=== PATIENT | female | born 1980 | race Caucasian/White ===

== ENCOUNTER 2022-08-25 20:44 | Observation (INO) | payer OTHER, SELFPAY ==
[2022-08-25 20:55] VITALS: BP 115/88; PULSE 88; RESP 18; TEMP 36.6; O2SAT 98; BMI 44.6
--- NOTE | 2022-08-25 21:05 | ED.SKABFB1 ---
HPI - Skin/Abscess/Foreign Bdy General Chief complaint: Skin/Abscess/Foreign Body Stated complaint: POSS SEPSIS Time Seen by Provider: 08/25/22 21:03 Source: patient Mode of arrival: walk-in Limitations: no limitations History of Present Illness HPI narrative: I and D abscess left thigh/buttocks yesterday at [facility]. Given dose of Clindamycin in the ER yesterday. Prescribed Clindamycin but states pharmacy did not have clindamycin. Was seen by her PCP today in the office with fever and vital signs concerning for sepsis and was advised to come to the hospital for evaluation. Still has pain at her incision site. States she squeezed it earlier and got mostly blood. Used Ibuprofen before coming in for her fever. Denies nausea or vomiting. She is diabetic Related Data Home Medications Medication Instructions Recorded Confirmed alprazolam 1 mg tablet (Xanax) 1 mg PO BID 08/25/22 08/25/22 aspirin 81 mg tablet,delayed 81 mg PO DAILY 08/25/22 08/25/22 release atorvastatin 80 mg tablet 80 mg PO DAILY 08/25/22 08/25/22 buspirone 5 mg tablet 5 mg PO BID 08/25/22 08/25/22 clopidogrel 75 mg tablet (Plavix) 75 mg PO DAILY 08/25/22 08/25/22 empagliflozin 25 mg tablet 25 mg PO DAILY 08/25/22 08/25/22 (Jardiance) ezetimibe 10 mg tablet 10 mg PO DAILY 08/25/22 08/25/22 hydroxyzine pamoate 25 mg capsule 25 mg PO BID 08/25/22 08/25/22 insulin glargine 100 unit/mL (3 15 unit subcut QAM 08/25/22 08/25/22 mL) subcutaneous pen (Lantus Solostar U-100 Insulin) losartan 25 mg tablet 25 mg PO DAILY 08/25/22 08/25/22 metformin 1,000 mg tablet 1,000 mg PO BID 08/25/22 08/25/22 metoprolol succinate 25 mg 25 mg PO DAILY 08/25/22 08/25/22 tablet,extended release 24 hr munjuaro 10 mg IM .weekly 08/25/22 08/25/22 omeprazole 20 mg capsule,delayed 20 mg PO DAILY 08/25/22 08/25/22 release Allergies Allergy/AdvReac Type Severity Reaction Status Date / Time No Known Drug Allergies Allergy Verified 08/25/22 21:01 Review of Systems ROS Status of ROS 10 or more systems reviewed and unremarkable except as noted in history and below Constitutional Reports: fever and chills [facility] Medical History (Updated 08/25/22 @ 22:05 by Carlos Mack MD) Surgical History (Updated 08/25/22 @ 21:25 by Fletcher Jeff) Exam Constitutional Vital Signs - 24 hr 08/25/22 20:55 Temperature 97.9 F Pulse Rate [Monitor] 88 Respiratory Rate 18 Blood Pressure [Right Arm] 115/88 H Pulse Oximetry 98 Oxygen Delivery Method Room Air Common normals: no apparent distress, oriented x3, no limitations and alert HENMT Common normals: normocephalic and head/scalp atraumatic Eye Common normals: EOMs intact bilaterally and conjunctivae normal Respiratory Common normals: normal respiratory effort, no retractions, no use of accessory muscles and clear to auscultation bilaterally Cardio Common normals: regular rate, regular rhythm, S1 normal heart sound and S2 normal heart sound GI Common normals: Normal to inspection, nondistended, normoactive bowel sounds present and non-tender Extremity Other: incision left upper thigh/buttocks region. No surrounding erythema. site is tender Neuro Common normals: oriented x3, moves all extremities, no focal motor deficits and no sensory deficits noted Psych Appearance: grossly normal Course Vital Signs Vital signs: Vital Signs Temperature 97.9 F 08/25/22 20:55 Pulse Rate 88 08/25/22 20:55 Respiratory Rate 18 08/25/22 20:55 Blood Pressure 115/88 H 08/25/22 20:55 Pulse Oximetry 98 08/25/22 20:55 Oxygen Delivery Method Room Air 08/25/22 20:55 Temperature 97.9 F 08/25/22 20:55 Pulse Rate 88 08/25/22 20:55 Respiratory Rate 18 08/25/22 20:55 Blood Pressure 115/88 H 08/25/22 20:55 Pulse Oximetry 98 08/25/22 20:55 Oxygen Delivery Method Room Air 08/25/22 20:55 MDM - Skin/Abscess/Foreign Bdy MDM Narrative Medical decision making narrative: patient presents complaining of pain and fever. s/p I and D left thigh/buttocks abscess last pM. Still has pain and drainage. Fever at home and tachycardia when she was seen by her PCP. Not able to get clindamycin that was prescribed for her and has not had antibiotics since last PM. CBC, BMP results discussed with hospitalist. patient given morphine for pain and clindamycin 900mg IVPB. Patient admitted for observation to med/surg Lab Data Labs: Lab Results 08/25/22 Range/Units 21:10 WBC 8.9 (4.0-11.0) 10^3/uL RBC 5.36 (4.20-5.40) 10^6/uL Hgb 15.8 (12.0-16.0) g/dL Hct 46.8 (36.0-48.0) % MCV 87.3 (81.0-99.0) fL MCH 29.5 (26.7-34.0) pg MCHC 33.8 (29.9-35.2) g/dL RDW 13.4 (11.0-15.0) % Plt Count 254 (150-450) 10^3/uL MPV 10.1 (9.5-13.5) fL Neut % (Auto) 54.4 (43.0-75.0) % Lymph % (Auto) 36.2 (20.5-60.0) % [place] % (Auto) 5.3 (1.7-12.0) % Eos % (Auto) 3.0 (0.9-7.0) % Baso % (Auto) 0.8 (0.2-2.0) % Neut # (Auto) 4.9 (1.4-6.5) 10^3/uL Lymph # (Auto) 3.2 (1.2-3.8) 10^3/uL [place] # (Auto) 0.5 (0.3-0.8) 10^3/uL Eos # (Auto) 0.3 (0.0-0.7) 10^3/uL Baso # (Auto) 0.1 (0.0-0.1) 10^3/uL Abs Immat Gran (auto) 0.03 (0.00-0.03) 10^3/uL Imm/Tot Granulo (auto) 0.3 (0.0-0.5) % Sodium 140 (136-145) mmol/L Potassium 3.9 (3.5-5.1) mmol/L Chloride 104 (98-107) mmol/L Carbon Dioxide 24.5 (21.0-32.0) mmol/L Anion Gap 15.4 BUN 22.0 H (7.0-18.0) mg/dL Creatinine 0.82 (0.55-1.02) mg/dL Est GFR ( Amer) >60 (>=60) Est GFR (Non-Af Amer) >60 (>=60) BUN/Creatinine Ratio 26.8 Glucose 115 H (74-106) mg/dL Lactate 1.6 (0.4-2.0) mmol/L Calcium 9.6 (8.5-10.1) mg/dL Total Bilirubin 0.4 (0.2-1.0) mg/dL AST 25 (15-37) U/L ALT 23 (14-59) U/L Alkaline Phosphatase 147 H (46-116) U/L Total Protein 7.9 (6.4-8.2) g/dL Albumin 3.9 (3.4-5.0) g/dL Globulin 4.0 g/dL Albumin/Globulin Ratio 1.0 Discharge Plan Discharge Chief Complaint: Skin/Abscess/Foreign Body Clinical Impression: Abscess of buttock, left Patient Disposition: Admitted as Observation
[2022-08-25 21:18] LABS: Basophils Absolute Auto 0.1 10^3/uL (0.0-0.1); Basophils Percent Auto 0.8 % (0.2-2.0); Eosinophils Absolute Auto 0.3 10^3/uL (0.0-0.7); Hematocrit 46.8 % (36.0-48.0); Hemoglobin 15.8 g/dL (12.0-16.0); Immature Granulocytes Abs Auto 0.03 10^3/uL (0.00-0.03); Immature Granulocytes Pct Auto 0.3 % (0.0-0.5); Lymphocytes Absolute Auto 3.2 10^3/uL (1.2-3.8); Lymphocytes Percent Auto 36.2 % (20.5-60.0); Mean Corpuscular HGB Conc 33.8 g/dL (29.9-35.2); Mean Corpuscular Hemoglobin 29.5 pg (26.7-34.0); Mean Corpuscular Volume 87.3 fL (81.0-99.0); Mean Platelet Volume 10.1 fL (9.5-13.5); Monocytes Absolute Auto 0.5 10^3/uL (0.3-0.8); Monocytes Percent Auto 5.3 % (1.7-12.0); Neutrophils Absolute Auto 4.9 10^3/uL (1.4-6.5); Neutrophils Percent Auto 54.4 % (43.0-75.0); Platelet Count 254 10^3/uL (150-450); Red Blood Count 5.36 10^6/uL (4.20-5.40); Red Cell Distribution Width 13.4 % (11.0-15.0); White Blood Count 8.9 10^3/uL (4.0-11.0)
[2022-08-25] MEDS: CLINDAMYCIN PHOSPHATE/D5W 900 MG/50 ML PIGGYBACK 100 MG IV (21:23)
[2022-08-25 21:32] LABS: Alanine Aminotransferase 23 U/L (14-59); Albumin Level 3.9 g/dL (3.4-5.0); Alkaline Phosphatase 147 U/L (46-116); Anion Gap 15.4; Aspartate Amino Transferase 25 U/L (15-37); BUN Creatinine Ratio 26.8; Bilirubin Total 0.4 mg/dL (0.2-1.0); Calcium 9.6 mg/dL (8.5-10.1); Carbon Dioxide 24.5 mmol/L (21.0-32.0); Chloride 104 mmol/L (98-107); Estimated GFR (African America >60 (>=60); Estimated GFR (Non-African Ame >60 (>=60); Glucose 115 mg/dL (74-106); Potassium 3.9 mmol/L (3.5-5.1); Sodium 140 mmol/L (136-145); Total Protein 7.9 g/dL (6.4-8.2)
[2022-08-25 21:35] LABS: Lactate/Lactic Acid 1.6 mmol/L (0.4-2.0)
[2022-08-25] MEDS: ONDANSETRON PF 4 MG/2 ML VIAL IV (21:53)
[2022-08-25] MEDS: 0.9 % SODIUM CHLORIDE 1,000 ML 999 ML IV (21:53)
[2022-08-25] MEDS: MORPHINE SULFATE 4 MG/ML VIAL IV (21:53)
[2022-08-25 22:30] VITALS: BP 96/67; PULSE 80; RESP 14; TEMP 36.6; O2SAT 95
[2022-08-25 22:36] VITALS: BP 96/67; PULSE 80; RESP 14; TEMP 36.4; O2SAT 95; BMI 45.6
[2022-08-25 22:38] VITALS: PULSE 86; RESP 16; O2SAT 99
[2022-08-25 23:12] VITALS: BP 96/67; PULSE 80; RESP 14; TEMP 36.4; O2SAT 95
[2022-08-25 23:20] VITALS: O2SAT 94
[2022-08-26] MEDS: LACTATED RINGER'S SOLUTION 1,000 ML 125 ML IV ×2 (01:02→10:16)
[2022-08-26] MEDS: MORPHINE SULFATE 2 MG/ML SYRINGE IV ×4 (01:12→14:26)
[2022-08-26] MEDS: CLINDAMYCIN PHOSPHATE/D5W 300 MG/50 ML PIGGYBACK 100 MG IV ×3 (01:15→12:53)
[2022-08-26 04:40] VITALS: O2SAT 93
[2022-08-26] MEDS: ONDANSETRON PF 4 MG/2 ML VIAL IV ×2 (05:30→12:55)
[2022-08-26 06:00] VITALS: BP 102/76; PULSE 67; RESP 16; TEMP 36.6; O2SAT 96
[2022-08-26] MEDS: HYDROXYZINE PAMOATE 25 MG CAPSULE PO (09:02)
[2022-08-26] MEDS: ALPRAZOLAM 1 MG TABLET PO (09:02)
[2022-08-26] MEDS: OMEPRAZOLE 20 MG CAPSULE.DR PO (09:02)
[2022-08-26] MEDS: CANAGLIFLOZIN 100 MG TABLET 300 MG PO (09:02)
[2022-08-26] MEDS: EZETIMIBE 10 MG TABLET PO (09:02)
[2022-08-26] MEDS: BUSPIRONE HCL 10 MG TABLET 5 MG PO (09:03)
[2022-08-26] MEDS: METFORMIN HCL 500 MG TABLET 1000 MG PO (09:04)
[2022-08-26] MEDS: METOPROLOL SUCCINATE 25 MG TAB.ER.24H PO (09:04)
[2022-08-26] MEDS: LOSARTAN POTASSIUM 25 MG TABLET PO (09:04)
[2022-08-26] MEDS: ATORVASTATIN CALCIUM 40 MG TABLET 80 MG PO (09:04)
[2022-08-26] MEDS: CLOPIDOGREL BISULFATE 75 MG TABLET PO (09:04)
[2022-08-26] MEDS: ENOXAPARIN SODIUM 40 MG/0.4 ML SYRINGE SUBQ (09:04)
[2022-08-26] MEDS: INSULIN DETEMIR 300 UNIT/3 ML INSULN.PEN 10 UNIT SUBQ (09:05)
--- NOTE | 2022-08-26 12:42 | CM.NOTE ---
Rounds made with charly Heller for discharge today.
--- NOTE | 2022-08-26 14:56 | P.HP_ITS ---
H&P: HPI History of Present Illness Chief complaint: POSS SEPSIS,abscess of buttock-left Narrative: HPI and hospital course: 41 y o with hx of T2 DM, CAD and recurrent cutaneous abscess developed skin asbcess over her left inner thigh and had I&D for it at [facility] and was sent home from ED afterwards but then she continued to have pain, fever, diaphoresis and purulent discharge from abscess and was sent to ED from office when I saw her last evening for possible sepsis. She was evaluated in ED and was admitted for observation. Patient received IV fluids, IV clindamycin and narcotics for pain control. No overnight events. Stable hemodynamics. Medically stable for discharge. ' Admission Diagnosis Cellulitis/abscess of buttocks HTN T2 DM CAD HLD JARAD Discharge Diagnosis as above Discharge status stable Review of Systems ROS Status of ROS 10 or more systems reviewed and unremarkable except as noted in history and below [facility] Medical History Surgical History Family History Mother Family history of CHF (congestive heart failure) Father Family history of hypertension Family/Other Family history of hypertension Social History Do you think of yourself as: straight/heterosexual Gender Identity: female Meds Home Medications and Allergies Home Medications Medication Instructions Recorded Confirmed Type alprazolam 1 mg tablet (Xanax) 0.5 mg PO BID 08/25/22 08/26/22 History aspirin 81 mg tablet,delayed 81 mg PO DAILY 08/25/22 08/25/22 History release atorvastatin 80 mg tablet 80 mg PO DAILY 08/25/22 08/25/22 History buspirone 5 mg tablet 5 mg PO BID 08/25/22 08/25/22 History clopidogrel 75 mg tablet (Plavix) 75 mg PO DAILY 08/25/22 08/25/22 History empagliflozin 25 mg tablet 25 mg PO DAILY 08/25/22 08/25/22 History (Jardiance) ezetimibe 10 mg tablet 10 mg PO DAILY 08/25/22 08/25/22 History hydroxyzine pamoate 25 mg capsule 25 mg PO BID 08/25/22 08/25/22 History insulin glargine 100 unit/mL (3 15 unit subcut .QHS 08/25/22 08/26/22 History mL) subcutaneous pen (Lantus Solostar U-100 Insulin) losartan 25 mg tablet 25 mg PO DAILY 08/25/22 08/25/22 History metformin 1,000 mg tablet 1,000 mg PO BID 08/25/22 08/25/22 History metoprolol succinate 25 mg 25 mg PO DAILY 08/25/22 08/25/22 History tablet,extended release 24 hr munjuaro 10 mg IM .weekly 08/25/22 08/25/22 History omeprazole 20 mg capsule,delayed 20 mg PO DAILY 08/25/22 08/25/22 History release clindamycin HCl 300 mg capsule 300 mg PO Q6H 7 days #28 caps 08/26/22 Rx gabapentin 400 mg capsule 400 mg PO .q8 08/26/22 08/26/22 History Allergies Allergy/AdvReac Type Severity Reaction Status Date / Time No Known Drug Allergies Allergy Verified 08/25/22 21:01 Exam Constitutional Vital Signs - 24 hr 08/25/22 20:55 08/25/22 22:30 08/26/22 06:00 Temperature 97.9 F 97.8 F 97.8 F Pulse Rate 80 67 Pulse Rate [Monitor] 88 Respiratory Rate 18 14 16 Blood Pressure [Left Arm] 102/76 Blood Pressure [Right Arm] 115/88 H 96/67 Pulse Oximetry 98 95 96 Oxygen Delivery Method Room Air 08/25/22 23:12 08/25/22 22:36 08/25/22 22:36 Temperature 97.6 F 97.6 F Pulse Rate 80 80 Pulse Rate [Monitor] 80 Respiratory Rate 14 14 Blood Pressure [Left Arm] Blood Pressure [Right Arm] 96/67 96/67 Pulse Oximetry 95 95 95 Oxygen Delivery Method Room Air Room Air Room Air 08/25/22 22:38 08/25/22 23:20 08/26/22 04:40 Temperature Pulse Rate Pulse Rate [Monitor] 86 Respiratory Rate 16 Blood Pressure [Left Arm] Blood Pressure [Right Arm] Pulse Oximetry 99 94 L 93 L Oxygen Delivery Method Room Air Room Air Room Air Documenting provider has reviewed patient's vital signs: yes Common normals: no apparent distress General appearance: cooperative Nutritional appearance: obese [facility] Common normals: normocephalic and head/scalp atraumatic Eye Common normals: conjunctivae normal and no scleral icterus Respiratory Common normals: normal respiratory effort, no use of accessory muscles and clear to auscultation bilaterally Cardio Common normals: no JVD, regular rhythm, S1 normal heart sound, S2 normal heart sound and no murmurs GI Common normals: Normal to inspection, nondistended, normoactive bowel sounds present, non-tender and no hepatosplenomegaly Extremity Other: Small area of induration, small open wound - no sig drainage or blood. Painful to touch location left inner thigh close to buttocks Neuro Common normals: oriented x3, moves all extremities, no focal motor deficits and no sensory deficits noted Sensorium/orientation: awake and alert Psych Common normals: mental status grossly normal, thought process normal, cooperative, denies hallucinations, denies homicidal ideation and denies suicidal ideation Results Labs Labs: Short CBC 08/25/22 Range/Units 21:10 WBC 8.9 (4.0-11.0) 10^3/uL Hgb 15.8 (12.0-16.0) g/dL Hct 46.8 (36.0-48.0) % Plt Count 254 (150-450) 10^3/uL BMP 08/25/22 21:10 Sodium 140 Potassium 3.9 Chloride 104 Carbon Dioxide 24.5 BUN 22.0 H Creatinine 0.82 Glucose 115 H Calcium 9.6 Liver Function 08/25/22 Range/Units 21:10 Total Bilirubin 0.4 (0.2-1.0) mg/dL AST 25 (15-37) U/L ALT 23 (14-59) U/L Alkaline Phosphatase 147 H (46-116) U/L Albumin 3.9 (3.4-5.0) g/dL Assessment and Plan Assessment and Plan (1) CAD (coronary artery disease): Assessment and Plan: stable. No CP, SOB. c/W asa,plavix (2) Abscess of buttock, left: Assessment and Plan: stable hemodynamics. Improving. Poorly controlled pain - called in percocet for pain control. Patient to f/u with PCP in one week. C/w clindamycin (3) Diabetes: Assessment and Plan: c/w home meds Qualifiers: Diabetes mellitus type: type 2 Diabetes mellitus ocean transportation intermediary insulin use: with shelter use Diabetes mellitus complication status: without complication Qualified Code(s): E11.9 - Type 2 diabetes mellitus without complications; Z79.4 - custodial (current) use of insulin (4) HTN (hypertension): Assessment and Plan: stable. c/w home meds Qualifiers: Hypertension type: primary hypertension Qualified Code(s): I10 - Essential (primary) hypertension (5) HLD (hyperlipidemia): Assessment and Plan: c/w lipitor and zetia (6) JARAD (generalized anxiety disorder): Assessment and Plan: c/w home meds. Outpatient f/u
--- NOTE | 2022-08-27 15:31 | CM.DCFOLLOWU ---
Person spoke with: Lyssa How are you feeling? still very weak How is your pain? Better controlled today Did you understand your discharge instructions? yes Do you have any questions about your discharge instructions? No Were you given any prescriptions at discharge? Yes Were you able to get your prescriptions filled? Yes Do you understand how to take your medications as ordered? Yes Do you have any questions about your follow up appointment and do you plan to keep your follow up appointment? No Yanet is out of town but left message with office today awaiting to schedule. Is there anything else that you would like to discuss? No Questions/Comments/Concerns/Other: None
== END 2022-08-26 15:49 | disposition home or self-care (01) ==
LOC: ER 22:05 → MS 22:20
PROVIDERS: Admitting Provider Internal Medicine; Emergency Provider Internal Medicine; PCP Nurse Practitioner; Visit Provider Internal Medicine
DX: L03.317 Cellulitis of buttock (principal); L02.31 Cutaneous abscess of buttock; I10 Essential (primary) hypertension; E11.9 Type 2 diabetes mellitus without complications; I25.10 Atherosclerotic heart disease of native coronary artery without angina pectoris; E78.5 Hyperlipidemia, unspecified; F41.1 Generalized anxiety disorder; E66.9 Obesity, unspecified; Z68.42 Body mass index [BMI] 45.0-49.9, adult; Z79.82 Long term (current) use of aspirin; Z79.899 Other long term (current) drug therapy; Z79.4 Long term (current) use of insulin; Z79.84 Long term (current) use of oral hypoglycemic drugs
CPT/HCPCS: 36415; 80053; 83605; 85025; 87040; 94761; 96372; 96374; 96375; 96376; 99285; G0378

== ENCOUNTER 2022-10-02 17:29 | Emergency (ER) | payer OTHER, SELFPAY ==
[2022-10-02 17:31] VITALS: BP 112/82; PULSE 77; RESP 20; TEMP 36.6; O2SAT 97; BMI 46.3
--- NOTE | 2022-10-02 17:46 | CT_ITS ---
[address] [address] Patient Name: TISH VARGAS MRN: [id number] date: 1980 Sex: F Assigned Patient Location: ER Current Patient Location: [facility] Accession/Order Number: [id number] Exam Date: 10/02/2022 18:03 Report Date: 10/02/2022 18:41 At the request of: ANIKET BESS Procedure: CT abdomen pelvis wo con EXAM: CT abdomen pelvis wo con HISTORY: kidney stone COMPARISON: None. TECHNIQUE: Axial CT imaging was performed through the abdomen and pelvis without intravenous contrast. Multiplanar reformats were performed. Dose reduction techniques were achieved by using automated exposure control and/or adjustment of mA and/or kV according to patient size and/or use of iterative reconstruction technique. FINDINGS: Lung bases: Lung bases are clear. No pleural effusion. GI upper: Unremarkable. Liver: Normal size and contour. Gallbladder: No significant abnormality. No cholelithiasis. Biliary system: No intra or extrahepatic biliary ductal dilatation. Spleen: Normal size. Pancreas: Unremarkable. Adrenal glands: Normal adrenal glands. Kidneys/ureters: Normal contours. No hydronephrosis. There are multiple 0.2 cm nonobstructing left renal stones. There is a 1.2 cm right renal simple cyst. Vessels: No aneurysm. Lymph Nodes: No lymphadenopathy. Small bowel: No wall thickening or dilatation. Colon: No wall thickening or dilatation. Appendix: No findings of appendicitis. Peritoneal cavity: No free fluid or pneumoperitoneum. Lower : Unremarkable. Bones: No acute bony abnormality. Soft tissues: No acute finding. Additional findings: None. CT/CT abdomen pelvis wo con IMPRESSION: Multiple 0.2 cm nonobstructing left renal stones. Electronically authenticated by: JOLANTA ADAME Date: 10/02/2022 18:41
--- NOTE | 2022-10-02 17:48 | ED.ABDPAIN1 ---
HPI - Abdominal Pain General Chief Complaint: Abdominal Pain Stated Complaint: KIDNEY STONE Time Seen by Provider: 10/02/22 17:39 Source: patient Mode of arrival: walk-in Limitations: no limitations History of Present Illness HPI narrative: patient is a 41-year-old female who presents to the emergency department for right flank pain that began three hours ago. She states she has a history of kidney stones, last stone was passed approximately 2-3 years ago. She has had to have lithotripsy, stenting but has also been able to pass kidney stones on her own in the past. She sees Dr. Martinez for urology. She states her dropped her off to the Emergency Room today. She reports nausea but no fevers or vomiting. Her urine has had some blood in it. She has had a previous hysterrectomy. No medications taken prior to arrival. Related Data Home Medications Medication Instructions Recorded Confirmed alprazolam 1 mg tablet (Xanax) 0.5 mg PO BID 08/25/22 08/26/22 aspirin 81 mg tablet,delayed 81 mg PO DAILY 08/25/22 08/25/22 release atorvastatin 80 mg tablet 80 mg PO DAILY 08/25/22 08/25/22 buspirone 5 mg tablet 5 mg PO BID 08/25/22 08/25/22 clopidogrel 75 mg tablet (Plavix) 75 mg PO DAILY 08/25/22 08/25/22 empagliflozin 25 mg tablet 25 mg PO DAILY 08/25/22 08/25/22 (Jardiance) ezetimibe 10 mg tablet 10 mg PO DAILY 08/25/22 08/25/22 hydroxyzine pamoate 25 mg capsule 25 mg PO BID 08/25/22 08/25/22 insulin glargine 100 unit/mL (3 15 unit subcut .QHS 08/25/22 08/26/22 mL) subcutaneous pen (Lantus Solostar U-100 Insulin) losartan 25 mg tablet 25 mg PO DAILY 08/25/22 08/25/22 metformin 1,000 mg tablet 1,000 mg PO BID 08/25/22 08/25/22 metoprolol succinate 25 mg 25 mg PO DAILY 08/25/22 08/25/22 tablet,extended release 24 hr munjuaro 10 mg IM .weekly 08/25/22 08/25/22 omeprazole 20 mg capsule,delayed 20 mg PO DAILY 08/25/22 08/25/22 release gabapentin 400 mg capsule 400 mg PO .q8 08/26/22 08/26/22 Previous Rx's Medication Instructions Recorded clindamycin HCl 300 mg capsule 300 mg PO Q6H 7 days #28 caps 08/26/22 cephalexin 500 mg capsule 500 mg PO Q8H 7 days #21 caps 10/02/22 ondansetron 4 mg disintegrating 4 mg PO Q6H PRN nausea and 10/02/22 tablet vomiting #12 tabs oxycodone-acetaminophen 5 mg-325 1 tab PO Q6H PRN pain #6 tabs 10/02/22 mg tablet (Percocet) Allergies Allergy/AdvReac Type Severity Reaction Status Date / Time No Known Drug Allergies Allergy Verified 08/25/22 21:01 Review of Systems ROS Constitutional Denies: fever or chills Ears, nose, mouth, and throat Denies: throat pain Cardiovascular Denies: chest pain Respiratory Denies: shortness of breath or cough Gastrointestinal Reports: abdominal pain and nausea; Denies: vomiting Musculoskeletal Reports: back pain Integumentary/Breast Denies: rash Endocrine Denies: excessive urination Allergic/Immunologic Denies: hives [facility] Medical History Surgical History Family History Mother Family history of CHF (congestive heart failure) Father Family history of hypertension Family/Other Family history of hypertension Social History Smoking status: Former smoker Do you think of yourself as: straight/heterosexual Gender Identity: female Exam Narrative Exam Narrative: Gen.: Awake, alert, in no distress, uncomfortable Head: Normocephalic, atraumatic ENT: Moist mucous membranes Respiratory: No respiratory distress, lungs clear bilaterally Cardio: Regular rate and rhythm Gastrointestinal: Abdomen is soft, nondistended and nontender to palpation Back: diffuse tenderness of the right flank with no specific CVA tenderness Extremities: Moves extremities equally, no injuries noted Psych: anxious, tearful Neuro: No focal neuro deficit Skin: Warm, dry, intact Constitutional Vital Signs, click to edit/add: Last Vital Signs Temp 98 F 10/02/22 17:31 Pulse 77 10/02/22 17:31 Resp 20 10/02/22 17:31 BP 112/82 H 10/02/22 17:31 Pulse Ox 97 10/02/22 17:31 O2 Del Method Room Air 10/02/22 17:31 Course Vital Signs Vital signs: Vital Signs Temperature 98 F 10/02/22 17:31 Pulse Rate 77 10/02/22 17:31 Respiratory Rate 20 10/02/22 17:31 Blood Pressure 112/82 H 10/02/22 17:31 Pulse Oximetry 97 10/02/22 17:31 Oxygen Delivery Method Room Air 10/02/22 17:31 Temperature 98 F 10/02/22 17:31 Pulse Rate 77 10/02/22 17:31 Respiratory Rate 20 10/02/22 17:31 Blood Pressure 112/82 H 10/02/22 17:31 Pulse Oximetry 97 10/02/22 17:31 Oxygen Delivery Method Room Air 10/02/22 17:31 MDM - Abdominal Pain MDM Narrative Medical decision making narrative: patient was treated with IV fluids, Toradol, Dilaudid, Zofran. Lab studies show minimal leukocytosis but elevated lactic acid. she was given an additional liter of fluid, IV morphine for pain control. Urine specimen shows small bacteria and blood in her urine with ketones, protein. CT of the abdomen and pelvis with no evidence of ureteral stone or hydronephrosis. Patient has two small stones in the left kidney but no evidence of right-sided stones or recently passed stones. She was treated with IV Rocephin for early infection. Reevaluated by attending physician prior to discharge. Medical Records Attestation: I reviewed the patient's medical records. Lab Data Attestation: I reviewed the patient's lab results. Labs: Lab Results 10/02/22 10/02/22 10/02/22 Range/Units 17:50 17:55 20:06 WBC 12.2 H (4.0-11.0) 10^3/uL RBC 5.14 (4.20-5.40) 10^6/uL Hgb 15.1 (12.0-16.0) g/dL Hct 45.8 (36.0-48.0) % MCV 89.1 (81.0-99.0) fL MCH 29.4 (26.7-34.0) pg MCHC 33.0 (29.9-35.2) g/dL RDW 14.2 (11.0-15.0) % Plt Count 298 (150-450) 10^3/uL MPV 10.4 (9.5-13.5) fL Neut % (Auto) 58.5 (43.0-75.0) % Lymph % (Auto) 32.6 (20.5-60.0) % [place] % (Auto) 5.9 (1.7-12.0) % Eos % (Auto) 1.8 (0.9-7.0) % Baso % (Auto) 0.5 (0.2-2.0) % Neut # (Auto) 7.1 H (1.4-6.5) 10^3/uL Lymph # (Auto) 4.0 H (1.2-3.8) 10^3/uL [place] # (Auto) 0.7 (0.3-0.8) 10^3/uL Eos # (Auto) 0.2 (0.0-0.7) 10^3/uL Baso # (Auto) 0.1 (0.0-0.1) 10^3/uL Abs Immat Gran (auto) 0.08 H (0.00-0.03) 10^3/uL Imm/Tot Granulo (auto) 0.7 H (0.0-0.5) % Sodium 141 (136-145) mmol/L Potassium 4.1 (3.5-5.1) mmol/L Chloride 104 (98-107) mmol/L Carbon Dioxide 25.6 (21.0-32.0) mmol/L Anion Gap 15.5 BUN 21.0 H (7.0-18.0) mg/dL Creatinine 1.13 H (0.55-1.02) mg/dL Est GFR ( Amer) >60 (>=60) Est GFR (Non-Af Amer) 53 L (>=60) BUN/Creatinine Ratio 18.6 Glucose 125 H (74-106) mg/dL Lactate 3.1 H* 1.5 (0.4-2.0) mmol/L Calcium 10.0 (8.5-10.1) mg/dL Total Bilirubin 0.5 (0.2-1.0) mg/dL AST 26 (15-37) U/L ALT 28 (14-59) U/L Alkaline Phosphatase 133 H (46-116) U/L Total Protein 7.8 (6.4-8.2) g/dL Albumin 4.3 (3.4-5.0) g/dL Globulin 3.5 g/dL Albumin/Globulin Ratio 1.2 Urine Color Dk. brown (YELLOW) Urine Clarity Clear (CLEAR) Urine pH 5.5 (5.0-9.0) Ur Specific [place] >=1.030 A (1.005-1.025) Urine Protein 100 A (NEG/TRACE) mg/dL Urine Glucose (UA) >=1000 A (NEGATIVE) mg/dL Urine Ketones Trace A (NEGATIVE) mg/dL Urine Occult Blood Large A (NEGATIVE) Urine Nitrite Negative (NEGATIVE) Urine Bilirubin Small A (NEGATIVE) Urine Urobilinogen 1.0 (0.2-1.0) EU/dL Ur Leukocyte Esterase Negative (NEGATIVE) Urine RBC 50-75 A (0-2) #/HPF Urine WBC None seen (NONE SEEN) #/HPF Ur Squamous Epith Cells Rare (NONE/RARE) #/LPF Urine Crystals None seen (None Seen) #/HPF Urine Bacteria Small A (NONE SEEN) #/HPF Urine Casts None seen (NONE SEEN) #/LPF Urine Mucus Small A (NONE SEEN) Ur Culture Indicated? Yes Imaging Data CT scan - abdomen: Attestation: I have reviewed the pertinent imaging results. Radiologist's impression: Procedure: CT abdomen pelvis wo con EXAM: CT abdomen pelvis wo con HISTORY: kidney stone COMPARISON: None. TECHNIQUE: Axial CT imaging was performed through the abdomen and pelvis without intravenous contrast. Multiplanar reformats were performed. Dose reduction techniques were achieved by using automated exposure control and/or adjustment of mA and/or kV according to patient size and/or use of iterative reconstruction technique. FINDINGS: Lung bases: Lung bases are clear. No pleural effusion. GI upper: Unremarkable. Liver: Normal size and contour. Gallbladder: No significant abnormality. No cholelithiasis. Biliary system: No intra or extrahepatic biliary ductal dilatation. Spleen: Normal size. Pancreas: Unremarkable. Adrenal glands: Normal adrenal glands. Kidneys/ureters: Normal contours. No hydronephrosis. There are multiple 0.2 cm nonobstructing left renal stones. There is a 1.2 cm right renal simple cyst. Vessels: No aneurysm. Lymph Nodes: No lymphadenopathy. Small bowel: No wall thickening or dilatation. Colon: No wall thickening or dilatation. Appendix: No findings of appendicitis. Peritoneal cavity: No free fluid or pneumoperitoneum. Lower : Unremarkable. Bones: No acute bony abnormality. Soft tissues: No acute finding. Additional findings: None. IMPRESSION: Multiple 0.2 cm nonobstructing left renal stones. Electronically authenticated by: JOLANTA ADAME Date: 10/02/2022 18:41 Discharge Plan Discharge Chief Complaint: Abdominal Pain Clinical Impression: Acute flank pain, UTI (urinary tract infection) Patient Disposition: Home, Self-Care Time of Disposition Decision: 20:49 Condition: Good Prescriptions / Home Meds: New cephalexin 500 mg capsule 500 mg PO Q8H 7 Days Qty: 21 0RF oxycodone-acetaminophen [Percocet] 5-325 mg tablet 1 tab PO Q6H PRN (Reason: pain) Qty: 6 0RF Rx Instructions: DX. R10.9 ondansetron 4 mg tablet,disintegrating 4 mg PO Q6H PRN (Reason: nausea and vomiting) Qty: 12 0RF No Action metoprolol succinate 25 mg tablet extended release 24 hr 25 mg PO DAILY insulin glargine [Lantus Solostar U-100 Insulin] 100 unit/mL (3 mL) insulin pen 15 unit subcut .QHS munjuaro 10 mg IM .weekly ezetimibe 10 mg tablet 10 mg PO DAILY buspirone 5 mg tablet 5 mg PO BID clopidogrel [Plavix] 75 mg tablet 75 mg PO DAILY aspirin 81 mg tablet,delayed release (DR/EC) 81 mg PO DAILY atorvastatin 80 mg tablet 80 mg PO DAILY Jardiance 25 mg tablet 25 mg PO DAILY alprazolam [Xanax] 1 mg tablet 0.5 mg PO BID losartan 25 mg tablet 25 mg PO DAILY hydroxyzine pamoate 25 mg capsule 25 mg PO BID omeprazole 20 mg capsule,delayed release(DR/EC) 20 mg PO DAILY metformin 1,000 mg tablet 1,000 mg PO BID clindamycin HCl 300 mg capsule 300 mg PO Q6H 7 Days Qty: 28 0RF gabapentin 400 mg capsule 400 mg PO .q8 Instructions: Urinary Tract Infection in Women (ED), Flank Pain (ED) Stand Alone Forms: Portal Instructions Referrals: Yanet Junior [Primary Care Provider] - 1 week
[2022-10-02] MEDS: KETOROLAC TROMETHAMINE 30 MG/ML VIAL IVP (17:56)
[2022-10-02] MEDS: ONDANSETRON PF 4 MG/2 ML VIAL IV (17:56)
[2022-10-02] MEDS: HYDROMORPHONE HCL 1 MG/ML CARTRIDGE IVP (17:56)
[2022-10-02] MEDS: 0.9 % SODIUM CHLORIDE 1,000 ML 999 ML IV (17:56)
[2022-10-02 18:33] LABS: Basophils Absolute Auto 0.1 10^3/uL (0.0-0.1); Basophils Percent Auto 0.5 % (0.2-2.0); Eosinophils Absolute Auto 0.2 10^3/uL (0.0-0.7); Eosinophils Percent Auto 1.8 % (0.9-7.0); Hematocrit 45.8 % (36.0-48.0); Hemoglobin 15.1 g/dL (12.0-16.0); Immature Granulocytes Abs Auto 0.08 10^3/uL (0.00-0.03); Immature Granulocytes Pct Auto 0.7 % (0.0-0.5); Lymphocytes Percent Auto 32.6 % (20.5-60.0); Mean Corpuscular Hemoglobin 29.4 pg (26.7-34.0); Mean Corpuscular Volume 89.1 fL (81.0-99.0); Mean Platelet Volume 10.4 fL (9.5-13.5); Monocytes Absolute Auto 0.7 10^3/uL (0.3-0.8); Monocytes Percent Auto 5.9 % (1.7-12.0); Neutrophils Absolute Auto 7.1 10^3/uL (1.4-6.5); Neutrophils Percent Auto 58.5 % (43.0-75.0); Platelet Count 298 10^3/uL (150-450); Red Blood Count 5.14 10^6/uL (4.20-5.40); Red Cell Distribution Width 14.2 % (11.0-15.0); White Blood Count 12.2 10^3/uL (4.0-11.0)
[2022-10-02 18:34] LABS: Bilirubin Urine SMALL (NEGATIVE); Blood Urine LARGE (NEGATIVE); Clarity Urine CLEAR (CLEAR); Color Urine DK. BROWN (YELLOW); Glucose Urine UA >=1000 mg/dL (NEGATIVE); Ketones Urine TRACE mg/dL (NEGATIVE); Leukocyte Esterase Urine NEGATIVE (NEGATIVE); Nitrite Urine NEGATIVE (NEGATIVE); Protein Urine 100 mg/dL (NEG/TRACE); Specific Gravity Urine >=1.030 (1.005-1.025); pH Urine 5.5 (5.0-9.0)
[2022-10-02 18:39] LABS: Urine Microscopic Indicated YES
[2022-10-02 18:47] LABS: Bacteria Urine SMALL #/HPF (NONE SEEN); Mucus Urine SMALL (NONE SEEN); RBC Urine 50-75 #/HPF (0-2); WBC Urine NONE SEEN #/HPF (NONE SEEN)
[2022-10-02 18:48] LABS: Cast Seen? NONE SEEN #/LPF (NONE SEEN); Crystals Seen? None Seen #/HPF (None Seen); Squamous Epithelial Cell Urine RARE #/LPF (NONE/RARE); Urine Culture Indicated YES
[2022-10-02 18:55] LABS: Alanine Aminotransferase 28 U/L (14-59); Albumin Globulin Ratio 1.2; Albumin Level 4.3 g/dL (3.4-5.0); Alkaline Phosphatase 133 U/L (46-116); Anion Gap 15.5; Aspartate Amino Transferase 26 U/L (15-37); BUN Creatinine Ratio 18.6; Bilirubin Total 0.5 mg/dL (0.2-1.0); Carbon Dioxide 25.6 mmol/L (21.0-32.0); Chloride 104 mmol/L (98-107); Estimated GFR (African America >60 (>=60); Estimated GFR (Non-African Ame 53 (>=60); Globulin 3.5 g/dL; Glucose 125 mg/dL (74-106); Potassium 4.1 mmol/L (3.5-5.1); Sodium 141 mmol/L (136-145); Total Protein 7.8 g/dL (6.4-8.2)
[2022-10-02 19:05] LABS: Lactate/Lactic Acid 3.1 mmol/L (0.4-2.0)
[2022-10-02] MEDS: CEFTRIAXONE 1,000 MG in 0.9 % SODIUM CHLORIDE 50 ML 100 MG IV (19:27)
[2022-10-02] MEDS: 0.9 % SODIUM CHLORIDE 1,000 ML 1000 ML IV (19:27)
[2022-10-02] MEDS: MORPHINE SULFATE 4 MG/ML VIAL IV (19:56)
[2022-10-02 20:28] LABS: Lactate/Lactic Acid 1.5 mmol/L (0.4-2.0)
== END 2022-10-02 21:05 | disposition home or self-care (01) ==
PROVIDERS: Physician Assistant; Emergency Provider Emergency Medicine; PCP Nurse Practitioner
DX: N39.0 Urinary tract infection, site not specified (principal); R10.9 Unspecified abdominal pain; Z87.442 Personal history of urinary calculi; Z90.710 Acquired absence of both cervix and uterus; Z79.82 Long term (current) use of aspirin; Z79.4 Long term (current) use of insulin; Z79.84 Long term (current) use of oral hypoglycemic drugs; Z79.899 Other long term (current) drug therapy; Z87.891 Personal history of nicotine dependence
CPT/HCPCS: 36415; 74176; 80053; 81003; 81015; 83605; 85025; 87086; 96365; 96375; 99285; J1170

== ENCOUNTER 2023-07-30 15:34 | Emergency (ER) | payer OTHER, SELFPAY ==
[2023-07-30 15:44] VITALS: BP 136/102; PULSE 97; TEMP 37; O2SAT 100; BMI 41.6
[2023-07-30 16:16] VITALS: BP 102/82; PULSE 82; TEMP 36.7; BMI 23.9
--- NOTE | 2023-07-30 16:25 | ED.BACK1 ---
HPI HPI - Back Pain/Injury General Chief Complaint: Back Pain/Injury Stated Complaint: poss kidney stone, nausea, pain Time Seen by Provider: 07/30/23 16:21 Source: patient Mode of arrival: walk-in Limitations: no limitations History of Present Illness HPI Narrative: This patient is here complaining of severe left flank pain. Is been present for couple days. She seen some blood in her urine. She says she can actually feel the progress that her kidney stones are making. She has had several stenting procedures in the past and basket removal. She is not on any antibiotics. She took some Zofran before she got here. She takes Percocet at home. She does have a local urologist. She has no history of spinal injuries or problems. She also has no vascular disease in the aorta that she is aware of but she does have coronary artery disease. The pain is in the left flank rating to the left abdomen. Related Data Home Medications ?Medication ?Instructions ?Recorded ?Confirmed alprazolam 1 mg tablet (Xanax) 0.5 mg PO BID 08/25/22 08/26/22 aspirin 81 mg tablet,delayed 81 mg PO DAILY 08/25/22 08/25/22 release atorvastatin 80 mg tablet 80 mg PO DAILY 08/25/22 08/25/22 buspirone 5 mg tablet 5 mg PO BID 08/25/22 08/25/22 clopidogrel 75 mg tablet (Plavix) 75 mg PO DAILY 08/25/22 08/25/22 empagliflozin 25 mg tablet 25 mg PO DAILY 08/25/22 08/25/22 (Jardiance) ezetimibe 10 mg tablet 10 mg PO DAILY 08/25/22 08/25/22 hydroxyzine pamoate 25 mg capsule 25 mg PO BID 08/25/22 08/25/22 insulin glargine 100 unit/mL (3 15 unit subcut .QHS 08/25/22 08/26/22 mL) subcutaneous pen (Lantus Solostar U-100 Insulin) losartan 25 mg tablet 25 mg PO DAILY 08/25/22 08/25/22 metformin 1,000 mg tablet 1,000 mg PO BID 08/25/22 08/25/22 metoprolol succinate 25 mg 25 mg PO DAILY 08/25/22 08/25/22 tablet,extended release 24 hr munjuaro 10 mg IM .weekly 08/25/22 08/25/22 omeprazole 20 mg capsule,delayed 20 mg PO DAILY 08/25/22 08/25/22 release gabapentin 400 mg capsule 400 mg PO .q8 08/26/22 08/26/22 Previous Rx's ?Medication ?Instructions ?Recorded clindamycin HCl 300 mg capsule 300 mg PO Q6H 7 days #28 caps 08/26/22 cephalexin 500 mg capsule 500 mg PO Q8H 7 days #21 caps 10/02/22 ondansetron 4 mg disintegrating 4 mg PO Q6H PRN nausea and 10/02/22 tablet vomiting #12 tabs oxycodone-acetaminophen 5 mg-325 1 tab PO Q6H PRN pain #6 tabs 10/02/22 mg tablet (Percocet) Allergies Allergy/AdvReac Type Severity Reaction Status Date / Time No Known Drug Allergies Allergy Verified 07/30/23 15:43 Opioid HPI Opioid Management Most Recent Opioid Data: Last Pain Scale 10 10/02/22 17:56 Last ED Pain Assessment 07/30/23 16:22 [facility] Medical History Surgical History Family History Mother Family history of CHF (congestive heart failure) Father Family history of hypertension Family/Other Family history of hypertension Social History Smoking status: Former smoker Do you think of yourself as: straight/heterosexual Gender Identity: female Exam Narrative Exam Narrative: Patient awake alert appears uncomfortable. Holding her left flank area. Vital signs are stable and she is afebrile Examining heart and lungs show no acute findings. Peripheral perfusion is normal with no evidence of vascular ischemia to the extremities. No obvious findings are noted on the thoracic area. Constitutional Vital Signs, click to edit/add: Last Vital Signs Temp 98.0 F 07/30/23 16:16 Pulse 82 07/30/23 16:16 Resp 18 07/30/23 16:16 BP 102/82 07/30/23 16:16 Pulse Ox 100 07/30/23 15:44 O2 Del Method Room Air 07/30/23 16:16 Course Vital Signs Vital signs: Vital Signs Temperature 98.6 F 07/30/23 15:44 Pulse Rate 97 H 07/30/23 15:44 Respiratory Rate 24 H 07/30/23 15:44 Blood Pressure 136/102 H 07/30/23 15:44 Pulse Oximetry 100 07/30/23 15:44 Oxygen Delivery Method Room Air 07/30/23 15:44 Temperature 98.0 F 07/30/23 16:16 Pulse Rate 82 07/30/23 16:16 Respiratory Rate 18 07/30/23 16:16 Blood Pressure 102/82 07/30/23 16:16 Pulse Oximetry 100 07/30/23 15:44 Oxygen Delivery Method Room Air 07/30/23 16:16 MDM - Back Pain/Injury MDM Narrative Medical decision making narrative: With the patient's history of previous stones she was seen immediately given analgesics and sent to CT for further evaluation. There was quite a delay in getting CT interpretation back by the radiology department but essentially it was a normal study with small punctate stones but no indication of hydronephrosis. About assisted through the visit she requested more Dilaudid. There is no indication of pyelonephritis or kidney stone at this time these findings will be discussed with the patient. However the nursing staff indicates that she excused herself from the room and is out in the lobby drinking coffee. Discharge Plan Discharge Stand Alone Forms: Portal Instructions Chief Complaint: Back Pain/Injury Clinical Impression: Thoracic back pain Patient Disposition: Home, Self-Care Time of Disposition Decision: 18:54 Prescriptions / Home Meds: No Action metoprolol succinate 25 mg tablet extended release 24 hr 25 mg PO DAILY insulin glargine [Lantus Solostar U-100 Insulin] 100 unit/mL (3 mL) insulin pen 15 unit subcut .QHS munjuaro 10 mg IM .weekly ezetimibe 10 mg tablet 10 mg PO DAILY buspirone 5 mg tablet 5 mg PO BID clopidogrel [Plavix] 75 mg tablet 75 mg PO DAILY aspirin 81 mg tablet,delayed release (DR/EC) 81 mg PO DAILY atorvastatin 80 mg tablet 80 mg PO DAILY Jardiance 25 mg tablet 25 mg PO DAILY alprazolam [Xanax] 1 mg tablet 0.5 mg PO BID losartan 25 mg tablet 25 mg PO DAILY hydroxyzine pamoate 25 mg capsule 25 mg PO BID omeprazole 20 mg capsule,delayed release(DR/EC) 20 mg PO DAILY metformin 1,000 mg tablet 1,000 mg PO BID clindamycin HCl 300 mg capsule 300 mg PO Q6H 7 Days Qty: 28 0RF gabapentin 400 mg capsule 400 mg PO .q8 cephalexin 500 mg capsule 500 mg PO Q8H 7 Days Qty: 21 0RF oxycodone-acetaminophen [Percocet] 5-325 mg tablet 1 tab PO Q6H PRN (Reason: pain) Qty: 6 0RF Rx Instructions: DX. R10.9 ondansetron 4 mg tablet,disintegrating 4 mg PO Q6H PRN (Reason: nausea and vomiting) Qty: 12 0RF Print Language: Belarusian Additional Instructions: Nephro lithiasis Referrals: Yanet Junior NP [Primary Care Provider] - 1 week
--- NOTE | 2023-07-30 16:26 | CT_ITS ---
[address] [address] Patient Name: TISH VARGAS MRN: [id number] date: 1980 Sex: F Assigned Patient Location: ER Current Patient Location: ER Accession/Order Number: [id number] Exam Date: 07/30/2023 17:04 Report Date: 07/30/2023 18:17 At the request of: EMA SIERRA Procedure: CT abdomen pelvis wo con EXAM: CT abdomen pelvis wo con HISTORY: Kidney stone COMPARISON: 10/02/2022 TECHNIQUE: Axial CT imaging was performed through the abdomen and pelvis without intravenous contrast. Multiplanar reformats were performed. Dose reduction techniques were achieved by using automated exposure control and/or adjustment of mA and/or kV according to patient size and/or use of iterative reconstruction technique. FINDINGS: Lung bases: Lung bases are clear. No pleural effusion. GI upper: Unremarkable. Liver: Normal size and contour. Gallbladder: No significant abnormality. No cholelithiasis. Biliary system: No intra or extrahepatic biliary ductal dilatation. Spleen: Normal size. Pancreas: Unremarkable. Adrenal glands: Normal adrenal glands. Kidneys/ureters: Normal contours. No hydronephrosis. Punctate bilateral renal stones. Vessels: No aneurysm. Lymph Nodes: No lymphadenopathy. Small bowel: No wall thickening or dilatation. Colon: No wall thickening or dilatation. Appendix: Appendix is identified with normal appearance. Peritoneal cavity: No free fluid or pneumoperitoneum. Lower : Unremarkable. Bones: No acute bony abnormality. Soft tissues: No acute finding. Additional findings: None. CT/CT abdomen pelvis wo con IMPRESSION: Punctate bilateral renal stones. Electronically authenticated by: JOLANTA ADAME Date: 07/30/2023 18:17
[2023-07-30 16:34] LABS: Bilirubin Urine NEGATIVE (NEGATIVE); Blood Urine LARGE (NEGATIVE); Clarity Urine CLEAR (CLEAR); Color Urine YELLOW (YELLOW); Glucose Urine UA >=1000 mg/dL (NEGATIVE); Ketones Urine NEGATIVE (NEGATIVE); Leukocyte Esterase Urine NEGATIVE (NEGATIVE); Nitrite Urine NEGATIVE (NEGATIVE); Protein Urine NEGATIVE (NEG/TRACE); Specific Gravity Urine >=1.030 (1.005-1.025); Urobilinogen Urine 0.2 EU/dL (0.2-1.0)
[2023-07-30 16:40] LABS: Urine Microscopic Indicated YES
[2023-07-30 16:44] LABS: Bacteria Urine NONE SEEN #/HPF (NONE SEEN); Cast Seen? NONE SEEN #/LPF (NONE SEEN); Crystals Seen? None Seen #/HPF (None Seen); Mucus Urine NONE SEEN (NONE SEEN); Squamous Epithelial Cell Urine NONE SEEN #/LPF (NONE/RARE); WBC Urine NONE SEEN #/HPF (NONE SEEN)
--- NOTE | 2023-07-30 16:47 | ECG_ITS ---
[facility] Test Date: 2023-07-30 Pat Name: TISH VARGAS Department: Room: - Gender: Female [employer] Systems [employer]ator: : 1980 Requested By: SEEMA CHAIREZ Order Number: [id number] Reading MD: GORDON AGUAYO Measurements Intervals [place] Rate: 105 P: 67 NC: 188 QRS: 89 QRSD: 64 T: 53 QT: 306 QTc: 367 Interpretive Statements 1120 Sinus tachycardia 8102 Low QRS voltage in chest leads 9140 abnormal rhythm ECG Compared to ECG 09/06/2019 16:42:08 Low QRS voltage now present Sinus rhythm no longer present Electronically Signed On 07-30-2023 20:05:31 EDT by GORDON AGUAYO
[2023-07-30] MEDS: HYDROMORPHONE HCL 1 MG/ML CARTRIDGE IVP (16:54)
[2023-07-30] MEDS: KETOROLAC TROMETHAMINE 30 MG/ML VIAL IVP (16:55)
[2023-07-30] MEDS: 0.9 % SODIUM CHLORIDE 1,000 ML 100 ML IV (16:55)
[2023-07-30 17:05] LABS: Basophils Absolute Auto 0.1 10^3/uL (0.0-0.1); Basophils Percent Auto 0.8 % (0.2-2.0); Eosinophils Absolute Auto 0.2 10^3/uL (0.0-0.7); Eosinophils Percent Auto 3.2 % (0.9-7.0); Hematocrit 42.9 % (36.0-48.0); Hemoglobin 13.8 g/dL (12.0-16.0); Immature Granulocytes Abs Auto 0.01 10^3/uL (0.00-0.03); Immature Granulocytes Pct Auto 0.2 % (0.0-0.5); Lymphocytes Absolute Auto 2.1 10^3/uL (1.2-3.8); Lymphocytes Percent Auto 32.7 % (20.5-60.0); Mean Corpuscular HGB Conc 32.2 g/dL (29.9-35.2); Mean Corpuscular Volume 93.3 fL (81.0-99.0); Mean Platelet Volume 10.5 fL (9.5-13.5); Monocytes Absolute Auto 0.4 10^3/uL (0.3-0.8); Monocytes Percent Auto 6.1 % (1.7-12.0); Neutrophils Absolute Auto 3.6 10^3/uL (1.4-6.5); Platelet Count 196 10^3/uL (150-450); Red Cell Distribution Width 13.1 % (11.0-15.0); White Blood Count 6.3 10^3/uL (4.0-11.0)
[2023-07-30 17:21] LABS: Alanine Aminotransferase 15 U/L (14-59); Albumin Globulin Ratio 1.1; Albumin Level 3.6 g/dL (3.4-5.0); Alkaline Phosphatase 105 U/L (46-116); Anion Gap 15.1; Aspartate Amino Transferase 17 U/L (15-37); Bilirubin Total 0.4 mg/dL (0.2-1.0); Calcium 9.2 mg/dL (8.5-10.1); Carbon Dioxide 23.2 mmol/L (21.0-32.0); Chloride 106 mmol/L (98-107); Estimated GFR (African America >60 (>=60); Estimated GFR (Non-African Ame >60 (>=60); Globulin 3.2 g/dL; Glucose 88 mg/dL (74-106); Potassium 4.3 mmol/L (3.5-5.1); Sodium 140 mmol/L (136-145); Total Protein 6.8 g/dL (6.4-8.2)
[2023-07-30] MEDS: HYDROMORPHONE HCL 1 MG/ML CARTRIDGE IV (17:49)
[2023-07-30 18:45] VITALS: BP 106/52; PULSE 79; O2SAT 95
== END 2023-07-30 19:16 | disposition home or self-care (01) ==
PROVIDERS: Emergency Provider Emergency Medicine Emergency Medical Services; PCP Nurse Practitioner
DX: M54.6 Pain in thoracic spine (principal); I25.10 Atherosclerotic heart disease of native coronary artery without angina pectoris; Z79.82 Long term (current) use of aspirin; Z79.4 Long term (current) use of insulin; Z79.84 Long term (current) use of oral hypoglycemic drugs; Z79.02 Long term (current) use of antithrombotics/antiplatelets; Z87.891 Personal history of nicotine dependence
CPT/HCPCS: 36415; 74176; 80053; 81001; 85025; 93005; 96374; 96375; 96376; 99285; J1170

== ENCOUNTER 2023-10-03 17:25 | Observation (INO) | payer OTHER, SELFPAY ==
--- OUTSIDE RECORDS SUMMARY | 2023-10-03 17:32 | XMS_ITS | CCD ---
Author Organization [facility] Care Team Providers Care Land Surveyor Manager Name Role Phone YANET CHAIREZ Primary Care Physician [phone] Aleah Norton Unavailable Unavailable AICHHOLZ, FIELD MARKETING ASSOCIATE YANET Primary Care Unavailable GERMAINE DOW Admitting Unavailable GERMAINE DOW Attending Unavailable GERMAINE DOW Consulting Unavailable JULIO KOWALSKI Admitting Unavailable JULIO KOWALSKI Attending Unavailable AICHHOLZ, FIELD MARKETING ASSOCIATE YANET Primary Care Unavailable JONO, DR ERUM Raya Consulting Unavailable JULIO KOWALSKI Consulting Unavailable AICHHOLZ, FIELD MARKETING ASSOCIATE YANET Admitting Unavailable AICHHOLZ, FIELD MARKETING ASSOCIATE YANET Attending Unavailable AICHHOLZ, FIELD MARKETING ASSOCIATE YANET Primary Care Unavailable AICHHOLZ, FIELD MARKETING ASSOCIATE YANET Consulting Unavailable Tate Martinez MD Primary Care Provider Gunnar Rangel Attending Unavailable Kevin Nur Attending Unavailable Mikaela Judd Attending Unavailable Gunnar Rangel Attending Unavailable AICHHOLZ, YANET J Admitting Unavailable AICHHOLZ, YANET J Attending Unavailable AICHHOLZ, YANET J Admitting Unavailable AICHHOLZ, YANET J Attending Unavailable DoDO Janes barlow A Attending Unavailable AICHHOLZ, YANET J Primary Care Unavailable Clemente ORTIZ Attending Unavailable AICHHOLZ, YANET J Referring Unavailable DoDO Janes barlow A Attending Unavailable AICHHOLZ, YANET Attending Unavailable AICHHOLZ, YANET Attending Unavailable AICHHOLZ, YANET Attending Unavailable Juan Arnold Attending Unavailable Semaj QUINTEROS Attending Unavailable AICHHOLZ, YANET J Referring Unavailable AICHHOLZ, YANET J Admitting Unavailable AICHHOLZ, YANET J Attending Unavailable Juan Arnold Attending Unavailable YANET CHAIREZ Attending Unavailable YANET CHAIREZ Admitting Unavailable Kevin Nur Attending Unavailable Kevin Nur Attending Unavailable Allergies Allergy Classification Reported Allergen(s) Allergy Type Date of Onset Reaction(s) Facility (1 source) Acetaminophen / HYDROcodone; Translations: [acetaminophen-hyd rocodone] Drug Allergy Vomitus (substance) [facility] Medications Current Medications Medication Drug Class(es) Dates Sig (Normalized) Sig (Original) acetaminophen 325 mg / HYDROcodone bitartrate 5 mg oral tablet (2 sources) Opioid Agonist Start: 12-30-2020 Yoder 325 mg-5 mg oral tablet 1 tab(s), Oral, q6hr for pain, 2 tab(s), Refill(s) 0, [id number], 162, cm, 12/30/20 16:50:00 EDT, Height/Length Dosing, 118, kg, 12/30/20 16:50:00 EDT, Weight Dosing Start Date: 12/30/20 Status: Ordered acetaminophen 325 mg / oxyCODONE hydrochloride 5 mg oral tablet (20 sources) Opioid Agonist Start: 10-02-2023 Percocet 5 mg-325 mg oral tablet 1 tab(s), Oral, q6hr, 7 tab(s), Refill(s) 0, [id number], 160, cm, 10/02/23 12:44:00 EDT, Height/Length Dosing, 105.3, kg, 10/02/23 12:44:00 EDT, Weight Dosing Start Date: 10/02/23 Status: Ordered Start: 05-28-2023 End: 05-31-2023 Percocet 5 mg-325 mg oral ta blet 1 tab(s), Oral, q6hr as needed for pain for 3 day(s), 15 tab(s), Refill(s) 0, [id number], 160, cm, 05/28/23 13:08:00 EDT, Height/Length Dosing, 115, kg, 05/28/23 13:08:00 EDT, Weight Dosing Start Date: 05/28/23 Stop Date: 05/31/23 Status: Ordered Start: 10-25-2022 End: 10-28-2022 acetaminophen-oxycodone 325 mg-5 mg Tab 1 tab(s), Oral, q6hr for pain for 3 day(s), 12 tab(s), Refill(s) 0, [id number], 160, cm, 10/25/22 9:40:00 EDT, Height/Length Dosing, 115, kg, 10/25/22 9:40:00 EDT, Weight Dosing Start Date: 10/25/22 Stop Date: 10/28/22 Status: Ordered Start: 12-28-2020 Percocet 325 m g-5 mg Tab 1 tab(s), Oral, q6hr as needed for pain, 8 tab(s), Refill(s) 0 Start Date: 12/28/20 Status: Ordered Start: 12-28-2020 Percocet 325 m g-5 mg Tab 1 tab(s), Oral, q6hr as needed for pain, 8 tab(s), Refill(s) 0 Start Date: 12/28/20 Status: Ordered [id number] 200 actuat albuterol 0.09 mg/actuat metered dose inhaler (1 source) beta2-Adrenergic Agonist Start: 04-08-2023 End: 05-08-2023 take 2 puff(s) by inhalation every six hours for wheezing albuterol HFA 90 mcg/act inhaler Indications: Wheezing Inhale 2 puffs every 6 (six) hours if needed for wheezing 18 g 1 04/08/2023 05/08/2023 Active ALPRAZolam 1 mg oral tablet (20 sources) Benzodiazepine Start: 01-02-2021 take 1 tablet by mouth twice daily as needed for anxiety Xanax 1 mg Tab 1 mg = 1 tab(s), Oral, BID, PRN for anxiety, Refills(s) 0 Start Date: 01/02/21 Status: Ordered aspirin 81 mg chewable tablet (20 sources) Platelet Aggregation Inhibitor, Nonsteroidal Anti-inflammatory Drug Start: 12-19-2018 aspirin 81 mg Chew Tab 81 mg = 1 tab(s), Chewed, Daily, Refills(s) 0 Start Date: 12/19/18 Status: Ordered take 1 tablet by mouth in the mo rning aspirin 81 MG EC tablet Take 81 mg by mouth in the morning. 0 Active atorvastatin 80 mg oral tablet (20 sources) HMG-CoA Reductase Inhibitor Start: 09-15-2018 take 1 tablet by mouth once daily atorvastatin 80 mg Tab 80 mg = 1 tab(s), Oral, Daily, # 30 tab(s), Refills(s) 0, Pharmacy: [id number] Start Date: 09/15/18 Status: Ordered bacitracin zinc 0.5 unt/mg topical ointment (1 source) bacitracin 500 UNIT/GM ointment Apply topically 2 (two) times a day. 0 Active Blood Glucose Monitoring Suppl (Blood Glucose Monitor System) w/Device kit (1 source) Blood Glucose Monitoring Suppl (Blood Glucose Monitor System) w/Device kit Blood Pressure kit (1 source) Blood Pressure k it cephalexin 500 mg oral capsule (1 source) Cephalosporin Antibacterial Start: 07-30-2023 End: 08-04-2023 take 1 capsule by mouth three times daily Keflex 500 mg Cap 500 mg = 1 cap(s), Oral, TID, X 5 day(s), # 15 cap(s), Refills(s) 0, Pharmacy: [id number], 160, cm, 07/29/23 21:34:00 EDT, Height/Length Dosing, 119, kg, 07/29/23 21:34:00 EDT, Weight Dosing Start Date: 07/30/23 Stop Date: 08/04/23 Status: Ordered clindamycin 300 mg oral capsule (1 source) Lincosamide Antibacterial Start: 10-02-2023 End: 10-09-2023 take 1 capsule by mouth every six hours clindamycin 300 mg oral cap 300 mg = 1 cap(s), Oral, q6hr, X 7 day(s), # 28 cap(s), Refills(s) 0, Pharmacy: [id number], 160, cm, 10/02/23 12:44:00 EDT, Height/Length Dosing, 105.3, kg, 10/02/23 12:44:00 EDT, Weight Dosing Start Date: 10/02/23 Stop Date: 10/09/23 Status: Ordered clopidogrel 75 mg oral tablet (20 sources) [id number] Platelet Inhibitor Start: 10-09-2019 take 1 tablet by mouth once daily Plavix 75 mg Tab 75 mg = 1 tab(s), Oral, Daily, Refills(s) 0 Start Date: 10/09/19 Status: Ordered empagliflozin 25 mg oral tablet (20 sources) Sodium-Glucose Cotransporter 2 Inhibitor Start: 01-02-2021 take 1 tablet by mouth once daily in the morning Jardiance 25 mg oral tablet 25 mg = 1 tab(s), Oral, qAM, Refills(s) 0 Start Date: 01/02/21 Status: Ordered Erythromcyin Oph. Oint. 0.5% Ointment (1 source) Start: 06-07-2021 End: 06-14-2021 Erythromcyin Oph. Oint. 0.5% Ointment 0.5 in, OPTH, QID for 7 day(s), 3.5 gm, Refill(s) 0, [id number], 165, cm, 06/07/21 20:41:00 EDT, Height/Length Dosing, 121, kg, 06/07/21 20:41:00 EDT, Weight Dosing Start Date: 06/07/21 Stop Date: 06/14/21 Status: Ordered ezetimibe 10 mg oral tablet (1 source) Dietary Cholesterol Absorption Inhibitor Start: 03-17-2023 End: 06-15-2023 take 1 tablet by mouth in the evening ezetimibe (Zetia) 10 MG tablet Indications: Mixed hyperlipidemia (CMS/HCC) Take 1 tablet (10 mg) by mouth in the evening 90 tablet 1 03/17/2023 06/15/2023 Active gabapentin 600 mg oral tablet (20 sources) Anti-epileptic Agent Start: 03-30-2023 End: 04-29-2023 take 1 tablet by mouth in the morning, then take 1 tablet by mouth in the evening, then take 1 tablet by mouth at bedtime gabapentin (Neurontin) 600 MG tablet Indications: Type 2 diabetes mellitus with diabetic polyneuropathy, with long-term current use of insulin (CMS/HCC) Take 1 tablet (600 mg) by mouth in the morning and 1 tablet (600 mg) in the evening and 1 tablet (600 mg) before bedtime. 90 tablet 1 03/30/2023 04/29/2023 Active Start: 12-19-2018 take 1 capsule by mo [facility] three times daily gabapentin 300 mg Cap 300 mg = 1 cap(s), Oral, TID Start Date: 12/19/18 Status: Ordered ibuprofen 600 mg oral tablet (3 sources) Nonsteroidal Anti-inflammatory Drug Start: 05-28-2023 End: 06-04-2023 take 1 tablet by mouth every eight hours ibuprofen 600 mg Tab 600 mg = 1 tab(s), Oral, q8hr, X 7 day(s), # 21 tab(s), Refills(s) 0, Pharmacy: [id number], 160, cm, 05/28/23 13:08:00 EDT, Height/Length Dosing, 115, kg, 05/28/23 13:08:00 EDT, Weight Dosing Start Date: 05/28/23 Stop Date: 06/04/23 Status: Ordered Start: 12-30-2020 take 1 tablet by [facility] every six hours ibuprofen 600 mg Tab 600 mg = 1 tab(s), Oral, q6hr, # 40 tab(s), Refills(s) 0, Pharmacy: [id number], 162, cm, 12/30/20 16:50:00 EDT, Height/Length Dosing, 118, kg, 12/30/20 16:50:00 EDT, Weight Dosing Start Date: 12/30/20 Status: Ordered 3 ml insulin glargine 100 unt/ml pen injector (20 sources) Insulin Analog Start: 01-02-2021 Lantus Solosta r Pen 100 units/mL subcutaneous solution Refills(s) 0 Start Date: 01/02/21 Status: Ordered Start: 01-02-2021 Lantus Solosta r Pen 100 units/mL subcutaneous solution Refills(s) 0 Start Date: 01/02/21 Status: Ordered inject 10 [IU] by meehan bcutaneous injection at bedtime insulin glargine (Lantus) 100 UNIT/ML injection Inject 10 Units under the skin at bedtime. 8:00PM 0 Active isopropyl alcohol 0.7 ml/ml medicated pad (1 source) Alcohol Swabs pa ds 24 hr isosorbide mononitrate 30 mg extended release oral tablet (17 sources) Nitrate Vasodilator Start: 2 take 1 tablet by mouth once daily in the morning isosorbide mononitrate 30 mg ER Tab 30 mg = 1 tab(s), Oral, qAM, # 60 tab(s), Refills(s) 0, Pharmacy: [id number], 163, cm, 10/09/21 14:18:00 EDT, Height/Length Dosing, 118, kg, 10/09/21 14:18:00 EDT, Weight Dosing Start Date: 10/10/21 Status: Ordered lamoTRIgine 25 mg oral tablet (1 source) Mood Stabilizer, Anti-epileptic Agent take 10 mg by mouth in the morning lamoTRIgine (LaMICtal) 25 MG tablet Take 10 mg by mouth in the morning. 0 Active Lidocaine (2 sources) Antiarrhythmic, Amide Local Anesthetic Start: 1 RectiCare 5% topical cream See Instructions, 5 packet(s), Refill(s) 0, samples given to patient (Rx), Topical Start Date: 02/22/21 Status: Ordered losartan potassium 25 mg oral tablet (20 sources) Angiotensin 2 Receptor Lawson Start: 9 End: 4 take 1 tablet by mouth at bedtime losartan 25 mg Tab 25 mg = 1 tab(s), Oral, Bedtime, Refills(s) 0 Start Date: 08/20/18 Status: Ordered metFORMIN hydrochloride 500 mg oral tablet (20 sources) Biguanide Start: 1 MetFORMIN (Eqv-Glucophage XR) 500 mg oral tablet, extended release 1,000 mg = 2 tab(s), Oral, BID, Refills(s) 0 Start Date: 01/02/21 Status: Ordered take 1 tablet by mouth in the mo rning metFORMIN (Glucophage) 500 MG tablet Take 500 mg by mouth in the morning and 500 mg in the evening. Take with meals. 0 Active Mounjaro 10 MG/0.5ML solution pen-injector (1 source) Start: 03-30-2023 inject 10 mg by subcutaneous injection every week Mounjaro 10 MG/0.5ML solution pen-injector INJECT 10 MG UNDER THE SKIN 1 (ONE) TIME PER WEEK FOR 28 DAYS 0 03/30/2023 Active naproxen 500 mg oral tablet (18 sources) Nonsteroidal Anti-inflammatory Drug Start: 12-27-2021 End: 10-13-2023 take 1 tablet by mouth twice daily naproxen 500 mg Tab 500 mg = 1 tab(s), Oral, BID, X 10 day(s), # 20 tab(s), Refills(s) 0, Pharmacy: [id number], 160, cm, 10/02/23 21:46:00 EDT, Height/Length Dosing, 106.2, kg, 10/02/23 21:46:00 EDT, Weight Dosing Start Date: 10/03/23 Stop Date: 10/13/23 Status: Ordered Start: 12-28-2020 take 1 tablet by addi th twice daily as needed for pain naproxen 500 mg Tab 500 mg = 1 tab(s), Oral, BID, PRN for pain, # 20 tab(s), Refills(s) 0, [id number], cm, 12/28/20 0:14:00 EDT, Height/Length Dosing, 132.4, kg, 12/28/20 0:14:00 EDT, Weight Dosing Start Date: 12/28/20 Status: Ordered nitroglycerin 0.004 mg/mg rectal ointment (19 sources) Nitrate Vasodilator Start: 02-21-2021 apply 30 g rectal route every twelve hours nitroglycerin 0.4% rectal ointment See Instructions, 30 gm, Refill(s) 0, Rectal q12hr, [id number], 162, cm, 02/21/21 12:40:00 EST, Height/Length Dosing, 128.3, kg, 02/21/21 12:40:00 EST, Weight Dosing Start Date: 02/21/21 Status: Ordered Start: 02-21-2021 apply 30 g rectal ro denisse every twelve hours nitroglycerin 0.4% rectal ointment See Instructions, 30 gm, Refill(s) 0, Rectal q12hr, [id number], 162, cm, 02/21/21 12:40:00 EST, Height/Length Dosing, 128.3, kg, 02/21/21 12:40:00 EST, Weight Dosing Start Date: 02/21/21 Status: Ordered omeprazole 20 mg delayed release oral capsule (2 sources) Proton Pump Inhibitor Start: 04-27-2023 End: 07-26-2023 take 1 capsule by mouth in the morning omeprazole (PriLOSEC) [address] capsule Indications: Gastro-esophageal reflux disease without esophagitis Take 1 capsule (20 mg) by mouth in the morning. 90 capsule 1 04/27/2023 07/26/2023 Active omeprazole 20 mg Cap-DR (2 sources) Start: 01-02-2021 take 1 capsule by mouth once daily omeprazole 20 mg Cap-DR 20 mg = 1 cap(s), Oral, Daily Start Date: 01/02/21 Status: Ordered ondansetron 4 mg disintegrating oral tablet (20 sources) Serotonin-3 Receptor Antagonist Start: 10-03-2023 take 1 tablet by mouth every six hours ondansetron 4 mg Dis Tab 4 mg = 1 tab(s), Oral, q6hr, # 12 tab(s), Refills(s) 0, Pharmacy: [id number], 160, cm, 10/02/23 21:46:00 EDT, Height/Length Dosing, 106.2, kg, 10/02/23 21:46:00 EDT, Weight Dosing Start Date: 10/03/23 Status: Ordered Start: 11-25-2020 take 1 tablet by dadi th every eight hours as needed for nausea Zofran 4 mg Tab 4 mg = 1 tab(s), Oral, q8hr, PRN Nausea/Vomiting, # 12 tab(s), Refills(s) 0, Pharmacy: [id number], 162, cm, 12/27/21 2:03:00 EDT, Height/Length Dosing, 118, kg, 12/27/21 2:03:00 EDT, Weight Dosing Start Date: 12/27/21 Status: Ordered oxyCODONE hydrochloride 5 mg oral capsule (2 sources) Opioid Agonist Start: 12-28-2020 oxyCODONE 5 mg Cap 5 mg = 1 cap(s), Oral, q6hr, PRN Pain 8-10, # 3 cap(s), Refills(s) 0, Pharmacy: [id number], 162, cm, 12/28/20 0:14:00 EDT, Height/Length Dosing, 132.4, kg, 12/28/20 0:14:00 EDT, Weight Dosing Start Date: 12/28/20 Status: Ordered phenazopyridine hydrochloride 100 mg oral tablet (1 source) Start: 07-30-2023 End: 08-02-2023 take 1 tablet by mouth three times daily Pyridium 100 mg Tab 100 mg = 1 tab(s), Oral, TID, X 3 day(s), # 9 tab(s), Refills(s) 0, [id number] 160, cm, 07/29/23 21:34:00 EDT, Height/Length Dosing, 119, kg, 07/29/23 21:34:00 EDT, Weight Dosing Start Date: 07/30/23 Stop Date: 08/02/23 Status: Ordered promethazine hydrochloride 25 mg oral tablet (1 source) Phenothiazine Start: 09-25-2023 End: 09-28-2023 take 1 tablet by mouth every four hours promethazine 25 mg Tab 25 mg = 1 tab(s), Oral, q4hr, X 3 day(s), # 18 tab(s), Refills(s) 0, [id number] 160, cm, 09/25/23 6:39:00 EDT, Height/Length Dosing, 105.7, kg, 09/25/23 6:39:00 EDT, Weight Dosing Start Date: 09/25/23 Stop Date: 09/28/23 Status: Ordered 12 hr ranolazine 500 mg extended release oral tablet (17 sources) Anti-anginal Start: 10-10-2021 take 1 tablet by mouth twice daily Ranexa 500 mg Tab-ER 500 mg = 1 tab(s), Oral, BID, # 60 tab(s), Refills(s) 1, [id number] 163, cm, 10/09/21 14:18:00 EDT, Height/Length Dosing, 118, kg, 10/09/21 14:18:00 EDT, Weight Dosing Start Date: 10/10/21 Status: Ordered Ozempic (17 sources) Start: 10-09-2021 Ozempic Refill(s) 0 Start Date: 10/09/21 Status: Ordered tamsulosin hydrochloride 0.4 mg oral capsule (15 sources) alpha-Adrenergic Lawson Start: 10-25-2022 take 1 capsule by mouth once daily Flomax 0.4 mg Cap 0.4 mg = 1 cap(s), Oral, Daily, # 10 cap(s), Refills(s) 0, Pharmacy: [id number], 160, cm, 05/28/23 13:08:00 EDT, Height/Length Dosing, 115, kg, 05/28/23 13:08:00 EDT, Weight Dosing Start Date: 05/28/23 Status: Ordered traZODone hydrochloride 50 mg oral tablet (1 source) Serotonin Reuptake Inhibitor Start: 02-19-2023 traZODone (Desyrel) 50 MG tablet TAKE 1 OR 2 TABLETS AT BEDTIME NEEDED 0 02/19/2023 Active venlafaxine 100 mg oral tablet (20 sources) Serotonin and Norepinephrine Reuptake Inhibitor Start: 03-05-2023 venlafaxine (Effexor) 100 MG tablet TAKE 1 TABLET BY MOUTH EVERY DAY IN THE EVENING WITH FOOD ORALLY ONCE A DAY 30 DAY(S) 0 03/05/2023 Active Start: 03-02-2023 take 1 tablet by [facility] once daily at mealtime venlafaxine (Effexor) 50 MG tablet TAKE 1 TABLET BY MOUTH EVERY DAY IN THE EVENING WITH FOOD 0 03/02/2023 Active Start: 01-02-2021 Effexor XR 150 mg Cap-ER 150 mg = 1 cap(s), Oral, Daily, along with 75 mg cap, Refills(s) 0 Start Date: 01/02/21 Status: Ordered Start: 01-02-2021 take 1 capsule by [facility] once daily Effexor XR 75 mg Cap-ER 75 mg = 1 cap(s), Oral, Daily, Refills(s) 0 Start Date: 01/02/21 Status: Ordered Start: 01-02-2021 Effexor XR 150 mg Cap-ER 150 mg = 1 cap(s), Oral, Daily, along with 75 mg cap, Refills(s) 0 Start Date: 01/02/21 Status: Ordered Start: 01-02-2021 take 1 capsule by [facility] once daily Effexor XR 75 mg Cap-ER 75 mg = 1 cap(s), Oral, Daily, Refills(s) 0 Start Date: 01/02/21 Status: Ordered Zofran ODT 4 mg Tab-Dis (14 sources) Start: 07-30-2023 take 1 tablet by mouth every eight hours Zofran ODT 4 mg Tab-Dis 4 mg = 1 tab(s), Oral, q8hr, # 12 tab(s), Refills(s) 0, Pharmacy: [id number], 160, cm, 07/29/23 21:34:00 EDT, Height/Length Dosing, 119, kg, 07/29/23 21:34:00 EDT, Weight Dosing Start Date: 07/30/23 Status: Ordered Start: 10-25-2022 take 1 tablet by addi th every eight hours as needed for nausea Zofran ODT 4 mg Tab-Dis 4 mg = 1 tab(s), Oral, q8hr, PRN Nausea/Vomiting, # 12 tab(s), Refills(s) 0, [id number] 160, cm, 10/25/22 9:40:00 EDT, Height/Length Dosing, 115, kg, 10/25/22 9:40:00 EDT, Weight Dosing Start Date: 10/25/22 Status: Ordered Completed/Discontinued Medications Medication Drug Class(es) Dates Sig (Normalized) Sig (Original) albuterol HFA 90 mcg/inh MDI (19 sources) Start: 11-25-2020 take 1 dose by inhalation four times daily albuterol HFA 90 mcg/inh MDI 2 puff(s), Inhalation, QID for wheezing, 1 EA, Refill(s) 0, [id number], 163, cm, 11/25/20 12:15:00 EDT, Height/Length Dosing, 127, kg, 11/25/20 12:15:00 EDT, Weight Dosing Start Date: 11/25/20 Status: Ordered Insulin Lispro (3 sources) Insulin Analog Start: 10-10-2021 End: 10-10-2021 Insulin Lispro Sliding Scale 0-10 Units, Injection-Insulin, SubCutaneous, Start date 10/10/21 11:30:00 EDT Start Date: 10/10/21 Stop Date: 10/10/21 Status: Completed Start: 10-10-2021 End: 10-10-2021 Insulin Lispro Sliding Scale 0-10 Units, Injection-Insulin, SubCutaneous, Start date 10/10/21 7:30:00 EDT Start Date: 10/10/21 Stop Date: 10/10/21 Status: Completed Start: 10-09-2021 End: 10-09-2021 Insulin Lispro Sliding Scale 0-10 Units, Injection-Insulin, SubCutaneous, Start date 10/09/21 21:00:00 EDT Start Date: 10/09/21 Stop Date: 10/09/21 Status: Completed metoprolol tartrate 25 mg oral tablet (20 sources) beta-Adrenergic Lawson Start: 10-10-2021 End: 10-10-2021 Metoprolol tartrate 25 mg Tab 25 mg = 1 tab(s), Tab, Oral, Start date 10/10/21 9:00:00 EDT, 10/09/21 17:14:00 EDT Start Date: 10/10/21 Stop Date: 10/10/21 Status: Completed Start: 01-02-2021 End: 10-09-2021 take 1 tablet by mouth twice daily Metoprolol tartrate 25 mg Tab 25 mg = 1 tab(s), Oral, BID, Refills(s) 0 Start Date: 01/02/21 Status: Ordered Problems Active Problems Problem Classification Problem Date Documented Date Episodic/Chronic Abdominal pain (3 sources) Abdominal pain; Translations: [Unspecified abdominal pain] Onset: 12-27-2021 Episodic Acute myocardial infarction (19 sources) Myocardial infarction 09-13-2018 Chronic Anxiety disorders (20 sources) Anxiety; Translations: [Anxiety disorder] Onset: 10-09-2021 04-02-2020 Chronic Coronary atherosclerosis and other heart disease (20 sources) Coronary arteriosclerosis; Translations: [History of myocardial infarction] Onset: 10-09-2021 11-19-2020 Chronic Coronary atherosclerosis and other heart disease (20 sources) Stented coronary artery; Translations: [Presence of coronary angioplasty implant and graft] Onset: 04-20-2023 01-09-2019 Episodic Diabetes mellitus with complications (20 sources) Neuropathy due to diabetes mellitus; Translations: [Type 2 diabetes mellitus with hyperglycemia] Onset: 10-29-2020 04-02-2020 Chronic Diabetes mellitus without complication (20 sources) Diabetes mellitus; Translations: [Type 2 diabetes mellitus] Onset: 12-18-2020 Resolved: 09-12-2018 01-02-2021 Chronic Disorders of lipid metabolism (20 sources) Hyperlipidemia; Translations: [Hyperlipidemia, unspecified] Onset: 10-09-2021 01-02-2021 Chronic Esophageal disorders (20 sources) Gastroesophageal reflux disease; Translations: [Gastroesophageal reflux disease without esophagitis] Onset: 04-20-2023 01-02-2021 Chronic Essential hypertension (20 sources) Hypertensive disorder; Translations: [Essential hypertension] Onset: 10-09-2021 12-27-2018 Chronic Gastritis and duodenitis (1 source) Gastritis; Translations: [Gastritis, unspecified, without bleeding] Onset: 09-25-2023 Episodic Hemorrhoids (19 sources) Hemorrhoids 01-02-2021 Episodic Inflammation; infection of eye (except that caused by tuberculosis or sexually transmitteddisease) (1 source) Blepharitis; Translations: [Unspecified blepharitis left upper eyelid] Onset: 06-07-2021 Episodic Mood disorders (20 sources) Depressive disorder; Translations: [Recurrent major depressive episodes, moderate ] Onset: 04-20-2023 01-02-2021 Chronic Nonspecific chest pain (4 sources) Chest pain; Translations: [Chest pain, unspecified] Onset: 10-09-2021 Episodic Other connective tissue disease (4 sources) Pain in left foot; Translations: [PAIN IN LEFT FOOT] Onset: 08-21-2021 Episodic Other endocrine disorders (19 sources) Polycystic ovaries 03-22-2018 Chronic Other endocrine disorders (20 sources) Polycystic ovary syndrome; Translations: [Polycystic ovarian syndrome] Onset: 04-20-2023 01-02-2021 Chronic Other female genital disorders (19 sources) Abnormal uterine bleeding 01-02-2021 Chronic Other liver diseases (19 sources) Steatosis of liver 01-02-2021 Chronic Other lower respiratory disease (1 source) Wheezing; Translations: [Wheezing] Onset: 03-17-2023 03-17-2023 Episodic Other non-traumatic joint disorders (1 source) Pain in left ankle and joints of left foot; Translations: [PAIN IN LEFT ANKLE] Onset: 08-24-2021 Episodic Other nutritional; endocrine; and metabolic disorders (1 source) Morbid obesity; Translations: [Morbid (severe) obesity due to excess calories] Onset: 10-09-2021 Chronic Other screening for suspected conditions (not mental disorders or infectious disease) (1 source) Patient encounter status; Translations: [Encounter for screening mammogram for malignant neoplasm of breast] Onset: 04-20-2023 04-20-2023 Episodic Ovarian cyst (19 sources) Cyst of ovary 01-02-2021 Episodic Residual codes; unclassified (20 sources) Obstructive sleep apnea syndrome; Translations: [Obstructive sleep apnea (adult) (pediatric)] Onset: 10-09-2021 04-02-2020 Chronic Residual codes; unclassified (1 source) Dependence on enabling machine or device; Translations: [Dependence on other enabling machines and devices] Onset: 10-09-2021 Chronic Residual codes; unclassified (19 sources) Insomnia 01-02-2021 Episodic Residual codes; unclassified (1 source) Procedure carried out on subject; Translations: [Encounter for prophylactic measures, unspecified] Onset: 10-09-2021 Episodic Skin and subcutaneous tissue infections (1 source) Abscess of skin and/or subcutaneous tissue; Translations: [Cutaneous abscess, unspecified] Onset: 10-02-2023 Episodic Substance-related disorders (20 sources) Psychoactive substance abuse; Translations: [Smoker] Onset: 10-09-2021 Resolved: 11-25-2013 01-02-2021 Chronic Comment on above: Added secondary to d ocumentation in Social History. Urinary tract infections (1 source) Urinary tract infectious disease; Translations: [Urinary tract infection, site not specified] Onset: 07-30-2023 Episodic Viral infection (1 source) Herpesviral infection of urogenital system, unspecified; Translations: [HERPESVIRAL INF UROGENITAL SYS UNS] Onset: 12-18-2020 Chronic Past or Other Problems Problem Classification Problem Date Documented Da te Episodic/Chronic Allergic reactions (1 source) Dermatitis, unspecified; Translations: [DERMATITIS UNSPECIFIED] Onset: 12-18-2020 Episodic Benign neoplasm of uterus (19 sources) Uterine leiomyoma Resolved: 08-20-2018 12-19-2018 Episodic Calculus of urinary tract (20 sources) Kidney stone; Translations: [Calculus of kidney] Onset: 10-25-2022 Resolved: 01-31-2011 12-19-2018 Episodic Other aftercare (1 source) retirement (current) use of insulin; Translations: [DETENTION CURRENT USE OF INSULIN] Onset: 12-18-2020 Episodic Other aftercare (1 source) Other senior living (current) drug therapy; Translations: [OTH DETENTION CURRENT DRUG THERAPY] Onset: 12-18-2020 Episodic Other skin disorders (3 sources) Rash and other nonspecific skin eruption; Translations: [RASH OTH NONSPECIFIC SKIN ERUPTION] Onset: 12-16-2020 Episodic Residual codes; unclassified (19 sources) Harmful pattern of use of nicotine Resolved: 09-12-2018 12-19-2018 Episodic Screening and history of mental health and substance abuse codes (1 source) Personal history of nicotine dependence; Translations: [PERSONAL HISTORY OF NICOTINE DEPEND] Onset: 12-18-2020 Episodic Unclassified (1 source) Exposure to 2019 novel coronavirus; Translations: [Contact with and (suspected) exposure to COVID19] Results Test Name Value Interpretation Reference Range Facility [facility] 09-25-2023 Anion gap [Moles/Vol] 14 mmol/L Normal 6-16 [facility] Comment on above: Performed By: #### 2 [id number] #### [facility] [address] [place] [address] Calcium [Mass/Vol] 9.9 mg/dL Normal 8.9-11.1 [facility] Comment on above: Performed By: #### 2 [id number] #### [facility] [address] [place] [address] Chloride [Moles/Vol] 104 mmol/L Normal 101-111 [facility] Comment on above: Performed By: #### 2 [id number] #### [facility] [address] [place] [address] CO2 [Moles/Vol] 24 mmol/L Normal 21-31 [facility] Comment on above: Performed By: #### 2 [id number] #### [facility] [address] [place] [address] Creatinine [Mass/Vol] 0.7 mg/dL Normal 0.5-1.3 [facility] Comment on above: Performed By: #### 2 [id number] #### [facility] [address] [place] [address] Glucose [Mass/Vol] 116 mg/dL Normal 55-199 [facility] Comment on above: Performed By: #### 2 [id number] #### [facility] [address] [place] [address] Potassium [Moles/Vol] 4.2 mmol/L Normal 3.5-5.3 [facility] Comment on above: Performed By: #### 2 [id number] #### [facility] [address] [place] [address] Sodium [Moles/Vol] 138 mmol/L Normal 135-145 [facility] Comment on above: Performed By: #### 2 [id number] #### [facility] [address] [place] [address] Urea nitrogen [Mass/Vol] 16 mg/dL Normal 5-21 [facility] Comment on above: Performed By: #### 2 [id number] #### [facility] [address] [place] [address] Urea nitrogen/Creatinine [Mass ratio] 23 No Units High 10-20 [facility] Comment on above: Performed By: #### 2 [id number] #### [facility] [address] [place] [address] CBC w/ Auto Diffon 4 Basophils/100 WBC (Bld) 0.7 % Normal 0.0-2.0 [facility] Comment on above: Performed By: #### 2 [id number] #### [facility] [address] [place] [address] Basophils/Leukocytes Auto (Bld) [Pure # fraction] 0.1 E9/L Normal 0.0-0.2 [facility] Comment on above: Performed By: #### 2 [id number] #### [facility] [address] [place] [address] Eosinophils (Bld) [#/Vol] 0.1 E9/L Normal 0.0-0.5 [facility] Comment on above: Performed By: #### 2 [id number] #### [facility] [address] [place] [address] Eosinophils/100 WBC (Bld) 1.1 % Normal 0.0-8.0 [facility] Comment on above: Performed By: #### 2 [id number] #### [facility] [address] [place] [address] Erythrocyte distribution width (RBC) [Ratio] 14.3 % High 10.9-14.2 [facility] Comment on above: Performed By: #### 2 [id number] #### [facility] [address] [place] [address] Hematocrit (Bld) [Volume fraction] 44.5 % Normal 34.0-46.0 [facility] Comment on above: Performed By: #### 2 [id number] #### [facility] [address] [place] [address] Hemoglobin (Bld) [Mass/Vol] 15.0 g/dL Normal 12.0-16.0 [facility] Comment on above: Performed By: #### 2 [id number] #### [facility] [address] [place] [address] Lymphocytes (Bld) [#/Vol] 1.7 E9/L Normal 1.0-4.0 [facility] Comment on above: Performed By: #### 2 [id number] #### [facility] [address] [place] [address] Lymphocytes/100 WBC (Bld) 19.9 % Normal 14.0-50.0 [facility] Comment on above: Performed By: #### 2 [id number] #### [facility] [address] [place] [address] MCH (RBC) [Entitic mass] 31.2 pg Normal 27.0-34.0 [facility] Comment on above: Performed By: #### 2 [id number] #### [facility] [address] [place] [address] MCHC (RBC) [Mass/Vol] 33.7 g/dL Normal 31.4-36.0 [facility] Comment on above: Performed By: #### 2 [id number] #### [facility] [address] [place] [address] MCV (RBC) [Entitic vol] 92.5 fL Normal 80.0-100.0 [facility] Comment on above: Performed By: #### 2 [id number] #### [facility] [address] [place] [address] Monocytes (Bld) [#/Vol] 0.4 E9/L Normal 0.2-1.0 [facility] Comment on above: Performed By: #### 2 086208 #### [facility] [address] [place] [address] Neutrophils (Bld) [#/Vol] 6.3 E9/L Normal 2.0-7.5 [facility] Comment on above: Performed By: #### 2 [id number] #### [facility] [address] [place] [address] Neutrophils/100 WBC (Bld) 73.8 % Normal 36.0-75.0 [facility] Comment on above: Performed By: #### 2 [id number] #### [facility] [address] [place] [address] Platelet mean volume (Bld) [Entitic vol] 8.5 fL Normal 6.4-10.8 [facility] Comment on above: Performed By: #### 2 [id number] #### [facility] [address] [place] [address] Platelets (Bld) [#/Vol] 229.0 E9/L Normal 150.0-500.0 [facility] Comment on above: Performed By: #### 2 637016 #### [facility] [address] [place] [address] RBC (Bld) [#/Vol] 4.8 E12/L Normal 4.3-5.9 [facility] Comment on above: Performed By: #### 2 [id number] #### [facility] [address] [place] [address] WBC corrected for nucl RBC Auto (Bld) [#/Vol] 8.6 E9/L Normal 4.0-11.0 [facility] Comment on above: Performed By: #### 2 [id number] #### [facility] [address] [place] [address] CHEMISTRYOrdered By: SYSTEM SYSTEM on 09-25-2023 Albumin [Mass/Vol] 4.7 g/dL Normal 3.3 - 5.0 gm/dL Rem[facility] Chem Albumin/Globulin [Mass ratio] 1.6 {ratio} Normal 1.1 - 2.2 [facility] ALP [Catalytic activity/Vol] 105 [iU]/d High 21 - 98 Int._Unit/L [facility] Chem ALT No additional P-5'-P [Catalytic activity/Vol] 9 [iU]/d Normal 6 - 46 Int._Unit/L [facility] Anion gap [Moles/Vol] 14 mmol/L Normal 6 - 16 mEq/L R emisol Chem AST [Catalytic activity/Vol] 18 [iU]/d Normal 5 - 43 Int._Unit/L [facility] Bilirubin [Mass/Vol] 0.6 mg/dL Normal 0.0 - 1 .1 mg/dL [facility] Bilirubin.direct [Mass/Vol] 0.1 mg/dL Normal 0.0 - 0.4 mg/dL [facility] Bilirubin.indirect [Mass or moles/Vol] 0.5 mg/dL Normal 0.1 - 0.9 mg/dL [facility] Calcium [Mass/Vol] 9.9 mg/dL Normal 8.9 - 11. 1 mg/dL [facility] Chloride [Moles/Vol] 104 mmol/L Normal 101 - 1 11 mmol/L [facility] CO2 [Moles/Vol] 24 mmol/L Normal 21 - 31 mmol/L [facility] Creatinine [Mass/Vol] 0.7 mg/dL Normal 0.5 - 1.3 mg/dL [facility] eGFR 111 mL/min/1.73 m2 Normal >=59mL/mi n/1 .73 m2 [facility] Globulin (S) [Mass/Vol] 2.9 g/dL Normal 1.4 - 4.0 gm/dL [facility] Glucose [Mass/Vol] 116 mg/dL Normal 55 - 199 mg/dL [facility] Lipase [Catalytic activity/Vol] 76 U/L High 13 - 58 unit/L [facility] Potassium [Moles/Vol] 4.2 mmol/L Normal 3.5 - 5.3 mmol/L [facility] Protein [Mass/Vol] 7.6 g/dL Normal 6.0 - 7.8 gm/dL [facility] Sodium [Moles/Vol] 138 mmol/L Normal 135 - 145 mmol/L [facility] Urea nitrogen [Mass/Vol] 16 mg/dL Normal 5 - 21 mg/dL [facility] Urea nitrogen/Creatinine [Mass ratio] 23 mg/mg High 10 - 20 [facility] ED Clinical Summaryon 2023 ED Clinical Summary ED Clinical Summary [place] [id number] ED Clinical Summary Person Information Name: TISH VARGAS [facility] Age: 42 Years : 1980 Sex: Female Language: Martiniquais PCP: YANET CHAIREZ CNP Marital Status: Phone: [phone] Visit Id: Visit Reason: Weakness or fatigue; Chills; Nausea; vomiting chills calmy Speciality: Acuity: 3 Enc Type: Emergency Med Service: Emergency Arrival: 09/25/2023 06:33:17 Discharge: 09/25/2023 09:56:31 LOS: 000 03:23 Checkin: 09/25/2023 06:33:17 Checkout: 09/25/2023 09:56:31 Dispo Type: Home (Routine DC) EVENTS: Event Name Event Status Request Date/Time Start Date/Time Complete Date/Time Arrive Complete 09/25/2023 06:33:17 09/25/2023 06:33:17 09/25/2023 06:33:17 Document Home Meds Request 09/25/2023 06:33:17 Triage Complete 09/25/2023 06:33:17 09/25/2023 06:39:37 09/25/2023 06:39:37 EKG Cancel 09/25/2023 06:38:30 09/25/2023 06:41:50 Isolation Screening Request 09/25/2023 06:39:38 Bed Assign Complete 09/25/2023 06:39:49 09/25/2023 06:39:49 09/25/2023 06:39:49 Dr Exam Complete 09/25/2023 06:39:49 09/25/2023 07:02:10 09/25/2023 07:02:10 RN Exam Complete 09/25/2023 06:39:49 09/25/2023 07:02:10 09/25/2023 07:02:10 Registration Complete 09/25/2023 06:40:42 09/25/2023 06:40:42 09/25/2023 06:40:42 Reg Complete Request 09/25/2023 06:40:42 Reg Bed Request Complete 09/25/2023 06:40:42 09/25/2023 06:40:42 09/25/2023 06:40:42 Meds Admin Complete 09/25/2023 06:41:43 09/25/2023 06:55:47 Pending Labs Complete 09/25/2023 06:41:43 09/25/2023 06:59:54 09/25/2023 07:37:54 Lab Complete 09/25/2023 06:41:43 09/25/2023 07:37:54 Patient Care Complete 09/25/2023 06:41:43 09/25/2023 06:59:04 Urine Collect Complete 09/25/2023 06:41:43 09/25/2023 07:10:26 Pending Labs Complete 09/25/2023 06:59:54 09/25/2023 06:59:54 09/25/2023 07:37:54 Lab Complete 09/25/2023 06:59:54 09/25/2023 06:59:54 09/25/2023 07:37:54 Registration Complete 09/25/2023 07:02:10 09/25/2023 09:07:41 09/25/2023 09:07:41 Meds Admin Complete 09/25/2023 07:49:19 09/25/2023 08:03:32 Pending Labs Complete 09/25/2023 08:21:25 09/25/2023 08:21:25 09/25/2023 08:21:25 Pending Labs Complete 09/25/2023 08:34:14 09/25/2023 08:34:14 09/25/2023 08:34:14 Discharge Complete 09/25/2023 08:57:54 09/25/2023 09:56:36 09/25/2023 09:56:36 Transfer Complete 09/25/2023 09:56:36 09/25/2023 09:56:36 09/25/2023 09:56:36 ADDRESS: [address] [facility] [phone] PHYS DOC NOTES: MEDICAL INFORMATION: Prescriptions Given: New Medications [facility]/pharmacy #[id number], [address], [place] [id number], [phone] promethazine (promethazine 25 mg Tab) 1 Tablets By Mouth every 4 hours for 3 Days. Refills: 0. Medications to Continue with No Changes Other Medications acetaminophen-oxycodo ne (Percocet 325 mg-5 mg Tab) 1 Tablets By Mouth every 6 hours as needed as needed for pain. Refills: 0. albuterol (albuterol HFA 90 mcg/inh MDI) 2 Puffs Inhalation 4 times a day as needed for wheezing. Refills: 0. alprazolam (Xanax 1 mg Tab) 1 Tablets By Mouth 2 times a day as needed for anxiety. aspirin (aspirin 81 mg Chew Tab) 1 Tablets Chewed every day. atorvastatin (atorvastatin 80 mg Tab) 1 Tablets By Mouth every day. Refills: 0. clopidogrel (Plavix 75 mg Tab) 1 Tablets By Mouth every day. empagliflozin (Jardiance 25 mg oral tablet) 1 Tablets By Mouth once a day (in the morning). gabapentin (gabapentin 300 mg Cap) 1 Capsules By Mouth 3 times a day. insulin glargine (Lantus Solostar Pen 100 units/mL subcutaneous solution) isosorbide mononitrate (isosorbide mononitrate 30 mg ER Tab) 1 Tablets By Mouth once a day (in the morning). Refills: 0. losartan (losartan 25 mg Tab) 1 Tablets By Mouth at bedtime. metformin (MetFORMIN (Eqv-Glucophage XR) 500 mg oral tablet, extended release) 2 Tablets By Mouth 2 times a day. metoprolol (Metoprolol tartrate 25 mg Tab) 1 Tablets By Mouth 2 times a day. naproxen (Naprosyn 500 mg Tab) 1 Tablets By Mouth 2 times a day as needed for pain. Refills: 0. nitroglycerin (nitroglycerin 0.4% rectal ointment) Rectal q12hr. Refills: 0. ondansetron (Zofran 4 mg Tab) 1 Tablets By Mouth every 8 hours as needed Nausea/Vomiting. Refills: 0. ondansetron (Zofran 4 mg Tab) 1 Tablets By Mouth every 8 hours as needed Nausea/Vomiting. Refills: 0. ondansetron (Zofran ODT 4 mg Tab-Dis) 1 Tablets By Mouth every 8 hours as needed Nausea/Vomiting. Refills: 0. ondansetron (Zofran ODT 4 mg Tab-Dis) 1 Tablets By Mouth every 8 hours. Refills: 0. ranolazine (Ranexa 500 mg Tab-ER) 1 Tablets By Mouth 2 times a day. Refills: 1. semaglutide (Ozempic) tamsulosin (Flomax 0.4 mg Cap) 1 Capsules By Mouth every day. Refills: 0. tamsulosin (Flomax 0.4 mg Cap) 1 Capsules By Mouth every day. Refills: 0. venlafaxine (Effexor XR 150 mg Cap-ER) 1 Capsules By Mouth every day. along with 75 mg cap. venlafaxine (Effexor XR 75 mg Cap-ER) 1 Capsules By Mouth every day. P (more content not included)... Normal [facility] ED Note-Physicianon 09-25-19 ED Note-Physician ED Note-Physician Basic Information Time Seen: Gunnar Rangel DO 09/25/2023 07:02 Chief Complaint dry heaves for the last two days. chills and sweats. weak. History of Present Illness 42 female presents emergency department with nausea vomiting over the last 48 hours. Patient states that she has had vomiting for 48 hours and really is just more dry heaving in the last 24 hours. She describes some chills and some sweats she feels generally weak and describes diffuse abdominal discomfort. She has had numerous abdominal surgeries including cholecystectomy appendectomy and hysterectomy. She does have some urinary incontinence over the last couple of days which is new but denies any dysuria or hematuria. She tried some leftover Zofran at home with no relief of symptoms. No other aggravating or relieving factors no other associated symptoms no other prior treatments or complaints. Family: Reviewed and noncontributory Social: lives at home Review of systems negative unless otherwise specified in the HPI. Physical Exam Vitals & Measurements T: 36.6 ?C(Oral) HR: 83(Monitored) RR: 18 BP: 105/81 SpO2: 95% HT: 160 cm WT: 105.7 kg BMI: 41.29 General: The patient appears well and in no apparent distress. Patient is resting comfortably on cart. Skin: Warm, dry, no pallor noted. Head: Normocephalic, atraumatic Neck: No JVD Eye: PERRLA, EOMI ENT: Moist mucus membranes Cardiovascular: Regular rate normal peripheral perfusion Respiratory: No respiratory distress no accessory muscle use no obvious audible wheezing Chest Wall: no deformity Musculoskeletal: normal ROM, no deformity, no swelling GI: Soft no obvious distention. No rebound or rigidity. No guarding. No tenderness. Neurological: A&O moves all extremities equal strength and symmetry Psychiatric: Cooperative and appropriate Medical Decision Making Workup in the ER has been reviewed and noted. Workup is essentially benign patient is treated here with fluids and Zofran continues to have nausea therefore she was treated with Valium and Phenergan. At this point she was able to take p.o. challenge she is feeling much better she is discharged home to follow-up in the outpatient setting return to ER if symptoms change or worsen. Assessment/Plan Gastritis (K29.70: Gastritis, unspecified, without bleeding) Ordered: promethazine, 25 mg = 1 tab(s), Oral, q4hr, X 3 day(s), # 18 tab(s), Refills(s) 0, Pharmacy: [facility]/pharmacy #[id number], 160, cm, 09/25/23 6:39:00 EDT, Height/Length Dosing, 105.7, kg, 09/25/23 6:39:00 EDT, Weight Dosing Orders: diazepam, 5 mg = 1 mL, Injection, IV Push, Once, Stop date 09/25/23 7:49:00 EDT, STAT, Start date 09/25/23 7:49:00 EDT, 09/25/23 7:49:00 EDT promethazine 25 mg + Sodium Chloride 0.9% intravenous solution 50 mL, Injection, IV Piggyback, Once, Stop date 09/25/23 7:49:00 EDT, STAT, Start date 09/25/23 7:49:00 EDT, 153 mL/hr, Infuse over 20 minute(s) Medications Administered Given diazepam 5 mg/mL Inj, 5 mg, IV Push NS 1000 ml Bolus, 1000 mL, IV ondansetron 4 mg/2 mL Inj, 4 mg, IV Push Sodium Chloride 0.9% IV Kusum 50 mL [F] 50 mL + [id number] [F] 25 mg, IV Piggyback Disposition Plan Discharge Prescription List Prescriptions promethazine 25 mg Tab, 25 mg= 1 tab(s), Oral, q4hr Follow-up With When Contact Information YANET CHAIREZ In 3 days [address] [place] [address] [phone] Business (1) Additional Instructions: Problem List/Past Medical History Ongoing Abnormal uterine bleeding Anxiety Coronary artery disease Depression Diabetes Diabetic neuropathy Fatty liver GERD (gastroesophageal reflux disease) Hemorrhoids History of [place] (myocardial infarction) HTN (hypertension) Hyperlipidemia Hypertension Insomnia Left ovarian cyst Narcotic abuse TRUONG on CPAP PCOS (polycystic ovarian syndrome) Presence of stent in coronary artery Smoker Historical CAD - Coronary artery disease DM type 2, goal HbA1c < 7% Myocardial infarction Nicotine abuse PCOS - Polycystic ovarian syndrome renal calculi Smoker 15-SEP-2013 12:37:00<$> Uterine fibroid Procedure/Surgical History PCI (08/20/2018), Abdominal hysterectomy (2019), Appendectomy (2019), Bilateral salpingo-oophorectomy , x2, Cardiac catheterization, Cardiac Stent, Dilation and curettage, Hernia repair x5, Hysterectomy, Incision AND drainage, kidney stone removal, lithotripsy. Medications Inpatient No active inpatient medications Home albuterol HFA 90 mcg/inh MDI, 2 puff(s), Inhalation, QID, PRN, Not taking aspirin 81 mg Chew Tab, 81 mg= 1 tab(s), Chewed, Daily atorvastatin 80 mg Tab, 80 mg= 1 tab(s), Oral, Daily Effexor XR 150 mg Cap-ER, 150 mg= 1 cap(s), Oral, Daily Effexor XR 75 mg Cap-ER, 75 mg= 1 cap(s), Oral, Daily Flomax 0.4 mg Cap, 0.4 mg= 1 cap(s), Oral, Daily Flomax 0.4 mg Cap, 0.4 mg= 1 cap(s), Oral, Daily gabapentin 300 mg Cap, 300 mg= 1 cap(s), Oral, TID isosorbide mononit (more content not included)... Normal [facility] Comment on above: Result Comment: Elec tronically Signed By: Gunnar Rangel DO\.br\Date and Time Signed: 09/25/23 08:59 EDT ED Patient Education Noteon 09-25-2023 ED Patient Education Note ED Patient Education Note Normal [facility] ED Patient Summaryon 024 ED Patient Summary ED Patient Summary [place] [id number] Patient Discharge Instructions Person Information Name: ALICIATERRELLRussell Melendez Age: 42 Years Arrival Date: 09/25/2023 06:33:17 Discharge Diagnosis: Gastritis Primary Care Physician: YANET CHAIREZ CNP Provider Information Primary Provider: Gunnar Rangel DO Advanced Material Analyst:None The exam and treatment you received in the Emergency Department were for an urgent problem and are not intended as complete care. It is important that you follow up with a doctor, nurse practitioner, or physician?s credentialing assistant for ongoing care. If your symptoms become worse or you do not improve as expected and you are unable to reach your usual health care provider, you should return to the Emergency Department. We are available 24 hours a day. TISH VARGAS has been given the following list of patient education materials, prescriptions and follow-up instructions: Follow-up Instructions: With: Address: When: YANET CHAIREZ [address] [place], [place] [phone] Business (1) In 3 days In the event that this physician does not participate in your insurance network, please consult with your insurance company to find a nearby participating provider. Patient Education Materials: A MESSAGE TO ALL PATIENTS REGARDING OPIOIDS PRESCRIPTION OPIOIDS: WHAT YOU NEED TO KNOW Prescription opioids can be used to help relieve embmwvoh-vj-rrwndd pain and are often prescribed following a surgery or injury, or for certain health conditions. These medications can be an important part of the treatment but also come with serious risks. It is important to work with your healthcare provider to make sure you are getting the safest, most effective care. WHAT ARE THE RISKS AND SIDE EFFECTS OF OPIOID USE? Prescription opioids carry serious risks of addiction and overdose, especially with prolonged use. An opioid overdose, often marked by slowed breathing, can cause sudden . The use of prescription opioids can have a number of side effects as well, even when taken as directed: ? Tolerance?meaning you might need to take more of the medication for the same pain relief ? Physical dependence?meaning you have symptoms of withdrawal when a medication is stopped ? Increased sensitivity to pain ? Constipation ? Nausea, vomiting, and dry mouth ? Sleepiness and dizziness ? Confusion ? Depression ? Low levels of testosterone that can result in lower sex drive, energy, and strength ? Itching and sweating RISKS ARE GREATER WITH: ? History of drug misuse, substance use disorder, or overdose ? Mental health conditions (such as depression or anxiety) ? Sleep apnea ? Older age (65 years and older) ? Avoid alcohol while taking prescription opioids. Also, unless specifically advised by your health care provider, medications to avoid include: ? Benzodiazepines (such as Xanax or Valium) ? Muscle relaxants (such as Soma or Flexeril) ? Hypnotics (such as Ambien or Lunesta) ? Other prescription opioids KNOW YOUR OPTIONS Talk to your health care provider about ways to manage your pain that don?t involve prescription opioids. Some of these options may actually work better and have fewer risks and side effects. Options may include: ? Pain relievers such as acetaminophen, ibuprofen, and naproxen ? Some medication that are also used for depression or seizures ? Physical therapy and exercise ? Cognitive behavioral therapy, a psychological, goal-directed approach, in which patients learn how to modify physical, behavioral, and emotional triggers of pain and stress. IF YOU ARE PRESCRIBED OPIOIDS FOR PAIN: ? Never take opioids in greater amounts or more often than prescribed. ? Follow up with your primary health care provider. o Work together to create a plan on how to manage your pain. o Talk about ways to help manage your pain that don?t involve prescription opioids. o Talk about any and all concerns and side effects. ? Help prevent misuse and abuse o Never sell or share prescription opioids. o Never use another person?s prescription opioids. ? Store prescription opioids in a secure place and out of reach of others (this may include visitors, children, friends, and family). ? Safely dispose of unused prescription opioids: Find your community drug take-back program or your pharmacy mail-back program, or flush them down the toilet, following guidance from the Food and Drug Administration (www.fda.gov/Drugs/Re sourcesForYou). ? Visit www.cdc.gov/drugoverd ose to learn about the risks of opioids abuse and overdose. ? If you believe you may be struggling with addiction, tell your health child care teacher and ask for guidance or call [facility]?S National Helpline at 0-294-339-TJHB. y Source: [employer] Department of Health and (more content not included)... Normal [facility] HEMATOLOGYOrdered By: SYSTEM SYSTEM on 09-25-2023 Basophils/100 WBC (Bld) 0.7 % Normal 0.0 - 2.0 % Remisol Heme Basophils/Leukocytes Auto (Bld) [Pure # fraction] 0.1 E9/L Normal 0.0 - 0.2 E9/L Remisol Heme Eosinophils (Bld) [#/Vol] 0.1 E9/L Normal 0.0 - 0.5 E9/L Remisol Heme Eosinophils/100 WBC (Bld) 1.1 % Normal 0.0 - 8.0 % Remisol Heme Erythrocyte distribution width (RBC) [Ratio] 14.3 % High 10.9 - 14.2 % Remisol Heme Hematocrit (Bld) [Volume fraction] 44.5 % Normal 34.0 - 46.0 % [facility] Hemoglobin (Bld) [Mass/Vol] 15.0 g/dL Normal 12.0 - 16.0 gm/dL [facility] Lymphocytes (Bld) [#/Vol] 1.7 E9/L Normal 1.0 - 4.0 E9/L [facility] Lymphocytes/100 WBC (Bld) 19.9 % Normal 14.0 - 50.0 % [facility] MCH (RBC) [Entitic mass] 31.2 pg Normal 27.0 - 34.0 pg [facility]e MCHC (RBC) [Mass/Vol] 33.7 g/dL Normal 31.4 - 36.0 gm/dL [facility] MCV (RBC) [Entitic vol] 92.5 fL Normal 80.0 - 100.0 fL [facility] Monocytes (Bld) [#/Vol] 0.4 E9/L Normal 0.2 - 1.0 E9/L [facility] Monocytes/100 WBC (Bld) 4.5 % Normal 4.0 - 14.0 % [facility] Neutrophils (Bld) [#/Vol] 6.3 E9/L Normal 2.0 - 7.5 E9/L [facility] Neutrophils/100 WBC (Bld) 73.8 % Normal 36.0 - 75.0 % [facility] Platelet mean volume (Bld) [Entitic vol] 8.5 fL Normal 6.4 - 10.8 fL [facility] Platelets (Bld) [#/Vol] 229.0 E9/L Normal 150.0 - 500.0 E9/L [facility] RBC (Bld) [#/Vol] 4.8 E12/L Normal 4.3 - 5.9 E12/L [facility] WBC corrected for nucl RBC Auto (Bld) [#/Vol] 8.6 E9/L Normal 4.0 - 11.0 E9/L [facility] Hep Func Panelon 09-25-2023 Albumin [Mass/Vol] 4.7 g/dL Normal 3.3-5.0 [facility] Comment on above: Performed By: #### 2 [id number] #### [facility] [address] [place] [address] Albumin/Globulin (S) [Mass conc ratio] 1.6 Normal 1.1-2.2 [facility] Comment on above: Performed By: #### 2 [id number] #### [facility] [address] [place] [address] ALP [Catalytic activity/Vol] 105 Int._Unit/L High 21-98 [facility] Comment on above: Performed By: #### 2 [id number] #### [facility] [address] [place] [address] ALT No additional P-5'-P [Catalytic activity/Vol] 9 Int._Unit/L Normal 6-46 [facility] Comment on above: Performed By: #### 2 [id number] #### [facility] [address] [place] [address] AST [Catalytic activity/Vol] 18 Int._Unit/L Normal 5-43 [facility] Comment on above: Performed By: #### 2 [id number] #### [facility] [address] [place] [address] Bilirubin [Mass/Vol] 0.6 mg/dL Normal 0.0-1.1 [facility] Comment on above: Performed By: #### 2 [id number] #### [facility] [address] [place] [address] Bilirubin.direct [Mass/Vol] 0.1 mg/dL Normal 0.0-0.4 [facility] Comment on above: Performed By: #### 2 [id number] #### [facility] [address] [place] [address] Bilirubin.indirect [Mass or moles/Vol] 0.5 mg/dL Normal 0.1-0.9 [facility] Comment on above: Performed By: #### 2 [id number] #### [facility] [address] [place] [address] Globulin (S) [Mass/Vol] 2.9 g/dL Normal 1.4-4.0 [facility] Comment on above: Performed By: #### 2 [id number] #### [facility] [address] [place] [address] Protein [Mass/Vol] 7.6 g/dL Normal 6.0-7.8 [facility] Comment on above: Performed By: #### 2 [id number] #### [facility] [address] [place] [address] Lipase Levelon 09-25-2023 Lipase [Catalytic activity/Vol] 76 U/L High 13-58 [facility] Comment on above: Performed By: #### 2 [id number] #### [facility] [address] [place] [address] MICRO OTHER TESTSOrdered By: Noa Choi on 09-25-2023 Rapid COV Int NEG Ctl Pass (09/25/23 6:45 AM) Normal [facility] Man Sero Rapid COV Int POS Ctl Pass (09/25/23 6:45 AM) Normal [facility] Man Sero SARS-CoV+SARS-CoV-2 (COVID-19) Ag IA.rapid Ql (Resp) Not Detected 2 (09/25/23 6:45 AM) Normal Not Detected [facility] Man Sero Comment on above: Interpretive Data: Sriram amadeo [employer] Ver[employer] System for Rapid Detection of SARS-CoV-2 is a chromatographic digital immunoassay intended for the direct and qualitative detection of SARS-CoV-2 nucleocapsid antigens in nasal swabs from individuals who are suspected of COVID-19 by their healthcare provider within the first five days of the onset of symptoms. Negative results should be treated as presumptive, do not rule out SARS-CoV-2 infection and should not be used as the sole basis for treatment or patient management decisions, including infection control decisions. Negative results should be considered in the context of a patient s recent exposures, history and the presence of clinical signs and symptoms consistent with COVID-19, and confirmed with a molecular assay, if necessary, for patient management. For in vitro diagnostic use. In the [place], only for use under an Emergency Use Authorization. In the [place], this test has not been FDA cleared or approved; this test has been authorized by FDA under an EUA for use by authorized laboratories; use by laboratories certified under the CLIA, 42 U.S.C. 263a, that meet requirements to perform moderate, high, or waived complexity tests and at the Point of Care (POC), i.e., in patient care settings operating under a CLIA Certificate of Waiver, Certificate of Compliance, or Certificate of Accreditation. This test has been authorized only for the detection of proteins from SARS-CoV-2, not for any other viruses or pathogens; and, in the [place], this test is only authorized for the duration of the declaration that circumstances exist justifying the authorization of emergency use of in vitro diagnostics for detection and/or diagnosis of the virus that causes COVID-19 under Section 564(b)(1) of the Act, 21 U.S.C. 360bbb-3(b)(1), unless the authorization is terminated or revoked sooner. Rapid COVID Antigen ([facility])on 09-25-2023 Rapid COV Int NEG Ctl Pass Normal Fis [facility] Comment on above: Performed By: #### 2 [id number] #### [facility] [address] [place] [address] Rapid COV Int POS Ctl Pass Normal Fis [facility] Comment on above: Performed By: #### 2 [id number] #### [facility] [address] [place] [address] SARS-CoV+SARS-CoV-2 (COVID-19) Ag IA.rapid Ql (Resp) Not detected Normal Not Detected [facility] Comment on above: Result Comment: The [employer] System for Rapid Detection of SARS-CoV-2 is a chromatographic digital immunoassay intended for the direct and qualitative detection of SARS-CoV-2 nucleocapsid antigens in nasal swabs from individuals who are suspected of COVID-19 by their healthcare provider within the first five days of the onset of symptoms. Negative results should be treated as presumptive, do not rule out SARS-CoV-2 infection and should not be used as the sole basis for treatment or patient management decisions, including infection control decisions. Negative results should be considered in the context of a patient?s recent exposures, history and the presence of clinical signs and symptoms consistent with COVID-19, and confirmed with a molecular assay, if necessary, for patient management. For in vitro diagnostic use. In the [facility], only for use under an Emergency Use Authorization. In the [place], this test has not been FDA cleared or approved; this test has been authorized by FDA under an EUA for use by authorized laboratories; use by laboratories certified under the CLIA, 42 U.S.C. ?263a, that meet requirements to perform moderate, high, or waived complexity tests and at the Point of Care (POC), i.e., in patient care settings operating under a CLIA Certificate of Waiver, Certificate of Compliance, or Certificate of Accreditation. This test has been authorized only for the detection of proteins from SARS-CoV-2, not for any other viruses or pathogens; and, in the [place], this test is only authorized for the duration of the declaration that circumstances exist justifying the authorization of emergency use of in vitro diagnostics for detection and/or diagnosis of the virus that causes COVID-19 under Section 564(b)(1) of the Act, 21 U.S.C. ? 360bbb-3(b)(1), unless the authorization is terminated or revoked sooner. Performed By: #### 2 [id number] #### [facility] [address] [place] [address] SEROLOGYOrdered By: Noa marrero on 09-25-2023 HCG.beta subunit (U) [Moles/Vol] Negative Normal [facility] Man Sero U BetaHcg Qualon 09-25-2023 HCG.beta subunit (U) [Moles/Vol] Negative Normal [facility] Comment on above: Performed By: #### 2 [id number] #### [facility] [address] [id number] UA with Cult Rflxon 09-25-19 24 Bilirubin Ql (U) Negative Normal Negative [facility] Comment on above: Performed By: #### 4 [id number] #### [facility] [address] [place] [address] Clarity (U) Clear Normal Clear [facility] Comment on above: Performed By: #### 4 [id number] #### [facility] [address] [place] [address] Color (U) Light-Yellow Normal Yellow [facility] Comment on above: Result Comment: Micr oscopic readings are only performed on those samples that meet specific criteria set forth by [facility]. Performed By: #### 4 [id number] #### [facility] [address] [place] [address] Glucose Ql (U) 4+ mg/dL Abnormal Negative [facility] Comment on above: Performed By: #### 4 [id number] #### [facility] [address] [place] [address] Hemoglobin Auto test strip (U) [Mass/Vol] Negative Normal Negative [facility] Comment on above: Performed By: #### 4 [id number] #### [facility] [address] [place] [address] Ketones Auto test strip Ql (U) Trace Abnormal Negative [facility] Comment on above: Performed By: #### 4 [id number] #### [facility] [address] [place] [address] Leukocyte esterase Auto test strip Ql (U) Negative Normal Negative [facility] Comment on above: Performed By: #### 4 [id number] #### [facility] [address] [place] [address] Nitrite Auto test strip Ql (U) Negative Normal Negative [facility] Comment on above: Performed By: #### 4 [id number] #### [facility] [address] [place] [address] pH (U) 5.0 [pH] Invalid Interpretation Code 5.0-9.0 [facility] Comment on above: Performed By: #### 4 [id number] #### [facility] [address] [place] [address] Protein Ql (U) Negative Normal Negative [facility] Comment on above: Performed By: #### 4 [id number] #### [facility] [address] [place] [address] Specific gravity (U) [Rel density] 1.027 Invalid Interpretation Code 1.005-1.030 [facility] Comment on above: Performed By: #### 4 [id number] #### [facility] [address] [place] [address] Urobilinogen (U) [Mass/Vol] Negative Normal Negative [facility] Comment on above: Performed By: #### 4 [id number] #### [facility] [address] [place] [address] Type of Urine collection method Clean Catch Normal [facility] Comment on above: Performed By: #### 4 [id number] #### [facility] [address] [place] [address] URINALYSISOrdered By: SYSTEM SYSTEM on 09-25-2023 Bilirubin Ql (U) Negative Normal Negativemg/ d L [facility] UA Auto SS Clarity (U) Clear (09/25/23 6:45 AM) Normal Clear [facility] UA Auto SS Color (U) Light-Yellow 1 (09/25/23 6:45 AM) Normal Yellow [facility] UA Auto SS Comment on above: Interpretive Data: M icroscopic readings are only performed on those samples that meet specific criteria set forth by [facility]. Glucose Ql (U) 4+ mg/dL Invalid Interpretation Code Negativemg/d L [facility] UA Auto SS Hemoglobin Auto test strip (U) [Mass/Vol] Negative Normal Negativemg/d L [facility] UA Auto SS Ketones Auto test strip Ql (U) Trace mg/dL Invalid Interpretation Code Negativemg/d L [facility] UA Auto SS Leukocyte esterase Auto test strip Ql (U) Negative Normal NegativeLeu/ uL [facility] UA Auto SS Nitrite Auto test strip Ql (U) Negative Normal Negativemg/d L [facility] UA Auto SS pH (U) 5.0 *NA* (09/25/23 6:45 AM) Invalid Interpretation Code 5.0 - 9.0 [facility] UA Auto SS Protein Ql (U) Negative Normal Negativemg/d L [facility] UA Auto SS Specific gravity (U) [Rel density] 1.027 *NA* (09/25/23 6:45 AM) Invalid Interpretation Code 1.005 - 1.030 [facility] UA Auto SS Urobilinogen (U) [Mass/Vol] Negative Normal Negativemg/d L [facility] UA Auto SS URINALYSISOrdered By: Kevin barnes on 09-25-2023 UA Spec Desc Clean Catch (09/25/23 6:45 AM) Normal [facility] UA Auto SS eGFRon 09-25-2023 eGFR 111 mL/min/1.73 m2 Normal >=59 [facility] Comment on above: Order Comment: Order added by Discern Expert. Performed By: #### 1 [id number] #### [facility] [address] [place] [address] CHEMISTRYOrdered By: SYSTEM SYSTEM on 09-19-2023 Albumin [Mass/Vol] 4.4 g/dL Normal 3.3 - 5.0 gm/dL [facility] Albumin/Globulin [Mass ratio] 1.6 {ratio} Normal 1.1 - 2.2 [facility] ALP [Catalytic activity/Vol] 102 [iU]/d High 21 - 98 Int._Unit/L [facility] ALT No additional P-5'-P [Catalytic activity/Vol] 8 [iU]/d Normal 6 - 46 Int._Unit/L [facility] Anion gap [Moles/Vol] 16 mmol/L Normal 6 - 16 mEq/L R emisol Chem AST [Catalytic activity/Vol] 16 [iU]/d Normal 5 - 43 Int._Unit/L [facility] Bilirubin [Mass/Vol] 0.4 mg/dL Normal 0.0 - 1 .1 mg/dL [facility] Calcium [Mass/Vol] 9.6 mg/dL Normal 8.9 - 11. 1 mg/dL [facility] Chloride [Moles/Vol] 107 mmol/L Normal 101 - 1 11 mmol/L [facility] CO2 [Moles/Vol] 22 mmol/L Normal 21 - 31 mmol/L [facility] Creatinine [Mass/Vol] 0.9 mg/dL Normal 0.5 - 1.3 mg/dL [facility] eGFR 82 mL/min/1.73 m2 Normal >=59mL/min /1 .73 m2 [facility] Globulin (S) [Mass/Vol] 2.7 g/dL Normal 1.4 - 4.0 gm/dL [facility] Glucose [Mass/Vol] 79 mg/dL Normal 55 - 199 mg/dL [facility] Potassium [Moles/Vol] 4.4 mmol/L Normal 3.5 - 5.3 mmol/L [facility] Protein [Mass/Vol] 7.1 g/dL Normal 6.0 - 7.8 gm/dL [facility] Sodium [Moles/Vol] 141 mmol/L Normal 135 - 145 mmol/L [facility] Urea nitrogen [Mass/Vol] 24 mg/dL High 5 - 21 mg/dL [facility] Urea nitrogen/Creatinine [Mass ratio] 27 mg/mg High 10 - 20 [facility] CHEMISTRYOrdered By: Winnie Eddy on 09-19-2023 HbA1c (Bld) [Mass fraction] 5.6 % Normal <=5.9% [facility] ChemAutoSS Albumin DL <= 20 mg/L (U) [Mass/Vol] mg/dL Normal 0.0 - 1.9 mg/dL [facility] Albumin/Creatinine DL <= 20 mg/L (U) [Mass ratio] NOT CALCULATED Invalid Interpretation Code 0.0 - 30.0 [facility] Comment on above: Interpretive Data: 3 0-300 mg/g Cr indicates an increased risk for diabetic nephropathy. >300 mg/g Cr is consistent with clinical nephropathy. U Creatinine 95.6 mg/dL Invalid Interpretation Code [facility] CMPon 09-19-2023 Albumin [Mass/Vol] 4.4 g/dL Normal 3.3-5.0 [facility] Comment on above: Performed By: #### 2 [id number] #### [facility] [address] [place] [address] Albumin/Globulin (S) [Mass conc ratio] 1.6 Normal 1.1-2.2 [facility] Comment on above: Performed By: #### 2 [id number] #### [facility] [address] [place] [address] ALP [Catalytic activity/Vol] 102 Int._Unit/L High 21-98 [facility] Comment on above: Performed By: #### 2 [id number] #### [facility] [address] [place] [address] ALT No additional P-5'-P [Catalytic activity/Vol] 8 Int._Unit/L Normal 6-46 [facility] Comment on above: Performed By: #### 2 [id number] #### [facility] [address] [place] [address] Anion gap [Moles/Vol] 16 mmol/L Normal 6-16 [facility] Comment on above: Performed By: #### 2 [id number] #### [facility] [address] [place] [address] AST [Catalytic activity/Vol] 16 Int._Unit/L Normal 5-43 [facility] Comment on above: Performed By: #### 2 [id number] #### [facility] [address] [place] [address] Bilirubin [Mass/Vol] 0.4 mg/dL Normal 0.0-1.1 [facility] Comment on above: Performed By: #### 2 [id number] #### [facility] [address] [place] [address] Calcium [Mass/Vol] 9.6 mg/dL Normal 8.9-11.1 [facility] Comment on above: Performed By: #### 2 [id number] #### [facility] [address] [place] [address] Chloride [Moles/Vol] 107 mmol/L Normal 101-111 [facility] Comment on above: Performed By: #### 2 [id number] #### [facility] [address] [place] [address] CO2 [Moles/Vol] 22 mmol/L Normal 21-31 [facility] Comment on above: Performed By: #### 2 [id number] #### [facility] [address] [place] [address] Creatinine [Mass/Vol] 0.9 mg/dL Normal 0.5-1.3 [facility] Comment on above: Performed By: #### 2 [id number] #### [facility] [address] [place] [address] Globulin (S) [Mass/Vol] 2.7 g/dL Normal 1.4-4.0 [facility] Comment on above: Performed By: #### 2 [id number] #### [facility] [address] [place] [address] Glucose [Mass/Vol] 79 mg/dL Normal 55-199 [facility] Comment on above: Performed By: #### 2 [id number] #### [facility] [address] [place] [address] Potassium [Moles/Vol] 4.4 mmol/L Normal 3.5-5.3 [facility] Comment on above: Performed By: #### 2 [id number] #### [facility] [address] [place] [address] Protein [Mass/Vol] 7.1 g/dL Normal 6.0-7.8 [facility] Comment on above: Performed By: #### 2 [id number] #### [facility] [address] [place] [address] Sodium [Moles/Vol] 141 mmol/L Normal 135-145 [facility] Comment on above: Performed By: #### 2 [id number] #### [facility] [address] [place] [address] Urea nitrogen [Mass/Vol] 24 mg/dL High 5-21 [facility] Comment on above: Performed By: #### 2 [id number] #### [facility] [address] [place] [address] Urea nitrogen/Creatinine [Mass ratio] 27 No Units High 10-20 [facility] Comment on above: Performed By: #### 2 [id number] #### [facility] [address] [place] [address] [id number] 09-19-2023 HbA1c (Bld) [Mass fraction] 5.6 % Normal <=5.9 [facility] Comment on above: Performed By: #### 7 [id number] #### [facility] [address] [place] [address] U MA/Cr Ratioon 09-19-2023 Albumin DL <= 20 mg/L (U) [Mass/Vol] mg/dL Normal 0.0-1.9 [facility] Comment on above: Performed By: #### 1 [id number] #### [facility] [address] [place] [address] Albumin/Creatinine DL <= 20 mg/L (U) [Mass ratio] NOT CALCULATED Invalid Interpretation Code .0-30.0 [facility] Comment on above: Result Comment: 30-3 00 mg/g Cr indicates an increased risk for diabetic nephropathy. >300 mg/g Cr is consistent with clinical nephropathy. Performed By: #### 1 [id number] #### [facility] [address] [place] [address] U Creatinine 95.6 mg/dL Invalid Interpretation Code [facility] Comment on above: Performed By: #### 1 [id number] #### [facility] [address] [place] [address] URINALYSISOrdered By: SYSTEM SYSTEM on 09-19-2023 Bilirubin Ql (U) Negative Normal Negativemg/ d L [facility] UA Auto SS Clarity (U) Clear (09/19/23 10:39 AM) Normal Clear [facility] UA Auto SS Color (U) Light-Yellow 1 (09/19/23 10:39 AM) Normal Yellow [facility] UA Auto SS Comment on above: Interpretive Data: M icroscopic readings are only performed on those samples that meet specific criteria set forth by [facility]. Glucose Ql (U) 4+ mg/dL Invalid Interpretation Code Negativemg/d L [facility] UA Auto SS Hemoglobin Auto test strip (U) [Mass/Vol] Negative Normal Negativemg/d L [facility] UA Auto SS Ketones Auto test strip Ql (U) Negative Normal Negativemg/d L [facility] UA Auto SS Leukocyte esterase Auto test strip Ql (U) Negative Normal NegativeLeu/ uL [facility] UA Auto SS Nitrite Auto test strip Ql (U) Negative Normal Negativemg/d L [facility] UA Auto SS pH (U) 5.5 *NA* (09/19/23 10:39 AM) Invalid Interpretation Code 5.0 - 9.0 [facility] UA Auto SS Protein Ql (U) Negative Normal Negativemg/d L [facility] UA Auto SS Specific gravity (U) [Rel density] 1.026 *NA* (09/19/23 10:39 AM) Invalid Interpretation Code 1.005 - 1.030 [facility] UA Auto SS Urobilinogen (U) [Mass/Vol] Negative Normal Negativemg/d L [facility] UA Auto SS URINALYSISOrdered By: Yoana Carver on 09-19-2023 UA Spec Desc Clean Catch (09/19/23 10:39 AM) Normal [facility] UA Auto SS Urinalysis with Microon 07-0 Bilirubin Ql (U) Negative Normal Negative [facility] Comment on above: Performed By: #### 4 [id number] #### [facility] [address] [place] [address] Clarity (U) Clear Normal Clear [facility] Comment on above: Performed By: #### 4 [id number] #### [facility] [address] [place] [address] Color (U) Light-Yellow Normal Yellow [facility] Comment on above: Result Comment: Micr oscopic readings are only performed on those samples that meet specific criteria set forth by [facility]. Performed By: #### 4 [id number] #### [facility] [address] [place] [address] Glucose Ql (U) 4+ mg/dL Abnormal Negative [facility] Comment on above: Performed By: #### 4 [id number] #### [facility] [address] [place] [address] Hemoglobin Auto test strip (U) [Mass/Vol] Negative Normal Negative [facility] Comment on above: Performed By: #### 4 [id number] #### [facility] [address] [place] [address] Ketones Auto test strip Ql (U) Negative Normal Negative [facility] Comment on above: Performed By: #### 4 [id number] #### [facility] [address] [place] [address] Leukocyte esterase Auto test strip Ql (U) Negative Normal Negative [facility] Comment on above: Performed By: #### 4 [id number] #### [facility] [address] [place] [address] Nitrite Auto test strip Ql (U) Negative Normal Negative [facility] Comment on above: Performed By: #### 4 [id number] #### [facility] [address] [place] [address] pH (U) 5.5 [pH] Invalid Interpretation Code 5.0-9.0 [facility] Comment on above: Performed By: #### 4 [id number] #### [facility] [address] [place] [address] Protein Ql (U) Negative Normal Negative [facility] Comment on above: Performed By: #### 4 [id number] #### [facility] [address] [place] [address] Specific gravity (U) [Rel density] 1.026 Invalid Interpretation Code 1.005-1.030 [facility] Comment on above: Performed By: #### 4 [id number] #### [facility] [address] [place] [address] Urobilinogen (U) [Mass/Vol] Negative Normal Negative [facility] Comment on above: Performed By: #### 4 [id number] #### [facility] [address] [place] [address] Type of Urine collection method Clean Catch Normal [facility] Comment on above: Performed By: #### 4 [id number] #### [facility] [address] [place] [address] eGFRon 09-19-2023 eGFR 82 mL/min/1.73 m2 Normal >=59 [facility] Comment on above: Order Comment: Order added by Discern Expert. Performed By: #### 1 [id number] #### [facility] [address] [place] [address] XR Chest Single Viewon 08-10 XR Chest Single View Exam Date/Time: 08/10/2023 19:31 EDT Reason for Exam: Chest pain Report IMPRESSION: NO RADIOGRAPHIC EVIDENCE OF ACUTE INTRATHORACIC PROCESS. EXAM: XR Chest Single View History: Chest pain. Shortness breath. Technique: Portable AP view of the chest. Comparison: 10/25/2022 Findings: The cardiomediastinal silhouette is within normal limits. No pneumothorax, pleural effusion, or consolidation. No acute osseous abnormality. Ordering Provider: Juan Arnold FINAL REPORT Dictated: 08/11/2023 9:45 am Ranjan Baptiste DO Signed (Electronic Signature): 08/11/2023 9:45 am Signed by: Ranjan Baptiste DO Transcribed by: FLORENTINO Technologist: ROBE Technical Comments Radiation Dose: Ka,r in mGy = na DAP = na Normal [facility] BMPon 08-10-2023 Anion gap [Moles/Vol] 13 mmol/L Normal 6-16 [facility] Comment on above: Performed By: #### 2 [id number] #### [facility] [address] [place] [address] Calcium [Mass/Vol] 9.3 mg/dL Normal 8.9-11.1 [facility] Comment on above: Performed By: #### 2 [id number] #### [facility] [address] [place] [address] Chloride [Moles/Vol] 107 mmol/L Normal 101-111 [facility] Comment on above: Performed By: #### 2 [id number] #### [facility] [address] [place] [address] CO2 [Moles/Vol] 25 mmol/L Normal 21-31 [facility] Comment on above: Performed By: #### 2 [id number] #### [facility] [address] [place] [address] Creatinine [Mass/Vol] 0.9 mg/dL Normal 0.5-1.3 [facility] Comment on above: Performed By: #### 2 [id number] #### [facility] [address] [place] [address] Glucose [Mass/Vol] 107 mg/dL Normal 55-199 [facility] Comment on above: Performed By: #### 2 [id number] #### [facility] [address] [place] [address] Potassium [Moles/Vol] 5.3 mmol/L Normal 3.5-5.3 [facility] Comment on above: Performed By: #### 2 [id number] #### [facility] [address] [place] [address] Sodium [Moles/Vol] 140 mmol/L Normal 135-145 [facility] Comment on above: Performed By: #### 2 [id number] #### [facility] [address] [place] [address] Urea nitrogen [Mass/Vol] 15 mg/dL Normal 5-21 [facility] Comment on above: Performed By: #### 2 [id number] #### [facility] [address] [place] [address] Urea nitrogen/Creatinine [Mass ratio] 17 No Units Normal 10-20 [facility] Comment on above: Performed By: #### 2 [id number] #### [facility] [address] [place] [address] CBC w/ Auto Diffon 4 Basophils/100 WBC (Bld) 0.4 % Normal 0.0-2.0 [facility] Comment on above: Performed By: #### 2 [id number] #### [facility] [address] [place] [address] Basophils/Leukocytes Auto (Bld) [Pure # fraction] 0.0 E9/L Normal 0.0-0.2 [facility] Comment on above: Performed By: #### 2 [id number] #### [facility] [address] [place] [address] Eosinophils (Bld) [#/Vol] 0.3 E9/L Normal 0.0-0.5 [facility] Comment on above: Performed By: #### 2 [id number] #### [facility] [address] [place] [address] Eosinophils/100 WBC (Bld) 3.1 % Normal 0.0-8.0 [facility] Comment on above: Performed By: #### 2 [id number] #### [facility] [address] [place] [address] Erythrocyte distribution width (RBC) [Ratio] 14.5 % High 10.9-14.2 [facility] Comment on above: Performed By: #### 2 [id number] #### [facility] [address] [place] [address] Hematocrit (Bld) [Volume fraction] 41.3 % Normal 34.0-46.0 [facility] Comment on above: Performed By: #### 2 [id number] #### [facility] [address] [place] [address] Hemoglobin (Bld) [Mass/Vol] 14.0 g/dL Normal 12.0-16.0 [facility] Comment on above: Performed By: #### 2 [id number] #### [facility] [address] [place] [address] Lymphocytes (Bld) [#/Vol] 2.9 E9/L Normal 1.0-4.0 [facility] Comment on above: Performed By: #### 2 [id number] #### [facility] [address] [place] [address] Lymphocytes/100 WBC (Bld) 30.6 % Normal 14.0-50.0 [facility] Comment on above: Performed By: #### 2 [id number] #### [facility] [address] [place] [address] MCH (RBC) [Entitic mass] 31.1 pg Normal 27.0-34.0 [facility] Comment on above: Performed By: #### 2 [id number] #### [facility] [address] [place] [address] MCHC (RBC) [Mass/Vol] 33.8 g/dL Normal 31.4-36.0 [facility] Comment on above: Performed By: #### 2 [id number] #### [facility] [address] [place] [address] MCV (RBC) [Entitic vol] 92.2 fL Normal 80.0-100.0 [facility] Comment on above: Performed By: #### 2 [id number] #### [facility] [address] [place] [address] Monocytes (Bld) [#/Vol] 0.7 E9/L Normal 0.2-1.0 [facility] Comment on above: Performed By: #### 2 [id number] #### [facility] [address] [place] [address] Neutrophils (Bld) [#/Vol] 5.7 E9/L Normal 2.0-7.5 [facility] Comment on above: Performed By: #### 2 [id number] #### [facility] [address] [place] [address] Neutrophils/100 WBC (Bld) 58.9 % Normal 36.0-75.0 [facility] Comment on above: Performed By: #### 2 [id number] #### [facility] [address] [place] [address] Platelet 215.0 E9/L Normal 150.0-500.0 [facility] Comment on above: Performed By: #### 2 [id number] #### [facility] [address] [place] [address] Platelet mean volume (Bld) [Entitic vol] 8.5 fL Normal 6.4-10.8 [facility] Comment on above: Performed By: #### 2 [id number] #### [facility] [address] [place] [address] RBC (Bld) [#/Vol] 4.5 E12/L Normal 4.3-5.9 [facility] Comment on above: Performed By: #### 2 [id number] #### [facility] [address] [place] [address] WBC corrected for nucl RBC Auto (Bld) [#/Vol] 9.6 E9/L Normal 4.0-11.0 [facility] Comment on above: Performed By: #### 2 [id number] #### [facility] [address] [place] [address] CHEMISTRYOrdered By: SYSTEM SYSTEM on 08-10-2023 Troponin pg/mL Low 10.10 - 27.10 pg/mL [facility] Comment on above: Interpretive Data: T he 95% CI (Confidence Interval) PPV (Positive Predictive Value) for myocardial infarction in females is 38 pg/mL, in males 51 pg/mL. The results should be used in conjunction with clinical conditions of myocardial infarction. (Access High Sensitivity Troponin I Instructions For Use, Meryl Goshen, October 2017) Anion gap [Moles/Vol] 13 mmol/L Normal 6 - 16 mEq/L R emisol Chem Calcium [Mass/Vol] 9.3 mg/dL Normal 8.9 - 11. 1 mg/dL [facility] Chloride [Moles/Vol] 107 mmol/L Normal 101 - 1 11 mmol/L [facility] CO2 [Moles/Vol] 25 mmol/L Normal 21 - 31 mmol/L [facility] Creatinine [Mass/Vol] 0.9 mg/dL Normal 0.5 - 1.3 mg/dL [facility] eGFR 82 mL/min/1.73 m2 Normal >=59mL/min /1 .73 m2 [facility] Glucose [Mass/Vol] 107 mg/dL Normal 55 - 199 mg/dL [facility] Potassium [Moles/Vol] 5.3 mmol/L Normal 3.5 - 5.3 mmol/L [facility] Sodium [Moles/Vol] 140 mmol/L Normal 135 - 145 mmol/L [facility] Troponin pg/mL Low 10.10 - 27.10 pg/mL [facility] Comment on above: Interpretive Data: T he 95% CI (Confidence Interval) PPV (Positive Predictive Value) for myocardial infarction in females is 38 pg/mL, in males 51 pg/mL. The results should be used in conjunction with clinical conditions of myocardial infarction. (Access High Sensitivity Troponin I Instructions For Use, Meryl Goshen, October 2017) Urea nitrogen [Mass/Vol] 15 mg/dL Normal 5 - 21 mg/dL [facility] Urea nitrogen/Creatinine [Mass ratio] 17 mg/mg Normal 10 - 20 [facility] COAGULATIONOrdered By: Michelle Palumbo on 08-10-2023 aPTT Coag (PPP) [Time] 30.5 s Normal 25.1 - 36.5 second(s) [facility] Comment on above: Interpretive Data: P arameter 15 days - 4 weeks 1 - 5 months 6 - 11 months 1 - 5 years 6 - 10 years 11 - 17 years PTT Mean: 35.4 (27.6-45.6) Mean: 33.5 (24.8-40.7) Mean: 32.4 (25.1-40.7) Mean: 31.6 (24.0-39.2) Mean: 31.6 (26.9-38.7) Mean: 31.0 (24.6-38.4) Pediatric Reference ranges were obtained from a study by Chuy Carlisle et al. prepared from 1437 samples obtained at 7 different centers using the same coagulation reagent and instrumentation as [facility]. Currently there are no coagulation studies available worldwide for children to 14 days, and no normal ranges. Heparin therapeutic range (represented by Anti-Factor Xa activity of 0.2 - 0.4 U/mL) corresponds to PTT of 56.6 - 109.0 sec. INR Coag (PPP) [Relative time] 0.80 {INR} Invalid Interpretation Code [facility] Comment on above: Interpretive Data: I NR results are specifically intended to assess patients stabilized on long-term Anticoagulation therapy suggested INR s Less Intensive Anticoagulation 2.0 3.0 Conventional Range 3.0 4.5 PT Coag (PPP) [Time] 8.9 s Low 9.4 - 1 2.5 second(s) [facility] Comment on above: Interpretive Data: 1 5 days - 4 weeks 1 - 5 months 6 -11 months 1 5 years 6 10 years 11 -17 years Mean: 11.2 (9.5 12.6) Mean: 11.0 (9.7 12.8) Mean: 11.0 (9.8 13.0) Mean: 11.3 (9.9 13.4) Mean: 11.7 (10.0 14.6) Mean: 11.8 (10.0 - 14.1) Pediatric Reference ranges were obtained from a study by Chuy Carlisle et al. prepared from 1437 samples obtained at 7 different centers using the same coagulation reagent and instrumentation as [facility]. Currently there are no coagulation studies available worldwide for children to 14 days, and no normal ranges. Consent for Treatmenton 07-15 Consent for Treatment [id number] Normal [facility] Discharge Instructionson Discharge Instructions [id number] Normal [facility] ED Clinical Summaryon 2023 ED Clinical Summary [address] [address] ED Clinical Summary Person Information Name: TISH VARGAS [place] Age: 42 Years : 1980 Sex: Female Language: Martiniquais PCP: YANET CHAIREZ CNP Marital Status: Phone: [phone] Visit Id: Visit Reason: Shortness of breath; Chest pain; CHEST PRESSURE, LOSS OF SENSATION IN ARMS Speciality: Acuity: 2 Enc Type: Emergency Med Service: Emergency Arrival: 08/10/2023 19:03:55 Discharge: 08/10/2023 22:15:24 LOS: 000 03:12 Checkin: 08/10/2023 19:03:55 Checkout: 08/10/2023 22:15:24 Dispo Type: Home (Routine DC) EVENTS: Event Name Event Status Request Date/Time Start Date/Time Complete Date/Time Arrive Complete 08/10/2023 19:03:55 08/10/2023 19:03:55 08/10/2023 19:03:55 Document Home Meds Request 08/10/2023 19:03:55 Triage Complete 08/10/2023 19:03:55 08/10/2023 19:11:02 08/10/2023 19:11:02 Bed Assign Complete 08/10/2023 19:06:17 08/10/2023 19:06:17 08/10/2023 19:06:17 Dr Exam Complete 08/10/2023 19:06:17 08/10/2023 19:06:32 08/10/2023 19:06:32 RN Exam Complete 08/10/2023 19:06:17 08/10/2023 19:50:33 08/10/2023 19:50:33 Registration Complete 08/10/2023 19:06:32 08/10/2023 19:07:23 08/10/2023 19:07:23 EKG Complete 08/10/2023 19:07:14 08/10/2023 19:11:02 Pending Labs Request 08/10/2023 19:07:14 Lab Complete 08/10/2023 19:07:14 08/10/2023 20:15:42 Patient Care Request 08/10/2023 19:07:14 RT Request 08/10/2023 19:07:14 X-Ray Complete 08/10/2023 19:07:14 08/10/2023 19:16:39 08/10/2023 19:31:24 Reg Complete Request 08/10/2023 19:07:23 Reg Bed Request Complete 08/10/2023 19:07:23 08/10/2023 19:07:23 08/10/2023 19:07:23 Dr Exam Complete 08/10/2023 19:07:26 08/10/2023 19:07:26 08/10/2023 19:07:26 Registration Request 08/10/2023 19:07:26 Isolation Screening Request 08/10/2023 19:11:03 Pending Labs Complete 08/10/2023 19:22:20 08/10/2023 19:22:20 08/10/2023 20:15:42 Lab Complete 08/10/2023 19:22:20 08/10/2023 19:22:20 08/10/2023 20:15:42 Wet Read Request 08/10/2023 19:31:24 Meds Admin Complete 08/10/2023 19:36:20 08/10/2023 19:44:18 Meds Admin Complete 08/10/2023 19:41:19 08/10/2023 19:44:18 Meds Admin Complete 08/10/2023 20:55:14 08/10/2023 21:13:57 Meds Admin Complete 08/10/2023 21:39:45 08/10/2023 22:03:43 Discharge Complete 08/10/2023 21:40:35 08/10/2023 22:15:29 08/10/2023 22:15:29 Transfer Complete 08/10/2023 22:15:29 08/10/2023 22:15:29 08/10/2023 22:15:29 ADDRESS: [facility] [id number] [facility] DOC NOTES: MEDICAL INFORMATION: Prescriptions Given: Medications to Continue with No Changes Other Medications acetaminophen-oxycodo ne (Percocet 325 mg-5 mg Tab) 1 Tablets By Mouth every 6 hours as needed as needed for pain. Refills: 0. albuterol (albuterol HFA 90 mcg/inh MDI) 2 Puffs Inhalation 4 times a day as needed for wheezing. Refills: 0. alprazolam (Xanax 1 mg Tab) 1 Tablets By Mouth 2 times a day as needed for anxiety. aspirin (aspirin 81 mg Chew Tab) 1 Tablets Chewed every day. atorvastatin (atorvastatin 80 mg Tab) 1 Tablets By Mouth every day. Refills: 0. clopidogrel (Plavix 75 mg Tab) 1 Tablets By Mouth every day. empagliflozin (Jardiance 25 mg oral tablet) 1 Tablets By Mouth once a day (in the morning). gabapentin (gabapentin 300 mg Cap) 1 Capsules By Mouth 3 times a day. insulin glargine (Lantus Solostar Pen 100 units/mL subcutaneous solution) isosorbide mononitrate (isosorbide mononitrate 30 mg ER Tab) 1 Tablets By Mouth once a day (in the morning). Refills: 0. losartan (losartan 25 mg Tab) 1 Tablets By Mouth at bedtime. metformin (MetFORMIN (Eqv-Glucophage XR) 500 mg oral tablet, extended release) 2 Tablets By Mouth 2 times a day. metoprolol (Metoprolol tartrate 25 mg Tab) 1 Tablets By Mouth 2 times a day. naproxen (Naprosyn 500 mg Tab) 1 Tablets By Mouth 2 times a day as needed for pain. Refills: 0. nitroglycerin (nitroglycerin 0.4% rectal ointment) Rectal q12hr. Refills: 0. ondansetron (Zofran 4 mg Tab) 1 Tablets By Mouth every 8 hours as needed Nausea/Vomiting. Refills: 0. ondansetron (Zofran 4 mg Tab) 1 Tablets By Mouth every 8 hours as needed Nausea/Vomiting. Refills: 0. ondansetron (Zofran ODT 4 mg Tab-Dis) 1 Tablets By Mouth every 8 hours as needed Nausea/Vomiting. Refills: 0. ondansetron (Zofran ODT 4 mg Tab-Dis) 1 Tablets By Mouth every 8 hours. Refills: 0. ranolazine (Ranexa 500 mg Tab-ER) 1 Tablets By Mouth 2 times a day. Refills: 1. semaglutide (Ozempic) tamsulosin (Flomax 0.4 mg Cap) 1 Capsules By Mouth every day. Refills: 0. tamsulosin (Flomax 0.4 mg Cap) 1 Capsules By Mouth every day. Refills: 0. venlafaxine (Effexor XR 150 mg Cap-ER) 1 Capsules By Mouth every day. along with 75 mg cap. venlafaxine (Effexor XR 75 mg Cap-ER) 1 Capsules By Mouth every day. PATIENT EDUCATION INFORMATION: Instructions: Nonspecific Chest Pain, Adult, [id number] Follow up: With: Address: When: Koko Vasquez [address], (more content not included)... [facility] ED Note-Physicianon 08-10-19 ED Note-Physician Basic Information Time Seen: Donte GUZMAN, Joseph Chávez 08/10/2023 19:06 Chief Complaint started with chest pain at 11am with shortness of breath History of Present Illness 42-year-old female reports to the emergency department with chief complaint of chest pain. Reports that started at 11 AM this morning. Reports have been worsening over the day. Reports that she just keeps thinking about it, and is getting worse. Reports on left side of her chest. Reports that she does have a history of 2 stents. 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 Denies any nausea or vomiting. She states that she is just getting more anxious. Has been taking aspirin and Plavix. She states that she does not have any belly pain. Denies any nausea or vomiting. Review of Systems A 10 point review of systems is negative except as noted above. Medical and Surgical History: Reviewed and noted Social history: Lives at home Family History: Reviewed. Tobacco: User Physical Exam Vitals & Measurements T: 36.7 ?C(Oral) HR: 68(Monitored) RR: 17 BP: 108/79 SpO2: 97% HT: 160 cm WT: 109.5 kg BMI: 42.77 General: The patient appears well and in no apparent distress. Patient is resting comfortably in bed, tearful Skin: Warm, dry, no pallor noted. Head: Normocephalic, atraumatic Neck: No JVD Eye: PERRLA, EOMI ENT: Moist mucus membranes Cardiovascular: Regular rate normal peripheral perfusion. Radial pulses +2 bilaterally Respiratory: No respiratory distress no accessory muscle use no obvious audible wheezing. Lung sounds clear to auscultation Chest Wall: no deformity Musculoskeletal: normal ROM, no deformity, no swelling GI: No obvious distention soft nontender nondistended no guarding rebounding or rigidity Neurological: A&O moves all extremities equal strength and symmetry Psychiatric: Cooperative and appropriate, anxious Medical Decision Making MEDICAL DECISION MAKING Number and Complexity of Problems Differential Diagnosis: [] [facility] Data External documents reviewed: [] My EKG interpretation: reviewed My CT interpretation: [] My X-ray interpretation: reviewed My Ultrasound interpretation: [] Decision rules/scores evaluated: Heart Score for Major Cardiac Event History: Example factors for history - pattern of chest pain, onset, duration, relation with exercise, stress or cold, localization, concominant symptoms. reaction to sublingual nitrates, [] Highly suspicious +2 [] Moderately suspicious +1 [x] Slightly suspicious 0 EKG: [] Significant ST-Depression +2 [] Non specific repolarization disturbance +1 [x] Normal 0 Age: [] >= 65 +2 [] 45-65 + 1 [x] <45 0 Risk Factors: (HLD, HTN, DM, Cigarette Smoking, Pos Family Hx, Obesity) [x] >3 risk factors or hx of atheroslerotic disease + 2 [] 1-2 risk factors + 1 [] No risk factors known 0 Troponin: [] >= 3X normal + 2 [] 1-3X normal + 1 [x] <= Normal 0 [x] 0-3 Points 0.9 - 1.7% risk of major adverse cardiac event in 6 weeks [] 4-6 Points 12-16.6% risk of major adverse cardiac event in 6 weeks [] 7-10 Points 50-65% risk of major adverse cardiac event in 6 weeks [x] 0-3 Points with 2 sets of negative cardiac markers <1% risk of major adverse cardiac event in 30 days. Discussed with: [] Treatment and Disposition ED Course: 42-year-old female reports to the emergency department with a chief complaint of chest pain. Reports been going on since 11:00 this morning. She reports that she does have a cardiac history, but feels like she is making it worse with her thinking about it more. Exam of the patient is rather benign. She is afebrile, nontachycardic. The patient was PERC negative and PE/DVT was essentially ruled out at this low risk patient. She is on aspirin and Plavix. Due to her concerns we did do a full cardiac workup on the patient. Lab reviewed noted. EKG reviewed noted. No acute changes. Chest x-ray negative. We did have 2 negative troponins less than 2.5. Patient did have a heart score of 3. With this, do not believe is cardiac cause. Discussed with patient was understanding. Patient concern for possible GERD. Given GI cocktail with improvement of symptoms. Discussed follow-up with cardiology. Follow-up with your primary care provider in 3 to 5 days. If symptoms worsen, do not improve, or new symptoms arise please report back to emergency department for further evaluation. The patient was understanding and agreeable to plan moving forward. Shared decision making: [] Code status: [] Assessment/Plan Nonspecific chest pain (R07.9: Chest pain, unspecified) Orders: acetaminophen-oxycodo ne, 1 EA, Tab, Oral, Once, Stop date 08/10/23 21:39:00 EDT, STAT, Start date 08/10/23 21:39:00 EDT Al hydroxide/Mg hydroxide/simethicone , 30 mL, Susp-Oral, Oral, Once, Stop date 08/10/23 21:39:00 EDT, STAT, Sta (more content not included)... [facility] Comment on above: Result Comment: Elec tronically Signed By: Joseph Kent PA-C\.br\Date and Time Signed: 08/10/23 23:07 EDT\.br\Electronically Co-Signed By: Juan Arnold DO.br\Date and Time Co-Signed: 08/10/23 23:55 EDT ED Patient Education Noteon 08-10-2023 ED Patient Education Note Gastroenterology Nonspecific Chest Pain Chest pain can be caused by many different conditions. Some causes of chest pain can be life-threatening. These will require treatment right away. Serious causes of chest pain include: ? Heart attack. ? A tear in the body's main blood vessel. ? Redness and swelling (inflammation) around your heart. ? Blood clot in your lungs. Other causes of chest pain may not be so serious. These include: ? Heartburn. ? Anxiety or stress. ? Damage to bones or muscles in your chest. ? Lung infections. Chest pain can feel like: ? Pain or discomfort in your chest. ? Crushing, pressure, aching, or squeezing pain. ? Burning or tingling. ? Dull or sharp pain that is worse when you move, cough, or take a deep breath. ? Pain or discomfort that is also felt in your back, neck, jaw, shoulder, or arm, or pain that spreads to any of these areas. It is hard to know whether your pain is caused by something that is serious or something that is not so serious. So it is important to see your doctor right away if you have chest pain. Follow these instructions at home: Medicines ? Take ijrt-yqd-icecoay and prescription medicines only as told by your doctor. ? If you were prescribed an antibiotic medicine, take it as told by your doctor. Do not stop taking the antibiotic even if you start to feel better. Lifestyle ? Rest as told by your doctor. ? Do not use any products that contain nicotine or tobacco, such as cigarettes, e-cigarettes, and chewing tobacco. If you need help quitting, ask your doctor. ? Do not drink alcohol. ? Make lifestyle changes as told by your doctor. These may include: ? Getting regular exercise. Ask your doctor what activities are safe for you. ? Eating a heart-healthy diet. A diet and food and nutrition services supervisor (dietitian) can help you to learn healthy eating options. ? Staying at a healthy weight. ? Treating diabetes or high blood pressure, if needed. ? Lowering your stress. Activities such as yoga and relaxation techniques can help. General instructions ? Pay attention to any changes in your symptoms. Tell your doctor about them or any new symptoms. ? Avoid any activities that cause chest pain. ? Keep all follow-up visits as told by your doctor. This is important. You may need more testing if your chest pain does not go away. Contact a doctor if: ? Your chest pain does not go away. ? You feel depressed. ? You have a fever. Get help right away if: ? Your chest pain is worse. ? You have a cough that gets worse, or you cough up blood. ? You have very bad (severe) pain in your belly (abdomen). ? You pass out (faint). ? You have either of these for no clear reason: ? Sudden chest discomfort. ? Sudden discomfort in your arms, back, neck, or jaw. ? You have shortness of breath at any time. ? You suddenly start to sweat, or your skin gets clammy. ? You feel sick to your stomach (nauseous). ? You throw up (vomit). ? You suddenly feel lightheaded or dizzy. ? You feel very weak or tired. ? Your heart starts to beat fast, or it feels like it is skipping beats. These symptoms may be an emergency. Do not wait to see if the symptoms will go away. Get medical help right away. Call your local emergency services (911 in the [place] Do not drive yourself to the hospital. Summary ? Chest pain can be caused by many different conditions. The cause may be serious and need treatment right away. If you have chest pain, see your doctor right away. ? Follow your doctor's instructions for taking medicines and making lifestyle changes. ? Keep all follow-up visits as told by your doctor. This includes visits for any further testing if your chest pain does not go away. ? Be sure to know the signs that show that your condition has become worse. Get help right away if you have these symptoms. This information is not intended to replace advice given to you by your health care provider. Make sure you discuss any questions you have with your health care provider. Document Revised: 05/16/2021 Document Reviewed: 05/16/2021 [email or web address] Patient Education ? 2022 [employer] Normal [facility] ED Patient Summaryon 024 ED Patient Summary [place] [id number] Patient Discharge Instructions Person Information Name: TISH VARGAS Age: 42 Years Arrival Date: 08/10/2023 19:03:55 Discharge Diagnosis: Nonspecific chest pain Primary Care Physician: YANET CHAIREZ CNP Provider Information Primary Provider: Juan Arnold DO Advanced Material Analyst:None The exam and treatment you received in the Emergency Department were for an urgent problem and are not intended as complete care. It is important that you follow up with a doctor, nurse practitioner, or physician?s credentialing assistant for ongoing care. If your symptoms become worse or you do not improve as expected and you are unable to reach your usual health care provider, you should return to the Emergency Department. We are available 24 hours a day. TISH VARGAS has been given the following list of patient education materials, prescriptions and follow-up instructions: Follow-up Instructions: With: Address: When: Koko Vasquez [address] [place] [address] [employer] (1) In 3 days 08/13/2023 Comments: Call Dr for diagnosis based follow up With: Address: When: YANET CHAIREZ [address] [place], [place] [phone] [facility] (1) In 3 days 08/13/2023 Comments: Call Dr for diagnosis based follow up In the event that this physician does not participate in your insurance network, please consult with your insurance company to find a nearby participating provider. Patient Education Materials: Nonspecific Chest Pain, Adult, Sfkm-cy-Zdqi A MESSAGE TO ALL PATIENTS REGARDING OPIOIDS PRESCRIPTION OPIOIDS: WHAT YOU NEED TO KNOW Prescription opioids can be used to help relieve xiemuzza-rw-ajggrk pain and are often prescribed following a surgery or injury, or for certain health conditions. These medications can be an important part of the treatment but also come with serious risks. It is important to work with your healthcare provider to make sure you are getting the safest, most effective care. WHAT ARE THE RISKS AND SIDE EFFECTS OF OPIOID USE? Prescription opioids carry serious risks of addiction and overdose, especially with prolonged use. An opioid overdose, often marked by slowed breathing, can cause sudden . The use of prescription opioids can have a number of side effects as well, even when taken as directed: ? Tolerance?meaning you might need to take more of the medication for the same pain relief ? Physical dependence?meaning you have symptoms of withdrawal when a medication is stopped ? Increased sensitivity to pain ? Constipation ? Nausea, vomiting, and dry mouth ? Sleepiness and dizziness ? Confusion ? Depression ? Low levels of testosterone that can result in lower sex drive, energy, and strength ? Itching and sweating RISKS ARE GREATER WITH: ? History of drug misuse, substance use disorder, or overdose ? Mental health conditions (such as depression or anxiety) ? Sleep apnea ? Older age (65 years and older) ? Avoid alcohol while taking prescription opioids. Also, unless specifically advised by your health care provider, medications to avoid include: ? Benzodiazepines (such as Xanax or Valium) ? Muscle relaxants (such as Soma or Flexeril) ? Hypnotics (such as Ambien or Lunesta) ? Other prescription opioids KNOW YOUR OPTIONS Talk to your health care provider about ways to manage your pain that don?t involve prescription opioids. Some of these options may actually work better and have fewer risks and side effects. Options may include: ? Pain relievers such as acetaminophen, ibuprofen, and naproxen ? Some medication that are also used for depression or seizures ? Physical therapy and exercise ? Cognitive behavioral therapy, a psychological, goal-directed approach, in which patients learn how to modify physical, behavioral, and emotional triggers of pain and stress. IF YOU ARE PRESCRIBED OPIOIDS FOR PAIN: ? Never take opioids in greater amounts or more often than prescribed. ? Follow up with your primary health care provider. o Work together to create a plan on how to manage your pain. o Talk about ways to help manage your pain that don?t involve prescription opioids. o Talk about any and all concerns and side effects. ? Help prevent misuse and abuse o Never sell or share prescription opioids. o Never use another person?s prescription opioids. ? Store prescription opioids in a secure place and out of reach of others (this may include visitors, children, friends, and family). ? Safely dispose of unused prescription opioids: Find your community drug take-back program or your pharmacy mail-back program, or flush them down the toilet, following guidance from the Food and Drug Administration (www.fda.gov/Drugs/Re sourcesForYou). ? Visit www.cdc.g (more content not included)... Normal [facility] HEMATOLOGYOrdered By: SYSTEM SYSTEM on 08-10-2023 Basophils/100 WBC (Bld) 0.4 % Normal 0.0 - 2.0 % Remisol Heme Basophils/Leukocytes Auto (Bld) [Pure # fraction] 0.0 E9/L Normal 0.0 - 0.2 E9/L Remisol Heme Eosinophils (Bld) [#/Vol] 0.3 E9/L Normal 0.0 - 0.5 E9/L Remisol Heme Eosinophils/100 WBC (Bld) 3.1 % Normal 0.0 - 8.0 % Remisol Heme Erythrocyte distribution width (RBC) [Ratio] 14.5 % High 10.9 - 14.2 % Remisol Heme Hematocrit (Bld) [Volume fraction] 41.3 % Normal 34.0 - 46.0 % Remisol Heme Hemoglobin (Bld) [Mass/Vol] 14.0 g/dL Normal 12.0 - 16.0 gm/dL Remisol Heme Lymphocytes (Bld) [#/Vol] 2.9 E9/L Normal 1.0 - 4.0 E9/L Remisol Heme Lymphocytes/100 WBC (Bld) 30.6 % Normal 14.0 - 50.0 % Remisol Heme MCH (RBC) [Entitic mass] 31.1 pg Normal 27.0 - 34.0 pg Remisol Heme MCHC (RBC) [Mass/Vol] 33.8 g/dL Normal 31.4 - 36.0 gm/dL Remisol Heme MCV (RBC) [Entitic vol] 92.2 fL Normal 80.0 - 100.0 fL Remisol Heme Monocytes (Bld) [#/Vol] 0.7 E9/L Normal 0.2 - 1.0 E9/L Remisol Heme Monocytes/100 WBC (Bld) 7.0 % Normal 4.0 - 14.0 % Remisol Heme Neutrophils (Bld) [#/Vol] 5.7 E9/L Normal 2.0 - 7.5 E9/L Remisol Heme Neutrophils/100 WBC (Bld) 58.9 % Normal 36.0 - 75.0 % Remisol Heme Platelet 215.0 E9/L Normal 150.0 - 500.0 E9/L Remisol Heme Platelet mean volume (Bld) [Entitic vol] 8.5 fL Normal 6.4 - 10.8 fL Remisol Heme RBC (Bld) [#/Vol] 4.5 E12/L Normal 4.3 - 5.9 E12/L Remisol Heme WBC corrected for nucl RBC Auto (Bld) [#/Vol] 9.6 E9/L Normal 4.0 - 11.0 E9/L Remisol Heme Monitor Recordon 08-10-2023 Monitor Record [id number]# 1.00TIFF Normal [facility] PT & PTTon 08-10-2023 aPTT Coag (PPP) [Time] 30.5 second(s) Normal 25.1-36.5 [facility] Comment on above: Result Comment: Para meter 15 days - 4 weeks 1 - 5 months 6 - 11 months 1 - 5 years 6 - 10 years 11 - 17 years PTT Mean: 35.4 (27.6-45.6) Mean: 33.5 (24.8-40.7) Mean: 32.4 (25.1-40.7) Mean: 31.6 (24.0-39.2) Mean: 31.6 (26.9-38.7) Mean: 31.0 (24.6-38.4) Pediatric Reference ranges were obtained from a study by yahaira Turk al. prepared from 1437 samples obtained at 7 different centers using the same coagulation reagent and instrumentation as [facility]. Currently there are no coagulation studies available worldwide for children to 14 days, and no normal ranges. Heparin therapeutic range (represented by Anti-Factor Xa activity of 0.2 - 0.4 U/mL) corresponds to PTT of 56.6 - 109.0 sec. Performed By: #### 1 [id number] #### [facility] [address] [place] [address] INR Coag (PPP) [Relative time] 0.80 {INR} Invalid Interpretation Code [facility] Comment on above: Result Comment: INR results are specifically intended to assess patients stabilized on long-term Anticoagulation therapy suggested INR?s ?Less Intensive Anticoagulation? 2.0 ? 3.0 Conventional Range 3.0 ? 4.5 Performed By: #### 1 [id number] #### [facility] [address] [place] [address] PT Coag (PPP) [Time] 8.9 second(s) Low 9.4-12.[address] [facility] Comment on above: Result Comment: 15 d ays - 4 weeks 1 - 5 months 6 -11 months 1 ? 5 years 6 ? 10 years 11 -17 years Mean: 11.2 (9.5 ? 12.6) Mean: 11.0 (9.7 ? 12.8) Mean: 11.0 (9.8 ? 13.0) Mean: 11.3 (9.9 ? 13.4) Mean: 11.7 (10.0 ? 14.6) Mean: 11.8 (10.0 - 14.1) Pediatric Reference ranges were obtained from a study by yahaira Turk al. prepared from 1437 samples obtained at 7 different centers using the same coagulation reagent and instrumentation as [facility]. Currently there are no coagulation studies available worldwide for children to 14 days, and no normal ranges. Performed By: #### 1 [id number] #### [facility] [address] [place] [address] Troponin 0 Hr.on 08-10-2023 Troponin I.cardiac [Mass/Vol] ng/mL Low 10.10-27.10 [facility] Comment on above: Result Comment: The 95% CI (Confidence Interval) PPV (Positive Predictive Value) for myocardial infarction in females is 38 pg/mL, in males 51 pg/mL. The results should be used in conjunction with clinical conditions of myocardial infarction. (Access High Sensitivity Troponin I Instructions For Use, [employer], October 2017) Performed By: #### 1 [id number] #### [facility] [address] [place] [address] Troponin 1 Hr.on 08-10-2023 Troponin I.cardiac [Mass/Vol] ng/mL Low 10.10-27.10 [facility] Comment on above: Order Comment: 2019 Result Comment: The 95% CI (Confidence Interval) PPV (Positive Predictive Value) for myocardial infarction in females is 38 pg/mL, in males 51 pg/mL. The results should be used in conjunction with clinical conditions of myocardial infarction. (Access High Sensitivity Troponin I Instructions For Use, [employer], October 2017) Performed By: #### 1 [id number] #### [facility] [address] [place] [address] eGFRon 08-10-2023 eGFR 82 mL/min/1.73 m2 Normal >=59 [facility] Comment on above: Order Comment: Order added by Discern Expert. Performed By: #### 1 [id number] #### [facility] [address] [place] [address] C Urineon 08-01-2023 Bacteria identified Cx Nom (U) Microbiology PROCEDURE: Urine Culture [R1] SOURCE: U CleanCatch BODY SITE: COLLECTED DATE/TIME: 07/29/2023 23:33 EDT RECEIVED DATE/TIME: 07/30/2023 00:29 EDT START DATE/TIME: 07/30/2023 00:29 EDT FREE TEXT SOURCE: Ling GUZMAN, Phoebe Dubon PA-C, Phoebe Hall FINAL REPORTS Final Report [] Verified Date/Time: 08/01/2023 09:01 EDT <10,000 cfu/ml Mixed skin contaminants Performing Locations R1: This test was performed at: [facility], [address] [place] [address], [phone] , , Normal [facility] Comment on above: Performed By: #### 2 [id number] #### [facility] [address] [place] [address] B hCG Qualon 07-30-2023 Beta HCG ( test) Ql Negative [facility] Comment on above: Performed By: #### 2 [id number] #### [facility] [address] [place] [address] BMPon 07-30-2023 Anion gap [Moles/Vol] 12 mmol/L Normal 6-16 [facility] Comment on above: Performed By: #### 2 [id number] #### [facility] [address] [place] [address] Calcium [Mass/Vol] 9.6 mg/dL Normal 8.9-11.1 [facility] Comment on above: Performed By: #### 2 [id number] #### [facility] [address] [place] [address] Chloride [Moles/Vol] 107 mmol/L Normal 101-111 [facility] Comment on above: Performed By: #### 2 [id number] #### [facility] [address] [place] [address] CO2 [Moles/Vol] 24 mmol/L Normal 21-31 [facility] Comment on above: Performed By: #### 2 [id number] #### [facility] [address] [place] [address] Creatinine [Mass/Vol] 0.8 mg/dL Normal 0.5-1.3 [facility] Comment on above: Performed By: #### 2 [id number] #### [facility] [address] [place] [address] Glucose [Mass/Vol] 103 mg/dL Normal 55-199 [facility] Comment on above: Performed By: #### 2 [id number] #### [facility] [address] [place] [address] Potassium [Moles/Vol] 4.3 mmol/L Normal 3.5-5.3 [facility] Comment on above: Performed By: #### 2 [id number] #### [facility] [address] [place] [address] Sodium [Moles/Vol] 139 mmol/L Normal 135-145 [facility] Comment on above: Performed By: #### 2 [id number] #### [facility] [address] [place] [address] Urea nitrogen [Mass/Vol] 16 mg/dL Normal 5-21 [facility] Comment on above: Performed By: #### 2 [id number] #### [facility] [address] [place] [address] Urea nitrogen/Creatinine [Mass ratio] 20 No Units Normal 10-20 [facility] Comment on above: Performed By: #### 2 [id number] #### [facility] [address] [place] [address] CBC w/ Auto Diffon 4 Basophils/100 WBC (Bld) 0.7 % Normal 0.0-2.0 [facility] Comment on above: Performed By: #### 2 [id number] #### [facility] [address] [place] [address] Basophils/Leukocytes Auto (Bld) [Pure # fraction] 0.0 E9/L Normal 0.0-0.2 [facility] Comment on above: Performed By: #### 2 [id number] #### [facility] [address] [place] [address] Eosinophils (Bld) [#/Vol] 0.2 E9/L Normal 0.0-0.5 [facility] Comment on above: Performed By: #### 2 [id number] #### [facility] [address] [place] [address] Eosinophils/100 WBC (Bld) 2.7 % Normal 0.0-8.0 [facility] Comment on above: Performed By: #### 2 [id number] #### [facility] [address] [place] [address] Erythrocyte distribution width (RBC) [Ratio] 14.1 % Normal 10.9-14.2 [facility] Comment on above: Performed By: #### 2 [id number] #### [facility] [address] [place] [address] Hematocrit (Bld) [Volume fraction] 43.6 % Normal 34.0-46.0 [facility] Comment on above: Performed By: #### 2 [id number] #### [facility] [address] [place] [address] Hemoglobin (Bld) [Mass/Vol] 14.7 g/dL Normal 12.0-16.0 [facility] Comment on above: Performed By: #### 2 [id number] #### [facility] [address] [place] [address] Lymphocytes (Bld) [#/Vol] 2.7 E9/L Normal 1.0-4.0 [facility] Comment on above: Performed By: #### 2 [id number] #### [facility] [address] [place] [address] Lymphocytes/100 WBC (Bld) 40.4 % Normal 14.0-50.0 [facility] Comment on above: Performed By: #### 2 [id number] #### [facility] [address] [place] [address] MCH (RBC) [Entitic mass] 30.9 pg Normal 27.0-34.0 [facility] Comment on above: Performed By: #### 2 [id number] #### [facility] [address] [place] [address] MCHC (RBC) [Mass/Vol] 33.6 g/dL Normal 31.4-36.0 [facility] Comment on above: Performed By: #### 2 [id number] #### [facility] [address] [place] [address] MCV (RBC) [Entitic vol] 92.0 fL Normal 80.0-100.0 [facility] Comment on above: Performed By: #### 2 [id number] #### [facility] [address] [place] [address] Monocytes (Bld) [#/Vol] 0.4 E9/L Normal 0.2-1.0 [facility] Comment on above: Performed By: #### 2 [id number] #### [facility] [address] [place] [address] Neutrophils (Bld) [#/Vol] 3.3 E9/L Normal 2.0-7.5 [facility] Comment on above: Performed By: #### 2 [id number] #### [facility] [address] [place] [address] Neutrophils/100 WBC (Bld) 50.0 % Normal 36.0-75.0 [facility] Comment on above: Performed By: #### 2 [id number] #### [facility] [address] [place] [address] Platelet 208.0 E9/L Normal 150.0-500.0 [facility] Comment on above: Performed By: #### 2 [id number] #### [facility] [address] [place] [address] Platelet mean volume (Bld) [Entitic vol] 8.4 fL Normal 6.4-10.8 [facility] Comment on above: Performed By: #### 2 [id number] #### [facility] [address] [place] [address] RBC (Bld) [#/Vol] 4.7 E12/L Normal 4.3-5.9 [facility] Comment on above: Performed By: #### 2 [id number] #### [facility] [address] [place] [address] WBC corrected for nucl RBC Auto (Bld) [#/Vol] 6.6 E9/L Normal 4.0-11.0 [facility] Comment on above: Performed By: #### 2 [id number] #### [facility] [address] [place] [address] CT Abdomen/Pelvis w/o Contra ston 07-30-2023 CT Abdomen/Pelvis w/o Contrast Exam Date/Time: 07/30/2023 00:28 EDT Reason for Exam: Abdominal pain, acute, nonlocalized;Other (please specify) Report IMPRESSION: NO OBSTRUCTING URINARY TRACT CALCULI OR HYDRONEPHROSIS. TINY NONOBSTRUCTING BILATERAL RENAL CALCULI. EXAM: CT Abdomen/Pelvis w/o Contrast History: Kidney stone. Abdominal pain. Nausea. Technique: Multiple contiguous axial images were obtained of the abdomen and pelvis from the level of the lung bases through the ischial tuberosities without contrast. Multiplanar reformats were obtained. Unless otherwise stated, incidental findings identified in this report do not require routine follow-up imaging. Comparison: CT abdomen pelvis 05/28/2023 Findings: Lung bases are clear. Lack of intravenous contrast precludes optimal evaluation of the abdominal and pelvic viscera. The unenhanced liver, gallbladder, spleen, stomach, pancreas, and adrenal glands appear within normal limits. Stable 1.2 centers simple fluid density structure of the right kidney most likely represents a cyst. There are a few tiny nonobstructing bilateral renal calculi. No left-sided hydronephrosis. No obstructing urinary tract calculi or hydronephrosis. Urinary bladder is poorly distended limiting its evaluation. No overt abnormality of the urinary bladder. The uterus is absent. Abdominal aorta is nonaneurysmal. No retroperitoneal or abdominal/pelvic lymphadenopathy. No small bowel obstruction. No overt colonic mass or pericolonic inflammation. Appendix is within normal limits. No free fluid or free air. No acute osseous abnormality. All CT scans at this facility use dose modulation, iterative reconstruction, and/or weight based dosing when appropriate to reduce radiation dose to as low as reasonably Report achievable. Ordering Provider: Janes Bowles FINAL REPORT Dictated: 07/30/2023 9:47 am Ranjan Baptiste DO Signed (Electronic Signature): 07/30/2023 9:47 am Signed by: Ranjan Baptiste DO Transcribed by: FLORENTINO Technologist: RANJIT Technical Comments Rectal Contrast Given? No Oral contrast amount in ml's: 0 Normal [facility] Discharge Instructionson Discharge Instructions [id number] .[id number] Normal [facility] ED Clinical Summaryon 2023 ED Clinical Summary [place] [id number] ED Clinical Summary Person Information Name: TISH VARGAS [facility] Age: 42 Years : 1980 Sex: Female Language: Martiniquais PCP: YANET CHAIREZ CNP Marital Status: Phone: [phone] Visit Id: Visit Reason: Chest pain; Nausea; Abdominal pain; POSS KIDNEY STONES N/V Speciality: Acuity: 3 Enc Type: Emergency Med Service: Emergency Arrival: 07/29/2023 21:12:09 Discharge: 07/30/2023 02:22:51 LOS: 000 05:10 Checkin: 07/29/2023 21:12:09 Checkout: 07/30/2023 02:22:51 Dispo Type: Home (Routine DC) EVENTS: Event Name Event Status Request Date/Time Start Date/Time Complete Date/Time Arrive Complete 07/29/2023 21:12:09 07/29/2023 21:12:09 07/29/2023 21:12:09 Document Home Meds Request 07/29/2023 21:12:09 Triage Complete 07/29/2023 21:12:09 07/29/2023 21:34:23 07/29/2023 21:34:23 Pending Labs Complete 07/29/2023 21:20:10 07/29/2023 23:55:48 Registration Complete 07/29/2023 21:24:53 07/29/2023 21:24:53 07/29/2023 21:24:53 Reg Complete Request 07/29/2023 21:24:53 Reg Bed Request Complete 07/29/2023 21:24:53 07/29/2023 21:24:53 07/29/2023 21:24:53 Pending Labs Cancel 07/29/2023 21:31:54 07/29/2023 23:57:06 Lab Cancel 07/29/2023 21:31:54 07/29/2023 23:57:06 Urine Collect Cancel 07/29/2023 21:31:54 07/29/2023 23:57:06 EKG Complete 07/29/2023 21:32:00 07/29/2023 21:41:16 Isolation Screening Request 07/29/2023 21:34:24 Bed Assign Complete 07/29/2023 23:02:50 07/29/2023 23:02:50 07/29/2023 23:02:50 Dr Exam Complete 07/29/2023 23:02:50 07/29/2023 23:04:29 07/29/2023 23:04:29 RN Exam Complete 07/29/2023 23:02:50 07/29/2023 23:34:13 07/29/2023 23:34:13 Registration Request 07/29/2023 23:04:29 Meds Admin Complete 07/29/2023 23:22:32 07/29/2023 23:41:01 Pending Labs Complete 07/29/2023 23:22:32 07/30/2023 00:31:59 Lab Complete 07/29/2023 23:22:32 07/30/2023 00:03:42 CT Complete 07/29/2023 23:22:32 07/29/2023 23:24:15 07/30/2023 00:28:13 Pending Labs Complete 07/29/2023 23:41:01 07/29/2023 23:41:01 07/30/2023 00:03:42 Lab Complete 07/29/2023 23:41:01 07/29/2023 23:41:01 07/30/2023 00:03:42 Pending Labs Inlab 07/29/2023 23:55:08 07/29/2023 23:55:08 Lab Inlab 07/29/2023 23:55:08 07/29/2023 23:55:08 Meds Admin Complete 07/30/2023 00:07:14 07/30/2023 00:10:29 Meds Admin Complete 07/30/2023 00:19:00 07/30/2023 01:09:21 Meds Admin Complete 07/30/2023 00:46:38 07/30/2023 01:09:22 Meds Admin Complete 07/30/2023 01:46:52 07/30/2023 01:50:49 Discharge Complete 07/30/2023 02:04:56 07/30/2023 02:22:55 07/30/2023 02:22:55 Transfer Complete 07/30/2023 02:22:55 07/30/2023 02:22:55 07/30/2023 02:22:55 ADDRESS: [address] [place] [id number] PHYS DOC NOTES: MEDICAL INFORMATION: Prescriptions Given: New Medications [facility]/pharmacy #[id number], [address] [place], [place] [id number], [phone] cephalexin (Keflex 500 mg Cap) 1 Capsules By Mouth 3 times a day for 5 Days. Refills: 0. phenazopyridine (Pyridium 100 mg Tab) 1 Tablets By Mouth 3 times a day for 3 Days. Refills: 0. Medications to Continue Taking That Have Changed [facility]/pharmacy #[id number], [address] [place], [place] [id number], [phone] START: ondansetron (Zofran ODT 4 mg Tab-Dis) 1 Tablets By Mouth every 8 hours. Refills: 0. Other Medications START: ondansetron (Zofran 4 mg Tab) 1 Tablets By Mouth every 8 hours as needed Nausea/Vomiting. Refills: 0. START: ondansetron (Zofran 4 mg Tab) 1 Tablets By Mouth every 8 hours as needed Nausea/Vomiting. Refills: 0. START: ondansetron (Zofran ODT 4 mg Tab-Dis) 1 Tablets By Mouth every 8 hours as needed Nausea/Vomiting. Refills: 0. Medications to Continue with No Changes Other Medications acetaminophen-oxycodo ne (Percocet 325 mg-5 mg Tab) 1 Tablets By Mouth every 6 hours as needed as needed for pain. Refills: 0. albuterol (albuterol HFA 90 mcg/inh MDI) 2 Puffs Inhalation 4 times a day as needed for wheezing. Refills: 0. alprazolam (Xanax 1 mg Tab) 1 Tablets By Mouth 2 times a day as needed for anxiety. aspirin (aspirin 81 mg Chew Tab) 1 Tablets Chewed every day. atorvastatin (atorvastatin 80 mg Tab) 1 Tablets By Mouth every day. Refills: 0. clopidogrel (Plavix 75 mg Tab) 1 Tablets By Mouth every day. empagliflozin (Jardiance 25 mg oral tablet) 1 Tablets By Mouth once a day (in the morning). gabapentin (gabapentin 300 mg Cap) 1 Capsules By Mouth 3 times a day. insulin glargine (Lantus Solostar Pen 100 units/mL subcutaneous solution) isosorbide mononitrate (isosorbide mononitrate 30 mg ER Tab) 1 Tablets By Mouth once a day (in the morning). Refills: 0. losartan (losartan 25 mg Tab) 1 Tablets By Mouth at bedtime. metformin (MetFORMIN (Eqv-Glucophage XR) 500 mg oral tablet, extended release) 2 Tablets By Mouth 2 times a day. metoprolol (Metoprolol tartrate 25 mg Tab) 1 Tablets By Mouth 2 times a day. naproxen (Naprosyn 500 mg Tab) 1 Tablets By Mouth 2 times a day as needed for pain. Refills: 0. nitrog (more content not included)... Normal [facility] ED Note-Physicianon 07-30-19 ED Note-Physician Basic Information Time Seen: Janes Bowles DO 07/29/2023 23:04 Chief Complaint Pt arrives to ed with c/o possible kidney stone pain, nausea, and chest pain. History of Present Illness Patient is a 42-year-old female with past medical history of diabetes, hypertension, hyperlipidemia, renal colic presenting to the ED for evaluation of left flank pain. Patient states the pain started around 5:30 PM with associated nausea. Patient initially told triage nurse that she had chest pain however denied any chest pain for myself. Patient states this feels like her previous kidney stones. Denies any fevers, chills, chest pain, shortness of breath, dizziness or lightheadedness. Review of Systems A 10 point review of systems is negative except as noted above. Medical and Surgical History: Reviewed and noted Social history: Lives at home Tobacco: Denies Physical Exam Vitals & Measurements T: 36.6 ?C(Tympanic) HR: 80(Monitored) RR: 16 BP: 100/69 SpO2: 96% HT: 160.02 cm WT: 119 kg BMI: 46.47 General: Well developed, non toxic appearing, no acute distress HEENT: Head atraumatic, Mucosa moist, hearing grossly normal Neck: No JVD, tracheal deviation Cardiac: Regular rate, rhythm, no murmurs, or gallops, 2+ radial pulses Respiratory: Lungs clear to auscultation B/L, normal respiratory effort Abdomen: Soft non tender, no rebound or guarding, no peritoneal signs, left CVA tenderness on examination Extremities: No edema noted in the LE B/L, no tenderness to palpation Neurologic: Alert and oriented, speech clear Skin: No rashes or lesions Psych: Appropriate mood and behavior Medical Decision Making MEDICAL DECISION MAKING Number and Complexity of Problems Differential Diagnosis: [] [facility] Data External documents reviewed: [] My EKG interpretation: [] My CT interpretation: [] My X-ray interpretation: [] My Ultrasound interpretation: [] Decision rules/scores evaluated: [] Discussed with: [] Treatment and Disposition ED Course: Patient is a 42-year-old female presenting to the ED for evaluation of left flank pain, nausea. Patient is nontoxic and on arrival, no acute distress. Does have left CVA tenderness on initial examination. Laboratory evaluation is obtained, CT ab pelvis is ordered. Patient's laboratory evaluation unremarkable exception of urinary tract infection. Is given dose of Rocephin. Initially given Toradol, Zofran, IV fluids. Patient states that Toradol does not work for her kidney stones. Is given morphine. While awaiting CT imaging results patient frequently on the call light requesting more pain medication stating that only morphine or Percocet works for her. When patient does not realize she is being observed she is texting on her phone and appears comfortable. Patient is given 1 dose of Tylenol which she states will not work for her pain. Patient OAR[place] is reviewed just filled a prescription for Y[place] on the . CT imaging does not show any obstructing kidney stones. I discussed findings with patient patient requesting pain medication for home. Explained I am not comfortable as there is no indication as she has no obstructing kidney stone as she also has just filled the prescription for Yoder 2 days ago. Patient has multiple short-term prescriptions for multiple different prescribers. Is discharged home with Pyridium, Keflex, Zofran. She is to follow-up with her primary care doctor for further evaluation management. Shared decision making: [] Code status: [] Assessment/Plan Acute UTI (urinary tract infection) (N39.0: Urinary tract infection, site not specified) Flank pain (R10.9: Unspecified abdominal pain) Orders: acetaminophen + Generic Diluent 100 mL, 1,000 mg = 100 mL, Soln-IV, IV Piggyback, Once, Stop date 07/30/23 0:46:00 EDT, STAT, Start date 07/30/23 0:46:00 EDT, 400 mL/hr, Infuse over 15 minute(s) ceftriaxone + Sodium Chloride 0.9% intravenous solution 50 mL, 1,000 mg = 1 EA, IV Piggyback, Once, Stop date 07/30/23 0:18:00 EDT, STAT, Start date 07/30/23 0:18:00 EDT, 100 mL/hr, Infuse over 30 minute(s), 07/30/23 0:18:00 EDT cephalexin, 500 mg = 1 cap(s), Oral, TID, X 5 day(s), # 15 cap(s), Refills(s) 0, Pharmacy: [facility]/pharmacy #[id number], 160, cm, 07/29/23 21:34:00 EDT, Height/Length Dosing, 119, kg, 07/29/23 21:34:00 EDT, Weight Dosing ketorolac, 30 mg = 1 mL, Injection, IV Push, Once, Stop date 07/29/23 23:22:00 EDT, STAT, Start date 07/29/23 23:22:00 EDT, 07/29/23 23:22:00 EDT morphine, 4 mg = 1 mL, Injection, IV Push, Once, Stop date 07/30/23 0:07:00 EDT, STAT, Start date 07/30/23 0:07:00 EDT, 07/30/23 0:07:00 EDT ondansetron, 4 mg = 1 tab(s), Oral, q8hr, # 12 tab(s), Refills(s) 0, Pharmacy: [facility]/pharmacy #[id number], 160, cm, 07/29/23 21:34:00 EDT, Height/Length Dosing, 119, kg, 07/29/23 21:34:00 EDT, Weight Dosing ondansetron, 4 mg = 2 mL, Injection, IV Push, Once, Stop date 07/29/23 23:22:00 EDT, STAT, Start date 07/29/23 23:22:00 EDT, 07/29/23 23:22:00 EDT oxycodone, 5 (more content not included)... [facility] Comment on above: Result Comment: Elec tronically Signed By: Janes Bowles DO\.br\Date and Time Signed: 07/30/23 03:06 EDT ED Patient Education Noteon 07-30-2023 ED Patient Education Note Obstetrics and Gynecology Urinary Tract Infection, Adult A urinary tract infection (UTI) is an infection of any part of the urinary tract. The urinary tract includes: ? The kidneys. ? The ureters. ? The bladder. ? The urethra. These organs make, store, and get rid of pee (urine) in the body. What are the causes? This infection is caused by germs (bacteria) in your genital area. These germs grow and cause swelling (inflammation) of your urinary tract. What increases the risk? The following factors may make you more likely to develop this condition: ? Using a small, thin tube (catheter) to drain pee. ? Not being able to control when you pee or poop (incontinence). ? Being female. If you are female, these things can increase the risk: ? Using these methods to prevent : ? A medicine that kills sperm (spermicide). ? A device that blocks sperm (diaphragm). ? Having low levels of a female hormone (estrogen). ? Being . You are more likely to develop this condition if: ? You have genes that add to your risk. ? You are sexually active. ? You take antibiotic medicines. ? You have trouble peeing because of: ? A prostate that is bigger than normal, if you are male. ? A blockage in the part of your body that drains pee from the bladder. ? A kidney stone. ? A nerve condition that affects your bladder. ? Not getting enough to drink. ? Not peeing often enough. ? You have other conditions, such as: ? Diabetes. ? A weak disease-fighting system (immune system). ? Sickle cell disease. ? Gout. ? Injury of the spine. What are the signs or symptoms? Symptoms of this condition include: ? Needing to pee right away. ? Peeing small amounts often. ? Pain or burning when peeing. ? Blood in the pee. ? Pee that smells bad or not like normal. ? Trouble peeing. ? Pee that is cloudy. ? Fluid coming from the vagina, if you are female. ? Pain in the belly or lower back. Other symptoms include: ? Vomiting. ? Not feeling hungry. ? Feeling mixed up (confused). This may be the first symptom in older adults. ? Being tired and grouchy (irritable). ? A fever. ? Watery poop (diarrhea). How is this treated? ? Taking antibiotic medicine. ? Taking other medicines. ? Drinking enough water. In some cases, you may need to see a specialist. Follow these instructions at home: Medicines ? Take aemc-ysd-syjebwe and prescription medicines only as told by your doctor. ? If you were prescribed an antibiotic medicine, take it as told by your doctor. Do not stop taking it even if you start to feel better. General instructions ? Make sure you: ? Pee until your bladder is empty. ? Do not hold pee for a long time. ? Empty your bladder after sex. ? Wipe from front to back after peeing or pooping if you are a female. Use each tissue one time when you wipe. ? Drink enough fluid to keep your pee pale yellow. ? Keep all follow-up visits. Contact a doctor if: ? You do not get better after 1?2 days. ? Your symptoms go away and then come back. Get help right away if: ? You have very bad back pain. ? You have very bad pain in your lower belly. ? You have a fever. ? You have chills. ? You feeling like you will vomit or you vomit. Summary ? A urinary tract infection (UTI) is an infection of any part of the urinary tract. ? This condition is caused by germs in your genital area. ? There are many risk factors for a UTI. ? Treatment includes antibiotic medicines. ? Drink enough fluid to keep your pee pale yellow. This information is not intended to replace advice given to you by your health care provider. Make sure you discuss any questions you have with your health care provider. Document Revised: 10/12/2020 Document Reviewed: 10/12/2020 [employer] Patient Education ? 2022 [employer] Orthopedics Flank Pain, Adult Flank pain is pain in your side. The flank is the area on your side between your upper belly (abdomen) and your spine. The pain may occur over a short time (acute), or it may be long-term or come back often (chronic). It may be mild or very bad. Pain in this area can be caused by many different things. Follow these instructions at home: ? Drink enough fluid to keep your pee (urine) pale yellow. ? Rest as told by your doctor. ? Take qelr-gja-vevpcux and prescription medicines only as told by your doctor. ? Keep a journal to keep track of: ? What has caused your flank pain. ? What has made your flank pain feel better. ? Keep all follow-up visits. Contact a doctor if: ? Medicine does not help your pain. ? You have new symptoms. ? Your pain gets worse. ? Your symptoms last longer than 2?3 days. ? You have trouble peeing. ? You are peeing more often than normal. Get help right away if: ? You have trouble breathing. ? You are short of (more content not included)... Normal [facility] ED Patient Summaryon 024 ED Patient Summary [address] [address] Patient Discharge Instructions Person Information Name: TISH VARGAS Age: 42 Years Arrival Date: 07/29/2023 21:12:09 Discharge Diagnosis: Acute UTI (urinary tract infection); Flank pain Primary Care Physician: YANET CHAIREZ CNP Provider Information Primary Provider: Janes Bowles DO Advanced Material Analyst:None The exam and treatment you received in the Emergency Department were for an urgent problem and are not intended as complete care. It is important that you follow up with a doctor, nurse practitioner, or physician?s credentialing assistant for ongoing care. If your symptoms become worse or you do not improve as expected and you are unable to reach your usual health care provider, you should return to the Emergency Department. We are available 24 hours a day. TISH VARGAS has been given the following list of patient education materials, prescriptions and follow-up instructions: Follow-up Instructions: With: Address: When: YANET CHAIREZ [address], [place] [id number] [phone] Business (1) In 3 days 08/02/2023 Comments: Take the antibiotics as prescribed you have completed the course. Use the Pyridium, Zofran as prescribed as needed for nausea and burning. Please follow-up with your primary care doctor for further evaluation management. In the event that this physician does not participate in your insurance network, please consult with your insurance company to find a nearby participating provider. Patient Education Materials: Urinary Tract Infection, Adult, Nenp-cy-Vvzu; Flank Pain, Adult, Ihks-xr-Exlp A MESSAGE TO ALL PATIENTS REGARDING OPIOIDS PRESCRIPTION OPIOIDS: WHAT YOU NEED TO KNOW Prescription opioids can be used to help relieve pwixqzfk-bn-cjpkzu pain and are often prescribed following a surgery or injury, or for certain health conditions. These medications can be an important part of the treatment but also come with serious risks. It is important to work with your healthcare provider to make sure you are getting the safest, most effective care. WHAT ARE THE RISKS AND SIDE EFFECTS OF OPIOID USE? Prescription opioids carry serious risks of addiction and overdose, especially with prolonged use. An opioid overdose, often marked by slowed breathing, can cause sudden . The use of prescription opioids can have a number of side effects as well, even when taken as directed: ? Tolerance?meaning you might need to take more of the medication for the same pain relief ? Physical dependence?meaning you have symptoms of withdrawal when a medication is stopped ? Increased sensitivity to pain ? Constipation ? Nausea, vomiting, and dry mouth ? Sleepiness and dizziness ? Confusion ? Depression ? Low levels of testosterone that can result in lower sex drive, energy, and strength ? Itching and sweating RISKS ARE GREATER WITH: ? History of drug misuse, substance use disorder, or overdose ? Mental health conditions (such as depression or anxiety) ? Sleep apnea ? Older age (65 years and older) ? Avoid alcohol while taking prescription opioids. Also, unless specifically advised by your health care provider, medications to avoid include: ? Benzodiazepines (such as Xanax or Valium) ? Muscle relaxants (such as Soma or Flexeril) ? Hypnotics (such as Ambien or Lunesta) ? Other prescription opioids KNOW YOUR OPTIONS Talk to your health care provider about ways to manage your pain that don?t involve prescription opioids. Some of these options may actually work better and have fewer risks and side effects. Options may include: ? Pain relievers such as acetaminophen, ibuprofen, and naproxen ? Some medication that are also used for depression or seizures ? Physical therapy and exercise ? Cognitive behavioral therapy, a psychological, goal-directed approach, in which patients learn how to modify physical, behavioral, and emotional triggers of pain and stress. IF YOU ARE PRESCRIBED OPIOIDS FOR PAIN: ? Never take opioids in greater amounts or more often than prescribed. ? Follow up with your primary health care provider. o Work together to create a plan on how to manage your pain. o Talk about ways to help manage your pain that don?t involve prescription opioids. o Talk about any and all concerns and side effects. ? Help prevent misuse and abuse o Never sell or share prescription opioids. o Never use another person?s prescription opioids. ? Store prescription opioids in a secure place and out of reach of others (this may include visitors, children, friends, and family). ? Safely dispose of unused prescription opioids: Find your community drug take-back program or your pharmacy mail-back program, or flush them down the toilet, following guidance from the Food and Drug Administr (more content not included)... Normal [facility] Hep Func Panelon 07-30-2023 Albumin [Mass/Vol] 4.5 g/dL Normal 3.3-5.0 [facility] Comment on above: Performed By: #### 2 [id number] #### [facility] [address] [place] [address] Albumin/Globulin (S) [Mass conc ratio] 2.0 Normal 1.1-2.2 [facility] Comment on above: Performed By: #### 2 [id number] #### [facility] [address] [place] [address] ALP [Catalytic activity/Vol] 99 Int._Unit/L High 21-98 [facility] Comment on above: Performed By: #### 2 [id number] #### [facility] [address] [place] [address] ALT No additional P-5'-P [Catalytic activity/Vol] 10 Int._Unit/L Normal 6-46 [facility] Comment on above: Performed By: #### 2 [id number] #### [facility] [address] [place] [address] AST [Catalytic activity/Vol] 17 Int._Unit/L Normal 5-43 [facility] Comment on above: Performed By: #### 2 [id number] #### [facility] [address] [place] [address] Bilirubin [Mass/Vol] 0.5 mg/dL Normal 0.0-1.1 [facility] Comment on above: Performed By: #### 2 [id number] #### [facility] [address] [place] [address] Bilirubin.direct [Mass/Vol] 0.1 mg/dL Normal 0.0-0.4 [facility] Comment on above: Performed By: #### 2 [id number] #### [facility] [address] [place] [address] Bilirubin.indirect [Mass or moles/Vol] 0.4 mg/dL Normal 0.1-0.9 [facility] Comment on above: Performed By: #### 2 [id number] #### [facility] [address] [place] [address] Globulin (S) [Mass/Vol] 2.3 g/dL Normal 1.4-4.0 [facility] Comment on above: Performed By: #### 2 [id number] #### [facility] [address] [place] [address] Protein [Mass/Vol] 6.8 g/dL Normal 6.0-7.8 [facility] Comment on above: Performed By: #### 2 [id number] #### [facility] [address] [place] [address] Lipase Levelon 07-30-2023 Lipase [Catalytic activity/Vol] 22 U/L Normal 13-58 [facility] Comment on above: Performed By: #### 2 [id number] #### [facility] [address] [place] [address] RAD - Preliminary Cat Scan R eporton 07-30-2023 RAD - Preliminary Cat Scan Report [id number] Normal [facility] Troponin 0 Hr.on 07-30-2023 Troponin 2.60 pg/mL Low 10.10-27.10 [facility] Comment on above: Result Comment: The 95% CI (Confidence Interval) PPV (Positive Predictive Value) for myocardial infarction in females is 38 pg/mL, in males 51 pg/mL. The results should be used in conjunction with clinical conditions of myocardial infarction. (Access High Sensitivity Troponin I Instructions For Use, Meryl castaclip, October 2017) Performed By: #### 1 [id number] #### [facility] [address] [place] [address] UA with Cult Rflxon 07-30-19 24 Bilirubin Ql (U) Negative Normal Negative [facility] Comment on above: Performed By: #### 4 [id number] #### [facility] [address] [place] [address] Clarity (U) Turbid Abnormal Clear [facility] Comment on above: Performed By: #### 4 [id number] #### [facility] [address] [place] [address] Color (U) [place] Abnormal Yellow [facility] Comment on above: Result Comment: Micr oscopic readings are only performed on those samples that meet specific criteria set forth by [facility]. Performed By: #### 4 [id number] #### [facility] [address] [place] [address] Glucose Ql (U) 4+ mg/dL Abnormal Negative [facility] Comment on above: Performed By: #### 4 [id number] #### [facility] [address] [place] [address] Hemoglobin Auto test strip (U) [Mass/Vol] 3+ mg/dL Abnormal Negative [facility] Comment on above: Performed By: #### 4 [id number] #### [facility] [address] [place] [address] Ketones Auto test strip Ql (U) Negative Normal Negative [facility] Comment on above: Performed By: #### 4 [id number] #### [facility] [address] [place] [address] Leukocyte esterase Auto test strip Ql (U) 500 Simona/uL Abnormal Negative [facility] Comment on above: Performed By: #### 4 [id number] #### [facility] [address] [place] [address] Nitrite Auto test strip Ql (U) Negative Normal Negative [facility] Comment on above: Performed By: #### 4 [id number] #### [facility] [address] [place] [address] pH (U) 5.5 [pH] Invalid Interpretation Code 5.0-9.0 [facility] Comment on above: Performed By: #### 4 [id number] #### [facility] [address] [place] [address] Protein Ql (U) 1+ mg/dL Abnormal Negative [facility] Comment on above: Performed By: #### 4 [id number] #### [facility] [address] [place] [address] Specific gravity (U) [Rel density] 1.019 Invalid Interpretation Code 1.005-1.030 [facility] Comment on above: Performed By: #### 4 [id number] #### [facility] [address] [place] [address] Urobilinogen (U) [Mass/Vol] Negative Normal Negative [facility] Comment on above: Performed By: #### 4 [id number] #### [facility] [address] [place] [address] Bacteria Auto Ql (U) 2+ /HPF Abnormal Trace Fish [facility] Comment on above: Performed By: #### 4 [id number] #### [facility] [address] [place] [address] Epithelial cells.squamous Auto (Urine sed) [#/Area] 3-4 Abnormal 0-2 [facility] Comment on above: Performed By: #### 4 [id number] #### [facility] [address] [place] [address] Mucus Auto Ql (U) Trace Normal Negative [facility] Comment on above: Performed By: #### 4 [id number] #### [facility] [address] [place] [address] RBC Ql (U) 4-20 Abnormal 0-3 [facility] Comment on above: Performed By: #### 4 [id number] #### [facility] [address] [place] [address] WBC Auto (Urine sed) [#/Area] 0-5 Normal 0-5 [facility] Comment on above: Performed By: #### 4 [id number] #### [facility] [address] [place] [address] eGFRon 05-16-2024 eGFR 94 mL/min/1.73 m2 Normal >=59 [facility] Comment on above: Order Comment: Order added by Discern Expert. Performed By: #### 1 [id number] #### [facility] [address] [place] [address] CHEMISTRYOrdered By: SYSTEM SYSTEM on 07-29-2023 Albumin [Mass/Vol] 4.5 g/dL Normal 3.3 - 5.0 gm/dL [facility] Albumin/Globulin [Mass ratio] 2.0 {ratio} Normal 1.1 - 2.2 [facility] ALP [Catalytic activity/Vol] 99 [iU]/d High 21 - 98 Int._Unit/L [facility] ALT No additional P-5'-P [Catalytic activity/Vol] 10 [iU]/d Normal 6 - 46 Int._Unit/L [facility] Anion gap [Moles/Vol] 12 mmol/L Normal 6 - 16 mEq/L R [facility] AST [Catalytic activity/Vol] 17 [iU]/d Normal 5 - 43 Int._Unit/L [facility] Bilirubin [Mass/Vol] 0.5 mg/dL Normal 0.0 - 1 .1 mg/dL [facility] Bilirubin.direct [Mass/Vol] 0.1 mg/dL Normal 0.0 - 0.4 mg/dL [facility] Bilirubin.indirect [Mass or moles/Vol] 0.4 mg/dL Normal 0.1 - 0.9 mg/dL [facility] Calcium [Mass/Vol] 9.6 mg/dL Normal 8.9 - 11. 1 mg/dL [facility] Chloride [Moles/Vol] 107 mmol/L Normal 101 - 1 11 mmol/L [facility] CO2 [Moles/Vol] 24 mmol/L Normal 21 - 31 mmol/L [facility] Creatinine [Mass/Vol] 0.8 mg/dL Normal 0.5 - 1.3 mg/dL [facility] eGFR 94 mL/min/1.73 m2 Normal >=59mL/min /1 .73 m2 [facility] Globulin (S) [Mass/Vol] 2.3 g/dL Normal 1.4 - 4.0 gm/dL [facility] Glucose [Mass/Vol] 103 mg/dL Normal 55 - 199 mg/dL [facility] Lipase [Catalytic activity/Vol] 22 U/L Normal 13 - 58 unit/L [facility] Potassium [Moles/Vol] 4.3 mmol/L Normal 3.5 - 5.3 mmol/L [facility] Protein [Mass/Vol] 6.8 g/dL Normal 6.0 - 7.8 gm/dL [facility] Sodium [Moles/Vol] 139 mmol/L Normal 135 - 145 mmol/L [facility] Troponin 2.60 pg/mL Low 10.10 - 27.10 pg/mL [facility] Comment on above: Interpretive Data: T he 95% CI (Confidence Interval) PPV (Positive Predictive Value) for myocardial infarction in females is 38 pg/mL, in males 51 pg/mL. The results should be used in conjunction with clinical conditions of myocardial infarction. (Access High Sensitivity Troponin I Instructions For Use, Meryl [place], October 2017) Urea nitrogen [Mass/Vol] 16 mg/dL Normal 5 - 21 mg/dL [facility] Urea nitrogen/Creatinine [Mass ratio] 20 mg/mg Normal 10 - 20 [facility] Consent for Treatmenton 07-14 Consent for Treatment [id number] Normal [facility] HEMATOLOGYOrdered By: SYSTEM SYSTEM on 07-29-2023 Basophils/100 WBC (Bld) 0.7 % Normal 0.0 - 2.0 % [facility] Basophils/Leukocytes Auto (Bld) [Pure # fraction] 0.0 E9/L Normal 0.0 - 0.2 E9/L [facility] Eosinophils (Bld) [#/Vol] 0.2 E9/L Normal 0.0 - 0.5 E9/L [facility] Eosinophils/100 WBC (Bld) 2.7 % Normal 0.0 - 8.0 % [facility] Erythrocyte distribution width (RBC) [Ratio] 14.1 % Normal 10.9 - 14.2 % [facility] Hematocrit (Bld) [Volume fraction] 43.6 % Normal 34.0 - 46.0 % [facility] Hemoglobin (Bld) [Mass/Vol] 14.7 g/dL Normal 12.0 - 16.0 gm/dL [facility] Lymphocytes (Bld) [#/Vol] 2.7 E9/L Normal 1.0 - 4.0 E9/L [facility] Lymphocytes/100 WBC (Bld) 40.4 % Normal 14.0 - 50.0 % [facility] MCH (RBC) [Entitic mass] 30.9 pg Normal 27.0 - 34.0 pg [facility] MCHC (RBC) [Mass/Vol] 33.6 g/dL Normal 31.4 - 36.0 gm/dL [facility] MCV (RBC) [Entitic vol] 92.0 fL Normal 80.0 - 100.0 fL [facility] Monocytes (Bld) [#/Vol] 0.4 E9/L Normal 0.2 - 1.0 E9/L [facility] Monocytes/100 WBC (Bld) 6.2 % Normal 4.0 - 14.0 % [facility] Neutrophils (Bld) [#/Vol] 3.3 E9/L Normal 2.0 - 7.5 E9/L [facility] Neutrophils/100 WBC (Bld) 50.0 % Normal 36.0 - 75.0 % [facility] Platelet 208.0 E9/L Normal 150.0 - 500.0 E9/L [facility] Platelet mean volume (Bld) [Entitic vol] 8.4 fL Normal 6.4 - 10.8 fL [facility] RBC (Bld) [#/Vol] 4.7 E12/L Normal 4.3 - 5.9 E12/L [facility] WBC corrected for nucl RBC Auto (Bld) [#/Vol] 6.6 E9/L Normal 4.0 - 11.0 E9/L [facility] SEROLOGYOrdered By: Donya Woo on 07-29-2023 Beta HCG ( test) Ql Negative (07/29/23 11:35 PM) Normal [facility] Man Sero UA with Cult Rflxon 07-29-19 Type of Urine collection method Clean Catch Normal [facility] Comment on above: Performed By: #### 4 [id number] #### [facility] [address] [place] [id number] URINALYSISOrdered By: Bruce Woo on 07-29-2023 Bacteria Auto Ql (U) 2+ /HPF Invalid Interpretation Code Trace/HPF [facility] UA Auto SS Epithelial cells.squamous Auto (Urine sed) [#/Area] 3-4 graded/HPF Invalid Interpretation Code 0-2graded/HP F [facility] UA Auto SS Mucus Auto Ql (U) Trace Normal Negative [facility] UA Auto SS RBC Ql (U) 4-20 graded/HPF Invalid Interpretation Code 0-3graded/HP F [facility] UA Auto SS WBC Auto (Urine sed) [#/Area] 0-5 graded/HPF Normal 0-5graded/HP F [facility] UA Auto SS URINALYSISOrdered By: SYSTEM SYSTEM on 07-29-2023 Bilirubin Ql (U) Negative Normal Negativemg/ d L [facility] UA Auto SS Clarity (U) Turbid *ABN* (07/29/23 11:33 PM) Invalid Interpretation Code Clear [facility] UA Auto SS Color (U) [place] 1 *ABN* (07/29/23 11:33 PM) Invalid Interpretation Code Yellow [facility] UA Auto SS Comment on above: Interpretive Data: M icroscopic readings are only performed on those samples that meet specific criteria set forth by [facility]. Glucose Ql (U) 4+ mg/dL Invalid Interpretation Code Negativemg/d L [facility] UA Auto SS Hemoglobin Auto test strip (U) [Mass/Vol] 3+ mg/dL Invalid Interpretation Code Negativemg/d L [facility] UA Auto SS Ketones Auto test strip Ql (U) Negative Normal Negativemg/d L [facility] UA Auto SS Leukocyte esterase Auto test strip Ql (U) 500 Simona/uL Simona/uL Invalid Interpretation Code NegativeLeu/ uL [facility] UA Auto SS Nitrite Auto test strip Ql (U) Negative Normal Negativemg/d L [facility] UA Auto SS pH (U) 5.5 *NA* (07/29/23 11:33 PM) Invalid Interpretation Code 5.0 - 9.0 [facility] UA Auto SS Protein Ql (U) 1+ mg/dL Invalid Interpretation Code Negativemg/d L [facility] UA Auto SS Specific gravity (U) [Rel density] 1.019 *NA* (07/29/23 11:33 PM) Invalid Interpretation Code 1.005 - 1.030 [facility] UA Auto SS Urobilinogen (U) [Mass/Vol] Negative Normal Negativemg/d L [facility] UA Auto SS URINALYSISOrdered By: Phoebe Dubon on 07-29-2023 UA Spec Desc Clean Catch (07/29/23 11:33 PM) Normal [facility] UA Auto SS CT Abdomen/Pelvis w/o Contra ston 05-28-2023 CT Abdomen/Pelvis w/o Contrast Exam Date/Time: 05/28/2023 14:21 EDT Reason for Exam: Abdominal pain, acute, nonlocalized;Other (please specify) Report IMPRESSION: NO ACUTE INTRA-ABDOMINAL PROCESS OR SIGNIFICANT CHANGE FROM 10/28/2022 IDENTIFIED. CLINICAL HISTORY: Abdominal pain, acute, nonlocalized. COMPARISON: 10/28/2022. TECHNIQUE: Spiral unenhanced images were obtained of the abdomen and pelvis without contrast. All CT scans at this facility use dose modulation, iterative reconstruction, and/or weight based dosing when appropriate to reduce radiation dose to as low as reasonably achievable. Unless otherwise stated, incidental findings identified in this report do not require routine follow-up imaging. FINDINGS: Liver: No enlargement, fatty infiltration, or suspicious lesion identified without contrast. Biliary: The gallbladder is unremarkable. No abnormal biliary ductal dilatation. Pancreas: No mass, organized fluid collection, or abnormal pancreatic ductal dilatation. Spleen: Not enlarged. No mass identified without contrast. Adrenals: Unremarkable. Kidneys: A few punctate nonobstructing renal calculi, not significantly changed from 10/28/2022.. No hydronephrosis or suspicious mass. GI tract: No abnormal dilation or wall thickening. Normal appendix. Lymph nodes: No pathologically enlarged lymph nodes. Mesentery/peritoneum: No organized fluid collection, ascites, focal inflammatory changes, or mass. Retroperitoneum: No organized fluid collection, focal inflammatory changes or mass. Vasculature: No aneurysm. Minimal calcified atherosclerotic plaquing. Pelvis: The nearly decompressed urinary bladder is otherwise unremarkable. No mass, organized fluid collection, or ascites. Previous hysterectomy. Bones/soft tissue: No acute osseous findings identified. Mild degenerative changes of the thoracolumbar spine. Chronic mild changes of anterior abdominal wall. Lower thorax: Noncontributory. Report Ordering Provider: Regis Purcell FINAL REPORT Dictated: 05/28/2023 2:55 pm Malcom Albright MD Signed (Electronic Signature): 05/28/2023 2:55 pm Signed by: Malcom Albright MD Transcribed by: FLORENTINO Technologist: MARYAN Technical Comments Rectal Contrast Given? No Oral contrast amount in ml's: 0 [facility] Consent for Treatmenton 05-14 Consent for Treatment [id number] .[id number] [facility] Discharge Instructionson Discharge Instructions [id number] 1.00TIFF [facility] ED Clinical Summaryon 2023 ED Clinical Summary [place] [id number] ED Clinical Summary Person Information Name: TISH VARGAS [facility] Age: 42 Years : 1980 Sex: Female Language: Martiniquais PCP: YANET CHAIREZ CNP Marital Status: Phone: [phone] Visit Id: Visit Reason: Nausea; Hematuria; Flank pain; ABD PAIN Speciality: Acuity: 3 Enc Type: Emergency Med Service: Emergency Arrival: 05/28/2023 12:57:53 Discharge: 05/28/2023 15:54:30 LOS: 000 02:57 Checkin: 05/28/2023 12:57:53 Checkout: 05/28/2023 15:54:30 Dispo Type: Home (Routine DC) EVENTS: Event Name Event Status Request Date/Time Start Date/Time Complete Date/Time Arrive Complete 05/28/2023 12:57:53 05/28/2023 12:57:53 05/28/2023 12:57:53 Document Home Meds Request 05/28/2023 12:57:53 Triage Complete 05/28/2023 12:57:53 05/28/2023 13:08:00 05/28/2023 13:08:00 Dr Exam Complete 05/28/2023 12:58:52 05/28/2023 12:58:52 05/28/2023 12:58:52 Registration Complete 05/28/2023 12:58:52 05/28/2023 13:01:53 05/28/2023 13:50:52 Bed Assign Complete 05/28/2023 13:01:53 05/28/2023 13:01:53 05/28/2023 13:01:53 RN Exam Complete 05/28/2023 13:01:53 05/28/2023 13:41:43 05/28/2023 13:41:43 Isolation Screening Request 05/28/2023 13:08:01 Dr Exam Complete 05/28/2023 13:20:28 05/28/2023 13:20:28 05/28/2023 13:20:28 Dr Exam Complete 05/28/2023 13:20:55 05/28/2023 13:20:55 05/28/2023 13:20:55 Meds Admin Complete 05/28/2023 13:23:13 05/28/2023 13:52:43 Pending Labs Complete 05/28/2023 13:23:13 05/28/2023 14:15:41 Lab Complete 05/28/2023 13:23:13 05/28/2023 14:15:41 Urine Collect Complete 05/28/2023 13:23:13 05/28/2023 14:15:41 CT Complete 05/28/2023 13:23:13 05/28/2023 14:09:21 05/28/2023 14:21:32 Reg Complete Request 05/28/2023 13:50:52 Reg Bed Request Complete 05/28/2023 13:50:52 05/28/2023 13:50:52 05/28/2023 13:50:52 Meds Admin Complete 05/28/2023 14:39:53 05/28/2023 14:44:56 Discharge Complete 05/28/2023 15:22:29 05/28/2023 15:54:36 05/28/2023 15:54:36 Transfer Complete 05/28/2023 15:54:36 05/28/2023 15:54:36 05/28/2023 15:54:36 ADDRESS: [address] [place] [phone] PHYS DOC NOTES: MEDICAL INFORMATION: Prescriptions Given: New Medications [id number], [address] [place], [place] [id number], [phone] ibuprofen (ibuprofen 600 mg Tab) 1 Tablets By Mouth every 8 hours for 7 Days. Refills: 0. Medications to Continue Taking That Have Changed [id number], [address] [place], [place] [id number], [phone] START: acetaminophen-oxycodo ne (Percocet 5 mg-325 mg oral tablet) 1 Tablets By Mouth every 6 hours as needed as needed for pain for 3 Days. Refills: 0. START: tamsulosin (Flomax 0.4 mg Cap) 1 Capsules By Mouth every day. Refills: 0. Other Medications START: acetaminophen-oxycodo ne (Percocet 325 mg-5 mg Tab) 1 Tablets By Mouth every 6 hours as needed as needed for pain. Refills: 0. START: tamsulosin (Flomax 0.4 mg Cap) 1 Capsules By Mouth every day. Refills: 0. Medications to Continue with No Changes Other Medications albuterol (albuterol HFA 90 mcg/inh MDI) 2 Puffs Inhalation 4 times a day as needed for wheezing. Refills: 0. alprazolam (Xanax 1 mg Tab) 1 Tablets By Mouth 2 times a day as needed for anxiety. aspirin (aspirin 81 mg Chew Tab) 1 Tablets Chewed every day. atorvastatin (atorvastatin 80 mg Tab) 1 Tablets By Mouth every day. Refills: 0. clopidogrel (Plavix 75 mg Tab) 1 Tablets By Mouth every day. empagliflozin (Jardiance 25 mg oral tablet) 1 Tablets By Mouth once a day (in the morning). gabapentin (gabapentin 300 mg Cap) 1 Capsules By Mouth 3 times a day. insulin glargine (Lantus Solostar Pen 100 units/mL subcutaneous solution) isosorbide mononitrate (isosorbide mononitrate 30 mg ER Tab) 1 Tablets By Mouth once a day (in the morning). Refills: 0. losartan (losartan 25 mg Tab) 1 Tablets By Mouth at bedtime. metformin (MetFORMIN (Eqv-Glucophage XR) 500 mg oral tablet, extended release) 2 Tablets By Mouth 2 times a day. metoprolol (Metoprolol tartrate 25 mg Tab) 1 Tablets By Mouth 2 times a day. naproxen (Naprosyn 500 mg Tab) 1 Tablets By Mouth 2 times a day as needed for pain. Refills: 0. nitroglycerin (nitroglycerin 0.4% rectal ointment) Rectal q12hr. Refills: 0. ondansetron (Zofran 4 mg Tab) 1 Tablets By Mouth every 8 hours as needed Nausea/Vomiting. Refills: 0. ondansetron (Zofran 4 mg Tab) 1 Tablets By Mouth every 8 hours as needed Nausea/Vomiting. Refills: 0. ondansetron (Zofran ODT 4 mg Tab-Dis) 1 Tablets By Mouth every 8 hours as needed Nausea/Vomiting. Refills: 0. ranolazine (Ranexa 500 mg Tab-ER) 1 Tablets By Mouth 2 times a day. Refills: 1. semaglutide (Ozempic) venlafaxine (Effexor XR 150 mg Cap-ER) 1 Capsules By Mouth every day. along with 75 mg cap. venlafaxine (Effexor XR 75 mg Cap-ER) 1 Capsules By Mouth every day. PATIENT EDUCATION INFORMATION: Instructions: Renal Colic Follow up: With: Address: When: YNAET CHAIREZ (more content not included)... [facility] ED Note-Physicianon 05-28-19 ED Note-Physician Basic Information No qualifying data available. Chief Complaint Lt flank pain radiating into groin, nausea. hx kidney stones. History of Present Illness 42 year old female presents to the emergency department today with chief complaint of left flank pain, abdominal pain, and nausea. Patient states left flank pain started yesterday and has progressively gotten worse since then. She states the pain has started to radiate into her left abdomen. She reports nausea and diaphoresis associated with pain. She states that she has trouble starting her stream, hematuria, and dysuria. She has a history of kidney stones, lithotripsies, and used to follow with Dr. Miranda. She is unsure of the last time she had a stone. She denies any chance of and states she has had a total hysterectomy. Patient denies any vomiting, chills, fevers, diarrhea, or constipation. Patient denies any further concerns for today's visit. Review of Systems A 10 point review of systems is negative except as noted above. Medical and Surgical History: Reviewed and noted Social history: Lives at home Tobacco: Denies Physical Exam Vitals & Measurements T: 36.7 ?C(Oral) HR: 77(Peripheral) RR: 16 BP: 122/75 SpO2: 97% HT: 160.02 cm WT: 115 kg BMI: 44.91 Nurses notes and vital signs reviewed and patient is not hypoxic. General: The patient appears uncomfortable. Patient is standing, hunched over the bed. Skin: Warm, dry, no pallor noted. Head: Atraumatic. Neck: No JVD. Eye: Normal conjunctiva. Ears, Nose, Mouth, and Throat: Moist mucous membranes Cardiovascular: S1, S2. Regular rate and rhythm. Strong distal pulses. Chest wall: Respiratory: Respirations are nonlabored. Lungs clear to auscultation throughout. Back: Normal range of motion, no CVA tenderness. Musculoskeletal: Normal ROM with no gross deformity. Gastrointestinal: Soft, non-distended abdomen. LLQ painful with palpation. No rebound tenderness, guarding, or rigidity. Urological: Neurological: Awake and alert. No focal deficits. Follows commands. GCS 15. Psychiatric: Cooperative. Medical Decision Making Patient seen and evaluated with the GRINDING MACHINE OPERATOR student. I had a tfax-zp-aazi interaction with the patient. I personally performed the physical exam and medical decision making. I have verified the documentation by the student is accurately representing the information obtained. Patient presents for evaluation of flank pain. She developed left-sided flank pain yesterday that got progressively worse. Complains of pain to the left leg that radiates to the left groin. She describes some spasm type pain. She had associated dysuria. She reports a history of kidney stones, the last several years ago. There is no concern today. No concern for with previous hysterectomy. Urinalysis does show hematuria, no infection. CT of the abdomen is negative per radiologist for acute findings. Renal colic is discussed with patient. The possibility of nonvisualized or passed stone discussed. She will follow-up with her urologist. She does feel improved after IV pain medications and fluids. She will be discharged home Percocet and Flomax. Patient was encouraged to return to the ED if symptoms worsen or change. Assessment/Plan Renal colic (N23: Unspecified renal colic) Ordered: acetaminophen-oxycodo ne, 1 tab(s), Oral, q6hr as needed for pain for 3 day(s), 15 tab(s), Refill(s) 0, [id number], 160, cm, 05/28/23 13:08:00 EDT, Height/Length Dosing, 115, kg, 05/28/23 13:08:00 EDT, Weight Dosing Orders: HYDROmorphone, 1 mg = 1 mL, Injection, IV Push, Once, Stop date 05/28/23 14:39:00 EDT, STAT, Start date 05/28/23 14:39:00 EDT, 05/28/23 14:39:00 EDT ketorolac, 30 mg = 1 mL, Injection, IV Push, Once, Stop date 05/28/23 13:22:00 EDT, STAT, Start date 05/28/23 13:22:00 EDT, 05/28/23 13:22:00 EDT morphine, 4 mg = 1 mL, Injection, IV Push, Once, Stop date 05/28/23 13:22:00 EDT, STAT, Start date 05/28/23 13:22:00 EDT, 05/28/23 13:22:00 EDT ondansetron, 4 mg = 2 mL, Injection, IV Push, Once, Stop date 05/28/23 13:22:00 EDT, STAT, Start date 05/28/23 13:22:00 EDT, 05/28/23 13:22:00 EDT Sodium Chloride 0.9% intravenous solution, 1,000 mL, Soln-IV, IV, Once, Stop date 05/28/23 13:22:00 EDT, STAT, Start date 05/28/23 13:22:00 EDT, Infuse over 61, minute(s) tamsulosin, 0.4 mg = 1 cap(s), Oral, Daily, # 10 cap(s), Refills(s) 0, Pharmacy: [id number], 160, cm, 05/28/23 13:08:00 EDT, Height/Length Dosing, 115, kg, 05/28/23 13:08:00 EDT, Weight Dosing CT Abdomen/Pelvis w/o Contrast UA With Cult Reflex Medications Administered Given Dilaudid 1 mg/mL injectable solution, 1 mg, IV Push ketorolac 30 mg/mL Inj 1 mL, 30 mg, IV Push morphine 4 mg/mL Inj, 4 mg, IV Push NS 1000 ml Bolus, 1000 mL, IV ondansetron 4 mg/2 mL Inj, 4 mg, IV Push Disposition Plan Patient Discharge Condition Disposition: Discharged home Condition: Improved and stable Counseled: Patient and/or family were counseled to workup, results, tr (more content not included)... [facility] Comment on above: Result Comment: Elec tronically Signed By: Regis Purcell PA-C\.br\Date and Time Signed: 05/28/23 15:38 EDT\.br\Electronically Co-Signed By: Mikaela Judd M.D.\.br\Date and Time Co-Signed: 05/28/23 17:09 EDT ED Patient Education Noteon 05-28-2023 ED Patient Education Note Urology Renal Colic Renal colic is pain that is caused by passing a kidney stone. The pain can be sharp and severe. It may be felt in the back, abdomen, side (flank), or groin. It can cause nausea. Renal colic can come and go. Follow these instructions at home: Watch your condition for any changes. The following actions may help to lessen any discomfort that you are feeling: Medicines ? Take dwxc-jno-soiwqgf and prescription medicines only as told by your health care provider. ? Do not drive or use heavy machinery while taking prescription pain medicine. Eating and drinking ? Drink enough fluid to keep your urine pale yellow. You may be instructed to drink at least 8?10 glasses of water each day. Follow instructions from your health care provider. ? If directed, change your diet. This may include: ? Limiting how much sodium you eat. You may need to eat less than 2 grams (2,000 mg) per day. ? Eating more fruits and vegetables. ? Limiting how much animal protein, such as red meat, poultry, fish, and eggs, you eat. ? Avoiding foods such as spinach, rhubarb, sweet potatoes, and nuts. These make kidney stones more likely to form. ? Follow instructions from your health care provider about eating or drinking restrictions. General instructions ? Keep all follow-up visits as told by your health care provider. This is important. ? Collect urine samples as told by your health care provider. You may need to collect a urine sample: ? 24 hours after you pass the stone. ? 8?12 weeks after passing the kidney stone, and every 6?12 months after that. ? Strain your urine every time you urinate, for as long as directed. Use the strainer that your health care provider recommends. ? Do not throw out the kidney stone after passing it. Keep the stone so it can be tested by your health care provider. Testing the makeup of your kidney stone may help understand how to prevent you from getting kidney stones in the future. Contact a health care provider if: ? You have a fever or chills. ? Your urine smells bad or looks cloudy. ? You have pain or burning when you pass urine. Get help right away if: ? Your flank pain or groin pain suddenly worsens. ? You become confused or disoriented or you lose consciousness. Summary ? Renal colic is pain that is caused by passing a kidney stone. ? Take yjis-aox-vkryjcn and prescription medicines only as told by your health care provider. ? Drink enough fluid to keep your urine pale yellow. You may be instructed to drink at least 8?10 glasses of water each day. Follow instructions from your health care provider. ? Strain your urine every time you urinate, for as long as directed. Use the strainer that your health care provider recommends. ? Do not throw out the kidney stone after passing it. Keep the stone so it can be tested by your health care provider. This information is not intended to replace advice given to you by your health care provider. Make sure you discuss any questions you have with your health care provider. Document Revised: 11/04/2021 Document Reviewed: 11/04/2021 Elsevier Patient Education ? 2022 [employer] [facility] ED Patient Summaryon 024 ED Patient Summary [address] [address] Patient Discharge Instructions Person Information Name: TISH VARGAS Age: 42 Years Arrival Date: 05/28/2023 12:57:53 Discharge Diagnosis: Renal colic Primary Care Physician: YANET CHAIREZ CNP Provider Information Primary Provider: Mikaela Judd M.D. Advanced Material Analyst:Regis Purcell PA-C The exam and treatment you received in the Emergency Department were for an urgent problem and are not intended as complete care. It is important that you follow up with a doctor, nurse practitioner, or physician?s credentialing assistant for ongoing care. If your symptoms become worse or you do not improve as expected and you are unable to reach your usual health care provider, you should return to the Emergency Department. We are available 24 hours a day. TISH VARGAS has been given the following list of patient education materials, prescriptions and follow-up instructions: Follow-up Instructions: With: Address: When: YANET CHAIREZ [address], [place] [phone] Business (1) In 3 days 05/31/2023 In the event that this physician does not participate in your insurance network, please consult with your insurance company to find a nearby participating provider. Patient Education Materials: Renal Colic A MESSAGE TO ALL PATIENTS REGARDING OPIOIDS PRESCRIPTION OPIOIDS: WHAT YOU NEED TO KNOW Prescription opioids can be used to help relieve ccankqtq-bi-uqkgwg pain and are often prescribed following a surgery or injury, or for certain health conditions. These medications can be an important part of the treatment but also come with serious risks. It is important to work with your healthcare provider to make sure you are getting the safest, most effective care. WHAT ARE THE RISKS AND SIDE EFFECTS OF OPIOID USE? Prescription opioids carry serious risks of addiction and overdose, especially with prolonged use. An opioid overdose, often marked by slowed breathing, can cause sudden . The use of prescription opioids can have a number of side effects as well, even when taken as directed: ? Tolerance?meaning you might need to take more of the medication for the same pain relief ? Physical dependence?meaning you have symptoms of withdrawal when a medication is stopped ? Increased sensitivity to pain ? Constipation ? Nausea, vomiting, and dry mouth ? Sleepiness and dizziness ? Confusion ? Depression ? Low levels of testosterone that can result in lower sex drive, energy, and strength ? Itching and sweating RISKS ARE GREATER WITH: ? History of drug misuse, substance use disorder, or overdose ? Mental health conditions (such as depression or anxiety) ? Sleep apnea ? Older age (65 years and older) ? Avoid alcohol while taking prescription opioids. Also, unless specifically advised by your health care provider, medications to avoid include: ? Benzodiazepines (such as Xanax or Valium) ? Muscle relaxants (such as Soma or Flexeril) ? Hypnotics (such as Ambien or Lunesta) ? Other prescription opioids KNOW YOUR OPTIONS Talk to your health care provider about ways to manage your pain that don?t involve prescription opioids. Some of these options may actually work better and have fewer risks and side effects. Options may include: ? Pain relievers such as acetaminophen, ibuprofen, and naproxen ? Some medication that are also used for depression or seizures ? Physical therapy and exercise ? Cognitive behavioral therapy, a psychological, goal-directed approach, in which patients learn how to modify physical, behavioral, and emotional triggers of pain and stress. IF YOU ARE PRESCRIBED OPIOIDS FOR PAIN: ? Never take opioids in greater amounts or more often than prescribed. ? Follow up with your primary health care provider. o Work together to create a plan on how to manage your pain. o Talk about ways to help manage your pain that don?t involve prescription opioids. o Talk about any and all concerns and side effects. ? Help prevent misuse and abuse o Never sell or share prescription opioids. o Never use another person?s prescription opioids. ? Store prescription opioids in a secure place and out of reach of others (this may include visitors, children, friends, and family). ? Safely dispose of unused prescription opioids: Find your community drug take-back program or your pharmacy mail-back program, or flush them down the toilet, following guidance from the Food and Drug Administration (www.fda.gov/Drugs/Re sourcesForYou). ? Visit www.cdc.gov/drugoverd ose to learn about the risks of opioids abuse and overdose. ? If you believe you may be struggling with addiction, tell your health child care teacher and ask for guidance or call [employer]?S National Helpline at 5-519-940-JXMN. v Source: (more content not included)... [facility] UA With Cult Reflexon 2023 Bacteria LM Ql (Urine sed) TRACE Normal Trace [facility] Comment on above: Performed By: #### 1 [id number] #### [facility] [address] [place] [address] Bilirubin Ql (U) 1+ Abnormal Negative [facility] Comment on above: Performed By: #### 1 [id number] #### [facility] [address] [place] [address] Clarity (U) CLOUDY Abnormal Clear [facility] Comment on above: Performed By: #### 1 [id number] #### [facility] [address] [place] [address] Color (U) YELLOW Normal Yellow [facility] Comment on above: Performed By: #### 1 [id number] #### [facility] [address] [place] [address] Crystals LM Ql (Urine sed) Present Normal [facility] Comment on above: Performed By: #### 1 [id number] #### [facility] [address] [place] [address] Epithelial cells.squamous LM.HPF (Urine sed) [#/Area] 0-2 Normal 0-2 [facility] Comment on above: Performed By: #### 1 [id number] #### [facility] [address] [place] [address] Glucose Test strip (U) [Mass/Vol] 3+ Abnormal Negative [facility] Comment on above: Performed By: #### 1 [id number] #### [facility] [address] [place] [address] Hemoglobin Ql (U) 3+ Abnormal Negative [facility] Comment on above: Performed By: #### 1 [id number] #### [facility] [address] [place] [address] Ketones (U) [Mass/Vol] TRACE Invalid Interpretation Code Negative [facility] Comment on above: Performed By: #### 1 [id number] #### [facility] [address] [place] [address] [place].plasma/[place] .RBC (Bld) [Mass ratio] >75 Abnormal 0-3 [facility] Comment on above: Performed By: #### 1 [id number] #### [facility] [address] [place] [address] Nitrite Ql (U) Negative Normal Negative [facility] Comment on above: Performed By: #### 1 [id number] #### [facility] [address] [place] [address] pH (U) 6.0 [pH] Invalid Interpretation Code 5.0-9.0 [facility] Comment on above: Performed By: #### 1 [id number] #### [facility] [address] [place] [address] Protein (U) [Mass/Vol] TRACE Abnormal Negative [facility] Comment on above: Performed By: #### 1 [id number] #### [facility] [address] [place] [address] Specific gravity (U) [Rel density] >=1.030 Invalid Interpretation Code 1.005-1.030 [facility] Comment on above: Performed By: #### 1 [id number] #### [facility] [address] [place] [address] Type of Urine collection method Clean Catch Normal [facility] Comment on above: Performed By: #### 1 [id number] #### [facility] [address] [place], [place] [id number] Urobilinogen Qn (U) 0.2 {Lidya'U}/dL Normal 0.0-1.0 [facility] Comment on above: Performed By: #### 1 [id number] #### [facility] [address] [place] [address] WBC Auto Ql (U) Negative Normal Negative [facility] Comment on above: Performed By: #### 1 [id number] #### [facility] [address] [place] [address] WBC LM.HPF (Urine sed) [#/Area] 0-5 Normal 0-5 [facility] Comment on above: Performed By: #### 1 [id number] #### [facility] [address] [place] [id number] URINALYSISOrdered By: Maira carmona on 05-28-2023 Bacteria LM Ql (Urine sed) Trace /HPF Normal Trace/HPF [facility] UA Auto SS Bilirubin Ql (U) 1+ *ABN* (05/28/23 1:53 PM) Invalid Interpretation Code Negative [facility] UA Auto SS Clarity (U) Cloudy *ABN* (05/28/23 1:53 PM) Invalid Interpretation Code Clear [facility] UA Auto SS Color (U) Yellow (05/28/23 1:53 PM) Normal Yellow [facility] UA Auto SS Crystals LM Ql (Urine sed) Present (05/28/23 1:53 PM) Normal [facility] UA Auto SS Epithelial cells.squamous LM.HPF (Urine sed) [#/Area] 0-2 /HPF Normal 0-2/HPF [facility] UA Aut o SS Glucose Test strip (U) [Mass/Vol] 3+ *ABN* (05/28/23 1:53 PM) Invalid Interpretation Code Negative [facility] UA Auto SS Hemoglobin Ql (U) 3+ *ABN* (05/28/23 1:53 PM) Invalid Interpretation Code Negative [facility] UA Auto SS Ketones (U) [Mass/Vol] Trace *NA* (05/28/23 1:53 PM) Invalid Interpretation Code Negative [facility] UA Auto SS [place].plasma/[place] .RBC (Bld) [Mass ratio] >75 /HPF Invalid Interpretation Code 0-3/HPF [facility] UA Auto SS Nitrite Ql (U) Negative (05/28/23 1:53 PM) Normal Negative [facility] UA Auto SS pH (U) 6.0 *NA* (05/28/23 1:53 PM) Invalid Interpretation Code 5.0 - 9.0 [facility] UA Auto SS Protein (U) [Mass/Vol] Trace *ABN* (05/28/23 1:53 PM) Invalid Interpretation Code Negative [facility] UA Auto SS Specific gravity (U) [Rel density] >=1.030 *NA* (05/28/23 1:53 PM) Invalid Interpretation Code 1.005 - 1.030 [facility] UA Auto SS UA Spec Desc Clean Catch (05/28/23 1:53 PM) Normal [facility] UA Auto SS Urobilinogen Qn (U) 0.8867050 {Lidya'U}/dL Normal 0.0 - 1.0 EU/dL [facility] UA Auto SS WBC Auto Ql (U) Negative (05/28/23 1:53 PM) Normal Negative [facility] UA Auto SS WBC LM.HPF (Urine sed) [#/Area] 0-5 /HPF Normal 0-5/HPF [facility] UA Auto SS CMPon 05-11-2023 Albumin [Mass/Vol] 4.3 g/dL Normal 3.3-5.0 [facility] Comment on above: Performed By: #### 2 [id number], [id number], [id number] ####[facility] [address] [place] [address] Albumin/Globulin [Mass ratio] 1.7 {ratio} Normal 1.1-2.2 [facility] Comment on above: Performed By: #### 2 971631, [id number], [id number] ####[facility] [address] [facility] [place] [facility] [place] [address] Alk Phos 106 Int._Unit/L High 21-98 [facility] Comment on above: Performed By: #### 2 740891, [id number], [id number] ####[facility] [address] [facility] [place] [address] ALT 7 Int._Unit/L Normal 6-46 [facility] Comment on above: Performed By: #### 2 628138, [id number], [id number] ####[facility] [address] [place] [address] Anion gap [Moles/Vol] 12 mmol/L Normal 6-16 [facility] Comment on above: Performed By: #### 2 433797, [id number], [id number] ####[facility] [address] [facility] [place] [address] AST 13 Int._Unit/L Normal 5-43 [facility] Comment on above: Performed By: #### 2 960192, [id number], [id number] ####[facility] [address] [place] [address] Bili Total 0.4 mg/dL Normal 0.0-1.1 [facility] Comment on above: Performed By: #### 2 033215, [id number], [id number] ####[facility] [address] [place] [address] BUN/Creat Ratio 29 No Units High 10-20 [facility] Comment on above: Performed By: #### 2 639065, [id number], [id number] ####[facility] [address] [place] [address] Calcium [Mass/Vol] 9.6 mg/dL Normal 8.9-11.1 [facility] Comment on above: Performed By: #### 2 717014, [id number], [id number] ####[facility] [address] [place] [address] Chloride [Moles/Vol] 106 mmol/L Normal 101-111 [facility] Comment on above: Performed By: #### 2 225587, [id number], [id number] ####[facility] [address] [place] [address] CO2 [Moles/Vol] 27 mmol/L Normal 21-31 [facility] Comment on above: Performed By: #### 2 063652, [id number], [id number] ####[facility] [address] [facility] [place] [address] Creatinine [Mass/Vol] 0.7 mg/dL Normal 0.5-1.3 [facility] Comment on above: Performed By: #### 2 353079, 53643336, [id number] ####[facility] [address] [place] [address] Globulin (S) [Mass/Vol] 2.6 g/dL Normal 1.4-4.0 [facility] Comment on above: Performed By: #### 2 392318, [id number], [id number] ####[facility] [address] [place] [address] Glucose [Mass/Vol] 96 mg/dL Normal 55-199 [facility] Comment on above: Performed By: #### 2 773843, 85421209, [id number] ####[facility] [address] [place] [address] Potassium [Moles/Vol] 4.2 mmol/L Normal 3.5-5.3 [facility] Comment on above: Performed By: #### 2 717355, 09075353, [id number] ####[facility] [address] [place] [address] Protein [Mass/Vol] 6.9 g/dL Normal 6.0-7.8 [facility] Comment on above: Performed By: #### 2 315133, 80399112, [id number] ####[facility] [address] [place] [address] Sodium [Moles/Vol] 141 mmol/L Normal 135-145 [facility] Comment on above: Performed By: #### 2 743730, 14483552, 085785582 ####[facility] [address] [place] [address] Urea nitrogen [Mass/Vol] 20 mg/dL Normal 5-21 [facility] Comment on above: Performed By: #### 2 738940, 29853026, [id number] ####[facility] [address] [place] [address] Consent for Treatmenton 04-17 Consent for Treatment [id number] .00TIFF Normal [facility] EwzV1vub 05-11-2023 HbA1c (Bld) [Mass fraction] 5.8 % Normal <=5.9 [facility] Comment on above: Performed By: #### 2 938018, 18535159, [id number] ####[facility] [address] [place] [address] MA/Cr Ratioon 05-11-2023 Microalb/Cr Ratio .8 mg/gm Cr Normal .0-30.0 [facility] Comment on above: Result Comment: 30-3 00 mg/g Cr indicates an increased risk for diabetic nephropathy. >300 mg/g Cr is consistent with clinical nephropathy. Performed By: #### 1 [id number] #### [facility] [address] [place] [address] U Creatinine 96.3 mg/dL Invalid Interpretation Code [facility] Comment on above: Performed By: #### 1 [id number] #### [facility] [address] [place] [address] U Microalb <2.0 Normal 0.0-19.0 [facility] Comment on above: Performed By: #### 1 [id number] #### [facility] [address] [place] [address] Physician Orderon 05-11-2023 Physician Order [id number]# 1.00TIFF Normal [facility] UA With Cult Reflexon 2023 Bacteria LM Ql (Urine sed) TRACE Normal Trace [facility] Comment on above: Performed By: #### 1 [id number] #### [facility] [address] [place] [address] Bilirubin Ql (U) Negative Normal Negative [facility] Comment on above: Performed By: #### 1 [id number] #### [facility] [address] [place] [address] Clarity (U) CLEAR Normal Clear [facility] Comment on above: Performed By: #### 1 [id number] #### [facility] [address] [place] [address] Color (U) YELLOW Normal Yellow [facility] Comment on above: Performed By: #### 1 3664145 #### [facility] [address] [place] [address] Epithelial cells.squamous LM.HPF (Urine sed) [#/Area] 0-2 Normal 0-2 [facility] Comment on above: Performed By: #### 1 6081552 #### [facility] [address] [place] [address] Glucose Test strip (U) [Mass/Vol] 3+ Abnormal Negative [facility] Comment on above: Performed By: #### 1 [id number] #### [facility] [address] [place] [address] Hemoglobin Ql (U) Negative Normal Negative [facility] Comment on above: Performed By: #### 1 8653794 #### [facility] [address] [place] [address] Ketones (U) [Mass/Vol] Negative Normal Negative [facility] Comment on above: Performed By: #### 1 5544069 #### [facility] [address] [place] [address] [place].plasma/[place] .RBC (Bld) [Mass ratio] 0-3 Normal 0-3 [facility] Comment on above: Performed By: #### 1 5781563 #### [facility] [address] [place] [address] Nitrite Ql (U) Negative Normal Negative [facility] Comment on above: Performed By: #### 1 [id number] #### [facility] [address] [place] [address] pH (U) 5.5 [pH] Invalid Interpretation Code 5.0-9.0 [facility] Comment on above: Performed By: #### 1 [id number] #### [facility] [address] [place] [address] Protein (U) [Mass/Vol] Negative Normal Negative [facility] Comment on above: Performed By: #### 1 7487021 #### [facility] [address] [place] [address] Specific gravity (U) [Rel density] 1.020 Invalid Interpretation Code 1.005-1.030 [facility] Comment on above: Performed By: #### 1 [id number] #### [facility] [address] [place] [address] Type of Urine collection method Clean Catch Normal [facility] Comment on above: Performed By: #### 1 [id number] #### [facility] [address] [place] [address] Urobilinogen Qn (U) 0.2 {Lidya'U}/dL Normal 0.0-1.0 [facility] Comment on above: Performed By: #### 1 7836089 #### [facility] [address] [place] [address] WBC Auto Ql (U) Negative Normal Negative [facility] Comment on above: Performed By: #### 1 [id number] #### [facility] [address] [place] [address] WBC LM.HPF (Urine sed) [#/Area] 0-5 Normal 0-5 [facility] Comment on above: Performed By: #### 1 1754215 #### [facility] [address] [place] [address] eGFRon 05-11-2023 eGFR 111 mL/min/1.73 m2 Normal >=59 [facility] Comment on above: Order Comment: Order added by Discern Expert. Performed By: #### 2 830858, [id number], [id number] ####[facility] [address] [place] [address] ED Note-Physicianon 11-01-19 ED Note-Physician Basic Information Time Seen: Beronica GUZMAN, Promise Sheppard. 10/28/2022 16:40 Chief Complaint Patient presents from doctors officer with flank pain and at the [facility] BP was in the 80's. Patient vebralized 5 days of left sided flank pain and fatige and bloor in urine. Patient has known kidney stone from ER visit on 10/25 History of Present Illness Patient presents emergency department with chief complaint of left flank pain. She also thinks her blood pressure may have been running low. She has also been very fatigued. She states she was seen here approximately 3 days ago and was diagnosed with a lot of stones in the left kidney. She thinks 1 may be trying to pass. She thinks her urine has had blood in it. She denies any fevers chills or sweats. She denies any difficulty urinating. She denies any pain with urination. She denies any nausea or vomiting. She denies any difficulty breathing. She denies any chest pain. Review of Systems Constitutional: + malaise Eyes: Denies visual changes, eye pain, double vision, scotomas, floaters ENT: Denies runny nose, epistaxis, sinus pain, ear pain, ringing in ears, tooth ache, sore throat, pain with swallowing Cardiovascular: Denies chest pain, shortness of breath, orthopnea, edema, palpitations, loss of consciousness, claudication Respiratory: Denies cough, sputum production, wheezing, hemoptysis, shortness of breath, dyspnea on exertion Gastrointestinal: Denies abdominal pain, unintentional weight loss, difficulty swallowing, indigestion, bloating, cramping, loss of appetite, nausea, vomiting, diarrhea, constipation, hematochezia, melena. + Left flank pain Genitourinary: Denies any incontinence of urine, dysuria, hematuria, nocturia, polyuria, hesitancy, frequency, urgency, burning Musculoskeletal: Denies joint pain, morning stiffness, joint swelling, decreased range of motion, crepitus Integumentary: Denies any pruritus, rashes, lesions, wounds, petechiae Neurologic: Denies any changes in sight, smell, hearing, taste, seizures, headache, paresthesia, numbness, weakness, balance disturbance Psychiatric denies any depression, change in sleep patterns, anxiety, difficulty concentrating, paranoia, anhedonia, lack of energy, merrick Hematologic/lymphatic : Denies any purpura, petechiae, excessive bleeding, bruising Physical Exam Vitals & Measurements T: 36.7 ?C(Oral) HR: 78(Monitored) RR: 18 BP: 112/69 SpO2: 98% HT: 160.02 cm WT: 115 kg BMI: 44.91 Vital signs and nursing notes reviewed. General: Awake, alert, NAD. HEENT: Head is normocephalic, atraumatic. PERRL. EOMI. Sclerae are anicteric. External ears are normal. TMs are intact bilaterally. Canals are clear bilaterally. Nares are patent bilaterally. Oral mucosa is pink and moist. No lesions noted. Tongue protrudes in midline. Uvula rises with phonation. Neck is supple, no no palpable adenopathy. No JVD. Trachea is midline. Thorax: Symmetrical rise and fall Lungs: Clear to auscultation throughout all jay, no wheezes, no crackles Heart: Regular rate and rhythm. No murmur, gallop, or rub Abdomen: No tenderness on palpation. Bowel sounds are present active and normal. No organomegaly. No palpable masses. No CVA tenderness. Extremities: Motor sensory pulses intact x4 extremities. No lower extremity edema. Skin: No lesions, rashes, ulcerations. No bruising or petechiae. Color appropriate, warm and dry Neuro: No oriented x3, no focal neuro deficits Psych: Mood and affect are normal Medical Decision Making MEDICAL DECISION MAKING Number and Complexity of Problems Differential Diagnosis: Ureterolithiasis, nephrolithiasis, hydronephrosis, electrolyte imbalance, dehydration, acute lower urinary tract infection MDM Data External documents reviewed: OARRS My EKG interpretation: Noted in chart if applicable My CT interpretation: Noted in chart if applicable My X-ray interpretation: Noted in chart if applicable My Ultrasound interpretation: Not applicable Decision rules/scores evaluated: Noted in chart if applicable Discussed with: Not applicable Treatment and Disposition ED Course: Patient was interviewed and examined. Appropriate ER work-up was initiated. Patient was given ondansetron ODT and Percocet 1 tablet. Laboratory data was unremarkable including CBC, CMP. UA had 3+ glucose, 3+ blood, 21-30 RBCs, trace ketone, negative nitrite. CT scan of the abdomen pelvis was no evidence with ureteral lithiasis. There are very small stone still within the left kidney. I discussed the results of the work-up with the patient. I discussed the discharge diagnosis, plan of care, need for close follow-up with urology. The patient states she has an upcoming visit with Dr. Miranda. Patient will be discharged home in stable condition. She is to return to the emergency department for any further problems or concerns. Shared decision making: I discussed discharge diagnosis and plan of care with the patient she is in agreement with plan of care. Code status: (more content not included)... Normal [facility] Comment on above: Result Comment: Elec tronically Signed By: Promise Loco PA-C\.br\Date and Time Signed: 10/29/22 01:47 EDT\.br\Electronically Co-Signed By: Gunnar Rangel DO\.graham\Date and Time Co-Signed: 10/31/22 07:21 EDT Auto Diffon 10-28-2022 Basophils/100 WBC (Bld) 0.5 % Normal 0.0-2.0 [facility] Comment on above: Order Comment: Order Added by Discern Expert. Performed By: #### 1 [id number] #### [facility] [address] [place] [address] Basophils/Leukocytes Auto (Bld) [Pure # fraction] 0.1 E9/L Normal 0.0-0.2 [facility] Comment on above: Order Comment: Order Added by Discern Expert. Performed By: #### 1 [id number] #### [facility] [address] [place] [address] Eosinophils/100 WBC (Bld) 0.9 % Normal 0.0-8.0 [facility] Comment on above: Order Comment: Order Added by Discern Expert. Performed By: #### 1 [id number] #### [facility] [address] [place] [address] Eosinophils/Leukocytes Auto (Bld) [Pure # fraction] 0.1 E9/L Normal 0.0-0.5 [facility] Comment on above: Order Comment: Order Added by Discern Expert. Performed By: #### 1 [id number] #### [facility] [address] [place] [address] Lymphocytes/100 WBC (Bld) 25.9 % Normal 14.0-50.0 [facility] Comment on above: Order Comment: Order Added by Discern Expert. Performed By: #### 1 [id number] #### [facility] [address] [place] [address] Lymphocytes/Leukocytes Auto (Bld) [Pure # fraction] 2.7 E9/L Normal 1.0-4.0 [facility] Comment on above: Order Comment: Order Added by Discern Expert. Performed By: #### 1 [id number] #### [facility] [address] [place] [address] Monocytes/100 WBC (Bld) 5.3 % Normal 4.0-14.0 [facility] Comment on above: Order Comment: Order Added by Discern Expert. Performed By: #### 1 [id number] #### [facility] [address] [place] [address] Monocytes/Leukocytes Auto (Bld) [Pure # fraction] 0.6 E9/L Normal 0.2-1.0 [facility] Comment on above: Order Comment: Order Added by Discern Expert. Performed By: #### 1 [id number] #### [facility] [address] [place] [address] Neutrophils/100 WBC (Bld) 67.4 % Normal 36.0-75.0 [facility] Comment on above: Order Comment: Order Added by Discern Expert. Performed By: #### 1 [id number] #### [facility] [address] [place] [address] Neutrophils/Leukocytes Auto (Bld) [Pure # fraction] 7.0 E9/L Normal 2.0-7.5 [facility] Comment on above: Order Comment: Order Added by Discern Expert. Performed By: #### 1 [id number] #### [facility] [address] [place] [address] CBC w/ Auto Diffon 3 Erythrocyte distribution width (RBC) [Ratio] 14.6 % High 10.9-14.2 [facility] Comment on above: Performed By: #### 1 [id number] #### [facility] [address] [place] [address] Hematocrit (Bld) [Volume fraction] 48.3 % High 34.0-46.0 [facility] Comment on above: Performed By: #### 1 [id number] #### [facility] [address] [place] [address] Hemoglobin (Bld) [Mass/Vol] 16.0 g/dL Normal 12.0-16.0 [facility] Comment on above: Performed By: #### 1 [id number] #### [facility] [address] [place] [address] MCH (RBC) [Entitic mass] 29.4 pg Normal 27.0-34.0 [facility] Comment on above: Performed By: #### 1 [id number] #### [facility] [address] [place] [address] MCHC (RBC) [Mass/Vol] 33.1 g/dL Normal 31.4-36.0 [facility] Comment on above: Performed By: #### 1 [id number] #### [facility] [address] [place] [address] MCV (RBC) [Entitic vol] 88.9 fL Normal 80.0-100.0 [facility] Comment on above: Performed By: #### 1 [id number] #### [facility] [address] [place] [address] Platelet mean volume (Bld) [Entitic vol] 8.6 fL Normal 6.4-10.8 [facility] Comment on above: Performed By: #### 1 [id number] #### [facility] [address] [place] [address] Platelets (Bld) [#/Vol] 237.0 E9/L Normal 150.0-500.0 [facility] Comment on above: Performed By: #### 1 [id number] #### [facility] [address] [place] [address] RBC (Bld) [#/Vol] 5.4 E12/L Normal 4.3-5.9 [facility] Comment on above: Performed By: #### 1 [id number] #### [facility] [address] [place] [address] WBC corrected for nucl RBC Auto (Bld) [#/Vol] 10.4 E9/L Normal 4.0-11.0 [facility] Comment on above: Performed By: #### 1 [id number] #### [facility] [address] [place] [address] CHEMISTRYOrdered By: SYSTEM SYSTEM on 10-28-2022 Albumin [Mass/Vol] 4.6 g/dL Normal 3.3 - 5.0 gm/dL [facility] Remisol Albumin/Globulin [Mass ratio] 1.4 {ratio} Normal 1.1 - 2.2 [facility] Remisol ALP [Catalytic activity/Vol] 110 [iU]/d High 21 - 98 Int._Unit/L [facility] Remisol ALT No additional P-5'-P [Catalytic activity/Vol] 16 [iU]/d Normal 6 - 46 Int._Unit/L [facility] Remisol Anion gap [Moles/Vol] 13 mmol/L Normal 6 - 16 mEq/L [facility] Remisol AST [Catalytic activity/Vol] 24 [iU]/d Normal 5 - 43 Int._Unit/L [facility] Remisol Bilirubin [Mass/Vol] 0.7 mg/dL Normal 0.0 - 1 .1 mg/dL [facility] Remisol Calcium [Mass/Vol] 10.2 mg/dL Normal 8.9 - 11. 1 mg/dL [facility] Remisol Chloride [Moles/Vol] 106 mmol/L Normal 101 - 1 11 mmol/L [facility] CO2 [Moles/Vol] 25 mmol/L Normal 21 - 31 mmol/L [facility] Remisol Creatinine [Mass/Vol] 1.0 mg/dL Normal 0.5 - 1.3 mg/dL FT Remisol GFR/1.73 sq M.predicted among non-blacks MDRD (S/P/Bld) [Vol rate/Area] 73 mL/min/1.73 m2 Normal >=59mL/min/1 .73 m2 [facility] Chem S Globulin (S) [Mass/Vol] 3.4 g/dL Normal 1.4 - 4.0 gm/dL [facility] Remisol Glucose [Mass/Vol] 98 mg/dL Normal 55 - 199 mg/dL [facility] Remisol Potassium [Moles/Vol] 5.0 mmol/L Normal 3.5 - 5.3 mmol/L [facility] Remisol Protein [Mass/Vol] 8.0 g/dL High 6.0 - 7.8 gm/dL [facility] Remisol Sodium [Moles/Vol] 139 mmol/L Normal 135 - 145 mmol/L [facility] Remisol Urea nitrogen [Mass/Vol] 22 mg/dL High 5 - 21 mg/dL [facility] Remisol Urea nitrogen/Creatinine [Mass ratio] 22 mg/mg High 10 - 20 [facility] Remisol CMPon 10-28-2022 Albumin [Mass/Vol] 4.6 g/dL Normal 3.3-5.0 [facility] Comment on above: Performed By: #### 1 [id number] #### [facility] [address] [place] [address] Albumin/Globulin (S) [Mass conc ratio] 1.4 Normal 1.1-2.2 [facility] Comment on above: Performed By: #### 1 [id number] #### [facility] [address] [place] [address] ALP [Catalytic activity/Vol] 110 Int._Unit/L High 21-98 [facility] Comment on above: Performed By: #### 1 [id number] #### [facility] [address] [place] [address] ALT No additional P-5'-P [Catalytic activity/Vol] 16 Int._Unit/L Normal 6-46 [facility] Comment on above: Performed By: #### 1 [id number] #### [facility] [address] [place] [address] AST [Catalytic activity/Vol] 24 Int._Unit/L Normal 5-43 [facility] Comment on above: Performed By: #### 1 [id number] #### [facility] [address] [place] [address] Bilirubin [Mass/Vol] 0.7 mg/dL Normal 0.0-1.1 [facility] Comment on above: Performed By: #### 1 [id number] #### [facility] [address] [place] [address] Creatinine [Mass/Vol] 1.0 mg/dL Normal 0.5-1.3 [facility] Comment on above: Performed By: #### 1 [id number] #### [facility] [address] [place] [address] Globulin (S) [Mass/Vol] 3.4 g/dL Normal 1.4-4.0 [facility] Comment on above: Performed By: #### 1 [id number] #### [facility] [address] [place] [address] Protein [Mass/Vol] 8.0 g/dL High 6.0-7.8 [facility] Comment on above: Performed By: #### 1 [id number] #### [facility] [address] [place] [address] Urea nitrogen [Mass/Vol] 22 mg/dL High 5-21 [facility] Comment on above: Performed By: #### 1 [id number] #### [facility] [address] [place] [address] Urea nitrogen/Creatinine [Mass ratio] 22 No Units High 10-20 [facility] Comment on above: Performed By: #### 1 [id number] #### [facility] [address] [place] [address] Anion gap [Moles/Vol] 13 mmol/L Normal 6-16 [facility] Comment on above: Performed By: #### 1 [id number] #### [facility] [address] [place] [address] Calcium [Mass/Vol] 10.2 mg/dL Normal 8.9-11.1 [facility] Comment on above: Performed By: #### 1 [id number] #### [facility] [address] [place] [address] Chloride [Moles/Vol] 106 mmol/L Normal 101-111 [facility] Comment on above: Performed By: #### 1 [id number] #### [facility] [address] [place] [address] CO2 [Moles/Vol] 25 mmol/L Normal 21-31 [facility] Comment on above: Performed By: #### 1 [id number] #### [facility] [address] [facility] [place] [address] Glucose [Mass/Vol] 98 mg/dL Normal 55-199 [facility] Comment on above: Result Comment: If t his glucose result represents a fasting glucose, interpretation should refer to the following reference range: 55-99 mg/dL Performed By: #### 1 [id number] #### [facility] [address] [place] [address] Potassium [Moles/Vol] 5.0 mmol/L Normal 3.5-5.3 [facility] Comment on above: Performed By: #### 1 [id number] #### [facility] [address] [place] [address] Sodium [Moles/Vol] 139 mmol/L Normal 135-145 [facility] Comment on above: Performed By: #### 1 [id number] #### [facility] [address] [place] [address] CT Abdomen/Pelvis w/o Contra ston 10-28-2022 CT Abdomen/Pelvis w/o Contrast Exam Date/Time: 10/28/2022 17:56 EDT Reason for Exam: flank pain;Other (please specify) Report IMPRESSION: NO ACUTE ABDOMINOPELVIC PROCESS OR SIGNIFICANT INTERVAL CHANGE. EXAM: CT Abdomen/Pelvis w/o Contrast History: Flank pain Technique: Multiple contiguous axial images were obtained of the abdomen and pelvis from the level of the lung bases through the ischial tuberosities without contrast. Multiplanar reformats were obtained. Comparison: CT abdomen pelvis 10/25/2022 Findings: Lung bases are clear. Lack of intravenous contrast precludes optimal evaluation of the abdominal and pelvic viscera. The liver is enlarged at approximately 21 cm in craniocaudal length. Hypoattenuation of the liver. The gallbladder, stomach, pancreas, spleen, and adrenal glands are within normal limits Tiny nonobstructing left renal calculi again identified. No left-sided hydronephrosis. No right-sided urinary tract calculi or hydronephrosis. Urinary bladder is poorly distended but otherwise unremarkable. The uterus is absent. Abdominal aorta is nonaneurysmal. No retroperitoneal or abdominal/pelvic lymphadenopathy. No small bowel obstruction. A few colonic diverticuli are identified. No overt colonic mass or pericolonic inflammation. Appendix is within normal limits. No free fluid or free air. No acute osseous abnormality. All CT scans at this facility use dose modulation, iterative reconstruction, and/or weight based dosing when appropriate to reduce radiation dose to as low as reasonably achievable. Report Ordering Provider: Promise Loco FINAL REPORT Dictated: 10/28/2022 6:26 pm Ranjan Baptiste DO Signed (Electronic Signature): 10/28/2022 6:26 pm Signed by: Ranjan Baptiste DO Transcribed by: FLORENTINO Technologist: MARYAN Technical Comments Rectal Contrast Given? No Oral contrast amount in ml's: 0 [facility] Consent for Treatmenton 10-14 Consent for Treatment [id number] .[id number]:127 [facility] Discharge Instructionson Discharge Instructions [id number] .[id number]:127 [facility] ED Clinical Summaryon 2022 ED Clinical Summary [address] [address] ED Clinical Summary Person Information Name: TISH VARGAS [facility] Age: 42 Years : 1980 Sex: Female Language: Martiniquais PCP: YANET CHAIREZ CNP Marital Status: Visit Id: Visit Reason: Hematuria; Weakness or fatigue; Medical screening exam; HYPOTENSION Speciality: Acuity: 3 Enc Type: Emergency Med Service: Emergency Arrival: 10/28/2022 15:04:47 Discharge: 10/28/2022 18:55:08 LOS: 000 03:51 Checkin: 10/28/2022 15:04:47 Checkout: 10/28/2022 18:55:08 Dispo Type: Home (Routine DC) EVENTS: Event Name Event Status Request Date/Time Start Date/Time Complete Date/Time Arrive Complete 10/28/2022 15:04:47 10/28/2022 15:04:47 10/28/2022 15:04:47 Document Home Meds Request 10/28/2022 15:04:47 Triage Complete 10/28/2022 15:04:47 10/28/2022 15:18:45 10/28/2022 15:18:45 Registration Complete 10/28/2022 15:06:36 10/28/2022 15:06:36 10/28/2022 15:06:36 Reg Complete Request 10/28/2022 15:06:36 Reg Bed Request Complete 10/28/2022 15:06:36 10/28/2022 15:06:36 10/28/2022 15:06:36 EKG Complete 10/28/2022 15:17:43 10/28/2022 15:23:12 Isolation Screening Request 10/28/2022 15:18:46 Pending Labs Complete 10/28/2022 15:36:07 10/28/2022 17:11:11 Lab Complete 10/28/2022 15:36:07 10/28/2022 17:11:11 Urine Collect Complete 10/28/2022 15:36:07 10/28/2022 17:11:11 Pending Labs Complete 10/28/2022 15:46:40 10/28/2022 15:46:40 10/28/2022 16:04:39 Lab Complete 10/28/2022 15:46:40 10/28/2022 15:46:40 10/28/2022 16:04:39 Pending Labs Complete 10/28/2022 16:07:06 10/28/2022 16:07:06 10/28/2022 16:07:14 Lab Complete 10/28/2022 16:07:06 10/28/2022 16:07:06 10/28/2022 16:07:14 Bed Assign Complete 10/28/2022 16:37:02 10/28/2022 16:37:02 10/28/2022 16:37:02 Dr Exam Complete 10/28/2022 16:37:02 10/28/2022 16:40:38 10/28/2022 16:40:38 RN Exam Complete 10/28/2022 16:37:02 10/28/2022 17:55:03 10/28/2022 17:55:03 Registration Request 10/28/2022 16:40:38 Dr Exam Complete 10/28/2022 16:42:44 10/28/2022 16:42:44 10/28/2022 16:42:44 CT Complete 10/28/2022 17:45:10 10/28/2022 17:47:12 10/28/2022 17:56:46 Meds Admin Complete 10/28/2022 17:46:11 10/28/2022 17:55:44 Discharge Complete 10/28/2022 18:38:06 10/28/2022 18:55:13 10/28/2022 18:55:13 Pending Labs Complete 10/28/2022 18:49:06 10/28/2022 18:49:06 10/28/2022 18:49:07 Transfer Complete 10/28/2022 18:55:13 10/28/2022 18:55:13 10/28/2022 18:55:13 ADDRESS: [address] [place] [id number] PHYS DOC NOTES: MEDICAL INFORMATION: Prescriptions Given: Medications to Continue with No Changes Other Medications acetaminophen-oxycodo ne (Percocet 325 mg-5 mg Tab) 1 Tablets By Mouth every 6 hours as needed as needed for pain. Refills: 0. albuterol (albuterol HFA 90 mcg/inh MDI) 2 Puffs Inhalation 4 times a day as needed for wheezing. Refills: 0. alprazolam (Xanax 1 mg Tab) 1 Tablets By Mouth 2 times a day as needed for anxiety. aspirin (aspirin 81 mg Chew Tab) 1 Tablets Chewed every day. atorvastatin (atorvastatin 80 mg Tab) 1 Tablets By Mouth every day. Refills: 0. clopidogrel (Plavix 75 mg Tab) 1 Tablets By Mouth every day. empagliflozin (Jardiance 25 mg oral tablet) 1 Tablets By Mouth once a day (in the morning). gabapentin (gabapentin 300 mg Cap) 1 Capsules By Mouth 3 times a day. insulin glargine (Lantus Solostar Pen 100 units/mL subcutaneous solution) isosorbide mononitrate (isosorbide mononitrate 30 mg ER Tab) 1 Tablets By Mouth once a day (in the morning). Refills: 0. losartan (losartan 25 mg Tab) 1 Tablets By Mouth at bedtime. metformin (MetFORMIN (Eqv-Glucophage XR) 500 mg oral tablet, extended release) 2 Tablets By Mouth 2 times a day. metoprolol (Metoprolol tartrate 25 mg Tab) 1 Tablets By Mouth 2 times a day. naproxen (Naprosyn 500 mg Tab) 1 Tablets By Mouth 2 times a day as needed for pain. Refills: 0. nitroglycerin (nitroglycerin 0.4% rectal ointment) Rectal q12hr. Refills: 0. ondansetron (Zofran 4 mg Tab) 1 Tablets By Mouth every 8 hours as needed Nausea/Vomiting. Refills: 0. ondansetron (Zofran 4 mg Tab) 1 Tablets By Mouth every 8 hours as needed Nausea/Vomiting. Refills: 0. ondansetron (Zofran ODT 4 mg Tab-Dis) 1 Tablets By Mouth every 8 hours as needed Nausea/Vomiting. Refills: 0. ranolazine (Ranexa 500 mg Tab-ER) 1 Tablets By Mouth 2 times a day. Refills: 1. semaglutide (Ozempic) tamsulosin (Flomax 0.4 mg Cap) 1 Capsules By Mouth every day. Refills: 0. venlafaxine (Effexor XR 150 mg Cap-ER) 1 Capsules By Mouth every day. along with 75 mg cap. venlafaxine (Effexor XR 75 mg Cap-ER) 1 Capsules By Mouth every day. PATIENT EDUCATION INFORMATION: Instructions: Lithotripsy; Laser Therapy for Kidney Stones, Care After; Kidney Stones, Myjx-hv-Oqzx; Flank Pain, Adult, Dkpl-sk-Fhkh Follow up: With: Address: When: [place] [facility], [address] [place] [address] Business (1) In 3 d (more content not included)... [facility] ED Patient Education Noteon 10-28-2022 ED Patient Education Note Nephrology Lithotripsy Lithotripsy is a treatment that can help break up kidney stones that are too large to pass on their own. This is a nonsurgical procedure that crushes a kidney stone with shock waves. These shock waves pass through your body and focus on the kidney stone. They cause the kidney stone to break up into smaller pieces while it is still in the urinary tract. The smaller pieces of stone can pass more easily out of your body in the urine. Tell a health care provider about: ? Any allergies you have. ? All medicines you are taking, including vitamins, herbs, eye drops, creams, and ohye-efq-xhzfndu medicines. ? Any problems you or family members have had with anesthetic medicines. ? Any blood disorders you have. ? Any surgeries you have had. ? Any medical conditions you have. ? Whether you are or may be . What are the risks? Generally, this is a safe procedure. However, problems may occur, including: ? Infection. ? Bleeding from the kidney. ? Bruising of the kidney or skin. ? Scarring of the kidney, which can lead to: ? Increased blood pressure. ? Poor kidney function. ? Return (recurrence) of kidney stones. ? Damage to other structures or organs, such as the liver, colon, spleen, or pancreas. ? Blockage (obstruction) of the tube that carries urine from the kidney to the bladder (ureter). ? Failure of the kidney stone to break into pieces (fragments). What happens before the procedure? Staying hydrated Follow instructions from your health care provider about hydration, which may include: ? Up to 2 hours before the procedure ? you may continue to drink clear liquids, such as water, clear fruit juice, black coffee, and plain tea. Eating and drinking restrictions Follow instructions from your health care provider about eating and drinking, which may include: ? 8 hours before the procedure ? stop eating heavy meals or foods, such as meat, fried foods, or fatty foods. ? 6 hours before the procedure ? stop eating light meals or foods, such as toast or cereal. ? 6 hours before the procedure ? stop drinking milk or drinks that contain milk. ? 2 hours before the procedure ? stop drinking clear liquids. Medicines Ask your health care provider about: ? Changing or stopping your regular medicines. This is especially important if you are taking diabetes medicines or blood thinners. ? Taking medicines such as aspirin and ibuprofen. These medicines can thin your blood. Do not take these medicines unless your health care provider tells you to take them. ? Taking vifl-ohb-ofjclou medicines, vitamins, herbs, and supplements. Tests You may have tests, such as: ? Blood tests. ? Urine tests. ? Imaging tests, such as a CT scan. General instructions ? Plan to have someone take you home from the hospital or clinic. ? If you will be going home right after the procedure, plan to have someone with you for 24 hours. ? Ask your health care provider what steps will be taken to help prevent infection. These may include washing skin with a germ-killing soap. What happens during the procedure? ? An IV will be inserted into one of your veins. ? You will be given one or more of the following: ? A medicine to help you relax (sedative). ? A medicine to make you fall asleep (general anesthetic). ? A water-filled cushion may be placed behind your kidney or on your abdomen. In some cases, you may be placed in a tub of lukewarm water. ? Your body will be positioned in a way that makes it easy to target the kidney stone. ? An X-ray or ultrasound exam will be done to locate your stone. ? Shock waves will be aimed at the stone. If you are awake, you may feel a tapping sensation as the shock waves pass through your body. ? A flexible tube with holes in it (stent) may be placed in the ureter. This will help keep urine flowing from the kidney if the fragments of the stone have been blocking the ureter. The procedure may vary among health care providers and hospitals. What happens after the procedure? ? You may have an X-ray to see whether the procedure was able to break up the kidney stone and how much of the stone has passed. If large stone fragments remain after treatment, you may need to have a second procedure at a later time. ? Your blood pressure, heart rate, breathing rate, and blood oxygen level will be monitored until you leave the hospital or clinic. ? You may be given antibiotics or pain medicine as needed. ? If a stent was placed in your ureter during surgery, it may stay in place for a few weeks. ? You may need to strain your urine to collect pieces of the kidney stone for testing. ? You will need to drink plenty of water. ? If you were given a sedative during the procedure, it can affect you for several hours. Do not drive or operate machinery until your health care provider says that it is safe. Summary (more content not included)... [facility] ED Patient Summaryon 023 ED Patient Summary [address] [address] Patient Discharge Instructions Person Information Name: TISH VARGAS Age: 42 Years Arrival Date: 10/28/2022 15:04:47 Discharge Diagnosis: 1:Lt flank pain Primary Care Physician: YANET CHAIREZ CNP Provider Information Primary Provider: Gunnar Rangel DO Advanced Material Analyst:None The exam and treatment you received in the Emergency Department were for an urgent problem and are not intended as complete care. It is important that you follow up with a doctor, nurse practitioner, or physician?s credentialing assistant for ongoing care. If your symptoms become worse or you do not improve as expected and you are unable to reach your usual health care provider, you should return to the Emergency Department. We are available 24 hours a day. TISH VARGAS has been given the following list of patient education materials, prescriptions and follow-up instructions: Follow-up Instructions: With: Address: When: [place] [facility], [address] [place] [address] Business (1) In 3 days 10/31/2022 With: Address: When: YANET CHAIREZ [address] [place], [place] [phone] Business (1) In 3 days In the event that this physician does not participate in your insurance network, please consult with your insurance company to find a nearby participating provider. Patient Education Materials: Lithotripsy; Laser Therapy for Kidney Stones, Care After; Kidney Stones, Qebq-pk-Rfsm; Flank Pain, Adult, Gdwe-lf-Raxh A MESSAGE TO ALL PATIENTS REGARDING OPIOIDS PRESCRIPTION OPIOIDS: WHAT YOU NEED TO KNOW Prescription opioids can be used to help relieve htugszgn-ij-lmmhnh pain and are often prescribed following a surgery or injury, or for certain health conditions. These medications can be an important part of the treatment but also come with serious risks. It is important to work with your healthcare provider to make sure you are getting the safest, most effective care. WHAT ARE THE RISKS AND SIDE EFFECTS OF OPIOID USE? Prescription opioids carry serious risks of addiction and overdose, especially with prolonged use. An opioid overdose, often marked by slowed breathing, can cause sudden . The use of prescription opioids can have a number of side effects as well, even when taken as directed: ? Tolerance?meaning you might need to take more of the medication for the same pain relief ? Physical dependence?meaning you have symptoms of withdrawal when a medication is stopped ? Increased sensitivity to pain ? Constipation ? Nausea, vomiting, and dry mouth ? Sleepiness and dizziness ? Confusion ? Depression ? Low levels of testosterone that can result in lower sex drive, energy, and strength ? Itching and sweating RISKS ARE GREATER WITH: ? History of drug misuse, substance use disorder, or overdose ? Mental health conditions (such as depression or anxiety) ? Sleep apnea ? Older age (65 years and older) ? Avoid alcohol while taking prescription opioids. Also, unless specifically advised by your health care provider, medications to avoid include: ? Benzodiazepines (such as Xanax or Valium) ? Muscle relaxants (such as Soma or Flexeril) ? Hypnotics (such as Ambien or Lunesta) ? Other prescription opioids KNOW YOUR OPTIONS Talk to your health care provider about ways to manage your pain that don?t involve prescription opioids. Some of these options may actually work better and have fewer risks and side effects. Options may include: ? Pain relievers such as acetaminophen, ibuprofen, and naproxen ? Some medication that are also used for depression or seizures ? Physical therapy and exercise ? Cognitive behavioral therapy, a psychological, goal-directed approach, in which patients learn how to modify physical, behavioral, and emotional triggers of pain and stress. IF YOU ARE PRESCRIBED OPIOIDS FOR PAIN: ? Never take opioids in greater amounts or more often than prescribed. ? Follow up with your primary health care provider. o Work together to create a plan on how to manage your pain. o Talk about ways to help manage your pain that don?t involve prescription opioids. o Talk about any and all concerns and side effects. ? Help prevent misuse and abuse o Never sell or share prescription opioids. o Never use another person?s prescription opioids. ? Store prescription opioids in a secure place and out of reach of others (this may include visitors, children, friends, and family). ? Safely dispose of unused prescription opioids: Find your community drug take-back program or your pharmacy mail-back program, or flush them down the toilet, following guidance from the Food and Drug Administration (www.fda.gov/Drugs/Re sourcesForYou). ? Visit www.cdc.gov/drugoverd ose to learn ab (more content not included)... [facility] HEMATOLOGYOrdered By: SYSTEM SYSTEM on 10-28-2022 Basophils/100 WBC (Bld) 0.5 % Normal 0.0 - 2.0 % [facility] HemeAutoSS Basophils/Leukocytes Auto (Bld) [Pure # fraction] 0.1 E9/L Normal 0.0 - 0.2 E9/L [facility] HemeAutoSS Eosinophils/100 WBC (Bld) 0.9 % Normal 0.0 - 8.0 % [facility] HemeAutoSS Eosinophils/Leukocytes Auto (Bld) [Pure # fraction] 0.1 E9/L Normal 0.0 - 0.5 E9/L [facility] HemeAutoSS Lymphocytes/100 WBC (Bld) 25.9 % Normal 14.0 - 50.0 % [facility] HemeAutoSS Lymphocytes/Leukocytes Auto (Bld) [Pure # fraction] 2.7 E9/L Normal 1.0 - 4.0 E9/L [facility] HemeAutoSS Monocytes/100 WBC (Bld) 5.3 % Normal 4.0 - 14.0 % [facility] HemeAutoSS Monocytes/Leukocytes Auto (Bld) [Pure # fraction] 0.6 E9/L Normal 0.2 - 1.0 E9/L [facility] HemeAutoSS Neutrophils/100 WBC (Bld) 67.4 % Normal 36.0 - 75.0 % [facility] HemeAutoSS Neutrophils/Leukocytes Auto (Bld) [Pure # fraction] 7.0 E9/L Normal 2.0 - 7.5 E9/L [facility] HemeAutoSS HEMATOLOGYOrdered By: Jarod Palumbo on 10-28-2022 Erythrocyte distribution width (RBC) [Ratio] 14.6 % High 10.9 - 14.2 % [facility] HemeAutoSS Hematocrit (Bld) [Volume fraction] 48.3 % High 34.0 - 46.0 % [facility] HemeAutoSS Hemoglobin (Bld) [Mass/Vol] 16.0 g/dL Normal 12.0 - 16.0 gm/dL [facility] HemeAutoSS MCH (RBC) [Entitic mass] 29.4 pg Normal 27.0 - 34.0 pg [facility] HemeAutoSS MCHC (RBC) [Mass/Vol] 33.1 g/dL Normal 31.4 - 36.0 gm/dL [facility] HemeAutoSS MCV (RBC) [Entitic vol] 88.9 fL Normal 80.0 - 100.0 fL [facility] HemeAutoSS Platelet mean volume (Bld) [Entitic vol] 8.6 fL Normal 6.4 - 10.8 fL [facility] HemeAutoSS Platelets (Bld) [#/Vol] 237.0 E9/L Normal 150.0 - 500.0 E9/L [facility] HemeAutoSS RBC (Bld) [#/Vol] 5.4 E12/L Normal 4.3 - 5.9 E12/L [facility] HemeAutoSS WBC corrected for nucl RBC Auto (Bld) [#/Vol] 10.4 E9/L Normal 4.0 - 11.0 E9/L [facility] HemeAutoSS UA With Cult Reflexon 2022 Bacteria LM Ql (Urine sed) 1+ /HPF Abnormal Trace [facility] Comment on above: Performed By: #### 1 [id number] #### [facility] [address] [place] [address] Bilirubin Ql (U) Negative Normal Negative [facility] Comment on above: Performed By: #### 1 [id number] #### [facility] [address] [place] [address] Clarity (U) CLOUDY Abnormal Clear [facility] Comment on above: Performed By: #### 1 [id number] #### [facility] [address] [place] [address] Color (U) YELLOW Normal Yellow [facility] Comment on above: Performed By: #### 1 [id number] #### [facility] [address] [place] [address] Epithelial cells.squamous LM.HPF (Urine sed) [#/Area] /[HPF] Normal 0-2 [facility] Comment on above: Performed By: #### 1 [id number] #### [facility] [address] [place] [address] Glucose Test strip (U) [Mass/Vol] 3+ Abnormal Negative [facility] Comment on above: Performed By: #### 1 [id number] #### [facility] [address] [place] [address] Hemoglobin Ql (U) 3+ Abnormal Negative [facility] Comment on above: Performed By: #### 1 [id number] #### [facility] [address] [place] [address] Ketones (U) [Mass/Vol] TRACE Abnormal Negative [facility] Comment on above: Performed By: #### 1 [id number] #### [facility] [address] [place] [address] [place].plasma/[place] .RBC (Bld) [Mass ratio] 21-30 Abnormal 0-3 [facility] Comment on above: Performed By: #### 1 [id number] #### [facility] [address] [place] [address] Mucus Ql (Urine sed) 1+ Normal Fish [facility] Comment on above: Performed By: #### 1 [id number] #### [facility] [address] [place] [address] Nitrite Ql (U) Negative Normal Negative [facility] Comment on above: Performed By: #### 1 [id number] #### [facility] [address] [place] [address] pH (U) 5.5 [pH] Invalid Interpretation Code 5.0-9.0 [facility] Comment on above: Performed By: #### 1 [id number] #### [facility] [address] [place] [address] Protein (U) [Mass/Vol] Negative Normal Negative Fi [facility] Comment on above: Performed By: #### 1 [id number] #### [facility] [address] [place] [address] Specific gravity (U) [Rel density] >=1.030 Invalid Interpretation Code 1.005-1.030 [facility] Comment on above: Performed By: #### 1 [id number] #### [facility] [address] [place] [address] Type of Urine collection method Clean Catch Normal [facility] Comment on above: Performed By: #### 1 [id number] #### [facility] [address] [place] [address] Urobilinogen Qn (U) 1.0 {Lidya'U}/dL Normal 0.0-1.0 [facility] Comment on above: Performed By: #### 1 [id number] #### [facility] [address] [place] [address] WBC Auto Ql (U) Negative Normal Negative [facility] Comment on above: Performed By: #### 1 [id number] #### [facility] [address] [place] [address] WBC LM.HPF (Urine sed) [#/Area] 0-5 Normal 0-5 [facility] Comment on above: Performed By: #### 1 [id number] #### [facility] [address] [place] [address] URINALYSISOrdered By: Elliott Still on 10-28-2022 Bacteria LM Ql (Urine sed) 1+ /HPF Invalid Interpretation Code Trace/HPF [facility] UA Auto SS Bilirubin Ql (U) Negative (10/28/22 4:54 PM) Normal Negative [facility] UA Auto SS Clarity (U) Cloudy *ABN* (10/28/22 4:54 PM) Invalid Interpretation Code Clear [facility] UA Auto SS Color (U) Yellow (10/28/22 4:54 PM) Normal Yellow [facility] UA Auto SS Epithelial cells.squamous LM.HPF (Urine sed) [#/Area] /[HPF] Normal 0-2/HPF [facility] UA Aut o SS Glucose Test strip (U) [Mass/Vol] 3+ *ABN* (10/28/22 4:54 PM) Invalid Interpretation Code Negative [facility] UA Auto SS Hemoglobin Ql (U) 3+ *ABN* (10/28/22 4:54 PM) Invalid Interpretation Code Negative [facility] UA Auto SS Ketones (U) [Mass/Vol] Trace *ABN* (10/28/22 4:54 PM) Invalid Interpretation Code Negative [facility] UA Auto SS [place].plasma/[place] .RBC (Bld) [Mass ratio] 21-30 /HPF Invalid Interpretation Code 0-3/HPF [facility] UA Auto SS Mucus Ql (Urine sed) 1+ (10/28/22 4:54 PM) Normal [facility] UA Auto SS Nitrite Ql (U) Negative (10/28/22 4:54 PM) Normal Negative [facility] UA Auto SS pH (U) 5.5 *NA* (10/28/22 4:54 PM) Invalid Interpretation Code 5.0 - 9.0 [facility] UA Auto SS Protein (U) [Mass/Vol] Negative (10/28/22 4:54 PM) Normal Negative [facility] UA Auto SS Specific gravity (U) [Rel density] >=1.030 *NA* (10/28/22 4:54 PM) Invalid Interpretation Code 1.005 - 1.030 [facility] UA Auto SS UA Spec Desc Clean Catch (10/28/22 4:54 PM) Normal [facility] UA Auto SS Urobilinogen Qn (U) 1.3757448 {Lidya'U}/dL Normal 0.0 - 1.0 EU/dL [facility] UA Auto SS WBC Auto Ql (U) Negative (10/28/22 4:54 PM) Normal Negative [facility] UA Auto SS WBC LM.HPF (Urine sed) [#/Area] 0-5 /HPF Normal 0-5/HPF [facility] UA Auto SS eGFRon 10-28-2022 GFR/1.73 sq M.predicted among non-blacks MDRD (S/P/Bld) [Vol rate/Area] 73 mL/min/1.73 m2 Normal >=59 [facility] Comment on above: Order Comment: Order added by Discern Expert. Result Comment: Labour Market Economist jose kidney disease could be indicated at eGFR's of less than 60 mL/min/1.73m2. Kidney failure is indicated at less than 15 mL/min/1.73m2. Performed By: #### 1 [id number] #### [facility] [address] [place] [address] ED Note-Physicianon 10-28-19 ED Note-Physician Basic Information Time Seen: Donte GUZMAN, Joseph Chávez 10/25/2022 09:33 Chief Complaint Vomitting, pressure tightness in arm History of Present Illness 42-year-old female reports the emergency department with a chief complaint of left-sided chest tightness, and vomiting. Reports has been going on for 2 days. Reports the vomiting started today. Reports that she did her left shoulder. She is concerned that she may be having a heart attack. 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 She states that she is on Plavix for this. She states that she does follow-up with Dr. Hall. She denies any shortness of breath with this. Also reports that she is having some left-sided flank pain, that radiates down into her groin area. Reports he does have a history of kidney stones. States that she does follow-up with Dr. Miranda. She states that she does not have any urinary symptoms, but has increased urinary frequency. Denies any fevers chills with this. Review of Systems A 10 point review of systems is negative except as noted above. Medical and Surgical History: Reviewed and noted Social history: Lives at home Family History: Reviewed. Tobacco: denies, former Physical Exam Vitals & Measurements T: 36.5 ?C(Oral) HR: 87(Peripheral) RR: 18 BP: 104/76 SpO2: 94% HT: 160.02 cm WT: 115 kg BMI: 44.91 General: The patient appears well and in no apparent distress. Patient is resting comfortably on bed. Afebrile Skin: Warm, dry, no pallor noted. Head: Normocephalic, atraumatic Neck: No JVD Eye: PERRLA, EOMI ENT: Moist mucus membranes Cardiovascular: Regular rate normal peripheral perfusion. Radial pulses +2 bilaterally Respiratory: No respiratory distress no accessory muscle use no obvious audible wheezing. Lung sounds clear auscultation Chest Wall: no deformity. No chest wall tenderness palpation. Musculoskeletal: normal ROM, no deformity, no swelling GI: No obvious distention soft. There is mild tenderness of the lower left groin, extends in the left flank. Positive for left-sided CVA tenderness. No rebound tenderness or guarding noted. Neurological: A&O moves all extremities equal strength and symmetry Psychiatric: Cooperative and appropriate Medical Decision Making MEDICAL DECISION MAKING Number and Complexity of Problems Differential Diagnosis: [] [facility] Data External documents reviewed: [] My EKG interpretation: reviewed My CT interpretation: reviewed My X-ray interpretation: reviewed My Ultrasound interpretation: [] Decision rules/scores evaluated: Heart Score for Major Cardiac Event History: Example factors for history - pattern of chest pain, onset, duration, relation with exercise, stress or cold, localization, concominant symptoms. reaction to sublingual nitrates, [] Highly suspicious +2 [] Moderately suspicious +1 [x] Slightly suspicious 0 EKG: [] Significant ST-Depression +2 [] Non specific repolarization disturbance +1 [x] Normal 0 Age: [] >= 65 +2 [] 45-65 + 1 [x] <45 0 Risk Factors: (HLD, HTN, DM, Cigarette Smoking, Pos Family Hx, Obesity) [x] >3 risk factors or hx of atheroslerotic disease + 2 [] 1-2 risk factors + 1 [] No risk factors known 0 Troponin: [] >= 3X normal + 2 [] 1-3X normal + 1 [x] <= Normal 0 [x] 0-3 Points 0.9 - 1.7% risk of major adverse cardiac event in 6 weeks [] 4-6 Points 12-16.6% risk of major adverse cardiac event in 6 weeks [] 7-10 Points 50-65% risk of major adverse cardiac event in 6 weeks Discussed with: [] Treatment and Disposition ED Course: 42-year-old female reports emergency department with a chief complaint of some left-sided chest pain, as well as left-sided flank pain. Reports has been most been going on for 2 days. She states that she does have a cardiac history, also history of kidney stones. She states that she has not had any fevers chills or vomiting. On physical exam the patient she is comfortable lying comfortably in the bed. Lung sounds clear to auscultation. No chest wall tenderness on palpation. Due to her cardiac history, we did initiate cardiac work-up. Patient also had some mild left-sided abdominal pain that went to her left flank. Positive for left-sided CVA tenderness. No rebound tenderness or guarding noted. Due to her symptoms, we also did do a kidney stone work-up on the patient. Work-up reviewed and noted. No acute changes seen. Troponin level is low. Urine did have blood in it, as well as a CT of the abdomen showed some nonobstructing left renal calculi. He does, likely kidney stones is causing pain on her left side. Cardiac work-up was benign. Patient did have a heart score of 2. Due to her extensive cardiac history though, I did offer do a 3-hour troponin on the patient, the patient stated that she was ready to go. Discussed follow-up with artist agent. Discussed follow-up with urologist. Patient will be discharged home on pain medicine, nausea med (more content not included)... Normal [facility] Comment on above: Result Comment: Elec tronically Signed By: Joseph Kent PA-C\.br\Date and Time Signed: 10/25/22 11:27 EDT\.br\Electronically Co-Signed By: Gunnar Rangel DO\.br\Date and Time Co-Signed: 10/27/22 07:42 EDT [id number] 10-26-2022 HbA1c (Bld) [Mass fraction] 6.0 % High <=5.9 [facility] Comment on above: Performed By: #### 2 318638, [id number], 86131920, 5804723 #### [facility] [address] [place] [address] 34075 Auto Diffon 10-25-2022 Basophils/100 WBC (Bld) 0.7 % Normal 0.0-2.0 [facility] Comment on above: Order Comment: Order Added by Discern Expert. Performed By: #### 2 005354, 79113077, 80105500, 3026171, 9672311, 53841805, 5930951, 9863260, 63499174 #### [facility] [address] [place] [address] 67681 Basophils/Leukocytes Auto (Bld) [Pure # fraction] 0.1 E9/L Normal 0.0-0.2 [facility] Comment on above: Order Comment: Order Added by Discern Expert. Performed By: #### 2 150868, 14548735, 82572008, 2697789, 6473770, 49565252, 0213270, 7202433, 02210784 #### [facility] [address] [place] [address] Eosinophils/100 WBC (Bld) 2.9 % Normal 0.0-8.0 [facility] Comment on above: Order Comment: Order Added by Discern Expert. Performed By: #### 2 841845, 04596892, 16628754, 4621111, 6243887, 65009799, 0749882, 9863379, 77411408 #### [facility] [address] [place] [address] Eosinophils/Leukocytes Auto (Bld) [Pure # fraction] 0.2 E9/L Normal 0.0-0.5 [facility] Comment on above: Order Comment: Order Added by Discern Expert. Performed By: #### 2 956680, 64243962, 61971886, 5797090, 9687707, 00274642, 2441791, 0060521, 38404895 #### [facility] [address] [place] [address] 29296 Lymphocytes/100 WBC (Bld) 26.6 % Normal 14.0-50.0 [facility] Comment on above: Order Comment: Order Added by Discern Expert. Performed By: #### 2 442747, 37743624, 86098063, 0155493, 2301539, 77580743, 8298896, 6113724, 71753193 #### [facility] [address] [place] [address] 23248 Lymphocytes/Leukocytes Auto (Bld) [Pure # fraction] 2.3 E9/L Normal 1.0-4.0 [facility] Comment on above: Order Comment: Order Added by Discern Expert. Performed By: #### 2 820184, 77075823, 79650500, 4020955, 8887287, 05507620, 9573168, 1251071, 20033231 #### [facility] [address] [place] [address] 18463 Monocytes/100 WBC (Bld) 4.9 % Normal 4.0-14.0 [facility] Comment on above: Order Comment: Order Added by Discern Expert. Performed By: #### 2 082480, 09701694, 31628232, 6157776, 2379190, 46211162, 5136011, 7912926, 97398713 #### [facility] [address] [place] [address]168 Monocytes/Leukocytes Auto (Bld) [Pure # fraction] 0.4 E9/L Normal 0.2-1.0 [facility] Comment on above: Order Comment: Order Added by Discern Expert. Performed By: #### 2 091886, 17709266, 70069455, 4923037, 0834647, 26740891, 4041042, 5138288, 22820787 #### [facility] [address] [place] [address] Neutrophils/100 WBC (Bld) 64.9 % Normal 36.0-75.0 [facility] Comment on above: Order Comment: Order Added by Discern Expert. Performed By: #### 2 559682, 90168482, 47343658, 4373656, 8785739, 60057239, 8897659, 5452603, 84854455 #### [facility] [address] [place] [address] Neutrophils/Leukocytes Auto (Bld) [Pure # fraction] 5.5 E9/L Normal 2.0-7.5 [facility] Comment on above: Order Comment: Order Added by Discern Expert. Performed By: #### 2 748439, 36101978, 05294713, 1503845, 8559266, 77397290, 7189868, 5580083, 93194021 #### [facility] [address] [place] [address] B hCG Qualon 10-25-2022 Beta hCG Ql Negative Normal [facility] Comment on above: Performed By: #### 2 237516, 10270183, 96303997, 9764328, 6403447, 76255840, 2789640, 6451753, 77029320 ####[facility] [address] [place] [address] BMPon 10-25-2022 Creatinine [Mass/Vol] 1.0 mg/dL Normal 0.5-1.3 [facility] Comment on above: Performed By: #### 2 293326, 23407409, 38374965, 2981893, 2268371, 85235165, 3052366, 6469702, 94369284 ####[facility] [address] [place] [address] Urea nitrogen [Mass/Vol] 19 mg/dL Normal 5-21 [facility] Comment on above: Performed By: #### 2 469974, 62446204, 18488492, 6247675, 0383190, 07058098, 1433864, 7527065, 34956843 ####[facility] [address] [place] [address] Urea nitrogen/Creatinine [Mass ratio] 19 No Units Normal 10-20 [facility] Comment on above: Performed By: #### 2 476867, 94916112, 88224896, 4621906, 5404472, 08802274, 9497185, 8698693, 18802424 ####[facility] [address] [place] [address] Anion gap [Moles/Vol] 13 mmol/L Normal 6-16 [facility] Comment on above: Performed By: #### 2 835388, 39991711, 24304484, 9137198, 1334678, 89992525, 0912613, 6938730, 17850086 ####[facility] [address] [place] [address] Calcium [Mass/Vol] 9.7 mg/dL Normal 8.9-11.1 [facility] Comment on above: Performed By: #### 2 493220, 69725380, 95442365, 4724738, 3969225, 38756068, 1505766, 7286094, 25868444 ####[facility] [address] [place] [address] Chloride [Moles/Vol] 107 mmol/L Normal 101-111 [facility] Comment on above: Performed By: #### 2 153943, 86485908, 30970097, 4178400, 5881569, 65501068, 9743237, 7068000, 90654660 ####[facility] [address] [place] [address] CO2 [Moles/Vol] 24 mmol/L Normal 21-31 [facility] Comment on above: Performed By: #### 2 258082, 26307701, 90125233, 7849254, 6271229, 48835247, 4049496, 4588150, 39976354 ####[facility] [address] [place] [address] Glucose [Mass/Vol] 98 mg/dL Normal 55-199 [facility] Comment on above: Result Comment: If t his glucose result represents a fasting glucose, interpretation should refer to the following reference range: 55-99 mg/dL Performed By: #### 2 122156, 62959916, 01480870, 6126170, 4059890, 93505099, 2521521, 7892183, 83364821 ####[facility] [address] [place] [address] Potassium [Moles/Vol] 4.1 mmol/L Normal 3.5-5.3 [facility] Comment on above: Performed By: #### 2 850696, 22683241, 98432375, 7471182, 4526000, 75192470, 2254297, 7960197, 73026012 ####[facility] [address] [place] [address] Sodium [Moles/Vol] 140 mmol/L Normal 135-145 [facility] Comment on above: Performed By: #### 2 211004, 43202047, 53519980, 7441675, 3619494, 13016820, 0970309, 4872419, 46271874 ####[facility] [address] [place] [address] CBC w/ Auto Diffon 3 Erythrocyte distribution width (RBC) [Ratio] 14.7 % High 10.9-14.2 [facility] Comment on above: Performed By: #### 2 956033, 67743031, 07348269, 2377443, 1787071, 11540887, 0912770, 6890187, 60302480 #### [facility] [address] [place] [address] Hematocrit (Bld) [Volume fraction] 44.2 % Normal 34.0-46.0 [facility] Comment on above: Performed By: #### 2 259534, 87713897, 09577293, 6384631, 1664170, 44226672, 4751834, 3316478, 60839767 #### [facility] [address] [place] [address] Hemoglobin (Bld) [Mass/Vol] 14.8 g/dL Normal 12.0-16.0 [facility] Comment on above: Performed By: #### 2 514136, 60925436, 57949787, 6672038, 4750592, 29959741, 0945022, 7685928, 12832143 #### [facility] [address] [place] [address] MCH (RBC) [Entitic mass] 29.7 pg Normal 27.0-34.0 [facility] Comment on above: Performed By: #### 2 591850, 96459553, 61228363, 7211608, 2738920, 53584040, 1293137, 2974218, 15591282 #### [facility] [address] [place] [address] MCHC (RBC) [Mass/Vol] 33.4 g/dL Normal 31.4-36.0 [facility] Comment on above: Performed By: #### 2 077174, 00236884, 30529780, 7865092, 1041783, 22129660, 1747600, 0998060, 37361949 #### [facility] [address] [place] [address] MCV (RBC) [Entitic vol] 88.9 fL Normal 80.0-100.0 [facility] Comment on above: Performed By: #### 2 880043, 02397647, 50796473, 5957140, 2024583, 57018141, 8263751, 9757928, 69289180 #### [facility] [address] [place] [address] Platelet mean volume (Bld) [Entitic vol] 8.7 fL Normal 6.4-10.8 [facility] Comment on above: Performed By: #### 2 517921, 22718104, 31603277, 2270057, 6325107, 45306316, 0498179, 3034964, 31403859 #### [facility] [address] [place] [address] Platelets (Bld) [#/Vol] 207.0 E9/L Normal 150.0-500.0 [facility] Comment on above: Performed By: #### 2 909223, 96775139, 67403655, 4994735, 6215232, 01282366, 5984730, 2214278, 07127730 #### [facility] [address] [place] [address] RBC (Bld) [#/Vol] 5.0 E12/L Normal 4.3-5.9 [facility] Comment on above: Performed By: #### 2 664888, 46869259, 09465431, 3181546, 6376246, 70108056, 8631668, 9243200, 94036192 #### [facility] [address] [place] [address] WBC corrected for nucl RBC Auto (Bld) [#/Vol] 8.5 E9/L Normal 4.0-11.0 [facility] Comment on above: Performed By: #### 2 937429, 25205327, 57601966, 2782979, 6913845, 08726661, 9302511, 3763597, 66918717 #### [facility] [address] [place] [address] CHEMISTRYOrdered By: SYSTEM SYSTEM on 10-25-2022 Albumin [Mass/Vol] 4.3 g/dL Normal 3.3 - 5.0 gm/dL [facility] Albumin/Globulin [Mass ratio] 1.3 {ratio} Normal 1.1 - 2.2 [facility] ALP [Catalytic activity/Vol] 111 [iU]/d High 21 - 98 Int._Unit/L [facility] ALT No additional P-5'-P [Catalytic activity/Vol] 16 [iU]/d Normal 6 - 46 Int._Unit/L [facility] Anion gap [Moles/Vol] 11 mmol/L Normal 6 - 16 mEq/L [facility] AST [Catalytic activity/Vol] 23 [iU]/d Normal 5 - 43 Int._Unit/L [facility] Bilirubin [Mass/Vol] 0.4 mg/dL Normal 0.0 - 1 .1 mg/dL [facility] Calcium [Mass/Vol] 9.4 mg/dL Normal 8.9 - 11. 1 mg/dL [facility] Chloride [Moles/Vol] 106 mmol/L Normal 101 - 1 11 mmol/L [facility] Cholesterol [Mass/Vol] 122 mg/dL Normal 120 - 200 mg/dL [facility] Cholesterol in HDL [Mass/Vol] 35 mg/dL Invalid Interpretation Code [facility] Cholesterol in LDL [Mass/Vol] 58 mg/dL Normal <=129mg/dL [facility] Cholesterol in VLDL [Mass/Vol] 29 mg/dL Normal 7 - 40 mg/dL [facility] CO2 [Moles/Vol] 27 mmol/L Normal 21 - 31 mmol/L [facility] Creatinine [Mass/Vol] 1.0 mg/dL Normal 0.5 - 1.3 mg/dL [facility] GFR/1.73 sq M.predicted among non-blacks MDRD (S/P/Bld) [Vol rate/Area] 73 mL/min/1.73 m2 Normal >=59mL/min/1 .73 m2 [facility] Chem S Globulin (S) [Mass/Vol] 3.2 g/dL Normal 1.4 - 4.0 gm/dL [facility] Glucose [Mass/Vol] 99 mg/dL Normal 55 - 199 mg/dL [facility] Potassium [Moles/Vol] 4.8 mmol/L Normal 3.5 - 5.3 mmol/L [facility] Protein [Mass/Vol] 7.5 g/dL Normal 6.0 - 7.8 gm/dL [facility] Sodium [Moles/Vol] 139 mmol/L Normal 135 - 145 mmol/L [facility] Triglyceride [Mass/Vol] 144 mg/dL Normal <=149mg/dL [facility] Urea nitrogen [Mass/Vol] 19 mg/dL Normal 5 - 21 mg/dL [facility] Urea nitrogen/Creatinine [Mass ratio] 19 mg/mg Normal 10 - 20 [facility] Albumin [Mass/Vol] 4.1 g/dL Normal 3.3 - 5.0 gm/dL [facility] Albumin/Globulin [Mass ratio] 1.3 {ratio} Normal 1.1 - 2.2 [facility] ALP [Catalytic activity/Vol] 112 [iU]/d High 21 - 98 Int._Unit/L [facility] ALT No additional P-5'-P [Catalytic activity/Vol] 16 [iU]/d Normal 6 - 46 Int._Unit/L [facility] Anion gap [Moles/Vol] 13 mmol/L Normal 6 - 16 mEq/L [facility] AST [Catalytic activity/Vol] 27 [iU]/d Normal 5 - 43 Int._Unit/L [facility] Bilirubin [Mass/Vol] 0.5 mg/dL Normal 0.0 - 1 .1 mg/dL [facility] Bilirubin.direct [Mass/Vol] 0.1 mg/dL Normal 0.1 - 0.4 mg/dL [facility] Bilirubin.indirect [Mass or moles/Vol] 0.4 mg/dL Normal 0.1 - 0.9 mg/dL [facility] Calcium [Mass/Vol] 9.7 mg/dL Normal 8.9 - 11. 1 mg/dL [facility] Chloride [Moles/Vol] 107 mmol/L Normal 101 - 1 11 mmol/L [facility] CO2 [Moles/Vol] 24 mmol/L Normal 21 - 31 mmol/L [facility] Creatinine [Mass/Vol] 1.0 mg/dL Normal 0.5 - 1.3 mg/dL [facility] GFR/1.73 sq M.predicted among non-blacks MDRD (S/P/Bld) [Vol rate/Area] 73 mL/min/1.73 m2 Normal >=59mL/min/1 .73 m2 [facility] Chem S Globulin (S) [Mass/Vol] 3.2 g/dL Normal 1.4 - 4.0 gm/dL [facility] Glucose [Mass/Vol] 98 mg/dL Normal 55 - 199 mg/dL [facility] Lipase [Catalytic activity/Vol] 58 U/L Normal 13 - 58 unit/L [facility] Potassium [Moles/Vol] 4.1 mmol/L Normal 3.5 - 5.3 mmol/L [facility] Protein [Mass/Vol] 7.3 g/dL Normal 6.0 - 7.8 gm/dL [facility] Sodium [Moles/Vol] 140 mmol/L Normal 135 - 145 mmol/L [facility] Troponin I.cardiac [Mass/Vol] pg/mL Low 10.10 - 27.10 pg/mL [facility] Remisol Urea nitrogen [Mass/Vol] 19 mg/dL Normal 5 - 21 mg/dL [facility] Remisol Urea nitrogen/Creatinine [Mass ratio] 19 mg/mg Normal 10 - 20 [facility] Remisol CMPon 10-25-2022 Albumin [Mass/Vol] 4.3 g/dL Normal 3.3-5.0 [facility] Comment on above: Performed By: #### 2 024609, 455209306, 37991807, 3136499 #### [facility] [address] [place] [address] Albumin/Globulin (S) [Mass conc ratio] 1.3 Normal 1.1-2.2 [facility] Comment on above: Performed By: #### 2 963019, 309968435, 24050389, 3400744 #### [facility] [address] [place] [address] ALP [Catalytic activity/Vol] 111 Int._Unit/L High 21-98 [facility] Comment on above: Performed By: #### 2 020239, 204910652, 19216532, 4014505 #### [facility] [address] [place] [address] ALT No additional P-5'-P [Catalytic activity/Vol] 16 Int._Unit/L Normal 6-46 [facility] Comment on above: Performed By: #### 2 072414, 630709752, 40810275, 1973283 #### [facility] [address] [place] [address] Anion gap [Moles/Vol] 11 mmol/L Normal 6-16 [facility] Comment on above: Performed By: #### 2 287682, 311907585, 14933669, 2804146 #### [facility] [address] [place] [address] AST [Catalytic activity/Vol] 23 Int._Unit/L Normal 5-43 [facility] Comment on above: Performed By: #### 2 376077, 167228738, 47171737, 2992247 #### [facility] [address] [place] [address] Bilirubin [Mass/Vol] 0.4 mg/dL Normal 0.0-1.1 [facility] Comment on above: Performed By: #### 2 223324, 694651600, 50540263, 4587985 #### [facility] [address] [place] [address] Calcium [Mass/Vol] 9.4 mg/dL Normal 8.9-11.1 [facility] Comment on above: Performed By: #### 2 204213, 896313042, 27776603, 5933804 #### [facility] [address] [place] [address] Chloride [Moles/Vol] 106 mmol/L Normal 101-111 [facility] Comment on above: Performed By: #### 2 916533, 127846373, 98247544, 6298906 #### [facility] [address] [place] [address] CO2 [Moles/Vol] 27 mmol/L Normal 21-31 [facility] Comment on above: Performed By: #### 2 719354, 236686953, 69608343, 1857977 #### [facility] [address] [place] [address] Creatinine [Mass/Vol] 1.0 mg/dL Normal 0.5-1.3 [facility] Comment on above: Performed By: #### 2 325591, 925495959, 90103164, 8135826 #### [facility] [address] [place] [address] Globulin (S) [Mass/Vol] 3.2 g/dL Normal 1.4-4.0 [facility] Comment on above: Performed By: #### 2 345093, 323698606, 97211818, 1341136 #### [facility] [address] [place] [address] Glucose [Mass/Vol] 99 mg/dL Normal 55-199 [facility] Comment on above: Result Comment: If t his glucose result represents a fasting glucose, interpretation should refer to the following reference range: 55-99 mg/dL Performed By: #### 2 186143, 208467783, 25330857, 6601192 #### [facility] [address] [place] [address] Potassium [Moles/Vol] 4.8 mmol/L Normal 3.5-5.3 [facility] Comment on above: Performed By: #### 2 713413, 755973961, 56340137, 6083347 #### [facility] [address] [place] [address] Protein [Mass/Vol] 7.5 g/dL Normal 6.0-7.8 [facility] Comment on above: Performed By: #### 2 932007, 261481557, 25332258, 1814081 #### [facility] [address] [place] [address] Sodium [Moles/Vol] 139 mmol/L Normal 135-145 [facility] Comment on above: Performed By: #### 2 864462, 660147081, 94167517, 3823030 #### [facility] [address] [place] [address] Urea nitrogen [Mass/Vol] 19 mg/dL Normal 5-21 [facility] Comment on above: Performed By: #### 2 021261, 046939618, 43393688, 0635966 #### [facility] [address] [place] [address] Urea nitrogen/Creatinine [Mass ratio] 19 No Units Normal 10-20 [facility] Comment on above: Performed By: #### 2 386221, 822156269, 23297986, 2254191 #### [facility] [address] [place] [address] COAGULATIONOrdered By: Flor Walsh on 10-25-2022 aPTT Coag (PPP) [Time] 29.8 s Normal 25.1 - 36.5 second(s) [facility] Auto Coag INR Coag (PPP) [Relative time] 0.9 {INR} Invalid Interpretation Code [facility] Auto Coag PT Coag (PPP) [Time] 9.5 s Normal 9.4 - 1 2.5 second(s) [facility] Auto Coag CT Abdomen/Pelvis w/o Contra ston 10-25-2022 CT Abdomen/Pelvis w/o Contrast Exam Date/Time: 10/25/2022 10:48 EDT Reason for Exam: Abdominal pain, acute, nonlocalized;Other (please specify) Report IMPRESSION: ACUTE ABDOMINOPELVIC PROCESS. HEPATOMEGALY AND HEPATIC STEATOSIS. NONOBSTRUCTING LEFT RENAL CALCULI. COLONIC DIVERTICULOSIS WITHOUT DIVERTICULITIS. EXAM: CT Abdomen/Pelvis w/o Contrast History: Abdominal pain. Vomiting. Technique: Multiple contiguous axial images were obtained of the abdomen and pelvis from the level of the lung bases through the ischial tuberosities without contrast. Multiplanar reformats were obtained. Comparison: CT abdomen pelvis 12/27/2021 Findings: Lung bases are clear. Lack of intravenous contrast precludes optimal evaluation of the abdominal and pelvic viscera. Diffuse hypoattenuation of the liver. The liver is enlarged measuring approximately 21 cm in craniocaudal length. The gallbladder, stomach, pancreas, spleen, and adrenal glands appear within normal limits. 1.5 cm right renal cyst arising from the inferior pole. There are a few tiny nonobstructing left renal calculi. No left-sided hydronephrosis. No right-sided urinary tract calculi or hydronephrosis. Urinary bladder is poorly distended but is unremarkable. The uterus is absent. Abdominal aorta is nonaneurysmal. No retroperitoneal or abdominal/pelvic lymphadenopathy. No small bowel obstruction. A few colonic diverticuli are identified. No overt colonic mass or pericolonic inflammation. Appendix is within normal limits. No free fluid or free air. Surgical changes of the ventral abdominal wall. No acute osseous abnormality. Report All CT scans at this facility use dose modulation, iterative reconstruction, and/or weight based dosing when appropriate to reduce radiation dose to as low as reasonably achievable. Ordering Provider: Joseph Kent FINAL REPORT Dictated: 10/25/2022 11:13 am Ranjan Baptiste DO Signed (Electronic Signature): 10/25/2022 11:13 am Signed by: Ranjan Baptiste DO Transcribed by: FLORENTINO Technologist: ROD Technical Comments Rectal Contrast Given? No Oral contrast amount in ml's: 0 [facility] Consent for Treatmenton 10-14 Consent for Treatment [id number] .00CD:127 Normal [facility] Consent for Treatment [id number] .00CD:127 [facility] Discharge Instructionson Discharge Instructions [id number]# 1.00CD:127 [facility] ED Clinical Summaryon 2022 ED Clinical Summary [place] [address] ED Clinical Summary Person Information Name: TISH VARGAS [facility] Age: 42 Years : 1980 Sex: Female Language: Martiniquais PCP: YANET CHAIREZ CNP Marital Status: Visit Id: Visit Reason: Chest pain; N/V CHEST PAIN TIGHTENING, LEFT KIDNEY/BLADDER PAIN Speciality: Acuity: 3 Enc Type: Emergency Med Service: Emergency Arrival: 10/25/2022 09:29:31 Discharge: 10/25/2022 11:40:00 LOS: 000 02:11 Checkin: 10/25/2022 09:29:31 Checkout: 10/25/2022 11:40:00 Dispo Type: Home (Routine DC) EVENTS: Event Name Event Status Request Date/Time Start Date/Time Complete Date/Time Arrive Complete 10/25/2022 09:29:31 10/25/2022 09:29:31 10/25/2022 09:29:31 Document Home Meds Request 10/25/2022 09:29:31 Triage Complete 10/25/2022 09:29:31 10/25/2022 09:34:39 10/25/2022 09:34:39 Bed Assign Complete 10/25/2022 09:31:41 10/25/2022 09:31:41 10/25/2022 09:31:41 Dr Exam Complete 10/25/2022 09:31:41 10/25/2022 09:33:18 10/25/2022 09:33:18 RN Exam Complete 10/25/2022 09:31:41 10/25/2022 10:34:12 10/25/2022 10:34:12 Registration Complete 10/25/2022 09:33:18 10/25/2022 10:35:03 10/25/2022 10:35:03 Dr Exam Complete 10/25/2022 09:33:47 10/25/2022 09:33:47 10/25/2022 09:33:47 EKG Complete 10/25/2022 09:34:06 10/25/2022 09:37:12 Isolation Screening Request 10/25/2022 09:34:39 Meds Admin Complete 10/25/2022 09:51:38 10/25/2022 10:31:18 Pending Labs Complete 10/25/2022 09:51:38 10/25/2022 11:54:38 Lab Complete 10/25/2022 09:51:38 10/25/2022 10:35:47 Urine Collect Complete 10/25/2022 09:51:38 10/25/2022 10:35:47 CT Complete 10/25/2022 09:51:38 10/25/2022 10:30:35 10/25/2022 10:48:03 X-Ray Complete 10/25/2022 09:51:38 10/25/2022 10:46:47 10/25/2022 10:47:28 Pending Labs Complete 10/25/2022 10:11:14 10/25/2022 10:11:14 10/25/2022 10:34:53 Lab Complete 10/25/2022 10:11:14 10/25/2022 10:11:14 10/25/2022 10:34:53 Pending Labs Complete 10/25/2022 10:19:01 10/25/2022 10:19:01 10/25/2022 10:19:09 Lab Complete 10/25/2022 10:19:01 10/25/2022 10:19:01 10/25/2022 10:19:09 Reg Complete Request 10/25/2022 10:35:03 Reg Bed Request Complete 10/25/2022 10:35:03 10/25/2022 10:35:03 10/25/2022 10:35:03 Wet Read Complete 10/25/2022 10:47:28 10/25/2022 11:08:44 10/25/2022 11:08:44 Discharge Complete 10/25/2022 11:23:52 10/25/2022 12:11:07 10/25/2022 12:11:07 Transfer Complete 10/25/2022 12:11:07 10/25/2022 12:11:07 10/25/2022 12:11:07 ADDRESS: [address] [facility] [id number] PHYS DOC NOTES: MEDICAL INFORMATION: Prescriptions Given: New Medications [facility]/pharmacy #[id number], [address] [place], [place] [id number], [phone] tamsulosin (Flomax 0.4 mg Cap) 1 Capsules By Mouth every day. Refills: 0. Medications to Continue Taking That Have Changed [facility]/pharmacy #[id number], [address] [place], [place] [phone], [phone] START: acetaminophen-oxycodo ne (acetaminophen-oxycod one 325 mg-5 mg Tab) 1 Tablets By Mouth every 6 hours as needed for pain for 3 Days. Refills: 0. START: ondansetron (Zofran ODT 4 mg Tab-Dis) 1 Tablets By Mouth every 8 hours as needed Nausea/Vomiting. Refills: 0. Other Medications START: acetaminophen-oxycodo ne (Percocet 325 mg-5 mg Tab) 1 Tablets By Mouth every 6 hours as needed as needed for pain. Refills: 0. START: ondansetron (Zofran 4 mg Tab) 1 Tablets By Mouth every 8 hours as needed Nausea/Vomiting. Refills: 0. START: ondansetron (Zofran 4 mg Tab) 1 Tablets By Mouth every 8 hours as needed Nausea/Vomiting. Refills: 0. Medications to Continue with No Changes Other Medications albuterol (albuterol HFA 90 mcg/inh MDI) 2 Puffs Inhalation 4 times a day as needed for wheezing. Refills: 0. alprazolam (Xanax 1 mg Tab) 1 Tablets By Mouth 2 times a day as needed for anxiety. aspirin (aspirin 81 mg Chew Tab) 1 Tablets Chewed every day. atorvastatin (atorvastatin 80 mg Tab) 1 Tablets By Mouth every day. Refills: 0. clopidogrel (Plavix 75 mg Tab) 1 Tablets By Mouth every day. empagliflozin (Jardiance 25 mg oral tablet) 1 Tablets By Mouth once a day (in the morning). gabapentin (gabapentin 300 mg Cap) 1 Capsules By Mouth 3 times a day. insulin glargine (Lantus Solostar Pen 100 units/mL subcutaneous solution) isosorbide mononitrate (isosorbide mononitrate 30 mg ER Tab) 1 Tablets By Mouth once a day (in the morning). Refills: 0. losartan (losartan 25 mg Tab) 1 Tablets By Mouth at bedtime. metformin (MetFORMIN (Eqv-Glucophage XR) 500 mg oral tablet, extended release) 2 Tablets By Mouth 2 times a day. metoprolol (Metoprolol tartrate 25 mg Tab) 1 Tablets By Mouth 2 times a day. naproxen (Naprosyn 500 mg Tab) 1 Tablets By Mouth 2 times a day as needed for pain. Refills: 0. nitroglycerin (nitroglycerin 0.4% rectal ointment) Rectal q12hr. Refills: 0. ranolazine (Ranexa 500 mg Tab-ER) 1 Tablets By Mouth 2 times a day. Refills: 1. semaglutide (Ozempic) venlafaxine (Effexor XR 150 mg Cap-ER) 1 (more content not included)... Normal [facility] ED Patient Education Noteon 10-25-2022 ED Patient Education Note Gastroenterology Nonspecific Chest Pain Chest pain can be caused by many different conditions. Some causes of chest pain can be life-threatening. These will require treatment right away. Serious causes of chest pain include: ? Heart attack. ? A tear in the body's main blood vessel. ? Redness and swelling (inflammation) around your heart. ? Blood clot in your lungs. Other causes of chest pain may not be so serious. These include: ? Heartburn. ? Anxiety or stress. ? Damage to bones or muscles in your chest. ? Lung infections. Chest pain can feel like: ? Pain or discomfort in your chest. ? Crushing, pressure, aching, or squeezing pain. ? Burning or tingling. ? Dull or sharp pain that is worse when you move, cough, or take a deep breath. ? Pain or discomfort that is also felt in your back, neck, jaw, shoulder, or arm, or pain that spreads to any of these areas. It is hard to know whether your pain is caused by something that is serious or something that is not so serious. So it is important to see your doctor right away if you have chest pain. Follow these instructions at home: Medicines ? Take cwqa-hdx-onvljdv and prescription medicines only as told by your doctor. ? If you were prescribed an antibiotic medicine, take it as told by your doctor. Do not stop taking the antibiotic even if you start to feel better. Lifestyle ? Rest as told by your doctor. ? Do not use any products that contain nicotine or tobacco, such as cigarettes, e-cigarettes, and chewing tobacco. If you need help quitting, ask your doctor. ? Do not drink alcohol. ? Make lifestyle changes as told by your doctor. These may include: ? Getting regular exercise. Ask your doctor what activities are safe for you. ? Eating a heart-healthy diet. A diet and food and nutrition services supervisor (dietitian) can help you to learn healthy eating options. ? Staying at a healthy weight. ? Treating diabetes or high blood pressure, if needed. ? Lowering your stress. Activities such as yoga and relaxation techniques can help. General instructions ? Pay attention to any changes in your symptoms. Tell your doctor about them or any new symptoms. ? Avoid any activities that cause chest pain. ? Keep all follow-up visits as told by your doctor. This is important. You may need more testing if your chest pain does not go away. Contact a doctor if: ? Your chest pain does not go away. ? You feel depressed. ? You have a fever. Get help right away if: ? Your chest pain is worse. ? You have a cough that gets worse, or you cough up blood. ? You have very bad (severe) pain in your belly (abdomen). ? You pass out (faint). ? You have either of these for no clear reason: ? Sudden chest discomfort. ? Sudden discomfort in your arms, back, neck, or jaw. ? You have shortness of breath at any time. ? You suddenly start to sweat, or your skin gets clammy. ? You feel sick to your stomach (nauseous). ? You throw up (vomit). ? You suddenly feel lightheaded or dizzy. ? You feel very weak or tired. ? Your heart starts to beat fast, or it feels like it is skipping beats. These symptoms may be an emergency. Do not wait to see if the symptoms will go away. Get medical help right away. Call your local emergency services (911 in the [place] Do not drive yourself to the hospital. Summary ? Chest pain can be caused by many different conditions. The cause may be serious and need treatment right away. If you have chest pain, see your doctor right away. ? Follow your doctor's instructions for taking medicines and making lifestyle changes. ? Keep all follow-up visits as told by your doctor. This includes visits for any further testing if your chest pain does not go away. ? Be sure to know the signs that show that your condition has become worse. Get help right away if you have these symptoms. This information is not intended to replace advice given to you by your health care provider. Make sure you discuss any questions you have with your health care provider. Document Revised: 05/16/2021 Document Reviewed: 05/16/2021 [employer] Patient Education ? 2022 [employer]. Urology Kidney Stones Kidney stones are solid, rock-like deposits that form inside of the kidneys. The kidneys are a pair of organs that make urine. A kidney stone may form in a kidney and move into other parts of the urinary tract, including the tubes that connect the kidneys to the bladder (ureters), the bladder, and the tube that carries urine out of the body (urethra). As the stone moves through these areas, it can cause intense pain and block the flow of urine. Kidney stones are created when high levels of certain minerals are found in the urine. The stones are usually passed out of the body through urination, but in some cases, medical treatment may be needed to remove them. What are the causes? Kidney stones may be caused by: ? A conditi (more content not included)... Normal [facility] ED Patient Summaryon 023 ED Patient Summary [place] [id number] Patient Discharge Instructions Person Information Name: TISH VARGAS Age: 42 Years Arrival Date: 10/25/2022 09:29:31 Discharge Diagnosis: Kidney stone on left side; Nonspecific chest pain Primary Care Physician: YANET CHAIREZ CNP Provider Information Primary Provider: Gunnar Rangel DO Advanced Material Analyst:None The exam and treatment you received in the Emergency Department were for an urgent problem and are not intended as complete care. It is important that you follow up with a doctor, nurse practitioner, or physician?s credentialing assistant for ongoing care. If your symptoms become worse or you do not improve as expected and you are unable to reach your usual health care provider, you should return to the Emergency Department. We are available 24 hours a day. TISH VARGAS has been given the following list of patient education materials, prescriptions and follow-up instructions: Follow-up Instructions: With: Address: When: Koko Vasquez [address] [place] [id number] Business (1) In 3 days 10/28/2022 With: Address: When: [place] MIRANDA [facility], [address], [place] [address] Business (1) In 3 days 10/28/2022 With: Address: When: YANET CHAIREZ [address] [place], [place] [phone] Business (1) In 3 days 10/28/2022 Comments: Follow-up with your primary care provider in 3 to 5 days. If symptoms worsen, do not improve, or new symptoms arise please report back to emergency department for further evaluation. In the event that this physician does not participate in your insurance network, please consult with your insurance company to find a nearby participating provider. Patient Education Materials: Kidney Stones; Nonspecific Chest Pain, Adult, Hdmt-zy-Kduy A MESSAGE TO ALL PATIENTS REGARDING OPIOIDS PRESCRIPTION OPIOIDS: WHAT YOU NEED TO KNOW Prescription opioids can be used to help relieve pcikocxr-uh-pixtnw pain and are often prescribed following a surgery or injury, or for certain health conditions. These medications can be an important part of the treatment but also come with serious risks. It is important to work with your healthcare provider to make sure you are getting the safest, most effective care. WHAT ARE THE RISKS AND SIDE EFFECTS OF OPIOID USE? Prescription opioids carry serious risks of addiction and overdose, especially with prolonged use. An opioid overdose, often marked by slowed breathing, can cause sudden . The use of prescription opioids can have a number of side effects as well, even when taken as directed: ? Tolerance?meaning you might need to take more of the medication for the same pain relief ? Physical dependence?meaning you have symptoms of withdrawal when a medication is stopped ? Increased sensitivity to pain ? Constipation ? Nausea, vomiting, and dry mouth ? Sleepiness and dizziness ? Confusion ? Depression ? Low levels of testosterone that can result in lower sex drive, energy, and strength ? Itching and sweating RISKS ARE GREATER WITH: ? History of drug misuse, substance use disorder, or overdose ? Mental health conditions (such as depression or anxiety) ? Sleep apnea ? Older age (65 years and older) ? Avoid alcohol while taking prescription opioids. Also, unless specifically advised by your health care provider, medications to avoid include: ? Benzodiazepines (such as Xanax or Valium) ? Muscle relaxants (such as Soma or Flexeril) ? Hypnotics (such as Ambien or Lunesta) ? Other prescription opioids KNOW YOUR OPTIONS Talk to your health care provider about ways to manage your pain that don?t involve prescription opioids. Some of these options may actually work better and have fewer risks and side effects. Options may include: ? Pain relievers such as acetaminophen, ibuprofen, and naproxen ? Some medication that are also used for depression or seizures ? Physical therapy and exercise ? Cognitive behavioral therapy, a psychological, goal-directed approach, in which patients learn how to modify physical, behavioral, and emotional triggers of pain and stress. IF YOU ARE PRESCRIBED OPIOIDS FOR PAIN: ? Never take opioids in greater amounts or more often than prescribed. ? Follow up with your primary health care provider. o Work together to create a plan on how to manage your pain. o Talk about ways to help manage your pain that don?t involve prescription opioids. o Talk about any and all concerns and side effects. ? Help prevent misuse and abuse o Never sell or share prescription opioids. o Never use another person?s prescription opioids. ? Store prescription opioids in a secure place and out of reach of others (this may include visitors, children, friends, and (more content not included)... Normal [facility] HEMATOLOGYOrdered By: SYSTEM SYSTEM on 10-25-2022 Basophils/100 WBC (Bld) 0.7 % Normal 0.0 - 2.0 % [facility] Basophils/Leukocytes Auto (Bld) [Pure # fraction] 0.1 E9/L Normal 0.0 - 0.2 E9/L [facility] Eosinophils/100 WBC (Bld) 2.9 % Normal 0.0 - 8.0 % [facility] Eosinophils/Leukocytes Auto (Bld) [Pure # fraction] 0.2 E9/L Normal 0.0 - 0.5 E9/L [facility] Lymphocytes/100 WBC (Bld) 26.6 % Normal 14.0 - 50.0 % [facility] Lymphocytes/Leukocytes Auto (Bld) [Pure # fraction] 2.3 E9/L Normal 1.0 - 4.0 E9/L [facility] Monocytes/100 WBC (Bld) 4.9 % Normal 4.0 - 14.0 % [facility] Monocytes/Leukocytes Auto (Bld) [Pure # fraction] 0.4 E9/L Normal 0.2 - 1.0 E9/L [facility] Neutrophils/100 WBC (Bld) 64.9 % Normal 36.0 - 75.0 % [facility] Neutrophils/Leukocytes Auto (Bld) [Pure # fraction] 5.5 E9/L Normal 2.0 - 7.5 E9/L [facility] HEMATOLOGYOrdered By: Sangeeta Arroyo on 10-25-2022 Erythrocyte distribution width (RBC) [Ratio] 14.7 % High 10.9 - 14.2 % [facility] Hematocrit (Bld) [Volume fraction] 44.2 % Normal 34.0 - 46.0 % [facility] Hemoglobin (Bld) [Mass/Vol] 14.8 g/dL Normal 12.0 - 16.0 gm/dL [facility] MCH (RBC) [Entitic mass] 29.7 pg Normal 27.0 - 34.0 pg [facility] MCHC (RBC) [Mass/Vol] 33.4 g/dL Normal 31.4 - 36.0 gm/dL [facility] MCV (RBC) [Entitic vol] 88.9 fL Normal 80.0 - 100.0 fL [facility] Platelet mean volume (Bld) [Entitic vol] 8.7 fL Normal 6.4 - 10.8 fL [facility] Platelets (Bld) [#/Vol] 207.0 E9/L Normal 150.0 - 500.0 E9/L [facility] RBC (Bld) [#/Vol] 5.0 E12/L Normal 4.3 - 5.9 E12/L [facility] WBC corrected for nucl RBC Auto (Bld) [#/Vol] 8.5 E9/L Normal 4.0 - 11.0 E9/L [facility] Hep Func Panelon 10-25-2022 Albumin [Mass/Vol] 4.1 g/dL Normal 3.3-5.0 [facility] Comment on above: Performed By: #### 2 326230, 01839328, 82508639, 7152272, 5189174, 88347374, 2394558, 8910768, 04297576 ####[facility] [address] [place] [address] Albumin/Globulin (S) [Mass conc ratio] 1.3 Normal 1.1-2.2 [facility] Comment on above: Performed By: #### 2 067687, 69711440, 30142352, 1817877, 2305270, 03922379, 3685234, 2048410, 25624199 ####[place] [address] [place] [address] ALP [Catalytic activity/Vol] 112 Int._Unit/L High 21-98 [facility] Comment on above: Performed By: #### 2 305631, 50730763, 81015018, 6512677, 3167209, 19667352, 3070713, 7399508, 34796882 ####[facility] [address] [place] [address] ALT No additional P-5'-P [Catalytic activity/Vol] 16 Int._Unit/L Normal 6-46 [facility] Comment on above: Performed By: #### 2 010403, 29350487, 18846460, 8217122, 9444581, 64377702, 5258349, 8239437, 69467593 ####[address] [address] AST [Catalytic activity/Vol] 27 Int._Unit/L Normal 5-43 [facility] Comment on above: Performed By: #### 2 516269, 42046863, 13300695, 1703676, 3232403, 70514943, 9664419, 2606008, 75897846 ####[place] [address] [address] [place] [address] Bilirubin [Mass/Vol] 0.5 mg/dL Normal 0.0-1.1 [facility] Comment on above: Performed By: #### 2 654063, 21672275, 41105651, 9796188, 7742459, 93522908, 4125668, 0228850, 76829712 ####[facility] [address] [place] [address] Bilirubin.direct [Mass/Vol] 0.1 mg/dL Normal 0.1-0.4 [facility] Comment on above: Performed By: #### 2 637402, 65080360, 35146166, 5910478, 6066553, 23798366, 7547473, 3386616, 94519760 ####[facility] [address] [place] [address] Bilirubin.indirect [Mass or moles/Vol] 0.4 mg/dL Normal 0.1-0.9 [facility] Comment on above: Performed By: #### 2 722618, 17295453, 52669015, 2598968, 3398553, 34509351, 9379222, 3410506, 67612810 ####[facility] [address] [place] [address] Globulin (S) [Mass/Vol] 3.2 g/dL Normal 1.4-4.0 [facility] Comment on above: Performed By: #### 2 893141, 70616898, 52046595, 3873479, 3279642, 48155499, 6301033, 2627381, 32393778 ####[place] [address] [place] [address] Protein [Mass/Vol] 7.3 g/dL Normal 6.0-7.8 [facility] Comment on above: Performed By: #### 2 729530, 10361372, 06192248, 6489748, 1505509, 99865901, 7679760, 6699639, 41571531 ####[address] [place] [address] Lipase Levelon 10-25-2022 Lipase [Catalytic activity/Vol] 58 U/L Normal 13-58 [facility] Comment on above: Performed By: #### 2 172129, 15620191, 41565187, 2226105, 1358392, 90937578, 1236232, 1204830, 05136277 ####[facility] [address] [place] [address] Lipid Panelon 10-25-2022 Cholesterol [Mass/Vol] 122 mg/dL Normal 120-200 [facility] Comment on above: Performed By: #### 2 231133, 621471020, 79885943, 2269623 #### [facility] [address] [place] [address] Cholesterol in HDL [Mass/Vol] 35 mg/dL Invalid Interpretation Code [facility] Comment on above: Result Comment: HDL > or equal to 60 mg/dL: Low cardiovascular risk HDL < 40 mg/dL : High cardiovascular risk Performed By: #### 2 969861, 192243141, 55320644, 3317760 #### [facility] [address] [place] [address] Cholesterol in LDL [Mass/Vol] 58 mg/dL Normal <=129 [facility] Comment on above: Performed By: #### 2 237217, 102913553, 24613273, 9743554 #### [facility] [address] [place] [address] Cholesterol in VLDL [Mass/Vol] 29 mg/dL Normal 7-40 [facility] Comment on above: Performed By: #### 2 403346, 129444758, 29905229, 1397753 #### [facility] [address] [place] [address] Triglyceride [Mass/Vol] 144 mg/dL Normal <=149 [facility] Comment on above: Performed By: #### 2 266761, 476220166, 24704378, 6857113 #### [facility] [address] [place] [address] PT & PTTon 10-25-2022 aPTT Coag (PPP) [Time] 29.8 second(s) Normal 25.1-36.5 [facility] Comment on above: Result Comment: Para meter 15 days - 4 weeks 1 - 5 months 6 - 11 months 1 - 5 years 6 - 10 years 11 - 17 years PTT Mean: 35.4 (27.6-45.6) Mean: 33.5 (24.8-40.7) Mean: 32.4 (25.1-40.7) Mean: 31.6 (24.0-39.2) Mean: 31.6 (26.9-38.7) Mean: 31.0 (24.6-38.4) Pediatric Reference ranges were obtained from a study by carlo Turk. prepared from 1437 samples obtained at 7 different centers using the same coagulation reagent and instrumentation as [facility]. Currently there are no coagulation studies available worldwide for children to 14 days, and no normal ranges. Heparin therapeutic range (represented by Anti-Factor Xa activity of 0.2 - 0.4 U/mL) corresponds to PTT of 56.6 - 109.0 sec. Performed By: #### 2 053482, 07923126, 98250295, 4932978, 9103704, 53974301, 8751458, 9130300, 52009276 ####[facility] [address] [place] [address] INR Coag (PPP) [Relative time] 0.9 {INR} Invalid Interpretation Code [facility] Comment on above: Result Comment: INR results are specifically intended to assess patients stabilized on long-term Anticoagulation therapy suggested INR?s ?Less Intensive Anticoagulation? 2.0 ? 3.0 Conventional Range 3.0 ? 4.5 Performed By: #### 2 513396, 52331629, 11218014, 1939789, 4817021, 66085337, 3174394, 2314412, 71143342 ####[facility] [address] [place] [address] PT Coag (PPP) [Time] 9.5 second(s) Normal 9.4-12.[address] [facility] Comment on above: Result Comment: 15 d ays - 4 weeks 1 - 5 months 6 -11 months 1 ? 5 years 6 ? 10 years 11 -17 years Mean: 11.2 (9.5 ? 12.6) Mean: 11.0 (9.7 ? 12.8) Mean: 11.0 (9.8 ? 13.0) Mean: 11.3 (9.9 ? 13.4) Mean: 11.7 (10.0 ? 14.6) Mean: 11.8 (10.0 - 14.1) Pediatric Reference ranges were obtained from a study by annita Turk prepared from 1437 samples obtained at 7 different centers using the same coagulation reagent and instrumentation as [facility]. Currently there are no coagulation studies available worldwide for children to 14 days, and no normal ranges. Performed By: #### 2 392170, 03443258, 54901125, 6717239, 5982106, 61527146, 6186088, 9739419, 33611955 ####[facility] [address] [place] [address] Physician Orderon 10-25-2022 Physician Order [id number]:127 Normal [facility] Physician Order [id number] .[id number]:127 Normal [facility] SEROLOGYOrdered By: Marga Walsh on 10-25-2022 Beta hCG Ql Negative (10/25/22 10:02 AM) Normal [facility] Man Sero Troponin 0 Hr.on 10-25-2022 Troponin I.cardiac [Mass/Vol] ng/mL Low 10.10-27.10 [facility] Comment on above: Result Comment: The 95% CI (Confidence Interval) PPV (Positive Predictive Value) for myocardial infarction in females is 38 pg/mL, in males 51 pg/mL. The results should be used in conjunction with clinical conditions of myocardial infarction. (Access High Sensitivity Troponin I Instructions For Use, Meryl Antionette, October 2017) Performed By: #### 2 736387, 07497278, 63458659, 6486381, 0706973, 51468024, 3125550, 1671862, 69926817 ####[facility] [address] [place] [address] UA With Cult Reflexon 2022 Bacteria LM Ql (Urine sed) 1+ /HPF Abnormal Trace [facility] Comment on above: Performed By: #### 1 [id number] #### [facility] [facility] [address] [place] [address] Bilirubin Ql (U) Negative Normal Negative [facility] Comment on above: Performed By: #### 1 [id number] #### [facility] [address] [place] [address] Clarity (U) CLEAR Normal Clear [facility] Comment on above: Performed By: #### 1 [id number] #### [facility] [address] [place] [address] Color (U) YELLOW Normal Yellow [facility] Comment on above: Performed By: #### 1 [id number] #### [facility] [address] [place] [address] Epithelial cells.squamous LM.HPF (Urine sed) [#/Area] 5-8 Normal 0-2 [facility] Comment on above: Performed By: #### 1 [id number] #### [facility] [address] [place] [address] Glucose Test strip (U) [Mass/Vol] 3+ Abnormal Negative [facility] Comment on above: Performed By: #### 1 [id number] #### [facility] [address] [place] [address] Hemoglobin Ql (U) 3+ Abnormal Negative [facility] Comment on above: Performed By: #### 1 [id number] #### [facility] [address] [place] [address] Ketones (U) [Mass/Vol] Negative Normal Negative [facility] Comment on above: Performed By: #### 1 [id number] #### [facility] [address] [place] [address] [place].plasma/[place] .RBC (Bld) [Mass ratio] 4-20 Normal 0-3 [facility] Comment on above: Performed By: #### 1 [id number] #### [facility] [address] [place] [address] Mucus Ql (Urine sed) 1+ Normal Fish [facility] Comment on above: Performed By: #### 1 [id number] #### [facility] [address] [place] [address] Nitrite Ql (U) Negative Normal Negative [facility] Comment on above: Performed By: #### 1 [id number] #### [facility] [address] [place] [address] pH (U) 5.5 [pH] Invalid Interpretation Code 5.0-9.0 [facility] Comment on above: Performed By: #### 1 [id number] #### [facility] [address] [place] [address] Protein (U) [Mass/Vol] TRACE Abnormal Negative Fi [facility] Comment on above: Performed By: #### 1 [id number] #### [facility] [address] [place] [address] Specific gravity (U) [Rel density] >=1.030 Invalid Interpretation Code 1.005-1.030 [facility] Comment on above: Performed By: #### 1 [id number] #### [facility] [address] [place] [address] Type of Urine collection method Clean Catch Normal [facility] Comment on above: Performed By: #### 1 [id number] #### [facility] [address] [place] [address] Urobilinogen Qn (U) 0.2 {Lidya'U}/dL Normal 0.0-1.0 [facility] Comment on above: Performed By: #### 1 [id number] #### [facility] [address] [place] [address] WBC Auto Ql (U) Negative Normal Negative [facility] Comment on above: Performed By: #### 1 [id number] #### [facility] [address] [place] [address] WBC LM.HPF (Urine sed) [#/Area] 0-5 Normal 0-5 [facility] Comment on above: Performed By: #### 1 [id number] #### [facility] [address] [place] [address] URINALYSISOrdered By: Norma Walsh on 10-25-2022 Bacteria LM Ql (Urine sed) 1+ /HPF Invalid Interpretation Code Trace/HPF [facility] UA Auto SS Bilirubin Ql (U) Negative (10/25/22 10:16 AM) Normal Negative [facility] UA Auto SS Clarity (U) Clear (10/25/22 10:16 AM) Normal Clear [facility] UA Auto SS Color (U) Yellow (10/25/22 10:16 AM) Normal Yellow [facility] UA Auto SS Epithelial cells.squamous LM.HPF (Urine sed) [#/Area] 5-8 /HPF Normal 0-2/HPF [facility] UA Aut o SS Glucose Test strip (U) [Mass/Vol] 3+ *ABN* (10/25/22 10:16 AM) Invalid Interpretation Code Negative [facility] UA Auto SS Hemoglobin Ql (U) 3+ *ABN* (10/25/22 10:16 AM) Invalid Interpretation Code Negative [facility] UA Auto SS Ketones (U) [Mass/Vol] Negative (10/25/22 10:16 AM) Normal Negative [facility] UA Auto SS [place].plasma/[place] .RBC (Bld) [Mass ratio] 4-20 /HPF Normal 0-3/HPF [facility] UA Auto SS Mucus Ql (Urine sed) 1+ (10/25/22 10:16 AM) Normal [facility] UA Auto SS Nitrite Ql (U) Negative (10/25/22 10:16 AM) Normal Negative [facility] UA Auto SS pH (U) 5.5 *NA* (10/25/22 10:16 AM) Invalid Interpretation Code 5.0 - 9.0 [facility] UA Auto SS Protein (U) [Mass/Vol] Trace *ABN* (10/25/22 10:16 AM) Invalid Interpretation Code Negative [facility] UA Auto SS Specific gravity (U) [Rel density] >=1.030 *NA* (10/25/22 10:16 AM) Invalid Interpretation Code 1.005 - 1.030 [facility] UA Auto SS UA Spec Desc Clean Catch (10/25/22 10:16 AM) Normal [facility] UA Auto SS Urobilinogen Qn (U) 0.9192086 {Lidya'U}/dL Normal 0.0 - 1.0 EU/dL [facility] UA Auto SS WBC Auto Ql (U) Negative (10/25/22 10:16 AM) Normal Negative [facility] UA Auto SS WBC LM.HPF (Urine sed) [#/Area] 0-5 /HPF Normal 0-5/HPF [facility] UA Auto SS XR Chest Single Viewon 10-25 XR Chest Single View Exam Date/Time: 10/25/2022 10:47 EDT Reason for Exam: Chest pain Report IMPRESSION: NO RADIOGRAPHIC EVIDENCE OF ACUTE INTRATHORACIC PROCESS. EXAM: XR Chest Single View History: Chest pain. Left arm pain. Technique: Portable AP view of the chest. Comparison: Portable chest radiograph 03/04/2022 Findings: The cardiomediastinal silhouette is within normal limits. No pneumothorax, pleural effusion, or consolidation. Bones of the thorax appear intact. Ordering Provider: Joseph Kent FINAL REPORT Dictated: 10/25/2022 11:33 am Ranjan Baptiste DO Signed (Electronic Signature): 10/25/2022 11:33 am Signed by: Ranjan Baptiste DO Transcribed by: FLORENTINO Technologist: DONNA, Technical Comments Radiation Dose: Kar in mGy = na DAP = na Normal [facility] eGFRon 10-25-2022 GFR/1.73 sq M.predicted among non-blacks MDRD (S/P/Bld) [Vol rate/Area] 73 mL/min/1.73 m2 Normal >=59 [facility] Comment on above: Order Comment: Order added by Discern Expert. Result Comment: Labour Market Economist jose kidney disease could be indicated at eGFR's of less than 60 mL/min/1.73m2. Kidney failure is indicated at less than 15 mL/min/1.73m2. Performed By: #### 2 [id number], [id number], [id number], [id number] #### [facility] [address] [place] [address] GFR/1.73 sq M.predicted among non-blacks MDRD (S/P/Bld) [Vol rate/Area] 73 mL/min/1.73 m2 Normal >=59 [facility] Comment on above: Order Comment: Order added by Discern Expert. Result Comment: Labour Market Economist jose kidney disease could be indicated at eGFR's of less than 60 mL/min/1.73m2. Kidney failure is indicated at less than 15 mL/min/1.73m2. Performed By: #### 2 [id number], [id number], [id number], [id number], [id number], [id number], [id number], [id number] ####[facility] [address] [place] [address] Consent for Treatmenton 09-14 Consent for Treatment [id number] .[id number]:127 Normal [facility] Physician Referralon 023 Physician Referral [id number] .[id number]:127 Normal [facility] Discharge Instructionson Discharge Instructions [id number] 0CD:127 Normal [facility] Consent for Treatmenton 08-14 Consent for Treatment [id number] .[id number]:127 Normal [facility] ED Clinical Summaryon 2022 ED Clinical Summary [place] [id number] ED Clinical Summary Person Information Name: TISH VARGAS [facility] Age: 41 Years : 1980 Sex: Female Language: Martiniquais PCP: YANET CHAIREZ CNP Marital Status: Phone: [phone] Visit Id: Visit Reason: Vaginal pain; Abscess - simple; ABSCESS Speciality: Acuity: 4 Enc Type: Emergency Med Service: Emergency Arrival: 08/24/2022 19:18:12 Discharge: 08/24/2022 21:32:12 LOS: 000 02:14 Checkin: 08/24/2022 19:18:12 Checkout: 08/24/2022 21:32:12 Dispo Type: Home (Routine DC) EVENTS: Event Name Event Status Request Date/Time Start Date/Time Complete Date/Time Arrive Complete 08/24/2022 19:18:12 08/24/2022 19:18:12 08/24/2022 19:18:12 Document Home Meds Request 08/24/2022 19:18:12 Triage Complete 08/24/2022 19:18:12 08/24/2022 19:24:32 08/24/2022 19:24:32 Isolation Screening Request 08/24/2022 19:24:33 Registration Complete 08/24/2022 19:31:33 08/24/2022 19:31:33 08/24/2022 19:31:33 Reg Complete Request 08/24/2022 19:31:33 Reg Bed Request Complete 08/24/2022 19:31:33 08/24/2022 19:31:33 08/24/2022 19:31:33 Bed Assign Complete 08/24/2022 19:41:02 08/24/2022 19:41:02 08/24/2022 19:41:02 Dr Exam Complete 08/24/2022 19:41:02 08/24/2022 19:42:55 08/24/2022 19:42:55 RN Exam Complete 08/24/2022 19:41:02 08/24/2022 20:14:31 08/24/2022 20:14:31 Registration Start 08/24/2022 19:42:55 08/24/2022 20:33:03 Meds Admin Complete 08/24/2022 19:55:43 08/24/2022 20:17:18 Dr Exam Complete 08/24/2022 19:58:19 08/24/2022 19:58:19 08/24/2022 19:58:19 Meds Admin Complete 08/24/2022 20:59:07 08/24/2022 21:22:44 Discharge Complete 08/24/2022 21:00:42 08/24/2022 21:32:25 08/24/2022 21:32:25 Transfer Complete 08/24/2022 21:32:25 08/24/2022 21:32:25 08/24/2022 21:32:25 [address] [address] [facility] [id number] PHYS DOC NOTES: MEDICAL INFORMATION: Prescriptions Given: New Medications [id number], [address] [place] [id number], [phone] clindamycin (clindamycin 150 mg Cap) 3 Capsules By Mouth every 8 hours for 7 Days. Refills: 0. Medications to Continue with No Changes Other Medications acetaminophen-oxycodo ne (Percocet 325 mg-5 mg Tab) 1 Tablets By Mouth every 6 hours as needed as needed for pain. Refills: 0. albuterol (albuterol HFA 90 mcg/inh MDI) 2 Puffs Inhalation 4 times a day as needed for wheezing. Refills: 0. alprazolam (Xanax 1 mg Tab) 1 Tablets By Mouth 2 times a day as needed for anxiety. aspirin (aspirin 81 mg Chew Tab) 1 Tablets Chewed every day. atorvastatin (atorvastatin 80 mg Tab) 1 Tablets By Mouth every day. Refills: 0. clopidogrel (Plavix 75 mg Tab) 1 Tablets By Mouth every day. empagliflozin (Jardiance 25 mg oral tablet) 1 Tablets By Mouth once a day (in the morning). gabapentin (gabapentin 300 mg Cap) 1 Capsules By Mouth 3 times a day. insulin glargine (Lantus Solostar Pen 100 units/mL subcutaneous solution) isosorbide mononitrate (isosorbide mononitrate 30 mg ER Tab) 1 Tablets By Mouth once a day (in the morning). Refills: 0. losartan (losartan 25 mg Tab) 1 Tablets By Mouth at bedtime. metformin (MetFORMIN (Eqv-Glucophage XR) 500 mg oral tablet, extended release) 2 Tablets By Mouth 2 times a day. metoprolol (Metoprolol tartrate 25 mg Tab) 1 Tablets By Mouth 2 times a day. naproxen (Naprosyn 500 mg Tab) 1 Tablets By Mouth 2 times a day as needed for pain. Refills: 0. nitroglycerin (nitroglycerin 0.4% rectal ointment) Rectal q12hr. Refills: 0. ondansetron (Zofran 4 mg Tab) 1 Tablets By Mouth every 8 hours as needed Nausea/Vomiting. Refills: 0. ondansetron (Zofran 4 mg Tab) 1 Tablets By Mouth every 8 hours as needed Nausea/Vomiting. Refills: 0. ranolazine (Ranexa 500 mg Tab-ER) 1 Tablets By Mouth 2 times a day. Refills: 1. semaglutide (Ozempic) venlafaxine (Effexor XR 150 mg Cap-ER) 1 Capsules By Mouth every day. along with 75 mg cap. venlafaxine (Effexor XR 75 mg Cap-ER) 1 Capsules By Mouth every day. PATIENT EDUCATION INFORMATION: Instructions: Skin Abscess Follow up: With: Address: When: YANET HOPKINSHARSHA [address] [place], [place] [phone] Business (1) In 3 days DIAGNOSIS: Abscess Normal [facility] ED Note-Physicianon 08-25-19 ED Note-Physician Basic Information Time Seen: Kevin Nur DOMichael 08/24/2022 19:42 Chief Complaint abscess to groin area today. denies drainage to area. denies body aches or fever. History of Present Illness HPI: Patient is a 41-year-old female past medical history of anxiety, depression, diabetes, KS, hypertension, PCOS who presents the ED for suspected abscess. Patient states that she first noticed yesterday there was a very small bump at the size of a pea on her left groin. Today it is gotten larger and is much more painful. She states that this is similar to previous abscesses she has had in the past and that she gets these once or twice a year that required drainage. She has had no drainage to the area. She denies any fevers or chills. She has not taken anything bjxj-auw-ypxqlbn yet for this today. ROS: Pertinent review of systems conducted and is negative except as noted above. Physical exam: General: nontoxic appearing and in no distress Neuro: awake and alert Neck: supple, trachea midline Card: Heart regular rate and rhythm no murmur Resp: Lungs clear to auscultation no wheeze or rhonchi Skin: Area in the left groin of slight erythema and warmth with an area of induration and central fluctuance approximately 1 cm in diameter. Physical Exam Vitals & Measurements T: 36.6 ?C(Oral) HR: 115(Peripheral) RR: 20 BP: 110/74 SpO2: 97% HT: 162 cm WT: 119.9 kg BMI: 45.69 Procedure Incision and drainage Correct patient:Confirmed Correct procedure: Confirmed Correct side: Confirmed Correct site: Confirmed Consent by: Patient Consent type: Verbal Pre-op diagnosis:Abscess Post-op diagnosis: Abscess Indication: Abscess Pre-procedure exam: Circulation, motor, and sensory intact Local numbin cc 1% lidocaine infiltrated subcutaneously Description (rpt) Location: left groin_ Preparation: betadine Incision: length 0.5 cm, #11 scalpel Technique: loculations decompressed Drainage:moderatepuru lent Irrigation: copeous saline Wound: left open Post procedure exam: Circulation, motor, and sensory intact Patient tolerated: well Complications: None Follow-up: PCP within 2 days Antibiotic: Bactrim Home care instructions: Performed by (rpt): YEIMY Chaudhary Medical Decision Making MEDICAL DECISION MAKING Number and Complexity of Problems Differential Diagnosis: [] [facility] Data External documents reviewed: N/A My EKG interpretation: Noted in chart if applicable My CT interpretation: N/A My X-ray interpretation: Noted in chart if applicable My Ultrasound interpretation: N/A Decision rules/scores evaluated: N/A Discussed with: N/A Treatment and Disposition ED Course: Patient has a small abscess of her left groin. Abscess is incised and drained as above. Patient was placed on a course of clindamycin and will closely follow-up with her primary care physician. Shared decision making: As above Code status: N/A Assessment/Plan Abscess (L02.91: Cutaneous abscess, unspecified) Orders: clindamycin, 450 mg = 3 cap(s), Cap, Oral, Once, Stop date 08/24/22 20:58:00 EDT, STAT, Start date 08/24/22 20:58:00 EDT, 08/24/22 20:58:00 EDT clindamycin, 450 mg = 3 cap(s), Oral, q8hr, X 7 day(s), # 63 cap(s), Refills(s) 0, Pharmacy: [id number], 162, cm, 08/24/22 19:24:00 EDT, Height/Length Dosing, 119.9, kg, 08/24/22 19:24:00 EDT, Weight Dosing ketorolac, 30 mg = 1 mL, Injection, IntraMuscular, Once, Stop date 08/24/22 19:54:00 EDT, STAT, Start date 08/24/22 19:54:00 EDT, 08/24/22 19:54:00 EDT morphine, 4 mg = 2 mL, Injection, IntraMuscular, Once, Stop date 08/24/22 19:54:00 EDT, STAT, Start date 08/24/22 19:54:00 EDT, 08/24/22 19:54:00 EDT Medications Administered Given ketorolac 30 mg/mL Inj 1 mL, 30 mg, IntraMuscular morphine 2 mg/mL Inj, 4 mg, IntraMuscular Disposition Plan Discharge Prescription List Prescriptions clindamycin 150 mg Cap, 450 mg= 3 cap(s), Oral, q8hr Follow-up With When Contact Information YANET CHAIREZ In 3 days [address] [place] [phone] Business (1) Additional Instructions: Patient Education Skin Abscess Problem List/Past Medical History Ongoing Abnormal uterine bleeding Anxiety Coronary artery disease Depression Diabetes Diabetic neuropathy Fatty liver GERD (gastroesophageal reflux disease) Hemorrhoids History of KS (myocardial infarction) HTN (hypertension) Hyperlipidemia Hypertension Insomnia Left ovarian cyst Narcotic abuse TRUONG on CPAP PCOS (polycystic ovarian syndrome) Presence of stent in coronary artery Smoker Historical CAD - Coronary artery disease DM type 2, goal HbA1c < 7% Myocardial infarction Nicotine abuse PCOS - Polycystic ovarian syndrome renal calculi Smoker 15-SEP-2013 12:37:00<$> Uterine fibroid Procedure/Surgical History PCI (08/20/2018), Abdominal hysterectomy (2019), Appendectomy (2018), Bilateral salpingo-oophorectomy , x2, Card (more content not included)... Normal [facility] Comment on above: Result Comment: Elec tronically Signed By: Kevin Nur DO\.br\Date and Time Signed: 08/24/22 21:01 EDT ED Patient Education Noteon 08-24-2022 ED Patient Education Note Infectious Disease Skin Abscess A skin abscess is an infected area on or under your skin that contains a collection of pus and other material. An abscess may also be called a furuncle, carbuncle, or boil. An abscess can occur in or on almost any part of your body. Some abscesses break open (rupture) on their own. Most continue to get worse unless they are treated. The infection can spread deeper into the body and eventually into your blood, which can make you feel ill. Treatment usually involves draining the abscess. What are the causes? An abscess occurs when germs, like bacteria, pass through your skin and cause an infection. This may be caused by: ? A scrape or cut on your skin. ? A puncture wound through your skin, including a needle injection or insect bite. ? Blocked oil or sweat glands. ? Blocked and infected hair follicles. ? A cyst that forms beneath your skin (sebaceous cyst) and becomes infected. What increases the risk? This condition is more likely to develop in people who: ? Have a weak body defense system (immune system). ? Have diabetes. ? Have dry and irritated skin. ? Get frequent injections or use illegal IV drugs. ? Have a foreign body in a wound, such as a splinter. ? Have problems with their lymph system or veins. What are the signs or symptoms? Symptoms of this condition include: ? A painful, firm bump under the skin. ? A bump with pus at the top. This may break through the skin and drain. Other symptoms include: ? Redness surrounding the abscess site. ? Warmth. ? Swelling of the lymph nodes (glands) near the abscess. ? Tenderness. ? A sore on the skin. How is this diagnosed? This condition may be diagnosed based on: ? A physical exam. ? Your medical history. ? A sample of pus. This may be used to find out what is causing the infection. ? Blood tests. ? Imaging tests, such as an ultrasound, CT scan, or MRI. How is this treated? A small abscess that drains on its own may not need treatment. Treatment for larger abscesses may include: ? Moist heat or heat pack applied to the area several times a day. ? A procedure to drain the abscess (incision and drainage). ? Antibiotic medicines. For a severe abscess, you may first get antibiotics through an IV and then change to antibiotics by mouth. Follow these instructions at home: Medicines ? Take szey-lyp-caddjvf and prescription medicines only as told by your health care provider. ? If you were prescribed an antibiotic medicine, take it as told by your health care provider. Do not stop taking the antibiotic even if you start to feel better. Abscess care ? If you have an abscess that has not drained, apply heat to the affected area. Use the heat source that your health care provider recommends, such as a moist heat pack or a heating pad. ? Place a towel between your skin and the heat source. ? Leave the heat on for 20?30 minutes. ? Remove the heat if your skin turns bright red. This is especially important if you are unable to feel pain, heat, or cold. You may have a greater risk of getting burned. ? Follow instructions from your health care provider about how to take care of your abscess. Make sure you: ? Cover the abscess with a bandage (dressing). ? Change your dressing or gauze as told by your health care provider. ? Wash your hands with soap and water before you change the dressing or gauze. If soap and water are not available, use hand compliance investigator. ? Check your abscess every day for signs of a worsening infection. Check for: ? More redness, swelling, or pain. ? More fluid or blood. ? Warmth. ? More pus or a bad smell. General instructions ? To avoid spreading the infection: ? Do not share personal care items, towels, or hot tubs with others. ? Avoid making skin contact with other people. ? Keep all follow-up visits as told by your health care provider. This is important. Contact a health care provider if you have: ? More redness, swelling, or pain around your abscess. ? More fluid or blood coming from your abscess. ? Warm skin around your abscess. ? More pus or a bad smell coming from your abscess. ? Muscle aches. ? Chills or a general ill feeling. Get help right away if you: ? Have severe pain. ? See red streaks on your skin spreading away from the abscess. ? See redness that spreads quickly. ? Have a fever or chills. Summary ? A skin abscess is an infected area on or under your skin that contains a collection of pus and other material. ? A small abscess that drains on its own may not need treatment. ? Treatment for larger abscesses may include having a procedure to drain the abscess and taking an antibiotic. This information is not intended to replace advice given to you by your health care provider. Make sure you discuss any questions you have with your health care pro (more content not included)... Normal [facility] ED Patient Summaryon 023 ED Patient Summary [place] [id number] Patient Discharge Instructions Person Information Name: TISH VARGAS Age: 41 Years Arrival Date: 08/24/2022 19:18:12 Discharge Diagnosis: Abscess Primary Care Physician: YANET CHAIREZ CNP Provider Information Primary Provider: Kevin Nur DO Advanced Material Analyst:Manuel Chaudhary PA-C The exam and treatment you received in the Emergency Department were for an urgent problem and are not intended as complete care. It is important that you follow up with a doctor, nurse practitioner, or physician?s credentialing assistant for ongoing care. If your symptoms become worse or you do not improve as expected and you are unable to reach your usual health care provider, you should return to the Emergency Department. We are available 24 hours a day. TISH VARGAS has been given the following list of patient education materials, prescriptions and follow-up instructions: Follow-up Instructions: With: Address: When: YANET CHAIREZ [address], [place] [phone] Business (1) In 3 days In the event that this physician does not participate in your insurance network, please consult with your insurance company to find a nearby participating provider. Patient Education Materials: Skin Abscess A MESSAGE TO ALL PATIENTS REGARDING OPIOIDS PRESCRIPTION OPIOIDS: WHAT YOU NEED TO KNOW Prescription opioids can be used to help relieve wkfppcya-sy-knwopm pain and are often prescribed following a surgery or injury, or for certain health conditions. These medications can be an important part of the treatment but also come with serious risks. It is important to work with your healthcare provider to make sure you are getting the safest, most effective care. WHAT ARE THE RISKS AND SIDE EFFECTS OF OPIOID USE? Prescription opioids carry serious risks of addiction and overdose, especially with prolonged use. An opioid overdose, often marked by slowed breathing, can cause sudden . The use of prescription opioids can have a number of side effects as well, even when taken as directed: ? Tolerance?meaning you might need to take more of the medication for the same pain relief ? Physical dependence?meaning you have symptoms of withdrawal when a medication is stopped ? Increased sensitivity to pain ? Constipation ? Nausea, vomiting, and dry mouth ? Sleepiness and dizziness ? Confusion ? Depression ? Low levels of testosterone that can result in lower sex drive, energy, and strength ? Itching and sweating RISKS ARE GREATER WITH: ? History of drug misuse, substance use disorder, or overdose ? Mental health conditions (such as depression or anxiety) ? Sleep apnea ? Older age (65 years and older) ? Avoid alcohol while taking prescription opioids. Also, unless specifically advised by your health care provider, medications to avoid include: ? Benzodiazepines (such as Xanax or Valium) ? Muscle relaxants (such as Soma or Flexeril) ? Hypnotics (such as Ambien or Lunesta) ? Other prescription opioids KNOW YOUR OPTIONS Talk to your health care provider about ways to manage your pain that don?t involve prescription opioids. Some of these options may actually work better and have fewer risks and side effects. Options may include: ? Pain relievers such as acetaminophen, ibuprofen, and naproxen ? Some medication that are also used for depression or seizures ? Physical therapy and exercise ? Cognitive behavioral therapy, a psychological, goal-directed approach, in which patients learn how to modify physical, behavioral, and emotional triggers of pain and stress. IF YOU ARE PRESCRIBED OPIOIDS FOR PAIN: ? Never take opioids in greater amounts or more often than prescribed. ? Follow up with your primary health care provider. o Work together to create a plan on how to manage your pain. o Talk about ways to help manage your pain that don?t involve prescription opioids. o Talk about any and all concerns and side effects. ? Help prevent misuse and abuse o Never sell or share prescription opioids. o Never use another person?s prescription opioids. ? Store prescription opioids in a secure place and out of reach of others (this may include visitors, children, friends, and family). ? Safely dispose of unused prescription opioids: Find your community drug take-back program or your pharmacy mail-back program, or flush them down the toilet, following guidance from the Food and Drug Administration (www.fda.gov/Drugs/Re sourcesForYou). ? Visit www.cdc.gov/drugoverd ose to learn about the risks of opioids abuse and overdose. ? If you believe you may be struggling with addiction, tell your health child care teacher and ask for guidance or call [employer] National Helpline at 4-071-621-QIGE. v Source: [place] Department of (more content not included)... Normal [facility] CHEMISTRYOrdered By: SYSTEM SYSTEM on 06-30-2022 Albumin [Mass/Vol] 4.3 g/dL Normal 3.3 - 5.0 gm/dL [facility] Remisol Albumin/Globulin [Mass ratio] 1.2 {ratio} Normal 1.1 - 2.2 [facility] Remisol ALP [Catalytic activity/Vol] 139 [iU]/d High 21 - 98 Int._Unit/L [facility] Remisol ALT No additional P-5'-P [Catalytic activity/Vol] 18 [iU]/d Normal 6 - 46 Int._Unit/L [facility] Remisol Anion gap [Moles/Vol] 14 mmol/L Normal 6 - 16 mEq/L F [facility] Remisol AST [Catalytic activity/Vol] 26 [iU]/d Normal 5 - 43 Int._Unit/L [facility] Remisol Bilirubin [Mass/Vol] 0.8 mg/dL Normal 0.0 - 1 .1 mg/dL [facility] Remisol Calcium [Mass/Vol] 10.2 mg/dL Normal 8.9 - 11. 1 mg/dL [facility] Remisol Chloride [Moles/Vol] 102 mmol/L Normal 101 - 1 11 mmol/L [facility] Remisol Cholesterol [Mass/Vol] 207 mg/dL High 120 - 200 mg/dL [facility] Rem[facility] Cholesterol in HDL [Mass/Vol] 48 mg/dL Invalid Interpretation Code [facility] Remisol Cholesterol in LDL [Mass/Vol] 136 mg/dL High <=129mg/dL [facility] Remisol Cholesterol in VLDL [Mass/Vol] 40 mg/dL Normal 7 - 40 mg/dL [facility] Rem[facility] CO2 [Moles/Vol] 27 mmol/L Normal 21 - 31 mmol/L [facility] Remisol Creatinine [Mass/Vol] 0.9 mg/dL Normal 0.5 - 1.3 mg/dL [facility] Remisol GFR/1.73 sq M.predicted among blacks MDRD (S/P/Bld) [Vol rate/Area] mL/min/1.73 m2 Normal >=59mL/min/1 .73 m2 [facility] Chem S GFR/1.73 sq M.predicted among non-blacks MDRD (S/P/Bld) [Vol rate/Area] mL/min/1.73 m2 Normal >=59mL/min/1 .73 m2 [facility] Chem S Globulin (S) [Mass/Vol] 3.6 g/dL Normal 1.4 - 4.0 gm/dL [facility] Remisol Glucose [Mass/Vol] 132 mg/dL Normal 55 - 199 mg/dL [facility] Remisol Potassium [Moles/Vol] 4.6 mmol/L Normal 3.5 - 5.3 mmol/L [facility] Remisol Protein [Mass/Vol] 7.9 g/dL High 6.0 - 7.8 gm/dL [facility] Remisol Sodium [Moles/Vol] 138 mmol/L Normal 135 - 145 mmol/L [facility] Rem[facility] Triglyceride [Mass/Vol] 198 mg/dL High <=149mg/dL [facility] Rem[facility] Urea nitrogen [Mass/Vol] 16 mg/dL Normal 5 - 21 mg/dL [facility] Remisol Urea nitrogen/Creatinine [Mass ratio] 18 mg/mg Normal 10 - 20 [facility] Remisol CHEMISTRYOrdered By: Maira Baig se on 06-30-2022 HbA1c (Bld) [Mass fraction] 7.2 % High <=5.9% [facility] CHEMISTRYOrdered By: Ozzy hong on 06-30-2022 Albumin DL <= 20 mg/L (U) [Mass/Vol] 8.0 microgram/mL Normal 0.0 - 19.0 mcg/mL [facility] Remisol HEMATOLOGYOrdered By: SYSTEM SYSTEM on 06-30-2022 Basophils/100 WBC (Bld) 0.7 % Normal 0.0 - 2.0 % [facility] Basophils/Leukocytes Auto (Bld) [Pure # fraction] 0.1 E9/L Normal 0.0 - 0.2 E9/L [facility] Eosinophils/100 WBC (Bld) 2.6 % Normal 0.0 - 8.0 % [facility] Eosinophils/Leukocytes Auto (Bld) [Pure # fraction] 0.2 E9/L Normal 0.0 - 0.5 E9/L [facility] Lymphocytes/100 WBC (Bld) 30.6 % Normal 14.0 - 50.0 % [facility] Lymphocytes/Leukocytes Auto (Bld) [Pure # fraction] 2.7 E9/L Normal 1.0 - 4.0 E9/L [facility] Monocytes/100 WBC (Bld) 5.3 % Normal 4.0 - 14.0 % [facility] Monocytes/Leukocytes Auto (Bld) [Pure # fraction] 0.5 E9/L Normal 0.2 - 1.0 E9/L [facility] Neutrophils/100 WBC (Bld) 60.8 % Normal 36.0 - 75.0 % [facility] Neutrophils/Leukocytes Auto (Bld) [Pure # fraction] 5.5 E9/L Normal 2.0 - 7.5 E9/L [facility] HEMATOLOGYOrdered By: Norma Walsh on 06-30-2022 Erythrocyte distribution width (RBC) [Ratio] 13.5 % Normal 10.9 - 14.2 % [facility] Hematocrit (Bld) [Volume fraction] 47.8 % High 34.0 - 46.0 % [facility] Hemoglobin (Bld) [Mass/Vol] 15.5 g/dL Normal 12.0 - 16.0 gm/dL [facility] MCH (RBC) [Entitic mass] 29.3 pg Normal 27.0 - 34.0 pg [facility] MCHC (RBC) [Mass/Vol] 32.4 g/dL Normal 31.4 - 36.0 gm/dL [facility] MCV (RBC) [Entitic vol] 90.4 fL Normal 80.0 - 100.0 fL [facility] Platelet mean volume (Bld) [Entitic vol] 8.2 fL Normal 6.4 - 10.8 fL [facility] Platelets (Bld) [#/Vol] 218.0 E9/L Normal 150.0 - 500.0 E9/L [facility] RBC (Bld) [#/Vol] 5.3 E12/L Normal 4.3 - 5.9 E12/L [facility] WBC corrected for nucl RBC Auto (Bld) [#/Vol] 9.0 E9/L Normal 4.0 - 11.0 E9/L [facility] URINALYSISOrdered By: Maira carmona on 06-30-2022 Bacteria LM Ql (Urine sed) Trace /HPF Normal Trace/HPF [facility] UA Auto SS Bilirubin Ql (U) Negative (06/30/22 12:43 PM) Normal Negative [facility] UA Auto SS Clarity (U) Clear (06/30/22 12:43 PM) Normal Clear [facility] UA Auto SS Color (U) Yellow (06/30/22 12:43 PM) Normal Yellow [facility] UA Auto SS Crystals LM Ql (Urine sed) Present (06/30/22 12:43 PM) Normal [facility] UA Auto SS Epithelial cells.squamous LM.HPF (Urine sed) [#/Area] 0-2 /HPF Normal 0-2/HPF [facility] Aut o SS Glucose Test strip (U) [Mass/Vol] 3+ *ABN* (06/30/22 12:43 PM) Invalid Interpretation Code Negative [facility] UA Auto SS Hemoglobin Ql (U) Negative (06/30/22 12:43 PM) Normal Negative [facility] UA Auto SS Ketones (U) [Mass/Vol] Negative (06/30/22 12:43 PM) Normal Negative [facility] UA Auto SS [place].plasma/[place] .RBC (Bld) [Mass ratio] 0-3 /HPF Normal 0-3/HPF [facility] UA Auto SS Nitrite Ql (U) Negative (06/30/22 12:43 PM) Normal Negative [facility] UA Auto SS pH (U) 5.5 *NA* (06/30/22 12:43 PM) Invalid Interpretation Code 5.0 - 9.0 [facility] Auto SS Protein (U) [Mass/Vol] Negative (06/30/22 12:43 PM) Normal Negative [facility] UA Auto SS Specific gravity (U) [Rel density] 1.020 *NA* (06/30/22 12:43 PM) Invalid Interpretation Code 1.005 - 1.030 [facility]A Auto SS UA Spec Desc Clean Catch (06/30/22 12:43 PM) Normal [facility] UA Auto SS Urobilinogen Qn (U) [id number] {Lidya'U}/dL Normal 0.0 - 1.0 EU/dL [facility] UA Auto SS WBC Auto Ql (U) Negative (06/30/22 12:43 PM) Normal Negative [facility] UA Auto SS WBC LM.HPF (Urine sed) [#/Area] 0-5 /HPF Normal 0-5/HPF [facility] UA Auto SS Yeast LM Ql (Urine sed) 1+ (06/30/22 12:43 PM) Normal [facility] UA Auto SS CHEMISTRYOrdered By: Winnie Ordaz on 03-14-2022 HbA1c (Bld) [Mass fraction] 7.6 % High <=5.9% [facility] Chem[facility]SS CHEMISTRYOrdered By: SYSTEM SYSTEM on 03-04-2022 Anion gap [Moles/Vol] 15 mmol/L Normal 6 - 16 mEq/L [facility] Remisol Calcium [Mass/Vol] 9.6 mg/dL Normal 8.9 - 11. 1 mg/dL [facility] Remisol Chloride [Moles/Vol] 99 mmol/L Low 101 - 1 11 mmol/L [facility] CO2 [Moles/Vol] 26 mmol/L Normal 21 - 31 mmol/L [facility] Creatinine [Mass/Vol] 1.1 mg/dL Normal 0.5 - 1.3 mg/dL [facility] Remisol GFR/1.73 sq M.predicted among blacks MDRD (S/P/Bld) [Vol rate/Area] mL/min/1.73 m2 Normal >=59mL/min/1 .73 m2 [facility] Chem S GFR/1.73 sq M.predicted among non-blacks MDRD (S/P/Bld) [Vol rate/Area] 55 mL/min/1.73 m2 Low >=59mL/min/1 .73 m2 [facility] Chem S Glucose [Mass/Vol] 242 mg/dL High 55 - 199 mg/dL [facility] Remisol Potassium [Moles/Vol] 3.8 mmol/L Normal 3.5 - 5.3 mmol/L [facility] Remisol Sodium [Moles/Vol] 136 mmol/L Normal 135 - 145 mmol/L [facility] Remisol Troponin I.cardiac [Mass/Vol] 4.30 pg/mL Low 10.10 - 27.10 pg/mL [facility] Remisol Urea nitrogen [Mass/Vol] 13 mg/dL Normal 5 - 21 mg/dL [facility] Remisol Urea nitrogen/Creatinine [Mass ratio] 12 mg/mg Normal 10 - 20 [facility] Remisol CHEMISTRYOrdered By: Lab ROP User on 03-04-2022 Glucose [Mass/Vol] 238 mg/dL High 55 - 99 mg/dL [facility] POC Subsection Comment on above: Result Comment: Genie gurrola RN/ POC Device SN [id number] Invalid Interpretation Code [facility] POC Subsection POC User ID [id number] Invalid Interpretation Code [facility] POC Subsection POC Username TIAN MONTANEZ Invalid Interpretation Code [facility] POC Subsection COAGULATIONOrdered By: Ozzy Castillo on 03-04-2022 aPTT Coag (PPP) [Time] 28.9 s Normal 25.1 - 36.5 second(s) [facility] Auto Coag INR Coag (PPP) [Relative time] 0.9 {INR} Invalid Interpretation Code [facility] Auto Coag PT Coag (PPP) [Time] 9.7 s Normal 9.4 - 1 2.5 second(s) [facility] Auto Coag HEMATOLOGYOrdered By: SYSTEM SYSTEM on 03-04-2022 Basophils/100 WBC (Bld) 1.0 % Normal 0.0 - 2.0 % [facility] Basophils/Leukocytes Auto (Bld) [Pure # fraction] 0.1 E9/L Normal 0.0 - 0.2 E9/L [facility] Eosinophils/100 WBC (Bld) 1.6 % Normal 0.0 - 8.0 % [facility] Eosinophils/Leukocytes Auto (Bld) [Pure # fraction] 0.1 E9/L Normal 0.0 - 0.5 E9/L [facility] Lymphocytes/100 WBC (Bld) 28.1 % Normal 14.0 - 50.0 % [facility] Lymphocytes/Leukocytes Auto (Bld) [Pure # fraction] 2.0 E9/L Normal 1.0 - 4.0 E9/L [facility] Monocytes/100 WBC (Bld) 6.4 % Normal 4.0 - 14.0 % [facility] Monocytes/Leukocytes Auto (Bld) [Pure # fraction] 0.5 E9/L Normal 0.2 - 1.0 E9/L [facility] Neutrophils/100 WBC (Bld) 62.9 % Normal 36.0 - 75.0 % [facility] Neutrophils/Leukocytes Auto (Bld) [Pure # fraction] 4.6 E9/L Normal 2.0 - 7.5 E9/L [facility] HEMATOLOGYOrdered By: Norma Walsh on 03-04-2022 Erythrocyte distribution width (RBC) [Ratio] 13.9 % Normal 10.9 - 14.2 % [facility] Hematocrit (Bld) [Volume fraction] 44.9 % Normal 34.0 - 46.0 % [facility] Hemoglobin (Bld) [Mass/Vol] 15.2 g/dL Normal 12.0 - 16.0 gm/dL [facility] MCH (RBC) [Entitic mass] 31.3 pg Normal 27.0 - 34.0 pg [facility] MCHC (RBC) [Mass/Vol] 33.7 g/dL Normal 31.4 - 36.0 gm/dL [facility] MCV (RBC) [Entitic vol] 92.7 fL Normal 80.0 - 100.0 fL [facility] Platelet mean volume (Bld) [Entitic vol] 8.7 fL Normal 6.4 - 10.8 fL [facility] Platelets (Bld) [#/Vol] 202.0 E9/L Normal 150.0 - 500.0 E9/L [facility] RBC (Bld) [#/Vol] 4.8 E12/L Normal 4.3 - 5.9 E12/L [facility] WBC corrected for nucl RBC Auto (Bld) [#/Vol] 7.3 E9/L Normal 4.0 - 11.0 E9/L [facility] CHEMISTRYOrdered By: SYSTEM SYSTEM on 12-27-2021 Albumin [Mass/Vol] 3.9 g/dL Normal 3.3 - 5.0 gm/dL [facility] Remisol Albumin/Globulin [Mass ratio] 1.3 {ratio} Normal 1.1 - 2.2 [facility] Remisol ALP [Catalytic activity/Vol] 108 [iU]/d High 21 - 98 Int._Unit/L [facility] Remisol ALT No additional P-5'-P [Catalytic activity/Vol] 11 [iU]/d Normal 6 - 46 Int._Unit/L [facility] Remisol Anion gap [Moles/Vol] 11 mmol/L Normal 6 - 16 mEq/L [facility] Rem[facility] AST [Catalytic activity/Vol] 18 [iU]/d Normal 5 - 43 Int._Unit/L [facility] Remisol Bilirubin [Mass/Vol] 0.6 mg/dL Normal 0.0 - 1 .1 mg/dL [facility] Rem[facility] Bilirubin.direct [Mass/Vol] mg/dL Normal 0.1 - 0.4 mg/dL [facility] Remisol Bilirubin.indirect [Mass or moles/Vol] Unable to Calculate mg/dL Invalid Interpretation Code 0.1 - 0.9 mg/dL [facility] Remisol Calcium [Mass/Vol] 9.6 mg/dL Normal 8.9 - 11. 1 mg/dL [facility]isol Chloride [Moles/Vol] 104 mmol/L Normal 101 - 1 11 mmol/L [facility] CO2 [Moles/Vol] 26 mmol/L Normal 21 - 31 mmol/L [facility] Rem[facility] Creatinine [Mass/Vol] 0.9 mg/dL Normal 0.5 - 1.3 mg/dL [facility] Remisol GFR/1.73 sq M.predicted among blacks MDRD (S/P/Bld) [Vol rate/Area] mL/min/1.73 m2 Normal >=59mL/min/1 .73 m2 [facility] Chem S GFR/1.73 sq M.predicted among non-blacks MDRD (S/P/Bld) [Vol rate/Area] mL/min/1.73 m2 Normal >=59mL/min/1 .73 m2 [facility] Chem S Globulin (S) [Mass/Vol] 2.9 g/dL Normal 1.4 - 4.0 gm/dL [facility] Remisol Glucose [Mass/Vol] 148 mg/dL Normal 55 - 199 mg/dL [facility] Remisol Potassium [Moles/Vol] 3.7 mmol/L Normal 3.5 - 5.3 mmol/L [facility] Protein [Mass/Vol] 6.8 g/dL Normal 6.0 - 7.8 gm/dL [facility] Sodium [Moles/Vol] 137 mmol/L Normal 135 - 145 mmol/L [facility] Rem[facility] Urea nitrogen [Mass/Vol] 22 mg/dL High 5 - 21 mg/dL [facility] Rem[facility] Urea nitrogen/Creatinine [Mass ratio] 24 mg/mg High 10 - 20 [facility] Remisol HEMATOLOGYOrdered By: SYSTEM SYSTEM on 12-27-2021 Basophils/100 WBC (Bld) 1.1 % Normal 0.0 - 2.0 % [facility] Basophils/Leukocytes Auto (Bld) [Pure # fraction] 0.1 E9/L Normal 0.0 - 0.2 E9/L [facility] Eosinophils/100 WBC (Bld) 1.9 % Normal 0.0 - 8.0 % [facility] Eosinophils/Leukocytes Auto (Bld) [Pure # fraction] 0.1 E9/L Normal 0.0 - 0.5 E9/L [facility] Lymphocytes/100 WBC (Bld) 25.6 % Normal 14.0 - 50.0 % [facility] Lymphocytes/Leukocytes Auto (Bld) [Pure # fraction] 1.8 E9/L Normal 1.0 - 4.0 E9/L [facility] Monocytes/100 WBC (Bld) 6.3 % Normal 4.0 - 14.0 % [facility] Monocytes/Leukocytes Auto (Bld) [Pure # fraction] 0.5 E9/L Normal 0.2 - 1.0 E9/L [facility] Neutrophils/100 WBC (Bld) 65.1 % Normal 36.0 - 75.0 % [facility] Neutrophils/Leukocytes Auto (Bld) [Pure # fraction] 4.7 E9/L Normal 2.0 - 7.5 E9/L [facility] HEMATOLOGYOrdered By: Asael Mccann on 12-27-2021 Erythrocyte distribution width (RBC) [Ratio] 14.1 % Normal 10.9 - 14.2 % [facility] Hematocrit (Bld) [Volume fraction] 43.8 % Normal 34.0 - 46.0 % [facility] Hemoglobin (Bld) [Mass/Vol] 14.6 g/dL Normal 12.0 - 16.0 gm/dL [facility] MCH (RBC) [Entitic mass] 30.9 pg Normal 27.0 - 34.0 pg [facility] MCHC (RBC) [Mass/Vol] 33.3 g/dL Normal 31.4 - 36.0 gm/dL [facility] MCV (RBC) [Entitic vol] 93.0 fL Normal 80.0 - 100.0 fL [facility] Platelet mean volume (Bld) [Entitic vol] 8.8 fL Normal 6.4 - 10.8 fL [facility] Platelets (Bld) [#/Vol] 203.0 E9/L Normal 150.0 - 500.0 E9/L [facility] RBC (Bld) [#/Vol] 4.7 E12/L Normal 4.3 - 5.9 E12/L [facility] WBC corrected for nucl RBC Auto (Bld) [#/Vol] 7.2 E9/L Normal 4.0 - 11.0 E9/L [facility] URINALYSISOrdered By: Asael Mccann on 12-27-2021 Bilirubin Ql (U) Negative (12/27/21 2:35 AM) Normal Negative [facility] UA Auto SS Clarity (U) Clear (12/27/21 2:35 AM) Normal Clear [facility] UA Auto SS Color (U) Yellow (12/27/21 2:35 AM) Normal Yellow [facility] UA Auto SS Epithelial cells.squamous LM.HPF (Urine sed) [#/Area] 0-2 /HPF Normal 0-2/HPF [facility] UA Aut o SS Glucose Test strip (U) [Mass/Vol] 3+ *ABN* (12/27/21 2:35 AM) Invalid Interpretation Code Negative [facility] UA Auto SS Hemoglobin Ql (U) Negative (12/27/21 2:35 AM) Normal Negative [facility] UA Auto SS Ketones (U) [Mass/Vol] Negative (12/27/21 2:35 AM) Normal Negative [facility] UA Auto SS [place].plasma/[place] .RBC (Bld) [Mass ratio] 0-3 /HPF Normal 0-3/HPF [facility] UA Auto SS Nitrite Ql (U) Negative (12/27/21 2:35 AM) Normal Negative [facility] UA Auto SS pH (U) 5.5 *NA* (12/27/21 2:35 AM) Invalid Interpretation Code 5.0 - 9.0 [facility] UA Auto SS Protein (U) [Mass/Vol] Negative (12/27/21 2:35 AM) Normal Negative [facility] UA Auto SS Specific gravity (U) [Rel density] >=1.030 *NA* (12/27/21 2:35 AM) Invalid Interpretation Code 1.005 - 1.030 [facility] UA Auto SS UA Spec Desc Clean Catch (12/27/21 2:35 AM) Normal [facility] UA Auto SS Urobilinogen Qn (U) [id number] {Lidya'U}/dL Normal 0.0 - 1.0 EU/dL [facility] UA Auto SS WBC Auto Ql (U) Negative (12/27/21 2:35 AM) Normal Negative [facility] UA Auto SS WBC LM.HPF (Urine sed) [#/Area] 0-5 /HPF Normal 0-5/HPF [facility] UA Auto SS CHEMISTRYOrdered By: Lab ROP User on 10-10-2021 Glucose [Mass/Vol] 114 mg/dL High 55 - 99 mg/dL [facility] POC Subsection Comment on above: Result Comment: Genie izabela RN/ POC Device SN [id number] Invalid Interpretation Code [facility] POC Subsection POC User ID [id number] Invalid Interpretation Code [facility] POC Subsection POC Username DALJIT GLORIA Invalid Interpretation Code [facility] POC Subsection Glucose [Mass/Vol] 131 mg/dL High 55 - 99 mg/dL [facility] POC Subsection Comment on above: Result Comment: Genie gurrola RN/ POC Device SN [id number] Invalid Interpretation Code [facility] POC Subsection POC User ID [id number] Invalid Interpretation Code [facility] POC Subsection POC Username DALJIT GLORIA Invalid Interpretation Code [facility] POC Subsection CHEMISTRYOrdered By: SYSTEM SYSTEM on 10-10-2021 Cholesterol [Mass/Vol] 138 mg/dL Normal 120 - 200 mg/dL [facility] Remisol Cholesterol in HDL [Mass/Vol] 28 mg/dL Invalid Interpretation Code [facility] Remisol Cholesterol in LDL [Mass/Vol] 71 mg/dL Normal <=129mg/dL [facility] Remisol Cholesterol in VLDL [Mass/Vol] 47 mg/dL High 7 - 40 mg/dL [facility] Remisol Triglyceride [Mass/Vol] 234 mg/dL High <=149mg/dL [facility] Remisol Troponin I.cardiac [Mass/Vol] 3.10 pg/mL Low 10.10 - 27.10 pg/mL [facility] Remisol CHEMISTRYOrdered By: Leigha lewis on 10-10-2021 HbA1c (Bld) [Mass fraction] 7.4 % High <=5.9% [facility] Chem[facility]SS CHEMISTRYOrdered By: SYSTEM SYSTEM on 10-09-2021 Troponin I.cardiac [Mass/Vol] 3.60 pg/mL Low 10.10 - 27.10 pg/mL [facility] Remisol Troponin I.cardiac [Mass/Vol] 3.40 pg/mL Low 10.10 - 27.10 pg/mL [facility] Remisol Albumin [Mass/Vol] 4.1 g/dL Normal 3.3 - 5.0 gm/dL [facility] Remisol Albumin/Globulin [Mass ratio] 1.3 {ratio} Normal 1.1 - 2.2 [facility] Remisol ALP [Catalytic activity/Vol] 115 [iU]/d High 21 - 98 Int._Unit/L [facility] Remisol ALT No additional P-5'-P [Catalytic activity/Vol] 17 [iU]/d Normal 6 - 46 Int._Unit/L [facility] Remisol Anion gap [Moles/Vol] 11 mmol/L Normal 6 - 16 mEq/L [facility] Remisol AST [Catalytic activity/Vol] 22 [iU]/d Normal 5 - 43 Int._Unit/L [facility] Remisol Bilirubin [Mass/Vol] 0.6 mg/dL Normal 0.0 - 1 .1 mg/dL [facility] Remisol Calcium [Mass/Vol] 9.6 mg/dL Normal 8.9 - 11. 1 mg/dL [facility] Remisol Chloride [Moles/Vol] 102 mmol/L Normal 101 - 1 11 mmol/L [facility] Rem[facility] CO2 [Moles/Vol] 27 mmol/L Normal 21 - 31 mmol/L [facility] Remisol Creatinine [Mass/Vol] 0.8 mg/dL Normal 0.5 - 1.3 mg/dL [facility] Remisol GFR/1.73 sq M.predicted among blacks MDRD (S/P/Bld) [Vol rate/Area] mL/min/1.73 m2 Normal >=59mL/min/1 .73 m2 [facility] Chem S GFR/1.73 sq M.predicted among non-blacks MDRD (S/P/Bld) [Vol rate/Area] mL/min/1.73 m2 Normal >=59mL/min/1 .73 m2 [facility] Chem S Globulin (S) [Mass/Vol] 3.1 g/dL Normal 1.4 - 4.0 gm/dL [facility] Remisol Glucose [Mass/Vol] 121 mg/dL Normal 55 - 199 mg/dL [facility] Remisol Magnesium [Mass/Vol] 1.7 mg/dL Normal 1.3 - 2 .4 mg/dL [facility] Remisol Potassium [Moles/Vol] 3.8 mmol/L Normal 3.5 - 5.3 mmol/L [facility] Remisol Protein [Mass/Vol] 7.2 g/dL Normal 6.0 - 7.8 gm/dL [facility] Remisol Sodium [Moles/Vol] 136 mmol/L Normal 135 - 145 mmol/L [facility] Remisol Urea nitrogen [Mass/Vol] 21 mg/dL Normal 5 - 21 mg/dL [facility] Remisol Urea nitrogen/Creatinine [Mass ratio] 26 mg/mg High 10 - 20 [facility] Remisol CHEMISTRYOrdered By: Lab ROP User on 10-09-2021 Glucose [Mass/Vol] 200 mg/dL High 55 - 99 mg/dL [facility] POC Subsection Comment on above: Result Comment: Genie gurrola RN/ POC Device SN [id number] Invalid Interpretation Code [facility] POC Subsection POC User ID [id number] Invalid Interpretation Code [facility] POC Subsection POC Username LÓPEZ AYERS Invalid Interpretation Code [facility] POC Subsection CHEMISTRYOrdered By: Pushpa thomas on 10-09-2021 Natriuretic peptide B (Bld) [Mass/Vol] pg/mL Low 5 - 80 pg/mL [facility] HemeMan[facility] COAGULATIONOrdered By: Maira Paulino on 10-09-2021 aPTT Coag (PPP) [Time] 28.4 s Normal 25.1 - 36.5 second(s) [facility] Auto Coag INR Coag (PPP) [Relative time] 0.9 {INR} Invalid Interpretation Code [facility] Auto Coag PT Coag (PPP) [Time] 10.9 s Normal 10.2 - 12.9 second(s) [facility] Auto Coag HEMATOLOGYOrdered By: SYSTEM SYSTEM on 10-09-2021 Basophils/100 WBC (Bld) 0.7 % Normal 0.0 - 2.0 % [facility] Basophils/Leukocytes Auto (Bld) [Pure # fraction] 0.1 E9/L Normal 0.0 - 0.2 E9/L [facility] Eosinophils/100 WBC (Bld) 2.0 % Normal 0.0 - 8.0 % [facility] Eosinophils/Leukocytes Auto (Bld) [Pure # fraction] 0.2 E9/L Normal 0.0 - 0.5 E9/L [facility] Lymphocytes/100 WBC (Bld) 27.4 % Normal 14.0 - 50.0 % [facility] Lymphocytes/Leukocytes Auto (Bld) [Pure # fraction] 2.2 E9/L Normal 1.0 - 4.0 E9/L [facility] Monocytes/100 WBC (Bld) 5.0 % Normal 4.0 - 14.0 % [facility] Monocytes/Leukocytes Auto (Bld) [Pure # fraction] 0.4 E9/L Normal 0.2 - 1.0 E9/L [facility] Neutrophils/100 WBC (Bld) 64.9 % Normal 36.0 - 75.0 % [facility] Neutrophils/Leukocytes Auto (Bld) [Pure # fraction] 5.3 E9/L Normal 2.0 - 7.5 E9/L [facility] HEMATOLOGYOrdered By: Pushpa Renee on 10-09-2021 Erythrocyte distribution width (RBC) [Ratio] 14.2 % Normal 10.9 - 14.2 % [facility] Hematocrit (Bld) [Volume fraction] 43.1 % Normal 34.0 - 46.0 % [facility] Hemoglobin (Bld) [Mass/Vol] 15.3 g/dL Normal 12.0 - 16.0 gm/dL [facility] MCH (RBC) [Entitic mass] 32.8 pg Normal 27.0 - 34.0 pg [facility] MCHC (RBC) [Mass/Vol] 35.5 g/dL Normal 31.4 - 36.0 gm/dL [facility] MCV (RBC) [Entitic vol] 92.4 fL Normal 80.0 - 100.0 fL [facility] Platelet mean volume (Bld) [Entitic vol] 8.7 fL Normal 6.4 - 10.8 fL [facility] Platelets (Bld) [#/Vol] 213.0 E9/L Normal 150.0 - 500.0 E9/L [facility] RBC (Bld) [#/Vol] 4.7 E12/L Normal 4.3 - 5.9 E12/L [facility] WBC corrected for nucl RBC Auto (Bld) [#/Vol] 8.2 E9/L Normal 4.0 - 11.0 E9/L [facility] MICRO OTHER TESTSOrdered By: Maira Case on 10-09-2021 Rapid COV Int NEG Ctl Pass (10/09/21 3:20 PM) Normal [facility] Man Sero Rapid COV Int POS Ctl Pass (10/09/21 3:20 PM) Normal [facility] SARS-CoV+SARS-CoV-2 (COVID-19) Ag IA.rapid Ql (Resp) Not Detected (10/09/21 3:20 PM) Normal Not Detected [facility] CHEMISTRYOrdered By: Natalya woodward on 07-12-2021 Albumin DL <= 20 mg/L (U) [Mass/Vol] 5.8 microgram/mL Normal 0.0 - 19.0 mcg/mL [facility] CHEMISTRYOrdered By: SYSTEM SYSTEM on 07-12-2021 Albumin [Mass/Vol] 4.0 g/dL Normal 3.3 - 5.0 gm/dL [facility] Albumin/Globulin [Mass ratio] 1.2 {ratio} Normal 1.1 - 2.2 [facility] ALP [Catalytic activity/Vol] 123 [iU]/d High 21 - 98 Int._Unit/L [facility] ALT No additional P-5'-P [Catalytic activity/Vol] 14 [iU]/d Normal 6 - 46 Int._Unit/L [facility] Anion gap [Moles/Vol] 14 mmol/L Normal 6 - 16 mEq/L [facility] AST [Catalytic activity/Vol] 26 [iU]/d Normal 5 - 43 Int._Unit/L [facility] Bilirubin [Mass/Vol] 0.3 mg/dL Normal 0.0 - 1 .1 mg/dL [facility] Calcium [Mass/Vol] 9.3 mg/dL Normal 8.9 - 11. 1 mg/dL [facility] Chloride [Moles/Vol] 107 mmol/L Normal 101 - 1 11 mmol/L [facility] Cholesterol [Mass/Vol] 121 mg/dL Normal 120 - 200 mg/dL [facility] Cholesterol in HDL [Mass/Vol] 35 mg/dL Invalid Interpretation Code [facility] Cholesterol in LDL [Mass/Vol] 60 mg/dL Normal <=129mg/dL [facility] Cholesterol in VLDL [Mass/Vol] 32 mg/dL Normal 7 - 40 mg/dL [facility] Remisol CO2 [Moles/Vol] 23 mmol/L Normal 21 - 31 mmol/L [facility] Rem[facility] Creatinine [Mass/Vol] 0.9 mg/dL Normal 0.5 - 1.3 mg/dL [facility] GFR/1.73 sq M.predicted among blacks MDRD (S/P/Bld) [Vol rate/Area] mL/min/1.73 m2 Normal >=59mL/min/1 .73 m2 [facility] Chem S GFR/1.73 sq M.predicted among non-blacks MDRD (S/P/Bld) [Vol rate/Area] mL/min/1.73 m2 Normal >=59mL/min/1 .73 m2 [facility] Chem S Globulin (S) [Mass/Vol] 3.2 g/dL Normal 1.4 - 4.0 gm/dL [facility] Glucose [Mass/Vol] 121 mg/dL Normal 55 - 199 mg/dL [facility] Potassium [Moles/Vol] 4.2 mmol/L Normal 3.5 - 5.3 mmol/L [facility] Protein [Mass/Vol] 7.2 g/dL Normal 6.0 - 7.8 gm/dL [facility] Sodium [Moles/Vol] 140 mmol/L Normal 135 - 145 mmol/L [facility] Triglyceride [Mass/Vol] 158 mg/dL High <=149mg/dL [facility] Urea nitrogen [Mass/Vol] 15 mg/dL Normal 5 - 21 mg/dL [facility] Urea nitrogen/Creatinine [Mass ratio] 17 mg/mg Normal 10 - 20 [facility] CHEMISTRYOrdered By: Erum herndon on 07-12-2021 HbA1c (Bld) [Mass fraction] 6.9 % High <=5.9% [facility] ChemAutoSS HEMATOLOGYOrdered By: SYSTEM SYSTEM on 07-12-2021 Basophils/100 WBC (Bld) 0.6 % Normal 0.0 - 2.0 % [facility] HemeAutoSS Basophils/Leukocytes Auto (Bld) [Pure # fraction] 0.0 E9/L Normal 0.0 - 0.2 E9/L [facility] HemeAutoSS Eosinophils/100 WBC (Bld) 2.9 % Normal 0.0 - 8.0 % [facility] HemeAutoSS Eosinophils/Leukocytes Auto (Bld) [Pure # fraction] 0.2 E9/L Normal 0.0 - 0.5 E9/L [facility] HemeAutoSS Lymphocytes/100 WBC (Bld) 25.2 % Normal 14.0 - 50.0 % [facility] HemeAutoSS Lymphocytes/Leukocytes Auto (Bld) [Pure # fraction] 1.9 E9/L Normal 1.0 - 4.0 E9/L [facility] HemeAutoSS Monocytes/100 WBC (Bld) 5.7 % Normal 4.0 - 14.0 % [facility] HemeAutoSS Monocytes/Leukocytes Auto (Bld) [Pure # fraction] 0.4 E9/L Normal 0.2 - 1.0 E9/L [facility] HemeAutoSS Neutrophils/100 WBC (Bld) 65.6 % Normal 36.0 - 75.0 % [facility] HemeAutoSS Neutrophils/Leukocytes Auto (Bld) [Pure # fraction] 5.0 E9/L Normal 2.0 - 7.5 E9/L [facility] HemeAutoSS HEMATOLOGYOrdered By: Pushpa Renee on 07-12-2021 Erythrocyte distribution width (RBC) [Ratio] 14.4 % High 10.9 - 14.2 % [facility] HemeAutoSS Hematocrit (Bld) [Volume fraction] 44.1 % Normal 34.0 - 46.0 % [facility] HemeAutoSS Hemoglobin (Bld) [Mass/Vol] 14.7 g/dL Normal 12.0 - 16.0 gm/dL [facility] HemeAutoSS MCH (RBC) [Entitic mass] 31.5 pg Normal 27.0 - 34.0 pg [facility] HemeAutoSS MCHC (RBC) [Mass/Vol] 33.4 g/dL Normal 31.4 - 36.0 gm/dL [facility] HemeAutoSS MCV (RBC) [Entitic vol] 94.2 fL Normal 80.0 - 100.0 fL [facility] HemeAutoSS Platelet mean volume (Bld) [Entitic vol] 9.0 fL Normal 6.4 - 10.8 fL [facility] HemeAutoSS Platelets (Bld) [#/Vol] 214.0 E9/L Normal 150.0 - 500.0 E9/L [facility] HemeAutoSS RBC (Bld) [#/Vol] 4.7 E12/L Normal 4.3 - 5.9 E12/L [facility] HemeAutoSS WBC corrected for nucl RBC Auto (Bld) [#/Vol] 7.6 E9/L Normal 4.0 - 11.0 E9/L [facility] HemeAutoSS URINALYSISOrdered By: Erum Montes De Oca on 07-12-2021 Bacteria LM Ql (Urine sed) Trace /HPF Normal Trace/HPF [facility] UA Auto SS Bilirubin Ql (U) Negative (07/12/21 9:10 AM) Normal Negative [facility] UA Auto SS Clarity (U) Clear (07/12/21 9:10 AM) Normal Clear [facility] UA Auto SS Color (U) Yellow (07/12/21 9:10 AM) Normal Yellow [facility] UA Auto SS Epithelial cells.squamous LM.HPF (Urine sed) [#/Area] 3-4 /HPF Normal 0-2/HPF [facility] UA Aut o SS Glucose Test strip (U) [Mass/Vol] 3+ *ABN* (07/12/21 9:10 AM) Invalid Interpretation Code Negative [facility] UA Auto SS Hemoglobin Ql (U) Negative (07/12/21 9:10 AM) Normal Negative [facility] UA Auto SS Ketones (U) [Mass/Vol] Negative (07/12/21 9:10 AM) Normal Negative [facility] UA Auto SS [place].plasma/[place] .RBC (Bld) [Mass ratio] 0-3 /HPF Normal 0-3/HPF [facility] UA Auto SS Mucus Ql (Urine sed) Trace (07/12/21 9:10 AM) Normal [facility] UA Auto SS Nitrite Ql (U) Negative (07/12/21 9:10 AM) Normal Negative [facility] UA Auto SS pH (U) 6.0 *NA* (07/12/21 9:10 AM) Invalid Interpretation Code 5.0 - 9.0 [facility]A Auto SS Protein (U) [Mass/Vol] Negative (07/12/21 9:10 AM) Normal Negative [facility] UA Auto SS Specific gravity (U) [Rel density] 1.020 *NA* (07/12/21 9:10 AM) Invalid Interpretation Code 1.005 - 1.030 [facility] UA Auto SS UA Spec Desc Clean Catch (07/12/21 9:10 AM) Normal [facility] UA Auto SS Urobilinogen Qn (U) [id number] {Lidya'U}/dL Normal 0.0 - 1.0 EU/dL [facility] UA Auto SS WBC Auto Ql (U) Negative (07/12/21 9:10 AM) Normal Negative [facility] UA Auto SS WBC LM.HPF (Urine sed) [#/Area] 0-5 /HPF Normal 0-5/HPF [facility] UA Auto SS Yeast LM Ql (Urine sed) Trace (07/12/21 9:10 AM) Normal [facility] UA Auto SS HERPES SIMPLEX VIRUS (HSV) C ULTUREon 12-20-2020 HSV Culture/Type Comment Normal [facility] Comment on above: Result Comment: Nega tive No Herpes simplex virus isolated. Performed By: #### H SVCUL #### [facility] [address] [place] [address] Dr. Kinga Stringer GLYCOHEMOGLOBIN A1Con 2020 ADA RECOMMENDATION ADA THERAPEUTIC TARGET 6.0 - 7.0 ACTION SUGGESTED > 7.0 Normal [facility] Comment on above: Performed By: #### A 1C #### [facility] [address] [place] [address] Kt Jackie Glucose [Mass/Vol] 148 mg/dL Normal [facility] Comment on above: Performed By: #### A 1C #### [facility] [address] [place] [address] Kt Jackie HbA1c (Bld) [Mass fraction] 6.8 % Critically high <=6.0 [facility] Comment on above: Performed By: #### A 1C #### [facility] [address] [place] [address] Kt Jackie PROF CHEM 8 (BAS METB)on Anion gap [Moles/Vol] 13.2 mmol/L Normal [facility] Comment on above: Performed By: #### B MP #### [facility] [address] [place] [address] Kt Jackie Calcium [Mass/Vol] 9.4 mg/dL Normal 8.4-10.2 [facility] Comment on above: Performed By: #### B MP #### [facility] [address] [place] [address] Kt Jackie Chloride [Moles/Vol] 101 mmol/L Normal 98-107 [facility] Comment on above: Performed By: #### B MP #### [facility] [address] [place], [place] [id number] Kt Jackie CO2 [Moles/Vol] 30.3 mmol/L Critically high 22.0-30.0 [facility] Comment on above: Performed By: #### B MP #### [facility] [address] [place], [place] [id number] Kt Jackie Creatinine [Mass/Vol] 0.92 mg/dL Normal 0.52-1.04 [facility] Comment on above: Performed By: #### B MP #### [facility] [address] [id number] Kt Jackie EGFR-AF SAUDI ARABIAN >60 Normal >=60 [facility] Comment on above: Performed By: #### B MP #### [facility] [address] [address] Kt Jackie EGFR-NON AF SAUDI ARABIAN >60 Normal >=60 [facility] Comment on above: Performed By: #### B MP #### [facility] [address] [place] [address] Kt Jackie Glucose [Mass/Vol] 160 mg/dL Critically high 74-106 T [facility] Comment on above: Performed By: #### B MP #### [facility] [address] [place], [place] [id number] Kt Jackie Potassium [Moles/Vol] 4.5 mmol/L Normal 3.4-5.0 [facility] Comment on above: Performed By: #### B MP #### [facility] [address] [place], [place] [id number] Kt Jackie Sodium [Moles/Vol] 140 mmol/L Normal 137-145 [facility] Comment on above: Performed By: #### B MP #### [facility] [address] [place], [place] [id number] Kt Jackie Urea nitrogen [Mass/Vol] 14.0 mg/dL Normal 7.0-17.0 [facility] Comment on above: Performed By: #### B MP #### [facility] [address] [place], [place] [id number] Kt Jackie Urea nitrogen/Creatinine [Mass ratio] 15.2 mg/mg Normal [facility] Comment on above: Performed By: #### B MP #### [facility] [address] [place] [address] Kt Mejia Vital Signs Date Time Vital Sign Value Performing Clinician Jose husain 10-02-2023 12:41-0400 Body temperature 98.06 [degF] Juan Arnold [facility] 10-02-2023 12:41-0400 Diastolic blood pressure 79 mm[Hg] Juan Clayton [facility] 10-02-2023 12:41-0400 Heart rate 97 /min Juan Clayotn [facility] 10-02-2023 12:41-0400 Respiratory rate 18 /min Juan Arnold [facility] 10-02-2023 12:41-0400 SaO2% (BldA) [Mass fraction] 96 % Juan Arnold [facility] 10-02-2023 12:41-0400 Systolic blood pressure 109 mm[Hg] Juan Arnold [facility] 09-25-2023 08:52-0400 Diastolic blood pressure 79 mm[Hg] Kevin Liudmila [facility] 09-25-2023 08:52-0400 Heart rate 84 /min Kevin Liud[address] [facility] 09-25-2023 08:52-0400 Mean blood pressure 91 mm[Hg] Kevin Liudmila [facility] 09-25-2023 08:52-0400 Respiratory rate 18 /min Kevin Liud[facility] [facility] 09-25-2023 08:52-0400 SaO2% (BldA) [Mass fraction] 95 % Kevin Liudmila [facility] 09-25-2023 08:52-0400 Systolic blood pressure 115 mm[Hg] Kevin Liudmila [facility] 09-25-2023 08:04-0400 Diastolic blood pressure 77 mm[Hg] Kevin Liudmila [facility] 09-25-2023 08:04-0400 Heart rate 89 /min Kevin Liud[facility] [facility] 09-25-2023 08:04-0400 Mean blood pressure 87 mm[Hg] Kevin Liudmila [facility] 09-25-2023 08:04-0400 Respiratory rate 18 /min Kevin Liud[facility] [facility] 09-25-2023 08:04-0400 SaO2% (BldA) [Mass fraction] 95 % Kevin Liudmila [facility] 09-25-2023 08:04-0400 Systolic blood pressure 106 mm[Hg] Kevin Liudmila [facility] 09-25-2023 07:10-0400 Diastolic blood pressure 88 mm[Hg] Kevin Liudmila [facility] 09-25-2023 07:10-0400 Heart rate 85 /min Kevin [facility] 09-25-2023 07:10-0400 Mean blood pressure 97 mm[Hg] Kevin Liudmila [facility] 09-25-2023 07:10-0400 Respiratory rate 18 /min Kevin Liud[facility] 09-25-2023 07:10-0400 SaO2% (BldA) [Mass fraction] 97 % Kevin Liudmila [facility] 09-25-2023 07:10-0400 Systolic blood pressure 116 mm[Hg] Kevin Liudmila [facility] 09-25-2023 07:02-0400 Respiratory rate 18 /min Kevin [facility]udmial [facility] 09-25-2023 06:36-0400 Body temperature 97.88 [degF] Kevin Liudmila [facility] 09-25-2023 06:36-0400 Heart rate 109 /min Kevin Liud[facility] 09-25-2023 06:36-0400 Respiratory rate 16 /min Kevin Nur [facility] 08-10-2023 21:45-0400 Diastolic blood pressure 70 mm[Hg] Juan Clayton [facility] 08-10-2023 21:45-0400 Heart rate 67 /min Juan Arnold [facility] 08-10-2023 21:45-0400 Mean blood pressure 86 mm[Hg] Juan Arnold [facility] 08-10-2023 21:45-0400 Respiratory rate 17 /min Juan Arnold [facility] 08-10-2023 21:45-0400 SaO2% (BldA) [Mass fraction] 94 % Juan Arnold [facility] 08-10-2023 21:45-0400 Systolic blood pressure 118 mm[Hg] Juan Arnold [facility] 08-10-2023 21:12-0400 Body temperature 97.88 [degF] Juan Arnold [facility] 08-10-2023 21:12-0400 Diastolic blood pressure 59 mm[Hg] Juan Arnold [facility] 08-10-2023 21:12-0400 Heart rate 74 /min Juan Clayton [facility] 08-10-2023 21:12-0400 Mean blood pressure 71 mm[Hg] Juan Clayton [facility] 08-10-2023 21:12-0400 Respiratory rate 15 /min Juan Clayton [facility] 08-10-2023 21:12-0400 SaO2% (BldA) [Mass fraction] 93 % Juna Clayton [facility] 08-10-2023 21:12-0400 Systolic blood pressure 95 mm[Hg] Juan Clayton [facility] 08-10-2023 20:30-0400 Diastolic blood pressure 56 mm[Hg] Juan Clayton [facility] 08-10-2023 20:30-0400 Heart rate 70 /min Juan Clayton [facility] 08-10-2023 20:30-0400 Mean blood pressure 69 mm[Hg] Juan Clayton [facility] 08-10-2023 20:30-0400 Respiratory rate 11 /min Juan Clayton [facility] 08-10-2023 20:30-0400 SaO2% (BldA) [Mass fraction] 94 % Juan Clayton [facility] 08-10-2023 20:30-0400 Systolic blood pressure 95 mm[Hg] Juan Clayton [facility] 08-10-2023 19:07-0400 Body temperature 98.06 [degF] Juan Clayton [facility] 08-10-2023 19:07-0400 Heart rate 86 /min Juan Clayton [facility] 08-10-2023 19:07-0400 Respiratory rate 20 /min Juan Arnold [facility] 07-30-2023 02:18-0400 Diastolic blood pressure 102 mm[Hg] Kaylinn Dokken [facility] 07-30-2023 02:18-0400 Heart rate 88 /min Kaylinn Dokken [facility] 07-30-2023 02:18-0400 Mean blood pressure 109 mm[Hg] Kaylinn Dokken [facility] 07-30-2023 02:18-0400 SaO2% (BldA) [Mass fraction] 93 % Kaylinn Dokken [facility] 07-30-2023 02:18-0400 Systolic blood pressure 123 mm[Hg] Kaylinn Dokken [facility] 07-30-2023 01:00-0400 Body temperature 97.7 [degF] Kaylinn Dokken [facility] 07-30-2023 01:00-0400 Heart rate 83 /min Kaylinn D[facility] 07-30-2023 01:00-0400 Mean blood pressure 83 mm[Hg] Kaylinn Dokken [facility] 07-30-2023 01:00-0400 SaO2% (BldA) [Mass fraction] 94 % Kaylinn Dokken [facility] 07-30-2023 01:00-0400 Systolic blood pressure 110 mm[Hg] Kaylinn Dokken [facility] 07-30-2023 00:13-0400 Diastolic blood pressure 69 mm[Hg] Kaylinn Dokken [facility] 07-30-2023 00:13-0400 Heart rate 80 /min Kaylinn D[facility] 07-30-2023 00:13-0400 Mean blood pressure 79 mm[Hg] Kaylinn Dokken [facility] 07-30-2023 00:13-0400 Respiratory rate 16 /min Kaylinn Dok[facility] 07-30-2023 00:13-0400 SaO2% (BldA) [Mass fraction] 96 % Shoshanaylinn Dokken [facility] 07-30-2023 00:13-0400 Systolic blood pressure 100 mm[Hg] Shoshanaylinn Dokken [facility] 07-29-2023 21:29-0400 Body temperature 97.88 [degF] Shoshanaylinn Dokken [facility] 07-29-2023 21:29-0400 Respiratory rate 18 /min Shoshanaylinn Dokken [facility] 05-28-2023 15:00-0400 Diastolic blood pressure 68 mm[Hg] [facility] 05-28-2023 15:00-0400 Heart rate 83 /min [facility] 05-28-2023 15:00-0400 Mean blood pressure 75 mm[Hg] [facility] 05-28-2023 15:00-0400 Systolic blood pressure 90 mm[Hg] [facility] 05-28-2023 14:40-0400 Diastolic blood pressure 64 mm[Hg] [facility] 05-28-2023 14:40-0400 Heart rate 79 /min [facility] 05-28-2023 14:40-0400 Mean blood pressure 76 mm[Hg] [facility] 05-28-2023 14:40-0400 Respiratory rate 16 /min [facility] 05-28-2023 14:40-0400 SaO2% (BldA) [Mass fraction] 94 % [facility] 05-28-2023 14:40-0400 Systolic blood pressure 100 mm[Hg] [facility] 05-28-2023 13:02-0400 Body temperature 98.06 [degF] [facility] 05-28-2023 13:02-0400 Diastolic blood pressure 75 mm[Hg] [facility] 05-28-2023 13:02-0400 Heart rate 77 /min [facility] 05-28-2023 13:02-0400 SaO2% (BldA) [Mass fraction] 97 % [facility] 05-28-2023 13:02-0400 Systolic blood pressure 122 mm[Hg] [facility] 10-28-2022 18:54-0400 Diastolic blood pressure 69 mm[Hg] Gunnar Rangel [facility] 10-28-2022 18:54-0400 Heart rate 78 /min Gunnar Benjamine [facility] 10-28-2022 18:54-0400 Mean blood pressure 83 mm[Hg] Gunnar Benjamine [facility] 10-28-2022 18:54-0400 SaO2% (BldA) [Mass fraction] 98 % Gunnar Rangel [facility] 10-28-2022 18:54-0400 Systolic blood pressure 112 mm[Hg] Gunnar Benjamine [facility] 10-28-2022 16:57-0400 Diastolic blood pressure 83 mm[Hg] Gunnar Benjamine [facility] 10-28-2022 16:57-0400 Heart rate 84 /min Gunnar Benjamine [facility] 10-28-2022 16:57-0400 Mean blood pressure 93 mm[Hg] Gunnar Benjamine [facility] 10-28-2022 16:57-0400 SaO2% (BldA) [Mass fraction] 97 % Gunnar Benjamine [facility] 10-28-2022 16:57-0400 Systolic blood pressure 114 mm[Hg] Gunnar Benjamine [facility] 10-28-2022 15:15-0400 Body temperature 98.06 [degF] Gunnar Benjamine [facility] 10-28-2022 15:15-0400 Diastolic blood pressure 68 mm[Hg] Gunnar Benjamine [facility] 10-28-2022 15:15-0400 Heart rate 87 /min Gunnar Benjamine [facility] 10-28-2022 15:15-0400 Respiratory rate 18 /min Gunnar Benjamine [facility] 10-28-2022 15:15-0400 SaO2% (BldA) [Mass fraction] 95 % Gunnar Benjamine [facility] 10-28-2022 15:15-0400 Systolic blood pressure 104 mm[Hg] Gunnar Benjamine [facility] 10-25-2022 11:00-0400 Heart rate 75 /min Gunnar Benj[facility] 10-25-2022 11:00-0400 Mean blood pressure 82 mm[Hg] Gunnar Rangel [facility] 10-25-2022 11:00-0400 Respiratory rate 17 /min Gunnar Rangel [facility] 10-25-2022 11:00-0400 SaO2% (BldA) [Mass fraction] 92 % Gunnar Benjamine [facility] 10-25-2022 11:00-0400 Systolic blood pressure 93 mm[Hg] Gunnar Benjamine [facility] 10-25-2022 09:32-0400 Body temperature 97.7 [degF] Gunnar Benjamine [facility] 10-25-2022 09:32-0400 Diastolic blood pressure 76 mm[Hg] Gunnar Rangel [facility] 10-25-2022 09:32-0400 Heart rate 87 /min Gunnar Rangel [facility] 10-25-2022 09:32-0400 Respiratory rate 18 /min Gunnar [facility]angel [facility] 10-25-2022 09:32-0400 SaO2% (BldA) [Mass fraction] 94 % Gunnar Rangel [facility] 10-25-2022 09:32-0400 Systolic blood pressure 104 mm[Hg] Gunnar Benjamine [facility] 03-04-2022 20:00-0500 Diastolic blood pressure 82 mm[Hg] Kevin Liudmila [facility] 03-04-2022 20:00-0500 Heart rate 88 /min Kevin Liud[facility] 03-04-2022 20:00-0500 Mean blood pressure 87 mm[Hg] Kevin Liudmila [facility] 03-04-2022 20:00-0500 Respiratory rate 29 /min Kevin Liud[facility] 03-04-2022 20:00-0500 SaO2% (BldA) [Mass fraction] 93 % Kevin Liudmila [facility] 03-04-2022 20:00-0500 Systolic blood pressure 98 mm[Hg] Kevin Liudmila [facility] 03-04-2022 18:25-0500 Body temperature 98.06 [degF] Kevin [facility]udmila [facility] 03-04-2022 18:25-0500 Diastolic blood pressure 86 mm[Hg] Kevin [facility]udmila [facility] 03-04-2022 18:25-0500 Heart rate 102 /min Kevin [facility]ud[facility] 03-04-2022 18:25-0500 Respiratory rate 21 /min Kevin [facility]ud[facility] 03-04-2022 18:25-0500 SaO2% (BldA) [Mass fraction] 95 % Kevin Liudmila [facility] 03-04-2022 18:25-0500 Systolic blood pressure 137 mm[Hg] Kevin Liudmila [facility] 12-27-2021 02:56-0400 Diastolic blood pressure 68 mm[Hg] Kaylinn Dokken [facility] 12-27-2021 02:56-0400 Heart rate 87 /min Kaylinn Dokken [facility] 12-27-2021 02:56-0400 Mean blood pressure 80 mm[Hg] Kaylinn Dokken [facility] 12-27-2021 02:56-0400 SaO2% (BldA) [Mass fraction] 97 % Kaylinn Dokken [facility] 12-27-2021 02:56-0400 Systolic blood pressure 105 mm[Hg] Kaylinn Dokken [facility] 12-27-2021 01:58-0400 Body temperature 97.52 [degF] Shoshanaylinn Dokken [facility] 12-27-2021 01:58-0400 Diastolic blood pressure 110 mm[Hg] Kaylinn Dokken [facility] 12-27-2021 01:58-0400 Heart rate 94 /min Shoshanaylinn Dokken [facility] 12-27-2021 01:58-0400 Respiratory rate 16 /min Manishinn Dokken [facility] 12-27-2021 01:58-0400 SaO2% (BldA) [Mass fraction] 99 % Shoshanaylinn Dokken [facility] 12-27-2021 01:58-0400 Systolic blood pressure 157 mm[Hg] Shoshanaylinn Dokken [facility] 10-10-2021 12:00-0400 Hourly Rounding pierre [facility] 10-10-2021 12:00-0400 Promise to Return pierre [facility] 10-10-2021 11:59-0400 gluc 114 mg/dL Gregmad [facility] 10-10-2021 11:55-0400 Body temperature 97.88 [degF] Ahmad [facility] 10-10-2021 11:55-0400 Diastolic blood pressure 91 mm[Hg] [facility] 10-10-[facility]21 11:55-0400 Heart rate 78 /min juliányazmin [facility] 10-10-2021 11:55-0400 Mean blood pressure 105 mm[Hg] [facility] 10-10-2021 11:55-0400 SaO2% (BldA) [Mass fraction] 92 % [facility] 10-10-2021 11:55-0400 Systolic blood pressure 133 mm[Hg] [facility] 10-10-2021 11:00-0400 Hourly Rounding [facility] 10-10-2021 11:00-0400 Promise to Return [facility] 10-10-2021 10:18-0400 Blood [facility] 10-10-2021 10:18-0400 Body temperature 97.52 [degF] [facility] 10-10-2021 10:18-0400 BP/Pulse [facility] 10-10-2021 10:18-0400 Diastolic blood pressure 81 mm[Hg] [facility] 10-10-2021 10:18-0400 Heart rate 82 /min [facility] 10-10-2021 10:18-0400 Mean blood pressure 93 mm[Hg] [facility]-10[facility] 10:18-0400 Respiratory rate 18 /min [facility] 10-10-2021 10:18-0400 SaO2% (BldA) [Mass fraction] 94 % [facility] 10-10-2021 10:18-0400 Systolic blood pressure 117 mm[Hg] [facility] 10-10-2021 10:00-0400 Hourly Rounding [facility] 10-10-2021 10:00-0400 [facility] 10-10-2021 09:00-0400 SaO2% (BldA) [Mass fraction] 95 % [facility] 10-10-2021 08:50-0400 Diastolic blood pressure 77 mm[Hg] [facility] 10-10-2021 08:50-0400 Heart rate 80 /min pierre [facility] 10-10-2021 08:50-0400 Systolic blood pressure 120 mm[Hg] [facility] 10-10-2021 08:32-0400 gluc 131 mg/dL [facility] 10-10-2021 07:43-0400 Body temperature 97.52 [degF] [facility] 10-10-2021 07:43-0400 Heart rate 79 /min [facility] 10-10-2021 00:19-0400 Blood Pressure [facility] 10-10-2021 00:19-0400 BP/Pulse [facility] 10-09-2021 23:00-0400 Heart rate 87 /min [facility] 10-09-2021 23:00-0400 Mean blood pressure 78 mm[Hg] [facility] 10-09-2021 21:37-0400 gluc 200 mg/dL [facility] 10-09-2021 21:33-0400 Heart rate 85 /min [facility] 10-09-2021 19:23-0400 Mean blood pressure 89 mm[Hg] [facility] 10-09-2021 18:14-0400 Heart rate 103 /min [facility] 10-09-2021 17:34-0400 Mean blood pressure 88 mm[Hg] [facility] 10-09-2021 17:34-0400 Respiratory rate 24 /min [facility] 10-09-2021 17:27-0400 Mean blood pressure 93 mm[Hg] [facility] 10-09-2021 17:27-0400 Respiratory rate 14 /min [facility] 10-09-2021 16:11-0400 Respiratory rate 16 /min [facility] 10-09-2021 14:15-0400 Heart rate 110 /min [facility] 10-09-2021 14:15-0400 Respiratory rate 18 /min [facility] 06-07-2021 20:36-0400 Body temperature 97.88 [degF] [facility] 06-07-2021 20:36-0400 Diastolic blood pressure 71 mm[Hg] [facility] [facility]21 20:36-0400 Heart rate 107 /min [facility] 06-07-2021 20:36-0400 Respiratory rate 16 /min [facility] 06-07-2021 20:36-0400 SaO2% (BldA) [Mass fraction] 93 % [facility] 06-07-2021 20:36-0400 Systolic blood pressure 132 mm[Hg] [facility] Encounters Encounter Date Encounter Type Care Provider Facility Start: 12-02-2023 ambulatory Semaj QUINTEROS Facility :[facility] Start: 10-02-2023 End: 10-02-2023 Emergency department patient visit Juan Arnold [facility] Start: 09-25-2023 End: 09-25-2023 Emergency department patient visit Kevin Nur [facility] Start: 09-19-2023 End: 09-19-2023 ambulatory YANET Silver CHAIREZ Facility:[facility] Start: 09-19-2023 End: 09-19-2023 Patient encounter procedure YANET CHAIREZ [facility] Start: 08-10-2023 Emergency department patient visit Juan Arnold Facility:[facility] Start: 08-10-2023 End: 08-10-2023 Emergency department patient visit Juan Arnold [facility] Start: 08-06-2023 ambulatory Juan Arnold Facility:[facility] Start: 08-05-2023 End: 08-05-2023 ambulatory YANET CHAIREZ Not Available Start: 07-29-2023 End: 07-30-2023 Emergency department patient visit DO Heideriley Doug Rubyvalerio Facility:[facility] Start: 07-29-2023 End: 07-30-2023 Emergency department patient visit Heideriley Doug Dickinsonmiguel avalerio [facility] Start: 05-28-2023 End: 05-28-2023 Emergency department patient visit Mikaela Pierceloraine Facility:[facility] Start: 05-28-2023 End: 05-28-2023 Emergency department patient visit Salvadorjudy Moran Binta 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 Start: 10-25-2022 End: 10-26-2022 ambulatory YANET CHAIREZ Facility:[facility] Start: 10-25-2022 End: 10-25-2022 Patient encounter procedure YANET CHAIREZ [facility] Start: 10-25-2022 End: 10-25-2022 Emergency department patient visit Gunnar Rangel Facility:[facility] Start: 10-25-2022 End: 10-25-2022 Emergency department patient visit Gunnar Rangel [facility] Start: 10-02-2022 Emergency department patient visit Gunnar Rangel Facility:[facility] Start: 09-09-2022 ambulatory YANET CHAIREZ Facilit y:[facility] Start: 08-24-2022 End: 08-24-2022 Emergency department patient visit Kevin Nur Facility:[facility] Start: 06-30-2022 End: 06-30-2022 Patient encounter procedure YANET CHAIREZ [facility] Start: 03-14-2022 End: 03-14-2022 Patient encounter procedure YANET CHAIREZ [facility] Start: 03-04-2022 End: 03-04-2022 Emergency department patient visit Kevin Nur [facility] Start: 01-01-2022 End: 01-01-2022 Patient encounter procedure Marie Cooper [facility] Start: 12-27-2021 End: 12-27-2021 Emergency department patient visit Janes Bowles [facility] Start: 11-11-2021 End: 02-10-[address] [facility] Start: 10-10-2021 End: 10-23-2021 Pre-admission assessment Dorothy ALMANZAR [facility] Start: 10-09-2021 End: 10-10-2021 Observation Gregjuliányazmin Dorisbrielle [facility] Start: 08-21-2021 End: 08-22-2021 ambulatory JULIO KOWALSKI Facility:[facility] Start: 07-12-2021 End: 07-12-2021 Patient encounter procedure YANET CHAIREZ [facility] Start: 06-07-2021 End: 06-07-2021 Emergency department patient visit Mikaela Judd [facility] Start: 12-16-2020 End: 12-16-2020 ambulatory FAIZAN CHAIREZ Facility:[facility] Start: 10-29-2020 End: 10-30-2020 ambulatory FAIZAN CHAIREZ Facility:[facility] Procedures Date Procedure Procedure Detail Performing Clinician Start: 08-20-2018 PCI 1 Mikaela tam Comment on above: Drug eluting stent t o the Medial LAD Start: 03-16-2018 Abdominal hysterectomy Mikaela Judd Start: 03-16-2018 Appendectomy Mikaela tam Bilateral salpingect ilya with oophorectomy Mikaela Judd x2 2 Mikaela Justin i Comment on above: [id number] Cardiac catheterization Salvador Judd Cardiac Stent Mikaela Judd Dilation and curettage Anila Judd Hernia repair x5 3 Mikaela sheppraddadante Comment on above: [id number] Hysterectomy Karlad Mojessi Incision AND drainage Mikaela Judd Comment on above: multiple abscess kidney stone removal Mikaela Judd Lithotripsy Mikaela Judd Plan of Treatment Date Care Activity Detail Author Start: 09-26-2024 Glaucoma screening Diabetes: R etinopathy Screening [facility] Start: 07-01-2023 Urine screening for protein Diabetes: Urine Protein Screening [facility] Start: 11-14-2022 Influenza vaccination Influenza Vacc ine (#1) [facility] Start: 2021 Screening for malign ant neoplasm of breast Mammogram [facility] Start: 1981 Hemoglobin A1c measurement Diabetes: Hemoglobin A1C [facility] Immunizations Immunization Date Immunization Notes Care Provider Fa cility NEGATED: Highlighted row has not occurred!02-21-2021 influenza virus vaccine, unspecified formulation Mikaela Judd [facility] Payers Date Payer Category Payer Medicaid [employer] [place] [id number] 2022-Present [address] [place] [address] [id number] 2017 Unknown [id number] 1981 Unknown [id number] 2.840.1.066965.3.579.2.593 1981 Unknown [id number] 2.840.1.556240.3.579.2.593 1981 Unknown [id number] 2.840.1.064504.3.579.2.593 1981 Unknown [id number] 2.840.1.501406.3.579.2.727 1981 Unknown [id number] 2.840.1.846015.3.579.2. 1981 Unknown [id number] 2.16840.1.112994.3.579.2 1981 Unknown [id number] 2.16.840.1.887411.3.579.2. 1981 Unknown [id number] 2.840.1.031867.3.579.2 1981 Unknown [id number] 2.16840.1.167970.3.579.2 1981 Unknown [id number] 2.840.1.367878.3.579.2 1981 Unknown [id number] 2.840.1.089522.3.579.2 1981 Unknown [id number] 2.0.1.883947.3.579.2 1981 Unknown [id number] 2.840.1.928271.3.579.2 1981 Unknown [id number] 2.840.1.154013.3.579.2.1258 1981 Unknown [id number] 2.840.1.566509.3.579.2.1258 1981 Unknown [id number] 2.840.1.106415.3.579.2 1981 Unknown [id number] 2.840.1.840065.3.579.2. 1981 Unknown [id number] 2.840.1.504457.3.579.2 1981 Unknown [id number] 2.840.1.143228.3.579.2 1981 Unknown [id number] 2.840.1.682296.3.579.2 1981 Unknown [id number] 2.16840.1.650363.3.579.2.727 1981 Unknown [id number] 2.16.840.1.783066.3.579.2.727 1981 Unknown [id number] 2.16.840.1.602497.3.579.2.727 1959 Unknown [id number] Social History Date Type Detail Facility Start: 02-21-2021 End: 09-25-2023 Tobacco smoking status Ex-smoker (finding) [facility] Tobacco smoking status Never [facility] Start: 03-15-2023 Sex Assigned At Female F [facility] Start: 03-15-2023 Tobacco smoking stat [facility] Smokes tobacco daily [facility] History of tobacco use Cigarette Smoker N [facility] Start: 03-15-2023 Cigarettes smoked current (pack per day) - Reported 0.5 [facility] Start: 03-17-2023 Alcohol intake Ex-drinker (finding) [facility] Start: 03-15-2023 Alcohol Comment caffeine more than 4 cups per day [facility] Start: 1980 Sex Assigned At Not on file N [facility] Medical Equipment Procedure Code Equipment Code Equipment Origin al Text Equipment Identifier Dates 1 anna, Rectal, B ID, 30 gram, Refill(s) 0, [id number], 162, cm, 02/21/21 12:40:00 EST, Height/Length Dosing, 128.3, kg, 02/21/21 12:40:00 EST, Weight Dosing Start: 02-21-2021 1 anna, Rectal, B ID, 30 gram, Refill(s) 0, [id number], 162, cm, 02/21/21 12:40:00 EST, Height/Length Dosing, 128.3, kg, 02/21/21 12:40:00 EST, Weight Dosing Start: 02-21-2021 B-D ULTRA-FINE 3 3 LANCETS [facility] [id number] Inject under the skin if needed. Use as instructed [id number] Functional Status Date Assessment Result Facility 10-02-2023 Functional Status N/A [facility] 09-25-2023 Functional Status N/A [facility] 08-10-2023 Functional Status N/A [facility] 07-29-2023 Functional Status N/A [facility] 05-28-2023 Functional Status N/A [facility] 10-28-2022 Functional Status N/A [facility] 10-25-2022 Functional Status N/A [facility] 03-04-2022 Functional Status N/A [facility] 12-27-2021 Functional Status N/A [facility] 10-09-2021 Functional Status N/A [facility] 10-09-2021 Functional Status [facility] Clinical Notes 06-07-2021 to 10-02-2023 Note Date & Type Note Facility 10-02-2023 Hospital Discharg e instructions Patient Education 10/02/2023 13:34:25 Bartholin's Cyst, Elca-lx-Yojr Bartholin's Cyst A Bartholin's cyst is a fluid-filled sac that forms on a Bartholin's gland. Bartholin's glands are small glands in the folds of skin near the opening of the vagina (labia). This type of cyst causes a bulge or lump near the opening of the vagina. If you have a cyst that is small and not infected, you may be able to take care of it at home. If your cyst gets infected, it may cause pain and your doctor may need to drain it. What are the causes? This condition may be caused by a blocked Bartholin's gland. Germs (bacteria) inside of the cyst can cause an infection. What are the signs or symptoms? A bulge or lump near the opening of the vagina. Discomfort or pain. Redness, swelling, or fluid draining from the area. How is this treated? You may not need treatment if your cyst is not causing symptoms. The cyst can go away on its own with home care. Home care includes hot baths or heat therapy. Large cysts or cysts that are infected may be treated with: Antibiotic medicine. A procedure to drain the fluid. Cysts that keep coming back will need to be drained many times. Your doctor may talk to you about surgery to remove the cyst. Follow these instructions at home: Medicines Take rmvb-xlg-vuvikbr and prescription medicines only as told by your doctor. If you were prescribed an antibiotic medicine, take it as told by your doctor. Do not stop taking it even if you start to feel better. Managing pain and swelling Try sitz baths to help with pain and swelling. A sitz bath is a warm water bath in which the water only comes up to your hips and should cover your buttocks. You may take sitz baths a few times a day. If told, put heat on the affected area as often as needed. Use the heat source that your doctor recommends, such as a moist heat pack or a heating pad. ?Place a towel between your skin and the heat source. ?Leave the heat on for 20 30 minutes. ?Take off the heat if your skin turns bright red. This is very important. If you cannot feel pain, heat, or cold, you have a greater risk of getting burned. General instructions If your cyst was drained: ?Follow instructions from your doctor about how to take care of your wound. ?Use feminine pads to absorb any fluid. Do not push on or squeeze your cyst. Do not have sex until the cyst has gone away or your wound from drainage has healed. Take these steps to help prevent a cyst from returning, and to prevent other cysts from forming: ?Take a bath or shower once a day. Clean the area around your vagina with mild soap and water when you bathe. ?Practice safe sex to prevent STIs. Talk with your doctor about how to prevent STIs and which forms of control to use. Keep all follow-up visits. Contact a doctor if: You have a fever. You get more redness, swelling, or pain around your cyst. You have fluid, blood, pus, or a bad smell coming from your cyst. You have a cyst that gets larger or a cyst that comes back. Summary A Bartholin's cyst is a fluid-filled sac that forms on a Bartholin's gland. These small glands are found in the folds of skin near the opening of the vagina (labia). This type of cyst causes a bulge or lump near the opening of the vagina. Try sitz baths a few times a day to help with pain and swelling. Do not push on or squeeze your cyst. This information is not intended to replace advice given to you by your health care provider. Make sure you discuss any questions you have with your health care provider. Document Revised: 07/30/2020 Document Reviewed: 07/30/2020 [employer] Patient Education 2022 [employer]. Follow Up Care 10/02/2023 12:30:34 With:Hieu Parish Address: [address], [address] [place] [address]- Business (1) When:10/05/2023 13:33:45 Comments:Call to schedule a follow up appointment with an VESSEL SPECIALIST for further management of care. Take the antibiotic in entirerty. With:YANET CHAIREZ Address: [address] [place] [address] [phone] Business (1) When:Within 3 Day(s) [facility] 09-25-2023 Evaluation + Plan note Extrac sandro from: Title:ED Note Author:Gunnar Rangel DO Date:09/13 05/09 Gastritis (K29.70: Gastritis , unspecified, without bleeding) Ordered: promethazine, 25 mg = 1 tab(s), Oral, q4hr, X 3 day(s), # 18 tab(s), Refills(s) 0, Pharmacy: [id number], 160, cm, 09/25/23 6:39:00 EDT, Height/Length Dosing, 105.7, kg, 09/25/23 6:39:00 EDT, Weight Dosing Orders: diazepam, 5 mg = 1 mL, Injection, IV Push, Once, Stop date 09/25/23 7:49:00 EDT, STAT, Start date 09/25/23 7:49:00 EDT, 09/25/23 7:49:00 EDT promethazine 25 mg + Sodium Chloride 0.9% intravenous solution 50 mL, Injection, IV Piggyback, Once, Stop date 09/25/23 7:49:00 EDT, STAT, Start date 09/25/23 7:49:00 EDT, 153 mL/hr, Infuse over 20 minute(s) Future Appointments Appointment Date:12/02/2023 10:00:00 AM Scheduled Provider:Semaj QUINTEROS MD Location:[facility] Appointment Type:URO New Patient Future Scheduled Tests Radiology* XR Abdomen 1 View 08/06/23 [facility]07-12-2024 Hospital Discharge instructions Follow Up Care 09/25/2023 06:34:35 With:YANET CHAIREZ Address: [address] [place] [address] [phone] Business (1) When:Within 3 Day(s) [facility]05-28-2024 Hospital Discharge instructions Patient Education 08/10/2023 22:15:29 Nonspecific Chest Pain, Adult, Azqn-us-Agtg Nonspecific Chest Pain Chest pain can be caused by many different conditions. Some causes of chest pain can be life-threatening. These will require treatment right away. Serious causes of chest pain include: Heart attack. A tear in the body's main blood vessel. Redness and swelling (inflammation) around your heart. Blood clot in your lungs. Other causes of chest pain may not be so serious. These include: Heartburn. Anxiety or stress. Damage to bones or muscles in your chest. Lung infections. Chest pain can feel like: Pain or discomfort in your chest. Crushing, pressure, aching, or squeezing pain. Burning or tingling. Dull or sharp pain that is worse when you move, cough, or take a deep breath. Pain or discomfort that is also felt in your back, neck, jaw, shoulder, or arm, or pain that spreads to any of these areas. It is hard to know whether your pain is caused by something that is serious or something that is not so serious. So it is important to see your doctor right away if you have chest pain. Follow these instructions at home: Medicines Take gesa-ezi-bnvhlit and prescription medicines only as told by your doctor. If you were prescribed an antibiotic medicine, take it as told by your doctor. Do not stop taking the antibiotic even if you start to feel better. Lifestyle Rest as told by your doctor. Do not use any products that contain nicotine or tobacco, such as cigarettes, e- cigarettes, and chewing tobacco. If you need help quitting, ask your doctor. Do not drink alcohol. Make lifestyle changes as told by your doctor. These may include: ?Getting regular exercise. Ask your doctor what activities are safe for you. ?Eating a heart-healthy diet. A diet and food and nutrition services supervisor (dietitian) can help you to learn healthy eating options. ?Staying at a healthy weight. ?Treating diabetes or high blood pressure, if needed. ?Lowering your stress. Activities such as yoga and relaxation techniques can help. General instructions Pay attention to any changes in your symptoms. Tell your doctor about them or any new symptoms. Avoid any activities that cause chest pain. Keep all follow-up visits as told by your doctor. This is important. You may need more testing if your chest pain does not go away. Contact a doctor if: Your chest pain does not go away. You feel depressed. You have a fever. Get help right away if: Your chest pain is worse. You have a cough that gets worse, or you cough up blood. You have very bad (severe) pain in your belly (abdomen). You pass out (faint). You have either of these for no clear reason: ?Sudden chest discomfort. ?Sudden discomfort in your arms, back, neck, or jaw. You have shortness of breath at any time. You suddenly start to sweat, or your skin gets clammy. You feel sick to your stomach (nauseous). You throw up (vomit). You suddenly feel lightheaded or dizzy. You feel very weak or tired. Your heart starts to beat fast, or it feels like it is skipping beats. These symptoms may be an emergency. Do not wait to see if the symptoms will go away. Get medical help right away. Call your local emergency services (911 in the [place] Do not drive yourself to the hospital. Summary Chest pain can be caused by many different conditions. The cause may be serious and need treatment right away. If you have chest pain, see your doctor right away. Follow your doctor's instructions for taking medicines and making lifestyle changes. Keep all follow-up visits as told by your doctor. This includes visits for any further testing if your chest pain does not go away. Be sure to know the signs that show that your condition has become worse. Get help right away if you have these symptoms. This information is not intended to replace advice given to you by your health care provider. Make sure you discuss any questions you have with your health care provider. Document Revised: 05/16/2021 Document Reviewed: 05/16/2021 [employer] Patient Education 2022 [employer]. Follow Up Care 08/10/2023 19:05:46 With:Koko Vasquez Address: [address] [place] [address]- Business (1) When:08/13/2023 21:40:29 Comments:Call for diagnosis based follow up With:YANET CHAIREZ Address: [address] [address] [phone] Business (1) When:08/13/2023 21:40:21 Comments:Call Dr for diagnosis based follow up [facility]05-27-2024 Evaluation + Plan noteExtracted from: Title:ED Note Author:Donte GUZMAN, Joseph Castillo te:08/10/23 Nonspecific chest pain (R07. 9: Chest pain, unspecified) Orders: acetaminophen-oxycodone, 1 EA, Tab, Oral, Once, Stop date 08/10/23 21:39:00 EDT, STAT, Start date 08/10/23 21:39:00 EDT Al hydroxide/Mg hydroxide/simethicone, 30 mL, Susp-Oral, Oral, Once, Stop date 08/10/23 21:39:00 EDT, STAT, Start date 08/10/23 21:39:00 EDT atropine/hyoscyamine/PB/scopolamine, 10 mL, Elixir, Oral, Once, Stop date 08/10/23 21:39:00 EDT, STAT, Start date 08/10/23 21:39:00 EDT diazepam, 2.5 mg = 0.5 mL, Injection, IV Push, Once, Stop date 08/10/23 20:54:00 EDT, STAT, Start date 08/10/23 20:54:00 EDT, 08/10/23 20:54:00 EDT lidocaine topical, 200 mg, 10 mL, Soln-Oral, Oral, Once, Stop date 08/10/23 21:39:00 EDT, STAT, Start date 08/10/23 21:39:00 EDT morphine, 4 mg = 1 mL, Injection, IV Push, Once, Stop date 08/10/23 19:35:00 EDT, STAT, Start date 08/10/23 19:35:00 EDT, 08/10/23 19:35:00 EDT morphine, 2 mg = 1 mL, Injection, IV Push, Once, Stop date 08/10/23 21:39:00 EDT, STAT, Start date 08/10/23 21:39:00 EDT, 08/10/23 21:39:00 EDT ondansetron, 4 mg = 2 mL, Injection, IV Push, Once, Stop date 08/10/23 19:36:00 EDT, STAT, Start date 08/10/23 19:36:00 EDT, 08/10/23 19:36:00 EDT Sodium Chloride 0.9% intravenous solution, 1,000 mL, Soln-IV, IV, Once, Stop date 08/10/23 19:41:00 EDT, STAT, Start date 08/10/23 19:41:00 EDT, Infuse over 61, minute(s) Future Appointments Appointment Date:12/02/2023 10:00:00 AM Scheduled Provider:Semaj QUINTEROS MD Location:[facility] Appointment Type:URO New Patient Future Scheduled Tests Radiology* XR Abdomen 1 View 08/06/23 [facility]05-16-2024 Evaluation + Plan noteExtracted from: Title:ED Note Author:Janes Bowles DO Date :07/30/23 Acute UTI (urinary tract inf ection) (N39.0: Urinary tract infection, site not specified) Flank pain (R10.9: Unspecified abdominal pain) Orders: acetaminophen + Generic Diluent 100 mL, 1,000 mg = 100 mL, Soln-IV, IV Piggyback, Once, Stop date 07/30/23 0:46:00 EDT, STAT, Start date 07/30/23 0:46:00 EDT, 400 mL/hr, Infuse over 15 minute(s) ceftriaxone + Sodium Chloride 0.9% intravenous solution 50 mL, 1,000 mg = 1 EA, IV Piggyback, Once, Stop date 07/30/23 0:18:00 EDT, STAT, Start date 07/30/23 0:18:00 EDT, 100 mL/hr, Infuse over 30 minute(s), 07/30/23 0:18:00 EDT cephalexin, 500 mg = 1 cap(s), Oral, TID, X 5 day(s), # 15 cap(s), Refills(s) 0, Pharmacy: [id number], 160, cm, 07/29/23 21:34:00 EDT, Height/Length Dosing, 119, kg, 07/29/23 21:34:00 EDT, Weight Dosing ketorolac, 30 mg = 1 mL, Injection, IV Push, Once, Stop date 07/29/23 23:22:00 EDT, STAT, Start date 07/29/23 23:22:00 EDT, 07/29/23 23:22:00 EDT morphine, 4 mg = 1 mL, Injection, IV Push, Once, Stop date 07/30/23 0:07:00 EDT, STAT, Start date 07/30/23 0:07:00 EDT, 07/30/23 0:07:00 EDT ondansetron, 4 mg = 1 tab(s), Oral, q8hr, # 12 tab(s), Refills(s) 0, [id number] 160, cm, 07/29/23 21:34:00 EDT, Height/Length Dosing, 119, kg, 07/29/23 21:34:00 EDT, Weight Dosing ondansetron, 4 mg = 2 mL, Injection, IV Push, Once, Stop date 07/29/23 23:22:00 EDT, STAT, Start date 07/29/23 23:22:00 EDT, 07/29/23 23:22:00 EDT oxycodone, 5 mg = 1 tab(s), Tab, Oral, Once, Stop date 07/30/23 1:46:00 EDT, STAT, Start date 07/30/23 1:46:00 EDT, 07/30/23 1:46:00 EDT phenazopyridine, 100 mg = 1 tab(s), Oral, TID, X 3 day(s), # 9 tab(s), Refills(s) 0, Pharmacy: [id number], 160, cm, 07/29/23 21:34:00 EDT, Height/Length Dosing, 119, kg, 07/29/23 21:34:00 EDT, Weight Dosing Sodium Chloride 0.9% intravenous solution, 1,000 mL, Soln-IV, IV, Once, Stop date 07/29/23 23:22:00 EDT, STAT, Start date 07/29/23 23:22:00 EDT, Infuse over 61, minute(s) Basic Metabolic Panel Beta hCG Qual CBC w/ Auto Diff CT Abdomen/Pelvis w/o Contrast ECG 12 Lead Adult eGFR Hepatic Function Panel Lipase Level Troponin 0 Hr. Diagnostic Tests Pending * Urine Culture 07/29/23 [facility]05-16-2024 Hospital Discharge instructions Patient Education 07/30/2023 02:22:55 Urinary Tract Infection, Adult, Hzat-oz-Zzyr Urinary Tract Infection, Adult A urinary tract infection (UTI) is an infection of any part of the urinary tract. The urinary tractincludes: The kidneys. The ureters. The bladder. The urethra. These organs make, store, and get rid of pee (urine) in the body. What are the causes? This infection is caused by germs (bacteria) in your genital area. These germs grow and cause swelling (inflammation) of your urinary tract. What increases the risk? The following factors may make you more likely to develop this condition: Using a small, thin tube (catheter) to drain pee. Not being able to control when you pee or poop (incontinence). Being female. If you are female, these things can increase the risk: ?Using these methods to prevent : ?A medicine that kills sperm (spermicide). ?A device that blocks sperm (diaphragm). ?Having low levels of a female hormone (estrogen). ?Being . You are more likely to develop this condition if: You have genes that add to your risk. You are sexually active. You take antibiotic medicines. You have trouble peeing because of: ?A prostate that is bigger than normal, if you are male. ?A blockage in the part of your body that drains pee from the bladder. ?A kidney stone. ?A nerve condition that affects your bladder. ?Not getting enough to drink. ?Not peeing often enough. You have other conditions, such as: ?Diabetes. ?A weak disease-fighting system (immune system). ?Sickle cell disease. ?Gout. ?Injury of the spine. What are the signs or symptoms? Symptoms of this condition include: Needing to pee right away. Peeing small amounts often. Pain or burning when peeing. Blood in the pee. Pee that smells bad or not like normal. Trouble peeing. Pee that is cloudy. Fluid coming from the vagina, if you are female. Pain in the belly or lower back. Other symptoms include: Vomiting. Not feeling hungry. Feeling mixed up (confused). This may be the first symptom in older adults. Being tired and grouchy (irritable). A fever. Watery poop (diarrhea). How is this treated? Taking antibiotic medicine. Taking other medicines. Drinking enough water. In some cases, you may need to see a specialist. Follow these instructions at home: Medicines Take rbua-ktt-aluobah and prescription medicines only as told by your doctor. If you were prescribed an antibiotic medicine, take it as told by your doctor. Do not stop taking it even if you start to feel better. General instructions Make sure you: ?Pee until your bladder is empty. ?Do not hold pee for a long time. ?Empty your bladder after sex. ?Wipe from front to back after peeing or pooping if you are a female. Use each tissue one time whenyou wipe. Drink enough fluid to keep your pee pale yellow. Keep all follow-up visits. Contact a doctor if: You do not get better after 1 2 days. Your symptoms go away and then come back. Get help right away if: You have very bad back pain. You have very bad pain in your lower belly. You have a fever. You have chills. You feeling like you will vomit or you vomit. Summary A urinary tract infection (UTI) is an infection of any part of the urinary tract. This condition is caused by germs in your genital area. There are many risk factors for a UTI. Treatment includes antibiotic medicines. Drink enough fluid to keep your pee pale yellow. This information is not intended to replace advice given to you by your health care provider. Make sure you discuss any questions you have with your health care provider. Document Revised: 10/12/2020 Document Reviewed: 10/12/2020 [employer] Patient Education 2022 [employer]. 07/30/2023 02:22:55 Flank Pain, Adult, Swyd-ts-Jsfw Flank Pain, Adult Flank pain is pain in your side. The flank is the area on your side between your upper belly (abdomen) and your spine. The pain may occur over a short time (acute), or it may be long-term or come back often (chronic). It may be mild or very bad. Pain in this area can be caused by many different things. Follow these instructions at home: Drink enough fluid to keep your pee (urine) pale yellow. Rest as told by your doctor. Take uqbu-qny-sqicpyv and prescription medicines only as told by your doctor. Keep a journal to keep track of: ?What has caused your flank pain. ?What has made your flank pain feel better. Keep all follow-up visits. Contact a doctor if: Medicine does not help your pain. You have new symptoms. Your pain gets worse. Your symptoms last longer than 2 3 days. You have trouble peeing. You are peeing more often than normal. Get help right away if: You have trouble breathing. You are short of breath. Your belly hurts, or it is swollen or red. You feel like you may vomit (nauseous). You vomit. You feel faint, or you faint. You have blood in your pee. You have flank pain and a fever. These symptoms may be an emergency. Get help right away. Call your local emergency services (911 int [place] Do not wait to see if the symptoms will go away. Do not drive yourself to the hospital. Summary Flank pain is pain in your side. The flank is the area of your side between your upper belly (abdomen) and your spine. Flank pain may occur over a short time (acute), or it may be long-term or come back often (chronic). It may be mild or very bad. Pain in this area can be caused by many different things. Contact your doctor if your symptoms get worse or last longer than 2 3 days. This information is not intended to replace advice given to you by your health care provider. Make sure you discuss any questions you have with your health care provider. Document Revised: 05/13/2021 Document Reviewed: 05/13/2021 [employer] Patient Education 2022 [employer]. Follow Up Care 07/29/2023 21:13:40 With:YANET CHAIREZ Address: [address] [place] [address] [phone] Business (1) When:08/02/2023 Comments:Take the antibiotics as prescribed you have completed the course. Use the Pyridium, Zofran as prescribed as needed for nausea and burning. Please follow-up with your primary care doctor for further evaluation management. [facility]03-14-2024 Hospital Discharge instructions Patient Education 05/28/2023 15:54:36 Renal Colic Renal Colic Renal colic is pain that is caused by passing a kidney stone. The pain can be sharp and severe. It may be felt in the back, abdomen, side (flank), or groin. It can cause nausea. Renal colic can come and go. Follow these instructions at home: Watch your condition for any changes. The following actions may help to lessen any discomfort that you are feeling: Medicines Take pily-fhx-zqqhxtg and prescription medicines only as told by your health care provider. Do not drive or use heavy machinery while taking prescription pain medicine. Eating and drinking Drink enough fluid to keep your urine pale yellow. You may be instructed to drink at least 8 10 glasses of water each day. Follow instructions from your health care provider. If directed, change your diet. This may include: ?Limiting how much sodium you eat. You may need to eat less than 2 grams (2,000 mg) per day. ?Eating more fruits and vegetables. ?Limiting how much animal protein, such as red meat, poultry, fish, and eggs, you eat. ?Avoiding foods such as spinach, rhubarb, sweet potatoes, and nuts. These make kidney stones more likely to form. Follow instructions from your health care provider about eating or drinking restrictions. General instructions Keep all follow-up visits as told by your health care provider. This is important. Collect urine samples as told by your health care provider. You may need to collect a urine sample: ?24 hours after you pass the stone. ?8 12 weeks after passing the kidney stone, and every 6 12 months after that. Strain your urine every time you urinate, for as long as directed. Use the strainer that your health care provider recommends. Do not throw out the kidney stone after passing it. Keep the stone so it can be tested by your health care provider. Testing the makeup of your kidney stone may help understand how to prevent you from getting kidney stones in the future. Contact a health care provider if: You have a fever or chills. Your urine smells bad or looks cloudy. You have pain or burning when you pass urine. Get help right away if: Your flank pain or groin pain suddenly worsens. You become confused or disoriented or you lose consciousness. Summary Renal colic is pain that is caused by passing a kidney stone. Take wvax-ztf-gxgugps and prescription medicines only as told by your health care provider. Drink enough fluid to keep your urine pale yellow. You may be instructed to drink at least 8 10 glasses of water each day. Follow instructions from your health care provider. Strain your urine every time you urinate, for as long as directed. Use the strainer that your health care provider recommends. Do not throw out the kidney stone after passing it. Keep the stone so it can be tested by your health care provider. This information is not intended to replace advice given to you by your health care provider. Make sure you discuss any questions you have with your health care provider. Document Revised: 11/04/2021 Document Reviewed: 11/04/2021 [employer] Patient Education 2022 [employer]. Follow Up Care 05/28/2023 12:58:24 With:YANET CHAIREZ Address: [address] [place] [id number] [phone] Business (1) When:05/31/2023 15:22:50 [facility]03-14-2024 Evaluation + Plan noteExtracted from: Title:ED Note Author:Mireille THORNE Student, Erik in [employer] Date:05/28/23 Renal colic (N23: Unspecifie d renal colic) Ordered: acetaminophen-oxycodone, 1 tab(s), Oral, q6hr as needed for pain for 3 day(s), 15 tab(s), Refill(s) 0, [id number], 160, cm, 05/28/23 13:08:00 EDT, Height/Length Dosing, 115, kg, 05/28/23 13:08:00 EDT, Weight Dosing Orders: HYDROmorphone, 1 mg = 1 mL, Injection, IV Push, Once, Stop date 05/28/23 14:39:00 EDT, STAT, Start date 05/28/23 14:39:00 EDT, 05/28/23 14:39:00 EDT ketorolac, 30 mg = 1 mL, Injection, IV Push, Once, Stop date 05/28/23 13:22:00 EDT, STAT, Start date 05/28/23 13:22:00 EDT, 05/28/23 13:22:00 EDT morphine, 4 mg = 1 mL, Injection, IV Push, Once, Stop date 05/28/23 13:22:00 EDT, STAT, Start date 05/28/23 13:22:00 EDT, 05/28/23 13:22:00 EDT ondansetron, 4 mg = 2 mL, Injection, IV Push, Once, Stop date 05/28/23 13:22:00 EDT, STAT, Start date 05/28/23 13:22:00 EDT, 05/28/23 13:22:00 EDT Sodium Chloride 0.9% intravenous solution, 1,000 mL, Soln-IV, IV, Once, Stop date 05/28/23 13:22:00 EDT, STAT, Start date 05/28/23 13:22:00 EDT, Infuse over 61, minute(s) tamsulosin, 0.4 mg = 1 cap(s), Oral, Daily, # 10 cap(s), Refills(s) 0, Pharmacy: [id number], 160, cm, 05/28/23 13:08:00 EDT, Height/Length Dosing, 115, kg, 05/28/23 13:08:00 EDT, Weight Dosing CT Abdomen/Pelvis w/o Contrast UA With Cult Reflex [facility]08-15-2023 Hospital Discharge instructions Patient Education 10/28/2022 18:55:13 Lithotripsy Lithotripsy Lithotripsy is a treatment that can help break up kidney stones that are too large to pass on theirown. This is a nonsurgical procedure that crushes a kidney stone with shock waves. These shock waves pass through your body and focus on the kidney stone. They cause the kidney stone to break up intosmaller pieces while it is still in the urinary tract. The smaller pieces of stone can pass more easily out of your body in the urine. Tell a health care provider about: Any allergies you have. All medicines you are taking, including vitamins, herbs, eye drops, creams, and elvv-kdq-jrqyvca medicines. Any problems you or family members have had with anesthetic medicines. Any blood disorders you have. Any surgeries you have had. Any medical conditions you have. Whether you are or may be . What are the risks? Generally, this is a safe procedure. However, problems may occur, including: Infection. Bleeding from the kidney. Bruising of the kidney or skin. Scarring of the kidney, which can lead to: ?Increased blood pressure. ?Poor kidney function. ?Return (recurrence) of kidney stones. Damage to other structures or organs, such as the liver, colon, spleen, or pancreas. Blockage (obstruction) of the tube that carries urine from the kidney to the bladder (ureter). Failure of the kidney stone to break into pieces (fragments). What happens before the procedure? Staying hydrated Follow instructions from your health care provider about hydration, which may include: Up to 2 hours before the procedure you may continue to drink clear liquids, such as water, clear fruit juice, black coffee, and plain tea. Eating and drinking restrictions Follow instructions from your health care provider about eating and drinking, which may include: 8 hours before the procedure stop eating heavy meals or foods, such as meat, fried foods, or fatty foods. 6 hours before the procedure stop eating light meals or foods, such as toast or cereal. 6 hours before the procedure stop drinking milk or drinks that contain milk. 2 hours before the procedure stop drinking clear liquids. Medicines Ask your health care provider about: Changing or stopping your regular medicines. This is especially important if you are taking diabetes medicines or blood thinners. Taking medicines such as aspirin and ibuprofen. These medicines can thin your blood. Do not take these medicines unless your health care provider tells you to take them. Taking lpfr-tql-oxyfuzj medicines, vitamins, herbs, and supplements. Tests You may have tests, such as: Blood tests. Urine tests. Imaging tests, such as a CT scan. General instructions Plan to have someone take you home from the hospital or clinic. If you will be going home right after the procedure, plan to have someone with you for 24 hours. Ask your health care provider what steps will be taken to help prevent infection. These may includewashing skin with a germ-killing soap. What happens during the procedure? An IV will be inserted into one of your veins. You will be given one or more of the following: ?A medicine to help you relax (sedative). ?A medicine to make you fall asleep (general anesthetic). A water-filled cushion may be placed behind your kidney or on your abdomen. In some cases, you may be placed in a tub of lukewarm water. Your body will be positioned in a way that makes it easy to target the kidney stone. An X-ray or ultrasound exam will be done to locate your stone. Shock waves will be aimed at the stone. If you are awake, you may feel a tapping sensation as the shock waves pass through your body. A flexible tube with holes in it (stent) may be placed in the ureter. This will help keep urine flowing from the kidney if the fragments of the stone have been blocking the ureter. The procedure may vary among health care providers and hospitals. What happens after the procedure? You may have an X-ray to see whether the procedure was able to break up the kidney stone and how much of the stone has passed. If large stone fragments remain after treatment, you may need to have a second procedure at a later time. Your blood pressure, heart rate, breathing rate, and blood oxygen level will be monitored until youleave the hospital or clinic. You may be given antibiotics or pain medicine as needed. If a stent was placed in your ureter during surgery, it may stay in place for a few weeks. You may need to strain your urine to collect pieces of the kidney stone for testing. You will need to drink plenty of water. If you were given a sedative during the procedure, it can affect you for several hours. Do not drive or operate machinery until your health care provider says that it is safe. Summary Lithotripsy is a treatment that can help break up kidney stones that are too large to pass on theirown. Lithotripsy is a nonsurgical procedure that crushes a kidney stone with shock waves. Generally, this is a safe procedure. However, problems may occur, including damage to the kidney orother organs, infection, or obstruction of the tube that carries urine from the kidney to the bladder (ureter). You may have a stent placed in your ureter to help drain your urine. This stent may stay in place for a few weeks. After the procedure, you will need to drink plenty of water. You may be asked to strain your urine to collect pieces of the kidney stone for testing. This information is not intended to replace advice given to you by your health care provider. Make sure you discuss any questions you have with your health care provider. Document Revised: 01/27/2022 Document Reviewed: 11/04/2021 [employer] Patient Education 2022 [employer]. 10/28/2022 18:55:13 Laser Therapy for Kidney Stones, Care After Laser Therapy for Kidney Stones, Care After This sheet gives you information about how to care for yourself after your procedure. Your health care provider may also give you more specific instructions. If you have problems or questions, contact your health care provider. What can I expect after the procedure? After the procedure, it is common to have: Pain. A burning sensation while urinating. Small amounts of blood in your urine. A need to urinate frequently. Pieces of kidney stone in your urine. Mild discomfort when urinating that may be felt in the back. You may experience this if you have a flexible tube (stent) in your ureter. Follow these instructions at home: Medicines Take ypjj-bwg-myomftz and prescription medicines only as told by your health care provider. If you were prescribed an antibiotic medicine, take it as told by your health care provider. Do notstop taking the antibiotic even if you start to feel better. Ask your health care provider if the medicine prescribed to you: ?Requires you to avoid driving or using heavy machinery. ?Can cause constipation. You may need to take actions to prevent or treat constipation, such as: ?Take gtqg-jpj-jzdslpv or prescription medicines. ?Eat foods that are high in fiber, such as beans, whole grains, and fresh fruits and vegetables. ?Limit foods that are high in fat and processed sugars, such as fried or sweet foods. Activity Return to your normal activities as told by your health care provider. Ask your health care provider what activities are safe for you. Do not drive for 24 hours if you were given a sedative during your procedure. General instructions If your health care provider approves, you may take a warm bath to ease discomfort and burning. Drink enough fluid to keep your urine pale yellow. Your health care provider may recommend drinkingtwo 8 oz (237 mL) glasses of water per hour for a few hours after your procedure. You may be asked to strain your urine to collect any stone fragments that you pass. These fragmentsmay be tested. Keep all follow-up visits as told by your health care provider. This is important. If you have a stent, you will need to return to your health care provider to have the stent removed. Contact a health care provider if you: Have pain or a burning feeling that lasts more than 2 days. Feel nauseous. Vomit more and more often. Have difficulty urinating. Have pain that gets worse or does not get better with medicine. Get help right away if: You are unable to urinate, even if your bladder feels full. You have: ?Bright red blood or blood clots in your urine. ?More blood in your urine. ?Severe pain or discomfort. ?A fever or shaking chills. ?Abdominal pain. ?Difficulty breathing. ?Swelling in your legs. Summary After the procedure, it is common to have a burning sensation while urinating and small amounts of blood in your urine. Take vsqp-cuv-jrkzjfe and prescription medicines only as told by your health care provider. Drink enough fluid to keep your urine pale yellow. Keep all follow-up visits as told by your health care provider. This is important. This information is not intended to replace advice given to you by your health care provider. Make sure you discuss any questions you have with your health care provider. Document Revised: 11/04/2021 Document Reviewed: 11/04/2021 [employer] Patient Education 2022 [employer]. 10/28/2022 18:55:13 Kidney Stones, Clww-ct-Irlp Kidney Stones Kidney stones are rock-like masses that form inside of the kidneys. Kidneys are organs that make pee (urine). A kidney stone may move into other parts of the urinary tract, including: The tubes that connect the kidneys to the bladder (ureters). The bladder. The tube that carries urine out of the body (urethra). Kidney stones can cause very bad pain and can block the flow of pee. The stone usually leaves your body (passes) through your pee. You may need to have a doctor take out the stone. What are the causes? Kidney stones may be caused by: A condition in which certain glands make too much parathyroid hormone (primary hyperparathyroidism). A buildup of a type of crystals in the bladder made of a chemical called uric acid. The body makes uric acid when you eat certain foods. Narrowing (stricture) of one or both of the ureters. A kidney blockage that you were born with. Past surgery on the kidney or the ureters, such as gastric bypass surgery. What increases the risk? You are more likely to develop this condition if: You have had a kidney stone in the past. You have a family history of kidney stones. You do not drink enough water. You eat a diet that is high in protein, salt (sodium), or sugar. You are overweight or very overweight (obese). What are the signs or symptoms? Symptoms of a kidney stone may include: Pain in the side of the belly, right below the ribs (flank pain). Pain usually spreads (radiates) to the groin. Needing to pee often or right away (urgently). Pain when going pee (urinating). Blood in your pee (hematuria). Feeling like you may vomit (nauseous). Vomiting. Fever and chills. How is this treated? Treatment depends on the size, location, and makeup of the kidney stones. The stones will often pass out of the body through peeing. You may need to: Drink more fluid to help pass the stone. In some cases, you may be given fluids through an IV tube put into one of your veins at the hospital. Take medicine for pain. Make changes in your diet to help keep kidney stones from coming back. Sometimes, medical procedures are needed to remove a kidney stone. This may involve: A procedure to break up kidney stones using a beam of light (laser) or shock waves. Surgery to remove the kidney stones. Follow these instructions at home: Medicines Take ifdj-tqg-vwsifew and prescription medicines only as told by your doctor. Ask your doctor if the medicine prescribed to you requires you to avoid driving or using heavy machinery. Eating and drinking Drink enough fluid to keep your pee pale yellow. You may be told to drink at least 8 10 glasses of water each day. This will help you pass the stone. If told by your doctor, change your diet. This may include: ?Limiting how much salt you eat. ?Eating more fruits and vegetables. ?Limiting how much meat, poultry, fish, and eggs you eat. Follow instructions from your doctor about eating or drinking restrictions. General instructions Collect pee samples as told by your doctor. You may need to collect a pee sample: ?24 hours after a stone comes out. ?8 12 weeks after a stone comes out, and every 6 12 months after that. Strain your pee every time you pee (urinate), for as long as told. Use the strainer that your doctor recommends. Do not throw out the stone. Keep it so that it can be tested by your doctor. Keep all follow-up visits as told by your doctor. This is important. You may need follow-up tests. How is this prevented? To prevent another kidney stone: Drink enough fluid to keep your pee pale yellow. This is the best way to prevent kidney stones. Eat healthy foods. Avoid certain foods as told by your doctor. You may be told to eat less protein. Stay at a healthy weight. Where to find more information National Kid[employer] (NKF): www.kidney.org [facility] [facility] ([facility]): www.urologyhealth.org Contact a doctor if: You have pain that gets worse or does not get better with medicine. Get help right away if: You have a fever or chills. You get very bad pain. You get new pain in your belly (abdomen). You pass out (faint). You cannot pee. Summary Kidney stones are rock-like masses that form inside of the kidneys. Kidney stones can cause very bad pain and can block the flow of pee. The stones will often pass out of the body through peeing. Drink enough fluid to keep your pee pale yellow. This information is not intended to replace advice given to you by your health care provider. Make sure you discuss any questions you have with your health care provider. Document Revised: 11/04/2021 Document Reviewed: 11/04/2021 [employer] Patient Education 2022 [employer]. 10/28/2022 18:55:13 Flank Pain, Adult, Jrun-xx-Bxwa Flank Pain, Adult Flank pain is pain in your side. The flank is the area on your side between your upper belly (abdomen) and your spine. The pain may occur over a short time (acute), or it may be long-term or come back often (chronic). It may be mild or very bad. Pain in this area can be caused by many different things. Follow these instructions at home: Drink enough fluid to keep your pee (urine) pale yellow. Rest as told by your doctor. Take pbfh-tdq-kxmjvky and prescription medicines only as told by your doctor. Keep a journal to keep track of: ?What has caused your flank pain. ?What has made your flank pain feel better. Keep all follow-up visits. Contact a doctor if: Medicine does not help your pain. You have new symptoms. Your pain gets worse. Your symptoms last longer than 2 3 days. You have trouble peeing. You are peeing more often than normal. Get help right away if: You have trouble breathing. You are short of breath. Your belly hurts, or it is swollen or red. You feel like you may vomit (nauseous). You vomit. You feel faint, or you faint. You have blood in your pee. You have flank pain and a fever. These symptoms may be an emergency. Get help right away. Call your local emergency services (911 int [place] Do not wait to see if the symptoms will go away. Do not drive yourself to the hospital. Summary Flank pain is pain in your side. The flank is the area of your side between your upper belly (abdomen) and your spine. Flank pain may occur over a short time (acute), or it may be long-term or come back often (chronic). It may be mild or very bad. Pain in this area can be caused by many different things. Contact your doctor if your symptoms get worse or last longer than 2 3 days. This information is not intended to replace advice given to you by your health care provider. Make sure you discuss any questions you have with your health care provider. Document Revised: 05/13/2021 Document Reviewed: 05/13/2021 [employer] Patient Education 2022 [employer]. Follow Up Care 10/28/2022 15:05:36 With:Dallas MIRANDA Address: [facility] [address] [place] [address]- Business (1) When:10/31/2022 18:38:02 With:YANET CHAIREZ Address: [address] [place] [phone] Business (1) When:Within 3 Day(s) [facility]08-12-2023 Hospital Discharge instructions Patient Education 10/25/2022 12:11:07 Kidney Stones Kidney Stones Kidney stones are solid, rock-like deposits that form inside of the kidneys. The kidneys are a pairof organs that make urine. A kidney stone may form in a kidney and move into other parts of the urinary tract, including the tubes that connect the kidneys to the bladder (ureters), the bladder, and the tube that carries urine out of the body (urethra). As the stone moves through these areas, it can cause intense pain and block the flow of urine. Kidney stones are created when high levels of certain minerals are found in the urine. The stones are usually passed out of the body through urination, but in some cases, medical treatment may be needed to remove them. What are the causes? Kidney stones may be caused by: A condition in which certain glands produce too much parathyroid hormone (primary hyperparathyroidism), which causes too much calcium buildup in the blood. A buildup of uric acid crystals in the bladder (hyperuricosuria). Uric acid is a chemical that the body produces when you eat certain foods. It usually exits the body in the urine. Narrowing (stricture) of one or both of the ureters. A kidney blockage that is present at (congenital obstruction). Past surgery on the kidney or the ureters, such as gastric bypass surgery. What increases the risk? The following factors may make you more likely to develop this condition: Having had a kidney stone in the past. Having a family history of kidney stones. Not drinking enough water. Eating a diet that is high in protein, salt (sodium), or sugar. Being overweight or obese. What are the signs or symptoms? Symptoms of a kidney stone may include: Pain in the side of the abdomen, right below the ribs (flank pain). Pain usually spreads (radiates)to the groin. Needing to urinate frequently or urgently. Painful urination. Blood in the urine (hematuria). Nausea. Vomiting. Fever and chills. How is this diagnosed? This condition may be diagnosed based on: Your symptoms and medical history. A physical exam. Blood tests. Urine tests. These may be done before and after the stone passes out of your body through urination. Imaging tests, such as a CT scan, abdominal X-ray, or ultrasound. A procedure to examine the inside of the bladder (cystoscopy). How is this treated? Treatment for kidney stones depends on the size, location, and makeup of the stones. Kidney stones will often pass out of the body through urination. You may need to: Increase your fluid intake to help pass the stone. In some cases, you may be given fluids through an IV and may need to be monitored at the hospital. Take medicine for pain. Make changes in your diet to help prevent kidney stones from coming back. Sometimes, medical procedures are needed to remove a kidney stone. This may involve: A procedure to break up kidney stones using: ?A focused beam of light (laser therapy). ?Shock waves (extracorporeal shock wave lithotripsy). Surgery to remove kidney stones. This may be needed if you have severe pain or have stones that block your urinary tract. Follow these instructions at home: Medicines Take jzbn-ist-vbosunu and prescription medicines only as told by your health care provider. Ask your health care provider if the medicine prescribed to you requires you to avoid driving or using heavy machinery. Eating and drinking Drink enough fluid to keep your urine pale yellow. You may be instructed to drink at least 8 10 glasses of water each day. This will help you pass the kidney stone. If directed, change your diet. This may include: ?Limiting how much sodium you eat. ?Eating more fruits and vegetables. ?Limiting how much animal protein such as red meat, poultry, fish, and eggs you eat. Follow instructions from your health care provider about eating or drinking restrictions. General instructions Collect urine samples as told by your health care provider. You may need to collect a urine sample: ?24 hours after you pass the stone. ?8 12 weeks after passing the kidney stone, and every 6 12 months after that. Strain your urine every time you urinate, for as long as directed. Use the strainer that your health care provider recommends. Do not throw out the kidney stone after passing it. Keep the stone so it can be tested by your health care provider. Testing the makeup of your kidney stone may help prevent you from getting kidney stones in the future. Keep all follow-up visits as told by your health care provider. This is important. You may need follow-up X-rays or ultrasounds to make sure that your stone has passed. How is this prevented? To prevent another kidney stone: Drink enough fluid to keep your urine pale yellow. This is the best way to prevent kidney stones. Eat a healthy diet and follow recommendations from your health care provider about foods to avoid. You may be instructed to eat a low-protein diet. Recommendations vary depending on the type of kidney stone that you have. Maintain a healthy weight. Where to find more information National Kidney Foundation (NKF): www.kidney.org [facility] (UCF): www.urologyhealth.org Contact a health care provider if: You have pain that gets worse or does not get better with medicine. Get help right away if: You have a fever or chills. You develop severe pain. You develop new abdominal pain. You faint. You are unable to urinate. Summary Kidney stones are solid, rock-like deposits that form inside of the kidneys. Kidney stones can cause nausea, vomiting, blood in the urine, abdominal pain, and the urge to urinate frequently. Treatment for kidney stones depends on the size, location, and makeup of the stones. Kidney stones will often pass out of the body through urination. Kidney stones can be prevented by drinking enough fluids, eating a healthy diet, and maintaining a healthy weight. This information is not intended to replace advice given to you by your health care provider. Make sure you discuss any questions you have with your health care provider. Document Revised: 11/20/2021 Document Reviewed: 11/04/2021 [employer] Patient Education 2022 [employer]. 10/25/2022 12:11:07 Nonspecific Chest Pain, Adult, Yhbi-ie-Dozc Nonspecific Chest Pain Chest pain can be caused by many different conditions. Some causes of chest pain can be life-threatening. These will require treatment right away. Serious causes of chest pain include: Heart attack. A tear in the body's main blood vessel. Redness and swelling (inflammation) around your heart. Blood clot in your lungs. Other causes of chest pain may not be so serious. These include: Heartburn. Anxiety or stress. Damage to bones or muscles in your chest. Lung infections. Chest pain can feel like: Pain or discomfort in your chest. Crushing, pressure, aching, or squeezing pain. Burning or tingling. Dull or sharp pain that is worse when you move, cough, or take a deep breath. Pain or discomfort that is also felt in your back, neck, jaw, shoulder, or arm, or pain that spreads to any of these areas. It is hard to know whether your pain is caused by something that is serious or something that is not so serious. So it is important to see your doctor right away if you have chest pain. Follow these instructions at home: Medicines Take kqbe-kfd-xitsbif and prescription medicines only as told by your doctor. If you were prescribed an antibiotic medicine, take it as told by your doctor. Do not stop taking the antibiotic even if you start to feel better. Lifestyle Rest as told by your doctor. Do not use any products that contain nicotine or tobacco, such as cigarettes, e- cigarettes, and chewing tobacco. If you need help quitting, ask your doctor. Do not drink alcohol. Make lifestyle changes as told by your doctor. These may include: ?Getting regular exercise. Ask your doctor what activities are safe for you. ?Eating a heart-healthy diet. A diet and food and nutrition services supervisor (dietitian) can help you to learn healthy eating options. ?Staying at a healthy weight. ?Treating diabetes or high blood pressure, if needed. ?Lowering your stress. Activities such as yoga and relaxation techniques can help. General instructions Pay attention to any changes in your symptoms. Tell your doctor about them or any new symptoms. Avoid any activities that cause chest pain. Keep all follow-up visits as told by your doctor. This is important. You may need more testing if your chest pain does not go away. Contact a doctor if: Your chest pain does not go away. You feel depressed. You have a fever. Get help right away if: Your chest pain is worse. You have a cough that gets worse, or you cough up blood. You have very bad (severe) pain in your belly (abdomen). You pass out (faint). You have either of these for no clear reason: ?Sudden chest discomfort. ?Sudden discomfort in your arms, back, neck, or jaw. You have shortness of breath at any time. You suddenly start to sweat, or your skin gets clammy. You feel sick to your stomach (nauseous). You throw up (vomit). You suddenly feel lightheaded or dizzy. You feel very weak or tired. Your heart starts to beat fast, or it feels like it is skipping beats. These symptoms may be an emergency. Do not wait to see if the symptoms will go away. Get medical help right away. Call your local emergency services (911 in the [place] Do not drive yourself to the hospital. Summary Chest pain can be caused by many different conditions. The cause may be serious and need treatment right away. If you have chest pain, see your doctor right away. Follow your doctor's instructions for taking medicines and making lifestyle changes. Keep all follow-up visits as told by your doctor. This includes visits for any further testing if your chest pain does not go away. Be sure to know the signs that show that your condition has become worse. Get help right away if you have these symptoms. This information is not intended to replace advice given to you by your health care provider. Make sure you discuss any questions you have with your health care provider. Document Revised: 05/16/2021 Document Reviewed: 05/16/2021 [employer] Patient Education 2022 [employer]. Follow Up Care 10/25/2022 09:30:56 With:Koko Vasquez Address: [address] [place] [address]- Business (1) When:10/28/2022 11:22:14 With:Dallas MIRANDA Address: [facility] [address] [place] [address]- Business (1) When:10/28/2022 11:22:13 With:YANET CHAIREZ Address: [address] [place] [phone] Business (1) When:10/28/2022 11:22:02 Comments:Follow-up with your primary care provider in 3 to 5 days. If symptoms worsen, do not improve, or new symptoms arise please report back to emergency department for further evaluation. [facility]08-12-2023 Evaluation + Plan note Diagnostic Tests Pending * HgbA1c 10/25/22 [facility]12-20-2022 Hospital Discharge instructions Patient Education 03/04/2022 20:32:49 Nonspecific Chest Pain, Adult Nonspecific Chest Pain, Adult Chest pain can be caused by many different conditions. It can be caused by a condition that is life-threatening and requires treatment right away. It can also be caused by something that is not life-threatening. If you have chest pain, it can be hard to know the difference, so it is important to get help right away to make sure that you do not have a serious condition. Some life-threatening causes of chest pain include: Heart attack. A tear in the body's main blood vessel (aortic dissection). Inflammation around your heart (pericarditis). A problem in the lungs, such as a blood clot (pulmonary embolism) or a collapsed lung (pneumothorax). Some non life-threatening causes of chest pain include: Heartburn. Anxiety or stress. Damage to the bones, muscles, and cartilage that make up your chest wall. Pneumonia or bronchitis. Shingles infection (varicella-zoster virus). Chest pain can feel like: Pain or discomfort on the surface of your chest or deep in your chest. Crushing, pressure, aching, or squeezing pain. Burning or tingling. Dull or sharp pain that is worse when you move, cough, or take a deep breath. Pain or discomfort that is also felt in your back, neck, jaw, shoulder, or arm, or pain that spreads to any of these areas. Your chest pain may come and go. It may also be constant. Your health care provider will do lab tests and other studies to find the cause of your pain. Treatment will depend on the cause of your chest pain. Follow these instructions at home: Medicines Take ebda-gch-iddfebg and prescription medicines only as told by your health care provider. If you were prescribed an antibiotic, take it as told by your health care provider. Do not stop taking the antibiotic even if you start to feel better. Lifestyle Rest as directed by your health care provider. Do not use any products that contain nicotine or tobacco, such as cigarettes and e-cigarettes. If you need help quitting, ask your health care provider. Do not drink alcohol. Make healthy lifestyle choices as recommended. These may include: ?Getting regular exercise. Ask your health care provider to suggest some activities that are safe for you. ?Eating a heart-healthy diet. This includes plenty of fresh fruits and vegetables, whole grains, low-fat (lean) protein, and low-fat dairy products. A dietitian can help you find healthy eating options. ?Maintaining a healthy weight. ?Managing any other health conditions you have, such as high blood pressure (hypertension) or diabetes. ?Reducing stress, such as with yoga or relaxation techniques. General instructions Pay attention to any changes in your symptoms. Tell your health care provider about them or any newsymptoms. Avoid any activities that cause chest pain. Keep all follow-up visits as told by your health care provider. This is important. This includes visits for any further testing if your chest pain does not go away. Contact a health care provider if: Your chest pain does not go away. You feel depressed. You have a fever. Get help right away if: Your chest pain gets worse. You have a cough that gets worse, or you cough up blood. You have severe pain in your abdomen. You faint. You have sudden, unexplained chest discomfort. You have sudden, unexplained discomfort in your arms, back, neck, or jaw. You have shortness of breath at any time. You suddenly start to sweat, or your skin gets clammy. You feel nausea or you vomit. You suddenly feel lightheaded or dizzy. You have severe weakness, or unexplained weakness or fatigue. Your heart begins to beat quickly, or it feels like it is skipping beats. These symptoms may represent a serious problem that is an emergency. Do not wait to see if the symptoms will go away. Get medical help right away. Call your local emergency services (911 in the [place] Do not drive yourself to the hospital. Summary Chest pain can be caused by a condition that is serious and requires urgent treatment. It may also be caused by something that is not life-threatening. If you have chest pain, it is very important to see your health care provider. Your health care provider may do lab tests and other studies to find the cause of your pain. Follow your health care provider's instructions on taking medicines, making lifestyle changes, and getting emergency treatment if symptoms become worse. Keep all follow-up visits as told by your health care provider. This includes visits for any further testing if your chest pain does not go away. This information is not intended to replace advice given to you by your health care provider. Make sure you discuss any questions you have with your health care provider. Document Released: 12/10/2005 Document Revised: 09/02/2018 Document Reviewed: 09/02/2018 [employer] Patient Education 2020 [employer]. Follow Up Care 03/04/2022 18:23:11 With:YANET CHAIREZ Address: [address] [place] [phone] Business (1) When:03/06/2022 20:05:36 [facility]12-20-2022 Evaluation + Plan noteExtracted from: Title:ED Note Author:Kevin Nur DO Date :03/04/22 Chest pain (R07.9: Chest courtney n, unspecified) Orders: alprazolam, 1 mg = 1 tab(s), Tab, Oral, Once, Stop date 03/04/22 19:57:00 EST, STAT, Start date 03/04/22 19:57:00 EST, 03/04/22 19:57:00 EST ketorolac, 15 mg = 1 mL, Injection, IV Push, Once, Stop date 03/04/22 19:33:00 EST, STAT, Start date 03/04/22 19:33:00 EST, 03/04/22 19:33:00 EST ondansetron, 4 mg = 2 mL, Injection, IV Push, Once, Stop date 03/04/22 19:33:00 EST, STAT, Start date 03/04/22 19:33:00 EST, 03/04/22 19:33:[address] [facility]10-14-2022 Evaluation + Plan noteExtracted from: Title:ED Note Author:Janes Bowles DO Date :12/27/21 Flank pain (R10.9: Unspecifi ed abdominal pain) Orders: ketorolac, 30 mg = 1 mL, Injection, IV Push, Once, Stop date 12/27/21 2:18:00 EDT, STAT, Start date 12/27/21 2:18:00 EDT, 12/27/21 2:18:00 EDT morphine, 4 mg = 2 mL, Injection, IV Push, Once, Stop date 12/27/21 2:59:00 EDT, STAT, Start date 12/27/21 2:59:00 EDT, 12/27/21 2:59:00 EDT naproxen, 500 mg = 1 tab(s), Oral, BID, PRN for pain, # 20 tab(s), Refills(s) 0, Pharmacy: [facility]/pharmacy #[id number], 162, cm, 12/27/21 2:03:00 EDT, Height/Length Dosing, 118, kg, 12/27/21 2:03:00 EDT, Weight Dosing ondansetron, 4 mg = 1 tab(s), Oral, q8hr, PRN Nausea/Vomiting, # 12 tab(s), Refills(s) 0, Pharmacy: [facility]/pharmacy #[id number], 162, cm, 12/27/21 2:03:00 EDT, Height/Length Dosing, 118, kg, 12/27/21 2:03:00 EDT, Weight Dosing ondansetron, 4 mg = 2 mL, Injection, IV Push, Once, Stop date 12/27/21 2:18:00 EDT, STAT, Start date 12/27/21 2:18:00 EDT, 12/27/21 2:18:00 EDT Sodium Chloride 0.9% intravenous solution, Soln-IV, Misc, Once, Stop date 12/27/21 2:20:37 EDT, Physician Stop, 12/27/21 2:20:37 EDT Sodium Chloride 0.9% intravenous solution, 1,000 mL, Soln-IV, IV, Once, Stop date 12/27/21 2:18:00 EDT, STAT, Start date 12/27/21 2:18:00 EDT, Infuse over 61, minute(s) Automated Diff Basic Metabolic Panel CBC w/ Auto Diff CT Abdomen/Pelvis w/o Contrast eGFR Extra Blue Tube Extra SST Tube Hepatic Function Panel UA With Cult Reflex Future Appointments Appointment Date:01/01/2022 10:00:00 AM Scheduled Provider: Location:.[facility] Appointment Type:CT Sinus/Orbits/Maxillofacial (FT) Future Scheduled Tests Radiology* CT Maxillofacial w/o Contrast 01/01/22 [facility]10-14-2022 Hospital Discharge instructions Patient Education 12/27/2021 03:52:01 Abdominal Pain, Adult, Hbvr-yt-Iqkk Abdominal Pain, Adult Many things can cause belly (abdominal) pain. Most times, belly pain is not dangerous. Many cases of belly pain can be watched and treated at home. Sometimes, though, belly pain is serious. Your doctor will try to find the cause of your belly pain. Follow these instructions at home: Medicines Take slyy-xov-nlalhlt and prescription medicines only as told by your doctor. Do not take medicines that help you poop (laxatives) unless told by your doctor. General instructions Watch your belly pain for any changes. Drink enough fluid to keep your pee (urine) pale yellow. Keep all follow-up visits as told by your doctor. This is important. Contact a doctor if: Your belly pain changes or gets worse. You are not hungry, or you lose weight without trying. You are having trouble pooping (constipated) or have watery poop (diarrhea) for more than 2 3 days. You have pain when you pee or poop. Your belly pain wakes you up at night. Your pain gets worse with meals, after eating, or with certain foods. You are vomiting and cannot keep anything down. You have a fever. You have blood in your pee. Get help right away if: Your pain does not go away as soon as your doctor says it should. You cannot stop vomiting. Your pain is only in areas of your belly, such as the right side or the left lower part of the belly. You have bloody or black poop, or poop that looks like tar. You have very bad pain, cramping, or bloating in your belly. You have signs of not having enough fluid or water in your body (dehydration), such as: ?Dark pee, very little pee, or no pee. ?Cracked lips. ?Dry mouth. ?Sunken eyes. ?Sleepiness. ?Weakness. You have trouble breathing or chest pain. Summary Many cases of belly pain can be watched and treated at home. Watch your belly pain for any changes. Take kypa-lmt-ruhacdy and prescription medicines only as told by your doctor. Contact a doctor if your belly pain changes or gets worse. Get help right away if you have very bad pain, cramping, or bloating in your belly. This information is not intended to replace advice given to you by your health care provider. Make sure you discuss any questions you have with your health care provider. Document Released: 08/18/2008 Document Revised: 07/11/2019 Document Reviewed: 07/11/2019 [employer] Patient Education 2020 [employer] Follow Up Care 12/27/2021 01:56:39 With:YANET CHAIREZ Address: [address] [place] [address] [phone] Business (1) When:12/30/2021 Comments:You can use the naproxen every 12 hours and the Zofran every 6 hours as needed for nausea and vomiting. Please follow-up with your primary care doctor in the next 2 to 3 days. Please return the ED for any new or worsening symptoms. [facility]07-28-2022 Evaluation + Plan noteExtracted from: Title:Discharge Note Author:TERRI HERRERA, Mila Landrum ate:10/10/21 Discharged to - Home independently Transported by, Anticipated - Family Discharge Diet(s): Calorie Controlled- 1800 Calorie Diet, Low Sodium- 2000 mg (10/10/21 08:43:00) Prescriptions albuterol HFA 90 mcg/inh MDI, 2 puff(s), Inhalation, QID, PRN, Not taking atorvastatin 80 mg Tab, 80 mg= 1 tab(s), Oral, Daily isosorbide mononitrate 30 mg ER Tab, 30 mg= 1 tab(s), Oral, qAM nitroglycerin 0.4% rectal ointment, See Instructions Percocet 325 mg-5 mg Tab, 1 tab(s), Oral, q6hr, PRN Ranexa 500 mg Tab-ER, 500 mg= 1 tab(s), Oral, BID, 1 refills Zofran 4 mg Tab, 4 mg= 1 tab(s), Oral, q8hr, PRN Home aspirin 81 mg Chew Tab, 81 mg= 1 tab(s), Chewed, Daily Effexor XR 150 mg Cap-ER, 150 mg= 1 cap(s), Oral, Daily Effexor XR 75 mg Cap-ER, 75 mg= 1 cap(s), Oral, Daily gabapentin 300 mg Cap, 300 mg= 1 cap(s), Oral, TID Jardiance 25 mg oral tablet, 25 mg= 1 tab(s), Oral, qAM Lantus Solostar Pen 100 units/mL subcutaneous solution losartan 25 mg Tab, 25 mg= 1 tab(s), Oral, Bedtime MetFORMIN (Eqv-Glucophage XR) 500 mg oral tablet, extended release, 1000 mg= 2 tab(s), Oral, BID Metoprolol tartrate 25 mg Tab, 25 mg= 1 tab(s), Oral, BID Ozempic Plavix 75 mg Tab, 75 mg= 1 tab(s), Oral, Daily Xanax 1 mg Tab, 1 mg= 1 tab(s), Oral, BID, PRN, Still taking, not as prescribed: 1 mg TID With When Contact Information Koko Vasquez 10/22/2021 11:00 AM EDT [address] [place] [address]- Business (1) Additional Instructions: Appointment with Dorothy Almanzar, FAIZAN CAHIREZ 10/21/2021 08:00 PM EDT [address] [place] [address] Business (1) Additional Instructions: Chest Wall Pain, [id number] Extracted from: Title:Consult Note Author:Pedro HERRERA, Lesley Scott Date:10/10/21 40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 Does have CAD and prior stent however in the setting without any elevation in troponin and no EKG changes and clear-cut issues with anxiety the patient is tearful crying stating that her mother in her 40s of CAD it seems there is significant overlay. Recommend medical therapy with addition of isosorbide and Ranexa and the patient may follow-up as an outpatient in our office. Thank for the consult 1. Chest pain in adult (R07.9: Chest pain, unspecified) 2. Anxiety (F41.9: Anxiety disorder, unspecified) 3. Coronary artery disease (I25.10: Atherosclerotic heart disease of [place] coronary artery without angina pectoris) 4. Diabetes (E11.9: Type 2 diabetes mellitus without complications) 5. HTN (hypertension) (I10: Essential (primary) hypertension) 6. History of KS (myocardial infarction) (I25.2: Old myocardial infarction) 7. Hyperlipidemia (E78.5: Hyperlipidemia, unspecified) 8. Smoker (F17.200: Nicotine dependence, unspecified, uncomplicated) 9. TRUONG on CPAP (G47.33: Obstructive sleep apnea (adult) (pediatric)) 10. Morbid obesity (E66.01: Morbid (severe) obesity due to excess calories) 11. DVT prophylaxis (Z29.9: Encounter for prophylactic measures, unspecified) Dependence on other enabling machines and devices (Z99.89: Dependence on other enabling machines and devices) Extracted from: Title:APSO Note Author:TERRI HERRERA, Jinnyanefo Date: 40-year-old morbidly obese C aucasian female cigarette smoker with history of coronary artery disease, KS, status post stent x2, obstructive sleep apnea, hypertension, anxiety, diabetes mellitus presented with complaints of left chest pain x1 day radiating to the neck, nausea, vomiting and admitted with chest pain to rule out acute coronary syndrome. 1. Chest pain in adult (R07.9: Chest pain, unspecified) Chest pain likely secondary to chest wall syndrome. Acute coronary syndrome ruled out with negative serial cardiac enzymes. Continue on as needed pain medications and topical Lidoderm patch. Cardiology consulted. Ordered: ketorolac, 30 mg = 1 mL, Injection, IV Push, Once, Stop date 10/09/21 18:00:00 EDT, Routine, Start date 10/09/21 18:00:00 EDT, 10/09/21 17:01:00 EDT ketorolac, 15 mg = 1 mL, Injection, IV Push, q6hr PRN Pain for 5 day(s), Stop date 10/14/21 17:00:00 EDT, Routine, Start date 10/09/21 17:01:00 EDT, 10/09/21 17:01:00 EDT lidocaine topical, 1 patch(es), Patch, TransDermal, Daily, Routine, Start date 10/10/21 9:00:00 EDT, Left ant chest wall lidocaine topical, 1 patch(es), Patch, TransDermal, Once, Stop date 10/09/21 18:00:00 EDT, Routine, Start date 10/09/21 18:00:00 EDT, Ant Left chest wall Observation Care Discharge Day 2. Anxiety (F41.9: Anxiety disorder, unspecified) Likely contributing to above. Continue on Xanax. Ordered: Observation Care Discharge Day 3. Coronary artery disease (I25.10: Atherosclerotic heart disease of [place] coronary artery without angina pectoris) Status post stents x2. Continue on aspirin, Plavix, metoprolol and Lipitor. Ordered: Observation Care Discharge Day 4. Diabetes (E11.9: Type 2 diabetes mellitus without complications) Continue on insulin and metformin. Ordered: 5. HTN (hypertension) (I10: Essential (primary) hypertension) On metoprolol and losartan. 6. History of KS (myocardial infarction) (I25.2: Old myocardial infarction) Historical. 7. Hyperlipidemia (E78.5: Hyperlipidemia, unspecified) On Lipitor. 8. Smoker (F17.200: Nicotine dependence, unspecified, uncomplicated) Recommend cessation. On nicotine patch. Ordered: nicotine, 14 mg, 1 patch(es), Patch-ER, TransDermal, Daily, STAT, Start date 10/09/21 17:01:00 EDT 9. TRUONG on CPAP (G47.33: Obstructive sleep apnea (adult) (pediatric)) Supportive care. 10. Morbid obesity (E66.01: Morbid (severe) obesity due to excess calories) Recommend therapeutic lifestyle modification changes. 11. DVT prophylaxis (Z29.9: Encounter for prophylactic measures, unspecified) Lovenox. Disposition: Home soon pending cardiology evaluation. Extracted from: Title:Admission H & P Author:TERRI HERRERA, Mila Date:10/09/21 40-year-old morbidly obese C aucasian female cigarette smoker with history of coronary artery disease, KS, status post stent x2, obstructive sleep apnea, hypertension, anxiety, diabetes mellitus presented with complaints of left chest pain x1 day radiating to the neck, nausea, vomiting and is being admitted with chest pain to rule out acute coronary syndrome. 1. Chest pain in adult (R07.9: Chest pain, unspecified) Chest pain chest wall syndrome. Rule out acute coronary syndrome. Admit to regular medical floor. Reviewed labs so far cardiac enzymes negative. We will complete serial cardiac enzymes. EKG sinus tachycardia with no acute ischemic changes. Started patient on ketorolac and topical Lidoderm. If cardiac enzymes are negative will discharge patient. Patient recently had cardiac catheterization within normal limits. Ordered: ketorolac, 30 mg = 1 mL, Injection, IV Push, Once, Stop date 10/09/21 18:00:00 EDT, Routine, Start date 10/09/21 18:00:00 EDT, 10/09/21 17:01:00 EDT ketorolac, 15 mg = 1 mL, Injection, IV Push, q6hr PRN Pain for 5 day(s), Stop date 10/14/21 17:00:00 EDT, Routine, Start date 10/09/21 17:01:00 EDT, 10/09/21 17:01:00 EDT lidocaine topical, 1 patch(es), Patch, TransDermal, Daily, Routine, Start date 10/10/21 9:00:00 EDT, Left ant chest wall lidocaine topical, 1 patch(es), Patch, TransDermal, Once, Stop date 10/09/21 18:00:00 EDT, Routine, Start date 10/09/21 18:00:00 EDT, Ant Left chest wall Initial Observation Care/Day Moderate 50 min 90597 2. Anxiety (F41.9: Anxiety disorder, unspecified) May be contributing to above. Continue on Xanax as needed. Ordered: Initial Observation Care/Day Moderate 50 min 88483 3. Coronary artery disease (I25.10: Atherosclerotic heart disease of [place] coronary artery without angina pectoris) Status post KS status post stents x2. Continue on aspirin, Plavix, Lipitor and metoprolol. Ordered: Initial Observation Care/Day Moderate 50 min [id number] 4. Diabetes (E11.9: Type 2 diabetes mellitus without complications) Continue on Lantus and metformin. Started patient on sliding scale insulin. Ordered: Initial Observation Care/Day Moderate 50 min [id number] 5. HTN (hypertension) (I10: Essential (primary) hypertension) Continue on metoprolol, losartan. 6. History of KS (myocardial infarction) (I25.2: Old myocardial infarction) Historical. 7. Hyperlipidemia (E78.5: Hyperlipidemia, unspecified) Continue on Lipitor. 8. Smoker (F17.200: Nicotine dependence, unspecified, uncomplicated) Recommend cessation. Nicotine patch. Ordered: nicotine, 14 mg, 1 patch(es), Patch-ER, TransDermal, Daily, STAT, Start date 10/09/21 17:01:00 EDT 9. TRUONG on CPAP (G47.33: Obstructive sleep apnea (adult) (pediatric)) Supportive care. 10. Morbid obesity (E66.01: Morbid (severe) obesity due to excess calories) Recommend therapeutic lifestyle modification changes. 11. DVT prophylaxis (Z29.9: Encounter for prophylactic measures, unspecified) Lovenox. Disposition: The patient will be admitted under observation status and anticipate she will require less than 2 midnight hospital stay for the treatment of above chest pain. Dependence on other enabling machines and devices (Z99.89: Dependence on other enabling machines and devices) Orders: acetaminophen, 650 mg = 2 tab(s), Tab, Oral, q6hr PRN Pain, Routine, Start date 10/09/21 17:10:00 EDT, 10/09/21 17:10:00 EDT alprazolam, 1 mg = 1 tab(s), Tab, Oral, BID PRN Anxiety, Routine, Start date 10/09/21 17:15:00 EDT, 10/09/21 17:15:00 EDT aspirin, 81 mg = 1 tab(s), Tab-EC, Oral, Daily, Routine, Start date 10/10/21 9:00:00 EDT, 10/09/21 17:10:00 EDT atorvastatin, 80 mg = 2 tab(s), Tab, Oral, Daily, Routine, Start date 10/10/21 9:00:00 EDT, 10/09/21 17:14:00 EDT clopidogrel, 75 mg = 1 tab(s), Tab, Oral, Daily, Routine, Start date 10/10/21 9:00:00 EDT, 10/09/21 17:13:00 EDT diphenhydrAMINE, 25 mg = 1 cap(s), Cap, Oral, q6hr PRN Itching, Routine, Start date 10/09/21 17:10:00 EDT, 10/09/21 17:10:00 EDT enoxaparin, 40 mg = 0.4 mL, Injection, SubCutaneous, Daily, Routine, Start date 10/10/21 9:00:00 EDT, 10/09/21 17:10:00 EDT gabapentin, 300 mg = 1 cap(s), Cap, Oral, TID, Routine, Start date 10/09/21 22:00:00 EDT, 10/09/21 17:13:00 EDT glucose, 50 mL, Soln-IV, IV Push, Once PRN Blood glucose, STAT, Start date 10/09/21 17:08:00 EDT hydrALAZINE, 10 mg = 0.5 mL, Injection, IV Push, q6hr PRN Other (see comment), Routine, Start date 10/09/21 17:10:00 EDT, 10/09/21 17:10:00 EDT insulin lispro, 0-10 Units, Injection-Insulin, SubCutaneous, QIDACHS, Routine, Start date 10/09/21 21:00:00 EDT losartan, 25 mg = 0.5 tab(s), Tab, Oral, Bedtime, Routine, Start date 10/09/21 21:00:00 EDT, 10/09/21 17:13:00 EDT metformin, 1,000 mg = 2 tab(s), Tab, Oral, BID, Routine, Start date 10/09/21 21:00:00 EDT, 10/09/21 17:14:00 EDT metoclopramide, 10 mg = 2 mL, Injection, IV Push, Once, Stop date 10/09/21 18:00:00 EDT, Routine, Start date 10/09/21 18:00:00 EDT, 10/09/21 17:02:00 EDT metoprolol, 25 mg = 1 tab(s), Tab, Oral, BID, Routine, Start date 10/09/21 21:00:00 EDT, 10/09/21 17:14:00 EDT Misc Prescription, Jardiance 25 mg oral tablet, Oral, qAM, Routine, Start date 10/10/21 7:30:00 EDT morphine, 2 mg = 1 mL, Injection, IV Push, q4hr PRN Pain for 5 day(s), Stop date 10/14/21 17:09:00 EDT, Routine, Start date 10/09/21 17:10:00 EDT, 10/09/21 17:10:00 EDT ondansetron, 4 mg = 2 mL, Injection, IV Push, q6hr PRN Nausea, Routine, Start date 10/09/21 17:10:00 EDT, 10/09/21 17:10:00 EDT pantoprazole, 40 mg = 10 mL, Injection, IV Push, Daily, Routine, Start date 10/10/21 9:00:00 EDT, 10/09/21 17:15:00 EDT pantoprazole, 40 mg = 10 mL, Injection, IV Push, Once, Stop date 10/09/21 18:00:00 EDT, Routine, Start date 10/09/21 18:00:00 EDT, 10/09/21 17:15:00 EDT remove patch, 1 patch(es), Patch, Topical, Bedtime, 10/10/21 0:00:00 EDT remove patch, 1 patch(es), Patch, Topical, Daily, 10/10/21 9:00:00 EDT venlafaxine, 75 mg = 1 cap(s), Cap-ER, Oral, Daily, Routine, Start date 10/10/21 9:00:00 EDT, 10/09/21 17:15:00 EDT venlafaxine, 150 mg = 1 cap(s), Cap-ER, Oral, Daily, Routine, Start date 10/10/21 9:00:00 EDT, 10/09/21 17:15:00 EDT zolpidem, 5 mg = 1 tab(s), Tab, Oral, Bedtime PRN Sleep, Routine, Start date 10/09/21 17:10:00 EDT, 10/09/21 17:10:00 EDT Cardiac Monitoring Chest Pain, AMI Quality Measures Communication Order Diabetic/Calorie Control Diet HgbA1c Hypoglycemia Protocol Responsive Patient Hypoglycemia Protocol Unresponsive Patient Lipid Panel Oxygen Protocol Place in Status Pulse Oximetry Resuscitation Status - Full Routine Capillary Glucose POC Up ad Renea Vital Signs Weight Extracted from: Title:ED Note Author:Phoebe Dubon PA-C Date :10/09/21 1. Chest pain in adult (R07. 9: Chest pain, unspecified) 2. Anxiety (F41.9: Anxiety disorder, unspecified) 3. Coronary artery disease (I25.10: Atherosclerotic heart disease of [place] coronary artery without angina pectoris) 4. Diabetes (E11.9: Type 2 diabetes mellitus without complications) 5. HTN (hypertension) (I10: Essential (primary) hypertension) 6. History of KS (myocardial infarction) (I25.2: Old myocardial infarction) 7. Hyperlipidemia (E78.5: Hyperlipidemia, unspecified) 8. Smoker (F17.200: Nicotine dependence, unspecified, uncomplicated) Orders: lorazepam, 1 mg = 1 tab(s), Tab, Oral, Once, Stop date 10/09/21 15:59:00 EDT, STAT, Start date 10/09/21 15:59:00 EDT, 10/09/21 15:59:00 EDT lorazepam, 1 mg = 1 tab(s), Tab, Oral, Once, Stop date 10/09/21 14:49:00 EDT, STAT, Start date 10/09/21 14:49:00 EDT, 10/09/21 14:49:00 EDT lorazepam, 1 mg = 1 tab(s), Tab, Oral, Once, Stop date 10/09/21 14:35:00 EDT, STAT, Start date 10/09/21 14:35:00 EDT, 10/09/21 14:35:00 EDT ondansetron, 4 mg = 2 mL, Injection, IV Push, Once, Stop date 10/09/21 14:35:00 EDT, STAT, Start date 10/09/21 14:35:00 EDT, 10/09/21 14:35:00 EDT Automated Diff B-Type Natriuretic Peptide CBC w/ Auto Diff Comprehensive Metabolic Panel ED Cardiac Monitoring ED Physician consult Hospitalist for continued care eGFR Extra SST Tube Magnesium Level PT & PTT Rapid COVID Antigen ([facility]) Saline Lock Insert Troponin 0 Hr. Troponin 3 Hr. Troponin 6 Hr. Troponin 9 Hr. XR Chest Single View Future Appointments Appointment Date:10/22/2021 11:00:00 AM Scheduled Provider:Dorothy ALMANZAR CNP Location:.[facility] Appointment Type:Cardiology Inpatient Follow Up (FT) [facility]07-28-2022 Hospital Discharge instructions Patient Education 10/10/2021 10:33:41 Chest Wall Pain, [id number] Chest Wall Pain Chest wall pain is pain in or around the bones and muscles of your chest. Chest wall pain may be caused by: An injury. Coughing a lot. Using your chest and arm muscles too much. Sometimes, the cause may not be known. This pain may take a few weeks or longer to get better. Follow these instructions at home: Managing pain, stiffness, and swelling If told, put ice on the painful area: Put ice in a plastic bag. Place a towel between your skin and the bag. Leave the ice on for 20 minutes, 2 3 times a day. Activity Rest as told by your doctor. Avoid doing things that cause pain. This includes lifting heavy items. Ask your doctor what activities are safe for you. General instructions Take zqqh-dwr-[id number] and prescription medicines only as told by your doctor. Do not use any products that contain nicotine or tobacco, such as cigarettes, e- cigarettes, and chewing tobacco. If you need help quitting, ask your doctor. Keep all follow-up visits as told by your doctor. This is important. Contact a doctor if: You have a fever. Your chest pain gets worse. You have new symptoms. Get help right away if: You feel sick to your stomach (nauseous) or you throw up (vomit). You feel sweaty or light-headed. You have a cough with mucus from your lungs (sputum) or you cough up blood. You are short of breath. These symptoms may be an emergency. Do not wait to see if the symptoms will go away. Get medical help right away. Call your local emergency services (911 in the [place] Do not drive yourself to the hospital. Summary Chest wall pain is pain in or around the bones and muscles of your chest. It may be treated with ice, rest, and medicines. Your condition may also get better if you avoid doing things that cause pain. Contact a doctor if you have a fever, chest pain that gets worse, or new symptoms. Get help right away if you feel light-headed or you get short of breath. These symptoms may be an emergency. This information is not intended to replace advice given to you by your health care provider. Make sure you discuss any questions you have with your health care provider. Document Released: 08/18/2008 Document Revised: 09/02/2018 Document Reviewed: 09/02/2018 [employer] Patient Education 2020 [employer]. Follow Up Care 10/09/2021 14:07:15 With:YANET CHAIREZ Address: [address] [place] [address] Business (1) When:10/21/2021 20:00:00 With:Koko Vasquez Address: [address] [place] [address]- Business (1) When:10/22/2021 11:00:00 Comments:Appointment with Dorothy Almanzar CNP [facility]06-08-2022 NotePROCEDURE: XR ANKLE LT MIN 3 V, XR FOOT LT MIN 3 VIEWS COMPARISON: None. HISTORY: Pain of left ankle joint FINDINGS: BONES:No acute fracture or dislocation to the foot or ankle. Mild mild joint space narrowing marginal osteophyte formation first metatarsal-phalangeal joint. Mild enthesopathic spurring of the calcaneus at the Achilles insertion SOFT TISSUES:Mild bimalleolar soft tissue swelling and dorsal forefoot swelling EFFUSION:None visible. OTHER: Negative. IMPRESSION: Mild tissue swelling No acute fracture of the foot or ankle Electronically authenticated by: ERUM DE LA CRUZ Date: 2021-08-21 17:19[facility]06-08-2022 NotePROCEDURE: XR ANKLE LT MIN 3 V, XR FOOT LT MIN 3 VIEWS COMPARISON: None. HISTORY: Pain of left ankle joint FINDINGS: BONES:No acute fracture or dislocation to the foot or ankle. Mild mild joint space narrowing marginal osteophyte formation first metatarsal-phalangeal joint. Mild enthesopathic spurring of the calcaneus at the Achilles insertion SOFT TISSUES:Mild bimalleolar soft tissue swelling and dorsal forefoot swelling EFFUSION:None visible. OTHER: Negative. IMPRESSION: Mild tissue swelling No acute fracture of the foot or ankle Electronically authenticated by: ERUM DE LA CRUZ Date: 2021-08-21 17:19[facility]03-25-2022 Hospital Discharge instructions Patient Education 06/07/2021 20:49:54 Blepharitis, [id number]-Hqfm Blepharitis Blepharitis is swelling of the eyelids. Symptoms may include: Reddish, scaly skin around the scalp and eyebrows. Burning or itching of the eyelids. Fluid coming from the eye at night. This causes the eyelashes to stick together in the morning. Eyelashes that fall out. Being sensitive to light. Follow these instructions at home: Pay attention to any changes in how you look or feel. Tell your health care provider about any changes. Follow these instructions to help with your condition: Keeping clean Wash your hands often. Wash your eyelids with warm water, or wash them with warm water that is mixed with little bit of baby shampoo. Do this 2 or more times per day. Wash your face and eyebrows at least once a day. Use a clean towel each time you dry your eyelids. Do not use the towel to clean or dry other areas of your body. Do not share your towel with anyone. General instructions Avoid wearing makeup until you get better. Do not share makeup with anyone. Avoid rubbing your eyes. Put a warm compress on your eyes 2 times per day for 10 minutes at a time, or as told by your doctor. If you were given antibiotics in the form of creams or eye drops, use the medicine as told by your doctor. Do not stop using the medicine even if you feel better. Keep all follow-up visits as told by your doctor. This is important. Contact a doctor if: Your eyelids feel hot. You have blisters on your eyelids. You have a rash on your eyelids. The swelling does not go away in 2 4 days. The swelling gets worse. Get help right away if: You have pain that gets worse. You have pain that spreads to other parts of your face. You have redness that gets worse. You have redness that spreads to other parts of your face. Your vision changes. You have pain when you look at lights or things that move. You have a fever. Summary Blepharitis is swelling of the eyelids. Pay attention to any changes in how your eyes look or feel. Tell your doctor about any changes. Follow home care instructions as told by your doctor. Wash your hands often. Avoid wearing makeup. Do not rub your eyes. Use warm compresses, creams, or eye drops as told by your doctor. Let your doctor know if you have changes in vision, blisters or rash on eyelids, pain that spreads to your face, or warmth on your eyelids. This information is not intended to replace advice given to you by your health care provider. Make sure you discuss any questions you have with your health care provider. Document Released: 12/09/2008 Document Revised: 08/30/2018 Document Reviewed: 08/30/2018 [employer] Patient Education 2020 [employer]. Follow Up Care 06/07/2021 20:31:14 With:YANET CHAIREZ CNP Address:Unknown When:06/10/2021 [facility]03-25-2022 Evaluation + Plan noteExtracted from: Title:ED Note Author:Phoebe Dubon PA-C Date :06/07/21 1. Unspecified blepharitis l eft upper eyelid (H01.004: Unspecified blepharitis left upper eyelid) Ordered: erythromycin ophthalmic, 0.5 in, OPTH, QID for 7 day(s), 3.5 gm, Refill(s) 0, [id number], 165, cm, 06/07/21 20:41:00 EDT, Height/Length Dosing, 121, kg, 06/07/21 20:41:00 EDT, [facility] Future Appointments Appointment Date:12/02/2023 10:00:00 AM Scheduled Provider:Semaj QUINTEROS MD Location:[facility] Appointment Type:URO New Patient Future Scheduled Tests Radiology* XR Abdomen 1 View [facility]06/[facility] Diagnosis Gastroesophageal reflux disease, unspecified whether esophagitis present- Primary Gastro-esophageal reflux disease without esophagitis Esophageal reflux [facility] N[facility] No data available for this [facility] No data available for this section [facility] No data available for this section [facility] Summary Purpose Family History No Family History Records Found No data available for this section No data available for this section No Family History Records FoundNo Family History Records FoundNo Family History Records FoundNo Family History Records FoundNo Family History Records FoundNo Family History Records FoundNo Family History Records FoundNo Family History Records FoundNo Family History Records FoundNo Family History Records FoundNo Family History Records FoundNo Family History Records FoundNo Family History Records FoundNo Family History Records FoundNo Family History Records FoundNo Family History Records FoundNo Family History Records Found No data available for this section No Family History Records FoundNo Family History Records FoundNo Family History Records Found No data available for this section No Family History Records FoundNo Family History Records Found No data available for this section No Family History Records FoundNo Family History Records FoundNo Family History Records FoundNo Family History Records FoundNo Family History Records FoundNo Family History Records FoundNo Family History Records FoundNo Family History Records FoundNo Family History Records Found No data available for this section Advance Directives No Advanced Directives Records FoundNo Advanced Directives Records FoundNo Advanced Directives Records FoundNo Advanced Directives Records FoundNo Advanced Directives Records FoundNo Advanced Directives Records FoundNo Advanced Directives Records FoundNo Advanced Directives Records FoundNo Advanced Directives Records FoundNo Advanced Directives Records FoundNo Advanced Directives Records FoundNo Advanced Directives Records FoundNo Advanced Directives Records FoundNo Advanced Directives Records FoundNo Advanced Directives Records FoundNo Advanced Directives Records FoundNo Advanced Directives Records FoundNo Advanced Directives Records FoundNo Advanced Directives Records FoundNo Advanced Directives Records FoundNo Advanced Directives Records FoundNo Advanced Directives Records FoundNo Advanced Directives Records FoundNo Advanced Directives Records FoundNo Advanced Directives Records FoundNo Advanced Directives Records FoundNo Advanced Directives Records FoundNo Advanced Directives Records FoundNo Advanced Directives Records FoundNo Advanced Directives Records FoundNo Advanced Directiv es Records FoundNo Advanced Directives Records Found Additional Source Comments INFORMATION SOURCE (unrecogn ized section and content) DATE CREATED AUTHOR 08/24/2021 [facility] DATE CREATED AUTHOR AUTHOR'S ORGANIZ ATION 08/01/2023 [facility] [facility] DATE CREATED AUTHOR AUTHOR'S ORGANIZ ATION [facility]08[facility]2023 [facility] DATE CREATED AUTHOR AUTHOR'S ORGANIZ ATION 08/10/2023 [facility] DATE CREATED AUTHOR AUTHOR'S ORGANIZ ATION 09/20/2023 [facility] DATE CREATED AUTHOR AUTHOR'S ORGANIZ ATION 10[facility]2023 [facility] Care Team (unrecognized sect ion and content) Personnel Name: YANET CHAIREZ CNP Address: Address: [address] [place] [id number] [place] Name: Aleah Carbone Land Surveyor Manager Relationship Specialty Start Date End Date Tate Martinez MD [address] [place] [address] PCP - General Family Medicine 04/03/23 Reason for Visit (unrecogniz ed section and content) Reason Comments Med Refill FOR RECORDS PERTAINING TO PATIENTS WHO ARE OR HAVE BEEN ENROLLED IN A CHEMICAL DEPENDENCY/SUBSTANCEABUSE PROGRAM, SOME INFORMATION MAY BE OMITTED. This clinical summary was aggregated from multiple sources. Caution should be exercised in using it in the provision of clinical care. This summary normalizes information from multiple sources, and as a consequence, information in this document may materially change the coding, format and clinical context of patient data. In addition, data may be omitted in some cases. CLINICAL DECISIONS SHOULD BE BASED ON THE PRIMARY CLINICAL RECORDS. [facility] provides no warranty or guarantee of the accuracy or completeness of information in this document.
[2023-10-03 17:49] VITALS: BP 117/92; PULSE 105; TEMP 36.8; O2SAT 99; BMI 40.7
[2023-10-03 18:49] LABS: Basophils Percent Auto 0.4 % (0.2-2.0); Eosinophils Absolute Auto 0.2 10^3/uL (0.0-0.7); Eosinophils Percent Auto 1.5 % (0.9-7.0); Hematocrit 41.5 % (36.0-48.0); Hemoglobin 13.4 g/dL (12.0-16.0); Immature Granulocytes Abs Auto 0.04 10^3/uL (0.00-0.03); Immature Granulocytes Pct Auto 0.4 % (0.0-0.5); Lymphocytes Absolute Auto 2.1 10^3/uL (1.2-3.8); Lymphocytes Percent Auto 20.7 % (20.5-60.0); Mean Corpuscular HGB Conc 32.3 g/dL (29.9-35.2); Mean Corpuscular Hemoglobin 30.7 pg (26.7-34.0); Mean Platelet Volume 10.7 fL (9.5-13.5); Monocytes Absolute Auto 0.7 10^3/uL (0.3-0.8); Monocytes Percent Auto 6.7 % (1.7-12.0); Neutrophils Absolute Auto 7.2 10^3/uL (1.4-6.5); Neutrophils Percent Auto 70.3 % (43.0-75.0); Platelet Count 215 10^3/uL (150-450); Red Blood Count 4.37 10^6/uL (4.20-5.40); Red Cell Distribution Width 13.3 % (11.0-15.0); White Blood Count 10.2 10^3/uL (4.0-11.0)
[2023-10-03] MEDS: 0.9 % SODIUM CHLORIDE 1,000 ML 1000 ML IV (18:56)
[2023-10-03 19:07] LABS: Lactate/Lactic Acid 1.3 mmol/L (0.4-2.0)
--- NOTE | 2023-10-03 19:10 | CT_ITS ---
[facility] [address] [place], [place] [address] Patient Name: TISH VARGAS MRN: [id number] date: 1980 Sex: F Assigned Patient Location: ER Current Patient Location: ER Accession/Order Number: [id number] Exam Date: 10/03/2023 20:00 Report Date: 10/03/2023 22:08 At the request of: BRADY DOSS Procedure: CT pelvis w con EXAM: CT pelvis w con HISTORY: evaluate left labial abscess COMPARISON: CT abdomen pelvis 07/30/2023, 10/02/2022, 02/01/2011. TECHNIQUE: CT pelvis with contrast. 100 mL Omnipaque 300. Axial scans with multiplanar reformatted images. Individualized dose reduction used for this exam. FINDINGS: There is left perineal stranding and inflammation several small punctate gas collections.. Small fluid collection slightly more than 1 cm with questionable rim enhancement, possible small abscess. . Right perineum unremarkable. Slightly heterogeneous Bartholin's glands without fluid collection or cyst. Previous hysterectomy. No intrapelvic fluid collection or abscess. Normal pelvic bowel loops. Small amount of fluid in the bladder. Slight subcutaneous stranding from previous surgery in the anterior pelvic wall without hernia. No suspicious bony abnormality. CT/CT pelvis w con IMPRESSION: Left perineal information with subcentimeter fluid collection, possible small abscess. No intrapelvic fluid or inflammation or abscess. Electronically authenticated by: DONOVAN CIFUENTES Date: 10/03/2023 22:08
[2023-10-03 19:25] LABS: HCG Quantitative 3 mIU/mL
[2023-10-03] MEDS: MORPHINE SULFATE 4 MG/ML VIAL IV ×2 (19:29→20:49)
[2023-10-03] MEDS: PROMETHAZINE HCL 12.5 MG in 0.9 % SODIUM CHLORIDE 50 ML 202 MG IV (19:30)
--- NOTE | 2023-10-03 19:38 | ED_ITS ---
HPI - Skin/Abscess/Foreign Bdy General Chief complaint: Skin/Abscess/Foreign Body Stated complaint: GROIN ABCESS Time Seen by Provider: 10/03/23 18:31 Source: patient Mode of arrival: walk-in Limitations: no limitations History of Present Illness HPI narrative: 42-year-old female presents for pain in her left labia. It started a few days ago and 2 days ago she went to another hospital where they put her on clind amycin. She went back to that same hospital yesterday and she states they lanced it. She states its become more painful and more swollen and she has had no more drainage. She has not had a fever, she is diabetic. The pain is severe and continuous and she used the Percocet up that they had given her. Related Data Home Medications ?Medication ?Instructions ?Recorded ?Confirmed alprazolam 1 mg tablet (Xanax) 0.5 mg PO BID 08/25/22 08/26/22 aspirin 81 mg tablet,delayed 81 mg PO DAILY 08/25/22 08/25/22 release atorvastatin 80 mg tablet 80 mg PO DAILY 08/25/22 08/25/22 buspirone 5 mg tablet 5 mg PO BID 08/25/22 08/25/22 clopidogrel 75 mg tablet (Plavix) 75 mg PO DAILY 08/25/22 08/25/22 empagliflozin 25 mg tablet 25 mg PO DAILY 08/25/22 08/25/22 (Jardiance) ezetimibe 10 mg tablet 10 mg PO DAILY 08/25/22 08/25/22 hydroxyzine pamoate 25 mg capsule 25 mg PO BID 08/25/22 08/25/22 insulin glargine 100 unit/mL (3 15 unit subcut .QHS 08/25/22 08/26/22 mL) subcutaneous pen (Lantus Solostar U-100 Insulin) losartan 25 mg tablet 25 mg PO DAILY 08/25/22 08/25/22 metformin 1,000 mg tablet 1,000 mg PO BID 08/25/22 08/25/22 metoprolol succinate 25 mg 25 mg PO DAILY 08/25/22 08/25/22 tablet,extended release 24 hr munjuaro 10 mg IM .weekly 08/25/22 08/25/22 omeprazole 20 mg capsule,delayed 20 mg PO DAILY 08/25/22 08/25/22 release gabapentin 400 mg capsule 400 mg PO .q8 08/26/22 08/26/22 Previous Rx's ?Medication ?Instructions ?Recorded clindamycin HCl 300 mg capsule 300 mg PO Q6H 7 days #28 caps 08/26/22 cephalexin 500 mg capsule 500 mg PO Q8H 7 days #21 caps 10/02/22 ondansetron 4 mg disintegrating 4 mg PO Q6H PRN nausea and 10/02/22 tablet vomiting #12 tabs oxycodone-acetaminophen 5 mg-325 1 tab PO Q6H PRN pain #6 tabs 10/02/22 mg tablet (Percocet) Allergies Allergy/AdvReac Type Severity Reaction Status Date / Time No Known Drug Allergies Allergy Verified 07/30/23 15:43 Review of Systems ROS Narrative A ten point review of systems is negative except as noted above. [facility] Medical History Surgical History Family History Mother Family history of CHF (congestive heart failure) Father Family history of hypertension Family/Other Family history of hypertension Social History Smoking status: Former smoker Do you think of yourself as: straight/heterosexual Gender Identity: female Exam Narrative Exam Narrative: Nurses note and vital signs reviewed and patient is not hypoxic. General: The patient appears uncomfortable Skin: Warm, dry, no pallor noted. There is no rash noted. Head: Normocephalic, atraumatic Eye: Normal conjunctiva, no drainage Ears, Nose, Mouth, and Throat: oral mucosa is moist. Nares patent. Cardiovascular: Regular Rate and Rhythm Respiratory: Patient is in no distress, no accessory muscle use, lungs are clear to auscultation, no wheezing, rales or rhonchi Back: non-tender GI: Normal bowel sounds, no tenderness to palpation, no masses appreciated. No rebound, guarding, or rigidity noted. Musculoskeletal: The patient has no evidence of calf tenderness, no pitting edema, symmetrical pulses noted bilaterally Neurological: A&O x4, normal speech Psychiatric: Cooperative Constitutional Vital Signs, click to edit/add: Last Vital Signs Temp 98.2 F 10/03/23 17:49 Pulse 99 H 10/03/23 20:53 Resp 18 10/03/23 20:53 BP 105/70 10/03/23 20:53 Pulse Ox 100 10/03/23 20:53 O2 Del Method Room Air 10/03/23 17:49 Course Vital Signs Vital signs: Vital Signs Temperature 98.2 F 10/03/23 17:49 Pulse Rate 105 H 10/03/23 17:49 Respiratory Rate 18 10/03/23 17:49 Blood Pressure 117/92 H 10/03/23 17:49 Pulse Oximetry 99 10/03/23 17:49 Oxygen Delivery Method Room Air 10/03/23 17:49 Temperature 98.2 F 10/03/23 17:49 Pulse Rate 99 H 10/03/23 20:53 Respiratory Rate 18 10/03/23 20:53 Blood Pressure 105/70 10/03/23 20:53 Pulse Oximetry 100 10/03/23 20:53 Oxygen Delivery Method Room Air 10/03/23 17:49 MDM - Skin/Abscess/Foreign Bdy MDM Narrative Medical decision making narrative: WBC is normal. She has subcentimeter fluid collection present, not drainable. She was given IV pain medication and I spoke to Dr. Mascorro. She will be admitted for IV antibiotic which will be ordered by Dr. Mascorro. Treatment diagnosis and disposition were discussed with the patient. Differential Diagnosis Differential diagnosis: Likely abscess of skin or subcutaneous tissue and cellul itis Lab Data Attestation: I reviewed the patient's lab results. Labs: Lab Results 10/03/23 10/03/23 Range/Units 18:40 20:50 WBC 10.2 (4.0-11.0) 10^3/uL RBC 4.37 (4.20-5.40) 10^6/uL Hgb 13.4 (12.0-16.0) g/dL Hct 41.5 (36.0-48.0) % MCV 95.0 (81.0-99.0) fL MCH 30.7 (26.7-34.0) pg MCHC 32.3 (29.9-35.2) g/dL RDW 13.3 (11.0-15.0) % Plt Count 215 (150-450) 10^3/uL MPV 10.7 (9.5-13.5) fL Neut % (Auto) 70.3 (43.0-75.0) % Lymph % (Auto) 20.7 (20.5-60.0) % Hendry % (Auto) 6.7 (1.7-12.0) % Eos % (Auto) 1.5 (0.9-7.0) % Baso % (Auto) 0.4 (0.2-2.0) % Neut # (Auto) 7.2 H (1.4-6.5) 10^3/uL Lymph # (Auto) 2.1 (1.2-3.8) 10^3/uL Hendry # (Auto) 0.7 (0.3-0.8) 10^3/uL Eos # (Auto) 0.2 (0.0-0.7) 10^3/uL Baso # (Auto) 0.0 (0.0-0.1) 10^3/uL Abs Immat Gran (auto) 0.04 H (0.00-0.03) 10^3/uL Imm/Tot Granulo (auto) 0.4 (0.0-0.5) % Sodium 136 (136-145) mmol/L Potassium 3.9 (3.5-5.1) mmol/L Chloride 102 (98-107) mmol/L Carbon Dioxide 28.1 (21.0-32.0) mmol/L Anion Gap 9.8 BUN 27.0 H (7.0-18.0) mg/dL Creatinine 1.23 H (0.55-1.02) mg/dL Est GFR ( Amer) 58 L (>=60) Est GFR (Non-Af Amer) 48 L (>=60) BUN/Creatinine Ratio 22.0 Glucose 86 (74-106) mg/dL Lactate 1.3 (0.4-2.0) mmol/L Calcium 8.8 (8.5-10.1) mg/dL Total Bilirubin 0.5 (0.2-1.0) mg/dL AST 10 L (15-37) U/L ALT 13 L (14-59) U/L Alkaline Phosphatase 107 (46-116) U/L Total Protein 7.0 (6.4-8.2) g/dL Albumin 3.7 (3.4-5.0) g/dL Globulin 3.3 g/dL Albumin/Globulin Ratio 1.1 HCG, Quant 3 mIU/mL Imaging Data CT pelvis: Radiologist's impression: ITS Impressions Pelvis CT 10/03/23 19:10 IMPRESSION: Left perineal information with subcentimeter fluid collection, possible small abscess. No intrapelvic fluid or inflammation or abscess. Electronically authenticated by: DONOVAN CIFUENTES Date: 10/03/2023 22:08 Discharge Plan Discharge Chief Complaint: Skin/Abscess/Foreign Body Clinical Impression: Cellulitis Patient Disposition: Admitted as Observation Time of Disposition Decision: 22:28 Condition: Good Prescriptions / Home Meds: No Action metoprolol succinate 25 mg tablet extended release 24 hr 25 mg PO DAILY insulin glargine [Lantus Solostar U-100 Insulin] 100 unit/mL (3 mL) insulin pen 15 unit subcut .QHS munjuaro 10 mg IM .weekly ezetimibe 10 mg tablet 10 mg PO DAILY buspirone 5 mg tablet 5 mg PO BID clopidogrel [Plavix] 75 mg tablet 75 mg PO DAILY aspirin 81 mg tablet,delayed release (DR/EC) 81 mg PO DAILY atorvastatin 80 mg tablet 80 mg PO DAILY Jardiance 25 mg tablet 25 mg PO DAILY alprazolam [Xanax] 1 mg tablet 0.5 mg PO BID losartan 25 mg tablet 25 mg PO DAILY hydroxyzine pamoate 25 mg capsule 25 mg PO BID omeprazole 20 mg capsule,delayed release(DR/EC) 20 mg PO DAILY metformin 1,000 mg tablet 1,000 mg PO BID clindamycin HCl 300 mg capsule 300 mg PO Q6H 7 Days Qty: 28 0RF gabapentin 400 mg capsule 400 mg PO .q8 cephalexin 500 mg capsule 500 mg PO Q8H 7 Days Qty: 21 0RF oxycodone-acetaminophen [Percocet] 5-325 mg tablet 1 tab PO Q6H PRN (Reason: pain) Qty: 6 0RF Rx Instructions: DX. R10.9 ondansetron 4 mg tablet,disintegrating 4 mg PO Q6H PRN (Reason: nausea and vomiting) Qty: 12 0RF Print Language: Gabonese Referrals: Yanet Junior [employer] INST[employer]ER [Primary Care Provider] - 1 week
[2023-10-03 20:53] VITALS: BP 105/70; PULSE 99; O2SAT 100
[2023-10-03 21:23] LABS: Alanine Aminotransferase 13 U/L (14-59); Albumin Globulin Ratio 1.1; Albumin Level 3.7 g/dL (3.4-5.0); Alkaline Phosphatase 107 U/L (46-116); Anion Gap 9.8; Aspartate Amino Transferase 10 U/L (15-37); Bilirubin Total 0.5 mg/dL (0.2-1.0); Calcium 8.8 mg/dL (8.5-10.1); Carbon Dioxide 28.1 mmol/L (21.0-32.0); Chloride 102 mmol/L (98-107); Estimated GFR (African America 58 (>=60); Estimated GFR (Non-African Ame 48 (>=60); Globulin 3.3 g/dL; Glucose 86 mg/dL (74-106); Potassium 3.9 mmol/L (3.5-5.1); Sodium 136 mmol/L (136-145)
[2023-10-03] MEDS: HYDROMORPHONE HCL 1 MG/ML CARTRIDGE IV (22:15)
[2023-10-03 22:59] VITALS: BP 98/73; PULSE 66; O2SAT 97
[2023-10-04] VITALS (10 sets, daily range): BP systolic 91–116; BP diastolic 61–82; PULSE 83–115; TEMP 36.4–37.3; O2SAT 84–94; BMI 41.0
--- OUTSIDE RECORDS SUMMARY | 2023-10-04 00:01 | XMS_ITS ---
Patient Summarization (C-CDA 2.1 CCD) Created on: October 04, 2023 TISH VARGAS : 1980 Sex: Female Author Organization Sample organization Care Team Providers Care Pocket Closer Name Role Phone YANET CHAIREZ Primary Care Physician [phone] Aleah Norton Unavailable Unavailable AICHHOLZ, CRANE MECHANIC YANET Primary Care Unavailable GERMAINE DOW Admitting Unavailable GERMAINE DOW Attending Unavailable GERMAINE DOW Consulting Unavailable JULIO KOWALSKI Admitting Unavailable JULIO KOWALSKI Attending Unavailable AICHHOLZ, CRANE MECHANIC YANET Primary Care Unavailable JONO, DR ERUM Raya Consulting Unavailable JULIO KOWALSKI Consulting Unavailable AICHHOLZ, CRANE MECHANIC YANET Admitting Unavailable AICHHOLZ, FAIZAN YANET Attending Unavailable AICHHOLZ, CRANE MECHANIC YANET Primary Care Unavailable AICHHOLZ, CRANE MECHANIC YANET Consulting Unavailable Tate Martinez MD Primary Care Provider [phone] Gunnar Rangel Attending Unavailable Kevin Nur Attending Unavailable Mikaela Judd Attending Unavailable Gunnar Rangel Attending Unavailable AICHHOLZ, YANET Silver Admitting Unavailable AICHHOLZ, YANET J Attending Unavailable AICHHOLZ, YANET J Admitting Unavailable AICHHOLZ, YANET J Attending Unavailable DO Janes Bowles Attending Unavailable AICHHOLZ, YANET J Primary Care Unavailable Clemente ORTIZ Attending Unavailable AICHHOLZ, YANET J Referring Unavailable DO Janes Bowles A Attending Unavailable AICHHOLZ YANET Attending Unavailable AICHHOLZ, YANET Attending Unavailable [...] Translations: [acetaminophen-hyd rocodone] Drug Allergy Vomitus (substance) [facility] Encounters Encounter Date Encounter Type Care Provider Facility Start: 12-02-2023 ambulatory Semaj Richter NELI Facility :[facility] Start: 10-02-2023 End: 10-02-2023 Emergency department patient visit Juan Arnold [facility] Start: 09-25-2023 End: 09-25-2023 Emergency department patient visit Kevin Nur [facility] Start: 09-19-2023 End: 09-19-2023 ambulatory YANET CHAIREZ [facility] Start: 09-19-2023 End: 09-19-2023 Patient encounter procedure YANET CHAIREZ [facility] Start: 08-10-2023 Emergency department patient visit Juan Arnold Facility[place] Start: 08-10-2023 End: 08-10-2023 Emergency department patient visit Juan Arnold [facility] Start: 08-06-2023 ambulatory Juan Arnold Facility:[facility] Start: 08-05-2023 End: 08-05-2023 ambulatory YANET CHAIREZ Not Available Start: 07-29-2023 End: 07-30-2023 Emergency department patient visit DO Janes Bowles Facility:[facility] Start: 07-29-2023 End: 07-30-2023 Emergency department patient visit Janes Bowles [facility] Start: 05-28-2023 End: 05-28-2023 Emergency department patient visit Mikaela Judd Facility:[facility] Start: 05-28-2023 End: 05-28-2023 Emergency department patient visit Mikaela Judd [facility] Start: 05-25-2023 End: 05-25-2023 ambulatory YANET VERNON Not Available Start: 05-11-2023 End: 05-12-2023 ambulatory YANET J GEORGIANAZ Facility:[facility] Start: 04-25-2023 Refill Yanet Vernon [employer] Work Phone: [facility] Comment on above: Gastroesophageal ref lux disease, unspecified whether esophagitis present (Primary Dx); Gastro-esophageal reflux disease without esophagitis; Esophageal reflux Start: 02-09-2023 End: 02-09-2023 ambulatory YANET GEORGIANAZ Not Available Start: 10-28-2022 End: 10-28-2022 Emergency department patient visit Gunnar Rangel Facility[facility] Start: 10-28-2022 End: 10-28-2022 Emergency department patient visit Gunnar Rangel [facility] Start: 10-25-2022 End: 10-26-2022 ambulatory YANET Silver STONERZ Facility:[facility] Start: 10-25-2022 End: 10-25-2022 Patient encounter procedure YANET Silver STONERZ [facility] Start: 10-25-2022 End: 10-25-2022 Emergency department patient visit Gunnar Rangel Facility:[facility] Start: 10-25-2022 End: 10-25-2022 Emergency department patient visit Gunnar Rangel [facility] Start: 10-02-2022 Emergency department patient visit Gunnar Rangel Facility:[facility] Start: 09-09-2022 ambulatory YANET CHAIREZ Facilit y:[facility] Start: 08-24-2022 End: 08-24-2022 Emergency department patient visit Kevin Nur Facility:[facility] Start: 06-30-2022 End: 06-30-2022 Patient encounter procedure YANET Silver CHAIREZ [facility] Start: 03-14-2022 End: 03-14-2022 Patient encounter procedure YANET Silver CHAIREZ [facility] Start: 03-04-2022 End: 03-04-2022 Emergency department patient visit Kevin Nur [facility] Start: 01-01-2022 End: 01-01-2022 Patient encounter procedure Marie H Allison [facility] Start: 12-27-2021 End: 12-27-2021 Emergency department patient visit Janes Doug Wilbur [facility] Start: 11-11-2021 End: 02-10-2022 Recurring YANET CHAIREZ [facility] Start: 10-10-2021 End: 10-23-2021 Pre-admission assessment Dorothy ALMANZAR [facility] Start: 10-09-2021 End: 10-10-2021 Observation Svitlana Willett [facility] Start: 08-21-2021 End: 08-22-2021 [facility] Start: 07-12-2021 End: 07-12-2021 Patient encounter procedure YANET CHAIREZ [facility] Start: 06-07-2021 End: 06-07-2021 Emergency department patient visit Mikaela Judd [facility] Start: 12-16-2020 End: 12-16-2020 ambulatory [facility] YANET CHAIREZ Facility: Start: 10-29-2020 End: 10-30-2020 ambulatory [facility] Medical Equipment Procedure Code Equipment Code Equipment [...] Start: 02-21-2021 B-D ULTRA-FINE 3 3 LANCETS [facility] [id number] Inject under the skin if needed. Use as instructed [id number] Immunizations Immunization Date Immunization Notes Care Provider Fa cility NEGATED: Highlighted row has not occurred!02-21-2021 influenza virus vaccine, unspecified formulation [facility] Medications Current Medications Medication Drug Class(es) Dates Sig (Normalized) Sig (Original) acetaminophen 325 mg / HYDROcodone bitartrate 5 mg oral tablet (2 sources) Opioid Agonist Start: 12-30-2020 [place] 325 mg-5 mg oral tablet 1 tab(s), [...] tab(s), Oral, q6hr, 7 tab(s), Refill(s) 0, [id number], 160, cm, 10/02/23 12:44:00 EDT, Height/Length [...] for 3 day(s), 12 tab(s), Refill(s) 0, [id number], 160, cm, 10/25/22 9:40:00 EDT, Height/Length [...] Refill(s) 0 Start Date: 12/28/20 Status: Ordered [id number] 200 actuat albuterol 0.09 mg/actuat metered dose [...] Daily, # 30 tab(s), Refills(s) 0, Pharmacy: [facility] [id number] Start Date: 09/15/18 Status: Ordered bacitracin zinc [...] day(s), # 15 cap(s), Refills(s) 0, [id number] 160, cm, 07/29/23 21:34:00 EDT, Height/Length [...] day(s), # 28 cap(s), Refills(s) 0, [id number], 160, cm, 10/02/23 12:44:00 EDT, Height/Length [...] for 7 day(s), 3.5 gm, Refill(s) 0, [id number], 165, cm, 06/07/21 20:41:00 EDT, [...] Start: 12-19-2018 take 1 capsule by mo [facility] three times daily gabapentin 300 mg Cap 300 mg = 1 cap(s), Oral, TID Start Date: 12/19/18 Status: Ordered ibuprofen 600 mg oral tablet (3 sources) Nonsteroidal Anti-inflammatory Drug Start: 05-28-2023 End: 06-04-2023 take 1 tablet by mouth every eight hours ibuprofen 600 mg Tab 600 mg = 1 tab(s), Oral, q8hr, X 7 day(s), # 21 tab(s), Refills(s) 0, Pharmacy: [id number], 160, cm, 05/28/23 13:08:00 EDT, Height/Length Dosing, 115, kg, 05/28/23 13:08:00 EDT, Weight Dosing Start Date: 05/28/23 Stop Date: 06/04/23 Status: Ordered Start: 12-30-2020 take 1 tablet by addi every six hours ibuprofen 600 mg Tab 600 mg = 1 tab(s), Oral, q6hr, # 40 tab(s), Refills(s) 0, Pharmacy: [id number], 162, cm, 12/30/20 16:50:00 EDT, [...] qAM, # 60 tab(s), Refills(s) 0, Pharmacy: [id number], 163, cm, 10/09/21 14:18:00 EDT, [...] Angiotensin 2 Receptor Lawson Start: 9 End: 03-11-202 4 take 1 tablet by mouth at [...] day(s), # 20 tab(s), Refills(s) 0, Pharmacy: [id number], 160, cm, 10/02/23 21:46:00 EDT, Height/Length Dosing, 106.2, kg, 10/02/23 21:46:00 EDT, Weight Dosing Start Date: 10/03/23 Stop Date: 10/13/23 Status: Ordered Start: 12-28-2020 take 1 tablet by addi th twice daily as needed for pain naproxen 500 mg Tab 500 mg = 1 tab(s), Oral, BID, PRN for pain, # 20 tab(s), Refills(s) 0, Pharmacy: [id number], 162, cm, 12/28/20 0:14:00 EDT, Height/Length Dosing, 132.4, kg, 12/28/20 0:14:00 EDT, Weight Dosing Start Date: 12/28/20 Status: Ordered nitroglycerin 0.004 mg/mg rectal ointment (19 sources) Nitrate Vasodilator Start: 02-21-2021 apply 30 g rectal route every twelve hours nitroglycerin 0.4% rectal ointment See Instructions, 30 gm, Refill(s) 0, Rectal q12hr, [id number], 162, cm, 02/21/21 12:40:00 EST, Height/Length Dosing, 128.3, kg, 02/21/21 12:40:00 EST, Weight Dosing Start Date: 02/21/21 Status: Ordered Start: 02-21-2021 apply 30 g rectal ro denisse every twelve hours nitroglycerin 0.4% rectal ointment See Instructions, 30 gm, Refill(s) 0, Rectal q12hr, [id number], 162, cm, 02/21/21 12:40:00 EST, [...] q6hr, # 12 tab(s), Refills(s) 0, Pharmacy: [id number], 160, cm, 10/02/23 21:46:00 EDT, Height/Length Dosing, 106.2, kg, 10/02/23 21:46:00 EDT, Weight Dosing Start Date: 10/03/23 Status: Ordered Start: 11-25-2020 take 1 tablet by addi th every eight hours as needed for nausea Zofran 4 mg Tab 4 mg = 1 tab(s), Oral, q8hr, PRN Nausea/Vomiting, # 12 tab(s), Refills(s) 0, [id number], 162, cm, 12/27/21 2:03:00 EDT, Height/Length Dosing, 118, kg, 12/27/21 2:03:00 EDT, Weight Dosing Start Date: 12/27/21 Status: Ordered oxyCODONE hydrochloride 5 mg oral capsule (2 sources) Opioid Agonist Start: 12-28-2020 oxyCODONE 5 mg Cap 5 mg = 1 cap(s), Oral, q6hr, PRN Pain 8-10, # 3 cap(s), Refills(s) 0, [id number], 162, cm, 12/28/20 0:14:00 EDT, Height/Length Dosing, 132.4, kg, 12/28/20 0:14:00 EDT, Weight Dosing Start Date: 12/28/20 Status: Ordered phenazopyridine hydrochloride 100 mg oral tablet (1 source) Start: 07-30-2023 End: 08-02-2023 take 1 tablet by mouth three times daily Pyridium 100 mg Tab 100 mg = 1 tab(s), Oral, TID, X 3 day(s), # 9 tab(s), Refills(s) 0, [id number], 160, cm, 07/29/23 21:34:00 EDT, Height/Length [...] day(s), # 18 tab(s), Refills(s) 0, [id number], 160, cm, 09/25/23 6:39:00 EDT, Height/Length Dosing, 105.7, kg, 09/25/23 6:39:00 EDT, Weight Dosing Start Date: 09/25/23 Stop Date: 09/28/23 Status: Ordered 12 hr ranolazine 500 mg extended release oral tablet (17 sources) Anti-anginal Start: 10-10-2021 take 1 tablet by mouth twice daily Ranexa 500 mg Tab-ER 500 mg = 1 tab(s), Oral, BID, # 60 tab(s), Refills(s) 1, Pharmacy: [id number], 163, cm, 10/09/21 14:18:00 EDT, [...] Daily, # 10 cap(s), Refills(s) 0, Pharmacy: [id number], 160, cm, 05/28/23 13:08:00 EDT, [...] Active Start: 03-02-2023 take 1 tablet by addi once daily at mealtime venlafaxine (Effexor) 50 MG tablet TAKE 1 TABLET BY MOUTH EVERY DAY IN THE EVENING WITH FOOD 0 03/02/2023 Active Start: 01-02-2021 Effexor XR 150 mg Cap-ER 150 mg = 1 cap(s), Oral, Daily, along with 75 mg cap, Refills(s) 0 Start Date: 01/02/21 Status: Ordered Start: 01-02-2021 take 1 capsule by mo uth once daily Effexor XR 75 mg Cap-ER 75 mg = 1 cap(s), Oral, Daily, Refills(s) 0 Start Date: 01/02/21 Status: Ordered Start: 01-02-2021 Effexor XR 150 mg Cap-ER 150 mg = 1 cap(s), Oral, Daily, along with 75 mg cap, Refills(s) 0 Start Date: 01/02/21 Status: Ordered Start: 01-02-2021 take 1 capsule by mo [facility] once daily Effexor XR 75 mg Cap-ER 75 mg = 1 cap(s), Oral, Daily, Refills(s) 0 Start Date: 01/02/21 Status: Ordered Zofran ODT 4 mg Tab-Dis (14 sources) Start: 07-30-2023 take 1 tablet by mouth every eight hours Zofran ODT 4 mg Tab-Dis 4 mg = 1 tab(s), Oral, q8hr, # 12 tab(s), Refills(s) 0, Pharmacy: [id number], 160, cm, 07/29/23 21:34:00 EDT, Height/Length Dosing, 119, kg, 07/29/23 21:34:00 EDT, Weight Dosing Start Date: 07/30/23 Status: Ordered Start: 10-25-2022 take 1 tablet by addi every eight hours as needed for nausea Zofran ODT 4 mg Tab-Dis 4 mg = 1 tab(s), Oral, q8hr, PRN Nausea/Vomiting, # 12 tab(s), Refills(s) 0, Pharmacy: [id number], 160, cm, 10/25/22 9:40:00 EDT, Height/Length Dosing, 115, kg, 10/25/22 9:40:00 EDT, Weight Dosing Start Date: 10/25/22 Status: Ordered Completed/Discontinued Medications Medication Drug Class(es) Dates Sig (Normalized) Sig (Original) albuterol HFA 90 mcg/inh MDI (19 sources) Start: 11-25-2020 take 1 dose by inhalation four times daily albuterol HFA 90 mcg/inh MDI 2 puff(s), Inhalation, QID for wheezing, 1 EA, Refill(s) 0, [id number], 163, cm, 11/25/20 12:15:00 EDT, [...] Refills(s) 0 Start Date: 01/02/21 Status: Ordered Payers Date Payer Category Payer Medicaid [employer] [place] [id number] 2022-Present [address] [place] [address] [id number] 2017 Unknown [id number] 1980 Unknown [id number] 2.16.840.1.443438.3.579.2.593 1980 Unknown [id number] 2.16.840.1.962761.3.579.2.593 1981 Unknown [id number] 2.16.840.1.289359.3.579.2.593 1981 Unknown [id number] 2.16840.1.198710.3.579.2.72 1981 Unknown [id number] 2.16.840.1.453105.3.579.2.727 1981 Unknown [id number] 2.16.840.1.021985.3.579.2.727 1981 Unknown [id number] 2.16.840.1.174583.3.579.2.727 1981 Unknown [id number] 2.16840.1.945179.3.579.2.727 1981 Unknown [id number] 2.16.840.1.534834.3.579.2.727 1981 Unknown [id number] 2.16.840.1.616010.3.579.2.727 1981 Unknown [id number] 2.16.840.1.681937.3.579.2.727 1981 Unknown [id number] 2.16.840.1.241823.3.579.2.727 1981 Unknown [id number] 2.16.840.1.298996.3.579.2.727 1981 Unknown [id number] 2.16.840.1.010700.3.579.2.9 1981 Unknown [id number] 2.16.840.1.791016.3.579.2.9 1981 Unknown [id number] 2.16.840.1.396551.3.579.2.9 1981 Unknown [id number] 2.16.840.1.879358.3.579.2. 1981 Unknown [id number] 2.16.840.1.343318.3.579.2. 1981 Unknown [id number] 2.16.840.1.488783.3.579.2. 1981 Unknown [id number] 2.16.840.1.473336.3.579.2. 1981 Unknown [id number] 2.16.840.1.566050.3.579.2.7 1980 Unknown [id number] 2.16.840.1.684021.3.579.2. 1981 Unknown [id number] 2.16.840.1.655439.3.579.2.727 1959 Unknown [id number] Plan of Treatment Date Care Activity Detail Author Start: 09-26-2024 Glaucoma screening Diabetes: R etinopathy Screening [facility] Start: 07-01-2023 Urine screening for protein Diabetes: Urine Protein Screening [facility] Start: 11-14-2022 Influenza vaccination Influenza Vacc ine (#1) [facility] Start: 2021 Screening for malign ant neoplasm of breast Mammogram [facility] Start: 1980 Hemoglobin A1c measurement Diabetes: Hemoglobin A1C [facility] Problems Active Problems Problem Classification Problem Date [...] 01-31-2011 12-19-2018 Episodic Other aftercare (1 source) 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; Translations: [ASSISTANCE REPRESENTATIVE CURRENT USE OF INSULIN] Onset: 12-18-2020 Episodic Other aftercare (1 source) Other shelter (current) drug therapy; Translations: [OTH CUSTODIAL CURRENT DRUG THERAPY] Onset: 12-18-2020 Episodic Other [...] [Contact with and (suspected) exposure to COVID19] Procedures Date Procedure Procedure Detail Performing Clinician Start: 08-20-2018 PCI 1 Mikaela tam Comment on above: Drug eluting stent t o the Medial LAD Start: 03-16-2018 Abdominal hysterectomy Mikaela Judd Start: 03-16-2018 Appendectomy Mikaela tam Bilateral salpingect ilya with oophorectomy Mikaela Judd x2 2 Mikaela Justin i Comment on above: [id number] Cardiac catheterization Salvador Judd Cardiac Stent Mikaela Judd Dilation and curettage Anila Judd Hernia repair x5 3 Mikaela baron Comment on above: [id number] Hysterectomy Svitlana Willett Incision AND drainage Mikaela Judd Comment on above: multiple abscess kidney stone removal Mikaela Judd Lithotripsy Mikaela Judd Results Test Name Value Interpretation Reference Range Facility BMPOrdered By: SYSTEM SYSTEM on 09-25-2023 Anion gap [Moles/Vol] 14 mmol/L Normal 6-16 Rem isol Chem Comment on above: Performed By: #### 2 [id number] #### [facility] [address] [place] [address] Calcium [Mass/Vol] 9.9 mg/dL Normal 8.9-11.1 Remiso l Chem Comment on above: Performed By: #### 2 [id number] #### [facility] [address] [place] [address] Chloride [Moles/Vol] 104 mmol/L Normal 101-111 Sidney kusum Chem Comment on above: Performed By: #### 2 [id number] #### [facility] [address] [place] [address] CO2 [Moles/Vol] 24 mmol/L Normal 21-31 Remisol C hem Comment on above: Performed By: #### 2 [id number] #### [facility] [address] [place] [address] Creatinine [Mass/Vol] 0.7 mg/dL Normal 0.5-1.3 Rem isol Chem Comment on above: Performed By: #### 2 [id number] #### [facility] [address] [place] [address] Glucose [Mass/Vol] 116 mg/dL Normal 55-199 Remiso l Chem Comment on above: Performed By: #### 2 [id number] #### [facility] [address] [place] [address] Potassium [Moles/Vol] 4.2 mmol/L Normal 3.5-5.3 Rem isol Chem Comment on above: Performed By: #### 2 [id number] #### [facility] [address] [place] [address] Sodium [Moles/Vol] 138 mmol/L Normal 135-145 Remiso l Chem Comment on above: Performed By: #### 2 [id number] #### [facility] [address] [place] [address] Urea nitrogen [Mass/Vol] 16 mg/dL Normal 5-21 Remisol Chem Comment on above: Performed By: #### 2 [id number] #### [facility] [address] [place] [address] BMPon 09-25-2023 Urea nitrogen/Creatinine [Mass ratio] 23 No Units High 10-20 [facility] Comment on above: Performed By: #### 2 [id number] #### [facility] [address] [place] [address] CBC w/ Auto DiffOrdered By: SYSTEM SYSTEM on 09-25-2023 Basophils/100 WBC (Bld) 0.7 % Normal 0.0-2.0 Remisol Heme Comment on above: Performed By: #### 2 [id number] #### [facility] [address] [place] [address] Basophils/Leukocytes Auto (Bld) [Pure # fraction] 0.1 E9/L Normal 0.0-0.2 Remisol Heme Comment on above: Performed By: #### 2 [id number] #### [facility] [address] [place] [address] Eosinophils (Bld) [#/Vol] 0.1 E9/L Normal 0.0-0.5 Remisol Heme Comment on above: Performed By: #### 2 537231 #### [facility] [address] [place] [address] Eosinophils/100 WBC (Bld) 1.1 % Normal 0.0-8.0 Remisol Heme Comment on above: Performed By: #### 2 [id number] #### [facility] [address] [place] [address] Erythrocyte distribution width (RBC) [Ratio] 14.3 % High 10.9-14.2 Remisol Heme Comment on above: Performed By: #### 2 [id number] #### [facility] [address] [place] [address] Hematocrit (Bld) [Volume fraction] 44.5 % Normal 34.0-46.0 Remisol Heme Comment on above: Performed By: #### 2 [id number] #### [facility] [address] [place] [address] Hemoglobin (Bld) [Mass/Vol] 15.0 g/dL Normal 12.0-16.0 Remisol Heme Comment on above: Performed By: #### 2 [id number] #### [facility] [address] [place] [address] Lymphocytes (Bld) [#/Vol] 1.7 E9/L Normal 1.0-4.0 Remisol Heme Comment on above: Performed By: #### 2 [id number] #### [facility] [address] [place] [address] Lymphocytes/100 WBC (Bld) 19.9 % Normal 14.0-50.0 Remisol Heme Comment on above: Performed By: #### 2 [id number] #### [facility] [address] [place] [address] 34673 MCH (RBC) [Entitic mass] 31.2 pg Normal 27.0-34.0 Remisol Heme Comment on above: Performed By: #### 2 [id number] #### [facility] [address] [place] [address] 26152 MCHC (RBC) [Mass/Vol] 33.7 g/dL Normal 31.4-36.0 Rem isol Heme Comment on above: Performed By: #### 2 140237 #### [facility] [address] [place] [address] 24605 MCV (RBC) [Entitic vol] 92.5 fL Normal 80.0-100.0 Remisol Heme Comment on above: Performed By: #### 2 [id number] #### [facility] [address] [place] [address] 75192 Monocytes (Bld) [#/Vol] 0.4 E9/L Normal 0.2-1.0 Remisol Heme Comment on above: Performed By: #### 2 [id number] #### [facility] [address] [place] [address] 26444 Neutrophils (Bld) [#/Vol] 6.3 E9/L Normal 2.0-7.5 Remisol Heme Comment on above: Performed By: #### 2 [id number] #### [facility] [address] [place] [address] 34996 Neutrophils/100 WBC (Bld) 73.8 % Normal 36.0-75.0 Remisol Heme Comment on above: Performed By: #### 2 [id number] #### [facility] [address] [place] [address] 26860 Platelet mean volume (Bld) [Entitic vol] 8.5 fL Normal 6.4-10.8 Remisol Heme Comment on above: Performed By: #### 2 [id number] #### [facility] [address] [place] [address] 670[address] Platelets (Bld) [#/Vol] 229.0 E9/L Normal 150.0-500.0 Remisol Heme Comment on above: Performed By: #### 2 [id number] #### [facility] [address] [place] [address] 65812 RBC (Bld) [#/Vol] 4.8 E12/L Normal 4.3-5.9 Remisol Heme Comment on above: Performed By: #### 2 [id number] #### [facility] [address] [place] [address] 706[address] WBC corrected for nucl RBC Auto (Bld) [#/Vol] 8.6 E9/L Normal 4.0-11.0 Remisol H narciso Comment on above: Performed By: #### 2 [id number] #### [facility] [address] [place] [address] CHEMISTRYOrdered By: SYSTEM SYSTEM on 09-25-2023 Albumin/Globulin [Mass ratio] 1.6 {ratio} Normal 1.1 - 2.2 Remisol Chem ALP [Catalytic activity/Vol] 105 [iU]/d High 21 - 98 Int._Unit/L Remisol Chem ALT No additional P-5'-P [Catalytic activity/Vol] 9 [iU]/d Normal 6 - 46 Int._Unit/L Remisol Chem AST [Catalytic activity/Vol] 18 [iU]/d Normal 5 - 43 Int._Unit/L Remisol Chem Urea nitrogen/Creatinine [Mass ratio] 23 mg/mg High 10 - 20 Remisol Chem ED Clinical Summaryon 2023 ED Clinical Summary ED Clinical Summary [place] [id number] ED Clinical Summary Person Information Name: TISH VARGAS [place] Age: 42 Years : 1980 Sex: Female Language: Chinese PCP: YANET CHAIREZ CNP Marital Status: Phone: [phone] Visit Id: Visit Reason: Weakness or fatigue; [...] 09/25/2023 09:56:36 09/25/2023 09:56:36 09/25/2023 09:56:36 ADDRESS: [place] [id number] PHYS DOC NOTES: MEDICAL INFORMATION: Prescriptions Given: New Medications [id number], [address] [place] [id number], [phone] promethazine (promethazine 25 mg Tab) 1 Tablets [...] day. P (more content not included)... Normal [facility] ED Note-Physicianon 09-25-19 ED Note-Physician ED Note-Physician Basic Information Time Seen: Juan Carlos PIERCEGunnar 09/25/2023 07:02 Chief Complaint dry heaves for [...] day(s), # 18 tab(s), Refills(s) 0, Pharmacy: [id number], 160, cm, 09/25/23 6:39:00 EDT, [...] Kusum 50 mL [F] 50 mL + [id number] [F] 25 mg, IV Piggyback Disposition Plan Discharge Prescription List Prescriptions promethazine 25 mg Tab, 25 mg= 1 tab(s), Oral, q4hr Follow-up With When Contact Information YANET CHAIREZ In [address] [place] [address] [phone] Business (1) Additional Instructions: Problem List/Past Medical History Ongoing Abnormal uterine bleeding Anxiety Coronary artery disease Depression Diabetes Diabetic neuropathy Fatty liver GERD (gastroesophageal reflux disease) Hemorrhoids History of AR (myocardial infarction) HTN (hypertension) Hyperlipidemia Hypertension Insomnia [...] isosorbide mononit (more content not included)... Normal [facility] Comment on above: Result Comment: Elec tronically Signed By: Gunnar Rangel DO\.br\Date and Time Signed: 09/25/23 08:59 EDT ED Patient Education Noteon 09-25-2023 ED Patient Education Note ED Patient Education Note Normal [facility] ED Patient Summaryon 024 ED Patient Summary ED Patient Summary [place] [id number] Patient Discharge Instructions Person Information Name: TISH VARGAS Age: 42 Years Arrival Date: 09/25/2023 06:33:17 Discharge Diagnosis: Gastritis Primary Care Physician: YANET CHAIREZ CNP Provider Information Primary Provider: Gunnar Rangel DO [facility] Medical Assistant:None The exam and treatment you received in the Emergency Department were for an urgent problem and are not intended as complete care. It is important that you follow up with a doctor, nurse practitioner, or physician?s railway yard assistant for ongoing care. If your symptoms [...] With: Address: When: YANET CHAIREZ [address] [place], [place] [phone] Business (1) In 3 days In the event that this physician does not participate in your insurance network, please consult with your insurance company to find a nearby participating provider. Patient Education Materials: A MESSAGE TO ALL PATIENTS REGARDING OPIOIDS PRESCRIPTION OPIOIDS: WHAT YOU NEED TO KNOW Prescription opioids can be used to help relieve xzhohltr-sp-wjrodp pain and are often prescribed following a [...] be struggling with addiction, tell your health residential care officer and ask for guidance or call [facility]?S National Helpline at 9-202-601-GZXB. v Source: [place] Department of Health and (more content not included)... Normal [facility] HEMATOLOGYOrdered By: SYSTEM SYSTEM on 09-25-2023 Monocytes/100 WBC (Bld) 4.5 % Normal 4.0 - 14.0 % Remisol Heme Hep Func PanelOrdered By: [employer] STEM SYSTEM on 09-25-2023 Albumin [Mass/Vol] 4.7 g/dL Normal 3.3-5.0 [facility] Comment on above: Performed By: #### 2 [id number] #### [facility] [address] [place] [address] Bilirubin [Mass/Vol] 0.6 mg/dL Normal 0.0-1.1 [facility] Comment on above: Performed By: #### 2 [id number] #### [facility] [address] [place] [address] Bilirubin.direct [Mass/Vol] 0.1 mg/dL Normal 0.0-0.4 [facility] Comment on above: Performed By: #### 2 [id number] #### [facility] [address] [place] [address] Bilirubin.indirect [Mass or moles/Vol] 0.5 mg/dL Normal 0.1-0.9 [facility] Comment on above: Performed By: #### 2 [id number] #### [facility] [address] [place] [address] Globulin (S) [Mass/Vol] 2.9 g/dL Normal 1.4-4.0 [facility] Comment on above: Performed By: #### 2 [id number] #### [facility] [address] [place] [address] Protein [Mass/Vol] 7.6 g/dL Normal 6.0-7.8 [facility] Comment on above: Performed By: #### 2 [id number] #### [facility] [address] [place] [address] Hep Func Panelon 09-25-2023 Albumin/Globulin (S) [Mass conc ratio] 1.6 Normal 1.1-2.2 [facility] Comment on above: Performed By: #### 2 [id number] #### [facility] [address] [place] [address] ALP [Catalytic activity/Vol] 105 Int._Unit/L High 21-98 [facility] Comment on above: Performed By: #### 2 [id number] #### [facility] [address] [place] [address] ALT No additional P-5'-P [Catalytic activity/Vol] 9 Int._Unit/L Normal 6-46 [facility] Comment on above: Performed By: #### 2 [id number] #### [facility] [address] [place] [address] AST [Catalytic activity/Vol] 18 Int._Unit/L Normal 5-43 [facility] Comment on above: Performed By: #### 2 [id number] #### [facility] [address] [place] [address] Lipase LevelOrdered By: SYST EM SYSTEM on 09-25-2023 Lipase [Catalytic activity/Vol] 76 U/L High 13-58 [facility] Comment on above: Performed By: #### 2 [id number] #### [facility] [address] [place] [address] MICRO OTHER TESTSOrdered By: Noa Choi on 09-25-2023 Rapid COV Int NEG Ctl Pass (09/25/23 6:45 AM) Normal [facility] Rapid COV Int POS Ctl Pass (09/25/23 6:45 AM) Normal [facility]ero SARS-CoV+SARS-CoV-2 (COVID-19) Ag IA.rapid Ql (Resp) Not Detected 2 (09/25/23 6:45 AM) Normal Not Detected [facility] Comment on above: Interpretive Data: T amadeo BD Veritor System for Rapid Detection of SARS-CoV-2 [...] Rapid COV Int NEG Ctl Pass Normal [facility] Comment on above: Performed By: #### 2 [id number] #### [facility] [address] [place] [address] Rapid COV Int POS Ctl Pass Normal [facility] Comment on above: Performed By: #### 2 [id number] #### [facility] [address] [place] [address] SARS-CoV+SARS-CoV-2 (COVID-19) Ag IA.rapid Ql (Resp) Not detected Normal Not Detected [facility] Comment on above: Result Comment: The [employer]? System for Rapid Detection of SARS-CoV-2 is [...] other viruses or pathogens; and, in the [facility], this test is only authorized for the duration of the declaration that circumstances exist justifying the authorization of emergency use of in vitro diagnostics for detection and/or diagnosis of the virus that causes COVID-19 under Section 564(b)(1) of the Act, 21 U.S.C. ? 360bbb-3(b)(1), unless the authorization is terminated or revoked sooner. Performed By: #### 2 [id number] #### [facility] [address] [place] [address] U BetaHcg QualOrdered By: Ra daphney Choi on 09-25-2023 HCG.beta subunit (U) [Moles/Vol] Negative Normal [facility] Comment on above: Performed By: #### 2 [id number] #### [facility] [address] [place] [address] UA with Cult RflxOrdered By: SYSTEM SYSTEM on 09-25-2023 Bilirubin Ql (U) Negative Normal Negative [facility] Auto SS Comment on above: Performed By: #### 4 [id number] #### [facility] [address] [place] [address] Hemoglobin Auto test strip (U) [Mass/Vol] Negative Normal Negative [facility] Aut o SS Comment on above: Performed By: #### 4 [id number] #### [facility] [address] [place] [address] Leukocyte esterase Auto test strip Ql (U) Negative Normal Negative [facility] A uto SS Comment on above: Performed By: #### 4 [id number] #### [facility] [address] [place] [address] Nitrite Auto test strip Ql (U) Negative Normal Negative FT [facility] Auto SS Comment on above: Performed By: #### 4 [id number] #### [facility] [address] [place] [address] Protein Ql (U) Negative Normal Negative FT [facility] Au to SS Comment on above: Performed By: #### 4 [id number] #### [facility] [address] [place] [address] Urobilinogen (U) [Mass/Vol] Negative Normal Negative [facility] UA Auto SS Comment on above: Performed By: #### 4 [id number] #### [facility] [address] [place] [address] UA with Cult Rflxon 09-25-19 24 Clarity (U) Clear Normal Clear [facility] Comment on above: Performed By: #### 4 [id number] #### [facility] [address] [place] [address] Color (U) Light-Yellow Normal Yellow [facility] Comment on above: Result Comment: Micr oscopic readings are only performed on those samples that meet specific criteria set forth by [facility]. Performed By: #### 4 [id number] #### [facility] [address] [place] [address] Glucose Ql (U) 4+ mg/dL Abnormal Negative [facility] Comment on above: Performed By: #### 4 [id number] #### [facility] [address] [place] [address] Ketones Auto test strip Ql (U) Trace Abnormal Negative [facility] Comment on above: Performed By: #### 4 [id number] #### [facility] [address] [place] [address] pH (U) 5.0 [pH] Invalid Interpretation Code 5.0-9.0 [facility] Comment on above: Performed By: #### 4 [id number] #### [facility] [address] [place] [address] Specific gravity (U) [Rel density] 1.027 Invalid Interpretation Code 1.005-1.030 [facility] Comment on above: Performed By: #### 4 [id number] #### [facility] [address] [place] [address] Type of Urine collection method Clean Catch Normal [facility] Comment on above: Performed By: #### 4 [id number] #### [facility] [address] [place] [address] URINALYSISOrdered By: SYSTEM SYSTEM on 09-25-2023 Clarity (U) Clear (09/25/23 6:45 AM) Normal Clear [facility] UA Auto SS Color (U) Light-Yellow 1 (09/25/23 6:45 AM) Normal Yellow [facility] UA Auto SS Comment on above: Interpretive Data: M icroscopic readings are only performed on those samples that meet specific criteria set forth by [facility]. Glucose Ql (U) 4+ mg/dL Invalid Interpretation Code Negativemg/d L [facility] UA Auto SS Ketones Auto test strip Ql (U) Trace mg/dL Invalid Interpretation Code Negativemg/d L [facility] UA Auto SS pH (U) 5.0 *NA* (09/25/23 6:45 AM) Invalid Interpretation Code 5.0 - 9.0 [facility] UA Auto SS Specific gravity (U) [Rel density] 1.027 *NA* (09/25/23 6:45 AM) Invalid Interpretation Code 1.005 - 1.030 [facility] UA Auto SS URINALYSISOrdered By: Kevin barnes on 09-25-2023 UA Spec Desc Clean Catch (09/25/23 6:45 AM) Normal [facility] UA Auto SS eGFROrdered By: Casper on 09-25-2023 eGFR 111 mL/min/1.73 m2 Normal >=59 [facility] Comment on above: Order Comment: Order added by Discern Expert. Performed By: #### 1 [id number] #### [facility] [address] [place] [address] CHEMISTRYOrdered By: [employer] on 09-19-2023 Albumin [Mass/Vol] 4.4 g/dL Normal [...] Chem CHEMISTRYOrdered By: Winnie Eddy on 09-19-2023 Albumin DL <= 20 mg/L (U) [Mass/Vol] mg/dL Normal 0.0 - 1.9 mg/dL [facility] Albumin/Creatinine DL <= 20 mg/L (U) [Mass ratio] NOT CALCULATED Invalid Interpretation Code 0.0 - 30.0 [facility] Comment on above: Interpretive Data: 3 0-300 mg/g Cr indicates an increased risk for diabetic nephropathy. >300 mg/g Cr is consistent with clinical nephropathy. HbA1c (Bld) [Mass fraction] 5.6 % Normal <=5.9% [facility] ChemAutoSS U Creatinine 95.6 mg/dL Invalid Interpretation Code [facility] CMPon 09-19-2023 Albumin [Mass/Vol] 4.4 g/dL Normal 3.3-5.0 [facility] Comment on above: Performed By: #### 2 [id number] #### [facility] [address] [place] [address] Albumin/Globulin (S) [Mass conc ratio] 1.6 Normal 1.1-2.2 [facility] Comment on above: Performed By: #### 2 [id number] #### [facility] [address] [place] [address] ALP [Catalytic activity/Vol] 102 Int._Unit/L High 21-98 [facility] Comment on above: Performed By: #### 2 [id number] #### [facility] [address] [place] [address] ALT No additional P-5'-P [Catalytic activity/Vol] 8 Int._Unit/L Normal 6-46 [facility] Comment on above: Performed By: #### 2 [id number] #### [facility] [address] [place] [address] Anion gap [Moles/Vol] 16 mmol/L Normal 6-16 [facility] Comment on above: Performed By: #### 2 [id number] #### [facility] [address] [place] [address] AST [Catalytic activity/Vol] 16 Int._Unit/L Normal 5-43 [facility] Comment on above: Performed By: #### 2 [id number] #### [facility] [address] [place] [address] Bilirubin [Mass/Vol] 0.4 mg/dL Normal 0.0-1.1 [facility] Comment on above: Performed By: #### 2 [id number] #### [facility] [address] [place] [address] Calcium [Mass/Vol] 9.6 mg/dL Normal 8.9-11.1 [facility] Comment on above: Performed By: #### 2 [id number] #### [facility] [address] [place] [address] Chloride [Moles/Vol] 107 mmol/L Normal 101-111 [facility] Comment on above: Performed By: #### 2 [id number] #### [facility] [address] [place] [address] CO2 [Moles/Vol] 22 mmol/L Normal 21-31 [facility] Comment on above: Performed By: #### 2 [id number] #### [facility] [address] [place] [address] Creatinine [Mass/Vol] 0.9 mg/dL Normal 0.5-1.3 [facility] Comment on above: Performed By: #### 2 [id number] #### [facility] [address] [place] [address] Globulin (S) [Mass/Vol] 2.7 g/dL Normal 1.4-4.0 [facility] Comment on above: Performed By: #### 2 [id number] #### [facility] [address] [place] [address] Glucose [Mass/Vol] 79 mg/dL Normal 55-199 [facility] Comment on above: Performed By: #### 2 [id number] #### [facility] [address] [place] [address] Potassium [Moles/Vol] 4.4 mmol/L Normal 3.5-5.3 [facility] Comment on above: Performed By: #### 2 [id number] #### [facility] [address] [place] [address] Protein [Mass/Vol] 7.1 g/dL Normal 6.0-7.8 [facility] Comment on above: Performed By: #### 2 [id number] #### [facility] [address] [place] [address] Sodium [Moles/Vol] 141 mmol/L Normal 135-145 [facility] Comment on above: Performed By: #### 2 [id number] #### [facility] [address] [place] [address] Urea nitrogen [Mass/Vol] 24 mg/dL High 5-21 [facility] Comment on above: Performed By: #### 2 [id number] #### [facility] [address] [place] [address] Urea nitrogen/Creatinine [Mass ratio] 27 No Units High 10-20 [facility] Comment on above: Performed By: #### 2 [id number] #### [facility] [address] [place] [address] [id number] 09-19-2023 HbA1c (Bld) [Mass fraction] 5.6 % Normal <=5.9 [facility] Comment on above: Performed By: #### 7 [id number] #### [facility] [address] [place] [address] U MA/Cr Ratioon 09-19-2023 Albumin DL <= 20 mg/L (U) [Mass/Vol] mg/dL Normal 0.0-1.9 [facility] Comment on above: Performed By: #### 1 [id number] #### [facility] [address] [place] [address] Albumin/Creatinine DL <= 20 mg/L (U) [Mass ratio] NOT CALCULATED Invalid Interpretation Code .0-30.0 [facility] Comment on above: Result Comment: 30-3 00 mg/g Cr indicates an increased risk for diabetic nephropathy. >300 mg/g Cr is consistent with clinical nephropathy. Performed By: #### 1 [id number] #### [facility] [address] [place] [address] U Creatinine 95.6 mg/dL Invalid Interpretation Code [facility] Comment on above: Performed By: #### 1 [id number] #### [facility] [address] [place] [address] URINALYSISOrdered By: SYSTEM SYSTEM on 09-19-2023 Bilirubin Ql (U) Negative Normal Negativemg/ d L [facility] UA Auto SS Clarity (U) Clear (09/19/23 10:39 AM) Normal Clear [facility] UA Auto SS Color (U) Light-Yellow 1 (09/19/23 10:39 AM) Normal Yellow [facility] UA Auto SS Comment on above: Interpretive Data: M icroscopic readings are only performed on those samples that meet specific criteria set forth by [facility]. Glucose Ql (U) 4+ mg/dL Invalid Interpretation Code Negativemg/d L [facility] UA Auto SS Hemoglobin Auto test strip (U) [Mass/Vol] Negative Normal Negativemg/d L [facility] UA Auto SS Ketones Auto test strip Ql (U) Negative Normal Negativemg/d L [facility] UA Auto SS Leukocyte esterase Auto test strip Ql (U) Negative Normal NegativeLeu/ uL [facility] UA Auto SS Nitrite Auto test strip Ql (U) Negative Normal Negativemg/d L [facility] UA Auto SS pH (U) 5.5 *NA* (09/19/23 10:39 AM) Invalid Interpretation Code 5.0 - 9.0 [facility] UA Auto SS Protein Ql (U) Negative Normal Negativemg/d L [facility] UA Auto SS Specific gravity (U) [Rel density] 1.026 *NA* (09/19/23 10:39 AM) Invalid Interpretation Code 1.005 - 1.030 [facility] UA Auto SS Urobilinogen (U) [Mass/Vol] Negative Normal Negativemg/d L [facility] UA Auto SS URINALYSISOrdered By: Yoana Carver on 09-19-2023 UA Spec Desc Clean Catch (09/19/23 10:39 AM) Normal [facility] UA Auto SS Urinalysis with Microon Bilirubin Ql (U) Negative Normal Negative [facility] Comment on above: Performed By: #### 4 [id number] #### [facility] [address] [place] [address] Clarity (U) Clear Normal Clear [facility] Comment on above: Performed By: #### 4 [id number] #### [facility] [address] [place] [address] Color (U) Light-Yellow Normal Yellow [facility] Comment on above: Result Comment: Micr oscopic readings are only performed on those samples that meet specific criteria set forth by [facility]. Performed By: #### 4 [id number] #### [facility] [address] [place] [address] Glucose Ql (U) 4+ mg/dL Abnormal Negative [facility] Comment on above: Performed By: #### 4 [id number] #### [facility] [address] [place] [address] Hemoglobin Auto test strip (U) [Mass/Vol] Negative Normal Negative [facility] Comment on above: Performed By: #### 4 [id number] #### [facility] [address] [place] [address] Ketones Auto test strip Ql (U) Negative Normal Negative [facility] Comment on above: Performed By: #### 4 [id number] #### [facility] [address] [place] [address] Leukocyte esterase Auto test strip Ql (U) Negative Normal Negative [facility] Comment on above: Performed By: #### 4 [id number] #### [facility] [address] [place] [address] Nitrite Auto test strip Ql (U) Negative Normal Negative [facility] Comment on above: Performed By: #### 4 [id number] #### [facility] [address] [place] [address] pH (U) 5.5 [pH] Invalid Interpretation Code 5.0-9.0 [facility] Comment on above: Performed By: #### 4 [id number] #### [facility] [address] [place] [address] Protein Ql (U) Negative Normal Negative [facility] Comment on above: Performed By: #### 4 [id number] #### [facility] [address] [place] [address] Specific gravity (U) [Rel density] 1.026 Invalid Interpretation Code 1.005-1.030 [facility] Comment on above: Performed By: #### 4 [id number] #### [facility] [address] [place] [address] Type of Urine collection method Clean Catch Normal [facility] Comment on above: Performed By: #### 4 [id number] #### [facility] [address] [place] [address] Urobilinogen (U) [Mass/Vol] Negative Normal Negative [facility] Comment on above: Performed By: #### 4 [id number] #### [facility] [address] [place] [address] eGFRon 09-19-2023 eGFR 82 mL/min/1.73 m2 Normal >=59 [facility] Comment on above: Order Comment: Order added by Discern Expert. Performed By: #### 1 [id number] #### [facility] [address] [place] [address] XR Chest Single Viewon 08-10 XR Chest [...] mGy = na DAP = na Normal [facility] BMPon 08-10-2023 Anion gap [Moles/Vol] 13 mmol/L Normal 6-16 [facility] Comment on above: Performed By: #### 2 [id number] #### [facility] [address] [place] [address] Calcium [Mass/Vol] 9.3 mg/dL Normal 8.9-11.1 [facility] Comment on above: Performed By: #### 2 [id number] #### [facility] [address] [place] [address] Chloride [Moles/Vol] 107 mmol/L Normal 101-111 [facility] Comment on above: Performed By: #### 2 [id number] #### [facility] [address] [place] [address] CO2 [Moles/Vol] 25 mmol/L Normal 21-31 [facility] Comment on above: Performed By: #### 2 [id number] #### [facility] [address] [place] [address] Creatinine [Mass/Vol] 0.9 mg/dL Normal 0.5-1.3 [facility] Comment on above: Performed By: #### 2 [id number] #### [facility] [address] [place] [address] Glucose [Mass/Vol] 107 mg/dL Normal 55-199 [facility] Comment on above: Performed By: #### 2 [id number] #### [facility] [address] [place] [address] Potassium [Moles/Vol] 5.3 mmol/L Normal 3.5-5.3 [facility] Comment on above: Performed By: #### 2 [id number] #### [facility] [address] [place] [address] Sodium [Moles/Vol] 140 mmol/L Normal 135-145 [facility] Comment on above: Performed By: #### 2 [id number] #### [facility] [address] [place] [address] Urea nitrogen [Mass/Vol] 15 mg/dL Normal 5-21 [facility] Comment on above: Performed By: #### 2 [id number] #### [facility] [address] [place] [address] Urea nitrogen/Creatinine [Mass ratio] 17 No Units Normal 10-20 [facility] Comment on above: Performed By: #### 2 [id number] #### [facility] [address] [place] [address] CBC w/ Auto Diffon 4 Basophils/100 WBC (Bld) 0.4 % Normal 0.0-2.0 [facility] Comment on above: Performed By: #### 2 [id number] #### [facility] [address] [place] [address] Basophils/Leukocytes Auto (Bld) [Pure # fraction] 0.0 E9/L Normal 0.0-0.2 [facility] Comment on above: Performed By: #### 2 [id number] #### [facility] [address] [place] [address] Eosinophils (Bld) [#/Vol] 0.3 E9/L Normal 0.0-0.5 [facility] Comment on above: Performed By: #### 2 [id number] #### [facility] [address] [place] [address] Eosinophils/100 WBC (Bld) 3.1 % Normal 0.0-8.0 [facility] Comment on above: Performed By: #### 2 [id number] #### [facility] [address] [place] [address] Erythrocyte distribution width (RBC) [Ratio] 14.5 % High 10.9-14.2 [facility] Comment on above: Performed By: #### 2 [id number] #### [facility] [address] [place] [address] Hematocrit (Bld) [Volume fraction] 41.3 % Normal 34.0-46.0 [facility] Comment on above: Performed By: #### 2 [id number] #### [facility] [address] [place] [address] Hemoglobin (Bld) [Mass/Vol] 14.0 g/dL Normal 12.0-16.0 [facility] Comment on above: Performed By: #### 2 [id number] #### [facility] [address] [place] [address] Lymphocytes (Bld) [#/Vol] 2.9 E9/L Normal 1.0-4.0 [facility] Comment on above: Performed By: #### 2 [id number] #### [facility] [address] [place] [address] Lymphocytes/100 WBC (Bld) 30.6 % Normal 14.0-50.0 [facility] Comment on above: Performed By: #### 2 [id number] #### [facility] [address] [place] [address] MCH (RBC) [Entitic mass] 31.1 pg Normal 27.0-34.0 [facility] Comment on above: Performed By: #### 2 [id number] #### [facility] [address] [place] [address] MCHC (RBC) [Mass/Vol] 33.8 g/dL Normal 31.4-36.0 [facility] Comment on above: Performed By: #### 2 [id number] #### [facility] [address] [place] [address] MCV (RBC) [Entitic vol] 92.2 fL Normal 80.0-100.0 [facility] Comment on above: Performed By: #### 2 [id number] #### [facility] [address] [place] [address] Monocytes (Bld) [#/Vol] 0.7 E9/L Normal 0.2-1.0 [facility] Comment on above: Performed By: #### 2 [id number] #### [facility] [address] [place] [address] Neutrophils (Bld) [#/Vol] 5.7 E9/L Normal 2.0-7.5 [facility] Comment on above: Performed By: #### 2 [id number] #### [facility] [address] [place] [address] Neutrophils/100 WBC (Bld) 58.9 % Normal 36.0-75.0 [facility] Comment on above: Performed By: #### 2 [id number] #### [facility] [address] [place] [address] Platelet 215.0 E9/L Normal 150.0-500.0 [facility] Comment on above: Performed By: #### 2 485236 #### [facility] [address] [place] [address] Platelet mean volume (Bld) [Entitic vol] 8.5 fL Normal 6.4-10.8 [facility] Comment on above: Performed By: #### 2 [id number] #### [facility] [address] [place] [address] RBC (Bld) [#/Vol] 4.5 E12/L Normal 4.3-5.9 [facility] Comment on above: Performed By: #### 2 [id number] #### [facility] [address] [place] [address] WBC corrected for nucl RBC Auto (Bld) [#/Vol] 9.6 E9/L Normal 4.0-11.0 [facility] Comment on above: Performed By: #### 2 [id number] #### [facility] [address] [place] [address] CHEMISTRYOrdered By: SYSTEM SYSTEM on 08-10-2023 Anion gap [Moles/Vol] 13 mmol/L Normal 6 [...] 145 mmol/L Remisol Chem Urea nitrogen [Mass/Vol] 15 mg/dL Normal 5 - 21 mg/dL Remisol Chem Urea nitrogen/Creatinine [Mass ratio] 17 mg/mg Normal 10 - 20 Remisol Chem COAGULATIONOrdered By: Michelle Palumbo on 08-10-2023 aPTT Coag (PPP) [Time] 30.5 s Normal 25.1 - 36.5 second(s) [facility] Comment on above: Interpretive Data: Rober pang 15 days - 4 weeks 1 - [...] the same coagulation reagent and instrumentation as [facility]. Currently there are no coagulation studies available worldwide for children to 14 days, and no normal ranges. Heparin therapeutic range (represented by Anti-Factor Xa activity of 0.2 - 0.4 U/mL) corresponds to PTT of 56.6 - 109.0 sec. INR Coag (PPP) [Relative time] 0.80 {INR} Invalid Interpretation Code [facility] Comment on above: Interpretive Data: I NR results are specifically intended to assess patients stabilized on long-term Anticoagulation therapy suggested INR s Less Intensive Anticoagulation 2.0 3.0 Conventional Range 3.0 4.5 PT Coag (PPP) [Time] 8.9 s Low 9.4 - 1 2.5 second(s) [facility] Comment on above: Interpretive Data: [...] the same coagulation reagent and instrumentation as [facility]. Currently there are no coagulation studies available worldwide for children to 14 days, and no normal ranges. Consent for Treatmenton 07-15 Consent for Treatment [id number] .00TIFF Normal [facility] Discharge Instructionson Discharge Instructions [id number] .[id number] Normal [facility] ED Clinical Summaryon 2023 ED Clinical Summary [address] [address] ED Clinical Summary Person Information Name: TISH VARGAS [place] Age: 42 Years : 1980 Sex: Female Language: Chinese PCP: YANET CHAIREZ CNP Marital Status: Phone: [phone] Visit Id: Visit Reason: Shortness of breath; [...] 08/10/2023 22:15:29 08/10/2023 22:15:29 08/10/2023 22:15:29 [facility] [phone] PHYS DOC NOTES: MEDICAL INFORMATION: Prescriptions Given: [...] EDUCATION INFORMATION: Instructions: Nonspecific Chest Pain, Adult, Tzzn-js-Ekdz Follow up: With: Address: When: Kook Vasquez [address], (more content not included)... Normal [facility] ED Note-Physicianon 08-10-19 ED Note-Physician Basic Information Time Seen: Joseph Kent PA-C 08/10/2023 19:06 Chief Complaint started with chest [...] stents. Reports that she is unsure which cattyman she follows up with. Denies any nausea [...] and Complexity of Problems Differential Diagnosis: [] [facility] Data External documents reviewed: [] My EKG [...] STAT, Sta (more content not included)... Normal [facility] Comment on above: Result Comment: Elec tronically Signed By: Donte GUZMAN, Joseph Chávez\.br\Date and Time Signed: 08/10/23 23:07 EDT\.br\Electronically Co-Signed By: Juan Arnold DO\.br\Date and Time Co-Signed: 08/10/23 23:55 EDT ED [...] these instructions at home: Medicines ? Take gbml-hax-gzlbqag and prescription medicines only as told by [...] Eating a heart-healthy diet. A diet and student finance specialist (dietitian) can help you to learn healthy [...] provider. Document Revised: 05/16/2021 Document Reviewed: 05/16/2021 [employer] Patient Education ? 2022 [employer] [facility] ED Patient Summaryon 024 ED Patient Summary [address] [address] Patient Discharge Instructions Person Information Name: TISH VARGAS Age: 42 Years Arrival Date: 08/10/2023 19:03:55 Discharge Diagnosis: Nonspecific chest pain Primary Care Physician: YANET CHAIREZ CNP Provider Information Primary Provider: Juan Arnold DO [facility] Medical Assistant:None The exam and treatment you received in the Emergency Department were for an urgent problem and are not intended as complete care. It is important that you follow up with a doctor, nurse practitioner, or physician?s railway yard assistant for ongoing care. If your symptoms [...] Follow-up Instructions: With: Address: When: Koko Vasquez [address] [place], [place] [id number] Business (1) In 3 days 08/13/2023 Comments: Call Dr for diagnosis based follow up With: Address: When: YANET CHAIREZ [address] [place], [place] [phone] [facility] (1) In 3 days 08/13/2023 Comments: Call Dr for diagnosis based follow up In the event that this physician does not participate in your insurance network, please consult with your insurance company to find a nearby participating provider. Patient Education Materials: Nonspecific Chest Pain, Adult, Zczv-ym-Jolc A MESSAGE TO ALL PATIENTS REGARDING OPIOIDS PRESCRIPTION OPIOIDS: WHAT YOU NEED TO KNOW Prescription opioids can be used to help relieve kixvgfbw-ez-exfgnx pain and are often prescribed following a [...] Visit [email or web address] (more content not included)... Normal [facility] HEMATOLOGYOrdered By: SYSTEM SYSTEM on 08-10-2023 [...] Remisol Heme Monitor Recordon 08-10-2023 Monitor Record [id number]# 1.00TIFF Normal [facility] No Panel InformationOrdered By: SYSTEM SYSTEM on 08-10-2023 Troponin pg/mL Low 10.10 - 27.10 pg/mL [facility] Comment on above: Interpretive Data: T he 95% CI (Confidence Interval) PPV (Positive Predictive Value) for myocardial infarction in females is 38 pg/mL, in males 51 pg/mL. The results should be used in conjunction with clinical conditions of myocardial infarction. (Access High Sensitivity Troponin I Instructions For Use, Meryl [place], October 2017) PT & PTTon 08-10-2023 aPTT Coag (PPP) [Time] 30.5 second(s) Normal 25.1-36.5 [facility] Comment on above: Result Comment: Para [...] the same coagulation reagent and instrumentation as [facility]. Currently there are no coagulation studies available worldwide for children to 14 days, and no normal ranges. Heparin therapeutic range (represented by Anti-Factor Xa activity of 0.2 - 0.4 U/mL) corresponds to PTT of 56.6 - 109.0 sec. Performed By: #### 1 [id number] #### [facility] [address] [place] [address] INR Coag (PPP) [Relative time] 0.80 {INR} Invalid Interpretation Code [facility] Comment on above: Result Comment: INR results are specifically intended to assess patients stabilized on long-term Anticoagulation therapy suggested INR?s ?Less Intensive Anticoagulation? 2.0 ? 3.0 Conventional Range 3.0 ? 4.5 Performed By: #### 1 [id number] #### [facility] [address] [place] [address] PT Coag (PPP) [Time] 8.9 second(s) Low 9.4-12.5 [facility] Comment on above: Result Comment: 15 d [...] the same coagulation reagent and instrumentation as [facility]. Currently there are no coagulation studies available worldwide for children to 14 days, and no normal ranges. Performed By: #### 1 [id number] #### [facility] [address] [place] [address] Troponin 0 Hr.on 08-10-2023 Troponin I.cardiac [Mass/Vol] ng/mL Low 10.10-27.10 [facility] Comment on above: Result Comment: The 95% CI (Confidence Interval) PPV (Positive Predictive Value) for myocardial infarction in females is 38 pg/mL, in males 51 pg/mL. The results should be used in conjunction with clinical conditions of myocardial infarction. (Access High Sensitivity Troponin I Instructions For Use, Meryl [place], October 2017) Performed By: #### 1 [id number] #### [facility] [address] [place] [address] Troponin 1 Hr.on 08-10-2023 Troponin I.cardiac [Mass/Vol] ng/mL Low 10.10-27.10 [facility] Comment on above: Order Comment: 2019 Result Comment: The 95% CI (Confidence Interval) PPV (Positive Predictive Value) for myocardial infarction in females is 38 pg/mL, in males 51 pg/mL. The results should be used in conjunction with clinical conditions of myocardial infarction. (Access High Sensitivity Troponin I Instructions For Use, [employer], October 2017) Performed By: #### 1 [id number] #### [facility] [address] [place] [address] eGFRon 08-10-2023 eGFR 82 mL/min/1.73 m2 Normal >=59 [facility] Comment on above: Order Comment: Order added by Discern Expert. Performed By: #### 1 [id number] #### [facility] [address] [place] [address] C Urineon 08-01-2023 Bacteria identified Cx Nom (U) Microbiology PROCEDURE: Urine Culture [R1] SOURCE: U CleanCatch BODY SITE: COLLECTED DATE/TIME: 07/29/2023 23:33 EDT RECEIVED DATE/TIME: 07/30/2023 00:29 EDT START DATE/TIME: 07/30/2023 00:29 EDT FREE TEXT SOURCE: Phoebe Dubon PA-C. Ling GUZMAN, Phoebe Rizo. FINAL REPORTS Final Report [] Verified Date/Time: 08/01/2023 09:01 EDT <10,000 cfu/ml Mixed skin contaminants Performing Locations R1: This test was performed at: [employer] [facility], [address] [place] [address], [address] , , Normal [facility] Comment on above: Performed By: #### 2 [id number] #### [facility] [address] [place] [address] B hCG Qualon 07-30-2023 Beta HCG ( test) Ql Negative Normal [facility] Comment on above: Performed By: #### 2 [id number] #### [facility] [address] [place] [address] BMPon 07-30-2023 Anion gap [Moles/Vol] 12 mmol/L Normal 6-16 [facility] Comment on above: Performed By: #### 2 [id number] #### [facility] [address] [place] [address] Calcium [Mass/Vol] 9.6 mg/dL Normal 8.9-11.1 [facility] Comment on above: Performed By: #### 2 [id number] #### [facility] [address] [place] [address] Chloride [Moles/Vol] 107 mmol/L Normal 101-111 [facility] Comment on above: Performed By: #### 2 [id number] #### [facility] [address] [place] [address] CO2 [Moles/Vol] 24 mmol/L Normal 21-31 [facility] Comment on above: Performed By: #### 2 [id number] #### [facility] [address] [place] [address] Creatinine [Mass/Vol] 0.8 mg/dL Normal 0.5-1.3 [facility] Comment on above: Performed By: #### 2 [id number] #### [facility] [address] [place] [address] Glucose [Mass/Vol] 103 mg/dL Normal 55-199 [facility] Comment on above: Performed By: #### 2 [id number] #### [facility] [address] [place] [address] Potassium [Moles/Vol] 4.3 mmol/L Normal 3.5-5.3 [facility] Comment on above: Performed By: #### 2 [id number] #### [facility] [address] [place] [address] Sodium [Moles/Vol] 139 mmol/L Normal 135-145 [facility] Comment on above: Performed By: #### 2 [id number] #### [facility] [address] [place] [address] Urea nitrogen [Mass/Vol] 16 mg/dL Normal 5-21 [facility] Comment on above: Performed By: #### 2 [id number] #### [facility] [address] [place] [address] Urea nitrogen/Creatinine [Mass ratio] 20 No Units Normal 10-20 [facility] Comment on above: Performed By: #### 2 [id number] #### [facility] [address] [place] [address] CBC w/ Auto Diffon 4 Basophils/100 WBC (Bld) 0.7 % Normal 0.0-2.0 [facility] Comment on above: Performed By: #### 2 [id number] #### [facility] [address] [place] [address] Basophils/Leukocytes Auto (Bld) [Pure # fraction] 0.0 E9/L Normal 0.0-0.2 [facility] Comment on above: Performed By: #### 2 [id number] #### [facility] [address] [place] [address] Eosinophils (Bld) [#/Vol] 0.2 E9/L Normal 0.0-0.5 [facility] Comment on above: Performed By: #### 2 [id number] #### [facility] [address] [place] [address] Eosinophils/100 WBC (Bld) 2.7 % Normal 0.0-8.0 [facility] Comment on above: Performed By: #### 2 [id number] #### [facility] [address] [place] [address] Erythrocyte distribution width (RBC) [Ratio] 14.1 % Normal 10.9-14.2 [facility] Comment on above: Performed By: #### 2 [id number] #### [facility] [address] [place] [address] Hematocrit (Bld) [Volume fraction] 43.6 % Normal 34.0-46.0 [facility] Comment on above: Performed By: #### 2 [id number] #### [facility] [address] [place] [address] Hemoglobin (Bld) [Mass/Vol] 14.7 g/dL Normal 12.0-16.0 [facility] Comment on above: Performed By: #### 2 [id number] #### [facility] [address] [place] [address] Lymphocytes (Bld) [#/Vol] 2.7 E9/L Normal 1.0-4.0 [facility] Comment on above: Performed By: #### 2 [id number] #### [facility] [address] [place] [address] Lymphocytes/100 WBC (Bld) 40.4 % Normal 14.0-50.0 [facility] Comment on above: Performed By: #### 2 [id number] #### [facility] [address] [place] [address] MCH (RBC) [Entitic mass] 30.9 pg Normal 27.0-34.0 [facility] Comment on above: Performed By: #### 2 [id number] #### [facility] [address] [place] [address] MCHC (RBC) [Mass/Vol] 33.6 g/dL Normal 31.4-36.0 [facility] Comment on above: Performed By: #### 2 [id number] #### [facility] [address] [place] [address] MCV (RBC) [Entitic vol] 92.0 fL Normal 80.0-100.0 [facility] Comment on above: Performed By: #### 2 [id number] #### [facility] [address] [place] [address] Monocytes (Bld) [#/Vol] 0.4 E9/L Normal 0.2-1.0 [facility] Comment on above: Performed By: #### 2 [id number] #### [facility] [address] [place] [address] Neutrophils (Bld) [#/Vol] 3.3 E9/L Normal 2.0-7.5 [facility] Comment on above: Performed By: #### 2 [id number] #### [facility] [address] [place] [address] Neutrophils/100 WBC (Bld) 50.0 % Normal 36.0-75.0 [facility] Comment on above: Performed By: #### 2 [id number] #### [facility] [address] [place] [address] Platelet 208.0 E9/L Normal 150.0-500.0 [facility] Comment on above: Performed By: #### 2 288486 #### [facility] [address] [place] [address] Platelet mean volume (Bld) [Entitic vol] 8.4 fL Normal 6.4-10.8 [facility] Comment on above: Performed By: #### 2 [id number] #### [facility] [address] [place] [address] RBC (Bld) [#/Vol] 4.7 E12/L Normal 4.3-5.9 [facility] Comment on above: Performed By: #### 2 [id number] #### [facility] [address] [place] [address] WBC corrected for nucl RBC Auto (Bld) [#/Vol] 6.6 E9/L Normal 4.0-11.0 [facility] Comment on above: Performed By: #### 2 [id number] #### [facility] [address] [place] [address] CT Abdomen/Pelvis w/o Contra ston 07-30-2023 CT [...] Oral contrast amount in ml's: 0 Normal [facility] Discharge Instructionson Discharge Instructions [id number] Normal [facility] ED Clinical Summaryon 2023 ED Clinical Summary [address] [address] ED Clinical Summary Person Information Name: ALICIA TISH [facility] Age: 42 Years : 1980 Sex: Female Language: Chinese PCP: YANET CHAIREZ CNP Marital Status: Phone: [phone] Visit Id: Visit Reason: Chest pain; Nausea; [...] 07/30/2023 02:22:55 07/30/2023 02:22:55 07/30/2023 02:22:55 ADDRESS: [address] [facility] [id number] PHYS DOC NOTES: MEDICAL INFORMATION: Prescriptions Given: New Medications [facility]/pharmacy #[id number], [address], [place] [id number], [phone] cephalexin (Keflex 500 mg Cap) 1 Capsules By Mouth 3 times a day for 5 Days. Refills: 0. phenazopyridine (Pyridium 100 mg Tab) 1 Tablets By Mouth 3 times a day for 3 Days. Refills: 0. Medications to Continue Taking That Have Changed [facility]/pharmacy #[id number], [address] [place], [place] [id number], [phone] START: ondansetron (Zofran ODT 4 mg Tab-Dis) [...] 0. nitrog (more content not included)... Normal [facility] ED Note-Physicianon 07-30-19 ED Note-Physician Basic [...] and Complexity of Problems Differential Diagnosis: [] [facility] Data External documents reviewed: [] My EKG [...] is reviewed just filled a prescription for [place] on the . CT imaging does not show any obstructing kidney stones. I discussed findings with patient patient requesting pain medication for home. Explained I am not comfortable as there is no indication as she has no obstructing kidney stone as she also has just filled the prescription for [place] 2 days ago. Patient has multiple short-term [...] day(s), # 15 cap(s), Refills(s) 0, Pharmacy: [facility]/pharmacy #[id number], 160, cm, 07/29/23 21:34:00 EDT, [...] q8hr, # 12 tab(s), Refills(s) 0, Pharmacy: [facility]/pharmacy #[id number], 160, cm, 07/29/23 21:34:00 EDT, Height/Length Dosing, 119, kg, 07/29/23 21:34:00 EDT, Weight Dosing ondansetron, 4 mg = 2 mL, Injection, IV Push, Once, Stop date 07/29/23 23:22:00 EDT, STAT, Start date 07/29/23 23:22:00 EDT, 07/29/23 23:22:00 EDT oxycodone, 5 (more content not included)... Normal [facility] Comment on above: Result Comment: Ada jimenez Signed By: Janes Bowles DO.graham\Date and Time Signed: 07/30/23 03:06 EDT ED [...] these instructions at home: Medicines ? Take ocki-jdi-uqolbeb and prescription medicines only as told by [...] provider. Document Revised: 10/12/2020 Document Reviewed: 10/12/2020 [employer] Patient Education ? 2022 [employer] Orthopedics Flank Pain, Adult Flank pain [...] as told by your doctor. ? Take txvw-cno-iqllftf and prescription medicines only as told by [...] short of (more content not included)... Normal [facility] ED Patient Summaryon 024 ED Patient Summary [place] [id number] Patient Discharge Instructions Person Information Name: TISH VARGAS Age: 42 Years Arrival Date: 07/29/2023 21:12:09 Discharge Diagnosis: Acute UTI (urinary tract infection); Flank pain Primary Care Physician: YANET CHAIREZ CNP Provider Information Primary Provider: Janes Bowles DO [facility] Medical Assistant:None The exam and treatment you received in the Emergency Department were for an urgent problem and are not intended as complete care. It is important that you follow up with a doctor, nurse practitioner, or physician?s railway yard assistant for ongoing care. If your symptoms become worse or you do not improve as expected and you are unable to reach your usual health care provider, you should return to the Emergency Department. We are available 24 hours a day. ALICIATISH has been given the following list of patient education materials, prescriptions and follow-up instructions: Follow-up Instructions: With: Address: When: YANET [address] [facility] [place], [place] [phone] Business (1) In 3 days 08/02/2023 Comments: [...] Patient Education Materials: Urinary Tract Infection, Adult, Hdbq-fe-Tvmr; Flank Pain, Adult, Emlv-dp-Ovvp A MESSAGE TO ALL PATIENTS REGARDING OPIOIDS PRESCRIPTION OPIOIDS: WHAT YOU NEED TO KNOW Prescription opioids can be used to help relieve inyfqqtw-xo-igthiw pain and are often prescribed following a [...] Drug Administr (more content not included)... Normal [facility] Hep Func Panelon 07-30-2023 Albumin [Mass/Vol] 4.5 g/dL Normal 3.3-5.0 [facility] Comment on above: Performed By: #### 2 [id number] #### [facility] [address] [place] [address] Albumin/Globulin (S) [Mass conc ratio] 2.0 Normal 1.1-2.2 [facility] Comment on above: Performed By: #### 2 [id number] #### [facility] [address] [place] [address] ALP [Catalytic activity/Vol] 99 Int._Unit/L High 21-98 [facility] Comment on above: Performed By: #### 2 [id number] #### [facility] [address] [place] [address] ALT No additional P-5'-P [Catalytic activity/Vol] 10 Int._Unit/L Normal 6-46 [facility] Comment on above: Performed By: #### 2 [id number] #### [facility] [address] [place] [address] AST [Catalytic activity/Vol] 17 Int._Unit/L Normal 5-43 [facility] Comment on above: Performed By: #### 2 [id number] #### [facility] [address] [place] [address] Bilirubin [Mass/Vol] 0.5 mg/dL Normal 0.0-1.1 [facility] Comment on above: Performed By: #### 2 [id number] #### [facility] [address] [place] [address] Bilirubin.direct [Mass/Vol] 0.1 mg/dL Normal 0.0-0.4 [facility] Comment on above: Performed By: #### 2 [id number] #### [facility] [address] [place] [address] Bilirubin.indirect [Mass or moles/Vol] 0.4 mg/dL Normal 0.1-0.9 [facility] Comment on above: Performed By: #### 2 [id number] #### [facility] [address] [place] [address] Globulin (S) [Mass/Vol] 2.3 g/dL Normal 1.4-4.0 [facility] Comment on above: Performed By: #### 2 290285 #### [facility] [address] [place] [address] Protein [Mass/Vol] 6.8 g/dL Normal 6.0-7.8 [facility] Comment on above: Performed By: #### 2 195363 #### [facility] [address] [place] [address] Lipase Levelon 07-30-2023 Lipase [Catalytic activity/Vol] 22 U/L Normal 13-58 [facility] Comment on above: Performed By: #### 2 [id number] #### [facility] [address] [place] [address] RAD - Preliminary Cat Scan R eporton 07-30-2023 RAD - Preliminary Cat Scan Report [id number] .[id number] Normal [facility] Troponin 0 Hr.on 07-30-2023 Troponin 2.60 pg/mL Low 10.10-27.10 [facility] Comment on above: Result Comment: The 95% CI (Confidence Interval) PPV (Positive Predictive Value) for myocardial infarction in females is 38 pg/mL, in males 51 pg/mL. The results should be used in conjunction with clinical conditions of myocardial infarction. (Access High Sensitivity Troponin I Instructions For Use, [employer], October 2017) Performed By: #### 1 [id number] #### [facility] [address] [place] [address] UA with Cult Rflxon 07-30-19 24 Bacteria Auto Ql (U) 2+ /HPF Abnormal Trace Fish er [facility] Comment on above: Performed By: #### 4 [id number] #### [facility] [address] [place] [address] Bilirubin Ql (U) Negative Normal Negative [facility] Comment on above: Performed By: #### 4 [id number] #### [facility] [address] [place] [address] Clarity (U) Turbid Abnormal Clear [facility] Comment on above: Performed By: #### 4 [id number] #### [facility] [address] [place] [address] Color (U) Light-Chicot Abnormal Yellow [facility] Comment on above: Result Comment: Micr oscopic readings are only performed on those samples that meet specific criteria set forth by [facility]. Performed By: #### 4 [id number] #### [facility] [address] [place] [address] Epithelial cells.squamous Auto (Urine sed) [#/Area] 3-4 Abnormal 0-2 [facility] Comment on above: Performed By: #### 4 [id number] #### [facility] [address] [place] [address] Glucose Ql (U) 4+ mg/dL Abnormal Negative [facility] Comment on above: Performed By: #### 4 [id number] #### [facility] [address] [place] [address] Hemoglobin Auto test strip (U) [Mass/Vol] 3+ mg/dL Abnormal Negative [facility] Comment on above: Performed By: #### 4 [id number] #### [facility] [address] [place] [address] Ketones Auto test strip Ql (U) Negative Normal Negative [facility] Comment on above: Performed By: #### 4 [id number] #### [facility] [address] [place] [address] Leukocyte esterase Auto test strip Ql (U) 500 Simona/uL Abnormal Negative [facility] Comment on above: Performed By: #### 4 [id number] #### [facility] [address] [place] [address] Mucus Auto Ql (U) Trace Normal Negative [facility] Comment on above: Performed By: #### 4 [id number] #### [facility] [address] [place] [address] Nitrite Auto test strip Ql (U) Negative Normal Negative [facility] Comment on above: Performed By: #### 4 [id number] #### [facility] [address] [place] [address] pH (U) 5.5 [pH] Invalid Interpretation Code 5.0-9.0 [facility] Comment on above: Performed By: #### 4 [id number] #### [facility] [address] [place] [address] Protein Ql (U) 1+ mg/dL Abnormal Negative [facility] Comment on above: Performed By: #### 4 [id number] #### [facility] [address] [place] [address] RBC Ql (U) 4-20 Abnormal 0-3 [facility] Comment on above: Performed By: #### 4 [id number] #### [facility] [address] [place] [address] Specific gravity (U) [Rel density] 1.019 Invalid Interpretation Code 1.005-1.030 [facility] Comment on above: Performed By: #### 4 [id number] #### [facility] [address] [place] [address] Urobilinogen (U) [Mass/Vol] Negative Normal Negative [facility] Comment on above: Performed By: #### 4 [id number] #### [facility] [address] [place] [address] WBC Auto (Urine sed) [#/Area] 0-5 Normal 0-5 [facility] Comment on above: Performed By: #### 4 [id number] #### [facility] [address] [place] [address] eGFRon 07-30-2023 eGFR 94 mL/min/1.73 m2 Normal >=59 [facility] Comment on above: Order Comment: Order added by Discern Expert. Performed By: #### 1 [id number] #### [facility] [address] [place] [address] CHEMISTRYOrdered By: SYSTEM SYSTEM on 07-29-2023 Albumin [...] Sensitivity Troponin I Instructions For Use, Meryl [place], October 2017) Urea nitrogen [Mass/Vol] 16 mg/dL Normal 5 - 21 mg/dL Remisol Chem Urea nitrogen/Creatinine [Mass ratio] 20 mg/mg Normal 10 - 20 Remisol Chem Consent for Treatmenton 07-14 Consent for Treatment [id number] .00TIFF Normal [facility] HEMATOLOGYOrdered By: SYSTEM SYSTEM on 07-29-2023 [...] test) Ql Negative (07/29/23 11:35 PM) Normal [facility] UA with Cult Rflxon 07-29-19 Type of Urine collection method Clean Catch Normal [facility] Comment on above: Performed By: #### 4 [id number] #### [facility] [address] [place] [address] URINALYSISOrdered By: Bruce Woo on 07-29-2023 Bacteria [...] Clear [facility] UA Auto SS Color (U) Light-Chicot 1 *ABN* (07/29/23 11:33 PM) Invalid Interpretation Code Yellow [facility] UA Auto SS Comment on above: Interpretive Data: M icroscopic readings are only performed on those samples that meet specific criteria set forth by [facility]. Glucose Ql (U) 4+ mg/dL Invalid Interpretation Code Negativemg/d L [facility] UA Auto SS Hemoglobin Auto test strip (U) [Mass/Vol] 3+ mg/dL Invalid Interpretation Code Negativemg/d L [facility] UA Auto SS Ketones Auto test strip Ql (U) Negative Normal Negativemg/d L [facility] Auto SS Leukocyte esterase Auto test strip Ql (U) 500 Simona/uL Simona/uL Invalid Interpretation Code NegativeLeu/ uL [facility] UA Auto SS Nitrite Auto test strip Ql (U) Negative Normal Negativemg/d L [facility] UA Auto SS pH (U) 5.5 *NA* (07/29/23 11:33 PM) Invalid Interpretation Code 5.0 - 9.0 [facility] UA Auto SS Protein Ql (U) 1+ mg/dL Invalid Interpretation Code Negativemg/d L [facility] UA Auto SS Specific gravity (U) [Rel density] 1.019 *NA* (07/29/23 11:33 PM) Invalid Interpretation Code 1.005 - 1.030 [facility] UA Auto SS Urobilinogen (U) [Mass/Vol] Negative Normal Negativemg/d L [facility] UA Auto SS URINALYSISOrdered By: Phoebe Dubon on 07-29-2023 UA Spec Desc Clean Catch (07/29/23 11:33 PM) Normal [facility] UA Auto SS CT Abdomen/Pelvis w/o Contra [...] Oral contrast amount in ml's: 0 Normal [facility] Consent for Treatmenton 05-14 Consent for Treatment [id number] .00TIFF Normal [facility] Discharge Instructionson Discharge Instructions [id number]# 1.00TIFF Normal [facility] ED Clinical Summaryon 2023 ED Clinical Summary [place] [id number] ED Clinical Summary Person Information Name: TISH VARGAS [place] Age: 42 Years : 1980 Sex: Female Language: Chinese PCP: YANET CHAIREZ CNP Marital Status: Phone: [phone] Visit Id: Visit Reason: Nausea; Hematuria; Flank [...] 05/28/2023 15:54:36 05/28/2023 15:54:36 05/28/2023 15:54:36 ADDRESS: [address] [facility] [id number] PHYS DOC NOTES: MEDICAL INFORMATION: Prescriptions Given: New Medications [facility]/pharmacy #[id number], [address], [place] [id number], [phone] ibuprofen (ibuprofen 600 mg Tab) 1 Tablets By Mouth every 8 hours for 7 Days. Refills: 0. Medications to Continue Taking That Have Changed [facility]/pharmacy #[id number], [address], [place] [id number], [phone] START: acetaminophen-oxycodo ne (Percocet 5 mg-325 mg [...] Renal Colic Follow up: With: Address: When: YANET CHAIREZ (more content not included)... Normal [facility] ED Note-Physicianon 05-28-19 ED Note-Physician Basic [...] Making Patient seen and evaluated with the SUPERVISING LIBRARIAN student. I had a omjn-oc-ldlh interaction with the patient. I personally performed [...] for 3 day(s), 15 tab(s), Refill(s) 0, [facility]/pharmacy #[id number], 160, cm, 05/28/23 13:08:00 EDT, [...] Daily, # 10 cap(s), Refills(s) 0, Pharmacy: [facility]/pharmacy #[id number], 160, cm, 05/28/23 13:08:00 EDT, [...] results, tr (more content not included)... Normal [facility] Comment on above: Result Comment: Elec [...] that you are feeling: Medicines ? Take pesp-dwn-xavzxbt and prescription medicines only as told by [...] by passing a kidney stone. ? Take yfkf-qrv-btaadvn and prescription medicines only as told by [...] Reviewed: 11/04/2021 Elsevier Patient Education ? 2022 [employer] Normal [facility] ED Patient Summaryon 024 ED Patient Summary [address] [address] Patient Discharge Instructions Person Information Name: TISH VARGAS Age: 42 Years Arrival Date: 05/28/2023 12:57:53 Discharge Diagnosis: Renal colic Primary Care Physician: YANET CHAIREZ CNP Provider Information Primary Provider: Mikaela Judd M.D. [facility] Medical Assistant:Regis Purcell PA-C The exam and treatment you received in the Emergency Department were for an urgent problem and are not intended as complete care. It is important that you follow up with a doctor, nurse practitioner, or physician?s railway yard assistant for ongoing care. If your symptoms [...] With: Address: When: YANET CHAIREZ [address], [place] [phone] Business (1) In 3 days 05/31/2023 In the event that this physician does not participate in your insurance network, please consult with your insurance company to find a nearby participating provider. Patient Education Materials: Renal Colic A MESSAGE TO ALL PATIENTS REGARDING OPIOIDS PRESCRIPTION OPIOIDS: WHAT YOU NEED TO KNOW Prescription opioids can be used to help relieve gunswjho-nm-zjnhyt pain and are often prescribed following a [...] be struggling with addiction, tell your health residential care officer and ask for guidance or call [facility]?S National Helpline at 9-759-958-DZAS. n Source: (more content not included)... Normal [facility] UA With Cult Reflexon 2023 Bacteria LM Ql (Urine sed) TRACE Normal Trace [facility] Comment on above: Performed By: #### 1 [id number] #### [facility] [address] [place] [address] Bilirubin Ql (U) 1+ Abnormal Negative [facility] Comment on above: Performed By: #### 1 [id number] #### [facility] [address] [place] [address] Clarity (U) CLOUDY Abnormal Clear [facility] Comment on above: Performed By: #### 1 [id number] #### [facility] [address] [place] [address] Color (U) YELLOW Normal Yellow [facility] Comment on above: Performed By: #### 1 [id number] #### [facility] [address] [place] [address] Crystals LM Ql (Urine sed) Present Normal [facility] Comment on above: Performed By: #### 1 [id number] #### [facility] [address] [place] [address] Epithelial cells.squamous LM.HPF (Urine sed) [#/Area] 0-2 Normal 0-2 [facility] Comment on above: Performed By: #### 1 [id number] #### [facility] [address] [place] [address] Glucose Test strip (U) [Mass/Vol] 3+ Abnormal Negative [facility] Comment on above: Performed By: #### 1 [id number] #### [facility] [address] [place] [address] Hemoglobin Ql (U) 3+ Abnormal Negative [facility] Comment on above: Performed By: #### 1 [id number] #### [facility] [address] [place] [address] Ketones (U) [Mass/Vol] TRACE Invalid Interpretation Code Negative [facility] Comment on above: Performed By: #### 1 [id number] #### [facility] [address] [place] [address] [place].plasma/[place] .RBC (Bld) [Mass ratio] >75 Abnormal 0-3 [facility] Comment on above: Performed By: #### 1 [id number] #### [facility] [address] [place] [address] Nitrite Ql (U) Negative Normal Negative [facility] Comment on above: Performed By: #### 1 [id number] #### [facility] [address] [place] [address] pH (U) 6.0 [pH] Invalid Interpretation Code 5.0-9.0 [facility] Comment on above: Performed By: #### 1 [id number] #### [facility] [address] [place] [address] Protein (U) [Mass/Vol] TRACE Abnormal Negative [facility] Comment on above: Performed By: #### 1 [id number] #### [facility] [address] [place] [address] Specific gravity (U) [Rel density] >=1.030 Invalid Interpretation Code 1.005-1.030 [facility] Comment on above: Performed By: #### 1 [id number] #### [facility] [address] [place] [address] Type of Urine collection method Clean Catch Normal [facility] Comment on above: Performed By: #### 1 [id number] #### [facility] [address] [place] [address] Urobilinogen Qn (U) 0.2 {Lidya'U}/dL Normal 0.0-1.0 [facility] Comment on above: Performed By: #### 1 [id number] #### [facility] [address] [place] [address] WBC Auto Ql (U) Negative Normal Negative [facility] Comment on above: Performed By: #### 1 [id number] #### [facility] [address] [place] [address] WBC LM.HPF (Urine sed) [#/Area] 0-5 Normal 0-5 [facility] Comment on above: Performed By: #### 1 [id number] #### [facility] [address] [place] [address] URINALYSISOrdered By: Maira carmona on 05-28-2023 Bacteria [...] Interpretation Code Negative [facility] UA Auto SS [place].plasma/[place] .RBC (Bld) [Mass ratio] >75 /HPF Invalid Interpretation Code 0-3/HPF [facility] UA Auto SS Nitrite Ql (U) Negative (05/28/23 1:53 PM) Normal Negative [facility] UA Auto SS pH (U) 6.0 *NA* (05/28/23 1:53 PM) Invalid Interpretation Code 5.0 - 9.0 [facility] Auto SS Protein (U) [Mass/Vol] Trace *ABN* (05/28/23 1:53 PM) Invalid Interpretation Code Negative [facility] UA Auto SS Specific gravity (U) [Rel density] >=1.030 *NA* (05/28/23 1:53 PM) Invalid Interpretation Code 1.005 - 1.030 [facility] UA Auto SS UA Spec Desc Clean Catch (05/28/23 1:53 PM) Normal [facility] UA Auto SS Urobilinogen Qn (U) 0.2018980 {Lidya'U}/dL Normal 0.0 - 1.0 EU/dL [facility] UA Auto SS WBC Auto Ql (U) Negative (05/28/23 1:53 PM) Normal Negative [facility] UA Auto SS WBC LM.HPF (Urine sed) [#/Area] 0-5 /HPF Normal 0-5/HPF [facility] UA Auto SS CMPon 05-11-2023 Albumin [Mass/Vol] 4.3 g/dL Normal 3.3-5.0 [facility] Comment on above: Performed By: #### 2 [id number], [id number], [id number] ####[facility] [address] [place] [address] Albumin/Globulin [Mass ratio] 1.7 {ratio} Normal 1.1-2.2 [facility] Comment on above: Performed By: #### 2 846570, [id number], [id number] ####[facility] [address] [place] [address] Alk Phos 106 Int._Unit/L High 21-98 [facility] Comment on above: Performed By: #### 2 093941, [id number], [id number] ####[facility] [address] [place] [address] ALT 7 Int._Unit/L Normal 6-46 [facility] Comment on above: Performed By: #### 2 409775, [id number], [id number] ####[facility] [address] [place] [address] Anion gap [Moles/Vol] 12 mmol/L Normal 6-16 [facility] Comment on above: Performed By: #### 2 162186, [id number], [id number] ####[facility] [address] [place] [address] AST 13 Int._Unit/L Normal 5-43 [facility] Comment on above: Performed By: #### 2 975653, [id number], [id number] ####[facility] [address] [place] [address] Bili Total 0.4 mg/dL Normal 0.0-1.1 [facility] Comment on above: Performed By: #### 2 815083, [id number], [id number] ####[facility] [address] [facility] [place] [facility] [place] [address] BUN/Creat Ratio 29 No Units High 10-20 [facility] Comment on above: Performed By: #### 2 800166, [id number], [id number] ####[facility] [address] [facility] [place] [facility] [place] [address] Calcium [Mass/Vol] 9.6 mg/dL Normal 8.9-11.1 [facility] Comment on above: Performed By: #### 2 414269, [id number], [id number] ####[facility] [address] [place] [address] Chloride [Moles/Vol] 106 mmol/L Normal 101-111 [facility] Comment on above: Performed By: #### 2 609565, 85008206, [id number] ####[facility] [address] [place] [address] CO2 [Moles/Vol] 27 mmol/L Normal 21-31 [facility] Comment on above: Performed By: #### 2 528545, 89715155, [id number] ####[facility] [address] [place] [address] Creatinine [Mass/Vol] 0.7 mg/dL Normal 0.5-1.3 [facility] Comment on above: Performed By: #### 2 459416, 77450606, [id number] ####[facility] [address] [place] [address] Globulin (S) [Mass/Vol] 2.6 g/dL Normal 1.4-4.0 [facility] Comment on above: Performed By: #### 2 046503, [id number], [id number] ####[facility] [address] [place] [address] Glucose [Mass/Vol] 96 mg/dL Normal 55-199 [facility] Comment on above: Performed By: #### 2 958419, 78898241, [id number] ####[facility] [address] [place] [address] Potassium [Moles/Vol] 4.2 mmol/L Normal 3.5-5.3 [facility] Comment on above: Performed By: #### 2 395689, 84361471, [id number] ####[facility] [address] [place] [address] Protein [Mass/Vol] 6.9 g/dL Normal 6.0-7.8 [facility] Comment on above: Performed By: #### 2 634680, 50205050, 330648970 ####[facility] [address] [place] [address] Sodium [Moles/Vol] 141 mmol/L Normal 135-145 [facility] Comment on above: Performed By: #### 2 541899, 71591086, 097082670 ####[facility] [address] [place] [address] Urea nitrogen [Mass/Vol] 20 mg/dL Normal 5-21 [facility] Comment on above: Performed By: #### 2 143515, 04060099, [id number] ####[facility] [address] [place] [address] Consent for Treatmenton 02 Consent for Treatment [id number] .00TIFF Normal [facility] OxsX0sjp 05-11-2023 HbA1c (Bld) [Mass fraction] 5.8 % Normal <=5.9 [facility] Comment on above: Performed By: #### 2 412182, 08813084, [id number] ####[facility] [address] [place] [address] MA/Cr Ratioon 05-11-2023 Microalb/Cr Ratio .8 mg/gm Cr Normal .0-30.0 [facility] Comment on above: Result Comment: 30-3 00 mg/g Cr indicates an increased risk for diabetic nephropathy. >300 mg/g Cr is consistent with clinical nephropathy. Performed By: #### 1 [id number] #### [facility] [address] [place] [address] U Creatinine 96.3 mg/dL Invalid Interpretation Code [facility] Comment on above: Performed By: #### 1 [id number] #### [facility] [address] [place] [address] U Microalb <2.0 Normal 0.0-19.0 [facility] Comment on above: Performed By: #### 1 3286047 #### [facility] [address] [place] [address] Physician Orderon 05-11-2023 Physician Order [id number]# 1.00TIFF Normal [facility] UA With Cult Reflexon 2023 Bacteria LM Ql (Urine sed) TRACE Normal Trace [facility] Comment on above: Performed By: #### 1 [id number] #### [facility] [address] [place] [address] Bilirubin Ql (U) Negative Normal Negative [facility] Comment on above: Performed By: #### 1 4770056 #### [facility] [address] [place] [address] Clarity (U) CLEAR Normal Clear [facility] Comment on above: Performed By: #### 1 [id number] #### [facility] [address] [place] [address] Color (U) YELLOW Normal Yellow [facility] Comment on above: Performed By: #### 1 [id number] #### [facility] [address] [place] [address] Epithelial cells.squamous LM.HPF (Urine sed) [#/Area] 0-2 Normal 0-2 [facility] Comment on above: Performed By: #### 1 2044192 #### [facility] [address] [place] [address] Glucose Test strip (U) [Mass/Vol] 3+ Abnormal Negative [facility] Comment on above: Performed By: #### 1 [id number] #### [facility] [address] [place] [address] Hemoglobin Ql (U) Negative Normal Negative [facility] Comment on above: Performed By: #### 1 [id number] #### [facility] [address] [place] [address] Ketones (U) [Mass/Vol] Negative Normal Negative Fi [facility] Comment on above: Performed By: #### 1 [id number] #### [facility] [address] [place] [address] [place].plasma/[place] .RBC (Bld) [Mass ratio] 0-3 Normal 0-3 [facility] Comment on above: Performed By: #### 1 [id number] #### [facility] [address] [place] [address] Nitrite Ql (U) Negative Normal Negative [facility] Comment on above: Performed By: #### 1 6236239 #### [facility] [address] [place] [address] pH (U) 5.5 [pH] Invalid Interpretation Code 5.0-9.0 [facility] Comment on above: Performed By: #### 1 1381458 #### [facility] [address] [place] [address] Protein (U) [Mass/Vol] Negative Normal Negative [facility] Comment on above: Performed By: #### 1 6774432 #### [facility] [address] [place] [address] Specific gravity (U) [Rel density] 1.020 Invalid Interpretation Code 1.005-1.030 [facility] Comment on above: Performed By: #### 1 [id number] #### [facility] [address] [place] [address] Type of Urine collection method Clean Catch Normal [facility] Comment on above: Performed By: #### 1 [id number] #### [facility] [address] [place] [address] Urobilinogen Qn (U) 0.2 {Lidya'U}/dL Normal 0.0-1.0 [facility] Comment on above: Performed By: #### 1 8231969 #### [facility] [address] [place] [address] WBC Auto Ql (U) Negative Normal Negative [facility] Comment on above: Performed By: #### 1 2429177 #### [facility] [address] [place] [address] WBC LM.HPF (Urine sed) [#/Area] 0-5 Normal 0-5 [facility] Comment on above: Performed By: #### 1 [id number] #### [facility] [address] [place] [address] eGFRon 05-11-2023 eGFR 111 mL/min/1.73 m2 Normal >=59 [facility] Comment on above: Order Comment: Order added by Discern Expert. Performed By: #### 2 595902, [id number], [id number] ####[facility] [address] [place] [address] ED Note-Physicianon 11-01-19 ED Note-Physician Basic Information Time Seen: Promise Loco PA-C 10/28/2022 16:40 Chief Complaint Patient presents from doctors officer with flank pain and at the [facility] BP was in the 80's. Patient [...] Code status: (more content not included)... Normal [facility] Comment on above: Result Comment: Elec tronically Signed By: Promise Loco PA-C\.br\Date and Time Signed: 10/29/22 01:47 EDT\.br\Electronically Co-Signed By: Gunnar Rangel DO\.br\Date and Time Co-Signed: 10/31/22 07:21 EDT Auto Diffon 10-28-2022 Basophils/100 WBC (Bld) 0.5 % Normal 0.0-2.0 [facility] Comment on above: Order Comment: Order Added by Discern Expert. Performed By: #### 1 [id number] #### [facility] [address] [place] [address] Basophils/Leukocytes Auto (Bld) [Pure # fraction] 0.1 E9/L Normal 0.0-0.2 [facility] Comment on above: Order Comment: Order Added by Discern Expert. Performed By: #### 1 [id number] #### [facility] [address] [place] [address] Eosinophils/100 WBC (Bld) 0.9 % Normal 0.0-8.0 [facility] Comment on above: Order Comment: Order Added by Discern Expert. Performed By: #### 1 [id number] #### [facility] [address] [place] [address] Eosinophils/Leukocytes Auto (Bld) [Pure # fraction] 0.1 E9/L Normal 0.0-0.5 [facility] Comment on above: Order Comment: Order Added by Discern Expert. Performed By: #### 1 5930209 #### [facility] [address] [place] [address] Lymphocytes/100 WBC (Bld) 25.9 % Normal 14.0-50.0 [facility] Comment on above: Order Comment: Order Added by Discern Expert. Performed By: #### 1 [id number] #### [facility] [address] [place] [address] Lymphocytes/Leukocytes Auto (Bld) [Pure # fraction] 2.7 E9/L Normal 1.0-4.0 [facility] Comment on above: Order Comment: Order Added by Discern Expert. Performed By: #### 1 [id number] #### [facility] [address] [place] [address] Monocytes/100 WBC (Bld) 5.3 % Normal 4.0-14.0 [facility] Comment on above: Order Comment: Order Added by Discern Expert. Performed By: #### 1 [id number] #### [facility] [address] [place] [address] Monocytes/Leukocytes Auto (Bld) [Pure # fraction] 0.6 E9/L Normal 0.2-1.0 [facility] Comment on above: Order Comment: Order Added by Discern Expert. Performed By: #### 1 [id number] #### [facility] [address] [place] [address] Neutrophils/100 WBC (Bld) 67.4 % Normal 36.0-75.0 [facility] Comment on above: Order Comment: Order Added by Discern Expert. Performed By: #### 1 [id number] #### [facility] [address] [place] [address] Neutrophils/Leukocytes Auto (Bld) [Pure # fraction] 7.0 E9/L Normal 2.0-7.5 [facility] Comment on above: Order Comment: Order Added by Discern Expert. Performed By: #### 1 [id number] #### [facility] [address] [place] [address] CBC w/ Auto Diffon 3 Erythrocyte distribution width (RBC) [Ratio] 14.6 % High 10.9-14.2 [facility] Comment on above: Performed By: #### 1 [id number] #### [facility] [address] [place] [address] Hematocrit (Bld) [Volume fraction] 48.3 % High 34.0-46.0 [facility] Comment on above: Performed By: #### 1 [id number] #### [facility] [address] [place] [address] Hemoglobin (Bld) [Mass/Vol] 16.0 g/dL Normal 12.0-16.0 [facility] Comment on above: Performed By: #### 1 [id number] #### [facility] [address] [place] [address] MCH (RBC) [Entitic mass] 29.4 pg Normal 27.0-34.0 [facility] Comment on above: Performed By: #### 1 [id number] #### [facility] [address] [place] [address] MCHC (RBC) [Mass/Vol] 33.1 g/dL Normal 31.4-36.0 [facility] Comment on above: Performed By: #### 1 [id number] #### [facility] [address] [place] [address] MCV (RBC) [Entitic vol] 88.9 fL Normal 80.0-100.0 [facility] Comment on above: Performed By: #### 1 [id number] #### [facility] [address] [place] [address] Platelet mean volume (Bld) [Entitic vol] 8.6 fL Normal 6.4-10.8 [facility] Comment on above: Performed By: #### 1 2478870 #### [facility] [address] [place] [address] Platelets (Bld) [#/Vol] 237.0 E9/L Normal 150.0-500.0 [facility] Comment on above: Performed By: #### 1 [id number] #### [facility] [address] [place] [address] RBC (Bld) [#/Vol] 5.4 E12/L Normal 4.3-5.9 [facility] Comment on above: Performed By: #### 1 [id number] #### [facility] [address] [place] [address] WBC corrected for nucl RBC Auto (Bld) [#/Vol] 10.4 E9/L Normal 4.0-11.0 [facility] Comment on above: Performed By: #### 1 [id number] #### [facility] [address] [place] [address] CHEMISTRYOrdered By: SYSTEM SYSTEM on 10-28-2022 Albumin [Mass/Vol] 4.6 g/dL Normal 3.3 - 5.0 gm/dL FT Remisol Albumin/Globulin [Mass ratio] 1.4 {ratio} Normal [...] m2 FT Chem S Globulin (S) [Mass/Vol] 3.4 g/dL Normal 1.4 - 4.0 gm/dL [facility] Glucose [Mass/Vol] 98 mg/dL Normal 55 - 199 mg/dL [facility] Potassium [Moles/Vol] 5.0 mmol/L Normal 3.5 - 5.3 mmol/L [facility] Protein [Mass/Vol] 8.0 g/dL High 6.0 - 7.8 gm/dL [facility]isol Sodium [Moles/Vol] 139 mmol/L Normal 135 - 145 mmol/L [facility] Urea nitrogen [Mass/Vol] 22 mg/dL High 5 - 21 mg/dL [facility]isol Urea nitrogen/Creatinine [Mass ratio] 22 mg/mg High 10 - 20 [facility]isol CMPon 10-28-2022 Albumin [Mass/Vol] 4.6 g/dL Normal 3.3-5.0 [facility] Comment on above: Performed By: #### 1 [id number] #### [facility] [address] [place] [address] Albumin/Globulin (S) [Mass conc ratio] 1.4 Normal 1.1-2.2 [facility] Comment on above: Performed By: #### 1 [id number] #### [facility] [address] [place] [address] ALP [Catalytic activity/Vol] 110 Int._Unit/L High 21- [facility] Comment on above: Performed By: #### 1 [id number] #### [facility] [address] [place] [address] ALT No additional P-5'-P [Catalytic activity/Vol] 16 Int._Unit/L Normal 6-46 [facility] Comment on above: Performed By: #### 1 2403473 #### [facility] [address] [place] [address] Anion gap [Moles/Vol] 13 mmol/L Normal 6-16 [facility] Comment on above: Performed By: #### 1 [id number] #### [facility] [address] [place] [address] AST [Catalytic activity/Vol] 24 Int._Unit/L Normal 5-43 [facility] Comment on above: Performed By: #### 1 [id number] #### [facility] [address] [place] [address] Bilirubin [Mass/Vol] 0.7 mg/dL Normal 0.0-1.1 [facility] Comment on above: Performed By: #### 1 7603278 #### [facility] [address] [place] [address] Calcium [Mass/Vol] 10.2 mg/dL Normal 8.9-11.1 [facility] Comment on above: Performed By: #### 1 [id number] #### [facility] [address] [place] [address] Chloride [Moles/Vol] 106 mmol/L Normal 101-111 [facility] Comment on above: Performed By: #### 1 9329731 #### [facility] [address] [place] [address] CO2 [Moles/Vol] 25 mmol/L Normal 21-31 [facility] Comment on above: Performed By: #### 1 6039418 #### [facility] [address] [place] [address] Creatinine [Mass/Vol] 1.0 mg/dL Normal 0.5-1.3 [facility] Comment on above: Performed By: #### 1 [id number] #### [facility] [address] [place] [address] Globulin (S) [Mass/Vol] 3.4 g/dL Normal 1.4-4.0 [facility] Comment on above: Performed By: #### 1 [id number] #### [facility] [address] [place] [address] Glucose [Mass/Vol] 98 mg/dL Normal 55-199 [facility] Comment on above: Result Comment: If t his glucose result represents a fasting glucose, interpretation should refer to the following reference range: 55-99 mg/dL Performed By: #### 1 [id number] #### [facility] [address] [place] [address] Potassium [Moles/Vol] 5.0 mmol/L Normal 3.5-5.3 [facility] Comment on above: Performed By: #### 1 1570317 #### [facility] [address] [place] [address] Protein [Mass/Vol] 8.0 g/dL High 6.0-7.8 [facility] Comment on above: Performed By: #### 1 5072907 #### [facility] [address] [place] [address] Sodium [Moles/Vol] 139 mmol/L Normal 135-145 [facility] Comment on above: Performed By: #### 1 6587216 #### [facility] [address] [place] [address] Urea nitrogen [Mass/Vol] 22 mg/dL High 5-21 [facility] Comment on above: Performed By: #### 1 [id number] #### [facility] [address] [place] [address] Urea nitrogen/Creatinine [Mass ratio] 22 No Units High 10-20 [facility] Comment on above: Performed By: #### 1 6865337 #### [facility] [address] [place] [address] CT Abdomen/Pelvis w/o Contra ston 10-28-2022 CT [...] Oral contrast amount in ml's: 0 Normal [facility] Consent for Treatmenton 10-14 Consent for Treatment [id number]:127 Normal [facility] Discharge Instructionson Discharge Instructions [id number]:127 Normal [facility] ED Clinical Summaryon 2022 ED Clinical Summary [place] [id number] ED Clinical Summary Person Information Name: TISH VARGAS [facility] Age: 42 Years : 1980 Sex: Female Language: Chinese PCP: YANET CHAIREZ CNP Marital Status: Visit [...] 10/28/2022 18:55:13 10/28/2022 18:55:13 10/28/2022 18:55:13 ADDRESS: [address] [place] [id number] PHYS DOC NOTES: MEDICAL INFORMATION: Prescriptions Given: [...] for Kidney Stones, Care After; Kidney Stones, Btyh-vq-Wtgb; Flank Pain, Adult, Nrkh-at-Arki Follow up: With: Address: When: [place] MIRANDA [facility], [address], [place] [address] Business (1) In 3 d (more content not included)... Normal [facility] ED Patient Education Noteon 10-28-2022 ED Patient [...] including vitamins, herbs, eye drops, creams, and zgbu-ske-cnsgvqn medicines. ? Any problems you or family [...] tells you to take them. ? Taking xijv-ajx-tusktsp medicines, vitamins, herbs, and supplements. Tests You [...] safe. Summary (more content not included)... Normal [facility] ED Patient Summaryon 023 ED Patient Summary [address] [address] Patient Discharge Instructions Person Information Name: TISH VARGAS Age: 42 Years Arrival Date: 10/28/2022 15:04:47 Discharge Diagnosis: 1:Lt flank pain Primary Care Physician: YANET CHAIREZ CNP Provider Information Primary Provider: Gunnar Rangel DO [facility] Medical Assistant:None The exam and treatment you received in the Emergency Department were for an urgent problem and are not intended as complete care. It is important that you follow up with a doctor, nurse practitioner, or physician?s railway yard assistant for ongoing care. If your symptoms [...] Follow-up Instructions: With: Address: When: [place] MIR[facility], [address], [place] [address] Business (1) In 3 days 10/31/2022 With: Address: When: YANET CHAIREZ [address], [place] [phone] Business (1) In 3 days In the event that this physician does not participate in your insurance network, please consult with your insurance company to find a nearby participating provider. Patient Education Materials: Lithotripsy; Laser Therapy for Kidney Stones, Care After; Kidney Stones, Qrjf-re-Qncj; Flank Pain, Adult, Pmst-ef-Uviq A MESSAGE TO ALL PATIENTS REGARDING OPIOIDS PRESCRIPTION OPIOIDS: WHAT YOU NEED TO KNOW Prescription opioids can be used to help relieve jyrgxizu-ys-injass pain and are often prescribed following a [...] learn ab (more content not included)... Normal [facility] HEMATOLOGYOrdered By: SYSTEM SYSTEM on 10-28-2022 Basophils/100 WBC (Bld) 0.5 % Normal 0.0 - 2.0 % [facility] [...] 48.3 % High 34.0 - 46.0 % FT HemeAutoSS Hemoglobin (Bld) [Mass/Vol] 16.0 g/dL Normal [...] 5.4 E12/L Normal 4.3 - 5.9 E12/L [facility] HemeAutoSS WBC corrected for nucl RBC Auto (Bld) [#/Vol] 10.4 E9/L Normal 4.0 - 11.0 E9/L FT HemeAutoSS UA With Cult Reflexon 2022 Bacteria LM Ql (Urine sed) 1+ /HPF Abnormal Trace [facility] Comment on above: Performed By: #### 1 [id number] #### [facility] [address] [place] [address] Bilirubin Ql (U) Negative Normal Negative [facility] Comment on above: Performed By: #### 1 [id number] #### [facility] [address] [place] [address] Clarity (U) CLOUDY Abnormal Clear [facility] Comment on above: Performed By: #### 1 [id number] #### [facility] [address] [place] [address] Color (U) YELLOW Normal Yellow [facility] Comment on above: Performed By: #### 1 [id number] #### [facility] [address] [place] [address] Epithelial cells.squamous LM.HPF (Urine sed) [#/Area] /[HPF] Normal 0-2 [facility] Comment on above: Performed By: #### 1 1336977 #### [facility] [address] [place] [address] Glucose Test strip (U) [Mass/Vol] 3+ Abnormal Negative [facility] Comment on above: Performed By: #### 1 [id number] #### [facility] [address] [place] [address] Hemoglobin Ql (U) 3+ Abnormal Negative [facility] Comment on above: Performed By: #### 1 [id number] #### [facility] [address] [place] [address] Ketones (U) [Mass/Vol] TRACE Abnormal Negative [facility] Comment on above: Performed By: #### 1 9455310 #### [facility] [address] [place] [address] [place].plasma/[place] .RBC (Bld) [Mass ratio] 21-30 Abnormal 0-3 [facility] Comment on above: Performed By: #### 1 [id number] #### [facility] [address] [place] [address] Mucus Ql (Urine sed) 1+ Normal [facility] Comment on above: Performed By: #### 1 [id number] #### [facility] [address] [place] [address] Nitrite Ql (U) Negative Normal Negative [facility] Comment on above: Performed By: #### 1 6061072 #### [facility] [address] [place] [address] pH (U) 5.5 [pH] Invalid Interpretation Code 5.0-9.0 [facility] Comment on above: Performed By: #### 1 [id number] #### [facility] [address] [place] [address] Protein (U) [Mass/Vol] Negative Normal Negative [facility] Comment on above: Performed By: #### 1 7364013 #### [facility] [address] [place] [address] Specific gravity (U) [Rel density] >=1.030 Invalid Interpretation Code 1.005-1.030 [facility] Comment on above: Performed By: #### 1 3129766 #### [facility] [address] [place] [address] Type of Urine collection method Clean Catch Normal [facility] Comment on above: Performed By: #### 1 [id number] #### [facility] [address] [place] [address] Urobilinogen Qn (U) 1.0 {Lidya'U}/dL Normal 0.0-1.0 [facility] Comment on above: Performed By: #### 1 [id number] #### [facility] [address] [place] [address] WBC Auto Ql (U) Negative Normal Negative [facility] Comment on above: Performed By: #### 1 1137434 #### [facility] [address] [place] [address] WBC LM.HPF (Urine sed) [#/Area] 0-5 Normal 0-5 [facility] Comment on above: Performed By: #### 1 [id number] #### [facility] [address] [place] [address] URINALYSISOrdered By: Elliott Still on 10-28-2022 Bacteria [...] Interpretation Code Negative [facility] UA Auto SS [place].plasma/[place] .RBC (Bld) [Mass ratio] 21-30 /HPF Invalid [...] [Mass/Vol] Negative (10/28/22 4:54 PM) Normal Negative [facility] UA Auto SS Specific gravity (U) [Rel density] >=1.030 *NA* (10/28/22 4:54 PM) Invalid Interpretation Code 1.005 - 1.030 FT UA Auto SS UA Spec Desc Clean Catch (10/28/22 4:54 PM) Normal [facility] UA Auto SS Urobilinogen Qn (U) 1.2466130 {Lidya'U}/dL Normal 0.0 - 1.0 EU/dL FT UA Auto SS WBC Auto Ql (U) Negative (10/28/22 4:54 PM) Normal Negative [facility] UA Auto SS WBC LM.HPF (Urine sed) [#/Area] 0-5 /HPF Normal 0-5/HPF FT UA Auto SS eGFRon 10-28-2022 GFR/1.73 sq M.predicted among non-blacks MDRD (S/P/Bld) [Vol rate/Area] 73 mL/min/1.73 m2 Normal >=59 [facility] Comment on above: Order Comment: Order added by Discern Expert. Result Comment: Optometrist President/Practice Owner jose kidney disease could be indicated at eGFR's of less than 60 mL/min/1.73m2. Kidney failure is indicated at less than 15 mL/min/1.73m2. Performed By: #### 1 [id number] #### [facility] [address] [place] [address] ED Note-Physicianon 10-28-19 ED Note-Physician Basic Information Time Seen: Joseph Kent PA-C 10/25/2022 09:33 Chief Complaint Vomitting, pressure tightness [...] and Complexity of Problems Differential Diagnosis: [] [facility] Data External documents reviewed: [] My EKG [...] was ready to go. Discussed follow-up with cattyman. Discussed follow-up with urologist. Patient will be discharged home on pain medicine, nausea med (more content not included)... Normal [facility] Comment on above: Result Comment: Elec tronically Signed By: Joseph Kent PA-C\.br\Date and Time Signed: 10/25/22 11:27 EDT\.br\Electronically Co-Signed By: Gunnar Rangel DO\.br\Date and Time Co-Signed: 10/27/22 07:42 EDT [id number] 10-26-2022 HbA1c (Bld) [Mass fraction] 6.0 % High <=5.9 [facility] Comment on above: Performed By: #### 2 155699, [id number], 72729261, 7809478 #### [facility] [address] [place] [address] Auto Diffon 10-25-2022 Basophils/100 WBC (Bld) 0.7 % Normal 0.0-2.0 [facility] Comment on above: Order Comment: Order Added by Discern Expert. Performed By: #### 2 935912, 18469953, 65324835, 7707581, 6232680, 16602574, 4303435, 4426788, 89857597 #### [facility] [address] [place] [address] Basophils/Leukocytes Auto (Bld) [Pure # fraction] 0.1 E9/L Normal 0.0-0.2 [facility] Comment on above: Order Comment: Order Added by Discern Expert. Performed By: #### 2 064277, 40404223, 25739878, 8370318, 7061213, 10970390, 6389778, 5608672, 54632929 #### [facility] [address] [place] [address] Eosinophils/100 WBC (Bld) 2.9 % Normal 0.0-8.0 [facility] Comment on above: Order Comment: Order Added by Discern Expert. Performed By: #### 2 799272, 43722704, 81208659, 9256130, 4007602, 37895687, 4874229, 5048939, 38466240 #### [facility] [address] [place] [address] Eosinophils/Leukocytes Auto (Bld) [Pure # fraction] 0.2 E9/L Normal 0.0-0.5 [facility] Comment on above: Order Comment: Order Added by Discern Expert. Performed By: #### 2 964592, 81407435, 96283274, 0532098, 7698198, 44306894, 4841847, 2335083, 69711066 #### [facility] [address] [place] [address] Lymphocytes/100 WBC (Bld) 26.6 % Normal 14.0-50.0 [facility] Comment on above: Order Comment: Order Added by Discern Expert. Performed By: #### 2 369662, 96820072, 14653689, 0726480, 8484345, 16320040, 6728094, 7755952, 54624914 #### [facility] [address] [place] [address] Lymphocytes/Leukocytes Auto (Bld) [Pure # fraction] 2.3 E9/L Normal 1.0-4.0 [facility] Comment on above: Order Comment: Order Added by Discern Expert. Performed By: #### 2 387832, 97583532, 46100335, 8409462, 3467081, 66721061, 0344609, 9838759, 96853649 #### [facility] [address] [place] [address] Monocytes/100 WBC (Bld) 4.9 % Normal 4.0-14.0 [facility] Comment on above: Order Comment: Order Added by Discern Expert. Performed By: #### 2 282562, 06335131, 10674137, 4907443, 9820731, 64731523, 8656119, 8039902, 77991767 #### [facility] [address] [place] [address] Monocytes/Leukocytes Auto (Bld) [Pure # fraction] 0.4 E9/L Normal 0.2-1.0 [facility] Comment on above: Order Comment: Order Added by Discern Expert. Performed By: #### 2 496701, 90295792, 13034819, 1302635, 4868586, 31141611, 8403748, 1485117, 40468069 #### [facility] [address] [place] [address] Neutrophils/100 WBC (Bld) 64.9 % Normal 36.0-75.0 [facility] Comment on above: Order Comment: Order Added by Discern Expert. Performed By: #### 2 615642, 20664343, 96549635, 9320158, 9403638, 17105555, 7041138, 5291697, 39939593 #### [facility] [address] [place] [address] Neutrophils/Leukocytes Auto (Bld) [Pure # fraction] 5.5 E9/L Normal 2.0-7.5 [facility] Comment on above: Order Comment: Order Added by Discern Expert. Performed By: #### 2 733621, 02151609, 64579309, 4751236, 2963508, 85373144, 1063800, 1981672, 24782581 #### [facility] [address] [place] [address] B hCG Qualon 10-25-2022 Beta hCG Ql Negative Normal [facility] Comment on above: Performed By: #### 2 432480, 32046626, 36008738, 0880757, 9020777, 82366853, 2814542, 6182185, 12171486 ####[facility] [address] [place] [address] BMPon 10-25-2022 Anion gap [Moles/Vol] 13 mmol/L Normal 6-16 [facility] Comment on above: Performed By: #### 2 648996, 24955019, 24872904, 2607262, 8881820, 23848137, 8799755, 5617684, 74166750 ####[facility] [address] [place] [address] Calcium [Mass/Vol] 9.7 mg/dL Normal 8.9-11.1 [facility] Comment on above: Performed By: #### 2 315287, 88783065, 23254543, 8721130, 8978304, 78936862, 3523967, 6512945, 17976961 ####[facility] [address] [place] [address] Chloride [Moles/Vol] 107 mmol/L Normal 101-111 [facility] Comment on above: Performed By: #### 2 799529, 32697759, 91105612, 5185730, 6649167, 66214250, 9708660, 8432209, 07084188 ####[facility] [address] [place] [address] CO2 [Moles/Vol] 24 mmol/L Normal 21-31 [facility] Comment on above: Performed By: #### 2 918513, 85634004, 07684209, 0394853, 5745544, 79709707, 0378396, 1037136, 29493477 ####[facility] [address] [place] [address] Glucose [Mass/Vol] 98 mg/dL Normal 55-199 [facility] Comment on above: Result Comment: If t his glucose result represents a fasting glucose, interpretation should refer to the following reference range: 55-99 mg/dL Performed By: #### 2 307058, 60265864, 49115468, 9730549, 5200509, 09502977, 0528749, 1325449, 25549111 ####[facility] [address] [place] [address] Potassium [Moles/Vol] 4.1 mmol/L Normal 3.5-5.3 [facility] Comment on above: Performed By: #### 2 329054, 80003612, 35710556, 3989715, 0000979, 34214639, 5258712, 6744468, 53111196 ####[facility] [address] [place] [address] Sodium [Moles/Vol] 140 mmol/L Normal 135-145 [facility] Comment on above: Performed By: #### 2 214949, 17444981, 09622428, 0127788, 8145401, 43861414, 5417245, 5370304, 96680519 ####[facility] [address] [place] [address] Urea nitrogen/Creatinine [Mass ratio] 19 No Units Normal 10-20 [facility] Comment on above: Performed By: #### 2 894496, 78727237, 79937180, 4869541, 8859439, 19403589, 7266699, 3215685, 37224724 ####[facility] [address] [place] [address] BMPOrdered By: SYSTEM SYSTEM on 10-25-2022 Creatinine [Mass/Vol] 1.0 mg/dL Normal 0.5-1.3 [facility] Comment on above: Performed By: #### 2 283172, 05471126, 18448746, 8969952, 9952476, 65921166, 1006860, 4695447, 77979060 ####[facility] [address] [place] [address] Urea nitrogen [Mass/Vol] 19 mg/dL Normal 5-21 [facility] Comment on above: Performed By: #### 2 168153, 83219188, 89373522, 2929423, 9452532, 02450440, 3865594, 1788899, 36115865 ####[facility] [address] [place] [address] CBC w/ Auto Diffon 3 Erythrocyte distribution width (RBC) [Ratio] 14.7 % High 10.9-14.2 [facility] Comment on above: Performed By: #### 2 838175, 84080837, 61117724, 8847757, 4759389, 66904485, 5014242, 2150606, 54252831 #### [facility] [address] [place] [address] Hematocrit (Bld) [Volume fraction] 44.2 % Normal 34.0-46.0 [facility] Comment on above: Performed By: #### 2 912795, 97209813, 06818923, 5277897, 7949591, 90460323, 5261893, 8045705, 75480846 #### [facility] [address] [place] [address] Hemoglobin (Bld) [Mass/Vol] 14.8 g/dL Normal 12.0-16.0 [facility] Comment on above: Performed By: #### 2 455438, 64663498, 76438769, 4219550, 3223901, 50142666, 2494359, 0767111, 39747856 #### [facility] [address] [place] [address] MCH (RBC) [Entitic mass] 29.7 pg Normal 27.0-34.0 [facility] Comment on above: Performed By: #### 2 104415, 52084354, 87062803, 8410163, 9859454, 66740498, 2155313, 9212637, 23008570 #### [facility] [address] [place] [address] MCHC (RBC) [Mass/Vol] 33.4 g/dL Normal 31.4-36.0 [place] [facility] Comment on above: Performed By: #### 2 583429, 30335761, 76053088, 8815366, 0183528, 21160509, 3136767, 3109012, 10148705 #### [facility] [address] [place] [address] MCV (RBC) [Entitic vol] 88.9 fL Normal 80.0-100.0 [facility] Comment on above: Performed By: #### 2 018422, 13598435, 79289773, 3672146, 2204650, 55728509, 6273916, 2064391, 00097311 #### [facility] [address] [place] [address] Platelet mean volume (Bld) [Entitic vol] 8.7 fL Normal 6.4-10.8 [facility] Comment on above: Performed By: #### 2 096392, 12097845, 82871230, 7293612, 7428354, 84501434, 8558301, 0178440, 33019310 #### [facility] [address] [place] [address] Platelets (Bld) [#/Vol] 207.0 E9/L Normal 150.0-500.0 [facility] Comment on above: Performed By: #### 2 028034, 56854675, 13449728, 4199126, 0601082, 29638136, 9700014, 5902984, 16570444 #### [facility] [address] [place] [address] RBC (Bld) [#/Vol] 5.0 E12/L Normal 4.3-5.9 [facility] Comment on above: Performed By: #### 2 448704, 89693916, 37704872, 7475131, 8880754, 46181553, 2414091, 7877872, 57810287 #### [facility] [address] [place] [address] WBC corrected for nucl RBC Auto (Bld) [#/Vol] 8.5 E9/L Normal 4.0-11.0 [facility] Comment on above: Performed By: #### 2 035680, 84628905, 54191511, 6494159, 1897094, 29308988, 1962615, 2380208, 18541674 #### [facility] [address] [place] [address] CHEMISTRYOrdered By: SYSTEM SYSTEM on 10-25-2022 Albumin [Mass/Vol] 4.1 g/dL Normal 3.3 - 5.0 gm/dL [facility] Remisol Albumin [Mass/Vol] 4.3 g/dL Normal 3.3 - 5.0 gm/dL [facility] Remisol Albumin/Globulin [Mass ratio] 1.3 {ratio} Normal 1.1 - 2.2 [facility] Remisol Albumin/Globulin [Mass ratio] 1.3 {ratio} Normal 1.1 - 2.2 [facility] Remisol ALP [Catalytic activity/Vol] 112 [iU]/d High 21 - 98 Int._Unit/L [facility] Remisol ALP [Catalytic activity/Vol] 111 [iU]/d High 21 - 98 Int._Unit/L [facility] Remisol ALT No additional P-5'-P [Catalytic activity/Vol] 16 [iU]/d Normal 6 - 46 Int._Unit/L [facility] Remisol ALT No additional P-5'-P [Catalytic activity/Vol] 16 [iU]/d Normal 6 - 46 Int._Unit/L [facility] Anion gap [Moles/Vol] 13 mmol/L Normal 6 - 16 mEq/L [facility]isol Anion gap [Moles/Vol] 11 mmol/L Normal 6 - 16 mEq/L [facility] Remisol AST [Catalytic activity/Vol] 27 [iU]/d Normal 5 - 43 Int._Unit/L [facility] Remisol AST [Catalytic activity/Vol] 23 [iU]/d Normal 5 - 43 Int._Unit/L [facility]isol Bilirubin [Mass/Vol] 0.5 mg/dL Normal 0.0 - 1 .1 mg/dL [facility] Bilirubin [Mass/Vol] 0.4 mg/dL Normal 0.0 - 1 .1 mg/dL [facility] Bilirubin.direct [Mass/Vol] 0.1 mg/dL Normal 0.1 - 0.4 mg/dL [facility]isol Bilirubin.indirect [Mass or moles/Vol] 0.4 mg/dL Normal 0.1 - 0.9 mg/dL [facility] Calcium [Mass/Vol] 9.7 mg/dL Normal 8.9 - 11. 1 mg/dL [facility] Calcium [Mass/Vol] 9.4 mg/dL Normal 8.9 - 11. 1 mg/dL [facility] Chloride [Moles/Vol] 107 mmol/L Normal 101 - 1 11 mmol/L [facility] Chloride [Moles/Vol] 106 mmol/L Normal 101 - 1 11 mmol/L [facility] Cholesterol [Mass/Vol] 122 mg/dL Normal 120 - 200 mg/dL [facility] Cholesterol in HDL [Mass/Vol] 35 mg/dL Invalid Interpretation Code [facility] Cholesterol in LDL [Mass/Vol] 58 mg/dL Normal <=129mg/dL [facility] Cholesterol in VLDL [Mass/Vol] 29 mg/dL Normal 7 - 40 mg/dL [facility] CO2 [Moles/Vol] 24 mmol/L Normal 21 - 31 mmol/L [facility] CO2 [Moles/Vol] 27 mmol/L [...] Normal 55 - 199 mg/dL [facility] Glucose [Mass/Vol] 99 mg/dL Normal 55 - 199 mg/dL [facility] Lipase [Catalytic activity/Vol] 58 U/L Normal 13 - 58 unit/L [facility] Remisol Potassium [Moles/Vol] 4.1 mmol/L Normal 3.5 - 5.3 mmol/L [facility] Remisol Potassium [Moles/Vol] 4.8 mmol/L Normal 3.5 - 5.3 mmol/L [facility] Remisol Protein [Mass/Vol] 7.3 g/dL Normal 6.0 - 7.8 gm/dL [facility] Remisol Protein [Mass/Vol] 7.5 g/dL Normal 6.0 - 7.8 gm/dL [facility] Sodium [Moles/Vol] 140 mmol/L Normal 135 - 145 mmol/L [facility] Remisol Sodium [Moles/Vol] 139 mmol/L Normal 135 - 145 mmol/L [facility] Triglyceride [Mass/Vol] 144 mg/dL Normal <=149mg/dL [facility] Remisol Troponin I.cardiac [Mass/Vol] pg/mL Low 10.10 - 27.10 pg/mL [facility] Urea nitrogen [Mass/Vol] 19 mg/dL Normal 5 - 21 mg/dL [facility] Urea nitrogen/Creatinine [Mass ratio] 19 mg/mg Normal 10 - 20 [facility] Urea nitrogen/Creatinine [Mass ratio] 19 mg/mg Normal 10 - 20 [facility] CMPon 10-25-2022 Albumin [Mass/Vol] 4.3 g/dL Normal 3.3-5.0 [facility] Comment on above: Performed By: #### 2 693118, 275231631, 44644316, 7482762 #### [facility] [address] [place] [address] Albumin/Globulin (S) [Mass conc ratio] 1.3 Normal 1.1-2.2 [facility] Comment on above: Performed By: #### 2 750928, 195582838, 22820609, 6659927 #### [facility] [address] [place] [address] ALP [Catalytic activity/Vol] 111 Int._Unit/L High 21- [facility] Comment on above: Performed By: #### 2 005566, 560980356, 12181793, 4754112 #### [facility] [address] [place] [address] ALT No additional P-5'-P [Catalytic activity/Vol] 16 Int._Unit/L Normal 6-46 [facility] Comment on above: Performed By: #### 2 188829, 802382395, 87076566, 4153678 #### [facility] [address] [place] [address] Anion gap [Moles/Vol] 11 mmol/L Normal 6-16 [facility] Comment on above: Performed By: #### 2 938759, 632664793, 08474227, 8209590 #### [facility] [address] [place] [address] AST [Catalytic activity/Vol] 23 Int._Unit/L Normal 5-43 [facility] Comment on above: Performed By: #### 2 716387, 033076342, 24861293, 1504310 #### [facility] [address] [place] [address] Bilirubin [Mass/Vol] 0.4 mg/dL Normal 0.0-1.1 [facility] Comment on above: Performed By: #### 2 394062, 836847929, 90613430, 4303169 #### [facility] [address] [place] [address] Calcium [Mass/Vol] 9.4 mg/dL Normal 8.9-11.1 [facility] Comment on above: Performed By: #### 2 420791, 112213418, 40763630, 9358181 #### [facility] [address] [place] [address] Chloride [Moles/Vol] 106 mmol/L Normal 101-111 [facility] Comment on above: Performed By: #### 2 758053, 282293359, 43207976, 5674014 #### [facility] [address] [place] [address] CO2 [Moles/Vol] 27 mmol/L Normal 21-31 [facility] Comment on above: Performed By: #### 2 639744, 431319238, 73635243, 3924784 #### [facility] [address] [place] [address] Creatinine [Mass/Vol] 1.0 mg/dL Normal 0.5-1.3 [facility] Comment on above: Performed By: #### 2 747474, 679332398, 20822144, 9938315 #### [facility] [address] [place] [address] Globulin (S) [Mass/Vol] 3.2 g/dL Normal 1.4-4.0 [facility] Comment on above: Performed By: #### 2 197715, 276234114, 79607608, 7111342 #### [facility] [address] [place] [address] Glucose [Mass/Vol] 99 mg/dL Normal 55-199 [facility] Comment on above: Result Comment: If t his glucose result represents a fasting glucose, interpretation should refer to the following reference range: 55-99 mg/dL Performed By: #### 2 636921, 963754188, 30050028, 5904899 #### [facility] [address] [place] [address] Potassium [Moles/Vol] 4.8 mmol/L Normal 3.5-5.3 [facility] Comment on above: Performed By: #### 2 238870, 490889731, 87920686, 0567446 #### [facility] [address] [place] [address] Protein [Mass/Vol] 7.5 g/dL Normal 6.0-7.8 [facility] Comment on above: Performed By: #### 2 740972, 218478145, 31950333, 8809239 #### [facility] [address] [place] [address] Sodium [Moles/Vol] 139 mmol/L Normal 135-145 [facility] Comment on above: Performed By: #### 2 470334, 374452247, 24171353, 9244890 #### [facility] [address] [place] [address] Urea nitrogen [Mass/Vol] 19 mg/dL Normal 5-21 [facility] Comment on above: Performed By: #### 2 916509, 152851005, 31883514, 9055135 #### [facility] [address] [place] [address] Urea nitrogen/Creatinine [Mass ratio] 19 No Units Normal 10-20 [facility] Comment on above: Performed By: #### 2 435957, 648814327, 25360550, 5290947 #### [facility] [address] [place] [address] COAGULATIONOrdered By: Flor Walsh on 10-25-2022 aPTT Coag (PPP) [Time] 29.8 s Normal 25.1 - 36.5 second(s) [facility] Auto Coag INR Coag (PPP) [Relative time] 0.9 {INR} Invalid Interpretation Code [facility] Auto Coag PT Coag (PPP) [Time] 9.5 s Normal 9.4 - 1 2.5 second(s) [facility] Auto Coag CT Abdomen/Pelvis w/o Contra ston [...] No Oral contrast amount in ml's: 0 [facility] Consent for Treatmenton 10-14 Consent for Treatment [id number]#1 .00CD:127 Normal [facility] Consent for Treatment [id number]#1 .00CD:127 Normal [facility] Discharge Instructionson Discharge Instructions [id number]# 1.00CD:127 Normal [facility] ED Clinical Summaryon 2022 ED Clinical Summary [address] [address] ED Clinical Summary Person Information Name: TISH VARGAS [place] Age: 42 Years : 1980 Sex: Female Language: Chinese PCP: YANET CHAIREZ CNP Marital Status: Visit [...] 10/25/2022 12:11:07 10/25/2022 12:11:07 ADDRESS: [address] [place] [id number] PHYS DOC NOTES: MEDICAL INFORMATION: Prescriptions Given: New Medications [id number], [address] [place] [id number], [phone] tamsulosin (Flomax 0.4 mg Cap) 1 Capsules By Mouth every day. Refills: 0. Medications to Continue Taking That Have Changed [id number], [address] [place], [place] [id number], [phone] START: acetaminophen-oxycodo ne (acetaminophen-oxycod one 325 mg-5 [...] Cap-ER) 1 (more content not included)... Normal [facility] ED Patient Education Noteon 10-25-2022 ED Patient [...] these instructions at home: Medicines ? Take jpzt-nms-cglncks and prescription medicines only as told by [...] Eating a heart-healthy diet. A diet and student finance specialist (dietitian) can help you to learn healthy [...] provider. Document Revised: 05/16/2021 Document Reviewed: 05/16/2021 Elsevier Patient Education ? 2022 [employer]. Urology Kidney Stones Kidney stones are solid, [...] A conditi (more content not included)... Normal [facility] ED Patient Summaryon 023 ED Patient Summary [address] [address] Patient Discharge Instructions Person Information Name: TISH VARGAS Age: 42 Years Arrival Date: 10/25/2022 09:29:31 Discharge Diagnosis: Kidney stone on left side; Nonspecific chest pain Primary Care Physician: YANET CHAIREZ CNP Provider Information Primary Provider: Gunnar Rangel DO [facility] Medical Assistant:None The exam and treatment you received in the Emergency Department were for an urgent problem and are not intended as complete care. It is important that you follow up with a doctor, nurse practitioner, or physician?s railway yard assistant for ongoing care. If your symptoms [...] Follow-up Instructions: With: Address: When: Koko Vasquez [address] [place], [place] [address] [place] [address] Business (1) In 3 days 10/28/2022 With: Address: When: [place] MIRANDA [facility], [address], [place] [address] Business (1) In 3 days 10/28/2022 With: Address: When: YANET CHAIREZ [address] [place] [phone] Business (1) In 3 days 10/28/2022 Comments: [...] Materials: Kidney Stones; Nonspecific Chest Pain, Adult, Cmvb-rp-Klqg A MESSAGE TO ALL PATIENTS REGARDING OPIOIDS PRESCRIPTION OPIOIDS: WHAT YOU NEED TO KNOW Prescription opioids can be used to help relieve tqfybtda-dm-lmaupj pain and are often prescribed following a [...] friends, and (more content not included)... Normal [facility] HEMATOLOGYOrdered By: SYSTEM SYSTEM on 10-25-2022 Basophils/100 WBC (Bld) 0.7 % Normal 0.0 - 2.0 % [facility] HemeAutoSS Basophils/Leukocytes Auto (Bld) [Pure # fraction] [...] - 7.5 E9/L [facility]eAutoSS HEMATOLOGYOrdered By: Sangeeta Arroyo on 10-25-2022 Erythrocyte distribution width (RBC) [Ratio] 14.7 % High 10.9 - 14.2 % [facility]eAutoSS Hematocrit (Bld) [Volume fraction] 44.2 % Normal 34.0 - 46.0 % [facility] HemeAutoSS Hemoglobin (Bld) [Mass/Vol] 14.8 g/dL Normal 12.0 - 16.0 gm/dL [facility]eAutoSS MCH (RBC) [Entitic mass] 29.7 pg Normal 27.0 - 34.0 pg [facility] HemeAutoSS MCHC (RBC) [Mass/Vol] 33.4 g/dL Normal 31.4 - 36.0 gm/dL [facility] HemeAutoSS MCV (RBC) [Entitic vol] 88.9 fL Normal 80.0 - 100.0 fL [facility]eAutoSS Platelet mean volume (Bld) [Entitic vol] 8.7 fL Normal 6.4 - 10.8 fL [facility] HemeAutoSS Platelets (Bld) [#/Vol] 207.0 E9/L Normal 150.0 - 500.0 E9/L [facility] HemeAutoSS RBC (Bld) [#/Vol] 5.0 E12/L Normal 4.3 - 5.9 E12/L [facility]eAutoSS WBC corrected for nucl RBC Auto (Bld) [#/Vol] 8.5 E9/L Normal 4.0 - 11.0 E9/L [facility]eAutoSS Hep Func Panelon 10-25-2022 Albumin [Mass/Vol] 4.1 g/dL Normal 3.3-5.0 [facility] Comment on above: Performed By: #### 2 110246, 37351368, 16622583, 7099555, 6016807, 30444489, 7943584, 9996449, 76514635 ####[address] [place] [address] Albumin/Globulin (S) [Mass conc ratio] 1.3 Normal 1.1-2.2 [facility] Comment on above: Performed By: #### 2 215616, 52243864, 79340668, 8334151, 6596729, 60567097, 5304504, 0665859, 61502048 ####[address] [place] [address] ALP [Catalytic activity/Vol] 112 Int._Unit/L High 21-98 [facility] Comment on above: Performed By: #### 2 243379, 54297519, 84526027, 3825135, 2363295, 61838379, 5132695, 7829213, 77855939 ####[address] [address] ALT No additional P-5'-P [Catalytic activity/Vol] 16 Int._Unit/L Normal 6-46 [facility] Comment on above: Performed By: #### 2 443721, 11529995, 67169592, 1524875, 0424293, 60816508, 1136213, 5771010, 86961820 ####[address] [place] [address] AST [Catalytic activity/Vol] 27 Int._Unit/L Normal 5-43 [facility] Comment on above: Performed By: #### 2 754269, 05411123, 99296050, 5670061, 2583260, 46533737, 2017060, 3472544, 28359460 ####[address] [place] [address] Bilirubin [Mass/Vol] 0.5 mg/dL Normal 0.0-1.1 [facility] Comment on above: Performed By: #### 2 113404, 50326760, 38881992, 2284829, 6606625, 35005405, 1040425, 8145988, 17037107 ####[facility] [address] [place] [address] Bilirubin.direct [Mass/Vol] 0.1 mg/dL Normal 0.1-0.4 [facility] Comment on above: Performed By: #### 2 891735, 11899641, 30467096, 1978971, 6573425, 97224688, 0120923, 6669455, 04192337 ####[facility] [address] [place] [address] Bilirubin.indirect [Mass or moles/Vol] 0.4 mg/dL Normal 0.1-0.9 [facility] Comment on above: Performed By: #### 2 400482, 61677100, 59513620, 5447816, 0696187, 84293373, 1103618, 5075288, 59450284 ####[facility] [address] [place] [address] Protein [Mass/Vol] 7.3 g/dL Normal 6.0-7.8 [facility] Comment on above: Performed By: #### 2 281358, 56196061, 87082856, 8951814, 3925764, 83370086, 4903356, 9193201, 44293731 ####[facility] [address] [place] [address] Hep Func PanelOrdered By: Frazr SYSTEM on 10-25-2022 Globulin (S) [Mass/Vol] 3.2 g/dL Normal 1.4-4.0 [facility] Comment on above: Performed By: #### 2 885485, 57274550, 48212025, 1862742, 7656099, 87932497, 7183572, 3118901, 70650565 ####[address] [place] [address] Lipase Levelon 10-25-2022 Lipase [Catalytic activity/Vol] 58 U/L Normal 13-58 [facility] Comment on above: Performed By: #### 2 414693, 60238871, 51210347, 8300391, 8700299, 38150209, 2339803, 1302627, 72323537 ####[facility] [address] [place] [address] Lipid Panelon 10-25-2022 Cholesterol [Mass/Vol] 122 mg/dL Normal 120-200 [facility] Comment on above: Performed By: #### 2 449490, 411983233, 88032280, 0485933 #### [facility] [address] [place] [address] Cholesterol in HDL [Mass/Vol] 35 mg/dL Invalid Interpretation Code [facility] Comment on above: Result Comment: HDL > or equal to 60 mg/dL: Low cardiovascular risk HDL < 40 mg/dL : High cardiovascular risk Performed By: #### 2 933345, 428111891, 43228239, 7728766 #### [facility] [address] [place] [address] Cholesterol in LDL [Mass/Vol] 58 mg/dL Normal <=129 [facility] Comment on above: Performed By: #### 2 810885, 334461421, 79890577, 6363509 #### [facility] [address] [place] [address] Cholesterol in VLDL [Mass/Vol] 29 mg/dL Normal 7-40 [facility] Comment on above: Performed By: #### 2 354821, 420715014, 80233108, 8746234 #### [facility] [address] [place] [address] Triglyceride [Mass/Vol] 144 mg/dL Normal <=149 [facility] Comment on above: Performed By: #### 2 171567, 245510903, 08684749, 0448694 #### [facility] [address] [place] [address] PT & PTTon 10-25-2022 aPTT Coag (PPP) [Time] 29.8 second(s) Normal 25.1-36.5 [facility] Comment on above: Result Comment: Para [...] the same coagulation reagent and instrumentation as [facility]. Currently there are no coagulation studies available worldwide for children to 14 days, and no normal ranges. Heparin therapeutic range (represented by Anti-Factor Xa activity of 0.2 - 0.4 U/mL) corresponds to PTT of 56.6 - 109.0 sec. Performed By: #### 2 406915, 53823539, 31338662, 5519899, 3164782, 61935668, 0989081, 0478474, 08779743 ####[facility] [address] [facility] [place] [facility] [place] [address] INR Coag (PPP) [Relative time] 0.9 {INR} Invalid Interpretation Code [facility] Comment on above: Result Comment: INR results are specifically intended to assess patients stabilized on long-term Anticoagulation therapy suggested INR?s ?Less Intensive Anticoagulation? 2.0 ? 3.0 Conventional Range 3.0 ? 4.5 Performed By: #### 2 725760, 85932417, 73753345, 1021441, 0386187, 24096645, 6704794, 0916855, 78142957 ####[facility] [address] [place] [address] PT Coag (PPP) [Time] 9.5 second(s) Normal 9.4-12.5 [facility] Comment on above: Result Comment: 15 d [...] the same coagulation reagent and instrumentation as [facility]. Currently there are no coagulation studies available worldwide for children to 14 days, and no normal ranges. Performed By: #### 2 997640, 01144802, 44145239, 1215182, 4319963, 58988407, 9713460, 2101023, 91341634 ####[facility] [address] [place] [address] Physician Orderon 10-25-2022 Physician Order [id number]#1 .00CD:127 Normal [facility] Physician Order [id number]#1 .00CD:127 Normal [facility] SEROLOGYOrdered By: Marga Walsh on 10-25-2022 Beta hCG Ql Negative (10/25/22 10:02 AM) Normal [facility] Man Sero Troponin 0 Hr.on 10-25-2022 Troponin I.cardiac [Mass/Vol] ng/mL Low 10.10-27.10 [facility] Comment on above: Result Comment: The 95% CI (Confidence Interval) PPV (Positive Predictive Value) for myocardial infarction in females is 38 pg/mL, in males 51 pg/mL. The results should be used in conjunction with clinical conditions of myocardial infarction. (Access High Sensitivity Troponin I Instructions For Use, Meryl Antionette, October 2017) Performed By: #### 2 654196, 98126488, 14738099, 7562958, 9942058, 19292806, 3253404, 3847767, 15409918 ####[facility] [address] [place] [address] UA With Cult Reflexon 2022 Bacteria LM Ql (Urine sed) 1+ /HPF Abnormal Trace [facility] Comment on above: Performed By: #### 1 3455613 #### [facility] [address] [place] [address] Bilirubin Ql (U) Negative Normal Negative [facility] Comment on above: Performed By: #### 1 2531477 #### [facility] [address] [place] [address] Clarity (U) CLEAR Normal Clear [facility] Comment on above: Performed By: #### 1 1976917 #### [facility] [address] [place] [address] Color (U) YELLOW Normal Yellow [facility] Comment on above: Performed By: #### 1 3730191 #### [facility] [address] [place] [address] Epithelial cells.squamous LM.HPF (Urine sed) [#/Area] 5-8 Normal 0-2 [facility] Comment on above: Performed By: #### 1 6931759 #### [facility] [address] [place] [address] Glucose Test strip (U) [Mass/Vol] 3+ Abnormal Negative [facility] Comment on above: Performed By: #### 1 1738800 #### [facility] [address] [place] [address] Hemoglobin Ql (U) 3+ Abnormal Negative [facility] Comment on above: Performed By: #### 1 8834170 #### [facility] [address] [place] [address] Ketones (U) [Mass/Vol] Negative Normal Negative [facility] Comment on above: Performed By: #### 1 4350450 #### [facility] [address] [place] [address] [place].plasma/[place] .RBC (Bld) [Mass ratio] 4-20 Normal 0-3 [facility] Comment on above: Performed By: #### 1 3469615 #### [facility] [address] [place] [address] Mucus Ql (Urine sed) 1+ Normal Fish [facility] Comment on above: Performed By: #### 1 3452124 #### [facility] [address] [place] [address] Nitrite Ql (U) Negative Normal Negative [facility] Comment on above: Performed By: #### 1 8651037 #### [facility] [address] [place] [address] pH (U) 5.5 [pH] Invalid Interpretation Code 5.0-9.0 [facility] Comment on above: Performed By: #### 1 5284453 #### [facility] [address] [place] [address] Protein (U) [Mass/Vol] TRACE Abnormal Negative [facility] Comment on above: Performed By: #### 1 9869372 #### [facility] [address] [place] [address] Specific gravity (U) [Rel density] >=1.030 Invalid Interpretation Code 1.005-1.030 [facility] Comment on above: Performed By: #### 1 4265986 #### [facility] [address] [place] [address] Type of Urine collection method Clean Catch Normal [facility] Comment on above: Performed By: #### 1 8053308 #### [facility] [address] [place] [address] Urobilinogen Qn (U) 0.2 {Lidya'U}/dL Normal 0.0-1.0 [facility] Comment on above: Performed By: #### 1 3457433 #### [facility] [address] [place] [address] WBC Auto Ql (U) Negative Normal Negative [facility] Comment on above: Performed By: #### 1 7614525 #### [facility] [address] [place] [address] WBC LM.HPF (Urine sed) [#/Area] 0-5 Normal 0-5 [facility] Comment on above: Performed By: #### 1 9217968 #### [facility] [address] [place] [address] URINALYSISOrdered By: Norma Walsh on 10-25-2022 Bacteria [...] AM) Normal Negative [facility] UA Auto SS [place].plasma/[place] .RBC (Bld) [Mass ratio] 4-20 /HPF Normal [...] [facility] UA Auto SS Urobilinogen Qn (U) 0.1881229 {Lidya'U}/dL Normal 0.0 - 1.0 EU/dL [facility] UA Auto SS WBC Auto Ql (U) Negative (10/25/22 10:16 AM) Normal Negative [facility] UA Auto SS WBC LM.HPF (Urine sed) [#/Area] 0-5 /HPF Normal 0-5/HPF [facility] UA Auto SS XR Chest Single Viewon [...] FLORENTINO Technologist: DONNA, Technical Comments Radiation Dose: Ka,r in mGy = na DAP = na Normal [facility] eGFROrdered By: SYSTEM SYSTE M on 10-25-2022 GFR/1.73 sq M.predicted among non-blacks MDRD (S/P/Bld) [Vol rate/Area] 73 mL/min/1.73 m2 Normal >=59 [facility] Chem S Comment on above: Order Comment: Order added by Discern Expert. Result Comment: Optometrist President/Practice Owner jose kidney disease could be indicated at eGFR's of less than 60 mL/min/1.73m2. Kidney failure is indicated at less than 15 mL/min/1.73m2. Performed By: #### 2 446382, 46244659, 57214305, 6132049, 2487361, 23183016, 5768414, 9284101, 61219618 ####[facility] [address] [place] [address] eGFRon 10-25-2022 GFR/1.73 sq M.predicted among non-blacks MDRD (S/P/Bld) [Vol rate/Area] 73 mL/min/1.73 m2 Normal >=59 [facility] Comment on above: Order Comment: Order added by Discern Expert. Result Comment: Optometrist President/Practice Owner jose kidney disease could be indicated at eGFR's of less than 60 mL/min/1.73m2. Kidney failure is indicated at less than 15 mL/min/1.73m2. Performed By: #### 2 368905, 423229963, 29052983, 5182807 #### [facility] [address] [place] [address] Consent for Treatmenton 09-14 Consent for Treatment [id number]#1 .00CD:127 Normal [facility] Physician Referralon 023 Physician Referral [id number]#1 .00CD:127 Normal [facility] Discharge Instructionson Discharge Instructions [id number]#1.0 0CD:127 Normal [facility] Consent for Treatmenton 08-14 Consent for Treatment [id number] .00CD:127 Normal [facility] ED Clinical Summaryon 2022 ED Clinical Summary [address] [address] ED Clinical Summary Person Information Name: TISH VARGAS [place] Age: 41 Years : 1980 Sex: Female Language: Chinese PCP: YANET CHAIREZ CNP Marital Status: Phone: [phone] Visit Id: Visit Reason: Vaginal pain; Abscess [...] 08/24/2022 21:32:25 08/24/2022 21:32:25 ADDRESS: [address] [place] [id number] PHYS DOC NOTES: MEDICAL INFORMATION: Prescriptions Given: New Medications [id number], [address] [place] [id number], [phone] clindamycin (clindamycin 150 mg Cap) 3 Capsules [...] Abscess Follow up: With: Address: When: YANET VERNON [address] [place], [place] [phone] Business (1) In 3 days DIAGNOSIS: Abscess Normal [facility] ED Note-Physicianon 08-25-19 ED Note-Physician Basic Information Time Seen: Kevin Nur DO 08/24/2022 19:42 Chief Complaint abscess to groin area today. denies drainage to area. denies body aches or fever. History of Present Illness HPI: Patient is a 41-year-old female past medical history of anxiety, depression, diabetes, AR, hypertension, PCOS who presents the ED for [...] or chills. She has not taken anything joqu-xxu-akvtedt yet for this today. ROS: Pertinent review [...] and Complexity of Problems Differential Diagnosis: [] [facility] Data External documents reviewed: N/A My EKG [...] day(s), # 63 cap(s), Refills(s) 0, Pharmacy[facility], 162, cm, 08/24/22 19:24:00 EDT, Height/Length [...] YANET CHAIREZ In 3 days [address] [place] [address] [phone] Business (1) Additional Instructions: Patient Education Skin Abscess Problem List/Past Medical History Ongoing Abnormal uterine bleeding Anxiety Coronary artery disease Depression Diabetes Diabetic neuropathy Fatty liver GERD (gastroesophageal reflux disease) Hemorrhoids History of AR (myocardial infarction) HTN (hypertension) Hyperlipidemia Hypertension Insomnia Left ovarian cyst Narcotic abuse TRUONG on CPAP PCOS (polycystic ovarian syndrome) Presence of stent in coronary artery Smoker Historical CAD - Coronary artery disease DM type 2, goal HbA1c < 7% Myocardial infarction Nicotine abuse PCOS - Polycystic ovarian syndrome renal calculi Smoker 15-SEP-2013 12:37:00<$> Uterine fibroid Procedure/Surgical History PCI (08/20/2018), Abdominal hysterectomy (2018), Appendectomy (2018), Bilateral salpingo-oophorectomy , x2, Card (more content not included)... Normal [facility] Comment on above: Result Comment: Elec [...] these instructions at home: Medicines ? Take qbdd-xss-mxukogb and prescription medicines only as told by [...] and water are not available, use hand coroner's juror. ? Check your abscess every day for [...] care pro (more content not included)... Normal [facility] ED Patient Summaryon 023 ED Patient Summary [address] [address] Patient Discharge Instructions Person Information Name: TISH VARGAS Age: 41 Years Arrival Date: 08/24/2022 19:18:12 Discharge Diagnosis: Abscess Primary Care Physician: YANET CHAIREZ CNP Provider Information Primary Provider: Kevin Nur DO [facility] Medical Assistant:Manuel Chaudhary PA-C The exam and treatment you received in the Emergency Department were for an urgent problem and are not intended as complete care. It is important that you follow up with a doctor, nurse practitioner, or physician?s railway yard assistant for ongoing care. If your symptoms [...] With: Address: When: YANET CHAIREZ [address] [place], [place] [phone] Business (1) In 3 days In the event that this physician does not participate in your insurance network, please consult with your insurance company to find a nearby participating provider. Patient Education Materials: Skin Abscess A MESSAGE TO ALL PATIENTS REGARDING OPIOIDS PRESCRIPTION OPIOIDS: WHAT YOU NEED TO KNOW Prescription opioids can be used to help relieve qnzdwuyx-fo-qfazfj pain and are often prescribed following a [...] be struggling with addiction, tell your health residential care officer and ask for guidance or call [facility]S National Helpline at [phone]. m Source: [place] Department of (more content not included)... Normal [facility] CHEMISTRYOrdered By: SYSTEM SYSTEM on 06-30-2022 [...] rate/Area] mL/min/1.73 m2 Normal >=59mL/min/1 .73 m2 [facility] Chem S GFR/1.73 sq M.predicted among non-blacks MDRD (S/P/Bld) [Vol rate/Area] mL/min/1.73 m2 Normal >=59mL/min/1 .73 m2 [facility] Chem S Globulin (S) [Mass/Vol] 3.6 g/dL Normal 1.4 - 4.0 gm/dL [facility] Glucose [Mass/Vol] 132 mg/dL Normal 55 - 199 mg/dL [facility] Potassium [Moles/Vol] 4.6 mmol/L Normal 3.5 - 5.3 mmol/L [facility] Protein [Mass/Vol] 7.9 g/dL High 6.0 - 7.8 gm/dL [facility] Sodium [Moles/Vol] 138 mmol/L Normal 135 - 145 mmol/L [facility] Triglyceride [Mass/Vol] 198 mg/dL High <=149mg/dL [facility] Urea nitrogen [Mass/Vol] 16 mg/dL Normal 5 - 21 mg/dL [facility] Urea nitrogen/Creatinine [Mass ratio] 18 mg/mg Normal 10 - 20 [facility] Remisol CHEMISTRYOrdered By: Ozzy hong on 06-30-2022 Albumin DL <= 20 mg/L (U) [Mass/Vol] 8.0 microgram/mL Normal 0.0 - 19.0 mcg/mL [facility] Remisol CHEMISTRYOrdered By: Maira Baig se on 06-30-2022 HbA1c (Bld) [Mass fraction] 7.2 % High <=5.9% [facility] ChemAutoSS HEMATOLOGYOrdered By: SYSTEM SYSTEM on 06-30-2022 Basophils/100 WBC (Bld) 0.7 % Normal 0.0 - 2.0 % [facility] HemeAutoSS Basophils/Leukocytes Auto (Bld) [Pure # fraction] 0.1 E9/L Normal 0.0 - 0.2 E9/L [facility] HemeAutoSS Eosinophils/100 WBC (Bld) 2.6 % Normal 0.0 - 8.0 % [facility] HemeAutoSS Eosinophils/Leukocytes Auto (Bld) [Pure # fraction] [...] 9.0 E9/L Normal 4.0 - 11.0 E9/L [facility] HemeAutoSS URINALYSISOrdered By: Maira carmona on 06-30-2022 [...] PM) Normal Negative [facility] UA Auto SS [place].plasma/[place] .RBC (Bld) [Mass ratio] 0-3 /HPF Normal [...] Desc Clean Catch (06/30/22 12:43 PM) Normal [facility] UA Auto SS Urobilinogen Qn (U) [id number] {Lidya'U}/dL Normal 0.0 - 1.0 EU/dL [facility] UA Auto SS WBC Auto Ql (U) Negative (06/30/22 12:43 PM) Normal Negative [facility] UA Auto SS WBC LM.HPF (Urine sed) [#/Area] 0-5 /HPF Normal 0-5/HPF [facility] UA Auto SS Yeast LM Ql (Urine sed) 1+ (06/30/22 12:43 PM) Normal [facility] UA Auto SS CHEMISTRYOrdered By: Winnie Ordaz on 03-14-2022 HbA1c (Bld) [Mass fraction] 7.6 % High <=5.9% [facility] ChemAutoSS CHEMISTRYOrdered By: SYSTEM SYSTEM on 03-04-2022 Anion gap [Moles/Vol] 15 mmol/L Normal 6 - 16 mEq/L [facility] Remisol Calcium [Mass/Vol] 9.6 mg/dL Normal 8.9 - 11. 1 mg/dL [facility] Remisol Chloride [Moles/Vol] 99 mmol/L Low 101 - 1 11 mmol/L [facility] Remisol CO2 [Moles/Vol] 26 mmol/L Normal 21 - 31 mmol/L [facility] Creatinine [Mass/Vol] 1.1 mg/dL Normal 0.5 - 1.3 mg/dL [facility] Remisol GFR/1.73 sq M.predicted among blacks MDRD (S/P/Bld) [Vol rate/Area] mL/min/1.73 m2 Normal >=59mL/min/1 .73 m2 [facility] Chem S GFR/1.73 sq M.predicted among non-blacks MDRD (S/P/Bld) [Vol rate/Area] 55 mL/min/1.73 m2 Low >=59mL/min/1 .73 m2 [facility] Chem S Glucose [Mass/Vol] 242 mg/dL High 55 - 199 mg/dL [facility] Potassium [Moles/Vol] 3.8 mmol/L Normal 3.5 - 5.3 mmol/L [facility] Sodium [Moles/Vol] 136 mmol/L Normal 135 - 145 mmol/L [facility] Remisol Troponin I.cardiac [Mass/Vol] 4.30 pg/mL Low 10.10 - 27.10 pg/mL [facility] Remisol Urea nitrogen [Mass/Vol] 13 mg/dL Normal 5 - 21 mg/dL [facility] Urea nitrogen/Creatinine [Mass ratio] 12 mg/mg Normal 10 - 20 [facility] Remisol CHEMISTRYOrdered By: Lab ROP User on 03-04-2022 Glucose [Mass/Vol] 238 mg/dL High 55 - 99 mg/dL [facility] POC Subsection Comment on above: Result Comment: Genie gurrola RN/ POC Device SN [id number] Invalid Interpretation Code [facility] POC Subsection POC User ID [id number] Invalid Interpretation Code FT POC Subsection POC Username TIAN MONTANEZ Invalid Interpretation Code [facility] POC Subsection COAGULATIONOrdered By: Ozzy Castillo on [...] rate/Area] mL/min/1.73 m2 Normal >=59mL/min/1 .73 m2 [facility] Chem S GFR/1.73 sq M.predicted among non-blacks MDRD (S/P/Bld) [Vol rate/Area] mL/min/1.73 m2 Normal >=59mL/min/1 .73 m2 [facility] Chem S Globulin (S) [Mass/Vol] 2.9 g/dL [...] 7.2 E9/L Normal 4.0 - 11.0 E9/L [facility] HemeAutoSS URINALYSISOrdered By: Asael Mccann on 12-27-2021 [...] AM) Normal Negative [facility] UA Auto SS [place].plasma/[place] .RBC (Bld) [Mass ratio] 0-3 /HPF Normal [...] AM) Invalid Interpretation Code 1.005 - 1.030 [facility] UA Auto SS UA Spec Desc Clean Catch (12/27/21 2:35 AM) Normal [facility] UA Auto SS Urobilinogen Qn (U) [id number] {Lidya'U}/dL Normal 0.0 - 1.0 EU/dL [facility] UA Auto SS WBC Auto Ql (U) Negative (12/27/21 2:35 AM) Normal Negative [facility] UA Auto SS WBC LM.HPF (Urine sed) [#/Area] 0-5 /HPF Normal 0-5/HPF [facility] UA Auto SS CHEMISTRYOrdered By: SYSTEM SYSTEM on 10-10-2021 Cholesterol [Mass/Vol] 138 mg/dL Normal 120 - 200 mg/dL [facility] Cholesterol in HDL [Mass/Vol] 28 mg/dL Invalid Interpretation Code [facility] Cholesterol in LDL [Mass/Vol] 71 mg/dL Normal <=129mg/dL [facility] Cholesterol in VLDL [Mass/Vol] 47 mg/dL High 7 - 40 mg/dL [facility] Triglyceride [Mass/Vol] 234 mg/dL High <=149mg/dL [facility] Troponin I.cardiac [Mass/Vol] 3.10 pg/mL Low 10.10 - 27.10 pg/mL [facility] CHEMISTRYOrdered By: Lab ROP User on 10-10-2021 Glucose [Mass/Vol] 131 mg/dL High 55 - 99 mg/dL [facility] POC Subsection Comment on above: Result Comment: Genie gurrola RN/ Glucose [Mass/Vol] 114 mg/dL High 55 - 99 mg/dL [facility] POC Subsection Comment on above: Result Comment: Genie DUTTA POC Device SN [id number] Invalid Interpretation Code [facility] POC Subsection POC Device SN [id number] Invalid Interpretation Code [facility] POC Subsection POC User ID [id number] Invalid Interpretation Code [facility] POC Subsection POC User ID [id number] Invalid Interpretation Code FT POC Subsection POC Username DALJIT GLORIA Invalid Interpretation Code [facility] POC Subsection POC Username DALJIT GLORIA Invalid Interpretation Code [facility] POC Subsection CHEMISTRYOrdered By: Leigha lewis on 10-10-2021 HbA1c (Bld) [Mass fraction] 7.4 % High <=5.9% [facility] ChemAutoSS CHEMISTRYOrdered By: SYSTEM SYSTEM on 10-09-2021 Albumin [Mass/Vol] 4.1 g/dL Normal 3.3 - [...] mg/dL Normal 8.9 - 11. 1 mg/dL [facility] Chloride [Moles/Vol] 102 mmol/L Normal 101 - 1 11 mmol/L [facility] Rem[facility] CO2 [Moles/Vol] 27 mmol/L Normal 21 - 31 mmol/L [facility] Creatinine [Mass/Vol] 0.8 mg/dL Normal 0.5 - 1.3 mg/dL [facility] Remisol GFR/1.73 sq M.predicted among blacks MDRD (S/P/Bld) [Vol rate/Area] mL/min/1.73 m2 Normal >=59mL/min/1 .73 m2 [facility] Chem S GFR/1.73 sq M.predicted among non-blacks MDRD (S/P/Bld) [Vol rate/Area] mL/min/1.73 m2 Normal >=59mL/min/1 .73 m2 [facility] Chem S Globulin (S) [Mass/Vol] 3.1 g/dL Normal 1.4 - 4.0 gm/dL [facility] Remisol Glucose [Mass/Vol] 121 mg/dL Normal 55 - 199 mg/dL [facility] Remisol Magnesium [Mass/Vol] 1.7 mg/dL Normal 1.3 - 2 .4 mg/dL [facility] Potassium [Moles/Vol] 3.8 mmol/L Normal 3.5 - 5.3 mmol/L [facility] Protein [Mass/Vol] 7.2 g/dL Normal 6.0 - 7.8 gm/dL [facility] Sodium [Moles/Vol] 136 mmol/L Normal 135 - 145 mmol/L [facility] Troponin I.cardiac [Mass/Vol] 3.40 pg/mL Low 10.10 - 27.10 pg/mL [facility] Troponin I.cardiac [Mass/Vol] 3.60 pg/mL Low 10.10 - 27.10 pg/mL [facility] Urea nitrogen [Mass/Vol] 21 mg/dL Normal 5 - 21 mg/dL [facility] Urea nitrogen/Creatinine [Mass ratio] 26 mg/mg High 10 - 20 [facility] CHEMISTRYOrdered By: Lab ROP User on 10-09-2021 Glucose [Mass/Vol] 200 mg/dL High 55 - 99 mg/dL [facility] POC Subsection Comment on above: Result Comment: Genie gurrola RN/ POC Device SN [id number] Invalid Interpretation Code [facility] POC Subsection POC User ID [id number] Invalid Interpretation Code [facility] POC Subsection POC Username LÓPEZ AYERS Invalid Interpretation Code [facility] POC Subsection CHEMISTRYOrdered By: Pushpa thomas on 10-09-2021 Natriuretic peptide B (Bld) [Mass/Vol] pg/mL Low 5 - 80 pg/mL [facility] HemeManSS COAGULATIONOrdered By: Maira Paulino on 10-09-2021 aPTT Coag (PPP) [Time] 28.4 s Normal 25.1 - 36.5 second(s) [facility] Auto Coag INR Coag (PPP) [Relative time] 0.9 {INR} Invalid Interpretation Code [facility] Auto Coag PT Coag (PPP) [Time] 10.9 s Normal 10.2 - 12.9 second(s) [facility] Auto Coag HEMATOLOGYOrdered By: SYSTEM SYSTEM on 10-09-2021 Basophils/100 WBC (Bld) 0.7 % Normal 0.0 - 2.0 % [facility] HemeAutoSS Basophils/Leukocytes Auto (Bld) [Pure # fraction] 0.1 E9/L Normal 0.0 - 0.2 E9/L [facility] HemeAutoSS Eosinophils/100 WBC (Bld) 2.0 % Normal [...] 8.2 E9/L Normal 4.0 - 11.0 E9/L [facility] HemeAutoSS MICRO OTHER TESTSOrdered By: Maira Case on 10-09-2021 Rapid COV Int NEG Ctl Pass (10/09/21 3:20 PM) Normal [facility] Man Sero Rapid COV Int POS Ctl Pass (10/09/21 3:20 PM) Normal [facility] Man Sero SARS-CoV+SARS-CoV-2 (COVID-19) Ag IA.rapid Ql (Resp) Not Detected (10/09/21 3:20 PM) Normal Not Detected [facility] Man Sero CHEMISTRYOrdered By: SYSTEM SYSTEM on 07-12-2021 Albumin [...] 32 mg/dL Normal 7 - 40 mg/dL [facility] CO2 [Moles/Vol] 23 mmol/L Normal 21 - 31 mmol/L [facility] Creatinine [Mass/Vol] 0.9 mg/dL Normal 0.5 - 1.3 mg/dL [facility] GFR/1.73 sq M.predicted among blacks MDRD (S/P/Bld) [Vol rate/Area] mL/min/1.73 m2 Normal >=59mL/min/1 .73 m2 [facility] Chem S GFR/1.73 sq M.predicted among non-blacks MDRD (S/P/Bld) [Vol rate/Area] mL/min/1.73 m2 Normal >=59mL/min/1 .73 m2 [facility] Chem S Globulin (S) [Mass/Vol] 3.2 g/dL [...] 10 - 20 [facility] Remisol CHEMISTRYOrdered By: Natalya woodward on 07-12-2021 Albumin DL <= 20 mg/L (U) [Mass/Vol] 5.8 microgram/mL Normal 0.0 - 19.0 mcg/mL [facility] Remisol CHEMISTRYOrdered By: Erum herndon on 07-12-2021 HbA1c (Bld) [Mass fraction] 6.9 % High <=5.9% [facility] ChemAutoSS HEMATOLOGYOrdered By: SYSTEM SYSTEM on 07-12-2021 [...] 5.0 E9/L Normal 2.0 - 7.5 E9/L [facility] HemeAutoSS HEMATOLOGYOrdered By: Pushpa Renee on 07-12-2021 Erythrocyte distribution width (RBC) [Ratio] 14.4 % High 10.9 - 14.2 % [facility] HemeAutoSS Hematocrit (Bld) [Volume fraction] 44.1 % Normal 34.0 - 46.0 % [facility] HemeAutoSS Hemoglobin (Bld) [Mass/Vol] 14.7 g/dL Normal 12.0 - 16.0 gm/dL [facility] HemeAutoSS MCH (RBC) [Entitic mass] 31.5 pg Normal 27.0 - 34.0 pg [facility] HemeAutoSS MCHC (RBC) [Mass/Vol] 33.4 g/dL Normal 31.4 - 36.0 gm/dL [facility] HemeAutoSS MCV (RBC) [Entitic vol] 94.2 fL [...] 7.6 E9/L Normal 4.0 - 11.0 E9/L [facility] HemeAutoSS URINALYSISOrdered By: Erum Montes De Oca [...] (Urine sed) [#/Area] 3-4 /HPF Normal 0-2/HPF [facility] UA Aut o SS Glucose Test strip (U) [Mass/Vol] 3+ *ABN* (07/12/21 9:10 AM) Invalid Interpretation Code Negative [facility] UA Auto SS Hemoglobin Ql (U) Negative (07/12/21 9:10 AM) Normal Negative [facility] UA Auto SS Ketones (U) [Mass/Vol] Negative (07/12/21 9:10 AM) Normal Negative [facility] UA Auto SS [place].plasma/[place] .RBC (Bld) [Mass ratio] 0-3 /HPF Normal [...] AM) Invalid Interpretation Code 1.005 - 1.030 [facility] UA Auto SS UA Spec Desc Clean Catch (07/12/21 9:10 AM) Normal [facility] UA Auto SS Urobilinogen Qn (U) [id number] {Lidya'U}/dL Normal 0.0 - 1.0 EU/dL [facility] UA Auto SS WBC Auto Ql (U) Negative (07/12/21 9:10 AM) Normal Negative [facility] UA Auto SS WBC LM.HPF (Urine sed) [#/Area] 0-5 /HPF Normal 0-5/HPF [facility] UA Auto SS Yeast LM Ql (Urine sed) Trace (07/12/21 9:10 AM) Normal [facility] UA Auto SS HERPES SIMPLEX VIRUS (HSV) C ULTUREon 12-20-2020 HSV Culture/Type Comment Normal [facility] Comment on above: Result Comment: Nega tive No Herpes simplex virus isolated. Performed By: #### H SVCUL #### [facility] [address] [place] [address] Dr. Kinga Stringer GLYCOHEMOGLOBIN A1Con 2020 ADA RECOMMENDATION ADA THERAPEUTIC TARGET 6.0 - 7.0 ACTION SUGGESTED > 7.0 Normal [facility] Comment on above: Performed By: #### A 1C #### [facility] [address] [place], [place] [id number] Kt Mejia Glucose [Mass/Vol] 148 mg/dL Normal [facility] Comment on above: Performed By: #### A 1C #### [facility] [address] [place], [place] [id number] Kt Mejia HbA1c (Bld) [Mass fraction] 6.8 % Critically high <=6.0 [facility] Comment on above: Performed By: #### A 1C #### [facility] [address] [place], [place] [phone] Kt Mejia PROF CHEM 8 (BAS METB)on Anion gap [Moles/Vol] 13.2 mmol/L Normal [facility] Comment on above: Performed By: #### B MP #### [facility] [address] [place], [place] [id number] Kt Jackie Calcium [Mass/Vol] 9.4 mg/dL Normal 8.4-10.2 [facility] [place] [facility] Comment on above: Performed By: #### B MP #### [facility] [address] [place] [address] Kt Jackie Chloride [Moles/Vol] 101 mmol/L Normal 98-107 [facility] Comment on above: Performed By: #### B MP #### [facility] [address] [place] [address] Kt Jackie CO2 [Moles/Vol] 30.3 mmol/L Critically high 22.0-30.0 [facility] Comment on above: Performed By: #### B MP #### [facility] [address] [place] [address] Kt Jackie Creatinine [Mass/Vol] 0.92 mg/dL Normal 0.52-1.04 [facility] Comment on above: Performed By: #### B MP #### [facility] [address] [place] [address] Kt Jackie EGFR-AF IVORIAN >60 Normal >=60 [facility] Comment on above: Performed By: #### B MP #### [facility] [address] [place] [address] Kt Jackie EGFR-NON AF IVORIAN >60 Normal >=60 [facility] Comment on above: Performed By: #### B MP #### [facility] [address] [place] [address] Kt Jackie Glucose [Mass/Vol] 160 mg/dL Critically high 74-106 [facility] Comment on above: Performed By: #### B MP #### [facility] [address] [place] [address] Kt Jackie Potassium [Moles/Vol] 4.5 mmol/L Normal 3.4-5.0 [facility] Comment on above: Performed By: #### B MP #### [facility] [address] [place] [address] Kt Jackie Sodium [Moles/Vol] 140 mmol/L Normal 137-145 [facility] [place] [facility] Comment on above: Performed By: #### B MP #### [facility] [address] [place], [place] [address] Kt Mejia Urea nitrogen [Mass/Vol] 14.0 mg/dL Normal 7.0-17.0 [facility] Comment on above: Performed By: #### B MP #### [facility] [address] [place], [place] [address] Kt Mejia Urea nitrogen/Creatinine [Mass ratio] 15.2 mg/mg Normal [facility] Comment on above: Performed By: #### B MP #### [facility] [address] [place], [place] [address] Kt Mejia Social History Date Type Detail Facility Start: 03-17-2023 Alcohol intake Ex-drinker (finding) [facility] Start: 03-15-2023 Sex Assigned At Female F [facility] Start: 03-15-2023 Tobacco smoking stat us [facility] Smokes tobacco daily [facility] Start: 03-15-2023 Cigarettes smoked current (pack per day) - Reported 0.5 [facility] Start: 03-15-2023 Alcohol Comment caffeine more than 4 cups per day [facility] Start: 02-21-2021 End: 09-25-2023 Tobacco smoking status Ex-smoker (finding) [facility] Start: 1980 Sex Assigned At Not on file N [facility] Tobacco smoking status Never [facility] History of tobacco use Cigarette Smoker N [facility] Vital Signs Date Time Vital Sign Value Performing Clinician Jose husain 10-02-2023 12:41-0400 Body temperature 98.06 [degF] Juan Arnold [facility] 10-02-2023 12:41-0400 Diastolic blood pressure 79 mm[Hg] Juan Arnold [facility] 10-02-2023 12:41-0400 Heart rate 97 /min Juan Arnold [facility] 10-02-2023 12:41-0400 Respiratory rate 18 /min Juan Arnold [facility] 10-02-2023 12:41-0400 SaO2% (BldA) [Mass fraction] 96 % Juan Arnold [facility] 10-02-2023 12:41-0400 Systolic blood pressure 109 mm[Hg] Juan Arnold [facility] 09-25-2023 08:52-0400 Diastolic blood pressure 79 mm[Hg] Kevin Liudmila [facility] 09-25-2023 08:52-0400 Heart rate 84 /min Kevin Liudmila [facility] 09-25-2023 08:52-0400 Mean blood pressure 91 mm[Hg] Kevin Liudmila [facility] 09-25-2023 08:52-0400 Respiratory rate 18 /min Kevin Liudmila [facility] 09-25-2023 08:52-0400 SaO2% (BldA) [Mass fraction] 95 % Kevin Liudmila [facility] 09-25-2023 08:52-0400 Systolic blood pressure 115 mm[Hg] Kevin Liudmila [facility] 09-25-2023 08:04-0400 Diastolic blood pressure 77 mm[Hg] Kevin Liudmila [facility] 09-25-2023 08:04-0400 Heart rate 89 /min Kevin Liudmila [facility] 09-25-2023 08:04-0400 Mean blood pressure 87 mm[Hg] Kevin Liudmila [facility] 09-25-2023 08:04-0400 Systolic blood pressure 106 mm[Hg] Kevin Liudmila [facility] 09-25-2023 07:10-0400 Diastolic blood pressure 88 mm[Hg] Kevin Liudmila [facility] 09-25-2023 07:10-0400 Heart rate 85 /min Kevin Liudmila [facility] 09-25-2023 07:10-0400 Mean blood pressure 97 mm[Hg] Kevin Liudmila [facility] 09-25-2023 07:10-0400 Respiratory rate 18 /min Kevin Liudmila [facility] 09-25-2023 07:10-0400 SaO2% (BldA) [Mass fraction] 97 % Kevin Liudmila [facility] 09-25-2023 07:10-0400 Systolic blood pressure 116 mm[Hg] Kevin Liudmila [facility] 09-25-2023 06:36-0400 Body temperature 97.88 [degF] Kevin Liudmila [facility] 09-25-2023 06:36-0400 Heart rate 109 /min Kevin Liudmila [facility] 09-25-2023 06:36-0400 Respiratory rate 16 /min Kevin Liudmila [facility] 08-10-2023 21:45-0400 Diastolic blood pressure 70 mm[Hg] Juan Arnold [facility] 08-10-2023 21:45-0400 Heart rate 67 /min Juan Arnold [facility] 08-10-2023 21:45-0400 Mean blood pressure 86 mm[Hg] Juan Arnold [facility] 08-10-2023 21:45-0400 Respiratory rate 17 /min Juan Arnold [facility] 08-10-2023 21:45-0400 SaO2% (BldA) [Mass fraction] 94 % Juan Clayton [facility] 08-10-2023 21:45-0400 Systolic blood pressure 118 mm[Hg] Juan Clayton [facility] 08-10-2023 21:12-0400 Body temperature 97.88 [degF] Juan Clayton [facility] 08-10-2023 21:12-0400 Diastolic blood pressure 59 mm[Hg] Juan Clayton [facility] 08-10-2023 21:12-0400 Heart rate 74 /min Juan Clayton [facility] 08-10-2023 21:12-0400 Mean blood pressure 71 mm[Hg] Juan Clayton [facility] 08-10-2023 21:12-0400 Respiratory rate 15 /min Juan Clayton [facility] 08-10-2023 21:12-0400 SaO2% (BldA) [Mass fraction] 93 % Juan Clayton [facility] 08-10-2023 21:12-0400 Systolic blood pressure 95 mm[Hg] Juan Clayton [facility] 08-10-2023 20:30-0400 Diastolic blood pressure 56 mm[Hg] Juan Clayton [facility] 08-10-2023 20:30-0400 Heart rate 70 /min Juan Clayton [facility] 08-10-2023 20:30-0400 Mean blood pressure 69 mm[Hg] Juan Clayton [facility] 08-10-2023 20:30-0400 Respiratory rate 11 /min Juan Arnold [facility] 08-10-2023 20:30-0400 SaO2% (BldA) [Mass fraction] 94 % Juan Clayton [facility] 08-10-2023 19:07-0400 Body temperature 98.06 [degF] Juan Arnold [facility] 08-10-2023 19:07-0400 Heart rate 86 /min Juan Clayton [facility] 08-10-2023 19:07-0400 Respiratory rate 20 /min Juan Arnold [facility] 07-30-2023 02:18-0400 Diastolic blood pressure 102 mm[Hg] Kaylinn Dokken [facility] 07-30-2023 02:18-0400 Heart rate 88 /min Kaylinn Dokken [facility] 07-30-2023 02:18-0400 Mean blood pressure 109 mm[Hg] Kaylinn Dokken [facility] 07-30-2023 02:18-0400 SaO2% (BldA) [Mass fraction] 93 % Kaylinn Dokken [facility] 07-30-2023 02:18-0400 Systolic blood pressure 123 mm[Hg] Kaylinn Dokken [facility] 07-30-2023 01:00-0400 Body temperature 97.7 [degF] Kaylinn Dokken [facility] 07-30-2023 01:00-0400 Heart rate 83 /min Kaylinn Dokken [facility] 07-30-2023 01:00-0400 Mean blood pressure 83 mm[Hg] Kaylinn Dokken [facility] 07-30-2023 01:00-0400 SaO2% (BldA) [Mass fraction] 94 % Kaylinn Dokken [facility] 07-30-2023 01:00-0400 Systolic blood pressure 110 mm[Hg] Kaylinn Dokken [facility] 07-30-2023 00:13-0400 Diastolic blood pressure 69 mm[Hg] Kaylinn Dokken [facility] 07-30-2023 00:13-0400 Heart rate 80 /min Kaylinn Dokken [facility] 07-30-2023 00:13-0400 Mean blood pressure 79 mm[Hg] Kaylinn Dokken [facility] 07-30-2023 00:13-0400 Respiratory rate 16 /min Kaylinn Dokken [facility] 07-30-2023 00:13-0400 SaO2% (BldA) [Mass fraction] 96 % Kaylinn Dokken [facility] 07-30-2023 00:13-0400 Systolic blood pressure 100 mm[Hg] Kaylinn Dokken [facility] 07-29-2023 21:29-0400 Body temperature 97.88 [degF] Kaylinn Dokken [facility] 07-29-2023 21:29-0400 Respiratory rate 18 /min Kaylinn Dokken [facility] 05-28-2023 15:00-0400 Diastolic blood pressure 68 mm[Hg] [facility] 05-28-2023 15:00-0400 Heart rate 83 /min [facility] 05-28-2023 15:00-0400 Mean blood pressure 75 mm[Hg] [facility] 05-28-2023 15:00-0400 Systolic blood pressure 90 mm[Hg] [facility] 05-28-2023 14:40-0400 Diastolic blood pressure 64 mm[Hg] [facility] 05-28-2023 14:40-0400 Heart rate 79 /min [facility] 05-28-2023 14:40-0400 Mean blood pressure 76 mm[Hg] [facility] 05-28-2023 14:40-0400 Respiratory rate 16 /min [facility] 05-28-2023 14:40-0400 SaO2% (BldA) [Mass fraction] 94 % [facility] 05-28-2023 14:40-0400 Systolic blood pressure 100 mm[Hg] [facility] 05-28-2023 13:02-0400 Body temperature 98.06 [degF] [facility] 05-28-2023 13:02-0400 Diastolic blood pressure 75 mm[Hg] [facility] 05-28-2023 13:02-0400 Heart rate 77 /min [facility] 05-28-2023 13:02-0400 SaO2% (BldA) [Mass fraction] 97 % [facility] 05-28-2023 13:02-0400 Systolic blood pressure 122 mm[Hg] [facility] 10-28-2022 18:54-0400 Diastolic blood pressure 69 mm[Hg] Gunnar Rangel [facility] 10-28-2022 18:54-0400 Heart rate 78 /min Gunnar Juan Carlos [facility] 10-28-2022 18:54-0400 Mean blood pressure 83 mm[Hg] Gunnar Benjamine [facility] 10-28-2022 18:54-0400 SaO2% (BldA) [Mass fraction] 98 % Gunnar Benjamine [facility] 10-28-2022 18:54-0400 Systolic blood pressure 112 mm[Hg] Gunnar Benjamine [facility] 10-28-2022 16:57-0400 Diastolic blood pressure 83 mm[Hg] Gunnar Benjamine [facility] 10-28-2022 16:57-0400 Heart rate 84 /min Gunnar Benjamine [facility] 10-28-2022 16:57-0400 Mean blood pressure 93 mm[Hg] Gunnar Benjamine [facility] 10-28-2022 16:57-0400 SaO2% (BldA) [Mass fraction] 97 % Gunnar Benjamine [facility] 10-28-2022 16:57-0400 Systolic blood pressure 114 mm[Hg] Gunnar Benjamine [facility] 10-28-2022 15:15-0400 Body temperature 98.06 [degF] Gunnar Benjamine [facility] 10-28-2022 15:15-0400 Diastolic blood pressure 68 mm[Hg] Gunnar Benjamine [facility] 10-28-2022 15:15-0400 Heart rate 87 /min Gunnar Benjamine [facility] 10-28-2022 15:15-0400 Respiratory rate 18 /min Gunnar Benjamine [facility] 10-28-2022 15:15-0400 SaO2% (BldA) [Mass fraction] 95 % Gunnar Benjamine [facility] 10-28-2022 15:15-0400 Systolic blood pressure 104 mm[Hg] Gunnar Benjamine [facility] 10-25-2022 11:00-0400 Heart rate 75 /min Gunnar Benjamine [facility] 10-25-2022 11:00-0400 Mean blood pressure 82 mm[Hg] Gunnar Benjamine [facility] 10-25-2022 11:00-0400 Respiratory rate 17 /min Gunnar Benjamine [facility] 10-25-2022 11:00-0400 SaO2% (BldA) [Mass fraction] 92 % Gunnar Benjamine [facility] 10-25-2022 11:00-0400 Systolic blood pressure 93 mm[Hg] Gunnar Benjamine [facility] 10-25-2022 09:32-0400 Body temperature 97.7 [degF] Gunnar Benjamine [facility] 10-25-2022 09:32-0400 Diastolic blood pressure 76 mm[Hg] Gunnar Benjamine [facility] 10-25-2022 09:32-0400 Heart rate 87 /min Gunnar Juan Carlos [facility] 10-25-2022 09:32-0400 Respiratory rate 18 /min Gunnar Benjamine [facility] 10-25-2022 09:32-0400 SaO2% (BldA) [Mass fraction] 94 % Gunnar Juan Carlos [facility] 10-25-2022 09:32-0400 Systolic blood pressure 104 mm[Hg] Gunnar Rangel [facility] 03-04-2022 20:00-0500 Diastolic blood pressure 82 mm[Hg] Kevin Liudmila [facility] 03-04-2022 20:00-0500 Heart rate 88 /min Kevin Liudmila [facility] 03-04-2022 20:00-0500 Mean blood pressure 87 mm[Hg] Kevin Liudmila [facility] 03-04-2022 20:00-0500 Respiratory rate 29 /min Kevin Liudmila [facility] 03-04-2022 20:00-0500 SaO2% (BldA) [Mass fraction] 93 % Kevin Liudmila [facility] 03-04-2022 20:00-0500 Systolic blood pressure 98 mm[Hg] Kevin Liudmila [facility] 03-04-2022 18:25-0500 Body temperature 98.06 [degF] Kevin Liudmila [facility] 03-04-2022 18:25-0500 Diastolic blood pressure 86 mm[Hg] Kevin Liudmila [facility] 03-04-2022 18:25-0500 Heart rate 102 /min Kevin Liudmila [facility] 03-04-2022 18:25-0500 Respiratory rate 21 /min Kevin Liudmila [facility] 03-04-2022 18:25-0500 SaO2% (BldA) [Mass fraction] 95 % Kevin Liudmila [facility] 03-04-2022 18:25-0500 Systolic blood pressure 137 mm[Hg] Kevin Liudmila [facility] 12-27-2021 02:56-0400 Diastolic blood pressure 68 mm[Hg] Shoshanaylinn Dokken [facility] 12-27-2021 02:56-0400 Heart rate 87 /min Kaylinn Dokken [facility] 12-27-2021 02:56-0400 Mean blood pressure 80 mm[Hg] Kaylinn Dokken [facility] 12-27-2021 02:56-0400 SaO2% (BldA) [Mass fraction] 97 % Shoshanaylinn Dokken [facility] 12-27-2021 02:56-0400 Systolic blood pressure 105 mm[Hg] Shoshanaylinn Dokken [facility] 12-27-2021 01:58-0400 Body temperature 97.52 [degF] Shoshanaylinn Dokken [facility] 12-27-2021 01:58-0400 Diastolic blood pressure 110 mm[Hg] Shoshanaylinn Dokken [facility] 12-27-2021 01:58-0400 Heart rate 94 /min Shoshanaylinn Dokken [facility] 12-27-2021 01:58-0400 Respiratory rate 16 /min Shoshanaylinn Dokken [facility] 12-27-2021 01:58-0400 SaO2% (BldA) [Mass fraction] 99 % Shoshanaylinn Dokken [facility] 12-27-2021 01:58-0400 Systolic blood pressure 157 mm[Hg] Kaylinn Dokken [facility] 10-10-2021 12:00-0400 [facility] 10-10-2021 12:00-0400 [facility] 10-10-2021 11:59-0400 gluc 114 mg/dL [facility] 10-10-2021 11:55-0400 Body temperature 97.88 [degF] [facility] 10-10-2021 11:55-0400 Diastolic blood pressure 91 mm[Hg] [facility] 10-10-2021 11:55-0400 Heart rate 78 /min [facility] 10-10-2021 11:55-0400 Mean blood pressure 105 mm[Hg] [facility] 10-10-2021 11:55-0400 SaO2% (BldA) [Mass fraction] 92 % [facility] 10-10-2021 11:55-0400 Systolic blood pressure 133 mm[Hg] [facility] 10-10-2021 11:00-0400 [facility] 10-10-2021 11:00-0400 [facility] 10-10-2021 10:18-0400 Blood Pressure Location [facility] 10-10-2021 10:18-0400 Body temperature 97.52 [degF] [facility] 10-10-2021 10:18-0400 BP/Pulse Patient Position [facility] 10-10-2021 10:18-0400 Diastolic blood pressure 81 mm[Hg] [facility] 10-10-2021 10:18-0400 Heart rate 82 /min [facility] 10-10-2021 10:18-0400 Mean blood pressure 93 mm[Hg] [facility]-10-[facility] 10:18-0400 Respiratory rate 18 /min [facility] 10-10-2021 10:18-0400 SaO2% (BldA) [Mass fraction] 94 % [facility] 10-10-2021 10:18-0400 Systolic blood pressure 117 mm[Hg] [facility] 10-10-2021 10:00-0400 [facility] 10-10-2021 10:00-0400 Promise to Return [facility] 10-10-2021 09:00-0400 SaO2% (BldA) [Mass fraction] 95 % [facility] 10-10-2021 08:50-0400 Diastolic blood pressure 77 mm[Hg] [facility] 10-10-2021 08:50-0400 Heart rate 80 /min [facility] 10-10-2021 08:50-0400 Systolic blood pressure 120 mm[Hg] [facility] 10-10-2021 08:32-0400 gluc 131 mg/dL [facility] 10-10-2021 07:43-0400 Body temperature 97.52 [degF] [facility] 10-10-2021 07:43-0400 Heart rate 79 /min [facility] 10-10-2021 00:19-0400 Blood Pressure Location [facility] 10-10-2021 00:19-0400 BP/Pulse Patient Position [facility] 10-09-2021 23:00-0400 Heart rate 87 /min [facility] 10-09-2021 23:00-0400 Mean blood pressure 78 mm[Hg] [facility] 10-09-2021 21:37-0400 gluc 200 mg/dL [facility] 10-09-2021 21:33-0400 Heart rate 85 /min [facility] 10-09-2021 19:23-0400 Mean blood pressure 89 mm[Hg] [facility] 10-09-2021 18:14-0400 Heart rate 103 /min [facility] 10-09-2021 17:34-0400 Mean blood pressure 88 mm[Hg] [facility] 10-09-2021 17:34-0400 Respiratory rate 24 /min [facility] 10-09-2021 17:27-0400 Mean blood pressure 93 mm[Hg] [facility] 10-09-2021 17:27-0400 Respiratory rate 14 /min [facility] 10-09-2021 16:11-0400 Respiratory rate 16 /min [facility] 10-09-2021 14:15-0400 Heart rate 110 /min [facility] 10-09-2021 14:15-0400 Respiratory rate 18 /min [facility] 06-07-2021 20:36-0400 Body temperature 97.88 [degF] [facility] 06-07-2021 20:36-0400 Diastolic blood pressure 71 mm[Hg] [facility] 06-07-2021 20:36-0400 Heart rate 107 /min [facility] 06-07-2021 20:36-0400 Respiratory rate 16 /min [facility] 06-07-2021 20:36-0400 SaO2% (BldA) [Mass fraction] 93 % [facility] 06-07-2021 20:36-0400 Systolic blood pressure 132 mm[Hg] Mikaela Judd [facility] Functional Status Date Assessment Result Facility 10-02-2023 Functional Status N/A [facility] 09-25-2023 Functional Status N/A [facility] 08-10-2023 Functional Status N/A [facility] 07-29-2023 Functional Status N/A [facility] 05-28-2023 Functional Status N/A [facility] 10-28-2022 Functional Status N/A [facility] 10-25-2022 Functional Status N/A [facility] 03-04-2022 Functional Status N/A [facility] 12-27-2021 Functional Status N/A [facility] 10-09-2021 Functional Status N/A [facility] 10-09-2021 Functional Status [facility] Clinical Notes 06-07-2021 to 10-02-2023 Note Date & Type Note Facility 10-02-2023 Hospital Discharg e instructions Patient Education 10/02/2023 13:34:25 Bartholin's Cyst, Cabd-ys-Giap Bartholin's Cyst A Bartholin's cyst is a [...] Follow these instructions at home: Medicines Take zkpd-ppc-wrmgqtf and prescription medicines only as told by [...] provider. Document Revised: 07/30/2020 Document Reviewed: 07/30/2020 [employer] Patient Education 2022 [employer]. Follow Up Care 10/02/2023 12:30:34 With:Hieu Parish Address: [address], [facility] [address] [place] [address]- Business (1) When:10/05/2023 13:33:45 Comments:Call to schedule a follow up appointment with an OUTGOING INSPECTOR for further management of care. Take the antibiotic in entirerty. With:YANET CHAIREZ Address: [address] [place] [address] [phone] Business (1) When:Within 3 Day(s) [facility] 09-25-2023 Evaluation + Plan note Extrac sandro from: Title:ED Note Author:Gunnar Rangel DO Date:09/13 05/09 Gastritis (K29.70: Gastritis , unspecified, without bleeding) Ordered: promethazine, 25 mg = 1 tab(s), Oral, q4hr, X 3 day(s), # 18 tab(s), Refills(s) 0, Pharmacy: [facility]/pharmacy #[id number], 160, cm, 09/25/23 6:39:00 EDT, [...] Date:12/02/2023 10:00:00 AM Scheduled Provider:Semaj QUINTEROS MD Location: Appointment Type:URO New Patient Future Scheduled Tests Radiology* XR Abdomen 1 View 08/06/23 [facility]07-12-2024 Hospital Discharge instructions Follow Up Care 09/25/2023 06:34:35 With:YANET CHAIREZ [facility] [address] [facility] [place] [address] [phone] Business (1) When:Within 3 Day(s) [facility]05-28-2024 Hospital Discharge instructions Patient Education 08/10/2023 22:15:29 Nonspecific Chest Pain, Adult, Izci-nf-Juzt Nonspecific Chest Pain Chest pain can be [...] Follow these instructions at home: Medicines Take fmul-cni-acjvzlm and prescription medicines only as told by [...] ?Eating a heart-healthy diet. A diet and student finance specialist (dietitian) can help you to learn healthy [...] provider. Document Revised: 05/16/2021 Document Reviewed: 05/16/2021 [employer] Patient Education 2022 [employer]. Follow Up Care 08/10/2023 19:05:46 With:Koko Vasquez Address: [address] [place] [address]- Business (1) When:08/13/2023 21:40:29 Comments:Call for diagnosis based follow up With:YANET CHAIREZ Address: [address] [place] [address] [phone] Business (1) When:08/13/2023 21:40:21 Comments:Call for diagnosis based follow up [facility]05-27-2024 Evaluation + Plan noteExtracted from: Title:ED Note [...] Date:12/02/2023 10:00:00 AM Scheduled Provider:Semaj QUINTEROS MD Location: Appointment Type:URO New Patient Future Scheduled Tests Radiology* XR Abdomen 1 View 08/06/23 [facility]05-16-2024 Evaluation + Plan noteExtracted from: Title:ED Note [...] day(s), # 15 cap(s), Refills(s) 0, [id number], cm, 07/29/23 21:34:00 EDT, Height/Length [...] q8hr, # 12 tab(s), Refills(s) 0, [id number], 160, cm, 07/29/23 21:34:00 EDT, Height/Length [...] day(s), # 9 tab(s), Refills(s) 0, Pharmacy: [facility]/pharmacy #[id number], 160, cm, 07/29/23 21:34:00 EDT, [...] Diagnostic Tests Pending * Urine Culture 07/29/23 [facility]05-16-2024 Hospital Discharge instructions Patient Education 07/30/2023 02:22:55 Urinary Tract Infection, Adult, Ulva-jb-Qvvp Urinary Tract Infection, Adult A urinary tract [...] Follow these instructions at home: Medicines Take wtym-wkm-yehmhla and prescription medicines only as told by [...] provider. Document Revised: 10/12/2020 Document Reviewed: 10/12/2020 [employer] Patient Education 2022 [employer]. 07/30/2023 02:22:55 Flank Pain, Adult, Kpek-qh-Lrev Flank Pain, Adult Flank pain is pain [...] Rest as told by your doctor. Take wkdr-qer-jhnlqlz and prescription medicines only as told by [...] provider. Document Revised: 05/13/2021 Document Reviewed: 05/13/2021 [employer] Patient Education 2022 [employer]. Follow Up Care 07/29/2023 21:13:40 With:YANET CHAIREZ Address: [address] [place] [address] [phone] Business (1) When:08/02/2023 Comments:Take the antibiotics as prescribed you have completed the course. Use the Pyridium, Zofran as prescribed as needed for nausea and burning. Please follow-up with your primary care doctor for further evaluation management. [facility]03-14-2024 Hospital Discharge instructions Patient Education 05/28/2023 15:54:36 [...] discomfort that you are feeling: Medicines Take fala-llm-yemzxoc and prescription medicines only as told by [...] caused by passing a kidney stone. Take yoyf-mpc-ypblrwi and prescription medicines only as told by [...] provider. Document Revised: 11/04/2021 Document Reviewed: 11/04/2021 [employer] Patient Education 2022 [employer]. Follow Up Care 05/28/2023 12:58:24 With:YANET CHAIREZ Address: [address] [place] [address] [phone] Business (1) When:05/31/2023 15:22:50 [facility]03-14-2024 Evaluation + Plan noteExtracted from: Title:ED Note Author:Erik Albert NP Date:05/28/23 Renal colic (N23: Unspecifie d renal colic) Ordered: acetaminophen-oxycodone, 1 tab(s), Oral, q6hr as needed for pain for 3 day(s), 15 tab(s), Refill(s) 0, [facility]/pharmacy #[id number], 160, cm, 05/28/23 13:08:00 EDT, Height/Length Dosing, [...] Daily, # 10 cap(s), Refills(s) 0, Pharmacy: [facility]/pharmacy #[id number], 160, cm, 05/28/23 13:08:00 EDT, Height/Length Dosing, 115, kg, 05/28/23 13:08:00 EDT, Weight Dosing CT Abdomen/Pelvis w/o Contrast UA With Cult Reflex [facility]08-15-2023 Hospital Discharge instructions Patient Education 10/28/2022 18:55:13 [...] including vitamins, herbs, eye drops, creams, and xhxs-nuk-ikxhnde medicines. Any problems you or family members [...] provider tells you to take them. Taking lqql-sqq-ouumhkt medicines, vitamins, herbs, and supplements. Tests You [...] provider. Document Revised: 01/27/2022 Document Reviewed: 11/04/2021 [employer] Patient Education 2022 [employer]. 10/28/2022 18:55:13 Laser Therapy for Kidney Stones, [...] Follow these instructions at home: Medicines Take gltx-yyl-usoyurz and prescription medicines only as told by [...] prevent or treat constipation, such as: ?Take wsxs-axm-affisih or prescription medicines. ?Eat foods that are [...] amounts of blood in your urine. Take gqdk-qar-enjooib and prescription medicines only as told by [...] provider. Document Revised: 11/04/2021 Document Reviewed: 11/04/2021 [employer] Patient Education 2022 [employer]. 10/28/2022 18:55:13 Kidney Stones, Ucrj-od-Agwy Kidney Stones Kidney stones are rock-like masses [...] Follow these instructions at home: Medicines Take zkfv-boa-cvnyesg and prescription medicines only as told by [...] provider. Document Revised: 11/04/2021 Document Reviewed: 11/04/2021 [employer] Patient Education 2022 [employer] 10/28/2022 18:55:13 Flank Pain, Adult, Gyxv-sb-Tohv Flank Pain, Adult Flank pain is pain [...] Rest as told by your doctor. Take atrg-cpv-ijigxji and prescription medicines only as told by [...] provider. Document Revised: 05/13/2021 Document Reviewed: 05/13/2021 [employer] Patient Education 2022 [employer]. Follow Up Care 10/28/2022 15:05:36 With:Dallas MIRANDA Address: [facility] [address] [place] [address]- Business (1) When:10/31/2022 18:38:02 With:YANET CHAIREZ Address: [address] [place] [address] [phone] Business (1) When:Within 3 Day(s) [facility]08-12-2023 Hospital Discharge instructions Patient Education 10/25/2022 12:11:07 [...] Follow these instructions at home: Medicines Take oise-ycn-zfassid and prescription medicines only as told by [...] provider. Document Revised: 11/20/2021 Document Reviewed: 11/04/2021 [employer] Patient Education 2022 [employer]. 10/25/2022 12:11:07 Nonspecific Chest Pain, Adult, Qrsi-lb-Ixsx Nonspecific Chest Pain Chest pain can be [...] Follow these instructions at home: Medicines Take stcx-uce-hyifihs and prescription medicines only as told by [...] ?Eating a heart-healthy diet. A diet and student finance specialist (dietitian) can help you to learn healthy [...] provider. Document Revised: 05/16/2021 Document Reviewed: 05/16/2021 [employer] Patient Education 2022 [employer]. Follow Up Care 10/25/2022 09:30:56 With:Koko Vasquez Address: [address] [place] [phone]- Business (1) When:10/28/2022 11:22:14 With:Dallas MIRANDA Address: [facility] [address] [place] [address]- Business (1) When:10/28/2022 11:22:13 With:YANET CHAIREZ Address: [address] [place] [phone] Business (1) When:10/28/2022 11:22:02 Comments:Follow-up with your primary care provider in 3 to 5 days. If symptoms worsen, do not improve, or new symptoms arise please report back to emergency department for further evaluation. [facility]08-12-2023 Evaluation + Plan note Diagnostic Tests Pending * HgbA1c 10/25/22 [facility]12-20-2022 Hospital Discharge instructions Patient Education 03/04/2022 20:32:49 [...] Follow these instructions at home: Medicines Take ymcr-zpi-byurgkz and prescription medicines only as told by [...] 12/10/2005 Document Revised: 09/02/2018 Document Reviewed: 09/02/2018 [employer] Patient Education 2020 [employer] Follow Up Care 03/04/2022 18:23:11 With:YANET CHAIREZ Address: [address] [place] [address] [phone] Business (1) When:03/06/2022 20:05:36 [facility]12-20-2022 Evaluation + Plan noteExtracted from: Title:ED Note [...] date 03/04/22 19:33:00 EST, 03/04/22 19:33:00 EST [facility]10-14-2022 Evaluation + Plan noteExtracted from: Title:ED Note [...] pain, # 20 tab(s), Refills(s) 0, [id number] 162, cm, 12/27/21 2:03:00 EDT, Height/Length Dosing, 118, kg, 12/27/21 2:03:00 EDT, Weight Dosing ondansetron, 4 mg = 1 tab(s), Oral, q8hr, PRN Nausea/Vomiting, # 12 tab(s), Refills(s) 0, [id number], 162, cm, 12/27/21 2:03:00 EDT, Height/Length [...] Appointments Appointment Date:01/01/2022 10:00:00 AM Scheduled Provider: Location:FT.CAT SCAN Appointment Type:CT Sinus/Orbits/Maxillofacial (FT) Future Scheduled Tests Radiology* CT Maxillofacial w/o Contrast 01/01/22 [facility]10-14-2022 Hospital Discharge instructions Patient Education 12/27/2021 03:52:01 Abdominal Pain, Adult, Qguk-yk-Ludu Abdominal Pain, Adult Many things can cause belly (abdominal) pain. Most times, belly pain is not dangerous. Many cases of belly pain can be watched and treated at home. Sometimes, though, belly pain is serious. Your doctor will try to find the cause of your belly pain. Follow these instructions at home: Medicines Take agjb-fdx-yhejxwe and prescription medicines only as told by [...] your belly pain for any changes. Take nqbn-ghe-eztiflc and prescription medicines only as told by [...] 08/18/2008 Document Revised: 07/11/2019 Document Reviewed: 07/11/2019 [employer] Patient Education 2019 [employer]. Follow Up Care 12/27/2021 01:56:39 With:YANET CHAIREZ Address: [address] [place] [address] [phone] Business (1) When:12/30/2021 Comments:You can use the naproxen every 12 hours and the Zofran every 6 hours as needed for nausea and vomiting. Please follow-up with your primary care doctor in the next 2 to 3 days. Please return the ED for any new or worsening symptoms. [facility]07-28-2022 Evaluation + Plan noteExtracted from: Title:Discharge Note [...] Koko Vasquez 10/22/2021 11:00 AM EDT [address] [place] [address]- Business (1) Additional Instructions: Appointment with FAIZAN Gutierrez 10/21/2021 08:00 PM EDT [address] [place] [id number] Business (1) Additional Instructions: Chest Wall Pain, Wpai-mq-Oonv Extracted from: Title:Consult Note Author:Pedro HERRERA, Lesley Landrum. 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 Diabetes (E11.9: Type 2 diabetes mellitus without complications) 5. HTN (hypertension) (I10: Essential (primary) hypertension) 6. History of AR (myocardial infarction) (I25.2: Old myocardial infarction) 7. [...] devices) Extracted from: Title:APSO Note Author:TERRI HERRERA, Mbanefo Date: 40-year-old morbidly obese C aucasian female cigarette smoker with history of coronary artery disease, AR, status post stent x2, obstructive sleep apnea, [...] artery disease (I25.10: Atherosclerotic heart disease of [place] coronary artery without angina pectoris) Status post stents x2. Continue on aspirin, Plavix, metoprolol and Lipitor. Ordered: Observation Care Discharge Day 4. Diabetes (E11.9: Type 2 diabetes mellitus without complications) Continue on insulin and metformin. Ordered: 5. HTN (hypertension) (I10: Essential (primary) hypertension) On metoprolol and losartan. 6. History of AR (myocardial infarction) (I25.2: Old myocardial infarction) Historical. [...] smoker with history of coronary artery disease, AR, status post stent x2, obstructive sleep apnea, [...] wall Initial Observation Care/Day Moderate 50 min 31721 2. Anxiety (F41.9: Anxiety disorder, unspecified) May be contributing to above. Continue on Xanax as needed. Ordered: Initial Observation Care/Day Moderate 50 min [id number] 3. Coronary artery disease (I25.10: Atherosclerotic heart disease of [place] coronary artery without angina pectoris) Status post AR status post stents x2. Continue on aspirin, Plavix, Lipitor and metoprolol. Ordered: Initial Observation Care/Day Moderate 50 min [id number] 4. Diabetes (E11.9: Type 2 diabetes mellitus without complications) Continue on Lantus and metformin. Started patient on sliding scale insulin. Ordered: Initial Observation Care/Day Moderate 50 min 21019 5. HTN (hypertension) (I10: Essential (primary) hypertension) Continue on metoprolol, losartan. 6. History of AR (myocardial infarction) (I25.2: Old myocardial infarction) Historical. [...] date 10/09/21 21:00:00 EDT, 10/09/21 17:14:00 EDT [facility] Prescription, Jardiance 25 mg oral tablet, Oral, [...] artery disease (I25.10: Atherosclerotic heart disease of [place] coronary artery without angina pectoris) 4. Diabetes (E11.9: Type 2 diabetes mellitus without complications) 5. HTN (hypertension) (I10: Essential (primary) hypertension) 6. History of AR (myocardial infarction) (I25.2: Old myocardial infarction) 7. [...] Level PT & PTT Rapid COVID Antigen ([facility] Saline Lock Insert Troponin 0 Hr. Troponin 3 Hr. Troponin 6 Hr. Troponin 9 Hr. XR Chest Single View Future Appointments Appointment Date:10/22/2021 11:00:00 AM Scheduled Provider:Dorothy ALMANZAR CNP Location:.Cardiology Clinic Appointment Type:Cardiology Inpatient Follow Up (FT) [facility]-28-2022 Hospital Discharge instructions Patient Education 10/10/2021 10:33:41 Chest Wall Pain, [id number] Chest Wall Pain Chest wall pain is [...] are safe for you. General instructions Take hekd-boi-ukmpygj and prescription medicines only as told by [...] 08/18/2008 Document Revised: 09/02/2018 Document Reviewed: 09/02/2018 [employer] Patient Education 2020 [employer]. Follow Up Care 10/09/2021 14:07:15 With:YANET CHAIREZ Address: [address] [place] [address] Business (1) When:10/21/2021 20:00:00 With:Koko Vasquez Address: [address] [place] [address]- Business (1) When:10/22/2021 11:00:00 Comments:Appointment with Dorothy Almanzar CNP [facility]06-08-2022 NotePROCEDURE: XR ANKLE LT MIN 3 V, [...] by: ERUM DE LA CRUZ Date: 2021-08-21 17:19[facility]06-08-2022 NotePROCEDURE: XR ANKLE LT MIN 3 [...] by: ERUM DE LA CRUZ Date: 2021-08-21 17:19[facility]03-25-2022 Hospital Discharge instructions Patient Education 06/07/2021 20:49:54 Blepharitis, Kluv-[id number] Blepharitis Blepharitis is swelling of the eyelids. [...] 12/09/2008 Document Revised: 08/30/2018 Document Reviewed: 08/30/2018 [employer] Patient Education 2020 [employer]. Follow Up Care 06/07/2021 20:31:14 With:YANET CHAIREZ CNP Address:Unknown When:06/10/2021 [facility]03-25-2022 Evaluation + Plan noteExtracted from: Title:ED Note Author:Phoebe Dubon PA-C Date :06/07/21 1. Unspecified blepharitis l eft upper eyelid (H01.004: Unspecified blepharitis left upper eyelid) Ordered: erythromycin ophthalmic, 0.5 in, OPTH, QID for 7 day(s), 3.5 gm, Refill(s) 0, [id number], 165, cm, 06/07/21 20:41:00 EDT, Height/Length Dosing, 121, kg, 06/07/21 20:41:00 EDT, Weight Dosing [facility] Future Appointments Appointment Date:12/02/2023 10:00:00 AM Scheduled Provider:Semaj QUINTEROS MD Location: Appointment Type:URO New Patient Future Scheduled Tests Radiology* XR Abdomen 1 View [facility]06/23 [facility] Diagnosis Gastroesophageal reflux disease, unspecified whether esophagitis present- Primary Gastro-esophageal reflux disease without esophagitis Esophageal reflux documented in this encounter [facility] course Narrative No data available for this section [facility] No data available for this section [facility] No data available for this section [facility] Summary Purpose Family History No Family History [...] and content) DATE CREATED AUTHOR 08/24/2021 [facility] DATE CREATED AUTHOR AUTHOR'S ORGANIZ ATION 08/01/2023 [facility] DATE CREATED AUTHOR AUTHOR'S ORGANIZ ATION 08/08/2023 [facility] EPIC DATE CREATED AUTHOR AUTHOR'S ORGANIZ ATION 08/10/2023 [facility] DATE CREATED AUTHOR AUTHOR'S ORGANIZ ATION 09/20/2023 [facility] DATE CREATED AUTHOR AUTHOR'S ORGANIZ ATION 10/01/2023 [facility] Care Team (unrecognized sect ion and content) Personnel Name: YANET CHAIREZ CNP Address: Address: [address] [place] [address] [place] Name: Aleah Carbone Pocket Closer Relationship Specialty Start Date End Date Tate Martinez MD [address] [place] [address] PCP - General Family Medicine 04/03/23 Reason [...] BE BASED ON THE PRIMARY CLINICAL RECORDS. [facility]. provides no warranty or guarantee of the accuracy or completeness of information in this document.
[2023-10-04] MEDS: LACTATED RINGER'S SOLUTION 1,000 ML 75 ML IV (01:14)
[2023-10-04] MEDS: PROMETHAZINE HCL 25 MG in 0.9 % SODIUM CHLORIDE 50 ML 204 MG IV (01:21)
[2023-10-04] MEDS: HYDROMORPHONE HCL 1 MG/ML CARTRIDGE IV ×4 (01:22→15:05)
[2023-10-04] MEDS: ALPRAZOLAM 0.5 MG TABLET PO ×3 (01:23→17:13)
[2023-10-04] MEDS: METOPROLOL SUCCINATE 25 MG TAB.ER.24H PO (01:23)
[2023-10-04] MEDS: EZETIMIBE 10 MG TABLET PO ×2 (01:23→22:06)
[2023-10-04] MEDS: VANCOMYCIN HCL 1,500 MG in 0.9 % SODIUM CHLORIDE 500 ML 125 MG IV (01:45)
[2023-10-04 07:31] LABS: Glucometer 111 mg/dL (74-106)
[2023-10-04] MEDS: ASPIRIN 81 MG TABLET.DR PO (09:50)
[2023-10-04] MEDS: CLOPIDOGREL BISULFATE 75 MG TABLET PO (09:50)
[2023-10-04] MEDS: GABAPENTIN 400 MG CAPSULE 800 MG PO ×3 (10:00→22:06)
[2023-10-04] MEDS: VANCOMYCIN HCL 1,000 MG in 0.9 % SODIUM CHLORIDE 250 ML 250 MG IV ×2 (10:29→22:20)
[2023-10-04 11:31] LABS: Glucometer 139 mg/dL (74-106)
[2023-10-04] MEDS: [UNRECOGNIZED DRUG - REMARK] 1 EACH PO (11:36)
--- NOTE | 2023-10-04 15:07 | PM.GYNPN2 ---
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 DUBON WHO PRESENTED TO ED YESTERDAY FOR COMPLAINT OF PAIN IN LEFT LABIA. SHE HAD BEEN TO OTHER ED DAY PRIOR WHO PERFORMED I AND D BUT NO DRAINAGE OBTAINED. PATIENT HAD BEEN ON CLINDAMYCIN. HER WBC NOT ELEVATED, SHE IS NOT FEBRILE, SHE IS IN MONOGAMOUS RELATIONSHIP. THIS IS NOT A BARTHOLIN CYST. BECAUSE OF HER PAIN AND THE FACT THAT SHE IS AN INSULIN DEPENDENT DIABETIC AND OBESE, SHE WAS ADMITTED, (OBSERVATION) FOR PAIN MANAGEMENT AND INTRAVENOUS VANCOMYCIN Post-Op Subjective: pain not well controlled Exam Narrative Exam Narrative: REPORTS PAIN 10 OUT OF 10 OF LEFT LABIA Constitutional Vital Signs, click to edit/add: Last Vital Signs Temp 97.9 F 10/04/23 13:08 Pulse 100 H 10/04/23 13:08 Resp 20 10/04/23 13:08 BP 109/67 10/04/23 13:08 Pulse Ox 92 L 10/04/23 13:08 O2 Del Method Room Air 10/04/23 13:08 O2 Flow Rate 2 10/04/23 12:05 Documenting provider has reviewed patient's vital signs: yes Common normals: oriented x3 and alert General appearance: cooperative and in distress Nutritional appearance: obese Orientation/consciousness: Yes awake, Yes oriented to person, Yes oriented to place and Yes oriented to time HENMT Common normals: normocephalic and head/scalp atraumatic Eye Common normals: PERRL, EOMs intact bilaterally and conjunctivae normal General eye: normal appearance of both eyes Pupil: accommodation reflex normal Neck & C-Spine Common normals: full ROM and supple Respiratory Common normals: normal respiratory effort Cardio Common normals: regular rate and regular rhythm GI Common normals: Normal to inspection, nondistended, normoactive bowel sounds present and soft to palpation Common normals: no CVA tenderness External Female Exam: external swelling (LEFT LABIA: NO BARTHOLIN CYST. PRESENCE OF MULTIPLE SEBACEOUS CYSTS. ) and external lesion (SUUBCUTANEOUS MOBILE MASS, SEE CT FOR DESCRIPTION AND SIZE) Extremity Common normals: normal to inspection, full ROM and no calf tenderness Neuro Common normals: CN's II-XII intact bilaterally, moves all extremities, no focal motor deficits and no sensory deficits noted Psych Common normals: mental status grossly normal, thought process normal, cooperative, affect normal and speech normal Appearance: grossly normal Attitude: engaged Activity/motor behavior: appropriate eye contact Speech: normal speech Results Labs Labs: Short CBC 10/03/23 Range/Units 18:40 WBC 10.2 (4.0-11.0) 10^3/uL Hgb 13.4 (12.0-16.0) g/dL Hct 41.5 (36.0-48.0) % Plt Count 215 (150-450) 10^3/uL BMP 10/03/23 20:50 Sodium 136 Potassium 3.9 Chloride 102 Carbon Dioxide 28.1 BUN 27.0 H Creatinine 1.23 H Glucose 86 Calcium 8.8 Liver Function 10/03/23 Range/Units 20:50 Total Bilirubin 0.5 (0.2-1.0) mg/dL AST 10 L (15-37) U/L ALT 13 L (14-59) U/L Alkaline Phosphatase 107 (46-116) U/L Albumin 3.7 (3.4-5.0) g/dL SALES OPERATIONS ASSISTANT - A/P Assessment and Plan (1) Cellulitis: Onset Date: ~09/2023 Assessment and Plan: LEFT LABIAL INFLAMMATION AND EDEMA. CT IDENTIFIED SMALL ABSCESS. YESTERDAY [facility] ED ATTEMPTED I AND D HOWEVER NO PURULENT SUBSTANCE OBTAINED. CAME TO [facility] FOR SECOND OPINION DUE TO PAIN. HAD BEEN ON CLINDAMYCIN BUT PER PATIENT IT WAS NOT HELPING. SHE WAS TEARFUL Qualifiers: Site of cellulitis of trunk: perineum Plan ADMIT OBSERVATION. START IV VANCO 20 MG PER KG PER PHARMACY DOSING. OBSERVE FOR IMPROVEMENT OF SYMPTOMS. SUPPORTIVE CARE WITH PAIN MANAGEMENT. THIS PATIENT HAS A LONG LIST OF MEDICAL DIAGNOSES FOR WHICH SHE CAN TAKE HOME MEDICATIONS FOR. THIS MATTER DISCUSSED WITH NURSE. Fall Risk Details [place] fall scale risk level: Moderate Fall Risk Current medications: Current Medications Alprazolam (Alprazolam 0.5 Mg Tablet) 0.5 mg PO Q8H [facility] Last Admin: 10/04/23 09:42 Dose: 0.5 mg Aspirin (Aspirin 81 Mg Tablet.) 81 mg PO QD [facility] Last Admin: 10/04/23 09:50 Dose: 81 mg Atorvastatin Calcium (Atorvastatin Calcium 40 Mg Tablet) 80 mg PO QHS [facility] Clopidogrel Bisulfate (Clopidogrel Bisulfate 75 Mg Tablet) 75 mg PO QD [facility] Last Admin: 10/04/23 09:50 Dose: 75 mg Ezetimibe (Ezetimibe 10 Mg Tablet) 10 mg PO QHS [facility] Gabapentin (Gabapentin 400 Mg Capsule) 800 mg PO TID [facility] Last Admin: 10/04/23 15:05 Dose: 800 mg Hydromorphone HCl (Hydromorphone Hcl 1 Mg/Ml Cartridge) 1 mg IV Q4H PRN PRN Reason: Pain Scale 7-10 Last Admin: 10/04/23 15:05 Dose: 1 mg Hydroxyzine Pamoate (Hydroxyzine Pamoate 25 Mg Capsule) 25 mg PO BID PRN PRN Reason: Anxiety Promethazine HCl 25 mg/ Sodium (Chloride) 51 mls @ 204 mls/hr IV Q12H PRN PRN Reason: Nausea And Vomiting Last Infusion: 10/04/23 01:36 Dose: Infused Vancomycin HCl 1,000 mg/ (Sodium Chloride) 250 mls @ 250 mls/hr IV Q12H [facility] Last Infusion: 10/04/23 11:58 Dose: Infused Insulin Aspart (Insulin Aspart 300 Unit/3 Ml Pen) 3 - 15 unit SUBQ [facility]; Protocol Last Admin: 10/04/23 11:38 Dose: Not Given Losartan Potassium (Losartan Potassium 25 Mg Tablet) 25 mg PO QD [facility] Last Admin: 10/04/23 10:02 Dose: Not Given Metformin HCl (Metformin Hcl 500 Mg Tablet) 1,000 mg PO BIDWM [facility] Metoprolol Succinate (Metoprolol Succinate 25 Mg Tab.Er.24h) 25 mg PO BID [facility] Last Admin: 10/04/23 10:02 Dose: Not Given Non-Formulary Medication (Mounjaro) 12.5 mg SUBQ QWEEK [facility] Non-Form Jardiance (25 Mg) 1 each PO QD [facility] Last Admin: 10/04/23 11:36 Dose: 1 each Time Spent With Patient Time: Total time spent is greater than 50% in coordination of care (as documented) at patient's floor/unit and/or counseling patient: Time with patient: greater than 35 minutes
[2023-10-04] MEDS: OMEPRAZOLE 20 MG CAPSULE.DR PO (17:29)
[2023-10-04] MEDS: HYDROMORPHONE HCL 1 MG/ML CARTRIDGE IVP ×2 (17:59→20:23)
[2023-10-04 19:51] LABS: Glucometer 114 mg/dL (74-106)
[2023-10-04] MEDS: ATORVASTATIN CALCIUM 40 MG TABLET 80 MG PO (22:06)
[2023-10-04] MEDS: HYDROXYZINE PAMOATE 25 MG CAPSULE PO (22:20)
[2023-10-05] VITALS (20 sets, daily range): BP systolic 86–126; BP diastolic 54–84; PULSE 74–99; TEMP 36.3–36.8; O2SAT 80–100
[2023-10-05] MEDS: HYDROMORPHONE HCL 1 MG/ML CARTRIDGE IV (00:28)
[2023-10-05] MEDS: DIPHENHYDRAMINE HCL 25 MG CAPSULE 50 MG PO (00:29)
[2023-10-05] MEDS: HYDROMORPHONE HCL 1 MG/ML CARTRIDGE IVP ×5 (05:12→21:28)
[2023-10-05] MEDS: GABAPENTIN 400 MG CAPSULE 800 MG PO ×3 (05:13→21:26)
[2023-10-05] MEDS: METFORMIN HCL 500 MG TABLET 1000 MG PO ×2 (08:51→17:53)
[2023-10-05] MEDS: LOSARTAN POTASSIUM 25 MG TABLET PO (08:51)
[2023-10-05] MEDS: METOPROLOL SUCCINATE 25 MG TAB.ER.24H PO ×2 (08:52→21:26)
[2023-10-05] MEDS: HYDROXYZINE PAMOATE 25 MG CAPSULE PO (08:52)
[2023-10-05] MEDS: ASPIRIN 81 MG TABLET.DR PO (08:52)
[2023-10-05] MEDS: [UNRECOGNIZED DRUG - REMARK] 1 EACH PO (08:56)
[2023-10-05] MEDS: ALPRAZOLAM 0.5 MG TABLET PO (10:14)
[2023-10-05 10:58] LABS: Vancomycin Trough 9.9 ug/mL (5.0-20.0)
--- NOTE | 2023-10-05 11:26 | PM.DST ---
Transfer Discharge Sum: Prov Provider Date of admission: 10/03/23 23:05 Primary care physician: Yanet Junior NP Admitting clinician: Casi Mascorro Attending physician on discharge: Casi Mascorro Anticipated date of transfer: 10/05/23 DS: Diagnosis Discharge Diagnosis (1) Mass: Assessment and plan: EDEMA HAS RECEDED SINCE ADMISSION S/P VANCOMYCIN. NOW A SOLID MASS, (NOT BARTHOLIN GLAND CYST) IS PALPATED APPROXIMATELY 3 X 3 CM FILLING AREA C/W THE LOCATION OF BARTHOLIN GLAND (2) Cellulitis: Onset Date: ~09/2023 Assessment and plan: RESOLVED S/P THREE DAYS VANCO IV Qualifiers: Site of cellulitis of trunk: perineum Plan [facility]SF[facility] CARE TO [facility] THIS MASS NEEDS TO BE EXCISED. DECISION TO TRANSFER BASED ON FACT THAT THIS COULD BE A CANCER. ALSO, HER SEVERE EXTENSIVE MEDICAL HISTORY MANDATES THAT SHE BE TREATED IN A [facility]ERTI[facility] HOSPITAL ABLE TO DEAL WITH ANY CARDO-VASCULAR COMPLICATIONS OR OTHER MEDICAL COMLICATIONS THAT COULD OCCUR THOUGH NOT EXPECTED TO Transfer Discharge Sum: Med Medications Active and Home Medications: Home Medications alprazolam 1 mg tablet (Xanax) 0.5 mg PO TID 08/25/22 [History Confirmed 10/03/23] aspirin 81 mg tablet,delayed release 81 mg PO DAILY 08/25/22 [History Confirmed 10/03/23] atorvastatin 80 mg tablet 80 mg PO QPM 08/25/22 [History Confirmed 10/04/23] clopidogrel 75 mg tablet (Plavix) 75 mg PO DAILY 08/25/22 [History Confirmed 10/03/23] empagliflozin 25 mg tablet (Jardiance) 25 mg PO DAILY 08/25/22 [History Confirmed 10/03/23] ezetimibe 10 mg tablet 10 mg PO DAILY 08/25/22 [History Confirmed 10/03/23] hydroxyzine pamoate 25 mg capsule 25 mg PO BID PRN anxiety 08/25/22 [History Confirmed 10/03/23] losartan 25 mg tablet 25 mg PO DAILY 08/25/22 [History Confirmed 10/03/23] metformin 1,000 mg tablet 1,000 mg PO BID 08/25/22 [History Confirmed 10/03/23] metoprolol succinate 25 mg tablet,extended release 24 hr 25 mg PO BID 08/25/22 [History Confirmed 10/03/23] mounjaro 12.5 mg IM .weekly 08/25/22 [History Confirmed 10/04/23] omeprazole 20 mg capsule,delayed release 20 mg PO DAILY PRN stomach upset 08/25/22 [History Confirmed 10/03/23] clindamycin HCl 300 mg capsule 300 mg PO Q6H 7 days #28 caps 08/26/22 [Rx Confirmed 10/03/23] gabapentin 400 mg capsule 800 mg PO TID 08/26/22 [History Confirmed 10/03/23] oxycodone-acetaminophen 5 mg-325 mg tablet (Percocet) 1 tab PO Q6H PRN pain #6 tabs 10/02/22 [Rx Confirmed 10/03/23] promethazine 25 mg tablet 25 mg PO TID PRN nausea and vomiting 10/03/23 [History Confirmed 10/03/23] Active Medications Alprazolam (Alprazolam 0.5 Mg Tablet) 0.5 mg PO Q8H [facility] Last Admin: 10/05/23 10:14 Dose: 0.5 mg Aspirin (Aspirin 81 Mg Tablet.Dr) 81 mg PO QD [facility] Last Admin: 10/05/23 08:52 Dose: 81 mg Atorvastatin Calcium (Atorvastatin Calcium 40 Mg Tablet) 80 mg PO QHS [facility] Last Admin: 10/04/23 22:06 Dose: 80 mg Clopidogrel Bisulfate (Clopidogrel Bisulfate 75 Mg Tablet) 75 mg PO QD [facility] Last Admin: 10/05/23 08:56 Dose: Not Given Ezetimibe (Ezetimibe 10 Mg Tablet) 10 mg PO QHS [facility] Last Admin: 10/04/23 22:06 Dose: 10 mg Gabapentin (Gabapentin 400 Mg Capsule) 800 mg PO TID [facility] Last Admin: 10/05/23 05:13 Dose: 800 mg Hydromorphone HCl (Hydromorphone Hcl 1 Mg/Ml Cartridge) 1 mg IVP Q3H PRN PRN Reason: Pain Scale 7-10 Last Admin: 10/05/23 08:52 Dose: 1 mg Hydroxyzine Pamoate (Hydroxyzine Pamoate 25 Mg Capsule) 25 mg PO BID PRN PRN Reason: Anxiety Last Admin: 10/05/23 08:52 Dose: 25 mg Promethazine HCl 25 mg/ Sodium (Chloride) 51 mls @ 204 mls/hr IV Q12H PRN PRN Reason: Nausea And Vomiting Last Infusion: 10/04/23 01:36 Dose: Infused Vancomycin HCl 1,000 mg/ (Sodium Chloride) 250 mls @ 250 mls/hr IV Q12H [facility] Last Infusion: 10/05/23 00:30 Dose: Infused Insulin Aspart (Insulin Aspart 300 Unit/3 Ml Pen) 3 - 15 unit SUBQ ACHS [facility]; Protocol Last Admin: 10/05/23 08:02 Dose: Not Given Losartan Potassium (Losartan Potassium 25 Mg Tablet) 25 mg PO QD [facility] Last Admin: 10/05/23 08:51 Dose: 25 mg Metformin HCl (Metformin Hcl 500 Mg Tablet) 1,000 mg PO BIDWM [facility] Last Admin: 10/05/23 08:51 Dose: 1,000 mg Metoprolol Succinate (Metoprolol Succinate 25 Mg Tab.Er.24h) 25 mg PO BID [facility] Last Admin: 10/05/23 08:52 Dose: 25 mg Non-Formulary Medication (Mounjaro) 12.5 mg SUBQ QWEEK [facility] Non-Form Jardiance (25 Mg) 1 each PO QD [facility] Last Admin: 10/05/23 08:56 Dose: 1 each Omeprazole (Omeprazole 20 Mg Capsule.Dr) 20 mg PO QD PRN PRN Reason: stomach Last Admin: 10/04/23 17:29 Dose: 20 mg Transfer Discharge Sum: Hosp Hospital Course Hospital course: UNCOMPLICATED MEDICALLY. HOWEVER, PAIN MANAGEMENT HAS REQUIRED DILAUDID 1 MG IV EVERY THREE HOURS Status at Discharge Cognitive capacity at transfer: COGNITIVELY INTACT. ORIENTED TIMES THREE Functional capacity at transfer: independent ambulation Overall status at transfer: patient is not back to baseline Time Spent with Patient Time attestation: Total time spent providing and/or coordinating transfer services: Total time spent: greater than 30 minutes Exam Narrative: Exam Narrative: PATIENT ASKING THAT WHATEVER IS CAUSING HER PAIN IN HER LEFT LABIA BE REMOVED SHE IS IN SEVERE PAIN Constitutional: Vital Signs, click to edit/add: Last Vital Signs Temp 98.2 F 10/05/23 08:08 Pulse 81 10/05/23 08:08 Resp 12 10/05/23 08:08 BP 111/73 10/05/23 08:08 Pulse Ox 93 L 10/05/23 09:34 O2 Del Method Room Air 10/05/23 09:34 O2 Flow Rate 3 10/05/23 05:08 Documenting provider has reviewed patient's vital signs: yes Common normals: oriented x3 and alert General appearance: cooperative and in distress Nutritional appearance: obese Orientation/consciousness: Yes awake, Yes oriented to person, Yes oriented to place and Yes oriented to time Other: PATIENT HAS LOST ONE HUNDRED POUNDS HENMT: Common normals: normocephalic, head/scalp atraumatic, hearing grossly normal bilaterally and external ears normal Head and scalp: normal to inspection Face and sinus: normal facial exam Mouth: oral and palatal mucosa normal Eye: Common normals: PERRL, EOMs intact bilaterally, conjunctivae normal and no scleral icterus General eye: normal appearance of both eyes Neck & C-Spine: Common normals: full ROM and supple Respiratory: Common normals: normal respiratory effort, no retractions and clear to auscultation bilaterally Effort & inspection: able to speak in complete sentences Cardio: Common normals: regular rate and regular rhythm GI: Common normals: Normal to inspection, nondistended, normoactive bowel sounds present, soft to palpation and non-tender : Common normals: no CVA tenderness and appearance of the cervix normal (S/P HYSTERECTOMY) External Female Exam: external swelling (PICTURE IN CHART. THREE DAYS AGO EDEMA AND CELLULITIS OF LEFT LABIA. ) and other (3 X 3 SOLID MASS IN AREA C/W LEFT BARTHOLIN GLAND) Bimanual exam- vagina & uterus: normal bimanual exam (S/P HSTERECTOMY) Back & Pelvis: Common normals: no thoracic nor lumbar tenderness Extremity: Common normals: normal to inspection, full ROM, no joint enlargement and no calf tenderness Neuro: Common normals: oriented x3, CN's II-XII intact bilaterally, moves all extremities, no focal motor deficits and no sensory deficits noted Sensorium/orientation: awake, alert, oriented to person, oriented to place and oriented to time Motor exam: strength 5/5 throughout Psych: Common normals: mental status grossly normal Appearance: grossly normal and well kempt Attitude: other (TEARFUL DUE TO PAIN AND FEAR THOUGH RECEIVING PAIN/ANXIETY MEDS) Activity/motor behavior: appropriate eye contact Speech: normal speech Mood and affect: tearful and fearful Discharge Plan Discharge Disposition: [facility] Condition: Good Assessment: NOT SEPTIC. NOT FEBRILE. LEFT LABIAL EDEMA AND CELLULITIS MUCH RESOLVED ON DAY 3 VANCOMYCIN IV. NOW SOLID MASS PALPATED 3X3 CM LEFT LABIA IN AREA C/W BARTHOLIN GLAND. DUE TO HISTORY OF CAD, INSULIN DEPENDENT TYPE TWO DM.....AND THE FACT THAT THIS MASS COULD BE CANCER...THE DECISION WAS MADE TO TRANSFER TO [facility] Discharge Location: [facility]
[2023-10-05 11:47] LABS: Glucometer 91 mg/dL (74-106)
[2023-10-05] MEDS: VANCOMYCIN HCL 1,000 MG in 0.9 % SODIUM CHLORIDE 250 ML 250 MG IV (11:47)
[2023-10-05 16:25] LABS: Glucometer 126 mg/dL (74-106)
[2023-10-05 20:50] LABS: Glucometer 100 mg/dL (74-106)
[2023-10-05] MEDS: EZETIMIBE 10 MG TABLET PO (21:26)
[2023-10-05] MEDS: ATORVASTATIN CALCIUM 40 MG TABLET 80 MG PO (21:26)
[2023-10-05] MEDS: VANCOMYCIN HCL 1,000 MG in 0.9 % SODIUM CHLORIDE 250 ML 150 MG IV (22:57)
--- NOTE | 2023-10-05 23:03 | PC.NURSE ---
Notified nurse that patient's inhaler is on bedside.
[2023-10-06] MEDS: HYDROMORPHONE HCL 1 MG/ML CARTRIDGE IVP ×4 (00:45→11:31)
[2023-10-06 02:00] VITALS: O2SAT 93
[2023-10-06 04:00] VITALS: BP 108/75; PULSE 75; TEMP 36.4; O2SAT 93; O2SAT 94
[2023-10-06 04:42] VITALS: O2SAT 94
[2023-10-06] MEDS: GABAPENTIN 400 MG CAPSULE 800 MG PO ×2 (05:37→13:06)
[2023-10-06 07:34] LABS: Glucometer 76 mg/dL (74-106)
[2023-10-06] MEDS: HYDROXYZINE PAMOATE 25 MG CAPSULE PO (07:34)
[2023-10-06] MEDS: METFORMIN HCL 500 MG TABLET 1000 MG PO (07:34)
[2023-10-06] MEDS: ALPRAZOLAM 1 MG TABLET PO (07:36)
[2023-10-06 08:00] VITALS: BP 131/72; PULSE 80; TEMP 36.4; O2SAT 93
[2023-10-06 08:03] LABS: Glucometer 89 mg/dL (74-106)
[2023-10-06] MEDS: METOPROLOL SUCCINATE 25 MG TAB.ER.24H PO (08:40)
[2023-10-06] MEDS: CLOPIDOGREL BISULFATE 75 MG TABLET PO (08:40)
[2023-10-06] MEDS: LOSARTAN POTASSIUM 25 MG TABLET PO (08:40)
[2023-10-06] MEDS: ASPIRIN 81 MG TABLET.DR PO (08:40)
[2023-10-06 09:35] VITALS: O2SAT 93
[2023-10-06] MEDS: VANCOMYCIN HCL 1,000 MG in 0.9 % SODIUM CHLORIDE 250 ML 250 MG IV (11:31)
[2023-10-06 11:43] LABS: Glucometer 103 mg/dL (74-106)
--- NOTE | 2023-10-06 12:49 | P.GYNPN_ITS ---
LNA - PN: Subj Non-OR Interval history: THIS IS A PATIENT OF DR. DUBON WHO PRESENTED TO ED YESTERDAY FOR COMPLAINT OF PAIN IN LEFT LABIA. SHE HAD BEEN TO OTHER ED DAY PRIOR WHO PERFORMED I AND D BUT NO DRAINAGE OBTAINED. PATIENT HAD BEEN ON CLINDAMYCIN. HER WBC NOT ELEVATED, SHE IS NOT FEBRILE, SHE IS IN MONOGAMOUS RELATIONSHIP. THIS IS NOT A BARTHOLIN CYST. BECAUSE OF HER PAIN AND THE FACT THAT SHE IS AN INSULIN DEPENDENT DIABETIC AND OBESE, SHE WAS ADMITTED, (OBSERVATION) FOR PAIN MANAGEMENT AND INTRAVENOUS VANCOMYCIN Post-Op Interval history: THIS IS A PATIENT OF DR. DUBON WHO PRESENTED TO ED YESTERDAY FOR COMPLAINT OF PAIN IN LEFT LABIA. SHE HAD BEEN TO OTHER ED DAY PRIOR WHO PERFORMED I AND D BUT NO DRAINAGE OBTAINED. PATIENT HAD BEEN ON CLINDAMYCIN. HER WBC NOT ELEVATED, SHE IS NOT FEBRILE, SHE IS IN MONOGAMOUS RELATIONSHIP. THIS IS NOT A BARTHOLIN CYST. BECAUSE OF HER PAIN AND THE FACT THAT SHE IS AN INSULIN DEPENDENT DIABETIC AND OBESE, SHE WAS ADMITTED, (OBSERVATION) FOR PAIN MANAGEMENT AND INTRAVENOUS VANCOMYCIN Exam Constitutional Vital Signs, click to edit/add: Last Vital Signs Temp 97.5 F L 10/06/23 08:00 Pulse 80 10/06/23 08:00 Resp 18 10/06/23 08:00 BP 131/72 10/06/23 08:00 Pulse Ox 93 L 10/06/23 09:35 O2 Del Method Room Air 10/06/23 09:35 O2 Flow Rate 2 10/06/23 04:42 LNA - A/P Assessment and Plan (1) Mass: (2) Cellulitis: Onset Date: ~09/2023 Qualifiers: Site of cellulitis of trunk: perineum (3) Sad: Assessment and Plan: there hs been a delay in transfer to [facility] to [facility] because of no bed availability until discharges expedited. the call just came from [place] that a bed has opened for her. the patient was pleased to hear this. I also reiterated theat the reason the problem could not be handled here is because of her serious medical history which necessitates her being cared for in a [facility] hospital that cand handle any unforseen complication due to her cardiac status and diabetic status. She stated iunderstanding and agreement. the nursses are now getting ready for her to drive her to [facility] to be admitted to the room assigned to here. She will follow up with Dr. Villa after discharge. In the interim, I will be informing Dr. Villa of all that has transpired during this admission. Fall Risk Details Mead fall scale risk level: Low Fall Risk Current medications: Current Medications Alprazolam (Alprazolam 1 Mg Tablet) 1 mg PO Q8H [facility] Last Admin: 10/06/23 08:40 Dose: Not Given Aspirin (Aspirin 81 Mg Tablet.) 81 mg PO QD [facility] Last Admin: 10/06/23 08:40 Dose: 81 mg Atorvastatin Calcium (Atorvastatin Calcium 40 Mg Tablet) 80 mg PO QHS [facility] Last Admin: 10/05/23 21:26 Dose: 80 mg Clopidogrel Bisulfate (Clopidogrel Bisulfate 75 Mg Tablet) 75 mg PO QD [facility] Last Admin: 10/06/23 08:40 Dose: 75 mg Ezetimibe (Ezetimibe 10 Mg Tablet) 10 mg PO QHS [facility] Last Admin: 10/05/23 21:26 Dose: 10 mg Gabapentin (Gabapentin 400 Mg Capsule) 800 mg PO TID [facility] Last Admin: 10/06/23 05:37 Dose: 800 mg Hydromorphone HCl (Hydromorphone Hcl 1 Mg/Ml Cartridge) 1 mg IVP Q3H PRN PRN Reason: Pain Scale 7-10 Last Admin: 10/06/23 11:31 Dose: 1 mg Hydroxyzine Pamoate (Hydroxyzine Pamoate 25 Mg Capsule) 25 mg PO BID PRN PRN Reason: Anxiety Last Admin: 10/06/23 07:34 Dose: 25 mg Promethazine HCl 25 mg/ Sodium (Chloride) 51 mls @ 204 mls/hr IV Q12H PRN PRN Reason: Nausea And Vomiting Last Infusion: 10/04/23 01:36 Dose: Infused Vancomycin HCl 1,000 mg/ (Sodium Chloride) 250 mls @ 250 mls/hr IV Q12H [facility] Last Admin: 10/06/23 11:31 Dose: 250 mls/hr Insulin Aspart (Insulin Aspart 300 Unit/3 Ml Pen) 3 - 15 unit SUBQ [facility]; Protocol Last Admin: 10/06/23 11:32 Dose: Not Given Losartan Potassium (Losartan Potassium 25 Mg Tablet) 25 mg PO QD [facility] Last Admin: 10/06/23 08:40 Dose: 25 mg Metformin HCl (Metformin Hcl 500 Mg Tablet) 1,000 mg PO BIDWM [facility] Last Admin: 10/06/23 07:34 Dose: 1,000 mg Metoprolol Succinate (Metoprolol Succinate 25 Mg Tab.Er.24h) 25 mg PO BID [facility] Last Admin: 10/06/23 08:40 Dose: 25 mg Non-Formulary Medication (Mounjaro) 12.5 mg SUBQ QWEEK [facility] Non-Form Jardiance (25 Mg) 1 each PO QD [facility] Last Admin: 10/06/23 08:40 Dose: Not Given Omeprazole (Omeprazole 20 Mg Capsule.Dr) 20 mg PO QD PRN PRN Reason: stomach Last Admin: 10/04/23 17:29 Dose: 20 mg Time Spent With Patient Time: Total time spent is greater than 50% in coordination of care (as documented) at patient's floor/unit and/or counseling patient: Time with patient: 25 - 35 minutes
--- NOTE | 2023-10-06 12:49 | P.GYNPN_ITS ---
DISH CARRIER - PN: Subj Non-OR Interval history: THIS IS A PATIENT OF DR. DUBON WHO PRESENTED TO ED YESTERDAY FOR COMPLAINT OF PAIN IN LEFT LABIA. SHE HAD BEEN TO OTHER ED DAY PRIOR WHO PERFORMED I AND D BUT NO DRAINAGE OBTAINED. PATIENT HAD BEEN ON CLINDAMYCIN. HER WBC NOT ELEVATED, SHE IS NOT FEBRILE, SHE IS IN MONOGAMOUS RELATIONSHIP. THIS IS NOT A BARTHOLIN CYST. BECAUSE OF HER PAIN AND THE FACT THAT SHE IS AN INSULIN DEPENDENT DIABETIC AND OBESE, SHE WAS ADMITTED, (OBSERVATION) FOR PAIN MANAGEMENT AND INTRAVENOUS VANCOMYCIN Post-Op Interval history: THIS IS A PATIENT OF DR. DUBON WHO PRESENTED TO ED YESTERDAY FOR COMPLAINT OF PAIN IN LEFT LABIA. SHE HAD BEEN TO OTHER ED DAY PRIOR WHO PERFORMED I AND D BUT NO DRAINAGE OBTAINED. PATIENT HAD BEEN ON CLINDAMYCIN. HER WBC NOT ELEVATED, SHE IS NOT FEBRILE, SHE IS IN MONOGAMOUS RELATIONSHIP. THIS IS NOT A BARTHOLIN CYST. BECAUSE OF HER PAIN AND THE FACT THAT SHE IS AN INSULIN DEPENDENT DIABETIC AND OBESE, SHE WAS ADMITTED, (OBSERVATION) FOR PAIN MANAGEMENT AND INTRAVENOUS VANCOMYCIN Exam Constitutional Vital Signs, click to edit/add: Last Vital Signs Temp 97.5 F L 10/06/23 08:00 Pulse 80 10/06/23 08:00 Resp 18 10/06/23 08:00 BP 131/72 10/06/23 08:00 Pulse Ox 93 L 10/06/23 09:35 O2 Del Method Room Air 10/06/23 09:35 O2 Flow Rate 2 10/06/23 04:42 DISH CARRIER - A/P Assessment and Plan (1) Mass: (2) Cellulitis: Onset Date: ~09/2023 Qualifiers: Site of cellulitis of trunk: perineum Fall Risk Details Mead fall scale risk level: Low Fall Risk Current medications: Current Medications Alprazolam (Alprazolam 1 Mg Tablet) 1 mg PO Q8H [facility] Last Admin: 10/06/23 08:40 Dose: Not Given Aspirin (Aspirin 81 Mg Tablet.) 81 mg PO QD [facility] Last Admin: 10/06/23 08:40 Dose: 81 mg Atorvastatin Calcium (Atorvastatin Calcium 40 Mg Tablet) 80 mg PO QHS [facility] Last Admin: 10/05/23 21:26 Dose: 80 mg Clopidogrel Bisulfate (Clopidogrel Bisulfate 75 Mg Tablet) 75 mg PO QD [facility] Last Admin: 10/06/23 08:40 Dose: 75 mg Ezetimibe (Ezetimibe 10 Mg Tablet) 10 mg PO QHS [facility] Last Admin: 10/05/23 21:26 Dose: 10 mg Gabapentin (Gabapentin 400 Mg Capsule) 800 mg PO TID [facility] Last Admin: 10/06/23 05:37 Dose: 800 mg Hydromorphone HCl (Hydromorphone Hcl 1 Mg/Ml Cartridge) 1 mg IVP Q3H PRN PRN Reason: Pain Scale 7-10 Last Admin: 10/06/23 11:31 Dose: 1 mg Hydroxyzine Pamoate (Hydroxyzine Pamoate 25 Mg Capsule) 25 mg PO BID PRN PRN Reason: Anxiety Last Admin: 10/06/23 07:34 Dose: 25 mg Promethazine HCl 25 mg/ Sodium (Chloride) 51 mls @ 204 mls/hr IV Q12H PRN PRN Reason: Nausea And Vomiting Last Infusion: 10/04/23 01:36 Dose: Infused Vancomycin HCl 1,000 mg/ (Sodium Chloride) 250 mls @ 250 mls/hr IV Q12H [facility] Last Admin: 10/06/23 11:31 Dose: 250 mls/hr Insulin Aspart (Insulin Aspart 300 Unit/3 Ml Pen) 3 - 15 unit SUBQ ACHS [facility]; Protocol Last Admin: 10/06/23 11:32 Dose: Not Given Losartan Potassium (Losartan Potassium 25 Mg Tablet) 25 mg PO QD [facility] Last Admin: 10/06/23 08:40 Dose: 25 mg Metformin HCl (Metformin Hcl 500 Mg Tablet) 1,000 mg PO BIDWM [facility] Last Admin: 10/06/23 07:34 Dose: 1,000 mg Metoprolol Succinate (Metoprolol Succinate 25 Mg Tab.Er.24h) 25 mg PO BID [facility] Last Admin: 10/06/23 08:40 Dose: 25 mg Non-Formulary Medication (Mounjaro) 12.5 mg SUBQ QWEEK [facility] Non-Form Jardiance (25 Mg) 1 each PO QD [facility] Last Admin: 10/06/23 08:40 Dose: Not Given Omeprazole (Omeprazole 20 Mg Capsule.Dr) 20 mg PO QD PRN PRN Reason: stomach Last Admin: 10/04/23 17:29 Dose: 20 mg Time Spent With Patient Time: Total time spent is greater than 50% in coordination of care (as documented) at patient's floor/unit and/or counseling patient: Time with patient: less than 15 minutes
[2023-10-06] MEDS: HYDROMORPHONE HCL 2 MG TABLET PO (13:32)
[2023-10-06 14:42] VITALS: BP 117/76; PULSE 102; TEMP 36.3; O2SAT 95
--- NOTE | 2023-10-06 16:07 | NUTR.NU ---
Pt admitted to [facility] 10/03/23 w/dx mass/cellulitis to left perineum and UTI. Pt c/o pain which is inhibiting appetite; PO intakes of 2000 CCD diet are 50% even when family brings in food she requests. Lyssa has generalized edema and abnormal labs indicate impaired renal function; encourage fluids. She is awaiting transfer to [facility]. Will follow PRN.
== END 2023-10-06 16:10 | disposition short-term general hospital (02) ==
LOC: ER 22:29 → MS 10-04 13:12
PROVIDERS: Emergency Medicine; Admitting Provider Obstetrics & Gynecology; Emergency Provider Emergency Medicine; PCP Nurse Practitioner; Visit Provider Obstetrics & Gynecology
DX: N90.89 Other specified noninflammatory disorders of vulva and perineum (principal); L03.315 Cellulitis of perineum; E11.9 Type 2 diabetes mellitus without complications; E66.9 Obesity, unspecified; Z68.41 Body mass index [BMI] 40.0-44.9, adult; Z79.4 Long term (current) use of insulin; Z87.891 Personal history of nicotine dependence
CPT/HCPCS: 36415; 72193; 80053; 80202; 82948; 83605; 84702; 85025; 87040; 94761; 96365; 96366; 96367; 96375; 96376; 99285; G0378; J1170; J2250; J2270; J3370; Q0177; Q9967

== ENCOUNTER 2023-10-07 01:32 | Emergency (ER) | payer OTHER, SELFPAY ==
[2023-10-07 01:36] VITALS: BP 130/69; PULSE 90; TEMP 36.6; O2SAT 100; BMI 41.6
--- OUTSIDE RECORDS SUMMARY | 2023-10-07 01:42 | XMS_ITS | CCD ---
Author Organization [facility] Care Team Providers Care Sales Correspondence Clerk Name Role Phone YANET JUNIOR Primary Care Physician [phone] Aleah Norton Unavailable Unavailable AICHHOLZ, LEASE ANALYST YANET Primary Care Unavailable GERMAINE DOW Admitting Unavailable GERMAINE DOW Attending Unavailable GERMAINE DOW Consulting Unavailable JULIO KOWALSKI Admitting Unavailable JULIO KOWALSKI Attending Unavailable AICHHOLZ, LEASE ANALYST YANET Primary Care Unavailable JONO, DR ERUM Raya Consulting Unavailable JULIO KOWALSKI Consulting Unavailable AICHHOLZ, LEASE ANALYST YANET Admitting Unavailable AICHHOLZ, LEASE ANALYST YANET Attending Unavailable AICHHOLZ, LEASE ANALYST YANET Primary Care Unavailable AICHHOLZ, LEASE ANALYST YANET Consulting Unavailable Tate Martinez MD Primary Care Provider [phone] Gunnar Rangel Attending Unavailable Kevin Nur Attending [...] Attending Unavailable Juan Arnold Attending Unavailable YANET JUNIOR Attending Unavailable YANET JUNIOR Admitting Unavailable Kevin Nur Attending Unavailable Kevin Nur Attending Unavailable Juan Arnold Attending Unavailable Kevin Nur Attending Unavailable Allergies Allergy Classification Reported Allergen(s) Allergy Type Date of Onset Reaction(s) Facility (3 sources) Acetaminophen / HYDROcodone; Translations: [acetaminophen-hyd rocodone] Drug Allergy Vomitus (substance) [facility] Medications Current Medications Medication Drug Class(es) Dates Sig (Normalized) Sig (Original) acetaminophen 325 mg / HYDROcodone bitartrate 5 mg oral tablet (2 sources) Opioid Agonist Start: 12-30-2020 [place] 325 mg-5 mg oral tablet 1 tab(s), [...] for 3 day(s), 12 tab(s), Refill(s) 0, [facility]/pharmacy #[id number], 160, cm, 10/25/22 9:40:00 EDT, [...] Refill(s) 0 Start Date: 12/28/20 Status: Ordered [id number] 200 actuat albuterol 0.09 mg/actuat metered dose [...] Daily, # 30 tab(s), Refills(s) 0, Pharmacy: [facility] [id number] Start Date: 09/15/18 Status: Ordered bacitracin zinc [...] day(s), # 15 cap(s), Refills(s) 0, Pharmacy: [facility]/pharmacy #[id number], 160, cm, 07/29/23 21:34:00 EDT, Height/Length Dosing, 119, kg, 07/29/23 21:34:00 EDT, Weight Dosing Start Date: 07/30/23 Stop Date: 08/04/23 Status: Ordered clindamycin 300 mg oral capsule (2 sources) Lincosamide Antibacterial Start: 10-02-2023 End: 10-09-2023 take 1 capsule by mouth every six hours clindamycin 300 mg oral cap 300 mg = 1 cap(s), Oral, q6hr, X 7 day(s), # 28 cap(s), Refills(s) 0, Pharmacy: [facility]/pharmacy #[id number], 160, cm, 10/02/23 12:44:00 EDT, [...] for 7 day(s), 3.5 gm, Refill(s) 0, [facility]/pharmacy #[id number], 165, cm, 06/07/21 20:41:00 EDT, [...] Start: 12-19-2018 take 1 capsule by mo [facility] three times daily gabapentin 300 mg Cap 300 mg = 1 cap(s), Oral, TID Start Date: 12/19/18 Status: Ordered ibuprofen 600 mg oral tablet (3 sources) Nonsteroidal Anti-inflammatory Drug Start: 05-28-2023 End: 06-04-2023 take 1 tablet by mouth every eight hours ibuprofen 600 mg Tab 600 mg = 1 tab(s), Oral, q8hr, X 7 day(s), # 21 tab(s), Refills(s) 0, Pharmacy: [facility]/pharmacy #[id number], 160, cm, 05/28/23 13:08:00 EDT, Height/Length Dosing, 115, kg, 05/28/23 13:08:00 EDT, Weight Dosing Start Date: 05/28/23 Stop Date: 06/04/23 Status: Ordered Start: 12-30-2020 [facility] ibuprofen 600 mg Tab 600 mg = 1 tab(s), Oral, q6hr, # 40 tab(s), Refills(s) 0, Pharmacy: [facility]/pharmacy #[id number], 162, cm, 12/30/20 16:50:00 EDT, [...] mononitrate 30 mg extended release oral tablet (18 sources) Nitrate Vasodilator Start: 2 take 1 tablet by mouth once daily in the morning isosorbide mononitrate 30 mg ER Tab 30 mg = 1 tab(s), Oral, qAM, # 60 tab(s), Refills(s) 0, Pharmacy: [facility]/pharmacy #[id number], 163, cm, 10/09/21 14:18:00 EDT, [...] 03/30/2023 Active naproxen 500 mg oral tablet (20 sources) Nonsteroidal Anti-inflammatory Drug Start: 12-27-2021 End: 10-13-2023 take 1 tablet by mouth twice daily naproxen 500 mg Tab 500 mg = 1 tab(s), Oral, BID, X 10 day(s), # 20 tab(s), Refills(s) 0, Pharmacy: [facility]/pharmacy #[id number], 160, cm, 10/02/23 21:46:00 EDT, Height/Length Dosing, 106.2, kg, 10/02/23 21:46:00 EDT, Weight Dosing Start Date: 10/03/23 Stop Date: 10/13/23 Status: Ordered Start: 12-28-2020 take 1 tablet by addi th twice daily as needed for pain naproxen 500 mg Tab 500 mg = 1 tab(s), Oral, BID, PRN for pain, # 20 tab(s), Refills(s) 0, [id number] 162, cm, 12/28/20 0:14:00 EDT, Height/Length Dosing, 132.4, kg, 12/28/20 0:14:00 EDT, Weight Dosing Start Date: 12/28/20 Status: Ordered nitroglycerin 0.004 mg/mg rectal ointment (20 sources) Nitrate Vasodilator Start: 02-21-2021 apply 30 g rectal route every twelve hours nitroglycerin 0.4% rectal ointment See Instructions, 30 gm, Refill(s) 0, Rectal q12hr, [facility]/pharmacy #[id number], 162, cm, 02/21/21 12:40:00 EST, Height/Length Dosing, 128.3, kg, 02/21/21 12:40:00 EST, Weight Dosing Start Date: 02/21/21 Status: Ordered Start: 02-21-2021 apply 30 g rectal ro moapa every twelve hours nitroglycerin 0.4% rectal ointment See Instructions, 30 gm, Refill(s) 0, Rectal q12hr, [facility]/pharmacy #[id number], 162, cm, 02/21/21 12:40:00 EST, [...] q6hr, # 12 tab(s), Refills(s) 0, Pharmacy: [facility]/pharmacy #[id number], 160, cm, 10/02/23 21:46:00 EDT, Height/Length Dosing, 106.2, kg, 10/02/23 21:46:00 EDT, Weight Dosing Start Date: 10/03/23 Status: Ordered Start: 11-25-2020 take 1 tablet by addi th every eight hours as needed for nausea Zofran 4 mg Tab 4 mg = 1 tab(s), Oral, q8hr, PRN Nausea/Vomiting, # 12 tab(s), Refills(s) 0, Pharmacy: [facility]/pharmacy #[id number], 162, cm, 12/27/21 2:03:00 EDT, Height/Length Dosing, 118, kg, 12/27/21 2:03:00 EDT, Weight Dosing Start Date: 12/27/21 Status: Ordered oxyCODONE hydrochloride 5 mg oral capsule (2 sources) Opioid Agonist Start: 12-28-2020 oxyCODONE 5 mg Cap 5 mg = 1 cap(s), Oral, q6hr, PRN Pain 8-10, # 3 cap(s), Refills(s) 0, Pharmacy: [facility]/pharmacy #[id number], 162, cm, 12/28/20 0:14:00 EDT, Height/Length Dosing, 132.4, kg, 12/28/20 0:14:00 EDT, Weight Dosing Start Date: 12/28/20 Status: Ordered phenazopyridine hydrochloride 100 mg oral tablet (1 source) Start: 07-30-2023 End: 08-02-2023 take 1 tablet by mouth three times daily Pyridium 100 mg Tab 100 mg = 1 tab(s), Oral, TID, X 3 day(s), # 9 tab(s), Refills(s) 0, [id number], 160, cm, 07/29/23 21:34:00 EDT, [...] day(s), # 18 tab(s), Refills(s) 0, [id number], 160, cm, 09/25/23 6:39:00 EDT, Height/Length Dosing, 105.7, kg, 09/25/23 6:39:00 EDT, Weight Dosing Start Date: 09/25/23 Stop Date: 09/28/23 Status: Ordered 12 hr ranolazine 500 mg extended release oral tablet (18 sources) Anti-anginal Start: 10-10-2021 take 1 tablet by mouth twice daily Ranexa 500 mg Tab-ER 500 mg = 1 tab(s), Oral, BID, # 60 tab(s), Refills(s) 1, [id number], 163, cm, 10/09/21 14:18:00 EDT, Height/Length Dosing, 118, kg, 10/09/21 14:18:00 EDT, Weight Dosing Start Date: 10/10/21 Status: Ordered Ozempic (18 sources) Start: 10-09-2021 Ozempic Refill(s) 0 Start Date: 10/09/21 Status: Ordered tamsulosin hydrochloride 0.4 mg oral capsule (17 sources) alpha-Adrenergic Lawson Start: 10-25-2022 take 1 capsule by mouth once daily Flomax 0.4 mg Cap 0.4 mg = 1 cap(s), Oral, Daily, # 10 cap(s), Refills(s) 0, Pharmacy: [facility]/pharmacy #[id number], 160, cm, 05/28/23 13:08:00 EDT, [...] Active Start: 03-02-2023 take 1 tablet by [facility] once daily at mealtime venlafaxine (Effexor) 50 MG tablet TAKE 1 TABLET BY MOUTH EVERY DAY IN THE EVENING WITH FOOD 0 03/02/2023 Active Start: 01-02-2021 Effexor XR 150 mg Cap-ER 150 mg = 1 cap(s), Oral, Daily, along with 75 mg cap, Refills(s) 0 Start Date: 01/02/21 Status: Ordered Start: 01-02-2021 take 1 capsule by [facility] once daily Effexor XR 75 mg Cap-ER 75 mg = 1 cap(s), Oral, Daily, Refills(s) 0 Start Date: 01/02/21 Status: Ordered Start: 01-02-2021 Effexor XR 150 mg Cap-ER 150 mg = 1 cap(s), Oral, Daily, along with 75 mg cap, Refills(s) 0 Start Date: 01/02/21 Status: Ordered Start: 01-02-2021 take 1 capsule by mo [facility] once daily Effexor XR 75 mg Cap-ER 75 mg = 1 cap(s), Oral, Daily, Refills(s) 0 Start Date: 01/02/21 Status: Ordered Zofran ODT 4 mg Tab-Dis (16 sources) Start: 07-30-2023 take 1 tablet by mouth every eight hours Zofran ODT 4 mg Tab-Dis 4 mg = 1 tab(s), Oral, q8hr, # 12 tab(s), Refills(s) 0, [id number], 160, cm, 07/29/23 21:34:00 EDT, Height/Length Dosing, 119, kg, 07/29/23 21:34:00 EDT, Weight Dosing Start Date: 07/30/23 Status: Ordered Start: 10-25-2022 take 1 tablet by addi th every eight hours as needed for nausea Zofran ODT 4 mg Tab-Dis 4 mg = 1 tab(s), Oral, q8hr, PRN Nausea/Vomiting, # 12 tab(s), Refills(s) 0, [id number], 160, cm, 10/25/22 9:40:00 EDT, Height/Length Dosing, 115, kg, 10/25/22 9:40:00 EDT, Weight Dosing Start Date: 10/25/22 Status: Ordered Completed/Discontinued Medications Medication Drug Class(es) Dates Sig (Normalized) Sig (Original) albuterol HFA 90 mcg/inh MDI (20 sources) Start: 11-25-2020 take 1 dose by inhalation four times daily albuterol HFA 90 mcg/inh MDI 2 puff(s), Inhalation, QID for wheezing, 1 EA, Refill(s) 0, [facility]/pharmacy #[id number], 163, cm, 11/25/20 12:15:00 EDT, [...] pain] Onset: 12-27-2021 Episodic Acute myocardial infarction (20 sources) Myocardial infarction 09-13-2018 Chronic Anxiety disorders [...] unspecified, without bleeding] Onset: 09-25-2023 Episodic Hemorrhoids (20 sources) Hemorrhoids 01-02-2021 Episodic Inflammation; infection of eye (except that caused by tuberculosis or sexually transmitteddisease) (1 source) Blepharitis; Translations: [Unspecified blepharitis left upper eyelid] Onset: 06-07-2021 Episodic Inflammatory diseases of female pelvic organs (1 source) Abscess of Bartholin's gland; Translations: [Abscess of Bartholin's gland] Onset: 10-03-2023 Episodic Mood disorders (20 sources) Depressive disorder; Translations: [Recurrent major depressive episodes, moderate ] Onset: 04-20-2023 01-02-2021 Chronic Nonspecific chest pain (4 sources) Chest pain; Translations: [Chest pain, unspecified] Onset: 10-09-2021 Episodic Other connective tissue disease (4 sources) Pain in left foot; Translations: [PAIN IN LEFT FOOT] Onset: 08-21-2021 Episodic Other endocrine disorders (20 sources) Polycystic ovaries 03-22-2018 Chronic Other endocrine disorders (20 sources) Polycystic ovary syndrome; Translations: [Polycystic ovarian syndrome] Onset: 04-20-2023 01-02-2021 Chronic Other female genital disorders (20 sources) Abnormal uterine bleeding 01-02-2021 Chronic Other liver diseases (20 sources) Steatosis of liver 01-02-2021 Chronic Other [...] breast] Onset: 04-20-2023 04-20-2023 Episodic Ovarian cyst (20 sources) Cyst of ovary 01-02-2021 Episodic Residual codes; unclassified (20 sources) Obstructive sleep apnea syndrome; Translations: [Obstructive sleep apnea (adult) (pediatric)] Onset: 10-09-2021 04-02-2020 Chronic Residual codes; unclassified (1 source) Dependence on enabling machine or device; Translations: [Dependence on other enabling machines and devices] Onset: 10-09-2021 Chronic Residual codes; unclassified (20 sources) Insomnia 01-02-2021 Episodic Residual codes; unclassified [...] Onset: 12-18-2020 Episodic Benign neoplasm of uterus (20 sources) Uterine leiomyoma Resolved: 08-20-2018 12-19-2018 Episodic Calculus of urinary tract (20 sources) Kidney stone; Translations: [Calculus of kidney] Onset: 10-25-2022 Resolved: 01-31-2011 12-19-2018 Episodic Other aftercare (1 source) [facility] (current) use of insulin; Translations: [[facility]I CURRENT USE OF INSULIN] Onset: 12-18-2020 Episodic Other aftercare (1 source) Other terminal superintendent (current) drug therapy; Translations: [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 THERAPY] Onset: 12-18-2020 Episodic Other skin disorders (3 sources) Rash and other nonspecific skin eruption; Translations: [RASH OTH NONSPECIFIC SKIN ERUPTION] Onset: 12-16-2020 Episodic Residual codes; unclassified (20 sources) Harmful pattern of use of nicotine Resolved: 09-12-2018 12-19-2018 Episodic Screening and history of mental health and substance abuse codes (1 source) Personal history of nicotine dependence; Translations: [PERSONAL HISTORY OF NICOTINE DEPEND] Onset: 12-18-2020 Episodic Unclassified (1 source) Exposure to 2019 novel coronavirus; Translations: [Contact with and (suspected) exposure to COVID19] Results Test Name Value Interpretation Reference Range Facility ED Clinical Summaryon 2023 ED Clinical Summary ED Clinical Summary [place] [id number] ED Clinical Summary Person Information Name: TISH VARGAS [facility] Age: 42 Years : 1980 Sex: Female Language: Prydeinig PCP: YANET JUNIOR CNP Marital Status: Phone: [phone] Visit Id: Visit Reason: Skin problem; ABCESS IN PRIVATE AREA Speciality: Acuity: 3 Enc Type: Emergency Med Service: Emergency Arrival: 10/02/2023 21:35:04 Discharge: 10/03/2023 00:40:19 LOS: 000 03:05 Checkin: 10/02/2023 21:35:04 Checkout: 10/03/2023 00:40:19 Dispo Type: Home (Routine DC) EVENTS: Event Name Event Status Request Date/Time Start Date/Time Complete Date/Time Arrive Complete 10/02/2023 21:35:04 10/02/2023 21:35:04 10/02/2023 21:35:04 Document Home Meds Request 10/02/2023 21:35:04 Triage Complete 10/02/2023 21:35:04 10/02/2023 21:46:22 10/02/2023 21:46:22 Bed Assign Complete 10/02/2023 21:37:51 10/02/2023 21:37:51 10/02/2023 21:37:51 Dr Exam Complete 10/02/2023 21:37:51 10/02/2023 21:59:08 10/02/2023 21:59:08 RN Exam Complete 10/02/2023 21:37:51 10/02/2023 21:50:25 10/02/2023 21:50:25 Registration Complete 10/02/2023 21:40:17 10/02/2023 21:40:17 10/02/2023 21:40:17 Reg Complete Request 10/02/2023 21:40:17 Reg Bed Request Complete 10/02/2023 21:40:17 10/02/2023 21:40:17 10/02/2023 21:40:17 Isolation Screening Request 10/02/2023 21:46:22 Registration Request 10/02/2023 21:59:08 Dr Exam Complete 10/02/2023 21:59:23 10/02/2023 21:59:23 10/02/2023 21:59:23 Meds Admin Complete 10/02/2023 22:16:44 10/02/2023 22:22:19 Meds Admin Complete 10/03/2023 00:30:30 10/03/2023 00:39:10 Discharge Complete 10/03/2023 00:31:46 10/03/2023 00:40:25 10/03/2023 00:40:25 Transfer Complete 10/03/2023 00:40:25 10/03/2023 00:40:25 10/03/2023 00:40:25 AD[address]: [address] [facility] [phone] PHYS DOC NOTES: MEDICAL INFORMATION: Prescriptions Given: Medications to Continue Taking That Have Changed [facility]/pharmacy #[id number], [address] [place] [phone], [phone] START: naproxen (naproxen 500 mg Tab) 1 Tablets By Mouth 2 times a day for 10 Days. Refills: 0. START: ondansetron (ondansetron 4 mg Dis Tab) 1 Tablets By Mouth every 6 hours. Refills: 0. Other Medications START: naproxen (Naprosyn 500 mg Tab) 1 Tablets By Mouth 2 times a day as needed for pain. Refills: 0. START: ondansetron (Zofran 4 mg Tab) 1 Tablets By Mouth every 8 hours as needed Nausea/Vomiting. Refills: 0. START: ondansetron (Zofran 4 mg Tab) 1 Tablets By Mouth every 8 hours as needed Nausea/Vomiting. Refills: 0. START: ondansetron (Zofran ODT 4 mg Tab-Dis) 1 Tablets By Mouth every 8 hours. Refills: 0. START: ondansetron (Zofran ODT 4 mg Tab-Dis) 1 Tablets By Mouth every 8 hours as needed Nausea/Vomiting. Refills: 0. Medications to Continue with No Changes Other Medications acetaminophen-oxycodo ne (Percocet 325 mg-5 mg Tab) 1 Tablets By Mouth every 6 hours as needed as needed for pain. Refills: 0. acetaminophen-oxycodo ne (Percocet 5 mg-325 mg oral tablet) 1 Tablets By Mouth every 6 hours. Refills: 0. albuterol (albuterol HFA 90 mcg/inh MDI) 2 Puffs Inhalation 4 times a day as needed for wheezing. Refills: 0. alprazolam (Xanax 1 mg Tab) 1 Tablets By Mouth 2 times a day as needed for anxiety. aspirin (aspirin 81 mg Chew Tab) 1 Tablets Chewed every day. atorvastatin (atorvastatin 80 mg Tab) 1 Tablets By Mouth every day. Refills: 0. clindamycin (clindamycin 300 mg oral cap) 1 Capsules By Mouth every 6 hours for 7 Days. Refills: 0. clopidogrel (Plavix 75 mg Tab) [...] Tablets By Mouth 2 times a day. nitroglycerin (nitroglycerin 0.4% rectal ointment) Rectal q12hr. [...] Mouth every day. PATIENT EDUCATION INFORMATION: Instructions: Bartholin's Cyst Follow up: With: Address: When: [facility] [address] [place] [address], [place] [address], [place] [address] [facility] (1) In 3 days 10/06/19 (more content not included)... Normal [facility] ED Note-Physicianon 10-03-19 ED Note-Physician ED Note-Physician Basic Information Time Seen: Fito Gramajo PA-C 10/02/2023 21:59 Chief Complaint pt to ER c/o abbcess on vagina. Pt states that she was seen here this morning for the same thing. Pt states that it has gotten bigger and more painful. History of Present Illness Patient is a 42-year-old female with PMH of recurrent Bartholin abscesses that presents today for reevaluation of vaginal abscess. She states that she came to the ED today and was diagnosed with a Bartholin abscess and was discharged home with clindamycin and pain meds due to the abscess not being drainable. She states that she took 1 dose of the clindamycin as well as 1 dose of the pain meds at home but her pain is continuing to increase in severity and she feels as though the abscess has grown just in a few hours. She denies any fevers, body aches, chills. She states that the pain is so severe that it is making her slightly nauseous. Review of Systems No other aggravating or relieving factors no other associated symptoms no other prior treatments or complaints. Family: Reviewed and noncontributory Social: lives at home Review of systems negative unless otherwise specified in the HPI. Physical Exam Vitals & Measurements T: 36.7 ?C(Oral) HR: 110(Peripheral) RR: 20 BP: 99/76 SpO2: 99% HT: 160 cm WT: 106.2 kg BMI: 41.48 Vital Signs reviewed and noted. General: Alert, no acute distress, patient resting comfortably Skin: warm, intact, no pallor noted Head: Normocephalic, atraumatic Eye: Normal conjunctiva Cardiac: Normal peripheral perfusion Respiratory: No acute distress Musculoskeletal: No deformity, full ROM. Neurological: alert and oriented, normal sensory and motor observed. Psychiatric: Cooperative : There is a fluctuant abscess measuring about 3 cm on the left labia with surrounding erythema and edema as well as diffuse moderate to severe tenderness. Procedure I&D of Bartholin abscess: Left labia Bartholin abscess was identified. It was prepped and draped in sterile fashion. Using 1% lidocaine a small area was anesthetized at the most fluctuant point of the abscess. Using an 11 blade a small puncture was made to the fluctuant area. Unfortunately no fluid was able to be expressed from the abscess upon I&D. Patient tolerated the procedure well with no immediate complication. Medical Decision Making Patient is a 42-year-old female with PMH of recurrent Bartholin abscesses that presents today for evaluation of her Bartholin gland abscess. She was seen in the ED this morning and was discharged home with clindamycin and Percocet. She is having worsening pain despite these medications and feels as though the abscess is getting bigger. On exam she does have a fluctuant abscess measuring about 3 cm in the left labia with surrounding erythema and edema as well as diffuse moderate to severe tenderness. Provided the patient with her original dose of Percocet as well as Zofran here in the ED. An attempt was made to try and drain the Bartholin abscess, however, no fluid was able to be expressed from the abscess upon I&D. I discussed with the patient that she will have to continue the clindamycin as well as the pain medication. 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 Assessment/Plan Bartholin's gland abscess (N75.1: Abscess of Bartholin's gland) Orders: acetaminophen-oxycodo ne, 1 tab(s), Tab, Oral, Once, Stop date 10/02/23 22:16:00 EDT, STAT, Start date 10/02/23 22:16:00 EDT acetaminophen-oxycodo ne, 1 tab(s), Tab, Oral, Once, Stop date 10/03/23 0:28:00 EDT, STAT, Start date 10/03/23 0:28:00 EDT clindamycin, 300 mg = 2 cap(s), Cap, Oral, Once, Stop date 10/03/23 0:30:00 EDT, STAT, Start date 10/03/23 0:30:00 EDT, 10/03/23 0:30:00 EDT naproxen, 500 mg = 2 tab(s), Tab, Oral, Once, Stop date 10/03/23 0:28:00 EDT, STAT, Start date 10/03/23 0:28:00 EDT, 10/03/23 0:28:00 EDT naproxen, 500 mg = 1 tab(s), Oral, BID, X 10 day(s), # 20 tab(s), Refills(s) 0, Pharmacy: [facility]/pharmacy #[id number], 160, cm, 10/02/23 21:46:00 EDT, Height/Length Dosing, 106.2, kg, 10/02/23 21:46:00 EDT, Weight Dosing ondansetron, 4 mg = 1 tab(s), Tab-Dis, Oral, Once, Stop date 10/02/23 22:16:00 EDT, STAT, Start date 10/02/23 22:16:00 EDT, 10/02/23 22:16:00 EDT ondansetron, 4 mg = 1 tab(s), Oral, q6hr, # 12 tab(s), Refills(s) 0, Pharmacy: [facility]/pharmacy #[id number], 160, cm, 10/02/23 21:46:00 EDT, Height/Length Dosing, 106.2, kg, 10/02/23 21:46:00 EDT, Weight Dosing Medications Administered Given ondansetron 4 mg Dis Tab, 4 mg, Oral Percocet 5 mg-325 mg oral tablet, 1 tab(s), Oral Disposition Plan Patient Discharge Condition Stable Discharge Disposition Home Discharge Prescription List Prescriptions clindamycin 300 mg oral cap, 300 mg= 1 cap(s), Oral, q6hr naproxen 500 mg Tab, 500 mg= 1 tab(s), Oral, BID ondansetron 4 mg Dis Tab, 4 mg= 1 tab(s), Oral, q6hr Percocet 5 mg-325 mg oral tablet, 1 ta (more content not included)... Normal [facility] Comment on above: Result Comment: Elec tronically Signed By: Fito Gramajo PA-C\.br\Date and Time Signed: 10/03/23 00:37 EDT\.br\Electronically Co-Signed By: Kevin Nur DO\.br\Date and Time Co-Signed: 10/03/23 18:50 EDT ED Note-Physician ED Note-Physician Basic Information Time Seen: González GUZMAN, Noa Don 10/02/2023 13:06 Chief Complaint abcess to left labia area since yesterday History of Present Illness Patient is a 42 year old female with a history of HTN and abscesses who presents to the ED with a left labial abscess that began yesterday. Patient notes she has a history of abscess that have previously needed drained. She denies any known fevers. She notes pain with touching the abscess and while sitting. Patient denies changes in urination, vaginal discharge, or any other complaints at this time. Review of Systems A 10 point review of systems is negative except as noted above. Medical and Surgical History: Reviewed and noted Social history: Lives at home Family History: Reviewed. Tobacco: Former Physical Exam Vitals & Measurements T: 36.7 ?C(Oral) HR: 97(Peripheral) RR: 18 BP: 109/79 SpO2: 96% HT: 160 cm WT: 105.3 kg BMI: 41.13 General: The patient appears well and in no apparent distress. Patient is resting comfortably on cart. Skin: Warm, dry, no pallor noted. Mild erythema and tenderness to the left labia with a 2 cm area of induration Head: Normocephalic, atraumatic Eye: PERRLA, EOMI ENT: Moist mucus membranes [...] Psychiatric: Cooperative and appropriate Medical Decision Making Patient is a 42 year old female with a history of HTN and abscesses who presents to the ED with a left labial abscess that began yesterday. Patient is afebrile. Physical exam shows mild erythema and tenderness to the left labia with a 2 cm area of induration. Patient is being prescribed clindamycin and Percocet. She was educated on doing warm water soaks. I discussed with the patient that while the abscess is not able to be drained at this time, it may need drained in the coming days. Patient will follow-up with her primary care provider for further management of care. She advised to return to the ED with any worsening symptoms. Patient is agreeable with the plan and all questions were answered. Assessment/Plan Abscess (L02.91: Cutaneous abscess, unspecified) Orders: acetaminophen-oxycodo ne, 1 tab(s), Oral, q6hr, 7 tab(s), Refill(s) 0, [facility]/pharmacy #[id number], 160, cm, 10/02/23 12:44:00 EDT, Height/Length Dosing, 105.3, kg, 10/02/23 12:44:00 EDT, Weight Dosing clindamycin, 300 mg = 1 cap(s), Oral, q6hr, X 7 day(s), # 28 cap(s), Refills(s) 0, Pharmacy: [facility]/pharmacy #[id number], 160, cm, 10/02/23 12:44:00 EDT, Height/Length Dosing, 105.3, kg, 10/02/23 12:44:00 EDT, Weight Dosing Disposition Plan Patient Discharge Condition stable Discharge Disposition home Discharge Prescription List Prescriptions clindamycin 300 mg oral cap, 300 mg= 1 cap(s), Oral, q6hr Percocet 5 mg-325 mg oral tablet, 1 tab(s), Oral, q6hr Follow-up With When Contact Information Hieu Parish In 3 days 10/05/2023 EDT [address], [address] [place] [address]- Business (1) Additional Instructions: Call to schedule a follow up appointment with an STATE APPELLATE CLERK for further management of care. Take the antibiotic in entirerty. YANET JUNIOR In 3 days [address] [place] [address] [phone] Business (1) Additional Instructions: Patient Education Bartholin's Cyst, Qxlg-sh-Eytc Attestation Patient seen and evaluated by the physician anesthesia assistant. Attending physician was present in the emergency department and supervised care. This visit was performed by both the physician and an APC. I performed all aspects of the MDM as documented. This report was transcribed using voice recognition software. Every effort was made to ensure accuracy, however, inadvertently computerized internal carver mistakes may be present. Appropriate healthcare PPE was used in evaluating this patient. The patient was placed in a mask. The healthcare provider was wearing mask, gloves, and utilizing proper hand hygiene. All equipment was properly cleansed. I performed a substantive part of the MDM during the patient?s E/M visit. I personally made or approved the documented management plan and acknowledge its risk of complications. (Independent Interpretation) My (EKG/X-Ray/US/CT as applicable) interpretation as above. (Discussion) Management/test interpretation discussed with APC. Problem List/Past Medical History Ongoing Abnormal uterine bleeding Anxiety Coronary artery disease Depression Diabetes Diabetic neuropathy Fatty liver GERD (gastroesophageal reflux disease) Hemorrhoids History of [place] (myocardial infarction) HTN (hypertension) Hyperlipidemia Hypertension Insomnia (more content not included)... Normal [facility] Comment on above: Result Comment: Elec tronically Signed By: González GUZMAN, Noa Don\.br\Date and Time Signed: 10/02/23 18:12 EDT\.br\Electronically Co-Signed By: Juan Arnold DO.br\Date and Time Co-Signed: 10/03/23 06:57 EDT ED Patient Summaryon 024 ED Patient Summary ED Patient Summary [address] [address] Patient Discharge Instructions Person Information Name: TISH VARGAS Age: 42 Years Arrival Date: 10/02/2023 21:35:04 Discharge Diagnosis: Bartholin's gland abscess Primary Care Physician: YANET JUNIOR CNP Provider Information Primary Provider: Kevin Nur DO [employer] Maker:Fito Gramajo PA-C The exam and treatment you received in the Emergency Department were for an urgent problem and are not intended as complete care. It is important that you follow up with a doctor, nurse practitioner, or physician?s anesthesia assistant for ongoing care. If your symptoms become worse or you do not improve as expected and you are unable to reach your usual health care provider, you should return to the Emergency Department. We are available 24 hours a day. TISH VARGAS has been given the following list of patient education materials, prescriptions and follow-up instructions: Follow-up Instructions: With: Address: When: Hieu Parish [address] [place], [place] [id number] Business (1) In 3 days 10/06/2023 With: Address: When: YANET JUNIOR [address] [place], [place] [phone] Business (1) In 3 days 10/06/2023 In the event that this physician does not participate in your insurance network, please consult with your insurance company to find a nearby participating provider. Patient Education Materials: Bartholin's Cyst A MESSAGE TO ALL PATIENTS REGARDING OPIOIDS PRESCRIPTION OPIOIDS: WHAT YOU NEED TO KNOW Prescription opioids can be used to help relieve neiuxkvx-lp-avcslm pain and are often prescribed following a [...] risks of opioids abuse and overdose. ? (more content not included)... Normal [facility] ED Clinical Summaryon 2023 ED Clinical Summary ED Clinical Summary [address] [address] ED Clinical Summary Person Information Name: TISH VARGAS [place] Age: 42 Years : 1980 Sex: Female Language: Prydeinig PCP: YANET JUNIOR CNP Marital Status: Phone: [phone] Visit Id: Visit Reason: Skin problem - simple; ABCESS Speciality: Acuity: 4 Enc Type: Emergency Med Service: Emergency Arrival: 10/02/2023 12:29:16 Discharge: 10/02/2023 13:41:44 LOS: 000 01:12 Checkin: 10/02/2023 12:29:16 Checkout: 10/02/2023 13:41:44 Dispo Type: Home (Routine DC) EVENTS: Event Name Event Status Request Date/Time Start Date/Time Complete Date/Time Arrive Complete 10/02/2023 12:29:16 10/02/2023 12:29:16 10/02/2023 12:29:16 Document Home Meds Request 10/02/2023 12:29:16 Triage Complete 10/02/2023 12:29:16 10/02/2023 12:44:31 10/02/2023 12:44:31 Dr Exam Complete 10/02/2023 12:32:29 10/02/2023 12:32:29 10/02/2023 12:32:29 Registration Complete 10/02/2023 12:32:29 10/02/2023 12:33:07 10/02/2023 12:33:07 Reg Complete Request 10/02/2023 12:33:07 Reg Bed Request Complete 10/02/2023 12:33:07 10/02/2023 12:33:07 10/02/2023 12:33:07 Isolation Screening Request 10/02/2023 12:44:31 Bed Assign Complete 10/02/2023 13:00:42 10/02/2023 13:00:42 10/02/2023 13:00:42 RN Exam Complete 10/02/2023 13:00:42 10/02/2023 13:23:16 10/02/2023 13:23:16 Dr Exam Complete 10/02/2023 13:06:18 10/02/2023 13:06:18 10/02/2023 13:06:18 Registration Request 10/02/2023 13:06:18 Dr Exam Complete 10/02/2023 13:17:04 10/02/2023 13:17:04 10/02/2023 13:17:04 Discharge Complete 10/02/2023 13:34:19 10/02/2023 13:41:54 10/02/2023 13:41:54 Transfer Complete 10/02/2023 13:41:54 10/02/2023 13:41:54 10/02/2023 13:41:54 [facility] [id number] PHYS DOC NOTES: MEDICAL INFORMATION: Prescriptions Given: New Medications [facility]/pharmacy #[id number], [address] [place], [place] [phone], [phone] clindamycin (clindamycin 300 mg oral cap) 1 Capsules By Mouth every 6 hours for 7 Days. Refills: 0. Medications to Continue Taking That Have Changed [facility]/pharmacy #[id number], [address] [place], [place] [id number], [phone] START: acetaminophen-oxycodo ne (Percocet 5 mg-325 mg oral tablet) 1 Tablets By Mouth every 6 hours. Refills: 0. Other Medications START: acetaminophen-oxycodo ne (Percocet 325 mg-5 mg Tab) 1 Tablets By Mouth every 6 hours as needed as needed for pain. Refills: 0. Medications to Continue with No [...] Mouth every day. PATIENT EDUCATION INFORMATION: Instructions: Bartholin's Cyst, Csdb-tu-Ldcy Follow up: With: Address: When: Hieu BERRIOS, [facility] [address], [place] [address] [facility] (1) In 3 days 10/05/2023 Comments: Call to schedule a follow up appointment with an STATE APPELLATE CLERK for further management of care. Take the antibiotic in entirerty. With: Address: (more content not included)... Normal [facility] ED Patient Summaryon 024 ED Patient Summary ED Patient Summary [address] [address] Patient Discharge Instructions Person Information Name: TISH VARGAS Age: 42 Years Arrival Date: 10/02/2023 12:29:16 Discharge Diagnosis: Abscess Primary Care Physician: YANET JUNIOR CNP Provider Information Primary Provider: Juan Arnold DO [employer] Maker:Noa Claudio PA-C The exam and treatment you received in the Emergency Department were for an urgent problem and are not intended as complete care. It is important that you follow up with a doctor, nurse practitioner, or physician?s anesthesia assistant for ongoing care. If your symptoms become worse or you do not improve as expected and you are unable to reach your usual health care provider, you should return to the Emergency Department. We are available 24 hours a day. ALICIATISH has been given the following list of patient education materials, prescriptions and follow-up instructions: Follow-up Instructions: With: Address: When: Hieu BERRIOS, [facility] [address], [place] [address] [facility] (1) In 3 days 10/05/2023 Comments: Call to schedule a follow up appointment with an STATE APPELLATE CLERK for further management of care. Take the antibiotic in entirerty. With: Address: When: YANET JUNIOR [address] [place], [place] [phone] Business (1) In 3 days In the event that this physician does not participate in your insurance network, please consult with your insurance company to find a nearby participating provider. Patient Education Materials: Bartholin's Cyst, Ucsa-nl-Iaay A MESSAGE TO ALL PATIENTS REGARDING OPIOIDS PRESCRIPTION OPIOIDS: WHAT YOU NEED TO KNOW Prescription opioids can be used to help relieve kagoliul-vv-qmgtxd pain and are often prescribed following a [...] guidance from the Food and Drug Administration (www.fda.gov (more content not included)... Normal [facility] BMPon 09-25-2023 Anion gap [Moles/Vol] 14 mmol/L Normal 6-16 [facility] Comment on above: Performed By: #### 2 [id number] #### [facility] [address] [place] [address] Calcium [Mass/Vol] 9.9 mg/dL Normal 8.9-11.1 [facility] Comment on above: Performed By: #### 2 [id number] #### [facility] [address] [place] [address] Chloride [Moles/Vol] 104 mmol/L Normal 101-111 [facility] Comment on above: Performed By: #### 2 [id number] #### [facility] [address] [place] [address] CO2 [Moles/Vol] 24 mmol/L Normal 21-31 [facility] Comment on above: Performed By: #### 2 [id number] #### [facility] [address] [place] [address] Creatinine [Mass/Vol] 0.7 mg/dL Normal 0.5-1.3 [facility] Comment on above: Performed By: #### 2 [id number] #### [facility] [address] [place] [address] Glucose [Mass/Vol] 116 mg/dL Normal 55-199 [facility] Comment on above: Performed By: #### 2 [id number] #### [facility] [address] [place] [address] Potassium [Moles/Vol] 4.2 mmol/L Normal 3.5-5.3 [facility] Comment on above: Performed By: #### 2 [id number] #### [facility] [address] [place] [address] Sodium [Moles/Vol] 138 mmol/L Normal 135-145 [facility] Comment on above: Performed By: #### 2 [id number] #### [facility] [address] [place] [address] Urea nitrogen [Mass/Vol] 16 mg/dL Normal 5-21 [facility] Comment on above: Performed By: #### 2 [id number] #### [facility] [address] [place] [address] Urea nitrogen/Creatinine [Mass ratio] 23 No Units High 10-20 [facility] Comment on above: Performed By: #### 2 [id number] #### [facility] [address] [place] [address] CBC w/ Auto Diffon 4 Basophils/100 WBC (Bld) 0.7 % Normal 0.0-2.0 [facility] Comment on above: Performed By: #### 2 501754 #### [facility] [address] [place] [address] Basophils/Leukocytes Auto (Bld) [Pure # fraction] 0.1 E9/L Normal 0.0-0.2 [facility] Comment on above: Performed By: #### 2 093266 #### [facility] [address] [place] [address] Eosinophils (Bld) [#/Vol] 0.1 E9/L Normal 0.0-0.5 [facility] Comment on above: Performed By: #### 2 [id number] #### [facility] [address] [place] [address] Eosinophils/100 WBC (Bld) 1.1 % Normal 0.0-8.0 [facility] Comment on above: Performed By: #### 2 508653 #### [facility] [address] [place] [address] Erythrocyte distribution width (RBC) [Ratio] 14.3 % High 10.9-14.2 [facility] Comment on above: Performed By: #### 2 [id number] #### [facility] [address] [place] [address] Hematocrit (Bld) [Volume fraction] 44.5 % Normal 34.0-46.0 [facility] Comment on above: Performed By: #### 2 454147 #### [facility] [address] [place] [address] Hemoglobin (Bld) [Mass/Vol] 15.0 g/dL Normal 12.0-16.0 [facility] Comment on above: Performed By: #### 2 774846 #### [facility] [address] [place] [address] Lymphocytes (Bld) [#/Vol] 1.7 E9/L Normal 1.0-4.0 [facility] Comment on above: Performed By: #### 2 449114 #### [facility] [address] [place] [address] Lymphocytes/100 WBC (Bld) 19.9 % Normal 14.0-50.0 [facility] Comment on above: Performed By: #### 2 713164 #### [facility] [address] [place] [address] MCH (RBC) [Entitic mass] 31.2 pg Normal 27.0-34.0 [facility] Comment on above: Performed By: #### 2 [id number] #### [facility] [address] [place] [address] MCHC (RBC) [Mass/Vol] 33.7 g/dL Normal 31.4-36.0 [facility] Comment on above: Performed By: #### 2 005489 #### [facility] [address] [place] [address] MCV (RBC) [Entitic vol] 92.5 fL Normal 80.0-100.0 [facility] Comment on above: Performed By: #### 2 689329 #### [facility] [address] [place] [address] Monocytes (Bld) [#/Vol] 0.4 E9/L Normal 0.2-1.0 [facility] Comment on above: Performed By: #### 2 714061 #### [facility] [address] [place] [address] Neutrophils (Bld) [#/Vol] 6.3 E9/L Normal 2.0-7.5 [facility] Comment on above: Performed By: #### 2 797540 #### [facility] [address] [place] [address] Neutrophils/100 WBC (Bld) 73.8 % Normal 36.0-75.0 [facility] Comment on above: Performed By: #### 2 595338 #### [facility] [address] [place] [address] Platelet mean volume (Bld) [Entitic vol] 8.5 fL Normal 6.4-10.8 [facility] Comment on above: Performed By: #### 2 738211 #### [facility] [address] [place] [address] Platelets (Bld) [#/Vol] 229.0 E9/L Normal 150.0-500.0 [facility] Comment on above: Performed By: #### 2 138107 #### [facility] [address] [place] [address] RBC (Bld) [#/Vol] 4.8 E12/L Normal 4.3-5.9 [facility] Comment on above: Performed By: #### 2 333379 #### [facility] [address] [place] [address] WBC corrected for nucl RBC Auto (Bld) [#/Vol] 8.6 E9/L Normal 4.0-11.0 [facility] Comment on above: Performed By: #### 2 085651 #### [facility] [address] [place] [address] CHEMISTRYOrdered By: SYSTEM SYSTEM on 09-25-2023 Albumin [...] 2023 ED Clinical Summary ED Clinical Summary [place] [id number] ED Clinical Summary Person Information Name: TISH VARGAS [place] Age: 42 Years : 1980 Sex: Female Language: Prydeinig PCP: YANET JUNIOR CNP Marital Status: Phone: [phone] Visit Id: Visit Reason: Weakness or fatigue; [...] 09/25/2023 09:56:36 09/25/2023 09:56:36 AD[address]ESS: [address] [facility] [id number] PHYS DOC NOTES: MEDICAL INFORMATION: Prescriptions Given: New Medications [id number], [address] [place] [id number], [phone] promethazine (promethazine 25 mg Tab) 1 Tablets [...] day. P (more content not included)... Normal [facility] ED Note-Physicianon 09-25-19 ED Note-Physician ED [...] day(s), # 18 tab(s), Refills(s) 0, Pharmacy: [facility]/pharmacy #[id number], 160, cm, 09/25/23 6:39:00 EDT, [...] Kusum 50 mL [F] 50 mL + [id number] [F] 25 mg, IV Piggyback Disposition Plan Discharge Prescription List Prescriptions promethazine 25 mg Tab, 25 mg= 1 tab(s), Oral, q4hr Follow-up With When Contact Information YANET JUNIOR In 3 days [address] [place] [phone] Business (1) Additional Instructions: Problem List/Past Medical History Ongoing Abnormal uterine bleeding Anxiety Coronary artery disease Depression Diabetes Diabetic neuropathy Fatty liver GERD (gastroesophageal reflux disease) Hemorrhoids History of [place] (myocardial infarction) HTN (hypertension) Hyperlipidemia Hypertension Insomnia [...] (2018), Appendectomy (2018), Bilateral salpingo-oophorectomy , x2, Cardiac catheterization, Cardiac [...] isosorbide mononit (more content not included)... Normal [facility] Comment on above: Result Comment: Elec tronically Signed By: Gunnar Rangel DO\.br\Date and Time Signed: 09/25/23 08:59 EDT ED Patient Education Noteon 09-25-2023 ED Patient Education Note ED Patient Education Note Normal [facility] ED Patient Summaryon 024 ED Patient Summary ED Patient Summary [place] [id number] Patient Discharge Instructions Person Information Name: TISH VARGAS Age: 42 Years Arrival Date: 09/25/2023 06:33:17 Discharge Diagnosis: Gastritis Primary Care Physician: YANET JUNIOR CNP Provider Information Primary Provider: Gunnar Rangel DO Advanced Artificial Plastic Eye Maker:None The exam and treatment you received in the Emergency Department were for an urgent problem and are not intended as complete care. It is important that you follow up with a doctor, nurse practitioner, or physician?s anesthesia assistant for ongoing care. If your symptoms become worse or you do not improve as expected and you are unable to reach your usual health care provider, you should return to the Emergency Department. We are available 24 hours a day. ALICIA TISH Melendez has been given the following list of patient education materials, prescriptions and follow-up instructions: Follow-up Instructions: With: Address: When: YANET JUNIOR [address] [place], [place] [phone] Business (1) In 3 days In the event that this physician does not participate in your insurance network, please consult with your insurance company to find a nearby participating provider. Patient Education Materials: A MESSAGE TO ALL PATIENTS REGARDING OPIOIDS PRESCRIPTION OPIOIDS: WHAT YOU NEED TO KNOW Prescription opioids can be used to help relieve yojegeom-rv-aawdfk pain and are often prescribed following a [...] be struggling with addiction, tell your health day care attendant and ask for guidance or call [facility]?S National Helpline at 8-087-654-FNBZ. n Source: Department of Health and (more content not included)... Normal [facility] HEMATOLOGYOrdered By: SYSTEM SYSTEM on 09-25-2023 [...] 09-25-2023 Albumin [Mass/Vol] 4.7 g/dL Normal 3.3-5.0 [facility] Comment on above: Performed By: #### 2 [id number] #### [facility] [address] [place] [address] Albumin/Globulin (S) [Mass conc ratio] 1.6 Normal 1.1-2.2 [facility] Comment on above: Performed By: #### 2 [id number] #### [facility] [address] [place] [address] ALP [Catalytic activity/Vol] 105 Int._Unit/L High 21-98 [facility] Comment on above: Performed By: #### 2 [id number] #### [facility] [address] [place] [address] ALT No additional P-5'-P [Catalytic activity/Vol] 9 Int._Unit/L Normal 6-46 [facility] Comment on above: Performed By: #### 2 [id number] #### [facility] [address] [place] [address] AST [Catalytic activity/Vol] 18 Int._Unit/L Normal 5-43 [facility] Comment on above: Performed By: #### 2 [id number] #### [facility] [address] [place] [address] Bilirubin [Mass/Vol] 0.6 mg/dL Normal 0.0-1.1 [facility] Comment on above: Performed By: #### 2 630408 #### [facility] [address] [place] [address] Bilirubin.direct [Mass/Vol] 0.1 mg/dL Normal 0.0-0.4 [facility] Comment on above: Performed By: #### 2 [id number] #### [facility] [address] [place] [address] Bilirubin.indirect [Mass or moles/Vol] 0.5 mg/dL Normal 0.1-0.9 [facility] Comment on above: Performed By: #### 2 [id number] #### [facility] [address] [place] [address] Globulin (S) [Mass/Vol] 2.9 g/dL Normal 1.4-4.0 [facility] Comment on above: Performed By: #### 2 783260 #### [facility] [address] [place] [address] Protein [Mass/Vol] 7.6 g/dL Normal 6.0-7.8 [facility] Comment on above: Performed By: #### 2 [id number] #### [facility] [address] [place] [address] Lipase Levelon 09-25-2023 Lipase [Catalytic activity/Vol] 76 U/L High 13-58 [facility] Comment on above: Performed By: #### 2 508215 #### [facility] [address] [place] [address] MICRO OTHER TESTSOrdered By: Noa Choi on 09-25-2023 Rapid COV Int NEG Ctl [place] (09/25/23 6:45 AM) Normal [facility] Man Sero Rapid COV Int POS Ctl Pass (09/25/23 6:45 AM) Normal [facility] Man Sero SARS-CoV+SARS-CoV-2 (COVID-19) Ag IA.rapid Ql (Resp) Not Detected 2 (09/25/23 6:45 AM) Normal Not Detected [facility] Man Sero Comment on above: Interpretive Data: Sriram childs [employer] Veritor System for Rapid Detection of SARS-CoV-2 [...] COV Int NEG Ctl Pass Normal Fis her [facility] Comment on above: Performed By: #### 2 [id number] #### [facility] [address] [place] [address] Rapid COV Int POS Ctl Pass Normal Fis her [facility] Comment on above: Performed By: #### 2 [id number] #### [facility] [address] [place] [address] SARS-CoV+SARS-CoV-2 (COVID-19) Ag IA.rapid Ql (Resp) Not detected Normal Not Detected [facility] Comment on above: Result Comment: The [employer] System for Rapid Detection of SARS-CoV-2 is [...] For in vitro diagnostic use. In the [facility], only for use under an Emergency [...] or revoked sooner. Performed By: #### 2 [id number] #### [facility] [address] [place] [address] SEROLOGYOrdered By: Noa marrero on 09-25-2023 HCG.beta subunit (U) [Moles/Vol] Negative Normal [facility] Man Sero U BetaHcg Qualon 09-25-2023 HCG.beta subunit (U) [Moles/Vol] Negative Normal [facility] Comment on above: Performed By: #### 2 [id number] #### [facility] [address] [place] [address] UA with Cult Rflxon 09-25-19 24 Bilirubin Ql (U) Negative Normal Negative [facility] Comment on above: Performed By: #### 4 [id number] #### [facility] [address] [place] [address] Clarity (U) Clear Normal Clear [facility] Comment on above: Performed By: #### 4 [id number] #### [facility] [address] [place] [address] Color (U) Light-Yellow Normal Yellow [facility] Comment on above: Result Comment: Micr oscopic readings are only performed on those samples that meet specific criteria set forth by [facility]. Performed By: #### 4 [id number] #### [facility] [address] [place] [address] Glucose Ql (U) 4+ mg/dL Abnormal Negative [facility] Comment on above: Performed By: #### 4 [id number] #### [facility] [address] [place] [address] Hemoglobin Auto test strip (U) [Mass/Vol] Negative Normal Negative [facility] Comment on above: Performed By: #### 4 [id number] #### [facility] [address] [place] [address] Ketones Auto test strip Ql (U) Trace Abnormal Negative [facility] Comment on above: Performed By: #### 4 [id number] #### [facility] [address] [place] [address] Leukocyte esterase Auto test strip Ql (U) Negative Normal Negative [facility] Comment on above: Performed By: #### 4 [id number] #### [facility] [address] [place] [address] Nitrite Auto test strip Ql (U) Negative Normal Negative [facility] Comment on above: Performed By: #### 4 [id number] #### [facility] [address] [place] [address] pH (U) 5.0 [pH] Invalid Interpretation Code 5.0-9.0 [facility] Comment on above: Performed By: #### 4 [id number] #### [facility] [address] [place] [address] Protein Ql (U) Negative Normal Negative [facility] Comment on above: Performed By: #### 4 [id number] #### [facility] [address] [place] [address] Specific gravity (U) [Rel density] 1.027 Invalid Interpretation Code 1.005-1.030 [facility] Comment on above: Performed By: #### 4 [id number] #### [facility] [address] [place] [address] Urobilinogen (U) [Mass/Vol] Negative Normal Negative [facility] Comment on above: Performed By: #### 4 [id number] #### [facility] [address] [place] [address] Type of Urine collection method Clean Catch Normal [facility] Comment on above: Performed By: #### 4 [id number] #### [facility] [address] [place] [address] URINALYSISOrdered By: SYSTEM SYSTEM on 09-25-2023 Bilirubin Ql (U) Negative Normal Negativemg/ d L [facility] UA Auto SS Clarity (U) Clear (09/25/23 6:45 AM) Normal Clear [facility] UA Auto SS Color (U) Light-Yellow 1 (09/25/23 6:45 AM) Normal Yellow [facility] UA Auto SS Comment on above: Interpretive Data: M icroscopic readings are only performed on those samples that meet specific criteria set forth by [facility]. Glucose Ql (U) 4+ mg/dL [...] Desc Clean Catch (09/25/23 6:45 AM) Normal [facility] Auto SS eGFRon 09-25-2023 eGFR 111 mL/min/1.73 m2 Normal >=59 [facility] Comment on above: Order Comment: Order added by Discern Expert. Performed By: #### 1 [id number] ####[facility] [address] [place] [address] CHEMISTRYOrdered By: SYSTEM SYSTEM on 09-19-2023 Albumin [...] (Bld) [Mass fraction] 5.6 % Normal <=5.9% [facility] ChemAutoSS Albumin DL <= 20 mg/L (U) [...] 09-19-2023 Albumin [Mass/Vol] 4.4 g/dL Normal 3.3-5.0 [facility] Comment on above: Performed By: #### 2 [id number] #### [facility] [address] [place] [address] Albumin/Globulin (S) [Mass conc ratio] 1.6 Normal 1.1-2.2 [facility] Comment on above: Performed By: #### 2 [id number] #### [facility] [address] [place] [address] ALP [Catalytic activity/Vol] 102 Int._Unit/L High 21-98 [facility] Comment on above: Performed By: #### 2 [id number] #### [facility] [address] [place] [address] ALT No additional P-5'-P [Catalytic activity/Vol] 8 Int._Unit/L Normal 6-46 [facility] Comment on above: Performed By: #### 2 [id number] #### [facility] [address] [place] [address] Anion gap [Moles/Vol] 16 mmol/L Normal 6-16 [facility] Comment on above: Performed By: #### 2 [id number] #### [facility] [address] [place] [address] AST [Catalytic activity/Vol] 16 Int._Unit/L Normal 5-43 [facility] Comment on above: Performed By: #### 2 [id number] #### [facility] [address] [place] [address] Bilirubin [Mass/Vol] 0.4 mg/dL Normal 0.0-1.1 [facility] Comment on above: Performed By: #### 2 [id number] #### [facility] [address] [place] [address] Calcium [Mass/Vol] 9.6 mg/dL Normal 8.9-11.1 [facility] Comment on above: Performed By: #### 2 [id number] #### [facility] [address] [place] [address] Chloride [Moles/Vol] 107 mmol/L Normal 101-111 [facility] Comment on above: Performed By: #### 2 [id number] #### [facility] [address] [place] [address] CO2 [Moles/Vol] 22 mmol/L Normal 21-31 [facility] Comment on above: Performed By: #### 2 [id number] #### [facility] [address] [place] [address] Creatinine [Mass/Vol] 0.9 mg/dL Normal 0.5-1.3 [facility] Comment on above: Performed By: #### 2 [id number] #### [facility] [address] [place] [address] Globulin (S) [Mass/Vol] 2.7 g/dL Normal 1.4-4.0 [facility] Comment on above: Performed By: #### 2 [id number] #### [facility] [address] [place] [address] Glucose [Mass/Vol] 79 mg/dL Normal 55-199 [facility] Comment on above: Performed By: #### 2 [id number] #### [facility] [address] [place] [address] Potassium [Moles/Vol] 4.4 mmol/L Normal 3.5-5.3 [facility] Comment on above: Performed By: #### 2 [id number] #### [facility] [address] [place] [address] Protein [Mass/Vol] 7.1 g/dL Normal 6.0-7.8 [facility] Comment on above: Performed By: #### 2 [id number] #### [facility] [address] [place] [address] Sodium [Moles/Vol] 141 mmol/L Normal 135-145 [facility] Comment on above: Performed By: #### 2 [id number] #### [facility] [address] [place] [address] Urea nitrogen [Mass/Vol] 24 mg/dL High 5-21 [facility] Comment on above: Performed By: #### 2 [id number] #### [facility] [address] [place] [address] Urea nitrogen/Creatinine [Mass ratio] 27 No Units High 10-20 [facility] Comment on above: Performed By: #### 2 [id number] #### [facility] [address] [place] [address] [id number] 09-19-2023 HbA1c (Bld) [Mass fraction] 5.6 % Normal <=5.9 [facility] Comment on above: Performed By: #### 7 [id number] #### [facility] [address] [place] [address] U MA/Cr Ratioon 09-19-2023 Albumin DL <= 20 mg/L (U) [Mass/Vol] mg/dL Normal 0.0-1.9 [facility] Comment on above: Performed By: #### 1 [id number] #### [facility] [address] [place] [address] Albumin/Creatinine DL <= 20 mg/L (U) [Mass ratio] NOT CALCULATED Invalid Interpretation Code .0-30.0 [facility] Comment on above: Result Comment: 30-3 00 mg/g Cr indicates an increased risk for diabetic nephropathy. >300 mg/g Cr is consistent with clinical nephropathy. Performed By: #### 1 [id number] #### [facility] [address] [place] [address] U Creatinine 95.6 mg/dL Invalid Interpretation Code [facility] Comment on above: Performed By: #### 1 [id number] #### [facility] [address] [place] [address] URINALYSISOrdered By: SYSTEM SYSTEM on 09-19-2023 Bilirubin Ql (U) Negative Normal Negativemg/ d L [facility] UA Auto SS Clarity (U) Clear (09/19/23 10:39 AM) Normal Clear [facility] UA Auto SS Color (U) Light-Yellow 1 (09/19/23 10:39 AM) Normal Yellow [facility] UA Auto SS Comment on above: Interpretive Data: M icroscopic readings are only performed on those samples that meet specific criteria set forth by [facility]. Glucose Ql (U) 4+ mg/dL [...] [facility] UA Auto SS Urinalysis with Microon Bilirubin Ql (U) Negative Normal Negative [facility] Comment on above: Performed By: #### 4 [id number] #### [facility] [address] [place] [address] Clarity (U) Clear Normal Clear [facility] Comment on above: Performed By: #### 4 [id number] #### [facility] [address] [place] [address] Color (U) Light-Yellow Normal Yellow [facility] Comment on above: Result Comment: Micr oscopic readings are only performed on those samples that meet specific criteria set forth by [facility]. Performed By: #### 4 [id number] #### [facility] [address] [place] [address] Glucose Ql (U) 4+ mg/dL Abnormal Negative [facility] Comment on above: Performed By: #### 4 [id number] #### [facility] [address] [place] [address] Hemoglobin Auto test strip (U) [Mass/Vol] Negative Normal Negative [facility] Comment on above: Performed By: #### 4 [id number] #### [facility] [address] [place] [address] Ketones Auto test strip Ql (U) Negative Normal Negative [facility] Comment on above: Performed By: #### 4 [id number] #### [facility] [address] [place] [address] Leukocyte esterase Auto test strip Ql (U) Negative Normal Negative [facility] Comment on above: Performed By: #### 4 [id number] #### [facility] [address] [place] [address] Nitrite Auto test strip Ql (U) Negative Normal Negative [facility] Comment on above: Performed By: #### 4 [id number] #### [facility] [address] [place] [address] pH (U) 5.5 [pH] Invalid Interpretation Code 5.0-9.0 [facility] Comment on above: Performed By: #### 4 [id number] #### [facility] [address] [place] [address] Protein Ql (U) Negative Normal Negative [facility] Comment on above: Performed By: #### 4 [id number] #### [facility] [address] [place] [address] Specific gravity (U) [Rel density] 1.026 Invalid Interpretation Code 1.005-1.030 [facility] Comment on above: Performed By: #### 4 [id number] #### [facility] [address] [place] [address] Urobilinogen (U) [Mass/Vol] Negative Normal Negative [facility] Comment on above: Performed By: #### 4 [id number] #### [facility] [address] [place] [address] Type of Urine collection method Clean Catch Normal [facility] Comment on above: Performed By: #### 4 [id number] #### [facility] [address] [place] [address] eGFRon 09-19-2023 eGFR 82 mL/min/1.73 m2 Normal >=59 [facility] Comment on above: Order Comment: Order added by Discern Expert. Performed By: #### 1 [id number] #### [facility] [address] [place] [address] XR Chest Single Viewon 08-10 XR Chest [...] mGy = na DAP = na Normal [facility] BMPon 08-10-2023 Anion gap [Moles/Vol] 13 mmol/L Normal 6-16 [facility] Comment on above: Performed By: #### 2 [id number] #### [facility] [address] [place] [address] Calcium [Mass/Vol] 9.3 mg/dL Normal 8.9-11.1 [facility] Comment on above: Performed By: #### 2 [id number] #### [facility] [address] [place] [address] Chloride [Moles/Vol] 107 mmol/L Normal 101-111 [facility] Comment on above: Performed By: #### 2 [id number] #### [facility] [address] [place] [address] CO2 [Moles/Vol] 25 mmol/L Normal 21-31 [facility] Comment on above: Performed By: #### 2 [id number] #### [facility] [address] [place] [address] Creatinine [Mass/Vol] 0.9 mg/dL Normal 0.5-1.3 [facility] Comment on above: Performed By: #### 2 [id number] #### [facility] [address] [place] [address] Glucose [Mass/Vol] 107 mg/dL Normal 55-199 [facility] Comment on above: Performed By: #### 2 [id number] #### [facility] [address] [place] [address] Potassium [Moles/Vol] 5.3 mmol/L Normal 3.5-5.3 [facility] Comment on above: Performed By: #### 2 [id number] #### [facility] [address] [place] [address] Sodium [Moles/Vol] 140 mmol/L Normal 135-145 [facility] Comment on above: Performed By: #### 2 [id number] #### [facility] [address] [place] [address] Urea nitrogen [Mass/Vol] 15 mg/dL Normal 5-21 [facility] Comment on above: Performed By: #### 2 [id number] #### [facility] [address] [place] [address] Urea nitrogen/Creatinine [Mass ratio] 17 No Units Normal 10-20 [facility] Comment on above: Performed By: #### 2 [id number] #### [facility] [address] [place] [address] CBC w/ Auto Diffon 4 Basophils/100 WBC (Bld) 0.4 % Normal 0.0-2.0 [facility] Comment on above: Performed By: #### 2 [id number] #### [facility] [address] [place] [address] Basophils/Leukocytes Auto (Bld) [Pure # fraction] 0.0 E9/L Normal 0.0-0.2 [facility] Comment on above: Performed By: #### 2 [id number] #### [facility] [address] [place] [address] Eosinophils (Bld) [#/Vol] 0.3 E9/L Normal 0.0-0.5 [facility] Comment on above: Performed By: #### 2 [id number] #### [facility] [address] [place] [address] Eosinophils/100 WBC (Bld) 3.1 % Normal 0.0-8.0 [facility] Comment on above: Performed By: #### 2 [id number] #### [facility] [address] [place] [address] Erythrocyte distribution width (RBC) [Ratio] 14.5 % High 10.9-14.2 [facility] Comment on above: Performed By: #### 2 [id number] #### [facility] [address] [place] [address] Hematocrit (Bld) [Volume fraction] 41.3 % Normal 34.0-46.0 [facility] Comment on above: Performed By: #### 2 [id number] #### [facility] [address] [place] [address] Hemoglobin (Bld) [Mass/Vol] 14.0 g/dL Normal 12.0-16.0 [facility] Comment on above: Performed By: #### 2 [id number] #### [facility] [address] [place] [address] Lymphocytes (Bld) [#/Vol] 2.9 E9/L Normal 1.0-4.0 [facility] Comment on above: Performed By: #### 2 [id number] #### [facility] [address] [place] [address] Lymphocytes/100 WBC (Bld) 30.6 % Normal 14.0-50.0 [facility] Comment on above: Performed By: #### 2 [id number] #### [facility] [address] [place] [address] MCH (RBC) [Entitic mass] 31.1 pg Normal 27.0-34.0 [facility] Comment on above: Performed By: #### 2 [id number] #### [facility] [address] [place] [address] MCHC (RBC) [Mass/Vol] 33.8 g/dL Normal 31.4-36.0 [facility] Comment on above: Performed By: #### 2 [id number] #### [facility] [address] [place] [address] MCV (RBC) [Entitic vol] 92.2 fL Normal 80.0-100.0 [facility] Comment on above: Performed By: #### 2 [id number] #### [facility] [address] [place] [address] Monocytes (Bld) [#/Vol] 0.7 E9/L Normal 0.2-1.0 [facility] Comment on above: Performed By: #### 2 [id number] #### [facility] [address] [place] [address] Neutrophils (Bld) [#/Vol] 5.7 E9/L Normal 2.0-7.5 [facility] Comment on above: Performed By: #### 2 [id number] #### [facility] [address] [place] [address] Neutrophils/100 WBC (Bld) 58.9 % Normal 36.0-75.0 [facility] Comment on above: Performed By: #### 2 [id number] #### [facility] [address] [place] [address] Platelet 215.0 E9/L Normal 150.0-500.0 [facility] Comment on above: Performed By: #### 2 [id number] #### [facility] [address] [place] [address] Platelet mean volume (Bld) [Entitic vol] 8.5 fL Normal 6.4-10.8 [facility] Comment on above: Performed By: #### 2 [id number] #### [facility] [address] [place] [address] RBC (Bld) [#/Vol] 4.5 E12/L Normal 4.3-5.9 [facility] Comment on above: Performed By: #### 2 601153 #### [facility] [address] [place] [address] WBC corrected for nucl RBC Auto (Bld) [#/Vol] 9.6 E9/L Normal 4.0-11.0 [facility] Comment on above: Performed By: #### 2 [id number] #### [facility] [address] [place] [address] CHEMISTRYOrdered By: SYSTEM SYSTEM on 08-10-2023 Troponin [...] Sensitivity Troponin I Instructions For Use, Meryl Saxon, October 2017) Anion gap [Moles/Vol] 13 mmol/L [...] Sensitivity Troponin I Instructions For Use, Meryl Saxon, October 2017) Urea nitrogen [Mass/Vol] 15 mg/dL Normal 5 - 21 mg/dL [facility] Urea nitrogen/Creatinine [Mass ratio] 17 mg/mg Normal 10 - 20 [facility] COAGULATIONOrdered By: Michelle Palumbo on 08-10-2023 aPTT Coag (PPP) [Time] 30.5 s Normal 25.1 - 36.5 second(s) [facility] Auto Coag Comment on above: Interpretive Data: P arametseth 15 days - 4 weeks 1 - [...] the same coagulation reagent and instrumentation as [facility]. Currently there are no coagulation studies available worldwide for children to 14 days, and no normal ranges. Heparin therapeutic range (represented by Anti-Factor Xa activity of 0.2 - 0.4 U/mL) corresponds to PTT of 56.6 - 109.0 sec. INR Coag (PPP) [Relative time] 0.80 {INR} Invalid Interpretation Code [facility] Auto Coag Comment on above: Interpretive Data: I NR results are specifically intended to assess patients stabilized on long-term Anticoagulation therapy suggested INR s Less Intensive Anticoagulation 2.0 3.0 Conventional Range 3.0 4.5 PT Coag (PPP) [Time] 8.9 s Low 9.4 - 1 2.5 second(s) [facility] Auto Coag Comment on above: Interpretive Data: [...] the same coagulation reagent and instrumentation as [facility]. Currently there are no coagulation studies available worldwide for children to 14 days, and no normal ranges. Consent for Treatmenton 07-15 Consent for Treatment [id number] Normal [facility] Discharge Instructionson Discharge Instructions [id number] Normal [facility] ED Clinical Summaryon 2023 ED Clinical Summary [address] [address] ED Clinical Summary Person Information Name: TISH VARGAS [place] Age: 42 Years : 1980 Sex: Female Language: Prydeinig PCP: YANET JUNIOR CNP Marital Status: Phone: [phone] Visit Id: Visit Reason: Shortness of breath; [...] 08/10/2023 22:15:29 08/10/2023 22:15:29 AD[address]: [facility] [id number] [facility] DOC NOTES: MEDICAL INFORMATION: Prescriptions Given: Medications [...] EDUCATION INFORMATION: Instructions: Nonspecific Chest Pain, Adult, [id number] Follow up: With: Address: When: Koko Swansonjessica Grajeda, (more content not included)... Normal [facility] ED Note-Physicianon 08-10-19 ED Note-Physician Basic [...] stents. Reports that she is unsure which insurance verification specialist she follows up with. Denies any nausea [...] and Complexity of Problems Differential Diagnosis: [] [facility] Data External documents reviewed: [] My [...] STAT, Sta (more content not included)... Normal [facility] Comment on above: Result Comment: Elec [...] these instructions at home: Medicines ? Take sxna-rde-oovipnt and prescription medicines only as told by [...] Eating a heart-healthy diet. A diet and animal nutritionist (dietitian) can help you to learn healthy [...] Reviewed: 05/16/2021 Elsevier Patient Education ? 2022 [employer] Normal [facility] ED Patient Summaryon 024 ED Patient Summary [address] [address] Patient Discharge Instructions Person Information Name: TISH VARGAS Age: 42 Years Arrival Date: 08/10/2023 19:03:55 Discharge Diagnosis: Nonspecific chest pain Primary Care Physician: YANET JUNIOR CNP Provider Information Primary Provider: Juan Arnold DO Advanced [employer] Maker:None The exam and treatment you received in the Emergency Department were for an urgent problem and are not intended as complete care. It is important that you follow up with a doctor, nurse practitioner, or physician?s anesthesia assistant for ongoing care. If your symptoms [...] Follow-up Instructions: With: Address: When: Koko Vasquez [address] [place] [phone] [facility] (1) In 3 days 08/13/2023 Comments: Call Dr for diagnosis based follow up With: Address: When: YANET JUNIOR [address], [place] [phone] [facility] (1) In 3 days 08/13/2023 Comments: Call Dr for diagnosis based follow up In the event that this physician does not participate in your insurance network, please consult with your insurance company to find a nearby participating provider. Patient Education Materials: Nonspecific Chest Pain, Adult, Zkoe-jx-Mocw A MESSAGE TO ALL PATIENTS REGARDING OPIOIDS PRESCRIPTION OPIOIDS: WHAT YOU NEED TO KNOW Prescription opioids can be used to help relieve zabzwjgn-qd-gttvbb pain and are often prescribed following a [...] Visit [email or web address] (more content not included)... Normal [facility] HEMATOLOGYOrdered By: SYSTEM SYSTEM on 08-10-2023 [...] Remisol Heme Monitor Recordon 08-10-2023 Monitor Record [id number]# 1.00TIFF Normal [facility] PT & PTTon 08-10-2023 aPTT Coag (PPP) [Time] 30.5 second(s) Normal 25.1-36.5 [facility] Comment on above: Result Comment: Para [...] the same coagulation reagent and instrumentation as [facility]. Currently there are no coagulation studies available worldwide for children to 14 days, and no normal ranges. Heparin therapeutic range (represented by Anti-Factor Xa activity of 0.2 - 0.4 U/mL) corresponds to PTT of 56.6 - 109.0 sec. Performed By: #### 1 [id number] #### [facility] [address] [place] [address] INR Coag (PPP) [Relative time] 0.80 {INR} Invalid Interpretation Code [facility] Comment on above: Result Comment: INR results are specifically intended to assess patients stabilized on long-term Anticoagulation therapy suggested INR?s ?Less Intensive Anticoagulation? 2.0 ? 3.0 Conventional Range 3.0 ? 4.5 Performed By: #### 1 [id number] #### [facility] [address] [place] [address] PT Coag (PPP) [Time] 8.9 second(s) Low 9.4-12.5 [facility] Comment on above: Result Comment: 15 [...] the same coagulation reagent and instrumentation as [facility]. Currently there are no coagulation studies available worldwide for children to 14 days, and no normal ranges. Performed By: #### 1 [id number] #### [facility] [address] [place] [address] Troponin 0 Hr.on 08-10-2023 Troponin I.cardiac [Mass/Vol] ng/mL Low 10.10-27.10 [facility] Comment on above: Result Comment: The 95% CI (Confidence Interval) PPV (Positive Predictive Value) for myocardial infarction in females is 38 pg/mL, in males 51 pg/mL. The results should be used in conjunction with clinical conditions of myocardial infarction. (Access High Sensitivity Troponin I Instructions For Use, [employer], October 2017) Performed By: #### 1 [id number] #### [facility] [address] [place] [address] Troponin 1 Hr.on 08-10-2023 Troponin I.cardiac [Mass/Vol] ng/mL Low 10.10-27.10 [facility] Comment on above: Order Comment: 2019 Result Comment: The 95% CI (Confidence Interval) PPV (Positive Predictive Value) for myocardial infarction in females is 38 pg/mL, in males 51 pg/mL. The results should be used in conjunction with clinical conditions of myocardial infarction. (Access High Sensitivity Troponin I Instructions For Use, [employer], October 2017) Performed By: #### 1 [id number] #### [facility] [address] [place] [address] eGFRon 08-10-2023 eGFR 82 mL/min/1.73 m2 Normal >=59 [facility] Comment on above: Order Comment: Order added by Discern Expert. Performed By: #### 1 [id number] #### [facility] [address] [place] [address] C Urineon 08-01-2023 Bacteria identified Cx Nom [...] Locations R1: This test was performed at: [facility], [address] [place] [address], [address]- , , Normal [facility] Comment on above: Performed By: #### 2 [id number] #### [facility] [address] [place] [address] B hCG Qualon 07-30-2023 Beta HCG ( test) Ql Negative Normal [facility] Comment on above: Performed By: #### 2 [id number] #### [facility] [address] [place] [address] BMPon 07-30-2023 Anion gap [Moles/Vol] 12 mmol/L Normal 6-16 [facility] Comment on above: Performed By: #### 2 [id number] #### [facility] [address] [place] [address] Calcium [Mass/Vol] 9.6 mg/dL Normal 8.9-11.1 [facility] Comment on above: Performed By: #### 2 [id number] #### [facility] [address] [place] [address] Chloride [Moles/Vol] 107 mmol/L Normal 101-111 [facility] Comment on above: Performed By: #### 2 [id number] #### [facility] [address] [place] [address] CO2 [Moles/Vol] 24 mmol/L Normal 21-31 [facility] Comment on above: Performed By: #### 2 [id number] #### [facility] [address] [place] [address] Creatinine [Mass/Vol] 0.8 mg/dL Normal 0.5-1.3 [facility] Comment on above: Performed By: #### 2 [id number] #### [facility] [address] [place] [address] Glucose [Mass/Vol] 103 mg/dL Normal 55-199 [facility] Comment on above: Performed By: #### 2 [id number] #### [facility] [address] [place] [address] Potassium [Moles/Vol] 4.3 mmol/L Normal 3.5-5.3 [facility] Comment on above: Performed By: #### 2 [id number] #### [facility] [address] [place] [address] Sodium [Moles/Vol] 139 mmol/L Normal 135-145 [facility] Comment on above: Performed By: #### 2 [id number] #### [facility] [address] [place] [address] Urea nitrogen [Mass/Vol] 16 mg/dL Normal 5-21 [facility] Comment on above: Performed By: #### 2 [id number] #### [facility] [address] [place] [address] Urea nitrogen/Creatinine [Mass ratio] 20 No Units Normal 10-20 [facility] Comment on above: Performed By: #### 2 [id number] #### [facility] [address] [place] [address] CBC w/ Auto Diffon 4 Basophils/100 WBC (Bld) 0.7 % Normal 0.0-2.0 [facility] Comment on above: Performed By: #### 2 [id number] #### [facility] [address] [place] [address] Basophils/Leukocytes Auto (Bld) [Pure # fraction] 0.0 E9/L Normal 0.0-0.2 [facility] Comment on above: Performed By: #### 2 [id number] #### [facility] [address] [place] [address] Eosinophils (Bld) [#/Vol] 0.2 E9/L Normal 0.0-0.5 [facility] Comment on above: Performed By: #### 2 [id number] #### [facility] [address] [place] [address] Eosinophils/100 WBC (Bld) 2.7 % Normal 0.0-8.0 [facility] Comment on above: Performed By: #### 2 [id number] #### [facility] [address] [place] [address] Erythrocyte distribution width (RBC) [Ratio] 14.1 % Normal 10.9-14.2 [facility] Comment on above: Performed By: #### 2 [id number] #### [facility] [address] [place] [address] Hematocrit (Bld) [Volume fraction] 43.6 % Normal 34.0-46.0 [facility] Comment on above: Performed By: #### 2 [id number] #### [facility] [address] [place] [address] Hemoglobin (Bld) [Mass/Vol] 14.7 g/dL Normal 12.0-16.0 [facility] Comment on above: Performed By: #### 2 170003 #### [facility] [address] [place] [address] Lymphocytes (Bld) [#/Vol] 2.7 E9/L Normal 1.0-4.0 [facility] Comment on above: Performed By: #### 2 [id number] #### [facility] [address] [place] [address] Lymphocytes/100 WBC (Bld) 40.4 % Normal 14.0-50.0 [facility] Comment on above: Performed By: #### 2 925190 #### [facility] [address] [place] [address] MCH (RBC) [Entitic mass] 30.9 pg Normal 27.0-34.0 [facility] Comment on above: Performed By: #### 2 [id number] #### [facility] [address] [place] [address] MCHC (RBC) [Mass/Vol] 33.6 g/dL Normal 31.4-36.0 [facility] Comment on above: Performed By: #### 2 [id number] #### [facility] [address] [place] [address] MCV (RBC) [Entitic vol] 92.0 fL Normal 80.0-100.0 [facility] Comment on above: Performed By: #### 2 [id number] #### [facility] [address] [place] [address] Monocytes (Bld) [#/Vol] 0.4 E9/L Normal 0.2-1.0 [facility] Comment on above: Performed By: #### 2 [id number] #### [facility] [address] [place] [address] Neutrophils (Bld) [#/Vol] 3.3 E9/L Normal 2.0-7.5 [facility] Comment on above: Performed By: #### 2 [id number] #### [facility] [address] [place] [address] Neutrophils/100 WBC (Bld) 50.0 % Normal 36.0-75.0 [facility] Comment on above: Performed By: #### 2 [id number] #### [facility] [address] [place] [address] Platelet 208.0 E9/L Normal 150.0-500.0 [facility] Comment on above: Performed By: #### 2 [id number] #### [facility] [address] [place] [address] Platelet mean volume (Bld) [Entitic vol] 8.4 fL Normal 6.4-10.8 [facility] Comment on above: Performed By: #### 2 [id number] #### [facility] [address] [place] [address] RBC (Bld) [#/Vol] 4.7 E12/L Normal 4.3-5.9 [facility] Comment on above: Performed By: #### 2 [id number] #### [facility] [address] [place] [address] WBC corrected for nucl RBC Auto (Bld) [#/Vol] 6.6 E9/L Normal 4.0-11.0 [facility] Comment on above: Performed By: #### 2 [id number] #### [facility] [address] [place] [address] CT Abdomen/Pelvis w/o Contra ston 07-30-2023 CT [...] Oral contrast amount in ml's: 0 Normal [facility] Discharge Instructionson Discharge Instructions [id number] .00TIFF Normal [facility] ED Clinical Summaryon 2023 ED Clinical Summary [place] [id number] ED Clinical Summary Person Information Name: TISH VARGAS [facility] Age: 42 Years : 1980 Sex: Female Language: Prydeinig PCP: YANET JUNIOR CNP Marital Status: Phone: [phone] Visit Id: Visit Reason: Chest pain; Nausea; [...] 07/30/2023 02:22:55 07/30/2023 02:22:55 07/30/2023 02:22:55 ADDRESS: [address] [place] [id number] PHYS DOC NOTES: MEDICAL INFORMATION: Prescriptions Given: New Medications [facility]/pharmacy #[id number], [address], [place] [id number], [phone] cephalexin (Keflex 500 mg Cap) 1 Capsules By Mouth 3 times a day for 5 Days. Refills: 0. phenazopyridine (Pyridium 100 mg Tab) 1 Tablets By Mouth 3 times a day for 3 Days. Refills: 0. Medications to Continue Taking That Have Changed [facility] #[id number], [address] [place], [place] [id number], [phone] START: ondansetron (Zofran ODT 4 mg Tab-Dis) [...] 0. nitrog (more content not included)... Normal [facility] ED Note-Physicianon 07-30-19 ED Note-Physician Basic [...] and Complexity of Problems Differential Diagnosis: [] [facility] Data External documents reviewed: [] My [...] is reviewed just filled a prescription for [place] on the . CT imaging does not show any obstructing kidney stones. I discussed findings with patient patient requesting pain medication for home. Explained I am not comfortable as there is no indication as she has no obstructing kidney stone as she also has just filled the prescription for [place] 2 days ago. Patient has multiple short-term [...] day(s), # 15 cap(s), Refills(s) 0, Pharmacy: [facility]/pharmacy #[id number], 160, cm, 07/29/23 21:34:00 EDT, [...] q8hr, # 12 tab(s), Refills(s) 0, [id number] 160, cm, 07/29/23 21:34:00 EDT, Height/Length Dosing, 119, kg, 07/29/23 21:34:00 EDT, Weight Dosing ondansetron, 4 mg = 2 mL, Injection, IV Push, Once, Stop date 07/29/23 23:22:00 EDT, STAT, Start date 07/29/23 23:22:00 EDT, 07/29/23 23:22:00 EDT oxycodone, 5 (more content not included)... Normal [facility] Comment on above: Result Comment: Elec tronically Signed By: Janes Bowles DO.br\Date and Time Signed: 07/30/23 03:06 EDT ED [...] these instructions at home: Medicines ? Take rocu-xfn-tyxhblv and prescription medicines only as told by [...] provider. Document Revised: 10/12/2020 Document Reviewed: 10/12/2020 [employer] Patient Education ? 2022 [employer] Orthopedics Flank Pain, Adult Flank pain [...] as told by your doctor. ? Take hryj-iuz-tevzkdn and prescription medicines only as told by [...] short of (more content not included)... Normal [facility] ED Patient Summaryon 024 ED Patient Summary [address] [address] Patient Discharge Instructions Person Information Name: TISH VARGAS Age: 42 Years Arrival Date: 07/29/2023 21:12:09 Discharge Diagnosis: Acute UTI (urinary tract infection); Flank pain Primary Care Physician: YANET JUNIOR CNP Provider Information Primary Provider: Janes Bowles DO Advanced Artificial Plastic Eye Maker:None The exam and treatment you received in the Emergency Department were for an urgent problem and are not intended as complete care. It is important that you follow up with a doctor, nurse practitioner, or physician?s anesthesia assistant for ongoing care. If your symptoms become worse or you do not improve as expected and you are unable to reach your usual health care provider, you should return to the Emergency Department. We are available 24 hours a day. TISH VARGAS has been given the following list of patient education materials, prescriptions and follow-up instructions: Follow-up Instructions: With: Address: When: YANET JUNIOR [address] [place], [place] [phone] Business (1) In 3 days 08/02/2023 Comments: [...] Patient Education Materials: Urinary Tract Infection, Adult, Ancc-pw-Gtfb; Flank Pain, Adult, Avxb-es-Clwr A MESSAGE TO ALL PATIENTS REGARDING OPIOIDS PRESCRIPTION OPIOIDS: WHAT YOU NEED TO KNOW Prescription opioids can be used to help relieve egnbqkwo-hz-psteca pain and are often prescribed following a [...] Drug Administr (more content not included)... Normal [facility] Hep Func Panelon 07-30-2023 Albumin [Mass/Vol] 4.5 g/dL Normal 3.3-5.0 [facility] Comment on above: Performed By: #### 2 [id number] #### [facility] [address] [place] [address] Albumin/Globulin (S) [Mass conc ratio] 2.0 Normal 1.1-2.2 [facility] Comment on above: Performed By: #### 2 [id number] #### [facility] [address] [place] [address] ALP [Catalytic activity/Vol] 99 Int._Unit/L High 21-98 [facility] Comment on above: Performed By: #### 2 [id number] #### [facility] [address] [place] [address] ALT No additional P-5'-P [Catalytic activity/Vol] 10 Int._Unit/L Normal 6-46 [facility] Comment on above: Performed By: #### 2 [id number] #### [facility] [address] [place] [address] AST [Catalytic activity/Vol] 17 Int._Unit/L Normal 5-43 [facility] Comment on above: Performed By: #### 2 [id number] #### [facility] [address] [place] [address] Bilirubin [Mass/Vol] 0.5 mg/dL Normal 0.0-1.1 [facility] Comment on above: Performed By: #### 2 [id number] #### [facility] [address] [place] [address] Bilirubin.direct [Mass/Vol] 0.1 mg/dL Normal 0.0-0.4 [facility] Comment on above: Performed By: #### 2 [id number] #### [facility] [address] [place] [address] Bilirubin.indirect [Mass or moles/Vol] 0.4 mg/dL Normal 0.1-0.9 [facility] Comment on above: Performed By: #### 2 [id number] #### [facility] [address] [place] [address] Globulin (S) [Mass/Vol] 2.3 g/dL Normal 1.4-4.0 [facility] Comment on above: Performed By: #### 2 [id number] #### [facility] [address] [place] [address] Protein [Mass/Vol] 6.8 g/dL Normal 6.0-7.8 [facility] Comment on above: Performed By: #### 2 [id number] #### [facility] [address] [place] [address] Lipase Levelon 07-30-2023 Lipase [Catalytic activity/Vol] 22 U/L Normal 13-58 [facility] Comment on above: Performed By: #### 2 [id number] #### [facility] [address] [place] [address] RAD - Preliminary Cat Scan R eporton 07-30-2023 RAD - Preliminary Cat Scan Report [id number] .00TIFF Normal [facility] Troponin 0 Hr.on 07-30-2023 Troponin 2.60 pg/mL Low 10.10-27.10 [facility] Comment on above: Result Comment: The 95% CI (Confidence Interval) PPV (Positive Predictive Value) for myocardial infarction in females is 38 pg/mL, in males 51 pg/mL. The results should be used in conjunction with clinical conditions of myocardial infarction. (Access High Sensitivity Troponin I Instructions For Use, Meryl Antionette, October 2017) Performed By: #### 1 [id number] #### [facility] [address] [place] [address] UA with Cult Rflxon 07-30-19 24 Bilirubin Ql (U) Negative Normal Negative [facility] Comment on above: Performed By: #### 4 [id number] #### [facility] [address] [place] [address] Clarity (U) Turbid Abnormal Clear [facility] Comment on above: Performed By: #### 4 [id number] #### [facility] [address] [place] [address] Color (U) [place] Abnormal Yellow [facility] Comment on above: Result Comment: Micr oscopic readings are only performed on those samples that meet specific criteria set forth by [facility]. Performed By: #### 4 [id number] #### [facility] [address] [place] [address] Glucose Ql (U) 4+ mg/dL Abnormal Negative [facility] Comment on above: Performed By: #### 4 [id number] #### [facility] [address] [place] [address] Hemoglobin Auto test strip (U) [Mass/Vol] 3+ mg/dL Abnormal Negative [facility] Comment on above: Performed By: #### 4 [id number] #### [facility] [address] [place] [address] Ketones Auto test strip Ql (U) Negative Normal Negative [facility] Comment on above: Performed By: #### 4 [id number] #### [facility] [address] [place] [address] Leukocyte esterase Auto test strip Ql (U) 500 [place]/uL Abnormal Negative [facility] Comment on above: Performed By: #### 4 [id number] #### [facility] [address] [place] [address] Nitrite Auto test strip Ql (U) Negative Normal Negative [facility] Comment on above: Performed By: #### 4 [id number] #### [facility] [address] [place] [address] pH (U) 5.5 [pH] Invalid Interpretation Code 5.0-9.0 [facility] Comment on above: Performed By: #### 4 [id number] #### [facility] [address] [place] [address] Protein Ql (U) 1+ mg/dL Abnormal Negative [facility] Comment on above: Performed By: #### 4 [id number] #### [facility] [address] [place] [address] Specific gravity (U) [Rel density] 1.019 Invalid Interpretation Code 1.005-1.030 [facility] Comment on above: Performed By: #### 4 [id number] #### [facility] [address] [place] [address] Urobilinogen (U) [Mass/Vol] Negative Normal Negative [facility] Comment on above: Performed By: #### 4 [id number] #### [facility] [address] [place] [address] Bacteria Auto Ql (U) 2+ /HPF Abnormal Trace Fish [facility] Comment on above: Performed By: #### 4 [id number] #### [facility] [address] [place] [address] Epithelial cells.squamous Auto (Urine sed) [#/Area] 3-4 Abnormal 0-2 [facility] Comment on above: Performed By: #### 4 [id number] #### [facility] [address] [place] [address] Mucus Auto Ql (U) Trace Normal Negative [facility] Comment on above: Performed By: #### 4 [id number] #### [facility] [address] [place] [address] RBC Ql (U) 4-20 Abnormal 0-3 [facility] Comment on above: Performed By: #### 4 [id number] #### [facility] [address] [place] [address] WBC Auto (Urine sed) [#/Area] 0-5 Normal 0-5 [facility] Comment on above: Performed By: #### 4 [id number] #### [facility] [address] [place] [address] eGFRon 07-30-2023 eGFR 94 mL/min/1.73 m2 Normal >=59 [facility] Comment on above: Order Comment: Order added by Discern Expert. Performed By: #### 1 [id number] #### [facility] [address] [place] [address] CHEMISTRYOrdered By: SYSTEM SYSTEM on 07-29-2023 Albumin [...] Sensitivity Troponin I Instructions For Use, Meryl Saxon, October 2017) Urea nitrogen [Mass/Vol] 16 mg/dL Normal 5 - 21 mg/dL Remisol Chem Urea nitrogen/Creatinine [Mass ratio] 20 mg/mg Normal 10 - 20 Remisol Chem Consent for Treatmenton 07-14 Consent for Treatment [id number] .00TIFF Normal [facility] HEMATOLOGYOrdered By: SYSTEM SYSTEM on 07-29-2023 [...] - 11.0 E9/L Remisol Heme SEROLOGYOrdered By: Doyna Woo on 07-29-2023 Beta HCG ( test) Ql Negative (07/29/23 11:35 PM) Normal [facility] Man Sero UA with Cult Rflxon 07-29-19 Type of Urine collection method Clean Catch Normal [facility] Comment on above: Performed By: #### 4 [id number] #### [facility] [address] [place] [address] URINALYSISOrdered By: Bruce Woo on 07-29-2023 Bacteria [...] Clear [facility] UA Auto SS Color (U) [place] 1 *ABN* (07/29/23 11:33 PM) Invalid Interpretation Code Yellow [facility] UA Auto SS Comment on above: Interpretive Data: M icroscopic readings are only performed on those samples that meet specific criteria set forth by [facility]. Glucose Ql (U) 4+ mg/dL [...] Urobilinogen (U) [Mass/Vol] Negative Normal Negativemg/d L [facility] UA Auto SS URINALYSISOrdered By: Phoebe Dubon on 07-29-2023 UA Spec Desc Clean Catch (07/29/23 11:33 PM) Normal [facility] UA Auto SS CT Abdomen/Pelvis w/o Contra [...] Oral contrast amount in ml's: 0 Normal [facility] Consent for Treatmenton 05-14 Consent for Treatment [id number] .00TIFF Normal [facility] Discharge Instructionson Discharge Instructions [id number] 1.00TIFF Normal [facility] ED Clinical Summaryon 2023 ED Clinical Summary [place] [id number] ED Clinical Summary Person Information Name: TISH VARGAS [facility] Age: 42 Years : 1980 Sex: Female Language: Prydeinig PCP: YANET JUNIOR CNP Marital Status: Phone: [phone] Visit Id: Visit Reason: Nausea; Hematuria; Flank [...] 05/28/2023 15:54:36 05/28/2023 15:54:36 05/28/2023 15:54:36 ADDRESS: [address] [place] [id number] PHYS DOC NOTES: MEDICAL INFORMATION: Prescriptions Given: New Medications [facility]/pharmacy #[id number], [address] [place], [place] [phone], [phone] ibuprofen (ibuprofen 600 mg Tab) 1 Tablets By Mouth every 8 hours for 7 Days. Refills: 0. Medications to Continue Taking That Have Changed [facility]/pharmacy #[id number], [address] [place], [place] [phone], [phone] START: acetaminophen-oxycodo ne (Percocet 5 mg-325 mg [...] Colic Follow up: With: Address: When: YANET JUNIOR (more content not included)... Normal [facility] ED Note-Physicianon 05-28-19 ED Note-Physician Basic [...] Making Patient seen and evaluated with the BAGEL MAKER student. I had a qbsf-ii-fbrv interaction with the patient. I personally performed [...] Daily, # 10 cap(s), Refills(s) 0, Pharmacy: [facility]/pharmacy #[id number], 160, cm, 05/28/23 13:08:00 EDT, [...] results, tr (more content not included)... Normal [facility] Comment on above: Result Comment: Elec [...] that you are feeling: Medicines ? Take lnih-yur-rbvphfb and prescription medicines only as told by [...] by passing a kidney stone. ? Take tycb-ufp-exdsjjw and prescription medicines only as told by [...] Reviewed: 11/04/2021 Elsevier Patient Education ? 2022 Elsevier Inc. Normal [facility] ED Patient Summaryon 024 ED Patient Summary [address] [address] Patient Discharge Instructions Person Information Name: TISH VARGAS Age: 42 Years Arrival Date: 05/28/2023 12:57:53 Discharge Diagnosis: Renal colic Primary Care Physician: YANET JUNIOR CNP Provider Information Primary Provider: Mikaela Judd M.D. Advanced Artificial Plastic Eye Maker:Regis Purcell PA-C The exam and treatment you received in the Emergency Department were for an urgent problem and are not intended as complete care. It is important that you follow up with a doctor, nurse practitioner, or physician?s anesthesia assistant for ongoing care. If your symptoms become worse or you do not improve as expected and you are unable to reach your usual health care provider, you should return to the Emergency Department. We are available 24 hours a day. TISH VARGAS has been given the following list of patient education materials, prescriptions and follow-up instructions: Follow-up Instructions: With: Address: When: YANET JUNIOR [address], [place] [phone] Business (1) In 3 days 05/31/2023 In the event that this physician does not participate in your insurance network, please consult with your insurance company to find a nearby participating provider. Patient Education Materials: Renal Colic A MESSAGE TO ALL PATIENTS REGARDING OPIOIDS PRESCRIPTION OPIOIDS: WHAT YOU NEED TO KNOW Prescription opioids can be used to help relieve kuyaaqdr-di-ptrflh pain and are often prescribed following a [...] be struggling with addiction, tell your health day care attendant and ask for guidance or call [employer]?S National Helpline at 2-774-089-HELP. v Source: (more content not included)... Normal [facility] UA With Cult Reflexon 2023 Bacteria LM Ql (Urine sed) TRACE Normal Trace [facility] Comment on above: Performed By: #### 1 [id number] #### [facility] [address] [place] [address] Bilirubin Ql (U) 1+ Abnormal Negative [facility] Comment on above: Performed By: #### 1 [id number] #### [facility] [address] [place] [address] Clarity (U) CLOUDY Abnormal Clear [facility] Comment on above: Performed By: #### 1 [id number] #### [facility] [address] [place] [address] Color (U) YELLOW Normal Yellow [facility] Comment on above: Performed By: #### 1 [id number] #### [facility] [address] [place] [address] Crystals LM Ql (Urine sed) Present Normal [facility] Comment on above: Performed By: #### 1 [id number] #### [facility] [address] [place] [address] Epithelial cells.squamous LM.HPF (Urine sed) [#/Area] 0-2 Normal 0-2 [facility] Comment on above: Performed By: #### 1 [id number] #### [facility] [address] [place] [address] Glucose Test strip (U) [Mass/Vol] 3+ Abnormal Negative [facility] Comment on above: Performed By: #### 1 [id number] #### [facility] [address] [place] [address] Hemoglobin Ql (U) 3+ Abnormal Negative [facility] Comment on above: Performed By: #### 1 [id number] #### [facility] [address] [place] [address] Ketones (U) [Mass/Vol] TRACE Invalid Interpretation Code Negative [facility] Comment on above: Performed By: #### 1 [id number] #### [facility] [address] [place] [address] Muddy.plasma/Muddy .RBC (Bld) [Mass ratio] >75 Abnormal 0-3 [facility] Comment on above: Performed By: #### 1 [id number] #### [facility] [address] [place] [address] Nitrite Ql (U) Negative Normal Negative [facility] Comment on above: Performed By: #### 1 [id number] #### [facility] [address] [place] [address] pH (U) 6.0 [pH] Invalid Interpretation Code 5.0-9.0 [facility] Comment on above: Performed By: #### 1 [id number] #### [facility] [address] [place] [address] Protein (U) [Mass/Vol] TRACE Abnormal Negative [facility] Comment on above: Performed By: #### 1 [id number] #### [facility] [address] [place] [address] Specific gravity (U) [Rel density] >=1.030 Invalid Interpretation Code 1.005-1.030 [facility] Comment on above: Performed By: #### 1 [id number] #### [facility] [address] [place] [address] Type of Urine collection method Clean Catch Normal [facility] Comment on above: Performed By: #### 1 [id number] #### [facility] [address] [place] [address] Urobilinogen Qn (U) 0.2 {Lidya'U}/dL Normal 0.0-1.0 [facility] Comment on above: Performed By: #### 1 [id number] #### [facility] [address] [place] [address] WBC Auto Ql (U) Negative Normal Negative [facility] Comment on above: Performed By: #### 1 [id number] #### [facility] [address] [place] [address] WBC LM.HPF (Urine sed) [#/Area] 0-5 Normal 0-5 [facility] Comment on above: Performed By: #### 1 [id number] #### [facility] [address] [place] [address] URINALYSISOrdered By: Maira carmona on 05-28-2023 Bacteria [...] Interpretation Code Negative [facility] UA Auto SS Muddy.plasma/Muddy .RBC (Bld) [Mass ratio] >75 /HPF Invalid [...] [facility] UA Auto SS Urobilinogen Qn (U) 0.9601749 {Lidya'U}/dL Normal 0.0 - 1.0 EU/dL [facility] UA Auto SS WBC Auto Ql (U) Negative (05/28/23 1:53 PM) Normal Negative [facility] UA Auto SS WBC LM.HPF (Urine sed) [#/Area] 0-5 /HPF Normal 0-5/HPF [facility] UA Auto SS CMPon 05-11-2023 Albumin [Mass/Vol] 4.3 g/dL Normal 3.3-5.0 [facility] Comment on above: Performed By: #### 2 009312, [id number], [id number] ####[facility] [address] [place] [address] Albumin/Globulin [Mass ratio] 1.7 {ratio} Normal 1.1-2.2 [facility] Comment on above: Performed By: #### 2 239018, [id number], [id number] ####[facility] [address] [place] [address] Alk Phos 106 Int._Unit/L High 21-98 [facility] Comment on above: Performed By: #### 2 493491, [id number], [id number] ####[facility] [address] [place] [address] ALT 7 Int._Unit/L Normal 6-46 [facility] Comment on above: Performed By: #### 2 161745, 34098704, [id number] ####[facility] [address] [place] [address] Anion gap [Moles/Vol] 12 mmol/L Normal 6-16 [facility] Comment on above: Performed By: #### 2 056783, 07746238, [id number] ####[facility] [address] [place] [address] AST 13 Int._Unit/L Normal 5-43 [facility] Comment on above: Performed By: #### 2 613770, 71426359, [id number] ####[facility] [address] [place] [address] Bili Total 0.4 mg/dL Normal 0.0-1.1 [facility] Comment on above: Performed By: #### 2 415466, 56162269, [id number] ####[facility] [address] [place] [address] BUN/Creat Ratio 29 No Units High 10-20 [facility] Comment on above: Performed By: #### 2 406383, 75626877, [id number] ####[facility] [address] [facility] [place] [address] Calcium [Mass/Vol] 9.6 mg/dL Normal 8.9-11.1 [facility] Comment on above: Performed By: #### 2 135684, [id number], [id number] ####[facility] [address] [place] [address] Chloride [Moles/Vol] 106 mmol/L Normal 101-111 [facility] Comment on above: Performed By: #### 2 226669, 26616212, [id number] ####[facility] [address] [place] [place] [address] CO2 [Moles/Vol] 27 mmol/L Normal 21-31 [facility] Comment on above: Performed By: #### 2 884518, 55774108, [id number] ####[facility] [address] [place] [place] [address] Creatinine [Mass/Vol] 0.7 mg/dL Normal 0.5-1.3 [facility] Comment on above: Performed By: #### 2 742650, 28395689, [id number] ####[facility] [address] [place] [place] [address] Globulin (S) [Mass/Vol] 2.6 g/dL Normal 1.4-4.0 [facility] Comment on above: Performed By: #### 2 806812, 63256503, 250065530 ####[facility] [address] [place] [place] [address] Glucose [Mass/Vol] 96 mg/dL Normal 55-199 [facility] Comment on above: Performed By: #### 2 135592, 37678088, 601541415 ####[facility] [address] [place] [address] Potassium [Moles/Vol] 4.2 mmol/L Normal 3.5-5.3 [facility] Comment on above: Performed By: #### 2 437815, 23953290, 426015949 ####[facility] [address] [place] [address] Protein [Mass/Vol] 6.9 g/dL Normal 6.0-7.8 [facility] Comment on above: Performed By: #### 2 451772, 34781982, 700271506 ####[facility] [address] [place] [address] Sodium [Moles/Vol] 141 mmol/L Normal 135-145 [facility] Comment on above: Performed By: #### 2 117108, 82513635, 835475368 ####[facility] [address] [place] [address] Urea nitrogen [Mass/Vol] 20 mg/dL Normal 5-21 [facility] Comment on above: Performed By: #### 2 455251, 90202147, [id number] ####[facility] [address] [place] [address] Consent for Treatmenton 04-17 Consent for Treatment [id number] [facility] [id number] .00TIFF Normal [facility] YgaE9hgk 05-11-2023 HbA1c (Bld) [Mass fraction] 5.8 % Normal <=5.9 [facility] Comment on above: Performed By: #### 2 356767, 76086648, 518123951 ####[facility] [address] [place] [address] MA/Cr Ratioon 05-11-2023 Microalb/Cr Ratio .8 mg/gm Cr Normal .0-30.0 [facility] Comment on above: Result Comment: 30-3 00 mg/g Cr indicates an increased risk for diabetic nephropathy. >300 mg/g Cr is consistent with clinical nephropathy. Performed By: #### 1 [id number] #### [facility] [address] [place] [address] U Creatinine 96.3 mg/dL Invalid Interpretation Code [facility] Comment on above: Performed By: #### 1 [id number] #### [facility] [address] [place] [address] U Microalb <2.0 Normal 0.0-19.0 [facility] Comment on above: Performed By: #### 1 4587805 #### [facility] [address] [place] [address] Physician Orderon 05-11-2023 Physician Order [id number]# 1.00TIFF Normal [facility] UA With Cult Reflexon 2023 Bacteria LM Ql (Urine sed) TRACE Normal Trace [facility] Comment on above: Performed By: #### 1 [id number] #### [facility] [address] [place] [address] Bilirubin Ql (U) Negative Normal Negative [facility] Comment on above: Performed By: #### 1 [id number] #### [facility] [address] [place] [address] Clarity (U) CLEAR Normal Clear [facility] Comment on above: Performed By: #### 1 0851851 #### [facility] [address] [place] [address] Color (U) YELLOW Normal Yellow [facility] Comment on above: Performed By: #### 1 3889597 #### [facility] [address] [place] [address] Epithelial cells.squamous LM.HPF (Urine sed) [#/Area] 0-2 Normal 0-2 [facility] Comment on above: Performed By: #### 1 [id number] #### [facility] [address] [place] [address] Glucose Test strip (U) [Mass/Vol] 3+ Abnormal Negative [facility] Comment on above: Performed By: #### 1 4601089 #### [facility] [address] [place] [address] Hemoglobin Ql (U) Negative Normal Negative [facility] Comment on above: Performed By: #### 1 1270386 #### [facility] [address] [place] [address] Ketones (U) [Mass/Vol] Negative Normal Negative [facility] Comment on above: Performed By: #### 1 8593485 #### [facility] [address] [place] [address] Muddy.plasma/Muddy .RBC (Bld) [Mass ratio] 0-3 Normal 0-3 [facility] Comment on above: Performed By: #### 1 5707220 #### [facility] [address] [place] [address] Nitrite Ql (U) Negative Normal Negative [facility] Comment on above: Performed By: #### 1 9455613 #### [facility] [address] [place] [address] pH (U) 5.5 [pH] Invalid Interpretation Code 5.0-9.0 [facility] Comment on above: Performed By: #### 1 2121462 #### [facility] [address] [place] [address] Protein (U) [Mass/Vol] Negative Normal Negative [facility] Comment on above: Performed By: #### 1 [id number] #### [facility] [address] [place] [address] Specific gravity (U) [Rel density] 1.020 Invalid Interpretation Code 1.005-1.030 [facility] Comment on above: Performed By: #### 1 7501314 #### [facility] [address] [place] [address] Type of Urine collection method Clean Catch Normal [facility] Comment on above: Performed By: #### 1 [id number] #### [facility] [address] [place] [address] Urobilinogen Qn (U) 0.2 {Lidya'U}/dL Normal 0.0-1.0 [facility] Comment on above: Performed By: #### 1 0983386 #### [facility] [address] [place] [address] WBC Auto Ql (U) Negative Normal Negative [facility] Comment on above: Performed By: #### 1 9322330 #### [facility] [address] [place] [address] WBC LM.HPF (Urine sed) [#/Area] 0-5 Normal 0-5 [facility] Comment on above: Performed By: #### 1 9324225 #### [facility] [address] [place] [address] eGFRon 05-11-2023 eGFR 111 mL/min/1.73 m2 Normal >=59 [facility] Comment on above: Order Comment: Order added by Discern Expert. Performed By: #### 2 289872, [id number], [id number] ####[facility] [address] [place] [address] ED Note-Physicianon 11-01-19 ED Note-Physician Basic Information Time Seen: Promise Loco PA-C 10/28/2022 16:40 Chief Complaint Patient presents from doctors officer with flank pain and at the [facility] BP was in the 80's. Patient vebralized [...] Code status: (more content not included)... Normal [facility] Comment on above: Result Comment: Elec tronically Signed By: Promise Loco PA-C\.graham\Date and Time Signed: 10/29/22 01:47 EDT\.br\Electronically Co-Signed By: Naheed Rangel DO.graham\Date and Time Co-Signed: 10/31/22 07:21 EDT Auto Diffon 10-28-2022 Basophils/100 WBC (Bld) 0.5 % Normal 0.0-2.0 [facility] Comment on above: Order Comment: Order Added by Discern Expert. Performed By: #### 1 [id number] #### [facility] [address] [place] [address] Basophils/Leukocytes Auto (Bld) [Pure # fraction] 0.1 E9/L Normal 0.0-0.2 [facility] Comment on above: Order Comment: Order Added by Discern Expert. Performed By: #### 1 [id number] #### [facility] [address] [place] [address] Eosinophils/100 WBC (Bld) 0.9 % Normal 0.0-8.0 [facility] Comment on above: Order Comment: Order Added by Foz[employer] Expert. Performed By: #### 1 [id number] #### [facility] [address] [place] [address] Eosinophils/Leukocytes Auto (Bld) [Pure # fraction] 0.1 E9/L Normal 0.0-0.5 [facility] Comment on above: Order Comment: Order Added by Fozia Expert. Performed By: #### 1 [id number] #### [facility] [address] [place] [address] Lymphocytes/100 WBC (Bld) 25.9 % Normal 14.0-50.0 [facility] Comment on above: Order Comment: Order Added by Discern Expert. Performed By: #### 1 [id number] #### [facility] [address] [place] [address] Lymphocytes/Leukocytes Auto (Bld) [Pure # fraction] 2.7 E9/L Normal 1.0-4.0 [facility] Comment on above: Order Comment: Order Added by Discern Expert. Performed By: #### 1 [id number] #### [facility] [address] [place] [address] Monocytes/100 WBC (Bld) 5.3 % Normal 4.0-14.0 [facility] Comment on above: Order Comment: Order Added by Discern Expert. Performed By: #### 1 [id number] #### [facility] [address] [place] [address] Monocytes/Leukocytes Auto (Bld) [Pure # fraction] 0.6 E9/L Normal 0.2-1.0 [facility] Comment on above: Order Comment: Order Added by Discern Expert. Performed By: #### 1 [id number] #### [facility] [address] [place] [address] Neutrophils/100 WBC (Bld) 67.4 % Normal 36.0-75.0 [facility] Comment on above: Order Comment: Order Added by Discern Expert. Performed By: #### 1 [id number] #### [facility] [address] [place] [address] Neutrophils/Leukocytes Auto (Bld) [Pure # fraction] 7.0 E9/L Normal 2.0-7.5 [facility] Comment on above: Order Comment: Order Added by Discern Expert. Performed By: #### 1 [id number] #### [facility] [address] [place] [address] CBC w/ Auto Diffon 3 Erythrocyte distribution width (RBC) [Ratio] 14.6 % High 10.9-14.2 [facility] Comment on above: Performed By: #### 1 [id number] #### [facility] [address] [place] [address] Hematocrit (Bld) [Volume fraction] 48.3 % High 34.0-46.0 [facility] Comment on above: Performed By: #### 1 [id number] #### [facility] [address] [place] [address] Hemoglobin (Bld) [Mass/Vol] 16.0 g/dL Normal 12.0-16.0 [facility] Comment on above: Performed By: #### 1 [id number] #### [facility] [address] [place] [address] MCH (RBC) [Entitic mass] 29.4 pg Normal 27.0-34.0 [facility] Comment on above: Performed By: #### 1 [id number] #### [facility] [address] [place] [address] MCHC (RBC) [Mass/Vol] 33.1 g/dL Normal 31.4-36.0 [facility] Comment on above: Performed By: #### 1 [id number] #### [facility] [address] [place] [address] MCV (RBC) [Entitic vol] 88.9 fL Normal 80.0-100.0 [facility] Comment on above: Performed By: #### 1 [id number] #### [facility] [address] [place] [address] Platelet mean volume (Bld) [Entitic vol] 8.6 fL Normal 6.4-10.8 [facility] Comment on above: Performed By: #### 1 [id number] #### [facility] [address] [place] [address] Platelets (Bld) [#/Vol] 237.0 E9/L Normal 150.0-500.0 [facility] Comment on above: Performed By: #### 1 [id number] #### [facility] [address] [place] [address] RBC (Bld) [#/Vol] 5.4 E12/L Normal 4.3-5.9 [facility] Comment on above: Performed By: #### 1 [id number] #### [facility] [address] [place] [address] WBC corrected for nucl RBC Auto (Bld) [#/Vol] 10.4 E9/L Normal 4.0-11.0 [facility] Comment on above: Performed By: #### 1 [id number] #### [facility] [address] [place] [address] CHEMISTRYOrdered By: SYSTEM SYSTEM on 10-28-2022 Albumin [Mass/Vol] 4.6 g/dL Normal 3.3 - 5.0 gm/dL [facility] Remisol Albumin/Globulin [Mass ratio] 1.4 {ratio} Normal [...] 73 mL/min/1.73 m2 Normal >=59mL/min/1 .73 m2 [facility] Chem S Globulin (S) [Mass/Vol] 3.4 g/dL Normal 1.4 - 4.0 gm/dL FT Remisol Glucose [Mass/Vol] 98 mg/dL Normal 55 - 199 mg/dL FT [facility] Potassium [Moles/Vol] 5.0 mmol/L Normal 3.5 [...] 10-28-2022 Albumin [Mass/Vol] 4.6 g/dL Normal 3.3-5.0 [facility] Comment on above: Performed By: #### 1 [id number] #### [facility] [address] [place] [address] Albumin/Globulin (S) [Mass conc ratio] 1.4 Normal 1.1-2.2 [facility] Comment on above: Performed By: #### 1 [id number] #### [facility] [address] [place] [address] ALP [Catalytic activity/Vol] 110 Int._Unit/L High 21-98 [facility] Comment on above: Performed By: #### 1 [id number] #### [facility] [address] [place] [address] ALT No additional P-5'-P [Catalytic activity/Vol] 16 Int._Unit/L Normal 6-46 [facility] Comment on above: Performed By: #### 1 [id number] #### [facility] [address] [place] [address] AST [Catalytic activity/Vol] 24 Int._Unit/L Normal 5-43 [facility] Comment on above: Performed By: #### 1 [id number] #### [facility] [address] [place] [address] Bilirubin [Mass/Vol] 0.7 mg/dL Normal 0.0-1.1 [facility] Comment on above: Performed By: #### 1 [id number] #### [facility] [address] [place] [address] Creatinine [Mass/Vol] 1.0 mg/dL Normal 0.5-1.3 [facility] Comment on above: Performed By: #### 1 [id number] #### [facility] [address] [place] [address] Globulin (S) [Mass/Vol] 3.4 g/dL Normal 1.4-4.0 [facility] Comment on above: Performed By: #### 1 [id number] #### [facility] [address] [place] [address] Protein [Mass/Vol] 8.0 g/dL High 6.0-7.8 [facility] Comment on above: Performed By: #### 1 [id number] #### [facility] [address] [place] [address] Urea nitrogen [Mass/Vol] 22 mg/dL High 5-21 [facility] Comment on above: Performed By: #### 1 [id number] #### [facility] [address] [place] [address] Urea nitrogen/Creatinine [Mass ratio] 22 No Units High 10-20 [facility] Comment on above: Performed By: #### 1 [id number] #### [facility] [address] [place] [address] Anion gap [Moles/Vol] 13 mmol/L Normal 6-16 [facility] Comment on above: Performed By: #### 1 [id number] #### [facility] [address] [place] [address] Calcium [Mass/Vol] 10.2 mg/dL Normal 8.9-11.1 [facility] Comment on above: Performed By: #### 1 0030420 #### [facility] [address] [place] [address] Chloride [Moles/Vol] 106 mmol/L Normal 101-111 [facility] Comment on above: Performed By: #### 1 [id number] #### [facility] [address] [place] [address] CO2 [Moles/Vol] 25 mmol/L Normal 21-31 [facility] Comment on above: Performed By: #### 1 [id number] #### [facility] [address] [place] [address] Glucose [Mass/Vol] 98 mg/dL Normal 55-199 [facility] Comment on above: Result Comment: If t his glucose result represents a fasting glucose, interpretation should refer to the following reference range: 55-99 mg/dL Performed By: #### 1 [id number] #### [facility] [address] [place] [address] Potassium [Moles/Vol] 5.0 mmol/L Normal 3.5-5.3 [facility] Comment on above: Performed By: #### 1 [id number] #### Doc [facility] [address] [place] [address] Sodium [Moles/Vol] 139 mmol/L Normal 135-145 [facility] Comment on above: Performed By: #### 1 [id number] #### Doc [facility] [address] [place] [address] CT Abdomen/Pelvis w/o Contra ston 10-28-2022 CT [...] Oral contrast amount in ml's: 0 Normal [facility] Consent for Treatmenton 10-14 Consent for Treatment [id number]:127 Normal [facility] Discharge Instructionson Discharge Instructions [id number]:127 Normal [facility] ED Clinical Summaryon 2022 ED Clinical Summary [place] [id number] ED Clinical Summary Person Information Name: TISH VARGAS [facility] Age: 42 Years : 1980 Sex: Female Language: Prydeinig PCP: YANET JUNIOR CNP Marital Status: Visit Id: Visit Reason: [...] 18:55:13 10/28/2022 18:55:13 AD[address]ESS: [address] [facility] [place] [id number] [facility] DOC NOTES: MEDICAL INFORMATION: Prescriptions Given: Medications [...] for Kidney Stones, Care After; Kidney Stones, Drij-mw-Wnxy; Flank Pain, Adult, Fqbd-oq-Ivca Follow up: With: Address: When: [place] [facility], [address] [place] [address] Business (1) In 3 d (more content not included)... Normal [facility] ED Patient Education Noteon 10-28-2022 ED [...] including vitamins, herbs, eye drops, creams, and icvw-huz-hhbjmex medicines. ? Any problems you or family [...] tells you to take them. ? Taking ihbl-hgi-qvsislx medicines, vitamins, herbs, and supplements. Tests You [...] safe. Summary (more content not included)... Normal [facility] ED Patient Summaryon 023 ED Patient Summary [address] [address] Patient Discharge Instructions Person Information Name: TISH VARGAS Age: 42 Years Arrival Date: 10/28/2022 15:04:47 Discharge Diagnosis: 1:Lt flank pain Primary Care Physician: YANET JUNIOR CNP Provider Information Primary Provider: Gunnar Rangel DO Advanced Artificial Plastic Eye Maker:None The exam and treatment you received in the Emergency Department were for an urgent problem and are not intended as complete care. It is important that you follow up with a doctor, nurse practitioner, or physician?s anesthesia assistant for ongoing care. If your symptoms [...] Follow-up Instructions: With: Address: When: [place] [facility], [address] [place] [address] Business (1) In 3 days 10/31/2022 With: Address: When: YANET JUNIOR [address], [place] [phone] Business (1) In 3 days In the event that this physician does not participate in your insurance network, please consult with your insurance company to find a nearby participating provider. Patient Education Materials: Lithotripsy; Laser Therapy for Kidney Stones, Care After; Kidney Stones, Qlbv-vs-Vecq; Flank Pain, Adult, Lbgi-vq-Zraf A MESSAGE TO ALL PATIENTS REGARDING OPIOIDS PRESCRIPTION OPIOIDS: WHAT YOU NEED TO KNOW Prescription opioids can be used to help relieve vjcclery-jn-iwebxa pain and are often prescribed following a [...] learn ab (more content not included)... Normal [facility] HEMATOLOGYOrdered By: SYSTEM SYSTEM on 10-28-2022 Basophils/100 WBC (Bld) 0.5 % Normal 0.0 - 2.0 % [facility] HemeAutoSS Basophils/Leukocytes Auto (Bld) [Pure # fraction] [...] 237.0 E9/L Normal 150.0 - 500.0 E9/L [facility] HemeAutoSS RBC (Bld) [#/Vol] 5.4 E12/L Normal 4.3 - 5.9 E12/L [facility] HemeAutoSS WBC corrected for nucl RBC Auto (Bld) [#/Vol] 10.4 E9/L Normal 4.0 - 11.0 E9/L [facility] HemeAutoSS UA With Cult Reflexon 2022 Bacteria LM Ql (Urine sed) 1+ /HPF Abnormal Trace [facility] Comment on above: Performed By: #### 1 [id number] #### [facility] [address] [place] [address] Bilirubin Ql (U) Negative Normal Negative [facility] Comment on above: Performed By: #### 1 [id number] #### [facility] [address] [place] [address] Clarity (U) CLOUDY Abnormal Clear [facility] Comment on above: Performed By: #### 1 [id number] #### [facility] [address] [place] [address] Color (U) YELLOW Normal Yellow [facility] Comment on above: Performed By: #### 1 2109988 #### [facility] [address] [place] [address] Epithelial cells.squamous LM.HPF (Urine sed) [#/Area] /[HPF] Normal 0-2 [facility] Comment on above: Performed By: #### 1 [id number] #### [facility] [address] [place] [address] Glucose Test strip (U) [Mass/Vol] 3+ Abnormal Negative [facility] Comment on above: Performed By: #### 1 [id number] #### [facility] [address] [place] [address] Hemoglobin Ql (U) 3+ Abnormal Negative [facility] Comment on above: Performed By: #### 1 [id number] #### [facility] [address] [place] [address] Ketones (U) [Mass/Vol] TRACE Abnormal Negative [facility] Comment on above: Performed By: #### 1 [id number] #### [facility] [address] [place] [address] Muddy.plasma/Muddy .RBC (Bld) [Mass ratio] 21-30 Abnormal 0-3 [facility] Comment on above: Performed By: #### 1 [id number] #### [facility] [address] [place] [address] Mucus Ql (Urine sed) 1+ Normal [facility] Comment on above: Performed By: #### 1 [id number] #### [facility] [address] [place] [address] Nitrite Ql (U) Negative Normal Negative [facility] Comment on above: Performed By: #### 1 [id number] #### [facility] [address] [place] [address] pH (U) 5.5 [pH] Invalid Interpretation Code 5.0-9.0 [facility] Comment on above: Performed By: #### 1 [id number] #### [facility] [address] [place] [address] Protein (U) [Mass/Vol] Negative Normal Negative [facility] Comment on above: Performed By: #### 1 [id number] #### [facility] [address] [place] [address] Specific gravity (U) [Rel density] >=1.030 Invalid Interpretation Code 1.005-1.030 [facility] Comment on above: Performed By: #### 1 [id number] #### [facility] [address] [place] [address] Type of Urine collection method Clean Catch Normal [facility] Comment on above: Performed By: #### 1 [id number] #### [facility] [address] [place] [address] Urobilinogen Qn (U) 1.0 {Lidya'U}/dL Normal 0.0-1.0 [facility] Comment on above: Performed By: #### 1 [id number] #### [facility] [address] [place] [address] WBC Auto Ql (U) Negative Normal Negative [facility] Comment on above: Performed By: #### 1 [id number] #### [facility] [address] [place] [address] WBC LM.HPF (Urine sed) [#/Area] 0-5 Normal 0-5 [facility] Comment on above: Performed By: #### 1 [id number] #### [facility] [address] [place] [address] URINALYSISOrdered By: Elliott Still on 10-28-2022 Bacteria [...] Interpretation Code Negative [facility] UA Auto SS Muddy.plasma/Muddy .RBC (Bld) [Mass ratio] 21-30 /HPF Invalid Interpretation Code 0-3/HPF [facility] UA Auto SS Mucus Ql (Urine sed) 1+ (10/28/22 4:54 PM) Normal [facility] UA Auto SS Nitrite Ql (U) Negative (10/28/22 4:54 PM) Normal Negative [facility] UA Auto SS pH (U) 5.5 *NA* (10/28/22 4:54 PM) Invalid Interpretation Code 5.0 - 9.0 [facility] UA Auto SS Protein (U) [Mass/Vol] Negative (10/28/22 4:54 PM) Normal Negative [facility] UA Auto SS Specific gravity (U) [Rel density] >=1.030 *NA* (10/28/22 4:54 PM) Invalid Interpretation Code 1.005 - 1.030 [facility] UA Auto SS UA Spec Desc Clean Catch (10/28/22 4:54 PM) Normal [facility] UA Auto SS Urobilinogen Qn (U) 1.9460514 {Lidya'U}/dL Normal 0.0 - 1.0 EU/dL [facility] UA Auto SS WBC Auto Ql (U) Negative (10/28/22 4:54 PM) Normal Negative [facility] UA Auto SS WBC LM.HPF (Urine sed) [#/Area] 0-5 /HPF Normal 0-5/HPF [facility] UA Auto SS eGFRon 10-28-2022 GFR/1.73 sq M.predicted among non-blacks MDRD (S/P/Bld) [Vol rate/Area] 73 mL/min/1.73 m2 Normal >=59 [facility] Comment on above: Order Comment: Order added by Discern Expert. Result Comment: [employer] Coach jose kidney disease could be indicated at eGFR's of less than 60 mL/min/1.73m2. Kidney failure is indicated at less than 15 mL/min/1.73m2. Performed By: #### 1 [id number] #### [facility] [address] [place] [address] ED Note-Physicianon 10-28-19 ED Note-Physician Basic Information [...] and Complexity of Problems Differential Diagnosis: [] [facility] Data External documents reviewed: [] My [...] was ready to go. Discussed follow-up with insurance verification specialist. Discussed follow-up with urologist. Patient will be discharged home on pain medicine, nausea med (more content not included)... Normal [facility] Comment on above: Result Comment: Elec tronically Signed By: Joseph Kent PA-C\.br\Date and Time Signed: 10/25/22 11:27 EDT\.br\Electronically Co-Signed By: Gunnar Rangel DO\.br\Date and Time Co-Signed: 10/27/22 07:42 EDT [id number] 10-26-2022 HbA1c (Bld) [Mass fraction] 6.0 % High <=5.9 [facility] Comment on above: Performed By: #### 2 805345, [id number], 02430462, 0937577 #### [facility] [address] [place] [address] Auto Diffon 10-25-2022 Basophils/100 WBC (Bld) 0.7 % Normal 0.0-2.0 [facility] Comment on above: Order Comment: Order Added by Discern Expert. Performed By: #### 2 863927, 90237364, 50222689, 8995792, 3048774, 18461476, 6813812, 6537017, 70121984 #### [facility] [address] [place] [address] Basophils/Leukocytes Auto (Bld) [Pure # fraction] 0.1 E9/L Normal 0.0-0.2 [facility] Comment on above: Order Comment: Order Added by Discern Expert. Performed By: #### 2 578105, 37267980, 95640145, 8331766, 8974276, 59207166, 7901127, 7288136, 94117030 #### [facility] [address] [place] [address] Eosinophils/100 WBC (Bld) 2.9 % Normal 0.0-8.0 [facility] Comment on above: Order Comment: Order Added by Discern Expert. Performed By: #### 2 311269, 29264731, 43305845, 9507675, 4764443, 65124714, 4154927, 6804992, 54863078 #### [facility] [address] [place] [address] Eosinophils/Leukocytes Auto (Bld) [Pure # fraction] 0.2 E9/L Normal 0.0-0.5 [facility] Comment on above: Order Comment: Order Added by Discern Expert. Performed By: #### 2 006101, 08753344, 84146951, 2179249, 6468963, 67807554, 5892245, 4571130, 62454595 #### [facility] [address] [place] [address] Lymphocytes/100 WBC (Bld) 26.6 % Normal 14.0-50.0 [facility] Comment on above: Order Comment: Order Added by Discern Expert. Performed By: #### 2 917708, 38911852, 21503074, 2680865, 9557199, 41949714, 1969810, 4193122, 23232138 #### [facility] [address] [place] [address] Lymphocytes/Leukocytes Auto (Bld) [Pure # fraction] 2.3 E9/L Normal 1.0-4.0 [facility] Comment on above: Order Comment: Order Added by Discern Expert. Performed By: #### 2 142132, 27966847, 06621194, 1780012, 1836427, 05023993, 5642467, 3989812, 72931112 #### [facility] [address] [place] [address] Monocytes/100 WBC (Bld) 4.9 % Normal 4.0-14.0 [facility] Comment on above: Order Comment: Order Added by Discern Expert. Performed By: #### 2 908947, 05127531, 56143326, 0763483, 7816201, 01047011, 4542375, 1917999, 16276940 #### [facility] [address] [place] [address] Monocytes/Leukocytes Auto (Bld) [Pure # fraction] 0.4 E9/L Normal 0.2-1.0 [facility] Comment on above: Order Comment: Order Added by Discern Expert. Performed By: #### 2 872590, 90144944, 62258769, 7252326, 4713444, 65792687, 1623874, 1019793, 33398373 #### [facility] [address] [place] [address] Neutrophils/100 WBC (Bld) 64.9 % Normal 36.0-75.0 [facility] Comment on above: Order Comment: Order Added by Discern Expert. Performed By: #### 2 926378, 42809513, 02916024, 8467729, 1256980, 59730146, 9336488, 6567427, 42833130 #### [facility] [address] [place] [address] Neutrophils/Leukocytes Auto (Bld) [Pure # fraction] 5.5 E9/L Normal 2.0-7.5 [facility] Comment on above: Order Comment: Order Added by Discern Expert. Performed By: #### 2 725449, 31229582, 75439897, 9489998, 0955981, 14364892, 1089738, 0256738, 13237716 #### [facility] [address] [place] [address] B hCG Qualon 10-25-2022 Beta hCG Ql Negative Normal [facility] Comment on above: Performed By: #### 2 036438, 12955019, 73498168, 4949805, 6756193, 52712405, 3577356, 6000230, 13030388 ####[facility] [address] [place] [address] BMPon 10-25-2022 Creatinine [Mass/Vol] 1.0 mg/dL Normal 0.5-1.3 [facility] Comment on above: Performed By: #### 2 120902, 65826515, 96219275, 1935323, 9013443, 20005231, 7259616, 3197093, 61236103 ####[facility] [address] [place] [address] Urea nitrogen [Mass/Vol] 19 mg/dL Normal 5-21 [facility] Comment on above: Performed By: #### 2 055925, 87450951, 15489374, 3245624, 5312817, 13436321, 9777503, 5660069, 35444552 ####[facility] [address] [place] [address] Urea nitrogen/Creatinine [Mass ratio] 19 No Units Normal 10-20 [facility] Comment on above: Performed By: #### 2 754143, 29321224, 12780307, 1105438, 7358964, 43087864, 8508840, 9308392, 34563098 ####[facility] [address] [place] [address] Anion gap [Moles/Vol] 13 mmol/L Normal 6-16 [facility] Comment on above: Performed By: #### 2 540682, 45789747, 13241512, 2765911, 8049921, 97565084, 4609543, 3409997, 92571710 ####[facility] [address] [place] [address] Calcium [Mass/Vol] 9.7 mg/dL Normal 8.9-11.1 [facility] Comment on above: Performed By: #### 2 329814, 25512067, 81927472, 9388196, 0577007, 56412540, 9062761, 0492850, 29965829 ####[facility] [address] [place] [address] Chloride [Moles/Vol] 107 mmol/L Normal 101-111 [facility] Comment on above: Performed By: #### 2 744196, 80662036, 20759001, 9085706, 5012904, 73213154, 4172325, 1380586, 34030582 ####[facility] [address] [place] [address] CO2 [Moles/Vol] 24 mmol/L Normal 21-31 [facility] Comment on above: Performed By: #### 2 508840, 54989713, 40687126, 3308479, 3022256, 37097585, 6776483, 2798397, 71832551 ####[facility] [address] [place] [address] Glucose [Mass/Vol] 98 mg/dL Normal 55-199 [facility] Comment on above: Result Comment: If t his glucose result represents a fasting glucose, interpretation should refer to the following reference range: 55-99 mg/dL Performed By: #### 2 743158, 50355664, 31433453, 6558161, 0984582, 08276846, 8707554, 1116496, 75907824 ####[facility] [address] [place] [address] Potassium [Moles/Vol] 4.1 mmol/L Normal 3.5-5.3 [facility] Comment on above: Performed By: #### 2 963733, 62610414, 69024074, 2410098, 0899620, 28695398, 6428188, 8144127, 86116203 ####[facility] [address] [place] [address] Sodium [Moles/Vol] 140 mmol/L Normal 135-145 [facility] Comment on above: Performed By: #### 2 016437, 66495480, 86319860, 3508053, 7796769, 36261131, 0928381, 8329961, 42415543 ####[facility] [address] [place] [address] CBC w/ Auto Diffon 3 Erythrocyte distribution width (RBC) [Ratio] 14.7 % High 10.9-14.2 [facility] Comment on above: Performed By: #### 2 731007, 23787976, 67358531, 8929634, 9881929, 12581394, 0710226, 6374088, 40225346 #### [facility] [address] [place] [address] Hematocrit (Bld) [Volume fraction] 44.2 % Normal 34.0-46.0 [facility] Comment on above: Performed By: #### 2 418036, 33740357, 24653128, 3818735, 3753785, 20325941, 7705321, 0235464, 13501441 #### [facility] [address] [place] [address] Hemoglobin (Bld) [Mass/Vol] 14.8 g/dL Normal 12.0-16.0 [facility] Comment on above: Performed By: #### 2 277381, 30464193, 43274781, 7722654, 8558017, 26836717, 3138686, 5348864, 91088435 #### [facility] [address] [place] [address] MCH (RBC) [Entitic mass] 29.7 pg Normal 27.0-34.0 [facility] Comment on above: Performed By: #### 2 976256, 49392800, 76490782, 6833896, 3273541, 43230949, 1432450, 0857533, 89871683 #### [facility] [address] [place] [address] MCHC (RBC) [Mass/Vol] 33.4 g/dL Normal 31.4-36.0 [facility] Comment on above: Performed By: #### 2 920011, 30016096, 52786307, 7765367, 6427137, 04587448, 3227660, 4721960, 70966277 #### [facility] [address] [place] [address] MCV (RBC) [Entitic vol] 88.9 fL Normal 80.0-100.0 [facility] Comment on above: Performed By: #### 2 704212, 52767323, 39516112, 9433356, 7685570, 83236875, 9536950, 2626102, 01750682 #### [facility] [address] [place] [address] Platelet mean volume (Bld) [Entitic vol] 8.7 fL Normal 6.4-10.8 [facility] Comment on above: Performed By: #### 2 726500, 91938713, 08273310, 0393865, 0151655, 37595899, 0199671, 9257258, 37839289 #### [facility] [address] [place] [address] Platelets (Bld) [#/Vol] 207.0 E9/L Normal 150.0-500.0 [facility] Comment on above: Performed By: #### 2 718378, 67046857, 09842724, 2346301, 9055615, 69110804, 4449109, 6083698, 35385874 #### [facility] [address] [place] [address] RBC (Bld) [#/Vol] 5.0 E12/L Normal 4.3-5.9 [facility] Comment on above: Performed By: #### 2 084199, 64841620, 85284596, 1060393, 8220559, 51699175, 3735478, 2620245, 09925941 #### [facility] [address] [place] [address] WBC corrected for nucl RBC Auto (Bld) [#/Vol] 8.5 E9/L Normal 4.0-11.0 [facility] Comment on above: Performed By: #### 2 490442, 75940112, 84510632, 9849416, 1635059, 59093835, 0491545, 9383128, 80268851 #### [facility] [facility] [address] [place] [address] CHEMISTRYOrdered By: SYSTEM SYSTEM on 10-25-2022 Albumin [Mass/Vol] 4.3 g/dL Normal 3.3 - 5.0 gm/dL FT Remisol Albumin/Globulin [Mass ratio] 1.3 {ratio} Normal [...] 73 mL/min/1.73 m2 Normal >=59mL/min/1 .73 m2 [facility] Chem S Globulin (S) [Mass/Vol] 3.2 g/dL [...] 140 mmol/L Normal 135 - 145 mmol/L [facility] Remisol Troponin I.cardiac [Mass/Vol] pg/mL Low 10.10 - 27.10 pg/mL [facility] Remisol Urea nitrogen [Mass/Vol] 19 mg/dL Normal 5 - 21 mg/dL [facility] Remisol Urea nitrogen/Creatinine [Mass ratio] 19 mg/mg Normal 10 - 20 FT Remisol CMPon 10-25-2022 Albumin [Mass/Vol] 4.3 g/dL Normal 3.3-5.0 [facility] Comment on above: Performed By: #### 2 786648, [id number], 97423264, 5284937 #### [facility] [address] [place] [address] Albumin/Globulin (S) [Mass conc ratio] 1.3 Normal 1.1-2.2 [facility] Comment on above: Performed By: #### 2 682622, 125964618, 83274643, 4052276 #### [facility] [address] [place] [address] ALP [Catalytic activity/Vol] 111 Int._Unit/L High 21-98 [facility] Comment on above: Performed By: #### 2 396139, 676845443, 48513446, 6447224 #### [facility] [address] [place] [address] ALT No additional P-5'-P [Catalytic activity/Vol] 16 Int._Unit/L Normal 6-46 [facility] Comment on above: Performed By: #### 2 392147, 643922236, 79179557, 1799344 #### [facility] [address] [place] [address] Anion gap [Moles/Vol] 11 mmol/L Normal 6-16 [facility] Comment on above: Performed By: #### 2 406740, 455752163, 61728036, 2864479 #### [facility] [address] [place] [address] AST [Catalytic activity/Vol] 23 Int._Unit/L Normal 5-43 [facility] Comment on above: Performed By: #### 2 920112, 716714671, 48665789, 3053912 #### [facility] [address] [place] [address] Bilirubin [Mass/Vol] 0.4 mg/dL Normal 0.0-1.1 [facility] Comment on above: Performed By: #### 2 538245, 444050517, 83599321, 8772514 #### [facility] [address] [place] [address] Calcium [Mass/Vol] 9.4 mg/dL Normal 8.9-11.1 [facility] Comment on above: Performed By: #### 2 610313, 341123404, 06532185, 1864708 #### [facility] [address] [place] [address] Chloride [Moles/Vol] 106 mmol/L Normal 101-111 [facility] Comment on above: Performed By: #### 2 197660, 080195078, 19800856, 2531945 #### [facility] [address] [place] [address] CO2 [Moles/Vol] 27 mmol/L Normal 21-31 [facility] Comment on above: Performed By: #### 2 984323, 952421543, 05060877, 4477810 #### [facility] [address] [place] [address] Creatinine [Mass/Vol] 1.0 mg/dL Normal 0.5-1.3 [facility] Comment on above: Performed By: #### 2 336974, 311861564, 75727156, 6594207 #### [facility] [address] [place] [address] Globulin (S) [Mass/Vol] 3.2 g/dL Normal 1.4-4.0 [facility] Comment on above: Performed By: #### 2 593759, 291372017, 95801134, 3072606 #### [facility] [address] [place] [address] Glucose [Mass/Vol] 99 mg/dL Normal 55-199 [facility] Comment on above: Result Comment: If t his glucose result represents a fasting glucose, interpretation should refer to the following reference range: 55-99 mg/dL Performed By: #### 2 545144, 354381775, 55844274, 0857061 #### [facility] [address] [place] [address] Potassium [Moles/Vol] 4.8 mmol/L Normal 3.5-5.3 [facility] Comment on above: Performed By: #### 2 654069, 614875561, 67830464, 7218224 #### [facility] [address] [place] [address] Protein [Mass/Vol] 7.5 g/dL Normal 6.0-7.8 [facility] Comment on above: Performed By: #### 2 536563, 273808839, 24106516, 2803182 #### [facility] [address] [place] [address] Sodium [Moles/Vol] 139 mmol/L Normal 135-145 [facility] Comment on above: Performed By: #### 2 888457, 725414345, 68644349, 1606859 #### [facility] [address] [place] [address] Urea nitrogen [Mass/Vol] 19 mg/dL Normal 5-21 [facility] Comment on above: Performed By: #### 2 538008, 587092615, 00898065, 8207164 #### [facility] [address] [place] [address] Urea nitrogen/Creatinine [Mass ratio] 19 No Units Normal 10-20 [facility] Comment on above: Performed By: #### 2 482973, 923719213, 06543307, 3194587 #### [facility] [address] [place] [address] COAGULATIONOrdered By: Flor Walsh on 10-25-2022 aPTT Coag (PPP) [Time] 29.8 s Normal 25.1 - 36.5 second(s) [facility] Auto Coag INR Coag (PPP) [Relative time] 0.9 {INR} Invalid Interpretation Code [facility] Auto Coag PT Coag (PPP) [Time] 9.5 s Normal 9.4 - 1 2.5 second(s) [facility] Auto Coag CT Abdomen/Pelvis w/o Contra ston [...] Oral contrast amount in ml's: 0 Normal [facility] Consent for Treatmenton 10-14 Consent for Treatment [id number]#1 .00CD:127 Normal [facility] Consent for Treatment [id number]#1 .00CD:127 Normal [facility] Discharge Instructionson Discharge Instructions [id number]# 1.00CD:127 Normal [facility] ED Clinical Summaryon 2022 ED Clinical Summary [place] [address] ED Clinical Summary Person Information Name: TISH VARGAS [place] Age: 42 Years : 1980 Sex: Female Language: Prydeinig PCP: YANET JUNIOR CNP Marital Status: Visit Id: Visit Reason: [...] 10/25/2022 12:11:07 10/25/2022 12:11:07 ADDRESS: [address] [facility] [id number] PHYS DOC NOTES: MEDICAL INFORMATION: Prescriptions Given: New Medications [facility]/pharmacy #[id number], [address] [place], [place] [id number], [phone] tamsulosin (Flomax 0.4 mg Cap) 1 Capsules By Mouth every day. Refills: 0. Medications to Continue Taking That Have Changed [facility]/pharmacy #[id number], [address] [place], [place] [id number], [phone] START: acetaminophen-oxycodo ne (acetaminophen-oxycod one 325 mg-5 [...] 1 (more content not included)... Normal [facility] ED Patient Education Noteon 10-25-2022 ED [...] these instructions at home: Medicines ? Take pgpb-rcs-ahkytwp and prescription medicines only as told by [...] Eating a heart-healthy diet. A diet and animal nutritionist (dietitian) can help you to learn healthy [...] Reviewed: 05/16/2021 Elsevier Patient Education ? 2022 [employer]. Urology Kidney Stones Kidney stones are solid, [...] A conditi (more content not included)... Normal [facility] ED Patient Summaryon 023 ED Patient Summary [address] [address] Patient Discharge Instructions Person Information Name: TISH VARGAS Age: 42 Years Arrival Date: 10/25/2022 09:29:31 Discharge Diagnosis: Kidney stone on left side; Nonspecific chest pain Primary Care Physician: YANET JUNIOR CNP Provider Information Primary Provider: Gunnar Rangel DO Advanced Artificial Plastic Eye Maker:None The exam and treatment you received in the Emergency Department were for an urgent problem and are not intended as complete care. It is important that you follow up with a doctor, nurse practitioner, or physician?s anesthesia assistant for ongoing care. If your symptoms become worse or you do not improve as expected and you are unable to reach your usual health care provider, you should return to the Emergency Department. We are available 24 hours a day. ALICIATISH has been given the following list of patient education materials, prescriptions and follow-up instructions: Follow-up Instructions: With: Address: When: Koko Vasquez [address] [place] [address] Business (1) In 3 days 10/28/2022 With: Address: When: [facility], [address], [place] [address] Business (1) In 3 days 10/28/2022 With: Address: When: YANET JUNIOR [address] [place], [place] [phone] Business (1) In 3 days 10/28/2022 Comments: [...] Materials: Kidney Stones; Nonspecific Chest Pain, Adult, Degg-tz-Rjxb A MESSAGE TO ALL PATIENTS REGARDING OPIOIDS PRESCRIPTION OPIOIDS: WHAT YOU NEED TO KNOW Prescription opioids can be used to help relieve zvnviwci-yy-vgcehq pain and are often prescribed following a [...] friends, and (more content not included)... Normal [facility] HEMATOLOGYOrdered By: SYSTEM SYSTEM on 10-25-2022 [...] 64.9 % Normal 36.0 - 75.0 % FT HemeAutoSS Neutrophils/Leukocytes Auto (Bld) [Pure # fraction] 5.5 E9/L Normal 2.0 - 7.5 E9/L FT HemeAutoSS HEMATOLOGYOrdered By: Sangeeta Arroyo on 10-25-2022 Erythrocyte distribution width (RBC) [Ratio] 14.7 % High 10.9 - 14.2 % FT HemeAutoSS Hematocrit (Bld) [Volume fraction] 44.2 % Normal 34.0 - 46.0 % FT HemeAutoSS Hemoglobin (Bld) [Mass/Vol] 14.8 g/dL Normal 12.0 - 16.0 gm/dL FT HemeAutoSS MCH (RBC) [Entitic mass] 29.7 pg Normal 27.0 - 34.0 pg FT HemeAutoSS MCHC (RBC) [Mass/Vol] 33.4 g/dL Normal 31.4 - 36.0 gm/dL FT HemeAutoSS MCV (RBC) [Entitic vol] 88.9 fL Normal 80.0 - 100.0 fL FT HemeAutoSS Platelet mean volume (Bld) [Entitic vol] 8.7 fL Normal 6.4 - 10.8 fL FT HemeAutoSS Platelets (Bld) [#/Vol] 207.0 E9/L Normal 150.0 - 500.0 E9/L FT HemeAutoSS RBC (Bld) [#/Vol] 5.0 E12/L Normal 4.3 - 5.9 E12/L FT HemeAutoSS WBC corrected for nucl RBC Auto (Bld) [#/Vol] 8.5 E9/L Normal 4.0 - 11.0 E9/L FT HemeAutoSS Hep Func Panelon 10-25-2022 Albumin [Mass/Vol] 4.1 g/dL Normal 3.3-5.0 [facility] Comment on above: Performed By: #### 2 499951, 51739929, 97774082, 0401275, 4047030, 65989380, 0859775, 6457904, 98889902 ####[facility] [place] [address] Albumin/Globulin (S) [Mass conc ratio] 1.3 Normal 1.1-2.2 [facility] Comment on above: Performed By: #### 2 532607, 64125469, 84852054, 3253747, 3011472, 97396320, 6412538, 5302074, 87748870 ####[facility] [address] [place] [address] ALP [Catalytic activity/Vol] 112 Int._Unit/L High 21-98 [facility] Comment on above: Performed By: #### 2 824953, 81357518, 51511649, 6563918, 3957430, 63243217, 3631059, 6117551, 47071937 ####[facility] [address] [place] [address] ALT No additional P-5'-P [Catalytic activity/Vol] 16 Int._Unit/L Normal 6-46 [facility] Comment on above: Performed By: #### 2 322837, 68547341, 60108288, 0749332, 9111162, 21637700, 7048521, 2081411, 65133176 ####[facility] [address] [place] [address] AST [Catalytic activity/Vol] 27 Int._Unit/L Normal 5-43 [facility] Comment on above: Performed By: #### 2 981655, 27191337, 02317371, 4513803, 4396508, 76647932, 9639590, 9900848, 80300092 ####[facility] [address] [place] [address] Bilirubin [Mass/Vol] 0.5 mg/dL Normal 0.0-1.1 [facility] Comment on above: Performed By: #### 2 831548, 21984384, 09009897, 8326069, 7158577, 59868281, 5292445, 0370550, 66993035 ####[facility] [address] [place] [address] Bilirubin.direct [Mass/Vol] 0.1 mg/dL Normal 0.1-0.4 [facility] Comment on above: Performed By: #### 2 274971, 87397384, 10081990, 7934019, 0728214, 40824402, 9441393, 9467855, 63492429 ####[facility] [address] [place] [address] Bilirubin.indirect [Mass or moles/Vol] 0.4 mg/dL Normal 0.1-0.9 [facility] Comment on above: Performed By: #### 2 824460, 93831974, 17482602, 0480604, 1043598, 84336500, 5830978, 9830608, 01569422 ####[facility] [address] [place] [address] Globulin (S) [Mass/Vol] 3.2 g/dL Normal 1.4-4.0 [facility] Comment on above: Performed By: #### 2 738668, 80183051, 07378140, 2713261, 1908084, 18718982, 5868495, 1714729, 61933405 ####[facility] [address] [place] [address] Protein [Mass/Vol] 7.3 g/dL Normal 6.0-7.8 [facility] Comment on above: Performed By: #### 2 246380, 50184744, 95062614, 2066185, 1561945, 01172025, 2922323, 7294945, 82419695 ####[facility] [address] [place] [address] Lipase Levelon 10-25-2022 Lipase [Catalytic activity/Vol] 58 U/L Normal 13-58 [facility] Comment on above: Performed By: #### 2 955881, 27615497, 32636909, 3602837, 2704657, 65992229, 2906008, 8702274, 76043670 ####[facility] [address] [place] [address] Lipid Panelon 10-25-2022 Cholesterol [Mass/Vol] 122 mg/dL Normal 120-200 [facility] Comment on above: Performed By: #### 2 837081, 103049985, 69713340, 0024359 #### [facility] [address] [place] [address] Cholesterol in HDL [Mass/Vol] 35 mg/dL Invalid Interpretation Code [facility] Comment on above: Result Comment: HDL > or equal to 60 mg/dL: Low cardiovascular risk HDL < 40 mg/dL : High cardiovascular risk Performed By: #### 2 335964, 981354717, 90631122, 9293303 #### [facility] [address] [place] [address] Cholesterol in LDL [Mass/Vol] 58 mg/dL Normal <=129 [facility] Comment on above: Performed By: #### 2 427215, 148916081, 52635901, 7542625 #### [facility] [address] [place] [address] Cholesterol in VLDL [Mass/Vol] 29 mg/dL Normal 7-40 [facility] Comment on above: Performed By: #### 2 712953, 227693098, 80964439, 1139974 #### [facility] [address] [place] [address] Triglyceride [Mass/Vol] 144 mg/dL Normal <=149 [facility] Comment on above: Performed By: #### 2 097084, 298536783, 77908135, 0031342 #### [facility] [address] [place] [address] PT & PTTon 10-25-2022 aPTT Coag (PPP) [Time] 29.8 second(s) Normal 25.1-36.5 [facility] Comment on above: Result Comment: Para [...] the same coagulation reagent and instrumentation as [facility]. Currently there are no coagulation studies available worldwide for children to 14 days, and no normal ranges. Heparin therapeutic range (represented by Anti-Factor Xa activity of 0.2 - 0.4 U/mL) corresponds to PTT of 56.6 - 109.0 sec. Performed By: #### 2 153548, 41453762, 65027256, 8967116, 1692894, 15389625, 0830184, 4512134, 52828387 ####[facility] [address] [place] [address] INR Coag (PPP) [Relative time] 0.9 {INR} Invalid Interpretation Code [facility] Comment on above: Result Comment: INR results are specifically intended to assess patients stabilized on long-term Anticoagulation therapy suggested INR?s ?Less Intensive Anticoagulation? 2.0 ? 3.0 Conventional Range 3.0 ? 4.5 Performed By: #### 2 793015, 09427524, 85530850, 5766686, 6350920, 40199696, 9492318, 2802341, 13771366 ####[facility] [address] [place] [address] PT Coag (PPP) [Time] 9.5 second(s) Normal 9.4-12.5 [facility] Comment on above: Result Comment: 15 [...] the same coagulation reagent and instrumentation as [facility]. Currently there are no coagulation studies available worldwide for children to 14 days, and no normal ranges. Performed By: #### 2 114370, 29318241, 19167430, 1688204, 2720732, 44753624, 2454992, 1237597, 38754761 ####[facility] [address] [place] [address] Physician Orderon 10-25-2022 Physician Order [id number] .00CD:127 Normal [facility] Physician Order [id number]#1 .00CD:127 Normal [facility] SEROLOGYOrdered By: Marga Walsh on 10-25-2022 Beta hCG Ql Negative (10/25/22 10:02 AM) Normal [facility] Man Sero Troponin 0 Hr.on 10-25-2022 Troponin I.cardiac [Mass/Vol] ng/mL Low 10.10-27.10 [facility] Comment on above: Result Comment: The 95% CI (Confidence Interval) PPV (Positive Predictive Value) for myocardial infarction in females is 38 pg/mL, in males 51 pg/mL. The results should be used in conjunction with clinical conditions of myocardial infarction. (Access High Sensitivity Troponin I Instructions For Use, Meryl Saxon, October 2017) Performed By: #### 2 446538, 64685136, 36973824, 0584877, 4941513, 45898189, 2556027, 4937105, 59198733 ####[facility] [address] [place] [address] UA With Cult Reflexon 2022 Bacteria LM Ql (Urine sed) 1+ /HPF Abnormal Trace [facility] Comment on above: Performed By: #### 1 5002463 #### [facility] [address] [place] [address] Bilirubin Ql (U) Negative Normal Negative [facility] Comment on above: Performed By: #### 1 3266998 #### [facility] [address] [place] [address] Clarity (U) CLEAR Normal Clear [facility] Comment on above: Performed By: #### 1 2178194 #### [facility] [address] [place] [address] Color (U) YELLOW Normal Yellow [facility] Comment on above: Performed By: #### 1 1600084 #### [facility] [address] [place] [address] Epithelial cells.squamous LM.HPF (Urine sed) [#/Area] 5-8 Normal 0-2 [facility] Comment on above: Performed By: #### 1 7681363 #### [facility] [address] [place] [address] Glucose Test strip (U) [Mass/Vol] 3+ Abnormal Negative [facility] Comment on above: Performed By: #### 1 7102043 #### [facility] [address] [place] [address] Hemoglobin Ql (U) 3+ Abnormal Negative [facility] Comment on above: Performed By: #### 1 1912498 #### [facility] [address] [place] [address] Ketones (U) [Mass/Vol] Negative Normal Negative [facility] Comment on above: Performed By: #### 1 3878814 #### [facility] [address] [place] [address] Muddy.plasma/Muddy .RBC (Bld) [Mass ratio] 4-20 Normal 0-3 [facility] Comment on above: Performed By: #### 1 5505761 #### [facility] [address] [place] [address] Mucus Ql (Urine sed) 1+ Normal [facility] Comment on above: Performed By: #### 1 6694374 #### [facility] [address] [place] [address] Nitrite Ql (U) Negative Normal Negative [facility] Comment on above: Performed By: #### 1 0817915 #### [facility] [address] [place] [address] pH (U) 5.5 [pH] Invalid Interpretation Code 5.0-9.0 [facility] Comment on above: Performed By: #### 1 4555143 #### [facility] [address] [place] [address] Protein (U) [Mass/Vol] TRACE Abnormal Negative [facility] Comment on above: Performed By: #### 1 4966128 #### [facility] [address] [place] [address] Specific gravity (U) [Rel density] >=1.030 Invalid Interpretation Code 1.005-1.030 [facility] Comment on above: Performed By: #### 1 9891768 #### [facility] Laboratory [address] [place] [address] Type of Urine collection method Clean Catch Normal [facility] Comment on above: Performed By: #### 1 5756418 #### [facility] [address] [place] [address] Urobilinogen Qn (U) 0.2 {Lidya'U}/dL Normal 0.0-1.0 [facility] Comment on above: Performed By: #### 1 9600251 #### [facility] [address] [place] [address] WBC Auto Ql (U) Negative Normal Negative [facility] Comment on above: Performed By: #### 1 4243134 #### [facility] [address] [place] [address] WBC LM.HPF (Urine sed) [#/Area] 0-5 Normal 0-5 [facility] Comment on above: Performed By: #### 1 0980395 #### [facility] [address] [place] [address] URINALYSISOrdered By: Norma Walsh on 10-25-2022 Bacteria LM Ql (Urine sed) 1+ /HPF Invalid Interpretation Code Trace/HPF [facility] UA Auto SS Bilirubin Ql (U) Negative [...] AM) Normal Negative [facility] UA Auto SS Muddy.plasma/Muddy .RBC (Bld) [Mass ratio] 4-20 /HPF Normal [...] [facility] UA Auto SS Urobilinogen Qn (U) 0.4776279 {Lidya'U}/dL Normal 0.0 - 1.0 EU/dL [facility] [...] mGy = na DAP = na Normal [facility] eGFRon 10-25-2022 GFR/1.73 sq M.predicted among non-blacks MDRD (S/P/Bld) [Vol rate/Area] 73 mL/min/1.73 m2 Normal >=59 [facility] Comment on above: Order Comment: Order added by Discern Expert. Result Comment: [employer] Coach jose kidney disease could be indicated at eGFR's of less than 60 mL/min/1.73m2. Kidney failure is indicated at less than 15 mL/min/1.73m2. Performed By: #### 2 701277, 430719696, 29854573, 3321796 #### [facility] Laboratory [address] [place] [address] GFR/1.73 sq M.predicted among non-blacks MDRD (S/P/Bld) [Vol rate/Area] 73 mL/min/1.73 m2 Normal >=59 [facility] Comment on above: Order Comment: Order added by Discern Expert. Result Comment: High School Sports Coach jose kidney disease could be indicated at eGFR's of less than 60 mL/min/1.73m2. Kidney failure is indicated at less than 15 mL/min/1.73m2. Performed By: #### 2 141662, 30029431, 83788925, 8744339, 8489357, 83144894, 4859874, 4671137, 77728974 ####[facility] [address] [place] [address] Consent for Treatmenton 09-14 Consent for Treatment [id number] .00CD:127 Normal [facility] Physician Referralon 023 Physician Referral [id number] .00CD:127 Normal [facility] Discharge Instructionson Discharge Instructions [id number] 0CD:127 Normal [facility] Consent for Treatmenton 08-14 Consent for Treatment [id number] .00CD:127 Normal [facility] ED Clinical Summaryon 2022 ED Clinical Summary [place] [id number] ED Clinical Summary Person Information [facility]: [facility] 41 [facility] : 1980 Sex: Female Language: Prydeinig PCP: YANET JUNIOR CNP Marital Status: Phone: [phone] Visit Id: Visit Reason: Vaginal pain; Abscess [...] 21:32:25 08/24/2022 21:32:25 AD[address]ESS: [address] [facility] [id number] PHYS DOC NOTES: MEDICAL INFORMATION: Prescriptions Given: New Medications [id number], [address] [place] [id number], [phone] clindamycin (clindamycin 150 mg Cap) 3 Capsules [...] Abscess Follow up: With: Address: When: YANET MIHAELA [address], [place], [place] [phone] Business (1) In 3 days DIAGNOSIS: Abscess Normal [facility] ED Note-Physicianon 08-25-19 ED Note-Physician Basic Information Time Seen: Kevin Nur DO 08/24/2022 19:42 Chief Complaint abscess to groin area today. denies drainage to area. denies body aches or fever. History of Present Illness HPI: Patient is a 41-year-old female past medical history of anxiety, depression, diabetes, [place], hypertension, PCOS who presents the ED for [...] or chills. She has not taken anything kahq-wlv-xsdllkx yet for this today. ROS: Pertinent review [...] and Complexity of Problems Differential Diagnosis: [] [facility] Data External documents reviewed: N/A My [...] day(s), # 63 cap(s), Refills(s) 0, Pharmacy: [id number], 162, cm, 08/24/22 19:24:00 EDT, [...] q8hr Follow-up With When Contact Information YANET MIHAELA In 3 days [address] [place] [phone] Business (1) Additional Instructions: Patient Education Skin Abscess Problem List/Past Medical History Ongoing Abnormal uterine bleeding Anxiety Coronary artery disease Depression Diabetes Diabetic neuropathy Fatty liver GERD (gastroesophageal reflux disease) Hemorrhoids History of [place] (myocardial infarction) HTN (hypertension) Hyperlipidemia Hypertension Insomnia [...] x2, Card (more content not included)... Normal [facility] Comment on above: Result Comment: Elec [...] these instructions at home: Medicines ? Take inqi-bbv-obplfgh and prescription medicines only as told by [...] and water are not available, use hand superannuation funds manager. ? Check your abscess every day for [...] care pro (more content not included)... Normal [facility] ED Patient Summaryon 023 ED Patient Summary [place] [id number] Patient Discharge Instructions Person Information Name: TISH VARGAS Age: 41 Years Arrival Date: 08/24/2022 19:18:12 Discharge Diagnosis: Abscess Primary Care Physician: YANET JUNIOR CNP Provider Information Primary Provider: Kevin Nur DO [employer] Maker:Manuel Chaudhary PA-C The exam and treatment you received in the Emergency Department were for an urgent problem and are not intended as complete care. It is important that you follow up with a doctor, nurse practitioner, or physician?s anesthesia assistant for ongoing care. If your symptoms become worse or you do not improve as expected and you are unable to reach your usual health care provider, you should return to the Emergency Department. We are available 24 hours a day. TISH VARGAS has been given the following list of patient education materials, prescriptions and follow-up instructions: Follow-up Instructions: With: Address: When: YANET JUNIOR [address] [place], [place] [phone] Business (1) In 3 days In the event that this physician does not participate in your insurance network, please consult with your insurance company to find a nearby participating provider. Patient Education Materials: Skin Abscess A MESSAGE TO ALL PATIENTS REGARDING OPIOIDS PRESCRIPTION OPIOIDS: WHAT YOU NEED TO KNOW Prescription opioids can be used to help relieve xfwamrbs-dw-naebpp pain and are often prescribed following a [...] be struggling with addiction, tell your health day care attendant and ask for guidance or call [employer]?S National Helpline at 1-530-574-HELP. v Source: [place] Department of (more content not included)... Normal [facility] CHEMISTRYOrdered By: SYSTEM SYSTEM on 06-30-2022 [...] PM) Normal Negative [facility] UA Auto SS Muddy.plasma/Muddy .RBC (Bld) [Mass ratio] 0-3 /HPF Normal [...] [facility] UA Auto SS Urobilinogen Qn (U) [id number] {Lidya'U}/dL Normal 0.0 - 1.0 EU/dL [facility] UA Auto SS WBC Auto Ql (U) Negative (06/30/22 12:43 PM) Normal Negative [facility] UA Auto SS WBC LM.HPF (Urine sed) [#/Area] 0-5 /HPF Normal 0-5/HPF [facility] UA Auto SS Yeast LM Ql (Urine sed) 1+ (06/30/22 12:43 PM) Normal [facility] UA Auto SS CHEMISTRYOrdered By: Winnie Ordaz on 03-14-2022 HbA1c (Bld) [Mass fraction] 7.6 % High <=5.9% [facility] ChemAutoSS CHEMISTRYOrdered By: SYSTEM SYSTEM on 03-04-2022 Anion gap [Moles/Vol] 15 mmol/L Normal 6 - 16 mEq/L [facility] Remisol Calcium [Mass/Vol] 9.6 mg/dL Normal 8.9 - 11. 1 mg/dL [facility] Remisol Chloride [Moles/Vol] 99 mmol/L Low 101 - 1 11 mmol/L [facility] Remisol CO2 [Moles/Vol] 26 mmol/L Normal 21 - 31 mmol/L [facility] Remisol Creatinine [Mass/Vol] 1.1 mg/dL Normal 0.5 - 1.3 mg/dL [facility] Remisol GFR/1.73 sq M.predicted among blacks MDRD (S/P/Bld) [Vol rate/Area] mL/min/1.73 m2 Normal >=59mL/min/1 .73 m2 [facility] Chem S GFR/1.73 sq M.predicted among non-blacks MDRD (S/P/Bld) [Vol rate/Area] 55 mL/min/1.73 m2 Low >=59mL/min/1 .73 m2 [facility] Chem S Glucose [Mass/Vol] 242 mg/dL High 55 - 199 mg/dL [facility] Remisol Potassium [Moles/Vol] 3.8 mmol/L Normal 3.5 - 5.3 mmol/L [facility] Remisol Sodium [Moles/Vol] 136 mmol/L Normal 135 - 145 mmol/L [facility] Remisol Troponin I.cardiac [Mass/Vol] 4.30 pg/mL Low 10.10 - 27.10 pg/mL [facility] Remisol Urea nitrogen [Mass/Vol] 13 mg/dL Normal 5 - 21 mg/dL [facility] Remisol Urea nitrogen/Creatinine [Mass ratio] 12 mg/mg Normal 10 - 20 [facility] Remisol CHEMISTRYOrdered By: Lab ROP User on 03-04-2022 Glucose [Mass/Vol] 238 mg/dL High 55 - 99 mg/dL [facility] POC Subsection Comment on above: Result Comment: Genie gurrola RN/ POC Device SN [id number] Invalid Interpretation Code [facility] POC Subsection POC User ID [id number] Invalid Interpretation Code [facility] POC Subsection POC Username TIAN MONTANEZ Invalid Interpretation Code [facility] POC Subsection COAGULATIONOrdered By: Ozzy Castillo on 03-04-2022 aPTT Coag (PPP) [Time] 28.9 s Normal 25.1 - 36.5 second(s) [facility] Auto Coag INR Coag (PPP) [Relative time] 0.9 {INR} Invalid Interpretation Code [facility] Auto Coag PT Coag (PPP) [Time] 9.7 s Normal 9.4 - 1 2.5 second(s) [facility] Auto Coag HEMATOLOGYOrdered By: SYSTEM SYSTEM on [...] rate/Area] mL/min/1.73 m2 Normal >=59mL/min/1 .73 m2 [facility] Chem S GFR/1.73 sq M.predicted among non-blacks MDRD (S/P/Bld) [Vol rate/Area] mL/min/1.73 m2 Normal >=59mL/min/1 .73 m2 [facility] Chem S Globulin (S) [Mass/Vol] 2.9 g/dL Normal 1.4 - 4.0 gm/dL [facility] Remisol Glucose [Mass/Vol] 148 mg/dL Normal 55 - 199 mg/dL [facility] Remisol Potassium [Moles/Vol] 3.7 mmol/L Normal 3.5 - 5.3 mmol/L [facility] Remisol Protein [Mass/Vol] 6.8 g/dL Normal 6.0 - 7.8 gm/dL [facility] Remisol Sodium [Moles/Vol] 137 mmol/L Normal 135 - 145 mmol/L [facility] Remisol Urea nitrogen [Mass/Vol] 22 mg/dL High 5 - 21 mg/dL [facility] Remisol Urea nitrogen/Creatinine [Mass ratio] 24 mg/mg [...] AM) Normal Negative [facility] UA Auto SS Muddy.plasma/Muddy .RBC (Bld) [Mass ratio] 0-3 /HPF Normal [...] [facility] UA Auto SS Urobilinogen Qn (U) [id number] {Lidya'U}/dL Normal 0.0 - 1.0 EU/dL [facility] UA Auto SS WBC Auto Ql (U) Negative (10/14/22 2:35 AM) Normal Negative [facility] UA Auto SS WBC LM.HPF (Urine sed) [#/Area] 0-5 /HPF Normal 0-5/HPF [facility] UA Auto SS CHEMISTRYOrdered By: Lab ROP User on 10-10-2021 Glucose [Mass/Vol] 114 mg/dL High 55 - 99 mg/dL [facility] POC Subsection Comment on above: Result Comment: Genie gurrola RN/ POC Device SN [id number] Invalid Interpretation Code [facility] POC Subsection POC User ID [id number] Invalid Interpretation Code [facility] POC Subsection POC Username DALJIT GLORIA Invalid Interpretation Code [facility] POC Subsection Glucose [Mass/Vol] 131 mg/dL High 55 - 99 mg/dL [facility] POC Subsection Comment on above: Result Comment: Genie gurrola RN/ POC Device SN [id number] Invalid Interpretation Code [facility] POC Subsection POC User ID [id number] Invalid Interpretation Code [facility] POC Subsection POC Username TATE GLORIAY Invalid Interpretation Code [facility] POC Subsection CHEMISTRYOrdered By: SYSTEM SYSTEM on 10-10-2021 Cholesterol [Mass/Vol] 138 mg/dL Normal 120 - 200 mg/dL [facility] Remisol Cholesterol in HDL [Mass/Vol] 28 mg/dL Invalid Interpretation Code [facility] Remisol Cholesterol in LDL [Mass/Vol] 71 mg/dL Normal <=129mg/dL [facility] Remisol Cholesterol in VLDL [Mass/Vol] 47 mg/dL High 7 - 40 mg/dL [facility] Remisol Triglyceride [Mass/Vol] 234 mg/dL High <=149mg/dL [facility] Remisol Troponin I.cardiac [Mass/Vol] 3.10 pg/mL Low 10.10 - 27.10 pg/mL [facility] Remisol CHEMISTRYOrdered By: Leigha lewis on 10-10-2021 HbA1c (Bld) [Mass fraction] 7.4 % High <=5.9% [facility] ChemAutoSS CHEMISTRYOrdered By: SYSTEM SYSTEM on 10-09-2021 [...] 200 mg/dL High 55 - 99 mg/dL [facility] POC Subsection Comment on above: Result Comment: Genie gurrola RN/ POC Device SN [id number] Invalid Interpretation Code [facility] POC Subsection POC User ID [id number] Invalid Interpretation Code [facility] POC Subsection POC Username ANDRIALÓPEZ DAVIS Invalid Interpretation Code [facility] POC Subsection CHEMISTRYOrdered By: Pushpa thomas on 10-09-2021 Natriuretic peptide B (Bld) [Mass/Vol] pg/mL Low 5 - 80 pg/mL [facility] HemeManSS COAGULATIONOrdered By: Maira Paulino on 10-09-2021 aPTT Coag (PPP) [Time] 28.4 s Normal 25.1 - 36.5 second(s) [facility] Auto Coag INR Coag (PPP) [Relative time] 0.9 {INR} Invalid Interpretation Code [facility] Auto Coag PT Coag (PPP) [Time] 10.9 s Normal 10.2 - 12.9 second(s) [facility] Auto Coag HEMATOLOGYOrdered By: SYSTEM [...] [facility] HemeAutoSS MICRO OTHER TESTSOrdered By: Maira Paulino on 10-09-2021 Rapid COV Int NEG Ctl [...] 23 mmol/L Normal 21 - 31 mmol/L [facility] Remisol Creatinine [Mass/Vol] 0.9 mg/dL Normal 0.5 - 1.3 mg/dL [facility] Remisol GFR/1.73 sq M.predicted among blacks MDRD (S/P/Bld) [Vol rate/Area] mL/min/1.73 m2 Normal >=59mL/min/1 .73 m2 [facility] Chem S GFR/1.73 sq M.predicted among non-blacks MDRD (S/P/Bld) [Vol rate/Area] mL/min/1.73 m2 Normal >=59mL/min/1 .73 m2 [facility] Chem S Globulin (S) [Mass/Vol] 3.2 g/dL [...] 15 mg/dL Normal 5 - 21 mg/dL [facility] Remisol Urea nitrogen/Creatinine [Mass ratio] 17 mg/mg Normal 10 - 20 [facility] Remisol CHEMISTRYOrdered By: Erum herndon on 07-12-2021 HbA1c (Bld) [Mass fraction] 6.9 % High <=5.9% [facility] ChemAutoSS HEMATOLOGYOrdered By: SYSTEM SYSTEM on 07-12-2021 Basophils/100 WBC (Bld) 0.6 % Normal 0.0 - 2.0 % [facility] HemeAutoSS Basophils/Leukocytes Auto (Bld) [Pure # fraction] 0.0 E9/L Normal 0.0 - 0.2 E9/L [facility] HemeAutoSS Eosinophils/100 WBC (Bld) 2.9 % Normal 0.0 - 8.0 % [facility] [...] AM) Normal Negative [facility] UA Auto SS Muddy.plasma/Muddy .RBC (Bld) [Mass ratio] 0-3 /HPF Normal [...] [facility] UA Auto SS Urobilinogen Qn (U) 0.1634913 {Lidya'U}/dL Normal 0.0 - 1.0 EU/dL [facility] UA Auto SS WBC Auto Ql (U) Negative (07/12/21 9:10 AM) Normal Negative [facility] UA Auto SS WBC LM.HPF (Urine sed) [#/Area] 0-5 /HPF Normal 0-5/HPF [facility] UA Auto SS Yeast LM Ql (Urine sed) Trace (07/12/21 9:10 AM) Normal [facility] UA Auto SS HERPES SIMPLEX VIRUS (HSV) C ULTUREon 12-20-2020 HSV Culture/Type Comment Normal [facility] Comment on above: Result Comment: Nega tive No Herpes simplex virus isolated. Performed By: #### H SVCUL #### [facility] [address] [place] [id number] Kinga Stringer GLYCOHEMOGLOBIN A1Con 2020 ADA RECOMMENDATION ADA THERAPEUTIC TARGET 6.0 - 7.0 ACTION SUGGESTED > 7.0 Normal [facility] Comment on above: Performed By: #### A 1C #### [facility] [address] [place], [place] [id number] Kt Jackie Glucose [Mass/Vol] 148 mg/dL Normal [facility] Comment on above: Performed By: #### A 1C #### [facility] [address] [place] [address] Kt Jackie HbA1c (Bld) [Mass fraction] 6.8 % Critically high <=6.0 [facility] Comment on above: Performed By: #### A 1C #### [facility] [address] [place], [place] [id number] Kt Sladeen PROF CHEM 8 (BAS METB)on Anion gap [Moles/Vol] 13.2 mmol/L Normal [facility] Comment on above: Performed By: #### B MP #### [facility] [address] [place], [place] [id number] Kt Jackie Calcium [Mass/Vol] 9.4 mg/dL Normal 8.4-10.2 [facility] Comment on above: Performed By: #### B MP #### [facility] [address] [place], [place] [id number] Kt Jackie Chloride [Moles/Vol] 101 mmol/L Normal 98-107 [facility] Comment on above: Performed By: #### B MP #### [facility] [address] [id number] Kt Jackie CO2 [Moles/Vol] 30.3 mmol/L Critically high 22.0-30.0 [facility] Comment on above: Performed By: #### B MP #### [facility] [address] [place] [id number] Kt Jackie Creatinine [Mass/Vol] 0.92 mg/dL Normal 0.52-1.04 [facility] Comment on above: Performed By: #### B MP #### [facility] [address] [place] [id number] Kt Jackie EGFR-AF MONGOLIAN >60 Normal >=60 [facility] Comment on above: Performed By: #### B MP #### [facility] [address] [place] [address] Kt Jackie EGFR-NON AF MONGOLIAN >60 Normal >=60 [facility] Comment on above: Performed By: #### B MP #### [facility] [address] [place], [place] [id number] Kt Jackie Glucose [Mass/Vol] 160 mg/dL Critically high 74-106 [facility] Comment on above: Performed By: #### B MP #### [facility] [address] [place], [place] [id number] Kt Jackie Potassium [Moles/Vol] 4.5 mmol/L Normal 3.4-5.0 [facility] Comment on above: Performed By: #### B MP #### [facility] [address] [place] [address] Kt Jackie Sodium [Moles/Vol] 140 mmol/L Normal 137-145 [facility] Comment on above: Performed By: #### B MP #### [facility] [address] [id number] Kt Jackie Urea nitrogen [Mass/Vol] 14.0 mg/dL Normal 7.0-17.0 [facility] Comment on above: Performed By: #### B MP #### [facility] [address] [place], [place] [id number] Kt Jackie Urea nitrogen/Creatinine [Mass ratio] 15.2 mg/mg Normal [facility] Comment on above: Performed By: #### B #### [facility] [address] [place], [place] [id number] Kt Mejia Vital Signs Date Time Vital Sign Value Performing Clinician Facility 10-03-2023 00:39-0400 Diastolic blood pressure 87 mm[Hg] Kevin Liudmila [facility] 10-03-2023 00:39-0400 Heart rate 111 /min Kevin Liudmila [facility] 10-03-2023 00:39-0400 Respiratory rate 18 /min Kevin Liudmila [facility] 10-03-2023 00:39-0400 SaO2% (BldA) [Mass fraction] 98 % Kevin Liudmila [facility] 10-03-2023 00:39-0400 Systolic blood pressure 112 mm[Hg] Kevin Liudmila [facility] 10-03-2023 00:05-0400 Nursing Progress Note Reason Other: requesting additional pain meds Kevin Liudmila [facility] 10-02-2023 23:21-0400 Diastolic blood pressure 83 mm[Hg] Kevin Liudmila [facility] 10-02-2023 23:21-0400 Heart rate 108 /min Kevin Liudmila [facility] 10-02-2023 23:21-0400 Respiratory rate 20 /min Kevin Liudmila [facility] 10-02-2023 23:21-0400 SaO2% (BldA) [Mass fraction] 97 % Kevin Liudmila [facility] 10-02-2023 23:21-0400 Systolic blood pressure 111 mm[Hg] Kevin Liudmila [facility] 10-02-2023 21:39-0400 Body temperature 98.06 [degF] Kevin Liudmila [facility] 10-02-2023 21:39-0400 Diastolic blood pressure 76 mm[Hg] Kevin Liudmila [facility] 10-02-2023 21:39-0400 Heart rate 110 /min Kevin Liudmila [facility] 10-02-2023 21:39-0400 Respiratory rate 20 /min Kevin Liudmila [facility] 10-02-2023 21:39-0400 SaO2% (BldA) [Mass fraction] 99 % Kevin Liudmila [facility] 10-02-2023 21:39-0400 Systolic blood pressure 99 mm[Hg] Kevin Liudmila [facility] 10-02-2023 12:41-0400 Body temperature 98.06 [degF] Juan Clayton [facility] 10-02-2023 12:41-0400 Diastolic blood pressure 79 mm[Hg] Juan Clayton [facility] 10-02-2023 12:41-0400 Heart rate 97 /min Juan Clayton [facility] 10-02-2023 12:41-0400 Respiratory rate 18 /min Juan Clayton [facility] 10-02-2023 12:41-0400 SaO2% (BldA) [Mass fraction] 96 % Juan Clayton [facility] 10-02-2023 12:41-0400 Systolic blood pressure 109 mm[Hg] Juan Clayton [facility] 09-25-2023 08:52-0400 Diastolic blood pressure 79 mm[Hg] Kevin Liudmila [facility] 09-25-2023 08:52-0400 Heart rate 84 /min Kevin Liudmila [facility] 09-25-2023 08:52-0400 Mean blood pressure 91 mm[Hg] Kevin Liudmila [facility] 09-25-2023 08:52-0400 Respiratory rate 18 /min Kevin Liudmila [facility] 09-25-2023 08:52-0400 SaO2% (BldA) [Mass fraction] 95 % Kevin Liudmila [facility] 09-25-2023 08:52-0400 Systolic blood pressure 115 mm[Hg] Kevin Liudmila [facility] 09-25-2023 08:04-0400 Diastolic blood pressure 77 mm[Hg] Kevin Liudmila [facility] 09-25-2023 08:04-0400 Heart rate 89 /min Kevin Liudmila [facility] 09-25-2023 08:04-0400 Mean blood pressure 87 mm[Hg] Kevin Liudmila [facility] 09-25-2023 08:04-0400 Respiratory rate 18 /min Kevin Liudmila [facility] 09-25-2023 08:04-0400 SaO2% (BldA) [Mass fraction] 95 % Kevin Liudmila [facility] 09-25-2023 08:04-0400 Systolic blood pressure 106 mm[Hg] Kevin Liudmila [facility] 09-25-2023 07:10-0400 Diastolic blood pressure 88 mm[Hg] Kevin Liudmila [facility] 09-25-2023 07:10-0400 Heart rate 85 /min Kevin Liudmila [facility] 09-25-2023 07:10-0400 Mean blood pressure 97 mm[Hg] Kevin Liudmila [facility] 09-25-2023 07:10-0400 Respiratory rate 18 /min Kevin Liudmila [facility] 09-25-2023 07:10-0400 SaO2% (BldA) [Mass fraction] 97 % Kevin Liudmila [facility] 09-25-2023 07:10-0400 Systolic blood pressure 116 mm[Hg] Kevin Liudmila [facility] 09-25-2023 07:02-0400 Respiratory rate 18 /min Kevin Liudmila [facility] 09-25-2023 06:36-0400 Body temperature 97.88 [degF] Kevin Liudmila [facility] 09-25-2023 06:36-0400 Heart rate 109 /min Kevin Liudmila [facility] 09-25-2023 06:36-0400 Respiratory rate 16 /min Kevin Liudmila [facility] 08-10-2023 21:45-0400 Diastolic blood pressure 70 mm[Hg] Juan Arnold [facility] 08-10-2023 21:45-0400 Heart rate 67 /min Juan Arnold [facility] 08-10-2023 21:45-0400 Mean blood pressure 86 mm[Hg] Juan Clayton [facility] 08-10-2023 21:45-0400 Respiratory rate 17 /min Juan Clayton [facility] 08-10-2023 21:45-0400 SaO2% (BldA) [Mass fraction] 94 % Juan Clayton [facility] 08-10-2023 21:45-0400 Systolic blood pressure 118 mm[Hg] Juan Clayton [facility] 08-10-2023 21:12-0400 Body temperature 97.88 [degF] Juan Clayton [facility] 08-10-2023 21:12-0400 Diastolic blood pressure 59 mm[Hg] Juan Clayton [facility] 08-10-2023 21:12-0400 Heart rate 74 /min Juan Clayton [facility] 08-10-2023 21:12-0400 Mean blood pressure 71 mm[Hg] Juan Clayton [facility] 08-10-2023 21:12-0400 Respiratory rate 15 /min Juan Clayton [facility] 08-10-2023 21:12-0400 SaO2% (BldA) [Mass fraction] 93 % Juan Clayton [facility] 08-10-2023 21:12-0400 Systolic blood pressure 95 mm[Hg] Juan Clayton [facility] 08-10-2023 20:30-0400 Diastolic blood pressure 56 mm[Hg] Juan Clayton [facility] 08-10-2023 20:30-0400 Heart rate 70 /min Juna Clayton [facility] 08-10-2023 20:30-0400 Mean blood pressure 69 mm[Hg] Juan Arnold [facility] 08-10-2023 20:30-0400 Respiratory rate 11 /min Juan Arnold [facility] 08-10-2023 20:30-0400 SaO2% (BldA) [Mass fraction] 94 % Juan Arnold [facility] 08-10-2023 20:30-0400 Systolic blood pressure 95 mm[Hg] Juan Arnold [facility] 08-10-2023 19:07-0400 Body temperature 98.06 [degF] Juan Arnold [facility] 08-10-2023 19:07-0400 Heart rate 86 /min Juan Arnold [facility] 08-10-2023 19:07-0400 Respiratory rate 20 /min Juan Arnold [facility] 07-30-2023 02:18-0400 Diastolic blood pressure 102 mm[Hg] Shoshanaylinn Dokken [facility] 07-30-2023 02:18-0400 Heart rate 88 /min Kaylinn Dokken [facility] 07-30-2023 02:18-0400 Mean blood pressure 109 mm[Hg] Kaylinn Dokken [facility] 07-30-2023 02:18-0400 SaO2% (BldA) [Mass fraction] 93 % Kaylinn Dokken [facility] 07-30-2023 02:18-0400 Systolic blood pressure 123 mm[Hg] Kaylinn Dokken [facility] 07-30-2023 01:00-0400 Body temperature 97.7 [degF] Kaylinn Dokken [facility] 07-30-2023 01:00-0400 Heart rate 83 /min Kaylinn Dokken [facility] 07-30-2023 01:00-0400 Mean blood pressure 83 mm[Hg] Kaylinn Dokken [facility] 07-30-2023 01:00-0400 SaO2% (BldA) [Mass fraction] 94 % Kaylinn Dokken [facility] 07-30-2023 01:00-0400 Systolic blood pressure 110 mm[Hg] Kaylinn Dokken [facility] 07-30-2023 00:13-0400 Diastolic blood pressure 69 mm[Hg] Kaylinn Dokken [facility] 07-30-2023 00:13-0400 Heart rate 80 /min Kaylinn Dokken [facility] 07-30-2023 00:13-0400 Mean blood pressure 79 mm[Hg] Kaylinn Dokken [facility] 07-30-2023 00:13-0400 Respiratory rate 16 /min Kaylinn Dokken [facility] 07-30-2023 00:13-0400 SaO2% (BldA) [Mass fraction] 96 % Kaylinn Dokken [facility] 07-30-2023 00:13-0400 Systolic blood pressure 100 mm[Hg] Kaylinn Dokken [facility] 07-29-2023 21:29-0400 Body temperature 97.88 [degF] Kaylinn Dokken [facility] 07-29-2023 21:29-0400 Respiratory rate 18 /min Janes Bowles [facility] 05-28-2023 15:00-0400 Diastolic blood pressure 68 mm[Hg] [facility] 05-28-2023 15:00-0400 Heart rate 83 /min [facility] 05-28-2023 15:00-0400 Mean blood pressure 75 mm[Hg] [facility] 05-28-2023 15:00-0400 Systolic blood pressure 90 mm[Hg] [facility] 05-28-2023 14:40-0400 Diastolic blood pressure 64 mm[Hg] [facility] 05-28-2023 14:40-0400 Heart rate 79 /min [facility] 05-28-2023 14:40-0400 Mean blood pressure 76 mm[Hg] [facility] 05-28-2023 14:40-0400 Respiratory rate 16 /min [facility] 05-28-2023 14:40-0400 SaO2% (BldA) [Mass fraction] 94 % [facility] 05-28-2023 14:40-0400 Systolic blood pressure 100 mm[Hg] [facility] 05-28-2023 13:02-0400 Body temperature 98.06 [degF] [facility] 05-28-2023 13:02-0400 Diastolic blood pressure 75 mm[Hg] [facility] 05-28-2023 13:02-0400 Heart rate 77 /min [facility] 05-28-2023 13:02-0400 SaO2% (BldA) [Mass fraction] 97 % [facility] 05-28-2023 13:02-0400 Systolic blood pressure 122 mm[Hg] Mikaela Judd [facility] 10-28-2022 18:54-0400 Diastolic blood pressure 69 mm[Hg] Gunnar Juan Carlos [facility] 10-28-2022 18:54-0400 Heart rate 78 /min Gunnar Juan Carlos [facility] 10-28-2022 18:54-0400 Mean blood pressure 83 mm[Hg] Gunnar Juan Carlos [facility] 10-28-2022 18:54-0400 SaO2% (BldA) [Mass fraction] 98 % Gunnar Juan Carlos [facility] 10-28-2022 18:54-0400 Systolic blood pressure 112 mm[Hg] Gunnar Juan Carlos [facility] 10-28-2022 16:57-0400 Diastolic blood pressure 83 mm[Hg] Gunnar Juan Carlos [facility] 10-28-2022 16:57-0400 Heart rate 84 /min Gunnar Juan Carlos [facility] 10-28-2022 16:57-0400 Mean blood pressure 93 mm[Hg] Gunnar Juan Carlos [facility] 10-28-2022 16:57-0400 SaO2% (BldA) [Mass fraction] 97 % Gunnar Juan Carlos [facility] 10-28-2022 16:57-0400 Systolic blood pressure 114 mm[Hg] Gunnar Juan Carlos [facility] 10-28-2022 15:15-0400 Body temperature 98.06 [degF] Gunnar Juan Carlos [facility] 10-28-2022 15:15-0400 Diastolic blood pressure 68 mm[Hg] Gunnar Juan Carlos [facility] 10-28-2022 15:15-0400 Heart rate 87 /min Gunnar Benjamine [facility] 10-28-2022 15:15-0400 Respiratory rate 18 /min Gunnar Benjamine [facility] 10-28-2022 15:15-0400 SaO2% (BldA) [Mass fraction] 95 % Gunnar Benjamine [facility] 10-28-2022 15:15-0400 Systolic blood pressure 104 mm[Hg] Gunnar Benjamine [facility] 10-25-2022 11:00-0400 Heart rate 75 /min Gunnar Benjamine [facility] 10-25-2022 11:00-0400 Mean blood pressure 82 mm[Hg] Gunnar Benjamine [facility] 10-25-2022 11:00-0400 Respiratory rate 17 /min Gunnar Benjamine [facility] 10-25-2022 11:00-0400 SaO2% (BldA) [Mass fraction] 92 % Gunnar Benjamine [facility] 10-25-2022 11:00-0400 Systolic blood pressure 93 mm[Hg] Gunnar Benjamine [facility] 10-25-2022 09:32-0400 Body temperature 97.7 [degF] Gunnar Juan Carlos [facility] 10-25-2022 09:32-0400 Diastolic blood pressure 76 mm[Hg] Gunnar Juan Carlos [facility] 10-25-2022 09:32-0400 Heart rate 87 /min Gunnar Benjamine [facility] 10-25-2022 09:32-0400 Respiratory rate 18 /min Gunnar Rangel [facility] 10-25-2022 09:32-0400 SaO2% (BldA) [Mass fraction] 94 % Gunnar Ragnel [facility] 10-25-2022 09:32-0400 Systolic blood pressure 104 mm[Hg] Gunnar Rangel [facility] 03-04-2022 20:00-0500 Diastolic blood pressure 82 mm[Hg] Kevin Liudmila [facility] 03-04-2022 20:00-0500 Heart rate 88 /min Kevin Liudmila [facility] 03-04-2022 20:00-0500 Mean blood pressure 87 mm[Hg] Kevin Liudmila [facility] 03-04-2022 20:00-0500 Respiratory rate 29 /min Kevin Liudmila [facility] 03-04-2022 20:00-0500 SaO2% (BldA) [Mass fraction] 93 % Kevin Liudmila [facility] 03-04-2022 20:00-0500 Systolic blood pressure 98 mm[Hg] Kevin Liudmila [facility] 03-04-2022 18:25-0500 Body temperature 98.06 [degF] Kevin Liudmila [facility] 03-04-2022 18:25-0500 Diastolic blood pressure 86 mm[Hg] Kevin Liudmila [facility] 03-04-2022 18:25-0500 Heart rate 102 /min Kevin Liudmila [facility] 03-04-2022 18:25-0500 Respiratory rate 21 /min Kevin Liudmila [facility] 03-04-2022 18:25-0500 SaO2% (BldA) [Mass fraction] 95 % Kevin Liudmila [facility] 03-04-2022 18:25-0500 Systolic blood pressure 137 mm[Hg] Kevin Liudmila [facility] 12-27-2021 02:56-0400 Diastolic blood pressure 68 mm[Hg] Kaylinn Dokken [facility] 12-27-2021 02:56-0400 Heart rate 87 /min Kaylinn Dokken [facility] 12-27-2021 02:56-0400 Mean blood pressure 80 mm[Hg] Kaylinn Dokken [facility] 12-27-2021 02:56-0400 SaO2% (BldA) [Mass fraction] 97 % Kaylinn Dokken [facility] 12-27-2021 02:56-0400 Systolic blood pressure 105 mm[Hg] Kaylinn Dokken [facility] 12-27-2021 01:58-0400 Body temperature 97.52 [degF] Kaylinn Dokken [facility] 12-27-2021 01:58-0400 Diastolic blood pressure 110 mm[Hg] Kaylinn Dokken [facility] 12-27-2021 01:58-0400 Heart rate 94 /min Kaylinn Dokken [facility] 12-27-2021 01:58-0400 Respiratory rate 16 /min Kaylinn Dokken [facility] 12-27-2021 01:58-0400 SaO2% (BldA) [Mass fraction] 99 % Manishazriley Bowles [facility] 12-27-2021 01:58-0400 Systolic blood pressure 157 mm[Hg] Janes Bowles [facility] 10-10-2021 12:00-0400 Hourly Rounding [facility] 10-10-2021 12:00-0400 Promise to Return [facility] 10-10-2021 11:59-0400 gluc 114 mg[facility] 10-10-2021 11:55-0400 Body temperature 97.88 [degF] [facility] 10-10-2021 11:55-0400 Diastolic blood pressure 91 mm[Hg] [facility] 10-10-2021 11:55-0400 Heart rate 78 /min [facility] 10-10-2021 11:55-0400 Mean blood pressure 105 mm[Hg] [facility] 10-10-2021 11:55-0400 SaO2% (BldA) [Mass fraction] 92 % [facility] 10-10-2021 11:55-0400 Systolic blood pressure 133 mm[Hg] [facility] 10-10-2021 11:00-0400 Hourly Rounding [facility] 10-10-2021 11:00-0400 [facility] 10-10-2021 10:18-0400 Blood Pressure Location [facility] 10-10-2021 10:18-0400 Body temperature 97.52 [degF] [facility] 10-10-2021 10:18-0400 BP/Pulse Patient Position [facility] 10-10-2021 10:18-0400 Diastolic blood pressure 81 mm[Hg] [facility] 10-10-2021 10:18-0400 Heart rate 82 /min [facility] 10-10-2021 10:18-0400 Mean blood pressure 93 mm[Hg] [facility] 10-10-2021 10:18-0400 Respiratory rate 18 /min [facility] 10-10-2021 10:18-0400 SaO2% (BldA) [Mass fraction] 94 % [facility] 10-10-2021 10:18-0400 Systolic blood pressure 117 mm[Hg] [facility] 10-10-2021 10:00-0400 Hourly Rounding [facility] 10-10-2021 10:00-0400 Promise to Return [facility] 10-10-2021 09:00-0400 SaO2% (BldA) [Mass fraction] 95 % [facility] 10-10-2021 08:50-0400 Diastolic blood pressure 77 mm[Hg] [facility] 10-10-2021 08:50-0400 Heart rate 80 /min [facility] 10-10-2021 08:50-0400 Systolic blood pressure 120 mm[Hg] [facility] 10-10-2021 08:32-0400 gluc 131 mg/dL [facility] 10-10-2021 07:43-0400 Body temperature 97.52 [degF] [facility] 10-10-2021 07:43-0400 Heart rate 79 /min [facility] 10-10-2021 00:19-0400 [facility] 00:19-0400 BP/Pulse [facility] 23:00-0400 Heart rate 87 /min [facility] 10-09-2021 23:00-0400 Mean blood pressure 78 mm[Hg] [facility] 10-09-2021 21:37-0400 gluc 200 mg/dL [facility] 10-09-2021 21:33-0400 Heart rate 85 /[facility] 10-09-2021 19:23-0400 Mean blood pressure 89 mm[Hg[facility] 18:14-0400 Heart rate 103 /min [facility] 10-09-2021 17:34-0400 Mean blood pressure 88 mm[Hg[facility] 17:34-0400 Respiratory rate 24 /min [facility] 10-09-2021 17:27-0400 Mean blood pressure 93 mm[Hg[facility] 17:27-0400 Respiratory rate 14 /min juliánd [facility] 10-09-2021 16:11-0400 Respiratory rate 16 /min [facility] 10-09-2021 14:15-0400 Heart rate 110 /min [facility] 10-09-2021 14:15-0400 Respiratory rate 18 /min [facility] 06-07-2021 20:36-0400 Body temperature 97.88 [degF] [facility] 06-07-2021 20:36-0400 Diastolic blood pressure 71 mm[Hg] [facility] 06-07-2021 20:36-0400 Heart rate 107 /min [facility] 06-07-2021 20:36-0400 Respiratory rate 16 /min [facility] 06-07-2021 20:36-0400 SaO2% (BldA) [Mass fraction] 93 % [facility] 06-07-2021 20:36-0400 Systolic blood pressure 132 mm[Hg] [facility] Encounters Encounter Date Encounter Type Care Provider Facility Start: 12-02-2023 ambulatory Semaj QUINTEROS Facility :[facility] Start: 10-02-2023 End: 10-03-2023 Emergency department patient visit Kevin Nur [facility] Start: 10-02-2023 End: 10-02-2023 Emergency department patient visit Juan Arnold [facility] Start: 09-25-2023 End: 09-25-2023 Emergency department patient visit Kevin Nur [facility] Start: 09-19-2023 End: 09-19-2023 ambulatory YANET JUNIOR Facility:[facility] Start: 09-19-2023 End: 09-19-2023 Patient encounter procedure YANET JUNIOR [facility] Start: 08-10-2023 Emergency department patient visit Juan Arnold Facility:[facility] Start: 08-10-2023 End: 08-10-2023 Emergency department patient visit Juan Arnold [facility] Start: 08-06-2023 ambulatory Juan Arnold Facility:[facility] Start: 08-05-2023 End: 08-05-2023 ambulatory YANET JUNIOR Not Available Start: 07-29-2023 End: 07-30-2023 Emergency department patient visit DO Janes Bowles Facility:[facility] Start: 07-29-2023 End: 07-30-2023 Emergency department patient visit Janes Bowles [facility] Start: 05-28-2023 End: 05-28-2023 Emergency department patient visit Mikaela Judd Facility:[facility] Start: 05-28-2023 End: 05-28-2023 Emergency department patient visit Mikaela Judd [facility] Start: 05-25-2023 End: 05-25-2023 ambulatory YANET MIHAELA Not Available Start: 05-11-2023 End: 05-12-2023 ambulatory YANET Silver JUNIOR Facility:[facility] Start: 04-25-2023 Refill Yanet Junior BAGEL MAKER Work Phone: [facility] Comment on above: Gastroesophageal ref lux disease, unspecified whether esophagitis present (Primary Dx); Gastro-esophageal reflux disease without esophagitis; Esophageal reflux Start: 02-09-2023 End: 02-09-2023 ambulatory YANET MIHAELA Not Available Start: 10-28-2022 End: 10-28-2022 Emergency department patient visit Gunnar Rangel Facility:[facility] Start: 10-28-2022 End: 10-28-2022 Emergency department patient visit Gunnar Rangel [facility] Start: 10-25-2022 End: 10-26-2022 ambulatory YANET Silver STONERZ Facility:[facility] Start: 10-25-2022 End: 10-25-2022 Patient encounter procedure YANET Silver JUNIOR [facility] Start: 10-25-2022 End: 10-25-2022 Emergency department patient visit Gunnar Rangel Facility:[facility] Start: 10-25-2022 End: 10-25-2022 Emergency department patient visit Gunnar Rangel [facility] Start: 10-02-2022 Emergency department patient visit Gunnar Rangel Facility:[facility] Start: 09-09-2022 ambulatory YANET JUNIOR Facilit y:[facility] Start: 08-24-2022 End: 08-24-2022 Emergency department patient visit Kevin Nur Facility:[facility] Start: 06-30-2022 End: 06-30-2022 Patient encounter procedure YANET JUNIOR [facility] Start: 03-14-2022 End: 03-14-2022 Patient encounter procedure YANET JUNIOR [facility] Start: 03-04-2022 End: 03-04-2022 Emergency department patient visit Kevin Nur [facility] Start: 01-01-2022 End: 01-01-2022 Patient encounter procedure Marie Luisa Allison [facility] Start: 12-27-2021 End: 12-27-2021 Emergency department patient visit Janes Bowles [facility] Start: 11-11-2021 End: 02-10-2022 Recurring YANET JUNIOR [facility] Start: 10-10-2021 End: 10-23-2021 Pre-admission assessment Dorothy ALMANZAR [facility] Start: 10-09-2021 End: 10-10-2021 Observation Svitlana Willett [facility] Start: 08-21-2021 End: 08-22-2021 ambulatory JULIO KOWALSKI Facility:[facility] Start: 07-12-2021 End: 07-12-2021 Patient encounter procedure YANET JUNIOR [facility] Start: 06-07-2021 End: 06-07-2021 Emergency department patient visit Mikaela Judd [facility] Start: 12-16-2020 End: 12-16-2020 ambulatory FAIZAN JUNIOR Facility:[facility] Start: 10-29-2020 End: 10-30-2020 ambulatory FAIZAN JUNIOR Facility:[facility] Procedures Date Procedure Procedure Detail Performing Clinician Start: 08-20-2018 PCI 1 Mikaela tam Comment on above: Drug eluting stent t o the Medial LAD Start: 03-16-2018 Abdominal hysterectomy Mikaela Judd Start: 03-16-2018 Appendectomy Mikaela tam Bilateral salpingect ilya with oophorectomy Mikaela Judd x2 2 Mikaela Justin i Comment on above: [id number] Cardiac catheterization Salvador Judd Cardiac Stent Mikaela Judd Dilation and curettage Anila Judd Hernia repair x5 3 Mikaeal baron Comment on above: [id number] Hysterectomy Svitlana Willett Incision AND drainage Mikaela Judd Comment on above: multiple abscess kidney stone removal Mikaela Judd Lithotripsy Mikaela Judd Plan of Treatment Date Care Activity Detail Author Start: 09-26-2024 Glaucoma screening Diabetes: R etinopathy Screening [facility] Start: 07-01-2023 Urine screening for protein Diabetes: Urine Protein Screening [facility] Start: 11-14-2022 Influenza vaccination Influenza Vacc ine (#1) [facility] Start: 2021 Screening for malign ant neoplasm of breast Mammogram [facility] Start: 1981 Hemoglobin A1c measurement Diabetes: Hemoglobin A1C [facility] Immunizations Immunization Date Immunization Notes Care Provider Fa cility NEGATED: Highlighted row has not occurred!02-21-2021 influenza virus vaccine, unspecified formulation Mikaela Judd [facility] Payers Date Payer Category Payer Medicaid [employer] [place] [id number] 2022-Present [address] [place] [address] [id number] 2017 Unknown [id number] 1981 Unknown [id number] 2.16.840.1.232922.3.579.2.593 1981 Unknown [id number] 2.16.840.1.217572.3.579.2.593 1981 Unknown [id number] 2.16.840.1.950018.3.579.2.593 1981 Unknown [id number] 2.16.840.1.092977.3.579.2.727 1981 Unknown [id number] 2.16.840.1.114854.3.579.2.727 1981 Unknown [id number] 2.16.840.1.676876.3.579.2.727 1981 Unknown [id number] 2.16.840.1.897482.3.579.2.727 1981 Unknown [id number] 2.16.840.1.519869.3.579.2.727 1981 Unknown [id number] 2.16.840.1.528725.3.579.2.727 1981 Unknown [id number] 2.16.840.1.354299.3.579.2.727 1981 Unknown [id number] 2.16.840.1.397538.3.579.2.727 1981 Unknown [id number] 2.16.840.1.729697.3.579.2.727 1981 Unknown [id number] 2.16.840.1.629885.3.579.2.727 1981 Unknown [id number] 2.16.840.1.060644.3.579.2.9 1981 Unknown [id number] 2.16.840.1.632437.3.579.2.9 1981 Unknown [id number] 2.16.840.1.774263.3.579.2.1259 1981 Unknown [id number] 2.16.840.1.239978.3.579.2. 1981 Unknown [id number] 2.16.840.1.479962.3.579.2. 1981 Unknown [id number] 2.16.840.1.033746.3.579.2. 1981 Unknown [id number] 2.16.840.1.452695.3.579.2. 1981 Unknown [id number] 2.16.840.1.140278.3.579.2. 1981 Unknown [id number] 2.16.840.1.028501.3.579.2.7 1981 Unknown [id number] 2.16.840.1.478412.3.579.2 1981 Unknown [id number] 2.16.840.1.152852.3.579.2.72 1981 Unknown [id number] 2.16840.1.196855.3.579.2.727 1959 Unknown [id number] Social History Date Type Detail Facility Start: 02-21-2021 End: 09-25-2023 Tobacco smoking status Ex-smoker (finding) [facility] Tobacco smoking status Never [facility] Start: 03-15-2023 Sex Assigned At Female F [facility] Start: 03-15-2023 [facility] History of tobacco use Cigarette Smoker N [facility] Start: 03-15-2023 Cigarettes smoked current (pack per day) - Reported 0.5 [facility] Start: 03-17-2023 Alcohol intake Ex-drinker (finding) [facility] Start: 03-15-2023 Alcohol Comment caffeine more than 4 cups per day [facility] Start: 1980 Sex Assigned At Not on file N [facility] Medical Equipment Procedure Code Equipment Code [...] Start: 02-21-2021 B-D ULTRA-FINE 3 3 LANCETS [facility] [id number] Inject under the skin if needed. Use as instructed [id number] Functional Status Date Assessment Result Facility 10-02-2023 Functional Status N/A [facility] 10-02-2023 Functional Status N/A [facility] 09-25-2023 Functional Status N/A [facility] 08-10-2023 Functional Status N/A [facility] 07-29-2023 Functional Status N/A [facility] 05-28-2023 Functional Status N/A [facility] 10-28-2022 Functional Status N/A [facility] 10-25-2022 Functional Status N/A [facility] 03-04-2022 Functional Status N/A [facility] 12-27-2021 Functional Status N/A [facility] 10-09-2021 Functional Status N/A [facility] 10-09-2021 Functional Status [facility] Clinical Notes 06-07-2021 to 10-03-2023 Note Date & Type Note Facility 10-03-2023 Hospital Discharg e instructions Patient Education 10/03/2023 00:40:25 Bartholin's Cyst Bartholin's Cyst A Bartholin's cyst is a fluid-filled sac that forms as a result of a blockage along the tube (duct) of the Bartholin's gland. Bartholin's glands are small glands in the folds of skin around the vaginal opening (labia). These glands produce fluid to moisten or lubricate the outside of the vagina during sex. A cyst that is not large or infected may not cause any problems or require treatment. If the cyst gets infected with bacteria, it is called a Bartholin's abscess. An abscess may cause symptoms such as pain and swelling and is more likely to require treatment. What are the causes? This condition may be caused by a blocked Bartholin's gland duct. These ducts can become blocked due to natural buildup of fluid and oils. Bacteria inside of the cyst can cause infection. In many cases, the cause is not known. What are the signs or symptoms? Symptoms may include: A bulge or lump on the labia, near the lower opening of the vagina. Discomfort or pain. This may get worse during sex or when walking. Redness, swelling, or fluid draining from the area. These may be signs of an abscess. How severe your symptoms are depends on the size of your cyst and whether it is infected. Infection causes symptoms to get more severe. How is this diagnosed? This condition may be diagnosed based on: Your symptoms and medical history. A physical exam to check for swelling in your vaginal area. You may lie on your back on an exam table and have your feet placed into footrests for the exam. Blood tests to check for infections. Removal of a fluid sample from the cyst or abscess (biopsy) for testing. You may work with a health care provider who specializes in women's health (abrasives sales representative) for diagnosis and treatment. How is this treated? If your cyst is small, not infected, and not causing symptoms, you may not need treatment. These cysts often go away on their own, with home care such as hot baths or warm compresses. If you have a large cyst or an abscess, treatment may include: Antibiotic medicine. A procedure to drain the fluid inside the cyst or abscess. These procedures involve making an incision in the cyst or abscess so that the fluid drains out, and then one of the following may be done: ?A small, thin tube (catheter) may be placed inside the cyst or abscess so that it does not close and fill up with fluid again (fistulization). The catheter will be removed at a follow-up visit. ?The edges of the incision may be stitched to your skin so that the cyst or abscess stays open (marsupialization). This allows it to continue to drain and not fill up with fluid again. If you have cysts or abscesses that keep returning (recurring) and have required incision and drainage multiple times, your health care provider may talk with you about surgery to remove the Bartholin's gland. Follow these instructions at home: Medicines Take iqps-uer-kpbvbzr and prescription medicines only as told by your health care provider. If you were prescribed an antibiotic medicine, take it as told by your health care provider. Do not stop taking the antibiotic even if your condition improves. Managing pain and swelling Try sitz baths to help with pain and swelling. A sitz bath is a warm water bath in which the water only comes up to your hips and should cover your buttocks. You may take sitz baths several times a day. Apply heat to the affected area as often as needed. Use the heat source that your health care provider recommends, such as a moist heat pack or a heating pad. ?Place a towel between your skin and the heat source. ?Leave the heat on for 20 30 minutes. ?Remove the heat if your skin turns bright red. This is especially important if you are unable to feel pain, heat, or cold. You may have a greater risk of getting burned. Do not fall asleep with the heating pad in place. General instructions If your cyst or abscess was drained, follow instructions from your health care provider about how to take care of your wound. Use feminine pads as needed to absorb any drainage. Do not push on or squeeze your cyst. Do not have sex until the cyst has gone away or your wound from drainage has healed. Take these steps to help prevent a Bartholin's cyst from returning and to prevent other Bartholin's cysts from developing: ?Take a bath or shower once a day. Clean your vaginal area with mild soap and water when you bathe. ?Practice safe sex to prevent STIs. Talk with your health care provider about how to prevent STIs and which forms of control (contraception) may be best for you. Keep all follow-up visits. This is important. Contact a health care provider if: You have a fever. You develop increasing redness, swelling, or pain around your cyst. You have fluid, blood, pus, or a bad smell coming from your cyst. You have a cyst that gets larger or comes back. Summary A Bartholin's cyst is a fluid-filled sac that forms as a result of a blockage along the duct of the Bartholin's gland. If your cyst is small, not infected, and not causing symptoms, you may not need any treatment. If you have a large cyst or an abscess, your health care provider may perform a procedure to drain the fluid. If you have cysts or abscesses that keep returning (recurring) and have required incision and drainage multiple times, your health care provider may talk with you about surgery to remove the Bartholin's gland. This information is not intended to replace advice given to you by your health care provider. Make sure you discuss any questions you have with your health care provider. Document Revised: 07/30/2020 Document Reviewed: 07/30/2020 [employer] Patient Education 2022 [employer]. Follow Up Care 10/02/2023 21:36:31 With:Hieu Parish Address: [address] [address]- Business (1) When:10/06/2023 With:YANET JUNIOR Address: [address] [place] [phone] Business (1) When:10/06/2023 [facility] 10-03-2023 Note ED Patient Education Note Obstetrics and Gynecology Bartholin's Cyst A Bartholin's cyst is a fluid-filled sac that forms as a result of a blockage along the tube (duct) of the Bartholin's gland. Bartholin's glands are small glands in the folds of skin around the vaginal opening (labia). These glands produce fluid to moisten or lubricate the outside of the vagina during sex. A cyst that is not large or infected may not cause any problems or require treatment. If the cyst gets infected with bacteria, it is called a Bartholin's abscess. An abscess may cause symptoms such as pain and swelling and is more likely to require treatment. What are the causes? This condition may be caused by a blocked Bartholin's gland duct. These ducts can become blocked due to natural buildup of fluid and oils. Bacteria inside of the cyst can cause infection. In many cases, the cause is not known. What are the signs or symptoms? Symptoms may include: ? A bulge or lump on the labia, near the lower opening of the vagina. ? Discomfort or pain. This may get worse during sex or when walking. ? Redness, swelling, or fluid draining from the area. These may be signs of an abscess. How severe your symptoms are depends on the size of your cyst and whether it is infected. Infection causes symptoms to get more severe. How is this diagnosed? This condition may be diagnosed based on: ? Your symptoms and medical history. ? A physical exam to check for swelling in your vaginal area. You may lie on your back on an exam table and have your feet placed into footrests for the exam. ? Blood tests to check for infections. ? Removal of a fluid sample from the cyst or abscess (biopsy) for testing. You may work with a health care provider who specializes in women's health (abrasives sales representative) for diagnosis and treatment. How is this treated? If your cyst is small, not infected, and not causing symptoms, you may not need treatment. These cysts often go away on their own, with home care such as hot baths or warm compresses. If you have a large cyst or an abscess, treatment may include: ? Antibiotic medicine. ? A procedure to drain the fluid inside the cyst or abscess. These procedures involve making an incision in the cyst or abscess so that the fluid drains out, and then one of the following may be done: ? A small, thin tube (catheter) may be placed inside the cyst or abscess so that it does not close and fill up with fluid again (fistulization). The catheter will be removed at a follow-up visit. ? The edges of the incision may be stitched to your skin so that the cyst or abscess stays open (marsupialization). This allows it to continue to drain and not fill up with fluid again. If you have cysts or abscesses that keep returning (recurring) and have required incision and drainage multiple times, your health care provider may talk with you about surgery to remove the Bartholin's gland. Follow these instructions at home: Medicines ? Take rejd-mhw-emjvhon and prescription medicines only as told by your health care provider. ? If you were prescribed an antibiotic medicine, take it as told by your health care provider. Do not stop taking the antibiotic even if your condition improves. Managing pain and swelling ? Try sitz baths to help with pain and swelling. A sitz bath is a warm water bath in which the water only comes up to your hips and should cover your buttocks. You may take sitz baths several times a day. ? Apply heat to the affected area as often as needed. Use the heat source that your health [...] have a greater risk of getting burned. Do not fall asleep with the heating pad in place. General instructions ? If your cyst or abscess was drained, follow instructions from your health care provider about how to take care of your wound. Use feminine pads as needed to absorb any drainage. ? Do not push on or squeeze your cyst. ? Do not have sex until the cyst has gone away or your wound from drainage has healed. ? Take these steps to help prevent a Bartholin's cyst from returning and to prevent other Bartholin's cysts from developing: ? Take a bath or shower once a day. Clean your vaginal area with mild soap and water when you bathe. ? Practice safe sex to prevent STIs. Talk with your health care provider about how to prevent STIs and which forms of control (contraception) may be best for you. ? Keep all follow-up visits. This is important. Contact a health care provider if: ? You have a fever. ? You develop increasing redness, swelling, or pain around your cyst. ? You have fluid, blood, pus, or a bad smell coming from your cyst. ? You h (more content not included)... [facility] 10-02-2023 Hospital Discharg e instructions Patient Education 10/02/2023 13:34:25 Bartholin's Cyst, Crxm-ju-Aqvi Bartholin's Cyst A Bartholin's cyst is a [...] Follow these instructions at home: Medicines Take zvnb-alp-kdclaah and prescription medicines only as told by [...] provider. Document Revised: 07/30/2020 Document Reviewed: 07/30/2020 [employer] Patient Education 2022 [employer]. Follow Up Care 10/02/2023 12:30:34 With:Hieu Parish Address: [address], [facility] [address] [place] [address]- Business (1) When:10/05/2023 13:33:45 Comments:Call to schedule a follow up appointment with an STATE APPELLATE CLERK for further management of care. Take the antibiotic in entirerty. With:YANET JUNIOR Address: [address] [place] [address] [phone] Business (1) When:Within 3 Day(s) [facility] 10-02-2023 Evaluation + Plan note Extrac sandro from: Title:ED Note Author:Avila GUZMAN, Fito Castillo te:10/02/23 Bartholin's gland abscess (N 75.1: Abscess of Bartholin's gland) Orders: acetaminophen-oxycodone, 1 tab(s), Tab, Oral, Once, Stop date 10/02/23 22:16:00 EDT, STAT, Start date 10/02/23 22:16:00 EDT acetaminophen-oxycodone, 1 tab(s), Tab, Oral, Once, Stop date 10/03/23 0:28:00 EDT, STAT, Start date 10/03/23 0:28:00 EDT clindamycin, 300 mg = 2 cap(s), Cap, Oral, Once, Stop date 10/03/23 0:30:00 EDT, STAT, Start date 10/03/23 0:30:00 EDT, 10/03/23 0:30:00 EDT naproxen, 500 mg = 2 tab(s), Tab, Oral, Once, Stop date 10/03/23 0:28:00 EDT, STAT, Start date 10/03/23 0:28:00 EDT, 10/03/23 0:28:00 EDT naproxen, 500 mg = 1 tab(s), Oral, BID, X 10 day(s), # 20 tab(s), Refills(s) 0, Pharmacy: [facility]/pharmacy #[id number], 160, cm, 10/02/23 21:46:00 EDT, Height/Length Dosing, 106.2, kg, 10/02/23 21:46:00 EDT, Weight Dosing ondansetron, 4 mg = 1 tab(s), Tab-Dis, Oral, Once, Stop date 10/02/23 22:16:00 EDT, STAT, Start date 10/02/23 22:16:00 EDT, 10/02/23 22:16:00 EDT ondansetron, 4 mg = 1 tab(s), Oral, q6hr, # 12 tab(s), Refills(s) 0, Pharmacy: [facility]/pharmacy #[id number], 160, cm, 10/02/23 21:46:00 EDT, Height/Length Dosing, 106.2, kg, 10/02/23 21:46:00 EDT, Weight Dosing Future Appointments Appointment Date:12/02/2023 10:00:00 AM Scheduled Provider:Semaj QUINTEROS MD Location:[facility] Appointment Type:URO New Patient Future Scheduled Tests Radiology* XR Abdomen 1 View 08/06/23 [facility]07-19-2024 NoteED Patient Education Note Obstetrics and Gynecology Bartholin's Cyst A Bartholin's cyst is a fluid-filled sac that forms on a Bartholin's gland. Bartholin's glands are small glands in the folds of skin near the opening of the vagina (labia). This type of cyst causes abulge or lump near the opening of the [...] infection. What are the signs or symptoms? ? A bulge or lump near the opening of the vagina. ? Discomfort or pain. ? Redness, swelling, or fluid draining from the area. How is this treated? You may not need treatment if your cyst is not causing symptoms. The cyst can go away on its own with home care. Home care includes hot baths or heat therapy. Large cysts or cysts that are infected may be treated with: ? Antibiotic medicine. ? A procedure to drain the fluid. Cysts that keep coming back will need to be drained many times. Your doctor may talk to you about surgery to remove the cyst. Follow these instructions at home: Medicines ? Take sitl-smb-jfhixkz and prescription medicines only as told by your doctor. ? If you were prescribed an antibiotic medicine, take it as told by your doctor. Do not stop takingit even if you start to feel better. Managing pain and swelling ? Try sitz baths to help with pain and swelling. A sitz bath is a warm water bath in which the water only comes up to your hips and should cover your buttocks. You may take sitz baths a few times a day. ? If told, put heat on the affected area as often as needed. Use the heat source that your doctor recommends, such as a moist heat pack or a heating pad. ? Place a towel between your skin and the heat source. ? Leave the heat on for 20?30 minutes. ? Take off the heat if your skin turns bright red. This is very important. If you cannot feel pain,heat, or cold, you have a greater risk of getting burned. General instructions ? If your cyst was drained: ? Follow instructions from your doctor about how to take care of your wound. ? Use feminine pads to absorb any fluid. ? Do not push on or squeeze your cyst. ? Do not have sex until the cyst has gone away or your wound from drainage has healed. ? Take these steps to help prevent a cyst from returning, and to prevent other cysts from forming: ? Take a bath or shower once a day. Clean the area around your vagina with mild soap and water whenyou bathe. ? Practice safe sex to prevent STIs. Talk with your doctor about how to prevent STIs and which forms of control to use. ? Keep all follow-up visits. Contact a doctor if: ? You have a fever. ? You get more redness, swelling, or pain around your cyst. ? You have fluid, blood, pus, or a bad smell coming from your cyst. ? You have a cyst that gets larger or a cyst that comes back. Summary ? A Bartholin's cyst is a fluid-filled sac that forms on a Bartholin's gland. These small glands are found in the folds of skin near the opening of the vagina (labia). ? This type of cyst causes a bulge or lump near the opening of the vagina. ? Try sitz baths a few times a day to help with pain and swelling. ? Do not push on or squeeze your cyst. This information is not intended to replace advice given to you by your health care provider. Make sure you discuss any questions you have with your health care provider. Document Revised: 07/30/2020 Document Reviewed: 07/30/2020 [employer] Patient Education ? 2022 [employer].[facility] 09-25-2023 Evaluation + Plan noteExtracted from: Title:ED Note Author:Gunnar Rangel DO Date:09/13 05/09 Gastritis (K29.70: Gastritis , unspecified, without bleeding) Ordered: promethazine, 25 mg = 1 tab(s), Oral, q4hr, X 3 day(s), # 18 tab(s), Refills(s) 0, Pharmacy: [facility]/pharmacy #[id number], 160, cm, 09/25/23 6:39:00 EDT, [...] Date:12/02/2023 10:00:00 AM Scheduled Provider:Semaj QUINTEROS MD Location:[facility] Appointment Type:URO New Patient Future Scheduled Tests Radiology* XR Abdomen 1 View 08/06/23 [facility]07-12-2024 Hospital Discharge instructions Follow Up Care 09/25/2023 06:34:35 With:YANET JUNIOR Address: [address] [place] [phone] Business (1) When:Within 3 Day(s) [facility]05-28-2024 Hospital Discharge instructions Patient Education 08/10/2023 22:15:29 Nonspecific Chest Pain, Adult, Kwcj-lc-Aqny Nonspecific Chest Pain Chest pain can be [...] Follow these instructions at home: Medicines Take cvwe-uqv-yyjgryi and prescription medicines only as told by [...] ?Eating a heart-healthy diet. A diet and animal nutritionist (dietitian) can help you to learn healthy [...] provider. Document Revised: 05/16/2021 Document Reviewed: 05/16/2021 [employer] Patient Education 2022 [employer]. Follow Up Care 08/10/2023 19:05:46 With:Koko Vasquez Address: [address] [place] [address]- Business (1) When:08/13/2023 21:40:29 Comments:Call for diagnosis based follow up With:YANET JUNIOR Address: [address] [place] [address] [phone] Business (1) When:08/13/2023 21:40:21 Comments:Call for diagnosis based follow up [facility]05-27-2024 Evaluation + Plan noteExtracted from: Title:ED Note Author:Joseph Kent PA-C te:08/10/23 Nonspecific chest pain (R07. 9: Chest [...] Date:12/02/2023 10:00:00 AM Scheduled Provider:Semaj QUINTEROS MD Location:[facility] Appointment Type:URO New Patient Future Scheduled Tests Radiology* XR Abdomen 1 View 08/06/23 [facility]05-16-2024 Evaluation + Plan noteExtracted from: Title:ED Note Author:Wilbur Shoshanaritchie Camacho Date :07/30/23 Acute UTI (urinary tract inf [...] day(s), # 15 cap(s), Refills(s) 0, Pharmacy: [facility]/pharmacy #[id number], 160, cm, 07/29/23 21:34:00 EDT, [...] q8hr, # 12 tab(s), Refills(s) 0, Pharmacy: [facility]/pharmacy #[id number], 160, cm, 07/29/23 21:34:00 EDT, [...] day(s), # 9 tab(s), Refills(s) 0, [id number] 160, cm, 07/29/23 21:34:00 EDT, [...] Diagnostic Tests Pending * Urine Culture 07/29/23 [facility]05-16-2024 Hospital Discharge instructions Patient Education 07/30/2023 02:22:55 Urinary Tract Infection, Adult, Lzud-tr-Yswt Urinary Tract Infection, Adult A urinary tract [...] Follow these instructions at home: Medicines Take iezw-lgl-qevkqrb and prescription medicines only as told by [...] provider. Document Revised: 10/12/2020 Document Reviewed: 10/12/2020 [employer] Patient Education 2022 [employer]. 07/30/2023 02:22:55 Flank Pain, Adult, Ygwc-oo-Qfkk Flank Pain, Adult Flank pain is pain [...] Rest as told by your doctor. Take tpzs-sho-osnaxdg and prescription medicines only as told by [...] provider. Document Revised: 05/13/2021 Document Reviewed: 05/13/2021 [employer] Patient Education 2022 [employer]. Follow Up Care 07/29/2023 21:13:40 With:YANET JUNIOR Address: [address] [place] [phone] Business (1) When:08/02/2023 Comments:Take the antibiotics as prescribed you have completed the course. Use the Pyridium, Zofran as prescribed as needed for nausea and burning. Please follow-up with your primary care doctor for further evaluation management. [facility]03-14-2024 Hospital Discharge instructions Patient Education 05/28/2023 15:54:36 [...] discomfort that you are feeling: Medicines Take umwr-usi-eeawwhr and prescription medicines only as told by [...] caused by passing a kidney stone. Take vash-fbr-rsmprgq and prescription medicines only as told by [...] provider. Document Revised: 11/04/2021 Document Reviewed: 11/04/2021 [employer] Patient Education 2022 [employer]. Follow Up Care 05/28/2023 12:58:24 With:YANET JUNIOR Address: [address] [facility] [address] [phone] Business (1) When:05/31/2023 15:22:50 [facility]03-14-2024 Evaluation + Plan noteExtracted from: Title:ED Note [...] date 05/28/23 13:22:00 EDT, STAT, Start date 05/28/23:22:00 EDT, Infuse over 61, minute(s) tamsulosin, 0.4 mg = 1 cap(s), Oral, Daily, # 10 cap(s), Refills(s) 0, Pharmacy: [facility]/pharmacy #[id number], 160, cm, 05/28/23 13:08:00 EDT, Height/Length Dosing, 115, kg, 05/28/23 13:08:00 EDT, Weight Dosing CT Abdomen/Pelvis w/o Contrast UA With Cult Reflex [facility]08-15-2023 Hospital Discharge instructions Patient Education 10/28/2022 18:55:13 [...] including vitamins, herbs, eye drops, creams, and pzuy-egp-ulrkskx medicines. Any problems you or family members [...] provider tells you to take them. Taking wazm-vbe-jqpncyn medicines, vitamins, herbs, and supplements. Tests You [...] provider. Document Revised: 01/27/2022 Document Reviewed: 11/04/2021 [employer] Patient Education 2022 [employer]. 10/28/2022 18:55:13 Laser Therapy for Kidney Stones, [...] Follow these instructions at home: Medicines Take cfnq-fje-qwjwxfx and prescription medicines only as told by [...] prevent or treat constipation, such as: ?Take groh-eks-rfrjkob or prescription medicines. ?Eat foods that are [...] amounts of blood in your urine. Take qapo-afn-axifueo and prescription medicines only as told by [...] provider. Document Revised: 11/04/2021 Document Reviewed: 11/04/2021 [employer] Patient Education 2022 [employer]. 10/28/2022 18:55:13 Kidney Stones, Ubgu-oy-Nxkm Kidney Stones Kidney stones are rock-like masses [...] Follow these instructions at home: Medicines Take anoo-gkj-fnoqyap and prescription medicines only as told by [...] provider. Document Revised: 11/04/2021 Document Reviewed: 11/04/2021 [employer] Patient Education 2022 [employer]. 10/28/2022 18:55:13 Flank Pain, Adult, Hxje-fp-Izsv Flank Pain, Adult Flank pain is pain [...] Rest as told by your doctor. Take hpkf-fpl-dkrruei and prescription medicines only as told by [...] provider. Document Revised: 05/13/2021 Document Reviewed: 05/13/2021 [employer] Patient Education 2022 [employer]. Follow Up Care 10/28/2022 15:05:36 With:Dallas MIRANDA Address: [facility] [address] [place] [address]- Business (1) When:10/31/2022 18:38:02 With:YANET JUNIOR Address: [address] [place] [phone] Business (1) When:Within 3 Day(s) [facility]08-12-2023 Hospital Discharge instructions Patient Education 10/25/2022 12:11:07 [...] Follow these instructions at home: Medicines Take zdgf-lol-pxyvgnz and prescription medicines only as told by [...] provider. Document Revised: 11/20/2021 Document Reviewed: 11/04/2021 [employer] Patient Education 2022 [employer]. 10/25/2022 12:11:07 Nonspecific Chest Pain, Adult, Uwug-kh-Srgv Nonspecific Chest Pain Chest pain can be [...] Follow these instructions at home: Medicines Take ltlf-jdm-imuyciy and prescription medicines only as told by [...] ?Eating a heart-healthy diet. A diet and animal nutritionist (dietitian) can help you to learn healthy [...] provider. Document Revised: 05/16/2021 Document Reviewed: 05/16/2021 [employer] Patient Education 2022 [employer]. Follow Up Care 10/25/2022 09:30:56 With:Koko Vasquez Address: [address] [place] [address] [place] [address] Business (1) When:10/28/2022 11:22:14 With:Dallas MIRANDA Address: [facility] [address] [place] [address]- Business (1) When:10/28/2022 11:22:13 With:YANET JUNIOR Address: [address] [place] [address] [phone] Business (1) When:10/28/2022 11:22:02 Comments:Follow-up with your primary care provider in 3 to 5 days. If symptoms worsen, do not improve, or new symptoms arise please report back to emergency department for further evaluation. [facility]08-12-2023 Evaluation + Plan note Diagnostic Tests Pending * HgbA1c 10/25/22 [facility]12-20-2022 Hospital Discharge instructions Patient Education 03/04/2022 20:32:49 [...] Follow these instructions at home: Medicines Take gvak-zyf-debksox and prescription medicines only as told by [...] 12/10/2005 Document Revised: 09/02/2018 Document Reviewed: 09/02/2018 [employer] Patient Education 2020 [employer]. Follow Up Care 03/04/2022 18:23:11 With:YANET JUNIOR Address: [address] [place] [address] [phone] Business (1) When:03/06/2022 20:05:36 [facility]12-20-2022 Evaluation + Plan noteExtracted from: Title:ED Note [...] date 03/04/22 19:33:00 EST, 03/04/22 19:33:00 EST [facility]10-14-2022 Evaluation + Plan noteExtracted from: Title:ED Note [...] pain, # 20 tab(s), Refills(s) 0, Pharmacy: [facility]/pharmacy #[id number], 162, cm, 12/27/21 2:03:00 EDT, Height/Length Dosing, 118, kg, 12/27/21 2:03:00 EDT, Weight Dosing ondansetron, 4 mg = 1 tab(s), Oral, q8hr, PRN Nausea/Vomiting, # 12 tab(s), Refills(s) 0, Pharmacy: [facility]/pharmacy #[id number], 162, cm, 12/27/21 2:03:00 EDT, [...] Tests Radiology* CT Maxillofacial w/o Contrast 01/01/22 [facility]10-14-2022 Hospital Discharge instructions Patient Education 12/27/2021 03:52:01 Abdominal Pain, Adult, Qrxf-wl-Dhwx Abdominal Pain, Adult Many things can cause belly (abdominal) pain. Most times, belly pain is not dangerous. Many cases of belly pain can be watched and treated at home. Sometimes, though, belly pain is serious. Your doctor will try to find the cause of your belly pain. Follow these instructions at home: Medicines Take ryxj-fba-vomvbel and prescription medicines only as told by [...] your belly pain for any changes. Take efym-qfd-wlnrnfj and prescription medicines only as told by [...] 08/18/2008 Document Revised: 07/11/2019 Document Reviewed: 07/11/2019 [employer] Patient Education 2020 [employer]. Follow Up Care 12/27/2021 01:56:39 With:YANET JUNIOR Address: [address] [place] [phone] Business (1) When:12/30/2021 Comments:You can use the naproxen every 12 hours and the Zofran every 6 hours as needed for nausea and vomiting. Please follow-up with your primary care doctor in the next 2 to 3 days. Please return the ED for any new or worsening symptoms. [facility]07-28-2022 Evaluation + Plan noteExtracted from: Title:Discharge Note [...] 10/22/2021 11:00 AM EDT [address] [place] [address]- Business (1) Additional Instructions: Appointment with FAIZAN Gutierrez 10/21/2021 08:00 PM EDT [address] [place] [address] Business (1) Additional Instructions: Chest Wall Pain, Enih-by-Ktum Extracted from: Title:Consult Note Author:Pedro HERRERA, Lesley Scott Date:10/10/21 40-year-old female with log roller jose chest pain syndrome and prior multiple [...] artery disease (I25.10: Atherosclerotic heart disease of [place] coronary artery without angina pectoris) 4. Diabetes (E11.9: Type 2 diabetes mellitus without complications) 5. HTN (hypertension) (I10: Essential (primary) hypertension) 6. History of [place] (myocardial infarction) (I25.2: Old myocardial infarction) 7. [...] smoker with history of coronary artery disease, [place], status post stent x2, obstructive sleep apnea, [...] artery disease (I25.10: Atherosclerotic heart disease of [place] coronary artery without angina pectoris) Status post stents x2. Continue on aspirin, Plavix, metoprolol and Lipitor. Ordered: Observation Care Discharge Day 4. Diabetes (E11.9: Type 2 diabetes mellitus without complications) Continue on insulin and metformin. Ordered: 5. HTN (hypertension) (I10: Essential (primary) hypertension) On metoprolol and losartan. 6. History of [place] (myocardial infarction) (I25.2: Old myocardial infarction) Historical. 7. Hyperlipidemia (E78.5: Hyperlipidemia, unspecified) On Lipitor. 8. Smoker (F17.200: Nicotine dependence, unspecified, uncomplicated) Recommend cessation. On nicotine patch. Ordered: nicotine, 14 mg, 1 patch(es), Patch-ER, TransDermal, Daily, STAT, Start date 10/09/21 17:01:00 EDT 9. RTUONG on CPAP (G47.33: Obstructive sleep apnea (adult) (pediatric)) Supportive care. 10. Morbid obesity (E66.01: Morbid (severe) obesity due to excess calories) Recommend therapeutic lifestyle modification changes. 11. DVT prophylaxis (Z29.9: Encounter for prophylactic measures, unspecified) Lovenox. Disposition: Home soon pending cardiology evaluation. Extracted from: Title:Admission H & P Author:OJUKWU MD, Mbanefo Date:10/09/21 40-year-old morbidly obese C aucasian female cigarette smoker with history of coronary artery disease, [place], status post stent x2, obstructive sleep apnea, [...] wall Initial Observation Care/Day Moderate 50 min [id number] 2. Anxiety (F41.9: Anxiety disorder, unspecified) May be contributing to above. Continue on Xanax as needed. Ordered: Initial Observation Care/Day Moderate 50 min 14566 3. Coronary artery disease (I25.10: Atherosclerotic heart disease of [place] coronary artery without angina pectoris) Status post [place] status post stents x2. Continue on aspirin, Plavix, Lipitor and metoprolol. Ordered: Initial Observation Care/Day Moderate 50 min 16434 4. Diabetes (E11.9: Type 2 diabetes mellitus without complications) Continue on Lantus and metformin. Started patient on sliding scale insulin. Ordered: Initial Observation Care/Day Moderate 50 min 21954 5. HTN (hypertension) (I10: Essential (primary) hypertension) Continue on metoprolol, losartan. 6. History of [place] (myocardial infarction) (I25.2: Old myocardial infarction) Historical. [...] date 10/09/21 21:00:00 EDT, 10/09/21 17:14:00 EDT Mis Prescription, Jardiance 25 mg oral tablet, Oral, [...] artery disease (I25.10: Atherosclerotic heart disease of [place] coronary artery without angina pectoris) 4. Diabetes (E11.9: Type 2 diabetes mellitus without complications) 5. HTN (hypertension) (I10: Essential (primary) hypertension) 6. History of [place] (myocardial infarction) (I25.2: Old myocardial infarction) 7. [...] Level PT & PTT Rapid COVID Antigen ([facility]) Saline Lock Insert Troponin 0 Hr. Troponin 3 Hr. Troponin 6 Hr. Troponin 9 Hr. XR Chest Single View Future Appointments Appointment Date:10/22/2021 11:00:00 AM Scheduled Provider:Dorothy ALMANZAR CNP Location:.Cardiology Clinic Appointment Type:Cardiology Inpatient Follow Up (FT) [facility]07-28-2022 Hospital Discharge instructions Patient Education 10/10/2021 10:33:41 Chest Wall Pain, Bpbx-tw-Xlob Chest Wall Pain Chest wall pain is [...] are safe for you. General instructions Take umcw-lpx-kzphkdu and prescription medicines only as told by [...] 08/18/2008 Document Revised: 09/02/2018 Document Reviewed: 09/02/2018 [employer] Patient Education 2020 [employer] Education Follow Up Care 10/09/2021 14:07:15 With:YANET JUNIOR Address: [address] [place] [address] Business (1) When:10/21/2021 20:00:00 With:Koko Vasquez Address: [address] [place] [phone]- Business (1) When:10/22/2021 11:00:00 Comments:Appointment with Dorothy Almanzar CNP [facility]06-08-2022 NotePROCEDURE: XR ANKLE LT MIN 3 V, [...] by: ERUM DE LA CRUZ Date: 2021-08-21 17:19[facility]06-08-2022 NotePROCEDURE: XR ANKLE LT MIN 3 [...] by: ERUM DE LA CRUZ Date: 2021-08-21 17:19[facility]03-25-2022 Hospital Discharge instructions Patient Education 06/07/2021 20:49:54 Blepharitis, Ddvg-nx-Wuks Blepharitis Blepharitis is swelling of the eyelids. [...] 12/09/2008 Document Revised: 08/30/2018 Document Reviewed: 08/30/2018 [employer] Patient Education [employer] Follow Up Care 06/07/2021 20:31:14 With:YANET JUNIOR CNP Address:Unknown When:06/10/2021 [facility]03-25-2022 Evaluation + Plan noteExtracted from: Title:ED Note Author:Phoebe Dubon PA-C Date :06/07/21 1. Unspecified blepharitis l eft upper eyelid (H01.004: Unspecified blepharitis left upper eyelid) Ordered: erythromycin ophthalmic, 0.5 in, OPTH, QID for 7 day(s), 3.5 gm, Refill(s) 0, [id number], 165, cm, 06/07/21 20:41:00 EDT, Height/Length Dosing, 121, kg, 06/07/21 20:41:00 EDT, Weight Dosing [facility] Future Appointments Appointment Date:12/02/2023 10:00:00 AM Scheduled Provider:Semaj QUINTEROS MD Location:[facility] Appointment Type:URO New Patient Future Scheduled Tests Radiology* XR Abdomen 1 View 08/06/23 [facility] Diagnosis Gastroesophageal reflux disease, unspecified whether esophagitis present- Primary Gastro-esophageal reflux disease without esophagitis Esophageal reflux documented [facility] Narrative No data available for this section [facility] No data available for this section [facility] No data available for this section [facility] Summary Purpose Family History No Family History [...] for this section No Family History Records Found Advance Directives No Advanced Directives Records FoundNo [...] and content) DATE CREATED AUTHOR 08/24/2021 [facility] DATE CREATED AUTHOR AUTHOR'S ORGANIZ ATION 08/01/2023 [facility] DATE CREATED AUTHOR AUTHOR'S ORGANIZ ATION 08/08/2023 [facility] EPIC DATE CREATED AUTHOR AUTHOR'S ORGANIZ ATION 08/10/2023 [facility] DATE CREATED AUTHOR AUTHOR'S ORGANIZ ATION 09/20/2023 [facility] DATE CREATED AUTHOR AUTHOR'S ORGANIZ ATION 10/01/2023 [facility] DATE CREATED AUTHOR AUTHOR'S ORGANIZ ATION 10/06/2023 [facility] Care Team (unrecognized sect ion and content) 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 [employer] provides no warranty or guarantee of the accuracy or completeness of information in this document.
--- NOTE | 2023-10-07 02:23 | CT_ITS ---
The [address] [address] Patient Name: TISH VARGAS MRN: [id number] date: 1980 Sex: F Assigned Patient Location: ER Current Patient Location: ER Accession/Order Number: [id number] Exam Date: 10/07/2023 02:53 Report Date: 10/07/2023 03:56 At the request of: BRADY DOSS Procedure: CT pelvis w con EXAM: CT pelvis w con HISTORY: Left leg pain, recent infection . Left labial abscess with pain and edema. COMPARISON: CT pelvis, 10/03/2023. TECHNIQUE: IV contrast enhanced CT imaging of the pelvis was performed using 100 mL of Omnipaque 300 intravenous contrast. Sagittal and coronal reconstructions are provided. Dose reduction techniques were achieved by using automated exposure control and/or adjustment of mA and/or kV according to patient size and/or use of iterative reconstruction technique. FINDINGS: Superficial left labial abscess measures 3.3 x 1.3 cm on image 87 of series 3 with an enhancing wall and surrounding subcutaneous fat stranding. There is no soft tissue gas. No other acute findings are seen in the pelvis. Postsurgical scarring is noted in the subcutaneous fat of the anterior abdominal wall. Prior hysterectomy is noted. There is a normal appendix on image 28. The pelvic small bowel loops, colon and urinary bladder appear unremarkable. No acute osseous abnormality or suspicious bony lesion is seen. CT/CT pelvis w con IMPRESSION: Superficial 3.3 cm left labial abscess, not significantly changed from 4 days ago. Negative for soft tissue gas. No other acute pelvic findings. Electronically authenticated by: DONOVAN CASTANO Date: 10/07/2023 03:56
--- NOTE | 2023-10-07 02:24 | ED_ITS ---
HPI - Female Genitourinary General Chief complaint: Urogenital-Female Stated complaint: VAGINAL ISSUES Time Seen by Provider: 10/07/23 01:51 Source: patient Mode of arrival: walk-in Limitations: no limitations History of Present Illness HPI Narrative: 42-year-old female presents for pain to the left labial area. She has had this for about a week and was seen at another hospital twice. On her second visit an incision was made and she was put on an antibiotic. She was admitted here 4 days ago and was given IV vancomycin. Yesterday she was transferred to [facility] with a concern of a more serious condition, specifically cancer. The patient states that she was seen there by the pharmacy technician infusion and discharged within a few hours and was not sent home on any antibiotics. She wants to be readmitted for IV pain control and IV antibiotics because when she was getting the IV antibiotic she was getting better. The pain is severe and continuous. Related Data Home Medications ?Medication ?Instructions ?Recorded ?Confirmed alprazolam 1 mg tablet (Xanax) 0.5 mg PO TID 08/25/22 10/03/23 aspirin 81 mg tablet,delayed 81 mg PO DAILY 08/25/22 10/03/23 release atorvastatin 80 mg tablet 80 mg PO QPM 08/25/22 10/04/23 clopidogrel 75 mg tablet (Plavix) 75 mg PO DAILY 08/25/22 10/03/23 empagliflozin 25 mg tablet 25 mg PO DAILY 08/25/22 10/03/23 (Jardiance) ezetimibe 10 mg tablet 10 mg PO DAILY 08/25/22 10/03/23 hydroxyzine pamoate 25 mg capsule 25 mg PO BID PRN anxiety 08/25/22 10/03/23 losartan 25 mg tablet 25 mg PO DAILY 08/25/22 10/03/23 metformin 1,000 mg tablet 1,000 mg PO BID 08/25/22 10/03/23 metoprolol succinate 25 mg 25 mg PO BID 08/25/22 10/03/23 tablet,extended release 24 hr mounjaro 12.5 mg IM .weekly 08/25/22 10/04/23 omeprazole 20 mg capsule,delayed 20 mg PO DAILY PRN stomach upset 08/25/22 10/03/23 release gabapentin 400 mg capsule 800 mg PO TID 08/26/22 10/03/23 promethazine 25 mg tablet 25 mg PO TID PRN nausea and 10/03/23 10/03/23 vomiting Previous Rx's ?Medication ?Instructions ?Recorded clindamycin HCl 300 mg capsule 300 mg PO Q6H 7 days #28 caps 08/26/22 oxycodone-acetaminophen 5 mg-325 1 tab PO Q6H PRN pain #6 tabs 10/02/22 mg tablet (Percocet) oxycodone-acetaminophen 5 mg-325 1 tab PO Q6H PRN pain 3 days #15 10/07/23 mg tablet (Percocet) tabs Allergies Allergy/AdvReac Type Severity Reaction Status Date / Time penicillin G AdvReac Intermediate Abdominal Verified 10/04/23 00:04 Pain tramadol [From Ultram] AdvReac Intermediate Abdominal Verified 10/04/23 00:04 Pain acetaminophen [From Vicodin] AdvReac Nausea Verified 10/04/23 00:04 hydrocodone [From Vicodin] AdvReac Nausea Verified 10/04/23 00:04 Review of Systems ROS Narrative A ten point review of systems is negative except as noted above. [facility] Medical History (Updated 10/07/23 @ 04:42 by Rojelio Ramires MD) Kidney stones ?N20.0 - Calculus of kidney (ICD-10) Neuropathy ?G62.9 - Polyneuropathy, unspecified (ICD-10) Myocardial infarction ?I21.9 - Acute myocardial infarction, unspecified (ICD-10) JARAD (generalized anxiety disorder) ?F41.1 - Generalized anxiety disorder (ICD-10) HLD (hyperlipidemia) ?E78.5 - Hyperlipidemia, unspecified (ICD-10) HTN (hypertension) ?I10 - Essential (primary) hypertension (ICD-10) CAD (coronary artery disease) ?I25.10 - Atherosclerotic heart disease of [place] coronary artery without angina pectoris (ICD-10) Diabetes ?E11.9 - Type 2 diabetes mellitus without complications (ICD-10) Surgical History History of heart artery stent ?Z95.5 - Presence of coronary angioplasty implant and graft (ICD-10) Family History Mother Family history of CHF (congestive heart failure) Father Family history of hypertension Family/Other Family history of hypertension Social History (Updated 10/04/23 @ 00:00 by Brenda Crenshaw) Within the past year, how often did you have a drink containing alcohol: never Score interpretation: A score less than 3 is consistent with normal alcohol consumption. Smoking status: Former smoker Non-prescribed substance use: denies use Previous occupational history: none Highest level of school completed/degree received: Associate degree: academic program Are you now , , , , never or living with a partner: In a typical week, how many times do you talk on the telephone with family, friends, or neighbors: 3 or more times per week How often do you get together with friends or relatives: 3 or more times per week How often do you attend latter day or catholic services: never Little interest or pleasure in doing things: not at all Feeling down, depressed, or hopeless: not at all Feel stressed/tense/nervous/anxious/difficulty sleeping: not at all Do you think of yourself as: straight/heterosexual Gender Identity: female Exam Narrative Exam Narrative: Nurses note and vital signs reviewed and patient is not hypoxic. General: The patient appears uncomfortable. Skin: Warm, dry, no pallor noted. There is no rash noted. Head: Normocephalic, atraumatic Eye: Normal conjunctiva, no drainage Ears, Nose, Mouth, and Throat: oral mucosa is moist. Nares patent. Cardiovascular: Regular Rate and Rhythm Respiratory: Patient is in no distress, no accessory muscle use, lungs are clear to auscultation, no wheezing, rales or rhonchi Back: non-tender GI: Obese and nontender : Left labial has tenderness and fullness. There appears to be 2 or perhaps 3 discrete raised areas that are quite tender but not fluctuant. There is no open area or drainage. Musculoskeletal: The patient has no evidence of calf tenderness, no pitting edema, symmetrical pulses noted bilaterally Neurological: A&O, normal speech Psychiatric: Cooperative Constitutional Vital Signs, click to edit/add: Last Vital Signs Temp 97.8 F 10/07/23 01:36 Pulse 81 10/07/23 04:31 Resp 16 10/07/23 04:31 BP 92/62 10/07/23 04:31 Pulse Ox 97 10/07/23 04:31 O2 Del Method Room Air 10/07/23 04:31 Course Vital Signs Vital signs: Vital Signs Temperature 97.8 F 10/07/23 01:36 Pulse Rate 90 10/07/23 01:36 Respiratory Rate 16 10/07/23 01:36 Blood Pressure 130/69 10/07/23 01:36 Pulse Oximetry 100 10/07/23 01:36 Oxygen Delivery Method Room Air 10/07/23 01:36 Temperature 97.8 F 10/07/23 01:36 Pulse Rate 81 10/07/23 04:31 Respiratory Rate 16 10/07/23 04:31 Blood Pressure 92/62 10/07/23 04:31 Pulse Oximetry 97 10/07/23 04:31 Oxygen Delivery Method Room Air 10/07/23 04:31 MDM - Female Genitourinary MDM Narrative Medical decision making narrative: WBC is normal. CAT scan shows no change from previous. I discussed the case with Dr. Mascorro and with Dr. Yusuf, who is the attending pharmacy technician infusion at [facility] and knows the patient. Dr. Mascorro and Dr. Yusuf do not feel that the patient requires readmission to the hospital at this point. [facility] sent in a prescription for Keflex for her to her pharmacy and the patient was informed. I am sending a prescription for 15 Percocet to her pharmacy as well. Treatment diagnosis and follow-up were discussed with the patient. Differential Diagnosis Differential diagnosis: Likely other (Abscess, cellulitis) Lab Data Attestation: I reviewed the patient's lab results. Labs: Lab Results 10/07/23 Range/Units 02:36 WBC 5.1 (4.0-11.0) 10^3/uL RBC 3.99 L (4.20-5.40) 10^6/uL Hgb 12.4 (12.0-16.0) g/dL Hct 37.8 (36.0-48.0) % MCV 94.7 (81.0-99.0) fL MCH 31.1 (26.7-34.0) pg MCHC 32.8 (29.9-35.2) g/dL RDW 12.6 (11.0-15.0) % Plt Count 169 (150-450) 10^3/uL MPV 10.5 (9.5-13.5) fL Neut % (Auto) 55.3 (43.0-75.0) % Lymph % (Auto) 30.7 (20.5-60.0) % [place] % (Auto) 6.9 (1.7-12.0) % Eos % (Auto) 6.1 (0.9-7.0) % Baso % (Auto) 0.8 (0.2-2.0) % Neut # (Auto) 2.8 (1.4-6.5) 10^3/uL Lymph # (Auto) 1.6 (1.2-3.8) 10^3/uL [place] # (Auto) 0.4 (0.3-0.8) 10^3/uL Eos # (Auto) 0.3 (0.0-0.7) 10^3/uL Baso # (Auto) 0.0 (0.0-0.1) 10^3/uL Abs Immat Gran (auto) 0.01 (0.00-0.03) 10^3/uL Imm/Tot Granulo (auto) 0.2 (0.0-0.5) % Sodium 140 (136-145) mmol/L Potassium 3.4 L (3.5-5.1) mmol/L Chloride 105 (98-107) mmol/L Carbon Dioxide 30.5 (21.0-32.0) mmol/L Anion Gap 7.9 BUN 17.0 (7.0-18.0) mg/dL Creatinine 0.80 (0.55-1.02) mg/dL Est GFR ( Amer) >60 (>=60) Est GFR (Non-Af Amer) >60 (>=60) BUN/Creatinine Ratio 21.2 Glucose 162 H (74-106) mg/dL Calcium 8.8 (8.5-10.1) mg/dL Imaging Data CT pelvis: Radiologist's impression: ITS Impressions Pelvis CT 10/07/23 02:23 IMPRESSION: Superficial 3.3 cm left labial abscess, not significantly changed from 4 days ago. Negative for soft tissue gas. No other acute pelvic findings. Electronically authenticated by: DONOVAN CASTANO Date: 10/07/2023 03:56 Discharge Plan Discharge Stand Alone Forms: Portal Instructions Chief Complaint: Urogenital-Female Clinical Impression: Left genital labial abscess Patient Disposition: Home, Self-Care Time of Disposition Decision: 04:42 Condition: Good Mode of Transportation: Private Vehicle Prescriptions / Home Meds: New oxycodone-acetaminophen [Percocet] 5-325 mg tablet 1 tab PO Q6H PRN (Reason: pain) 3 Days Qty: 15 0RF No Action promethazine 25 mg tablet 25 mg PO TID PRN (Reason: nausea and vomiting) metoprolol succinate 25 mg tablet extended release 24 hr 25 mg PO BID mounjaro 12.5 mg IM .weekly ezetimibe 10 mg tablet 10 mg PO DAILY clopidogrel [Plavix] 75 mg tablet 75 mg PO DAILY aspirin 81 mg tablet,delayed release (DR/EC) 81 mg PO DAILY atorvastatin 80 mg tablet 80 mg PO QPM Jardiance 25 mg tablet 25 mg PO DAILY alprazolam [Xanax] 1 mg tablet 0.5 mg PO TID losartan 25 mg tablet 25 mg PO DAILY hydroxyzine pamoate 25 mg capsule 25 mg PO BID PRN (Reason: anxiety) omeprazole 20 mg capsule,delayed release(DR/EC) 20 mg PO DAILY PRN (Reason: stomach upset) metformin 1,000 mg tablet 1,000 mg PO BID clindamycin HCl 300 mg capsule 300 mg PO Q6H 7 Days Qty: 28 0RF gabapentin 400 mg capsule 800 mg PO TID oxycodone-acetaminophen [Percocet] 5-325 mg tablet 1 tab PO Q6H PRN (Reason: pain) Qty: 6 0RF Rx Instructions: DX. R10.9 Print Language: Setswana Instructions: Abscess (ED) Additional Instructions: Follow-up with your pharmacy technician infusion and fill the prescription for Keflex that was sent in by [facility]. Referrals: Yanet Junior NP [Primary Care Provider] - 1 week
[2023-10-07] MEDS: HYDROMORPHONE HCL 1 MG/ML CARTRIDGE IV (02:46)
[2023-10-07 02:51] LABS: Basophils Percent Auto 0.8 % (0.2-2.0); Eosinophils Absolute Auto 0.3 10^3/uL (0.0-0.7); Eosinophils Percent Auto 6.1 % (0.9-7.0); Hematocrit 37.8 % (36.0-48.0); Hemoglobin 12.4 g/dL (12.0-16.0); Immature Granulocytes Abs Auto 0.01 10^3/uL (0.00-0.03); Immature Granulocytes Pct Auto 0.2 % (0.0-0.5); Lymphocytes Absolute Auto 1.6 10^3/uL (1.2-3.8); Lymphocytes Percent Auto 30.7 % (20.5-60.0); Mean Corpuscular HGB Conc 32.8 g/dL (29.9-35.2); Mean Corpuscular Hemoglobin 31.1 pg (26.7-34.0); Mean Corpuscular Volume 94.7 fL (81.0-99.0); Mean Platelet Volume 10.5 fL (9.5-13.5); Monocytes Absolute Auto 0.4 10^3/uL (0.3-0.8); Monocytes Percent Auto 6.9 % (1.7-12.0); Neutrophils Absolute Auto 2.8 10^3/uL (1.4-6.5); Neutrophils Percent Auto 55.3 % (43.0-75.0); Platelet Count 169 10^3/uL (150-450); Red Blood Count 3.99 10^6/uL (4.20-5.40); Red Cell Distribution Width 12.6 % (11.0-15.0); White Blood Count 5.1 10^3/uL (4.0-11.0)
[2023-10-07 03:00] LABS: Anion Gap 7.9; BUN Creatinine Ratio 21.2; Calcium 8.8 mg/dL (8.5-10.1); Carbon Dioxide 30.5 mmol/L (21.0-32.0); Chloride 105 mmol/L (98-107); Estimated GFR (African America >60 (>=60); Estimated GFR (Non-African Ame >60 (>=60); Glucose 162 mg/dL (74-106); Potassium 3.4 mmol/L (3.5-5.1); Sodium 140 mmol/L (136-145)
[2023-10-07 03:39] VITALS: BP 92/27; PULSE 82; O2SAT 96
[2023-10-07 04:31] VITALS: BP 92/62; PULSE 81; O2SAT 97
[2023-10-07] MEDS: OXYCODONE HCL/ACETAMINOPHEN 5MG/325MG 1 TAB PO (04:56)
== END 2023-10-07 04:59 | disposition home or self-care (01) ==
PROVIDERS: Emergency Provider Emergency Medicine; PCP Nurse Practitioner
DX: N76.4 Abscess of vulva (principal); Z87.891 Personal history of nicotine dependence
CPT/HCPCS: 36415; 72193; 80048; 85025; 96374; 99281; 99284; J1170; Q9967

== ENCOUNTER 2023-10-07 16:05 | Emergency (ER) | payer OTHER, SELFPAY ==
[2023-10-07 16:10] VITALS: BP 101/69; PULSE 98; TEMP 36.9; O2SAT 98; BMI 40.7
--- NOTE | 2023-10-07 16:20 | ED.SKABFB1 ---
HPI - Skin/Abscess/Foreign Bdy General Chief complaint: Skin/Abscess/Foreign Body Stated complaint: Abscess Time Seen by Provider: 10/07/23 16:08 Source: patient Mode of arrival: walk-in Limitations: no limitations History of Present Illness HPI narrative: Patient is a 42-year-old female who presents to the ER for reevaluation of a swollen area to the left labia. Patient states she needs better pain control and would like to be readmitted for IV antibiotics to the hospital. She was seen twice at an outside emergency department with an I&D performed for left labial abscess last week. She then presented to this emergency department and was admitted for IV antibiotics, she was transferred to [facility] for management of the labial abscess without incision and drainage and was discharged home yesterday. She presented to this emergency department about 12 hours ago for the same symptoms. She was seen in her [facility] office today. She was prescribed Bactrim, Keflex and Percocet earlier today and states she has taken 2 doses of the Percocet. She states she feels the area is worsening and she needs to be admitted for IV pain medication and antibiotics. No new fevers or vomiting. I received a phone call prior to the patient's evaluation in the ER from her [employer] [employer], Lupe Quiroz PA-C. She evaluated the patient today and did not feel she needed incision and drainage. She did not feel the patient needed to be admitted. She instructed the patient to go home and do warm compresses, Bactrim, Keflex and Percocet. Related Data Home Medications ?Medication ?Instructions ?Recorded ?Confirmed alprazolam 1 mg tablet (Xanax) 0.5 mg PO TID 08/25/22 10/07/23 aspirin 81 mg tablet,delayed 81 mg PO DAILY 08/25/22 10/07/23 release atorvastatin 80 mg tablet 80 mg PO QPM 08/25/22 10/07/23 clopidogrel 75 mg tablet (Plavix) 75 mg PO DAILY 08/25/22 10/07/23 empagliflozin 25 mg tablet 25 mg PO DAILY 08/25/22 10/07/23 (Jardiance) ezetimibe 10 mg tablet 10 mg PO DAILY 08/25/22 10/03/23 hydroxyzine pamoate 25 mg capsule 25 mg PO BID PRN anxiety 08/25/22 10/07/23 losartan 25 mg tablet 25 mg PO DAILY 08/25/22 10/07/23 metformin 1,000 mg tablet 1,000 mg PO BID 08/25/22 10/07/23 metoprolol succinate 25 mg 25 mg PO BID 08/25/22 10/07/23 tablet,extended release 24 hr mounjaro 12.5 mg IM .weekly 08/25/22 10/07/23 omeprazole 20 mg capsule,delayed 20 mg PO DAILY PRN stomach upset 08/25/22 10/07/23 release gabapentin 400 mg capsule 800 mg PO TID 08/26/22 10/07/23 promethazine 25 mg tablet 25 mg PO TID PRN nausea and 10/03/23 10/07/23 vomiting Previous Rx's ?Medication ?Instructions ?Recorded oxycodone-acetaminophen 5 mg-325 1 tab PO Q6H PRN pain #6 tabs 10/02/22 mg tablet (Percocet) oxycodone-acetaminophen 5 mg-325 1 tab PO Q6H PRN pain 3 days #15 10/07/23 mg tablet (Percocet) tabs Allergies Allergy/AdvReac Type Severity Reaction Status Date / Time penicillin G AdvReac Intermediate Abdominal Verified 10/07/23 16:10 Pain tramadol [From Ultram] AdvReac Intermediate Abdominal Verified 10/07/23 16:10 Pain acetaminophen [From Vicodin] AdvReac Nausea Verified 10/07/23 16:10 hydrocodone [From Vicodin] AdvReac Nausea Verified 10/07/23 16:10 Review of Systems ROS Constitutional Denies: fever or chills Respiratory Denies: shortness of breath Gastrointestinal Denies: abdominal pain, nausea or vomiting Integumentary/Breast Denies: rash Neurological Denies: headache Hematologic/Lymphatic Denies: easy bruising or easy bleeding PFSH PFSH Medical History (Updated 10/07/23 @ 16:39 by YEIMY Vu) Kidney stones ?N20.0 - Calculus of kidney (ICD-10) Neuropathy ?G62.9 - Polyneuropathy, unspecified (ICD-10) Myocardial infarction ?I21.9 - Acute myocardial infarction, unspecified (ICD-10) JARAD (generalized anxiety disorder) ?F41.1 - Generalized anxiety disorder (ICD-10) HLD (hyperlipidemia) ?E78.5 - Hyperlipidemia, unspecified (ICD-10) HTN (hypertension) ?I10 - Essential (primary) hypertension (ICD-10) CAD (coronary artery disease) ?I25.10 - Atherosclerotic heart disease of [place] coronary artery without angina pectoris (ICD-10) Diabetes ?E11.9 - Type 2 diabetes mellitus without complications (ICD-10) Surgical History History of heart artery stent ?Z95.5 - Presence of coronary angioplasty implant and graft (ICD-10) Family History Mother Family history of CHF (congestive heart failure) Father Family history of hypertension Family/Other Family history of hypertension Social History Within the past year, how often did you have a drink containing alcohol: never Score interpretation: A score less than 3 is consistent with normal alcohol consumption. Smoking status: Former smoker Non-prescribed substance use: denies use Previous occupational history: none Highest level of school completed/degree received: Associate degree: academic program Are you now , , , , never or living with a partner: In a typical week, how many times do you talk on the telephone with family, friends, or neighbors: 3 or more times per week How often do you get together with friends or relatives: 3 or more times per week How often do you attend amish or yazidi services: never Little interest or pleasure in doing things: not at all Feeling down, depressed, or hopeless: not at all Feel stressed/tense/nervous/anxious/difficulty sleeping: not at all Do you think of yourself as: straight/heterosexual Gender Identity: female Exam Narrative Exam Narrative: Gen.: Awake, alert, in no distress Head: Normocephalic, atraumatic ENT: Moist mucous membranes Respiratory: No respiratory distress Cardio: Regular rate and rhythm : Patient examined with Missy Kruger RN at bedside throughout the duration of the exam. Left labia is tender with mild swelling and firmness, no fluctuance. No drainage noted. No evidence of skin mottling or skin changes. Extremities: Moves extremities equally Psych: Normal mood and affect Neuro: No focal neuro deficit Skin: Warm, dry, intact Constitutional Vital Signs, click to edit/add: Last Vital Signs Temp 98.4 F 10/07/23 16:10 Pulse 98 H 10/07/23 16:10 Resp 16 10/07/23 16:10 BP 101/69 10/07/23 16:10 Pulse Ox 98 10/07/23 16:10 O2 Del Method Room Air 10/07/23 16:10 Course Vital Signs Vital signs: Vital Signs Temperature 98.4 F 10/07/23 16:10 Pulse Rate 98 H 10/07/23 16:10 Respiratory Rate 16 10/07/23 16:10 Blood Pressure 101/69 10/07/23 16:10 Pulse Oximetry 98 10/07/23 16:10 Oxygen Delivery Method Room Air 10/07/23 16:10 Temperature 98.4 F 10/07/23 16:10 Pulse Rate 98 H 10/07/23 16:10 Respiratory Rate 16 10/07/23 16:10 Blood Pressure 101/69 10/07/23 16:10 Pulse Oximetry 98 10/07/23 16:10 Oxygen Delivery Method Room Air 10/07/23 16:10 MDM - Skin/Abscess/Foreign Bdy MDM Narrative Medical decision making narrative: I discussed the case with Dr. Mascorro, the on-call [facility] [employer] who is adamant that this patient does not need to be readmitted. She is on appropriate treatment with antibiotics and pain medication at home. She also has a follow-up appointment next week with [facility] to reevaluate the area. On my exam, there is no evidence of necrotizing fasciitis, patient has stable vital signs, no indication for further procedure at this time. She is hemodynamically stable. Dr. Hoffman gave the patient education and reassurance. She does not need to be admitted at this time. She should continue home treatment. SHARED APC VISIT, PHYSICIAN ATTESTATION: [id number] I performed a substantive part of the MDM during the patient?s E/M visit. I personally evaluated and examined the patient. I personally made or approved the documented management plan and acknowledge its risk of complications. Medical Records Attestation: I reviewed the patient's medical records. Discharge Plan Discharge Stand Alone Forms: Portal Instructions Chief Complaint: Skin/Abscess/Foreign Body Clinical Impression: Abscess of labia Patient Disposition: Home, Self-Care Time of Disposition Decision: 16:38 Condition: Good Prescriptions / Home Meds: No Action promethazine 25 mg tablet 25 mg PO TID PRN (Reason: nausea and vomiting) oxycodone-acetaminophen [Percocet] 5-325 mg tablet 1 tab PO Q6H PRN (Reason: pain) 3 Days Qty: 15 0RF metoprolol succinate 25 mg tablet extended release 24 hr 25 mg PO BID mounjaro 12.5 mg IM .weekly ezetimibe 10 mg tablet 10 mg PO DAILY clopidogrel [Plavix] 75 mg tablet 75 mg PO DAILY aspirin 81 mg tablet,delayed release (DR/EC) 81 mg PO DAILY atorvastatin 80 mg tablet 80 mg PO QPM Jardiance 25 mg tablet 25 mg PO DAILY alprazolam [Xanax] 1 mg tablet 0.5 mg PO TID losartan 25 mg tablet 25 mg PO DAILY hydroxyzine pamoate 25 mg capsule 25 mg PO BID PRN (Reason: anxiety) omeprazole 20 mg capsule,delayed release(DR/EC) 20 mg PO DAILY PRN (Reason: stomach upset) metformin 1,000 mg tablet 1,000 mg PO BID gabapentin 400 mg capsule 800 mg PO TID oxycodone-acetaminophen [Percocet] 5-325 mg tablet 1 tab PO Q6H PRN (Reason: pain) Qty: 6 0RF Rx Instructions: DX. R10.9 Print Language: Dutch Instructions: Bartholin Cyst (ED) Referrals: Lupe Quiroz [Physician [employer]] - 1 week Yanet Junior NP [Primary Care Provider] - 1 week
== END 2023-10-07 16:45 | disposition home or self-care (01) ==
PROVIDERS: Emergency Provider Emergency Medicine; PCP Nurse Practitioner
DX: N76.4 Abscess of vulva (principal); Z87.891 Personal history of nicotine dependence
CPT/HCPCS: 99281

== ENCOUNTER 2023-10-12 15:42 | Emergency (ER) | payer OTHER, SELFPAY ==
[2023-10-12 16:16] VITALS: BP 132/88; PULSE 96; TEMP 36.8; O2SAT 97; O2SAT 98; BMI 41.6
--- NOTE | 2023-10-12 17:59 | ED_ITS ---
HPI - Female Genitourinary General Chief complaint: Urogenital-Female Stated complaint: Medication REFILL in allot of pain Time Seen by Provider: 10/12/23 17:11 Source: patient Mode of arrival: walk-in Limitations: no limitations History of Present Illness HPI Narrative: This patient is here requesting pain medication. She has has a prescription but the pharmacy will not fill tomorrow because of previous usage. She has been seeing a number of ORGANIZATION DEVELOP[facility] CONSULTANT physicians a number of ER doctors and has been at a couple different hospitals. Historically she states that they initially felt that she had a abscess in the labia area. She has been seen by a number of nursing aide at this [facility] and in [facility]. Because of her comorbidities they felt that she should be evaluated tertiary center and a biopsy/excision should be done. She tells me that she did go up to [facility] was in her room and someone came in and discharged her before any procedures biopsies or excisional procedure was done. She states after that time she went to [facility] and they did an excision and told her they thought it was a malignancy final pathology reports are pending. She has a nursing aide here in the [facility] but she has not actually seen him although she was admitted here and saw the associate. She has been given doses of narcotic analgesics by several practitioners as noted on her [facility] report. She has not been running a fever. She has a follow-up appointment to see her nursing aide at this [facility] and she is scheduled to get her pathology reports from the [facility] and the next several days. She has been told that she had a malignancy of the area. Related Data Home Medications ?Medication ?Instructions ?Recorded ?Confirmed alprazolam 1 mg tablet (Xanax) 0.5 mg PO TID 08/25/22 10/07/23 aspirin 81 mg tablet,delayed 81 mg PO DAILY 08/25/22 10/07/23 release atorvastatin 80 mg tablet 80 mg PO QPM 08/25/22 10/07/23 clopidogrel 75 mg tablet (Plavix) 75 mg PO DAILY 08/25/22 10/07/23 empagliflozin 25 mg tablet 25 mg PO DAILY 08/25/22 10/07/23 (Jardiance) ezetimibe 10 mg tablet 10 mg PO DAILY 08/25/22 10/03/23 hydroxyzine pamoate 25 mg capsule 25 mg PO BID PRN anxiety 08/25/22 10/07/23 losartan 25 mg tablet 25 mg PO DAILY 08/25/22 10/07/23 metformin 1,000 mg tablet 1,000 mg PO BID 08/25/22 10/07/23 metoprolol succinate 25 mg 25 mg PO BID 08/25/22 10/07/23 tablet,extended release 24 hr mounjaro 12.5 mg IM .weekly 08/25/22 10/07/23 omeprazole 20 mg capsule,delayed 20 mg PO DAILY PRN stomach upset 08/25/22 10/07/23 release gabapentin 400 mg capsule 800 mg PO TID 08/26/22 10/07/23 promethazine 25 mg tablet 25 mg PO TID PRN nausea and 10/03/23 10/07/23 vomiting Previous Rx's ?Medication ?Instructions ?Recorded oxycodone-acetaminophen 5 mg-325 1 tab PO Q6H PRN pain #6 tabs 10/02/22 mg tablet (Percocet) oxycodone-acetaminophen 5 mg-325 1 tab PO Q6H PRN pain 3 days #15 10/07/23 mg tablet (Percocet) tabs Allergies Allergy/AdvReac Type Severity Reaction Status Date / Time penicillin G AdvReac Intermediate Abdominal Verified 10/07/23 16:10 Pain tramadol [From Ultram] AdvReac Intermediate Abdominal Verified 10/07/23 16:10 Pain acetaminophen [From Vicodin] AdvReac Nausea Verified 10/07/23 16:10 hydrocodone [From Vicodin] AdvReac Nausea Verified 10/07/23 16:10 PFSH PFSH Medical History (Updated 10/12/23 @ 18:09 by Walt Leon MD) Kidney stones ?N20.0 - Calculus of kidney (ICD-10) Neuropathy ?G62.9 - Polyneuropathy, unspecified (ICD-10) Myocardial infarction ?I21.9 - Acute myocardial infarction, unspecified (ICD-10) JARAD (generalized anxiety disorder) ?F41.1 - Generalized anxiety disorder (ICD-10) HLD (hyperlipidemia) ?E78.5 - Hyperlipidemia, unspecified (ICD-10) HTN (hypertension) ?I10 - Essential (primary) hypertension (ICD-10) CAD (coronary artery disease) ?I25.10 - Atherosclerotic heart disease of [place] coronary artery without angina pectoris (ICD-10) Diabetes ?E11.9 - Type 2 diabetes mellitus without complications (ICD-10) Surgical History History of heart artery stent ?Z95.5 - Presence of coronary angioplasty implant and graft (ICD-10) Family History Mother Family history of CHF (congestive heart failure) Father Family history of hypertension Family/Other Family history of hypertension Social History Within the past year, how often did you have a drink containing alcohol: never Score interpretation: A score less than 3 is consistent with normal alcohol consumption. Smoking status: Former smoker Non-prescribed substance use: denies use Previous occupational history: none Highest level of school completed/degree received: Associate degree: academic program Are you now , , , , never or living with a partner: In a typical week, how many times do you talk on the telephone with family, friends, or neighbors: 3 or more times per week How often do you get together with friends or relatives: 3 or more times per week How often do you attend evangelical or zoroastrianism services: never Little interest or pleasure in doing things: not at all Feeling down, depressed, or hopeless: not at all Feel stressed/tense/nervous/anxious/difficulty sleeping: not at all Do you think of yourself as: straight/heterosexual Gender Identity: female Exam Narrative Exam Narrative: Vital noted and are stable. She is anxious and tearful. She says her son dropped her off. She was on the phone texting him when we are interviewing the patient. I have reviewed several of her previous ER records here and they are consistent with her story. I do not have the information from [facility] or [facility]. She is requesting examination In the presence of 2 members of the nursing staff a pelvic examination was conducted. The right-sided labia appears normal. At the upper aspect of the left labia at approximately 2 o'clock position there is a healing wound consistent with an excision procedure. There is no surrounding fluctuance. No other bruising ecchymosis or abnormalities are noted. Constitutional Vital Signs, click to edit/add: Last Vital Signs Temp 98.3 F 10/12/23 16:16 Pulse 96 H 10/12/23 16:16 Resp 20 10/12/23 16:16 BP 132/88 10/12/23 16:16 Pulse Ox 97 10/12/23 16:16 O2 Del Method Room Air 10/12/23 16:16 Course Vital Signs Vital signs: Vital Signs Temperature 98.3 F 10/12/23 16:16 Pulse Rate 96 H 10/12/23 16:16 Respiratory Rate 10/12/23 16:16 Blood Pressure 132/88 10/12/23 16:16 Pulse Oximetry 97 10/12/23 16:16 Oxygen Delivery Method Room Air 10/12/23 16:16 Temperature 98.3 F 10/12/23 16:16 Pulse Rate 96 H 10/12/23 16:16 Respiratory Rate 20 10/12/23 16:16 Blood Pressure 132/88 10/12/23 16:16 Pulse Oximetry 97 10/12/23 16:16 Oxygen Delivery Method Room Air 10/12/23 16:16 Discharge Plan Discharge Stand Alone Forms: Portal Instructions Chief Complaint: Urogenital-Female Clinical Impression: Labial lesion Patient Disposition: Home, Self-Care Time of Disposition Decision: 18:09 Prescriptions / Home Meds: No Action promethazine 25 mg tablet 25 mg PO TID PRN (Reason: nausea and vomiting) oxycodone-acetaminophen [Percocet] 5-325 mg tablet 1 tab PO Q6H PRN (Reason: pain) 3 Days Qty: 15 0RF metoprolol succinate 25 mg tablet extended release 24 hr 25 mg PO BID mounjaro 12.5 mg IM .weekly ezetimibe 10 mg tablet 10 mg PO DAILY clopidogrel [Plavix] 75 mg tablet 75 mg PO DAILY aspirin 81 mg tablet,delayed release (DR/EC) 81 mg PO DAILY atorvastatin 80 mg tablet 80 mg PO QPM Jardiance 25 mg tablet 25 mg PO DAILY alprazolam [Xanax] 1 mg tablet 0.5 mg PO TID losartan 25 mg tablet 25 mg PO DAILY hydroxyzine pamoate 25 mg capsule 25 mg PO BID PRN (Reason: anxiety) omeprazole 20 mg capsule,delayed release(DR/EC) 20 mg PO DAILY PRN (Reason: stomach upset) metformin 1,000 mg tablet 1,000 mg PO BID gabapentin 400 mg capsule 800 mg PO TID oxycodone-acetaminophen [Percocet] 5-325 mg tablet 1 tab PO Q6H PRN (Reason: pain) Qty: 6 0RF Rx Instructions: DX. R10.9 Print Language: Omani Additional Instructions: Follow-up with your nursing aide locally for final pathology results and ongoing management and pain control Referrals: Yanet Junior NP [Primary Care Provider] - 1 week
[2023-10-12] MEDS: OXYCODONE HCL/ACETAMINOPHEN 5MG/325MG 2 TAB PO (18:31)
[2023-10-12] MEDS: HYDROMORPHONE HCL 1 MG/ML CARTRIDGE IM (18:32)
[2023-10-12] MEDS: ONDANSETRON 4 MG RAPDIS TABLET SL (18:38)
== END 2023-10-12 18:43 | disposition home or self-care (01) ==
PROVIDERS: Emergency Provider Emergency Medicine Emergency Medical Services; PCP Nurse Practitioner
DX: N90.89 Other specified noninflammatory disorders of vulva and perineum (principal); Z87.891 Personal history of nicotine dependence
CPT/HCPCS: 99284; J1170; Q0162

== ENCOUNTER 2024-10-22 08:30 | Emergency (ER) | payer OTHER, SELFPAY ==
--- OUTSIDE RECORDS SUMMARY | 2024-10-10 08:00 | XMS_ITS ---
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 Name Role Phone Tamera Baker Primary Care Provider Allergies No Known Allergies REASON FOR VISIT has to be seen in person and also needs her letter, Pt states she has been doing average, Pt statesshe is still having her normal anxiety, depression, stress- same old stuff, Pt states she is sleeping okay, Pt's appetite is normal Medications Medication SIG (Take, Route, Frequency, Duration) Notes Start Date End Date Status Aspirin 81 MG 1 tablet Orally Once a day Active Jardiance 25 MG 1 tablet Orally Once a day Active Plavix 75 MG 1 tablet Orally Once a day Active Atorvastatin Calcium 80 MG 1 tablet Orally Once a day Active Losartan Potassium 25 MG 1 tablet Orally Once a day Active Venlafaxine HCl 100 MG 1 tablet with palmira d Orally Once a day; Duration: 30 days Active traZODone HCl 50 MG 1 or 2 tablet at bed time as needed Orally Once a day; Duration: 30 days Active metFORMIN HCl 500 MG 2 tablets Orally BID Active Gabapentin 400 MG 1 capsule Orally thr ee times a day (tid) as needed (prn) Active Mounjaro 2.5 MG/0.5ML as directed Subcut aneous once a week Active ARIPiprazole 5 MG TAKE 1 TABLET BY BANDAR TH EVERY DAY FOR 30 DAYS; Duration: 30 Not-Taking hydrOXYzine Pamoate 50 MG TAKE 1-2 CAPSULES 3 times a day by MOUTH ONCE A DAY as NEEDED FOR SLEEP Orally as directed Active Ozempic (0.25 or 0.5 MG/DOSE) 2 MG/1.5ML as directed Subcutaneous once a week Not-Taking busPIRone HCl 30 MG 1 tablet Orally Twic e a day; Duration: 30 days Active lamoTRIgine 200 mg TAKE 1 TABLET BY BANDAR TH DAILY; Duration: 30 days Active ALPRAZolam 1 MG 1 tablet Orally thre e times a day; Duration: 30 days 10/10/2024 Active Insulin Aspart FlexPen Not-Taking Natural Vitamin D-3 125 MCG (5000 UT) TAKE 1 TABLET BY MOUTH EVERY DAY Oral; Duration: 30 Days Active Vitamin B-12 1000 MCG TAKE 1 TABLET BY M OUTH EVERY DAY Oral; Duration: 30 Days Active ARIPiprazole 20 mg TAKE 1 TABLET BY BANDAR TH DAILY; Duration: 30 days Active Venlafaxine HCl 50 mg TAKE 1 TABLET BY M OUTH DAILY; Duration: 30 days Active Social History Tobacco Use: Social History Observation Description Date Details (start date - stop date) Current Smoker NA - NA Depression Screening (PHQ-9): Question Answer Notes Little interest or pleasure in doing things Not at all Feeling down, depressed, or hopeless Nearly ever y day Trouble falling or staying asleep, or sleeping t oo much Not at all Feeling tired or having little energy Not at all Poor appetite or overeating Not at all Feeling bad about yourself-o r that you are a failure or have let yourself or your family down Not at all Trouble concentrating on thi ngs, such as reading the newspaper or watching television Not at all Moving or speaking so slowly that other people could have noticed. Or the opposite being so fidgety or restless that you have been moving around a lot more than usual Not at all Thoughts that you would be b lainey off , or of hurting yourself in some way Not at all Total Score 3 Intepretation Minimal Depression AUDIT-C (Standard) Question Answer Notes Did you have a drink containing alcohol in the p ast year? No Points 0 Interpretation Negative Tobacco Control (Standard) Question Answer Notes Tobacco use: Current smoker How often do you smoke cigarettes? Every day How many cigarettes a day do you smoke? 6-10 How soon after you wake up do you smoke your fir st cigarette? 6-30 minutes Are you interested in quitting? 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 Made aware to not abruptly stop the medication. Made aware to notify the office or go to the ER if experience any abnormal repetitive movements. Also, made aware to notify office of any nausea, vomiting, or dizziness. Made aware to not stop medication abruptly. This is an FDA approved use for this medication. Discussed with patient crisis plan. Provided crisis hotline number. States has good support system. Made aware to contact office if has an increase in suicidal thoughts. If outside of office hours, patient to go to the ER. Patient will call the office with any questions or concerns. Lamictal: Patient educated on dosing schedule of medication. Made aware to make prescriber aware of any unexplainable rash or flu-like symptoms. If outside of office hours patient should report to the ER. Made aware to contact the office with any questions or concerns. Provided crisis hotline number. Patient states has good support system. Will call office or report to the ER with suicidal ideations. Educated on Buspar is a medication used for anxiety. The medication can cause dizziness, sedation, and restless. Please contact the office if you experience these symptoms. The medication typically takes 2-4 weeks to achieve efficacy. Made aware to contact office if symptoms worsen. antidepressant. Made aware of Black Box Warning that it can increase suicidal thoughts, especially in minors. If this happens go to the ER. Make the office aware or go to the ER, if you experience seizures or an increase in activity and irritability. Made aware to not abruptly stop medication. Medication can cause headache and nausea. . Denies suicidal or homicidal ideation or plan. No morbid thoughts. Interpersonal issues discussed. Support provided Insight oriented/ Behavior modifying/ Supportive therapy . . Discussed seriousness of taking benzodiazepine medication daily and as needed, risks and benefits discussed including risk of addiction and accidental . Pt verbalized understanding. . High risk medications are drugs that have a heightened risk of causing significant patient harm when they are used in error. High risk medicines include medicines: with a low therapeutic index. that present a high risk when administered by the wrong route or when other system errors occur. Please notify provider for any concerns about your medications. . 10/10/2024 Major depressive disorder, recurrent episode, moderate (ICD-10 - F33.1) Educated on antidepressant. Made aware of Black Box Warning that it can increase suicidal thoughts, especially in minors. If this happens go to the ER. Make the office aware or go to the ER, if you experience seizures or an increase in activity and irritability. Made aware to not abruptly stop medication. Medication can cause headache and nausea. . Denies suicidal or homicidal ideation or plan. No morbid thoughts. Interpersonal issues discussed. Support provided Insight oriented/ Behavior modifying/ Supportive therapy Hydroxyzine: Made aware that the med will cause sedation, dry mouth, and urinary retention. Do not take before driving a car until you know how the med will affect you. Do not take the medication if . Do not take with other ROVING MACHINE OPERATOR depressants. Call 911 for difficulty breathing. . . Informed consent obtained: YES, we discussed the diagnosis/diagnoses , the treatment options, treatment(s) recommended vs. no treatment. We discussed risks and benefits of treatment options, treatment recommendations vs. no treatment. . . Pt is to continue current treatment plan Has good tolerability and compliance with medication Call for problems All questions and concerns discussed . 10/10/2024 Unspecified Trauma- & Stressor-Relate d Disorder (ICD-10 - F43.9) Plan Of Treatment Medication Medication Name Sig Start Date Stop Date Notes Venlafaxine HCl 100 MG 1 tablet with palmira d Orally Once a day; Duration: 30 days traZODone HCl 50 MG 1 or 2 tablet at bed time as needed Orally Once a day; Duration: 30 days hydrOXYzine Pamoate 50 MG TAKE 1-2 CAPSU LES 3 times a day by MOUTH ONCE A DAY as NEEDED FOR SLEEP Orally as directed busPIRone HCl 30 MG 1 tablet Orally Twic e a day; Duration: 30 days lamoTRIgine 200 mg TAKE 1 TABLET BY BANDAR TH DAILY; Duration: 30 days ALPRAZolam 1 MG 1 tablet Orally thre e times a day; Duration: 30 days 10/10/2024 ARIPiprazole 20 mg TAKE 1 TABLET BY BANDAR TH DAILY; Duration: 30 days Venlafaxine HCl 50 mg TAKE 1 TABLET BY M OUTH DAILY; Duration: 30 days Treatment Notes Assessment Notes Generalized anxiety disorder Patient educated on antipsychotic dosing schedule and side effects. Made aware to not abruptly stop the medication. Made aware to notify the office or go to the ER if experience any abnormal repetitive movements. Also, made aware to notify office of any nausea, vomiting, or dizziness. Made aware to not stop medication abruptly. This is an FDA approved use for this medication. Discussed with patient crisis plan. Provided crisis hotline number. States has good support system. Made aware to contact office if has an increase in suicidal thoughts. If outside of office hours, patient to go to the ER. Patient will call the office with any questions or concerns. Lamictal: Patient educated on dosing schedule of medication. Made aware to make prescriber aware of any unexplainable rash or flu-like symptoms. If outside of office hours patient should report to the ER. Made aware to contact the office with any questions or concerns. Provided crisis hotline number. Patient states has good support system. Will call office or report to the ER with suicidal ideations. Educated on Buspar is a medication used for anxiety. The medication can cause dizziness, sedation, and restless. Please contact the office if you experience these symptoms. The medication typically takes 2-4 weeks to achieve efficacy. Made aware to contact office if symptoms worsen. antidepressant. Made aware of Black Box Warning that it can increase suicidal thoughts, especially in minors. If this happens go to the ER. Make the office aware or go to the ER, if you experience seizures or an increase in activity and irritability. Made aware to not abruptly stop medication. Medication can cause headache and nausea. . Denies suicidal or homicidal ideation or plan. No morbid thoughts. Interpersonal issues discussed. Support provided Insight oriented/ Behavior modifying/ Supportive therapy . . Discussed seriousness of taking benzodiazepine medication daily and as needed, risks and benefits discussed including risk of addiction and accidental . Pt verbalized understanding. . High risk medications are drugs that have a heightened risk of causing significant patient harm when they are used in error. High risk medicines include medicines: with a low therapeutic index. that present a high risk when administered by the wrong route or when other system errors occur. Please notify provider for any concerns about your medications. . Major depressive disorder, r ecurrent episode, moderate Educated on antidepressant. Made aware of Black Box Warning that it can increase suicidal thoughts, especially in minors. If this happens go to the ER. Make the office aware or go to the ER, if you experience seizures or an increase in activity and irritability. Made aware to not abruptly stop medication. Medication can cause headache and nausea. . Denies suicidal or homicidal ideation or plan. No morbid thoughts. Interpersonal issues discussed. Support provided Insight oriented/ Behavior modifying/ Supportive therapy Hydroxyzine: Made aware that the med will cause sedation, dry mouth, and urinary retention. Do not take before driving a car until you know how the med will affect you. Do not take the medication if . Do not take with other ROVING MACHINE OPERATOR depressants. Call 911 for difficulty breathing. . . Informed consent obtained: YES, we discussed the diagnosis/diagnoses, the treatment options, treatment(s) recommended vs. no treatment. We discussed risks and benefits of treatment options, treatment recommendations vs. no treatment. . . Pt is to continue current treatment plan Has good tolerability and compliance with medication Call for problems All questions and concerns discussed . Next Appt Details Follow Up: 4 Weeks, Reason: Provider Name:Tamera leavitt, 11/07/2024 01:45:00 PM, [address] [place], [address], Provider Name:Tamera leavitt, 11/17/2024 10:00:00 AM, [address] [place], [address], Progress Notes * TISH VARGAS NDOB:1980 (43 yo F)Acc No.[id number]:10/10/2024 Behavioral Health Patient: TISH GRIFFIN Appointment Provider: ROSY MILLAN :1980 A ge:43 Y S ex:Female Date:10/10/2024 Address:[address] [id number] Subjective: * Chief Complaints: * H as to be seen in person and also needs her letterPt states she has been doing averagePt states she is still having her normal anxiety, depression, stress- same old stuffPt states she is sleeping okayPt's appetite is normal * HPI: C onstitutional: Pt is being seen today for follow up via in-office visit. Pt is tolerating meds well and taking medications daily. . Pt states that states that she has been worried about her brother. States that she is afraid that he will end up in senior care. Is having to move out of her apartment so renovations could be done. Will increase dsoe of buspar . Pt denies mood fluctuation. Energy and motivation are stable. Depressive symptoms are not persistent. Denies episodes of having sadness, anhedonia, isolating behaviors, or crying spells. Anxiety is not controlled. Concentration intact without distractibility. . Sleeping through the night and feels rested upon waking up. Denies Nightmares. Appetite is good. . Denies Euphoria. Pervasive irritability is controlled today. Meaningful relationships intact. Denies increased goal-oriented behavior or increase in purposeless activity. Attending work/school as scheduled. . Denies suicidal or homicidal ideation or plan. No morbid thoughts. Interpersonal issues discussed. Support provided. Insight oriented/ Behavior modifying/ Supportive therapy . Plan: f/u in 1 mo. D epression Screening: PHQ-2 (2015 Edition) L ittle interest or pleasure in doing things??Several days F eeling down, depressed, or hopeless? S everal days T otal Score 2 * ROS: C ONSTITUTIONAL: No fever, chills, sweats, weakness SKIN: No jaundice, rash, lesions, petechiae GASTROINTESTINAL: No nausea, vomiting, diarrhea, or GI bleeding MUSCULOSKELETAL: No muscle pain or weakness NEUROLOGIC: No headache, dizziness, numbness, or weakness . * Medical History: * Surgical History: C -section x2 Hernia repair x7 Stents x2 hysterectomy abcess biopsy * Hospitalization/Major Diagno stic Procedure: T for kidney infection * Family History: F ather: alive. M other: . 3 brother(s) , 3 sister(s) - healthy. 2 son(s) - healthy. . * Social History: G eneral: D epression Screening (PHQ-9) L ittle interest or pleasure in doing things?Not at all F eeling down, depressed, or hopeless N early every day T rouble falling or staying asleep, or sleeping too much N ot at all F eeling tired or having little energy N ot at all P oor appetite or overeating N ot at all F eeling bad about yourself-or that you are a failure or have let yourself or your family down N ot at all T rouble concentrating on things, such as reading the newspaper or watching television N ot at all M oving or speaking so slowly that other people could have noticed. Or the opposite being so fidgety or restless that you have been moving around a lot more than usual N ot at all T houghts that you would be better off , or of hurting yourself in some way N ot at all T otal Score 3 I ntepretation M inimal Depression D rug/Alcohol: A SARAI-C (Standard) D id you have a drink containing alcohol in the past year? N o P oints 0 I nterpretation N egative T obacco Use: T obacco Control (Standard) T obacco use: C urrent smoker H ow often do you smoke cigarettes? E very day H ow many cigarettes a day do you smoke? 6 -10 H ow soon after you wake up do you smoke your first cigarette? 6 -30 minutes A re you interested in quitting? R eusebio to quit * Medications: T akingMounjaro 2.5 MG/0.5ML Solution Pen-injector as directed Subcutaneous once a week Gabapentin 400 MG Capsule 1 capsule Orally three times a day (tid) as needed (prn) metFORMIN HCl 500 MG Tablet 2 tablets Orally BID Aspirin 81 MG Capsule 1 tablet Orally Once a day Losartan Potassium 25 MG Tablet 1 tablet Orally Once a day Atorvastatin Calcium 80 MG Tablet 1 tablet Orally Once a day Plavix 75 MG Tablet 1 tablet Orally Once a day Jardiance 25 MG Tablet 1 tablet Orally Once a day traZODone HCl 50 MG Tablet 1 or 2 tablet at bedtime as needed Orally Once a day hydrOXYzine Pamoate 50 MG Capsule TAKE 1-2 CAPSULES 3 times a day by MOUTH ONCE A DAY as NEEDED FOR SLEEP Orally as directed Venlafaxine HCl 100 MG Tablet 1 tablet with food Orally Once a day busPIRone HCl 10 MG Tablet 2 tablets Orally Twice a day lamoTRIgine 200 mg Tablet TAKE 1 TABLET BY MOUTH DAILY ARIPiprazole 20 mg Tablet TAKE 1 TABLET BY MOUTH DAILY ALPRAZolam 1 MG Tablet 1 tablet Orally three times a day Venlafaxine HCl 50 mg Tablet TAKE 1 TABLET BY MOUTH DAILY Vitamin B-12 1000 MCG Tablet TAKE 1 TABLET BY MOUTH EVERY DAY Oral Natural Vitamin D-3 125 MCG (5000 UT) Tablet TAKE 1 TABLET BY MOUTH EVERY DAY Oral Taking Mounjaro 2.5 MG/0.5ML Solution Pen-injector as directed Subcutaneous once a week Taking Gabapentin 400 MG Capsule 1 capsule Orally three times a day (tid) as needed (prn) Taking metFORMIN HCl 500 MG Tablet 2 tablets Orally BID Taking Aspirin 81 MG Capsule 1 tablet Orally Once a day Taking Losartan Potassium 25 MG Tablet 1 tablet Orally Once a day Taking Atorvastatin Calcium 80 MG Tablet 1 tablet Orally Once a day Taking Plavix 75 MG Tablet 1 tablet Orally Once a day Taking Jardiance 25 MG Tablet 1 tablet Orally Once a day Taking traZODone HCl 50 MG Tablet 1 or 2 tablet at bedtime as needed Orally Once a day Taking hydrOXYzine Pamoate 50 MG Capsule TAKE 1-2 CAPSULES 3 times a day by MOUTH ONCE A DAY as NEEDED FOR SLEEP Orally as directed Taking Venlafaxine HCl 100 MG Tablet 1 tablet with food Orally Once a day Taking busPIRone HCl 10 MG Tablet 2 tablets Orally Twice a day Taking lamoTRIgine 200 mg Tablet TAKE 1 TABLET BY MOUTH DAILY Taking ARIPiprazole 20 mg Tablet TAKE 1 TABLET BY MOUTH DAILY Taking ALPRAZolam 1 MG Tablet 1 tablet Orally three times a day Taking Venlafaxine HCl 50 mg Tablet TAKE 1 TABLET BY MOUTH DAILY Taking Vitamin B-12 1000 MCG Tablet TAKE 1 TABLET BY MOUTH EVERY DAY Oral Taking Natural Vitamin D-3 125 MCG (5000 UT) Tablet TAKE 1 TABLET BY MOUTH EVERY DAY Oral Not-Taking/PRNInsulin Aspart FlexPen Ozempic (0.25 or 0.5 MG/DOSE) 2 MG/1.5ML Solution Pen-injector as directed Subcutaneous once a week ARIPiprazole 5 MG Tablet TAKE 1 TABLET BY MOUTH EVERY DAY FOR 30 DAYS Medication List reviewed and reconciled with the patientNot-Taking/PRN Insulin Aspart FlexPen Not-Taking/PRN Ozempic (0.25 or 0.5 MG/DOSE) 2 MG/1.5ML Solution Pen-injector as directed Subcutaneous once a week Not-Taking/PRN ARIPiprazole 5 MG Tablet TAKE 1 TABLET BY MOUTH EVERY DAY FOR 30 DAYS Medication List reviewed and reconciled with the patient * Allergies: N .K.D.A.no[Allergies Verified] Objective: * Vitals: H t: 64 in, Wt: 242.4 lbs, BMI:41.6Index, Temp: 97.8 F, BP: 105/72 mm Hg, SaO2:94%, HR: 84 /min. * Examination: G eneral Examination: . AIMS EXAM: . AIMS Muscles of Facial Expression: None AIMS Lips and Perioral Area: None AIMS Jaw Area Involuntary Movements: None AIMS Tongue Involuntary Movements: None AIMS Upper Arms, Wrists, Hands, Fingers: None AIMS Lower Legs, Knees, Ankles, Toes: None AIMS Overall Abnormal Movement Severity: None AIMS Incapacitation Abnormal Movement: None AIMS Self Awareness of Abnormal Movement: Aware, None noted AIMS Current Teeth, Denture Problems: No AIMS Movements Disappear in Sleep: No . . MENTAL STATUS EXAM: . Appearance: Appropriately dressed and groomed, good eye contact, cooperative, pleasant Behavior/Motor Activity: Normal Gait/Station: Within normal limits BH Speech: Normal Mood: Good Affect: Full Thought processes/Associations: Logical and goal directed Thought Content: Non-psychotic Cognition/Attention/Memory/Concentration: Alert and oriented x 4; grossly intact attention; memory-recent/remote judged adequate by interviewer Insight: Good Judgement: Good language: Within normal limits Fund of Knowledge: Adequate . Assessment: * Assessment: 1. G eneralized anxiety disorder - F41.1 (Primary) 2 . M ajor depressive disorder, recurrent episode, moderate - F33.1 3 . U nspecified Trauma- & Stressor-Related Disorder - F43.9 Plan: * Treatment: 2. M ajor depressive disorder, recurrent episode, moderate Refill Venlafaxine HCl Tablet, 50 mg, TAKE 1 TABLET BY MOUTH DAILY, 30 days, 30 Tablet, Refills 2;?Continue hydrOXYzine Pamoate Capsule, 50 MG, TAKE 1-2 CAPSULES 3 times a day by MOUTH ONCE A DAY as NEEDED FOR SLEEP, Orally, as directed; R efill Venlafaxine HCl Tablet, 100 MG, 1 tablet with food, Orally, Once a day, 30 days, 30 Tablet, Refills 2. Notes: Educated on antidepressant. Made aware of Black Box Warning that it can increase suicidal thoughts, especially in minors. If this happens go to the ER. Make the office aware or go to the ER, if you experience seizures or an increase in activity and irritability. Made aware to not abruptly stop medication. Medication can cause headache and nausea. . Denies suicidal or homicidal ideation or plan. No morbid thoughts. Interpersonal issues discussed. Support provided Insight oriented/ Behavior modifying/ Supportive therapy Hydroxyzine: Made aware that the med will cause sedation, dry mouth, and urinary retention. Do not take before driving a car until you know how the med will affect you. Do not take the medication if . Do not take with other ROVING MACHINE OPERATOR depressants. Call 911 for difficulty breathing. . . Informed consent obtained: YES, we discussed the diagnosis/diagnoses, the treatment options, treatment(s) recommended vs. no treatment. We discussed risks and benefits of treatment options, treatment recommendations vs. no treatment. . . Pt is to continue current treatment plan Has good tolerability and compliance with medication Call for problems All questions and concerns discussed . * Procedure Codes: 3 078F DIAST BP < 80 MM [id number] SYST BP LT 130 MM [id number] RVW MEDS BY RX/DR IN [facility] * Preventive Medicine: COUNSELING: Rober beckford Primary Pharmacy Discussion Patient agrees to primary pharmacy being set to [facility] Patient Declines: Explain Why Rober beckford explained that location of pharmacy is a barrier No drive thru, closes early, and no weekend hours, wants medications sent to local pharmacy but was given a pamphlet and discussed benefits of using [facility] [place] [facility] * Follow Up: 4 Weeks * Images: * Sign off status: Completed true * Appointment Provider: ROSY MILLAN Date: 10/10/2024 Generated for Laina tolentino/Maximilian/David on: 10/22/2024 08:40 AM EDT History and Physical Notes * HPI (History of Present Illness) Category Sub-Category Detail Notes Category Not es Depression Screening PHQ-2 (2015 Edition) Little interest or pleasure in doing things?: Several days Feeling down, depressed, or hopeless?: S everal days Total Score: 2 Constitutional Pt is being seen today for follow up via in-office visit. Pt is tolerating meds well and taking medications daily. . Pt states that states that she has been worried about her brother. States that she is afraid that he will end up in senior care. Is having to move out of her apartment so renovations could be done. Will increase dsoe of buspar . Pt denies mood fluctuation. Energy and motivation are stable. Depressive symptoms are not persistent. Denies episodes of having sadness, anhedonia, isolating behaviors, or crying spells. Anxiety is not controlled. Concentration intact without distractibility. . Sleeping through the night and feels rested upon waking up. Denies Nightmares. Appetite is good. . Denies Euphoria. Pervasive irritability is controlled today. Meaningful relationships intact. Denies increased goal-oriented behavior or increase in purposeless activity. Attending work/school as scheduled. . Denies suicidal or homicidal ideation or plan. No morbid thoughts. Interpersonal issues discussed. Support provided. Insight oriented/ Behavior modifying/ Supportive therapy . Plan: f/u in 1 mo Examination Category Sub-Category Detail Notes Category Not es General Examination . AIMS EXAM: . AIMS Muscles of Facial Expression: None AIMS Lips and Perioral Area: None AIMS Jaw Area Involuntary Movements: None AIMS Tongue Involuntary Movements: None AIMS Upper Arms, Wrists, Hands, Fingers: None AIMS Lower Legs, Knees, Ankles, Toes: None AIMS Overall Abnormal Movement Severity: None AIMS Incapacitation Abnormal Movement: None AIMS Self Awareness of Abnormal Movement: Aware, None noted AIMS Current Teeth, Denture Problems: No AIMS Movements Disappear in Sleep: No . . MENTAL STATUS EXAM: . Appearance: Appropriately dressed and groomed, good eye contact, cooperative, pleasant Behavior/Motor Activity: Normal Gait/Station: Within normal limits BH Speech: Normal Mood: Good Affect: Full Thought processes/Associations: Logical and goal directed Thought Content: Non-psychotic Cognition/Attention/Memory/Con centration: Alert and oriented x 4; grossly intact attention; memory-recent/remote judged adequate by interviewer Insight: Good Judgement: Good BH language: Within normal limits Fund of Knowledge: Adequate .
--- OUTSIDE RECORDS SUMMARY | 2024-10-11 14:00 | XMS_ITS | Encounter Summary ---
Author Organization [facility] Address [address] [place] [address] Care Team Providers Care Tuber Helper Name Role Phone Yanet Junior EVENT STAFF MEMBER Unavailable [phone] Tate Martinez MD Primary Care Provider [phone] Yanet Junior EVENT STAFF MEMBER Unavailable [phone] Clarice Orellana DO Unavailable [phone] Reason for Referral * Medications - Closed Specialty Diagnoses / Procedures Referred By Contac t Referred To Contact Diagnoses Type 2 diabetes mellitus without complication, with long-term current use of insulin (HCC) Yanet Junior NP [address] [place] [address] Phone: tel: fax: Referral ID Status Reason Start Date Expiration Date Visits Re quested Visits Authorized [id number] Closed 1 1 * Medications - Denied Specialty Diagnoses / Procedures Referred By Contac t Referred To Contact Diagnoses Pulmonary emphysema, unspecified emphysema type (HCC) Yanet Junior NP [address] [place] [address] Phone: tel: fax: Referral ID Status Reason Start Date Expiration Date Visits Re quested Visits Authorized [id number] Denied 1 1 * Consultation (Stat) - Authorized Specialty Diagnoses / Procedures Referred By Rica wallace Referred To Contact Gastroenterology Diagnoses Abdominal pain, unspecified abdominal location Gastroesophageal reflux disease, unspecified whether esophagitis present Hemorrhoids, unspecified hemorrhoid type Procedures [place] OFFICE/OUTPATIENT [facility] 60 MINUTES Yanet Junior NP [address] [place] [address] Phone: tel: fax: Alex Mcdowell MD [facility] [address], [address], [address] [address] Phone: tel: fax: Referral ID Status Reason Start Date Expiration Date Visits Requested Visits Authorized [id number] Authorized Specialty Services Required 10/11/2024 04/09/2025 1 1 Scheduling Instructions No so much stat as AJITH Reason for Visit * Reason Comments Diabetes Encounter Details Date Type Department Care Team (Late st Contact Info) Description 10/11/2024 2:00 PM EDT Office Visit [facility] [address] [place] [address] Yanet Junior NP [address] [place] [id number] Abdominal pain, unspecified abdominal location (Primary Dx); Gastroesophageal reflux disease, unspecified whether esophagitis present; Hemorrhoids, unspecified hemorrhoid type; Atherosclerotic heart disease of [place] coronary artery without angina pectoris ; Coronary atherosclerosis ; Pulmonary emphysema, unspecified emphysema type ([facility]); Vitamin D deficiency; Diabetes mellitus type 2, insulin dependent ([facility]); Mixed hyperlipidemia ; Type 2 diabetes mellitus without complications ([facility]); Gastro-esophageal reflux disease without esophagitis; Type 2 diabetes mellitus without complication, with long-term current use of insulin ([facility]) Social History Tobacco Use Types Packs/Day Years Used Date Smoking Tobacco: Every Day Cigarettes Alcohol Use Standard Drinks/Week Comments Not Currently 0 (1 standard drink = 0.6 oz pure alcohol) caffeine more than 4 cups per day Comments No Sex and Gender Information Value Date Recorded Sex Assigned at Not on file Legal Sex Female 11:40 PM EDT Gender Identity Not on file Sexual Orientation Not on file documented as of this encounter Last Filed Vital Signs Vital Sign Reading Time Taken Comments Blood Pressure 86/60 10/11/2024 2:33 PM EDT Pulse 87 10/11/2024 2:33 PM EDT Temperature 37.2 C (99 F) 10/11/2024 2:33 PM EDT Respiratory Rate 18 10/11/2024 2:33 PM EDT Oxygen Saturation 97% 10/11/2024 2:33 PM EDT Inhaled Oxygen Concentration - - Weight 110 kg (241 lb 12.8 oz) 10/11/2024 2:33 P M EDT Height - - Body Mass Index 40.86 03/14/2024 1:08 PM EST documented in this encounter Patient Instructions * Patient Instructions* Yanet Junior NP - 10/11/2024 2:00 PM EDT Lower the dose of metoprolol: 25mg tablet: 1/2 pill twice a day Phone number for GI in [place], Dr Mcdowell [phone] documented in this encounter Progress Notes * Yanet Junior NP - 10/11/2024 3:53 PM EDTAssociated Problem(s): Hyperlipidemia Statin therapy Check labs yearly and prn dose changes * Yanet Junior NP - 10/11/2024 3:53 PM EDTAssociated Problem(s): Type 2 diabetes mellitus without complications (HCC) Doing well on current meds Check blood sugars daily, notify if <70 or >200. Take medications (pills or insulin) as directed. Monitor for s/s of hypoglycemia (sweaty, dizziness, nausea, vomiting, or shakiness). Watch for increase in thirst, urination, or appetite. Inspect feet frequently monitoring for open wounds , andalso recommend yearly eye exam. Pt should attempt to remain as physically active as chronic conditions allow, as well as trying to follow a diet low in carbohydrates, and simple sugars. Current meds: mounjaro, asa, jardiance, metformin, statin A1c 6.0% 10/03/24, 5.9% 01/02/24 * Yanet Junior NP - 10/11/2024 3:52 PM EDTAssociated Problem(s): GERD (gastroesophageal reflux disease) Recommendations: freq small meals, nothing to eat or drink at least 2 hours prior to bed, limit caffeine, alcohol, as well as spicy foods Meds to limit or avoid if possible: NSAIDS Elevate HOB if possible Currently taking Omeprazole * Yanet Junior NP - 10/11/2024 3:52 PM EDTAssociated Problem(s): Hemorrhoids Pt refuses to have rectal exam, I did explain that I cannot tel without an exam, if hemorrhoid, mass etc I will give one more time of cream and she must go see GI * Yanet Junior NP - 10/11/2024 3:51 PM EDTAssociated Problem(s): Abdominal pain Non complaint with fu with GI Refer to GI * GERHARD [place] - 10/11/2024 2:00 PM EDT Pt would like to discuss frequently dehydration=constipation=recurring hemorrhoid Otc cream is not working Pt has been feeling weakness, foggy, dizzy, lightheaded, fatigue for a week now Pt is having hard stone Bms the last formed bowel movement was about 5 days Pt states last night she was drenched in sweat and nauseous * Yanet Junior, FADUMO - 10/11/2024 2:00 PM EDT Images from the original note were not included. Lyssa Bradford is a 43 y.o. female presents with chief complaint of Diabetes HPI: Here to discuss GI: Calls freq complaining of nausea, as well as hemorrhoid pain with intermittent bleeding. Has been referred to GI several times and cancels appts She is here complaining of the same things again today, I would not refill her meds until she was seen Diabetes She presents for her follow-up diabetic visit. She has type 2 diabetes mellitus. Her disease coursehas been stable. Hypoglycemia symptoms include dizziness and nervousness/anxiousness. Associated symptoms include fatigue. Pertinent negatives for diabetes include no blurred vision, no chest pain, no foot paresthesias, no polydipsia, no polyphagia and no polyuria. There are no hypoglycemic complications. Symptoms are stable. Diabetic complications include heart disease and peripheral neuropathy.Pertinent negatives for diabetic complications include no PVD. Risk factors for coronary artery disease include diabetes mellitus, dyslipidemia, hypertension and obesity. Current diabetic treatment includes oral agent (dual therapy). She is compliant with treatment all of the time. Her overall blood glucose range is 90-110 mg/dl. An MONICA inhibitor/angiotensin II receptor elian is being taken. Eye exam is current. Hypertension This is a chronic problem. The current episode started more than 1 year ago. The problem is unchanged. The problem is controlled. Pertinent negatives include no blurred vision, chest pain, palpitations, peripheral edema or shortness of breath. There are no associated agents to hypertension. Risk factors for coronary artery disease include diabetes mellitus, dyslipidemia, obesity, sedentary lifestyle and smoking/tobacco exposure. Past treatments include beta blockers and angiotensin blockers. The current treatment provides significant improvement. There are no compliance problems. Hypertensiveend-organ damage includes CAD/NV. There is no history of heart failure or PVD. SUBJECTIVE: MEDICATIONS: Current Outpatient Medications Medication Instructions acetaminophen (TYLENOL) 1,000 mg, Every 8 hours PRN albuterol HFA 90 mcg/act inhaler 2 puffs, Inhalation, Every 6 hours PRN ALPRAZolam (XANAX) 1 mg, 2 times daily PRN ARIPiprazole (ABILIFY) 20 mg, Daily Aspirin Low Dose 81 mg, Daily atorvastatin (LIPITOR) 80 mg, Oral, Every evening Blood Glucose Monitoring Suppl (Blood Glucose Monitor System) w/Device kit 1 kit, Does not apply, Daily budesonide-formoterol (Symbicort) 160-4.5 MCG/ACT inhaler 2 puffs, Inhalation, 2 times daily, [place] with water after use to reduce aftertaste and incidence of candidiasis. Do not swallow. busPIRone (BUSPAR) 30 mg, 2 times daily cholecalciferol (NATURAL VITAMIN D-3) 5,000 Units, Oral, Daily clopidogrel (PLAVIX) 75 mg, Oral, Daily Continuous Glucose Travel Nurse (Digital UnionStyle Indu 2 Kendall) device 1 each, Does not apply, Daily Continuous Glucose Sensor (FreeStyle Indu 2 Sensor) [facility] [place] and change EVERY 14 days cyanocobalamin (VITAMIN B-12) 1,000 mcg, Oral, Daily empagliflozin (JARDIANCE) 25 mg, Oral, Daily ezetimibe (ZETIA) 10 mg, Oral, Every evening fluconazole (Diflucan) 150 MG tablet Take 1 pill day #1, repeat again in 3 days, and again in 3 days fluconazole (Diflucan) 150 MG tablet One time dose, repeat in 3 days. Do not take atorvastatin cholesterol pill while taking the fluconazaole, once completed resume taking the atorvastatin gabapentin (NEURONTIN) 800 mg, Oral, 3 times daily glucose blood (FreeStyle Precision Navi Test) test strip Twice a day use. Use as instructed Glucose Blood (ONETOUCH ULTRA TEST ) 1 each, 2 times daily glucose blood (OneTouch Ultra Test) test strip Twice a day. Use as instructed hydrocortisone (Anusol-HC) 2.5 % rectal cream Twice a day as needed to rectal area hydrocortisone (Anusol-HC) 25 MG suppository Insert 1 suppository (25 mg)rectally twice daily as needed for hemorrhoids for up to 5 days hydrOXYzine HCl (ATARAX) 25 mg, 2 times daily PRN ibuprofen 800 mg, Oral, Every 6 hours PRN Insulin Pen Needle (pen needle 05/29 ) 31G x 5 mm misc As needed lamoTRIgine (LaMICtal) 200 MG tablet 1 tablet, Daily Lantus SoloStar 10 Units, Subcutaneous, Nightly losartan (COZAAR) 25 mg, Oral, Every morning metFORMIN XR (GLUCOPHAGE-XR) 1,000 mg, Oral, 2 times daily before meals metoprolol tartrate (LOPRESSOR) 25 mg, Oral, 2 times daily Mounjaro 12.5 mg, Subcutaneous, Every 7 days omeprazole (PRILOSEC) 20 mg, Oral, Daily before breakfast ondansetron ODT (ZOFRAN-ODT) 4 mg, Oral, Every 8 hours PRN Promethegan 25 mg, Every 6 hours PRN traZODone (Desyrel) 50 MG tablet TAKE 1 OR 2 TABLETS AT BEDTIME NEEDED venlafaxine (Effexor) 100 MG tablet TAKE 1 TABLET BY MOUTH EVERY DAY IN THE EVENING WITH FOOD ORALLY ONCE A DAY 30 DAY(S) venlafaxine (EFFEXOR) 50 mg, Daily ALLERGIES: Allergies Allergen Reactions Hydrocodone-Acetaminophen GI intolerance Penicillin G Hives and Nausea And Vomiting Tramadol Hives and Nausea And Vomiting REVIEW OF SYMPTOMS: Review of Systems Constitutional: Positive for fatigue. Eyes: Negative for blurred vision. Respiratory: Negative for shortness of breath. Cardiovascular: Negative for chest pain and palpitations. Gastrointestinal: Positive for constipation and rectal pain. Musculoskeletal: Negative. Skin: Negative. Neurological: Positive for dizziness. Psychiatric/Behavioral: The patient is nervous/anxious. Depression Endocrine: Negative for polydipsia, polyphagia and polyuria. Allergic/Immunologic: Negative. PAST MEDICAL HISTORY Past Medical History: Diagnosis Date Anxiety and depression 05/25/2023 Candidiasis 05/25/2023 Chronic maxillary sinusitis 05/25/2023 COVID-19 12/2020 Cyst of left ovary 05/25/2023 Diabetes mellitus type 2, insulin dependent (HCC) 05/19/2023 Diabetic neuropathy, painful (HCC) 05/25/2023 Discharge from left nipple 05/25/2023 Drug abuse ([facility]) 05/25/2023 Prescription abuse Dyspareunia, female 05/25/2023 Fatty liver 05/25/2023 Generalized anxiety disorder with panic attacks 05/25/2023 GERD (gastroesophageal reflux disease) Hot flashes due to surgical menopause 05/25/2023 Hyperlipidemia 03/17/2023 Hypertension 05/25/2023 Insomnia 05/25/2023 Internal hemorrhoid 05/25/2023 NV (myocardial infarction) (HCC) 05/25/2023 Obstructive sleep apnea, adult 05/25/2023 Paresthesia of hand, bilateral 05/25/2023 PCOS (polycystic ovarian syndrome) Rectal bleeding 05/25/2023 Tobacco use disorder 05/25/2023 Wheezing 03/17/2023 Xanthelasma, eyelid 05/25/2023 Past Surgical History: Procedure Laterality Date SECTION, LOW TRANSVERSE 2003 SECTION, LOW TRANSVERSE 2004 CORONARY STENT PLACEMENT DILATION AND CURETTAGE OF UTERUS 04/23/2018 Hysteroscopy HERNIA REPAIR 2004 HERNIA REPAIR HERNIA REPAIR HERNIA REPAIR HERNIA REPAIR 2011 TOTAL ABDOMINAL HYSTERECTOMY W/ BILATERAL SALPINGOOPHORECTOMY 09/06/2019 Lysis of adhesions, [place] with Dr. Willis family history includes Multiple sclerosis in her mother; possible medication overdose in her mother. OBJECTIVE: Visit Vitals BP 86/60 (BP Location: Left arm, Patient Position: Sitting, BP Cuff Size: Large adult) Pulse 87 Temp 99 ??F (Temporal) Resp 18 Wt 241 lb 12.8 oz SpO2 97% BMI 40.86 kg/m?? OB Status Hysterectomy Smoking Status Every Day BSA 2.24 m?? Physical Exam Vitals and nursing note reviewed. Constitutional: General: She is not in acute distress. Appearance: Normal appearance. HENT: Head: Normocephalic and atraumatic. Right Ear: External ear normal. Left Ear: External ear normal. Nose: Nose normal. Mouth/Throat: Mouth: Mucous membranes are moist. Eyes: Extraocular Movements: Extraocular movements intact. Conjunctiva/sclera: Conjunctivae normal. Neck: Vascular: No carotid bruit. Cardiovascular: Rate and Rhythm: Normal rate and regular rhythm. Pulses: Normal pulses. Heart sounds: Normal heart sounds. No murmur heard. Pulmonary: Effort: Pulmonary effort is normal. Breath sounds: Normal breath sounds. No wheezing or rhonchi. Abdominal: General: Bowel sounds are normal. There is no distension. Palpations: Abdomen is soft. There is no mass. Tenderness: There is no abdominal tenderness. Musculoskeletal: General: Normal range of motion. Cervical back: Normal range of motion and neck supple. Right lower leg: No edema. Left lower leg: No edema. Skin: General: Skin is warm and dry. Capillary Refill: Capillary refill takes 2 to 3 seconds. Findings: No rash. Neurological: General: No focal deficit present. Mental Status: She is alert and oriented to person, place, and time. Psychiatric: Mood and Affect: Mood normal. Behavior: Behavior normal. Thought Content: Thought content normal. Judgment: Judgment normal. ASSESSMENT AND PLAN: Follow up for Next scheduled follow-up. Problem List Items Addressed This Visit Hyperlipidemia Statin therapy Check labs yearly and prn dose changes Relevant Medications ezetimibe (Zetia) 10 MG tablet GERD (gastroesophageal reflux disease) Recommendations: freq small meals, nothing to eat or drink at least 2 hours prior to bed, limit caffeine, alcohol, as well as spicy foods Meds to limit or avoid if possible: NSAIDS Elevate HOB if possible Currently taking Omeprazole Relevant Orders Ambulatory referral to Gastroenterology Type 2 diabetes mellitus without complications (HCC) Doing well on current meds Check blood sugars daily, notify if <70 or >200. Take medications (pills or insulin) as directed. Monitor for s/s of hypoglycemia (sweaty, dizziness, nausea, vomiting, or shakiness). Watch for increase in thirst, urination, or appetite. Inspect feet frequently monitoring for open wounds , andalso recommend yearly eye exam. Pt should attempt to remain as physically active as chronic conditions allow, as well as trying to follow a diet low in carbohydrates, and simple sugars. Current meds: mounjaro, asa, jardiance, metformin, statin A1c 6.0% 10/03/24, 5.9% 01/02/24 Relevant Medications empagliflozin (Jardiance) 25 MG insulin glargine (Lantus SoloStar) 100 UNIT/ML pen losartan (Cozaar) 25 MG tablet Tirzepatide (Mounjaro) 12.5 MG/0.5ML solution auto-injector Chronic obstructive pulmonary disease, unspecified (HCC) Relevant Medications budesonide-formoterol (Symbicort) 160-4.5 MCG/ACT inhaler Abdominal pain - Primary Non complaint with fu with GI Refer to GI Relevant Orders Ambulatory referral to Gastroenterology Vitamin D deficiency Relevant Medications cholecalciferol (Natural Vitamin D-3) 5,000 Units tablet Hemorrhoids Pt refuses to have rectal exam, I did explain that I cannot tel without an exam, if hemorrhoid, mass etc I will give one more time of cream and she must go see GI Relevant Medications hydrocortisone (Anusol-HC) 2.5 % rectal cream Other Relevant Orders Ambulatory referral to Gastroenterology Other Visit Diagnoses Atherosclerotic heart disease of [place] coronary artery without angina pectoris Relevant Medications atorvastatin (Lipitor) 80 MG tablet metoprolol tartrate (Lopressor) 25 MG tablet Coronary atherosclerosis Relevant Medications atorvastatin (Lipitor) 80 MG tablet clopidogrel (Plavix) 75 MG tablet metoprolol tartrate (Lopressor) 25 MG tablet Diabetes mellitus type 2, insulin dependent (HCC) Relevant Medications empagliflozin (Jardiance) 25 MG Gastro-esophageal reflux disease without esophagitis Relevant Medications omeprazole (PriLOSEC) [address] capsule ondansetron ODT (Zofran-ODT) 4 MG disintegrating tablet documented in this encounter Plan of Treatment Upcoming Encounters Date Type Department Care Team (Late st Contact Info) Description 11/16/2024 3:00 PM EDT Office Visit [facility] [address] [place] [address] Yanet Junior NP [address] [place] [place] [address] Scheduled Referrals Name Type Priority Associated Diagnoses Order Schedule Ambulatory referral to Gastroenterology Outpatient Referral STAT Abdominal pain, unspecified abdominal location Gastroesophageal reflux disease, unspecified whether esophagitis present Hemorrhoids, unspecified hemorrhoid type Expected: 10/11/2024 (Approximate), Expires: 04/13/2025 documented as of this encounter Visit Diagnoses Diagnosis Abdominal pain, unspecified abdominal location- Primary Gastroesophageal reflux disease, unspecified whether esophagitis present Hemorrhoids, unspecified hemorrhoid type Atherosclerotic heart disease of cant[place] coronary artery without angina pectoris Pulmonary emphysema, unspecified emphysema type (HCC) Vitamin D deficiency Diabetes mellitus type 2, insulin dependent (HCC) Mixed hyperlipidemia Mixed hyperlipidemia Type 2 diabetes mellitus without complications (HCC) Gastro-esophageal reflux disease without esophagitis Type 2 diabetes mellitus without complication, with long-term current use of insulin (HCC) documented in this encounter Care Teams Tuber Helper Relationship Specialty Start Date End Date Tate Martinez MD [address] [place] [id number] PCP - General Family Medicine 01/14/24 Yanet Junior NP [address] [place] [id number] PCP - [facility] 03/16/24 Yanet Junior NP [address] [place] [address] Nurse Practitioner Family Medicine 12/10/23 Clarice Orellana DO [address] [place] [address] Referring Physician Neurology 05/16/24 documented as of this encounter
[2024-10-22 08:36] VITALS: BP 106/67; PULSE 89; TEMP 36.7; O2SAT 95; BMI 40.7
--- OUTSIDE RECORDS SUMMARY | 2024-10-22 08:40 | XMS_ITS | Encounter Summary ---
Author Organization [facility] Address [facility] [id number] [address] [place] [address] Care Team Providers Care Emergency Medical Service Manager Name Role Phone Unavailable Primary Care Provider Unavailabl e Reason for Visit * Reason Onset Date Comments Med Refill 09/12/2019 Encounter Details Date Type Department Care Team (Late st Contact Info) Description 09/12/2019 Refill [facility] [address] [place] [address] Nanette Mares RMA Anxiety (Primary Dx) Social History Tobacco Use Types Packs/Day Years Used Date Smoking Tobacco: Former Cigarettes Q uit: 08/20/2018 Smokeless Tobacco: Never Alcohol Use Standard Drinks/Week Comments Not Currently 0 (1 standard drink = 0.6 oz pur e alcohol) Childcare Answer Date Recorded Childcare Unknown 08/25/2018 Employment Answer Date Recorded Employment Unknown 08/25/2018 Comments No Sex and Gender Information Value Date Recorded Sex Assigned at Not on file Legal Sex Female 11:57 AM EDT Gender Identity Not on file Sexual Orientation Not on file COVID-19 Exposure Response Date Recorded In the last month, have you been in contact with someone who was confirmed or suspected to have Coronavirus / COVID-19? No / Unsure 09/06/2019 10:51 PM EDT documented as of this encounter Plan of Treatment Not on file documented as of this encounter Visit Diagnoses Diagnosis Anxiety- Primary Anxiety state, unspecified documented in this encounter
--- OUTSIDE RECORDS SUMMARY | 2024-10-22 08:40 | XMS_ITS | Encounter Summary ---
Author Organization [facility] Address [address] [place] [address] Care Team Providers Care Filter Changer Name Role Phone Tate Martinez MD Primary Care Provider [phone] Yanet Junior GLOBAL TECHNICAL WRITER Unavailable [phone] Unallocated, Noms Provider Primary Care Provi jackson Tate Martinez MD Primary Care Provider [phone] Yanet Junior GLOBAL TECHNICAL WRITER Unavailable [phone] Keaton Orellanale DO Unavailable [phone] Reason for Visit * Reason Onset Date Comments Med Refill 10/22/2023 Encounter Details Date Type Department Care Team (Late st Contact Info) Description 10/22/2023 Refill [facility] [address] [place] [address] Yanet Junior GLOBAL TECHNICAL WRITER [address] [place] [address] Type 2 diabetes mellitus with diabetic polyneuropathy, with long-term current use of insulin ([facility]) Social History Tobacco Use Types Packs/Day Years [...] on file documented as of this encounter Plan of Treatment Upcoming Encounters Date Type Department Care Team (Late st Contact Info) Description 11/16/2024 3:00 PM EDT Office Visit [facility] [address] [place] [phone] Yanet Junior NP [address] [place] [address] documented as of this encounter Visit Diagnoses Diagnosis Type 2 diabetes mellitus with diabetic polyneuropathy, with long-term current use of insulin (HCC) documented in this encounter Care Teams Filter Changer Relationship Specialty Start Date End Date Tate Martinez MD [address] [place] [address] PCP - General Family Medicine 04/03/23 12/29/23 Unallocated, Laura Simmons MD [address] [place] [address] PCP - General Family Medicine 12/30/23 01/13/24 Tate Martinez MD [address] [place] [address] PCP - General Family Medicine 01/14/24 Yanet Junior NP [address] [place] [address] PCP - [facility] 03/16/24 Yanet Jnuior NP [address] [place] [address] Nurse Practitioner Family Medicine 12/10/23 Clarice Orellana DO [address] [place] [address] Referring Physician Neurology 05/16/24 documented as of this encounter
--- OUTSIDE RECORDS SUMMARY | 2024-10-22 08:40 | XMS_ITS | Encounter Summary ---
Author Organization [facility] Address [address] [place] [address] Care Team Providers Care Cheesemaking Laborer Name Role Phone Tate Martinez MD Primary Care Provider [phone] Yanet Junior NP Unavailable [phone] Unallocated, Laura Provider Primary Care Provi jackson Tate Martinez MD Primary Care Provider [phone] Yanet Junior NP Unavailable [phone] Clarice Orellana DO Unavailable [phone] Encounter Details Date Type Department Care Team (Late st Contact Info) Description 10/12/2023 Abstract [facility]A TORRES [address] [place] [address] Teo Villa DO [address] [facility] [address] Jessica Verdugo, [facility] Social History Tobacco Use Types Packs/Day Years [...] 11/16/2024 3:00 PM EDT Office Visit [facility] [address] [place] [phone] Yanet Junior NP [address] [place] [address] documented as of this encounter Visit Diagnoses Not on filedocumented in this encounter Care Teams Cheesemaking Laborer Relationship Specialty Start Date End Date Tate Martinez MD [address] [place] [address] PCP - General Family Medicine 04/03/23 12/29/23 Unallocated, Laura Simmons MD [address] [place] [address] PCP - General Family Medicine 12/30/23 01/13/24 Tate Martinez MD [address] [place] [address] PCP - General Family Medicine 01/14/24 Yanet Junior NP [address] [place] [address] PCP - [facility] 03/16/24 Yanet Junior NP [address] [place] [address] Nurse Practitioner Family Medicine 12/10/23 Clarice Orellana DO [address] [place] [address] Referring Physician Neurology 05/16/24 documented as of this encounter
--- OUTSIDE RECORDS SUMMARY | 2024-10-22 08:40 | XMS_ITS | Encounter Summary ---
Author Organization [facility] Address [address] [place] [address] Care Team Providers Care Instrument/Control Technician Name Role Phone Yanet Junior NP Unavailable [phone] Tate Martinez MD Primary Care Provider Yanet Junior NP Unavailable [phone] Clarice Orellana DO Unavailable [phone] Encounter Details Date Type Department Care Team (Late st Contact Info) Description 01/14/2024 Abstract [facility] [address] [place] [address] Tate Martinez MD [address] [place] [address] Social History Tobacco Use Types Packs/Day Years [...] Encounters Date Type Department Care Team (Late Contact Info) Description 11/16/2024 3:00 PM EDT Office Visit [facility] [address] [place] [address] Yanet Junior NP [address] [place] [address] documented as of this encounter Visit Diagnoses Not on filedocumented in this encounter Care Teams Instrument/Control Technician Relationship Specialty Start Date End Date Tate Martinez MD [address] [place] [address] PCP - General Family Medicine 01/14/24 Yanet Junior NP [address] [place] [address] PCP - [facility] 03/16/24 Yanet Junior NP [address] [place] [address] Nurse Practitioner Family Medicine 12/10/23 Clarice Orellana DO [address] [place] [address] Referring Physician Neurology 05/16/24 documented as of this encounter
--- OUTSIDE RECORDS SUMMARY | 2024-10-22 08:40 | XMS_ITS | Encounter Summary ---
Author Organization [facility] Address [address] [place] [address] Care Team Providers Care Commissioned Security Officer Name Role Phone Tate Martinez MD Primary Care Provider [phone] Yanet Junior CIDER MAKER Unavailable [phone] Unallocated, Noms Provider Primary Care Provi jackson Tate Martinez MD Primary Care Provider [phone] Yanet Junior CIDER MAKER Unavailable [phone] Clarice Orellana DO Unavailable [phone] Reason for Visit * Reason Comments Med Refill Encounter Details Date Type Department Care Team (Late st Contact Info) Description 2023 Refill [facility] [address] [place] [address] Yanet Junior CIDER MAKER [address] [place] [address] Diabetes mellitus type 2, insulin dependent (HCC) Social History Tobacco Use Types Packs/Day Years [...] 11/16/2024 3:00 PM EDT Office Visit [facility] [address] [place] [address] Yanet Junior, FADUMO [address] [place] [address] documented as of this encounter Visit Diagnoses Diagnosis Diabetes mellitus type 2, insulin dependent (HCC) documented in this encounter Care Teams Commissioned Security Officer Relationship Specialty Start Date End Date Tate Martinez MD [address] [place] [address] PCP - General Family Medicine 04/03/23 12/29/23 Unallocated, Laura Simmons MD [facility] [place] [address] PCP - General Family Medicine 12/30/23 01/13/24 Tate Martinez MD [address] [place] [address] PCP - General Family Medicine 01/14/24 Yanet Junior NP [address] [place] [address] PCP - [facility] 03/16/24 Yanet Junior NP [address] [place] [address] Nurse Practitioner Family Medicine 12/10/23 Clarice Orellana DO [address] [place] [address] Referring Physician Neurology 05/16/24 documented as of this encounter
--- OUTSIDE RECORDS SUMMARY | 2024-10-22 08:40 | XMS_ITS | Patient Health Record ---
Author Organization [employer] es Address [address] [place] [address] Care Team Providers Care Surg Nurse Name Role Phone Tamera Baker Primary Care Provider [phone] Allergies No Known Allergies Reason For Referral No Information Medications Medication SIG (Take, Route, Frequency, Duration) Notes Start Date End Date Status Ozempic (0.25 or 0.5 MG/DOSE) 2 MG/1.5ML as directed Subcutaneous once a week Not-Taking Insulin Aspart FlexPen Not-Taking Natural Vitamin D-3 125 MCG (5000 UT) TAKE 1 TABLET BY MOUTH EVERY DAY Oral; Duration: 30 Days Active Vitamin B-12 1000 MCG TAKE 1 TABLET BY M OUTH EVERY DAY Oral; Duration: 30 Days Active Venlafaxine HCl 50 mg TAKE 1 TABLET BY M OUTH DAILY; Duration: 30 days Active Venlafaxine HCl 100 MG 1 tablet with palmira d Orally Once a day; Duration: 30 days Active traZODone HCl 50 MG 1 or 2 tablet at bed time as needed Orally Once a day; Duration: 30 days Active ARIPiprazole 5 MG TAKE 1 TABLET BY BANDAR TH EVERY DAY FOR 30 DAYS; Duration: 30 Not-Taking hydrOXYzine Pamoate 50 MG TAKE 1-2 CAPSULES 3 times a day by MOUTH ONCE A DAY as NEEDED FOR SLEEP Orally as directed Active ALPRAZolam 1 MG 1 tablet Orally thre e times a day; Duration: 30 days 10/10/2024 Active Aspirin 81 MG 1 tablet Orally Once a day Active metFORMIN HCl 500 MG 2 tablets Orally BID Active Gabapentin 400 MG 1 capsule Orally thr ee times a day (tid) as needed (prn) Active Mounjaro 2.5 MG/0.5ML as directed Subcut aneous once a week Active Jardiance 25 MG 1 tablet Orally Once a day Active busPIRone HCl 30 MG 1 tablet Orally Twic e a day; Duration: 30 days Active Plavix 75 MG 1 tablet Orally Once a day Active lamoTRIgine 200 mg TAKE 1 TABLET BY BANDAR TH DAILY; Duration: 30 days Active Atorvastatin Calcium 80 MG 1 tablet Orally Once a day Active ARIPiprazole 20 mg TAKE 1 TABLET BY BANDAR TH DAILY; Duration: 30 days Active Losartan Potassium 25 MG 1 tablet Orally Once a day Active Social History Tobacco Use: Social History [...] you interested in quitting? 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 confirmed Vital Signs Heart Rate 84 /min 10/10/2024 Temperature 97.8 degrees Fahrenheit 10/10/2024 Oximetry 94 % 10/10/2024 Blood pressure diastolic 72 mm Hg 10/10/2024 Height 64 in 10/10/2024 Blood pressure systolic 105 mm Hg 10/10/2024 Weight 242.4 lbs 10/10/2024 BMI 41.6 kg/m2 10/10/2024 Encounters Encounter Location Date Provider Diagnosis [facility] [address] [place] [address] 11/11/2023 Tamera Slingwine [place] [address] [place] [address] 01/15/2024 Tamera Slingwine Major depressive disorder, recurrent episode, moderate F33.1 and Generalized anxiety disorder F41.1 [facility] [address] [place] [address] 08/11/2024 Tamera Slingwine [place] [address] [place] [address] 09/22/2024 Tamera Slingwine [address] [address] 01/22/2024 Tamera Slingwine Generalized anxiety disorder F41.1 ; Major depressive disorder, recurrent episode, moderate F33.1 and Unspecified Trauma- & Stressor-Related Disorder F43.[address] [address] 10/10/2024 Tamera Slingwine Generalized anxiety disorder F41.1 ; Major depressive disorder, recurrent episode, moderate F33.1 and Unspecified Trauma- & Stressor-Related Disorder F43.[address] [address] 11/11/2023 Tamera Slingwine Major depressive disorder, recurrent episode, moderate F33.1 ; Unspecified Trauma- & Stressor-Related Disorder F43.9 and Generalized anxiety disorder F41.[address] [address] 02/26/2024 Tamera Slingwine Generalized anxiety disorder F41.1 ; Major depressive disorder, recurrent episode, moderate F33.1 and Unspecified Trauma- & Stressor-Related Disorder F43.9 [address] [place] [address] 04/12/2024 Tamera Slingwine Major depressive disorder, recurrent episode, moderate F33.1 and Generalized anxiety disorder F41.[address] [address] 06/09/2024 Tamera Slingwine Generalized anxiety disorder F41.1 ; Major depressive disorder, recurrent episode, moderate F33.1 and Unspecified Trauma- & Stressor-Related Disorder F43.[address] [address] 08/18/2024 Tamera Slingwine Generalized anxiety disorder F41.1 ; Major depressive disorder, recurrent episode, moderate F33.1 and Unspecified Trauma- & Stressor-Related Disorder F43.9 Assessments Encounter Date Diagnosis (ICD Code) Assessment Notes Treatment Notes Treatment Clinical Notes Section Notes 08/18/2024 Generalized anxiety disorder (ICD-10 - F41.1) Recommended treatment is: _ FDA approved medication for this age group include Selective Serotonin Reuptake Inhibitors (SSRI) and Selective Norepinephrine Reuptake Inhibitors (SNRI). . Selective serotonin reuptake inhibitors? can cause nausea, headache, upset stomach, diarrhea, constipation, anxiety, irritability, and sexual dysfunction. . Please monitor for worsening of symptoms, especially suicidal ideations or morbid thoughts, and call office and or go to the emergency department immediately. Pt does not endorse exhibiting symptoms aligning with merrick. . The patient verbalizes understanding with all questions answered thoroughly and is in agreement with treatment plan. . Continue current treatment plan Patient/Guardian will call sooner if symptoms worsen. Patient understands to go to ER if needed if symptoms become severe. Crisis Intervention plan was discussed and agreed upon. Patient/Guardian will call 911 in case of emergency. Emergency contact information was provided to the patient/guardian. Buspar is a medication used for anxiety. The medication can cause dizziness, sedation, and restless. Please contact the office if you experience these symptoms. The medication typically takes 2-4 weeks to achieve efficacy. Made aware to contact office if symptoms worsen. Antwonictal: Patient educated on dosing schedule of medication. Made aware to make prescriber aware of any unexplainable rash or flu-like symptoms. If outside of office hours patient should report to the ER. Made aware to contact the office with any questions or concerns. Provided crisis hotline number. Patient states has good support system. Will call office or report to the ER with suicidal ideations. Patient educated on antipsychotic dosing schedule and [...] patient crisis plan. Provided crisis hotline number. [facility] has good support system. Made aware to contact office if has an increase in suicidal thoughts. If outside of office hours, patient to go to the ER. Patient will call the office with any questions or concerns. . Discussed seriousness of taking benzodiazepine medication [...] any concerns about your medications. . 10/10/2024 Generalized anxiety disorder (ICD-10 - F41.1) [...] patient crisis plan. Provided crisis hotline number. [facility] has good support system. Made aware to [...] for any concerns about your medications. . 06/09/2024 Generalized anxiety disorder (ICD-10 - F41.1) Recommended treatment is: _ FDA approved medication for this age group include Selective Serotonin Reuptake Inhibitors (SSRI) and Selective Norepinephrine Reuptake Inhibitors (SNRI). . Selective serotonin reuptake inhibitors? can cause nausea, headache, upset stomach, diarrhea, constipation, anxiety, irritability, and sexual dysfunction. Buspar is a medication used for anxiety. The medication can cause dizziness, sedation, and restless. Please contact the office if you experience these symptoms. The medication typically takes 2-4 weeks to achieve efficacy. Made aware to contact office if symptoms worsen. Lamictal: Patient educated on dosing schedule of [...] report to the ER with suicidal ideations. . Please monitor for worsening of symptoms, especially suicidal ideations or morbid thoughts, and call office and or go to the emergency department immediately. Pt does not endorse exhibiting symptoms aligning with merrick. . The patient verbalizes understanding with all questions answered thoroughly and is in agreement with treatment plan. . Continue current treatment plan Patient/Guardian will call sooner if symptoms worsen. Patient understands to go to ER if needed if symptoms become severe. Crisis Intervention plan was discussed and agreed upon. Patient/Guardian will call 911 in case of emergency. Emergency contact information was provided to the patient/guardian. . Discussed seriousness of taking benzodiazepine medication [...] for any concerns about your medications. . 04/12/2024 Major depressive disorder, recurrent episode, moderate (ICD-10 - F33.1) . Informed consent obtained: YES, we discussed the diagnosis/diagnoses , the treatment options, treatment(s) recommended vs. no treatment. We discussed risks and benefits of treatment options, treatment recommendations vs. no treatment. . .Based on DSM V, this patient meets the criteria for the diagnosis of: _ .major depressive disorder Recommended treatment is: _ SSRI or SNRI . The patient verbalizes understanding with all questions answered thoroughly and is in agreement with treatment plan. . . Pharmacological management: . Alternative medication plans were discussed with the patient/guardian. All relevant side effects and potential adverse effects were discussed with the patient/guardian. Standard cautions and potential benefits were discussed. Patient/Guardian consented to the start/continuation of the treatment. . . Currently at low risk for self harm. Denies ongoing feelings of hopelessness. Denies ongoing suicidal ideation, intent or plan in session. . . FDA approved medication for this age group include Selective Serotonin Reuptake Inhibitors (SSRI) and Selective Norepinephrine Reuptake Inhibitors (SNRI). Selective serotonin reuptake inhibitors? can cause nausea, headache, upset stomach, diarrhea, constipation, anxiety, irritability, and sexual dysfunction. Please monitor for worsening of symptoms, especially suicidal ideations or morbid thoughts, and call office and or go to the emergency department immediately . Hydroxyzine: Made aware that the med will cause sedation, dry mouth, and urinary retention. Do not take before driving a car until you know how the med will affect you. Do not take the medication if . Do not take with other F[employer] depressants. Call 911 for difficulty breathing. 02/26/2024 Generalized anxiety disorder (ICD-10 - F41.1) 01/22/2024 Generalized anxiety disorder (ICD-10 - F41.1) 01/15/2024 Major depressive disorder, recurrent episode, moderate (ICD-10 - F33.1) 11/11/2023 Major depressive disorder, recurrent episode, moderate (ICD-10 - F33.1) 11/11/2023 Unspecified Trauma- & Stressor-Relate d Disorder (ICD-10 - F43.9) 01/15/2024 Generalized anxiety disorder (ICD-10 - F41.1) 06/09/2024 Major depressive disorder, recurrent episode, moderate (ICD-10 - F33.1) . Informed consent obtained: YES, we discussed the diagnosis/diagnoses , the treatment options, treatment(s) recommended vs. no treatment. We discussed risks and benefits of treatment options, treatment recommendations vs. no treatment. . .Based on DSM V, this patient meets the criteria for the diagnosis of: _ .major depressive disorder Recommended treatment is: _ SSRI or SNRI . The patient verbalizes understanding with all questions answered thoroughly and is in agreement with treatment plan. . . Pharmacological management: . Alternative medication plans were discussed with the patient/guardian. All relevant side effects and potential adverse effects were discussed with the patient/guardian. Standard cautions and potential benefits were discussed. Patient/Guardian consented to the start/continuation of the treatment. . . Currently at low risk for self harm. Denies ongoing feelings of hopelessness. Denies ongoing suicidal ideation, intent or plan in session. . . FDA approved medication for this age group include Selective Serotonin Reuptake Inhibitors (SSRI) and Selective Norepinephrine Reuptake Inhibitors (SNRI). Selective serotonin reuptake inhibitors? can cause nausea, headache, upset stomach, diarrhea, constipation, anxiety, irritability, and sexual dysfunction. Please monitor for worsening of symptoms, especially suicidal ideations or morbid thoughts, and call office and or go to the emergency department immediately . Informed consent obtained: YES, we discussed the diagnosis/diagnoses , the treatment options, treatment(s) recommended vs. no treatment. We discussed risks and benefits of treatment options, treatment recommendations vs. no treatment. . . . Pt is to continue current treatment plan Has good tolerability and compliance with medication Call for problems All questions and concerns discussed . 01/22/2024 Major depressive disorder, recurrent episode, moderate (ICD-10 - F33.1) 04/12/2024 Generalized anxiety disorder (ICD-10 - F41.1) Recommended treatment is: _ Buspar is a medication used for anxiety. The medication can cause dizziness, sedation, and restless. Please contact the office if you experience these symptoms. The medication typically takes 2-4 weeks to achieve efficacy. Made aware to contact office if symptoms worsen. Buspar is a medication used for anxiety. The medication can cause dizziness, sedation, and restless. Please contact the office if you experience these symptoms. The medication typically takes 2-4 weeks to achieve efficacy. Made aware to contact office if symptoms worsen. Please monitor for worsening of symptoms, especially suicidal ideations or morbid thoughts, and call office and or go to the emergency department immediately. Pt does not endorse exhibiting symptoms aligning with merrick. . The patient verbalizes understanding with all questions answered thoroughly and is in agreement with treatment plan. . Continue current treatment plan Patient/Guardian will call sooner if symptoms worsen. Patient understands to go to ER if needed if symptoms become severe. Crisis Intervention plan was discussed and agreed upon. Patient/Guardian will call 911 in case of emergency. Emergency contact information was provided to the patient/guardian. Patient educated on antipsychotic dosing schedule and [...] patient crisis plan. Provided crisis hotline number. [facility] has good support system. Made aware to contact office if has an increase in suicidal thoughts. If outside of office hours, patient to go to the ER. . Discussed seriousness of taking benzodiazepine medication [...] for any concerns about your medications. . Patient will call the office with any questions or concerns. 02/26/2024 Major depressive disorder, recurrent episode, moderate (ICD-10 - F33.1) 10/10/2024 Major depressive disorder, recurrent episode, moderate [...] if . Do not take with other FUEL [employer] depressants. Call 911 for difficulty breathing. . . Informed consent obtained: YES, we discussed the diagnosis/diagnoses , the treatment options, treatment(s) recommended vs. no treatment. We discussed risks and benefits of treatment options, treatment recommendations vs. no treatment. . . Pt is to continue current treatment plan Has good tolerability and compliance with medication Call for problems All questions and concerns discussed . 08/18/2024 Major depressive disorder, recurrent episode, moderate (ICD-10 - F33.1) . Informed consent obtained: YES, we discussed the diagnosis/diagnoses , the treatment options, treatment(s) recommended vs. no treatment. We discussed risks and benefits of treatment options, treatment recommendations vs. no treatment. . .Based on DSM V, this patient meets the criteria for the diagnosis of: _ .major depressive disorder Recommended treatment is: _ SSRI or SNRI . The patient verbalizes understanding with all questions answered thoroughly and is in agreement with treatment plan. . . Pharmacological management: . Alternative medication plans were discussed with the patient/guardian. All relevant side effects and potential adverse effects were discussed with the patient/guardian. Standard cautions and potential benefits were discussed. Patient/Guardian consented to the start/continuation of the treatment. . . Currently at low risk for self harm. Denies ongoing feelings of hopelessness. Denies ongoing suicidal ideation, intent or plan in session. . . FDA approved medication for this age group include Selective Serotonin Reuptake Inhibitors (SSRI) and Selective Norepinephrine Reuptake Inhibitors (SNRI). Selective serotonin reuptake inhibitors? can cause nausea, headache, upset stomach, diarrhea, constipation, anxiety, irritability, and sexual dysfunction. Please monitor for worsening of symptoms, especially suicidal ideations or morbid thoughts, and call office and or go to the emergency department immediately . Hydroxyzine: Made aware that the med will cause sedation, dry mouth, and urinary retention. Do not take before driving a car until you know how the med will affect you. Do not take the medication if . Do not take with other FUEL [employer] depressants. Call 911 for difficulty breathing. . Informed consent obtained: YES, we discussed the diagnosis/diagnoses , the treatment options, treatment(s) recommended vs. no treatment. We discussed risks and benefits of treatment options, treatment recommendations vs. no treatment. . . Pt is to continue current treatment plan Has good tolerability and compliance with medication Call for problems All questions and concerns discussed . 08/18/2024 Unspecified Trauma- & Stressor-Relate d Disorder (ICD-10 - F43.9) 10/10/2024 Unspecified Trauma- & Stressor-Relate d Disorder (ICD-10 - F43.9) 06/09/2024 Unspecified Trauma- & Stressor-Relate d Disorder (ICD-10 - F43.9) 02/26/2024 Unspecified Trauma- & Stressor-Relate d Disorder (ICD-10 - F43.9) 01/22/2024 Unspecified Trauma- & Stressor-Relate d Disorder (ICD-10 - F43.9) 11/11/2023 Generalized anxiety disorder (ICD-10 - F41.1) 11/11/2023 Other follow up in 6 weeks . Discussed seriousness of taking benzodiazepine medication [...] for any concerns about your medications. . Educated on new antidepressant. Made aware of Black Box Warning [...] Insight oriented/ Behavior modifying/ Supportive therapy . Patient educated on new antipsychotic dosing schedule and side effects. Made [...] the office with any questions or concerns. Buspar is a medication used for anxiety. The medication can cause dizziness, sedation, and restless. Please contact the office if you experience these symptoms. The medication typically takes 2-4 weeks to achieve efficacy. Made aware to contact office if symptoms worsen. Lamictal: Patient educated on dosing schedule of [...] report to the ER with suicidal ideations. Buspar is a medication used for anxiety. The medication can cause dizziness, sedation, and restless. Please contact the office if you experience these symptoms. The medication typically takes 2-4 weeks to achieve efficacy. Made aware to contact office if symptoms worsen. Hydroxyzine: Made aware that the med will cause sedation, dry mouth, and urinary retention. Do not take before driving a car until you know how the med will affect you. Do not take the medication if . Do not take with other FUEL [employer] depressants. Call 911 for difficulty breathing. Patient educated about the importance of adequate sleep to your mental health. The bedroom should be kept dark to promote restful sleep. The patient should not use their phone or watch TV while in bed, these behaviors can be stimulating and keep the patient awake. . Informed consent obtained: YES, we discussed the diagnosis/diagnoses , the treatment options, treatment(s) recommended vs. no treatment. We discussed risks and benefits of treatment options, treatment recommendations vs. no treatment. . 01/22/2024 Other follow up in 1 month Patient educated on new antipsychotic dosing schedule and side effects. Made [...] the office with any questions or concerns. Educated on new antidepressant. Made aware of Black Box Warning [...] Insight oriented/ Behavior modifying/ Supportive therapy . Lamictal: Patient educated on dosing schedule of [...] report to the ER with suicidal ideations. Buspar is a medication used for anxiety. The medication can cause dizziness, sedation, and restless. Please contact the office if you experience these symptoms. The medication typically takes 2-4 weeks to achieve efficacy. Made aware to contact office if symptoms worsen. Hydroxyzine: Made aware that the med will cause sedation, dry mouth, and urinary retention. Do not take before driving a car until you know how the med will affect you. Do not take the medication if . Do not take with other F[employer]EL [employer] depressants. Call 911 for difficulty breathing. Patient educated about the importance of adequate sleep to your mental health. The bedroom should be kept dark to promote restful sleep. The patient should not use their phone or watch TV while in bed, these behaviors can be stimulating and keep the patient awake. . Informed consent obtained: YES, we discussed the diagnosis/diagnoses , the treatment options, treatment(s) recommended vs. no treatment. We discussed risks and benefits of treatment options, treatment recommendations vs. no treatment. . 02/26/2024 Other follow up in 1 month Educated on new antidepressant. Made aware of Black Box Warning [...] Insight oriented/ Behavior modifying/ Supportive therapy . Lamictal: Patient educated on dosing schedule of [...] report to the ER with suicidal ideations. Patient educated on new antipsychotic dosing schedule and side effects. Made [...] the office with any questions or concerns. Buspar is a medication used for anxiety. The medication can cause dizziness, sedation, and restless. Please contact the office if you experience these symptoms. The medication typically takes 2-4 weeks to achieve efficacy. Made aware to contact office if symptoms worsen. Hydroxyzine: Made aware that the med will cause sedation, dry mouth, and urinary retention. Do not take before driving a car until you know how the med will affect you. Do not take the medication if . Do not take with other F[employer]EL [employer] depressants. Call 911 for difficulty breathing. . Discussed seriousness of taking benzodiazepine medication [...] for any concerns about your medications. . Patient educated about the importance of adequate sleep to your mental health. The bedroom should be kept dark to promote restful sleep. The patient should not use their phone or watch TV while in bed, these behaviors can be stimulating and keep the patient awake. . Informed consent obtained: YES, we discussed the diagnosis/diagnoses , the treatment options, treatment(s) recommended vs. no treatment. We discussed risks and benefits of treatment options, treatment recommendations vs. no treatment. . Plan Of Treatment Next Appt Details Provider Name:Tamera leavitt, 11/07/2024 01:45:00 PM, [address] [place], [address], Provider Name:Tamera Godwin tree, 11/17/2024 10:00:00 AM, [address] [place], [address], Insurance Providers Payer Name Payer Address Payer Phone Subscriber Number Group Number Insured Name Patient Relationship to Insured Coverage Start Date Coverage End Date [employer] [place] [employer] [address] [place] [address] [id number] TISH VARGAS Self - patient is the insured 3 [facility] [address] [place] [address] [id number] TISH VARGAS Self - patient is the insured 3 [email or web address] [address] [place] [address] [id number] TISH VARGAS Self - patient is the insured 2 3 [id number] [employer] termed 22 PO [address] [place] [address] [id number] TISH VARGAS Self - patient is the insured 2 3 [employer] MEDICAID [employer] after [employer]- termed 22 [address] [place] [address] [phone] [id number] TISH VARGAS Self - patient is the insured 2 3 [employer] [place] Medicaid [address] [place] [address] [id number] TISH VARGAS Self - patient is the insured 3 [facility] [address] [place] [address] [id number] TISH VARGAS Self - patient is the insured 3 Medical (General) History Medical History History ICD Code diabetes mallitus hypertension Other Specified [id number] Rela sandro Disorder F43.8 recent bladder infection Surgical History Surgery Date(Month/Year) x2 Hernia repair x7 Stents x2 hysterectomy abcess biopsy Hospitalization History Reason Date(Month/Year) [facility] for kidney infection
--- OUTSIDE RECORDS SUMMARY | 2024-10-22 08:40 | XMS_ITS | Encounter Summary ---
Author Organization [facility] Address [address] [place] [address] Care Team Providers Care Electrician Master Name Role Phone Tate Martinez MD Primary Care Provider [phone] Yanet Junior NP Unavailable [phone] Unallocated, Noms Provider Primary Care Provi jackson Tate Martinez MD Primary Care Provider [phone] Yanet Junior ADMINISTRATIVE PERSONAL ASSISTANT Unavailable [phone] Reyna Clarice DO Unavailable [phone] Reason for Visit * Reason Onset Date Comments Med Refill 11/26/2023 Encounter Details Date Type Department Care Team (Late st Contact Info) Description 11/26/2023 [facility] [address] [place] [address] Tate Martinez MD [address] [place] [address] Social History Tobacco Use Types Packs/Day Years [...] EDT Office Visit [facility] [address] [place] [address] Yanet Junior NP [address] [place] [address] documented as of this encounter Visit Diagnoses Not on filedocumented in this encounter Care Teams Electrician Master Relationship Specialty Start Date End Date Tate Martinez MD [address] [place] [address] PCP - General Family Medicine 04/03/23 12/29/23 Unallocated, Brandons MD I[address] [place] [address] PCP - General Family Medicine 12/30/23 01/13/24 Tate Martinez MD [address] [place] [address] PCP - General Family Medicine 01/14/24 Yanet Junior NP [address] [place] [address] PCP - [facility] 03/16/24 Yanet Junior NP [address] [place] [address] Nurse Practitioner Family Medicine 12/10/23 Clarice Orellana DO [address] [place] [address] Referring Physician Neurology 05/16/24 documented as of this encounter
--- OUTSIDE RECORDS SUMMARY | 2024-10-22 08:40 | XMS_ITS | Encounter Summary ---
Author Organization [facility] Address [address] [place] [address] Care Team Providers Care Sebd Teacher Name Role Phone Yanet Junior NP Unavailable [phone] Unallocated, Noms Provider Primary Care Provi jackson Tate Martinez MD Primary Care Provider [phone] Yanet Junior NP Unavailable [phone] Clarice Orellana DO Unavailable [phone] Encounter Details Date Type Department Care Team (Late st Contact Info) Description 01/13/2024 Clinisync Result Encounter [facility] External Department Unsolicited Yanet Junior NP [address] [place] [address] Social History Tobacco Use Types Packs/Day Years [...] 11/16/2024 3:00 PM EDT [facility] [address] [place] [address] Yanet Junior NP [address] [place] [address] documented as of this encounter Procedures Procedure Name Priority Date/Time Associated Diagnosis Comments CT ABDOMEN/PELVIS W/ CONTRAST 01/13/2024 6:57 AM EDT documented in this encounter Results * CT ABDOMEN/PELVIS W/ CONTRAST (01/13/2024 6:57 AM EDT) Anatomical Region Laterality Modality Other 01/13/2024 6:57 AM EDT Narrative 01/13/2024 11:31 AM EDT Exam Date/Time: 01/13/2024 07:28 EDT Reason for Exam: K43.9 Report IMPRESSION: REMOTE VENTRAL WALL HERNIA REPAIR. STABLE HEPATOMEGALY. NONOBSTRUCTING BILATERAL RENAL CALCULI. HYSTERECTOMY. CT OF THE ABDOMEN AND PELVIS WITH INTRAVENOUS CONTRAST MEDIUM. History: K43.9. Right-sided abdominal pain for 6 months, with flexion. Bulging right umbilical region. History of ventral wall hernia repair. Technical Factors: CT imaging of the abdomen and pelvis were obtained and formatted as 5 mm contiguous axial images from the domes of the diaphragm to the symphysis pubis. Sagittal and coronal reconstructions were also obtained. Oral contrast medium: Barium sulfate, 900 mL. Intravenous contrast medium: Isovue-300, 100 mL. Comparison: CT abdomen pelvis, 07/30/2023. Findings: Lower chest: Cardiac size normal. No pericardial effusion. No coronary artery calcification. Lung bases clear. Liver: Enlarged, craniocaudal dimension right hepatic lobe 21.7 cm. Finding unchanged. Normal in shape, and attenuation. Bile Ducts: Normal in caliber. Gallbladder: No stones or wall thickening. Pancreas: Normal without masses, cysts, ductal dilatation or calcification. Spleen: Normal in size without masses or calcifications. No splenules. Kidneys: Normal in size and enhancement. No hydronephrosis or masses. Bilateral renal calculi measuring up to 1.5 mm. Adrenals: Normal. Small bowel: Normal in caliber. Appendix: Normal. Report Colon: Normal in caliber. Peritoneum: No ascites, free air, or fluid collections. Vessels: Aorta normal in course and caliber. Portal vein, splenic vein, superior mesenteric vein are patent. Lymph nodes: Retroperitoneal: No enlarged retroperitoneal lymph nodes. Mesenteric: No enlarged mesenteric lymph nodes. Pelvic: No enlarged pelvic lymph nodes. Ureters: Normal in course and caliber. No calcifications. Bladder: No wall thickening. Partially decompressed. Reproductive organs: Uterus surgically absent. Abdominal Wall: Remote ventral wall hernia repair. No diastasis of rectus musculature. No edema or masses. Bones: No bone lesions. No degenerative changes. No post operative changes. All CT scans at this facility use dose modulation, iterative reconstruction, and/or weight based dosing when appropriate to reduce radiation dose to as low as reasonably achievable. Ordering Provider: YANET JUNIOR FINAL REPORT Dictated: 01/13/2024 11:28 am Donald Sherwood MD Signed (Electronic Signature): 01/13/2024 11:28 am Signed by: Donald Sherwood MD Transcribed by: FLORENTINO Technologist: NAVNEET Technical Comments GFR (mL/min/1/73m2) >60 Contrast: Isovue 300 Contrast amount in ml's: 100 Oral contrast amount in ml's: 900 Procedure Note Radiology, Radiologist, - 01/13/2024 Exam Date/Time: 01/13/2024 07:28 EDT Reason for Exam: K43.9 Report IMPRESSION: REMOTE VENTRAL WALL HERNIA REPAIR. STABLE HEPATOMEGALY. NONOBSTRUCTING BILATERAL RENAL CALCULI. HYSTERECTOMY. CT OF THE ABDOMEN AND PELVIS WITH INTRAVENOUS CONTRAST MEDIUM. History: K43.9. Right-sided abdominal pain for 6 months, with flexion.Bulging right umbilical region. History of ventral wall hernia repair. Technical Factors: CT imaging of the abdomen and pelvis were obtained and formatted as 5 mmcontiguous axial images from the domes of the diaphragm to the symphysis pubis.Sagittal and coronal reconstructions were also obtained. Oral contrast medium: Barium sulfate, 900 mL. Intravenous contrast medium: Isovue-300, 100 mL. Comparison: CT abdomen pelvis, 07/30/2023. Findings: Lower chest: Cardiac size normal. No pericardial effusion. No coronaryartery calcification. Lung bases clear. Liver: Enlarged, craniocaudal dimension right hepatic lobe 21.7 cm.Finding unchanged. Normal in shape, and attenuation. Bile Ducts: Normal in caliber. Gallbladder: No stones or wall thickening. Pancreas: Normal without masses, cysts, ductal dilatation orcalcification. Spleen: Normal in size without masses or calcifications. No splenules. Kidneys: Normal in size and enhancement. No hydronephrosis or masses.Bilateral renal calculi measuring up to 1.5 mm. Adrenals: Normal. Small bowel: Normal in caliber. Appendix: Normal. Report Colon: Normal in caliber. Peritoneum: No ascites, free air, or fluid collections. Vessels: Aorta normal in course and caliber. Portal vein, splenic vein,superior mesenteric vein are patent. Lymph nodes: Retroperitoneal: No enlarged retroperitoneal lymph nodes. Mesenteric: No enlarged mesenteric lymph nodes. Pelvic: No enlarged pelvic lymph nodes. Ureters: Normal in course and caliber. No calcifications. Bladder: No wall thickening. Partially decompressed. Reproductive organs: Uterus surgically absent. Abdominal Wall: Remote ventral wall hernia repair. No diastasis of rectus musculature. No edema or masses. Bones: No bone lesions. No degenerative changes. No post operative changes. All CT scans at this facility use dose modulation, iterativereconstruction, and/or weight based dosing when appropriate to reduce radiation dose to as low asreasonably achievable. Ordering Provider: YANET JUNIOR FINAL REPORT Dictated: 01/13/2024 11:28 am Donald Sherwood MD Signed (Electronic Signature): 01/13/2024 11:28 am Signed by: Donald Sherwood MD Transcribed by: FLORENTINO Technologist: NAVNEET Technical Comments GFR (mL/min/1/73m2) >60 Contrast: Isovue 300 Contrast amount in ml's: 100 Oral contrast amount in ml's: 900 us Yanet Junior [employer] [facility] Final Result documented in this encounter Visit Diagnoses Not on filedocumented in this encounter Care Teams Sebd Teacher Relationship Specialty Start Date End Date Unallocated, Noms MD I[address] [place] [address] PCP - General Family Medicine 12/30/23 01/13/24 Tate Martinez MD [address] [place] [address] PCP - General Family Medicine 01/14/24 Yanet Junior NP [address] [place] [address] PCP - [facility] 03/16/24 Yanet Junior NP [address] [place] [address] Nurse Practitioner Family Medicine 12/10/23 Clarice Orellana DO [address] [place] [address] Referring Physician Neurology 05/16/24 documented as of this encounter
--- OUTSIDE RECORDS SUMMARY | 2024-10-22 08:40 | XMS_ITS | Encounter Summary ---
Author Organization [facility] Address [address] [place] [address] Care Team Providers Care Paramedic Rn Name Role Phone Tate Martinez MD Primary Care Provider [phone] Yanet Junior BRICK WASHER Unavailable [phone] Unallocated, Noms Provider Primary Care Provi jackson Tate Martinez MD Primary Care Provider [phone] Yanet Junior BRICK WASHER Unavailable [phone] Clarice Orellana DO Unavailable [phone] Reason for Visit * Reason Comments Med Refill Encounter Details Date Type Department Care Team (Late st Contact Info) Description 12/12/2023 Refill [facility] [address] [place] [address] Yanet Junior BRICK WASHER [address] [place] [address] Nausea Social History Tobacco Use Types Packs/Day Years [...] Visit [facility] [address] [place] [id number] Yanet Junior, FADUMO [address] [place] [address] documented as of this encounter Visit Diagnoses Diagnosis Nausea Nausea alone documented in this encounter Care Teams Paramedic Rn Relationship Specialty Start Date End Date Tate Martinez MD [address] [place] [address] PCP - General Family Medicine 04/03/23 12/29/23 Unallocated, Laura Simmons MD [address] [place] [address] PCP - General Family Medicine 12/30/23 01/13/24 Tate Martinez MD [address] [place] [address] PCP - General Family Medicine 01/14/24 Yanet Junior NP [address] [place] [address] PCP - [facility] 03/16/24 Yanet Junior, FADUMO [address] [place] [address] Nurse Practitioner Family Medicine 12/10/23 Clarice Orellana DO [address] [place] [address] Referring Physician Neurology 05/16/24 documented as of this encounter
--- OUTSIDE RECORDS SUMMARY | 2024-10-22 08:40 | XMS_ITS | Clinical Summary ---
Author Organization [employer] Address [id number] [address] [place] [address] Care Team Providers Care Overage Shortage And Damage Clerk Name Role Phone Unavailable Primary Care Provider Unavailabl e Allergies Active Allergy Reactions Criticality Noted Date Comments Hydrocodone-Acetaminophen Vomiting 10/06/2023 Medications clopidogreL (PLAVIX) 75 mg tablet Take 1 tablet (75 mg total) by mouth in the morning. Active atorvastatin (LIPITOR) 80 mg tablet Take 1 tablet (80 mg total) by mouth in the morning. Active metoprolol tartrate (LOPRESSOR) 50 mg tablet Take 0.5 tablets (25 mg total) by mouth in the morning. Active metFORMIN (GLUMETZA) 1000 MG (MOD) 24 hr tablet Take 1 tablet (1,000 mg total) by mouth in the morning and 1 tablet (1,000 mg total) in the evening. Take with meals. Active gabapentin (NEURONTIN) 300 mg capsule Take 400 mg by mouth 3 (three) times a day. Active losartan (COZAAR) 25 mg tablet Take 1 tablet (25 mg total) by mouth in the morning. Active isosorbide mononitrate (IMDUR) 60 mg 24 hr tablet Take 60 mg by mouth daily. Active venlafaxine XR (EFFEXOR-XR) 75 mg 24 hr capsule Take 75 mg by mouth daily. Active venlafaxine XR (EFFEXOR-XR) 150 mg 24 hr capsule Take 150 mg by mouth daily. Active ibuprofen (ADVIL,MOTRIN) 800 mg tablet Take 1 tablet (800 mg total) by mouth every 8 (eight) hours. 30 tablet 09/11/19 Active Additional Information Patient not taking.Reported on 10/06/2023 aspirin 81 mg Take 1 tablet (81 mg total) by mouth in the morning. Active ondansetron ODT (ZOFRAN-ODT) 4 mg disintegrating tablet Dissolve 1 tablet (4 mg total) on tongue every 8 (eight) hours as needed for nausea or vomiting. 20 tablet 10/11/19 20 Active ALPRAZolam (XANAX) 1 mg tablet Take 1 tablet (1 mg total) by mouth 2 (two) times a day as needed for anxiety. 0.5 mg PO BID Active busPIRone (BUSPAR) 5 mg tablet Take 1 tablet (5 mg total) by mouth in the morning and at bedtime. Active empagliflozin (JARDIANCE) 25 mg tablet tablet Take 1 tablet (25 mg total) by mouth in the morning. Active ezetimibe (ZETIA) 10 mg tablet Take 1 tablet (10 mg total) by mouth in the morning. Active hydrOXYzine (ATARAX) 25 mg tablet Take 1 tablet (25 mg total) by mouth 2 (two) times a day as needed for itching. Active omeprazole (PriLOSEC OTC) 20 mg EC tablet Take 1 tablet (20 mg total) by mouth in the morning. Active insulin glargine (LANTUS) 100 unit/mL injection Inject 0.15 mL (15 Units total) under the skin. Active tirzepatide (MOUNJARO) 10 mg/0.5 mL pen injector Inject 10 mg under the skin every 7 days. Active clindamycin (CLEOCIN) 300 mg capsule Take 1 capsule (300 mg total) by mouth in the morning and 1 capsule (300 mg total) at noon and 1 capsule (300 mg total) in the evening and 1 capsule (300 mg total) before bedtime. Active CEPHalexin (KEFLEX) 500 mg capsule Take 1 capsule (500 mg total) by mouth 3 (three) times a day. Active oxyCODONE-acetamin ophen (PERCOCET) 5-325 mg per tablet Take 1 tablet by mouth every 6 (six) hours as needed for pain. Max Daily Amount: 4 tablets Active acetaminophen (TYLENOL EXTRA STRENGTH) 500 mg tablet Take 2 tablets (1,000 mg total) by mouth every 8 (eight) hours as needed for pain. 30 tablet 10/06/19 24 Active ibuprofen (MOTRIN) 800 mg tablet Take 1 tablet (800 mg total) by mouth every 6 (six) hours as needed for pain. 30 tablet 10/06/19 24 Active Active Problems Problem Noted Date Diagnosed Date Labial pain 10/06/2023 Hematoma 10/09/2019 Fluid collection at surgical site 10/09/2019 Admission for wound check of abscess 09/30/2019 Intractable abdominal pain 09/06/2019 Immunizations No known immunizations Family History Medical History Relation Name Comments Heart failure Mother Multiple sclerosis Mother Relation Name Status Comments Mother Social History Tobacco Use Types Packs/Day Years Used Date Smoking Tobacco: Former Cigarettes Q uit: 08/20/2018 Smokeless Tobacco: Never Alcohol Use Standard Drinks/Week Comments Not Currently 0 (1 standard drink = 0.6 oz pur e alcohol) [facility] Utilities Answer Date Recorded In the past 12 months has th e electric, gas, oil, or water company threatened to shut off services in your home? No 10/06/2023 AUDIT-C Answer Date Recorded Q1: How often do you have a drink containing alc ohol? Monthly or less 10/06/2023 Q2: How many drinks containi ng alcohol do you have on a typical day when you are drinking? 1 or 2 10/06/2023 Q3: How often do you have si x or more drinks on one occasion? Never 10/06/2023 PHQ-2 Answer Date Recorded Total Score 0 10/06/2023 PRAPARE - Transportation Answer Date Re corded In the past 12 months, has l ack of transportation kept you from medical appointments or from getting medications? No 09/14 In the past 12 months, has l ack of transportation kept you from meetings, work, or from getting things needed for daily living? No 10/06/2023 Housing Instability Answer Date Recorde d Are you worried or concerned that in the next two months you may not have stable housing that you own, rent or stay in as a part of a household? No 10/06/2023 Childcare Answer Date Recorded Childcare Unknown 08/25/2018 Employment Answer Date Recorded Employment Unknown 08/25/2018 Hunger Screening Answer Date Recorded Within the past 12 months we worried whether our food would run out before we got money to buy more. Never True 10/06/2023 Within the past 12 months th e food we bought just didn't last and we didn't have money to get more. Never True 10/06/2023 Purpose - Life Answer Date Recorded Purpose and direction in life Unknown Comments No Sex and Gender Information Value Date Recorded Sex Assigned at Not on file Legal Sex Female 11:57 AM EDT Gender Identity Not on file Sexual Orientation Not on file Last Filed Vital Signs Vital Sign Reading Time Taken Comments Blood Pressure 92/59 10/07/2023 12:01 AM EDT Pulse 84 10/07/2023 12:01 AM EDT Temperature 36.9 C (98.4 F) 10/07/2023 12:01 AM EDT Respiratory Rate 14 10/07/2023 12:0 1 AM EDT Oxygen Saturation 92% 10/07/2023 12: 01 AM EDT Inhaled Oxygen Concentration - - Weight 108.2 kg (238 lb 8.6 oz) 10/06/2023 6:44 PM EDT Height 162.6 cm (5' 4 ) 10/06/2023 7:00 PM EDT Body Mass Index 40.94 10/06/2023 6:44 PM EDT Plan of Treatment Health Maintenance Due Date Last Done Comments Diabetic Ophthalmology Exam 1981 Statin Use: Diabetic 1981 Adult BMI Follow Up Plan 10/16/1999 Diabetic Foot Exam 10/16/1999 DTaP,Tdap and Td Vaccines (1 - Tdap) 2000 Adult BMI Screening 10/05/2024 10/06/2023 Depression Screening 10/05/2024 10/06/2023 Tobacco Screening 10/05/2024 10/06/2023 Influenza Vaccine 11/14/2024 Goals Goal Patient Goal Type Associated Problems Recent Progress Patient-Stated? Author home General Yes Marilyn Ramirez, RN Note: Evaluation of progress towards goal: Patient plans to discharge home and resume services with [facility] Medical Devices Not on file Insurance [employer] MED[employer] Advance Directives * Full Code (Latest Code Status on File) Date Activated Date Inactivated Comments 10/09/2019 8:05 PM 10/11/2019 10:59 PM * Full Code Date Activated Date Inactivated Comments 09/30/2019 12:33 AM 09/30/2019 6:08 PM * Full Code Date Activated Date Inactivated Comments 09/06/2019 11:57 PM 09/11/2019 4:54 PM
--- OUTSIDE RECORDS SUMMARY | 2024-10-22 08:40 | XMS_ITS | Encounter Summary ---
Author Organization [facility] Address [address] [place] [address] Care Team Providers Care Voice Over Artist Name Role Phone Tate Martinez MD Primary Care Provider [phone] Yanet Junior NP Unavailable Unallocated, Laura Provider Primary Care Provi jackson Tate Martinez MD Primary Care Provider [phone] Yanet Junior NP Unavailable [phone] Clarice Orellana DO Unavailable [phone] Encounter Details Date Type Department Care Team (Late st Contact Info) Description 10/12/2023 Abstract LAURA TORRES [address] [place] [address] Teo Villa DO [address] [facility] [address] Jessica Verdugo, [facility] Social History Tobacco Use Types Packs/Day [...] [facility] [address] [place] [address] Yanet Junior NP [address] [place] [address] documented as of this encounter Visit Diagnoses Not on filedocumented in this encounter Care Teams Voice Over Artist Relationship Specialty Start Date End Date Tate Martinez MD [address] [place] [address] PCP - General Family Medicine 04/03/23 12/29/23 Unallocated, Laura Simmons MD [address] [place] [address] PCP - General Family Medicine 12/30/23 01/13/24 Tate Martinez MD [address] [place] [address] PCP - General Family Medicine 01/14/24 Yanet Junior NP [address] [place] [address] PCP - [facility] 03/16/24 Yanet Junior NP [address] [place] [address] Nurse Practitioner Family Medicine 12/10/23 Clarice Orellana DO [address] [place] [address] Referring Physician Neurology 05/16/24 documented as of this encounter
--- OUTSIDE RECORDS SUMMARY | 2024-10-22 08:41 | XMS_ITS | Encounter Summary ---
Author Organization [facility] Address [address] [place] [address] Care Team Providers Care Composition Roofer Name Role Phone Yanet Junior NP Unavailable [phone] Tate Martinez MD Primary Care Provider [phone] Yanet Junior NP Unavailable [phone] Clarice Orellana DO Unavailable [phone] Encounter Details Date Type Department Care Team (Late st Contact Info) Description 10/03/2024 Results Follow-Up [facility] [address] [place] [address] Social History Tobacco Use Types Packs/Day Years [...] 11/16/2024 3:00 PM EDT Office Visit [facility] [address] [place] [address] Yanet Junior NP [address] [place] [address] documented as of this encounter Visit Diagnoses Not on filedocumented in this encounter Care Teams Composition Roofer Relationship Specialty Start Date End Date Tate Martinez MD [address] [place] [address] PCP - General Family Medicine 01/14/24 Yanet Junior NP [address] [place] [address] PCP - [facility] 03/16/24 Yanet Junior NP [address] [place] [address] Nurse Practitioner Family Medicine 12/10/23 Clarice Orellana DO [address] [place] [address] Referring Physician Neurology 05/16/24 documented as of this encounter
--- OUTSIDE RECORDS SUMMARY | 2024-10-22 08:41 | XMS_ITS | Encounter Summary ---
Author Organization [facility] Address [address] [place] [address] Care Team Providers Care Drain Tile Machine Operator Name Role Phone Tate Martinez MD Primary Care Provider [phone] Yanet Junior NP Unavailable [phone] Unallocated, Nomnilson Provider Primary Care Provi jackson Tate Martinez MD Primary Care Provider [phone] Yanet Junior NP Unavailable [phone] Clarice Orellana DO Unavailable [phone] Encounter Details Date Type Department Care Team (Late st Contact Info) Description 08/11/2023 Orders Only [facility] [address] [place] [address] Yanet Junior NP [address] [place] [address] Social History Tobacco Use Types Packs/Day Years Used Date Smoking Tobacco: Every Day Cigarettes Alcohol Use Standard Drinks/Week Comments Not Currently 0 (1 standard drink = 0.6 oz pure alcohol) caffeine more than 4 cups per day Comments Unknown Sex and Gender Information Value Date Recorded Sex Assigned at Not on file Legal Sex Female 11:40 PM EDT Gender Identity Not on file Sexual Orientation Not on file documented as of this encounter Plan of Treatment Upcoming Encounters Date Type Department Care Team (Late st Contact Info) Description 11/16/2024 3:00 PM EDT Office Visit [facility] [address] [place] [address] Yanet Junior NP [address] [place] [address] documented as of this encounter Procedures Procedure Name Priority Date/Time Associated Diagnosis Comments XR CHEST 1 VIEW Routine 08/11/2023 1:02 PM EDT MISCELLANEOUS LAB TEST Routine 08/10/2023 7:32 AM EDT documented in this encounter Results * XR chest 1 view (08/11/2023 1:02 PM EDT) Anatomical Region Laterality Modality Chest Radiographic Jeniffer ging us Yanet Junior SHOP ASSISTANT IMG XR PROCEDURES Final Result * - Miscellaneous Test (08/10/2023 7:32 AM EDT) us Yanet Junior SHOP ASSISTANT LAB BLOOD ORDERABLES Final Resu lt documented in this encounter Visit Diagnoses Not on filedocumented in this encounter Care Teams Drain Tile Machine Operator Relationship Specialty Start Date End Date Tate Martinez MD [address] [place] [address] PCP - General Family Medicine 04/03/23 12/29/23 Unallocated, Laura Simmons MD [address] [place] [address] PCP - General Family Medicine 12/30/23 01/13/24 Tate Martinez MD [address] [place] [address] PCP - General Family Medicine 01/14/24 Yanet Junior NP [address] [place] [address] PCP - [facility] 03/16/24 Yanet Junior NP [address] [place] [address] Nurse Practitioner Family Medicine 12/10/23 Clarice Orellana DO [address] [place] [address] Referring Physician Neurology 05/16/24 documented as of this encounter
--- OUTSIDE RECORDS SUMMARY | 2024-10-22 08:41 | XMS_ITS | Encounter Summary ---
Author Organization [facility] Address [address] [place] [address] Care Team Providers Care Regrind Mill Operator Name Role Phone Tate Martinez MD Primary Care Provider [phone] Yanet Junior NP Unavailable [phone] Unallocated, Nomnilson Provider Primary Care Provi jackson Tate Martinez MD Primary Care Provider [phone] Yanet Junior NP Unavailable [phone] Clarice Orellana DO Unavailable [phone] Encounter Details Date Type Department Care Team (Late st Contact Info) Description 07/31/2023 Orders Only [facility] [address] [place] [address] Yanet Junior NP [address] [place] [address] Social History Tobacco Use Types [...] Office Visit [facility] [address] [place] [address] Yanet Junior NP [address] [place] [address] documented as of this encounter Procedures Procedure Name Priority Date/Time Associated Diagnosis Comments ELECTROCARDIOGRAM REPORT Routine 024 11:50 AM EDT documented in this encounter Results * Electrocardiogram Report (07/30/2023 11:50 AM EDT) us Yanet Junior NP IN CLINIC/BEDSIDE ORDERABLES Fi nal Result documented in this encounter Visit Diagnoses Not on filedocumented in this encounter Care Teams Regrind Mill Operator Relationship Specialty Start Date End Date Tate Martinez MD [address] [place] [address] PCP - General Family Medicine 04/03/23 12/29/23 Unallocated, Laura Simmons MD [address] [place] [address] PCP - General Family Medicine 12/30/23 01/13/24 Tate Martinez MD [address] [place] [address] PCP - General Family Medicine 01/14/24 Yanet Junior NP [address] [place] [address] PCP - [facility] 03/16/24 Yanet Junior NP [address] [place] [address] Nurse Practitioner Family Medicine 12/10/23 Clarice Orellana DO [address] [place] [address] Referring Physician Neurology 05/16/24 documented as of this encounter
--- OUTSIDE RECORDS SUMMARY | 2024-10-22 08:41 | XMS_ITS | Encounter Summary ---
Author Organization [facility] Address [address] [place] [address] Care Team Providers Care Credit Support Counselor Name Role Phone Tate Martinez MD Primary Care Provider [phone] Tate Martinez MD Primary Care Provider [phone] Yanet Junior SIPHON OPERATOR Unavailable [phone] Unallocated, Noms Provider Primary Care Provi jackson Tate Martinez MD Primary Care Provider [phone] Yanet Junior SIPHON OPERATOR Unavailable [phone] Clarice Orellana DO Unavailable [phone] Encounter Details Date Type Department Care Team (Late st Contact Info) Description 03/15/2023 Abstract [facility] [address] [place] [address] Yanet Junior SIPHON OPERATOR [address] [place] [address] Social History Tobacco Use Types Packs/Day Years Used Date Smoking Tobacco: Every Day Cigarettes Tobacco Cessation:Ready to Q uit: Not Asked; Counseling Given: Not Answered Alcohol Use Standard Drinks/Week Comments Not Currently [...] Office Visit [facility] [address] [place] [address] Yanet Junior, FADUMO [address] [place] [address] documented as of this encounter Visit Diagnoses Not on filedocumented in this encounter Care Teams Credit Support Counselor Relationship Specialty Start Date End Date Tate Martinez MD PCP - General Family Medicine 09/03/22 04/02/23 Tate Martinez MD [address] [place] [address] PCP - General Family Medicine 04/03/23 12/29/23 Unallocated, Laura Simmons MD [address] [place] [address] PCP - General Family Medicine 12/30/23 01/13/24 Tate Martinez MD [address] [place] [address] PCP - General Family Medicine 01/14/24 Yanet Junior, FADUMO [address] [place] [address] PCP - [facility] 03/16/24 Yanet Junior NP [address] [place] [address] Nurse Practitioner Family Medicine 12/10/23 Clarice Orellana DO [address] [place] [address] Referring Physician Neurology 05/16/24 documented as of this encounter
--- OUTSIDE RECORDS SUMMARY | 2024-10-22 08:41 | XMS_ITS | Encounter Summary ---
Author Organization [facility] Address [address] [place] [address] Care Team Providers Care Maintenance Engineer Name Role Phone Yanet Junior NP Unavailable [phone] Tate Martinez MD Primary Care Provider [phone] Yanet Junior FIXTURE REPAIRER FABRICATOR Unavailable [phone] Clarice Orellana DO Unavailable [phone] Reason for Visit * Reason Onset Date Comments Med Refill 06/07/2024 Encounter Details Date Type Department Care Team (Late st Contact Info) Description 06/07/2024 Refill [facility] [address] [place] [address] Tate Martinez MD [address] [place] [address] Social History Tobacco Use Types Packs/Day Years [...] 11/16/2024 3:00 PM EDT Office Visit [facility] [address] [place] [address] Yanet Junior NP [address] [place] [address] documented as of this encounter Visit Diagnoses Not on filedocumented in this encounter Care Teams Maintenance Engineer Relationship Specialty Start Date End Date Tate Martinez MD [address] [place] [address] PCP - General Family Medicine 01/14/24 Yanet Junior NP [address] [place] [address] PCP - [facility] 03/16/24 Yanet Junior NP [address] [place] [address] Nurse Practitioner Family Medicine 12/10/23 Clarice Orellana DO [address] [place] [address] Referring Physician Neurology 05/16/24 documented as of this encounter
--- OUTSIDE RECORDS SUMMARY | 2024-10-22 08:41 | XMS_ITS | Encounter Summary ---
Author Organization [facility] Address [address] [place] [address] Care Team Providers Care Time Lock Expert Name Role Phone Yanet Junior NP Unavailable [phone] Tate Martinez MD Primary Care Provider [phone] Yanet Junior NP Unavailable [phone] Clarice Orellana DO Unavailable [phone] Encounter Details Date Type Department Care Team (Late st Contact Info) Description 03/21/[address] [facility] [address] [place] [address] Alexus Herr, PAYTON [address] [place], [place] [address] Social History Tobacco Use Types Packs/Day Years [...] 11/16/2024 3:00 PM EDT Office Visit [facility] [address] [place] [address] Yanet Junior NP [address] [place] [address] documented as of this encounter Procedures Procedure Name Priority Date/Time Associated Diagnosis Comments DIABETES EYE EXAM Routine 03/21/2024 10:17 AM EST documented in this encounter Results * Diabetes Eye Exam (03/21/2024 10:17 AM EST) [facility] OD HEALTH MAINTENANCE Final Result documented in this encounter Visit Diagnoses Not on filedocumented in this encounter Care Teams Time Lock Expert Relationship Specialty Start Date End Date Tate Martinez MD [address] [place] [address] PCP - General Family Medicine 01/14/24 Yanet Junior NP [address] [place] [address] PCP - [facility] 03/16/24 Yanet Junior NP [address] [place] [address] Nurse Practitioner Family Medicine 12/10/23 Clarice Orellana DO [address] [place] [address] Referring Physician Neurology 05/16/24 documented as of this encounter
--- OUTSIDE RECORDS SUMMARY | 2024-10-22 08:41 | XMS_ITS | Encounter Summary ---
Author Organization [facility] Address [address] [place] [address] Care Team Providers Care Quality Assurance Monitor Body Name Role Phone Yanet Junior NP Unavailable [phone] Tate Martinez MD Primary Care Provider Yanet Junior HAND EDGE BANDER Unavailable [phone] Clarice Orellana DO Unavailable [phone] Reason for Visit * Reason Onset Date Comments Med Refill 07/18/2024 Encounter Details Date Type Department Care Team (Late st Contact Info) Description 07/18/2024 Refill [facility] [address] [place] [address] Tate Martinez MD [address] [place] [address] Social History Tobacco Use Types Packs/Day Years [...] 11/16/2024 3:00 PM EDT Office Visit [facility] [address] [place] [address] Yanet Junior NP [address] [place] [address] documented as of this encounter Visit Diagnoses Not on filedocumented in this encounter Care Teams Quality Assurance Monitor Body Relationship Specialty Start Date End Date Tate Martinez MD [address] [place] [address] PCP - General Family Medicine 01/14/24 Yanet Junior NP [address] [place] [address] [facility] Yanet Junior NP [address] [place] [address] Nurse Practitioner Family Medicine 12/10/23 Clarice Orellana DO [address] [place] [address] Referring Physician Neurology 05/16/24 documented as of this encounter
--- OUTSIDE RECORDS SUMMARY | 2024-10-22 08:41 | XMS_ITS | Encounter Summary ---
Author Organization [facility] Address [address] [place] [address] Care Team Providers Care Photoengraving Proofer Name Role Phone Yanet Junior NP Unavailable [phone] Tate Martinez MD Primary Care Provider Yanet Junior MEDIA PROFESSIONAL Unavailable [phone] Clarice Orellana DO Unavailable [phone] Reason for Visit * Reason Onset Date Comments Med Refill Lab Orders 08/31/2024 Encounter Details Date Type Department Care Team (Late st Contact Info) Description 08/31/2024 Refill [facility] [address] [place] [address] Yanet Junior NP [address] [place] [address] Type 2 diabetes mellitus with diabetic polyneuropathy, with long-term current use of insulin ([facility]) Social History Tobacco Use Types Packs/Day Years [...] on file documented as of this encounter Miscellaneous Notes * Telephone Encounter - Marag Chavez - 09/05/2024 9:57 AM EDT Patient called to reschedule her upcoming appointment, but asked us to fax over her mammogram order, and labs but she didn't know if the ones from February were still the ones you want her to get? Looks like she had some labs done in April as well. Just want to clarify if the labs in February are the ones she still needs. JN documented in this encounter Plan of Treatment Upcoming Encounters Date Type Department Care Team (Late st Contact Info) Description 11/16/2024 3:00 PM EDT Office Visit [facility] [address] [place] [address] Yanet Junior NP [address] [place] [address] documented as of this encounter Visit Diagnoses Diagnosis Type 2 diabetes mellitus with diabetic polyneuropathy, with long-term current use of insulin (HCC) documented in this encounter Care Teams Photoengraving Proofer Relationship Specialty Start Date End Date Tate Martinez MD [address] [place] [address] PCP - General Family Medicine 01/14/24 Yanet Junior NP [address] [place] [address] PCP - [facility] 03/16/24 Yanet Junior NP [address] [place] [address] Nurse Practitioner Family Medicine 12/10/23 Clarice Orellana DO [address] [place] [address] Referring Physician Neurology 05/16/24 documented as of this encounter
--- OUTSIDE RECORDS SUMMARY | 2024-10-22 08:41 | XMS_ITS | Clinical Summary ---
Author Organization [facility] Healthcare Address [address] [place] [address] Care Team Providers Care Mine Captain Name Role Phone Yanet Junior NP Unavailable [phone] Tate Martinez MD Primary Care Provider [phone] Yanet Junior DISPATCH ASSOCIATE Unavailable [phone] Clarice Orellana DO Unavailable [phone] Allergies Active Allergy Reactions Criticality Noted Date Comments Hydrocodone-Acetaminophen GI intolerance 2023 Penicillin G Hives,Nausea And Vomiting 10/20/19 24 Tramadol Hives,Nausea And Vomiting 10/20/2023 Medications Insulin Pen Needle (pen needle 05/29 ) 31G x 5 mm misc Inject under the skin if needed. Use as instructed Active ALPRAZolam (Xanax) 1 MG tablet Take 1 mg by mouth 2 (two) times a day as needed for anxiety. Total of 10 a month, weaning off. Active venlafaxine (Effexor) 100 MG tablet TAKE 1 TABLET BY MOUTH EVERY DAY IN THE EVENING WITH FOOD ORALLY ONCE A DAY 30 DAY(S) 03/05/20 23 Active traZODone (Desyrel) 50 MG tablet TAKE 1 OR 2 TABLETS AT BEDTIME NEEDED 02/20/20 23 Active Blood Glucose Monitoring Suppl (Blood Glucose Monitor System) w/Device kitIndications:Cor onary artery disease involving [place] coronary artery of [place] heart without angina pectoris,Primary hypertension 1 kit Daily 1 kit 07/27/19 24 Active ARIPiprazole (Abilify) 20 MG tablet Take 20 mg by mouth Daily 07/02/19 24 Active hydrOXYzine HCl (Atarax) 25 MG tablet Take 25 mg by mouth 2 (two) times a day as needed Active ibuprofen 800 MG tablet Take 800 mg by mouth every 6 (six) hours if needed 10/06/19 24 Active lamoTRIgine (LaMICtal) 200 MG tablet Take 1 tablet by mouth Daily 09/05/19 24 Active acetaminophen (Tylenol) 500 MG tablet Take 1,000 mg by mouth every 8 (eight) hours if needed 10/06/19 24 Active Glucose Blood (ONETOUCH ULTRA TEST ) 1 each by Other route in the morning and 1 each before bedtime. Active glucose blood (OneTouch Ultra Test) test stripIndications:D iabetes mellitus type 2, insulin dependent (HCC) Twice a day. Use as instructed 100 each 12 01/13/20 24 025 Active Continuous Glucose Diesel Plant Operator (FreeStyle Indu 2 [place]) deviceIndications: Diabetes mellitus type 2, insulin dependent (HCC) 1 each Daily 1 each 03/14/20 24 025 Active metFORMIN XR (Glucophage-XR) 500 MG 24 hr tabletIndications: Type 2 diabetes mellitus with diabetic neuropathy, unspecified (HCC) Take 2 tablets (1,000 mg) by mouth in the morning and 2 tablets (1,000 mg) in the evening. Take before meals. 360 tablet 1 03/14/20 24 Active fluconazole (Diflucan) 150 MG tabletIndications: Yeast infection Take 1 pill day #1, repeat again in 3 days, and again in 3 days 3 tablet 1 04/19/19 25 Active venlafaxine (Effexor) 50 MG tablet Take 50 mg by mouth Daily 04/12/19 25 Active glucose blood (FreeStyle Precision Navi Test) test stripIndications:T ype 2 diabetes mellitus without complication, with long-term current use of insulin ([facility]) Twice a day use. Use as instructed 100 each 6 05/17/19 25 026 Active fluconazole (Diflucan) 150 MG tabletIndications: Yeast infection One time dose, repeat in 3 days. Do not take atorvastatin cholesterol pill while taking the fluconazaole, once completed resume taking the atorvastatin 2 tablet 06/08/19 25 Active Promethegan 25 MG suppository Insert 25 mg into the rectum every 6 (six) hours if needed for nausea or vomiting 07/19/19 25 Active Continuous Glucose Sensor (FreeStyle Indu 2 Sensor) [facility] [place] DIRECTED and change EVERY 14 days 09/01/19 25 Active Aspirin Low Dose 81 MG chewable tablet Chew 81 mg Daily 08/19/19 25 Active hydrocortisone (Anusol-HC) 25 MG suppository Insert 1 suppository (25 mg)rectally twice daily as needed for hemorrhoids for up to 5 days 07/01/19 Active cyanocobalamin (Vitamin B-12) 1000 MCG tabletIndications: Vitamin B12 deficiency Take 1 tablet (1,000 mcg) by mouth Daily 30 tablet 2 10/04/19 Active busPIRone (Buspar) 30 MG tablet Take 30 mg by mouth in the morning and 30 mg before bedtime. 10/11/19 Active atorvastatin (Lipitor) 80 MG tabletIndications: Atherosclerotic heart disease of [place] coronary artery without angina pectoris,Coronary atherosclerosis Take 1 tablet (80 mg) by mouth in the evening 90 tablet 10/12/19 Active budesonide-formote rol (Symbicort) 160-4.5 MCG/ACT inhalerIndications :Pulmonary emphysema, unspecified emphysema type (HCC) Inhale 2 puffs in the morning and 2 puffs before bedtime. Rinse mouth with water after use to reduce aftertaste and incidence of candidiasis. Do not swallow. 3 each 1 10/12/19 Active clopidogrel (Plavix) 75 MG tabletIndications: Coronary atherosclerosis Take 1 tablet (75 mg) by mouth Daily 90 tablet 1 10/12/19 Active cholecalciferol (Natural Vitamin D-3) 5,000 Units tabletIndications: Vitamin D deficiency Take 1 tablet (5,000 Units) by mouth Daily 90 tablet 1 10/12/19 Active empagliflozin (Jardiance) 25 MGIndications:Diab etes mellitus type 2, insulin dependent (HCC) Take 1 tablet (25 mg) by mouth Daily 90 tablet 1 10/12/19 Active ezetimibe (Zetia) 10 MG tabletIndications: Mixed hyperlipidemia Take 1 tablet (10 mg) by mouth in the evening 90 tablet 10/12/19 Active insulin glargine (Lantus SoloStar) 100 UNIT/ML penIndications:Typ e 2 diabetes mellitus without complications (HCC) Inject 10 Units under the skin at bedtime 9 mL 10/12/19 Active losartan (Cozaar) 25 MG tabletIndications: Type 2 diabetes mellitus without complications (HCC) Take 1 tablet (25 mg) by mouth in the morning. 90 tablet 10/12/19 Active metoprolol tartrate (Lopressor) 25 MG tabletIndications: Atherosclerotic heart disease of [place] coronary artery without angina pectoris,Coronary atherosclerosis Take 1 tablet (25 mg) by mouth in the morning and 1 tablet (25 mg) before bedtime. 180 tablet 10/12/19 Active omeprazole (PriLOSEC) [address] capsuleIndications :Gastro-esophageal reflux disease without esophagitis Take 1 capsule (20 mg) by mouth in the morning. Take before meals. 90 capsule 1 10/12/19 Active Tirzepatide (Mounjaro) 12.5 MG/0.5ML solution auto-injectorIndic ations:Type 2 diabetes mellitus without complication, with long-term current use of insulin ([facility]) Inject 12.5 mg under the skin every 7 (seven) days 2 mL 1 10/12/19 Active hydrocortisone (Anusol-HC) 2.5 % rectal creamIndications:H emorrhoids, unspecified hemorrhoid type Twice a day as needed to rectal area 30 g 10/12/19 Active gabapentin (Neurontin) 800 MG tabletIndications: Type 2 diabetes mellitus with diabetic polyneuropathy, with long-term current use of insulin ([facility]) Take 1 tablet (800 mg) by mouth in the morning and 1 tablet (800 mg) in the evening and 1 tablet (800 mg) before bedtime. 90 tablet 2 10/20/19 Active albuterol HFA 90 mcg/act inhalerIndications :Wheezing Inhale 2 puffs every 6 (six) hours if needed for wheezing 8.5 g 10/20/19 25 Active budesonide-formote rol (Symbicort) 160-4.5 MCG/ACT inhalerIndications :Pulmonary emphysema, unspecified emphysema type (HCC) Inhale 2 puffs in the morning and 2 puffs before bedtime. Rinse mouth with water after use to reduce aftertaste and incidence of candidiasis. Do not swallow.. 3 each 1 03/14/20 24 025 Discontin ued(Reord er) insulin glargine (Lantus SoloStar) 100 UNIT/ML penIndications:Typ e 2 diabetes mellitus without complications (HCC) Inject 10 Units under the skin at bedtime 9 mL 1 03/14/20 24 025 Discontin ued(Reord er) losartan (Cozaar) 25 MG tabletIndications: Type 2 diabetes mellitus without complications (HCC) Take 1 tablet (25 mg) by mouth in the morning. 90 tablet 1 03/14/20 025 Discontin ued(Reord er) metoprolol tartrate (Lopressor) 25 MG tabletIndications: Atherosclerotic heart disease of [place] coronary artery without angina pectoris,Coronary atherosclerosis Take 1 tablet (25 mg) by mouth in the morning and 1 tablet (25 mg) before bedtime. 180 tablet 1 03/14/20 24 025 Discontin ued(Reord er) busPIRone (Buspar) 10 MG tablet Take 20 mg by mouth in the morning and 20 mg before bedtime. 04/12/19 025 Discontin ued(Thera py completed ) nicotine (Nicotine Step 1) 21 MG/24HR patchIndications:T obacco use disorder Place 1 patch over 24 hours on the skin 1 (one) time each day at the same time Rotate application site daily, may leave on for 24 hours, or take off prior to bedtime 30 patch 06/08/19 025 Discontin ued(Thera py completed ) omeprazole (PriLOSEC) [address] capsuleIndications :Gastro-esophageal reflux disease without esophagitis Take 1 capsule (20 mg) by mouth in the morning. Take before meals. 90 capsule 1 06/08/19 25 025 Discontin ued(Reord er) clopidogrel (Plavix) 75 MG tabletIndications: Coronary atherosclerosis Take 1 tablet (75 mg) by mouth Daily 90 tablet 07/09/19 25 025 Discontin ued(Reord er) empagliflozin (Jardiance) 25 MGIndications:Diab etes mellitus type 2, insulin dependent (HCC) Take 1 tablet (25 mg) by mouth Daily 90 tablet 1 07/09/19 25 025 Discontin ued(Reord er) ezetimibe (Zetia) 10 MG tabletIndications: Mixed hyperlipidemia Take 1 tablet (10 mg) by mouth in the evening 90 tablet 07/09/19 25 025 Discontin ued(Reord er) atorvastatin (Lipitor) 80 MG tabletIndications: Atherosclerotic heart disease of [place] coronary artery without angina pectoris,Coronary atherosclerosis Take 1 tablet (80 mg) by mouth in the evening 90 tablet 07/09/19 025 Discontin ued(Reord er) albuterol HFA 90 mcg/act inhalerIndications :Wheezing Inhale 2 puffs every 6 (six) hours if needed for wheezing 8.5 g 09/02/19 025 Discontin ued(Reord er) hydrocortisone (Anusol-HC) 2.5 % rectal creamIndications:O ther hemorrhoids Insert into the rectum 4 (four) times a day as needed for hemorrhoids (rectal discomfort) for up to 7 days 30 g 09/16/19 025 Tirzepatide (Mounjaro) 12.5 MG/0.5ML solution auto-injectorIndic ations:Type 2 diabetes mellitus without complication, with long-term current use of insulin ([facility]) Inject 12.5 mg under the skin every 7 (seven) days 2 mL 1 09/19/19 25 025 Discontin ued(Reord er) gabapentin (Neurontin) 800 MG tabletIndications: Type 2 diabetes mellitus with diabetic polyneuropathy, with long-term current use of insulin ([facility]) Take 1 tablet (800 mg) by mouth in the morning and 1 tablet (800 mg) in the evening and 1 tablet (800 mg) before bedtime. 90 tablet 09/19/19 25 025 Discontin ued(Reord er) ondansetron ODT (Zofran-ODT) 4 MG disintegrating tablet Take 4 mg by mouth every 8 (eight) hours if needed for nausea or vomiting 07/19/19 25 025 Discontin ued(Reord er) Natural Vitamin D-3 125 MCG (5000 UT) tablet Take 5,000 Units by mouth Daily 06/20/19 25 025 Discontin ued(Reord er) clopidogrel (Plavix) 75 MG tabletIndications: Coronary atherosclerosis Take 1 tablet (75 mg) by mouth Daily 90 tablet 09/30/19 25 025 Discontin ued(Reord er) albuterol HFA 90 mcg/act inhalerIndications :Wheezing Inhale 2 puffs every 6 (six) hours if needed for wheezing 8.5 g 09/30/19 25 025 Discontin ued(Reord er) cholecalciferol (Natural Vitamin D-3) 5,000 Units tabletIndications: Vitamin D deficiency Take 1 tablet (5,000 Units) by mouth Daily 30 tablet 3 10/04/19 25 025 Discontin ued(Reord er) ondansetron ODT (Zofran-ODT) 4 MG disintegrating tabletIndications: Gastro-esophageal reflux disease without esophagitis Take 1 tablet (4 mg) by mouth every 8 (eight) hours if needed for nausea or vomiting for up to 10 days 30 tablet 10/12/19 025 Active Problems Problem Noted Date Diagnosed Date Hemorrhoids 10/11/2024 Assessment & Plan (10/11/2024 3:52 PM EDT): Pt refuses to have rectal exam, I did explain that I cannot tel without an exam, if hemorrhoid, mass etc I will give one more time of cream and she must go see GI Vitamin B12 deficiency 10/03/2024 Non-compliance 09/22/2024 Other hemorrhoids 07/21/2024 Body mass index (BMI) 40.0-44.9, adult 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 Will check labs Ventral hernia without obstruction or gangrene 1 Assessment & Plan (03/14/2024 6:55 AM EST): Has been refered to General Surgery at [facility] Reviewed s/s incarceration, go to ER if needed No lifting great than 5 pounds Assessment & Plan (12/30/2023 1:08 PM EDT): Will refer to General Surgery at [facility] Reviewed s/s incarceration, go to ER if needed No lifting great than 5 pounds Abdominal pain 12/14/2023 Assessment & Plan (10/11/2024 3:51 PM EDT): Non complaint with fu with GI Refer to GI Vulvar mass 12/14/2023 Vulvar pain 12/14/2023 Labial pain 10/06/2023 Nausea 09/22/2023 Bilateral nephrolithiasis 08/05/2023 Assessment & Plan (08/05/2023 2:42 PM EDT): Er visits X2, reviewed scans, small and non obstructing Did not take atb, I have advised that she take Used to see dr knight, I will place another referral for him Paresthesia of hand, bilateral 05/25/2023 Obstructive sleep apnea, adult 05/25/2023 Assessment & Plan (03/14/2024 6:52 AM EST): You have a diagnosis of obstructive sleep apnea. It is recommended that you wear your PAP device any time while in bed sleeping. Not using the PAP device can increase your risk of elevated/uncontrolled high blood pressure, atrial fibrillation, heart attack, stroke, or sudden . Insomnia 05/25/2023 Dyspareunia, female 05/25/2023 Diabetic neuropathy, painful 05/25/2023 Assessment & Plan (03/14/2024 5:16 PM EST): Was taking christopher at 800mg TID, requested it go down to 600mg TID as it was making her groggy, however she was also taking it same time she was taking her xanax as well. She has now out her dosing, but also is realizing that her christopher dose decrease has made her neuropathy intensify Asking for it to go back to 800mg TID OARRS reviewed, sent in the 800mg TID Also am going to order bilat EMG UE and LE Check labs as well Fu in 6 weeks to review Does feel that her neuropathy is worsening also difficulty with even texting Candidiasis 05/25/2023 GA (myocardial infarction) 05/25/2023 Xanthelasma, eyelid 05/25/2023 Tobacco use disorder 05/25/2023 Assessment & Plan (03/14/2024 7:01 AM EST): The patient has been advised of the risks of continued smoking: stroke, GA, all forms of cancer, lung disease, and . Options for quitting smoking include: cold turkey, hypnosis, acupuncture, nicotine replacement meds (gum, lozenges, and patches), Buproprion, and Varenicline. At this time pt is encouraged to evaluate their goals for wanting to quit smoking, and reach out to provider when ready to start this process Has been prescribe nicotine patches Rectal bleeding 05/25/2023 Fatty liver 05/25/2023 Cyst of left ovary 05/25/2023 Hot flashes due to surgical menopause 05/25/2023 Generalized anxiety disorder with panic attacks 05/25/2023 Assessment & Plan (03/14/2024 5:21 PM EST): Continue with psych Current meds: abilify, xanax, and venalafaxine Would agree that mental health does have a direct effect on her ability to work Assessment & Plan (12/30/2023 1:09 PM EDT): Continue with psych Other psychoactive substance abuse, uncomplicate d 05/25/2023 Overview (05/25/2023): Prescription abuse Discharge from left nipple 05/25/2023 Class 2 severe obesity due t o excess calories with serious comorbidity in adult 05/25/2023 Assessment & Plan (03/14/2024 5:18 PM EST): Discussed with patient their BMI (actual, verses recommended). We have also discussed lifestyle modifications: attempts to perform physical activity as chronic conditions allow, also to monitor dietary intake: increasing protein/fruits/veggies and lowering carb intake (unless contraindicated). Limit sodas, juices, and sugary drinks. Is taking mounjaro for her diabetes, which is helping with weight loss. Has lost over 15 pounds in 2023, however has gained 20 pounds was out of mounjaro Assessment & Plan (05/25/2023 2:20 PM EDT): Has lost 30 pounds since last visit Chronic obstructive pulmonary disease, unspecifi ed 05/25/2023 Assessment & Plan (05/25/2023 2:21 PM EDT): Suspect symptoms of wheezing represent a COPD component Is using albuterol BID, will refill this and add ICS/LABA -rinse mouth after use Fu in 2 months Consider PFT s in the future Type 2 diabetes mellitus without complications 0 05/19/2023 Assessment & Plan (10/11/2024 3:53 PM EDT): Doing well on current meds Check blood sugars daily, notify if <70 or >200. Take medications (pills or insulin) as directed. Monitor for s/s of hypoglycemia (sweaty, dizziness, nausea, vomiting, or shakiness). Watch for increase in thirst, urination, or appetite. Inspect feet frequently monitoring for open wounds , and also recommend yearly eye exam. Pt should attempt to remain as physically active as chronic conditions allow, as well as trying to follow a diet low in carbohydrates, and simple sugars. Current meds: mounjaro, asa, jardiance, metformin, statin A1c 6.0% 10/03/24, 5.9% 01/02/24 Assessment & Plan (03/14/2024 5:23 PM EST): Doing well on current meds Check blood sugars daily, notify if <70 or >200. Take medications (pills or insulin) as directed. Monitor for s/s of hypoglycemia (sweaty, dizziness, nausea, vomiting, or shakiness). Watch for increase in thirst, urination, or appetite. Inspect feet frequently monitoring for open wounds , and also recommend yearly eye exam. Pt should attempt to remain as physically active as chronic conditions allow, as well as trying to follow a diet low in carbohydrates, and simple sugars. Current meds: mounjaro, asa, jardiance, metformin, statin A1c 5.9% 01/02/24 Was out of mounjaro for 6 weeks d/t lack of pharmacy supply, she started back a few weeks ago with 12.5mg. I did instruct the patient that if this happens again in the future, she will need to restart at the lower dose and titrate up Pharmacy does not have supply of free style indu 3, now needs indu 2 sent in Assessment & Plan (12/30/2023 1:09 PM EDT): Doing well on current meds Check A1c Check blood sugars daily, notify if <70 or >200. Take medications (pills or insulin) as directed. Monitor for s/s of hypoglycemia (sweaty, dizziness, nausea, vomiting, or shakiness). Watch for increase in thirst, urination, or appetite. Inspect feet frequently monitoring for open wounds , and also recommend yearly eye exam. Pt should attempt to remain as physically active as chronic conditions allow, as well as trying to follow a diet low in carbohydrates, and simple sugars. Fu in 3 months Assessment & Plan (08/05/2023 2:43 PM EDT): Doing well on current meds Check A1c Check blood sugars daily, notify if <70 or >200. Take medications (pills or insulin) as directed. Monitor for s/s of hypoglycemia (sweaty, dizziness, nausea, vomiting, or shakiness). Watch for increase in thirst, urination, or appetite. Inspect feet frequently monitoring for open wounds , and also recommend yearly eye exam. Pt should attempt to remain as physically active as chronic conditions allow, as well as trying to follow a diet low in carbohydrates, and simple sugars. Fu in 3 months Assessment & Plan (05/25/2023 2:20 PM EDT): A1c is in goal, however cannot get mounjaro in 10mg , trouble with 7.5mg as well. We will increase her dose to 12.5mg And have her stop her insulin, fu in 2 months Check blood sugars daily, notify if <70 or >200. Take medications (pills or insulin) as directed. Monitor for s/s of hypoglycemia (sweaty, dizziness, nausea, vomiting, or shakiness). Watch for increase in thirst, urination, or appetite. Inspect feet frequently monitoring for open wounds , and also recommend yearly eye exam. Pt should attempt to remain as physically active as chronic conditions allow, as well as trying to follow a diet low in carbohydrates, and simple sugars. Yeast infection 05/07/2023 Assessment & Plan (08/05/2023 2:43 PM EDT): Will provide 4 time diflucan May be caused by jardiance will follow to see Sugars per pt report are under good control Presence of stent in coronary artery 04/20/2023 PCOS (polycystic ovarian syndrome) 04/20/2023 TRUONG on CPAP 04/20/2023 Major depressive disorder, recurrent, moderate 0 04/20/2023 Assessment & Plan (03/14/2024 7:01 AM EST): Current meds: venlafaxine, abilify and xanax Continue with psych provider Assessment & Plan (12/30/2023 7:13 AM EDT): Continue with mental health provider GERD (gastroesophageal reflux disease) Assessment & Plan (10/11/2024 3:52 PM EDT): Recommendations: freq small meals, nothing to eat or drink at least 2 hours prior to bed, limit caffeine, alcohol, as well as spicy foods Meds to limit or avoid if possible: NSAIDS Elevate HOB if possible Currently taking Omeprazole Assessment & Plan (03/14/2024 5:18 PM EST): Recommendations: freq small meals, nothing to eat or drink at least 2 hours prior to bed, limit caffeine, alcohol, as well as spicy foods Meds to limit or avoid if possible: NSAIDS Elevate HOB if possible Currently taking Omeprazole Assessment & Plan (12/30/2023 1:08 PM EDT): Continue PPI Coronary artery disease 04/20/2023 Assessment & Plan (03/14/2024 6:54 AM EST): Last appt she was given number for her health promotion specialist: appt scheduled?- Current meds: asa, statin, zetia, losartan, b elian therapy Differentials: GERD, Anxiety, CAD Assessment & Plan (12/30/2023 1:07 PM EDT): Cont current meds Reports does get chest pain, she has the number to her Digital Account Supervisor, it is recommend that she call them to make an appt Differentials: angina, ?anxiety, ?GERD Assessment & Plan (08/05/2023 2:41 PM EDT): Cont current meds No active chest pain Assessment & Plan (05/25/2023 2:01 PM EDT): Cont current meds Encounter for screening mamm ogram for malignant neoplasm of breast 04/20/2023 Hyperlipidemia 03/17/2023 Assessment & Plan (10/11/2024 3:53 PM EDT): Statin therapy Check labs yearly and prn dose changes Primary hypertension 02/09/2023 Assessment & Plan (03/14/2024 6:55 AM EST): Please check blood pressure daily and record DASH diet Limit caffeine Take medication as directed Contact office if chest pain, pressure, dizziness, shortness of breath, swelling legs Recommend slow position changes Current meds: losartan, metoprolol, Assessment & Plan (12/30/2023 1:06 PM EDT): No med dose changes Check chem 8 Assessment & Plan (08/05/2023 2:41 PM EDT): Stable on current meds No changes needed Fu in 3 months Assessment & Plan (05/25/2023 2:19 PM EDT): At goal, no change in meds Assessment & Plan (02/09/2023 4:01 PM EST): Under control, continue current meds Resolved Problems Problem Noted Date Diagnosed Date Resolved Date Vitamin deficiency 03/14/2024 Assessment & Plan (03/14/2024 5:20 PM EST): Check vit d and b12 Labial abscess 12/14/2023 09/22/2024 Postoperative pain 12/14/2023 Urinary tract infection symptoms 09/25/2023 09/22/2024 Obesity (BMI 30-39.9) 08/05/20232023 Chronic maxillary sinusitis 05/25/2023 09/22/2024 Internal hemorrhoid 05/25/2023 10/12/19 25 Hypertension 05/25/2023 05/25/2023 Anxiety and depression 05/25/202303/14 Assessment & Plan (03/14/2024 6:59 AM EST): Is under the care of psychiatry for this Her current meds include: venlafaxine, xanax prn, abilify Continue with psych provider History of GA (myocardial infarction) 04/20/2023 09/22/2024 Generalized anxiety disorder 04/20/2023 03/14/2024 Diabetic neuropathy 04/20/2023 05/25/19 24 Depression 04/20/2023 05/25/2023 Anxiety 04/20/2023 05/25/2023 Wheezing 03/17/2023 07/21/2024 Type 2 diabetes mellitus wit h diabetic polyneuropathy, with long-term current use of insulin 02/09/2023 03/14/2024 Assessment & Plan (03/14/2024 5:17 PM EST): increase gabapentin to 800mg TID OARRS reviewed Assessment & Plan (12/30/2023 1:06 PM EDT): Cont gabapentin at 800mg TID OARRS reviewed Assessment & Plan (05/25/2023 2:18 PM EDT): Will try an increase in christopher to 800mg TID Would like to hold on lyrica for side effect weight gain Fu in 2 months Assessment & Plan (02/09/2023 4:01 PM EST): Check labs, continue current meds and doses Freq foot checks and yearly eye exams COVID-19 12/14/2020 05/25/2023 Encounters Date Type Department Care Team Description 10/19/2024 Refill [facility] [address] [place] [address] Yanet Junior NP Type 2 diabetes mellitus with diabetic polyneuropathy, with long-term current use of insulin ([facility]); Wheezing 10/11/2024 2:00 PM EDT Office Visit [facility] [address] [place] [address] Yanet Junior NP Abdominal pain, unspecified abdominal location (Primary Dx); Gastroesophageal reflux disease, unspecified whether esophagitis present; Hemorrhoids, unspecified hemorrhoid type; Atherosclerotic heart disease of [place] coronary artery without angina pectoris ; Coronary atherosclerosis ; Pulmonary emphysema, unspecified emphysema type (HCC); Vitamin D deficiency; Diabetes mellitus type 2, insulin dependent (HCC); Mixed hyperlipidemia ; Type 2 diabetes mellitus without complications ([facility]); Gastro-esophageal reflux disease without esophagitis; Type 2 diabetes mellitus without complication, with long-term current use of insulin ([facility]) 10/11/2024 Bamboo flowsheet [facility] [address] [place] [address] Yanet Junior NP 10/03/2024 Results Follow-Up [facility] [address] [place] [address] 10/03/2024 Refill [facility] [address] [place] [address] Yanet Junior FADUMO Vitamin B12 deficiency (Primary Dx); Vitamin D deficiency 10/03/2024 Refill [facility] [address] [place] [address] Yanet Junior, DISPATCH ASSOCIATE 10/03/2024 Clinisync Result Encounter [facility] External Department Unsolicited Yanet Junior NP 09/29/2024 Refill [facility] [address] [place] [address] Tate Martinez MD 09/29/2024 Refill [facility] [address] [place] [address] Yanet Junior, FADUMO Coronary atherosclerosis ; Wheezing; Other hemorrhoids 09/18/2024 Refill [facility] [address] [place] [address] Yanet Junior, FADUMO Type 2 diabetes mellitus without complication, with long-term current use of insulin (HCC); Type 2 diabetes mellitus with diabetic polyneuropathy, with long-term current use of insulin ([facility]) 09/18/2024 Refill [facility] [address] [place] [address] Yanet Junior, DISPATCH ASSOCIATE Type 2 diabetes mellitus without complication, with long-term current use of insulin (HCC) 09/15/2024 Refill [facility] [address] [place] [address] Vernon Yanet, DISPATCH ASSOCIATE Other hemorrhoids (Primary Dx) 09/05/2024 Orders Only [facility] [address] [place] [address] Vernon Yanet, DISPATCH ASSOCIATE Vitamin D deficiency (Primary Dx); Vitamin deficiency; Type 2 diabetes mellitus without complication, with long-term current use of insulin (HCC) 08/31/2024 Refill [facility] [address] [place] [address] Yanet Junior NP Type 2 diabetes mellitus with diabetic polyneuropathy, with long-term current use of insulin (HCC); Wheezing 08/31/2024 Refill [facility] [address] [place] [address] Yanet Junior NP Type 2 diabetes mellitus with diabetic polyneuropathy, with long-term current use of insulin (HCC) from Last 3 Months Family History Medical History Relation Name Comments Multiple sclerosis Mother possible medication overdose Mother Relation Name Status Comments Mother Social [...] oz) 10/11/2024 2:33 P M EDT Height 163.8 cm (5' 4.5 ) 03/14/2024 1:08 PM EST Body Mass Index 40.86 03/14/2024 1:08 PM EST Plan of Treatment Upcoming Encounters Date Type Department Care Team (Late st Contact Info) Description 11/16/2024 3:00 PM EDT Office Visit [facility] [address] [place] [address] Yanet Junior NP [address] [place] [address] Health Maintenance Due Date Last Done Comments Mammogram 2021 Diabetes: Hemoglobin A1C 04/05/2025 025, 01/02/2024, 01/02/2024, Additional history exists Diabetes: Urine Protein Screening 10/03/2025 10/03/2024, 10/03/2024, 09/19/2023, Additional history exists Diabetes: Retinopathy Screening 03/18/2026 , 09/26/2022 Influenza Vaccine Discontinued Procedures Procedure Name Priority Date/Time Associated Diagnosis Comments [facility] MA/CR RATIO Routine 10/03/2024 9:06 AM EDT URINALYSIS WITH MICRO Routine 10/03/2024 9:06 AM EDT [facility] HGBA1C Routine 10/03/2024 8:35 AM EDT [facility] VITAMIN D 25 HYDROXY Routine 10/03/2024 8:35 AM EDT [facility] VIT B12 Routine 10/03/2024 8:35 AM EDT [facility] EGFR Routine 10/03/2024 8:35 AM EDT [facility] CMP Routine 10/03/2024 8:35 AM EDT from Last 3 Months Results * (ABNORMAL) URINALYSIS WITH MICRO (10/03/2024 9:06 AM EDT) [facility] UA SPEC DESC Clean Catch [facility] UA COLOR Light-Yellow Yellow [facility] Comment:Microscopic readings are only performed on those samples that meet specific criteria set forth by [facility]. [facility] UA CLARITY Clear Clear [facility] UA SPEC GRAV 1.042 1.005 - 1.030 [facility] UA PH 5.5 5.0 - 9.0 [facility] UA PROTEIN Negative Negative mg/dL [facility] UA GLUCOSE 4+(A) Negative mg/dL [facility] UA KETONES Negative Negative mg/dL [facility] UA BILI Negative Negative mg/dL [facility] UA BLOOD Negative Negative mg/dL FT FT UA NITRITE Negative Negative mg/dL FT FT UA UROBILINOGEN Negative Negative mg/dL [facility] UA LEUK EST Negative Negative CD:[id number] [facility] Urine 10/03/2024 9:06 AM EDT 10/03/2024 9:17 AM EDT Narrative [facility] - 10/03/2024 10:01 AM EDT Original Ordering Provider: FAIZAN JUNIOR Yanet Junior DISPATCH ASSOCIATE LAB BLOOD ORDERABLES Final Resu lt [facility] * [facility] MA/CR RATIO (10/03/2024 9:06 AM EDT) U MICROALB <0.7 0.0 - 1.9 mg/dL [facility] U CREATININE 163.1 mg/dL [facility] MICROALB/CR RATIO NOT CALCULATED 0.0 - 30.0 mg/gm Cr [facility] Comment: 30-300 mg/g Cr indicates an increased risk for diabetic nephropathy. >300 mg/g Cr is consistent with clinical nephropathy. Urine 10/03/2024 9:06 AM EDT 10/03/2024 9:17 AM EDT Narrative [facility]NC - 10/03/2024 11:00 AM EDT Original Ordering Provider: FAIZAN JUNIOR Yanet Junior NP CLINISYNC Final Result [facility] * (ABNORMAL) [facility] VITAMIN D 25 HYDROXY (10/03/2024 8:35 AM EDT) VITAMIN D 25 HYDROXY 29.7(L) 30.0 - 100.0 ng/mL [facility] Blood 10/03/2024 8:35 AM EDT 10/03/2024 9:16 AM EDT Narrative [facility]IS[facility]NC - 10/03/2024 10:12 AM EDT Original Ordering Provider: FAIZAN JUNIOR us Yanet Junior DISPATCH ASSOCIATE [facility]IS[facility] Final Result [facility] * [facility] VIT B12 (10/03/2024 8:35 AM EDT) VITAMIN B12 LVL 119 50 - 1,500 pg/mL [facility] Blood 10/03/2024 8:35 AM EDT 10/03/2024 9:16 AM EDT Narrative [facility]ISYNC - 10/03/2024 10:10 AM EDT Original Ordering Provider: FAIZAN JUNIOR us Yanet Junior DISPATCH ASSOCIATE CLINISYNC Final Result Performing Organization Address [facility] Co de Phone Number [facility] * (ABNORMAL) [facility] HGBA1C (10/03/2024 8:35 AM EDT) Pathologist [facility] HGB A1C % 6.0(H) <=5.9 % [facility] Blood 10/03/2024 8:35 AM EDT 10/03/2024 1:20 PM EDT Narrative CLINISYNC - 10/03/2024 1:52 PM EDT Original Ordering Provider: FAIZAN JUNIOR us Yanet Junior NP CLINISYNC Final Result [facility] * [facility] EGFR (10/03/2024 8:35 AM EDT) Pathologist [facility] EGFR 81 >=59 mL/min/1.73 m2 [facility] Blood 10/03/2024 8:35 AM EDT 10/03/2024 8:54 AM EDT Narrative CLINISYNC - 10/03/2024 9:23 AM EDT Original Ordering Provider: FAIZAN JUNIOR us Yanet Junior NP CLINISYNC Final Result [facility] FT * (ABNORMAL) FT CMP (10/03/2024 8:35 AM EDT) [facility] GLUCOSE LVL 105 55 - 199 mg/dL FT FT BUN 26(H) 5 - 21 mg/dL FT FT CREATININE 0.9 0.5 - 1.3 mg/dL FT FT CALCIUM LVL 10.0 8.9 - 11.1 mg/dL FT FT SODIUM LVL 141 135 - 145 mmol/L [facility] POTASSIUM 4.3 3.5 - 5.3 mmol/L [facility] CHLORIDE 106 101 - 111 mmol/L [facility] CO2 28 21 - 31 mmol/L FT FT ALK PHOS 97 21 - 98 Int._Unit/ L [facility] BILI TOTAL 0.5 0.0 - 1.1 mg/dL FT FT ALBUMIN LVL 4.7 3.3 - 5.0 gm/dL FT FT TOTAL PROTEIN 7.2 6.0 - 7.8 gm/dL [facility] ALT 6 6 - 46 Int._Unit/ L [facility] AST 14 5 - 43 Int._Unit/ L [facility] BUN/CREAT RATIO 29(H) 10 - 20 No Units [facility] AGAP 11 6 - 16 mEq/L [facility] GLOBULIN 2.5 1.4 - 4.0 gm/dL [facility] A/G RATIO 1.9 1.1 - 2.2 [facility] Blood 10/03/2024 8:35 AM EDT 10/03/2024 8:54 AM EDT Narrative [facility]YNC - 10/03/2024 9:23 AM EDT Original Ordering Provider: FAIZAN JUNIOR us Yanet Junior NP CLINISYNC Final Result [facility] FT from Last 3 Months Insurance [employer] Care Teams Mine Captain Relationship Specialty Start Date End Date Tate Martinez MD [address] [place] [address] PCP - General Family Medicine 01/14/24 Yanet Junior NP [address] [place] [address] PCP - [facility] 03/16/24 Yanet Junior NP [address] [place] [address] Nurse Practitioner Family Medicine 12/10/23 Clarice Orellana DO [address] [place] [address] Referring Physician Neurology 05/16/24
--- OUTSIDE RECORDS SUMMARY | 2024-10-22 08:41 | XMS_ITS | Encounter Summary ---
Author Organization [facility] Address [address] [place] [address] Care Team Providers Care Sugar Drier Name Role Phone Yanet Junior NP Unavailable [phone] Tate Martinez MD Primary Care Provider [phone] Yanet Junior DRAWING IN MACHINE TENDER Unavailable [phone] Clarice Orellana DO Unavailable [phone] Reason for Visit * Reason Onset Date Comments Med Refill 09/29/2024 Encounter Details Date Type Department Care Team (Late st Contact Info) Description 09/29/2024 Refill [facility] [address] [place] [address] Tate Martinez MD [address] [place] [address] Social History Tobacco Use Types Packs/Day Years [...] 11/16/2024 3:00 PM EDT Office Visit [facility] [address] [place] [address] Yanet Junior NP [address] [place] [address] documented as of this encounter Visit Diagnoses Not on filedocumented in this encounter Care Teams Sugar Drier Relationship Specialty Start Date End Date Tate Martinez MD [address] [place] [address] PCP - General Family Medicine 01/14/24 Yanet Junior NP [address] [place] [address] PCP - [facility] 03/16/24 Yanet Junior NP [address] [place] [address] Nurse Practitioner Family Medicine 12/10/23 Clarice Orellana DO [address] [place] [address] Referring Physician Neurology 05/16/24 documented as of this encounter
--- OUTSIDE RECORDS SUMMARY | 2024-10-22 08:41 | XMS_ITS | Encounter Summary ---
Author Organization [facility] Address [address] [place] [address] Care Team Providers Care Shipping And Receiving Assistant Name Role Phone Yanet Junior NP Unavailable [phone] Tate Martinez MD Primary Care Provider Yanet Junior AUTOMOTIVE CUSTOMER EXPERIENCE ADVISOR Unavailable [phone] Clarice Orellana DO Unavailable [phone] Reason for Visit * Reason Comments Med Refill Encounter Details Date Type Department Care Team (Late st Contact Info) Description 06/28/2024 Refill [facility] [address] [place] [address] Yanet Junior, AUTOMOTIVE CUSTOMER EXPERIENCE ADVISOR [address] [place] [address] Type 2 diabetes mellitus without complications (HCC) Social History Tobacco Use Types Packs/Day [...] 11/16/2024 3:00 PM EDT Office Visit [facility] [address] [place] [address] Yanet Junior NP [address] [place] [address] documented as of this encounter Visit Diagnoses Diagnosis Type 2 diabetes mellitus without complications (HCC) documented in this encounter Care Teams Shipping And Receiving Assistant Relationship Specialty Start Date End Date Tate Martinez MD [address] [place] [address] PCP - General Family Medicine 01/14/24 Yanet Junior NP [address] [place] [address] PCP - [facility] 03/16/24 Yanet Junior NP [address] [place] [address] Nurse Practitioner Family Medicine 12/10/23 Clarice Orellana DO [address] [place] [address] Referring Physician Neurology 05/16/24 documented as of this encounter
--- OUTSIDE RECORDS SUMMARY | 2024-10-22 08:41 | XMS_ITS | Encounter Summary ---
Author Organization [facility] Address [address] [place] [address] Care Team Providers Care Labor Contractor Name Role Phone Tate Martinez MD Primary Care Provider [phone] Yanet Junior SENIOR SOFTWARE ENGINEERING MANAGER Unavailable [phone] Unallocated, [facility] Provider Primary Care Provi jackson Tate Martinez MD Primary Care Provider [phone] Yanet Junior SENIOR SOFTWARE ENGINEERING MANAGER Unavailable [phone] Clarice Orellana DO Unavailable [phone] Reason for Visit * Reason Comments Med Refill Encounter Details Date Type Department Care Team (Late st Contact Info) Description 09/05/2023 Refill [facility] [address] [place] [address] Yanet Junior SENIOR SOFTWARE ENGINEERING MANAGER [address] [place] [address] Candidiasis, unspecified; Candidiasis Social History Tobacco Use Types Packs/Day Years [...] Visit [facility] [address] [place] [address] Yanet Junior NP [address] [place] [address] documented as of this encounter Visit Diagnoses Diagnosis Candidiasis, unspecified Candidiasis documented in this encounter Care Teams Labor Contractor Relationship Specialty Start Date End Date Tate Martinez MD [address] [place] [address] PCP - General Family Medicine 04/03/23 12/29/23 Unallocated, Noms MD Iris [address] [place] [address] PCP - General Family Medicine 12/30/23 01/13/24 Tate Martinez MD [address] [place] [address] PCP - General Family Medicine 01/14/24 Yanet Junior NP [address] [place] [address] PCP - [facility] 03/16/24 Yanet Junior NP [address] [place] [address] Nurse Practitioner Family Medicine 12/10/23 Clarice Orellana DO [address] [place] [address] Referring Physician Neurology 05/16/24 documented as of this encounter
--- OUTSIDE RECORDS SUMMARY | 2024-10-22 08:41 | XMS_ITS | Encounter Summary ---
Author Organization [facility] Address [address] [place] [address] Care Team Providers Care Police Justice Name Role Phone Yanet Junior NP Unavailable [phone] Tate Martinez MD Primary Care Provider Yanet Junior UNDERCAR SPECIALIST Unavailable [phone] Clarice Orellana DO Unavailable [phone] Reason for Visit * Reason Comments Med Refill Encounter Details Date Type Department Care Team (Late st Contact Info) Description 06/07/2024 Refill [facility] [address] [place] [address] Yanet Junior UNDERCAR SPECIALIST [address] [place] [address] Type 2 diabetes mellitus with diabetic polyneuropathy, with long-term current use of insulin ([facility]) Social History Tobacco Use Types Packs/Day [...] 11/16/2024 3:00 PM EDT Office Visit [facility] [address] [place] [address] Yanet Junior NP [address] [place] [address] documented as of this encounter Visit Diagnoses Diagnosis Type 2 diabetes mellitus with diabetic polyneuropathy, with long-term current use of insulin (HCC) documented in this encounter Care Teams Police Justice Relationship Specialty Start Date End Date Tate Martinez MD [address] [place] [address] PCP - General Family Medicine 01/14/24 Yanet Junior NP [address] [place] [address] PCP - [facility] 03/16/24 Yanet Junior NP [address] [place] [address] Nurse Practitioner Family Medicine 12/10/23 Clarice Orellana DO [address] [place] [address] Referring Physician Neurology 05/16/24 documented as of this encounter
--- OUTSIDE RECORDS SUMMARY | 2024-10-22 08:41 | XMS_ITS | Encounter Summary ---
Author Organization [facility] Address [address] [place] [address] Care Team Providers Care Lactation Nurse Name Role Phone Yanet Junior NP Unavailable [phone] Tate Martinez MD Primary Care Provider Yanet Junior NP Unavailable [phone] Clarice Orellana DO Unavailable [phone] Encounter Details Date Type Department Care Team (Late st Contact Info) Description 04/20/2024 Orders Only [facility] [address] [place] [address] Yanet Junior NP [address] [place] [address] Social History Tobacco Use Types Packs/Day Years [...] [facility] [address] [place] [address] Yanet Junior NP [address] [place] [address] documented as of this encounter Procedures Procedure Name Priority Date/Time Associated Diagnosis Comments SCANNED LABS Routine 04/20/2024 2:59 PM EST SCANNED LABS Routine 04/20/2024 1:23 PM EST documented in this encounter Results * SCANNED LABS (04/20/2024 2:59 PM EST) us Yanet Junior ELECTRIC ORGAN ASSEMBLER AND CHECKER LAB CHG PERFORMABLES Final Resu lt * SCANNED LABS (04/20/2024 1:23 PM EST) us Yanet Videsjohnna ELECTRIC ORGAN ASSEMBLER AND CHECKER LAB CHG PERFORMABLES Final Resu lt documented in this encounter Visit Diagnoses Not on filedocumented in this encounter Care Teams Lactation Nurse Relationship Specialty Start Date End Date Tate Martinez MD [address] [place] [address] PCP - General Family Medicine 01/14/24 Yanet Junior NP [address] [place] [address] PCP - [facility] 03/16/24 Yanet Junior NP [address] [place] [address] Nurse Practitioner Family Medicine 12/10/23 Clarice Orellana DO [address] [place] [address] Referring Physician Neurology 05/16/24 documented as of this encounter
--- OUTSIDE RECORDS SUMMARY | 2024-10-22 08:41 | XMS_ITS | Encounter Summary ---
Author Organization [facility] Address [address] [place] [address] Care Team Providers Care Range Manager Name Role Phone Tate Martinez MD Primary Care Provider [phone] Yanet Junior NP Unavailable [phone] Unallocated, Noms Provider Primary Care Provi jackson Tate Martinez MD Primary Care Provider [phone] Yanet Junior NETBACKUP ADMIN Unavailable [phone] Reyna Clarice DO Unavailable [phone] Reason for Visit * Reason Onset Date Comments Med Refill 11/27/2023 Encounter Details Date Type Department Care Team (Late st Contact Info) Description 11/27/2023 Telephone [facility] [address] [place] [address] Tate Martinez MD [address] [place] [address] Med Refill Social History Tobacco Use Types Packs/Day Years [...] encounter Miscellaneous Notes * Telephone Encounter - [facility] - 12/03/2023 5:28 PM EDT pt asking for Mounjaro 12.5 mg/0.5 mL, medication for yeast infection plus one refill ontop of the prescription and promethozine documented in this encounter Plan of Treatment Upcoming Encounters Date Type Department Care Team (Late st Contact Info) Description 11/16/2024 3:00 PM EDT Office Visit [facility] [address] [place] [address] Yanet Junior, FADUMO [address] [place] [address] documented as of this encounter Visit Diagnoses Not on filedocumented in this encounter Care Teams Range Manager Relationship Specialty Start Date End Date Tate Martinez MD [address] [place] [address] PCP - General Family Medicine 04/03/23 12/29/23 Unallocated, Laura Simmons MD [address] [facility] [place] [address] PCP - General Family Medicine 12/30/23 01/13/24 Tate Martinez MD [address] [place] [address] PCP - General Family Medicine 01/14/24 Yanet Junior NP [address] [place] [address] PCP - [facility] 03/16/24 Yanet Junior NP [address] [place] [address] Nurse Practitioner Family Medicine 12/10/23 Clarice Orellana DO [address] [place] [address] Referring Physician Neurology 05/16/24 documented as of this encounter
--- OUTSIDE RECORDS SUMMARY | 2024-10-22 08:41 | XMS_ITS | Encounter Summary ---
Author Organization [facility] Address [address] [place] [address] Care Team Providers Care Chemistry Laboratory Technician Name Role Phone Tate Martinez MD Primary Care Provider [phone] Tate Martinez MD Primary Care Provider [phone] Yanet Junior CLINICAL APPLICATION MANAGER Unavailable [phone] Unallocated, Noms Provider Primary Care Provi jackson Tate Martinez MD Primary Care Provider [phone] AicYanet banegas CLINICAL APPLICATION MANAGER Unavailable [phone] Clarice Orellana DO Unavailable [phone] Encounter Details Date Type Department Care Team (Late st Contact Info) Description 08/24/2022 Abstract DAVID TORRES [address] [place] [address] Teo Villa DO [address] [place] [address] Social History Tobacco Use Types Packs/Day Years Used Date Smoking Tobacco: Never Assessed Comments Unknown Sex and Gender Information Value Date Recorded Sex Assigned at Not on file Legal Sex Female 11:40 PM EDT Gender Identity Not on file Sexual Orientation Not on file documented as of this encounter Plan of Treatment Upcoming Encounters Date Type Department Care Team (Late Contact Info) Description 11/16/2024 3:00 PM EDT Office Visit [facility] [address] [place] [address] Yanet Junior, FADUMO [address] [place] [address] documented as of this encounter Visit Diagnoses Not on filedocumented in this encounter Care Teams Chemistry Laboratory Technician Relationship Specialty Start Date End Date Tate Martinez MD PCP - General Family Medicine 09/03/22 04/02/23 Tate Martinez MD [address] [place] [address] PCP - General Family Medicine 04/03/23 12/29/23 Unallocated, Noms MD Iris [address] [place] [address] PCP - General Family Medicine 12/30/23 01/13/24 Tate Martinez MD [address] [place] [address] PCP - General Family Medicine 01/14/24 Yanet Junior NP [address] [place] [address] PCP - [facility] 03/16/24 Yanet Junior NP [address] [place] [address] Nurse Practitioner Family Medicine 12/10/23 Clarice Orellana DO [address] [place] [address] Referring Physician Neurology 05/16/24 documented as of this encounter
--- OUTSIDE RECORDS SUMMARY | 2024-10-22 08:41 | XMS_ITS | Encounter Summary ---
Author Organization [facility] Address [address] [place] [address] Care Team Providers Care Pipe Organ Installer Name Role Phone Yanet Junior NP Unavailable [phone] Tate Martinez MD Primary Care Provider Yanet Juinor VISUAL LEAD Unavailable [phone] Clarice Orellana DO Unavailable [phone] Reason for Visit * Reason Onset Date Comments Med Refill 07/08/2024 Encounter Details Date Type Department Care Team (Late st Contact Info) Description 07/08/[address] [facility] [address] [place] [address] Tate Martinez MD [address] [place] [address] Social History Tobacco Use Types Packs/Day Years [...] 11/16/2024 3:00 PM EDT Office Visit [facility] [address] [place] [address] Yanet Junior NP [address] [place] [address] documented as of this encounter Visit Diagnoses Not on filedocumented in this encounter Care Teams Pipe Organ Installer Relationship Specialty Start Date End Date Tate Martinez MD [address] [place] [address] PCP - General Family Medicine 01/14/24 Yanet Junior NP [address] [place] [address] PCP - [facility] 03/16/24 Yanet Junior NP [address] [place] [address] Nurse Practitioner Family Medicine 12/10/23 Clarice Orellana DO [address] [place] [address] Referring Physician Neurology 05/16/24 documented as of this encounter
--- OUTSIDE RECORDS SUMMARY | 2024-10-22 08:41 | XMS_ITS | Encounter Summary ---
Author Organization [facility] Address [address] [place] [address] Care Team Providers Care Endocrinologist Name Role Phone Tate Martinez MD Primary Care Provider Yanet Junior NP Unavailable [phone] Unallocated, Nomnilson Provider Primary Care Provi jackson Tate Martinez MD Primary Care Provider [phone] Yanet Junior NP Unavailable [phone] Clarice Orellana DO Unavailable [phone] Encounter Details Date Type Department Care Team (Late st Contact Info) Description 09/28/2023 Orders Only [facility] [address] [place] [address] Yanet Junior NP [address] [place] [address] Social History Tobacco Use Types [...] 3:00 PM EDT Office Visit [facility] [address] [place] [address] Yanet Junior NP [address] [place] [address] documented as of this encounter Procedures Procedure Name Priority Date/Time Associated Diagnosis Comments MISCELLANEOUS LAB TEST Routine 09/25/2023 10:19 AM EDT MISCELLANEOUS LAB TEST Routine 09/25/2023 10:17 AM EDT documented in this encounter Results * - Miscellaneous Test (09/25/2023 10:19 AM EDT) Yanet Junior CORPORATE HUMAN RESOURCES MANAGER LAB BLOOD ORDERABLES Final Resu lt * - Miscellaneous Test (09/25/2023 10:17 AM EDT) Yanet Junior CORPORATE HUMAN RESOURCES MANAGER LAB BLOOD ORDERABLES Final Resu lt documented in this encounter Visit Diagnoses Not on filedocumented in this encounter Care Teams Endocrinologist Relationship Specialty Start Date End Date Tate Martinez MD [address] [place] [address] PCP - General Family Medicine 04/03/23 12/29/23 Unallocated, Laura Simmons MD [facility] [place] [facility] [place] [address] PCP - General Family Medicine 12/30/23 01/13/24 Tate Martinez MD [address] [place] [address] PCP - General Family Medicine 01/14/24 Yanet Junior NP [address] [place] [address] PCP - [facility] 03/16/24 Yanet Junior NP [address] [place] [address] Nurse Practitioner Family Medicine 12/10/23 Clarice Orellana DO [address] [place] [address] Referring Physician Neurology 05/16/24 documented as of this encounter
--- OUTSIDE RECORDS SUMMARY | 2024-10-22 08:41 | XMS_ITS | Encounter Summary ---
Author Organization [facility] Address [address] [place] [address] Care Team Providers Care Control Room Supervisor Name Role Phone Yanet Junior NP Unavailable [phone] Tate Martinez MD Primary Care Provider Yanet Junior BAG PRINTER Unavailable [phone] Clarice Orellana DO Unavailable [phone] Reason for Visit * Reason Onset Date Comments Med Refill 10/19/2024 Encounter Details Date Type Department Care Team (Late st Contact Info) Description 10/19/2024 Refill [facility] [address] [place] [address] Yanet Junior BAG PRINTER [address] [place] [address] Type 2 diabetes mellitus with diabetic polyneuropathy, with long-term current use of insulin (HCC); Wheezing Social History Tobacco Use Types Packs/Day Years [...] Visit [facility] [address] [place] [phone] Yanet Junior NP [address] [place] [address] documented as of this encounter Visit Diagnoses Diagnosis Type 2 diabetes mellitus with diabetic polyneuropathy, with long-term current use of insulin (HCC) Wheezing documented in this encounter Care Teams Control Room Supervisor Relationship Specialty Start Date End Date Tate Martinez MD [address] [place] [address] PCP - General Family Medicine 01/14/24 Yanet Junior NP [address] [place] [address] PCP - [facility] 03/16/24 Yanet Junior NP [address] [place] [address] Nurse Practitioner Family Medicine 12/10/23 Clarice Orellana DO [address] [place] [address] Referring Physician Neurology 05/16/24 documented as of this encounter
--- OUTSIDE RECORDS SUMMARY | 2024-10-22 08:41 | XMS_ITS | Encounter Summary ---
Author Organization [facility] Address [address] [place] [address] Care Team Providers Care Granite Chip Terrazzo Finisher Name Role Phone Tate Martinez MD Primary Care Provider Yanet Junior NP Unavailable [phone] Unallocated, Noms Provider Primary Care Provi jackson Tate Martinez MD Primary Care Provider [phone] Yanet Junior NP Unavailable [phone] Clarice Orellana DO Unavailable [phone] Encounter Details Date Type Department Care Team (Late st Contact Info) Description 06/01/2023 [facility] [address] [place] [address] Mikaela Judd MD [address] [place] [address] Social History Tobacco Use Types Packs/Day Years [...] Visit [facility] [address] [place] [address] Yanet Junior, FADUMO [address] [place] [address] documented as of this encounter Procedures Procedure Name Priority Date/Time Associated Diagnosis Comments URINALYSIS, COMPLETE Routine 05/28/2023 12:16 PM EDT documented in this encounter Results * Urinalysis with microscopic (05/28/2023 12:16 PM EDT) Urine Urine specimen obtained by clean catch procedure / Unknown Mikaela Judd MD LAB URINE ORDERABLES Final Res ult documented in this encounter Visit Diagnoses Not on filedocumented in this encounter Care Teams Granite Chip Terrazzo Finisher Relationship Specialty Start Date End Date Tate Martinez MD [address] [place] [address] PCP - General Family Medicine 04/03/23 12/29/23 Unallocated, Laura Simmons MD [facility] [place] [address] PCP - General Family Medicine 12/30/23 01/13/24 Tate Martinez MD [address] [place] [address] PCP - General Family Medicine 01/14/24 Yanet Junior NP [address] [place] [address] PCP - [facility] 03/16/24 Yanet Junior, FADUMO [address] [place] [address] Nurse Practitioner Family Medicine 12/10/23 Clarice Orellana DO [address] [place] [address] Referring Physician Neurology 05/16/24 documented as of this encounter
--- OUTSIDE RECORDS SUMMARY | 2024-10-22 08:41 | XMS_ITS | Encounter Summary ---
Author Organization [facility] Address [address] [place] [address] Care Team Providers Care Manager Etl Name Role Phone Yanet Junior NP Unavailable [phone] Tate Martinez MD Primary Care Provider [phone] Yanet Junior NP Unavailable [phone] Clarice Orellana DO Unavailable [phone] Encounter Details Date Type Department Care Team (Late st Contact Info) Description 07/11/2024 Orders Only [facility] [address] [place] [address] Mikaela Judd MD [address] [place] [address] [place] [address] Social History Tobacco Use Types Packs/Day Years [...] 11/16/2024 3:00 PM EDT Office Visit [facility] [address] [place] [address] Yanet Junior NP [address] [place] [address] documented as of this encounter Procedures Procedure Name Priority Date/Time Associated Diagnosis Comments SCANNED LABS Routine 07/11/2024 1:51 PM EDT XR CHEST 1 VIEW Routine 07/11/2024 1:31 PM EDT documented in this encounter Results * SCANNED LABS (07/11/2024 1:51 PM EDT) Mikaela Judd MD LAB CHG PERFORMABLES Final Res ult * XR chest 1 view (07/11/2024 1:31 PM EDT) Anatomical Region Laterality Modality Chest Radiographic Jeniffer ging Mikaela Judd MD IMG XR PROCEDURES Final Result documented in this encounter Visit Diagnoses Not on filedocumented in this encounter Care Teams Manager Etl Relationship Specialty Start Date End Date Tate Martinez MD [address] [place] [address] PCP - General Family Medicine 01/14/24 Yanet Junior NP [address] [place] [address] PCP - [facility] 03/16/24 Yanet Junior NP [address] [place] [address] Nurse Practitioner Family Medicine 12/10/23 Clarice Orellana DO [address] [place] [address] Referring Physician Neurology 05/16/24 documented as of this encounter
--- OUTSIDE RECORDS SUMMARY | 2024-10-22 08:41 | XMS_ITS | Encounter Summary ---
Author Organization [facility] Address [address] [place] [address] Care Team Providers Care Eclectic Doctor Name Role Phone Yanet Junior NP Unavailable [phone] Tate Martinez MD Primary Care Provider [phone] Yanet Junior NP Unavailable [phone] Clarice Orellana DO Unavailable [phone] Encounter Details Date Type Department Care Team (Late st Contact Info) Description 10/11/2024 Bamboo flowsheet [facility] [address] [place] [address] Yanet Junior NP [address] [place] [address] Social History Tobacco Use Types Packs/Day Years [...] 11/16/2024 3:00 PM EDT Office Visit [facility] [address] [place] [address] Yanet Junior NP [address] [place] [address] documented as of this encounter Visit Diagnoses Not on filedocumented in this encounter Care Teams Eclectic Doctor Relationship Specialty Start Date End Date Tate Martinez MD [address] [place] [address] PCP - General Family Medicine 01/14/24 Yanet Junior NP [address] [place] [address] PCP - [facility] 03/16/24 Yanet Junior NP [address] [place] [address] Nurse Practitioner Family Medicine 12/10/23 Clarice Orellana DO [address] [place] [address] Referring Physician Neurology 05/16/24 documented as of this encounter
--- OUTSIDE RECORDS SUMMARY | 2024-10-22 08:41 | XMS_ITS | Encounter Summary ---
Author Organization [facility] Address [address] [place] [address] Care Team Providers Care Medical Office Coordinator Name Role Phone Yanet Junior NP Unavailable [phone] Tate Martinez MD Primary Care Provider [phone] Yanet Junior NP Unavailable [phone] Clarice Orellana DO Unavailable [phone] Encounter Details Date Type Department Care Team (Late st Contact Info) Description 05/23/2024 Orders Only [facility] [address] [place] [address] Bradford Hatfield MD [address] [place] [address] [place] [address] Social History Tobacco Use Types Packs/Day Years [...] 11/16/2024 3:00 PM EDT Office Visit [facility] [address] [place] [address] Yanet Junior NP [address] [place] [address] documented as of this encounter Procedures Procedure Name Priority Date/Time Associated Diagnosis Comments SCANNED LABS Routine 05/23/2024 1:35 PM EDT documented in this encounter Results * SCANNED LABS (05/23/2024 1:35 PM EDT) us Bradford Hatfield MD LAB CHG PERFORMABLES Final R esult documented in this encounter Visit Diagnoses Not on filedocumented in this encounter Care Teams Medical Office Coordinator Relationship Specialty Start Date End Date Tate Martinez MD [address] [place] [address] PCP - General Family Medicine 01/14/24 Yanet Junior NP [address] [place] [address] PCP - [facility] 03/16/24 Yanet Junior NP [address] [place] [address] Nurse Practitioner Family Medicine 12/10/23 Clarice Orellana DO [address] [place] [address] Referring Physician Neurology 05/16/24 documented as of this encounter
--- OUTSIDE RECORDS SUMMARY | 2024-10-22 08:43 | XMS_ITS | CCD ---
Author Organization [facility] Care Team Providers Care Director Women Name Role Phone RENA JUNIORA Silver Primary Care Physician Aleah Norton Unavailable Unavailable AICHHARSHA, SUPERVISOR TOY ASSEMBLY YANET Primary Care Unavailable GERMAINE DOW Admitting Unavailable GERMAINE DOW Attending Unavailable GERMAINE DOW Consulting Unavailable JULIO KOWALSKI Admitting Unavailable JULIO KOWALSKI Attending Unavailable AICHHOLZ, SUPERVISOR TOY ASSEMBLY YANET Primary Care Unavailable JONO, DR ERUM Raya Consulting Unavailable JULIO KOWALSKI Consulting Unavailable AICHHOLZ, SUPERVISOR TOY ASSEMBLY YANET Admitting Unavailable AICHHOLZ, SUPERVISOR TOY ASSEMBLY YANET Attending Unavailable AICHHOLZ, SUPERVISOR TOY ASSEMBLY YANET Primary Care Unavailable AICHHOLZ, SUPERVISOR TOY ASSEMBLY YANET Consulting Unavailable Tate Martinez MD Primary Care Provider Gunnar Rangel Attending Unavailable Liudmila, Kevin SMichael Attending Unavailable Mikaela Judd Attending Unavailable Gunnar Rangel Attending Unavailable AICHHOLZ, YANET J Admitting Unavailable AICHHOLZ, YANET J Attending Unavailable AICHHOLZ, YANET J Admitting Unavailable AICHHOLZ, YANET J Attending Unavailable DoDO Janes barlow A Attending Unavailable AICHHOLZ, YANET J Primary Care Unavailable Clemente ORTIZ Attending Unavailable AICHHOLZ, YANET J Referring Unavailable DokkenDO Marrero A Attending Unavailable AICHHOLZ, YANET J Admitting Unavailable AICHHOLZ, YANET J Attending Unavailable Juan Arnold Attending Unavailable AICHHOLZ, YANET J Attending Unavailable AICHHOLZ, YANET J Admitting Unavailable Liudmila, Kevin S. Attending Unavailable ERUM FISHMAN Admitting Unavailable ERUM FISHMAN Attending Unavailable CASSANDRA CHEN Referring Unavailable Juan Arnold Attending Unavailable Liudmila, Kevin S. Attending Unavailable DO Vanita Richardson. Attending Unavaila DO Vanita Otero. Admitting Unavaila Kevin King Attending Unavailable NON STAFF Primary Care Provider Unavailabl e Jose Miguel, [facility] Dora E Emergency Provider Dylan, DO Vanita Sheppard. Admitting Unavaila ble DO Dylan Vanita J. Attending Unavaila DO Janes Jackson Attending Unavailable Bullimore, Dora E Attending Unavailable Bullimore, Dora E Admitting Unavailable NON STAFF Primary Care Unavailable Emely HAYNES Unavailable Juan Arnold Attending Unavailable Semaj QUINTEROS Attending Unavailable AICHHOLZ, YANET J Referring Unavailable Aichholz PIPE BENDER, Yanet Unavailable Unallocated MD, Noms Provider Primary Care [facility] Tate Martinez MD Primary Care Provider [phone] Janes Bowles Attending Unavailable Malcom Albright Attending Unavailable Malcom Albright Admitting Unavailable AICLuisaHOLZ, YANET J Attending Unavailable AICLuisaHOLBrock, YANET J Admitting Unavailable Gunnar Clement Attending Unavailable AICHHOLZ, YANET J Referring Unavailable AICHHOLZ, YANET J Admitting Unavailable AICHHOLZ, YANET J Attending Unavailable AICHHOLZ, YANET J Referring Unavailable AICHHOLZ, YANET J Attending Unavailable AICHHOLZ, YANET J Admitting Unavailable AICHHOLZ, YANET J Admitting Unavailable AICHHOLZ, YANET J Attending Unavailable AICHHOLZ, YANET J Referring Unavailable Gunnar Clement. Attending Unavailable Unavailable Primary Care Provider Unavailabl e Aichholz PIPE BENDER, Yanet Unavailable Juhi Orellana DO Unavailable AICHHOLZ, YANET J Admitting Unavailable AICHHOLZ, YANET J Attending Unavailable Liu, Kalia Attending Unavailable Liu, Kalia Attending Unavailable Binta, Astrit H Attending Unavailable AICHHOLZ, YANET J Admitting Unavailable AICHHOLZ, YANET J Attending Unavailable Hacherryari, Astrit H Attending Unavailable Wendi Eddy Attending Unavailable JUHI ORELLANA Attending Unavailable YANET JUNIOR Referring Unavailable YANET JUNIOR Attending Unavailable TEO VILLA Attending Unavailable YANET JUNIOR Attending Unavailable YANET JUNIOR Attending Unavailable Jim Foreman Referring Unavailable Gunnar Clement Attending Unavailable YANET JUNIOR Admitting Unavailable YANET JUNIOR Attending Unavailable Jim Foreman Attending Unavailable Allergies Allergy Classification Reported Allergen(s) Allergy Type Date of Onset Reaction(s) Facility (20 sources) Acetaminophen / HYDROcodone; Translations: [acetaminophen-hy drocodone] Drug Allergy 4 Vomitus (substance), Vomiting [facility] (20 sources) Acetaminophen / HYDROcodone; Translations: [HYDROCODONE-ACET AMINOPHEN] Drug Allergy 4 GI intolerance [facility] (20 sources) Penicillin; Translations: [penicillin] Drug Allergy Nausea and vomiting (disorder), Weal (disorder) [facility] (20 sources) traMADol; Translations: [tramadol] Drug Allergy 4 Weal (disorder), Nausea and vomiting (disorder), Hives, Nausea And Vomiting [facility] (2 sources) Acetaminophen; Translations: [acetaminophen] Drug Allergy 4 Unknown Reaction [facility] (2 sources) HYDROcodone; Translations: [hydrocodone] Drug Allergy 4 Unknown Reaction [facility] (2 sources) Penicillins; Translations: [Penicillins] Allergy to substance 4 Unknown Reaction [facility] (1 source) traMADol Drug Allergy 4 [facility] (20 sources) Penicillin G Drug Allergy 4 Hives, Nausea And Vomiting [facility] Medications Current Medications Medication Drug Class(es) Dates Sig (Normalized) Sig (Original) 0.5 ML tirzepatide 25 MG/ML Auto-Injector [Mounjaro] (1 source) Start: 07-18-2024 inject 12.5 mg by subcutaneous injection every week Mounjaro 12.5 mg/0.5 mL subcutaneous solution 12.5 mg, SubCutaneous, qWeek, Refills(s) 0 Start Date: 07/18/24 Status: Ordered Repeat number: 1 acetaminophen 500 mg oral tablet (20 sources) Start: 10-06-2023 take 2 tablets by mouth every eight hours as needed acetaminophen (Tylenol) 500 MG tablet Take 1,000 mg by mouth every 8 (eight) hours if needed 10/06/2023 Active acetaminophen 325 mg / HYDROcodone bitartrate 5 mg oral tablet (2 sources) Opioid Agonist Start: 12-30-2020 Hope 325 mg-5 mg oral tablet 1 tab(s), Oral, q6hr for pain, 2 tab(s), Refill(s) 0, [id number], 162, cm, 12/30/20 16:50:00 EDT, Height/Length Dosing, 118, kg, 12/30/20 16:50:00 EDT, Weight Dosing Start Date: 12/30/20 Status: Ordered acetaminophen 325 mg / oxyCODONE hydrochloride 5 mg oral tablet (20 sources) Opioid Agonist Start: 10-02-2023 End: 03-14-2024 Percocet 5 mg-325 mg oral tablet 1 tab(s), Oral, q6hr, 7 tab(s), Refill(s) 0, [id number], 160, cm, 10/02/23 12:44:00 EDT, Height/Length Dosing, 105.3, kg, 10/02/23 12:44:00 EDT, Weight Dosing Start Date: 10/02/23 Status: Ordered Quantity: 7.0 Unit: tab(s) Repeat number: 1 Start: 05-28-2023 End: 05-31-2023 Percocet 5 mg-325 mg oral ta blet 1 tab(s), Oral, q6hr as needed for pain for 3 day(s), 15 tab(s), Refill(s) 0, [id number], 160, cm, 05/28/23 13:08:00 EDT, Height/Length Dosing, 115, kg, 05/28/23 13:08:00 EDT, Weight Dosing Start Date: 05/28/23 Stop Date: 05/31/23 Status: Ordered Start: 12-28-2020 End: 10-28-2022 acetaminophen-oxycodone 325 mg-5 mg Tab 1 tab(s), Oral, q6hr for pain for 3 day(s), 12 tab(s), Refill(s) 0, [id number], 160, cm, 10/25/22 9:40:00 EDT, Height/Length Dosing, 115, kg, 10/25/22 9:40:00 EDT, Weight Dosing Start Date: 10/25/22 Stop Date: 10/28/22 Status: Ordered Start: 12-28-2020 Percocet 325 m g-5 mg Tab 1 tab(s), Oral, q6hr as needed for pain, 8 tab(s), Refill(s) 0 Start Date: 12/28/20 Status: Ordered Albuterol (Eqv-Ventolin HFA) 90 mcg/inh inhalation aerosol (13 sources) Start: 10-08-2023 take 2 puff(s) by inhalation every six hours Albuterol (Eqv-Ventolin HFA) 90 mcg/inh inhalation aerosol 2 puff(s), Inhalation, q6hr, Refill(s) 0 Start Date: 10/08/23 Status: Ordered Repeat number: 1 Start: 10-08-2023 take 2 puff(s) by in halation every six hours Albuterol (Eqv-Ventolin HFA) 90 mcg/inh inhalation aerosol 2 puff(s), Inhalation, q6hr, Refill(s) 0 Start Date: 10/08/23 Status: Ordered ALPRAZolam 1 mg oral tablet (20 sources) Benzodiazepine Start: 01-02-2021 take 1 tablet by mouth twice daily as needed for anxiety Xanax 1 mg Tab 1 mg = 1 tab(s), Oral, BID, PRN for anxiety, Refills(s) 0 Start Date: 01/02/21 Status: Ordered Repeat number: 1 take 0.5 mg by mouth twice daily as needed ALPRAZolam (XANAX) 1 mg tablet Take 1 tablet (1 mg total) by mouth 2 (two) times a day as needed for anxiety. 0.5 mg PO BID Active ARIPiprazole 20 mg oral tablet (20 sources) Atypical Antipsychotic Start: 07-02-2023 take 1 tablet by mouth once daily ARIPiprazole (Abilify) 20 MG tablet Take 20 mg by mouth Daily 07/02/2023 Active aspirin 81 mg chewable tablet (20 sources) Platelet Aggregation Inhibitor, Nonsteroidal Anti-inflammatory Drug Start: 08-18-2024 Aspirin Low Dose 81 MG chewable tablet Chew 81 mg Daily 08/18/2024 Active Start: 12-19-2018 End: 08-06-2024 Aspirin Low Dose 81 MG chewa ble tablet Chew 81 mg Daily 08/18/2024 Active take 1 tablet by addi th in the morning aspirin 81 mg Take 1 tablet (81 mg total) by mouth in the morning. Active atorvastatin 80 mg oral tablet (20 sources) HMG-CoA Reductase Inhibitor Start: 09-15-2018 End: 01-09-2025 take 1 tablet by mouth in the evening atorvastatin (Lipitor) 80 MG tablet Indications: Atherosclerotic heart disease of creek coronary artery without angina pectoris , Coronary atherosclerosis Take 1 tablet (80 mg) by mouth in the evening 90 tablet 10/11/2024 01/09/2025 Active Blood Glucose Monitoring Suppl (Blood Glucose Monitor System) w/Device kit (20 sources) Start: 07-27-2023 Blood Glucose Monitoring Suppl (Blood Glucose Monitor System) w/Device kit Indications: Coronary artery disease involving creek coronary artery of creek heart without angina pectoris , Primary hypertension 1 kit Daily 1 kit 07/27/2023 Active Start: 07-27-2023 Blood Glucose Monitoring Suppl (Blood Glucose Monitor System) w/Device kit Indications: Coronary artery disease involving creek coronary artery of creek heart without angina pectoris (CMS/HCC) , Primary hypertension (CMS/HCC) 1 kit Daily 1 kit 07/27/2023 Active Blood Glucose Mo nitoring Suppl (Blood Glucose Monitor System) w/Device kit Blood Pressure kit (20 sources) Start: 08-03-2023 End: 08-02-2024 Blood Pressure kit Indicatio ns: Primary hypertension (CMS/HCC) 1 kit Daily 1 kit 08/03/2023 08/02/2024 Active Blood Pressure k it 60 actuat budesonide 0.16 mg/actuat / formoterol fumarate 0.0045 mg/actuat metered dose inhaler (20 sources) Corticosteroid, beta2-Adrenergic Agonist Start: 10-14-2023 End: 01-09-2025 take 2 puff(s) by inhalation in the morning budesonide-formoterol (Symbicort) 160-4.5 MCG/ACT inhaler Indications: Pulmonary emphysema, unspecified emphysema type (HCC) Inhale 2 puffs in the morning and 2 puffs before bedtime. Rinse mouth with water after use to reduce aftertaste and incidence of candidiasis. Do not swallow. 3 each 1 10/11/2024 01/09/2025 Active busPIRone hydrochloride 30 mg oral tablet (20 sources) Start: 10-10-2024 take 1 tablet by mouth in the morning busPIRone (Buspar) 30 MG tablet Take 30 mg by mouth in the morning and 30 mg before bedtime. 10/10/2024 Active Start: 04-12-2024 End: 10-11-2024 take 2 tablets by mouth in the morning busPIRone (Buspar) 10 MG tablet Take 20 mg by mouth in the morning and 20 mg before bedtime. 04/12/2024 10/11/2024 Discontinued (Therapy completed) Start: 06-13-2023 take 1 tablet by addi th in the morning busPIRone (Buspar) 15 MG tablet Take 15 mg by mouth in the morning and 15 mg before bedtime. 06/13/2023 Active take 1 tablet by addi th at bedtime busPIRone (BUSPAR) 5 mg tablet Take 1 tablet (5 mg total) by mouth in the morning and at bedtime. Active cephalexin 500 mg oral capsule (13 sources) Cephalosporin Antibacterial Start: 07-30-2023 End: 12-30-2023 take 1 capsule by mouth three times daily CEPHalexin (KEFLEX) 500 mg capsule Take 1 capsule (500 mg total) by mouth 3 (three) times a day for 7 days. 21 capsule 10/06/2023 10/13/2023 Active cholecalciferol 0.125 mg oral tablet (17 sources) Vitamin D Start: 06-19-2024 End: 01-09-2025 take 1 tablet by mouth once daily cholecalciferol (Natural Vitamin D-3) 5,000 Units tablet Indications: Vitamin D deficiency Take 1 tablet (5,000 Units) by mouth Daily 90 tablet 1 10/11/2024 01/09/2025 Active Start: 04-20-2024 End: 05-20-2024 take 1 tablet by mouth once daily cholecalciferol (Vitamin D-3) 125 MCG (5000 UT) tablet Indications: Vitamin D deficiency Take 1 tablet (125 mcg) by mouth Daily 30 tablet 2 04/20/2024 05/20/2024 Active clopidogrel 75 mg oral tablet (20 sources) [id number] Platelet Inhibitor Start: 10-09-2019 End: 01-09-2025 take 1 tablet by mouth once daily clopidogrel (Plavix) 75 MG tablet Indications: Coronary atherosclerosis Take 1 tablet (75 mg) by mouth Daily 90 tablet 1 10/11/2024 01/09/2025 Active Continuous Glucose [employer] (FreeStyle Anny 2 [place]) device (20 sources) Start: 03-14-2024 End: 03-14-2025 Continuous Glucose [employer] (FreeStyle Anny 2 [place]) device Indications: Diabetes mellitus type 2, insulin dependent ([facility]) 1 each Daily 1 each 03/14/2024 03/14/2025 Active Start: 03-14-2024 End: 03-14-2025 Continuous Glucose [employer] (FreeStyle Anny 2 [place]) device Indications: Diabetes mellitus type 2, insulin dependent ([facility]/HCC) 1 each Daily 1 each 03/14/2024 03/14/2025 Active End: 03-14-2024 Continuous Glucose [employer] (FreeStyle Anny 2 [place]) device 1 each Daily 03/14/2024 Discontinued (Therapy completed) Continuous Glucose Sensor (FreeStyle Anny 2 Sensor) misc (20 sources) Start: 08-31-2024 Continuous Glu cose Sensor (FreeStyle Anny 2 Sensor) misc USE DIRECTED and change EVERY 14 days 08/31/2024 Active Start: 05-27-2024 End: 06-24-2024 Continuous Glucose Sensor (F reeStyle Anyn 2 Sensor) misc Indications: Type 2 diabetes mellitus without complication, with long-term current use of insulin 1 each by Other route Daily for 28 days USE DIRECTED and change EVERY 14 days 2 each 05/27/2024 06/24/2024 Active Start: 04-05-2024 Continuous Glu cose Sensor (FreeStyle Anny 2 Sensor) misc USE DIRECTED and change EVERY 14 days 04/05/2024 Active Start: 03-14-2024 End: 04-11-2024 Continuous Glucose Sensor (F reeStyle Anny 2 Sensor) misc Indications: Diabetes mellitus type 2, insulin dependent (CMS/HCC) 1 each Daily for 28 days 2 each 11 03/14/2024 04/11/2024 Active End: 03-14-2024 Continuous Glucose Sensor (F reeStyle Anny 2 Sensor[place] [facility] [place] Daily 03/14/2024 Discontinued (Therapy completed) dicyclomine hydrochloride 20 mg oral tablet (1 source) Anticholinergic Start: 05-22-2024 take 1 tablet by mouth four times daily dicyclomine 20 mg Tab 20 mg = 1 tab(s), Oral, QID, # 12 tab(s), Refills(s) 0, Pharmacy: [id number], 162.5, cm, 05/22/24 13:09:00 EDT, Height/Length Dosing, 110.6, kg, 05/22/24 13:09:00 EDT, Weight Dosing Start Date: 05/22/24 Status: Ordered Quantity: 12.0 Unit: tab(s) Repeat number: 1 empagliflozin 25 mg oral tablet (20 sources) Sodium-Glucose Cotransporter 2 Inhibitor Start: 01-02-2021 End: 01-09-2025 take 1 tablet by mouth once daily empagliflozin (Jardiance) 25 MG Indications: Diabetes mellitus type 2, insulin dependent (HCC) Take 1 tablet (25 mg) by mouth Daily 90 tablet 1 10/11/2024 01/09/2025 Active Erythromcyin Oph. Oint. 0.5% Ointment (1 source) Start: 06-07-2021 End: 06-14-2021 Erythromcyin Oph. Oint. 0.5% Ointment 0.5 in, OPTH, QID for 7 day(s), 3.5 gm, Refill(s) 0, [id number], 165, cm, 06/07/21 20:41:00 EDT, Height/Length Dosing, 121, kg, 06/07/21 20:41:00 EDT, Weight Dosing Start Date: 06/07/21 Stop Date: 06/14/21 Status: Ordered ezetimibe 10 mg oral tablet (20 sources) Dietary Cholesterol Absorption Inhibitor Start: 10-14-2023 End: 01-09-2025 take 1 tablet by mouth in the evening ezetimibe (Zetia) 10 MG tablet Indications: Mixed hyperlipidemia Take 1 tablet (10 mg) by mouth in the evening 90 tablet 10/11/2024 01/09/2025 Active Start: 03-17-2023 End: 06-15-2023 take 1 tablet by mouth in the evening ezetimibe (Zetia) 10 MG tablet Indications: Mixed hyperlipidemia (CMS/HCC) Take 1 tablet (10 mg) by mouth in the evening 90 tablet 1 03/17/2023 06/15/2023 Active famotidine 20 mg oral tablet (1 source) Histamine-2 Receptor Antagonist Start: 05-22-2024 take 1 tablet by mouth twice daily Pepcid 20 mg Tab 20 mg = 1 tab(s), Oral, BID, # 15 tab(s), Refills(s) 0, Pharmacy: [id number], 162.5, cm, 05/22/24 13:09:00 EDT, Height/Length Dosing, 110.6, kg, 05/22/24 13:09:00 EDT, Weight Dosing Start Date: 05/22/24 Status: Ordered Quantity: 15.0 Unit: tab(s) Repeat number: 1 fluconazole 150 mg oral tablet (20 sources) Azole Antifungal Start: 06-07-2024 fluconazole (Diflucan) 150 MG tablet Indications: Yeast infection One time dose, repeat in 3 days. Do not take atorvastatin cholesterol pill while taking the fluconazaole, once completed resume taking the atorvastatin 2 tablet 06/07/2024 Active Start: 12-03-2023 End: 04-19-2024 fluconazole (Diflucan) 150 M G tablet Indications: Yeast infection One time dose, repeat in 3 days. Do not take atorvastatin cholesterol pill while taking the fluconazaole, once completed resume taking the atorvastatin 2 tablet 06/07/2024 Active Glucose Blood ([employer] ULTRA TEST ) (20 sources) Glucose Blood ([employer] ULTRA TEST ) 1 each by Other route in the morning and 1 each before bedtime. Active hydrocortisone 25 mg/ml rectal cream (17 sources) Corticosteroid Start: 10-11-2024 hydrocortisone (Anusol-HC) 2.5 % rectal cream Indications: Hemorrhoids, unspecified hemorrhoid type Twice a day as needed to rectal area 30 g 10/11/2024 Active Start: 09-15-2024 End: 09-22-2024 hydrocortisone (Anusol-HC) 2 .5 % rectal cream Indications: Other hemorrhoids Insert into the rectum 4 (four) times a day as needed for hemorrhoids (rectal discomfort) for up to 7 days 30 g 09/15/2024 09/22/2024 Active Start: 07-21-2024 End: 07-28-2024 hydrocortisone (Anusol-HC) 2 .5 % rectal cream Indications: Other hemorrhoids Insert into the rectum in the morning and in the evening. Do all this for 7 days. Apply thin layer to affected rectal area twice a day. 30 g 07/21/2024 07/28/2024 Active Start: 06-30-2024 hydrocortisone (Anusol-HC) 25 MG suppository Insert 1 suppository (25 mg)rectally twice daily as needed for hemorrhoids for up to 5 days 06/30/2024 Active Start: 02-16-2024 End: 02-21-2024 hydrocortisone (Anusol-HC) 2 5 MG suppository Indications: Internal hemorrhoid Insert 1 suppository (25 mg) into the rectum 2 (two) times a day as needed for hemorrhoids for up to 5 days 10 suppository 02/16/2024 02/21/2024 Active hydrOXYzine hydrochloride 25 mg oral tablet (20 sources) Antihistamine take 1 tablet by mouth twice daily as needed hydrOXYzine HCl (Atarax) 25 MG tablet Take 25 mg by mouth 2 (two) times a day as needed Active ibuprofen 800 mg oral tablet (20 sources) Nonsteroidal Anti-inflammatory Drug Start: 10-06-19 take 1 tablet by mouth every six hours as needed ibuprofen 800 MG tablet Take 800 mg by mouth every 6 (six) hours if needed 10/06/2023 Active Start: 05-28-2023 End: 06-04-2023 take 1 tablet by mouth every eight hours ibuprofen 600 mg Tab 600 mg = 1 tab(s), Oral, q8hr, X 7 day(s), # 21 tab(s), Refills(s) 0, Pharmacy: [id number], 160, cm, 05/28/23 13:08:00 EDT, Height/Length Dosing, 115, kg, 05/28/23 13:08:00 EDT, Weight Dosing Start Date: 3/14/24 Stop Date: 06/04/23 Status: Ordered Start: 12-30-2020 take 1 tablet by addi th every six hours ibuprofen 600 mg Tab 600 mg = 1 tab(s), Oral, q6hr, # 40 tab(s), Refills(s) 0, Pharmacy: [id number], 162, cm, 12/30/20 16:50:00 EDT, Height/Length Dosing, 118, kg, 12/30/20 16:50:00 EDT, Weight Dosing Start Date: 12/30/20 Status: Ordered Start: 09-11-2019 take 1 tablet by addi th every eight hours ibuprofen (ADVIL,MOTRIN) 800 mg tablet Take 1 tablet (800 mg total) by mouth every 8 (eight) hours. 30 tablet 09/11/2019 Active 3 ml insulin glargine 100 unt/ml pen injector (20 sources) Insulin Analog Start: 10-14-2023 End: 01-09-2025 inject 10 [IU] by subcutaneous injection at bedtime insulin glargine (Lantus SoloStar) 100 UNIT/ML pen Indications: Type 2 diabetes mellitus without complications (HCC) Inject 10 Units under the skin at bedtime 9 mL 1 10/11/2024 01/09/2025 Active Start: 01-02-2021 Lantus Solosta r Pen 100 units/mL subcutaneous solution Refills(s) 0 Start Date: 01/02/21 Status: Ordered Start: 01-02-2021 Lantus Solosta r Pen 100 units/mL subcutaneous solution Refills(s) 0 Start Date: 01/02/21 Status: Ordered insulin glargine (LANTUS) 100 unit/mL injection Inject 0.15 mL (15 Units total) under the skin. Active inject 10 [IU] by meehan bcutaneous injection at bedtime insulin glargine (Lantus) 100 UNIT/ML injection Inject 10 Units under the skin at bedtime. 8:00PM 0 Active isopropyl alcohol 0.7 ml/ml medicated pad (20 sources) Start: 11-29-2023 End: 03-14-2024 Alcohol Swabs (B-D SINGLE US E SWABS REGULAR) pads Indications: Type 2 diabetes mellitus without complications (CMS/HCC) 1 each by Other route in the morning and 1 each before bedtime. 200 each 4 11/29/2023 03/14/2024 Active Start: 09-22-2023 End: 12-31-2023 UltiCare Alcohol Swabs 70 % pads Indications: Type 2 diabetes mellitus without complications (CMS/HCC) Apply 1 each topically in the morning and 1 each before bedtime. 200 each 4 09/22/2023 11/29/2023 Discontinued Alcohol Swabs pa ds 24 hr isosorbide mononitrate 30 mg extended release oral tablet (19 sources) Nitrate Vasodilator Start: 10-10-2021 take 1 tablet by mouth once daily in the morning isosorbide mononitrate 30 mg ER Tab 30 mg = 1 tab(s), Oral, qAM, # 60 tab(s), Refills(s) 0, Pharmacy: [id number], 163, cm, 10/09/21 14:18:00 EDT, Height/Length Dosing, 118, kg, 10/09/21 14:18:00 EDT, Weight Dosing Start Date: 10/10/21 Status: Ordered take 1 tablet by addi th once daily, then take 1 tablet by mouth every twenty-four hours isosorbide mononitrate (IMDUR) 60 mg 24 hr tablet Take 60 mg by mouth daily. Active lamoTRIgine 200 mg oral tablet (20 sources) Mood Stabilizer, Anti-epileptic Agent Start: 09-05-2023 take 1 tablet by mouth once daily lamoTRIgine (LaMICtal) 200 MG tablet Take 1 tablet by mouth Daily 09/05/2023 Active take 10 mg by mouth in the morni ng lamoTRIgine (LaMICtal) 25 MG tablet Take 10 mg by mouth in the morning. 0 Active Lidocaine (2 sources) Antiarrhythmic, Amide Local Anesthetic Start: 02-22-2021 RectiCare 5% topical cream See Instructions, 5 packet(s), Refill(s) 0, samples given to patient (Rx), Topical Start Date: 02/22/21 Status: Ordered losartan potassium 25 mg oral tablet (20 sources) Angiotensin 2 Receptor Elian Start: 08-20-2018 End: 01-09-2025 take 1 tablet by mouth in the morning losartan (Cozaar) 25 MG tablet Indications: Type 2 diabetes mellitus without complications (HCC) Take 1 tablet (25 mg) by mouth in the morning. 90 tablet 10/11/2024 01/09/2025 Active 24 hr metFORMIN hydrochloride 500 mg extended release oral tablet (20 sources) Biguanide Start: 10-14-2023 End: 06-12-2024 take 2 tablets by mouth every twenty-four hours in the morning metFORMIN XR (Glucophage-XR) 500 MG 24 hr tablet Indications: Type 2 diabetes mellitus with diabetic neuropathy, unspecified (HCC) Take 2 tablets (1,000 mg) by mouth in the morning and 2 tablets (1,000 mg) in the evening. Take before meals. 360 tablet 1 03/14/2024 Active Start: 01-02-2021 MetFORMIN (Eqv -Glucophage XR) 500 mg oral tablet, extended release 1,000 mg = 2 tab(s), Oral, BID, Refills(s) 0 Start Date: 01/02/21 Status: Ordered Repeat number: 1 take 1 tablet by addi th every twenty-four hours in the morning, then take 1 tablet by mouth at mealtime metFORMIN (GLUMETZA) 1000 MG (MOD) 24 hr tablet Take 1 tablet (1,000 mg total) by mouth in the morning and 1 tablet (1,000 mg total) in the evening. Take with meals. Active take 1 tablet by addi th in the morning metFORMIN (Glucophage) 500 MG tablet Take 500 mg by mouth in the morning and 500 mg in the evening. Take with meals. 0 Active metoprolol tartrate 25 mg oral tablet (20 sources) beta-Adrenergic Elian Start: 10-14-2023 End: 01-09-2025 take 1 tablet by mouth in the morning metoprolol tartrate (Lopressor) 25 MG tablet Indications: Atherosclerotic heart disease of [place] coronary artery without angina pectoris , Coronary atherosclerosis Take 1 tablet (25 mg) by mouth in the morning and 1 tablet (25 mg) before bedtime. 180 tablet 10/11/2024 01/09/2025 Active Start: 10-09-2023 End: 10-10-2023 Metoprolol tartrate 25 mg Ta b 25 mg = 1 tab(s), Tab, Oral, Start date 10/10/23 9:00:00 AM EDT, 10/08/23 18:46:00 EDT Start Date: 10/10/23 Stop Date: 10/10/23 Status: Completed Start: 10-10-2021 End: 10-10-2021 Metoprolol tartrate 25 mg Ta b 25 mg = 1 tab(s), Tab, Oral, Start date 10/10/21 9:00:00 EDT, 10/09/21 17:14:00 EDT Start Date: 10/10/21 Stop Date: 10/10/21 Status: Completed Start: 01-02-2021 End: 10-09-2021 take 1 tablet by mouth twice daily Metoprolol tartrate 25 mg Tab 25 mg = 1 tab(s), Oral, BID, Refills(s) 0 Start Date: 01/02/21 Status: Ordered Repeat number: 1 take 0.5 tablet by m outh in the morning metoprolol tartrate (LOPRESSOR) 50 mg tablet Take 0.5 tablets (25 mg total) by mouth in the morning. Active Mounjaro 10 MG/0.5ML solution pen-injector (1 source) Start: 03-30-2023 inject 10 mg by subcutaneous injection every week Mounjaro 10 MG/0.5ML solution pen-injector INJECT 10 MG UNDER THE SKIN 1 (ONE) TIME PER WEEK FOR 28 DAYS 0 03/30/2023 Active mupirocin 20 mg/ml topical cream (10 sources) RNA Synthetase Inhibitor Antibacterial Start: 10-29-2023 mupirocin Top 2% Crm 1 anna, Topical, TID, 15 gram, Refill(s) 0, [id number], 162.5, cm, 10/29/23 21:55:00 EDT, Height/Length Dosing, 104, kg, 10/29/23 21:55:00 EDT, Weight Dosing Start Date: 10/29/23 Status: Ordered Quantity: 15.0 Unit: g Repeat number: 1 naproxen 500 mg oral tablet (20 sources) Nonsteroidal Anti-inflammatory Drug Start: 12-27-2021 End: 10-13-2023 take 1 tablet by mouth twice daily as needed for pain Naprosyn 500 mg Tab 500 mg = 1 tab(s), Oral, BID, PRN for pain, # 20 tab(s), Refills(s) 0, Pharmacy: [id number], 160, cm, 10/10/23 22:52:00 EDT, Height/Length Dosing, 117.9, kg, 10/10/23 23:03:00 EDT, Weight Dosing Start Date: 10/11/23 Status: Ordered Quantity: 20.0 Unit: tab(s) Repeat number: 1 Start: 12-28-2020 take 1 tablet by addi th twice daily as needed for pain naproxen 500 mg Tab 500 mg = 1 tab(s), Oral, BID, PRN for pain, # 20 tab(s), Refills(s) 0, Pharmacy: [facility]/pharmacy #[id number], 162, cm, 12/28/20 0:14:00 EDT, Height/Length Dosing, 132.4, kg, 12/28/20 0:14:00 EDT, Weight Dosing Start Date: 12/28/20 Status: Ordered nitrofurantoin, macrocrystals 25 mg / nitrofurantoin, monohydrate 75 mg oral capsule (2 sources) Nitrofuran Antibacterial Start: 10-08-2023 End: 10-18-2023 take 1 capsule by mouth twice daily nitrofurantoin macrocrystals-monohydrate 100 mg Cap 100 mg = 1 cap(s), Oral, BID, X 10 day(s), # 20 cap(s), Refills(s) 0 Start Date: 10/08/23 Stop Date: 10/18/23 Status: Ordered nitroglycerin 0.004 mg/mg rectal ointment (20 sources) Nitrate Vasodilator Start: 02-21-2021 apply 30 g rectal route every twelve hours nitroglycerin 0.4% rectal ointment See Instructions, 30 gm, Refill(s) 0, Rectal q12hr, [facility]/pharmacy #[id number], 162, cm, 02/21/21 12:40:00 EST, Height/Length Dosing, 128.3, kg, 02/21/21 12:40:00 EST, Weight Dosing Start Date: 02/21/21 Status: Ordered Quantity: 30.0 Unit: g Repeat number: 1 Start: 02-21-2021 apply 30 g rectal ro [place] every twelve hours nitroglycerin 0.4% rectal ointment See Instructions, 30 gm, Refill(s) 0, Rectal q12hr, [facility]/pharmacy #[id number], 162, cm, 02/21/21 12:40:00 EST, Height/Length Dosing, 128.3, kg, 02/21/21 12:40:00 EST, Weight Dosing Start Date: 02/21/21 Status: Ordered omeprazole 20 mg delayed release oral capsule (20 sources) Proton Pump Inhibitor Start: 10-14-2023 End: 01-09-2025 take 1 capsule by mouth before mealtime omeprazole (PriLOSEC) [address] capsule Indications: Gastro-esophageal reflux disease without esophagitis Take 1 capsule (20 mg) by mouth in the morning. Take before meals. 90 capsule 1 10/11/2024 01/09/2025 Active Start: 04-27-2023 End: 07-26-2023 take 1 capsule by mouth in the morning omeprazole (PriLOSEC) [address] capsule Indications: Gastro-esophageal reflux disease without esophagitis Take 1 capsule (20 mg) by mouth in the morning. 90 capsule 1 04/27/2023 07/26/2023 Active take 1 tablet by addi th in the morning omeprazole (PriLOSEC OTC) 20 mg EC tablet Take 1 tablet (20 mg total) by mouth in the morning. Active omeprazole 20 mg Cap-DR (2 sources) Start: 01-02-2021 take 1 capsule by mouth once daily omeprazole 20 mg Cap-DR 20 mg = 1 cap(s), Oral, Daily Start Date: 01/02/21 Status: Ordered ondansetron 4 mg disintegrating oral tablet (20 sources) Serotonin-3 Receptor Antagonist Start: 07-18-2024 End: 10-21-2024 take 1 tablet by mouth every eight hours for nausea ondansetron ODT (Zofran-ODT) 4 MG disintegrating tablet Indications: Gastro-esophageal reflux disease without esophagitis Take 1 tablet (4 mg) by mouth every 8 (eight) hours if needed for nausea or vomiting for up to 10 days 30 tablet 10/11/2024 10/21/2024 Active Start: 11-27-2023 End: 12-12-2023 take 1 tablet by mouth once ondansetron (Zofran) 4 MG tablet Indications: Nausea Take 1 tablet (4 mg) by mouth every 12 (twelve) hours if needed for nausea or vomiting for up to 15 days 30 tablet 1 11/27/2023 12/12/2023 Active Start: 10-03-2023 take 1 tablet by addi th every six hours ondansetron 4 mg Dis Tab 4 mg = 1 tab(s), Oral, q6hr, # 12 tab(s), Refills(s) 0, Pharmacy: [facility]/pharmacy #[id number], 160, cm, 10/02/23 21:46:00 EDT, Height/Length Dosing, 106.2, kg, 10/02/23 21:46:00 EDT, Weight Dosing Start Date: 10/03/23 Status: Ordered Start: 11-25-2020 End: 11-26-2023 take 1 tablet by mouth every eight hours as needed for nausea Zofran 4 mg Tab 4 mg = 1 tab(s), Oral, q8hr, PRN Nausea/Vomiting, # 12 tab(s), Refills(s) 0, Pharmacy: [facility]/pharmacy #[id number], 162, cm, 12/27/21 2:03:00 EDT, Height/Length Dosing, 118, kg, 12/27/21 2:03:00 EDT, Weight Dosing Start Date: 12/27/21 Status: Ordered Start: 10-11-2019 take 1 tablet by addi th every eight hours as needed for nausea and vomiting ondansetron ODT (ZOFRAN-ODT) 4 mg disintegrating tablet Dissolve 1 tablet (4 mg total) on tongue every 8 (eight) hours as needed for nausea or vomiting. 20 tablet 10/11/2019 Active oxyCODONE hydrochloride 5 mg oral tablet (4 sources) Opioid Agonist Start: 12-28-2020 oxyCODONE 5 mg Cap 5 mg = 1 cap(s), Oral, q6hr, PRN Pain 8-10, # 3 cap(s), Refills(s) 0, Pharmacy: [facility]/pharmacy #[id number], 162, cm, 12/28/20 0:14:00 EDT, Height/Length Dosing, 132.4, kg, 12/28/20 0:14:00 EDT, Weight Dosing Start Date: 12/28/20 Status: Ordered Start: 09-18-2019 take 5 mg by mouth e very four to six hours Oxycodone Active 5 MG PO EVERY 4-6 HOURS 10 October 11, 2023 phenazopyridine hydrochloride 100 mg oral tablet (1 source) Start: 07-30-2023 End: 08-02-2023 take 1 tablet by mouth three times daily Pyridium 100 mg Tab 100 mg = 1 tab(s), Oral, TID, X 3 day(s), # 9 tab(s), Refills(s) 0, Pharmacy: [facility]/pharmacy #[id number], 160, cm, 07/29/23 21:34:00 EDT, Height/Length Dosing, 119, kg, 07/29/23 21:34:00 EDT, Weight Dosing Start Date: 07/30/23 Stop Date: 08/02/23 Status: Ordered promethazine hydrochloride 25 mg rectal suppository (20 sources) Phenothiazine Start: 07-18-2024 take 25 mg rectal route every six hours as needed for nausea and vomiting Promethegan 25 MG suppository Insert 25 mg into the rectum every 6 (six) hours if needed for nausea or vomiting 07/18/2024 Active Start: 07-18-2024 Phenergan 25 m g Supp 25 mg = 1 supp, Rectal, q6hr, PRN as needed for nausea, Insert one per rectum every six hours as needed for nausea and vomiting, # 10 EA, Refills(s) 0, Pharmacy: [id number], 160, cm, 07/18/24 13:16:00 EDT, Height/Length Dosing, 106.8, kg, 07/18/24 13:16:00 EDT, Weight Dosing Start Date: 07/18/24 Status: Ordered Quantity: 10.0 Unit: EA Repeat number: 1 Start: 07-08-2024 End: 07-13-2024 take 1 tablet by mouth every eight hours as needed for nausea and vomiting and nausea and nausea promethazine (Phenergan) 25 MG tablet Indications: Nausea Take 1 tablet (25 mg) by mouth every 8 (eight) hours if needed for nausea or vomiting for up to 5 days 15 tablet 07/08/2024 07/13/2024 Active Start: 06-22-2024 End: 06-27-2024 take 1 tablet by mouth every eight hours as needed for nausea and vomiting and nausea and nausea promethazine (Phenergan) 25 MG tablet Indications: Nausea Take 1 tablet (25 mg) by mouth every 8 (eight) hours if needed for nausea or vomiting for up to 5 days 15 tablet 06/22/2024 06/27/2024 Active Start: 05-22-2024 Phenergan 25 m g Supp 25 mg = 1 supp, Rectal, q6hr, PRN as needed for nausea, Insert one per rectum every six hours as needed for nausea and vomiting, # 6 EA, Refills(s) 0, Pharmacy: [facility] #[id number], 162.5, cm, 05/22/24 13:09:00 EDT, Height/Length Dosing, 110.6, kg, 05/22/24 13:09:00 EDT, Weight Dosing Start Date: 05/22/24 Status: Ordered Quantity: 6.0 Unit: EA Repeat number: 1 Start: 03-28-2024 End: 04-02-2024 take 1 tablet by mouth every eight hours as needed for nausea and vomiting and nausea and nausea promethazine (Phenergan) 25 MG tablet Indications: Nausea Take 1 tablet (25 mg) by mouth every 8 (eight) hours if needed for nausea or vomiting for up to 5 days 15 tablet 03/28/2024 04/02/2024 Active Start: 01-18-2024 End: 01-28-2024 take 1 tablet by mouth every eight hours as needed for vomiting and nausea and nausea and nausea promethazine (Phenergan) 25 MG tablet Indications: Nausea Take 1 tablet (25 mg) by mouth every 8 (eight) hours if needed for vomiting or nausea for up to 10 days 30 tablet 01/18/2024 01/28/2024 Active Start: 12-12-2023 End: 01-15-2024 take 1 tablet by mouth every eight hours as needed for vomiting and nausea promethazine (Phenergan) 25 MG tablet Take 25 mg by mouth every 8 (eight) hours if needed for vomiting or nausea 12/12/2023 01/15/2024 Discontinued (Reorder) Start: 12-03-2023 End: 12-08-2023 take 1 tablet by mouth every eight hours for nausea promethazine (Phenergan) 25 MG tablet Indications: Nausea and Vomiting Take 1 tablet (25 mg) by mouth every 8 (eight) hours if needed for nausea or vomiting for up to 5 days 15 tablet 1 12/03/2023 12/08/2023 Active Start: 09-25-2023 End: 09-28-2023 take 1 tablet by mouth every four hours promethazine 25 mg Tab 25 mg = 1 tab(s), Oral, q4hr, X 3 day(s), # 18 tab(s), Refills(s) 0, [id number], cm, 09/25/23 6:39:00 EDT, Height/Length Dosing, 105.7, kg, 09/25/23 6:39:00 EDT, Weight Dosing Start Date: 09/25/23 Stop Date: 09/28/23 Status: Ordered 12 hr ranolazine 500 mg extended release oral tablet (18 sources) Anti-anginal Start: 10-10-2021 take 1 tablet by mouth twice daily Ranexa 500 mg Tab-ER 500 mg = 1 tab(s), Oral, BID, # 60 tab(s), Refills(s) 1, [id number], cm, 10/09/21 14:18:00 EDT, Height/Length Dosing, 118, kg, 10/09/21 14:18:00 EDT, Weight Dosing Start Date: 10/10/21 Status: Ordered Ozempic (18 sources) Start: 10-09-2021 Ozempic Refill(s) 0 Start Date: 10/09/21 Status: Ordered tamsulosin hydrochloride 0.4 mg oral capsule (17 sources) alpha-Adrenergic Elian Start: 10-25-2022 take 1 capsule by mouth once daily Flomax 0.4 mg Cap 0.4 mg = 1 cap(s), Oral, Daily, # 10 cap(s), Refills(s) 0, [id number], cm, 05/28/23 13:08:00 EDT, Height/Length Dosing, 115, kg, 05/28/23 13:08:00 EDT, Weight Dosing Start Date: 05/28/23 Status: Ordered tirzepatide (MOUNJARO) 10 mg/0.5 mL pen injector (1 source) tirzepatide (MOUNJARO) 10 mg/0.5 mL pen injector Inject 10 mg under the skin every 7 days. Active Tirzepatide (Mounjaro) 12.5 MG/0.5ML solution auto-injector (20 sources) Start: 10-11-2024 End: 11-10-2024 Tirzepatide (Mounjaro) 12.5 MG/0.5ML solution auto-injector Indications: Type 2 diabetes mellitus without complication, with long-term current use of insulin (HCC) Inject 12.5 mg under the skin every 7 (seven) days 2 mL 1 10/11/2024 11/10/2024 Active Start: 09-18-2024 End: 10-11-2024 Tirzepatide (Mounjaro) 12.5 MG/0.5ML solution auto-injector Indications: Type 2 diabetes mellitus without complication, with long-term current use of insulin (HCC) Inject 12.5 mg under the skin every 7 (seven) days 2 mL 1 09/18/2024 10/11/2024 Discontinued (Reorder) Start: 09-18-2024 End: 10-18-2024 Tirzepatide (Mounjaro) 12.5 MG/0.5ML solution auto-injector Indications: Type 2 diabetes mellitus without complication, with long-term current use of insulin (HCC) Inject 12.5 mg under the skin every 7 (seven) days 2 mL 1 09/18/2024 10/18/2024 Active Start: 06-28-2024 End: 09-18-2024 Tirzepatide (Mounjaro) 12.5 MG/0.5ML solution auto-injector Indications: Type 2 diabetes mellitus without complication, with long-term current use of insulin (HCC) Inject 12.5 mg under the skin every 7 (seven) days 2 mL 2 06/28/2024 09/18/2024 Discontinued Start: 06-28-2024 End: 09-20-2024 Tirzepatide (Mounjaro) 12.5 MG/0.5ML solution auto-injector Indications: Type 2 diabetes mellitus without complication, with long-term current use of insulin (HCC) Inject 12.5 mg under the skin every 7 (seven) days 2 mL 2 06/28/2024 09/20/2024 Active Start: 06-28-2024 End: 09-20-2024 Tirzepatide (Mounjaro) 12.5 MG/0.5ML solution auto-injector Indications: Type 2 diabetes mellitus without complication, with long-term current use of insulin Inject 12.5 mg under the skin every 7 (seven) days 2 mL 2 06/28/2024 09/20/2024 Active Tirzepatide (Mounjaro) 12.5 MG/0.5ML solution pen-injector (6 sources) Start: 12-03-2023 End: 12-31-2023 Tirzepatide (Mounjaro) 12.5 MG/0.5ML solution pen-injector Indications: Type 2 Diabetes Mellitus Inject 12.5 mg under the skin every 7 (seven) days for 28 days 2 mL 5 12/03/2023 12/31/2023 Active End: 12-03-2023 Tirzepatide (Mounjaro) 12.5 MG/0.5ML solution pen-injector Indications: Type 2 Diabetes Mellitus Inject 12.5 mg under the skin every 7 (seven) days 12/03/2023 Discontinued (Reorder) traZODone hydrochloride 50 mg oral tablet (20 sources) Serotonin Reuptake Inhibitor Start: 02-19-2023 traZODone (Desyrel) 50 MG tablet TAKE 1 OR 2 TABLETS AT BEDTIME NEEDED 02/19/2023 Active venlafaxine 50 mg oral tablet (20 sources) Serotonin and Norepinephrine Reuptake Inhibitor Start: 04-12-2024 take 1 tablet by mouth once daily venlafaxine (Effexor) 50 MG tablet Take 50 mg by mouth Daily 04/12/2024 Active Start: 10-08-2023 take 1 capsule by [facility] once daily Effexor XR 150 mg Cap-ER 150 mg = 1 cap(s), Oral, Daily, # 30 cap(s), Refills(s) 0 Start Date: 10/08/23 Status: Ordered Quantity: 30.0 Unit: cap(s) Repeat number: 1 Start: 03-05-2023 venlafaxine (E ffexor) 100 MG tablet TAKE 1 TABLET BY MOUTH EVERY DAY IN THE EVENING WITH FOOD ORALLY ONCE A DAY 30 DAY(S) 03/05/2023 Active Start: 03-02-2023 End: 03-14-2024 take 1 tablet by mouth once daily at mealtime venlafaxine (Effexor) 50 MG tablet TAKE 1 TABLET BY MOUTH EVERY DAY IN THE EVENING WITH FOOD 03/02/2023 03/14/2024 Discontinued (Therapy completed) Start: 01-02-2021 Effexor XR 150 mg Cap-ER 150 mg = 1 cap(s), Oral, Daily, along with 75 mg cap, Refills(s) 0 Start Date: 01/02/21 Status: Ordered Start: 01-02-2021 take 1 capsule by mo ut once daily Effexor XR 75 mg Cap-ER 75 mg = 1 cap(s), Oral, Daily, Refills(s) 0 Start Date: 01/02/21 Status: Ordered Start: 01-02-2021 Effexor XR 150 mg Cap-ER 150 mg = 1 cap(s), Oral, Daily, along with 75 mg cap, Refills(s) 0 Start Date: 01/02/21 Status: Ordered Start: 01-02-2021 take 1 capsule by [facility] once daily Effexor XR 75 mg Cap-ER 75 mg = 1 cap(s), Oral, Daily, Refills(s) 0 Start Date: 01/02/21 Status: Ordered Vitamin B Complex oral tablet (1 source) Start: 10-17-2024 take 1 tablet by mouth once daily Vitamin B Complex oral tablet Oral, Daily, Refill(s) 0 Start Date: 10/17/24 Status: Ordered Repeat number: 1 vitamin b12 1 mg oral tablet (5 sources) Vitamin B12 Start: 10-03-2024 End: 11-02-2024 take 1 tablet by mouth once daily cyanocobalamin (Vitamin B-12) 1000 MCG tablet Indications: Vitamin B12 deficiency Take 1 tablet (1,000 mcg) by mouth Daily 30 tablet 2 10/03/2024 11/02/2024 Active Vitamin D3 5000 intl units (125 mcg) oral tab (1 source) Start: 10-17-2024 Vitamin D3 500 0 intl units (125 mcg) oral tab 125 mcg = 1 tab(s), Refills(s) 0 Start Date: 10/17/24 Status: Ordered Repeat number: 1 Zofran ODT 4 mg Tab-Dis (20 sources) Start: 07-18-2024 take 1 tablet by mouth every eight hours as needed for nausea Zofran ODT 4 mg Tab-Dis 4 mg = 1 tab(s), Oral, q8hr, PRN Nausea/Vomiting, # 20 tab(s), Refills(s) 0, Pharmacy: [id number], 160, cm, 07/18/24 13:16:00 EDT, Height/Length Dosing, 106.8, kg, 07/18/24 13:16:00 EDT, Weight Dosing Start Date: 07/18/24 Status: Ordered Quantity: 20.0 Unit: tab(s) Repeat number: 1 Start: 05-22-2024 take 1 tablet by addi th every eight hours Zofran ODT 4 mg Tab-Dis 4 mg = 1 tab(s), Oral, q8hr, # 10 tab(s), Refills(s) 0, Pharmacy: [facility], 162.5, cm, 05/22/24 13:09:00 EDT, Height/Length Dosing, 110.6, kg, 05/22/24 13:09:00 EDT, Weight Dosing Start Date: 05/22/24 Status: Ordered Quantity: 10.0 Unit: tab(s) Repeat number: 1 Start: 07-30-2023 take 1 tablet by addi th every eight hours Zofran ODT 4 mg Tab-Dis 4 mg = 1 tab(s), Oral, q8hr, # 12 tab(s), Refills(s) 0, Pharmacy: [facility]/pharmacy #[id number], 160, cm, 07/29/23 21:34:00 EDT, Height/Length Dosing, 119, kg, 07/29/23 21:34:00 EDT, Weight Dosing Start Date: 07/30/23 Status: Ordered Start: 10-25-2022 take 1 tablet by addi every eight hours as needed for nausea Zofran ODT 4 mg Tab-Dis 4 mg = 1 tab(s), Oral, q8hr, PRN Nausea/Vomiting, # 12 tab(s), Refills(s) 0, Pharmacy: [facility]/pharmacy #[id number], 160, cm, 10/25/22 9:40:00 EDT, Height/Length Dosing, 115, kg, 10/25/22 9:40:00 EDT, Weight Dosing Start Date: 10/25/22 Status: Ordered Quantity: 12.0 Unit: tab(s) Repeat number: 1 Start: 10-25-2022 take 1 tablet by addi th every eight hours as needed for nausea Zofran ODT 4 mg Tab-Dis 4 mg = 1 tab(s), Oral, q8hr, PRN Nausea/Vomiting, # 12 tab(s), Refills(s) 0, Pharmacy: [facility]/pharmacy #[id number], 160, cm, 10/25/22 9:40:00 EDT, Height/Length Dosing, 115, kg, 10/25/22 9:40:00 EDT, Weight Dosing Start Date: 10/25/22 Status: Ordered Completed/Discontinued Medications Medication Drug Class(es) Dates Sig (Normalized) Sig (Original) [id number] 200 actuat albuterol 0.09 mg/actuat metered dose inhaler (20 sources) beta2-Adrenergic Agonist Start: 09-01-2024 End: 11-18-2024 take 2 puff(s) by inhalation every six hours for wheezing albuterol HFA 90 mcg/act inhaler Indications: Wheezing Inhale 2 puffs every 6 (six) hours if needed for wheezing 8.5 g 09/29/2024 10/19/2024 Discontinued (Reorder) Start: 07-19-2024 End: 08-18-2024 take 2 puff(s) by inhalation every six hours for wheezing albuterol HFA 90 mcg/act inhaler Indications: Wheezing Inhale 2 puffs every 6 (six) hours if needed for wheezing 8.5 g 07/19/2024 08/18/2024 Active Start: 06-07-2024 End: 07-07-2024 take 2 puff(s) by inhalation every six hours for wheezing albuterol HFA 90 mcg/act inhaler Indications: Wheezing Inhale 2 puffs every 6 (six) hours if needed for wheezing 8.5 g 06/07/2024 Active Start: 11-27-2023 End: 05-31-2024 take 2 puff(s) by inhalation every six hours for wheezing albuterol HFA 90 mcg/act inhaler Indications: Wheezing Inhale 2 puffs every 6 (six) hours if needed for wheezing 8.5 g 05/01/2024 05/31/2024 Active Start: 04-08-2023 End: 05-08-2023 take 2 puff(s) by inhalation every six hours for wheezing albuterol HFA 90 mcg/act inhaler Indications: Wheezing Inhale 2 puffs every 6 (six) hours if needed for wheezing 18 g 1 04/08/2023 05/08/2023 Active albuterol HFA 90 mcg/inh MDI (20 sources) Start: 11-25-2020 take 1 dose by inhalation four times daily albuterol HFA 90 mcg/inh MDI 2 puff(s), Inhalation, QID for wheezing, 1 EA, Refill(s) 0, [facility] #[id number], 163, cm, 11/25/20 12:15:00 EDT, Height/Length Dosing, 127, kg, 11/25/20 12:15:00 EDT, Weight Dosing Start Date: 11/25/20 Status: Ordered Quantity: 1.0 Unit: EA Repeat number: 1 Start: 11-25-2020 take 1 dose by inhal ation four times daily albuterol HFA 90 mcg/inh MDI 2 puff(s), Inhalation, QID for wheezing, 1 EA, Refill(s) 0, [facility] #[id number], 163, cm, 11/25/20 12:15:00 EDT, Height/Length Dosing, 127, kg, 11/25/20 12:15:00 EDT, Weight Dosing Start Date: 11/25/20 Status: Ordered bacitracin zinc 0.5 unt/mg topical ointment (20 sources) End: 03-14-2024 bacitracin 500 UNIT/GM ointment Apply topically 2 (two) times a day. 03/14/2024 Discontinued (Therapy completed) clindamycin 300 mg oral capsule (20 sources) Lincosamide Antibacterial Start: 10-02-2023 End: 03-14-2024 clindamycin (Cleocin) 300 MG capsule Take 300 mg by mouth in the morning and 300 mg at noon and 300 mg in the evening and 300 mg before bedtime. 10/02/2023 03/14/2024 Discontinued (Therapy completed) Continuous Glucose [employer] (FreeStyle Anny 3 [place]) device (7 sources) Start: 02-10-2024 End: 03-14-2024 Continuous Glucose [employer] (FreeStyle Anny 3 [place]) device Indications: Diabetes mellitus type 2, insulin dependent (CMS/HCC) 1 each Daily 1 each 02/10/2024 03/14/2024 Discontinued (Cost of medication) Start: 02-10-2024 End: 02-09-2025 Continuous Glucose [employer] (FreeStyle Anny 3 [place]) device Indications: Diabetes mellitus type 2, insulin dependent (CMS/HCC) 1 each Daily 1 each 02/10/2024 02/09/2025 Active End: 02-10-2024 Continuous Glucose [employer] (FreeStyle Anny 3 [place]) device 1 each Daily 02/10/2024 Discontinued (Reorder) Continuous Glucose S[place]FreeStyle Anny 3 [place] [facility] [place] Start: 03-14-2024 End: 03-14-2024 Continuous Glucose Sensor [place]FreeStyle Anny 3 Sensor[place] [facility]: Diabetes mellitus type 2, insulin dependent (CMS/HCC) 1 each Daily for 28 days 2 each 03/14/2024 03/14/2024 Discontinued (Cost of medication) Start: 03-14-2024 End: 04-11-2024 Continuous Glucose Sensor (F reeStyle Anny 3 Sensor[place] [facility] [facility] [place]: Diabetes mellitus type 2, insulin dependent (CMS/HCC) 1 each Daily for 28 days 2 each 03/14/2024 04/11/2024 Active Start: 02-10-2024 End: 03-14-2024 Continuous Glucose Sensor (F reeStyle Anny 3 Sensor[place] [facility]: Diabetes mellitus type 2, insulin dependent (CMS/HCC) 1 each Daily 2 each 02/10/2024 03/14/2024 Discontinued (Reorder) Start: 02-10-2024 End: 03-11-2024 Continuous Glucose Sensor (F reeStyle Anny 3 Sensor[place] [facility] [facility] [place]: Diabetes mellitus type 2, insulin dependent (CMS/HCC) 1 each Daily 2 each 02/10/2024 03/11/2024 Active End: 02-10-2024 Continuous Glucose Sensor (F reeStyle Anny 3 Sensor[place] [facility] [place] Daily 02/10/2024 Discontinued (Reorder) gabapentin 800 mg oral tablet (20 sources) Anti-epileptic Agent Start: 09-01-2024 End: 11-18-2024 take 1 tablet by mouth in the morning, then take 1 tablet by mouth in the evening, then take 1 tablet by mouth at bedtime gabapentin (Neurontin) 800 MG tablet Indications: Type 2 diabetes mellitus with diabetic polyneuropathy, with long-term current use of insulin (HCC) Take 1 tablet (800 mg) by mouth in the morning and 1 tablet (800 mg) in the evening and 1 tablet (800 mg) before bedtime. 90 tablet 09/18/2024 10/19/2024 Discontinued (Reorder) Start: 06-07-2024 End: 07-07-2024 take 1 tablet by mouth in the morning, then take 1 tablet by mouth in the evening, then take 1 tablet by mouth at bedtime gabapentin (Neurontin) 800 MG tablet Indications: Type 2 diabetes mellitus with diabetic polyneuropathy, with long-term current use of insulin (CMS/HCC) Take 1 tablet (800 mg) by mouth in the morning and 1 tablet (800 mg) in the evening and 1 tablet (800 mg) before bedtime. 90 tablet 2 06/07/2024 Active Start: 03-14-2024 End: 04-13-2024 take 1 tablet by mouth in the morning, then take 1 tablet by mouth in the evening, then take 1 tablet by mouth at bedtime gabapentin (Neurontin) 800 MG tablet Indications: Type 2 diabetes mellitus with diabetic polyneuropathy, with long-term current use of insulin (CMS/HCC) Take 1 tablet (800 mg) by mouth in the morning and 1 tablet (800 mg) in the evening and 1 tablet (800 mg) before bedtime. 90 tablet 2 03/14/2024 Active Start: 02-08-2024 End: 03-14-2024 take 1 tablet by mouth in the [...] tablet (600 mg) before bedtime. 90 tablet 2 02/08/2024 03/14/2024 Discontinued (Ineffective) Start: 10-14-2023 End: 02-08-2024 take 1 tablet by mouth in the morning, then take 1 tablet by mouth in the evening, then take 1 tablet by mouth at bedtime gabapentin (Neurontin) 800 MG tablet Indications: Type 2 diabetes mellitus with diabetic polyneuropathy, with long-term current use of insulin (CMS/HCC) Take 1 tablet (800 mg) by mouth in the morning and 1 tablet (800 mg) in the evening and 1 tablet (800 mg) before bedtime. 90 tablet 5 12/30/2023 02/08/2024 Discontinued (Therapy completed) Start: 03-30-2023 End: 04-29-2023 take 1 tablet [...] Active Start: 12-19-2018 take 1 capsule by [facility] three times daily gabapentin 300 mg Cap 300 mg = 1 cap(s), Oral, TID Start Date: 12/19/18 Status: Ordered Repeat number: 1 gabapentin (NEUR ONTIN) 300 mg capsule Take 400 mg by mouth 3 (three) times a day. Active Insulin Lispro (4 sources) Insulin Analog Start: 10-08-2023 End: 10-08-2023 Insulin Lispro Sliding Scale 0-10 unit(s), Injection-Insulin, SubCutaneous, Start date 10/08/23 9:00:00 PM EDT Start Date: 10/08/23 Stop Date: 10/08/23 Status: Completed Start: 10-10-2021 End: 10-10-2021 Insulin [...] Date: 10/09/21 Stop Date: 10/09/21 Status: Completed Mounjaro 12.5 MG/0.5ML solut ion auto-injector (17 sources) Start: 02-18-2024 End: 06-28-2024 Mounjaro 12.5 MG/0.5ML solut ion auto-injector Inject 12.5 mg under the skin every 7 (seven) days 02/18/2024 06/28/2024 Discontinued (Reorder) Start: 02-18-2024 Mounjaro 12.5 MG/0.5ML solution auto-injector Inject 12.5 mg under the skin every 7 (seven) days 02/18/2024 Active 24 hr nicotine 0.875 mg/hr transdermal system (20 sources) Cholinergic Nicotinic Agonist Start: 06-07-2024 End: 10-11-2024 nicotine (Nicotine Step 1) 21 MG/24HR patch Indications: Tobacco use disorder Place 1 patch over 24 hours on the skin 1 (one) time each day at the same time Rotate application site daily, may leave on for 24 hours, or take off prior to bedtime 30 patch 06/07/2024 10/11/2024 Discontinued (Therapy completed) Start: 02-05-2024 End: 03-06-2024 nicotine (Nicotine Step 1) 2 1 MG/24HR patch Indications: Tobacco use disorder Place 1 patch over 24 hours on the skin 1 (one) time each day at the same time Rotate application site daily, may leave on for 24 hours, or take off prior to bedtime 30 patch 1 02/05/2024 Active Start: 10-08-2023 End: 2023 Nicoderm C-Q 7 mg/24 hr Patc h-ER 1 patch(es), Topical, Daily for 7 day(s), 7 EA, Refill(s) 0 Start Date: 10/08/23 Stop Date: 10/15/23 Status: Ordered Problems Active Problems Problem Classification Problem Date Documented Da te Episodic/Chronic Acute myocardial infarction (20 sources) Myocardial infarction; Translations: [Acute myocardial infarction, unspecified] Onset: 4 09-13-2018 Chronic Anal and rectal conditions (2 sources) Anal fissure; Translations: [Anal fissure, unspecified] Onset: 5 Episodic Anxiety disorders (20 sources) Anxiety; Translations: [Anxiety disorder] Onset: 2 Resolved: 4 04-02-2020 Chronic Chronic obstructive pulmonary disease and bronchiectasis (20 sources) Chronic obstructive lung disease; Translations: [Chronic obstructive pulmonary disease, unspecified] Onset: 4 05-25-2023 Chronic Complications of surgical procedures or medical care (20 sources) Menopausal flushing; Translations: [Symptomatic postprocedural ovarian failure] Onset: 4 05-25-2023 Chronic Complications of surgical procedures or medical care (2 sources) Complication of procedure; Translations: [Other complications of procedures, not elsewhere classified, initial encounter] Onset: 0 Episodic Coronary atherosclerosis and other heart disease (20 sources) Coronary arteriosclerosis; Translations: [History of myocardial infarction] Onset: 2 Resolved: 5 11-19-2020 Chronic Diabetes mellitus with complications (20 sources) Neuropathy due to diabetes mellitus; Translations: [Type 2 diabetes mellitus with hyperglycemia] Onset: 1 Resolved: 4 04-02-2020 Chronic Diabetes mellitus without complication (20 sources) Diabetes mellitus; Translations: [Type 2 diabetes mellitus] Onset: 1 Resolved: 9 01-02-2021 Chronic Disorders of lipid metabolism (20 sources) Hyperlipidemia; Translations: [Hyperlipidemia, unspecified] Onset: 2 01-02-2021 Chronic Esophageal disorders (20 sources) Gastroesophageal reflux disease; Translations: [Gastroesophageal reflux disease without esophagitis] Onset: 4 01-02-2021 Chronic Essential hypertension (20 sources) Hypertensive disorder; Translations: [Essential hypertension] Onset: 2 Resolved: 4 12-27-2018 Chronic Gastritis and duodenitis (1 source) Gastritis; Translations: [Gastritis, unspecified, without bleeding] Onset: 4 Episodic Hemorrhoids (20 sources) Hemorrhoids; Translations: [Internal hemorrhoids] Onset: 4 Resolved: 5 01-02-2021 Episodic Inflammation; infection of eye (except that caused by tuberculosis or sexually transmitteddisease) (1 source) Blepharitis; Translations: [Unspecified blepharitis left upper eyelid] Onset: 2 Episodic Malaise and fatigue (1 source) Asthenia; Translations: [Weakness] Onset: 5 Episodic Mood disorders (20 sources) Depressive disorder; Translations: [Recurrent major depressive episodes, moderate ] Onset: 4 Resolved: 4 01-02-2021 Chronic Nonspecific chest pain (5 sources) Chest pain; Translations: [Chest pain, unspecified] Onset: 2 Episodic Nutritional deficiencies (20 sources) Vitamin D deficiency; Translations: [Vitamin D deficiency, unspecified] Onset: 5 04-20-2024 Chronic Nutritional deficiencies (20 sources) Vitamin deficiency; Translations: [Vitamin deficiency, unspecified] Onset: 4 Resolved: 5 03-14-2024 Episodic Other connective tissue disease (4 sources) Pain in left foot; Translations: [PAIN IN LEFT FOOT] Onset: 2 Episodic Other endocrine disorders (20 sources) Polycystic ovaries 03-22-2018 Chronic Other endocrine disorders (20 sources) Polycystic ovary syndrome; Translations: [Polycystic ovarian syndrome] Onset: 4 01-02-2021 Chronic Other female genital disorders (20 sources) Abnormal uterine bleeding 01-02-2021 Chronic Other female genital disorders (20 sources) Pain in female genitalia on intercourse; Translations: [Unspecified dyspareunia] Onset: 4 05-25-2023 Chronic Other female genital disorders (2 sources) Other specified conditions associated with female genital organs and menstrual cycle; Translations: [Other specified conditions associated with female genital organs and menstrual cycle] Onset: 4 Episodic Other female genital disorders (1 source) Noninflammatory disorder of vulva; Translations: [Other specified noninflammatory disorders of vulva and perineum] Onset: 4 Episodic Other gastrointestinal disorders (1 source) Swollen abdomen; Translations: [Abdominal distension (gaseous)] Onset: 5 Episodic Other gastrointestinal disorders (1 source) Abdominal bloating 10-17-2024 Episodic Other liver diseases (20 sources) Steatosis of liver; Translations: [Fatty (change of) liver, not elsewhere classified] Onset: 4 01-02-2021 Chronic Other lower respiratory disease (20 sources) Wheezing; Translations: [Wheezing] Onset: 4 Resolved: 5 03-17-2023 Episodic Other nervous system disorders (1 source) Other acute postprocedural pain; Translations: [Other acute postprocedural pain] Onset: 4 Episodic Other nervous system disorders (1 source) Numbness and tingling sensation of skin; Translations: [Anesthesia of skin] 05-16-2024 Episodic Other non-traumatic joint disorders (1 source) Pain in left ankle and joints of left foot; Translations: [PAIN IN LEFT ANKLE] Onset: 2 Episodic Other nutritional; endocrine; and metabolic disorders (20 sources) Morbid obesity; Translations: [Morbid (severe) obesity due to excess calories] Onset: 2 Resolved: 4 Chronic Other nutritional; endocrine; and metabolic disorders (20 sources) Severe obesity; Translations: [Class 3 severe obesity without serious comorbidity in adult] Onset: 4 Resolved: 4 08-05-2023 Chronic Other nutritional; endocrine; and metabolic disorders (20 sources) Body mass index 40+ - severely obese; Translations: [Body mass index (BMI) 40.0-44.9, adult] Onset: 5 04-26-2024 Chronic Other upper respiratory infections (20 sources) Chronic maxillary sinusitis; Translations: [Chronic maxillary sinusitis] Onset: 4 Resolved: 5 05-25-2023 Chronic Poisoning by other medications and drugs (2 sources) Adverse reaction to cannabis; Translations: [Adverse reaction to drug] 10-17-2024 Episodic Residual codes; unclassified (20 sources) Obstructive sleep apnea syndrome; Translations: [Obstructive sleep apnea (adult) (pediatric)] Onset: 2 01-18-2021 Chronic Residual codes; unclassified (1 source) Dependence on enabling machine or device; Translations: [Dependence on other enabling machines and devices] Onset: 2 Chronic Residual codes; unclassified (20 sources) Obstructive sleep apnea of adult; Translations: [Obstructive sleep apnea (adult) (pediatric)] Onset: 4 05-25-2023 Chronic Residual codes; unclassified (1 source) Procedure carried out on subject; Translations: [Encounter for prophylactic measures, unspecified] Onset: 2 Episodic Residual codes; unclassified (8 sources) Noncompliance with treatment; Translations: [Non-compliance] Onset: 5 09-22-2024 Episodic Skin and subcutaneous tissue infections (1 source) Abscess of skin and/or subcutaneous tissue; Translations: [Cutaneous abscess, unspecified] Onset: 4 Episodic Substance-related disorders (20 sources) Psychoactive substance abuse; Translations: [Smoker] Onset: 2 Resolved: 4 01-02-2021 Chronic Comment on above: Added secondary to d ocumentation in Social History. Substance-related disorders (1 source) Cannabis misuse; Translations: [Cannabis use, unspecified, uncomplicated] Onset: 5 Episodic Unclassified (1 source) Labial Pain Onset: 4 Urinary tract infections (1 source) Urinary tract infectious disease; Translations: [Urinary tract infection, site not specified] Onset: 4 Episodic Viral infection (1 source) Herpesviral infection of urogenital system, unspecified; Translations: [HERPESVIRAL INF UROGENITAL SYS UNS] Onset: 1 Chronic Past or Other Problems Problem Classification Problem Date Documented Da te Episodic/Chronic Abdominal hernia (20 sources) Hernia of anterior abdominal wall; Translations: [Ventral hernia without obstruction or gangrene] Onset: 12-30-2023 12-30-2023 Episodic Abdominal pain (20 sources) Abdominal pain; Translations: [Unspecified abdominal pain] Onset: 09-06-2019 Episodic Allergic reactions (1 source) Dermatitis, unspecified; Translations: [DERMATITIS UNSPECIFIED] Onset: 12-18-2020 Episodic Benign neoplasm of uterus (20 sources) Uterine leiomyoma Resolved: 08-20-2018 12-19-2018 Episodic Calculus of urinary tract (20 sources) Kidney stone; Translations: [Calculus of kidney] Onset: 10-25-2022 Resolved: 01-31-2011 12-19-2018 Episodic Coagulation and hemorrhagic disorders (20 sources) Easy bruising; Translations: [Spontaneous ecchymoses] Onset: 03-14-2024 03-14-2024 Episodic Coronary atherosclerosis and other heart disease (20 sources) Stented coronary artery; Translations: [Presence of coronary angioplasty implant and graft] Onset: 04-20-2023 01-09-2019 Episodic Gastrointestinal hemorrhage (20 sources) Rectal hemorrhage; Translations: [Hemorrhage of anus and rectum] Onset: 05-25-2023 05-25-2023 Episodic Genitourinary symptoms and ill-defined conditions (20 sources) Urinary symptoms ; Translations: [Unspecified symptoms and signs involving the genitourinary system] Onset: 09-25-2023 Resolved: 09-22-2024 09-25-2023 Episodic Inflammatory diseases of female pelvic organs (20 sources) Abscess of Bartholin's gland; Translations: [Abscess of Bartholin's gland] Onset: 10-03-2023 Resolved: 09-22-2024 Episodic Mood disorders (1 source) Mood disorders Onset: 10-06-2023 10-06-2023 Mycoses (20 sources) Mycosis; Translations: [Candidiasis, unspecified] Onset: 05-07-2023 05-07-2023 Episodic Nausea and vomiting (20 sources) Nausea; Translations: [Nausea] Onset: 09-22-2023 09-22-2023 Episodic Nonmalignant breast conditions (20 sources) Discharge from left nipple; Translations: [Nipple discharge] Onset: 05-25-2023 05-25-2023 Episodic Other aftercare (1 source) 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; 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] Onset: 12-18-2020 Episodic Other aftercare (1 source) Other skilled nursing (current) drug therapy; Translations: [OTH INTERMEDIATE CURRENT DRUG THERAPY] Onset: 12-18-2020 Episodic Other aftercare (1 source) Admission statuses; Translations: [Encounter for other specified aftercare] Onset: 09-30-2019 09-30-2019 Episodic Other aftercare (20 sources) Long-term current use of insulin; Translations: [MCFP (current) use of insulin] Onset: 04-26-2024 04-26-2024 Episodic Other eye disorders (20 sources) Xanthelasma; Translations: [Xanthelasma of unspecified eye, unspecified eyelid] Onset: 05-25-2023 05-25-2023 Episodic Other female genital disorders (20 sources) Mass of vulva; Translations: [Other specified noninflammatory disorders of vulva and perineum] Onset: 12-14-2023 10-10-2023 Episodic Other female genital disorders (20 sources) Disorder of vulva; Translations: [Other specified conditions associated with female genital organs and menstrual cycle] Onset: 10-06-2023 10-11-2023 Episodic Other injuries and conditions due to external causes (1 source) Hematoma; Translations: [Other injury of unspecified body region, initial encounter] Onset: 10-09-2019 10-09-2019 Episodic Other nervous system disorders (20 sources) Postoperative pain ; Translations: [Other acute postprocedural pain] Onset: 12-14-2023 Resolved: 12-30-2023 10-11-2023 Episodic Other nervous system disorders (20 sources) Paresthesia of skin; Translations: [Disturbance of skin sensation] Onset: 05-25-2023 05-25-2023 Episodic Other nutritional; endocrine; and metabolic disorders (20 sources) Body mass index 30+ - obesity; Translations: [Obesity, unspecified] Onset: 08-05-2023 Resolved: 03-14-2024 12-30-2023 Chronic Other screening for suspected conditions (not mental disorders or infectious disease) (20 sources) Patient encounter status; Translations: [Encounter for screening mammogram for malignant neoplasm of breast] Onset: 04-20-2023 04-20-2023 Episodic Other skin disorders (3 sources) Rash and other nonspecific skin eruption; Translations: [RASH OTH NONSPECIFIC SKIN ERUPTION] Onset: 12-16-2020 Episodic Ovarian cyst (20 sources) Cyst of ovary; Translations: [Cyst of left ovary] Onset: 05-25-2023 01-02-2021 Episodic Residual codes; unclassified (20 sources) Harmful pattern of use of nicotine Resolved: 09-12-2018 12-19-2018 Episodic Residual codes; unclassified (20 sources) Insomnia; Translations: [Insomnia, unspecified] Onset: 05-25-2023 01-02-2021 Episodic Screening and history of mental health and substance abuse codes (1 source) Personal history of nicotine dependence; Translations: [PERSONAL HISTORY OF NICOTINE DEPEND] Onset: 12-18-2020 Episodic Unclassified (1 source) Exposure to 2019 novel coronavirus; Translations: [Contact with and (suspected) exposure to COVID19] Viral infection (20 sources) Disease caused by 2019-nCoV; Translations: [COVID-19] Onset: 12-14-2020 Resolved: 05-25-2023 05-25-2023 Episodic Results Test Name Value Interpretation Reference Range Facility Ambulatory Visit Summaryon 0 10-17-2024 Ambulatory Visit Summary Ambulatory Visit Summary TISH VARGAS Riley :1980 Visit Date:10/17/2024 Ambulatory Visit Instructions Your Diagnosis Abdominal pain GERD (gastroesophageal reflux disease) Hemorrhoids Nausea and vomiting, Cannabinoid hyperemesis syndrome Diabetes Bloating Morbid obesity with BMI of 40.0-44.9, adult Anal fissure Body mass index [BMI] 40.0-44.9, adult Cannabis use, unspecified, uncomplicated Your Care Team Attending Physician - Jim Foreman MD Primary Care Physician - YANET JUNIOR CNP This Is Your Medications List Contact prescribing physician if questions or concerns albuterol (Albuterol (Eqv-Ventolin HFA) 90 mcg/inh inhalation aerosol) albuterol (albuterol HFA 90 mcg/inh MDI) alprazolam (Xanax 1 mg Tab) aspirin (aspirin 81 mg Chew Tab) atorvastatin (atorvastatin 80 mg Tab) cholecalciferol (Vitamin D3 5000 intl units (125 mcg) oral tab) clopidogrel (Plavix 75 mg Tab) empagliflozin (Jardiance 25 mg oral tablet) gabapentin (gabapentin 300 mg Cap) losartan (losartan 25 mg Tab) metformin (MetFORMIN (Eqv-Glucophage XR) 500 mg oral tablet, extended release) metoprolol (Metoprolol tartrate 25 mg Tab) multivitamin (Vitamin B Complex oral tablet) nitroglycerin (nitroglycerin 0.4% rectal ointment) ondansetron (Zofran ODT 4 mg Tab-Dis) promethazine (Phenergan 25 mg Supp) tirzepatide (Mounjaro 12.5 mg/0.5 mL subcutaneous solution) Procedures Performed PCI (08/20/2018), Abdominal hysterectomy (2019), Appendectomy (2019), Bilateral salpingo-oophorectomy, x2, Cardiac catheterization, Cardiac Stent, Dilation and curettage, Hernia repair x5, Hysterectomy, Incision AND drainage, kidney stone removal, lithotripsy. Discharge Vitals Heart Rate (Peripheral) 64 Respiratory Rate 16 Blood Pressure 116/73 Height 160 cm Height 63 in Weight 109 kg Weight 240.304 lb BMI 42.58 What to do next You Need to Complete the Following [place] Gastric Emptying Study, 10/17/24, Routine, Order for Future Visit, Transport Mode: Wheelchair, Reason: Nausea, Abdominal pain GERD (gastroesophageal reflux disease) Hemorrhoids, No, pp_set_radiology_subsp ecialty, [facility] - [facility] Medications What How Much When Instructions Unchanged albuterol (Albuterol (Eqv-Ventolin HFA) 90 mcg/ inh inhalation aerosol) 2 Puffs Inhalation Every 6 hours Contact prescribing physician if questions or concerns Unchanged albuterol (albuterol HFA 90 mcg/ inh MDI) 2 Puffs Inhalation 4 times a day as needed for for wheezing Contact prescribing physician if questions or concerns Unchanged alprazolam (Xanax 1 mg Tab) 1 Tablets By Mouth 2 times a day as needed for for anxiety Contact prescribing physician if questions or concerns Unchanged aspirin (aspirin 81 mg Chew Tab) 1 Tablets Chewed Every day Contact prescribing physician if questions or concerns Unchanged atorvastatin (atorvastatin 80 mg Tab) 1 Tablets By Mouth Every day Contact prescribing physician if questions or concerns Unchanged cholecalciferol (Vitamin D3 5000 intl units (125 mcg) oral tab) 1 Tablets Contact prescribing physician if questions or concerns Unchanged clopidogrel (Plavix 75 mg Tab) 1 Tablets By Mouth Every day Contact prescribing physician if questions or concerns Unchanged empagliflozin (Jardiance 25 mg oral tablet) 1 Tablets By Mouth Once a day (in the morning) Contact prescribing physician if questions or concerns Unchanged gabapentin (gabapentin 300 mg Cap) 1 Capsules By Mouth 3 times a day Contact prescribing physician if questions or concerns Unchanged losartan (losartan 25 mg Tab) 1 Tablets By Mouth At bedtime Contact prescribing physician if questions or concerns Unchanged metformin (MetFORMIN (Eqv-Glucophage XR) 500 mg oral tablet, extended release) 2 Tablets By Mouth 2 times a day Contact prescribing physician if questions or concerns Unchanged metoprolol (Metoprolol tartrate 25 mg Tab) 1 Tablets By Mouth 2 times a day Contact prescribing physician if questions or concerns Unchanged multivitamin (Vitamin B Complex oral tablet) By Mouth Every day Contact prescribing physician if questions or concerns Unchanged nitroglycerin (nitroglycerin 0.4% rectal ointment) See instructions Rectal q12hr Contact prescribing physician if questions or concerns Unchanged ondansetron (Zofran ODT 4 mg Tab-Dis) 1 Tablets By Mouth Every 8 hours as needed for Nausea/Vomiting Contact prescribing physician if questions or concerns Unchanged promethazine (Phenergan 25 mg Supp) 1 Suppositories By rectum Every 6 hours as needed for as needed for nausea Insert one per rectum every six hours as needed for nausea and vomiting Contact prescribing physician if questions or concerns Unchanged tirzepatide (Mounjaro 12.5 mg/ 0.5 mL subcutaneous solution) 12.5 Milligram Subcutaneous Every week Contact prescribing physician if questions or concerns Allergies Ultram (Hives, Nausea and vomiting) Vicodin (Vomit) penicill (more content not included)... Normal [facility] Gastroenterology Office/Clin ic Noteon 10-17-2024 Gastroenterology Office/Clinic Note Gastroenterology Office/Clinic Note Chief Complaint ref by [facility] for abd pain, GERD, hemorrhoids HPI Staff NEW, 43 year old female who presents today for a referral by [facility] for complaints of GERD, abdominal pain and hemorrhoids. Blood Thinners- Plavix. Mounjaro weekly. Abdominal pain GERD- taking omeprazole 40mg daily vomiting, daily. Hemorrhoids- Anusol suppositories CT abd/pelv 01/13/24 IMPRESSION: REMOTE VENTRAL WALL HERNIA REPAIR. STABLE HEPATOMEGALY. NONOBSTRUCTING BILATERAL RENAL CALCULI. HYSTERECTOMY. Laboratory Results CBC CMP PT PTT Basophil Absolute: 0 E9/L (07/09/24) A/G Ratio: 1.9 (10/03/24) INR: 0.89 (07/09/24) PTT: 26.7 second(s) (07/09/24) Basophil Auto: 0.5 % (07/09/24) AGAP: 11 mEq/L (10/03/24) PT: 10 second(s) (07/09/24) Eos Absolute: 0.1 E9/L (07/09/24) Albumin Lvl: 4.7 gm/dL (10/03/24) Eos Auto: 1.5 % (07/09/24) Alk Phos: 97 Int._Unit/L (10/03/24) Hct: 43.5 % (07/09/24) ALT: 6 Int._Unit/L (10/03/24) HGB: 15.3 gm/dL (07/09/24) AST: 14 Int._Unit/L (10/03/24) Lymph Absolute: 2.8 E9/L (07/09/24) Bili Total: 0.5 mg/dL (10/03/24) Lymph Auto: 34.7 % (07/09/24) BUN: 26 mg/dL High (10/03/24) MCH: 32 pg (07/09/24) BUN/Creat Ratio: 29 High (10/03/24) MCHC: 35.1 gm/dL (07/09/24) Calcium Lvl: 10 mg/dL (10/03/24) MCV: 91.2 fL (07/09/24) Chloride: 106 mmol/L (10/03/24) [place] Absolute: 0.5 E9/L (07/09/24) CO2: 28 mmol/L (10/03/24) [place] Auto: 6.7 % (07/09/24) Creatinine: 0.9 mg/dL (10/03/24) MPV: 8.5 fL (07/09/24) Globulin: 2.5 gm/dL (10/03/24) Neutro Absolute: 4.5 E9/L (07/09/24) Glucose Lvl: 105 mg/dL (10/03/24) Neutro Auto: 56.6 % (07/09/24) Potassium Lvl: 4.3 mmol/L (10/03/24) Platelet: 220 E9/L (07/09/24) Sodium Lvl: 141 mmol/L (10/03/24) RBC: 4.8 E12/L (07/09/24) Total Protein: 7.2 gm/dL (10/03/24) RDW: 14.3 % High (07/09/24) WBC: 8 E9/L (07/09/24) History of Present Illness I have reviewed HPI staff note, most recent labs and imaging, I agree with the above documentation with the following additions/exceptions : PT is sick all days she vomits every day on munjaro x 2 years symptoms are worse x 2 years nausea - bad in am food that she eats 1-2 days before bloating bad constipation x 6 months bad hemorrhoids from constipation Gen surgery treated for tear on plavix- hx of heart attacks lost 100 pounds Review of Systems PHQ Score Initial Depression Screen Score: 0 SCORE All systems reviewed, negative except as mentioned above Physical Exam Vitals & Measurements HR: 64(Peripheral) RR: 16 BP: 116/73 HT: 63 in HT: 160 cm WT: 109 kg WT: 240.304 lb BMI: 42.58 General: alert, no acute distress HEENT: atraumatic normocephalic Cardiovascular: regular rate and rhythm, normal peripheral perfusion Respiratory: Lungs CTA, respirations non labored Extremities: no deformity, no trauma Abdomen: Benign, soft, nontender nondistended Assessment/Plan 1. Abdominal pain (R10.9: Unspecified abdominal pain) Ordered: [place] Gastric Emptying Study 2. GERD (gastroesophageal reflux disease) (K21.9: Gastro-esophageal reflux disease without esophagitis) Ordered: [place] Gastric Emptying Study 3. Hemorrhoids (K64.9: Unspecified hemorrhoids) Ordered: [place] Gastric Emptying Study 4. Nausea and vomiting, (R11.2: Nausea with vomiting, unspecified)Cannabinoi d hyperemesis syndrome 5. Diabetes (E11.9: Type 2 diabetes mellitus without complications) 6. Bloating (R14.0: Abdominal distension (gaseous)) 7. Morbid obesity with BMI of 40.0-44.9, adult (E66.01: Morbid (severe) obesity due to excess calories) 9. Anal fissure (K60.2: Anal fissure, unspecified) Body mass index [BMI] 40.0-44.9, adult (Z68.41: Body mass index [BMI] 40.0-44.9, adult) Cannabis use, unspecified, uncomplicated (F12.90: Cannabis use, unspecified, uncomplicated) Referred to general surgery to be evaluated for anal fissure suturing and colonoscopy since patient would like to get it done at the same time Patient will benefit from upper endoscopy as well Obtain gastric emptying test Advised to quit smoking marijuana Might benefit from stopping Mounjaro in the future if gastric emptying's test shows severe gastroparesis Advised to continue to work on losing weight and eating healthy Advised to follow gastroparesis diet Follow-up No qualifying data available Problem List/Past Medical History Ongoing Abnormal uterine bleeding Adverse effect of sodium-glucose cotransporter 2 (SGLT2) inhibitor Anal fissure Anxiety Bloating Cannabinoid hyperemesis syndrome Coronary artery disease Depression Diabetes Diabetic neuropathy Fatty liver GERD (gastroesophageal reflux disease) Hemorrhoids History of VT (myocardial infarction) HTN (hypertension) Hyperlipidemia Hypertension Insomnia Labial abscess Left ovarian cyst Morbid obesity with BMI of 40.0-44.9, adult Narcotic abuse Nausea and vomiting O (more content not included)... Normal [facility] Comment on above: Result Comment: Elec tronically Signed By: Ahsan HERRERA, Jim Banks\.br\Date and Time Signed: 10/17/24 13:02 EDT CMPon 10-03-2024 Chloride [Moles/Vol] 106 mmol/L Normal 101-111 [facility] Comment on above: Performed By: #### 2 [id number] #### [facility] [address] [place] [address] CO2 [Moles/Vol] 28 mmol/L Normal 21-31 [facility] Comment on above: Performed By: #### 2 [id number] #### [facility] [address] [place] [address] Creatinine [Mass/Vol] 0.9 mg/dL Normal 0.5-1.3 [facility] Comment on above: Performed By: #### 2 [id number] #### [facility] [address] [place] [address] Glucose [Mass/Vol] 105 mg/dL Normal 55-199 [facility] Comment on above: Performed By: #### 2 [id number] #### [facility] [address] [place] [address] Potassium [Moles/Vol] 4.3 mmol/L Normal 3.5-5.3 [facility] Comment on above: Performed By: #### 2 [id number] #### [facility] [address] [place] [address] Sodium [Moles/Vol] 141 mmol/L Normal 135-145 [facility] Comment on above: Performed By: #### 2 [id number] #### [facility] [address] [place] [address] Urea nitrogen [Mass/Vol] 26 mg/dL High 5-21 [facility] Comment on above: Performed By: #### 2 [id number] #### [facility] [address] [place] [address] Albumin [Mass/Vol] 4.7 g/dL Normal 3.3-5.0 [facility] Comment on above: Performed By: #### 2 [id number] #### [facility] [address] [place] [address] Albumin/Globulin [Mass ratio] 1.9 {ratio} Normal 1.1-2.2 [facility] Comment on above: Performed By: #### 2 [id number] #### [facility] [address] [place] [address] Alk Phos 97 Int._Unit/L Normal 21-98 [facility] Comment on above: Performed By: #### 2 [id number] #### [facility] [address] [place] [address] ALT 6 Int._Unit/L Normal 6-46 [facility] Comment on above: Performed By: #### 2 [id number] #### [facility] [address] [place] [address] Anion gap [Moles/Vol] 11 mmol/L Normal 6-16 [facility] Comment on above: Performed By: #### 2 [id number] #### [facility] [address] [place] [address] AST 14 Int._Unit/L Normal 5-43 [facility] Comment on above: Performed By: #### 2 [id number] #### [facility] [address] [place] [address] Bili Total 0.5 mg/dL Normal 0.0-1.1 [facility] Comment on above: Performed By: #### 2 [id number] #### [facility] [address] [place] [address] BUN/Creat Ratio 29 No Units High 10-20 [facility] Comment on above: Performed By: #### 2 [id number] #### [facility] [address] [place] [address] Calcium [Mass/Vol] 10.0 mg/dL Normal 8.9-11.1 [facility] Comment on above: Performed By: #### 2 [id number] #### [facility] [address] [place] [address] Globulin (S) [Mass/Vol] 2.5 g/dL Normal 1.4-4.0 [facility] Comment on above: Performed By: #### 2 [id number] #### [facility] [address] [place] [address] Protein [Mass/Vol] 7.2 g/dL Normal 6.0-7.8 [facility] Comment on above: Performed By: #### 2 [id number] #### [facility] [address] [place] [address] [facility] CMPon 10-03-2024 Calcium [Mass/Vol] 10 mg/dL 8.9 - 11. 1 mg/dL [facility] A/G RATIO 1.9 1.1 - 2.2 [facility] AGAP 11 [facility] ALBUMIN LVL 4.7 [facility] ALK PHOS 97 [facility] ALT 6 [facility] AST 14 [facility] BILI TOTAL 0.5 mg/dL 0.0 - 1.1 mg/dL [facility] BUN/CREAT RATIO 29 High [facility] GLOBULIN 2.5 [facility] TOTAL PROTEIN 7.2 [facility] Interpretation and review of laboratory results Abnormal [facility] EGFRon 10-03-2024 GFR/1.73 sq M.predicted CKD-EPI (S/P/Bld) [Vol rate/Area] 81 - PINF [facility] [id number] 10-03-2024 HbA1c (Bld) [Mass fraction] 6.0 % High <=5.9 [facility] Comment on above: Performed By: #### 7 [id number] #### [facility] [address] [place] [address] No Panel Informationon 10-03 Original Ordering Provider: FAIZAN RAEHARSHA [facility] U MA/Cr Ratioon 10-03-2024 Microalb/Cr Ratio NOT CALCULATED Invalid Interpretation Code .0-30.0 [facility] Comment on above: Result Comment: 30-3 00 mg/g Cr indicates an increased risk for diabetic nephropathy. >300 mg/g Cr is consistent with clinical nephropathy. Performed By: #### 1 [id number] #### [facility] [address] [place] [address] U Creatinine 163.1 mg/dL Invalid Interpretation Code [facility] Comment on above: Performed By: #### 1 [id number] #### [facility] [address] [place] [address] U Microalb <0.7 Normal 0.0-1.9 [facility] Comment on above: Performed By: #### 1 [id number] #### [facility] [address] [place] [address] Urinalysis with Microon 09-14 Color (U) Light-Yellow Normal Yellow [facility] Comment on above: Result Comment: Micr oscopic readings are only performed on those samples that meet specific criteria set forth by [facility]. Performed By: #### 4 [id number] #### [facility] [address] [place] [address] Ketones Ql (U) Negative Normal Negative [facility] Comment on above: Performed By: #### 4 [id number] #### [facility] [address] [place] [address] UA Blood Negative Normal Negative [facility] Comment on above: Performed By: #### 4 [id number] #### [facility] [address] [place] [address] UA Clarity Clear Normal Clear [facility] Comment on above: Performed By: #### 4 [id number] #### [facility] [address] [place] [address] UA Glucose 4+ mg/dL Abnormal Negative [facility] Comment on above: Performed By: #### 4 [id number] #### [facility] [address] [place] [address] UA Leuk Est Negative Normal Negative [facility] Comment on above: Performed By: #### 4 [id number] #### [facility] [address] [place] [address] UA Nitrite Negative Normal Negative [facility] Comment on above: Performed By: #### 4 [id number] #### [facility] [address] [place] [address] UA pH 5.5 Invalid Interpretation Code 5.0-9.0 [facility] Comment on above: Performed By: #### 4 [id number] #### [facility] [address] [place] [address] UA Protein Negative Normal Negative [facility] Comment on above: Performed By: #### 4 [id number] #### [facility] [address] [place] [address] UA Spec Grav 1.042 Invalid Interpretation Code 1.005-1.030 [facility] Comment on above: Performed By: #### 4 [id number] #### [facility] [address] [place] [address] UA Urobilinogen Negative Normal Negative [facility] Comment on above: Performed By: #### 4 [id number] #### [facility] [address] [place] [address] Urobilinogen (U) [Mass/Vol] Negative Normal Negative [facility] Comment on above: Performed By: #### 4 [id number] #### [facility] [address] [place] [address] UA Spec Desc Clean Catch Normal [facility] Comment on above: Performed By: #### 4 [id number] #### [facility] [address] [place] [address] Vit B12on 10-03-2024 Cobalamin (Vitamin B12) [Mass/Vol] 119 pg/mL Normal 50-1500 [facility] Comment on above: Performed By: #### 2 [id number] #### [facility] [address] [place] [address] Vitamin D 25 Hydroxyon 10-03 Vitamin D 25 Hydroxy 29.7 ng/mL Low 30.0-100.0 [facility] Comment on above: Performed By: #### 5 [id number] #### [facility] [address] [place] [address] eGFRon 10-03-2024 eGFR 81 mL/min/1.73 m2 Normal >=59 [facility] Comment on above: Performed By: #### 1 [id number] #### [facility] [address] [place] [address] Ambulatory Visit Summaryon 0 07-18-2024 Ambulatory Visit Summary Ambulatory Visit Summary TISH VARGAS Riley :1980 Visit Date:07/18/2024 Ambulatory Visit Instructions Your Diagnosis Vomiting Adverse effect of sodium-glucose cotransporter 2 (SGLT2) inhibitor Your Care Team Attending Physician - Wendi Calderón Primary Care Physician - YANET JUNIOR CNP This Is Your Medications List ondansetron (Zofran ODT 4 mg Tab-Dis) promethazine (Phenergan 25 mg Supp) Contact prescribing physician if questions or concerns albuterol (Albuterol (Eqv-Ventolin HFA) 90 mcg/inh inhalation aerosol) albuterol (albuterol HFA 90 mcg/inh MDI) alprazolam (Xanax 1 mg Tab) aspirin (aspirin 81 mg Chew Tab) atorvastatin (atorvastatin 80 mg Tab) clopidogrel (Plavix 75 mg Tab) empagliflozin (Jardiance 25 mg oral tablet) gabapentin (gabapentin 300 mg Cap) losartan (losartan 25 mg Tab) metformin (MetFORMIN (Eqv-Glucophage XR) 500 mg oral tablet, extended release) metoprolol (Metoprolol tartrate 25 mg Tab) naproxen (Naprosyn 500 mg Tab) nitroglycerin (nitroglycerin 0.4% rectal ointment) tirzepatide (Mounjaro 12.5 mg/0.5 mL subcutaneous solution) Procedures Performed PCI (08/20/2018), Abdominal hysterectomy (2019), Appendectomy (2019), Bilateral salpingo-oophorectomy, x2, Cardiac catheterization, Cardiac Stent, Dilation and curettage, Hernia repair x5, Hysterectomy, Incision AND drainage, kidney stone removal, lithotripsy. Discharge Vitals Temperature (Oral) 36.8 ???C Heart Rate (Peripheral) 79 Respiratory Rate 18 Blood Pressure 102/68 Height 160 cm Height 63 in Weight 106.8 kg Weight 235.453 lb BMI 41.72 What to do next You Need to Schedule the Following Appointments Follow Up with VERNON GLORIA, YANET Sheppard When: Where: Medications What How Much When Instructions Unchanged ondansetron (Zofran ODT 4 mg Tab-Dis) 1 Tablets By Mouth Every 8 hours as needed for Nausea/Vomiting Pickup at [facility] Unchanged promethazine (Phenergan 25 mg Supp) 1 Suppositories By rectum Every 6 hours as needed for as needed for nausea Insert one per rectum every six hours as needed for nausea and vomiting Pickup at [facility] Unchanged albuterol (Albuterol (Eqv-Ventolin HFA) 90 mcg/ inh inhalation aerosol) 2 Puffs Inhalation Every 6 hours Contact prescribing physician if questions or concerns Unchanged albuterol (albuterol HFA 90 mcg/ inh MDI) 2 Puffs Inhalation 4 times a day as needed for for wheezing Contact prescribing physician if questions or concerns Unchanged alprazolam (Xanax 1 mg Tab) 1 Tablets By Mouth 2 times a day as needed for for anxiety Contact prescribing physician if questions or concerns Unchanged aspirin (aspirin 81 mg Chew Tab) 1 Tablets Chewed Every day Contact prescribing physician if questions or concerns Unchanged atorvastatin (atorvastatin 80 mg Tab) 1 Tablets By Mouth Every day Contact prescribing physician if questions or concerns Unchanged clopidogrel (Plavix 75 mg Tab) 1 Tablets By Mouth Every day Contact prescribing physician if questions or concerns Unchanged empagliflozin (Jardiance 25 mg oral tablet) 1 Tablets By Mouth Once a day (in the morning) Contact prescribing physician if questions or concerns Unchanged gabapentin (gabapentin 300 mg Cap) 1 Capsules By Mouth 3 times a day Contact prescribing physician if questions or concerns Unchanged losartan (losartan 25 mg Tab) 1 Tablets By Mouth At bedtime Contact prescribing physician if questions or concerns Unchanged metformin (MetFORMIN (Eqv-Glucophage XR) 500 mg oral tablet, extended release) 2 Tablets By Mouth 2 times a day Contact prescribing physician if questions or concerns Unchanged metoprolol (Metoprolol tartrate 25 mg Tab) 1 Tablets By Mouth 2 times a day Contact prescribing physician if questions or concerns Unchanged naproxen (Naprosyn 500 mg Tab) 1 Tablets By Mouth 2 times a day as needed for for pain Contact prescribing physician if questions or concerns Unchanged nitroglycerin (nitroglycerin 0.4% rectal ointment) See instructions Rectal q12hr Contact prescribing physician if questions or concerns Unchanged tirzepatide (Mounjaro 12.5 mg/ 0.5 mL subcutaneous solution) 12.5 Milligram Subcutaneous Every week Contact prescribing physician if questions or concerns Pharmacy Information [id number]: [address], [place] [id number] [phone] Allergies Ultram (Hives, Nausea and vomiting) Vicodin (Vomit) penicillin (Nausea and vomiting, Hives) Problems Ongoing - Any problem that you are currently receiving treatment for. Abnormal uterine bleeding Adverse effect of sodium-glucose cotransporter 2 (SGLT2) inhibitor Anxiety Coronary artery disease Depression Diabetes Diabetic neuropathy Fatty liver GERD (gastroesophageal reflux disease) Hemorrhoids History of VT (myocardial infarction) HTN (hypertension) Hyperlipidemia Hypertension Insomnia Labi (more content not included)... Normal [facility] Family Medicine Office/Clini c Noteon 07-18-2024 Family Medicine Office/Clinic Note Family Medicine Office/Clinic Note Chief Complaint Nausea and vomiting HPI Staff 43 year old female presents with vomiting Pt states she is on Mounjaro and sometimes her stomach just stops working. Pt states she is out of Phenergan suppositories and Zofran. Pt reports emesis began yesterday. History of Present Illness 43-year-old female with a past medical history significant for morbid obesity obstructive sleep apnea, smoker, PCOS, GERD, hypertension, VT, depression anxiety insomnia Asking for refills of medications today of Phenergan and Zofran she went to the ER before she came here, but they were packed per patient report. She denies fever. She could not get in touch with her PCP, she is out of the office today and was vomiting yesterday and today. making slightly less urine today. denies black or bloody vomit, had a small bm TODAY -I have reviewed and discussed the HPI (staff) with the patient today. -Information was verified and is correct. -Additional information provided if needed. Review of Systems PHQ Score Initial Depression Screen Score: 0 SCORE Physical Exam Vitals & Measurements T: 36.8 ???C(Oral) HR: 79(Peripheral) RR: 18 BP: 102/68 SpO2: 97% HT: 160 cm HT: 63 in WT: 106.8 kg WT: 235.453 lb BMI: 41.72 General: alert, no acute distress, well appearing, _pleasant, OBESE FEMALE room 1 Skin: warm, dry, intact Head: no trauma, normocephalic Neck: Trachea midline, no adenopathy, no tenderness Eye: normal conjunctiva, sclera clear, _PERRLA ENMT: oral mucosa moist, normal dentition Cardiovascular: regular rate and rhythm, normal peripheral perfusion, no edema Respiratory: Lungs CTA, respirations non labored Chest wall: no deformity, non tender Gastrointestinal: soft, non distended, no tenderness, no guarding. large rounded and soft Neurological: oriented x 4, LOC appropriate for age, CN II-XII intact, speech normal Psychiatric: cooperative? , affect appropriate for age? , normal? judgement, normal? psychiatric thoughts. Assessment/Plan Patient was given a refill of the oral dissolving Zofran 4 mg as needed patient was given a refill of the oral dissolving Zofran 4 mg as needed and directed Phenergan 25 mg. She was instructed to follow-up with her PCP and advised of possible side effects of SGLT2 medications. Advised her to follow-up with digestive health but a referral was not placed by me today. She had no rebound rigidity or guarding in the abdomen. Reasons to go to the ER including continued nausea vomiting dehydration less urine output. Patient is agreeable with this plan. no further questions discharged in stable condition. 1. Vomiting (R11.10: Vomiting, unspecified) 2. Adverse effect of sodium-glucose cotransporter 2 (SGLT2) inhibitor (T38.3X5A: Adverse effect of insulin and oral hypoglycemic [antidiabetic] drugs, initial encounter) Orders: ondansetron, 4 mg = 1 tab(s), Oral, q8hr, PRN Nausea/Vomiting, # 20 tab(s), Refills(s) 0, Pharmacy: [facility], 160, cm, 07/18/24 13:16:00 EDT, Height/Length Dosing, 106.8, kg, 07/18/24 13:16:00 EDT, Weight Dosing promethazine, 25 mg = 1 supp, Rectal, q6hr, PRN as needed for nausea, Insert one per rectum every six hours as needed for nausea and vomiting, # 10 EA, Refills(s) 0, Pharmacy: [facility], 160, cm, 07/18/24 13:16:00 EDT, Height/Length Dosing, 106.8,... Total time spent preparing the chart, conducting of the encounter with the patient and family and time spent documenting, reviewing, and ordering tests was 20 minutes. Portions of this record may have been created with voice recognition artificial intelligence software, specifically Rollerscoot, Stem and or Protection Plus. Substitutions may have occurred due to the inherent limitations of voice recognition and artificial intelligence software. Follow-up With When Contact Information VERNON GLORIA, YANET Sheppard Additional Instructions: Problem List/Past Medical History Ongoing Abnormal uterine bleeding Adverse effect of sodium-glucose cotransporter 2 (SGLT2) inhibitor Anxiety Coronary artery disease Depression Diabetes Diabetic neuropathy Fatty liver GERD (gastroesophageal reflux disease) Hemorrhoids History of VT (myocardial infarction) HTN (hypertension) Hyperlipidemia Hypertension Insomnia Labial abscess Left ovarian cyst Morbid obesity with BMI of 40.0-44.9, adult Narcotic abuse Obesity, morbid TRUONG on CPAP PCOS (polycystic ovarian syndrome) Presence of stent in coronary artery Smoker Vomiting Vulvar mass Vulvar pain Historical CAD - Coronary artery disease DM type 2, goal HbA1c < 7% Hyperlipidemia Hypertension Myocardial infarction Nicotine abuse PCOS - Polycystic ovarian syndrome renal calculi Smoker 15-SEP-2013 12:37:00<$> Uterine fibroid Procedure/Surgical History PCI (08/20/2018), Abdominal hysterectomy (2019), Appendectomy (2019), Bilateral salpingo-oophore (more content not included)... Normal [facility] Comment on above: Result Comment: Elec tronically Signed By: Wendi Calderón\Date and Time Signed: 07/18/24 13:33 EDT BMPon 07-09-2024 Anion gap [Moles/Vol] 14 mmol/L Normal 6-16 [facility] Comment on above: Performed By: #### 2 [id number] #### [facility] [address] [place] [address] Calcium [Mass/Vol] 10.1 mg/dL Normal 8.9-11.1 [facility] Comment on above: Performed By: #### 2 [id number] #### [facility] [address] [place] [address] Chloride [Moles/Vol] 102 mmol/L Normal 101-111 [facility] Comment on above: Performed By: #### 2 [id number] #### [facility] [address] [place] [address] CO2 [Moles/Vol] 27 mmol/L Normal 21-31 [facility] Comment on above: Performed By: #### 2 [id number] #### [facility] [address] [place] [address] Creatinine [Mass/Vol] 0.9 mg/dL Normal 0.5-1.3 [facility] Comment on above: Performed By: #### 2 [id number] #### [facility] [address] [place] [address] Glucose [Mass/Vol] 93 mg/dL Normal 55-199 [facility] Comment on above: Performed By: #### 2 [id number] #### [facility] [address] [place] [address] Potassium [Moles/Vol] 3.6 mmol/L Normal 3.5-5.3 [facility] Comment on above: Performed By: #### 2 [id number] #### [facility] [address] [place] [address] Sodium [Moles/Vol] 139 mmol/L Normal 135-145 [facility] Comment on above: Performed By: #### 2 [id number] #### [facility] [address] [place] [address] Urea nitrogen [Mass/Vol] 20 mg/dL Normal 5-21 [facility] Comment on above: Performed By: #### 2 [id number] #### [facility] [address] [place] [address] Urea nitrogen/Creatinine [Mass ratio] 22 No Units High 10-20 [facility] Comment on above: Performed By: #### 2 [id number] #### [facility] [address] [place] [address] BNPon 07-09-2024 Natriuretic peptide B (Bld) [Mass/Vol] 5 pg/mL Normal 5-80 [facility] Comment on above: Performed By: #### 1 [id number] #### [facility] [address] [place] [address] CBC w/ Auto Diffon 5 Basophils/100 WBC (Bld) 0.5 % Normal 0.0-2.0 [facility] Comment on above: Performed By: #### 2 [id number] #### [facility] [address] [place] [address] Basophils/Leukocytes Auto (Bld) [Pure # fraction] 0.0 E9/L Normal 0.0-0.2 [facility] Comment on above: Performed By: #### 2 [id number] #### [facility] [address] [place] [address] Eosinophils (Bld) [#/Vol] 0.1 E9/L Normal 0.0-0.5 [facility] Comment on above: Performed By: #### 2 [id number] #### [facility] [address] [place] [address] Eosinophils/100 WBC (Bld) 1.5 % Normal 0.0-8.0 [facility] Comment on above: Performed By: #### 2 [id number] #### [facility] [address] [place] [address] Erythrocyte distribution width (RBC) [Ratio] 14.3 % High 10.9-14.2 [facility] Comment on above: Performed By: #### 2 [id number] #### [facility] [address] [place] [address] Hematocrit (Bld) [Volume fraction] 43.5 % Normal 34.0-46.0 [facility] Comment on above: Performed By: #### 2 [id number] #### [facility] [address] [place] [address] Hemoglobin (Bld) [Mass/Vol] 15.3 g/dL Normal 12.0-16.0 [facility] Comment on above: Performed By: #### 2 [id number] #### [facility] [address] [place] [address] Lymphocytes (Bld) [#/Vol] 2.8 E9/L Normal 1.0-4.0 [facility] Comment on above: Performed By: #### 2 [id number] #### [facility] [address] [place] [address] Lymphocytes/100 WBC (Bld) 34.7 % Normal 14.0-50.0 [facility] Comment on above: Performed By: #### 2 [id number] #### [facility] [address] [place] [address] MCH (RBC) [Entitic mass] 32.0 pg Normal 27.0-34.0 [facility] Comment on above: Performed By: #### 2 [id number] #### [facility] [address] [place] [address] MCHC (RBC) [Mass/Vol] 35.1 g/dL Normal 31.4-36.0 [facility] Comment on above: Performed By: #### 2 [id number] #### [facility] [address] [place] [address] MCV (RBC) [Entitic vol] 91.2 fL Normal 80.0-100.0 [facility] Comment on above: Performed By: #### 2 324116 #### [facility] [address] [place] [address] Monocytes (Bld) [#/Vol] 0.5 E9/L Normal 0.2-1.0 [facility] Comment on above: Performed By: #### 2 [id number] #### [facility] [address] [place] [address] Neutrophils (Bld) [#/Vol] 4.5 E9/L Normal 2.0-7.5 [facility] Comment on above: Performed By: #### 2 346159 #### [facility] [address] [place] [address] Neutrophils/100 WBC (Bld) 56.6 % Normal 36.0-75.0 [facility] Comment on above: Performed By: #### 2 [id number] #### [facility] [address] [place] [address] Platelet 220.0 E9/L Normal 150.0-500.0 [facility] Comment on above: Performed By: #### 2 372500 #### [facility] [address] [place] [address] Platelet mean volume (Bld) [Entitic vol] 8.5 fL Normal 6.4-10.8 [facility] Comment on above: Performed By: #### 2 [id number] #### [facility] [address] [place] [address] RBC (Bld) [#/Vol] 4.8 E12/L Normal 4.3-5.9 [facility] Comment on above: Performed By: #### 2 [id number] #### [facility] [address] [place] [address] WBC corrected for nucl RBC Auto (Bld) [#/Vol] 8.0 E9/L Normal 4.0-11.0 [facility] Comment on above: Performed By: #### 2 [id number] #### [facility] [address] [place] [address] CHEMISTRYOrdered By: SYSTEM SYSTEM on 07-09-2024 Troponin HS 2.50 pg/mL Low 10.10 - 27.10 pg/mL [facility] Comment on above: Interpretive Data: T he 95% CI (Confidence Interval) PPV (Positive Predictive Value) for myocardial infarction in females is 38 pg/mL, in males 51 pg/mL. The results should be used in conjunction with clinical conditions of myocardial infarction. (Access High Sensitivity Troponin I Instructions For Use, Meryl [employer]ine, October 2017) Albumin [Mass/Vol] 4.8 g/dL Normal 3.3 - 5.0 gm/dL [facility] Albumin/Globulin [Mass ratio] 1.7 {ratio} Normal 1.1 - 2.2 [facility] ALP [Catalytic activity/Vol] 102 [iU]/d High 21 - 98 Int._Unit/L [facility] Chem ALT No additional P-5'-P [Catalytic activity/Vol] 15 [iU]/d Normal 6 - 46 Int._Unit/L Remisol [...] - 0.9 mg/dL [facility] Calcium [Mass/Vol] 10.1 mg/dL Normal 8.9 - 11. 1 mg/dL [facility] Chloride [Moles/Vol] 102 mmol/L Normal 101 - 1 11 mmol/L [facility] CO2 [Moles/Vol] 27 mmol/L Normal 21 - 31 mmol/L [facility] Creatinine [Mass/Vol] 0.9 mg/dL Normal 0.5 - 1.3 mg/dL [facility] eGFR 81 mL/min/1.73 m2 Normal >=59mL/min /1 .73 m2 [facility] Globulin (S) [Mass/Vol] 2.9 g/dL Normal 1.4 - 4.0 gm/dL [facility] Glucose [Mass/Vol] 93 mg/dL Normal 55 - 199 mg/dL [facility] Magnesium [Mass/Vol] 1.9 mg/dL Normal 1.3 - 2 .4 mg/dL [facility] Potassium [Moles/Vol] 3.6 mmol/L Normal 3.5 - 5.3 mmol/L [facility] Protein [Mass/Vol] 7.7 g/dL Normal 6.0 - 7.8 gm/dL [facility] Sodium [Moles/Vol] 139 mmol/L Normal 135 - 145 mmol/L [facility] Troponin HS 2.40 pg/mL Low 10.10 - 27.10 pg/mL [facility] Comment on above: Interpretive Data: T he 95% CI (Confidence Interval) PPV (Positive Predictive Value) for myocardial infarction in females is 38 pg/mL, in males 51 pg/mL. The results should be used in conjunction with clinical conditions of myocardial infarction. (Access High Sensitivity Troponin I Instructions For Use, Meryl War[employer]ine, October 2017) TSH Qn 2.29 m[IU]/L Normal 0.34 - 5.60 mcIU/mL [facility] Urea nitrogen [Mass/Vol] 20 mg/dL Normal 5 - 21 mg/dL [facility] Urea nitrogen/Creatinine [Mass ratio] 22 mg/mg High 10 - 20 [facility] CHEMISTRYOrdered By: Shiela Cohn on 07-09-2024 Natriuretic peptide B (Bld) [Mass/Vol] 5 pg/mL Normal 5 - 80 pg/mL [facility] [employer] COAGULATIONOrdered By: Erik Crane on 07-09-2024 aPTT Coag (PPP) [Time] 26.7 s Normal 25.1 - 36.5 second(s) [facility] Comment on above: Interpretive Data: [...] the same coagulation reagent and instrumentation as [facility]. Currently there are no coagulation studies available worldwide for children to 14 days, and no normal ranges. Heparin therapeutic range (represented by Anti-Factor Xa activity of 0.2 - 0.4 U/mL) corresponds to PTT of 56.6 - 109.0 sec. INR Coag (PPP) [Relative time] 0.89 {INR} Invalid Interpretation Code [facility] Comment on above: Interpretive Data: I NR results are specifically intended to assess patients stabilized on long-term Anticoagulation therapy suggested INR s Less Intensive Anticoagulation 2.0 3.0 Conventional Range 3.0 4.5 PT Coag (PPP) [Time] 10.0 s Normal 9.4 - 1 2.5 second(s) [facility] Comment on above: Interpretive Data: [...] the same coagulation reagent and instrumentation as [facility]. Currently there are no coagulation studies available worldwide for children to 14 days, and no normal ranges. ED Clinical Summaryon 2024 ED Clinical Summary ED Clinical Summary [place] [id number] ED Clinical Summary Person Information Name: TISH VARGAS [place] Age: 43 Years : 1980 Sex: Female Language: Turkish PCP: YANET JUNIOR CNP Marital Status: Visit Id: Visit Reason: Weakness or fatigue; Shortness of breath; Chest pain; CP Speciality: Acuity: 2 Enc Type: Emergency Med Service: Emergency Arrival: 07/09/2024 11:31:33 Discharge: 07/09/2024 14:01:21 LOS: 000 02:30 Checkin: 07/09/2024 11:31:33 Checkout: 07/09/2024 14:01:21 Dispo Type: Home (Routine DC) EVENTS: Event Name Event Status Request Date/Time Start Date/Time Complete Date/Time Arrive Complete 07/09/2024 11:31:33 07/09/2024 11:31:33 07/09/2024 11:31:33 Document Home Meds Request 07/09/2024 11:31:33 Triage Complete 07/09/2024 11:31:33 07/09/2024 11:36:17 07/09/2024 11:36:17 Bed Assign Complete 07/09/2024 11:32:22 07/09/2024 11:32:22 07/09/2024 11:32:22 Dr Exam Complete 07/09/2024 11:32:22 07/09/2024 11:36:22 07/09/2024 11:36:22 RN Exam Complete 07/09/2024 11:32:22 07/09/2024 11:45:11 07/09/2024 11:45:11 EKG Complete 07/09/2024 11:32:40 07/09/2024 11:35:00 Isolation Screening Request 07/09/2024 11:36:18 Registration Complete 07/09/2024 11:36:22 07/09/2024 11:53:07 07/09/2024 11:53:07 Pending Labs Request 07/09/2024 11:44:42 Lab Complete 07/09/2024 11:44:42 07/09/2024 12:28:55 Patient Care Request 07/09/2024 11:44:43 RT Request 07/09/2024 11:44:43 X-Ray Complete 07/09/2024 11:44:43 07/09/2024 12:09:14 07/09/2024 12:22:23 Meds Admin Complete 07/09/2024 11:50:55 07/09/2024 11:54:59 Reg Complete Request 07/09/2024 11:53:07 Reg Bed Request Complete 07/09/2024 11:53:07 07/09/2024 11:53:07 07/09/2024 11:53:07 Pending Labs Complete 07/09/2024 11:56:35 07/09/2024 11:56:35 07/09/2024 12:19:49 Lab Complete 07/09/2024 11:56:35 07/09/2024 11:56:35 07/09/2024 12:19:49 Pending Labs Complete 07/09/2024 11:56:53 07/09/2024 11:56:53 07/09/2024 11:56:54 Wet Read Request 07/09/2024 12:22:23 Discharge Complete 07/09/2024 13:37:07 07/09/2024 14:01:26 07/09/2024 14:01:26 Transfer Complete 07/09/2024 14:01:26 07/09/2024 14:01:26 07/09/2024 14:01:26 ADDRESS: [address] [facility] [id number] [facility] DOC NOTES: MEDICAL INFORMATION: Prescriptions Given: Medications to Continue with No Changes Other Medications acetaminophen-oxycodon e (Percocet 5 mg-325 mg oral tablet) 1 Tablets By Mouth every 6 hours. Refills: 0. albuterol (Albuterol (Eqv-Ventolin HFA) 90 mcg/inh inhalation aerosol) 2 Puffs Inhalation every 6 hours. albuterol (albuterol HFA 90 mcg/inh MDI) 2 [...] Tab) 1 Tablets By Mouth every day. dicyclomine (dicyclomine 20 mg Tab) 1 Tablets By Mouth 4 times a day. Refills: 0. empagliflozin (Jardiance 25 mg oral tablet) 1 Tablets By Mouth once a day (in the morning). famotidine (Pepcid 20 mg Tab) 1 Tablets By Mouth 2 times a day. Refills: 0. gabapentin (gabapentin 300 mg Cap) 1 Capsules By Mouth 3 times a day. losartan (losartan 25 mg Tab) 1 Tablets By Mouth at bedtime. metformin (MetFORMIN (Eqv-Glucophage XR) 500 mg oral tablet, extended release) 2 Tablets By Mouth 2 times a day. metoprolol (Metoprolol tartrate 25 mg Tab) 1 Tablets By Mouth 2 times a day. mupirocin topical (mupirocin Top 2% Crm) 1 Application Topical 3 times a day. Refills: 0. naproxen (Naprosyn 500 mg Tab) 1 Tablets By Mouth 2 times a day as needed for pain. Refills: 0. nitroglycerin (nitroglycerin 0.4% rectal ointment) Rectal q12hr. Refills: 0. ondansetron (Zofran ODT 4 mg Tab-Dis) 1 Tablets By Mouth every 8 hours. Refills: 0. ondansetron (Zofran ODT 4 mg Tab-Dis) 1 Tablets By Mouth every 8 hours as needed Nausea/Vomiting. Refills: 0. promethazine (Phenergan 25 mg Supp) 1 Suppositories By rectum every 6 hours as needed as needed for nausea. Insert one per rectum every six hours as needed for nausea and vomiting. Refills: 0. venlafaxine (Effexor XR 150 mg Cap-ER) 1 Capsules By Mouth every day. PATIENT EDUCATION INFORMATION: Instructions: Panic Attack; Weakness; Nonspecific Chest Pain, Adult Follow up: With: Address: When: YANET JUNIOR [address], [place] [phone] Business (1) In 3 days 07/12/2024 Comments: Follow-up with your primary doctor as discussed. Return to the emergency room if your symptoms recur or any new symptoms. DIAGNOSIS: 1:Chest pain; 2:Weakness; 3:Panic attack Normal [facility] ED Note-Physicianon 07-10-19 ED Note-Physician ED Note-Physician Basic Information Time Seen: Mikaela Judd M.D. 07/09/2024 11:36 Chief Complaint pt was in a car when she began to have left sided chest pain around 0930. pt is also c/o SOB. pt had 2 previous VT's with stents placed. was given full dose asa and 1nitro by squad. History of Present Illness The patient is a 43-year-old female past medical history of diabetes, diabetic neuropathy, hypertension, hyperlipidemia, coronary artery disease status post 2 cardiac stents who presented to the emergency room by EMS for chest pain shortness of breath weakness. The patient states she was driving when she started having pain on her chest and feeling short of breath. The patient states her feet felt numb. She states she has numbness and tingling on both her hands as well. The patient states she feels short of breath. The patient describes the pain as pressure. She states the pressure is on and off. She states when she had heart attack she had pressure, however the pain was radiating to her neck and back and this pain is not radiating. The patient is tearful and she is not sure if this is anxiety. The patient states she can feel her feet and her legs but she is not able to move her legs. The patient denies any other associated symptoms. Review of Systems Additional ROS info: Except as noted in the above Review of Systems and in the History of Present Illness all other systems have been reviewed and are negative or noncontributory. Physical Exam Vitals & Measurements T: 37.0 ???C(Oral) HR: 75(Monitored) RR: 21 BP: 115/80 SpO2: 92% HT: 160 cm WT: 109.9 kg BMI: 42.93 General: alert, no acute distress Skin: warm, dry Head: no trauma, normocephalic Neck: Trachea midline, no tenderness, supple Eye: normal conjunctiva, sclera clear ENMT: Oral mucosa moist, no pharyngeal erythema or exudate Cardiovascular: regular rate and rhythm Respiratory: Lungs CTA, respirations non labored, breath sounds equal Gastrointestinal: soft, non distended, no tenderness, no guarding Extremities: no deformity, no trauma Neurological: Alert and oriented, CN II-XII intact, weakness bilateral lower legs, sensation equal & normal bilaterally, speech normal, patellar reflexes equal bilateral Psychiatric: cooperative, affect anxious, tearful, Procedure Heart Score for Major Cardiac Event History: [...] adverse cardiac event in 6 weeks [] 0-3 Points with 2 sets of negative cardiac markers <1% risk of major adverse cardiac event in 30 days. Medical Decision Making MEDICAL DECISION MAKING Number and Complexity of Problems Differential Diagnosis: [] [facility] Data External documents reviewed: [] My EKG interpretation: [] My CT interpretation: [] My X-ray interpretation: [] My Ultrasound interpretation: [] Decision rules/scores evaluated: [] Discussed with: [] Treatment and Disposition ED Course: The patient presented with chest pain shortness of breath. She is tearful and hyperventilating. She does have history of coronary artery disease. EKG is normal. More likely her symptoms are due to panic attack/hyperventilatio n. The patient is complaining of weakness. She states she could not move her legs. The patient was able to ambulate in the emergency room with a steady gait. Blood work reviewed. 2 troponins are negative. Chest x-ray no acute cardiopulmonary disease. The patient was given Ativan p.o. and she felt better. She feels comfortable to go home. The patient was instructed to return to the emergency room if her symptoms recur or any new symptoms. Shared decision making: Patient Code status: [] Assessment/Plan 1. Chest pain (R07.9: Chest pain, unspecified) 2. Weakness (R53.1: Weakness) 3. Panic attack (F41.0: Panic disorder [episodic paroxysmal anxiety]) Orders: lorazepam, 1 mg = 1 tab(s), Tab, Oral, Once, Stop date 07/09/24 11:50:00 EDT, STAT, Start date 07/09/24 11:50:00 EDT, 04 (more content not included)... Normal [facility] Comment on above: Result Comment: Elec tronically Signed By: Mikaela Judd M.D.\.br\Date and Time Signed: 07/09/24 13:57 EDT ED Patient Summaryon 025 ED Patient Summary ED Patient Summary [place] [id number] Patient Discharge Instructions Person Information Name: TISH VARGAS Age: 43 Years Arrival Date: 07/09/2024 11:31:33 Discharge Diagnosis: 1:Chest pain; 2:Weakness; 3:Panic attack Primary Care Physician: YANET JUNIOR CNP Provider Information Primary Provider: Miakela Judd M.D. [employer] Teacher:None The exam and treatment you received in the Emergency Department were for an urgent problem and are not intended as complete care. It is important that you follow up with a doctor, nurse practitioner, or physician???s home care assistant for ongoing care. If your symptoms [...] With: Address: When: YANET JUNIOR [address], [place] [phone] Business (1) In 3 days 07/12/2024 Comments: Follow-up with your primary doctor as discussed. Return to the emergency room if your symptoms recur or any new symptoms. In the event that this physician does not participate in your insurance network, please consult with your insurance company to find a nearby participating provider. Patient Education Materials: Panic Attack; Weakness; Nonspecific Chest Pain, Adult A MESSAGE TO ALL PATIENTS REGARDING OPIOIDS PRESCRIPTION OPIOIDS: WHAT YOU NEED TO KNOW Prescription opioids can be used to help relieve beckkece-vv-qepnjq pain and are often prescribed following a [...] as well, even when taken as directed: ??? Tolerance???meaning you might need to take more of the medication for the same pain relief ??? Physical dependence???meaning you have symptoms of withdrawal when a medication is stopped ??? Increased sensitivity to pain ??? Constipation ??? Nausea, vomiting, and dry mouth ??? Sleepiness and dizziness ??? Confusion ??? Depression ??? Low levels of testosterone that can result in lower sex drive, energy, and strength ??? Itching and sweating RISKS ARE GREATER WITH: ??? History of drug misuse, substance use disorder, or overdose ??? Mental health conditions (such as depression or anxiety) ??? Sleep apnea ??? Older age (65 years and older) ??? Avoid alcohol while taking prescription opioids. Also, unless specifically advised by your health care provider, medications to avoid include: ??? Benzodiazepines (such as Xanax or Valium) ??? Muscle relaxants (such as Soma or Flexeril) ??? Hypnotics (such as Ambien or Lunesta) ??? Other prescription opioids KNOW YOUR OPTIONS Talk to your health care provider about ways to manage your pain that don???t involve prescription opioids. Some of these options may actually work better and have fewer risks and side effects. Options may include: ??? Pain relievers such as acetaminophen, ibuprofen, and naproxen ??? Some medication that are also used for depression or seizures ??? Physical therapy and exercise ??? Cognitive behavioral therapy, a psychological, goal-directed approach, in which patients learn how to modify physical, behavioral, and emotional triggers of pain and stress. IF YOU ARE PRESCRIBED OPIOIDS FOR PAIN: ??? Never take opioids in greater amounts or more often than prescribed. ??? Follow up with your primary health care provider. o Work together to create a plan on how to manage your pain. o Talk about ways to help manage your pain that don???t involve prescription opioids. o Talk about any and all concerns and side effects. ??? Help prevent misuse and abuse o Never sell or share prescription opioids. o Never use another person???s prescription opioids. ??? Store prescription opioids in a secure place and out of reach of others (this may include visitors, children, friends, and family). ??? Safely dispose of unused prescription opioids: Find your community drug take-back program or your pharmacy mail-back program, or flush them down the toilet, following guidance from the Food and Drug Administration (www.fda.gov/Drugs/Res ourcesForYo (more content not included)... Normal [facility] HEMATOLOGYOrdered By: SYSTEM SYSTEM on 07-09-2024 Basophils/100 WBC (Bld) 0.5 % Normal 0.0 - 2.0 % [facility] Basophils/Leukocytes Auto (Bld) [Pure # fraction] 0.0 E9/L Normal 0.0 - 0.2 E9/L [facility] Eosinophils (Bld) [#/Vol] 0.1 E9/L Normal 0.0 - 0.5 E9/L [facility] Eosinophils/100 WBC (Bld) 1.5 % Normal 0.0 - 8.0 % [facility] Erythrocyte distribution width (RBC) [Ratio] 14.3 % High 10.9 - 14.2 % [facility] Hematocrit (Bld) [Volume fraction] 43.5 % Normal 34.0 - 46.0 % [facility] Hemoglobin (Bld) [Mass/Vol] 15.3 g/dL Normal 12.0 - 16.0 gm/dL [facility] Lymphocytes (Bld) [#/Vol] 2.8 E9/L Normal 1.0 - 4.0 E9/L [facility] Lymphocytes/100 WBC (Bld) 34.7 % Normal 14.0 - 50.0 % [facility] MCH (RBC) [Entitic mass] 32.0 pg Normal 27.0 - 34.0 pg [facility] MCHC (RBC) [Mass/Vol] 35.1 g/dL Normal 31.4 - 36.0 gm/dL [facility] MCV (RBC) [Entitic vol] 91.2 fL Normal 80.0 - 100.0 fL [facility] Monocytes (Bld) [#/Vol] 0.5 E9/L Normal 0.2 - 1.0 E9/L [facility] Monocytes/100 WBC (Bld) 6.7 % Normal 4.0 - 14.0 % [facility] Neutrophils (Bld) [#/Vol] 4.5 E9/L Normal 2.0 - 7.5 E9/L [facility] Neutrophils/100 WBC (Bld) 56.6 % Normal 36.0 - 75.0 % [facility] Platelet 220.0 E9/L Normal 150.0 - 500.0 E9/L [facility] Platelet mean volume (Bld) [Entitic vol] 8.5 fL Normal 6.4 - 10.8 fL [facility] RBC (Bld) [#/Vol] 4.8 E12/L Normal 4.3 - 5.9 E12/L [facility] WBC corrected for nucl RBC Auto (Bld) [#/Vol] 8.0 E9/L Normal 4.0 - 11.0 E9/L [facility] Hep Func Panelon 07-09-2024 Albumin [Mass/Vol] 4.8 g/dL Normal 3.3-5.0 [facility] Comment on above: Performed By: #### 2 [id number] #### [facility] [address] [place] [address] Albumin/Globulin (S) [Mass conc ratio] 1.7 Normal 1.1-2.2 [facility] Comment on above: Performed By: #### 2 [id number] #### [facility] [address] [place] [address] ALP [Catalytic activity/Vol] 102 Int._Unit/L High 21-98 [facility] Comment on above: Performed By: #### 2 [id number] #### [facility] [address] [place] [address] ALT No additional P-5'-P [Catalytic activity/Vol] 15 Int._Unit/L Normal 6-46 [facility] Comment on above: Performed By: #### 2 [id number] #### [facility] [address] [place] [address] AST [Catalytic activity/Vol] 16 Int._Unit/L Normal 5-43 [facility] Comment on above: Performed By: #### 2 [id number] #### [facility] [address] [place] [address] Bilirubin [Mass/Vol] 0.5 mg/dL Normal 0.0-1.1 [facility] Comment on above: Performed By: #### 2 [id number] #### [facility] [address] [place] [address] Bilirubin.direct [Mass/Vol] 0.1 mg/dL Normal 0.0-0.4 [facility] Comment on above: Performed By: #### 2 [id number] #### [facility] [address] [place] [address] Bilirubin.indirect [Mass or moles/Vol] 0.4 mg/dL Normal 0.1-0.9 [facility] Comment on above: Performed By: #### 2 [id number] #### [facility] [address] [place] [address] Globulin (S) [Mass/Vol] 2.9 g/dL Normal 1.4-4.0 [facility] Comment on above: Performed By: #### 2 [id number] #### [facility] [address] [place] [address] Protein [Mass/Vol] 7.7 g/dL Normal 6.0-7.8 [facility] Comment on above: Performed By: #### 2 [id number] #### [facility] [address] [place] [address] Magnesiumon 07-09-2024 Magnesium [Mass/Vol] 1.9 mg/dL Normal 1.3-2.4 [facility] Comment on above: Performed By: #### 2 [id number] #### [facility] [address] [place] [address] PT & PTTon 07-09-2024 aPTT Coag (PPP) [Time] 26.7 second(s) Normal 25.1-36.5 [facility] Comment on above: Result Comment: Para [...] the same coagulation reagent and instrumentation as [facility]. Currently there are no coagulation studies available worldwide for children to 14 days, and no normal ranges. Heparin therapeutic range (represented by Anti-Factor Xa activity of 0.2 - 0.4 U/mL) corresponds to PTT of 56.6 - 109.0 sec. Performed By: #### 1 [id number] #### [facility] [address] [place] [address] INR Coag (PPP) [Relative time] 0.89 {INR} Invalid Interpretation Code [facility] Comment on above: Result Comment: INR results are specifically intended to assess patients stabilized on long-term Anticoagulation therapy suggested INR???s ???Less Intensive Anticoagulation??? 2.0 ??? 3.0 Conventional Range 3.0 ??? 4.5 Performed By: #### 1 [id number] #### [facility] [address] [place] [address] PT Coag (PPP) [Time] 10.0 second(s) Normal 9.4-12.5 [facility] Comment on above: Result Comment: 15 d ays - 4 weeks 1 - 5 months 6 -11 months 1 ??? 5 years 6 ??? 10 years 11 -17 years Mean: 11.2 (9.5 ??? 12.6) Mean: 11.0 (9.7 ??? 12.8) Mean: 11.0 (9.8 ??? 13.0) Mean: 11.3 (9.9 ??? 13.4) Mean: 11.7 (10.0 ??? 14.6) Mean: 11.8 (10.0 - 14.1) Pediatric Reference ranges were obtained from a study by Chuy Carlisle et al. prepared from 1437 samples obtained at 7 different centers using the same coagulation reagent and instrumentation as [facility]. Currently there are no coagulation studies available worldwide for children to 14 days, and no normal ranges. Performed By: #### 1 [id number] #### [facility] [address] [place] [address] TSH With T4fr Reflexon 07-09 TSH Qn 2.29 m[IU]/L Normal 0.34-5.60 [facility] Comment on above: Performed By: #### 1 [id number] #### [facility] [address] [place] [address] Troponin 0 Hr.on 07-09-2024 Troponin HS 2.40 pg/mL Low 10.10-27.10 [facility] Comment on above: Result Comment: The 95% CI (Confidence Interval) PPV (Positive Predictive Value) for myocardial infarction in females is 38 pg/mL, in males 51 pg/mL. The results should be used in conjunction with clinical conditions of myocardial infarction. (Access High Sensitivity Troponin I Instructions For Use, [employer], October 2017) Performed By: #### 1 [id number] #### [facility] [address] [place] [address] Troponin 1 Hr.on 07-09-2024 Troponin HS 2.50 pg/mL Low 10.10-27.10 [facility] Comment on above: Result Comment: The 95% CI (Confidence Interval) PPV (Positive Predictive Value) for myocardial infarction in females is 38 pg/mL, in males 51 pg/mL. The results should be used in conjunction with clinical conditions of myocardial infarction. (Access High Sensitivity Troponin I Instructions For Use, [employer], October 2017) Performed By: #### 1 [id number] #### [facility] [address] [place] [address] XR Chest Single Viewon 07-09 XR Chest Single View Exam Date/Time: 07/09/2024 12:22 EDT Reason for Exam: Chest pain Report IMPRESSION: NO RADIOGRAPHIC EVIDENCE OF ACUTE INTRATHORACIC PROCESS. EXAM: XR Chest Single View History: Chest pain Technique: Portable AP view of the chest. Comparison: 08/10/2023 Findings: The cardiomediastinal silhouette is within normal limits. No pneumothorax, pleural effusion, or consolidation. No acute osseous abnormality. Ordering Provider: Mikaela Judd FINAL REPORT Dictated: 07/09/2024 12:39 pm Ranjan Baptiste DO Signed (Electronic Signature): 07/09/2024 12:39 pm Signed by: Ranjan Baptiste DO Transcribed by: FLORENTINO Technologist: ROBE Stafford [facility] eGFRon 07-09-2024 eGFR 81 mL/min/1.73 m2 Normal >=59 [facility] Comment on above: Performed By: #### 1 [id number] #### [facility] [address] [place] [address] Amylaseon 05-22-2024 Amylase [Catalytic activity/Vol] 55 U/L Normal 25-157 [facility] Comment on above: Performed By: #### 2 [id number] #### [facility] [address] [place] [address] B hCG Qualon 05-22-2024 Beta HCG ( test) Ql Negative Normal [facility] Comment on above: Performed By: #### 2 [id number] #### [facility] [address] [place] [address] BMPon 05-22-2024 Anion gap [Moles/Vol] 10 mmol/L Normal 6-16 [facility] Comment on above: Performed By: #### 2 [id number] #### [facility] [address] [place] [address] Calcium [Mass/Vol] 10.2 mg/dL Normal 8.9-11.1 [facility] Comment on above: Performed By: #### 2 [id number] #### [facility] [address] [place] [address] Chloride [Moles/Vol] 101 mmol/L Normal 101-111 [facility] Comment on above: Performed By: #### 2 [id number] #### [facility] [address] [place] [address] CO2 [Moles/Vol] 32 mmol/L High 21-31 [facility] Comment on above: Performed By: #### 2 [id number] #### [facility] [address] [place] [address] Creatinine [Mass/Vol] 0.9 mg/dL Normal 0.5-1.3 [facility] Comment on above: Performed By: #### 2 [id number] #### [facility] [address] [place] [address] Glucose [Mass/Vol] 127 mg/dL Normal 55-199 [facility] Comment on above: Performed By: #### 2 [id number] #### [facility] [address] [place] [address] Potassium [Moles/Vol] 4.4 mmol/L Normal 3.5-5.3 [facility] Comment on above: Performed By: #### 2 [id number] #### [facility] [address] [place] [address] Sodium [Moles/Vol] 139 mmol/L Normal 135-145 [facility] Comment on above: Performed By: #### 2 961054 #### [facility] [address] [place] [address] Urea nitrogen [Mass/Vol] 18 mg/dL Normal 5-21 [facility] Comment on above: Performed By: #### 2 [id number] #### [facility] [address] [place] [address] Urea nitrogen/Creatinine [Mass ratio] 20 No Units Normal 10-20 [facility] Comment on above: Performed By: #### 2 [id number] #### [facility] [address] [place] [address] BOHBon 05-22-2024 Beta HB Qnt <0.10 Normal 0.02-0.27 [facility] Comment on above: Performed By: #### 2 [id number] #### [facility] [address] [place] [address] CBC w/ Auto Diffon 5 Basophils/100 WBC (Bld) 0.5 % Normal 0.0-2.0 [facility] Comment on above: Performed By: #### 2 177666 #### [facility] [address] [place] [address] Basophils/Leukocytes Auto (Bld) [Pure # fraction] 0.0 E9/L Normal 0.0-0.2 [facility] Comment on above: Performed By: #### 2 064065 #### [facility] [address] [place] [address] Eosinophils (Bld) [#/Vol] 0.0 E9/L Normal 0.0-0.5 [facility] Comment on above: Performed By: #### 2 138997 #### [facility] [address] [place] [address] Eosinophils/100 WBC (Bld) 0.4 % Normal 0.0-8.0 [facility] Comment on above: Performed By: #### 2 554819 #### [facility] [address] [place] [address] Erythrocyte distribution width (RBC) [Ratio] 15.0 % High 10.9-14.2 [facility] Comment on above: Performed By: #### 2 255241 #### [facility] [address] [place] [address] Hematocrit (Bld) [Volume fraction] 44.7 % Normal 34.0-46.0 [facility] Comment on above: Performed By: #### 2 [id number] #### [facility] [address] [place] [address] Hemoglobin (Bld) [Mass/Vol] 15.2 g/dL Normal 12.0-16.0 [facility] Comment on above: Performed By: #### 2 820330 #### [facility] [address] [place] [address] Lymphocytes (Bld) [#/Vol] 1.3 E9/L Normal 1.0-4.0 [facility] Comment on above: Performed By: #### 2 321806 #### [facility] [address] [place] [address] Lymphocytes/100 WBC (Bld) 13.8 % Low 14.0-50.0 [facility] Comment on above: Performed By: #### 2 610347 #### [facility] [address] [place] [address] MCH (RBC) [Entitic mass] 31.8 pg Normal 27.0-34.0 [facility] Comment on above: Performed By: #### 2 781487 #### [facility] [address] [place] [address] MCHC (RBC) [Mass/Vol] 34.1 g/dL Normal 31.4-36.0 [facility] Comment on above: Performed By: #### 2 337958 #### [facility] [address] [place] [address] MCV (RBC) [Entitic vol] 93.3 fL Normal 80.0-100.0 [facility] Comment on above: Performed By: #### 2 658557 #### [facility] [address] [place] [address] Monocytes (Bld) [#/Vol] 0.5 E9/L Normal 0.2-1.0 [facility] Comment on above: Performed By: #### 2 011164 #### [facility] [address] [place] [address] Neutrophils (Bld) [#/Vol] 7.4 E9/L Normal 2.0-7.5 [facility] Comment on above: Performed By: #### 2 890854 #### [facility] [address] [place] [address] Neutrophils/100 WBC (Bld) 80.4 % High 36.0-75.0 [facility] Comment on above: Performed By: #### 2 748469 #### [facility] [address] [place] [address] Platelet mean volume (Bld) [Entitic vol] 8.3 fL Normal 6.4-10.8 [facility] Comment on above: Performed By: #### 2 006262 #### [facility] [address] [place] [address] Platelets (Bld) [#/Vol] 290.0 E9/L Normal 150.0-500.0 [facility] Comment on above: Performed By: #### 2 475827 #### [facility] [address] [place] [address] RBC (Bld) [#/Vol] 4.8 E12/L Normal 4.3-5.9 [facility] Comment on above: Performed By: #### 2 061220 #### [facility] [address] [place] [address] WBC corrected for nucl RBC Auto (Bld) [#/Vol] 9.3 E9/L Normal 4.0-11.0 [facility] Comment on above: Performed By: #### 2 540678 #### [facility] [address] [place], [place] [id number] CRPon 05-22-2024 CRP [Mass/Vol] 0.1 mg/dL Normal <=1.9 [facility] Comment on above: Performed By: #### 2 914907 #### [facility] [address] [place] [address] Capillary Glucose POCon Glucose [Mass/Vol] 132 mg/dL High 55-99 [facility] Comment on above: Result Comment: Genie gurrola RN/ Performed By: #### 2 [id number] #### [facility] [address] [place] [address] ED Clinical Summaryon 2024 ED Clinical Summary ED Clinical Summary [place] [id number] ED Clinical Summary Person Information Name: TISH VARGAS [place] Age: 43 Years : 1980 Sex: Female Language: Turkish PCP: YANET JUNIOR CNP Marital Status: Visit Id: Visit Reason: Vomiting; Abdominal pain; Nausea; VOMITING, BLOOD SUGAR ISSUES Speciality: Acuity: 3 Enc Type: Emergency Med Service: Emergency Arrival: 05/22/2024 12:56:01 Discharge: 05/22/2024 14:41:46 LOS: 000 01:45 Checkin: 05/22/2024 12:56:01 Checkout: 05/22/2024 14:41:46 Dispo Type: Home (Routine DC) EVENTS: Event Name Event Status Request Date/Time Start Date/Time Complete Date/Time Arrive Complete 05/22/2024 12:56:01 05/22/2024 12:56:01 05/22/2024 12:56:01 Document Home Meds Request 05/22/2024 12:56:01 Triage Complete 05/22/2024 12:56:01 05/22/2024 13:09:03 05/22/2024 13:09:03 Bed Assign Complete 05/22/2024 13:01:38 05/22/2024 13:01:38 05/22/2024 13:01:38 Dr Exam Complete 05/22/2024 13:01:38 05/22/2024 13:11:37 05/22/2024 13:11:37 RN Exam Complete 05/22/2024 13:01:38 05/22/2024 13:36:06 05/22/2024 13:36:06 Isolation Screening Request 05/22/2024 13:09:04 Registration Complete 05/22/2024 13:09:10 05/22/2024 13:09:10 05/22/2024 13:09:10 Reg Complete Request 05/22/2024 13:09:10 Reg Bed Request Complete 05/22/2024 13:09:10 05/22/2024 13:09:10 05/22/2024 13:09:10 Registration Request 05/22/2024 13:11:37 Pending Labs Complete 05/22/2024 13:12:09 05/22/2024 13:12:09 05/22/2024 13:12:09 Pending Labs Request 05/22/2024 13:15:00 Lab Inlab 05/22/2024 13:15:00 Meds Admin Complete 05/22/2024 13:38:17 05/22/2024 14:02:41 Pending Labs Cancel 05/22/2024 13:38:17 05/22/2024 14:11:12 Lab Cancel 05/22/2024 13:38:17 05/22/2024 14:11:12 Pending Labs Complete 05/22/2024 14:10:31 05/22/2024 14:10:31 05/22/2024 14:41:29 Lab Complete 05/22/2024 14:10:31 05/22/2024 14:10:31 05/22/2024 14:41:29 Pending Labs Inlab 05/22/2024 14:12:23 05/22/2024 14:12:23 Lab Inlab 05/22/2024 14:12:23 05/22/2024 14:12:23 Pending Labs Complete 05/22/2024 14:14:53 05/22/2024 14:14:53 05/22/2024 14:14:54 Discharge Complete 05/22/2024 14:29:05 05/22/2024 14:41:53 05/22/2024 14:41:53 Transfer Complete 05/22/2024 14:41:53 05/22/2024 14:41:53 05/22/2024 14:41:53 ADDRESS: [address] [facility] [id number] PHYS DOC NOTES: MEDICAL INFORMATION: Prescriptions Given: New Medications [facility] [address] [facility] [place] [place] [id number], [phone] dicyclomine (dicyclomine 20 mg Tab) 1 Tablets By Mouth 4 times a day. Refills: 0. famotidine (Pepcid 20 mg Tab) 1 Tablets By Mouth 2 times a day. Refills: 0. promethazine (Phenergan 25 mg Supp) 1 Suppositories By rectum every 6 hours as needed as needed for nausea. Insert one per rectum every six hours as needed for nausea and vomiting. Refills: 0. Medications to Continue Taking That Have Changed [facility], [address] [place], [place] [id number], [phone] START: ondansetron (Zofran ODT 4 mg Tab-Dis) 1 Tablets By Mouth every 8 hours. Refills: 0. Other Medications START: ondansetron (Zofran ODT 4 mg Tab-Dis) 1 Tablets By Mouth every 8 hours as needed Nausea/Vomiting. Refills: 0. Medications to Continue with No Changes Other Medications acetaminophen-oxycodon e (Percocet 5 mg-325 mg oral tablet) 1 Tablets By Mouth every 6 hours. Refills: 0. albuterol (Albuterol (Eqv-Ventolin HFA) 90 mcg/inh inhalation aerosol) 2 Puffs Inhalation every 6 hours. albuterol (albuterol HFA 90 mcg/inh MDI) 2 [...] Capsules By Mouth 3 times a day. losartan (losartan 25 mg Tab) 1 Tablets By Mouth at bedtime. metformin (MetFORMIN (Eqv-Glucophage XR) 500 mg oral tablet, extended release) 2 Tablets By Mouth 2 times a day. metoprolol (Metoprolol tartrate 25 mg Tab) 1 Tablets By Mouth 2 times a day. mupirocin topical (mupirocin Top 2% Crm) 1 Application Topical 3 times a day. Refills: 0. naproxen (Naprosyn 500 mg Tab) 1 Tablets By Mouth 2 times a day as needed for pain. Refills: 0. nitroglycerin (nitroglycerin 0.4% rectal ointment) Rectal q12hr. Refills: 0. venlafaxine (Effexor XR 150 mg Cap-ER) 1 Capsules By Mouth every day. PATIENT EDUCATION INFORMATION: Instructions: Nausea, Adult, Dnnf-wm-Hirt; Abdominal Pain, Adult, Xdwj-dp-Trzx Follow up: With: Address: When: YANET JUNIOR [address] [place], [place] [phone] Business (1) Within 1 to 2 days Comments: Return to ED (more content not included)... Normal [facility] ED Clinical Summary ED Clinical Summary [place] [id number] ED Clinical Summary Person Information Name: TISH VARGAS [place] Age: 43 Years : 1980 Sex: Female Language: Turkish PCP: YANET JUNIOR CNP Marital Status: Visit Id: Visit Reason: Vomiting; Abdominal pain; Nausea; VOMITING, BLOOD SUGAR ISSUES Speciality: Acuity: 3 Enc Type: Emergency Med Service: Emergency Arrival: 05/22/2024 12:56:01 Discharge: LOS: 000 01:33 Checkin: 05/22/2024 12:56:01 Checkout: Dispo Type: EVENTS: Event Name Event Status Request Date/Time Start Date/Time Complete Date/Time Arrive Complete 05/22/2024 12:56:01 05/22/2024 12:56:01 05/22/2024 12:56:01 Document Home Meds Request 05/22/2024 12:56:01 Triage Complete 05/22/2024 12:56:01 05/22/2024 13:09:03 05/22/2024 13:09:03 Bed Assign Complete 05/22/2024 13:01:38 05/22/2024 13:01:38 05/22/2024 13:01:38 Dr Exam Complete 05/22/2024 13:01:38 05/22/2024 13:11:37 05/22/2024 13:11:37 RN Exam Complete 05/22/2024 13:01:38 05/22/2024 13:36:06 05/22/2024 13:36:06 Isolation Screening Request 05/22/2024 13:09:04 Registration Complete 05/22/2024 13:09:10 05/22/2024 13:09:10 05/22/2024 13:09:10 Reg Complete Request 05/22/2024 13:09:10 Reg Bed Request Complete 05/22/2024 13:09:10 05/22/2024 13:09:10 05/22/2024 13:09:10 Registration Request 05/22/2024 13:11:37 Pending Labs Complete 05/22/2024 13:12:09 05/22/2024 13:12:09 05/22/2024 13:12:09 Pending Labs Request 05/22/2024 13:15:00 Lab Inlab 05/22/2024 13:15:00 Meds Admin Complete 05/22/2024 13:38:17 05/22/2024 14:02:41 Pending Labs Cancel 05/22/2024 13:38:17 05/22/2024 14:11:12 Lab Cancel 05/22/2024 13:38:17 05/22/2024 14:11:12 Pending Labs Inlab 05/22/2024 14:10:31 05/22/2024 14:10:31 Lab Inlab 05/22/2024 14:10:31 05/22/2024 14:10:31 Pending Labs Inlab 05/22/2024 14:12:23 05/22/2024 14:12:23 Lab Inlab 05/22/2024 14:12:23 05/22/2024 14:12:23 Pending Labs Complete 05/22/2024 14:14:53 05/22/2024 14:14:53 05/22/2024 14:14:54 Discharge Request 05/22/2024 14:29:05 ADDRESS: [address] [facility] [id number] PHYS DOC NOTES: MEDICAL INFORMATION: Prescriptions Given: New Medications [facility], [address] [place], [place] [id number], [phone] dicyclomine (dicyclomine 20 mg Tab) 1 Tablets By Mouth 4 times a day. Refills: 0. famotidine (Pepcid 20 mg Tab) 1 Tablets By Mouth 2 times a day. Refills: 0. promethazine (Phenergan 25 mg Supp) 1 Suppositories By rectum every 6 hours as needed as needed for nausea. Insert one per rectum every six hours as needed for nausea and vomiting. Refills: 0. Medications to Continue Taking That Have Changed [facility], [address] [place], [place] [id number], [phone] START: ondansetron (Zofran ODT 4 mg Tab-Dis) 1 Tablets By Mouth every 8 hours. Refills: 0. Other Medications START: ondansetron (Zofran ODT 4 mg Tab-Dis) 1 Tablets By Mouth every 8 hours as needed Nausea/Vomiting. Refills: 0. Medications to Continue with No Changes Other Medications acetaminophen-oxycodon e (Percocet 5 mg-325 mg oral tablet) 1 Tablets By Mouth every 6 hours. Refills: 0. albuterol (Albuterol (Eqv-Ventolin HFA) 90 mcg/inh inhalation aerosol) 2 Puffs Inhalation every 6 hours. albuterol (albuterol HFA 90 mcg/inh MDI) 2 [...] Capsules By Mouth 3 times a day. losartan (losartan 25 mg Tab) 1 Tablets By Mouth at bedtime. metformin (MetFORMIN (Eqv-Glucophage XR) 500 mg oral tablet, extended release) 2 Tablets By Mouth 2 times a day. metoprolol (Metoprolol tartrate 25 mg Tab) 1 Tablets By Mouth 2 times a day. mupirocin topical (mupirocin Top 2% Crm) 1 Application Topical 3 times a day. Refills: 0. naproxen (Naprosyn 500 mg Tab) 1 Tablets By Mouth 2 times a day as needed for pain. Refills: 0. nitroglycerin (nitroglycerin 0.4% rectal ointment) Rectal q12hr. Refills: 0. venlafaxine (Effexor XR 150 mg Cap-ER) 1 Capsules By Mouth every day. PATIENT EDUCATION INFORMATION: Instructions: Nausea, Adult, Akio-yl-Ykmt; Abdominal Pain, Adult, Wjkz-mb-Zzaw Follow up: With: Address: When: YANET JUNIOR [address] [facility], [place], [place] [phone] Business (1) Within 1 to 2 days Comments: Return to ED if symptoms worsen DIAGNOSIS: Epigastric abdominal pain; Nausea in adult Normal [facility] ED Note-Nursingon 05-22-2024 ED Note-Nursing ED Note-Nursing Patient had family emergency at this time and requested to go home. Dr Hatfield aware and patient placed for discharge and left Normal [facility] ED Note-Physicianon 05-23-19 ED Note-Physician ED Note-Physician Basic Information Time Seen: Kalia Hatfield MD 05/22/2024 13:11 Chief Complaint pt presents d/t vomiting for 2 days. per pt her blood sugars have been jumping all over the place between hypo-hyper. pt states she is having abdominal pain as well. History of Present Illness 43-year-old female presents with a complaint of nausea and dry heaves and diarrhea over the past several days. Patient states that it started with the nausea. She states she does get some epigastric pain just prior to each crescendo of nausea. Very little oral intake the last several days. Patient is a type II diabetic who is on insulin. Patient has history of coronary disease and has stents placed. Patient denies chronic lung or kidney disease. Patient has had previous hysterectomy and appendectomy. She has had numerous previous ventral hernia repairs and revisions. Patient states she still has her gallbladder. Review of Systems A 10 point review of systems is negative except as noted above. Medical and Surgical History: Reviewed and noted Social history: Lives at home Tobacco: Denies Physical Exam Vitals & Measurements T: 36.8 ???C(Oral) HR: 78(Peripheral) RR: 18 BP: 113/74 SpO2: 95% HT: 162.5 cm WT: 110.6 kg BMI: 41.88 This is a morbidly obese 43-year-old female she is alert and oriented skin is warm and dry color is pink on room air. Oral mucosa is moist. The heart is regular not accelerated. Lungs are clear to auscultation. The abdomen is obese there is a midline scar. The abdomen is soft but tender to palpation principally across the upper abdomen but there is no guarding or rebound. Bowel sounds are present. There are no high-pitched sounds or rushes. Medical Decision Making Shortly before 2:30 PM the patient announced that she had to leave immediately because a family member suffered an acute stroke. I told the patient I would send her home with medication to help mitigate her symptoms to include Bentyl, Pepcid, Zofran, and Phenergan suppositories. If this does not successfully control her symptoms she should return as soon as possible Assessment/Plan Epigastric abdominal pain (R10.13: Epigastric pain) Nausea in adult (R11.0: Nausea) Orders: dicyclomine, 20 mg = 1 tab(s), Oral, QID, # 12 tab(s), Refills(s) 0, Pharmacy: [facility], 162.5, cm, 05/22/24 13:09:00 EDT, Height/Length Dosing, 110.6, kg, 05/22/24 13:09:00 EDT, Weight Dosing dicyclomine, 20 mg = 2 mL, Injection, IntraMuscular, Once, Stop date 05/22/24 13:37:00 EDT, STAT, Start date 05/22/24 13:37:00 EDT, 05/22/24 13:37:00 EDT famotidine, 20 mg = 1 tab(s), Oral, BID, # 15 tab(s), Refills(s) 0, Pharmacy: [facility], 162.5, cm, 05/22/24 13:09:00 EDT, Height/Length Dosing, 110.6, kg, 05/22/24 13:09:00 EDT, Weight Dosing famotidine, 20 mg = 2 mL, Soln-IV, IV Push, Once, Stop date 05/22/24 13:37:00 EDT, STAT, Start date 05/22/24 13:37:00 EDT, 05/22/24 13:37:00 EDT ondansetron, 4 mg = 2 mL, Injection, IV Push, Once, Stop date 05/22/24 13:37:00 EDT, STAT, Start date 05/22/24 13:37:00 EDT, 05/22/24 13:37:00 EDT ondansetron, 4 mg = 1 tab(s), Oral, q8hr, # 10 tab(s), Refills(s) 0, Pharmacy: [facility], 162.5, cm, 05/22/24 13:09:00 EDT, Height/Length Dosing, 110.6, kg, 05/22/24 13:09:00 EDT, Weight Dosing promethazine, 25 mg = 1 supp, Rectal, q6hr, PRN as needed for nausea, Insert one per rectum every six hours as needed for nausea and vomiting, # 6 EA, Refills(s) 0, Pharmacy: [facility], 162.5, cm, 05/22/24 13:09:00 EDT, Height/Length Dosing, 110.6,... Sodium Chloride 0.9% intravenous solution, 1,000 mL, Soln-IV, IV, Once, Stop date 05/22/24 13:37:00 EDT, STAT, Start date 05/22/24 13:37:00 EDT, Infuse over 61, minute(s) Capillary Glucose POC Medications Administered Given dicyclomine 10 mg/mL Inj, 20 mg, IntraMuscular famotidine 10 mg/mL IV Kusum, 20 mg, IV Push NS 1000 ml Bolus, 1000 mL, IV ondansetron 4 mg/2 mL Inj, 4 mg, IV Push Disposition Plan Patient Discharge Condition Unchanged Discharge Disposition Patient had to leave because of the [facility] emergency Discharge Prescription List Prescriptions dicyclomine 20 mg Tab, 20 mg= 1 tab(s), Oral, QID Pepcid 20 mg Tab, 20 mg= 1 tab(s), Oral, BID Phenergan 25 mg Supp, 25 mg= 1 supp, Rectal, q6hr, PRN Zofran ODT 4 mg Tab-Dis, 4 mg= 1 tab(s), Oral, q8hr Follow-up With When Contact Information YANET JUNIOR Within 1 to 2 days [address] [place] [phone] Business (1) Additional Instructions: Return to ED if symptoms worsen Patient Education Nausea, Adult, Mlcd-as-Tnqp Abdominal Pain, Adult, Hvwn-zw-Jzsl Problem List/Past Medical History Ongoing Abnormal uterine bleeding Anxiety Coronary artery disease Depression Diabetes Diabetic neuropathy Fatty liver GERD (gastroesophageal reflux disease) Hemorrhoids History of VT (myocardial infarction) HTN (hypertension) Hyperlipidemia Hyperte (more content not included)... Normal [facility] Comment on above: Result Comment: Elec tronically Signed By: Liu HERRERA, Kalia\.br\Date and Time Signed: 05/22/24 14:33 EDT ED Patient Summaryon 025 ED Patient Summary ED Patient Summary [address] [address] Patient Discharge Instructions Person Information Name: TISH VARGAS Age: 43 Years Arrival Date: 05/22/2024 12:56:01 Discharge Diagnosis: Epigastric abdominal pain; Nausea in adult Primary Care Physician: YANET JUNIOR CNP Provider Information Primary Provider: Kalia Hatfield MD [employer] Teacher:None The exam and treatment you received in the Emergency Department were for an urgent problem and are not intended as complete care. It is important that you follow up with a doctor, nurse practitioner, or physician???s home care assistant for ongoing care. If your symptoms [...] With: Address: When: YANET JUNIOR [address] [place], [place] [phone] Business (1) Within 1 to 2 days Comments: Return to ED if symptoms worsen In the event that this physician does not participate in your insurance network, please consult with your insurance company to find a nearby participating provider. Patient Education Materials: Nausea, Adult, Cxhh-hp-Nhyn; Abdominal Pain, Adult, Rege-jw-Idhx A MESSAGE TO ALL PATIENTS REGARDING OPIOIDS PRESCRIPTION OPIOIDS: WHAT YOU NEED TO KNOW Prescription opioids can be used to help relieve oejckriz-vt-jyrkwf pain and are often prescribed following a [...] as well, even when taken as directed: ??? Tolerance???meaning you might need to take more of the medication for the same pain relief ??? Physical dependence???meaning you have symptoms of withdrawal when a medication is stopped ??? Increased sensitivity to pain ??? Constipation ??? Nausea, vomiting, and dry mouth ??? Sleepiness and dizziness ??? Confusion ??? Depression ??? Low levels of testosterone that can result in lower sex drive, energy, and strength ??? Itching and sweating RISKS ARE GREATER WITH: ??? History of drug misuse, substance use disorder, or overdose ??? Mental health conditions (such as depression or anxiety) ??? Sleep apnea ??? Older age (65 years and older) ??? Avoid alcohol while taking prescription opioids. Also, unless specifically advised by your health care provider, medications to avoid include: ??? Benzodiazepines (such as Xanax or Valium) ??? Muscle relaxants (such as Soma or Flexeril) ??? Hypnotics (such as Ambien or Lunesta) ??? Other prescription opioids KNOW YOUR OPTIONS Talk to your health care provider about ways to manage your pain that don???t involve prescription opioids. Some of these options may actually work better and have fewer risks and side effects. Options may include: ??? Pain relievers such as acetaminophen, ibuprofen, and naproxen ??? Some medication that are also used for depression or seizures ??? Physical therapy and exercise ??? Cognitive behavioral therapy, a psychological, goal-directed approach, in which patients learn how to modify physical, behavioral, and emotional triggers of pain and stress. IF YOU ARE PRESCRIBED OPIOIDS FOR PAIN: ??? Never take opioids in greater amounts or more often than prescribed. ??? Follow up with your primary health care provider. o Work together to create a plan on how to manage your pain. o Talk about ways to help manage your pain that don???t involve prescription opioids. o Talk about any and all concerns and side effects. ??? Help prevent misuse and abuse o Never sell or share prescription opioids. o Never use another person???s prescription opioids. ??? Store prescription opioids in a secure place and out of reach of others (this may include visitors, children, friends, and family). ??? Safely dispose of unused prescription opioids: Find your community drug take-back program or your pharmacy mail-back program, or flush them down the toilet, following guidance from the Food and Drug Administration (www.fda.gov/Drugs/Res ourcesForYou). ??? Visit www.cdc.gov/drugoverdo se to learn about the risks of opioids abuse and (more content not included)... [facility] ED Patient Summary ED Patient Summary [place] [id number] Patient Discharge Instructions Person Information Name: TISH VARGAS Age: 43 Years Arrival Date: 05/22/2024 12:56:01 Discharge Diagnosis: Epigastric abdominal pain; Nausea in adult Primary Care Physician: YANET JUNIOR CNP Provider Information Primary Provider: Kalia Hatfield MD [employer] Teacher:None The exam and treatment you received in the Emergency Department were for an urgent problem and are not intended as complete care. It is important that you follow up with a doctor, nurse practitioner, or physician???s home care assistant for ongoing care. If your symptoms [...] With: Address: When: YANET JUNIOR [address] [place], [place] [phone] Business (1) Within 1 to 2 days Comments: Return to ED if symptoms worsen In the event that this physician does not participate in your insurance network, please consult with your insurance company to find a nearby participating provider. Patient Education Materials: Nausea, Adult, Mcsw-mi-Qowt; Abdominal Pain, Adult, Xble-rn-Eouv A MESSAGE TO ALL PATIENTS REGARDING OPIOIDS PRESCRIPTION OPIOIDS: WHAT YOU NEED TO KNOW Prescription opioids can be used to help relieve yubwysof-kr-pzugkp pain and are often prescribed following a [...] as well, even when taken as directed: ??? Tolerance???meaning you might need to take more of the medication for the same pain relief ??? Physical dependence???meaning you have symptoms of withdrawal when a medication is stopped ??? Increased sensitivity to pain ??? Constipation ??? Nausea, vomiting, and dry mouth ??? Sleepiness and dizziness ??? Confusion ??? Depression ??? Low levels of testosterone that can result in lower sex drive, energy, and strength ??? Itching and sweating RISKS ARE GREATER WITH: ??? History of drug misuse, substance use disorder, or overdose ??? Mental health conditions (such as depression or anxiety) ??? Sleep apnea ??? Older age (65 years and older) ??? Avoid alcohol while taking prescription opioids. Also, unless specifically advised by your health care provider, medications to avoid include: ??? Benzodiazepines (such as Xanax or Valium) ??? Muscle relaxants (such as Soma or Flexeril) ??? Hypnotics (such as Ambien or Lunesta) ??? Other prescription opioids KNOW YOUR OPTIONS Talk to your health care provider about ways to manage your pain that don???t involve prescription opioids. Some of these options may actually work better and have fewer risks and side effects. Options may include: ??? Pain relievers such as acetaminophen, ibuprofen, and naproxen ??? Some medication that are also used for depression or seizures ??? Physical therapy and exercise ??? Cognitive behavioral therapy, a psychological, goal-directed approach, in which patients learn how to modify physical, behavioral, and emotional triggers of pain and stress. IF YOU ARE PRESCRIBED OPIOIDS FOR PAIN: ??? Never take opioids in greater amounts or more often than prescribed. ??? Follow up with your primary health care provider. o Work together to create a plan on how to manage your pain. o Talk about ways to help manage your pain that don???t involve prescription opioids. o Talk about any and all concerns and side effects. ??? Help prevent misuse and abuse o Never sell or share prescription opioids. o Never use another person???s prescription opioids. ??? Store prescription opioids in a secure place and out of reach of others (this may include visitors, children, friends, and family). ??? Safely dispose of unused prescription opioids: Find your community drug take-back program or your pharmacy mail-back program, or flush them down the toilet, following guidance from the Food and Drug Administration (www.fda.gov/Drugs/Res ourcesForYou). ??? Visit www.cdc.gov/drugoverdo se to learn about the risks of opioids abuse and (more content not included)... Normal [facility] Extra Blueon 05-22-2024 Tube Collected Plasma Yes Invalid Interpretation Code [facility] Comment on above: Performed By: #### 1 [id number] #### [facility] [address] [place] [address] Hep Func Panelon 05-22-2024 Albumin [Mass/Vol] 4.6 g/dL Normal 3.3-5.0 [facility] Comment on above: Performed By: #### 2 [id number] #### [facility] [address] [place] [address] Albumin/Globulin (S) [Mass conc ratio] 1.5 Normal 1.1-2.2 [facility] Comment on above: Performed By: #### 2 [id number] #### [facility] [address] [place] [address] ALP [Catalytic activity/Vol] 130 Int._Unit/L High 21-98 [facility] Comment on above: Performed By: #### 2 [id number] #### [facility] [address] [place] [address] ALT No additional P-5'-P [Catalytic activity/Vol] 10 Int._Unit/L Normal 6-46 [facility] Comment on above: Performed By: #### 2 [id number] #### [facility] [address] [place] [address] AST [Catalytic activity/Vol] 15 Int._Unit/L Normal 5-43 [facility] Comment on above: Performed By: #### 2 [id number] #### [facility] [address] [place] [address] Bilirubin [Mass/Vol] 0.3 mg/dL Normal 0.0-1.1 [facility] Comment on above: Performed By: #### 2 [id number] #### [facility] [address] [place] [address] Bilirubin.direct [Mass/Vol] 0.0 mg/dL Normal 0.0-0.4 [facility] Comment on above: Performed By: #### 2 [id number] #### [facility] [address] [place] [address] Bilirubin.indirect [Mass or moles/Vol] 0.3 mg/dL Normal 0.1-0.9 [facility] Comment on above: Performed By: #### 2 [id number] #### [facility] [address] [place] [address] Globulin (S) [Mass/Vol] 3.1 g/dL Normal 1.4-4.0 [facility] Comment on above: Performed By: #### 2 [id number] #### [facility] [address] [place] [address] Protein [Mass/Vol] 7.7 g/dL Normal 6.0-7.8 [facility] Comment on above: Performed By: #### 2 [id number] #### [facility] [address] [place] [address] Lipase Levelon 05-22-2024 Lipase [Catalytic activity/Vol] 25 U/L Normal 13-58 [facility] Comment on above: Performed By: #### 2 [id number] #### [facility] [address] [place] [address] eGFRon 05-22-2024 eGFR 82 mL/min/1.73 m2 Normal >=59 [facility] Comment on above: Performed By: #### 1 [id number] #### [facility] [address] [place] [address] EMG 2 Extremitieson 05-17-19 25 EMG/NCS BUE Normal study [facility] NVC 11-12 Nerveson 5 EMG/NCS BUE Normal study [facility] CBC w/ Auto Diffon 5 Basophils/100 WBC (Bld) 1.8 % Normal 0.0-2.0 [facility] Comment on above: Performed By: #### 2 [id number] #### [facility] [address] [place] [address] Erythrocyte distribution width (RBC) [Ratio] 15.2 % High 10.9-14.2 [facility] Comment on above: Performed By: #### 2 [id number] #### [facility] [address] [place] [address] Lymphocytes/100 WBC (Bld) 22.4 % Normal 14.0-50.0 [facility] Comment on above: Performed By: #### 2 [id number] #### [facility] [address] [place] [address] Neutrophils/100 WBC (Bld) 68.8 % Normal 36.0-75.0 [facility] Comment on above: Performed By: #### 2 [id number] #### [facility] [address] [place] [address] Platelet mean volume (Bld) [Entitic vol] 8.2 fL Normal 6.4-10.8 [facility] Comment on above: Performed By: #### 2 [id number] #### [facility] [address] [place] [address] Basophils/Leukocytes Auto (Bld) [Pure # fraction] 0.2 E9/L Normal 0.0-0.2 [facility] Comment on above: Performed By: #### 2 [id number] #### [facility] [address] [place] [address] Eosinophils (Bld) [#/Vol] 0.2 E9/L Normal 0.0-0.5 [facility] Comment on above: Performed By: #### 2 [id number] #### [facility] [address] [place] [address] Eosinophils/100 WBC (Bld) 2.2 % Normal 0.0-8.0 [facility] Comment on above: Performed By: #### 2 [id number] #### [facility] [address] [place] [address] Hematocrit (Bld) [Volume fraction] 45.0 % Normal 34.0-46.0 [facility] Comment on above: Performed By: #### 2 [id number] #### [facility] [address] [place] [address] Hemoglobin (Bld) [Mass/Vol] 15.4 g/dL Normal 12.0-16.0 [facility] Comment on above: Performed By: #### 2 [id number] #### [facility] [address] [place] [address] Lymphocytes (Bld) [#/Vol] 2.1 E9/L Normal 1.0-4.0 [facility] Comment on above: Performed By: #### 2 [id number] #### [facility] [address] [place] [address] MCH (RBC) [Entitic mass] 31.3 pg Normal 27.0-34.0 [facility] Comment on above: Performed By: #### 2 [id number] #### [facility] [address] [place] [address] MCHC (RBC) [Mass/Vol] 34.1 g/dL Normal 31.4-36.0 [facility] Comment on above: Performed By: #### 2 550051 #### [facility] [address] [place] [address] MCV (RBC) [Entitic vol] 91.7 fL Normal 80.0-100.0 [facility] Comment on above: Performed By: #### 2 [id number] #### [facility] [address] [place] [address] Monocytes (Bld) [#/Vol] 0.4 E9/L Normal 0.2-1.0 [facility] Comment on above: Performed By: #### 2 [id number] #### [facility] [address] [place] [address] Neutrophils (Bld) [#/Vol] 6.3 E9/L Normal 2.0-7.5 [facility] Comment on above: Performed By: #### 2 015990 #### [facility] [address] [place] [address] Platelet 259.0 E9/L Normal 150.0-500.0 [facility] Comment on above: Performed By: #### 2 [id number] #### [facility] [address] [place] [address] RBC (Bld) [#/Vol] 4.9 E12/L Normal 4.3-5.9 [facility] Comment on above: Performed By: #### 2 [id number] #### [facility] [address] [place] [address] WBC corrected for nucl RBC Auto (Bld) [#/Vol] 9.1 E9/L Normal 4.0-11.0 [facility] Comment on above: Performed By: #### 2 646576 #### [facility] [address] [place] [address] CHEMISTRYOrdered By: SYSTEM SYSTEM on 04-20-2024 25-hydroxyvitamin D3 [Mass/Vol] 8.2 ng/mL Low 30.0 - 100.0 ng/mL [facility] Albumin [Mass/Vol] 4.7 g/dL Normal 3.3 - 5.0 gm/dL [facility] Albumin/Globulin [Mass ratio] 1.6 {ratio} Normal 1.1 - 2.2 [facility] ALP [Catalytic activity/Vol] 121 [iU]/d High 21 - 98 Int._Unit/L [facility] ALT No additional P-5'-P [Catalytic activity/Vol] 6 [iU]/d Normal 6 - 46 Int._Unit/L [facility] Anion gap [Moles/Vol] 14 mmol/L Normal 6 - 16 mEq/L R [facility] AST [Catalytic activity/Vol] 13 [iU]/d Normal 5 - 43 Int._Unit/L [facility] Bilirubin [Mass/Vol] 0.5 mg/dL Normal 0.0 - 1 .1 mg/dL [facility] Calcium [Mass/Vol] 10.3 mg/dL Normal 8.9 - 11. 1 mg/dL [facility] Chloride [Moles/Vol] 102 mmol/L Normal 101 - 1 11 mmol/L [facility] Cholesterol [Mass/Vol] 126 mg/dL Normal 120 - 200 mg/dL [facility] Cholesterol in HDL [Mass/Vol] 47 mg/dL Invalid Interpretation Code [facility] Comment on above: Result Comment: '>= 60 LOW RISK' '<= 40 HIGH RISK' Cholesterol in LDL [Mass/Vol] 59 mg/dL Normal <=129mg/dL [facility] Cholesterol in VLDL [Mass/Vol] 22 mg/dL Normal 7 - 40 mg/dL [facility] CO2 [Moles/Vol] 27 mmol/L Normal 21 - 31 mmol/L [facility] Cobalamin (Vitamin B12) [Mass/Vol] 95 pg/mL Normal 50 - 1500 pg/mL [facility] Creatinine [Mass/Vol] 0.8 mg/dL Normal 0.5 - 1.3 mg/dL [facility] eGFR 94 mL/min/1.73 m2 Normal >=59mL/min /1 .73 m2 [facility] Free T4 [Mass/Vol] 0.78 ng/dL Normal 0.58 - 1. 64 ng/dL [facility] Globulin (S) [Mass/Vol] 2.9 g/dL Normal 1.4 - 4.0 gm/dL [facility] Glucose [Mass/Vol] 100 mg/dL Normal 55 - 199 mg/dL [facility] Potassium [Moles/Vol] 4.3 mmol/L Normal 3.5 - 5.3 mmol/L [facility] Protein [Mass/Vol] 7.6 g/dL Normal 6.0 - 7.8 gm/dL [facility] Sodium [Moles/Vol] 139 mmol/L Normal 135 - 145 mmol/L [facility] Triglyceride [Mass/Vol] 108 mg/dL Normal <=149mg/dL [facility] TSH Qn 2.40 m[IU]/L Normal 0.34 - 5.60 mcIU/mL [facility] Urea nitrogen [Mass/Vol] 17 mg/dL Normal 5 - 21 mg/dL [facility] Urea nitrogen/Creatinine [Mass ratio] 21 mg/mg High 10 - 20 [facility] CMPon 04-20-2024 Albumin [Mass/Vol] 4.7 g/dL Normal 3.3-5.0 [facility] Comment on above: Performed By: #### 2 [id number] #### [facility] [address] [place] [address] Albumin/Globulin (S) [Mass conc ratio] 1.6 Normal 1.1-2.2 [facility] Comment on above: Performed By: #### 2 [id number] #### [facility] [address] [place] [address] ALP [Catalytic activity/Vol] 121 Int._Unit/L High 21-98 [facility] Comment on above: Performed By: #### 2 [id number] #### [facility] [address] [place] [address] ALT No additional P-5'-P [Catalytic activity/Vol] 6 Int._Unit/L Normal 6-46 [facility] Comment on above: Performed By: #### 2 [id number] #### [facility] [address] [place] [address] Anion gap [Moles/Vol] 14 mmol/L Normal 6-16 [facility] Comment on above: Performed By: #### 2 599285 #### [facility] [address] [place] [address] AST [Catalytic activity/Vol] 13 Int._Unit/L Normal 5-43 [facility] Comment on above: Performed By: #### 2 [id number] #### [facility] [address] [place] [address] Bilirubin [Mass/Vol] 0.5 mg/dL Normal 0.0-1.1 [facility] Comment on above: Performed By: #### 2 484711 #### [facility] [address] [place] [address] Calcium [Mass/Vol] 10.3 mg/dL Normal 8.9-11.1 [facility] Comment on above: Performed By: #### 2 864621 #### [facility] [address] [place] [address] Chloride [Moles/Vol] 102 mmol/L Normal 101-111 [facility] Comment on above: Performed By: #### 2 117142 #### [facility] [address] [place] [address] CO2 [Moles/Vol] 27 mmol/L Normal 21-31 [facility] Comment on above: Performed By: #### 2 741342 #### [facility] [address] [place] [address] Creatinine [Mass/Vol] 0.8 mg/dL Normal 0.5-1.3 [facility] Comment on above: Performed By: #### 2 432453 #### [facility] [address] [place] [address] Globulin (S) [Mass/Vol] 2.9 g/dL Normal 1.4-4.0 [facility] Comment on above: Performed By: #### 2 [id number] #### [facility] [address] [place] [address] Glucose [Mass/Vol] 100 mg/dL Normal 55-199 [facility] Comment on above: Performed By: #### 2 012422 #### [facility] [address] [place] [address] Potassium [Moles/Vol] 4.3 mmol/L Normal 3.5-5.3 [facility] Comment on above: Performed By: #### 2 670844 #### [facility] [address] [place] [address] Protein [Mass/Vol] 7.6 g/dL Normal 6.0-7.8 [facility] Comment on above: Performed By: #### 2 532956 #### [facility] [address] [place] [address] Sodium [Moles/Vol] 139 mmol/L Normal 135-145 [facility] Comment on above: Performed By: #### 2 [id number] #### [facility] [address] [place] [address] Urea nitrogen [Mass/Vol] 17 mg/dL Normal 5-21 [facility] Comment on above: Performed By: #### 2 [id number] #### [facility] [address] [place] [address] Urea nitrogen/Creatinine [Mass ratio] 21 No Units High 10-20 [facility] Comment on above: Performed By: #### 2 [id number] #### [facility] [address] [place] [address] COAGULATIONOrdered By: Tali Steele on 04-20-2024 aPTT Coag (PPP) [Time] 29.4 s Normal 25.1 - 36.5 second(s) [facility] Auto Coag Comment on above: Interpretive Data: [...] the same coagulation reagent and instrumentation as [facility]. Currently there are no coagulation studies available worldwide for children to 14 days, and no normal ranges. Heparin therapeutic range (represented by Anti-Factor Xa activity of 0.2 - 0.4 U/mL) corresponds to PTT of 56.6 - 109.0 sec. INR Coag (PPP) [Relative time] 0.83 {INR} Invalid Interpretation Code [facility] Comment on above: Interpretive Data: I NR results are specifically intended to assess patients stabilized on long-term Anticoagulation therapy suggested INR s Less Intensive Anticoagulation 2.0 3.0 Conventional Range 3.0 4.5 PT Coag (PPP) [Time] 9.3 s Low 9.4 - 1 2.5 second(s) [facility] Auto Coag Comment on above: Interpretive Data: [...] the same coagulation reagent and instrumentation as [facility]. Currently there are no coagulation studies available worldwide for children to 14 days, and no normal ranges. [facility] CBC W/ AUTO DIFFon -0 5-2024 EOSINOPHILS/100 LEUKOCYTES:NFR:PT:BLD :QN:AUTOMATED COUNT 2.2 % 0.0 - 8.0 % [facility] EOSINOPHILS:NCNC:PT:B LD:QN: 0.2 [facility] BASOPHILS/LEUKOCYTES: NFR.DF:PT:BLD:QN:AUTO MATED COUNT 0.2 [facility] ERYTHROCYTE MEAN CORPUSCULAR HEMOGLOBIN CONCENTRATION:MCNC:PT :RBC:QN 34.1 [facility] ERYTHROCYTE MEAN CORPUSCULAR HEMOGLOBIN:ENTMASS:PT :RBC:QN 31.3 pg 27.0 - 34.0 pg [facility] ERYTHROCYTE MEAN CORPUSCULAR VOLUME:ENTVOL:PT:RBC: QN:AUTOMATED COUNT 91.7 fL 80.0 - 100.0 fL [facility] ERYTHROCYTES:NCNC:PT: BLD:QN:AUTOMATED COUNT 4.9 [facility] HEMOGLOBIN:MCNC:PT:BL D:QN: 15.4 [facility] LEUKOCYTES 9.1 [facility] MONOCYTES:NCNC:PT:BLD :QN:AUTOMATED COUNT 0.4 [facility] NEUTROPHILS:NCNC:PT:B LD:QN:AUTOMATED COUNT 6.3 [facility] Hematocrit (Bld) [Volume fraction] 45 % 34.0 - 46.0 % [facility] Interpretation and review of laboratory results Abnormal [facility] LYMPHOCYTES:NCNC:PT:B LD:QN: 2.1 [facility] Platelets (Bld) [#/Vol] 259 10*3/uL [facility]-20-2024 Free T4 [Mass/Vol] 0.78 ng/dL Normal 0.58-1.64 [facility] Comment on above: Performed By: #### 2 [id number] #### [facility] [address] [place] [address] HEMATOLOGYOrdered By: SYSTEM SYSTEM on 04-20-2024 Basophils/100 WBC (Bld) 1.8 % Normal 0.0 - 2.0 % [facility] Basophils/Leukocytes Auto (Bld) [Pure # fraction] 0.2 E9/L Normal 0.0 - 0.2 E9/L [facility] Eosinophils (Bld) [#/Vol] 0.2 E9/L Normal 0.0 - 0.5 E9/L [facility] Eosinophils/100 WBC (Bld) 2.2 % Normal 0.0 - 8.0 % [facility] Erythrocyte distribution width (RBC) [Ratio] 15.2 % High 10.9 - 14.2 % [facility] Hematocrit (Bld) [Volume fraction] 45.0 % Normal 34.0 - 46.0 % [facility] Hemoglobin (Bld) [Mass/Vol] 15.4 g/dL Normal 12.0 - 16.0 gm/dL [facility] Lymphocytes (Bld) [#/Vol] 2.1 E9/L Normal 1.0 - 4.0 E9/L [facility] Lymphocytes/100 WBC (Bld) 22.4 % Normal 14.0 - 50.0 % [facility] MCH (RBC) [Entitic mass] 31.3 pg Normal 27.0 - 34.0 pg [facility] MCHC (RBC) [Mass/Vol] 34.1 g/dL Normal 31.4 - 36.0 gm/dL [facility] MCV (RBC) [Entitic vol] 91.7 fL Normal 80.0 - 100.0 fL [facility] Monocytes (Bld) [#/Vol] 0.4 E9/L Normal 0.2 - 1.0 E9/L [facility] Monocytes/100 WBC (Bld) 4.8 % Normal 4.0 - 14.0 % [facility] Neutrophils (Bld) [#/Vol] 6.3 E9/L Normal 2.0 - 7.5 E9/L [facility] Neutrophils/100 WBC (Bld) 68.8 % Normal 36.0 - 75.0 % [facility] Platelet 259.0 E9/L Normal 150.0 - 500.0 E9/L [facility] Platelet mean volume (Bld) [Entitic vol] 8.2 fL Normal 6.4 - 10.8 fL [facility] RBC (Bld) [#/Vol] 4.9 E12/L Normal 4.3 - 5.9 E12/L [facility] WBC corrected for nucl RBC Auto (Bld) [#/Vol] 9.1 E9/L Normal 4.0 - 11.0 E9/L [facility] Lipid Panelon 04-20-2024 Cholesterol [Mass/Vol] 126 mg/dL Normal 120-200 [facility] Comment on above: Performed By: #### 2 [id number] #### [facility] [address] [place] [address] Cholesterol in HDL [Mass/Vol] 47 mg/dL Invalid Interpretation Code [facility] Comment on above: Result Comment: '>= 60 LOW RISK' '<= 40 HIGH RISK' Performed By: #### 2 [id number] #### [facility] [address] [place] [address] Cholesterol in LDL [Mass/Vol] 59 mg/dL Normal <=129 [facility] Comment on above: Performed By: #### 2 [id number] #### [facility] [address] [place] [address] Cholesterol in VLDL [Mass/Vol] 22 mg/dL Normal 7-40 [facility] Comment on above: Performed By: #### 2 [id number] #### [facility] [address] [place] [address] Triglyceride [Mass/Vol] 108 mg/dL Normal <=149 [facility] Comment on above: Performed By: #### 2 [id number] #### [facility] [address] [place] [address] PT & PTTon 04-20-2024 aPTT Coag (PPP) [Time] 29.4 second(s) Normal 25.1-36.5 [facility] Comment on above: Result Comment: Para [...] the same coagulation reagent and instrumentation as [facility]. Currently there are no coagulation studies available worldwide for children to 14 days, and no normal ranges. Heparin therapeutic range (represented by Anti-Factor Xa activity of 0.2 - 0.4 U/mL) corresponds to PTT of 56.6 - 109.0 sec. Performed By: #### 1 [id number] #### [facility] [address] [place] [address] INR Coag (PPP) [Relative time] 0.83 {INR} Invalid Interpretation Code [facility] Comment on above: Result Comment: INR results are specifically intended to assess patients stabilized on long-term Anticoagulation therapy suggested INR???s ???Less Intensive Anticoagulation??? 2.0 ??? 3.0 Conventional Range 3.0 ??? 4.5 Performed By: #### 1 [id number] #### [facility] [address] [place] [address] PT Coag (PPP) [Time] 9.3 second(s) Low 9.4-12.5 [facility] Comment on above: Result Comment: 15 d ays - 4 weeks 1 - 5 months 6 -11 months 1 ??? 5 years 6 ??? 10 years 11 -17 years Mean: 11.2 (9.5 ??? 12.6) Mean: 11.0 (9.7 ??? 12.8) Mean: 11.0 (9.8 ??? 13.0) Mean: 11.3 (9.9 ??? 13.4) Mean: 11.7 (10.0 ??? 14.6) Mean: 11.8 (10.0 - 14.1) Pediatric Reference ranges were obtained from a study by yahaira Turk al. prepared from 1437 samples obtained at 7 different centers using the same coagulation reagent and instrumentation as [facility]. Currently there are no coagulation studies available worldwide for children to 14 days, and no normal ranges. Performed By: #### 1 [id number] #### [facility] [address] [place] [address] TSHon 04-20-2024 TSH Qn 2.40 m[IU]/L Normal 0.34-5.60 [facility] Comment on above: Performed By: #### 2 [id number] #### [facility] [address] [place] [address] Vit B12on 04-20-2024 Cobalamin (Vitamin B12) [Mass/Vol] 95 pg/mL Normal 50-1500 [facility] Comment on above: Performed By: #### 2 [id number] #### [facility] [address] [place] [address] Vitamin D 25 Hydroxyon 04-20 25-hydroxyvitamin D3 [Mass/Vol] 8.2 ng/mL Low 30.0-100.0 [facility] Comment on above: Performed By: #### 5 [id number] #### [facility] [address] [place] [address] eGFRon 04-20-2024 eGFR 94 mL/min/1.73 m2 Normal >=59 [facility] Comment on above: Performed By: #### 1 [id number] #### [facility] [address] [place] [address] CT Abdomen/Pelvis w/ Contras ton 01-13-2024 CT Abdomen/Pelvis w/ Contrast Exam Date/Time: 01/13/2024 07:28 EDT Reason for [...] 100 Oral contrast amount in ml's: 900 Normal [facility] BMPon 01-02-2024 Calcium [Mass/Vol] 9.8 mg/dL Normal 8.9-11.1 [facility] Comment on above: Performed By: #### 2 [id number] #### [facility] [address] [place] [address] Chloride [Moles/Vol] 105 mmol/L Normal 101-111 [facility] Comment on above: Performed By: #### 2 [id number] #### [facility] [address] [place] [address] CO2 [Moles/Vol] 27 mmol/L Normal 21-31 [facility] Comment on above: Performed By: #### 2 [id number] #### [facility] [address] [place] [address] Creatinine [Mass/Vol] 0.8 mg/dL Normal 0.5-1.3 [facility] Comment on above: Performed By: #### 2 [id number] #### [facility] [address] [place] [address] Glucose [Mass/Vol] 112 mg/dL Normal 55-199 [facility] Comment on above: Performed By: #### 2 022593 #### [facility] [address] [place] [address] Potassium [Moles/Vol] 4.1 mmol/L Normal 3.5-5.3 [facility] Comment on above: Performed By: #### 2 [id number] #### [facility] [address] [place] [address] Sodium [Moles/Vol] 138 mmol/L Normal 135-145 [facility] Comment on above: Performed By: #### 2 [id number] #### [facility] [address] [place] [address] Urea nitrogen [Mass/Vol] 15 mg/dL Normal 5-21 [facility] Comment on above: Performed By: #### 2 [id number] #### [facility] [address] [place] [address] Anion gap [Moles/Vol] 10 mmol/L Normal 6-16 [facility] Comment on above: Performed By: #### 2 [id number] #### [facility] [address] [place] [address] Urea nitrogen/Creatinine [Mass ratio] 19 No Units Normal 10- [facility] Comment on above: Performed By: #### 2 [id number] #### [facility] [address] [place] [address] CHEMISTRYOrdered By: SYSTEM SYSTEM on 01-02-2024 Anion gap [Moles/Vol] 10 mmol/L Normal 6 - 16 mEq/L R [facility] Chem Calcium [Mass/Vol] 9.8 mg/dL Normal 8.9 - 11. 1 mg/dL Remisol Chem Chloride [Moles/Vol] 105 mmol/L Normal 101 - 1 11 mmol/L Remisol Chem CO2 [Moles/Vol] 27 mmol/L Normal 21 - 31 mmol/L Remisol Chem Creatinine [Mass/Vol] 0.8 mg/dL Normal 0.5 - 1.3 mg/dL Remisol Chem eGFR 94 mL/min/1.73 m2 Normal >=59mL/min /1 .73 m2 Remisol Chem Glucose [Mass/Vol] 112 mg/dL Normal 55 - 199 mg/dL Remisol Chem Potassium [Moles/Vol] 4.1 mmol/L Normal 3.5 - 5.3 mmol/L Remisol Chem Sodium [Moles/Vol] 138 mmol/L Normal 135 - 145 mmol/L Remisol Chem Urea nitrogen [Mass/Vol] 15 mg/dL Normal 5 - 21 mg/dL Remisol Chem Urea nitrogen/Creatinine [Mass ratio] 19 mg/mg Normal 10 - 20 Remisol Chem CHEMISTRYOrdered By: Winnie Ordaz on 01-02-2024 HbA1c (Bld) [Mass fraction] 5.9 % Normal <=5.9% [facility] ChemAutoSS [facility] BMPon 01-02-2024 [facility] ANION GAP:SCNC:PT:SER/PLAS: QN: 10 [facility] UREA NITROGEN/CREATININE:M RTO:PT:SER/PLAS:QN: 19 [facility] EGFRon 01-02-2024 GFR/1.73 sq M.predicted CKD-EPI (S/P/Bld) [Vol rate/Area] 94 - PINF [facility] [id number] 01-02-2024 HbA1c (Bld) [Mass fraction] 5.9 % Normal <=5.9 [facility] Comment on above: Performed By: #### [id number] #### [facility] [address] [place] [address] No Panel Informationon 01-01 Original Ordering Provider: FAIZAN JUNIOR CLINISYNC [facility] eGFRon 01-02-2024 eGFR 94 mL/min/1.73 m2 Normal >=59 [facility] Comment on above: Performed By: #### 1 [id number] #### [facility] [address] [place] [address] ED Note-Physicianon 10-30-19 ED Note-Physician ED Note-Physician Basic Information Time Seen: Amy Lius PA-C 10/29/2023 21:56 Chief Complaint Pain to labia from potential stich since this AM. Tumors removed from labia 3-4 weeks ago. Pt states there are internal stitches. History of Present Illness 43-year-old female presents to the ER with labial pain and concern for exposed stitch. Patient recently underwent excision of epidermoid cyst of the labia, states today she felt a stitch poking out which is irritating and painful. No fevers or chills. No drainage. Review of Systems All organ systems are reviewed. Pertinent positive and negative findings as mentioned in the HPI. Physical Exam Vitals & Measurements T: 36.5 ?C(Tympanic) HR: 91(Peripheral) RR: 16 BP: 98/75 SpO2: 96% HT: 162.5 cm WT: 104 kg BMI: 39.38 GENERAL APPEARANCE: Well developed, well nourished, alert and cooperative, and appears to be in no acute distress. HEAD: normocephalic, atraumatic EYES: PERRL, EOMI. Vision is grossly intact. EARS: External auditory canals clear, hearing grossly intact. NOSE: No nasal discharge. THROAT: Oral cavity and pharynx normal. Oral mucosa moist. : Exam performed with female nurse cigar head puncher in the room. Patient does have evidence of a stitch granuloma of the left labia, mild irritation without any purulent drainage, fluctuance appreciated. MUSCULOSKELETAL: Adequately aligned spine. ROM intact spine and extremities. NEUROLOGICAL: CN grossly intact. Strength and sensation symmetric and intact throughout. SKIN: Skin normal color, texture and turgor with no lesions or eruptions. Assessment/Plan 1. Stitch granuloma (T81.89XA: Other complications of procedures, not elsewhere classified, initial encounter) Orders: bacitracin topical, 1 anna, Ointment, Topical, Once, Stop date 10/29/23 22:45:00 EDT, STAT, Start date 10/29/23 22:45:00 EDT mupirocin topical, 1 anna, Topical, TID, 15 gram, Refill(s) 0, [facility] [address], 162.5, cm, 10/29/23 21:55:00 EDT, Height/Length Dosing, 104, kg, 10/29/23 21:55:00 EDT, Weight Dosing 43-year-old female presents to the ER with complaints of states granuloma after recent surgical excision of epidermoid cyst of the labia. In the ER patient is afebrile vital signs are stable, no acute distress. On exam there is evidence of stitch granuloma. Discussed attempting to excise the stitch versus supportive care with sitz bath's and warm compresses. Patient elects to go with conservative management at this time. Patient instructed to follow-up with her SERVICE LINE COORDINATOR and is to return to the ER with any new or worsening symptoms. Patient voices understanding and is agreeable to plan. Medications Administered Given bacitracin top 500 units/g Oint PACKET, 1 anna, Topical Disposition Plan Patient Discharge Condition improved, stable Discharge Disposition to home Discharge Prescription List Prescriptions mupirocin Top 2% Crm, 1 anna, Topical, TID Follow-up With When Contact Information Vanita Richardson In 3 days 11/01/2023 EDT [address] [address] Business (1) Additional Instructions: Patient Education How to Take a Sitz Bath Bartholin's Cyst Attestation Patient was treated and evaluated by the Physician Tax Representative. The attending physician was in the Emergency Department at all times and supervised care. The case was discussed with the attending physician and diagnostics were reviewed as needed. Problem List/Past Medical History Ongoing Abnormal uterine bleeding Anxiety Coronary artery disease Depression Diabetes Diabetic neuropathy Fatty liver GERD (gastroesophageal reflux disease) Hemorrhoids History of VT (myocardial infarction) HTN (hypertension) Hyperlipidemia Hypertension Insomnia Labial abscess Left ovarian cyst Narcotic abuse Obesity, morbid TRUONG on CPAP PCOS (polycystic ovarian syndrome) Presence of stent in coronary artery Smoker Vulvar mass Vulvar pain Historical CAD - Coronary artery disease DM type 2, goal HbA1c < 7% Myocardial infarction Nicotine abuse PCOS - Polycystic ovarian syndrome renal calculi Smoker 15-SEP-2013 12:37:00<$> Uterine fibroid Procedure/Surgical History PCI (08/20/2018), Abdominal hysterectomy (2018), Appendectomy (2018), Bilateral salpingo-oophorectomy, x2, Cardiac catheterization, Cardiac Stent, Dilation and curettage, Hernia repair x5, Hysterectomy, Incision AND drainage, kidney stone removal, lithotripsy. Medications Inpatient No active inpatient medications Home Albuterol (Eqv-Ventolin HFA) 90 mcg/inh inhalation aerosol, 2 puff(s), Inhalation, q6hr albuterol HFA 90 mcg/inh MDI, 2 puff(s), Inhalation, QID, PRN aspirin 81 mg Chew Tab, 81 mg= 1 tab(s), Chewed, Daily atorvastatin 80 mg Tab, 80 mg= 1 tab(s), Oral, Daily Effexor XR 150 mg Cap-ER, 150 mg= 1 cap(s), Oral, Daily gabapentin 300 mg Cap, 300 mg= 1 cap(s), Oral, TID Jardiance 25 mg oral tablet, 25 mg= 1 ta (more content not included)... Normal [facility] Comment on above: Result Comment: Elec tronically Signed By: Amy Luis PA-C\.br\Date and Time Signed: 10/30/23 00:20 EDT\.br\Electronically Co-Signed By: Janes Bowles DO\.br\Date and Time Co-Signed: 10/30/23 02:59 EDT ED Clinical Summaryon 2023 ED Clinical Summary ED Clinical Summary [address] [id number] ED Clinical Summary Person Information Name: TISH VARGAS [place] Age: 43 Years : 1980 Sex: Female Language: Turkish PCP: YANET JUNIOR CNP Marital Status: Phone: [phone] Visit Id: Visit Reason: Medical problem - minor; Post surgical problem; INTERNAL STITCH COMING OUT PAINFUL Speciality: Acuity: 3 Enc Type: Emergency Med Service: Emergency Arrival: 10/29/2023 21:45:44 Discharge: 10/29/2023 23:14:43 LOS: 000 01:29 Checkin: 10/29/2023 21:45:44 Checkout: 10/29/2023 23:14:43 Dispo Type: Home (Routine DC) EVENTS: Event Name Event Status Request Date/Time Start Date/Time Complete Date/Time Arrive Complete 10/29/2023 21:45:44 10/29/2023 21:45:44 10/29/2023 21:45:44 Document Home Meds Request 10/29/2023 21:45:44 Triage Complete 10/29/2023 21:45:44 10/29/2023 21:55:07 10/29/2023 21:55:07 Registration Complete 10/29/2023 21:49:01 10/29/2023 21:49:01 10/29/2023 21:49:01 Reg Complete Request 10/29/2023 21:49:01 Reg Bed Request Complete 10/29/2023 21:49:01 10/29/2023 21:49:01 10/29/2023 21:49:01 Isolation Screening Request 10/29/2023 21:55:08 30 Day Return Request 10/29/2023 21:55:08 Bed Assign Complete 10/29/2023 21:55:38 10/29/2023 21:55:38 10/29/2023 21:55:38 Dr Exam Complete 10/29/2023 21:55:38 10/29/2023 21:56:03 10/29/2023 21:56:03 RN Exam Complete 10/29/2023 21:55:38 10/29/2023 22:32:16 10/29/2023 22:32:16 Registration Request 10/29/2023 21:56:03 Dr Exam Complete 10/29/2023 22:01:25 10/29/2023 22:01:25 10/29/2023 22:01:25 Meds Admin Complete 10/29/2023 22:46:33 10/29/2023 23:13:45 Discharge Complete 10/29/2023 22:47:20 10/29/2023 23:14:51 10/29/2023 23:14:51 Transfer Complete 10/29/2023 23:14:51 10/29/2023 23:14:51 10/29/2023 23:14:51 AD[address]: [address] [facility] [id number] PHYS DOC NOTES: MEDICAL INFORMATION: Prescriptions Given: New Medications [facility] [address] [address], [address], [place] [phone], [phone] mupirocin topical (mupirocin Top 2% Crm) 1 Application Topical 3 times a day. Refills: 0. Medications to Continue with No Changes Other Medications acetaminophen-oxycodon e (Percocet 5 mg-325 mg oral tablet) 1 Tablets By Mouth every 6 hours. Refills: 0. albuterol (Albuterol (Eqv-Ventolin HFA) 90 mcg/inh inhalation aerosol) 2 Puffs Inhalation every 6 hours. albuterol (albuterol HFA 90 mcg/inh MDI) 2 [...] Capsules By Mouth 3 times a day. losartan (losartan 25 mg Tab) 1 Tablets [...] ointment) Rectal q12hr. Refills: 0. ondansetron (Zofran ODT 4 mg Tab-Dis) 1 Tablets By Mouth every 8 hours as needed Nausea/Vomiting. Refills: 0. venlafaxine (Effexor XR 150 mg Cap-ER) 1 Capsules By Mouth every day. PATIENT EDUCATION INFORMATION: Instructions: How to Take a Sitz Bath; Bartholin's Cyst Follow up: With: Address: When: Kashif [address]agan, [place] [phone] Business (1) In 3 days 11/01/2023 DIAGNOSIS: 1:Stitch granuloma Normal [facility] ED Patient Summaryon 024 ED Patient Summary ED Patient Summary [address] [address] Patient Discharge Instructions Person Information Name: TISH VARGAS Age: 43 Years Arrival Date: 10/29/2023 21:45:44 Discharge Diagnosis: 1:Stitch granuloma Primary Care Physician: YANET JUINOR CNP Provider Information Primary Provider: Janes Bowles DO [employer] Teacher:Amy Luis PA-C The exam and treatment you received in the Emergency Department were for an urgent problem and are not intended as complete care. It is important that you follow up with a doctor, nurse practitioner, or physician?s home care assistant for ongoing care. If your symptoms become worse or you do not improve as expected and you are unable to reach your usual health care provider, you should return to the Emergency Department. We are available 24 hours a day. ALICIATISH has been given the following list of patient education materials, prescriptions and follow-up instructions: Follow-up Instructions: With: Address: When: [address], Kashif D, [address] [address] Business (1) In 3 days 11/01/2023 In the event that this physician does not participate in your insurance network, please consult with your insurance company to find a nearby participating provider. Patient Education Materials: How to Take a Sitz Bath; Bartholin's Cyst A MESSAGE TO ALL PATIENTS REGARDING OPIOIDS PRESCRIPTION OPIOIDS: WHAT YOU NEED TO KNOW Prescription opioids can be used to help relieve jhlyzywq-og-mcoazl pain and are often prescribed following a [...] guidance from the Food and Drug Administration (www.fda.gov/Drugs/Res ourcesForYou). ? Visit www.cdc.gov/drugoverdo se to learn about the risks of opioids abuse and overdose. ? If you believe you may be struggling with addiction, tell your health caretaker resort and ask for guidance or call [facility] (more content not included)... Normal [facility] Surgical Pathology Reporton 2023 Surgical Pathology Report [facility] [address] [place] [address]- Surgical Pathology Report Collected Date/Time: 10/10/2023 08:46 EDT Pathologist: Sushil Wright MD Received Date/Time: 10/12/2023 10:00 EDT Vanita Richardson DO, DO, Mona J. 07 Surgical Pathology Report - 2023 14:32 EDT - Auth (Verified) Final Diagnosis LEFT VULVAR MASS, EXCISION: - Ruptured epidermal inclusion cyst with extensive fat necrosis. - No evidence of malignancy identified. - GMS stain negative for fungal elements - See Comment. (Electronic Signature) Yan. Adriana MD 2023 14:32 Diagnosis Comment AE1/AE3 immunohistochemical stain was performed on the tissue block A2 with appropriate staining control and supports the above diagnosis. Clinical Information Pre-Op Diagnosis: Left vulvar mass Procedure: Left vulvar mass excision Post-Op Diagnosis: Left vulvar lump Specimen(s) Received Left vulvar mass Gross Description Received in formalin labeled with patient name, number, and left vulvar mass is an ovoid fragment of burgos/light yellow/light guerra slightly firm wrinkled rubbery tissue measuring 2.9 x 1.9 x 1.9 cm. The outer surface has a partially smooth and rough wrinkled dull shine appearance. The burgos/guerra wrinkled tissue there is an ovoid burgos/white plaque-like lesion measuring 0.4 x 0.3 cm. The specimen is serially sectioned and has a light yellow/burgos firm granular appearance. The specimen is entirely submitted in a total of four cassettes. (DC) DC:MCA Microscopic Description Microscopic examination is performed. The use of one or more reagents in the above tests is regulated as an analyte specific reagent (ASR). The test or tests are ordered following initial H&E microscopic examination. The performance characteristics were determined by the Laboratory of [facility]. They have not been cleared or approved by the US Food and Drug Administration. The FDA has determined that such clearance or approval is not necessary. These tests are used for clinical purposes. They should not be regarded as investigational or for research. Appropriate positive and negative controls are performed and are acceptable. Normal [facility] Comment on above: Performed By: #### [id number] #### [facility] [address] [place] [address] Main OR Intraoperative Recor don 10-12-2023 Main OR Intraoperative Record Main OR Intraoperative Record IntraOp Document Type FT Summary Primary Physician: Vanita Richardson DO Finalized Date/Time: 10/12/23 09:48:50 Pt. Name: TISH VARGAS/Sex: 1980 Female Med Rec #: [id number] Physician: Vanita Richardson DO Financial #: [id number] Pt. Type: I Room/Bed: N410/01 Admit/Disch: 10/08/23 14:54:31 - 10/10/23 13:30:00 Institution: Case Times FT Entry 1 Patient Times In Room 10/10/23 07:53:00 Out Room 10/10/23 09:07:00 Procedure Times Start 10/10/23 08:14:00 Stop 10/10/23 09:00:00 Anesthesia Times Start 10/10/23 07:53:00 Stop 10/10/23 09:07:00 Last Modified By: Isaac Vickers Ii 10/10/23 09:11:13 General Comments: 10/12/23 Chart opened to review and send charges LRoth CSFA Case Attendance FT Entry 1 Entry 2 Entry 3 Case Attendee Hieu Mosley Jr, DO, DO, Donald Ballard CST Role Performed Anesthesiologist of Surgeon - Primary SPECIAL EVENTS DRIVER/SA Record Time In 10/10/23 07:53:00 10/10/23 07:53:00 10/10/23 07:53:00 Time Out 10/10/23 09:07:00 10/10/23 09:07:00 10/10/23 09:07:00 Procedure BARTHOLIN CYST BARTHOLIN CYST BARTHOLIN CYST EXCISION(.) EXCISION(.) EXCISION(.) Comments ASSIST Last Modified By: Isaac Vickers Ii, Alfons Ii F Letrondo, Alfons Ii F 10/10/23 09:11:14 10/10/23 09:11:14 10/10/23 09:11:14 Entry 4 Entry 5 Case Attendee Silvestre Lu Alfons Ii F Role Performed Scrub - Primary Parts Salesperson - Primary Time In 10/10/23 07:53:00 10/10/23 07:53:00 Time Out 10/10/23 09:07:00 10/10/23 09:07:00 Procedure BARTHOLIN CYST BARTHOLIN CYST EXCISION(.) EXCISION(.) Comments Last Modified By: Isaac Vickers Ii, Alfons Ii F 10/10/23 09:11:14 10/10/23 09:11:14 Perioperative Protocols FT Pre-Care Text: Implements protective measures prior to operative or invasive procedure, confirms identity before the operative or invasive procedure, verifies operative procedure, surgical site, and laterality Entry 1 Procedure(s) BARTHOLIN CYST Patient Identity Birthday, ID Band EXCISION(.) Verified (select at Check, Patient least 2): Participation Consents / H and P Anesthesia Consent, Operative Site N/A Verified H&P, Surgery/Procedure Marking Verified Consent, Transfusion Consent Surgical Site Yes Laterality Verified Yes Verified Procedure Verified Yes Correct Patient Yes Position Verified Availability Equipment, Medication Prep Dry No Verified (If Applicable) PreOp Antibiotic Yes Time Out Dimitri Dodd DO, Hieu Camacho, Given Participants Dylan PIERCE, Johnny Winters CST, Tabitha Bennett Kendall R, Isaac Vickers Ii Time Out Complete 10/10/23 08:14:00 Outcomes Met? Yes Last Modified By: Isaac Vickers Ii 10/10/23 08:18:31 Post-Care Text: The patient is free from signs and symptoms of injury caused by extraneous objects Allergy Information FT Pre-Care Text: Verifies allergies Entry 1 Allergies Reviewed? Yes Allergies Reviewed Self/Patient With Outcomes Met? Yes Last Modified By: Isaac Vickers Ii 10/10/23 08:18:38 Post-Care Text: The patient received appropriate medication(s) safely administered during the perioperative period Surgical Procedures FT Entry 1 Procedure Description Procedure BARTHOLIN CYST EXCISION Modifiers . Surgeon Description LEFT VULVAR LUMP EXCISION REMOVAL Primary Procedure Yes Primary Surgeon Hieu Parish MD Start 10/10/23 08:14:00 Stop 10/10/23 09:00:00 Anesthesia Type General Surgical Service Obstetric Gynecology Wound Class 2 - Clean-Contaminated Last Modified By: Isaac Vickers Ii 10/10/23 09:11:16 General Case Data FT Pre-Care Text: Classifies surgical wound, implements aseptic technique, initiates traffic control Entry 1 Case Information OR OR 2 FT Case Level Level 2 Wound Class 2 - Clean-Contaminated Specialty Obstetric Gynecology ASA Class 4E Preop Diagnosis LEFT VULVAR LUMP Postop Same As Preop Yes Postop Diagnosis LEFT VULVAR LUMP Outcomes Met? Yes Last Modified By: Isaac Vicekrs Ii 10/10/23 08:19:46 Post-Care Text: The patient is free from signs and symptoms of infection Skin Assessment (Pre Procedure) FT Pre-Care Text: Implements protective measures to prevent skin/ tissue injury due to thermal or mechanical sources Evaluates for signs and symptoms of physical injury to skin and tissue Entry 1 Skin Integrity Intact, Millard, Warm, & Skin Abnormality No Dry Outcomes Met? Yes Last Modified By: Isaac Vickers Ii 10/10/23 08:19:53 Post-Care Text: The patient is free from signs and symptoms of injury caused by extraneous objects Patient Positioning FT Pre-Care Text: Identifies physical alterations that require additional precautions for procedure-specific positioning, verifies presence of prosthetics or corrective devices, positions the patient, evaluates the patient for signs and symptoms of injury as a resul (more content not included)... Normal [facility] ED Clinical Summaryon 2023 ED Clinical Summary ED Clinical Summary [address] [address] ED Clinical Summary Person Information Name: TISH VARGAS [place] Age: 42 Years : 1980 Sex: Female Language: Turkish PCP: YANET JUNIOR CNP Marital Status: Phone: [phone] Visit Id: Visit Reason: Vaginal pain; Post surgical problem; HAD SURGERY THIS MORNING/EXTREME PAIN Speciality: Acuity: 3 Enc Type: Emergency Med Service: Emergency Arrival: 10/10/2023 22:39:41 Discharge: 10/11/2023 01:04:51 LOS: 000 02:25 Checkin: 10/10/2023 22:39:41 Checkout: 10/11/2023 01:04:51 Dispo Type: Home (Routine DC) EVENTS: Event Name Event Status Request Date/Time Start Date/Time Complete Date/Time Arrive Complete 10/10/2023 22:39:41 10/10/2023 22:39:41 10/10/2023 22:39:41 Document Home Meds Request 10/10/2023 22:39:41 Triage Complete 10/10/2023 22:39:41 10/10/2023 22:52:58 10/10/2023 22:52:58 Registration Complete 10/10/2023 22:45:04 10/10/2023 22:45:04 10/10/2023 22:45:04 Reg Complete Request 10/10/2023 22:45:04 Reg Bed Request Complete 10/10/2023 22:45:04 10/10/2023 22:45:04 10/10/2023 22:45:04 Dr Exam Complete 10/10/2023 22:50:09 10/10/2023 22:50:09 10/10/2023 22:50:09 Registration Start 10/10/2023 22:50:09 10/10/2023 22:55:28 Isolation Screening Request 10/10/2023 22:52:58 30 Day Return Request 10/10/2023 22:52:59 Bed Assign Complete 10/10/2023 22:55:28 10/10/2023 22:55:28 10/10/2023 22:55:28 RN Exam Complete 10/10/2023 22:55:28 10/10/2023 23:45:00 10/10/2023 23:45:00 Meds Admin Complete 10/10/2023 23:06:09 10/10/2023 23:39:36 Meds Admin Complete 10/11/2023 00:29:46 10/11/2023 01:00:30 Discharge Complete 10/11/2023 00:31:33 10/11/2023 01:07:56 10/11/2023 01:07:56 Transfer Complete 10/11/2023 01:07:56 10/11/2023 01:07:56 10/11/2023 01:07:56 AD[address]ESS: [address] [facility] [phone] PHYS DOC NOTES: MEDICAL INFORMATION: Prescriptions Given: Medications to Continue Taking That Have Changed [facility] [address], [address] [place] [phone], [phone] START: acetaminophen-oxycodon e (Percocet 5 mg-325 mg oral tablet) 1 Tablets By Mouth every 6 hours for 3 Days. Refills: 0. START: naproxen (Naprosyn 500 mg Tab) 1 Tablets By Mouth 2 times a day as needed for pain. Refills: 0. Other Medications START: acetaminophen-oxycodon e (acetaminophen-oxycodo ne 325 mg-5 mg Tab) 1 Tablets By Mouth every 6 hours. Refills: 0. START: acetaminophen-oxycodon e (Percocet 5 mg-325 mg oral tablet) 1 Tablets By Mouth every 6 hours. Refills: 0. START: naproxen (naproxen 500 mg Tab) 1 Tablets By Mouth 2 times a day for 10 Days. Refills: 0. Medications to Continue with No Changes Other Medications albuterol (Albuterol (Eqv-Ventolin HFA) 90 mcg/inh inhalation aerosol) 2 Puffs Inhalation every 6 hours. albuterol (albuterol HFA 90 mcg/inh MDI) 2 [...] Capsules By Mouth 3 times a day. losartan (losartan 25 mg Tab) 1 Tablets By Mouth at bedtime. metformin (MetFORMIN (Eqv-Glucophage XR) 500 mg oral tablet, extended release) 2 Tablets By Mouth 2 times a day. metoprolol (Metoprolol tartrate 25 mg Tab) 1 Tablets By Mouth 2 times a day. nicotine (Nicoderm C-Q 7 mg/24 hr Patch-ER) 1 Patches Topical every day for 7 Days. nitrofurantoin (nitrofurantoin macrocrystals-monohydr ate 100 mg Cap) 1 Capsules By Mouth 2 times a day for 10 Days. nitroglycerin (nitroglycerin 0.4% rectal ointment) Rectal q12hr. Refills: 0. ondansetron (Zofran ODT 4 mg Tab-Dis) 1 Tablets By Mouth every 8 hours as needed Nausea/Vomiting. Refills: 0. venlafaxine (Effexor XR 150 mg Cap-ER) 1 Capsules By Mouth every day. PATIENT EDUCATION INFORMATION: Instructions: Bartholin's Cyst Incision and Drainage, Care After Follow up: With: Address: When: [address], [place] [phone] Business ([employer] In 3 days 10/14/2023 Comments: Please follow-up with OB for further evaluation and management. you can use the pain medication as prescribed as needed for pain. With: Address: When: YANET VIDESHARSHA [address] [facility], [place], [place] [phone] Business (1) In 3 days 10/14/2023 DIAGNOSIS: Bartholin's cyst Normal [facility] ED Note-Physicianon 10-11-19 ED Note-Physician ED Note-Physician Basic Information Time Seen: Janes Bowles DO Doug 10/10/2023 22:50 Chief Complaint pt to ED with c/o labia pain from procedure this AM. states she had cysts removed from labia with Dr. Waldron, pt checked out AMA, returning for increased pain. states icepad in place with no relief. denies fevers or chils. History of Present Illness Patient is a 42-year-old female with past medical history of hypertension, hyperlipidemia, diabetes presenting to the ED for evaluation of labial pain. Patient had a bursal and cyst removed from the labia with Dr. Waldron. Patient states she signed out AMA was told she needed another couple days of pain medication and antibiotics however wanted to go home. Patient denies any fevers or chills was given Percocet for pain at home. Review of Systems A 10 point review of systems is negative except as noted above. Medical and Surgical History: Reviewed and noted Social history: Lives at home Tobacco: Denies Physical Exam Vitals & Measurements T: 36.8 ?C(Oral) HR: 89(Peripheral) RR: 18 BP: 106/80 SpO2: 95% HT: 160 cm WT: 117.9 kg BMI: 46.05 General: Well developed, non toxic appearing, no acute distress HEENT: Head atraumatic, Mucosa moist, hearing grossly normal Neck: No JVD, tracheal deviation Cardiac: Regular rate, rhythm, no murmurs, or gallops, 2+ radial pulses Respiratory: Lungs clear to auscultation B/L, normal respiratory effort Abdomen: Soft non tender, no rebound or guarding, no peritoneal signs : Performed with nurse Lorena in the room, there is some swelling noted to the left labia, no underlying fluctuance, no significant drainage Extremities: No edema noted in the LE B/L, no tenderness to palpation Neurologic: Alert and oriented, speech clear Skin: No rashes or lesions Psych: Appropriate mood and behavior Medical Decision Making MEDICAL DECISION MAKING Number and Complexity of Problems Differential Diagnosis: [] MDM Data External documents reviewed: [] My EKG interpretation: [] My CT interpretation: [] My X-ray interpretation: [] My Ultrasound interpretation: [] Decision rules/scores evaluated: [] Discussed with: [] Treatment and Disposition ED Course: Patient is a 42-year-old female presenting to the ED for evaluation of postsurgical pain. Patient is nontoxic and on arrival, no acute distress. Patient stating that she signed out AMA. I spoke with the patient surgeon Dr. Waldron who states that patient was cleared for discharge, and there is no indication for admission at this time. Patient is given IM Dilaudid in the ED. on reevaluation patient sleeping on exam requires stimulation to wake her up. I discussed findings with patient including my discussion with Dr. Waldron. Patient discharged home with short course of pain medication for home. She is to continue medications as prescribed Dr. Waldron. Shared decision making: [] Code status: [] Assessment/Plan Bartholin's cyst (N75.0: Cyst of Bartholin's gland) Orders: acetaminophen-oxycodon e, 1 EA, Tab, Oral, Once, Stop date 10/11/23 0:29:00 EDT, STAT, Start date 10/11/23 0:29:00 EDT acetaminophen-oxycodon e, 1 tab(s), Oral, q6hr for 3 day(s), 7 tab(s), Refill(s) 0, [id number], 160, cm, 10/10/23 22:52:00 EDT, Height/Length Dosing, 117.9, kg, 10/10/23 23:03:00 EDT, Weight Dosing HYDROmorphone, 1 mg = 1 mL, Injection, IntraMuscular, Once, Stop date 10/10/23 23:05:00 EDT, STAT, Start date 10/10/23 23:05:00 EDT, 10/10/23 23:05:00 EDT naproxen, 500 mg = 1 tab(s), Oral, BID, PRN for pain, # 20 tab(s), Refills(s) 0, Pharmacy: [id number], 160, cm, 10/10/23 22:52:00 EDT, Height/Length Dosing, 117.9, kg, 10/10/23 23:03:00 EDT, Weight Dosing Medications Administered Given Dilaudid 1 mg/mL injectable solution, 1 mg, IntraMuscular TO GO acetaminophen-oxycodon e 325 mg - 5 mg, 1 EA, Oral Disposition Plan Discharge Prescription List Prescriptions acetaminophen-oxycodon e 325 mg-5 mg Tab, 1 tab(s), Oral, q6hr Naprosyn 500 mg Tab, 500 mg= 1 tab(s), Oral, BID, PRN Percocet 5 mg-325 mg oral tablet, 1 tab(s), Oral, q6hr Follow-up With When Contact Information Vanita Richardson In 3 days 10/14/2023 EDT [facility] [address] [address]- Business (1) Additional Instructions: Please follow-up with OB for further evaluation and management. you can use the pain medication as prescribed as needed for pain. YANET JUNIOR In 3 days 10/14/2023 EDT [address] [place] [phone] Business (1) Additional Instructions: Patient Education Bartholin's Cyst Incision and Drainage, Care After Problem List/Past Medical History Ongoing Abnormal uterine bleeding Anxiety Coronary artery disease Depression Diabetes Diabetic neuropathy Fatty liver GERD (gastroesophageal reflux disease) Hemorrhoids History of VT (myocardial infarction) HTN (hypertension) Hyper (more content not included)... Normal [facility] Comment on above: Result Comment: Elec tronically Signed By: Janes Bowles DO\.graham\Date and Time Signed: 10/11/23 01:39 EDT ED Patient Summaryon 024 ED Patient Summary ED Patient Summary [address] [address] Patient Discharge Instructions Person Information Name: TISH VARGAS Age: 42 Years Arrival Date: 10/10/2023 22:39:41 Discharge Diagnosis: Bartholin's cyst Primary Care Physician: YANET JUNIOR CNP Provider Information Primary Provider: Janes Bowles DO [employer] Teacher:None The exam and treatment you received in the Emergency Department were for an urgent problem and are not intended as complete care. It is important that you follow up with a doctor, nurse practitioner, or physician?s home care assistant for ongoing care. If your symptoms become worse or you do not improve as expected and you are unable to reach your usual health care provider, you should return to the Emergency Department. We are available 24 hours a day. TISH VARGAS has been given the following list of patient education materials, prescriptions and follow-up instructions: Follow-up Instructions: With: Address: When: Vanita Richardson [address] [address] Business (1) In 3 days 10/14/2023 Comments: Please follow-up with OB for further evaluation and management. you can use the pain medication as prescribed as needed for pain. With: Address: When: YANET JUNIOR [address] [place], [place] [phone] [facility] (1) In 3 days 10/14/2023 In the event that this physician does not participate in your insurance network, please consult with your insurance company to find a nearby participating provider. Patient Education Materials: Bartholin's Cyst Incision and Drainage, Care After A MESSAGE TO ALL PATIENTS REGARDING OPIOIDS PRESCRIPTION OPIOIDS: WHAT YOU NEED TO KNOW Prescription opioids can be used to help relieve zirhpxed-eg-bwsshb pain and are often prescribed following a [...] the toilet, following guidance from the Food (more content not included)... Normal [facility] General Message Officeon General Message Office General Message Office --- --- --- --- --- --- --- --- --- From: Dick ThompsonInbox To: ALICIA TISH Melendez Sent: 10/11/23 02:30:52 AM EDT Subject: Discharge Summary Ready to View A summary regarding your recent visit is available in the Documents section of your health record. Normal [facility] ABO/Rhon 10-10-2023 ABO/Rh Positive Invalid Interpretation Code [facility] Comment on above: Performed By: #### [id number] #### [facility] [address] [id number] BLOOD BANKOrdered By: Jennifer Eddy on 10-10-2023 ABO/Rh Interp Positive Invalid Interpretation Code [facility] BB Subsection CHEMISTRYOrdered By: Lab ROP User on 10-10-2023 Glucose [Mass/Vol] 92 mg/dL Normal 55 - 99 mg/dL [facility] POC Subsection POC Device SN [id number] Invalid Interpretation Code [facility] POC Subsection POC User ID [id number] 1 Invalid Interpretation Code [facility] POC Subsection POC Username TRINIDAD KELLER Invalid Interpretation Code [facility] POC Subsection CHEMISTRYOrdered By: SYSTEM SYSTEM on 10-10-2023 Vanco Pk 58 microgram/mL Invalid Interpretation Code 20 - 40 mcg/mL Remisol Chem Capillary Glucose POCon 09-14 Glucose [Mass/Vol] 92 mg/dL Normal 55-99 [facility] Comment on above: Performed By: #### 2 [id number] ####[facility] [address] [id number] Inpatient Clinical Summaryon 10-10-2023 Inpatient Clinical Summary Inpatient Clinical Summary [address] [address] Clinical Summary Person Information Name: TISH VARGAS [place] Age: 42 Years : 1980 Sex: Female PCP: YANET JUNIOR CNP Marital Status: Phone: [phone] Race: White Ethnicity: Non- or Language: Turkish Visit Id: Visit Reason: Labial Abcess Speciality: Acuity: Other Enc Type: Inpatient Med Service: Obstetrics Arrival: 10/08/2023 14:54:31 Discharge: 10/10/2023 13:30:00 Dispo Type: Home (Routine DC) Address: [facility] [id number] Provider Notes: Diagnosis: 1:Labial abscess; 2:CAD (coronary artery disease); 3:Type II diabetes mellitus; 4:Obesity, morbid; Vulvar mass; Vulvar pain Problems Active Vulvar pain Obesity, morbid Labial abscess Vulvar mass Narcotic abuse Diabetes PCOS (polycystic ovarian syndrome) Hyperlipidemia Depression Insomnia History of VT (myocardial infarction) HTN (hypertension) GERD (gastroesophageal reflux disease) Hemorrhoids Fatty liver Abnormal uterine bleeding Left ovarian cyst Smoker Anxiety TRUONG on CPAP Diabetic neuropathy Presence of stent in coronary artery Coronary artery disease Hypertension Smoking Status: Current vaping or e-cigarette use Functional Status: Sensory Deficits: History of Falls: Immediately prior to hospitalization Mobility Assistance Prior to Admission: Partial assistance ADLs: Independent Current Level of Assistance for Self-Care/Mobility: Cognitive Status: Allergies Vicodin (Vomit) penicillin (Hives) (Nausea and vomiting) Ultram (Hives) (Nausea and vomiting) Laboratory or Other Results This Visit (last charted value for your 10/08/2023 visit) Hematology 10/09/2023 6:29 AM Basophil Auto: 0.8 % -- Normal range between ( 0.0 and 2.0 ) Eos Auto: 6.5 % -- Normal range between ( 0.0 and 8.0 ) Hct: 41.7 % -- Normal range between ( 34.0 and 46.0 ) HGB: 13.8 gm/dL -- Normal range between ( 12.0 and 16.0 ) Lymph Auto: 30.1 % -- Normal range between ( 14.0 and 50.0 ) RBC: 4.5 E12/L -- Normal range between ( 4.3 and 5.9 ) RDW: 13.9 % -- Normal range between ( 10.9 and 14.2 ) MCH: 31.0 pg -- Normal range between ( 27.0 and 34.0 ) MCHC: 33.0 gm/dL -- Normal range between ( 31.4 and 36.0 ) MCV: 93.8 fL -- Normal range between ( 80.0 and 100.0 ) [place] Auto: 6.3 % -- Normal range between ( 4.0 and 14.0 ) MPV: 8.6 fL -- Normal range between ( 6.4 and 10.8 ) Neutro Auto: 56.3 % -- Normal range between ( 36.0 and 75.0 ) Platelet: 184.0 E9/L -- Normal range between ( 150.0 and 500.0 ) WBC: 6.1 E9/L -- Normal range between ( 4.0 and 11.0 ) [place] Absolute: 0.4 E9/L -- Normal range between ( 0.2 and 1.0 ) Eos Absolute: 0.4 E9/L -- Normal range between ( 0.0 and 0.5 ) Basophil Absolute: 0.0 E9/L -- Normal range between ( 0.0 and 0.2 ) Neutro Absolute: 3.5 E9/L -- Normal range between ( 2.0 and 7.5 ) Lymph Absolute: 1.9 E9/L -- Normal range between ( 1.0 and 4.0 ) Chemistry 10/10/2023 9:29 AM Glucose Cap: 92 mg/dL -- Normal range between ( 55 and 99 ) POC Device SN: [id number] POC User ID: [id number] POC Username: TRINIDAD KELLER 10/10/2023 7:10 AM Vanco Pk: 58 mcg/mL -- Normal range between ( 20 and 40 ) 10/09/2023 5:21 PM Creatinine: 0.8 mg/dL -- Normal range between ( 0.5 and 1.3 ) BUN/Creat Ratio: 16 -- Normal range between ( 10 and 20 ) AGAP: 11 mEq/L -- Normal range between ( 6 and 16 ) CO2: 27 mmol/L -- Normal range between ( 21 and 31 ) Glucose Lvl: 97 mg/dL -- Normal range between ( 55 and 199 ) Sodium Lvl: 143 mmol/L -- Normal range between ( 135 and 145 ) BUN: 13 mg/dL -- Normal range between ( 5 and 21 ) Calcium Lvl: 9.4 mg/dL -- Normal range between ( 8.9 and 11.1 ) Potassium Lvl: 4.3 mmol/L -- Normal range between ( 3.5 and 5.3 ) Chloride: 109 mmol/L -- Normal range between ( 101 and 111 ) eGFR: 94 mL/min/1.73 m2 10/09/2023 6:29 AM A/G Ratio: 1.5 -- Normal range between ( 1.1 and 2.2 ) Albumin Lvl: 4.0 gm/dL -- Normal range between ( 3.3 and 5.0 ) Alk Phos: 101 Int._Unit/L -- Normal range between ( 21 and 98 ) ALT: 8 Int._Unit/L -- Normal range between ( 6 and 46 ) AST: 21 Int._Unit/L -- Normal range between ( 5 and 43 ) Bili Total: 0.3 mg/dL -- Normal range between ( 0.0 and 1.1 ) Total Protein: 6.6 gm/dL -- Normal range between ( 6.0 and 7.8 ) Globulin: 2.6 gm/dL -- Normal range between ( 1.4 and 4.0 ) 10/08/2023 4:16 PM CRP: 0.6 mg/dL Blood Bank 10/10/2023 7:10 AM ABO/Rh: A POS Measurements: Height: 160 cm Weight: 105.6 kg Blood Pressure: 131 mmHg / 89 mmHg BMI: Procedures No Procedures Documented Immunizations No Immunizations Documented This Visit Final Med List: acetaminophen-oxycodon e (acetaminophen-oxycodo ne 325 mg-5 mg Tab) 1 Tablets By Mouth ever (more content not included)... Normal [facility] Inpatient Patient Summaryon 10-10-2023 Inpatient Patient Summary Inpatient Patient Summary [address] [place] [id number] Patient Discharge Instructions PERSON INFORMATION Name: TISH VARGAS Date of : 1980 Current Date: 10/10/2023 13:50:23 PHYSICIANS Admitting Physician: Vanita Richardson DO Primary Care Physician: YANET JUNIOR CNP PCP Phone Number: [phone] Comment: Discharge Diagnosis: 1:Labial abscess; 2:CAD (coronary artery disease); 3:Type II diabetes mellitus; 4:Obesity, morbid; Vulvar mass; Vulvar pain Condition at Discharge: Stable TISH VARGAS has been given the following list of follow-up instructions, prescriptions, and patient education materials: PATIENT FOLLOW-UP INFORMATION Diet: Regular Activity: Expect minimal amount of drainage and/or bleeding Wound Care Instructions: Keep incision dry Remove Your Dressing IN: Days Call Your Doctor For: Persistent or heavy bleeding, Temperature above 101.5 degrees, Severe pain at the operative site IF UNABLE TO CONTACT YOUR PHYSICIAN AND YOU FEEL IT IS AN EMERGENCY, GO TO THE NEAREST EMERGENCY ROOM OR CALL 911 Home Treatment: Blood glucose monitoring, CPAP, Nebulizer treatments Devices/Equipment: Blood glucose monitor, CPAP unit Special Services: Additional Instructions: Physician to provide the following pending test results: None Follow up: With: Address: When: Vanita Richardson [address], [facility] [address] [place] [address] Business (1) Within 4 weeks Comments: Please call to schedule your follow up Call for any problems. Call for fever > 100.5 F Call for severe abdominal pain Call physician for heavy vaginal bleeding In the event that this physician does not participate in your insurance network, please consult with your insurance company to find a nearby participating provider. Type Location Start Finish State URO New Patient [facility] [place] 12/02/2023 10:00 AM 12/02/2023 10:15 AM Confirmed Comment: ALICIA Wells, TISH Melendez, have received the attached patient education materials/instructions and have verbalized understanding. Patient Signature Date Clinican/Nurse Signature ___ Date MEDICATION LIST Medications to Continue Taking That Have Changed [facility]/pharmacy #[id number], [address] [place] [phone], [phone] START: acetaminophen-oxycodon e (acetaminophen-oxycodo ne 325 mg-5 mg Tab) 1 Tablets By Mouth every 6 hours. Refills: 0. Last Dose: ___Next Dose: ___ Other Medications START: acetaminophen-oxycodon e (Percocet 5 mg-325 mg oral tablet) 1 Tablets By Mouth every 6 hours. Refills: 0. Last Dose: ___Next Dose: ___ Medications to Continue with No Changes Other Medications albuterol (Albuterol (Eqv-Ventolin HFA) 90 mcg/inh inhalation aerosol) 2 Puffs Inhalation every 6 hours. Last Dose: ___Next Dose: ___ albuterol (albuterol HFA 90 mcg/inh MDI) 2 Puffs Inhalation 4 times a day as needed for wheezing. Refills: 0. Last Dose: ___Next Dose: ___ alprazolam (Xanax 1 mg Tab) 1 Tablets By Mouth 2 times a day as needed for anxiety. Last Dose: ___Next Dose: ___ aspirin (aspirin 81 mg Chew Tab) 1 Tablets Chewed every day. Last Dose: ___Next Dose: ___ atorvastatin (atorvastatin 80 mg Tab) 1 Tablets By Mouth every day. Refills: 0. Last Dose: ___Next Dose: ___ clopidogrel (Plavix 75 mg Tab) 1 Tablets By Mouth every day. Last Dose: ___Next Dose: ___ empagliflozin (Jardiance 25 mg oral tablet) 1 Tablets By Mouth once a day (in the morning). Last Dose: ___Next Dose: ___ gabapentin (gabapentin 300 mg Cap) 1 Capsules By Mouth 3 times a day. Last Dose: ___Next Dose: ___ losartan (losartan 25 mg Tab) 1 Tablets By Mouth at bedtime. Last Dose: ___Next Dose: ___ metformin (MetFORMIN (Eqv-Glucophage XR) 500 mg oral tablet, extended release) 2 Tablets By Mouth 2 times a day. Last Dose: ___Next Dose: ___ metoprolol (Metoprolol tartrate 25 mg Tab) 1 Tablets By Mouth 2 times a day. Last Dose: ___Next Dose: ___ naproxen (naproxen 500 mg Tab) 1 Tablets By Mouth 2 times a day for 10 Days. Refills: 0. Last Dose: ___Next Dose: ___ nicotine (Nicoderm C-Q 7 mg/24 hr Patch-ER) 1 Patches Topical every day for 7 Days. Last Dose: ___Next Dose: ___ nitrofurantoin (nitrofurantoin macrocrystals-monohydr ate 100 mg Cap) 1 Capsules By Mouth 2 times a day for 10 Days. Last Dose: (more content not included)... Normal [facility] Main OR Intraoperative Recor don 10-10-2023 Main OR Intraoperative Record Main OR Intraoperative Record IntraOp Document Type FT Summary Primary Physician: Vanita Richardson DO Finalized Date/Time: 10/10/23 09:11:24 Pt. Name: ALICIA TISH Flores/Sex: 1980 Female Med Rec #: [id number] Physician: Vanita Richardson DO Financial #: [id number] Pt. Type: I Room/Bed: [place] [address] Admit/Disch: 10/08/23 14:54:31 - Institution: Case Times FT Entry 1 Patient Times In Room 10/10/23 07:53:00 Out Room 10/10/23 09:07:00 Procedure Times Start 10/10/23 08:14:00 Stop 10/10/23 09:00:00 Anesthesia Times Start 10/10/23 07:53:00 Stop 10/10/23 09:07:00 Last Modified By: Isaac Vickers Ii 10/10/23 09:11:13 Case Attendance FT Entry 1 Entry 2 Entry 3 Case Attendee Hieu Mosley Jr, DO, DO, Mona J. Wilhelm CST, Benjamin Role Performed Anesthesiologist of Surgeon - Primary SPECIAL EVENTS DRIVER/SA Record Time In 10/10/23 07:53:00 10/10/23 07:53:00 10/10/23 07:53:00 Time Out 10/10/23 09:07:00 10/10/23 09:07:00 10/10/23 09:07:00 Procedure BARTHOLIN CYST BARTHOLIN CYST BARTHOLIN CYST EXCISION(.) EXCISION(.) EXCISION(.) Comments ASSIST Last Modified By: Isaac Vickers Ii, Alfons Ii F Letrondo, Alfons Ii F 10/10/23 09:11:14 10/10/23 09:11:14 10/10/23 09:11:14 Entry 4 Entry 5 Case Attendee Silvestre Lu Alfons Ii F Role Performed Scrub - Primary Parts Salesperson - Primary Time In 10/10/23 07:53:00 10/10/23 07:53:00 Time Out 10/10/23 09:07:00 10/10/23 09:07:00 Procedure BARTHOLIN CYST BARTHOLIN CYST EXCISION(.) EXCISION(.) Comments Last Modified By: Isaac Vickers Ii, Alfons Ii F 10/10/23 09:11:14 10/10/23 09:11:14 Perioperative Protocols FT Pre-Care Text: Implements protective measures prior to operative or invasive procedure, confirms identity before the operative or invasive procedure, verifies operative procedure, surgical site, and laterality Entry 1 Procedure(s) BARTHOLIN CYST Patient Identity Birthday, ID Band EXCISION(.) Verified (select at Check, Patient least 2): Participation Consents / H and P Anesthesia Consent, Operative Site N/A Verified H&P, Surgery/Procedure Marking Verified Consent, Transfusion Consent Surgical Site Yes Laterality Verified Yes Verified Procedure Verified Yes Correct Patient Yes Position Verified Availability Equipment, Medication Prep Dry No Verified (If Applicable) PreOp Antibiotic Yes Time Out Hieu Mosley Jr, DO, Given Participants Dylan PIERCE, Johnny Winters CST, Tabitha Bennett Kendall R, Isaac Vickers Ii Time Out Complete 10/10/23 08:14:00 Outcomes Met? Yes Last Modified By: Isaac Vickers Ii 10/10/23 08:18:31 Post-Care Text: The patient is free from signs and symptoms of injury caused by extraneous objects Allergy Information FT Pre-Care Text: Verifies allergies Entry 1 Allergies Reviewed? Yes Allergies Reviewed Self/Patient With Outcomes Met? Yes Last Modified By: Isaac Vickers Ii 10/10/23 08:18:38 Post-Care Text: The patient received appropriate medication(s) safely administered during the perioperative period Surgical Procedures FT Entry 1 Procedure Description Procedure BARTHOLIN CYST EXCISION Modifiers . Surgeon Description LEFT VULVAR LUMP EXCISION REMOVAL Primary Procedure Yes Primary Surgeon Марина HERRERA, Hieu Landrum Start 10/10/23 08:14:00 Stop 10/10/23 09:00:00 Anesthesia Type General Surgical Service Obstetric Gynecology Wound Class 2 - Clean-Contaminated Last Modified By: Isaac Vickers Ii F 10/10/23 09:11:16 General Case Data FT Pre-Care Text: Classifies surgical wound, implements aseptic technique, initiates traffic control Entry 1 Case Information OR OR 2 FT Case Level Level 2 Wound Class 2 - Clean-Contaminated Specialty Obstetric Gynecology ASA Class 4E Preop Diagnosis LEFT VULVAR LUMP Postop Same As Preop Yes Postop Diagnosis LEFT VULVAR LUMP Outcomes Met? Yes Last Modified By: RanchoIsaac Michelle Ren 10/10/23 08:19:46 Post-Care Text: The patient is free from signs and symptoms of infection Skin Assessment (Pre Procedure) FT Pre-Care Text: Implements protective measures to prevent skin/ tissue injury due to thermal or mechanical sources Evaluates for signs and symptoms of physical injury to skin and tissue Entry 1 Skin Integrity Intact, Millard, Warm, & Skin Abnormality No Dry Outcomes Met? Yes Last Modified By: RanchoIsaac Michelle Ren 10/10/23 08:19:53 Post-Care Text: The patient is free from signs and symptoms of injury caused by extraneous objects Patient Positioning FT Pre-Care Text: Identifies physical alterations that require additional precautions for procedure-specific positioning, verifies presence of prosthetics or corrective devices, positions the patient, evaluates the patient for signs and symptoms of injury as a result of positioning Entry 1 Procedure BARTHOLIN CYST Body Position High Lithotomy EXCISION(.) Fe (more content not included)... Normal [facility] Main OR PACU I Recordon 09-14 Main OR PACU I Record Main OR PACU I Rec ord PACU Phase I Document Type FT Summary Primary Physician: Vanita Richardson DO Finalized Date/Time: 10/10/23 10:14:00 Pt. Name: TISH VARGAS/Sex: 1980 Female Med Rec #: [id number] Physician: Vanita Richardson DO Financial #: [id number] Pt. Type: I Room/Bed: N410/01 Admit/Disch: 10/08/23 14:54:31 - Institution: Case Times PACU I FT Pre-Care Text: Identifies barriers to communication and implements measures to provide psychological support Develops individualized plan of care, and ensures continuity of care Maintains patient's dignity and privacy, and maintains patient confidentiality Identifies and reports philosophical, cultural, and spiritual beliefs and values Identifies individual values and wishes concerning care Implements aseptic technique, and administers prescribed antibiotic therapy and immunizing agents as ordered Evaluates postoperative tissue perfusion Implements thermoregulation measures, and monitors body temperature Evaluates postoperative respiratory status Evaluates postoperative cardiac status Evaluates postoperative neurological status Assesses pain control, collaborated in initiating patient-controlled analgesia and implements alternative methods of pain control Verifies allergies, administers prescribed medications and solutions, evaluates response to medications Entry 1 In PACU I 10/10/23 09:08:00 Discharge from PACU 10/10/23 09:38:00 I Outcomes Met? Yes Last Modified By: Trinidad Keller RN 10/10/23 10:13:47 Post-Care Text: The patient demonstrates knowledge of the expected response to the operative or invasive procedure The patient's care is consistent with the individualized perioperative plan of care The patient's right to privacy is maintained The patient's value system, lifestyle, ethnicity, and culture are considered, respected, and incorporated into the perioperative plan of care The patient participates in decisions affecting his or her perioperative plan of care The patient is free from signs and symptoms of infection The patient has wound/tissue perfusion consistent with or improved from baseline levels established preoperatively The patient is at or returning to normothermia at the conclusion of the immediate postoperative period The patient's respiratory function is consistent with or improved from baseline levels established preoperatively The patient's cardiovascular status is consistent with or improved from baseline levels established preoperatively The patient's cardiovascular status is consistent with or improved from baseline levels established preoperatively The patient demonstrates and/or reports adequate pain control throughout the perioperative period The patient received appropriate medication(s), safely administered during the perioperative period Acuity Level PACU I FT Entry 1 Start Time 10/10/23 09:08:00 Stop Time 10/10/23 09:38:00 Acuity Level Acuity Level I Last Modified By: Trinidad Keller RN 10/10/23 10:13:56 Finalized By: Trinidad Keller RN Document Signatures Signed By: Trinidad Keller RN 10/10/23 10:13 [facility] Main OR Preoperative Recordo n 10-10-2023 Main OR Preoperative Record Main OR Preoperative Record Holding Area Document Type FT Summary Primary Physician: Vanita Richardson DO Finalized Date/Time: 10/10/23 08:28:35 Pt. Name: TISH VARGAS/Sex: 1980 Female Med Rec #: [id number] Physician: Vanita Richardson DO Financial #: [id number] Pt. Type: I Room/Bed: [place] [address] Admit/Disch: 10/08/23 14:54:31 - Institution: Case Times Holding FT Pre-Care Text: Verifies consent for planned procedure, identifies individual values and wishes concerning care, includes family members in perioperative teaching Secures patient's records' belongings, and valuables, maintains patient's dignity and privacy, and maintains patient confidentiality Entry 1 In Holding 10/10/23 07:10:00 Outcomes Met? Yes Last Modified By: Isaac Vickers Ii 10/10/23 08:27:42 Post-Care Text: The patient participates in decisions affecting his or her perioperative plan of care The patient's right to privacy is maintained Surgery Checklist FT Entry 1 Patient Birthday, ID Band Procedure Blood Consent, History Identification: Check, Patient Verification: and Physical, Surgical Participation Consent, With Patient NPO after Midnight: Yes Date/Time: 10/10/23 07:12:00 Complaints of Pain: Yes Pain Comment: 07/23 Operative Site n/a Availability Equipment Marking: Verified: Does Patient Smoke No Patient states Yes Case Cancelled in No postop adult Holding Area see supervision comments below for available reason Last Modified By: Isaac Vickers Ii 10/10/23 08:28:30 Finalized By: Isaac Vickers Ii Document Signatures Signed By: Isaac Vickers Ii 10/10/23 08:28 Normal [facility] Main OR Preoperative Record Main OR Preoperative Record PreOp Document Type FT Summary Primary Physician: Vanita Richardson DO Finalized Date/Time: 10/10/23 08:27:30 Pt. Name: TISH VARGAS/Sex: 1980 Female Med Rec #: [id number] Physician: Vanita Richardson DO Financial #: [id number] Pt. Type: I Room/Bed: N410/01 Admit/Disch: 10/08/23 14:54:31 - Institution: Case Times PreOp FT Pre-Care Text: Verifies consent for planned procedure, identifies individual values and wishes concerning care, includes family members in perioperative teaching Entry 1 Patient Times. In Pre Surgery 10/10/23 07:20:00 Out Pre Surgery 10/10/23 07:51:00 Outcomes Met? Yes Last Modified By: Isaac Vickers Ii 10/10/23 08:27:27 Post-Care Text: The patient participates in decisions affecting his or her perioperative plan of care Finalized By: Isaac Vickers Ii Document Signatures Signed By: Isaac Vickers Ii 10/10/23 08:27 [facility] Operative Reporton Operative Report Operative Report Indication for Surgery Patient is a 42-year-old female who in the past being has been having severe pain and increased vulvar mass Preoperative Diagnosis LEFT VULVAR LUMP Postoperative Diagnosis LEFT VULVAR LUMP Operation Left vulvar mass excision, No Bartholin's cyst noted BARTHOLIN CYST EXCISION, LEFT VULVAR LUMP EXCISION REMOVAL, . Surgeon(s) Vanita Richardson DO (Surgeon - Primary) Tax Representative Heaven Turner [facility] Anesthesia General [facility] Hieu Dodd DO (International Trade Teacher) Estimated Blood Loss 25mL Urine Output 50mL of dark yellow urine drained by straight catheter Findings ~2.5x3cm in diameter left vulvar mass which is firm, non-fluctuant Specimen(s) Pathology Tissue Exam (Left vulvar mass,AP Specimen) Complications None Technique Patient was seen in the preoperative area, questions were asked and answered. Patient was brought to the operating room with IV fluid running and placed on the operating table without difficulty. General anesthesia was induced and patient was placed in a dorsal lithotomy position with Tee type stirrups. Patient was prepped and draped in the normal sterile fashion. At this time timeout was called for the correct patient and the correct procedure. Approximately 1 mL of Exparel local anesthesia was administered to the area skin incision was made over the left vulvar lump and skin edges was pulled with Allis clamps and dissection was performed to separate the mass from the surrounding tissue with Metzenbaum scissors. 2 smaller mass/cyst was noted measuring approximately 5 mm in diameter and noted to have thick curdy substance within the cyst. From mass was palpated behind the 2 smaller cysts which are more superficial. Larger mass is firm and measuring approximately 1 x 1.5 cm in diameter. This was removed entirely and irrigation was performed. Good hemostasis was noted. Specimen was sent for pathology evaluation. 3-0 Vicryl was used to approximate the subcutaneous tissue in 2 layers. Skin incision was approximated with 3-0 Vicryl in a subcuticular manner. Good hemostasis was noted at the end of the procedure. Patient was returned to a dorsal supine position and awakened from anesthesia without difficulty. Patient was transferred to a bed and transported to the recovery room in a stable condition. Sponge count correct x 2 and patient tolerated the procedure well. Normal [facility] Comment on above: Result Comment: Elec tronically Signed By: Vanita Richardson DO\.br\Date and Time Signed: 10/10/23 11:24 EDT Vanco Peakon 10-10-2023 Vanco Pk 58 microgram/mL Abnormal 20-40 [facility] Comment on above: Order Comment: Pleas e drawn Vancomycin Peak 1 hour after the completion of the 0500 dose on 10/10/23. Thank you. Per RN for Rm 410, Peak okay to be drawn at 0700, [id number] 10/10/2023 06:45:25 EDT Performed By: #### 2 [id number] #### [facility] [address] [place] [address] CHEMISTRYOrdered By: Lab ROP User on 10-09-2023 Glucose [Mass/Vol] 89 mg/dL Normal 55 - 99 mg/dL [facility] POC Subsection Comment on above: Result Comment: Genie gurrola RN/ Cleaned Meter POC Device SN [id number] 1 Invalid Interpretation Code FT POC Subsection POC User ID [id number] 1 Invalid Interpretation Code FT POC Subsection POC Username SANGEETA PRESTON Invalid Interpretation Code [facility] POC Subsection Glucose [Mass/Vol] 123 mg/dL High 55 - 99 mg/dL [facility] POC Subsection Comment on above: Result Comment: Genie gurrola RN/ POC Device SN [id number] 1 Invalid Interpretation Code FT POC Subsection POC User ID [id number] 1 Invalid Interpretation Code FT POC Subsection POC Username ARNULFO SANDRA Invalid Interpretation Code [facility] POC Subsection CHEMISTRYOrdered By: SYSTEM SYSTEM on 10-09-2023 Anion gap [Moles/Vol] 11 mmol/L Normal 6 - 16 mEq/L R emisol Chem Calcium [Mass/Vol] 9.4 mg/dL Normal 8.9 - 11. 1 mg/dL Remisol Chem Chloride [Moles/Vol] 109 mmol/L Normal 101 - 1 11 mmol/L Remisol Chem CO2 [Moles/Vol] 27 mmol/L Normal 21 - 31 mmol/L Remisol Chem Creatinine [Mass/Vol] 0.8 mg/dL Normal 0.5 - 1.3 mg/dL Remisol Chem eGFR 94 mL/min/1.73 m2 Normal >=59mL/min /1 .73 m2 Remisol Chem Glucose [Mass/Vol] 97 mg/dL Normal 55 - 199 mg/dL Remisol Chem Potassium [Moles/Vol] 4.3 mmol/L Normal 3.5 - 5.3 mmol/L Remisol Chem Sodium [Moles/Vol] 143 mmol/L Normal 135 - 145 mmol/L Remisol Chem Urea nitrogen [Mass/Vol] 13 mg/dL Normal 5 - 21 mg/dL Remisol Chem Urea nitrogen/Creatinine [Mass ratio] 16 mg/mg Normal 10 - 20 Remisol Chem Albumin [Mass/Vol] 4.0 g/dL Normal 3.3 - 5.0 gm/dL Remisol Chem Albumin/Globulin [Mass ratio] 1.5 {ratio} Normal 1.1 - 2.2 Remisol Chem ALP [Catalytic activity/Vol] 101 [iU]/d High 21 - 98 Int._Unit/L Remisol Chem ALT No additional P-5'-P [Catalytic activity/Vol] 8 [iU]/d Normal 6 - 46 Int._Unit/L Remisol Chem Anion gap [Moles/Vol] 15 mmol/L Normal 6 - 16 mEq/L R emisol Chem AST [Catalytic activity/Vol] 21 [iU]/d Normal 5 - 43 Int._Unit/L Remisol Chem Bilirubin [Mass/Vol] 0.3 mg/dL Normal 0.0 - 1 .1 mg/dL Remisol Chem Calcium [Mass/Vol] 9.7 mg/dL Normal 8.9 - 11. 1 mg/dL Remisol Chem Chloride [Moles/Vol] 108 mmol/L Normal 101 - 1 11 mmol/L Remisol Chem CO2 [Moles/Vol] 23 mmol/L Normal 21 - 31 mmol/L Remisol Chem Creatinine [Mass/Vol] 0.8 mg/dL Normal 0.5 - 1.3 mg/dL Remisol Chem eGFR 94 mL/min/1.73 m2 Normal >=59mL/min /1 .73 m2 Remisol Chem Globulin (S) [Mass/Vol] 2.6 g/dL Normal 1.4 - 4.0 gm/dL Remisol Chem Glucose [Mass/Vol] 85 mg/dL Normal 55 - 199 mg/dL Remisol Chem Potassium [Moles/Vol] 4.3 mmol/L Normal 3.5 - 5.3 mmol/L Remisol Chem Protein [Mass/Vol] 6.6 g/dL Normal 6.0 - 7.8 gm/dL Remisol Chem Sodium [Moles/Vol] 142 mmol/L Normal 135 - 145 mmol/L Remisol Chem Urea nitrogen [Mass/Vol] 13 mg/dL Normal 5 - 21 mg/dL Remisol Chem Urea nitrogen/Creatinine [Mass ratio] 16 mg/mg Normal 10 - 20 Remisol Chem Capillary Glucose POCon 09-14 Glucose [Mass/Vol] 89 mg/dL Normal 55-99 [facility] Comment on above: Result Comment: Genie gurrola RN/ Cleaned Meter Performed By: #### 2 [id number] #### [facility] [address] [place] [address] HEMATOLOGYOrdered By: SYSTEM SYSTEM on 10-09-2023 Basophils/100 WBC (Bld) 0.8 % Normal 0.0 - 2.0 % Remisol Heme Basophils/Leukocytes Auto (Bld) [Pure # fraction] 0.0 E9/L Normal 0.0 - 0.2 E9/L Remisol Heme Eosinophils (Bld) [#/Vol] 0.4 E9/L Normal 0.0 - 0.5 E9/L Remisol Heme Eosinophils/100 WBC (Bld) 6.5 % Normal 0.0 - 8.0 % Remisol Heme Erythrocyte distribution width (RBC) [Ratio] 13.9 % Normal 10.9 - 14.2 % Remisol Heme Hematocrit (Bld) [Volume fraction] 41.7 % Normal 34.0 - 46.0 % Remisol Heme Hemoglobin (Bld) [Mass/Vol] 13.8 g/dL Normal 12.0 - 16.0 gm/dL Remisol Heme Lymphocytes (Bld) [#/Vol] 1.9 E9/L Normal 1.0 - 4.0 E9/L Remisol Heme Lymphocytes/100 WBC (Bld) 30.1 % Normal 14.0 - 50.0 % Remisol Heme MCH (RBC) [Entitic mass] 31.0 pg Normal 27.0 - 34.0 pg Remisol Heme MCHC (RBC) [Mass/Vol] 33.0 g/dL Normal 31.4 - 36.0 gm/dL Remisol Heme MCV (RBC) [Entitic vol] 93.8 fL Normal 80.0 - 100.0 fL Remisol Heme Monocytes (Bld) [#/Vol] 0.4 E9/L Normal 0.2 - 1.0 E9/L Remisol Heme Monocytes/100 WBC (Bld) 6.3 % Normal 4.0 - 14.0 % Remisol Heme Neutrophils (Bld) [#/Vol] 3.5 E9/L Normal 2.0 - 7.5 E9/L Remisol Heme Neutrophils/100 WBC (Bld) 56.3 % Normal 36.0 - 75.0 % Remisol Heme Platelet mean volume (Bld) [Entitic vol] 8.6 fL Normal 6.4 - 10.8 fL Remisol Heme Platelets (Bld) [#/Vol] 184.0 E9/L Normal 150.0 - 500.0 E9/L Remisol Heme RBC (Bld) [#/Vol] 4.5 E12/L Normal 4.3 - 5.9 E12/L Remisol Heme WBC corrected for nucl RBC Auto (Bld) [#/Vol] 6.1 E9/L Normal 4.0 - 11.0 E9/L Remisol Heme CHEMISTRYOrdered By: SYSTEM SYSTEM on 10-08-2023 Albumin [Mass/Vol] 4.1 g/dL Normal 3.3 - 5.0 gm/dL Remisol Chem Albumin/Globulin [Mass ratio] 1.6 {ratio} Normal 1.1 - 2.2 Remisol Chem ALP [Catalytic activity/Vol] 102 [iU]/d High 21 - 98 Int._Unit/L Remisol Chem ALT No additional P-5'-P [Catalytic activity/Vol] 7 [iU]/d Normal 6 - 46 Int._Unit/L Remisol Chem Anion gap [Moles/Vol] 11 mmol/L Normal 6 - 16 mEq/L R emisol Chem AST [Catalytic activity/Vol] 17 [iU]/d Normal 5 - 43 Int._Unit/L Remisol Chem Bilirubin [Mass/Vol] 0.4 mg/dL Normal 0.0 - 1 .1 mg/dL Remisol Chem Calcium [Mass/Vol] 9.8 mg/dL Normal 8.9 - 11. 1 mg/dL Remisol Chem Chloride [Moles/Vol] 106 mmol/L Normal 101 - 1 11 mmol/L Remisol Chem CO2 [Moles/Vol] 28 mmol/L Normal 21 - 31 mmol/L Remisol Chem Creatinine [Mass/Vol] 0.9 mg/dL Normal 0.5 - 1.3 mg/dL Remisol Chem CRP [Mass/Vol] 0.6 mg/dL Normal <=1.9mg/dL Remisol Ch em eGFR 82 mL/min/1.73 m2 Normal >=59mL/min /1 .73 m2 Remisol Chem Globulin (S) [Mass/Vol] 2.6 g/dL Normal 1.4 - 4.0 gm/dL Remisol Chem Glucose [Mass/Vol] 97 mg/dL Normal 55 - 199 mg/dL Remisol Chem Potassium [Moles/Vol] 4.1 mmol/L Normal 3.5 - 5.3 mmol/L Remisol Chem Protein [Mass/Vol] 6.7 g/dL Normal 6.0 - 7.8 gm/dL Remisol Chem Sodium [Moles/Vol] 141 mmol/L Normal 135 - 145 mmol/L Remisol Chem Urea nitrogen [Mass/Vol] 13 mg/dL Normal 5 - 21 mg/dL Remisol Chem Urea nitrogen/Creatinine [Mass ratio] 14 mg/mg Normal 10 - 20 Remisol Chem HEMATOLOGYOrdered By: SYSTEM SYSTEM on 07-25-2024 Basophils/100 WBC (Bld) 0.8 % Normal 0.0 - 2.0 % Remisol Heme Basophils/Leukocytes Auto (Bld) [Pure # fraction] 0.0 E9/L Normal 0.0 - 0.2 E9/L Remisol Heme Eosinophils (Bld) [#/Vol] 0.3 E9/L Normal 0.0 - 0.5 E9/L Remisol Heme Eosinophils/100 WBC (Bld) 5.9 % Normal 0.0 - 8.0 % Remisol Heme Erythrocyte distribution width (RBC) [Ratio] 13.9 % Normal 10.9 - 14.2 % Remisol Heme Hematocrit (Bld) [Volume fraction] 41.1 % Normal 34.0 - 46.0 % Remisol Heme Hemoglobin (Bld) [Mass/Vol] 13.9 g/dL Normal 12.0 - 16.0 gm/dL Remisol Heme Lymphocytes (Bld) [#/Vol] 1.9 E9/L Normal 1.0 - 4.0 E9/L Remisol Heme Lymphocytes/100 WBC (Bld) 35.5 % Normal 14.0 - 50.0 % Remisol Heme MCH (RBC) [Entitic mass] 31.5 pg Normal 27.0 - 34.0 pg Remisol Heme MCHC (RBC) [Mass/Vol] 33.8 g/dL Normal 31.4 - 36.0 gm/dL Remisol Heme MCV (RBC) [Entitic vol] 93.4 fL Normal 80.0 - 100.0 fL Remisol Heme Monocytes (Bld) [#/Vol] 0.4 E9/L Normal 0.2 - 1.0 E9/L Remisol Heme Monocytes/100 WBC (Bld) 7.3 % Normal 4.0 - 14.0 % Remisol Heme Neutrophils (Bld) [#/Vol] 2.6 E9/L Normal 2.0 - 7.5 E9/L Remisol Heme Neutrophils/100 WBC (Bld) 50.5 % Normal 36.0 - 75.0 % Remisol Heme Platelet mean volume (Bld) [Entitic vol] 8.8 fL Normal 6.4 - 10.8 fL Remisol Heme Platelets (Bld) [#/Vol] 176.0 E9/L Normal 150.0 - 500.0 E9/L Remisol Heme RBC (Bld) [#/Vol] 4.4 E12/L Normal 4.3 - 5.9 E12/L Remisol Heme WBC corrected for nucl RBC Auto (Bld) [#/Vol] 5.2 E9/L Normal 4.0 - 11.0 E9/L Remisol Heme ED Clinical Summaryon 2023 ED Clinical Summary ED Clinical Summary [place] [id number] ED Clinical Summary Person Information Name: TISH VARGAS [place] Age: 42 Years : 1980 Sex: Female Language: Turkish PCP: YANET JUNIOR CNP Marital Status: Phone: [phone] Visit Id: Visit Reason: Skin problem; ABCESS [...] 10/03/2023 00:40:25 10/03/2023 00:40:25 10/03/2023 00:40:25 AD[address]: [address] [facility] [id number] PHYS DOC NOTES: MEDICAL INFORMATION: Prescriptions Given: Medications to Continue Taking That Have Changed [facility]/pharmacy #[id number], [address] [place], [place] [phone], [phone] START: naproxen (naproxen 500 mg Tab) 1 [...] to Continue with No Changes Other Medications acetaminophen-oxycodon e (Percocet 325 mg-5 mg Tab) 1 Tablets By Mouth every 6 hours as needed as needed for pain. Refills: 0. acetaminophen-oxycodon e (Percocet 5 mg-325 mg oral tablet) 1 [...] Follow up: With: Address: When: [place] [address], [facility] [address], [place] [address] Business (1) In 3 days 10/06/19 (more content not included)... Normal [facility] ED Note-Physicianon 10-03-19 ED Note-Physician ED [...] She will need to follow-up with her SERVICE LINE COORDINATOR as soon as she can on Thursday morning for further evaluation and possible repeat I&D. Assessment/Plan Bartholin's gland abscess (N75.1: Abscess of Bartholin's gland) Orders: acetaminophen-oxycodon e, 1 tab(s), Tab, Oral, Once, Stop date 10/02/23 22:16:00 EDT, STAT, Start date 10/02/23 22:16:00 EDT acetaminophen-oxycodon e, 1 tab(s), Tab, Oral, Once, Stop date [...] day(s), # 20 tab(s), Refills(s) 0, Pharmacy: [facility]/pharmacy #[id number], 160, cm, 10/02/23 21:46:00 EDT, Height/Length Dosing, 106.2, kg, 10/02/23 21:46:00 EDT, Weight Dosing ondansetron, 4 mg = 1 tab(s), Tab-Dis, Oral, Once, Stop date 10/02/23 22:16:00 EDT, STAT, Start date 10/02/23 22:16:00 EDT, 10/02/23 22:16:00 EDT ondansetron, 4 mg = 1 tab(s), Oral, q6hr, # 12 tab(s), Refills(s) 0, Pharmacy: [facility]/pharmacy #[id number], 160, cm, 10/02/23 21:46:00 EDT, [...] 1 ta (more content not included)... Normal [facility] Comment on above: Result Comment: Elec tronically Signed By: Fito Gramajo PA-C\.br\Date and Time Signed: 10/03/23 00:37 EDT\.br\Electronically Co-Signed By: Kevin Nur DO\.br\Date and Time Co-Signed: 10/03/23 18:50 EDT ED Note-Physician ED Note-Physician Basic Information Time Seen: Noa Claudio PA-C 10/02/2023 13:06 Chief Complaint abcess to left [...] Assessment/Plan Abscess (L02.91: Cutaneous abscess, unspecified) Orders: acetaminophen-oxycodon e, 1 tab(s), Oral, q6hr, 7 tab(s), Refill(s) 0, [id number], 160, cm, 10/02/23 12:44:00 EDT, Height/Length Dosing, 105.3, kg, 10/02/23 12:44:00 EDT, Weight Dosing clindamycin, 300 mg = 1 cap(s), Oral, q6hr, X 7 day(s), # 28 cap(s), Refills(s) 0, Pharmacy: [facility]/pharmacy #[id number], 160, cm, 10/02/23 12:44:00 EDT, Height/Length Dosing, 105.3, kg, 10/02/23 12:44:00 EDT, Weight Dosing Disposition Plan Patient Discharge Condition stable Discharge Disposition home Discharge Prescription List Prescriptions clindamycin 300 mg oral cap, 300 mg= 1 cap(s), Oral, q6hr Percocet 5 mg-325 mg oral tablet, 1 tab(s), Oral, q6hr Follow-up With When Contact Information Hieu aPrish In 3 days 10/05/2023 EDT [address], [address] [place] [address]- Business (1) Additional Instructions: Call to schedule a follow up appointment with an SERVICE LINE COORDINATOR for further management of care. Take the antibiotic in entirerty. YANET JUNIOR In 3 days [address] [place] [phone] Business (1) Additional Instructions: Patient Education Bartholin's Cyst, Rogb-rq-[id number] Attestation Patient seen and evaluated by the physician home care assistant. Attending physician was present in the emergency department and supervised care. This visit was performed by both the physician and an APC. I performed all aspects of the MDM as documented. This report was transcribed using voice recognition software. Every effort was made to ensure accuracy, however, inadvertently computerized accounts receivable executive mistakes may be present. Appropriate healthcare PPE [...] GERD (gastroesophageal reflux disease) Hemorrhoids History of VT (myocardial infarction) HTN (hypertension) Hyperlipidemia Hypertension Insomnia (more content not included)... Normal [facility] Comment on above: Result Comment: Elec tronically Signed By: Noa Claudio PA-C\.br\Date and Time Signed: 10/02/23 18:12 EDT\.br\Electronically Co-Signed By: Juan Arnold DO\.br\Date and Time Co-Signed: 10/03/23 06:57 EDT ED Patient Summaryon 024 ED Patient Summary ED Patient Summary [place] [id number] Patient Discharge Instructions Person Information Name: TISH VARGAS Age: 42 Years Arrival Date: 10/02/2023 21:35:04 Discharge Diagnosis: Bartholin's gland abscess Primary Care Physician: YANET JUNIOR CNP Provider Information Primary Provider: Kevin Nur DO [employer] Teacher:Avila GUZMAN, Fito Larsen The exam and treatment you received in the Emergency Department were for an urgent problem and are not intended as complete care. It is important that you follow up with a doctor, nurse practitioner, or physician?s home care assistant for ongoing care. If your symptoms [...] Follow-up Instructions: With: Address: When: [place] [address] [place] [address] [address], [facility] [address], [place] [address] Business (1) In 3 days 10/06/2023 With: Address: When: YANET JUNIOR [address] [place], [place] [phone] Business (1) In 3 days 10/06/2023 In the event that this physician does not participate in your insurance network, please consult with your insurance company to find a nearby participating provider. Patient Education Materials: Barthmarck's Cyst A MESSAGE TO ALL PATIENTS REGARDING OPIOIDS PRESCRIPTION OPIOIDS: WHAT YOU NEED TO KNOW Prescription opioids can be used to help relieve bezkxaxn-eb-jxpmwg pain and are often prescribed following a [...] guidance from the Food and Drug Administration (www.fda.gov/Drugs/Res ourcesForYou). ? Visit www.cdc.gov/drugoverdo se to learn about the risks of opioids abuse and overdose. ? (more content not included)... Normal [facility] ED Clinical Summaryon 2023 ED Clinical Summary ED Clinical Summary [address] [address] ED Clinical Summary Person Information Name: TISH VARGAS [place] Age: 42 Years : 1980 Sex: Female Language: Turkish PCP: AICHHOLZ SUPERVISOR TOY ASSEMBLY, YANET J Marital Status: Phone: [phone] Visit Id: Visit Reason: Skin problem - [...] 10/02/2023 13:41:54 10/02/2023 13:41:54 10/02/2023 13:41:54 ADDRESS: [facility] [id number] PHYS DOC NOTES: MEDICAL INFORMATION: Prescriptions Given: New Medications [facility]/pharmacy #[id number], [address] [place], [place] [phone], [phone] clindamycin (clindamycin 300 mg oral cap) 1 Capsules By Mouth every 6 hours for 7 Days. Refills: 0. Medications to Continue Taking That Have Changed [facility]/pharmacy #[id number], [address] [place], [place] [id number], [phone] START: acetaminophen-oxycodon e (Percocet 5 mg-325 mg oral tablet) 1 Tablets By Mouth every 6 hours. Refills: 0. Other Medications START: acetaminophen-oxycodon e (Percocet 325 mg-5 mg Tab) 1 Tablets [...] day. PATIENT EDUCATION INFORMATION: Instructions: Bartholin's Cyst, Sryt-nd-Ncrl Follow up: With: Address: When: [address], [facility] [address], [place] [address] [facility] (1) In 3 days 10/05/2023 Comments: Call to schedule a follow up appointment with an SERVICE LINE COORDINATOR for further management of care. Take the antibiotic in entirerty. With: Address: (more content not included)... Normal [facility] ED Patient Summaryon 024 ED Patient Summary ED Patient Summary [address] [address] Patient Discharge Instructions Person Information Name: TISH VARGAS Age: 42 Years Arrival Date: 10/02/2023 12:29:16 Discharge Diagnosis: Abscess Primary Care Physician: YANET JUNIOR CNP Provider Information Primary Provider: Juan Arnold DO [employer] Teacher:Noa Claudio PA-C The exam and treatment you received in the Emergency Department were for an urgent problem and are not intended as complete care. It is important that you follow up with a doctor, nurse practitioner, or physician?s home care assistant for ongoing care. If your symptoms [...] Follow-up Instructions: With: Address: When: Hieu [facility] [address] [place], [place] [phone] Business (1) In 3 days 10/05/2023 Comments: Call to schedule a follow up appointment with an SERVICE LINE COORDINATOR for further management of care. Take the antibiotic in entirerty. With: Address: When: YANET JUNIOR [address] [place], [place] [phone] Business (1) In 3 days In the event that this physician does not participate in your insurance network, please consult with your insurance company to find a nearby participating provider. Patient Education Materials: Bartholin's Cyst, Ijii-lt-Swdb A MESSAGE TO ALL PATIENTS REGARDING OPIOIDS PRESCRIPTION OPIOIDS: WHAT YOU NEED TO KNOW Prescription opioids can be used to help relieve kxpnrwau-iw-zaultb pain and are often prescribed following a [...] Administration (www.fda.gov (more content not included)... Normal [facility] BMPon 09-25-2023 Anion gap [Moles/Vol] 14 mmol/L Normal 6-16 [facility] Comment on above: Performed By: #### 2 [id number] #### [facility] [address] [place] [address] Calcium [Mass/Vol] 9.9 mg/dL Normal 8.9-11.1 [facility] Comment on above: Performed By: #### 2 [id number] #### [facility] [address] [place] [address] Chloride [Moles/Vol] 104 mmol/L Normal 101-111 [facility] Comment on above: Performed By: #### 2 [id number] #### [facility] [address] [place] [address] CO2 [Moles/Vol] 24 mmol/L Normal 21-31 [facility] Comment on above: Performed By: #### 2 [id number] #### [facility] [address] [place] [address] Creatinine [Mass/Vol] 0.7 mg/dL Normal 0.5-1.3 [facility] Comment on above: Performed By: #### 2 [id number] #### [facility] [address] [place] [address] Glucose [Mass/Vol] 116 mg/dL Normal 55-199 [facility] Comment on above: Performed By: #### 2 [id number] #### [facility] [address] [place] [address] Potassium [Moles/Vol] 4.2 mmol/L Normal 3.5-5.3 [facility] Comment on above: Performed By: #### 2 [id number] #### [facility] [address] [place] [address] Sodium [Moles/Vol] 138 mmol/L Normal 135-145 [facility] Comment on above: Performed By: #### 2 [id number] #### [facility] [address] [place] [address] Urea nitrogen [Mass/Vol] 16 mg/dL Normal 5-21 [facility] Comment on above: Performed By: #### 2 [id number] #### [facility] [address] [place] [address] Urea nitrogen/Creatinine [Mass ratio] 23 No Units High 10-20 [facility] Comment on above: Performed By: #### 2 [id number] #### [facility] [address] [place] [address] CBC w/ Auto Diffon 4 Basophils/100 WBC (Bld) 0.7 % Normal 0.0-2.0 [facility] Comment on above: Performed By: #### 2 [id number] #### [facility] [address] [place] [address] Basophils/Leukocytes Auto (Bld) [Pure # fraction] 0.1 E9/L Normal 0.0-0.2 [facility] Comment on above: Performed By: #### 2 [id number] #### [facility] [address] [place] [address] Eosinophils (Bld) [#/Vol] 0.1 E9/L Normal 0.0-0.5 [facility] Comment on above: Performed By: #### 2 [id number] #### [facility] [address] [place] [address] Eosinophils/100 WBC (Bld) 1.1 % Normal 0.0-8.0 [facility] Comment on above: Performed By: #### 2 [id number] #### [facility] [address] [place] [address] Erythrocyte distribution width (RBC) [Ratio] 14.3 % High 10.9-14.2 [facility] Comment on above: Performed By: #### 2 [id number] #### [facility] [address] [place] [address] Hematocrit (Bld) [Volume fraction] 44.5 % Normal 34.0-46.0 [facility] Comment on above: Performed By: #### 2 [id number] #### [facility] [address] [place] [address] Hemoglobin (Bld) [Mass/Vol] 15.0 g/dL Normal 12.0-16.0 [facility] Comment on above: Performed By: #### 2 [id number] #### [facility] [address] [place] [address] Lymphocytes (Bld) [#/Vol] 1.7 E9/L Normal 1.0-4.0 [facility] Comment on above: Performed By: #### 2 [id number] #### [facility] [address] [place] [address] Lymphocytes/100 WBC (Bld) 19.9 % Normal 14.0-50.0 [facility] Comment on above: Performed By: #### 2 [id number] #### [facility] [address] [place] [address] MCH (RBC) [Entitic mass] 31.2 pg Normal 27.0-34.0 [facility] Comment on above: Performed By: #### 2 [id number] #### [facility] [address] [place] [address] MCHC (RBC) [Mass/Vol] 33.7 g/dL Normal 31.4-36.0 [facility] Comment on above: Performed By: #### 2 559782 #### [facility] [address] [place] [address] MCV (RBC) [Entitic vol] 92.5 fL Normal 80.0-100.0 [facility] Comment on above: Performed By: #### 2 920005 #### [facility] [address] [place] [address] Monocytes (Bld) [#/Vol] 0.4 E9/L Normal 0.2-1.0 [facility] Comment on above: Performed By: #### 2 [id number] #### [facility] [address] [place] [address] Neutrophils (Bld) [#/Vol] 6.3 E9/L Normal 2.0-7.5 [facility] Comment on above: Performed By: #### 2 092588 #### [facility] [address] [place] [address] Neutrophils/100 WBC (Bld) 73.8 % Normal 36.0-75.0 [facility] Comment on above: Performed By: #### 2 039955 #### [facility] [address] [place] [address] Platelet mean volume (Bld) [Entitic vol] 8.5 fL Normal 6.4-10.8 [facility] Comment on above: Performed By: #### 2 634431 #### [facility] [address] [place] [address] Platelets (Bld) [#/Vol] 229.0 E9/L Normal 150.0-500.0 [facility] Comment on above: Performed By: #### 2 [id number] #### [facility] [address] [place] [address] RBC (Bld) [#/Vol] 4.8 E12/L Normal 4.3-5.9 [facility] Comment on above: Performed By: #### 2 729432 #### [facility] [address] [place] [address] WBC corrected for nucl RBC Auto (Bld) [#/Vol] 8.6 E9/L Normal 4.0-11.0 [facility] Comment on above: Performed By: #### 2 [id number] #### [facility] [address] [place] [address] CHEMISTRYOrdered By: SYSTEM SYSTEM on 09-25-2023 Albumin [...] - 20 Remisol Chem ED Clinical Summaryon 07-12- 2024 ED Clinical Summary ED Clinical Summary [address] [address] ED Clinical Summary Person Information Name: TISH VARGAS [place] Age: 42 Years : 1980 Sex: Female Language: Turkish PCP: YANET JUNIOR CNP Marital Status: Phone: [phone] Visit Id: Visit Reason: Weakness or fatigue; [...] 09:56:36 09/25/2023 09:56:36 09/25/2023 09:56:36 ADDRESS: [facility] [id number] PHYS DOC NOTES: MEDICAL INFORMATION: Prescriptions Given: New Medications [facility]/pharmacy #[id number], [address] [place], [place] [id number], [phone] promethazine (promethazine 25 mg Tab) 1 Tablets By Mouth every 4 hours for 3 Days. Refills: 0. Medications to Continue with No Changes Other Medications acetaminophen-oxycodon e (Percocet 325 mg-5 mg Tab) 1 Tablets [...] day. P (more content not included)... Normal [facility] ED Note-Physicianon 09-25-19 ED Note-Physician ED [...] day(s), # 18 tab(s), Refills(s) 0, Pharmacy: [facility]/pharmacy #[id number], 160, cm, 09/25/23 6:39:00 EDT, [...] Kusum 50 mL [F] 50 mL + [id number] [F] 25 mg, IV Piggyback Disposition Plan Discharge Prescription List Prescriptions promethazine 25 mg Tab, 25 mg= 1 tab(s), Oral, q4hr Follow-up With When Contact Information YANET JUNIOR In 3 days [address] [place] [address] [phone] Business (1) Additional Instructions: Problem List/Past Medical History Ongoing Abnormal uterine bleeding Anxiety Coronary artery disease Depression Diabetes Diabetic neuropathy Fatty liver GERD (gastroesophageal reflux disease) Hemorrhoids History of VT (myocardial infarction) HTN (hypertension) Hyperlipidemia Hypertension Insomnia [...] (08/20/2018), Abdominal hysterectomy (2018), Appendectomy (2018), Bilateral salpingo-oophorectomy, x2, Cardiac catheterization, Cardiac Stent, Dilation and [...] isosorbide mononit (more content not included)... Normal [facility] Comment on above: Result Comment: Elec tronically Signed By: Gunnar Rangel DO\.br\Date and Time Signed: 09/25/23 08:59 EDT ED Patient Education Noteon 09-25-2023 ED Patient Education Note ED Patient Education Note Normal [facility] ED Patient Summaryon 024 ED Patient Summary ED Patient Summary [address] [address] Patient Discharge Instructions Person Information Name: TISH VARGAS Age: 42 Years Arrival Date: 09/25/2023 06:33:17 Discharge Diagnosis: Gastritis Primary Care Physician: YANET JUNIOR CNP Provider Information Primary Provider: Gunnar Rangel DO [employer] Teacher:None The exam and treatment you received in the Emergency Department were for an urgent problem and are not intended as complete care. It is important that you follow up with a doctor, nurse practitioner, or physician?s home care assistant for ongoing care. If your symptoms [...] With: Address: When: YANET JUNIOR [address] [place], [place] [phone] Business (1) In 3 days In the event that this physician does not participate in your insurance network, please consult with your insurance company to find a nearby participating provider. Patient Education Materials: A MESSAGE TO ALL PATIENTS REGARDING OPIOIDS PRESCRIPTION OPIOIDS: WHAT YOU NEED TO KNOW Prescription opioids can be used to help relieve vxgtfckw-ev-ykiify pain and are often prescribed following a [...] guidance from the Food and Drug Administration (www.fda.gov/Drugs/Res ourcesForYou). ? Visit www.cdc.gov/drugoverdo se to learn about the risks of opioids abuse and overdose. ? If you believe you may be struggling with addiction, tell your health caretaker resort and ask for guidance or call [facility]?S National Helpline at 8-002-116-BBQN. v Source: [place] Department of Health and (more content not included)... Normal [facility] HEMATOLOGYOrdered By: SYSTEM SYSTEM on 09-25-2023 [...] 09-25-2023 Albumin [Mass/Vol] 4.7 g/dL Normal 3.3-5.0 [facility] Comment on above: Performed By: #### 2 [id number] #### [facility] [address] [place] [address] Albumin/Globulin (S) [Mass conc ratio] 1.6 Normal 1.1-2.2 [facility] Comment on above: Performed By: #### 2 [id number] #### [facility] [address] [place] [address] ALP [Catalytic activity/Vol] 105 Int._Unit/L High 21-98 [facility] Comment on above: Performed By: #### 2 894601 #### [facility] [address] [place] [address] ALT No additional P-5'-P [Catalytic activity/Vol] 9 Int._Unit/L Normal 6-46 [facility] Comment on above: Performed By: #### 2 [id number] #### [facility] [address] [place] [address] AST [Catalytic activity/Vol] 18 Int._Unit/L Normal 5-43 [facility] Comment on above: Performed By: #### 2 024822 #### [facility] [address] [place] [address] Bilirubin [Mass/Vol] 0.6 mg/dL Normal 0.0-1.1 [facility] Comment on above: Performed By: #### 2 510343 #### [facility] [address] [place] [address] Bilirubin.direct [Mass/Vol] 0.1 mg/dL Normal 0.0-0.4 [facility] Comment on above: Performed By: #### 2 988293 #### [facility] [address] [place] [address] Bilirubin.indirect [Mass or moles/Vol] 0.5 mg/dL Normal 0.1-0.9 [facility] Comment on above: Performed By: #### 2 140152 #### [facility] [address] [place] [address] Globulin (S) [Mass/Vol] 2.9 g/dL Normal 1.4-4.0 [facility] Comment on above: Performed By: #### 2 455193 #### [facility] [address] [place] [address] Protein [Mass/Vol] 7.6 g/dL Normal 6.0-7.8 [facility] Comment on above: Performed By: #### 2 833131 #### [facility] [address] [place] [address] Lipase Levelon 09-25-2023 Lipase [Catalytic activity/Vol] 76 U/L High 13-58 [facility] Comment on above: Performed By: #### 2 [id number] #### [facility] [address] [place] [address] MICRO OTHER TESTSOrdered By: Noa Choi on 09-25-2023 Rapid COV Int NEG Ctl Pass (09/25/23 6:45 AM) Normal [facility] Man Sero Rapid COV Int POS Ctl Pass (09/25/23 6:45 AM) Normal [facility] Man Sero SARS-CoV+SARS-CoV-2 (COVID-19) Ag IA.rapid Ql (Resp) Not Detected 2 (09/25/23 6:45 AM) Normal Not Detected [facility] Man Sero Comment on above: Interpretive Data: T he [employer] Veritor System for Rapid Detection of SARS-CoV-2 [...] Rapid COV Int NEG Ctl Pass Normal [facility] Comment on above: Performed By: #### 2 [id number] #### [facility] [address] [place] [address] Rapid COV Int POS Ctl Pass Normal [facility] Comment on above: Performed By: #### 2 [id number] #### [facility] [address] [place] [address] SARS-CoV+SARS-CoV-2 (COVID-19) Ag IA.rapid Ql (Resp) Not detected Normal Not Detected [facility] Comment on above: Result Comment: The lynda.comitor? System for Rapid Detection of SARS-CoV-2 is [...] other viruses or pathogens; and, in the [facility], this test is only authorized for the duration of the declaration that circumstances exist justifying the authorization of emergency use of in vitro diagnostics for detection and/or diagnosis of the virus that causes COVID-19 under Section 564(b)(1) of the Act, 21 U.S.C. ? 360bbb-3(b)(1), unless the authorization is terminated or revoked sooner. Performed By: #### 2 [id number] #### [address] [address] SEROLOGYOrdered By: Noa marrero on 09-25-2023 HCG.beta subunit (U) [Moles/Vol] Negative Normal [facility] Man Sero U BetaHcg Qualon 09-25-2023 HCG.beta subunit (U) [Moles/Vol] Negative Normal [facility] Comment on above: Performed By: #### 2 [id number] #### [facility] [address] [place] [address] UA with Cult Rflxon 09-25-19 24 Bilirubin Ql (U) Negative Normal Negative [facility] Comment on above: Performed By: #### 4 [id number] #### [facility] [address] [place] [address] Clarity (U) Clear Normal Clear [facility] Comment on above: Performed By: #### 4 [id number] #### [facility] [address] [place] [address] Color (U) Light-Yellow Normal Yellow [facility] Comment on above: Result Comment: Micr oscopic readings are only performed on those samples that meet specific criteria set forth by [facility]. Performed By: #### 4 [id number] #### [facility] [address] [place] [address] Glucose Ql (U) 4+ mg/dL Abnormal Negative [facility] Comment on above: Performed By: #### 4 [id number] #### [facility] [address] [place] [address] Hemoglobin Auto test strip (U) [Mass/Vol] Negative Normal Negative [facility] Comment on above: Performed By: #### 4 [id number] #### [facility] [address] [place] [address] Ketones Auto test strip Ql (U) Trace Abnormal Negative [facility] Comment on above: Performed By: #### 4 [id number] #### [facility] [address] [place] [address] Leukocyte esterase Auto test strip Ql (U) Negative Normal Negative [facility] Comment on above: Performed By: #### 4 [id number] #### [facility] [address] [place] [address] Nitrite Auto test strip Ql (U) Negative Normal Negative [facility] Comment on above: Performed By: #### 4 [id number] #### [facility] [address] [place] [address] pH (U) 5.0 [pH] Invalid Interpretation Code 5.0-9.0 [facility] Comment on above: Performed By: #### 4 [id number] #### [facility] [address] [place] [address] Protein Ql (U) Negative Normal Negative [facility] Comment on above: Performed By: #### 4 [id number] #### [facility] [address] [place] [address] Specific gravity (U) [Rel density] 1.027 Invalid Interpretation Code 1.005-1.030 [facility] Comment on above: Performed By: #### 4 [id number] #### [facility] [address] [place] [address] Urobilinogen (U) [Mass/Vol] Negative Normal Negative [facility] Comment on above: Performed By: #### 4 [id number] #### [facility] [address] [place] [address] Type of Urine collection method Clean Catch Normal [facility] Comment on above: Performed By: #### 4 [id number] #### [facility] [address] [place] [address] URINALYSISOrdered By: SYSTEM SYSTEM on 09-25-2023 Bilirubin Ql (U) Negative Normal Negativemg/ d L [facility] UA Auto SS Clarity (U) Clear (09/25/23 6:45 AM) Normal Clear [facility] UA Auto SS Color (U) Light-Yellow 1 (09/25/23 6:45 AM) Normal Yellow [facility] UA Auto SS Comment on above: Interpretive Data: M icroscopic readings are only performed on those samples that meet specific criteria set forth by [facility]. Glucose Ql (U) 4+ mg/dL Invalid Interpretation Code Negativemg/d L FT UA Auto SS Hemoglobin Auto test strip (U) [Mass/Vol] Negative Normal Negativemg/d L FT UA Auto SS Ketones Auto test strip Ql (U) Trace mg/dL Invalid Interpretation Code Negativemg/d L FT UA Auto SS Leukocyte [...] Desc Clean Catch (09/25/23 6:45 AM) Normal [facility] UA Auto SS eGFRon 09-25-2023 eGFR 111 mL/min/1.73 m2 Normal >=59 [facility] Comment on above: Order Comment: Order added by Discern Expert. Performed By: #### 1 [id number] ####[facility] [address] [place] [address] CHEMISTRYOrdered By: SYSTEM SYSTEM on 09-19-2023 Albumin [...] (Bld) [Mass fraction] 5.6 % Normal <=5.9% [facility] ChemAutoSS Albumin DL <= 20 mg/L (U) [...] 09-19-2023 Albumin [Mass/Vol] 4.4 g/dL Normal 3.3-5.0 [facility] Comment on above: Performed By: #### 2 [id number] #### [facility] [address] [place] [address] Albumin/Globulin (S) [Mass conc ratio] 1.6 Normal 1.1-2.2 [facility] Comment on above: Performed By: #### 2 507603 #### [facility] [address] [place] [address] ALP [Catalytic activity/Vol] 102 Int._Unit/L High 21-98 [facility] Comment on above: Performed By: #### 2 [id number] #### [facility] [address] [place] [address] ALT No additional P-5'-P [Catalytic activity/Vol] 8 Int._Unit/L Normal 6-46 [facility] Comment on above: Performed By: #### 2 [id number] #### [facility] [address] [place] [address] Anion gap [Moles/Vol] 16 mmol/L Normal 6-16 [facility] Comment on above: Performed By: #### 2 026191 #### [facility] [address] [place] [address] AST [Catalytic activity/Vol] 16 Int._Unit/L Normal 5-43 [facility] Comment on above: Performed By: #### 2 682827 #### [facility] [address] [place] [address] Bilirubin [Mass/Vol] 0.4 mg/dL Normal 0.0-1.1 [facility] Comment on above: Performed By: #### 2 774500 #### [facility] [address] [place] [address] Calcium [Mass/Vol] 9.6 mg/dL Normal 8.9-11.1 [facility] Comment on above: Performed By: #### 2 [id number] #### [facility] [address] [place] [address] Chloride [Moles/Vol] 107 mmol/L Normal 101-111 [facility] Comment on above: Performed By: #### 2 096058 #### [facility] [address] [place] [address] CO2 [Moles/Vol] 22 mmol/L Normal 21-31 [facility] Comment on above: Performed By: #### 2 695372 #### [facility] [address] [place] [address] Creatinine [Mass/Vol] 0.9 mg/dL Normal 0.5-1.3 [facility] Comment on above: Performed By: #### 2 [id number] #### [facility] [address] [place] [address] Globulin (S) [Mass/Vol] 2.7 g/dL Normal 1.4-4.0 [facility] Comment on above: Performed By: #### 2 [id number] #### [facility] [address] [place] [address] Glucose [Mass/Vol] 79 mg/dL Normal 55-199 [facility] Comment on above: Performed By: #### 2 819089 #### [facility] [address] [place] [address] Potassium [Moles/Vol] 4.4 mmol/L Normal 3.5-5.3 [facility] Comment on above: Performed By: #### 2 776219 #### [facility] [address] [place] [address] Protein [Mass/Vol] 7.1 g/dL Normal 6.0-7.8 [facility] Comment on above: Performed By: #### 2 577514 #### [facility] [address] [place] [address] Sodium [Moles/Vol] 141 mmol/L Normal 135-145 [facility] Comment on above: Performed By: #### 2 958290 #### [facility] [address] [place] [address] Urea nitrogen [Mass/Vol] 24 mg/dL High 5-21 [facility] Comment on above: Performed By: #### 2 247255 #### [facility] [address] [place] [address] Urea nitrogen/Creatinine [Mass ratio] 27 No Units High 10-20 [facility] Comment on above: Performed By: #### 2 [id number] #### [facility] [address] [place] [address] [id number] 09-19-2023 HbA1c (Bld) [Mass fraction] 5.6 % Normal <=5.9 [facility] Comment on above: Performed By: #### 7 [id number] #### [facility] [address] [place] [address] U MA/Cr Ratioon 09-19-2023 Albumin DL <= 20 mg/L (U) [Mass/Vol] mg/dL Normal 0.0-1.9 [facility] Comment on above: Performed By: #### 1 [id number] #### [facility] [address] [place] [address] Albumin/Creatinine DL <= 20 mg/L (U) [Mass ratio] NOT CALCULATED Invalid Interpretation Code .0-30.0 [facility] Comment on above: Result Comment: 30-3 00 mg/g Cr indicates an increased risk for diabetic nephropathy. >300 mg/g Cr is consistent with clinical nephropathy. Performed By: #### 1 [id number] #### [facility] [address] [place] [address] U Creatinine 95.6 mg/dL Invalid Interpretation Code [facility] Comment on above: Performed By: #### 1 [id number] #### [facility] [address] [place] [address] URINALYSISOrdered By: SYSTEM SYSTEM on 09-19-2023 Bilirubin [...] that meet specific criteria set forth by [facility]. Glucose Ql (U) 4+ mg/dL Invalid Interpretation Code Negativemg/d L [facility] UA Auto SS Hemoglobin Auto test strip (U) [Mass/Vol] Negative Normal Negativemg/d L FT UA Auto SS Ketones Auto test strip Ql (U) Negative Normal Negativemg/d L [facility] UA Auto SS Leukocyte esterase Auto test strip Ql (U) Negative Normal NegativeLeu/ uL FT UA Auto SS Nitrite Auto test strip Ql (U) Negative Normal Negativemg/d L FT UA Auto SS pH (U) 5.5 *NA* (09/19/23 10:39 AM) Invalid Interpretation Code 5.0 - 9.0 [facility] UA Auto SS Protein Ql (U) Negative Normal Negativemg/d L [facility] UA Auto SS Specific gravity (U) [Rel density] 1.026 *NA* (09/19/23 10:39 AM) Invalid Interpretation Code 1.005 - 1.030 [facility] UA Auto SS Urobilinogen (U) [Mass/Vol] Negative Normal Negativemg/d L [facility] UA Auto SS URINALYSISOrdered By: Yoana Carver on 09-19-2023 UA Spec Desc Clean Catch (09/19/23 10:39 AM) Normal [facility] UA Auto SS Urinalysis with Microon - Bilirubin Ql (U) Negative Normal Negative [facility] Comment on above: Performed By: #### 4 [id number] #### [facility] [address] [place] [address] Clarity (U) Clear Normal Clear [facility] Comment on above: Performed By: #### 4 [id number] #### [facility] [address] [place] [address] Color (U) Light-Yellow Normal Yellow [facility] Comment on above: Result Comment: Micr oscopic readings are only performed on those samples that meet specific criteria set forth by [facility]. Performed By: #### 4 [id number] #### [facility] [address] [place] [address] Glucose Ql (U) 4+ mg/dL Abnormal Negative [facility] Comment on above: Performed By: #### 4 [id number] #### [facility] [address] [place] [address] Hemoglobin Auto test strip (U) [Mass/Vol] Negative Normal Negative [facility] Comment on above: Performed By: #### 4 [id number] #### [facility] [address] [place] [address] Ketones Auto test strip Ql (U) Negative Normal Negative [facility] Comment on above: Performed By: #### 4 [id number] #### [facility] [address] [place] [address] Leukocyte esterase Auto test strip Ql (U) Negative Normal Negative [facility] Comment on above: Performed By: #### 4 [id number] #### [facility] [address] [place] [address] Nitrite Auto test strip Ql (U) Negative Normal Negative [facility] Comment on above: Performed By: #### 4 [id number] #### [facility] [address] [place] [address] pH (U) 5.5 [pH] Invalid Interpretation Code 5.0-9.0 [facility] Comment on above: Performed By: #### 4 [id number] #### [facility] [address] [place] [address] Protein Ql (U) Negative Normal Negative [facility] Comment on above: Performed By: #### 4 [id number] #### [facility] [address] [place] [address] Specific gravity (U) [Rel density] 1.026 Invalid Interpretation Code 1.005-1.030 [facility] Comment on above: Performed By: #### 4 [id number] #### [facility] [address] [place] [address] Urobilinogen (U) [Mass/Vol] Negative Normal Negative [facility] Comment on above: Performed By: #### 4 [id number] #### [facility] [address] [place] [address] Type of Urine collection method Clean Catch Normal [facility] Comment on above: Performed By: #### 4 [id number] #### [facility] [address] [place] [address] eGFRon 09-19-2023 eGFR 82 mL/min/1.73 m2 Normal >=59 [facility] Comment on above: Order Comment: Order added by Discern Expert. Performed By: #### 1 [id number] #### [facility] [address] [place] [address] XR Chest Single Viewon 08-10 XR Chest [...] mGy = na DAP = na Normal [facility] BMPon 08-10-2023 Anion gap [Moles/Vol] 13 mmol/L Normal 6-16 [facility] Comment on above: Performed By: #### 2 [id number] #### [facility] [address] [place] [address] Calcium [Mass/Vol] 9.3 mg/dL Normal 8.9-11.1 [facility] Comment on above: Performed By: #### 2 [id number] #### [facility] [address] [place] [address] Chloride [Moles/Vol] 107 mmol/L Normal 101-111 [facility] Comment on above: Performed By: #### 2 [id number] #### [facility] [address] [place] [address] CO2 [Moles/Vol] 25 mmol/L Normal 21-31 [facility] Comment on above: Performed By: #### 2 [id number] #### [facility] [address] [place] [address] Creatinine [Mass/Vol] 0.9 mg/dL Normal 0.5-1.3 [facility] Comment on above: Performed By: #### 2 [id number] #### [facility] [address] [place] [address] Glucose [Mass/Vol] 107 mg/dL Normal 55-199 [facility] Comment on above: Performed By: #### 2 [id number] #### [facility] [address] [place] [address] Potassium [Moles/Vol] 5.3 mmol/L Normal 3.5-5.3 [facility] Comment on above: Performed By: #### 2 034986 #### [facility] [address] [place] [address] Sodium [Moles/Vol] 140 mmol/L Normal 135-145 [facility] Comment on above: Performed By: #### 2 519669 #### [facility] [address] [place] [address] Urea nitrogen [Mass/Vol] 15 mg/dL Normal 5-21 [facility] Comment on above: Performed By: #### 2 663730 #### [facility] [address] [place] [address] Urea nitrogen/Creatinine [Mass ratio] 17 No Units Normal 10-20 [facility] Comment on above: Performed By: #### 2 559050 #### [facility] [address] [place] [address] CBC w/ Auto Diffon 4 Basophils/100 WBC (Bld) 0.4 % Normal 0.0-2.0 [facility] Comment on above: Performed By: #### 2 775741 #### [facility] [address] [place] [address] Basophils/Leukocytes Auto (Bld) [Pure # fraction] 0.0 E9/L Normal 0.0-0.2 [facility] Comment on above: Performed By: #### 2 212036 #### [facility] [address] [place] [address] Eosinophils (Bld) [#/Vol] 0.3 E9/L Normal 0.0-0.5 [facility] Comment on above: Performed By: #### 2 413781 #### [facility] [address] [place] [address] Eosinophils/100 WBC (Bld) 3.1 % Normal 0.0-8.0 [facility] Comment on above: Performed By: #### 2 148125 #### [facility] [address] [place] [address] Erythrocyte distribution width (RBC) [Ratio] 14.5 % High 10.9-14.2 [facility] Comment on above: Performed By: #### 2 048309 #### [facility] [address] [place] [address] Hematocrit (Bld) [Volume fraction] 41.3 % Normal 34.0-46.0 [facility] Comment on above: Performed By: #### 2 131750 #### [facility] [address] [place] [address] Hemoglobin (Bld) [Mass/Vol] 14.0 g/dL Normal 12.0-16.0 [facility] Comment on above: Performed By: #### 2 038900 #### [facility] [address] [place] [address] Lymphocytes (Bld) [#/Vol] 2.9 E9/L Normal 1.0-4.0 [facility] Comment on above: Performed By: #### 2 149796 #### [facility] [address] [place] [address] Lymphocytes/100 WBC (Bld) 30.6 % Normal 14.0-50.0 [facility] Comment on above: Performed By: #### 2 043937 #### [facility] [address] [place] [address] MCH (RBC) [Entitic mass] 31.1 pg Normal 27.0-34.0 [facility] Comment on above: Performed By: #### 2 902814 #### [facility] [address] [place] [address] MCHC (RBC) [Mass/Vol] 33.8 g/dL Normal 31.4-36.0 [facility] Comment on above: Performed By: #### 2 493405 #### [facility] [address] [place] [address] MCV (RBC) [Entitic vol] 92.2 fL Normal 80.0-100.0 [facility] Comment on above: Performed By: #### 2 511905 #### [facility] [address] [place] [address] Monocytes (Bld) [#/Vol] 0.7 E9/L Normal 0.2-1.0 [facility] Comment on above: Performed By: #### 2 474890 #### [facility] [address] [place] [address] Neutrophils (Bld) [#/Vol] 5.7 E9/L Normal 2.0-7.5 [facility] Comment on above: Performed By: #### 2 622115 #### [facility] [address] [place] [address] Neutrophils/100 WBC (Bld) 58.9 % Normal 36.0-75.0 [facility] Comment on above: Performed By: #### 2 740345 #### [facility] [address] [place] [address] Platelet 215.0 E9/L Normal 150.0-500.0 [facility] Comment on above: Performed By: #### 2 696758 #### [facility] [address] [place] [address] Platelet mean volume (Bld) [Entitic vol] 8.5 fL Normal 6.4-10.8 [facility] Comment on above: Performed By: #### 2 713812 #### [facility] [address] [place] [address] RBC (Bld) [#/Vol] 4.5 E12/L Normal 4.3-5.9 [facility] Comment on above: Performed By: #### 2 601210 #### [facility] [address] [place] [address] WBC corrected for nucl RBC Auto (Bld) [#/Vol] 9.6 E9/L Normal 4.0-11.0 [facility] Comment on above: Performed By: #### 2 835293 #### [facility] [address] [place] [address] CHEMISTRYOrdered By: SYSTEM SYSTEM on 08-10-2023 Troponin [...] Instructions For Use, Meryl Antionette, October 2017) Anion gap [Moles/Vol] 13 mmol/L [...] Sensitivity Troponin I Instructions For Use, Meryl Warriormine, October 2017) Urea nitrogen [Mass/Vol] 15 mg/dL Normal 5 - 21 mg/dL Remisol Chem Urea nitrogen/Creatinine [Mass ratio] 17 mg/mg Normal 10 - 20 [facility] COAGULATIONOrdered By: Michelle Palumbo on 08-10-2023 aPTT Coag (PPP) [Time] 30.5 s Normal 25.1 - 36.5 second(s) [facility]ag Comment on above: Interpretive Data: P poly 15 days - 4 weeks 1 - [...] the same coagulation reagent and instrumentation as [facility]. Currently there are no coagulation studies available worldwide for children to 14 days, and no normal ranges. Heparin therapeutic range (represented by Anti-Factor Xa activity of 0.2 - 0.4 U/mL) corresponds to PTT of 56.6 - 109.0 sec. INR Coag (PPP) [Relative time] 0.80 {INR} Invalid Interpretation Code [facility] Comment on above: Interpretive Data: I NR results are specifically intended to assess patients stabilized on long-term Anticoagulation therapy suggested INR s Less Intensive Anticoagulation 2.0 3.0 Conventional Range 3.0 4.5 PT Coag (PPP) [Time] 8.9 s Low 9.4 - 1 2.5 second(s) [facility] Comment on above: Interpretive Data: [...] the same coagulation reagent and instrumentation as [facility]. Currently there are no coagulation studies available worldwide for children to 14 days, and no normal ranges. Consent for Treatmenton 07-15 Consent for Treatment [id number] 0TIFF Normal [facility] Discharge Instructionson Discharge Instructions [id number] 0TIFF Normal [facility] ED Clinical Summaryon 2023 ED Clinical Summary [place] [id number] ED Clinical Summary Person Information Name: TISH VARGAS Riley Ver[facility] Age: 42 Years : 1980 Sex: Female Language: Turkish PCP: YANET JUNIOR CNP Marital Status: Phone: [phone] Visit Id: Visit Reason: Shortness of breath; [...] 08/10/2023 22:15:29 08/10/2023 22:15:29 08/10/2023 22:15:29 [facility] [id number] [facility] DOC NOTES: MEDICAL INFORMATION: Prescriptions Given: Medications to Continue with No Changes Other Medications acetaminophen-oxycodon e (Percocet 325 mg-5 mg Tab) 1 Tablets [...] EDUCATION INFORMATION: Instructions: Nonspecific Chest Pain, Adult, Nyce-np-Xhjl Follow up: With: Address: When: Koko Grajeda, (more content not included)... Normal [facility] ED Note-Physicianon 08-10-19 ED Note-Physician Basic [...] stents. Reports that she is unsure which vice president of communications she follows up with. Denies any nausea [...] and Complexity of Problems Differential Diagnosis: [] [facility] Data External documents reviewed: [] My [...] chest pain (R07.9: Chest pain, unspecified) Orders: acetaminophen-oxycodon e, 1 EA, Tab, Oral, Once, Stop date 08/10/23 21:39:00 EDT, STAT, Start date 08/10/23 21:39:00 EDT Al hydroxide/Mg hydroxide/simethicone, 30 mL, Susp-Oral, Oral, Once, Stop date 08/10/23 21:39:00 EDT, STAT, Sta (more content not included)... Normal [facility] Comment on above: Result Comment: Elec [...] these instructions at home: Medicines ? Take rfbo-znz-okhvdvn and prescription medicines only as told by [...] Eating a heart-healthy diet. A diet and medical staff specialist (dietitian) can help you to learn [...] provider. Document Revised: 05/16/2021 Document Reviewed: 05/16/2021 [employer] Patient Education ? 2022 [employer]. Normal [facility] ED Patient Summaryon 024 ED Patient Summary [place] [id number] Patient Discharge Instructions Person Information Name: TISH VARGAS Age: 42 Years Arrival Date: 08/10/2023 19:03:55 Discharge Diagnosis: Nonspecific chest pain Primary Care Physician: YANET JUNIOR CNP Provider Information Primary Provider: Juan Arnold DO [employer] Teacher:None The exam and treatment you received in the Emergency Department were for an urgent problem and are not intended as complete care. It is important that you follow up with a doctor, nurse practitioner, or physician?s home care assistant for ongoing care. If your symptoms [...] Instructions: With: Address: When: Koko Vasquez [address] [place] [address] [facility] (1) In 3 days 08/13/2023 Comments: Call Dr for diagnosis based follow up With: Address: When: YANET JUNIOR [address] [place], [place] [phone] [facility] (1) In 3 days 08/13/2023 Comments: Call Dr for diagnosis based follow up In the event that this physician does not participate in your insurance network, please consult with your insurance company to find a nearby participating provider. Patient Education Materials: Nonspecific Chest Pain, Adult, Zeeo-xk-Zlqm A MESSAGE TO ALL PATIENTS REGARDING OPIOIDS PRESCRIPTION OPIOIDS: WHAT YOU NEED TO KNOW Prescription opioids can be used to help relieve nqfrwwni-bu-eqaqgc pain and are often prescribed following a [...] guidance from the Food and Drug Administration (www.fda.gov/Drugs/Res ourcesForYou). ? Visit www.cdc.g (more content not included)... Normal [facility] HEMATOLOGYOrdered By: SYSTEM SYSTEM on 08-10-2023 [...] Remisol Heme Monitor Recordon 08-10-2023 Monitor Record [id number]. 00TIFF Normal [facility] PT & PTTon 08-10-2023 aPTT Coag (PPP) [Time] 30.5 second(s) Normal 25.1-36.5 [facility] Comment on above: Result Comment: Para [...] the same coagulation reagent and instrumentation as [facility]. Currently there are no coagulation studies available worldwide for children to 14 days, and no normal ranges. Heparin therapeutic range (represented by Anti-Factor Xa activity of 0.2 - 0.4 U/mL) corresponds to PTT of 56.6 - 109.0 sec. Performed By: #### 1 [id number] #### [facility] [address] [place] [address] INR Coag (PPP) [Relative time] 0.80 {INR} Invalid Interpretation Code [facility] Comment on above: Result Comment: INR results are specifically intended to assess patients stabilized on long-term Anticoagulation therapy suggested INR?s ?Less Intensive Anticoagulation? 2.0 ? 3.0 Conventional Range 3.0 ? 4.5 Performed By: #### 1 [id number] #### [facility] [address] [place] [address] PT Coag (PPP) [Time] 8.9 second(s) Low 9.4-12.5 [facility] Comment on above: Result Comment: 15 [...] were obtained from a study by Chuy [place], et al. prepared from 1437 samples obtained at 7 different centers using the same coagulation reagent and instrumentation as [facility]. Currently there are no coagulation studies available worldwide for children to 14 days, and no normal ranges. Performed By: #### 1 [id number] #### [facility] [address] [place] [address] Troponin 0 Hr.on 08-10-2023 Troponin I.cardiac [Mass/Vol] ng/mL Low 10.10-27.10 [facility] Comment on above: Result Comment: The 95% CI (Confidence Interval) PPV (Positive Predictive Value) for myocardial infarction in females is 38 pg/mL, in males 51 pg/mL. The results should be used in conjunction with clinical conditions of myocardial infarction. (Access High Sensitivity Troponin I Instructions For Use, [employer], October 2017) Performed By: #### 1 [id number] #### [facility] [address] [place] [address] Troponin 1 Hr.on 08-10-2023 Troponin I.cardiac [Mass/Vol] ng/mL Low 10.10-27.10 [facility] Comment on above: Order Comment: 2019 Result Comment: The 95% CI (Confidence Interval) PPV (Positive Predictive Value) for myocardial infarction in females is 38 pg/mL, in males 51 pg/mL. The results should be used in conjunction with clinical conditions of myocardial infarction. (Access High Sensitivity Troponin I Instructions For Use, [employer], October 2017) Performed By: #### 1 [id number] #### [facility] [address] [place] [address] eGFRon 08-10-2023 eGFR 82 mL/min/1.73 m2 Normal >=59 [facility] Comment on above: Order Comment: Order added by Discern Expert. Performed By: #### 1 [id number] #### [facility] [address] [place] [address] C Urineon 08-01-2023 Bacteria identified Cx Nom (U) Microbiology PROCEDURE: Urine Culture [R1] SOURCE: U CleanCatch BODY SITE: COLLECTED DATE/TIME: 07/29/2023 23:33 EDT RECEIVED DATE/TIME: 07/30/2023 00:29 EDT START DATE/TIME: 07/30/2023 00:29 EDT FREE TEXT SOURCE: Phoebe Dubon PA-C. Ling GUZMAN, Phoebe Hall FINAL REPORTS Final Report [] Verified Date/Time: 08/01/2023 09:01 EDT <10,000 cfu/ml Mixed skin contaminants Performing Locations R1: This test was performed at: [facility], [address] [place] [address], [phone]- , , Normal [facility] Comment on above: Performed By: #### 2 737314 #### [facility] [address] [place] [address] B hCG Qualon 07-30-2023 Beta HCG ( test) Ql Negative [facility] Comment on above: Performed By: #### 2 [id number] #### [facility] [address] [place] [address] BMPon 07-30-2023 Anion gap [Moles/Vol] 12 mmol/L Normal 6-16 [facility] Comment on above: Performed By: #### 2 073236 #### [facility] [address] [place] [address] Calcium [Mass/Vol] 9.6 mg/dL Normal 8.9-11.1 [facility] Comment on above: Performed By: #### 2 010103 #### [facility] [address] [place] [address] Chloride [Moles/Vol] 107 mmol/L Normal 101-111 [facility] Comment on above: Performed By: #### 2 976846 #### [facility] [address] [place] [address] CO2 [Moles/Vol] 24 mmol/L Normal 21-31 [facility] Comment on above: Performed By: #### 2 820629 #### [facility] [address] [place] [address] Creatinine [Mass/Vol] 0.8 mg/dL Normal 0.5-1.3 [facility] Comment on above: Performed By: #### 2 752045 #### [facility] [address] [place] [address] Glucose [Mass/Vol] 103 mg/dL Normal 55-199 [facility] Comment on above: Performed By: #### 2 966330 #### [facility] [address] [place] [address] Potassium [Moles/Vol] 4.3 mmol/L Normal 3.5-5.3 [facility] Comment on above: Performed By: #### 2 083938 #### [facility] [address] [place] [address] Sodium [Moles/Vol] 139 mmol/L Normal 135-145 [facility] Comment on above: Performed By: #### 2 752558 #### [facility] [address] [place] [address] Urea nitrogen [Mass/Vol] 16 mg/dL Normal 5-21 [facility] Comment on above: Performed By: #### 2 891085 #### [facility] [address] [place] [address] Urea nitrogen/Creatinine [Mass ratio] 20 No Units Normal 10-20 [facility] Comment on above: Performed By: #### 2 166254 #### [facility] [address] [place] [address] CBC w/ Auto Diffon 4 Basophils/100 WBC (Bld) 0.7 % Normal 0.0-2.0 [facility] Comment on above: Performed By: #### 2 514734 #### [facility] [address] [place] [address] Basophils/Leukocytes Auto (Bld) [Pure # fraction] 0.0 E9/L Normal 0.0-0.2 [facility] Comment on above: Performed By: #### 2 667612 #### [facility] [address] [place] [address] Eosinophils (Bld) [#/Vol] 0.2 E9/L Normal 0.0-0.5 [facility] Comment on above: Performed By: #### 2 395635 #### [facility] [address] [place] [address] Eosinophils/100 WBC (Bld) 2.7 % Normal 0.0-8.0 [facility] Comment on above: Performed By: #### 2 544057 #### [facility] [address] [place] [address] Erythrocyte distribution width (RBC) [Ratio] 14.1 % Normal 10.9-14.2 [facility] Comment on above: Performed By: #### 2 059013 #### [facility] [address] [place] [address] Hematocrit (Bld) [Volume fraction] 43.6 % Normal 34.0-46.0 [facility] Comment on above: Performed By: #### 2 399028 #### [facility] [address] [place] [address] Hemoglobin (Bld) [Mass/Vol] 14.7 g/dL Normal 12.0-16.0 [facility] Comment on above: Performed By: #### 2 851263 #### [facility] [address] [place] [address] Lymphocytes (Bld) [#/Vol] 2.7 E9/L Normal 1.0-4.0 [facility] Comment on above: Performed By: #### 2 409825 #### [facility] [address] [place] [address] Lymphocytes/100 WBC (Bld) 40.4 % Normal 14.0-50.0 [facility] Comment on above: Performed By: #### 2 512563 #### [facility] [address] [place] [address] MCH (RBC) [Entitic mass] 30.9 pg Normal 27.0-34.0 [facility] Comment on above: Performed By: #### 2 794230 #### [facility] [address] [place] [address] MCHC (RBC) [Mass/Vol] 33.6 g/dL Normal 31.4-36.0 [facility] Comment on above: Performed By: #### 2 147503 #### [facility] [address] [place] [address] MCV (RBC) [Entitic vol] 92.0 fL Normal 80.0-100.0 [facility] Comment on above: Performed By: #### 2 748995 #### [facility] [address] [place] [address] Monocytes (Bld) [#/Vol] 0.4 E9/L Normal 0.2-1.0 [facility] Comment on above: Performed By: #### 2 720031 #### [facility] [address] [place] [address] Neutrophils (Bld) [#/Vol] 3.3 E9/L Normal 2.0-7.5 [facility] Comment on above: Performed By: #### 2 179395 #### [facility] [address] [place] [address] Neutrophils/100 WBC (Bld) 50.0 % Normal 36.0-75.0 [facility] Comment on above: Performed By: #### 2 483980 #### [facility] [address] [place] [address] Platelet 208.0 E9/L Normal 150.0-500.0 [facility] Comment on above: Performed By: #### 2 788100 #### [facility] [address] [place] [address] Platelet mean volume (Bld) [Entitic vol] 8.4 fL Normal 6.4-10.8 [facility] Comment on above: Performed By: #### 2 825293 #### [facility] [address] [place] [address] RBC (Bld) [#/Vol] 4.7 E12/L Normal 4.3-5.9 [facility] Comment on above: Performed By: #### 2 580135 #### [facility] [address] [place] [address] WBC corrected for nucl RBC Auto (Bld) [#/Vol] 6.6 E9/L Normal 4.0-11.0 [facility] Comment on above: Performed By: #### 2 773539 #### [facility] [address] [place] [address] CT Abdomen/Pelvis w/o Contra ston 07-30-2023 CT [...] Oral contrast amount in ml's: 0 Normal [facility] Discharge Instructionson Discharge Instructions [id number] 0TIFF Normal [facility] ED Clinical Summaryon 2023 ED Clinical Summary [place] [id number] ED Clinical Summary Person Information Name: TISH VARGAS [place]/[facility] Age: 42 Years : 1980 Sex: Female Language: Turkish PCP: YANET JUNIOR CNP Marital Status: Phone: [phone] Visit Id: Visit Reason: Chest pain; Nausea; [...] 07/30/2023 02:22:55 07/30/2023 02:22:55 07/30/2023 02:22:55 ADDRESS: [address] [place] [id number] PHYS DOC NOTES: MEDICAL INFORMATION: Prescriptions Given: New Medications [facility]/pharmacy #[id number], [address] [place], [place] [id number], [phone] cephalexin (Keflex 500 mg Cap) 1 Capsules By Mouth 3 times a day for 5 Days. Refills: 0. phenazopyridine (Pyridium 100 mg Tab) 1 Tablets By Mouth 3 times a day for 3 Days. Refills: 0. Medications to Continue Taking That Have Changed [facility]/pharmacy #[id number], [address], [place] [id number], [phone] START: ondansetron (Zofran ODT 4 mg Tab-Dis) [...] to Continue with No Changes Other Medications acetaminophen-oxycodon e (Percocet 325 mg-5 mg Tab) 1 Tablets [...] 0. nitrog (more content not included)... Normal [facility] ED Note-Physicianon 07-30-19 ED Note-Physician Basic [...] and Complexity of Problems Differential Diagnosis: [] [facility] Data External documents reviewed: [] My [...] is reviewed just filled a prescription for Hope on the . CT imaging does not show any obstructing kidney stones. I discussed findings with patient patient requesting pain medication for home. Explained I am not comfortable as there is no indication as she has no obstructing kidney stone as she also has just filled the prescription for Hope 2 days ago. Patient has multiple short-term [...] day(s), # 15 cap(s), Refills(s) 0, Pharmacy: [facility]/pharmacy #[id number], 160, cm, 07/29/23 21:34:00 EDT, [...] q8hr, # 12 tab(s), Refills(s) 0, Pharmacy: [facility]/pharmacy #[id number], 160, cm, 07/29/23 21:34:00 EDT, Height/Length Dosing, 119, kg, 07/29/23 21:34:00 EDT, Weight Dosing ondansetron, 4 mg = 2 mL, Injection, IV Push, Once, Stop date 07/29/23 23:22:00 EDT, STAT, Start date 07/29/23 23:22:00 EDT, 07/29/23 23:22:00 EDT oxycodone, 5 (more content not included)... Normal [facility] Comment on above: Result Comment: Elec [...] these instructions at home: Medicines ? Take pitk-zvx-ttcokbf and prescription medicines only as told by [...] provider. Document Revised: 10/12/2020 Document Reviewed: 10/12/2020 [email or web address] Patient Education ? 2022 [employer]. Orthopedics Flank Pain, Adult Flank pain is [...] as told by your doctor. ? Take coax-vaf-adfmjaw and prescription medicines only as told by [...] short of (more content not included)... Normal [facility] ED Patient Summaryon 024 ED Patient Summary [address] [address] Patient Discharge Instructions Person Information Name: TISH VARGAS Age: 42 Years Arrival Date: 07/29/2023 21:12:09 Discharge Diagnosis: Acute UTI (urinary tract infection); Flank pain Primary Care Physician: YANET JUNIOR CNP Provider Information Primary Provider: Janes Bowles DO [employer] Teacher:None The exam and treatment you received in the Emergency Department were for an urgent problem and are not intended as complete care. It is important that you follow up with a doctor, nurse practitioner, or physician?s home care assistant for ongoing care. If your symptoms [...] With: Address: When: YANET JUNIOR [address] [place], [place] [phone] Business (1) In 3 days 08/02/2023 Comments: [...] Patient Education Materials: Urinary Tract Infection, Adult, Ozff-rw-Hmbh; Flank Pain, Adult, Okwn-eb-Cewn A MESSAGE TO ALL PATIENTS REGARDING OPIOIDS PRESCRIPTION OPIOIDS: WHAT YOU NEED TO KNOW Prescription opioids can be used to help relieve whifzzun-kl-ghdcoy pain and are often prescribed following a [...] Drug Administr (more content not included)... Normal [facility] Hep Func Panelon 07-30-2023 Albumin [Mass/Vol] 4.5 g/dL Normal 3.3-5.0 [facility] Comment on above: Performed By: #### 2 256000 #### [facility] [address] [place] [address] Albumin/Globulin (S) [Mass conc ratio] 2.0 Normal 1.1-2.2 [facility] Comment on above: Performed By: #### 2 746233 #### [facility] [address] [place] [address] ALP [Catalytic activity/Vol] 99 Int._Unit/L High 21-98 [facility] Comment on above: Performed By: #### 2 303197 #### [facility] [address] [place] [address] ALT No additional P-5'-P [Catalytic activity/Vol] 10 Int._Unit/L Normal 6-46 [facility] Comment on above: Performed By: #### 2 322570 #### [facility] [address] [place] [address] AST [Catalytic activity/Vol] 17 Int._Unit/L Normal 5-43 [facility] Comment on above: Performed By: #### 2 711744 #### [facility] [address] [place] [address] Bilirubin [Mass/Vol] 0.5 mg/dL Normal 0.0-1.1 [facility] Comment on above: Performed By: #### 2 484374 #### [facility] [address] [place] [address] Bilirubin.direct [Mass/Vol] 0.1 mg/dL Normal 0.0-0.4 [facility] Comment on above: Performed By: #### 2 958967 #### [facility] [address] [place] [address] Bilirubin.indirect [Mass or moles/Vol] 0.4 mg/dL Normal 0.1-0.9 [facility] Comment on above: Performed By: #### 2 870720 #### [facility] [address] [place] [address] Globulin (S) [Mass/Vol] 2.3 g/dL Normal 1.4-4.0 [facility] Comment on above: Performed By: #### 2 [id number] #### [facility] [address] [place] [address] Protein [Mass/Vol] 6.8 g/dL Normal 6.0-7.8 [facility] Comment on above: Performed By: #### 2 [id number] #### [facility] [address] [place] [address] Lipase Levelon 07-30-2023 Lipase [Catalytic activity/Vol] 22 U/L Normal 13-58 [facility] Comment on above: Performed By: #### 2 [id number] #### [facility] [address] [place] [address] RAD - Preliminary Cat Scan R eporton 07-30-2023 RAD - Preliminary Cat Scan Report [id number]#1.0 0TIFF Normal [facility] Troponin 0 Hr.on 07-30-2023 Troponin 2.60 pg/mL Low 10.10-27.10 [facility] Comment on above: Result Comment: The 95% CI (Confidence Interval) PPV (Positive Predictive Value) for myocardial infarction in females is 38 pg/mL, in males 51 pg/mL. The results should be used in conjunction with clinical conditions of myocardial infarction. (Access High Sensitivity Troponin I Instructions For Use, Meryl Droplet, October 2017) Performed By: #### 1 [id number] #### [facility] [address] [place] [address] UA with Cult Rflxon 07-30-19 24 Bilirubin Ql (U) Negative Normal Negative [facility] Comment on above: Performed By: #### 4 [id number] #### [facility] [address] [place] [address] Clarity (U) Turbid Abnormal Clear [facility] Comment on above: Performed By: #### 4 [id number] #### [facility] [address] [place] [address] Color (U) [place] Abnormal Yellow [facility] Comment on above: Result Comment: Micr oscopic readings are only performed on those samples that meet specific criteria set forth by [facility]. Performed By: #### 4 [id number] #### [facility] [address] [place] [address] Glucose Ql (U) 4+ mg/dL Abnormal Negative [facility] Comment on above: Performed By: #### 4 [id number] #### [facility] [address] [place] [address] Hemoglobin Auto test strip (U) [Mass/Vol] 3+ mg/dL Abnormal Negative [facility] Comment on above: Performed By: #### 4 [id number] #### [facility] [address] [place] [address] Ketones Auto test strip Ql (U) Negative Normal Negative [facility] Comment on above: Performed By: #### 4 [id number] #### [facility] [address] [place] [address] Leukocyte esterase Auto test strip Ql (U) 500 Simona/uL Abnormal Negative [facility] Comment on above: Performed By: #### 4 [id number] #### [facility] [address] [place] [address] Nitrite Auto test strip Ql (U) Negative Normal Negative [facility] Comment on above: Performed By: #### 4 [id number] #### [facility] [address] [place] [address] pH (U) 5.5 [pH] Invalid Interpretation Code 5.0-9.0 [facility] Comment on above: Performed By: #### 4 [id number] #### [facility] [address] [place] [address] Protein Ql (U) 1+ mg/dL Abnormal Negative [facility] Comment on above: Performed By: #### 4 [id number] #### [facility] [address] [place] [address] Specific gravity (U) [Rel density] 1.019 Invalid Interpretation Code 1.005-1.030 [facility] Comment on above: Performed By: #### 4 [id number] #### [facility] [address] [place] [address] Urobilinogen (U) [Mass/Vol] Negative Normal Negative [facility] Comment on above: Performed By: #### 4 [id number] #### [facility] [address] [place] [address] Bacteria Auto Ql (U) 2+ /HPF Abnormal Trace [facility] Comment on above: Performed By: #### 4 [id number] #### [facility] [address] [place] [address] Epithelial cells.squamous Auto (Urine sed) [#/Area] 3-4 Abnormal 0-2 [facility] Comment on above: Performed By: #### 4 [id number] #### [facility] [address] [place] [address] Mucus Auto Ql (U) Trace Normal Negative [facility] Comment on above: Performed By: #### 4 [id number] #### [facility] [address] [place] [address] RBC Ql (U) 4-20 Abnormal 0-3 [facility] Comment on above: Performed By: #### 4 [id number] #### [facility] [address] [place] [address] WBC Auto (Urine sed) [#/Area] 0-5 Normal 0-5 [facility] Comment on above: Performed By: #### 4 [id number] #### [facility] [address] [place] [address] eGFRon 07-30-2023 eGFR 94 mL/min/1.73 m2 Normal >=59 [facility] Comment on above: Order Comment: Order added by Discern Expert. Performed By: #### 1 [id number] #### [facility] [address] [place] [address] CHEMISTRYOrdered By: SYSTEM SYSTEM on 07-29-2023 Albumin [...] Instructions For Use, Meryl Antionette, October 2017) Urea nitrogen [Mass/Vol] 16 mg/dL Normal 5 - 21 mg/dL Remisol Chem Urea nitrogen/Creatinine [Mass ratio] 20 mg/mg Normal 10 - 20 Remisol Chem Consent for Treatmenton 07-14 Consent for Treatment [id number] 0TIFF Normal [facility] HEMATOLOGYOrdered By: SYSTEM SYSTEM on 07-29-2023 [...] test) Ql Negative (07/29/23 11:35 PM) Normal [facility] Man Sero UA with Cult Rflxon 07-29-19 Type of Urine collection method Clean Catch Normal [facility] Comment on above: Performed By: #### 4 [id number] #### [facility] [address] [place] [address] URINALYSISOrdered By: Bruce Woo on 07-29-2023 Bacteria Auto Ql (U) 2+ /HPF Invalid Interpretation Code Trace/HPF [facility] UA Auto SS Epithelial cells.squamous Auto (Urine sed) [#/Area] 3-4 graded/HPF Invalid Interpretation Code 0-2graded/HP F FT UA Auto SS Mucus Auto Ql (U) Trace Normal Negative [facility] UA Auto SS RBC Ql (U) 4-20 graded/HPF Invalid Interpretation Code 0-3graded/HP F FT UA Auto SS WBC Auto (Urine sed) [#/Area] 0-5 graded/HPF Normal 0-5graded/HP F [facility] UA Auto SS URINALYSISOrdered By: SYSTEM SYSTEM on 07-29-2023 Bilirubin Ql (U) Negative Normal Negativemg/ d L [facility] UA Auto SS Clarity (U) Turbid *ABN* (07/29/23 11:33 PM) Invalid Interpretation Code Clear [facility] UA Auto SS Color (U) [place] 1 *ABN* (07/29/23 11:33 PM) Invalid Interpretation Code Yellow [facility] UA Auto SS Comment on above: Interpretive Data: M icroscopic readings are only performed on those samples that meet specific criteria set forth by [facility]. Glucose Ql (U) 4+ mg/dL [...] Desc Clean Catch (07/29/23 11:33 PM) Normal [facility] UA Auto SS CT Abdomen/Pelvis w/o Contra yuval 05-28-2023 CT Abdomen/Pelvis w/o Contrast Exam Date/Time: [...] Oral contrast amount in ml's: 0 Normal [facility] Consent for Treatmenton 05-14 Consent for Treatment [id number] 0TIFF Normal [facility] Discharge Instructionson Discharge Instructions [id number]. 00TIFF Normal [facility] ED Clinical Summaryon 2023 ED Clinical Summary [address] [address] ED Clinical Summary Person Information Name: TISH VARGAS [place] Age: 42 Years : 1980 Sex: Female Language: Turkish PCP: YANET JUNIOR CNP Marital Status: Phone: [phone] Visit Id: Visit Reason: Nausea; Hematuria; Flank [...] 05/28/2023 15:54:36 05/28/2023 15:54:36 05/28/2023 15:54:36 ADDRESS: [address] [place] [id number] PHYS DOC NOTES: MEDICAL INFORMATION: Prescriptions Given: New Medications [facility]/pharmacy #[id number], [address], [place] [id number], [phone] ibuprofen (ibuprofen 600 mg Tab) 1 Tablets By Mouth every 8 hours for 7 Days. Refills: 0. Medications to Continue Taking That Have Changed [facility]/pharmacy #[id number], [address], [place] [id number], [phone] START: acetaminophen-oxycodon e (Percocet 5 mg-325 mg oral tablet) 1 Tablets By Mouth every 6 hours as needed as needed for pain for 3 Days. Refills: 0. START: tamsulosin (Flomax 0.4 mg Cap) 1 Capsules By Mouth every day. Refills: 0. Other Medications START: acetaminophen-oxycodon e (Percocet 325 mg-5 mg Tab) 1 Tablets [...] YANET JUNIOR (more content not included)... Normal [facility] ED Note-Physicianon 05-28-19 ED Note-Physician Basic [...] Making Patient seen and evaluated with the PIPE BENDER student. I had a eqwj-mu-sztm interaction with the patient. I personally performed [...] Renal colic (N23: Unspecified renal colic) Ordered: acetaminophen-oxycodon e, 1 tab(s), Oral, q6hr as needed for [...] Daily, # 10 cap(s), Refills(s) 0, Pharmacy: [facility]/pharmacy #[id number], 160, cm, 05/28/23 13:08:00 EDT, [...] results, tr (more content not included)... Normal [facility] Comment on above: Result Comment: Elec tronically Signed By: Jazzy GUZMAN, Regis\.br\Date and Time Signed: 05/28/23 15:38 EDT\.br\Electronically Co-Signed [...] that you are feeling: Medicines ? Take uaxp-gom-sffbxtw and prescription medicines only as told by [...] by passing a kidney stone. ? Take rrme-trx-amwosxz and prescription medicines only as told by [...] provider. Document Revised: 11/04/2021 Document Reviewed: 11/04/2021 [email or web address] Patient Education ? 2022 [employer] Normal [facility] ED Patient Summaryon 024 ED Patient Summary [place] [address] Patient Discharge Instructions Person Information Name: TISH VARGAS Age: 42 Years Arrival Date: 05/28/2023 12:57:53 Discharge Diagnosis: Renal colic Primary Care Physician: YANET JUNIOR CNP Provider Information Primary Provider: Mikaela Judd M.D. [employer] Teacher:Regis Purcell PA-C The exam and treatment you received in the Emergency Department were for an urgent problem and are not intended as complete care. It is important that you follow up with a doctor, nurse practitioner, or physician?s home care assistant for ongoing care. If your symptoms [...] With: Address: When: YANET JUNIOR [address] [place], [place] [phone] Business (1) In 3 days 05/31/2023 In the event that this physician does not participate in your insurance network, please consult with your insurance company to find a nearby participating provider. Patient Education Materials: Renal Colic A MESSAGE TO ALL PATIENTS REGARDING OPIOIDS PRESCRIPTION OPIOIDS: WHAT YOU NEED TO KNOW Prescription opioids can be used to help relieve ylxuaxsc-mo-axmemk pain and are often prescribed following a [...] guidance from the Food and Drug Administration (www.fda.gov/Drugs/Res ourcesForYou). ? Visit www.cdc.gov/drugoverdo se to learn about the risks of opioids abuse and overdose. ? If you believe you may be struggling with addiction, tell your health caretaker resort and ask for guidance or call [facility] National Helpline at 8-775-765-JSSV. v Source: (more content not included)... Normal [facility] UA With Cult Reflexon 2023 Bacteria LM Ql (Urine sed) TRACE Normal Trace [facility] Comment on above: Performed By: #### 1 [id number] #### [facility] [address] [place] [address] Bilirubin Ql (U) 1+ Abnormal Negative [facility] Comment on above: Performed By: #### 1 [id number] #### [facility] [address] [place] [address] Clarity (U) CLOUDY Abnormal Clear [facility] Comment on above: Performed By: #### 1 [id number] #### [facility] [address] [place] [address] Color (U) YELLOW Normal Yellow [facility] Comment on above: Performed By: #### 1 [id number] #### [facility] [address] [place] [address] Crystals LM Ql (Urine sed) Present Normal [facility] Comment on above: Performed By: #### 1 [id number] #### [facility] [address] [place] [address] Epithelial cells.squamous LM.HPF (Urine sed) [#/Area] 0-2 Normal 0-2 [facility] Comment on above: Performed By: #### 1 [id number] #### [facility] [address] [place] [address] Glucose Test strip (U) [Mass/Vol] 3+ Abnormal Negative [facility] Comment on above: Performed By: #### 1 [id number] #### [facility] [address] [place] [address] Hemoglobin Ql (U) 3+ Abnormal Negative [facility] Comment on above: Performed By: #### 1 [id number] #### [facility] [address] [place] [address] Ketones (U) [Mass/Vol] TRACE Invalid Interpretation Code Negative [facility] Comment on above: Performed By: #### 1 [id number] #### [facility] [address] [place] [address] [place].plasma/Lithiu m.RBC (Bld) [Mass ratio] >75 Abnormal 0-3 [facility] Comment on above: Performed By: #### 1 [id number] #### [facility] [address] [place] [address] Nitrite Ql (U) Negative Normal Negative [facility] Comment on above: Performed By: #### 1 [id number] #### [facility] [address] [place] [address] pH (U) 6.0 [pH] Invalid Interpretation Code 5.0-9.0 [facility] Comment on above: Performed By: #### 1 [id number] #### [facility] [address] [place] [address] Protein (U) [Mass/Vol] TRACE Abnormal Negative [facility] Comment on above: Performed By: #### 1 [id number] #### [facility] [address] [place] [address] Specific gravity (U) [Rel density] >=1.030 Invalid Interpretation Code 1.005-1.030 [facility] Comment on above: Performed By: #### 1 [id number] #### [facility] [address] [place] [address] Type of Urine collection method Clean Catch Normal [facility] Comment on above: Performed By: #### 1 [id number] #### [facility] [address] [place] [address] Urobilinogen Qn (U) 0.2 {Lidya'U}/dL Normal 0.0-1.0 [facility] Comment on above: Performed By: #### 1 [id number] #### [facility] [address] [place] [address] WBC Auto Ql (U) Negative Normal Negative [facility] Comment on above: Performed By: #### 1 [id number] #### [facility] [address] [place] [address] WBC LM.HPF (Urine sed) [#/Area] 0-5 Normal 0-5 [facility] Comment on above: Performed By: #### 1 [id number] #### [facility] [address] [place] [id number] URINALYSISOrdered By: Maira carmona on 05-28-2023 Bacteria [...] Interpretation Code Negative [facility] UA Auto SS [place].plasma/Lithiu m.RBC (Bld) [Mass ratio] >75 /HPF Invalid Interpretation [...] [facility] UA Auto SS Urobilinogen Qn (U) 0.7771131 {Lidya'U}/dL Normal 0.0 - 1.0 EU/dL [facility] UA Auto SS WBC Auto Ql (U) Negative (05/28/23 1:53 PM) Normal Negative [facility] UA Auto SS WBC LM.HPF (Urine sed) [#/Area] 0-5 /HPF Normal 0-5/HPF [facility] UA Auto SS CMPon 05-11-2023 Albumin [Mass/Vol] 4.3 g/dL Normal 3.3-5.0 [facility] Comment on above: Performed By: #### 2 673661, [id number], [id number] ####[facility] [address] [place] [address] Albumin/Globulin [Mass ratio] 1.7 {ratio} Normal 1.1-2.2 [facility] Comment on above: Performed By: #### 2 494267, [id number], [id number] ####[facility] [address] [facility] [address] Alk Phos 106 Int._Unit/L High 21-98 [facility] Comment on above: Performed By: #### 2 083866, [id number], [id number] ####[facility] [address] [place] [address] ALT 7 Int._Unit/L Normal 6-46 [facility] Comment on above: Performed By: #### 2 926741, [id number], [id number] ####[facility] [address] [place] [address] Anion gap [Moles/Vol] 12 mmol/L Normal 6-16 [facility] Comment on above: Performed By: #### 2 875846, [id number], [id number] ####[facility] [address] [place] [address] AST 13 Int._Unit/L Normal 5-43 [facility] Comment on above: Performed By: #### 2 783711, 08740811, [id number] ####[facility] [address] [place] [address] Bili Total 0.4 mg/dL Normal 0.0-1.1 [facility] Comment on above: Performed By: #### 2 296285, [id number], [id number] ####[facility] [address] [place] [address] BUN/Creat Ratio 29 No Units High 10-20 [facility] Comment on above: Performed By: #### 2 504081, 61362936, [id number] ####[facility] [address] [place] [address] Calcium [Mass/Vol] 9.6 mg/dL Normal 8.9-11.1 [facility] Comment on above: Performed By: #### 2 439710, [id number], 557062340 ####[facility] [address] [address] Chloride [Moles/Vol] 106 mmol/L Normal 101-111 [facility] Comment on above: Performed By: #### 2 971086, 43851949, [id number] ####[facility] [address] [place] [address] CO2 [Moles/Vol] 27 mmol/L Normal 21-31 [facility] Comment on above: Performed By: #### 2 590527, 13899367, [id number] ####[facility] [address] [address] Creatinine [Mass/Vol] 0.7 mg/dL Normal 0.5-1.3 [facility] Comment on above: Performed By: #### 2 242925, 05688508, [id number] ####[facility] [address] [place] [address] Globulin (S) [Mass/Vol] 2.6 g/dL Normal 1.4-4.0 [facility] Comment on above: Performed By: #### 2 263718, 37063352, 063713415 ####[facility] [address] [address] Glucose [Mass/Vol] 96 mg/dL Normal 55-199 [facility] Comment on above: Performed By: #### 2 947963, 86405466, 853382216 ####[facility] [address] [address] Potassium [Moles/Vol] 4.2 mmol/L Normal 3.5-5.3 [facility] Comment on above: Performed By: #### 2 356988, 51748160, 679209136 ####[facility] [address] [address] Protein [Mass/Vol] 6.9 g/dL Normal 6.0-7.8 [facility] Comment on above: Performed By: #### 2 851063, 95421363, 960547135 ####[facility] [address] [place] [address] Sodium [Moles/Vol] 141 mmol/L Normal 135-145 [facility] Comment on above: Performed By: #### 2 109344, 78030094, 992387077 ####[facility] [address] [place] [address] Urea nitrogen [Mass/Vol] 20 mg/dL Normal 5-21 [facility] Comment on above: Performed By: #### 2 824863, 99629675, 496015417 ####[facility] [address] [place] [address] Consent for Treatmenton 04-17 Consent for Treatment [id number] 0TIFF Normal [facility] WnlL4yty 05-11-2023 HbA1c (Bld) [Mass fraction] 5.8 % Normal <=5.9 [facility] Comment on above: Performed By: #### 2 895829, 29827364, 406661393 ####[facility] [address] [place] [address] MA/Cr Ratioon 05-11-2023 Microalb/Cr Ratio .8 mg/gm Cr Normal .0-30.0 [facility] Comment on above: Result Comment: 30-3 00 mg/g Cr indicates an increased risk for diabetic nephropathy. >300 mg/g Cr is consistent with clinical nephropathy. Performed By: #### 1 5381859 #### [facility] [address] [place] [address] U Creatinine 96.3 mg/dL Invalid Interpretation Code [facility] Comment on above: Performed By: #### 1 [id number] #### [facility] [address] [place] [address] U Microalb <2.0 Normal 0.0-19.0 [facility] Comment on above: Performed By: #### 1 8138455 #### [facility] [address] [place] [address] Physician Orderon 05-11-2023 Physician Order [id number]. 00TIFF Normal [facility] UA With Cult Reflexon 2023 Bacteria LM Ql (Urine sed) TRACE Normal Trace [facility] Comment on above: Performed By: #### 1 6166454 #### [facility] [address] [place] [address] Bilirubin Ql (U) Negative Normal Negative [facility] Comment on above: Performed By: #### 1 9815678 #### [facility] [address] [place] [address] Clarity (U) CLEAR Normal Clear [facility] Comment on above: Performed By: #### 1 2916316 #### [facility] [address] [place] [address] Color (U) YELLOW Normal Yellow [facility] Comment on above: Performed By: #### 1 8799628 #### [facility] [address] [place] [address] Epithelial cells.squamous LM.HPF (Urine sed) [#/Area] 0-2 Normal 0-2 [facility] Comment on above: Performed By: #### 1 5087094 #### [facility] [address] [place] [address] Glucose Test strip (U) [Mass/Vol] 3+ Abnormal Negative [facility] Comment on above: Performed By: #### 1 3745678 #### [facility] [address] [place] [address] Hemoglobin Ql (U) Negative Normal Negative [facility] Comment on above: Performed By: #### 1 0552208 #### [facility] [address] [place] [address] Ketones (U) [Mass/Vol] Negative Normal Negative [facility] Comment on above: Performed By: #### 1 1455011 #### [facility] [address] [place] [address] [place].plasma/Lithiu m.RBC (Bld) [Mass ratio] 0-3 Normal 0-3 [facility] Comment on above: Performed By: #### 1 4144467 #### [facility] [address] [place] [address] Nitrite Ql (U) Negative Normal Negative [facility] Comment on above: Performed By: #### 1 1344382 #### [facility] [address] [place] [address] pH (U) 5.5 [pH] Invalid Interpretation Code 5.0-9.0 [facility] Comment on above: Performed By: #### 1 8691701 #### [facility] [address] [place] [address] Protein (U) [Mass/Vol] Negative Normal Negative [facility] Comment on above: Performed By: #### 1 5004661 #### [facility] [address] [place] [address] Specific gravity (U) [Rel density] 1.020 Invalid Interpretation Code 1.005-1.030 [facility] Comment on above: Performed By: #### 1 8541310 #### [facility] [address] [place] [address] Type of Urine collection method Clean Catch Normal [facility] Comment on above: Performed By: #### 1 2738880 #### [facility] [address] [place] [address] Urobilinogen Qn (U) 0.2 {Lidya'U}/dL Normal 0.0-1.0 [facility] Comment on above: Performed By: #### 1 4729487 #### [facility] [address] [place] [address] WBC Auto Ql (U) Negative Normal Negative [facility] Comment on above: Performed By: #### 1 7766358 #### [facility] [address] [place] [address] WBC LM.HPF (Urine sed) [#/Area] 0-5 Normal 0-5 [facility] Comment on above: Performed By: #### 1 1045700 #### [facility] [address] [place] [address] eGFRon 05-11-2023 eGFR 111 mL/min/1.73 m2 Normal >=59 [facility] Comment on above: Order Comment: Order added by Discern Expert. Performed By: #### 2 688165, [id number], [id number] ####[facility] [address] [place] [address] ED Note-Physicianon 11-01-19 ED Note-Physician Basic Information Time Seen: Promise Loco PA-C 10/28/2022 16:40 Chief Complaint Patient presents from doctors officer with flank pain and at the [place] BP was in the 80's. Patient vebralized [...] concentrating, paranoia, anhedonia, lack of energy, merrick Hematologic/lymphatic: Denies any purpura, petechiae, excessive bleeding, bruising [...] Code status: (more content not included)... Normal [facility] Comment on above: Result Comment: Elec tronically Signed By: Promise Loco PA-C\.br\Date and Time Signed: 10/29/22 01:47 EDT\.br\Electronically Co-Signed By: Gunnar Rangel DO\.graham\Date and Time Co-Signed: 10/31/22 07:21 EDT Auto Diffon 10-28-2022 Basophils/100 WBC (Bld) 0.5 % Normal 0.0-2.0 [facility] Comment on above: Order Comment: Order Added by [employer] Expert. Performed By: #### 1 [id number] #### [facility] [address] [place] [address] Basophils/Leukocytes Auto (Bld) [Pure # fraction] 0.1 E9/L Normal 0.0-0.2 [facility] Comment on above: Order Comment: Order Added by Discern Expert. Performed By: #### 1 7760160 #### [facility] [address] [place] [address] Eosinophils/100 WBC (Bld) 0.9 % Normal 0.0-8.0 [facility] Comment on above: Order Comment: Order Added by Discern Expert. Performed By: #### 1 5572254 #### [facility] [address] [place] [address] Eosinophils/Leukocyte s Auto (Bld) [Pure # fraction] 0.1 E9/L Normal 0.0-0.5 [facility] Comment on above: Order Comment: Order Added by Discern Expert. Performed By: #### 1 8480886 #### [facility] [address] [place] [address] Lymphocytes/100 WBC (Bld) 25.9 % Normal 14.0-50.0 [facility] Comment on above: Order Comment: Order Added by Discern Expert. Performed By: #### 1 [id number] #### [facility] [address] [place] [address] Lymphocytes/Leukocyte s Auto (Bld) [Pure # fraction] 2.7 E9/L Normal 1.0-4.0 [facility] Comment on above: Order Comment: Order Added by Discern Expert. Performed By: #### 1 [id number] #### [facility] [address] [place] [address] Monocytes/100 WBC (Bld) 5.3 % Normal 4.0-14.0 [facility] Comment on above: Order Comment: Order Added by Discern Expert. Performed By: #### 1 [id number] #### [facility] [address] [place] [address] Monocytes/Leukocytes Auto (Bld) [Pure # fraction] 0.6 E9/L Normal 0.2-1.0 [facility] Comment on above: Order Comment: Order Added by Discern Expert. Performed By: #### 1 [id number] #### [facility] [address] [place] [address] Neutrophils/100 WBC (Bld) 67.4 % Normal 36.0-75.0 [facility] Comment on above: Order Comment: Order Added by Discern Expert. Performed By: #### 1 [id number] #### [facility] [address] [place] [address] Neutrophils/Leukocyte s Auto (Bld) [Pure # fraction] 7.0 E9/L Normal 2.0-7.5 [facility] Comment on above: Order Comment: Order Added by Discern Expert. Performed By: #### 1 [id number] #### [facility] [address] [place] [address] CBC w/ Auto Diffon 3 Erythrocyte distribution width (RBC) [Ratio] 14.6 % High 10.9-14.2 [facility] Comment on above: Performed By: #### 1 [id number] #### [facility] [address] [place] [address] Hematocrit (Bld) [Volume fraction] 48.3 % High 34.0-46.0 [facility] Comment on above: Performed By: #### 1 9621940 #### [facility] [address] [place] [address] Hemoglobin (Bld) [Mass/Vol] 16.0 g/dL Normal 12.0-16.0 [facility] Comment on above: Performed By: #### 1 3987721 #### [facility] [address] [place] [address] MCH (RBC) [Entitic mass] 29.4 pg Normal 27.0-34.0 [facility] Comment on above: Performed By: #### 1 [id number] #### [facility] [address] [place] [address] MCHC (RBC) [Mass/Vol] 33.1 g/dL Normal 31.4-36.0 [facility] Comment on above: Performed By: #### 1 5416785 #### [facility] [address] [place] [address] MCV (RBC) [Entitic vol] 88.9 fL Normal 80.0-100.0 [facility] Comment on above: Performed By: #### 1 3921260 #### [facility] [address] [place] [address] Platelet mean volume (Bld) [Entitic vol] 8.6 fL Normal 6.4-10.8 [facility] Comment on above: Performed By: #### 1 5294596 #### [facility] [address] [place] [address] Platelets (Bld) [#/Vol] 237.0 E9/L Normal 150.0-500.0 [facility] Comment on above: Performed By: #### 1 [id number] #### [facility] [address] [place] [address] RBC (Bld) [#/Vol] 5.4 E12/L Normal 4.3-5.9 [facility] Comment on above: Performed By: #### 1 [id number] #### [facility] [address] [place] [address] WBC corrected for nucl RBC Auto (Bld) [#/Vol] 10.4 E9/L Normal 4.0-11.0 [facility] Comment on above: Performed By: #### 1 6166539 #### [facility] [address] [place] [address] CHEMISTRYOrdered By: SYSTEM SYSTEM on 10-28-2022 Albumin [Mass/Vol] 4.6 g/dL Normal 3.3 - 5.0 gm/dL [facility] Remisol Albumin/Globulin [Mass ratio] 1.4 {ratio} Normal 1.1 - 2.2 [facility] ALP [Catalytic activity/Vol] 110 [iU]/d High 21 - 98 Int._Unit/L [facility] ALT No additional P-5'-P [Catalytic activity/Vol] 16 [iU]/d Normal 6 - 46 Int._Unit/L [facility] Anion gap [Moles/Vol] 13 mmol/L Normal 6 - 16 mEq/L [facility] AST [Catalytic activity/Vol] 24 [iU]/d Normal 5 - 43 Int._Unit/L [facility] Bilirubin [Mass/Vol] 0.7 mg/dL Normal 0.0 - 1 .1 mg/dL [facility] Remisol Calcium [Mass/Vol] 10.2 mg/dL Normal 8.9 - 11. 1 mg/dL [facility] Chloride [Moles/Vol] 106 mmol/L Normal 101 - 1 11 mmol/L [facility] CO2 [Moles/Vol] 25 mmol/L Normal 21 - 31 mmol/L [facility] Creatinine [Mass/Vol] 1.0 mg/dL Normal 0.5 - 1.3 mg/dL [facility] GFR/1.73 sq M.predicted among non-blacks MDRD (S/P/Bld) [Vol rate/Area] 73 mL/min/1.73 m2 Normal >=59mL/min/1 .73 m2 [facility] Chem S Globulin (S) [Mass/Vol] 3.4 g/dL Normal 1.4 - 4.0 gm/dL [facility] Glucose [Mass/Vol] 98 mg/dL Normal 55 - 199 mg/dL [facility] Potassium [Moles/Vol] 5.0 mmol/L Normal 3.5 - 5.3 mmol/L [facility] Protein [Mass/Vol] 8.0 g/dL High 6.0 - 7.8 gm/dL [facility] Sodium [Moles/Vol] 139 mmol/L Normal 135 - 145 mmol/L [facility] Urea nitrogen [Mass/Vol] 22 mg/dL High 5 - 21 mg/dL [facility] Urea nitrogen/Creatinine [Mass ratio] 22 mg/mg High 10 - 20 [facility] CMPon 10-28-2022 Albumin [Mass/Vol] 4.6 g/dL Normal 3.3-5.0 [facility] Comment on above: Performed By: #### 1 [id number] #### [facility] [address] [place] [address] Albumin/Globulin (S) [Mass conc ratio] 1.4 Normal 1.1-2.2 [facility] Comment on above: Performed By: #### 1 5866878 #### [facility] [address] [place] [address] ALP [Catalytic activity/Vol] 110 Int._Unit/L High 21-98 [facility] Comment on above: Performed By: #### 1 [id number] #### [facility] [address] [place] [address] ALT No additional P-5'-P [Catalytic activity/Vol] 16 Int._Unit/L Normal 6-46 [facility] Comment on above: Performed By: #### 1 4451097 #### [facility] [address] [place] [address] AST [Catalytic activity/Vol] 24 Int._Unit/L Normal 5-43 [facility] Comment on above: Performed By: #### 1 [id number] #### [facility] [address] [place] [address] Bilirubin [Mass/Vol] 0.7 mg/dL Normal 0.0-1.1 [facility] Comment on above: Performed By: #### 1 5403334 #### [facility] [address] [place] [address] Creatinine [Mass/Vol] 1.0 mg/dL Normal 0.5-1.3 [facility] Comment on above: Performed By: #### 1 0913816 #### [facility] [address] [place] [address] Globulin (S) [Mass/Vol] 3.4 g/dL Normal 1.4-4.0 [facility] Comment on above: Performed By: #### 1 5805215 #### [facility] [address] [place] [address] Protein [Mass/Vol] 8.0 g/dL High 6.0-7.8 [facility] Comment on above: Performed By: #### 1 4885997 #### [facility] [address] [place] [address] Urea nitrogen [Mass/Vol] 22 mg/dL High 5-21 [facility] Comment on above: Performed By: #### 1 3132938 #### [facility] [address] [place] [address] Urea nitrogen/Creatinine [Mass ratio] 22 No Units High 10-20 [facility] Comment on above: Performed By: #### 1 7570928 #### [facility] [address] [place] [address] Anion gap [Moles/Vol] 13 mmol/L Normal 6-16 [facility] Comment on above: Performed By: #### 1 1966894 #### [facility] [address] [place] [address] Calcium [Mass/Vol] 10.2 mg/dL Normal 8.9-11.1 [facility] Comment on above: Performed By: #### 1 9504037 #### [facility] [address] [place] [address] Chloride [Moles/Vol] 106 mmol/L Normal 101-111 [facility] Comment on above: Performed By: #### 1 6851244 #### [facility] [address] [place] [address] CO2 [Moles/Vol] 25 mmol/L Normal 21-31 [facility] Comment on above: Performed By: #### 1 9943743 #### [facility] [address] [place] [address] Glucose [Mass/Vol] 98 mg/dL Normal 55-199 [facility] Comment on above: Result Comment: If t his glucose result represents a fasting glucose, interpretation should refer to the following reference range: 55-99 mg/dL Performed By: #### 1 6473086 #### [facility] [address] [place] [address] Potassium [Moles/Vol] 5.0 mmol/L Normal 3.5-5.3 [facility] Comment on above: Performed By: #### 1 8260035 #### [facility] [address] [place] [address] Sodium [Moles/Vol] 139 mmol/L Normal 135-145 [facility] Comment on above: Performed By: #### 1 3733947 #### [facility] [address] [place] [address] CT Abdomen/Pelvis w/o Contrdoug barakat 10-28-2022 CT Abdomen/Pelvis w/o Contrast Exam Date/Time: [...] Oral contrast amount in ml's: 0 Normal [facility] Consent for Treatmenton 10-14 Consent for Treatment [id number] 0CD:127 Normal [facility] Discharge Instructionson Discharge Instructions [id number] 0CD:127 Normal [facility] ED Clinical Summaryon 2022 ED Clinical Summary [address] [address] ED Clinical Summary Person Information Name: TISH VARGAS [place] Age: 42 Years : 1980 Sex: Female Language: Turkish PCP: YANET JUNIOR CNP Marital Status: Visit [...] 10/28/2022 18:55:13 10/28/2022 18:55:13 ADDRESS: [address] [place] [id number] PHYS DOC NOTES: MEDICAL INFORMATION: Prescriptions Given: Medications to Continue with No Changes Other Medications acetaminophen-oxycodon e (Percocet 325 mg-5 mg Tab) 1 Tablets [...] for Kidney Stones, Care After; Kidney Stones, Ypwt-qr-Ynre; Flank Pain, Adult, Efro-uz-Syxe Follow up: With: Address: When: [facility], [address], [place] [address] Business (1) In 3 d (more content not included)... Normal [facility] ED Patient Education Noteon 10-28-2022 ED [...] including vitamins, herbs, eye drops, creams, and srdq-dpm-ggeebqc medicines. ? Any problems you or family [...] tells you to take them. ? Taking zuwd-ldu-vglfwuo medicines, vitamins, herbs, and supplements. Tests You [...] safe. Summary (more content not included)... Normal [facility] ED Patient Summaryon 023 ED Patient Summary [place] [id number] Patient Discharge Instructions Person Information Name: TISH VARGAS Age: 42 Years Arrival Date: 10/28/2022 15:04:47 Discharge Diagnosis: 1:Lt flank pain Primary Care Physician: YANET JUNIOR CNP Provider Information Primary Provider: Gunnar Rangel DO [employer] Teacher:None The exam and treatment you received in the Emergency Department were for an urgent problem and are not intended as complete care. It is important that you follow up with a doctor, nurse practitioner, or physician?s home care assistant for ongoing care. If your symptoms [...] Follow-up Instructions: With: Address: When: [place] [facility], [address] [place] [address] Business (1) In 3 days 10/31/2022 With: Address: When: YANET JUNIOR [address] [place] [phone] Business (1) In 3 days In the event that this physician does not participate in your insurance network, please consult with your insurance company to find a nearby participating provider. Patient Education Materials: Lithotripsy; Laser Therapy for Kidney Stones, Care After; Kidney Stones, Zjit-bp-Ibkp; Flank Pain, Adult, Uoku-bl-Fdxp A MESSAGE TO ALL PATIENTS REGARDING OPIOIDS PRESCRIPTION OPIOIDS: WHAT YOU NEED TO KNOW Prescription opioids can be used to help relieve fxtovuib-po-hxislk pain and are often prescribed following a [...] guidance from the Food and Drug Administration (www.fda.gov/Drugs/Res ourcesForYou). ? Visit www.cdc.gov/drugoverdo se to learn ab (more content not included)... Normal [facility] HEMATOLOGYOrdered By: SYSTEM SYSTEM on 10-28-2022 Basophils/100 WBC (Bld) 0.5 % Normal 0.0 - 2.0 % [facility] HemeAutoSS Basophils/Leukocytes Auto (Bld) [Pure # fraction] 0.1 E9/L Normal 0.0 - 0.2 E9/L [facility] HemeAutoSS Eosinophils/100 WBC (Bld) 0.9 % Normal 0.0 - 8.0 % [facility] HemeAutoSS Eosinophils/Leukocyte s Auto (Bld) [Pure # fraction] 0.1 E9/L Normal 0.0 - 0.5 E9/L [facility] HemeAutoSS Lymphocytes/100 WBC (Bld) 25.9 % Normal 14.0 - 50.0 % [facility] HemeAutoSS Lymphocytes/Leukocyte s Auto (Bld) [Pure # fraction] 2.7 E9/L Normal 1.0 - 4.0 E9/L [facility] HemeAutoSS Monocytes/100 WBC (Bld) 5.3 % Normal 4.0 - 14.0 % [facility] HemeAutoSS Monocytes/Leukocytes Auto (Bld) [Pure # fraction] 0.6 E9/L Normal 0.2 - 1.0 E9/L [facility] HemeAutoSS Neutrophils/100 WBC (Bld) 67.4 % Normal 36.0 - 75.0 % [facility] HemeAutoSS Neutrophils/Leukocyte s Auto (Bld) [Pure # fraction] 7.0 E9/L [...] 10.4 E9/L Normal 4.0 - 11.0 E9/L [facility] HemeAutoSS UA With Cult Reflexon 2022 Bacteria LM Ql (Urine sed) 1+ /HPF Abnormal Trace [facility] Comment on above: Performed By: #### 1 [id number] #### [facility] [address] [place] [address] Bilirubin Ql (U) Negative Normal Negative [facility] Comment on above: Performed By: #### 1 [id number] #### [facility] [address] [place] [address] Clarity (U) CLOUDY Abnormal Clear [facility] Comment on above: Performed By: #### 1 [id number] #### [facility] [address] [place] [address] Color (U) YELLOW Normal Yellow [facility] Comment on above: Performed By: #### 1 [id number] #### [facility] [address] [place] [address] Epithelial cells.squamous LM.HPF (Urine sed) [#/Area] /[HPF] Normal 0-2 [facility] Comment on above: Performed By: #### 1 1033764 #### [facility] [address] [place] [address] Glucose Test strip (U) [Mass/Vol] 3+ Abnormal Negative [facility] Comment on above: Performed By: #### 1 9390027 #### [facility] [address] [place] [address] Hemoglobin Ql (U) 3+ Abnormal Negative [facility] Comment on above: Performed By: #### 1 4581243 #### [facility] [address] [place] [address] Ketones (U) [Mass/Vol] TRACE Abnormal Negative [facility] Comment on above: Performed By: #### 1 8945404 #### [facility] [address] [place] [address] [place].plasma/Lithiu m.RBC (Bld) [Mass ratio] 21-30 Abnormal 0-3 [facility] Comment on above: Performed By: #### 1 7867963 #### [facility] [address] [place] [address] Mucus Ql (Urine sed) 1+ Normal [facility] Comment on above: Performed By: #### 1 5565482 #### [facility] [address] [place] [address] Nitrite Ql (U) Negative Normal Negative [facility] Comment on above: Performed By: #### 1 4360472 #### [facility] [address] [place] [address] pH (U) 5.5 [pH] Invalid Interpretation Code 5.0-9.0 [facility] Comment on above: Performed By: #### 1 6783482 #### [facility] [address] [place] [address] Protein (U) [Mass/Vol] Negative Normal Negative [facility] Comment on above: Performed By: #### 1 7378975 #### [facility] [address] [place] [address] Specific gravity (U) [Rel density] >=1.030 Invalid Interpretation Code 1.005-1.030 [facility] Comment on above: Performed By: #### 1 9191762 #### [facility] [address] [place] [address] Type of Urine collection method Clean Catch Normal [facility] Comment on above: Performed By: #### 1 9337080 #### [facility] [address] [place] [address] Urobilinogen Qn (U) 1.0 {Lidya'U}/dL Normal 0.0-1.0 [facility] Comment on above: Performed By: #### 1 8852503 #### [facility] [address] [place] [address] WBC Auto Ql (U) Negative Normal Negative [facility] Comment on above: Performed By: #### 1 [id number] #### [facility] [address] [place] [address] WBC LM.HPF (Urine sed) [#/Area] 0-5 Normal 0-5 [facility] Comment on above: Performed By: #### 1 8203722 #### [facility] [address] [place] [address] URINALYSISOrdered By: Elliott Still on 10-28-2022 Bacteria [...] Interpretation Code Negative [facility] UA Auto SS [place].plasma/Lithiu m.RBC (Bld) [Mass ratio] 21-30 /HPF Invalid Interpretation [...] Desc Clean Catch (10/28/22 4:54 PM) Normal [facility] UA Auto SS Urobilinogen Qn (U) 1.6633566 {Lidya'U}/dL Normal 0.0 - 1.0 EU/dL [facility] UA Auto SS WBC Auto Ql (U) Negative (10/28/22 4:54 PM) Normal Negative [facility] UA Auto SS WBC LM.HPF (Urine sed) [#/Area] 0-5 /HPF Normal 0-5/HPF [facility] UA Auto SS eGFRon 10-28-2022 GFR/1.73 sq M.predicted among non-blacks MDRD (S/P/Bld) [Vol rate/Area] 73 mL/min/1.73 m2 Normal >=59 [facility] Comment on above: Order Comment: Order added by Discern Expert. Result Comment: [employer] Specialist jose kidney disease could be indicated at eGFR's of less than 60 mL/min/1.73m2. Kidney failure is indicated at less than 15 mL/min/1.73m2. Performed By: #### 1 [id number] #### [facility] [address] [place] [address] ED Note-Physicianon 10-28-19 ED Note-Physician Basic Information [...] and Complexity of Problems Differential Diagnosis: [] [facility] Data External documents reviewed: [] My [...] was ready to go. Discussed follow-up with vice president of communications. Discussed follow-up with urologist. Patient will be discharged home on pain medicine, nausea med (more content not included)... Normal [facility] Comment on above: Result Comment: Elec tronically Signed By: Joseph Kent PA-C.br\Date and Time Signed: 10/25/22 11:27 EDT\.br\Electronically Co-Signed By: Gunnar Rangel DO\.graham\Date and Time Co-Signed: 10/27/22 07:42 EDT [id number] 10-26-2022 HbA1c (Bld) [Mass fraction] 6.0 % High <=5.9 [facility] Comment on above: Performed By: #### 2 491084, [id number], 70288638, 5963058 #### [facility] [address] [place] [address] Auto Diffon 10-25-2022 Basophils/100 WBC (Bld) 0.7 % Normal 0.0-2.0 [facility] Comment on above: Order Comment: Order Added by Discern Expert. Performed By: #### 2 129916, 17536453, 24750796, 8062295, 0646942, 67735049, 1393649, 1050596, 65368689 #### [facility] [address] [place] [address] Basophils/Leukocytes Auto (Bld) [Pure # fraction] 0.1 E9/L Normal 0.0-0.2 [facility] Comment on above: Order Comment: Order Added by Discern Expert. Performed By: #### 2 301541, 78630082, 40848583, 7108827, 7896355, 84627361, 4357931, 5063840, 68616413 #### [facility] [address] [place] [address] Eosinophils/100 WBC (Bld) 2.9 % Normal 0.0-8.0 [facility] Comment on above: Order Comment: Order Added by Discern Expert. Performed By: #### 2 947351, 96332840, 61248887, 1641896, 8782906, 23651072, 2484372, 6491121, 51311567 #### [facility] [address] [place] [address] Eosinophils/Leukocyte s Auto (Bld) [Pure # fraction] 0.2 E9/L Normal 0.0-0.5 [facility] Comment on above: Order Comment: Order Added by Discern Expert. Performed By: #### 2 237166, 35427435, 03317432, 5077068, 8678401, 78450218, 5080884, 0634049, 53327469 #### [facility] [address] [place] [address] Lymphocytes/100 WBC (Bld) 26.6 % Normal 14.0-50.0 [facility] Comment on above: Order Comment: Order Added by Discern Expert. Performed By: #### 2 405398, 86428397, 36691125, 4830219, 9787040, 34038262, 9213332, 3651441, 38766879 #### [facility] [address] [place] [address] Lymphocytes/Leukocyte s Auto (Bld) [Pure # fraction] 2.3 E9/L Normal 1.0-4.0 [facility] Comment on above: Order Comment: Order Added by Discern Expert. Performed By: #### 2 154571, 83398758, 77374443, 7277187, 9597793, 88698570, 8494476, 8859975, 95975930 #### [facility] [address] [place] [address] Monocytes/100 WBC (Bld) 4.9 % Normal 4.0-14.0 [facility] Comment on above: Order Comment: Order Added by Discern Expert. Performed By: #### 2 548297, 30791050, 87000384, 9411526, 1004937, 86957702, 5789260, 8332777, 19453478 #### [facility] [address] [place] [address] Monocytes/Leukocytes Auto (Bld) [Pure # fraction] 0.4 E9/L Normal 0.2-1.0 [facility] Comment on above: Order Comment: Order Added by Discern Expert. Performed By: #### 2 991719, 86498650, 30947926, 3383906, 1314373, 38507506, 7118546, 8205267, 77570000 #### [facility] [address] [place] [address] Neutrophils/100 WBC (Bld) 64.9 % Normal 36.0-75.0 [facility] Comment on above: Order Comment: Order Added by Discern Expert. Performed By: #### 2 514672, 15600667, 50702505, 7954385, 7361864, 87089768, 6311319, 4130920, 65713933 #### [facility] [address] [place] [address] Neutrophils/Leukocyte s Auto (Bld) [Pure # fraction] 5.5 E9/L Normal 2.0-7.5 [facility] Comment on above: Order Comment: Order Added by Discern Expert. Performed By: #### 2 735743, 11802333, 81155690, 0023005, 3499388, 65044033, 2193653, 0546158, 99524733 #### [facility] [address] [place] [address] B hCG Qualon 10-25-2022 Beta hCG Ql Negative Normal [facility] Comment on above: Performed By: #### 2 090676, 50129943, 48313896, 5244330, 3471346, 88901710, 3689580, 4629867, 05278853 ####[facility] [address] [place] [address] BMPon 10-25-2022 Creatinine [Mass/Vol] 1.0 mg/dL Normal 0.5-1.3 [facility] Comment on above: Performed By: #### 2 631021, 68230049, 39675075, 0469913, 5687689, 71676690, 6089631, 0577439, 26791074 ####[facility] [address] [place] [address] Urea nitrogen [Mass/Vol] 19 mg/dL Normal 5-21 [facility] Comment on above: Performed By: #### 2 620303, 77501785, 62087754, 2178249, 2006775, 96191405, 9530871, 4390964, 86860112 ####[facility] [address] [place] [address] Urea nitrogen/Creatinine [Mass ratio] 19 No Units Normal 10-20 [facility] Comment on above: Performed By: #### 2 800772, 95741350, 60156461, 5099004, 3246474, 12829295, 2428034, 6490500, 61820112 ####[facility] [address] [place] [address] Anion gap [Moles/Vol] 13 mmol/L Normal 6-16 [facility] Comment on above: Performed By: #### 2 723070, 22167293, 77181418, 6181944, 2596927, 19599710, 0062792, 0200411, 55348745 ####[facility] [address] [place] [address] Calcium [Mass/Vol] 9.7 mg/dL Normal 8.9-11.1 [facility] Comment on above: Performed By: #### 2 740368, 24079410, 03261172, 0891413, 0912458, 32792401, 3843845, 0518214, 29570550 ####[facility] [address] [place] [address] Chloride [Moles/Vol] 107 mmol/L Normal 101-111 [facility] Comment on above: Performed By: #### 2 953594, 33162174, 97999108, 3225393, 3543290, 44199380, 2089011, 3276243, 86411167 ####[facility] [address] [place] [address] CO2 [Moles/Vol] 24 mmol/L Normal 21-31 [facility] Comment on above: Performed By: #### 2 374037, 13647291, 74142895, 0636026, 3847890, 24957689, 4047692, 1416421, 50413402 ####[facility] [address] [place] [address] Glucose [Mass/Vol] 98 mg/dL Normal 55-199 [facility] Comment on above: Result Comment: If t his glucose result represents a fasting glucose, interpretation should refer to the following reference range: 55-99 mg/dL Performed By: #### 2 248547, 20461143, 54678490, 1175670, 3801414, 25183870, 0689683, 6494129, 31250229 ####[facility] [address] [place] [address] Potassium [Moles/Vol] 4.1 mmol/L Normal 3.5-5.3 [facility] Comment on above: Performed By: #### 2 532407, 61279904, 32989860, 9813308, 1612818, 09033162, 7147791, 5793083, 03082520 ####[facility] [address] [place] [address] Sodium [Moles/Vol] 140 mmol/L Normal 135-145 [facility] Comment on above: Performed By: #### 2 458688, 65701245, 16816944, 2401761, 3758027, 79641724, 0878590, 4733905, 15783929 ####[facility] [address] [place] [address] CBC w/ Auto Diffon 3 Erythrocyte distribution width (RBC) [Ratio] 14.7 % High 10.9-14.2 [facility] Comment on above: Performed By: #### 2 155916, 30164227, 48225552, 9198839, 6633299, 97636307, 8843374, 6034909, 01858763 #### [facility] [address] [place] [address] Hematocrit (Bld) [Volume fraction] 44.2 % Normal 34.0-46.0 [facility] Comment on above: Performed By: #### 2 788804, 00568323, 17013301, 7979849, 4812095, 10016174, 9340516, 3270175, 34491807 #### [facility] [address] [place] [address] Hemoglobin (Bld) [Mass/Vol] 14.8 g/dL Normal 12.0-16.0 [facility] Comment on above: Performed By: #### 2 282437, 76353858, 74390289, 7328055, 7357097, 62324291, 3241318, 4901230, 64986297 #### [facility] [address] [place] [address] MCH (RBC) [Entitic mass] 29.7 pg Normal 27.0-34.0 [facility] Comment on above: Performed By: #### 2 019808, 49677352, 17135541, 8751450, 0934997, 11261136, 6988430, 4786881, 24783836 #### [facility] [address] [place] [address] MCHC (RBC) [Mass/Vol] 33.4 g/dL Normal 31.4-36.0 [facility] Comment on above: Performed By: #### 2 357863, 85913157, 75246086, 2374808, 8918151, 25341997, 0314204, 1887124, 05237822 #### [facility] [facility] [address] [place] [address] MCV (RBC) [Entitic vol] 88.9 fL Normal 80.0-100.0 [facility] Comment on above: Performed By: #### 2 347889, 67795006, 25933509, 0674513, 8624220, 87056612, 4259947, 3294420, 84782027 #### [facility] [address] [place] [address] Platelet mean volume (Bld) [Entitic vol] 8.7 fL Normal 6.4-10.8 [facility] Comment on above: Performed By: #### 2 831266, 43621799, 00926493, 5859617, 0390173, 75921294, 7061078, 9077992, 74850918 #### [facility] [address] [place] [address] [place] [address] Platelets (Bld) [#/Vol] 207.0 E9/L Normal 150.0-500.0 [facility] Comment on above: Performed By: #### 2 497312, 14148406, 05716221, 0545850, 2709984, 54695553, 9363045, 2316555, 29713211 #### [facility] [address] [place] [address] RBC (Bld) [#/Vol] 5.0 E12/L Normal 4.3-5.9 [facility] Comment on above: Performed By: #### 2 516480, 31845525, 73673281, 3665103, 6480692, 50054266, 3202789, 5459402, 69944964 #### [facility] [address] [place] [address] WBC corrected for nucl RBC Auto (Bld) [#/Vol] 8.5 E9/L Normal 4.0-11.0 [facility] Comment on above: Performed By: #### 2 356270, 21799299, 34209509, 9990274, 6240523, 73303324, 1130028, 0289708, 01788736 #### [facility] [address] [place] [address] CHEMISTRYOrdered By: SYSTEM SYSTEM on 10-25-2022 Albumin [...] 73 mL/min/1.73 m2 Normal >=59mL/min/1 .73 m2 [facility] Chem S Globulin (S) [Mass/Vol] 3.2 g/dL [...] 7.3 g/dL Normal 6.0 - 7.8 gm/dL [facility] Remisol Sodium [Moles/Vol] 140 mmol/L Normal 135 - 145 mmol/L [facility] Remisol Troponin I.cardiac [Mass/Vol] pg/mL Low 10.10 - 27.10 pg/mL [facility] Remisol Urea nitrogen [Mass/Vol] 19 mg/dL Normal 5 - 21 mg/dL [facility] Remisol Urea nitrogen/Creatinine [Mass ratio] 19 mg/mg Normal 10 - 20 [facility] Remisol CMPon 10-25-2022 Albumin [Mass/Vol] 4.3 g/dL Normal 3.3-5.0 [facility] Comment on above: Performed By: #### 2 364821, 514618749, 51505102, 5413629 #### [facility] [address] [place] [address] Albumin/Globulin (S) [Mass conc ratio] 1.3 Normal 1.1-2.2 [facility] Comment on above: Performed By: #### 2 306843, 435393175, 46770239, 9391027 #### [facility] [address] [place] [address] ALP [Catalytic activity/Vol] 111 Int._Unit/L High 21-98 [facility] Comment on above: Performed By: #### 2 935265, 259307289, 91872702, 0209655 #### [facility] [address] [place] [address] ALT No additional P-5'-P [Catalytic activity/Vol] 16 Int._Unit/L Normal 6-46 [facility] Comment on above: Performed By: #### 2 928945, 005486098, 73693087, 9025130 #### [facility] [address] [place] [address] Anion gap [Moles/Vol] 11 mmol/L Normal 6-16 [facility] Comment on above: Performed By: #### 2 222599, 340280548, 76149740, 6920369 #### [facility] [address] [place] [address] AST [Catalytic activity/Vol] 23 Int._Unit/L Normal 5-43 [facility] Comment on above: Performed By: #### 2 477387, 629301286, 15055718, 0383988 #### [facility] [address] [place] [address] Bilirubin [Mass/Vol] 0.4 mg/dL Normal 0.0-1.1 [facility] Comment on above: Performed By: #### 2 381778, 645532470, 29377688, 1646605 #### [facility] [address] [place] [address] Calcium [Mass/Vol] 9.4 mg/dL Normal 8.9-11.1 [facility] Comment on above: Performed By: #### 2 118836, 033513136, 04300183, 5777366 #### [facility] [address] [place] [address] Chloride [Moles/Vol] 106 mmol/L Normal 101-111 [facility] Comment on above: Performed By: #### 2 362558, 803356614, 36271247, 9565701 #### [facility] [address] [place] [address] CO2 [Moles/Vol] 27 mmol/L Normal 21-31 [facility] Comment on above: Performed By: #### 2 730954, 121085431, 27964593, 2167667 #### [facility] [address] [place] [address] Creatinine [Mass/Vol] 1.0 mg/dL Normal 0.5-1.3 [facility] Comment on above: Performed By: #### 2 695403, 922361081, 12110782, 4506733 #### [facility] [address] [place] [address] Globulin (S) [Mass/Vol] 3.2 g/dL Normal 1.4-4.0 [facility] Comment on above: Performed By: #### 2 013163, 961423476, 25712994, 2574716 #### [facility] [address] [place] [address] Glucose [Mass/Vol] 99 mg/dL Normal 55-199 [facility] Comment on above: Result Comment: If t his glucose result represents a fasting glucose, interpretation should refer to the following reference range: 55-99 mg/dL Performed By: #### 2 736390, 304901317, 69698519, 8043147 #### [facility] [address] [place] [address] Potassium [Moles/Vol] 4.8 mmol/L Normal 3.5-5.3 [facility] Comment on above: Performed By: #### 2 863389, 541228329, 89756020, 3118662 #### [facility] [address] [place] [address] Protein [Mass/Vol] 7.5 g/dL Normal 6.0-7.8 [facility] Comment on above: Performed By: #### 2 471140, 567761336, 79679766, 6297063 #### [facility] [address] [place] [address] Sodium [Moles/Vol] 139 mmol/L Normal 135-145 [facility] Comment on above: Performed By: #### 2 633601, 968431089, 89865496, 5288254 #### [facility] [address] [place] [address] Urea nitrogen [Mass/Vol] 19 mg/dL Normal 5-21 [facility] Comment on above: Performed By: #### 2 210001, 133656196, 97287619, 4949523 #### [facility] [address] [place] [address] Urea nitrogen/Creatinine [Mass ratio] 19 No Units Normal 10-20 [facility] Comment on above: Performed By: #### 2 316493, 087884215, 72797041, 3485968 #### [facility] [address] [place] [address] COAGULATIONOrdered By: Flor Walsh on 10-25-2022 aPTT Coag (PPP) [Time] 29.8 s Normal 25.1 - 36.5 second(s) [facility] Auto Coag INR Coag (PPP) [Relative time] 0.9 {INR} Invalid Interpretation Code [facility] Auto Coag PT Coag (PPP) [Time] 9.5 s Normal 9.4 - 1 2.5 second(s) [facility] Auto Coag CT Abdomen/Pelvis w/o Contra ston [...] Oral contrast amount in ml's: 0 Normal [facility] Consent for Treatmenton 10-14 Consent for Treatment [id number]#1.0 0CD:127 Normal [facility] Consent for Treatment [id number] [id number] 0CD:127 [facility] Discharge Instructionson Discharge Instructions [id number]. 00CD:127 Normal [facility] ED Clinical Summaryon 2022 ED Clinical Summary [place] [id number] ED Clinical Summary Person Information Name: TISH VARGAS [place] Age: 42 Years : 1980 Sex: Female Language: Turkish PCP: YANET JUNIOR CNP Marital Status: Visit [...] 12:11:07 10/25/2022 12:11:07 10/25/2022 12:11:07 ADDRESS: [address] [facility] [id number] PHYS DOC NOTES: MEDICAL INFORMATION: Prescriptions Given: New Medications [facility]/pharmacy #[id number], [address] [place], [place] [id number], [phone] tamsulosin (Flomax 0.4 mg Cap) 1 Capsules By Mouth every day. Refills: 0. Medications to Continue Taking That Have Changed [facility]/pharmacy #[id number], [address] [place], [place] [id number], [phone] START: acetaminophen-oxycodon e (acetaminophen-oxycodo ne 325 mg-5 mg Tab) 1 Tablets By Mouth every 6 hours as needed for pain for 3 Days. Refills: 0. START: ondansetron (Zofran ODT 4 mg Tab-Dis) 1 Tablets By Mouth every 8 hours as needed Nausea/Vomiting. Refills: 0. Other Medications START: acetaminophen-oxycodon e (Percocet 325 mg-5 mg Tab) 1 Tablets [...] Cap-ER) 1 (more content not included)... Normal [facility] ED Patient Education Noteon 10-25-2022 ED [...] these instructions at home: Medicines ? Take yetq-ggi-netipgz and prescription medicines only as told by [...] Eating a heart-healthy diet. A diet and medical staff specialist (dietitian) can help you to learn [...] provider. Document Revised: 05/16/2021 Document Reviewed: 05/16/2021 [employer] Patient Education ? 2022 [employer]. Urology Kidney Stones Kidney stones are solid, [...] A conditi (more content not included)... Normal [facility] ED Patient Summaryon 023 ED Patient Summary [address] [address] Patient Discharge Instructions Person Information Name: TISH VARGAS Age: 42 Years Arrival Date: 10/25/2022 09:29:31 Discharge Diagnosis: Kidney stone on left side; Nonspecific chest pain Primary Care Physician: YANET JUNIOR CNP Provider Information Primary Provider: Gunnar Rangel DO [employer] Teacher:None The exam and treatment you received in the Emergency Department were for an urgent problem and are not intended as complete care. It is important that you follow up with a doctor, nurse practitioner, or physician?s home care assistant for ongoing care. If your symptoms [...] Follow-up Instructions: With: Address: When: Koko Vasquez [address] [place] [address] Business (1) In 3 days 10/28/2022 With: Address: When: [place] MIRANDA [facility], [address], [place] [id number] Business (1) In 3 days 10/28/2022 With: Address: When: YANET [address] [place] [phone] Business (1) In 3 days 10/28/2022 Comments: [...] Materials: Kidney Stones; Nonspecific Chest Pain, Adult, Gsut-qg-Hdof A MESSAGE TO ALL PATIENTS REGARDING OPIOIDS PRESCRIPTION OPIOIDS: WHAT YOU NEED TO KNOW Prescription opioids can be used to help relieve zpvkflrc-fk-ubwufh pain and are often prescribed following a [...] friends, and (more content not included)... Normal [facility] HEMATOLOGYOrdered By: SYSTEM SYSTEM on 10-25-2022 Basophils/100 WBC (Bld) 0.7 % Normal 0.0 - 2.0 % [facility] HemeAutoSS Basophils/Leukocytes Auto (Bld) [Pure # fraction] 0.1 E9/L Normal 0.0 - 0.2 E9/L [facility] HemeAutoSS Eosinophils/100 WBC (Bld) 2.9 % Normal 0.0 - 8.0 % [facility] HemeAutoSS Eosinophils/Leukocyte s Auto (Bld) [Pure # fraction] 0.2 E9/L Normal 0.0 - 0.5 E9/L [facility] HemeAutoSS Lymphocytes/100 WBC (Bld) 26.6 % Normal 14.0 - 50.0 % [facility] HemeAutoSS Lymphocytes/Leukocyte s Auto (Bld) [Pure # fraction] 2.3 E9/L Normal 1.0 - 4.0 E9/L [facility] HemeAutoSS Monocytes/100 WBC (Bld) 4.9 % Normal 4.0 - 14.0 % [facility] HemeAutoSS Monocytes/Leukocytes Auto (Bld) [Pure # fraction] 0.4 E9/L Normal 0.2 - 1.0 E9/L [facility] HemeAutoSS Neutrophils/100 WBC (Bld) 64.9 % Normal 36.0 - 75.0 % [facility] HemeAutoSS Neutrophils/Leukocyte s Auto (Bld) [Pure # fraction] 5.5 E9/L [...] 8.5 E9/L Normal 4.0 - 11.0 E9/L [facility] HemeAutoSS Hep Func Panelon 10-25-2022 Albumin [Mass/Vol] 4.1 g/dL Normal 3.3-5.0 [facility] Comment on above: Performed By: #### 2 064079, 08875121, 10555738, 6360029, 0983674, 31312411, 9213026, 8760711, 41377302 ####[facility] [address] [place] [address] Albumin/Globulin (S) [Mass conc ratio] 1.3 Normal 1.1-2.2 [facility] Comment on above: Performed By: #### 2 021374, 09321815, 82180650, 0684572, 8197403, 95844991, 3992729, 4718737, 55427857 ####[facility] [address] [place] [address] ALP [Catalytic activity/Vol] 112 Int._Unit/L High 21-98 [facility] Comment on above: Performed By: #### 2 263418, 90340221, 22587057, 7723765, 4919134, 76358615, 3000264, 9349267, 99244288 ####[place] [address] [place] [address] ALT No additional P-5'-P [Catalytic activity/Vol] 16 Int._Unit/L Normal 6-46 [facility] Comment on above: Performed By: #### 2 720989, 97288937, 46670163, 0691944, 7505399, 93272396, 3032078, 0474402, 92333593 ####[place] [address] AST [Catalytic activity/Vol] 27 Int._Unit/L Normal 5-43 [facility] Comment on above: Performed By: #### 2 994828, 84005069, 09851061, 1862382, 0324320, 87962719, 3508902, 7552927, 15627307 ####[place] [address] Bilirubin [Mass/Vol] 0.5 mg/dL Normal 0.0-1.1 [facility] Comment on above: Performed By: #### 2 241591, 29803028, 24546273, 5995383, 4117161, 75917941, 9819962, 3169852, 75040156 ####[place] [address] Bilirubin.direct [Mass/Vol] 0.1 mg/dL Normal 0.1-0.4 [facility] Comment on above: Performed By: #### 2 915616, 00419037, 43659391, 8755723, 5652264, 71224307, 0856182, 3736392, 59099381 ####[address] [address] Bilirubin.indirect [Mass or moles/Vol] 0.4 mg/dL Normal 0.1-0.9 [facility] Comment on above: Performed By: #### 2 573580, 98330952, 83464668, 8216569, 4869837, 37506236, 7382424, 4356042, 69320015 ####[facility] [address] [place] [address] Globulin (S) [Mass/Vol] 3.2 g/dL Normal 1.4-4.0 [facility] Comment on above: Performed By: #### 2 512843, 53439268, 70916741, 7943666, 1464004, 25079949, 8922029, 8520451, 79781228 ####[facility] [address] [place] [address] Protein [Mass/Vol] 7.3 g/dL Normal 6.0-7.8 [facility] Comment on above: Performed By: #### 2 143134, 84693983, 83707842, 3314731, 4909211, 97893620, 7625484, 2438357, 55192472 ####[facility] [address] [place] [address] Lipase Levelon 10-25-2022 Lipase [Catalytic activity/Vol] 58 U/L Normal 13-58 [facility] Comment on above: Performed By: #### 2 817084, 96569639, 28497076, 1825396, 2045372, 69375390, 0548895, 9224380, 48357353 ####[facility] [address] [place] [address] Lipid Panelon 10-25-2022 Cholesterol [Mass/Vol] 122 mg/dL Normal 120-200 [facility] Comment on above: Performed By: #### 2 442093, 621687088, 59772557, 5523618 #### [facility] [address] [place] [address] Cholesterol in HDL [Mass/Vol] 35 mg/dL Invalid Interpretation Code [facility] Comment on above: Result Comment: HDL > or equal to 60 mg/dL: Low cardiovascular risk HDL < 40 mg/dL : High cardiovascular risk Performed By: #### 2 716901, 631100507, 16777155, 2193389 #### [facility] [address] [place] [address] Cholesterol in LDL [Mass/Vol] 58 mg/dL Normal <=129 [facility] Comment on above: Performed By: #### 2 203222, 150069923, 04127831, 8042781 #### [facility] [address] [place] [address] Cholesterol in VLDL [Mass/Vol] 29 mg/dL Normal 7-40 [facility] Comment on above: Performed By: #### 2 289977, 467754753, 50472269, 5888996 #### [facility] [address] [place] [address] Triglyceride [Mass/Vol] 144 mg/dL Normal <=149 [facility] Comment on above: Performed By: #### 2 821091, 866766345, 17269994, 0083219 #### [facility] [address] [place] [address] PT & PTTon 10-25-2022 aPTT Coag (PPP) [Time] 29.8 second(s) Normal 25.1-36.5 [facility] Comment on above: Result Comment: Para [...] the same coagulation reagent and instrumentation as [facility]. Currently there are no coagulation studies available worldwide for children to 14 days, and no normal ranges. Heparin therapeutic range (represented by Anti-Factor Xa activity of 0.2 - 0.4 U/mL) corresponds to PTT of 56.6 - 109.0 sec. Performed By: #### 2 393302, 29478546, 67821353, 9090471, 8996675, 18228868, 5873395, 5985288, 85042525 ####[facility] [address] [place] [address] INR Coag (PPP) [Relative time] 0.9 {INR} Invalid Interpretation Code [facility] Comment on above: Result Comment: INR results are specifically intended to assess patients stabilized on long-term Anticoagulation therapy suggested INR?s ?Less Intensive Anticoagulation? 2.0 ? 3.0 Conventional Range 3.0 ? 4.5 Performed By: #### 2 715555, 47000659, 12599130, 8947941, 5946669, 91932479, 8448068, 6023811, 04806569 ####[facility] [address] [place] [address] PT Coag (PPP) [Time] 9.5 second(s) Normal 9.4-12.5 [facility] Comment on above: Result Comment: 15 [...] the same coagulation reagent and instrumentation as [facility]. Currently there are no coagulation studies available worldwide for children to 14 days, and no normal ranges. Performed By: #### 2 214960, 98991310, 19635805, 1553452, 7327474, 14377711, 5797274, 3368058, 28808478 ####[facility] [address] [place] [address] Physician Orderon 10-25-2022 Physician Order [id number]#1.0 0CD:127 Normal [facility] Physician Order [id number]#1.0 0CD:127 Normal [facility] SEROLOGYOrdered By: Marga Walsh on 10-25-2022 Beta hCG Ql Negative (10/25/22 10:02 AM) Normal [facility] Man Sero Troponin 0 Hr.on 10-25-2022 Troponin I.cardiac [Mass/Vol] ng/mL Low 10.10-27.10 [facility] Comment on above: Result Comment: The 95% CI (Confidence Interval) PPV (Positive Predictive Value) for myocardial infarction in females is 38 pg/mL, in males 51 pg/mL. The results should be used in conjunction with clinical conditions of myocardial infarction. (Access High Sensitivity Troponin I Instructions For Use, Meryl Warriormine, October 2017) Performed By: #### 2 432565, 54294729, 79496927, 1512968, 4375112, 83932348, 3207730, 8768262, 94179313 ####[facility] [address] [place] [address] UA With Cult Reflexon 2022 Bacteria LM Ql (Urine sed) 1+ /HPF Abnormal Trace [facility] Comment on above: Performed By: #### 1 6925886 #### [facility] [address] [place] [address] Bilirubin Ql (U) Negative Normal Negative [facility] Comment on above: Performed By: #### 1 8777048 #### [facility] [address] [place] [address] Clarity (U) CLEAR Normal Clear [facility] Comment on above: Performed By: #### 1 1576084 #### [facility] [address] [place] [address] Color (U) YELLOW Normal Yellow [facility] Comment on above: Performed By: #### 1 1348942 #### [facility] [address] [place] [address] Epithelial cells.squamous LM.HPF (Urine sed) [#/Area] 5-8 Normal 0-2 [facility] Comment on above: Performed By: #### 1 0609879 #### [facility] [address] [place] [address] Glucose Test strip (U) [Mass/Vol] 3+ Abnormal Negative [facility] Comment on above: Performed By: #### 1 4230653 #### [facility] [address] [place] [address] Hemoglobin Ql (U) 3+ Abnormal Negative [facility] Comment on above: Performed By: #### 1 4364572 #### [facility] [address] [place] [address] Ketones (U) [Mass/Vol] Negative Normal Negative [facility] Comment on above: Performed By: #### 1 2068656 #### [facility] [address] [place] [address] [place].plasma/Lithiu m.RBC (Bld) [Mass ratio] 4-20 Normal 0-3 [facility] Comment on above: Performed By: #### 1 4177979 #### [facility] [address] [place] [address] Mucus Ql (Urine sed) 1+ Normal [facility] Comment on above: Performed By: #### 1 5435972 #### [facility] [address] [place] [address] Nitrite Ql (U) Negative Normal Negative [facility] Comment on above: Performed By: #### 1 6468056 #### [facility] [address] [place] [address] pH (U) 5.5 [pH] Invalid Interpretation Code 5.0-9.0 [facility] Comment on above: Performed By: #### 1 1862087 #### [facility] [address] [place] [address] Protein (U) [Mass/Vol] TRACE Abnormal Negative [facility] Comment on above: Performed By: #### 1 0651257 #### [facility] [address] [place] [address] Specific gravity (U) [Rel density] >=1.030 Invalid Interpretation Code 1.005-1.030 [facility] Comment on above: Performed By: #### 1 3773363 #### [facility] [address] [place] [address] Type of Urine collection method Clean Catch Normal [facility] Comment on above: Performed By: #### 1 4073909 #### [facility] [address] [place] [address] Urobilinogen Qn (U) 0.2 {Lidya'U}/dL Normal 0.0-1.0 [facility] Comment on above: Performed By: #### 1 8323704 #### [facility] [address] [place] [address] WBC Auto Ql (U) Negative Normal Negative [facility] Comment on above: Performed By: #### 1 8996318 #### [facility] [address] [place] [address] WBC LM.HPF (Urine sed) [#/Area] 0-5 Normal 0-5 [facility] Comment on above: Performed By: #### 1 9795338 #### [facility] [address] [place] [address] URINALYSISOrdered By: Norma Walsh on 10-25-2022 Bacteria LM Ql (Urine sed) 1+ /HPF Invalid Interpretation Code Trace/HPF [facility] UA Auto SS Bilirubin Ql (U) Negative (10/25/22 10:16 AM) Normal Negative [facility] UA Auto SS Clarity (U) Clear (10/25/22 10:16 AM) Normal Clear [facility] UA Auto SS Color (U) Yellow (10/25/22 10:16 AM) Normal Yellow [facility] UA Auto SS Epithelial cells.squamous LM.HPF (Urine [...] AM) Normal Negative [facility] UA Auto SS [place].plasma/Lithiu m.RBC (Bld) [Mass ratio] 4-20 /HPF Normal 0-3/HPF [...] Desc Clean Catch (10/25/22 10:16 AM) Normal [facility] UA Auto SS Urobilinogen Qn (U) 0.0025648 {Lidya'U}/dL Normal 0.0 - 1.0 EU/dL [facility] UA Auto SS WBC Auto Ql (U) Negative (10/25/22 10:16 AM) Normal Negative [facility] UA Auto SS WBC LM.HPF (Urine sed) [#/Area] 0-5 /HPF Normal 0-5/HPF [facility] UA Auto SS XR Chest Single Viewon [...] mGy = na DAP = na Normal [facility] eGFRon 10-25-2022 GFR/1.73 sq M.predicted among non-blacks MDRD (S/P/Bld) [Vol rate/Area] 73 mL/min/1.73 m2 Normal >=59 [facility] Comment on above: Order Comment: Order added by Discern Expert. Result Comment: Military Technology Specialist jose kidney disease could be indicated at eGFR's of less than 60 mL/min/1.73m2. Kidney failure is indicated at less than 15 mL/min/1.73m2. Performed By: #### 2 848687, 816711954, 00357148, 6291207 #### [facility] [address] [place] [address] GFR/1.73 sq M.predicted among non-blacks MDRD (S/P/Bld) [Vol rate/Area] 73 mL/min/1.73 m2 Normal >=59 [facility] Comment on above: Order Comment: Order added by Discern Expert. Result Comment: [employer] Specialist jose kidney disease could be indicated at eGFR's of less than 60 mL/min/1.73m2. Kidney failure is indicated at less than 15 mL/min/1.73m2. Performed By: #### 2 555464, 55244868, 83095062, 9814189, 6842740, 28407994, 7639656, 6008278, 80285177 ####[facility] [address] [place] [address] Consent for Treatmenton 09-14 Consent for Treatment [id number] 0CD:127 Normal [facility] Physician Referralon 023 Physician Referral [id number] 0CD:127 Normal [facility] Discharge Instructionson Discharge Instructions [id number] D:127 Normal [facility] Consent for Treatmenton 08-14 Consent for Treatment [id number] 0CD:127 Normal [facility] ED Clinical Summaryon 2022 ED Clinical Summary [address] [address] ED Clinical Summary Person Information Name: TISH VARGAS [place] Age: 41 Years : 1980 Sex: Female Language: Turkish PCP: YANET JUNIOR CNP Marital Status: Phone: [phone] Visit Id: Visit Reason: Vaginal pain; Abscess [...] 21:32:25 ADDRESS: [address] [facility] [id number] PHYS DOC NOTES: MEDICAL INFORMATION: Prescriptions Given: New Medications [facility]/pharmacy #6173, [address], [place] [id number], [phone] clindamycin (clindamycin 150 mg Cap) 3 Capsules By Mouth every 8 hours for 7 Days. Refills: 0. Medications to Continue with No Changes Other Medications acetaminophen-oxycodon e (Percocet 325 mg-5 mg Tab) 1 Tablets [...] Abscess Follow up: With: Address: When: YANET JUNIOR [address] [facility] [place], [place] [phone] Business (1) In 3 days DIAGNOSIS: Abscess Normal [facility] ED Note-Physicianon 08-25-19 ED Note-Physician Basic Information Time Seen: Kevin Nur DO 08/24/2022 19:42 Chief Complaint abscess to groin area today. denies drainage to area. denies body aches or fever. History of Present Illness HPI: Patient is a 41-year-old female past medical history of anxiety, depression, diabetes, VT, hypertension, PCOS who presents the ED for [...] or chills. She has not taken anything vebt-afs-pymnfis yet for this today. ROS: Pertinent review [...] 0.5 cm, #11 scalpel Technique: loculations decompressed Drainage:moderatepurul ent Irrigation: copeous saline Wound: left open Post procedure exam: Circulation, motor, and sensory intact Patient tolerated: well Complications: None Follow-up: PCP within 2 days Antibiotic: Bactrim Home care instructions: Performed by (rpt): YEIMY Chaudhary Medical Decision Making MEDICAL DECISION MAKING Number and Complexity of Problems Differential Diagnosis: [] [facility] Data External documents reviewed: N/A My [...] day(s), # 63 cap(s), Refills(s) 0, Pharmacy: [facility]/pharmacy #[id number], 162, cm, 08/24/22 19:24:00 EDT, [...] q8hr Follow-up With When Contact Information YANET JUNIOR In 3 days [address] [place] [address] [phone] Business (1) Additional Instructions: Patient Education Skin Abscess Problem List/Past Medical History Ongoing Abnormal uterine bleeding Anxiety Coronary artery disease Depression Diabetes Diabetic neuropathy Fatty liver GERD (gastroesophageal reflux disease) Hemorrhoids History of VT (myocardial infarction) HTN (hypertension) Hyperlipidemia Hypertension Insomnia [...] (08/20/2018), Abdominal hysterectomy (2018), Appendectomy (2018), Bilateral salpingo-oophorectomy, x2, Card (more content not included)... Normal [facility] Comment on above: Result Comment: Elec tronically Signed By: Liudmila PIERCE, Kevin White\.br\Date and Time Signed: 08/24/22 21:01 EDT ED [...] these instructions at home: Medicines ? Take efjs-wqx-bhfryfn and prescription medicines only as told by [...] and water are not available, use hand head of transport logistics. ? Check your abscess every day for [...] care pro (more content not included)... Normal [facility] ED Patient Summaryon 023 ED Patient Summary [place] [id number] Patient Discharge Instructions Person Information Name: TISH VARGAS Age: 41 Years Arrival Date: 08/24/2022 19:18:12 Discharge Diagnosis: Abscess Primary Care Physician: YANET JUNIOR CNP Provider Information Primary Provider: Kevin Nur DO [employer] Teacher:Manuel Chaudhary PA-C The exam and treatment you received in the Emergency Department were for an urgent problem and are not intended as complete care. It is important that you follow up with a doctor, nurse practitioner, or physician?s home care assistant for ongoing care. If your symptoms [...] With: Address: When: YANET JUNIOR [address] [place], [place] [phone] Business (1) In 3 days In the event that this physician does not participate in your insurance network, please consult with your insurance company to find a nearby participating provider. Patient Education Materials: Skin Abscess A MESSAGE TO ALL PATIENTS REGARDING OPIOIDS PRESCRIPTION OPIOIDS: WHAT YOU NEED TO KNOW Prescription opioids can be used to help relieve rdztcdmp-ov-bkxdem pain and are often prescribed following a [...] guidance from the Food and Drug Administration (www.fda.gov/Drugs/Res ourcesForYou). ? Visit www.cdc.gov/drugoverdo se to learn about the risks of opioids abuse and overdose. ? If you believe you may be struggling with addiction, tell your health caretaker resort and ask for guidance or call [facility] National Helpline at 8-916-947-LTNP. v Source: Department of (more content not included)... Normal [facility] CHEMISTRYOrdered By: SYSTEM SYSTEM on 06-30-2022 Albumin [Mass/Vol] 4.3 g/dL Normal 3.3 - 5.0 gm/dL [facility] Remisol Albumin/Globulin [Mass ratio] 1.2 {ratio} Normal [...] Normal 0.0 - 8.0 % [facility] HemeAutoSS Eosinophils/Leukocyte s Auto (Bld) [Pure # fraction] 0.2 E9/L Normal 0.0 - 0.5 E9/L [facility]eAutoSS Lymphocytes/100 WBC (Bld) 30.6 % Normal 14.0 - 50.0 % [facility]eAutoSS Lymphocytes/Leukocyte s Auto (Bld) [Pure # fraction] 2.7 E9/L Normal 1.0 - 4.0 E9/L [facility] Monocytes/100 WBC (Bld) 5.3 % Normal 4.0 - 14.0 % [facility]eAutoSS Monocytes/Leukocytes Auto (Bld) [Pure # fraction] 0.5 E9/L Normal 0.2 - 1.0 E9/L [facility] Neutrophils/100 WBC (Bld) 60.8 % Normal 36.0 - 75.0 % [facility]eAutoSS Neutrophils/Leukocyte s Auto (Bld) [Pure # fraction] 5.5 E9/L [...] PM) Normal Negative [facility] UA Auto SS [place].plasma/Lithiu m.RBC (Bld) [Mass ratio] 0-3 /HPF Normal 0-3/HPF [...] Desc Clean Catch (06/30/22 12:43 PM) Normal [facility] UA Auto SS Urobilinogen Qn (U) 0.9390457 {Lidya'U}/dL Normal 0.0 - 1.0 EU/dL [facility] [...] (Bld) [Mass fraction] 7.6 % High <=5.9% [facility] ChemAutoSS CHEMISTRYOrdered By: SYSTEM SYSTEM on 03-04-2022 Anion gap [Moles/Vol] 15 mmol/L Normal 6 - 16 mEq/L F [facility] Remisol Calcium [Mass/Vol] 9.6 mg/dL Normal 8.9 - 11. 1 mg/dL [facility] Chloride [Moles/Vol] 99 mmol/L Low 101 - 1 11 mmol/L [facility] CO2 [Moles/Vol] 26 mmol/L Normal 21 - 31 mmol/L [facility] Creatinine [Mass/Vol] 1.1 mg/dL Normal 0.5 - 1.3 mg/dL [facility] GFR/1.73 sq M.predicted among blacks MDRD (S/P/Bld) [Vol rate/Area] mL/min/1.73 m2 Normal >=59mL/min/1 .73 m2 [facility] Chem S GFR/1.73 sq M.predicted among non-blacks MDRD (S/P/Bld) [Vol rate/Area] 55 mL/min/1.73 m2 Low >=59mL/min/1 .73 m2 [facility] Chem S Glucose [Mass/Vol] 242 mg/dL High 55 - 199 mg/dL [facility] Remisol Potassium [Moles/Vol] 3.8 mmol/L Normal 3.5 - 5.3 mmol/L [facility] Remisol Sodium [Moles/Vol] 136 mmol/L Normal 135 - 145 mmol/L [facility] Remisol Troponin I.cardiac [Mass/Vol] 4.30 pg/mL Low 10.10 - 27.10 pg/mL [facility] Remisol Urea nitrogen [Mass/Vol] 13 mg/dL Normal 5 - 21 mg/dL [facility] Remisol Urea nitrogen/Creatinine [Mass ratio] 12 mg/mg Normal 10 - 20 [facility] Remisol CHEMISTRYOrdered By: Lab ROP User on 03-04-2022 Glucose [Mass/Vol] 238 mg/dL High 55 - 99 mg/dL [facility] POC Subsection Comment on above: Result Comment: Genie gurrola RN/ POC Device SN [id number] Invalid Interpretation Code [facility] POC Subsection POC User ID [id number] Invalid Interpretation Code [facility] POC Subsection POC Username TARIK TIAN Invalid Interpretation Code [facility] POC Subsection COAGULATIONOrdered By: Ozzy Castillo on 03-04-2022 aPTT Coag (PPP) [Time] 28.9 s Normal 25.1 - 36.5 second(s) [facility] Auto Coag INR Coag (PPP) [Relative time] 0.9 {INR} Invalid Interpretation Code [facility] Auto Coag PT Coag (PPP) [Time] 9.7 s Normal 9.4 - 1 2.5 second(s) [facility] Auto Coag HEMATOLOGYOrdered By: SYSTEM SYSTEM on 03-04-2022 Basophils/100 WBC (Bld) 1.0 % Normal 0.0 - 2.0 % [facility] HemeAutoSS Basophils/Leukocytes Auto (Bld) [Pure # fraction] 0.1 E9/L Normal 0.0 - 0.2 E9/L [facility] Eosinophils/100 WBC (Bld) 1.6 % Normal 0.0 - 8.0 % [facility]eAutoSS Eosinophils/Leukocyte s Auto (Bld) [Pure # fraction] 0.1 E9/L Normal 0.0 - 0.5 E9/L [facility] Lymphocytes/100 WBC (Bld) 28.1 % Normal 14.0 - 50.0 % [facility]eAutoSS Lymphocytes/Leukocyte s Auto (Bld) [Pure # fraction] 2.0 E9/L Normal 1.0 - 4.0 E9/L [facility]eAutoSS Monocytes/100 WBC (Bld) 6.4 % Normal 4.0 - 14.0 % [facility]eAutoSS Monocytes/Leukocytes Auto (Bld) [Pure # fraction] 0.5 E9/L Normal 0.2 - 1.0 E9/L [facility] Neutrophils/100 WBC (Bld) 62.9 % Normal 36.0 - 75.0 % [facility]eAutoSS Neutrophils/Leukocyte s Auto (Bld) [Pure # fraction] 4.6 E9/L [...] Normal 0.0 - 8.0 % [facility]eAuto[facility] Eosinophils/Leukocyte s Auto (Bld) [Pure # fraction] 0.1 E9/L Normal 0.0 - 0.5 E9/L [facility]eAuto[facility] Lymphocytes/100 WBC (Bld) 25.6 % Normal 14.0 - 50.0 % [facility]eAutoSS Lymphocytes/Leukocyte s Auto (Bld) [Pure # fraction] 1.8 E9/L Normal 1.0 - 4.0 E9/L [facility]eAutoSS Monocytes/100 WBC (Bld) 6.3 % Normal 4.0 - 14.0 % [facility]eAutoSS Monocytes/Leukocytes Auto (Bld) [Pure # fraction] 0.5 E9/L Normal 0.2 - 1.0 E9/L [facility]eAutoSS Neutrophils/100 WBC (Bld) 65.1 % Normal 36.0 - 75.0 % [facility]eAutoSS Neutrophils/Leukocyte s Auto (Bld) [Pure # fraction] 4.7 E9/L Normal 2.0 - 7.5 E9/L [facility] HEMATOLOGYOrdered By: Asael Mccann on 12-27-2021 Erythrocyte distribution width (RBC) [Ratio] 14.1 % Normal 10.9 - 14.2 % [facility] Hematocrit (Bld) [Volume fraction] 43.8 % Normal 34.0 - 46.0 % [facility] HemeAutoSS Hemoglobin (Bld) [Mass/Vol] 14.6 g/dL Normal [...] AM) Normal Negative [facility] UA Auto SS [place].plasma/Lithiu m.RBC (Bld) [Mass ratio] 0-3 /HPF Normal 0-3/HPF [facility] UA Auto SS Nitrite Ql (U) Negative [...] Desc Clean Catch (12/27/21 2:35 AM) Normal [facility] UA Auto SS Urobilinogen Qn (U) 0.8143009 {Lidya'U}/dL Normal 0.0 - 1.0 EU/dL [facility] UA Auto SS WBC Auto Ql (U) Negative (12/27/21 2:35 AM) Normal Negative [facility] UA Auto SS WBC LM.HPF (Urine sed) [#/Area] 0-5 /HPF Normal 0-5/HPF [facility] UA Auto SS CHEMISTRYOrdered By: Lab ROP User on 10-10-2021 Glucose [Mass/Vol] 114 mg/dL High 55 - 99 mg/dL [facility] POC Subsection Comment on above: Result Comment: Genie gurrola RN/ POC Device SN [id number] Invalid Interpretation Code [facility] POC Subsection POC User ID [id number] Invalid Interpretation Code [facility] POC Subsection POC Username DALJIT GLORIA Invalid Interpretation Code [facility] POC Subsection Glucose [Mass/Vol] 131 mg/dL High 55 - 99 mg/dL [facility] POC Subsection Comment on above: Result Comment: Genie gurrola RN/MD POC Device SN [id number] Invalid Interpretation Code [facility] POC Subsection POC User ID [id number] Invalid Interpretation Code [facility] POC Subsection POC Username DALJIT GLORIA Invalid Interpretation Code [facility] POC Subsection CHEMISTRYOrdered [...] 22 [iU]/d Normal 5 - 43 Int._Unit/L [facility] Remisol Bilirubin [Mass/Vol] 0.6 mg/dL Normal 0.0 - 1 .1 mg/dL [facility] Calcium [Mass/Vol] 9.6 mg/dL Normal 8.9 - 11. 1 mg/dL [facility] Chloride [Moles/Vol] 102 mmol/L Normal 101 - 1 11 mmol/L [facility] CO2 [Moles/Vol] 27 mmol/L Normal 21 - 31 mmol/L [facility] Creatinine [Mass/Vol] 0.8 mg/dL Normal 0.5 - 1.3 mg/dL [facility] GFR/1.73 sq M.predicted among blacks MDRD (S/P/Bld) [Vol rate/Area] mL/min/1.73 m2 Normal >=59mL/min/1 .73 m2 [facility] Chem S GFR/1.73 sq M.predicted among non-blacks MDRD (S/P/Bld) [Vol rate/Area] mL/min/1.73 m2 Normal >=59mL/min/1 .73 m2 [facility] Chem S Globulin (S) [Mass/Vol] 3.1 g/dL Normal 1.4 - 4.0 gm/dL [facility] Glucose [Mass/Vol] 121 mg/dL Normal 55 - 199 mg/dL [facility] Magnesium [Mass/Vol] 1.7 mg/dL Normal 1.3 - 2 .4 mg/dL [facility] Potassium [Moles/Vol] 3.8 mmol/L Normal 3.5 - 5.3 mmol/L [facility] Protein [Mass/Vol] 7.2 g/dL Normal 6.0 - 7.8 gm/dL [facility] Sodium [Moles/Vol] 136 mmol/L Normal 135 - 145 mmol/L [facility] Urea nitrogen [Mass/Vol] 21 mg/dL Normal 5 - 21 mg/dL [facility] Urea nitrogen/Creatinine [Mass ratio] 26 mg/mg High 10 - 20 [facility] Remisol CHEMISTRYOrdered By: Lab ROP User on 10-09-2021 Glucose [Mass/Vol] 200 mg/dL High 55 - 99 mg/dL [facility] POC Subsection Comment on above: Result Comment: Genie gurrola RN/ POC Device SN [id number] Invalid Interpretation Code [facility] POC Subsection POC User ID [id number] Invalid Interpretation Code [facility] POC Subsection POC Username WENDI AYERS Invalid Interpretation Code [facility] POC Subsection CHEMISTRYOrdered By: Pushpa thomas on 10-09-2021 Natriuretic peptide B (Bld) [Mass/Vol] pg/mL Low 5 - 80 pg/mL [facility] HemeManSS COAGULATIONOrdered By: Maira Case on 10-09-2021 aPTT Coag (PPP) [Time] 28.4 s Normal 25.1 - 36.5 second(s) [facility] Auto Coag INR Coag (PPP) [Relative time] 0.9 {INR} Invalid Interpretation Code [facility] Auto Coag PT Coag (PPP) [Time] 10.9 s Normal 10.2 - 12.9 second(s) [facility] Auto Coag HEMATOLOGYOrdered By: SYSTEM SYSTEM on 10-09-2021 Basophils/100 WBC (Bld) 0.7 % Normal 0.0 - 2.0 % [facility]eAutoSS Basophils/Leukocytes Auto (Bld) [Pure # fraction] 0.1 E9/L Normal 0.0 - 0.2 E9/L [facility]eAuto[facility] Eosinophils/100 WBC (Bld) 2.0 % Normal 0.0 - 8.0 % [facility]eAutoSS Eosinophils/Leukocyte s Auto (Bld) [Pure # fraction] 0.2 E9/L Normal 0.0 - 0.5 E9/L [facility]eAuto[facility] Lymphocytes/100 WBC (Bld) 27.4 % Normal 14.0 - 50.0 % [facility]eAutoSS Lymphocytes/Leukocyte s Auto (Bld) [Pure # fraction] 2.2 E9/L Normal 1.0 - 4.0 E9/L [facility]eAutoSS Monocytes/100 WBC (Bld) 5.0 % Normal 4.0 - 14.0 % [facility] HemeAutoSS Monocytes/Leukocytes Auto (Bld) [Pure # fraction] 0.4 E9/L Normal 0.2 - 1.0 E9/L [facility] Neutrophils/100 WBC (Bld) 64.9 % Normal 36.0 - 75.0 % [facility] HemeAutoSS Neutrophils/Leukocyte s Auto (Bld) [Pure # fraction] 5.3 E9/L Normal 2.0 - 7.5 E9/L [facility]eAutoSS HEMATOLOGYOrdered By: Pushpa Renee on 10-09-2021 Erythrocyte distribution width (RBC) [Ratio] 14.2 % Normal 10.9 - 14.2 % [facility]eAutoSS Hematocrit (Bld) [Volume fraction] 43.1 % Normal 34.0 - 46.0 % [facility]eAutoSS Hemoglobin (Bld) [Mass/Vol] 15.3 g/dL Normal 12.0 - 16.0 gm/dL [facility] MCH (RBC) [Entitic mass] 32.8 pg Normal 27.0 - 34.0 pg [facility] MCHC (RBC) [Mass/Vol] 35.5 g/dL Normal 31.4 - 36.0 gm/dL [facility] MCV (RBC) [Entitic vol] 92.4 fL Normal 80.0 - 100.0 fL [facility]eAuto[facility] Platelet mean volume (Bld) [Entitic vol] 8.7 fL Normal 6.4 - 10.8 fL [facility] Platelets (Bld) [#/Vol] 213.0 E9/L Normal 150.0 - 500.0 E9/L [facility]eAutoSS RBC (Bld) [#/Vol] 4.7 E12/L Normal 4.3 - 5.9 E12/L [facility]eAutoSS WBC corrected for nucl RBC Auto (Bld) [#/Vol] 8.2 E9/L Normal 4.0 - 11.0 E9/L [facility] MICRO OTHER TESTSOrdered By: Maira Case on 10-09-2021 Rapid COV Int NEG Ctl Pass (10/09/21 3:20 PM) Normal [facility] Sero Rapid COV Int POS Ctl Pass (10/09/21 3:20 PM) Normal [facility]ero SARS-CoV+SARS-CoV-2 (COVID-19) Ag IA.rapid Ql (Resp) Not Detected (10/09/21 3:20 PM) Normal Not Detected [facility] CHEMISTRYOrdered By: Natalya woodward on [...] rate/Area] mL/min/1.73 m2 Normal >=59mL/min/1 .73 m2 [facility] Chem S Globulin (S) [Mass/Vol] 3.2 g/dL [...] ratio] 17 mg/mg Normal 10 - 20 [facility] Remisol CHEMISTRYOrdered By: Erum herndon on 07-12-2021 HbA1c (Bld) [Mass fraction] 6.9 % High <=5.9% [facility] ChemAutoSS HEMATOLOGYOrdered By: SYSTEM SYSTEM on 07-12-2021 Basophils/100 WBC (Bld) 0.6 % Normal 0.0 - 2.0 % [facility] HemeAutoSS Basophils/Leukocytes Auto (Bld) [Pure # fraction] 0.0 E9/L Normal 0.0 - 0.2 E9/L [facility]eAuto[facility] Eosinophils/100 WBC (Bld) 2.9 % Normal 0.0 - 8.0 % [facility] HemeAutoSS Eosinophils/Leukocyte s Auto (Bld) [Pure # fraction] 0.2 E9/L Normal 0.0 - 0.5 E9/L [facility]eAutoSS Lymphocytes/100 WBC (Bld) 25.2 % Normal 14.0 - 50.0 % [facility]eAutoSS Lymphocytes/Leukocyte s Auto (Bld) [Pure # fraction] 1.9 E9/L Normal 1.0 - 4.0 E9/L [facility] HemeAutoSS Monocytes/100 WBC (Bld) 5.7 % Normal 4.0 - 14.0 % [facility] HemeAutoSS Monocytes/Leukocytes Auto (Bld) [Pure # fraction] 0.4 E9/L Normal 0.2 - 1.0 E9/L [facility]eAutoSS Neutrophils/100 WBC (Bld) 65.6 % Normal 36.0 - 75.0 % [facility] HemeAutoSS Neutrophils/Leukocyte s Auto (Bld) [Pure # fraction] 5.0 E9/L [...] AM) Normal Negative [facility] UA Auto SS [place].plasma/Lithiu m.RBC (Bld) [Mass ratio] 0-3 /HPF Normal 0-3/HPF [...] [facility] UA Auto SS Urobilinogen Qn (U) 0.7866879 {Lidya'U}/dL Normal 0.0 - 1.0 EU/dL [facility] UA Auto SS WBC Auto Ql (U) Negative (07/12/21 9:10 AM) Normal Negative [facility] UA Auto SS WBC LM.HPF (Urine sed) [#/Area] 0-5 /HPF Normal 0-5/HPF [facility] UA Auto SS Yeast LM Ql (Urine sed) Trace (07/12/21 9:10 AM) Normal [facility] UA Auto SS HERPES SIMPLEX VIRUS (HSV) C VLADIMIR 12-20-2020 HSV Culture/Type Comment Normal [facility] Comment on above: Result Comment: Nega tive No Herpes simplex virus isolated. Performed By: #### H SVCUL #### [facility] [address] [place] [address] Dr. Kinga Stringer GLYCOHEMOGLOBIN A1Con 2020 ADA RECOMMENDATION ADA THERAPEUTIC TARG ET 6.0 - 7.0 ACTION SUGGESTED > 7.0 Normal [facility] Comment on above: Performed By: #### A 1C #### [facility] [address] [place] [address] Kt Jackie Glucose [Mass/Vol] 148 mg/dL Normal [facility] Comment on above: Performed By: #### A 1C #### [facility] [address] [place] [address] Kt Jackie HbA1c (Bld) [Mass fraction] 6.8 % Critically high <=6.0 [facility] Comment on above: Performed By: #### A 1C #### [facility] [address] [place] [address] Kt Jackie PROF CHEM 8 (BAS METB)on Anion gap [Moles/Vol] 13.2 mmol/L Normal [facility] Comment on above: Performed By: #### B MP #### [facility] [address] [place], [place] [id number] Kt Jackie Calcium [Mass/Vol] 9.4 mg/dL Normal 8.4-10.2 [facility] Comment on above: Performed By: #### B MP #### [facility] [address] [place] [address] Kt Jackie Chloride [Moles/Vol] 101 mmol/L Normal 98-107 [facility] Comment on above: Performed By: #### B MP #### [facility] [address] [place], [place] [id number] Kt Jackie CO2 [Moles/Vol] 30.3 mmol/L Critically high 22.0-30.0 [facility] Comment on above: Performed By: #### B MP #### [facility] [address] [address] Kt Jackie Creatinine [Mass/Vol] 0.92 mg/dL Normal 0.52-1.04 [facility] Comment on above: Performed By: #### B MP #### [facility] [address] [id number] Kt Jackie EGFR-AF AUSTRALIAN >60 Normal >=60 [facility] Comment on above: Performed By: #### B MP #### [facility] [address] [id number] Kt Jackie EGFR-NON AF AUSTRALIAN >60 Normal >=60 [facility] Comment on above: Performed By: #### B MP #### [facility] [address] [place] [address] Kt Jackie Glucose [Mass/Vol] 160 mg/dL Critically high 74-106 [facility] Comment on above: Performed By: #### B MP #### [facility] [address] [place] [address] Kt Jackie Potassium [Moles/Vol] 4.5 mmol/L Normal 3.4-5.0 [facility] Comment on above: Performed By: #### B MP #### [facility] [address] [place] [address] Kt Jackie Sodium [Moles/Vol] 140 mmol/L Normal 137-145 [facility] Comment on above: Performed By: #### B MP #### [facility] [address] [place] [address] Kt Jackie Urea nitrogen [Mass/Vol] 14.0 mg/dL Normal 7.0-17.0 [facility] Comment on above: Performed By: #### B MP #### [facility] [address] [place], [place] [id number] Kt Jackie Urea nitrogen/Creatinine [Mass ratio] 15.2 mg/mg Normal [facility] Comment on above: Performed By: #### B MP #### [facility] [address] [place], [place] [id number] Kt Jackie Vital Signs Date Time Vital Sign Value Performing Clinician Facility 10-11-2024 14:33-0400 Body mass index (BMI) [Ratio] 40.86 kg/m2 Yanet Junior PIPE BENDER Work Phone: [facility] 10-11-2024 14:33-0400 Body temperature 99 [degF] Yanet Junior [employer]IPE [employer] Work Phone: [facility] 10-11-2024 14:33-0400 Body weight 109.68 kg Yanet Juinor [employer] Work Phone: [facility] 10-11-2024 14:33-0400 Diastolic blood pressure 60 mm[Hg] Yanet Junior [employer]IPE [employer]ER Work Phone: [facility] 10-11-2024 14:33-0400 Heart rate 87 /min Yanet Junior [employer] Work Phone: [facility] 10-11-2024 14:33-0400 Respiratory rate 18 /min Yanet Junior [employer] Work Phone: [facility] 10-11-2024 14:33-0400 SaO2% (BldA) [Mass fraction] 97 % Yanet Junior [employer] Work Phone: [facility] 10-11-2024 14:33-0400 Systolic blood pressure 86 mm[Hg] Yanet Junior PIPE [employer]ER Work Phone: [facility] 07-09-2024 12:00-0400 Respiratory rate 21 /min [facility] 07-09-2024 12:00-0400 Diastolic blood pressure 80 mm[Hg] [facility] 07-09-2024 12:00-0400 Heart rate 75 /min [facility] 07-09-2024 12:00-0400 Mean blood pressure 92 mm[Hg] [facility] 07-09-2024 12:00-0400 SaO2% (BldA) [Mass fraction] 92 % [facility] 07-09-2024 12:00-0400 Systolic blood pressure 115 mm[Hg] [facility] 07-09-2024 11:32-0400 Body temperature 98.6 [degF] [facility] 07-09-2024 11:32-0400 Diastolic blood pressure 68 mm[Hg] [facility] 07-09-2024 11:32-0400 Heart rate 81 /min [facility] 07-09-2024 11:32-0400 Respiratory rate 24 /min [facility] 07-09-2024 11:32-0400 SaO2% (BldA) [Mass fraction] 94 % [facility] 07-09-2024 11:32-0400 Systolic blood pressure 114 mm[Hg] [facility] 03-14-2024 13:08-0500 Body height 163.8 cm Yanet Junior PIPE [employer]ER Work Phone: [facility] 03-14-2024 13:08-0500 Body mass index (BMI) [Ratio] 42.08 kg/m2 Yanet Vernon [employer] Work Phone: [facility] 03-14-2024 13:08-0500 Body temperature 98.49 [degF] Yanet Vernon PIPE [employer]ER Work Phone: [facility] 03-14-2024 13:08-0500 Body weight 112.95 kg Yanet Vernon PIPE [employer]ER Work Phone: [facility] 03-14-2024 13:08-0500 Diastolic blood pressure 78 mm[Hg] Yanet Munaz [employer]IPE [employer]ER Work Phone: [facility] 03-14-2024 13:08-0500 Heart rate 87 /min Yanet Munaz [employer]IPE [employer]ER Work Phone: [facility] 03-14-2024 13:08-0500 Respiratory rate 18 /min Yanet Munaz [employer]IPE [employer]ER Work Phone: [facility] 03-14-2024 13:08-0500 SaO2% (BldA) [Mass fraction] 98 % Yanet Aichholz [employer]ER Work Phone: [facility] 03-14-2024 13:08-0500 Systolic blood pressure 108 mm[Hg] Yanet Aichholz PIPE [employer]ER Work Phone: [facility] 12-30-2023 11:50-0400 Body height 163.8 cm Yanet Aichholz [employer]ER Work Phone: [facility] 12-30-2023 11:50-0400 Body mass index (BMI) [Ratio] 38.77 kg/m2 Yanet Aichholz [employer]ER Work Phone: [facility] 12-30-2023 11:50-0400 Body weight 104.06 kg Yanet Aichholz [employer]ER Work Phone: [facility] 12-30-2023 11:50-0400 Diastolic blood pressure 60 mm[Hg] Yanet Aichholz PIPE [employer]ER Work Phone: [facility] 12-30-2023 11:50-0400 Heart rate 68 /min Yanet Aichholz PIPE [employer]ER Work Phone: [facility] 12-30-2023 11:50-0400 Respiratory rate 20 /min Yanet Aichholz PIPE [employer]ER Work Phone: [facility] 12-30-2023 11:50-0400 Systolic blood pressure 90 mm[Hg] Yanet Aichholz PIPE [employer]ER Work Phone: [facility] 10-29-2023 21:49-0400 Body temperature 97.7 [degF] Kaylinn Dokken [facility] 10-29-2023 21:49-0400 Diastolic blood pressure 75 mm[Hg] Kaylinn Dokken [facility] 10-29-2023 21:49-0400 Heart rate 91 /min Kaylinn Dokken [facility] 10-29-2023 21:49-0400 Respiratory rate 16 /min Kaylinn Dokken [facility] 10-29-2023 21:49-0400 SaO2% (BldA) [Mass fraction] 96 % Kaylinn Dokken [facility] 10-29-2023 21:49-0400 Systolic blood pressure 98 mm[Hg] Kaylinn Dokken [facility] 10-11-2023 19:53-0400 Body height 160.02 cm [facility] 10-11-2023 19:53-0400 Body temperature 98.4 [degF] [facility] 10-11-2023 19:53-0400 Body weight 106.59 kg [facility] 10-11-2023 19:53-0400 Diastolic blood pressure 57 mm[Hg] [facility] 10-11-2023 19:53-0400 Heart rate 96 /min [facility] 10-11-2023 19:53-0400 Respiratory rate 18 /min [facility] 10-11-2023 19:53-0400 SaO2% (BldA) [Mass fraction] 95 % [facility] 10-11-2023 19:53-0400 Systolic blood pressure 94 mm[Hg] [facility] 10-11-2023 00:55-0400 Diastolic blood pressure 68 mm[Hg] Kay[facility]inn [facility] 10-11-2023 00:55-0400 Heart rate 84 /min Kaylinn [facility] 10-11-2023 00:55-0400 Mean blood pressure 80 mm[Hg] Kaylinn [facility] 10-11-2023 00:55-0400 Respiratory rate 19 /min Kaylinn [facility] 10-11-2023 00:55-0400 SaO2% (BldA) [Mass fraction] 93 % Kaylinn D[facility]ken [facility] 10-11-2023 00:55-0400 Systolic blood pressure 105 mm[Hg] Kaylinn [facility] 10-11-2023 00:25-0400 Diastolic blood pressure 57 mm[Hg] Kaylinn [facility]ken [facility] 10-11-2023 00:25-0400 Heart rate 81 /min Kaylinn [facility] 10-11-2023 00:25-0400 Mean blood pressure 70 mm[Hg] Kaylinn D[facility]ken [facility] 10-11-2023 00:25-0400 Respiratory rate 18 /min Kaylinn [facility] 10-11-2023 00:25-0400 SaO2% (BldA) [Mass fraction] 93 % Kaylinn [facility]ken [facility] 10-11-2023 00:25-0400 Systolic blood pressure 95 mm[Hg] Kaylinn [facility]ken [facility] 10-11-2023 00:20-0400 SaO2% (BldA) [Mass fraction] 82 % Kaylinn [facility] Comment on above: Result Comment: Pt sleeping heavily at t his time. Nurse and Doctor to room, patient awoke and suddenly back up to 93% once awake. 10-10-2023 23:33-0400 Diastolic blood pressure 78 mm[Hg] Kaylinn [facility] 10-10-2023 23:33-0400 Heart rate 84 /min Kaylinn [facility] 10-10-2023 23:33-0400 Mean blood pressure 87 mm[Hg] Shoshanaylinn D[facility]ken [facility] 10-10-2023 23:33-0400 Respiratory rate 16 /min Shoshanaylinn [facility]ken [facility] 10-10-2023 23:33-0400 Systolic blood pressure 105 mm[Hg] Shoshanaylinn [facility] 10-10-2023 22:48-0400 Body temperature 98.24 [degF] Shoshanaylinn [facility]ken [facility] 10-10-2023 22:48-0400 Heart rate 89 /min Manishinn [facility] 10-10-2023 22:48-0400 Respiratory rate 18 /min Heiden [facility] 10-10-2023 13:17-0400 Hourly Rounding Vanita Nataprawira [facility] Comment on above: Result Comment: Discharge instructions g iven to pt; denies further needs. 10-10-2023 12:14-0400 Blood Pressure Location Vanita Nataprawira [facility] 10-10-2023 12:14-0400 Diastolic blood pressure 89 mm[Hg] Vanita Nataprawira [facility] 10-10-2023 12:14-0400 Heart rate 89 /min Vanita Nataprawira [facility] 10-10-2023 12:14-0400 Respiratory rate 18 /min Vanita Nataprawira [facility] 10-10-2023 12:14-0400 Systolic blood pressure 131 mm[Hg] Vanita Nataprawira [facility] 10-10-2023 11:22-0400 Hourly Rounding Vanita Nataprawira [facility] Comment on above: Result Comment: Pt up in bathroom; no ne eds noted. 10-10-2023 10:30-0400 Blood Pressure Location Vanita Nataprawira [facility] 10-10-2023 10:30-0400 Body temperature 98.24 [degF] Vanita Nataprawira [facility] 10-10-2023 10:30-0400 Diastolic blood pressure 68 mm[Hg] Vanita Nataprawira [facility] 10-10-2023 10:30-0400 Heart rate 82 /min Vanita Nataprawira [facility] 10-10-2023 10:30-0400 Mean blood pressure 83 mm[Hg] Vanita Nataprawira [facility] 10-10-2023 10:30-0400 Respiratory rate 18 /min Vanita Nataprawira [facility] 10-10-2023 10:30-0400 Systolic blood pressure 112 mm[Hg] Vanita Nataprawira [facility] 10-10-2023 10:05-0400 Hourly Rounding Vanita Nataprawira [facility] Comment on above: Result Comment: Pt medicated for post op pain; no other needs noted. 10-10-2023 09:40-0400 Blood Pressure Location Vanita Nataprawira [facility] 10-10-2023 09:40-0400 Body temperature 98.42 [degF] Vanita Nataprawira [facility] 10-10-2023 09:40-0400 Diastolic blood pressure 82 mm[Hg] Vanita Nataprawira [facility] 10-10-2023 09:40-0400 Heart rate 89 /min Vanita Nataprawira [facility] 10-10-2023 09:40-0400 Respiratory rate 16 /min Vanita Nataprawira [facility] 10-10-2023 09:40-0400 SaO2% (BldA) [Mass fraction] 97 % Vanita Nataprawira [facility] 10-10-2023 09:40-0400 Systolic blood pressure 131 mm[Hg] Vanita Nataprawira [facility] 10-10-2023 09:33-0400 Body temperature 97.7 [degF] Vanita Nataprawira [facility] 10-10-2023 09:33-0400 Heart rate 78 /min Vanita Nataprawira [facility] 10-10-2023 09:33-0400 Mean blood pressure 85 mm[Hg] Vanita Nataprawira [facility] 10-10-2023 09:33-0400 Respiratory rate 10 /min Vanita Nataprawira [facility] 10-10-2023 09:33-0400 SaO2% (BldA) [Mass fraction] 95 % Vanita Nataprawira [facility] 10-10-2023 09:30-0400 Mean blood pressure 85 mm[Hg] Vanita Nataprawira [facility] 10-10-2023 09:30-0400 Respiratory rate 8 /min Vanita Nataprawira [facility] 10-10-2023 09:30-0400 SaO2% (BldA) [Mass fraction] 97 % Vanita Nataprawira [facility] 10-10-2023 09:20-0400 Respiratory rate 6 /min Vanita Nataprawira [facility] 10-10-2023 09:08-0400 Body temperature 97.16 [degF] Vanita Nataprawira [facility] 10-10-2023 03:57-0400 Body temperature 98.06 [degF] Vanita Nataprawira [facility] 10-10-2023 03:57-0400 Heart rate 64 /min Vanita Nataprawira [facility] 10-10-2023 00:00-0400 Heart rate 72 /min Vanita Nataprawira [facility] 10-09-2023 21:26-0400 Heart rate 91 /min Vanita Nataprawira [facility] 10-09-2023 20:15-0400 Heart rate 81 /min Vanita Nataprawira [facility] 10-09-2023 18:00-0400 Promise to Return Vanita Nataprawira [facility] 10-09-2023 17:00-0400 Promise to Return Vanita Nataprawira [facility] 10-09-2023 16:00-0400 Promise to Return Vanita Nataprawira [facility] 10-09-2023 15:00-0400 Body temperature 97.88 [degF] Vanita Nataprawira [facility] 10-09-2023 11:00-0400 Body temperature 98.06 [degF] Vanita Nataprawira [facility] 10-09-2023 08:52-0400 Heart rate 80 /min Vanita Nataprawira [facility] 10-08-2023 22:44-0400 gluc 148 mg/dL Vanita Nataprawira [facility] 10-08-2023 15:33-0400 Mean blood pressure 84 mm[Hg] Vanita Nataprawira [facility] 10-03-2023 00:39-0400 Diastolic blood pressure 87 mm[Hg] Kevin Liudmila [facility] 10-03-2023 00:39-0400 Heart rate 111 /min Kevin Liudmila [facility] 10-03-2023 00:39-0400 Respiratory rate 18 /min Kevin Liudmila [facility] 10-03-2023 00:39-0400 SaO2% (BldA) [Mass fraction] 98 % Kevin Liudmila [facility] 10-03-2023 00:39-0400 Systolic blood pressure 112 mm[Hg] Kevin Liudmila [facility] 10-03-2023 00:05-0400 Nursing Progress Note Reason Other: requesting additional pain meds Kevin Liudmila [facility] 10-02-2023 23:21-0400 Diastolic blood pressure 83 mm[Hg] Kevin Liudmila [facility] 10-02-2023 23:21-0400 Heart rate 108 /min Kevin Liudmila [facility] 10-02-2023 23:21-0400 Respiratory rate 20 /min Kevin Liudmila [facility] 10-02-2023 23:21-0400 SaO2% (BldA) [Mass fraction] 97 % Kevin Liudmila [facility] 10-02-2023 23:21-0400 Systolic blood pressure 111 mm[Hg] Kevin Liudmila [facility] 10-02-2023 21:39-0400 Body temperature 98.06 [degF] Kevin Liudmila [facility] 10-02-2023 21:39-0400 Diastolic blood pressure 76 mm[Hg] Kevin Liudmila [facility] 10-02-2023 21:39-0400 Heart rate 110 /min Kevin Liudmila [facility] 10-02-2023 21:39-0400 Respiratory rate 20 /min Kevin Liudmila [facility] 10-02-2023 21:39-0400 SaO2% (BldA) [Mass fraction] 99 % Kevin Liudmila [facility] 10-02-2023 21:39-0400 Systolic blood pressure 99 mm[Hg] Kevin Liudmila [facility] 10-02-2023 12:41-0400 Body temperature 98.06 [degF] Juan Arnold [facility] 10-02-2023 12:41-0400 Diastolic blood pressure 79 mm[Hg] Juan Arnold [facility] 10-02-2023 12:41-0400 Heart rate 97 /min Juan Arnold [facility] 10-02-2023 12:41-0400 Respiratory rate 18 /min Juan Arnold [facility] 10-02-2023 12:41-0400 SaO2% (BldA) [Mass fraction] 96 % Juan Arnold [facility] 10-02-2023 12:41-0400 Systolic blood pressure 109 mm[Hg] Juan Arnold [facility] 09-25-2023 08:52-0400 Diastolic blood pressure 79 mm[Hg] Kevin Liudmila [facility] 09-25-2023 08:52-0400 Heart rate 84 /min Kevin Liudmila [facility] 09-25-2023 08:52-0400 Mean blood pressure 91 mm[Hg] Kevin Liudmila [facility] 09-25-2023 08:52-0400 Respiratory rate 18 /min Kevin Liudmila [facility] 09-25-2023 08:52-0400 SaO2% (BldA) [Mass fraction] 95 % Kevin Liudmila [facility] 09-25-2023 08:52-0400 Systolic blood pressure 115 mm[Hg] Kevin Liudmila [facility] 09-25-2023 08:04-0400 Diastolic blood pressure 77 mm[Hg] Kevin Liudmila [facility] 09-25-2023 08:04-0400 Heart rate 89 /min Kevin Liudmila [facility] 09-25-2023 08:04-0400 Mean blood pressure 87 mm[Hg] Kevin Liudmila [facility] 09-25-2023 08:04-0400 Respiratory rate 18 /min Kevin Liudmila [facility] 09-25-2023 08:04-0400 SaO2% (BldA) [Mass fraction] 95 % Kevin Liudmila [facility] 09-25-2023 08:04-0400 Systolic blood pressure 106 mm[Hg] Kevin Liudmila [facility] 09-25-2023 07:10-0400 Diastolic blood pressure 88 mm[Hg] Kevin Liudmila [facility] 09-25-2023 07:10-0400 Heart rate 85 /min Kevin Liudmila [facility] 09-25-2023 07:10-0400 Mean blood pressure 97 mm[Hg] Kevin Liudmila [facility] 09-25-2023 07:10-0400 Respiratory rate 18 /min Kevin Liudmila [facility] 09-25-2023 07:10-0400 SaO2% (BldA) [Mass fraction] 97 % Kevin Liudmila [facility] 09-25-2023 07:10-0400 Systolic blood pressure 116 mm[Hg] Kevin Liudmila [facility] 09-25-2023 07:02-0400 Respiratory rate 18 /min Kevin Liudmila [facility] 09-25-2023 06:36-0400 Body temperature 97.88 [degF] Kevin Liudmila [facility] 09-25-2023 06:36-0400 Heart rate 109 /min Kevin Liudmila [facility] 09-25-2023 06:36-0400 Respiratory rate 16 /min Kevin Liudmila [facility] 08-10-2023 21:45-0400 Diastolic blood pressure 70 mm[Hg] Juan Clayton [facility] 08-10-2023 21:45-0400 Heart rate 67 /min Juan Clayton [facility] 08-10-2023 21:45-0400 Mean blood pressure 86 mm[Hg] Juan Clayton [facility] 08-10-2023 21:45-0400 Respiratory rate 17 /min Juan Clayton [facility] 08-10-2023 21:45-0400 SaO2% (BldA) [Mass fraction] 94 % Juan Clayton [facility] 08-10-2023 21:45-0400 Systolic blood pressure 118 mm[Hg] Juan Clayton [facility] 08-10-2023 21:12-0400 Body temperature 97.88 [degF] Juan Clayton [facility] 08-10-2023 21:12-0400 Diastolic blood pressure 59 mm[Hg] Juan Clayton [facility] 08-10-2023 21:12-0400 Heart rate 74 /min Juan Clayton [facility] 08-10-2023 21:12-0400 Mean blood pressure 71 mm[Hg] Juan Clayton [facility] 08-10-2023 21:12-0400 Respiratory rate 15 /min Juan Clayton [facility] 08-10-2023 21:12-0400 SaO2% (BldA) [Mass fraction] 93 % Juan Clayton [facility] 08-10-2023 21:12-0400 Systolic blood pressure 95 mm[Hg] Juan Clayton [facility] 08-10-2023 20:30-0400 Diastolic blood pressure 56 mm[Hg] Juan Arnold [facility] 08-10-2023 20:30-0400 Heart rate 70 /min Juan Clayton [facility] 08-10-2023 20:30-0400 Mean blood pressure 69 mm[Hg] Juan Arnold [facility] 08-10-2023 20:30-0400 Respiratory rate 11 /min Juan Arnold [facility] 08-10-2023 20:30-0400 SaO2% (BldA) [Mass fraction] 94 % Juan Arnold [facility] 08-10-2023 20:30-0400 Systolic blood pressure 95 mm[Hg] Juan Clayton [facility] 08-10-2023 19:07-0400 Body temperature 98.06 [degF] Juan Arnold [facility] 08-10-2023 19:07-0400 Heart rate 86 /min Juan Arnold [facility] 08-10-2023 19:07-0400 Respiratory rate 20 /min Juan Arnold [facility] 07-30-2023 02:18-0400 Diastolic blood pressure 102 mm[Hg] Kaylinn [facility] 07-30-2023 02:18-0400 Heart rate 88 /min Kaylinn [facility]ken [facility] 07-30-2023 02:18-0400 Mean blood pressure 109 mm[Hg] Kaylinn [facility] 07-30-2023 02:18-0400 SaO2% (BldA) [Mass fraction] 93 % Kaylinn [facility] 07-30-2023 02:18-0400 Systolic blood pressure 123 mm[Hg] Kaylinn [facility] 07-30-2023 01:00-0400 Body temperature 97.7 [degF] Kaylinn [facility] 07-30-2023 01:00-0400 Heart rate 83 /min Kaylinn [facility] 07-30-2023 01:00-0400 Mean blood pressure 83 mm[Hg] Kaylinn [facility] 07-30-2023 01:00-0400 SaO2% (BldA) [Mass fraction] 94 % Kaylinn [facility] 07-30-2023 01:00-0400 Systolic blood pressure 110 mm[Hg] Kaylinn [facility] 07-30-2023 00:13-0400 Diastolic blood pressure 69 mm[Hg] Kaylinn [facility] 07-30-2023 00:13-0400 Heart rate 80 /min Kaylinn [facility] 07-30-2023 00:13-0400 Mean blood pressure 79 mm[Hg] Kaylinn [facility] 07-30-2023 00:13-0400 Respiratory rate 16 /min Kaylinn [facility] 07-30-2023 00:13-0400 SaO2% (BldA) [Mass fraction] 96 % Kaylinn D[facility]ken [facility] 07-30-2023 00:13-0400 Systolic blood pressure 100 mm[Hg] Janes Bowles [facility] 07-29-2023 21:29-0400 Body temperature 97.88 [degF] [facility] 07-29-2023 21:29-0400 Respiratory rate 18 /min Manishksriley Bowles [facility] 05-28-2023 15:00-0400 Diastolic blood pressure 68 mm[Hg] [facility] 05-28-2023 15:00-0400 Heart rate 83 /min [facility] 05-28-2023 15:00-0400 Mean blood pressure 75 mm[Hg] [facility] 05-28-2023 15:00-0400 Systolic blood pressure 90 mm[Hg] [facility] 05-28-2023 14:40-0400 Diastolic blood pressure 64 mm[Hg] [facility] 05-28-2023 14:40-0400 Heart rate 79 /min [facility] 05-28-2023 14:40-0400 Mean blood pressure 76 mm[Hg] [facility] 05-28-2023 14:40-0400 Respiratory rate 16 /min [facility] 05-28-2023 14:40-0400 SaO2% (BldA) [Mass fraction] 94 % [facility] 05-28-2023 14:40-0400 Systolic blood pressure 100 mm[Hg] [facility] 05-28-2023 13:02-0400 Body temperature 98.06 [degF] [facility] 05-28-2023 13:02-0400 Diastolic blood pressure 75 mm[Hg] [facility] 05-28-2023 13:02-0400 Heart rate 77 /min [facility] 05-28-2023 13:02-0400 SaO2% (BldA) [Mass fraction] 97 % [facility] 05-28-2023 13:02-0400 Systolic blood pressure 122 mm[Hg] [facility] 10-28-2022 18:54-0400 Diastolic blood pressure 69 mm[Hg] Gunnar Benjamine [facility] 10-28-2022 18:54-0400 Heart rate 78 /min Gunnar Benjamine [facility] 10-28-2022 18:54-0400 Mean blood pressure 83 mm[Hg] Gunnar Benjamine [facility] 10-28-2022 18:54-0400 SaO2% (BldA) [Mass fraction] 98 % Gunnar Juan Carlos [facility] 10-28-2022 18:54-0400 Systolic blood pressure 112 mm[Hg] Gunnar Juan Carlos [facility] 10-28-2022 16:57-0400 Diastolic blood pressure 83 mm[Hg] Gunnar Benjamine [facility] 10-28-2022 16:57-0400 Heart rate 84 /min Gunnar Benjamine [facility] 10-28-2022 16:57-0400 Mean blood pressure 93 mm[Hg] Gunnar Juan Carlos [facility] 10-28-2022 16:57-0400 SaO2% (BldA) [Mass fraction] 97 % Gunnar Juan Carlos [facility] 10-28-2022 16:57-0400 Systolic blood pressure 114 mm[Hg] Gunnar Benjamine [facility] 10-28-2022 15:15-0400 Body temperature 98.06 [degF] Gunnar Benjamine [facility] 10-28-2022 15:15-0400 Diastolic blood pressure 68 mm[Hg] Gunnar Benjamine [facility] 10-28-2022 15:15-0400 Heart rate 87 /min Gunnar Benjamine [facility] 10-28-2022 15:15-0400 Respiratory rate 18 /min Gunnar Benjamine [facility] 10-28-2022 15:15-0400 SaO2% (BldA) [Mass fraction] 95 % Gunnar Benjamine [facility] 10-28-2022 15:15-0400 Systolic blood pressure 104 mm[Hg] Gunnar Benjamine [facility] 10-25-2022 11:00-0400 Heart rate 75 /min Gunnar eBnjamine [facility] 10-25-2022 11:00-0400 Mean blood pressure 82 mm[Hg] Gunnar Benjamine [facility] 10-25-2022 11:00-0400 Respiratory rate 17 /min Gunnar Benjamine [facility] 10-25-2022 11:00-0400 SaO2% (BldA) [Mass fraction] 92 % Gunnar Juan Carlos [facility] 10-25-2022 11:00-0400 Systolic blood pressure 93 mm[Hg] Gunnar Juan Carlos [facility] 10-25-2022 09:32-0400 Body temperature 97.7 [degF] Gunnar Benjamine [facility] 10-25-2022 09:32-0400 Diastolic blood pressure 76 mm[Hg] Gunnar Rangel [facility] 10-25-2022 09:32-0400 Heart rate 87 /min Gunnar Rangel [facility] 10-25-2022 09:32-0400 Respiratory rate 18 /min Gunnar Rangel [facility] 10-25-2022 09:32-0400 SaO2% (BldA) [Mass fraction] 94 % Gunnar Rangel [facility] 10-25-2022 09:32-0400 Systolic blood pressure 104 mm[Hg] Gunnar Rangel [facility] 03-04-2022 20:00-0500 Diastolic blood pressure 82 mm[Hg] Kevin Liudmila [facility] 03-04-2022 20:00-0500 Heart rate 88 /min Kevin Liudmila [facility] 03-04-2022 20:00-0500 Mean blood pressure 87 mm[Hg] Kevin Liudmila [facility] 03-04-2022 20:00-0500 Respiratory rate 29 /min Kevin Liudmila [facility] 03-04-2022 20:00-0500 SaO2% (BldA) [Mass fraction] 93 % Kevin Liudmila [facility] 03-04-2022 20:00-0500 Systolic blood pressure 98 mm[Hg] Kevin Liudmila [facility] 03-04-2022 18:25-0500 Body temperature 98.06 [degF] Kevin Liudmila [facility] 03-04-2022 18:25-0500 Diastolic blood pressure 86 mm[Hg] Kevin Liudmila [facility] 03-04-2022 18:25-0500 Heart rate 102 /min Kevin Liudmila [facility] 03-04-2022 18:25-0500 Respiratory rate 21 /min Kevin Liudmila [facility] 03-04-2022 18:25-0500 SaO2% (BldA) [Mass fraction] 95 % Kevin Liudmila [facility] 03-04-2022 18:25-0500 Systolic blood pressure 137 mm[Hg] Kevin Liudmila [facility] 12-27-2021 02:56-0400 Diastolic blood pressure 68 mm[Hg] Kaylinn Dokken [facility] 12-27-2021 02:56-0400 Heart rate 87 /min Kaylinn Dokken [facility] 12-27-2021 02:56-0400 Mean blood pressure 80 mm[Hg] Kaylinn Dokken [facility] 12-27-2021 02:56-0400 SaO2% (BldA) [Mass fraction] 97 % Kaylinn Dokken [facility] 12-27-2021 02:56-0400 Systolic blood pressure 105 mm[Hg] Kaylinn Dokken [facility] 12-27-2021 01:58-0400 Body temperature 97.52 [degF] Kaylinn Dokken [facility] 12-27-2021 01:58-0400 Diastolic blood pressure 110 mm[Hg] Kaylinn Dokken [facility] 12-27-2021 01:58-0400 Heart rate 94 /min Janes Bowles [facility] 12-27-2021 01:58-0400 Respiratory rate 16 /min Janes Bowles [facility] 12-27-2021 01:58-0400 SaO2% (BldA) [Mass fraction] 99 % [facility] 12-27-2021 01:58-0400 Systolic blood pressure 157 mm[Hg] Janes Bowles [facility] 10-10-2021 12:00-0400 Hourly Rounding [facility] 10-10-2021 12:00-0400 Promise to Return [facility] 10-10-2021 11:59-0400 gluc 114 mg/dL [facility] 10-10-2021 11:55-0400 Body temperature 97.88 [degF] [facility] 10-10-2021 11:55-0400 Diastolic blood pressure 91 mm[Hg] [facility] 10-10-2021 11:55-0400 Heart rate 78 /min [facility] 10-10-2021 11:55-0400 Mean blood pressure 105 mm[facility]Hg[facility] 10-10-2021 11:55-0400 SaO2% (BldA) [Mass fraction] 92 % [facility] 10-10-2021 11:55-0400 Systolic blood pressure 133 mm[Hg] [facility] 10-10-2021 11:00-0400 Hourly Rounding [facility] 10-10-2021 11:00-0400 Promise to Return [facility] 10-10-2021 10:18-0400 Blood Pressure Location [facility] 10-10-2021 10:18-0400 Body temperature 97.52 [degF] [facility] 10-10-2021 10:18-0400 BP/Pulse Patient Position [facility] 10-10-2021 10:18-0400 Diastolic blood pressure 81 mm[Hg] [facility] 10-10-2021 10:18-0400 Heart rate 82 /[facility] 10-10-2021 10:18-0400 Mean blood pressure 93 mm[Hg] [facility] 10-10-2021 10:18-0400 Respiratory rate 18 /min [facility] 10-10-2021 10:18-0400 SaO2% (BldA) [Mass fraction] 94 % [facility] 10-10-2021 10:18-0400 Systolic blood pressure 117 mm[Hg] [facility] 10-10-2021 10:00-0400 Hourly [facility]ing [facility] 10-10-2021 10:00-0400 Promise to Return [facility] 10-10-2021 09:00-0400 SaO2% (BldA) [Mass fraction] 95 % [facility] 10-10-2021 08:50-0400 Diastolic blood pressure 77 mm[Hg] [facility] 10-10-2021 08:50-0400 Heart rate 80 /min [facility] 10-10-2021 08:50-0400 Systolic blood pressure 120 mm[Hg] [facility] 10-10-2021 08:32-0400 gluc 131 mg/dL [facility] 10-10-2021 07:43-0400 Body temperature 97.52 [degF] [facility] 07:43-0400 Heart rate 79 /[facility] 10-10-2021 00:19-0400 Blood Pressure [facility] 10-10-2021 00:19-0400 BP/Pulse [facility] 10-09-2021 23:00-0400 Heart rate 87 /min [facility] 10-09-2021 23:00-0400 Mean blood pressure 78 mm[Hg] [facility] 21:37-0400 gluc 200 mg/dL [facility] 10-09-2021 21:33-0400 Heart rate 85 /min [facility] 10-09-2021 19:23-0400 Mean blood pressure 89 mm[Hg] [facility]-09-2021 18:14-0400 Heart rate 103 /min [facility] 10-09-2021 17:34-0400 Mean blood pressure 88 mm[Hg] [facility]-09-2021 17:34-0400 Respiratory rate 24 /min [facility] 10-09-2021 17:27-0400 Mean blood pressure 93 mm[Hg] [facility]-09-2021 17:27-0400 Respiratory rate 14 /[facility] 10-09-2021 16:11-0400 Respiratory rate 16 /min [facility] 10-09-2021 14:15-0400 Heart rate 110 /min [facility] 10-09-2021 14:15-0400 Respiratory rate 18 /min [facility] 06-07-2021 20:36-0400 Body temperature 97.88 [degF] [facility] 06-07-2021 20:36-0400 Diastolic blood pressure 71 mm[Hg] [facility] 06-07-2021 20:36-0400 Heart rate 107 /min [facility] 06-07-2021 20:36-0400 Respiratory rate 16 /min [facility] 06-07-2021 20:36-0400 SaO2% (BldA) [Mass fraction] 93 % [facility] 06-07-2021 20:36-0400 Systolic blood pressure 132 mm[Hg] [facility] Encounters Encounter Date Encounter Type Care Provider Facility Start: 11-01-2024 ambulatory Jim Garcia lity:KOBI Grajeda Start: 10-19-2024 End: 10-19-2024 Refill Yanet Junior PIPE [employer]ER Work Phone: [facility] Comment on above: Type 2 diabetes sharifa itus with diabetic polyneuropathy, with long-term current use of insulin (HCC); Wheezing Start: 10-17-2024 End: 10-17-2024 ambulatory Jim Foreman Facility:[facility] Start: 10-17-2024 End: 10-17-2024 Patient encounter procedure Jim Foreman [facility] Start: 10-12-2024 ambulatory Jim Foreman Facilit y:[facility] Start: 10-11-2024 End: 10-11-2024 ambulatory YANET VERNON Not Available Start: 10-11-2024 End: 10-11-2024 Bamboo flowsheet Yanetdoug Junior PIPE BENDER Work Phone: [facility] Start: 10-11-2024 End: 10-11-2024 Bamboo flowsheet Yanet Junior PIPE BENDER Work Phone: [facility] Start: 10-11-2024 End: 10-11-2024 Office outpatient visit 25 minutes Yanet Junior NP Work Phone: [facility] Comment on above: Abdominal pain, unsp ecified abdominal location (Primary Dx); Gastroesophageal reflux disease, unspecified whether esophagitis present; Hemorrhoids, unspecified hemorrhoid type; Atherosclerotic heart disease of creek coronary artery without angina pectoris ; Coronary atherosclerosis ; Pulmonary emphysema, unspecified emphysema type (HCC); Vitamin D deficiency; Diabetes mellitus type 2, insulin dependent ([facility]); Mixed hyperlipidemia ; Type 2 diabetes mellitus without complications ([facility]); Gastro-esophageal reflux disease without esophagitis; Type 2 diabetes mellitus without complication, with long-term current use of insulin ([facility]) Start: 10-03-2024 End: 10-03-2024 Clinisync Result Encounter Yanet Junior NP Work Phone: [facility] External Department Unsolicited Start: 10-03-2024 End: 10-03-2024 Clinisync Result Encounter Yanet Vernon PIPE BENDER Work Phone: [facility] External Department Unsolicited Start: 10-03-2024 End: 10-03-2024 Refill Yanet Vernon PIPE BENDER Work Phone: [facility] Comment on above: Vitamin B12 deficien cy (Primary Dx); Vitamin D deficiency Start: 09-29-2024 End: 09-29-2024 Refill Yanet Vernon PIPE BENDER Work Phone: [facility] Comment on above: Coronary atheroscler osis ; Wheezing; Other hemorrhoids Start: 09-18-2024 End: 09-18-2024 Refill Yanet Munaz PIPE BENDER Work Phone: [facility] Comment on above: Type 2 diabetes sharifa itus without complication, with long-term current use of insulin (HCC) Type 2 diabetes sharifa itus without complication, with long-term current use of insulin (HCC); Type 2 diabetes mellitus with diabetic polyneuropathy, with long-term current use of insulin (HCC) Start: 09-15-2024 End: 09-15-2024 Refill Yanet Aichholz PIPE BENDER Work Phone: [facility] Comment on above: Other hemorrhoids (P rimary Dx) Start: 09-05-2024 End: 09-05-2024 Orders Only Yanet Aichholz PIPE BENDER Work Phone: [facility] Comment on above: Vitamin D deficiency (Primary Dx); Vitamin deficiency; Type 2 diabetes mellitus without complication, with long-term current use of insulin (HCC) Start: 08-31-2024 End: 09-01-2024 Refill Yanet Aichholz PIPE BENDER Work Phone: [facility] Comment on above: Type 2 diabetes sharifa itus with diabetic polyneuropathy, with long-term current use of insulin (HCC); Wheezing Start: 07-21-2024 End: 07-21-2024 Refill Yanet Aichholz PIPE BENDER Work Phone: [facility] Comment on above: Other hemorrhoids (P rimary Dx) Start: 07-19-2024 End: 07-19-2024 Telephone encounter Yanet Aichholz PIPE BENDER Work Phone: [facility] Start: 07-18-2024 End: 07-19-2024 Refill Yanet Aichholz PIPE BENDER Work Phone: [facility] Comment on above: Wheezing Start: 07-09-2024 End: 07-09-2024 Emergency department patient visit Salvadorjudy Moran Binta [facility] Start: 07-08-2024 End: 07-08-2024 Refill Yanet Aichholz PIPE BENDER Work Phone: [facility] Comment on above: Nausea Diabetes mellitus ty pe 2, insulin dependent (CMS/HCC); Mixed hyperlipidemia (CMS/HCC); Atherosclerotic heart disease of creek coronary artery without angina pectoris (CMS/HCC); Coronary atherosclerosis (CMS/HCC) Start: 06-28-2024 End: 06-28-2024 Refill Tate Martinez MD Work Phone: [facility] Comment on above: Type 2 diabetes sharifa itus without complication, with long-term current use of insulin (Primary Dx) Start: 06-22-2024 End: 06-22-2024 Refill Yanet Aichholz PIPE BENDER Work Phone: [facility] Comment on above: Nausea (Primary Dx) Start: 05-22-2024 End: 05-22-2024 Emergency department [facility] Facility[facility] Start: 05-16-2024 End: 05-16-2024 Bamboo flowsheet Juhi Orellana DO Work Phone: [facility] Start: 05-16-2024 End: 05-16-2024 Bamboo flowsheet Juhi Orellana DO Work Phone: [facility] Start: 05-16-2024 End: 05-16-2024 Patient encounter procedure Juhi Orellana DO Work Phone: [facility] Comment on above: Numbness and tinglin g (Primary Dx) Type 2 diabetes sharifa itus without complication, with long-term current use of insulin ([facility]) (Primary Dx) Start: 05-16-2024 End: 05-16-2024 ambulatory JUHI ORELLANA Not Available Start: 05-08-2024 End: 05-08-2024 Refill Yanet Aichholz PIPE BENDER Work Phone: [facility] Comment on above: Atherosclerotic hear t disease of creek coronary artery without angina pectoris (CMS/HCC) Start: 05-01-2024 End: 05-01-2024 Refill Yanet Aichholz PIPE BENDER Work Phone: [facility] Comment on above: Wheezing Start: 04-21-2024 End: 04-21-2024 Refill Yanet Aichholz PIPE BENDER Work Phone: [facility] Comment on above: Gastro-esophageal re flux disease without esophagitis Start: 04-20-2024 End: 04-20-2024 Clinisync Result Encounter Yanet Videsharsha PIPE BENDER Work Phone: [facility] External Department Unsolicited Start: 04-20-2024 End: 04-20-2024 Clinisync Result Encounter Yanet Videskanwalz PIPE BENDER Work Phone: [facility] External Department Unsolicited Start: 04-20-2024 End: 04-20-2024 Patient encounter procedure YANET Sheppard KEMALLuisaHARSHA [facility] Start: 04-20-2024 End: 04-20-2024 Refill Yanet Aicluisaholz PIPE BENDER Work Phone: [facility] Comment on above: Vitamin D deficiency (Primary Dx) Start: 04-19-2024 End: 04-19-2024 Refill Yanet Aichholz PIPE BENDER Work Phone: [facility] Comment on above: Yeast infection (Pina cheyenne Dx) Start: 04-12-2024 End: 04-13-2024 Refill Yanet Kemalhholz PIPE BENDER Work Phone: [facility] Start: 03-28-2024 End: 03-28-2024 Refill Yanet Aichholz PIPE BENDER Work Phone: [facility] Comment on above: Nausea (Primary Dx) Start: 03-24-2024 End: 03-24-2024 Telephone encounter Jorge Enriquez MD Work Phone: [facility] Start: 03-14-2024 End: 03-14-2024 Bamboo flowsheet Yanet Kemalhholz PIPE BENDER Work Phone: [facility] Start: 03-14-2024 End: 03-14-2024 Bamboo flowsheet Yanet Kemalhholz PIPE BENDER Work Phone: [facility] Start: 03-14-2024 End: 03-14-2024 ambulatory YANET AICHHOLZ Not Available Start: 03-14-2024 End: 03-14-2024 Office outpatient visit 25 minutes Yanet Junior NP Work Phone: [facility] Comment on above: Type 2 diabetes sharifa itus with diabetic polyneuropathy, with long-term current use of insulin ([facility]/HCC) (Primary Dx); Major depressive disorder, recurrent, moderate ([facility]/HCC); TRUONG on CPAP; Obstructive sleep apnea, adult; Coronary artery disease involving creek coronary artery of creek heart without angina pectoris ([facility]/HCC); Primary hypertension ([facility]); Gastroesophageal reflux disease, unspecified whether esophagitis present; Ventral hernia without obstruction or gangrene; Diabetes mellitus type 2, insulin dependent ([facility]); Class 2 severe obesity due to excess calories with serious comorbidity in adult, unspecified BMI ([facility]); Anxiety and depression ([facility]); Generalized anxiety disorder with panic attacks ([facility]); Tobacco use disorder; Mixed hyperlipidemia ([facility]); Type 2 diabetes mellitus without complications ([facility]); Encounter for screening mammogram for malignant neoplasm of breast; Diabetic neuropathy, painful ([facility]); Vitamin deficiency; Easy bruising; Atherosclerotic heart disease of creek coronary artery without angina pectoris ([facility]); Coronary atherosclerosis ([facility]); Pulmonary emphysema, unspecified emphysema type ([facility]); Type 2 diabetes mellitus with diabetic neuropathy, unspecified ([facility]) Start: 02-22-2024 End: 02-22-2024 ambulatory YANET JUNIOR Facility:[facility] Start: 02-22-2024 End: 02-22-2024 Patient encounter procedure Gunnar Clement [facility] Start: 02-16-2024 End: 02-16-2024 Refill Yanet Junior PIPE BENDER Work Phone: [facility] Comment on above: Internal hemorrhoid (Primary Dx) Start: 02-16-2024 End: 02-16-2024 Refill Yanet Junior PIPE BENDER Work Phone: [facility] Comment on above: Wheezing Start: 02-10-2024 End: 02-10-2024 Refill Yanet Aichholz PIPE BENDER Work Phone: [facility] Comment on above: Diabetes mellitus ty pe 2, insulin dependent (CMS/HCC) (Primary Dx) Start: 02-08-2024 End: 02-08-2024 Refill Yanet Aichholz PIPE BENDER Work Phone: [facility] Comment on above: Type 2 diabetes sharifa itus with diabetic polyneuropathy, with long-term current use of insulin (CMS/HCC) (Primary Dx) Start: 02-05-2024 End: 02-05-2024 Refill Yanet Aichholz PIPE BENDER Work Phone: [facility] Comment on above: Tobacco use disorder (Primary Dx) Start: 02-01-2024 End: 02-01-2024 Refill Yanet Aichholz PIPE BENDER Work Phone: [facility] Comment on above: Yeast infection (Pina cheyenne Dx) Start: 01-18-2024 End: 01-18-2024 ambulatory Gunnar Clement Facility:[facility] Start: 01-18-2024 End: 01-18-2024 Patient encounter procedure Gunnar Clement [facility] Start: 01-15-2024 End: 01-18-2024 Refill Tate Martinez MD Work Phone: [facility] Comment on above: Nausea (Primary Dx) Start: 01-13-2024 End: 01-13-2024 Patient encounter procedure YANET J AICHHOLZ [facility] Start: 01-13-2024 End: 01-13-2024 Refill Yanet Aichholz PIPE BENDER Work Phone: [facility] Start: 01-12-2024 End: 01-13-2024 Refill Yanet Aichholz PIPE BENDER Work Phone: [facility] Comment on above: Diabetes mellitus ty pe 2, insulin dependent (CMS/HCC) (Primary Dx) Start: 01-02-2024 End: 01-02-2024 Clinisync Result Encounter Yanet Junior PIPE BENDER Work Phone: [facility] External Department Unsolicited Start: 01-02-2024 End: 01-02-2024 Clinisync Result Encounter Yanet Junior PIPE BENDER Work Phone: [facility] External Department Unsolicited Start: 01-02-2024 End: 01-02-2024 ambulatory Malcom Silver Albirght Facility:[facility] Start: 01-02-2024 End: 01-02-2024 Patient encounter procedure Malcom Silver Albright [facility] Start: 12-31-2023 End: 01-30-2024 Pre-admission assessment YANET JUNIOR [facility] Start: 12-30-2023 End: 12-30-2023 Bamboo flowsheet Yanet Munaz PIPE BENDER Work Phone: [facility] Start: 12-30-2023 End: 12-30-2023 Bamboo flowsheet Yanet Munaz PIPE BENDER Work Phone: [facility] Start: 12-30-2023 End: 12-30-2023 ambulatory YANET VERNON Not Available Start: 12-30-2023 End: 12-30-2023 Office outpatient visit 25 minutes Yanet Junior PIPE BENDER Work Phone: [facility] Comment on above: Ventral hernia witho ut obstruction or gangrene (Primary Dx); Diabetes mellitus type 2, insulin dependent ([facility]HCC); Type 2 diabetes mellitus with diabetic polyneuropathy, with long-term current use of insulin ([facility]); Primary hypertension ([facility]); Coronary artery disease involving creek coronary artery of creek heart without angina pectoris ([facility]); Gastroesophageal reflux disease, unspecified whether esophagitis present; Obesity (BMI 30-39.9); Tobacco use disorder; Generalized anxiety disorder with panic attacks ([facility]/HCC) Start: 12-09-2023 End: 12-09-2023 Refill Yante Aichholz PIPE BENDER Work Phone: [facility] Comment on above: Type 2 diabetes sharifa itus without complications ([facility]/HCC) Start: 12-03-2023 End: 12-03-2023 Refill Yanet Aichholz PIPE BENDER Work Phone: [facility] Comment on above: Nausea (Primary Dx); Diabetes mellitus type 2, insulin dependent ([facility]); Yeast infection Start: 12-02-2023 End: 12-02-2023 ambulatory Semaj QUINTEROS Facility:[facility] Start: 12-02-2023 End: 12-02-2023 Patient encounter procedure Semaj QUINTEROS [facility] Start: 11-27-2023 End: 11-29-2023 Refill Yanet Aichholz PIPE BENDER Work Phone: [facility] Comment on above: Type 2 diabetes sharifa itus without complications ([facility]) Start: 11-26-2023 End: 11-27-2023 Refill Yanet Aichholz PIPE BENDER Work Phone: [facility] Comment on above: Wheezing; Pulmonary emphysema, unspecified emphysema type (CMS/HCC) Coronary artery dise ase involving creek coronary artery of creek heart without angina pectoris ([facility]) (Primary Dx); Nausea Start: 10-29-2023 End: 10-29-2023 Emergency department patient visit Janes Bowles [facility] Start: 10-20-2023 End: 10-20-2023 ambulatory TEO VILLA Not Available Start: 10-11-2023 End: 10-11-2023 Emergency department patient visit [facility] Work Phone: Start: 10-10-2023 End: 10-11-2023 Emergency department patient visit Manishopal Doug Bowles [facility] Start: 10-08-2023 End: 10-10-2023 Evaluation and management of inpatient DO Vanita Chávez Nathan Facility:[facility] Start: 10-07-2023 End: 10-07-2023 Telephone encounter Jayne [facility] Comment on above: HIM (HIM) Start: 10-06-2023 End: 10-07-2023 Evaluation and management of inpatient [facility] Start: 10-02-2023 End: 10-03-2023 Emergency department patient visit Kevin Nur [facility] Start: 10-02-2023 End: 10-02-2023 Emergency department patient visit Juan Arnold [facility] Start: 09-25-2023 End: 09-25-2023 Emergency department patient visit Kevin Nur [facility] Start: 09-19-2023 End: 09-19-2023 ambulatory YANET JUNIOR Facility:[facility] Start: 09-19-2023 End: 09-19-2023 Patient encounter procedure YANET JUNIOR [facility] Start: 08-10-2023 End: 08-10-2023 Emergency department patient visit Juan Arnold [facility] Start: 08-06-2023 ambulatory Juan Arnold Facility:[facility] Start: 07-29-2023 End: 07-30-2023 Emergency department patient visit DO Shoshanaylopal Bowles Facility:[facility] Start: 07-29-2023 End: 07-30-2023 Emergency department patient visit Janes Bowles [facility] Start: 05-28-2023 End: 05-28-2023 Emergency department patient visit Mikaela Judd Facility:[facility] Start: 05-28-2023 End: 05-28-2023 Emergency department patient visit Mikaela Judd [facility] Start: 05-11-2023 End: 05-12-2023 ambulatory YANETDoug JUNIOR Facility:[facility] Start: 04-25-2023 Refill Yanet Junior PIPE BENDER Work Phone: [facility] Comment on above: Gastroesophageal ref lux disease, unspecified whether esophagitis present (Primary Dx); Gastro-esophageal reflux disease without esophagitis; Esophageal reflux Start: 10-28-2022 End: 10-28-2022 Emergency department patient visit Gunnar Rangel Facility:[facility] Start: 10-28-2022 End: 10-28-2022 Emergency department patient visit Gunnar Rangel [facility] Start: 10-25-2022 End: 10-26-2022 ambulatory YANETDoug JUNIOR Facility:[facility] Start: 10-25-2022 End: 10-25-2022 Patient encounter procedure YANET JUNIOR [facility] Start: 10-25-2022 End: 10-25-2022 Emergency department patient visit Gunnar Rangel Facility:[facility] Start: 10-25-2022 End: 10-25-2022 Emergency department patient visit Gunnar Rangel [facility] Start: 10-02-2022 Emergency department patient visit Gunnar Rangel Facility:[facility] Start: 09-09-2022 ambulatory YANET Silver JUNIOR Facilit y:[facility] Start: 08-24-2022 End: 08-24-2022 Emergency department patient visit Kevin Nur Facility:[facility] Start: 06-30-2022 End: 06-30-2022 Patient encounter procedure YANET JUNIOR [facility] Start: 03-14-2022 End: 03-14-2022 Patient encounter procedure YANET JUNIOR [facility] Start: 03-04-2022 End: 03-04-2022 Emergency department patient visit Kevin Nur [facility] Start: 01-01-2022 End: 01-01-2022 Patient encounter procedure Marie H Allison [facility] Start: 12-27-2021 End: 12-27-2021 Emergency department patient visit Janes Camacho Wilbur [facility] Start: 11-11-2021 End: 02-10-2022 Recurring YANET JUNIOR [facility] Start: 10-10-2021 End: 10-23-2021 Pre-admission assessment Dorothy ALMANZAR [facility] Start: 10-09-2021 End: 10-10-2021 Observation Svitlana Willett [facility] Start: 08-21-2021 End: 08-22-2021 ambulatory [facility] Facility: Start: 07-12-2021 End: 07-12-2021 Patient encounter procedure YANET JUNIOR [facility] Start: 06-07-2021 End: 06-07-2021 Emergency department patient visit Mikaela Judd [facility] Start: 12-16-2020 End: 12-16-2020 ambulatory SUPERVISOR TOY ASSEMBLY YANET KEMALLuisaKANWALBrock Facility:[facility] Start: 10-29-2020 End: 10-30-2020 ambulatory SUPERVISOR TOY ASSEMBLY YANET KEMALLuisaKANWALBrock Facility:[facility] Procedures Date Procedure Procedure Detail Performing Clinician Start: 10-03-2024 [facility] CMP Yanet Aichh olz PIPE BENDER Work Phone: Start: 10-03-2024 [facility] EGFR Yanet Kemalhh olz PIPE BENDER Work Phone: Start: 05-16-2024 [facility] AMB EMG 2 EXTREMITIES Juhi Reyna DO Work Phone: Start: 05-16-2024 Nerve conduction kasi dies 11-12 studies Juhi Reyna DO Work Phone: Start: 04-20-2024 [facility] CBC W/ AUTO DIFF L river Vernon PIPE BENDER Work Phone: Start: 01-02-2024 [facility] BMP Yanet Aichh olz PIPE BENDER Work Phone: Start: 01-02-2024 [facility] EGFR Yanet Kemalhh olz PIPE BENDER Work Phone: Start: 10-06-2023 Adult depression scr eening assessment Jayne Todd Start: 08-20-2018 PCI 1 Mikaela tam Comment on above: Drug eluting stent t o the Medial LAD Start: 03-16-2018 Abdominal hysterectomy Mikaela Judd Start: 03-16-2018 Appendectomy Mikaela tam Bilateral salpingect ilya with oophorectomy Mikaela Judd x2 2 Mikaela Justin i Comment on above: [id number] Cardiac catheterization Salvador Judd Cardiac Stent Mikaela Judd Dilation and curettage Anila Judd Hernia repair x5 3 Mikaela baron Comment on above: [id number] Hysterectomy Svitlana Willett Incision AND drainage Mikaela Judd Comment on above: multiple abscess kidney stone removal Mikaela Judd Lithotripsy Mikaela Judd Plan of Treatment Date Care Activity Detail Author Start: 03-18-2026 Glaucoma screening Diabetes: R etinopathy Screening [facility] Start: 10-03-2025 Urine screening for protein Diabetes: Urine Protein Screening [facility] Start: 04-05-2025 Hemoglobin A1c measurement Diabetes: Hemoglobin A1C [facility] Start: 11-16-2024 End: 11-16-2024 Patient encounter procedure 11/16/2024 3:00 PM EDT Office Visit [facility] [address] [place] [address] Yanet Junior NP [address] [place] [phone] [facility] Start: 10-11-2024 End: 10-11-2024 Patient encounter procedure 10/11/2024 2:00 PM EDT [facility] [address] [place] [address] Yanet Junior, FADUMO [address] [place] [phone] [facility] Start: 10-08-2024 Urine screening for protein Diabetes: Urine Protein Screening [facility] Start: 10-05-2024 Adult BMI Screening Adult BMI Screen ing [facility] Start: 10-05-2024 Depression Screening Depression Scre ening [facility] Start: 10-05-2024 Tobacco Screening Tobacco Screening [facility] Start: 09-26-2024 Glaucoma screening Diabetes: R etinopathy Screening [facility] Start: 09-22-2024 End: 09-22-2024 Patient encounter procedure 09/22/2024 1:20 PM EDT Office Visit [facility] [address] [place] [phone] Yanet Junior, PIPE BENDER [address] [place] [address] [facility] Start: 09-18-2024 Urine screening for protein Diabetes: Urine Protein Screening [facility] Start: 09-06-2024 End: 09-06-2024 Patient encounter procedure 09/06/2024 1:00 PM EDT Office Visit [facility] [address] [place] [address] Yanet Junior, FADUMO [address] [place] [address] [facility] Start: 09-05-2024 End: 09-05-2025 25-hydroxyvitamin D3 [Mass/volume] in Serum or Plasma Vitamin D 25 hydroxy Lab Routine Vitamin D deficiency Expected: 09/05/2024 (Approximate), Expires: 09/05/2025 [facility] Comment on above: Expected: 09/05/2024 (Approximate), Expires: 09/05/2025 Start: 09-05-2024 End: 09-05-2025 Cobalamin (Vitamin B12) [Mass/volume] in Serum or Plasma Vitamin B12 Lab Routine Vitamin deficiency Expected: 09/05/2024 (Approximate), Expires: 09/05/2025 [facility] Comment on above: Expected: 09/05/2024 (Approximate), Expires: 09/05/2025 Start: 09-05-2024 End: 09-05-2025 Comprehensive metabolic 2000 panel - Serum or Plasma Comprehensive metabolic panel Lab Routine Type 2 diabetes mellitus without complication, with long-term current use of insulin (HCC) Expected: 09/05/2024 (Approximate), Expires: 09/05/2025 [facility] Comment on above: Expected: 09/05/2024 (Approximate), Expires: 09/05/2025 Start: 09-05-2024 End: 09-05-2025 Hemoglobin A1c/Hemoglobin.total in Blood Hemoglobin A1c Lab Routine Type 2 diabetes mellitus without complication, with long-term current use of insulin (HCC) Expected: 09/05/2024 (Approximate), Expires: 09/05/2025 [facility] Comment on above: Expected: 09/05/2024 (Approximate), Expires: 09/05/2025 Start: 09-05-2024 End: 09-05-2025 Microalbumin/Creatinine panel in random Urine Microalbumin / creatinine, urine ratio Lab Routine Type 2 diabetes mellitus without complication, with long-term current use of insulin (HCC) Expected: 09/05/2024 (Approximate), Expires: 09/05/2025 [facility] Work Phone: Comment on above: Expected: 09/05/2024 (Approximate), Expires: 09/05/2025 Start: 09-05-2024 End: 09-05-2025 Urinalysis complete panel - Urine Urinalysis with reflex microscopic (clean catch) Lab Routine Type 2 diabetes mellitus without complication, with long-term current use of insulin (HCC) Expected: 09/05/2024 (Approximate), Expires: 09/05/2025 [facility] Comment on above: Expected: 09/05/2024 (Approximate), Expires: 09/05/2025 Start: 07-02-2024 Hemoglobin A1c measurement Diabetes: Hemoglobin A1C [facility] Start: 05-18-2024 End: 05-18-2024 Patient encounter procedure 05/18/2024 11:00 AM EST Procedure Visit [facility] [address] [place] [address] Juhi Orellana DO [address] [place] [address] [facility] Start: 05-17-2024 End: 05-17-2024 Patient encounter procedure 05/17/2024 2:20 PM EST Office Visit [facility] [address] [place] [phone] Yanet Junior NP [address] [place] [address] [facility] Start: 05-16-2024 End: 05-16-2024 Patient encounter procedure [facility] BR[facility]O Comment on above: Arrived Start: 04-26-2024 End: 04-26-2024 Patient encounter procedure 04/26/2024 2:20 PM EST Office Visit [facility] [address] [place] [address] Yanet Junior, PIPE BENDER [address] [place] [address] [facility] Start: 03-21-2024 Hemoglobin A1c measurement Diabetes: Hemoglobin A1C [facility] [facility] Start: 03-14-2024 End: 03-14-2025 25-hydroxyvitamin D3 [Mass/volume] in Serum or Plasma Vitamin D 25 hydroxy Lab Routine Vitamin deficiency Expected: 03/14/2024 (Approximate), Expires: 03/14/2025 [facility] Comment on above: Expected: 03/14/2024 (Approximate), Expires: 03/14/2025 Start: 03-14-2024 End: 03-14-2025 aPTT in Blood by Coagulation assay APTT Lab Routine Easy bruising Expected: 03/14/2024 (Approximate), Expires: 03/14/2025 [facility] Comment on above: Expected: 03/14/2024 (Approximate), Expires: 03/14/2025 Start: 03-14-2024 End: 03-14-2025 CBC W Auto Differential panel - Blood CBC auto differential Lab Routine Type 2 diabetes mellitus with diabetic polyneuropathy, with long-term current use of insulin ([facility]) Gastroesophageal reflux disease, unspecified whether esophagitis present Expected: 03/14/2024 (Approximate), Expires: 03/14/2025 [facility] Comment on above: Expected: 03/14/2024 (Approximate), Expires: 03/14/2025 Start: 03-14-2024 End: 03-14-2025 Cobalamin (Vitamin B12) [Mass/volume] in Serum or Plasma Vitamin B12 Lab Routine Vitamin deficiency Expected: 03/14/2024 (Approximate), Expires: 03/14/2025 [facility] Comment on above: Expected: 03/14/2024 (Approximate), Expires: 03/14/2025 Start: 03-14-2024 End: 03-14-2025 Comprehensive metabolic 2000 panel - Serum or Plasma Comprehensive metabolic panel Lab Routine Type 2 diabetes mellitus with diabetic polyneuropathy, with long-term current use of insulin (CMS/HCC) Expected: 03/14/2024 (Approximate), Expires: 03/14/2025 [facility] Comment on above: Expected: 03/14/2024 (Approximate), Expires: 03/14/2025 Start: 03-14-2024 End: 03-14-2025 EMG AND NERVE CONDUCTION STUDY EMG AND NERVE CONDUCTION STUDY Neurology Routine Type 2 diabetes mellitus with diabetic polyneuropathy, with long-term current use of insulin (CMS/HCC) Expected: 03/14/2024 (Approximate), Expires: 03/14/2025 [facility] Comment on above: Expected: 03/14/2024 (Approximate), Expires: 03/14/2025 Start: 03-14-2024 End: 03-14-2025 Lipid 1996 panel - Serum or Plasma Lipid panel Lab Routine Mixed hyperlipidemia (CMS/HCC) Expected: 03/14/2024 (Approximate), Expires: 03/14/2025 [facility] Comment on above: Expected: 03/14/2024 (Approximate), Expires: 03/14/2025 Start: 03-14-2024 End: 05-13-2025 MG Breast - bilateral Screening Bilateral screening mammogram Imaging Routine Encounter for screening mammogram for malignant neoplasm of breast Expected: 03/14/2024 (Approximate), Expires: 05/13/2025 [facility] Work Phone: Comment on above: Expected: 03/14/2024 (Approximate), Expires: 05/13/2025 Start: 03-14-2024 End: 03-14-2025 Prothrombin time (PT) in Blood by Coagulation assay Protime-INR Lab Routine Easy bruising Expected: 03/14/2024 (Approximate), Expires: 03/14/2025 [facility] Comment on above: Expected: 03/14/2024 (Approximate), Expires: 03/14/2025 Start: 03-14-2024 End: 03-14-2025 Thyrotropin [Units/volume] in Serum or Plasma TSH Lab Routine Anxiety and depression (CMS/HCC) Expected: 03/14/2024 (Approximate), Expires: 03/14/2025 [facility] Comment on above: Expected: 03/14/2024 (Approximate), Expires: 03/14/2025 Start: 03-14-2024 End: 03-14-2025 Thyroxine (T4) free [Mass/volume] in Serum or Plasma T4, free Lab Routine Anxiety and depression (CMS/HCC) Expected: 03/14/2024 (Approximate), Expires: 03/14/2025 [facility] Comment on above: Expected: 03/14/2024 (Approximate), Expires: 03/14/2025 Start: 02-15-2024 End: 02-15-2024 Patient encounter procedure 02/15/2024 1:40 PM EST Office Visit [facility] [address] [place] [phone] Yanet Junior, PIPE BENDER [address] [place] [id number] [facility] Start: 01-28-2024 End: 01-28-2024 Patient encounter procedure 01/28/2024 11:00 AM EST Office Visit [facility] [address] [place] [address] Yanet Junior, PIPE B[employer]ER [address] [place] [address] [facility] Start: 12-30-2023 End: 12-30-2023 Patient encounter procedure 12/30/2023 2:20 PM EDT Office Visit [facility] [address] [place] [id number] Teo Villa DO [address] [address] [facility] Start: 12-30-2023 End: 10-16-2025 Basic metabolic 1998 panel - Serum or Plasma Basic metabolic panel Lab Routine Diabetes mellitus type 2, insulin dependent ([facility]/HCC) Expected: 12/30/2023 (Approximate), Expires: 12/29/2024 [facility] Work Phone: Comment on above: Expected: 12/30/2023 (Approximate), Expires: 12/29/2024 Start: 12-30-2023 End: 12-29-2024 CT Abdomen and Pelvis W contrast IV CT abdomen pelvis w IV contrast Imaging Routine Ventral hernia without obstruction or gangrene Expected: 12/30/2023 (Approximate), Expires: 12/29/2024 [facility] Comment on above: Expected: 12/30/2023 (Approximate), Expires: 12/29/2024 Start: 12-30-2023 End: 12-29-2024 Hemoglobin A1c/Hemoglobin.total in Blood Hemoglobin A1c Lab Routine Diabetes mellitus type 2, insulin dependent ([facility]/HCC) Expected: 12/30/2023 (Approximate), Expires: 12/29/2024 [facility] Comment on above: Expected: 12/30/2023 (Approximate), Expires: 12/29/2024 Start: 11-15-2023 Influenza vaccination Influenza Vacc ine [facility] Start: 07-01-2023 Urine screening for protein Diabetes: Urine Protein Screening [facility] Start: 11-14-2022 Influenza vaccination Influenza Vacc ine (#1) [facility] Start: 2021 Screening for malign ant neoplasm of breast Mammogram [facility] Start: 2000 DTaP,Tdap and Td Vaccines (1 - Tdap) DTaP,Tdap and Td Vaccines (1 - Tdap) [facility] Start: 10-16-1999 Adult BMI Follow Up Plan Adult BMI Follow Up Plan [facility] Start: 1981 Hemoglobin A1c measurement Diabetes: Hemoglobin A1C [facility] Patient Education Postoperative Pain (DC) Vulvar pain [facility] Work Phone: Patient referral [facility] Work Phone: Immunizations Immunization Date Immunization Notes Care Provider Fa cility NEGATED: Highlighted row has not occurred!02-21-2021 influenza virus vaccine, unspecified formulation Astrit Hajdari [facility] Payers Date Payer Category Payer Unknown [id number] 2023 Self-pay [id number] 2022 Private Health Insurance [facility] [id number] 2022 Unknown [id number] 2022 Medicaid [id number]. [id number] 1981 Unknown [id number] 2.16840.1.003356.3.579.2. 593 1981 Unknown [id number] 2.16840.1.245117.3.579.2. 593 1981 Unknown [id number] 2.16840.1.991197.3.579.2. 593 1981 Unknown [id number] 2.16.840.1.471768.3.579.2. 727 1981 Unknown [id number] 2.16.840.1.109854.3.579.2. 727 1981 Unknown [id number] 2.16840.1.775003.3.579.2. 727 1981 Unknown [id number] 2.16840.1.134829.3.579.2. 727 1981 Unknown [id number] 2.16.840.1.535795.3.579.2 1981 Unknown [id number] 2.16840.1.780703.3.579.2 1981 Unknown [id number] 2.16.840.1.677969.3.579.2 1981 Unknown [id number] 2.840.1.840090.3.579.2 1981 Unknown [id number] 2.840.1.888042.3.579.2 1981 Unknown [id number] 2.840.1.455637.3.579.2 1981 Unknown [id number] 2.840.1.909017.3.579.2 1981 Unknown [id number] 2.840.1.806345.3.579.2 1981 Unknown [id number] 2.840.1.425843.3.579.2 1981 Unknown [id number] 2.840.1.025965.3.579.2. 1285 1981 Unknown [id number] 2.840.1.601142.3.579.2 1981 Unknown [id number] 2.840.1.988923.3.579.2 1981 Unknown [id number] 2.840.1.066909.3.579.2 1981 Unknown [id number] 2.840.1.912783.3.579.2 1981 Unknown [id number] 2.16840.1.090209.3.579.2 1981 Unknown [id number] 2.840.1.870850.3.579.2 1981 Unknown [id number] .840.1.518906.3.579.2 1981 Unknown [id number] .840.1.671654.3.579.2 1981 Unknown [id number] 2.840.1.806823.3.579.2 1981 Unknown [id number] .840.1.523684.3.579.2 1981 Unknown [id number] .840.1.996656.3.579.2 1981 Unknown [id number] 05.01.830.1.511497.3.579. 1981 Unknown [id number] 05.01.830.1.411545.3.579. 1981 Unknown [id number] 05.01.830.1.551506.3.579. 1981 Unknown [id number] .1.635204.3.579. 1981 Unknown [id number] 05.01.830.1.610759.3.579.2 1981 Unknown [id number] 840.1.933209.3.579.2 1981 Unknown [id number] 840.1.095140.3.579.2 1981 Unknown [id number] 840.1.483662.3.579.2 1981 Unknown [id number] 840.1.277683.3.579.2 1981 Unknown [id number] 840.1.046953.3.579.2 1981 Unknown [id number] 840.1.790226.3.579.2. 727 1981 Unknown [id number] 2.16.840.1.833393.3.579.2. 9 1981 Unknown [id number] 2.16.840.1.004138.3.579.2. 9 1981 Unknown [id number] 2.16.840.1.060452.3.579.2. 1258 1981 Unknown [id number] 2.16.840.1.508734.3.579.2. 1258 1981 Unknown [id number] 2.16.840.1.777554.3.579.2. 1258 1981 Unknown [id number] 2.16.840.1.499893.3.579.2. 727 1981 Unknown [id number] 2.16.840.1.245242.3.579.2. 1981 Unknown [id number] 2.16.840.1.315237.3.579.2. 727 1959 Unknown [id number] Unknown [id number] 2.16.840.1.039158.3.579.2. 531 Social History Date Type Detail Facility Start: 09-06-2019 End: 02-21-2021 Tobacco smoking status Ex-smoker (finding) [facility] Tobacco smoking status Never [facility] Start: 03-15-2023 End: 10-11-2024 Sex Assigned At Female [facility] Start: 03-15-2023 Tobacco smoking status [place] Smokes tobacco daily [facility] End: 08-20-2018 History of tobacco use Cigarette Smoker [facility] Start: 03-15-2023 End: 10-11-2024 Cigarettes smoked current (pack per day) - Reported 0.5 [facility] Start: 03-17-2023 End: 10-11-2024 Alcohol intake Ex-drinker (finding) [facility] Start: 03-15-2023 Alcohol Comment caffeine more than 4 cups per day [facility] Start: 1981 Sex Assigned At Not on file [facility] Start: 1981 Sex Assigned At Female F [facility] End: 08-20-2018 History of tobacco use Current smoker [facility] Start: 09-06-2019 Tobacco use and exposure Smokeless tobacco non-user [facility] Has the [employer], gas, oil, or water [employer] threatened to shut off services in your home in past 12Mo No [facility] How often to you hav e a drink containing alcohol? Monthly or less [facility] How many standard drinks containing alcohol do you have on a typical day? 1 or 2 [facility] How often do you hav e 6 or more drinks on 1 occasion? Never [facility] Tobacco Current vaping o r e-cigarette use Smokeless Tobacco Use:. [facility] Tobacco smoking status [facility] Start: 06-27-2009 Sex Female (finding) [facility] Start: 10-17-2024 Tobacco smoking status Light tobacco smoker (finding) [facility] NEGATED: Highlighted row [facility] Medical Equipment Procedure Code Equipment Code Equipment Origin al Text Equipment Identifier Dates Start: 02-21-2021 1 anna, Rectal, B ID, 30 gram, Refill(s) 0, [id number], 162, cm, 02/21/21 12:40:00 EST, Height/Length Dosing, 128.3, kg, 02/21/21 12:40:00 EST, Weight Dosing Start: 02-21-2021 B-D ULTRA-FINE 3 3 LANCETS [facility] [id number] Inject under the skin if needed. Use as instructed [id number] each in the morning and 1 each before bedtime. [id number] Start: 12-09-2023 End: 03-18-2024 1 each by In Vit ro route in the morning and 1 each before bedtime. [id number] Start: 12-09-2023 End: 03-18-2024 Twice a day. Use as instructed [id number] Start: 01-13-2024 End: 01-12-2025 1 each in the morning and 1 each before bedtime. [id number] Start: 10-14-2023 End: 01-22-2024 1 each by In Vit ro route in the morning and 1 each before bedtime. [id number] Start: 09-22-2023 End: 12-31-2023 Twice a day use. Use as instructed [id number] Start: 05-16-2024 End: 05-16-2025 Goals Date Patient Goal Desired Activity /State Personal health goal Comment on above: Formatting of this n ote might be different from the original. Evaluation of progress towards goal: Patient plans to discharge home and resume services with [facility] Functional Status Date Assessment Result Facility 07-09-2024 Functional Status N/A [facility] 10-29-2023 Functional Status N/A [facility] 10-10-2023 Functional Status N/A [facility] 10-08-2023 Functional Status N/A [facility] 10-02-2023 Functional Status N/A [facility] 10-02-2023 Functional Status N/A [facility] 09-25-2023 Functional Status N/A [facility] 08-10-2023 Functional Status N/A [facility] 07-29-2023 Functional Status N/A [facility] 05-28-2023 Functional Status N/A [facility] 10-28-2022 Functional Status N/A [facility] 10-25-2022 Functional Status N/A [facility] 03-04-2022 Functional Status N/A [facility] 12-27-2021 Functional Status N/A [facility] 10-09-2021 Functional Status N/A [facility] 10-09-2021 Functional Status [facility] Clinical Notes 06-07-2021 to 10-17-2024 Magnus Junior NP - 10/11/2024 3:53 PM Anna Junior NP - 10/11/2024 3:53 PM Anna Junior NP - 10/11/2024 3:52 PM Anna Junior NP - 10/11/2024 3:52 PM EDTPatient Instructions Note Date & Type Note Facility 10-17-2024 Evaluation + Plan note Future Scheduled TestsNM Gastric Emptying Study 10/17/24 [facility] 10-11-2024 History of Present illness Narrative Associated Problem(s): Hyperlipidemia Statin therapy Check labs yearly and prn dose changes Associated Problem(s): Type 2 diabetes mellitus without complications [...] metformin, statin A1c 6.0% 10/03/24, 5.9% 01/02/24 Associated Problem(s): GERD (gastroesophageal reflux disease) Recommendations: freq small meals, nothing to eat or drink at least 2 hours prior to bed, limit caffeine, alcohol, as well as spicy foods Meds to limit or avoid if possible: NSAIDS Elevate HOB if possible Currently taking Omeprazole Associated Problem(s): Hemorrhoids Pt refuses to have rectal exam, I did explain that I cannot tel without an exam, if hemorrhoid, mass etc I will give one more time of cream and she must go see GI Associated Problem(s): Abdominal pain Non complaint with fu with GI Refer to GI Pt would like to discuss frequently dehydration=constipation=recurrin g hemorrhoid Otc cream is not working Pt has been feeling weakness, foggy, dizzy, lightheaded, fatigue for a week now Pt is having hard stone Bms the last formed bowel movement was about 5 days Pt states last night she was drenched in sweat and nauseous Images from the original note were not included. Tish Vargas is a 43 y.o. female presents with [...] has type 2 diabetes mellitus. Her disease course has been stable. Hypoglycemia symptoms include dizziness and nervousness/anxiousness. Associated symptoms include fatigue. Pertinent negatives for diabetes include no blurred vision, no chest pain, no foot paresthesias, no polydipsia, no polyphagia and no polyuria. There are no hypoglycemic complications. Symptoms are stable. Diabetic complications include heart disease and peripheral neuropathy. Pertinent negatives for diabetic complications include no PVD. [...] significant improvement. There are no compliance problems. Hypertensive end-organ damage includes CAD/VT. There is no history of heart failure [...] inhaler 2 puffs, Inhalation, 2 times daily, Rinse mouth with water after use to reduce aftertaste and incidence of candidiasis. Do not swallow. busPIRone (BUSPAR) 30 mg, 2 times daily cholecalciferol (NATURAL VITAMIN D-3) 5,000 Units, Oral, Daily clopidogrel (PLAVIX) 75 mg, Oral, Daily Continuous Glucose [employer] (BUKAStyle Anny 2 [place]) device 1 each, Does not apply, Daily Continuous Glucose Sensor (FreeStyle Anny 2 Sensor) [facility] USE DIRECTED and change EVERY 14 days [...] insulin dependent (HCC) 05/19/2023 Diabetic neuropathy, painful ([facility]) 05/25/2023 Discharge from left nipple 05/25/2023 Drug abuse ([facility]) 05/25/2023 Prescription abuse Dyspareunia, female 05/25/2023 Fatty liver 05/25/2023 Generalized anxiety disorder with panic attacks 05/25/2023 GERD (gastroesophageal reflux disease) Hot flashes due to surgical menopause 05/25/2023 Hyperlipidemia 03/17/2023 Hypertension 05/25/2023 Insomnia 05/25/2023 Internal hemorrhoid 05/25/2023 VT (myocardial infarction) ([facility]) 05/25/2023 Obstructive sleep apnea, adult 05/25/2023 Paresthesia [...] Size: Large adult) Pulse 87 Temp 99 F (Temporal) Resp 18 Wt 241 lb 12.8 oz SpO2 97% BMI 40.86 kg/m OB Status Hysterectomy Smoking Status Every Day BSA 2.24 m Physical Exam Vitals and nursing note reviewed. [...] Other Visit Diagnoses Atherosclerotic heart disease of creek coronary artery without angina pectoris Relevant Medications [...] MG disintegrating tablet documented in this encounter [facility] 10-11-2024 Instructions Yanet Junior NP - 10/11/2024 2:00 PM EDT Lower the dose of metoprolol: 25mg tablet: 1/2 pill twice a day Phone number for GI in Dr Jeremias Grajeda [phone] documented in this encounter [facility] 07-19-2024 Telephone encounter Note Please contact pt, not sure if she still needs a refill on zofran or not, looks like she may have went to urgent care in [place]. Also she needs scheduled an appt. I see that she has cancelled the last several appts with me. She has numerous health issues that howard need to be followed up on every 3 months. And it is important that she keep those scheduled appts. Please get her scheduled [place] [facility] 07-19-2024 Miscellaneous Notes Please contact pt, not sure if she still needs a refill on zofran or not, looks like she may have went to urgent care in [place]. Also she needs scheduled an appt. I see that she has cancelled the last several appts with me. She has numerous health issues that howard need to be followed up on every 3 months. And it is important that she keep those scheduled appts. Please get her scheduled [place] documented in this encounter [facility] 07-09-2024 Hospital Discharge instructions Patient Education 07/09/2024 14:01:26 Panic Attack Panic Attack A panic attack is a sudden episode of severe anxiety, fear, or discomfort that causes physical and emotional symptoms. A panic attack may be in response to something frightening, or it may occur for no known reason. Symptoms of a panic attack can be similar to symptoms of a heart attack or stroke. It is important to see your health care provider when you have a panic attack so that these conditions can be ruled out. What are the causes? A panic attack may be caused by: An extreme, life-threatening situation, such as a war or natural disaster. An anxiety disorder, such as post-traumatic stress disorder. Depression. Panic disorder. Certain medical conditions, including heart problems, neurological conditions, and infections. Other causes may include: Certain mxwr-yxf-kyhdjrc and prescription medicines. Supplements that increase anxiety. Illegal drugs that increase heart rate and blood pressure, such as methamphetamine. What increases the risk? You are more likely to develop this condition if: You have another mental health condition. You use alcohol, illegal drugs, or other substances. You are under extreme stress. A life event is causing increased feelings of anxiety and depression. What are the signs or symptoms? A panic attack starts suddenly, usually lasts 5 10 minutes, and occurs with one or more of the following: A pounding heart, or a feeling that your heart is beating irregularly or faster than normal (palpitations). Sweating, trembling, or shaking. Shortness of breath, feeling smothered, or feeling choked. Chest pain or discomfort. Nausea or a strange feeling in your stomach. Dizziness, feeling light-headed, or feeling like you might faint. Other symptoms may include: Chills or hot flashes. Numbness or tingling in your lips, hands, or feet. Feeling confused, or feeling that you are not yourself. Fear of losing control or of being emotionally unstable, or fear of dying. How is this diagnosed? A panic attack is diagnosed with an assessment by your health care provider. During the assessment, your health care provider will ask questions about: Your history of anxiety, depression, and panic attacks. Your medical history. Whether you drink alcohol, use drugs, take supplements, or take medicines. Be honest about your substance use. Your health care provider may also: Order blood tests or other kinds of tests to rule out serious medical conditions. Refer you to a mental health professional for further evaluation. How is this treated? A panic attack is a symptom of another condition. Treatment depends on the cause of the panic attack. If the cause is a medical problem, your health care provider will treat that problem or refer you to a specialist. If the cause is emotional, you may be given anti-anxiety medicines or referred to a counselor. Anti-anxiety medicines may reduce how often attacks happen, reduce how severe the attacks are, and lower anxiety. If the cause is a medicine, your health care provider may tell you to stop the medicine, change your dose, or take a different medicine. If the cause is an illegal drug, treatment may involve letting the drug wear off and taking medicine to help the drug leave your body or to stop its effects. Attacks caused by heavy drug use may continue even if you stop using the drug. Most panic attacks go away with treatment of the underlying problem. If you have panic attacks often, you may have a condition called panic disorder. Follow these instructions at home: Alcohol use Do not drink alcohol if: ?Your health care provider tells you not to drink. ?You are , may be , or are planning to become . If you drink alcohol: ?Limit how much you have to: ?0 1 drink a day for women. ?0 2 drinks a day for men. ?Know how much alcohol is in your drink. In the [place] one drink equals one 12 oz bottle of beer (355 mL), one 5 oz glass of wine (148 mL), or one 1 oz glass of hard liquor (44 mL). General instructions Take jknn-hdf-vbjoyvw and prescription medicines only as told by your health care provider. If you feel anxious, limit your caffeine intake. Take good care of your physical and mental health by: ?Eating a balanced diet that includes plenty of fresh fruits and vegetables, whole grains, lean meats, and low-fat dairy. ?Getting plenty of rest. Try to get 7 8 hours of uninterrupted sleep each night. ?Exercising regularly. Try to get 30 minutes of physical activity at least 5 days a week. Do not use any products that contain nicotine or tobacco. These products include cigarettes, chewing tobacco, and vaping devices, such as e-cigarettes. If you need help quitting, ask your health care provider. Keep all follow-up visits. This is important. Panic attacks may have underlying physical or emotional problems that take time to accurately diagnose. Where to find more information Substance Abuse and Mental Health Services Administration (SAMHSA): samhsa.gov National [place] of Mental Health ([facility]): www.nimh.nih.gov Contact a health care provider if: Your symptoms do not improve, or they get worse. You are not able to take your medicine as prescribed because of side effects. Get help right away if: You have thoughts about hurting yourself or others. Get help right away if you feel like you may hurt yourself or others, or have thoughts about taking your own life. Go to your nearest emergency room or: Call 911. Call the National Suicide Prevention Lifeline at or 514. This is open 24 hours a day. Text the Crisis Text Line at 303869. Summary A panic attack is a sudden episode of severe anxiety, fear, or discomfort that causes physical and emotional symptoms. Always see a health care provider to have the reasons for the panic attack correctly diagnosed. If your panic attack was caused by a physical problem, follow your health care provider's suggestions for medicine, referral to a specialist, and lifestyle changes. If your panic attack was caused by an emotional problem, follow through with counseling from a qualified mental health specialist. If you feel like you may hurt yourself or others, call 911 and get help right away. This information is not intended to replace advice given to you by your health care provider. Make sure you discuss any questions you have with your health care provider. Document Revised: 10/10/2021 Document Reviewed: 10/10/2021 [employer] Patient Education 2023 [employer] Index 07/09/2024 14:01:26 Weakness Weakness Weakness is a lack of strength. You may feel weak all over your body (generalized), or you may feel weak in one part of your body (focal). Common causes of weakness include: Infection and disorders of the body's defense system (immune system). Physical exhaustion. Internal bleeding or other blood loss that results in a lack of red blood cells (anemia). Dehydration. An imbalance in mineral (electrolyte) levels, such as potassium. Chronic kidney or liver disease. Cancer. Other causes include: Some medicines or cancer treatment. Stress, anxiety, or depression. Heart disease, circulation problems, or stroke. Nervous system disorders. Thyroid disorders. Loss of muscle strength because of age or inactivity. Poor sleep quality or sleep disorders. The cause of your weakness may not be known. Some causes of weakness can be serious, so it is important to see your health care provider. Follow these instructions at home: Activity Rest as needed. Try to get enough sleep. Most adults need 7 8 hours of quality sleep each night. Talk to your health care provider about how much sleep you need. Do exercises, such as arm curls and leg raises, for 30 minutes at least 2 days a week or as told by your health care provider. This helps build muscle strength. Consider working with a physical therapist or horse trainer who can develop an exercise plan to help you gain muscle strength. General instructions Take vwsf-opa-qushabh and prescription medicines only as told by your health care provider. Eat a healthy, well-balanced diet. This includes: ?Proteins to build muscles, such as lean meats and fish. ?Fresh fruits and vegetables. ?Carbohydrates to boost energy, such as whole grains. Drink enough fluid to keep your urine pale yellow. Keep all follow-up visits. This is important. Contact a health care provider if: Your weakness does not improve or gets worse. Your weakness affects your ability to think clearly. Your weakness affects your ability to do your normal daily activities. Get help right away if: You develop sudden weakness, especially on one side of your face or body. You have chest pain. You have trouble breathing or shortness of breath. You have problems with your vision. You have trouble talking or swallowing. You have trouble standing or walking. You are light-headed or lose consciousness. These symptoms may be an emergency. Get help right away. Call 911. Do not wait to see if the symptoms will go away. Do not drive yourself to the hospital. Summary Weakness is a lack of strength. You may feel weak all over your body or just in one specific part of your body. Weakness can be caused by a variety of things. In some cases, the cause may be unknown. Rest as needed, and try to get enough sleep. Most adults need 7 8 hours of quality sleep each night. Eat a healthy, well-balanced diet. This information is not intended to replace advice given to you by your health care provider. Make sure you discuss any questions you have with your health care provider. Document Revised: 02/02/2022 Document Reviewed: 02/02/2022 [employer] Patient Education 2023 [employer]. 07/09/2024 14:01:26 Nonspecific Chest Pain, Adult Nonspecific Chest Pain, Adult Chest pain is an uncomfortable, tight, or painful feeling in the chest. The pain can feel like a crushing, aching, or squeezing pressure. A person can feel a burning or tingling sensation. Chest pain can also be felt in your back, neck, jaw, shoulder, or arm. This pain can be worse when you move, sneeze, or take a deep breath. Chest pain can be caused by a condition that is life-threatening. This must be treated right away. It can also be caused [...] Pneumonia or bronchitis. Shingles infection (varicella-zoster virus). Your chest pain may come and go. It may also be constant. Your health care provider will do tests and other studies to find the cause of your pain. Treatment will depend on the cause of your chest pain. Follow these instructions at home: Medicines Take alge-pvi-vyvzrvr and prescription medicines only as told by your health care provider. If you were prescribed an antibiotic medicine, take it as told by your health care provider. Do not stop taking the antibiotic even if you start to feel better. Activity Avoid any activities that cause chest pain. Do not lift anything that is heavier than 10 lb (4.5 kg), or the limit that you are told, until your health care provider says that it is safe. Rest as directed by your health care provider. Return to your normal activities only as told by your health care provider. Ask your health care provider what activities are safe for you. Lifestyle Do not use any products that contain nicotine or tobacco, such as cigarettes, e-cigarettes, and chewing tobacco. If you need help quitting, ask your health care provider. Do not drink alcohol. Make healthy lifestyle changes as recommended. These may include: ?Getting regular exercise. Ask your health care provider to suggest some exercises that are safe for you. ?Eating a heart-healthy diet. This includes plenty of fresh fruits and vegetables, whole grains, low-fat (lean) protein, and low-fat dairy products. A dietitian can help you find healthy eating options. ?Maintaining a healthy weight. ?Managing any other health conditions you may have, such as high blood pressure (hypertension) or diabetes. ?Reducing stress, such as with yoga or relaxation techniques. General instructions Pay attention to any changes in your symptoms. It is up to you to get the results of any tests that were done. Ask your health care provider, or the department that is doing the tests, when your results will be ready. Keep all follow-up visits as told by your health care provider. This is important. You may be asked to go for further testing if your chest pain does not go away. Contact a health care provider if: Your chest pain does not go away. You feel depressed. You have a fever. You notice changes in your symptoms or develop new symptoms. Get help right away if: Your chest [...] caused by something that is not life-threatening. Your health care provider may do lab [...] with your health care provider. Document Revised: 01/15/2023 Document Reviewed: 01/15/2023 [employer] Patient Education 2023 [employer]. Follow Up Care 07/09/2024 11:32:08 With:YANET JUNIOR Address: [address] [place] [address] [phone] Business (1) When:07/12/2024 13:36:46 Comments:Follow-up with your primary doctor as discussed. Return to the emergency room if your symptoms recur or any new symptoms. [facility] 07-09-2024 Note ED Patient Education Note Mental and Behavioral Health Panic Attack A panic attack is a sudden episode of severe anxiety, fear, or discomfort that causes physical and emotional symptoms. A panic attack may be in response to something frightening, or it may occur for no known reason. Symptoms of a panic attack can be similar to symptoms of a heart attack or stroke. It is important to see your health care provider when you have a panic attack so that these conditions can be ruled out. What are the causes? A panic attack may be caused by: ??? An extreme, life-threatening situation, such as a war or natural disaster. ??? An anxiety disorder, such as post-traumatic stress disorder. ??? Depression. ??? Panic disorder. ??? Certain medical conditions, including heart problems, neurological conditions, and infections. Other causes may include: ??? Certain jxzw-mxp-zhtxajd and prescription medicines. ??? Supplements that increase anxiety. ??? Illegal drugs that increase heart rate and blood pressure, such as methamphetamine. What increases the risk? You are more likely to develop this condition if: ??? You have another mental health condition. ??? You use alcohol, illegal drugs, or other substances. ??? You are under extreme stress. ??? A life event is causing increased feelings of anxiety and depression. What are the signs or symptoms? A panic attack starts suddenly, usually lasts 5?10 minutes, and occurs with one or more of the following: ??? A pounding heart, or a feeling that your heart is beating irregularly or faster than normal (palpitations). ??? Sweating, trembling, or shaking. ??? Shortness of breath, feeling smothered, or feeling choked. ??? Chest pain or discomfort. ??? Nausea or a strange feeling in your stomach. ??? Dizziness, feeling light-headed, or feeling like you might faint. Other symptoms may include: ??? Chills or hot flashes. ??? Numbness or tingling in your lips, hands, or feet. ??? Feeling confused, or feeling that you are not yourself. ??? Fear of losing control or of being emotionally unstable, or fear of dying. How is this diagnosed? A panic attack is diagnosed with an assessment by your health care provider. During the assessment, your health care provider will ask questions about: ??? Your history of anxiety, depression, and panic attacks. ??? Your medical history. ??? Whether you drink alcohol, use drugs, take supplements, or take medicines. Be honest about your substance use. Your health care provider may also: ??? Order blood tests or other kinds of tests to rule out serious medical conditions. ??? Refer you to a mental health professional for further evaluation. How is this treated? A panic attack is a symptom of another condition. Treatment depends on the cause of the panic attack. ??? If the cause is a medical problem, your health care provider will treat that problem or refer you to a specialist. ??? If the cause is emotional, you may be given anti-anxiety medicines or referred to a counselor. Anti-anxiety medicines may reduce how often attacks happen, reduce how severe the attacks are, and lower anxiety. ??? If the cause is a medicine, your health care provider may tell you to stop the medicine, change your dose, or take a different medicine. ??? If the cause is an illegal drug, treatment may involve letting the drug wear off and taking medicine to help the drug leave your body or to stop its effects. Attacks caused by heavy drug use may continue even if you stop using the drug. Most panic attacks go away with treatment of the underlying problem. If you have panic attacks often, you may have a condition called panic disorder. Follow these instructions at home: Alcohol use ??? Do not drink alcohol if: ? Your health care provider tells you not to drink. ? You are , may be , or are planning to become . ??? If you drink alcohol: ? Limit how much you have to: ? 0?1 drink a day for women. ? 0?2 drinks a day for men. ? Know how much alcohol is in your drink. In the [place] one drink equals one 12 oz bottle of beer (355 mL), one 5 oz glass of wine (148 mL), or one 1? oz glass of hard liquor (44 mL). General instructions ??? Take gtgp-dkm-draivur and prescription medicines only as told by your health care provider. ??? If you feel anxious, limit your caffeine intake. ??? Take good care of your physical and mental health by: ? Eating a balanced diet that includes plenty of fresh fruits and vegetables, whole grains, lean meats, and low-fat dairy. ? Getting plenty of rest. Try to get 7?8 hours of uninterrupted sleep each night. ? Exercising regularly. Try to get 30 minutes of physical activity at least 5 days a week. ??? Do not use any products that contain nicotine or tobacco. These products include cigarettes, chewing tobacco, and vaping devices, such as e-cigarettes. If you need help quitting, ask (more content not included)... [facility] 07-09-2024 Evaluation + Plan note Extrac sandro from: Title:ED Note Author:Mikaela Judd M.D. te:07/09/24 1. Chest pain (R07.9: Chest pain, unspecified) 2. Weakness (R53.1: Weakness) 3. Panic attack (F41.0: Panic disorder [episodic paroxysmal anxiety]) Orders: lorazepam, 1 mg = 1 tab(s), Tab, Oral, Once, Stop date 07/09/24 11:50:00 EDT, STAT, Start date 07/09/24 11:50:00 EDT, 07/09/24 11:50:00 EDT B-Type Natriuretic Peptide Basic Metabolic Panel CBC w/ Auto Diff ED Cardiac Monitoring eGFR Extra SST Tube Hepatic Function Panel Magnesium Level Oxygen Saturation Oxygen Therapy PT & PTT Saline Lock Insert Troponin 0 Hr. Troponin 1 Hr. Troponin 3 Hr. TSH With T4fr Reflex UA with Cult Rflx XR Chest Single View Future Scheduled Tests Radiology* XR Abdomen 1 View 08/06/23 [facility] 03-09-2025 NoteED Patient Education Note Gastroenterology Nausea, Adult Nausea is feeling like you may vomit. Feeling like you may vomit is usually not serious, but it maybe an early sign of a more serious medical problem. Vomiting is when stomach contents forcefully come out of your mouth. If you vomit, or if you are not able to drink enough fluids, you may not have enough water in your body (get dehydrated). If you do not have enough water in your body, you may: ??? Feel tired. ??? Feel thirsty. ??? Have a dry mouth. ??? Have cracked lips. ??? Pee (urinate) less often. Older adults and people who have other diseases or a weak body defense system (immune system) have a higher risk of not having enough water in the body. The main goals of treating this condition are: ??? To relieve your nausea. ??? To ensure your nausea occurs less often. ??? To prevent vomiting and losing too much fluid. Follow these instructions at home: Watch your symptoms for any changes. Tell your doctor about them. Eating and drinking ??? Take an ORS (oral rehydration solution). This is a drink that is sold at pharmacies and stores. ??? Drink clear fluids in small amounts as you are able. These include: ? Water. ? Ice chips. ? Fruit juice that has water added (diluted fruit juice). ? Low-calorie sports drinks. ??? Eat bland, ewgn-av-xncpet foods in small amounts as you are able, such as: ? Bananas. ? Applesauce. ? Rice. ? Low-fat (lean) meats. ? [place]. ? Crackers. ??? Avoid drinking fluids that have a lot of sugar or caffeine in them. This includes energy drinks, sports drinks, and soda. ??? Avoid alcohol. ??? Avoid spicy or fatty foods. General instructions ??? Take tsbb-rzn-sedipsr and prescription medicines only as told by your doctor. ??? Rest at home while you get better. ??? Drink enough fluid to keep your pee (urine) pale yellow. ??? Take slow and deep breaths when you feel like you may vomit. ??? Avoid food or things that have strong smells. ??? Wash your hands often with soap and water for at least 20 seconds. If you cannot use soap and water, use hand head of transport logistics. ??? Make sure that everyone in your home washes their hands well and often. ??? Keep all follow-up visits. Contact a doctor if: ??? You feel worse. ??? You feel like you may vomit and this lasts for more than 2 days. ??? You vomit. ??? You are not able to drink fluids without vomiting. ??? You have new symptoms. ??? You have a fever. ??? You have a headache. ??? You have muscle cramps. ??? You have a rash. ??? You have pain while peeing. ??? You feel light-headed or dizzy. Get help right away if: ??? You have pain in your chest, neck, arm, or jaw. ??? You feel very weak or you faint. ??? You have vomit that is bright red or looks like coffee grounds. ??? You have bloody or black poop (stools) or poop that looks like tar. ??? You have a very bad headache, a stiff neck, or both. ??? You have very bad pain, cramping, or bloating in your belly (abdomen). ??? You have trouble breathing or you are breathing very quickly. ??? Your heart is beating very quickly. ??? Your skin feels cold and clammy. ??? You feel confused. ??? You have signs of losing too much water in your body, such as: ? Dark pee, very little pee, or no pee. ? Cracked lips. ? Dry mouth. ? Sunken eyes. ? Sleepiness. ? Weakness. These symptoms may be an emergency. Get help right away. Call 911. ??? Do not wait to see if the symptoms will go away. ??? Do not drive yourself to the hospital. Summary ??? Nausea is feeling like you are about vomit. ??? If you vomit, or if you are not able to drink enough fluids, you may not have enough water in your body (get dehydrated). ??? Eat and drink what your doctor tells you. Take ttjq-jzj-xglfwce and prescription medicines onlyas told by your doctor. ??? Contact a doctor right away if your symptoms get worse or you have new symptoms. ??? Keep all follow-up visits. This information is not intended to replace advice given to you by your health care provider. Make sure you discuss any questions you have with your health care provider. Document Revised: 09/06/2021 Document Reviewed: 09/06/2021 [employer] Patient Education ? 2023 [employer] Abdominal Pain, Adult Many things can cause belly (abdominal) pain. In most cases, belly pain is not a serious problem and can be watched and treated at home. But in some cases, it can be serious. Your doctor will try to find the cause of your belly pain. Follow these instructions at home: Medicines ??? Take yomf-ppu-ilmhqxb and prescription medicines only as told by your doctor. ??? Do not take medicines that help you poop (laxatives) unless told by your doctor. General instructions ??? Watch your belly pain for any changes. Tell your doctor if the pain gets (more content not included)...[facility]03-09-2025 NoteED Patient Education Note Gastroenterology Nausea, Adult Nausea is feeling like you may vomit. Feeling like you may vomit is usually not serious, but it maybe an early sign of a more serious medical problem. Vomiting is when stomach contents forcefully come out of your mouth. If you vomit, or if you are not able to drink enough fluids, you may not have enough water in your body (get dehydrated). If you do not have enough water in your body, you may: ??? Feel tired. ??? Feel thirsty. ??? Have a dry mouth. ??? Have cracked lips. ??? Pee (urinate) less often. Older adults and people who have other diseases or a weak body defense system (immune system) have a higher risk of not having enough water in the body. The main goals of treating this condition are: ??? To relieve your nausea. ??? To ensure your nausea occurs less often. ??? To prevent vomiting and losing too much fluid. Follow these instructions at home: Watch your symptoms for any changes. Tell your doctor about them. Eating and drinking ??? Take an ORS (oral rehydration solution). This is a drink that is sold at pharmacies and stores. ??? Drink clear fluids in small amounts as you are able. These include: ? Water. ? Ice chips. ? Fruit juice that has water added (diluted fruit juice). ? Low-calorie sports drinks. ??? Eat bland, pzwl-zt-fszexe foods in small amounts as you are able, such as: ? Bananas. ? Applesauce. ? Rice. ? Low-fat (lean) meats. ? [place]. ? Crackers. ??? Avoid drinking fluids that have a lot of sugar or caffeine in them. This includes energy drinks, sports drinks, and soda. ??? Avoid alcohol. ??? Avoid spicy or fatty foods. General instructions ??? Take jgzz-hbb-pnyjtsn and prescription medicines only as told by your doctor. ??? Rest at home while you get better. ??? Drink enough fluid to keep your pee (urine) pale yellow. ??? Take slow and deep breaths when you feel like you may vomit. ??? Avoid food or things that have strong smells. ??? Wash your hands often with soap and water for at least 20 seconds. If you cannot use soap and water, use hand head of transport logistics. ??? Make sure that everyone in your home washes their hands well and often. ??? Keep all follow-up visits. Contact a doctor if: ??? You feel worse. ??? You feel like you may vomit and this lasts for more than 2 days. ??? You vomit. ??? You are not able to drink fluids without vomiting. ??? You have new symptoms. ??? You have a fever. ??? You have a headache. ??? You have muscle cramps. ??? You have a rash. ??? You have pain while peeing. ??? You feel light-headed or dizzy. Get help right away if: ??? You have pain in your chest, neck, arm, or jaw. ??? You feel very weak or you faint. ??? You have vomit that is bright red or looks like coffee grounds. ??? You have bloody or black poop (stools) or poop that looks like tar. ??? You have a very bad headache, a stiff neck, or both. ??? You have very bad pain, cramping, or bloating in your belly (abdomen). ??? You have trouble breathing or you are breathing very quickly. ??? Your heart is beating very quickly. ??? Your skin feels cold and clammy. ??? You feel confused. ??? You have signs of losing too much water in your body, such as: ? Dark pee, very little pee, or no pee. ? Cracked lips. ? Dry mouth. ? Sunken eyes. ? Sleepiness. ? Weakness. These symptoms may be an emergency. Get help right away. Call 911. ??? Do not wait to see if the symptoms will go away. ??? Do not drive yourself to the hospital. Summary ??? Nausea is feeling like you are about vomit. ??? If you vomit, or if you are not able to drink enough fluids, you may not have enough water in your body (get dehydrated). ??? Eat and drink what your doctor tells you. Take wbfe-mik-tkzozkt and prescription medicines onlyas told by your doctor. ??? Contact a doctor right away if your symptoms get worse or you have new symptoms. ??? Keep all follow-up visits. This information is not intended to replace advice given to you by your health care provider. Make sure you discuss any questions you have with your health care provider. Document Revised: 09/06/2021 Document Reviewed: 09/06/2021 [employer] Patient Education ? 2023 [employer]. Abdominal Pain, Adult Many things can cause belly (abdominal) pain. In most cases, belly pain is not a serious problem and can be watched and treated at home. But in some cases, it can be serious. Your doctor will try to find the cause of your belly pain. Follow these instructions at home: Medicines ??? Take pcpi-ssz-yvijvzi and prescription medicines only as told by your doctor. ??? Do not take medicines that help you poop (laxatives) unless told by your doctor. General instructions ??? Watch your belly pain for any changes. Tell your doctor if the pain gets (more content not included)...[facility]03-03-2025 History of Present illness Narrative* Rocio Yuen MA - 05/16/2024 11:00 AM EST Images from the original note were not included. Reason for Appointment: EMG Patient: Tish Vargas : 1980 EM[facility] Computer: [employer] Referring Physician: Yanet Junior CNP EMG: RUBÉN library paraprofessional: Rocio Yuen [facility] Office Location: [place] Reason for EMG: c/o numbness in the hands with holding up for long periods. Hands will feel cold. Intermittent neck pain. Hx of DM, takes Plavix. Comments: Procedure explained to the patient who expressed understanding. documented in this encounterSaint [id number] Telephone encounter Note* Telephone Encounter - Glenn Trimble - 03/24/2024 11:49 AM EST LVM to RC in regard to BUE and BLE referral from Yanet Junior--Approved to scheduled--[id number] Miscellaneous Notes* Telephone Encounter - Glenn Trimble - 03/24/2024 11:49 AM EST LVM to RC in regard to BUE and BLE referral from Yanet Junior--Approved to scheduled--has [employer] documented in this [facility]12-30-2024 History of Present illness Narrative* Yanet Junior NP - 03/14/2024 5:21 PM ESTAssociated Problem(s): Easy bruising Possible side effect asa etc?? Will check labs * Yanet Junior NP - 03/14/2024 5:20 PM ESTAssociated Problem(s): Vitamin deficiency Check vit d and b12 * Yanet Junior NP - 03/14/2024 5:16 PM ESTAssociated Problem(s): Diabetic neuropathy, painful (CMS/HCC) Was taking christopher at 800mg TID, requested [...] is worsening also difficulty with even texting * GERHARD KIRKLAND - 03/14/2024 1:00 PM EST Pt has two large bruises she is concerned about. Left deltoid has a large bruise 5-6 days And right upper back thigh bruise she has had for about two weeks. * Yanet Junior NP - 03/14/2024 1:00 PM EST Images from the original note were not included. Tish Vargas is a 43 y.o. female presents with chief complaint of No chief complaint on file. HPI: Here today to complete disability paperwork Has been noticing easy bruising, over the last several weeks, no blood in stool or urine Diabetes She presents for her follow-up diabetic visit. She has type 2 diabetes mellitus. Her disease coursehas been stable. Hypoglycemia symptoms include nervousness/anxiousness. Pertinent negatives for hypoglycemia include no dizziness, headaches, seizures or tremors. Associated symptoms include blurred v ision, fatigue, foot paresthesias and polydipsia. Pertinent negatives for diabetes include no chestpain, no foot ulcerations, no polyphagia, no polyuria and no weakness. There are no hypoglycemic complications. Symptoms are stable. Diabetic complications include heart disease and peripheral neuropathy. Risk factors for coronary artery disease include diabetes mellitus, dyslipidemia, hypertension, obesity, sedentary lifestyle and tobacco exposure. Current diabetic treatment includes oral agent (dual therapy). She is compliant with treatment all of the time. She has not had a previous visit with a dietitian. She rarely participates in exercise. An MONICA inhibitor/angiotensin II receptor elian is being taken. She does not see a licensed land surveyor.Eye exam is current. Hypertension This is a chronic problem. The current episode started more than 1 year ago. The problem is unchanged. The problem is controlled. Associated symptoms include anxiety, blurred vision, malaise/fatigue and palpitations. Pertinent negatives include no chest pain, headaches, peripheral edema or shortness of breath. There are no associated agents to hypertension. Risk factors for coronary artery disease include diabetes mellitus, dyslipidemia, obesity, sedentary lifestyle, smoking/tobacco exposure and stress. Past treatments include beta blockers and angiotensin blockers. The current treatment provides significant improvement. There are no compliance problems. Hypertensive end-organ damage includes CAD/VT. SUBJECTIVE: MEDICATIONS: Current Outpatient Medications Medication Instructions acetaminophen (TYLENOL) 1,000 mg, Every 8 hours PRN albuterol HFA 90 mcg/act inhaler 2 puffs, Inhalation, Every 6 hours PRN Alcohol Swabs (B-D SINGLE USE SWABS REGULAR) pads 1 each, Other, 2 times daily ALPRAZolam (XANAX) 1 mg, 2 times daily PRN ARIPiprazole (ABILIFY) 20 mg, Daily Aspirin Low Dose 81 mg, Daily atorvastatin (LIPITOR) 80 mg, Oral, Every evening B-D ULTRA-FINE 33 LANCETS misc 1 each, Does not apply, 2 times daily Blood Glucose Monitoring Suppl (Blood Glucose Monitor System) w/Device kit 1 kit, Does not apply, Daily Blood Pressure kit 1 kit, Does not apply, Daily budesonide-formoterol (Symbicort) 160-4.5 MCG/ACT inhaler 2 puffs, Inhalation, 2 times daily, [place] with water after use to reduce aftertaste and incidence of candidiasis. Do not swallow. busPIRone (BUSPAR) 15 mg, 2 times daily Continuous Glucose Military Technology Specialist (FreeStyle Anny 2 [place]) device 1 each, Does not apply, Daily Continuous Glucose Sensor (FreeStyle Anny 2 Sensor) misc 1 each, Does not apply, Daily empagliflozin (JARDIANCE) 25 mg, Oral, Daily ezetimibe (ZETIA) 10 mg, Oral, Every evening fluconazole (Diflucan) 150 MG tablet One time dose, may repeat in 3 days fluconazole (Diflucan) 150 MG tablet One time dose, repeat in 3 days. Do not take atorvastatin cholesterol pill while taking the fluconazaole, once completed resume taking the atorvastatin gabapentin (NEURONTIN) 800 mg, Oral, 3 times daily Glucose Blood (Blood Glucose Test Strips 333) strip 1 each, In Vitro, 2 times daily Glucose Blood (ONETOUCH ULTRA TEST ) 1 each, 2 times daily glucose blood (OneTouch Ultra Test) test strip Twice a day. Use as instructed hydrOXYzine HCl (ATARAX) 25 mg, 2 times [...] Oral, 2 times daily Mounjaro 12.5 mg, Every 7 days nicotine (Nicotine Step 1) 21 MG/24HR patch 1 patch, Transdermal, Every 24 hours, Rotate application site daily, may leave on for 24 hours, or take off prior to bedtime omeprazole (PRILOSEC) 20 mg, Oral, Daily before breakfast traZODone (Desyrel) 50 MG tablet TAKE 1 OR 2 TABLETS AT BEDTIME NEEDED venlafaxine (Effexor) 100 MG tablet TAKE 1 TABLET BY MOUTH EVERY DAY IN THE EVENING WITH FOOD ORALLY ONCE A DAY 30 DAY(S) ALLERGIES: Allergies Allergen Reactions Hydrocodone-Acetaminophen GI intolerance Penicillin G Hives and Nausea And Vomiting Tramadol Hives and Nausea And Vomiting REVIEW OF SYMPTOMS: Review of Systems Constitutional: Positive for fatigue, malaise/fatigue and unexpected weight change. Negative for appetite change, chills and fever. HENT: Negative for congestion, ear pain and sore throat. Eyes: Positive for blurred vision. Negative for pain, discharge, redness and visual disturbance. Respiratory: Negative for cough, shortness of breath and wheezing. Cardiovascular: Positive for palpitations. Negative for chest pain and leg swelling. Gastrointestinal: Positive for abdominal pain. Negative for blood in stool, constipation, diarrhea,nausea and vomiting. Genitourinary: Negative for difficulty urinating, dysuria and frequency. Musculoskeletal: Negative for arthralgias, back pain, joint swelling and myalgias. Skin: Negative for rash and wound. Neurological: Positive for numbness. Negative for dizziness, tremors, seizures, syncope, weakness and headaches. Psychiatric/Behavioral: Negative for behavioral problems, self-injury and suicidal ideas. The patient is nervous/anxious. Depression Hematological: Bruises/bleeds easily. Endocrine: Positive for polydipsia. Negative for polyphagia and polyuria. Allergic/Immunologic: Negative for environmental allergies and food allergies. PAST MEDICAL HISTORY Past Medical History: Diagnosis Date Anxiety and depression ([facility]) 05/25/2023 Candidiasis 05/25/2023 Chronic maxillary sinusitis 05/25/2023 COVID-19 12/2020 Cyst of left ovary 05/25/2023 Diabetes mellitus type 2, insulin dependent ([facility]) 05/19/2023 Diabetic neuropathy, painful ([facility]) 05/25/2023 Discharge from left nipple 05/25/2023 Drug abuse ([facility]) 05/25/2023 Prescription abuse Dyspareunia, female 05/25/2023 Fatty liver 05/25/2023 Generalized anxiety disorder with panic attacks ([facility]) 05/25/2023 GERD (gastroesophageal reflux disease) Hot flashes due to surgical menopause 05/25/2023 Hyperlipidemia ([facility]) 03/17/2023 Hypertension ([facility]) 05/25/2023 Insomnia 05/25/2023 Internal hemorrhoid 05/25/2023 VT (myocardial infarction) ([facility]) 05/25/2023 Obstructive sleep apnea, adult 05/25/2023 Paresthesia of hand, bilateral 05/25/2023 PCOS (polycystic ovarian syndrome) Rectal bleeding 05/25/2023 Tobacco use disorder 05/25/2023 Wheezing 03/17/2023 Xanthelasma, eyelid 05/25/2023 Past Surgical History: Procedure Laterality Date SECTION, LOW TRANSVERSE 2003 SECTION, LOW TRANSVERSE 2004 CORONARY STENT PLACEMENT DILATION AND CURETTAGE OF UTERUS 04/23/2018 Hysteroscopy HERNIA REPAIR 2005 HERNIA REPAIR HERNIA REPAIR HERNIA REPAIR HERNIA REPAIR 2011 TOTAL ABDOMINAL HYSTERECTOMY W/ BILATERAL SALPINGOOPHORECTOMY 09/06/2019 Lysis of adhesions, [place] with Dr. Willis family history includes Multiple sclerosis in her mother; possible medication overdose in her mother. OBJECTIVE: Visit Vitals BP 108/78 (BP Location: Right arm, Patient Position: Sitting, BP Cuff Size: Adult long) Pulse 87 Temp 98.5 F (Temporal) Resp 18 Ht 5' 4.5 Wt 249 lb SpO2 98% BMI 42.08 kg/m OB Status Hysterectomy Smoking Status Every Day BSA 2.27 m Physical Exam Vitals and nursing note reviewed. Constitutional: General: She is not in acute distress. Appearance: Normal appearance. HENT: Head: Normocephalic and atraumatic. Right Ear: External ear normal. Left Ear: External ear normal. Nose: Nose normal. Mouth/Throat: Mouth: Mucous membranes are moist. Eyes: Extraocular Movements: Extraocular movements intact. Conjunctiva/sclera: Conjunctivae normal. Cardiovascular: Rate and Rhythm: Normal rate and regular rhythm. Pulses: Normal pulses. Heart sounds: Normal heart sounds. Pulmonary: Effort: Pulmonary effort is normal. No respiratory distress. Breath sounds: Normal breath sounds. No wheezing. Abdominal: General: Bowel sounds are normal. There is no distension. Palpations: Abdomen is soft. There is no mass. Tenderness: There is no abdominal tenderness. Hernia: A hernia is present. Musculoskeletal: General: Normal range of motion. Cervical back: Normal range of motion and neck supple. Right lower leg: No edema. Left lower leg: No edema. Lymphadenopathy: Cervical: No cervical adenopathy. Skin: General: Skin is warm and dry. Capillary Refill: Capillary refill takes 2 to 3 seconds. Findings: Bruising (large cirular bruise to right buttock upper posterior thigh area, as well as one left deltoid region: measures approx 11 cm diameter) present. No rash. Neurological: General: No focal deficit present. Mental Status: She is alert and oriented to person, place, and time. Comments: Decreased sensation bilat feet and hands +phalens, neg tinels Psychiatric: Mood and Affect: Mood normal. Behavior: Behavior normal. Thought Content: Thought content normal. Judgment: Judgment normal. ASSESSMENT AND PLAN: Follow up in about 6 weeks (around 04/25/2024) for Recheck. Problem List Items Addressed This Visit RESOLVED: Type 2 diabetes mellitus with diabetic polyneuropathy, with long-term current use of insulin ([facility]) - Primary increase gabapentin to 800mg TID OARRS reviewed Relevant Medications gabapentin (Neurontin) 800 MG tablet Other Relevant Orders CBC auto differential Comprehensive metabolic panel EMG AND NERVE CONDUCTION STUDY Primary hypertension (CMS/HCC) Please check blood pressure daily and record DASH diet Limit caffeine Take medication as directed Contact office if chest pain, pressure, dizziness, shortness of breath, swelling legs Recommend slow position changes Current meds: losartan, metoprolol, Hyperlipidemia (CMS/HCC) Relevant Medications ezetimibe (Zetia) 10 MG tablet Other Relevant Orders Lipid panel TRUONG on CPAP Major depressive disorder, recurrent, moderate (CMS/HCC) Current meds: venlafaxine, abilify and xanax Continue with psych provider GERD (gastroesophageal reflux disease) Recommendations: freq small meals, nothing to eat or drink at least 2 hours prior to bed, limit caffeine, alcohol, as well as spicy foods Meds to limit or avoid if possible: NSAIDS Elevate HOB if possible Currently taking Omeprazole Relevant Orders CBC auto differential Coronary artery disease (CMS/HCC) Last appt she was given number for her vice president of communications: appt scheduled?- Current meds: asa, statin, zetia, losartan, b elian therapy Differentials: GERD, Anxiety, CAD Encounter for screening mammogram for malignant neoplasm of breast Relevant Orders Bilateral screening mammogram Diabetes mellitus type 2, insulin dependent (CMS/HCC) Doing well on current meds Check blood [...] does not have supply of free style anny 3, now needs anny 2 sent in Relevant Medications empagliflozin (Jardiance) 25 MG Continuous Glucose Military Technology Specialist (FreeStyle Anny 2 [place]) device Continuous Glucose Sensor (FreeStyle Anny 2 Sensor) misc Obstructive sleep apnea, adult You have a diagnosis of obstructive sleep apnea. It is recommended that you wear your PAP device any time while in bed sleeping. Not using the PAP device can increase your risk of elevated/uncontrolled high blood pressure, atrial fibrillation, heart attack, stroke, or sudden . Diabetic neuropathy, painful ([facility]) Was taking christopher at 800mg TID, requested [...] is worsening also difficulty with even texting Tobacco use disorder The patient has been advised of the risks of continued smoking: stroke, VT, all forms of cancer, lung disease, and . Options for quitting smoking include: cold turkey, hypnosis, acupuncture, nicotine replacement meds(gum, lozenges, and patches), Buproprion, and Varenicline. At this time pt is encouraged to evaluate their goals for wanting to quit smoking, and reach out toprovider when ready to start this process Has been prescribe nicotine patches Generalized anxiety disorder with panic attacks ([facility]) Continue with psych Current meds: abilify, xanax, and venalafaxine Would agree that mental health does have a direct effect on her ability to work RESOLVED: Anxiety and depression ([facility]) Is under the care of psychiatry for this Her current meds include: venlafaxine, xanax prn, abilify Continue with psych provider Relevant Orders TSH T4, free Class 2 severe obesity due to excess calories with serious comorbidity in adult ([facility]) Discussed with patient their BMI (actual, verses [...] gained 20 pounds was out of mounjaro COPD (chronic obstructive pulmonary disease) (CMS/HCC) Relevant Medications budesonide-formoterol (Symbicort) 160-4.5 MCG/ACT inhaler Ventral hernia without obstruction or gangrene Has been refered to General Surgery at [facility] Abd binder Reviewed s/s incarceration, go to ER if needed No lifting great than 5 pounds Vitamin deficiency Check vit d and b12 Relevant Orders Vitamin D 25 hydroxy Vitamin B12 Easy bruising Possible side effect asa etc?? Will check labs Relevant Orders Protime-INR APTT Other Visit Diagnoses Type 2 diabetes mellitus without complications (CMS/HCC) Relevant Medications insulin glargine (Lantus SoloStar) 100 UNIT/ML pen losartan (Cozaar) 25 MG tablet Atherosclerotic heart disease of [place] coronary artery without angina pectoris (CMS/HCC) Relevant Medications atorvastatin (Lipitor) 80 MG tablet metoprolol tartrate (Lopressor) 25 MG tablet Coronary atherosclerosis (CMS/HCC) Relevant Medications atorvastatin (Lipitor) 80 MG tablet metoprolol tartrate (Lopressor) 25 MG tablet Type 2 diabetes mellitus with diabetic neuropathy, unspecified (CMS/HCC) Relevant Medications metFORMIN XR (Glucophage-XR) 500 MG 24 hr tablet * Yanet Junior NP - 03/14/2024 7:01 AM ESTAssociated Problem(s): Tobacco use disorder The patient has been advised of the risks of continued smoking: stroke, VT, all forms of cancer, lung disease, and . Options for quitting smoking include: cold turkey, hypnosis, acupuncture, nicotine replacement meds(gum, lozenges, and patches), Buproprion, and Varenicline. At this time pt is encouraged to evaluate their goals for wanting to quit smoking, and reach out toprovider when ready to start this process Has been prescribe nicotine patches * Yanet Junior NP - 03/14/2024 7:01 AM ESTAssociated Problem(s): Major depressive disorder, recurrent, moderate (CMS/HCC) Current meds: venlafaxine, abilify and xanax Continue with psych provider * Yanet Junior NP - 03/14/2024 7:00 AM ESTAssociated Problem(s): Generalized anxiety disorder with panic attacks (CMS/HCC) Continue with psych Current meds: abilify, xanax, and venalafaxine Would agree that mental health does have a direct effect on her ability to work * Yanet Junior NP - 03/14/2024 6:59 AM ESTAssociated Problem(s): Anxiety and depression (CMS/HCC) (Resolved 03/14/2024) Is under the care of psychiatry for this Her current meds include: venlafaxine, xanax prn, abilify Continue with psych provider * Yanet Junior NP - 03/14/2024 6:58 AM ESTAssociated Problem(s): Class 2 severe obesity due to excess calories with serious comorbidity in adult (CMS/HCC) Discussed with patient their BMI (actual, verses [...] gained 20 pounds was out of mounjaro * Yanet Junior NP - 03/14/2024 6:57 AM ESTAssociated Problem(s): Diabetes mellitus type 2, insulin dependent ([facility]) Doing well on current meds Check blood [...] does not have supply of free style anny 3, now needs anny 2 sent in * Yanet Junior NP - 03/14/2024 6:55 AM ESTAssociated Problem(s): Ventral hernia without obstruction or gangrene Has been refered to General Surgery at [facility] Abd césar Reviewed s/s incarceration, go to ER if needed No lifting great than 5 pounds * Yanet Junior NP - 03/14/2024 6:55 AM ESTAssociated Problem(s): GERD (gastroesophageal reflux disease) Recommendations: freq small meals, nothing to eat or drink at least 2 hours prior to bed, limit caffeine, alcohol, as well as spicy foods Meds to limit or avoid if possible: NSAIDS Elevate HOB if possible Currently taking Omeprazole * Yanet Junior NP - 03/14/2024 6:55 AM ESTAssociated Problem(s): Primary hypertension (CMS/HCC) Please check blood pressure daily and record DASH diet Limit caffeine Take medication as directed Contact office if chest pain, pressure, dizziness, shortness of breath, swelling legs Recommend slow position changes Current meds: losartan, metoprolol, * Yanet Junior NP - 03/14/2024 6:54 AM ESTAssociated Problem(s): Coronary artery disease (CMS/HCC) Last appt she was given number for her vice president of communications: appt scheduled?- Current meds: asa, statin, zetia, losartan, b elian therapy Differentials: GERD, Anxiety, CAD * Yanet Junior NP - 03/14/2024 6:53 AM ESTAssociated Problem(s): Type 2 diabetes mellitus with diabetic polyneuropathy, with long-term current use of insulin (CMS/HCC) (Resolved 03/14/2024) increase gabapentin to 800mg TID OARRS reviewed * Yanet Junior NP - 03/14/2024 6:52 AM ESTAssociated Problem(s): Obstructive sleep apnea, adult You have a diagnosis of obstructive sleep apnea. It is recommended that you wear your PAP device any time while in bed sleeping. Not using the PAP device can increase your risk of elevated/uncontrolled high blood pressure, atrial fibrillation, heart attack, stroke, or sudden . documented in this [facility]12-30-2024 Instructions* Patient Instructions* Yanet Junior NP - 03/14/2024 1:00 PM EST Will order EMG both arms and legs: [facility] [place] Increase gabapentin Check labs Follow up in 6 weeks documented in this [facility]10-16-2024 History of Present illness Narrative* Yanet Junior NP - 12/30/2023 1:09 PM EDTAssociated Problem(s): Generalized anxiety disorder with panic attacks (CMS/HCC) Continue with psych * Yanet Junior NP - 12/30/2023 1:09 PM EDTAssociated Problem(s): Diabetes mellitus type 2, insulin dependent (CMS/HCC) Doing well on current meds Check A1c [...] and simple sugars. Fu in 3 months * Yanet Junior NP - 12/30/2023 1:08 PM EDTAssociated Problem(s): GERD (gastroesophageal reflux disease) Continue PPI * Yanet Junior NP - 12/30/2023 1:08 PM EDTAssociated Problem(s): Ventral hernia without obstruction or gangrene Will refer to General Surgery at [facility] Abd césar Reviewed s/s incarceration, go to ER if needed No lifting great than 5 pounds * Yanet Junior NP - 12/30/2023 1:07 PM EDTAssociated Problem(s): Coronary artery disease (CMS/HCC) Cont current meds Reports does get chest pain, she has the number to her Impact Hammer [employer], it is recommend that she call them to make an appt Differentials: angina, ?anxiety, ?GERD * Yanet Junior NP - 12/30/2023 1:06 PM EDTAssociated Problem(s): Primary hypertension (CMS/HCC) No med dose changes Check chem 8 * Yanet Junior NP - 12/30/2023 1:06 PM EDTAssociated Problem(s): Type 2 diabetes mellitus with diabetic polyneuropathy, with long-term current use of insulin (CMS/HCC) Cont gabapentin at 800mg TID OARRS reviewed * Yanet Junior NP - 12/30/2023 11:45 AM EDT Images from the original note were not included. Tish Vargas is a 43 y.o. female presents with chief complaint of No chief complaint on file. HPI: Here with multiple complaints today: mostly around the frustration of attempting to get disability.Pt states she has been trying to get disability for over 5 years, and is frustrated d/t saying thatwhen they get copies of my medical record it provides a clinical picture that all her conditions are stable, and they are not. I asked her what is she trying to get disability for, she replied her abd issues and anxiety. I explained she is treating with mental health for her anxiety, and any recommendations should comefrom them Hernia: this is the first that I am talking with her about hernias. She reports she has had an abd hernia repair when she had her hysterectomy. She noted a few weeks ago, she felt a tear in her abd wall, she describes it as sometimes sharp and more pulling. She can get increase in pain with liftinganything heavy as well. She has GERD as well and has long standing intermittent nausea as well. Shedoes use THC, in the form of edibles and occ smoking it. She has been referred to GI in the past Cardiac: it has been my assumption with ROS in the past visits she has not been experiencing chest pain, however she reports that she has gone multiple times to the ER with chest pain. When asked if she is still following with cardiology she reports no she does not. She does have their phone numberand I have asked that she see them for evaluation . She has been compliant with her statin, b elian and diabetes control.. I have also explained with her with underlying GERD and anxiety, in addition to CAD that not all chest pain is in fact cardiac related. DM: continues on her medications, and her blood sugar reads are less than 110. SUBJECTIVE: MEDICATIONS: Current Outpatient Medications Medication Instructions acetaminophen (TYLENOL) 1,000 mg, Oral, Every 8 hours PRN albuterol HFA 90 mcg/act inhaler 2 puffs, Inhalation, Every 6 hours PRN Alcohol Swabs (B-D SINGLE USE SWABS REGULAR) pads 1 each, Other, 2 times daily ALPRAZolam (XANAX) 1 mg, Oral, 2 times daily PRN, Total of 10 a month, weaning off. ARIPiprazole (ABILIFY) 20 mg, Oral, Daily aspirin (ASPIRIN LOW DOSE) 81 mg, Oral, Daily, CHEW 1 TABLET (81 MG) DAILY atorvastatin (LIPITOR) 80 mg, Oral, Every evening B-D ULTRA-FINE 33 LANCETS misc 1 each, Does not apply, 2 times daily bacitracin 500 UNIT/GM ointment Topical, 2 times daily Blood Glucose Monitoring Suppl (Blood Glucose Monitor System) w/Device kit 1 kit, Does not apply, Daily Blood Pressure kit 1 kit, Does not apply, Daily budesonide-formoterol (Symbicort) 160-4.5 MCG/ACT inhaler 2 puffs, Inhalation, 2 times daily, [place] with water after use to reduce aftertaste and incidence of candidiasis. Do not swallow. busPIRone (BUSPAR) 15 mg, Oral, 2 times daily cephalexin (KEFLEX) 500 mg, Oral clindamycin (CLEOCIN) 300 mg, Oral, 4 times daily clopidogrel (PLAVIX) 75 mg, Oral, Daily empagliflozin (JARDIANCE) 25 mg, Oral, Daily ezetimibe (ZETIA) 10 mg, Oral, Every evening fluconazole (Diflucan) 150 MG tablet One time dose, may repeat in 3 days gabapentin (NEURONTIN) 800 mg, Oral, 3 times daily Glucose Blood (Blood Glucose Test Strips 333) strip 1 each, In Vitro, 2 times daily hydrOXYzine HCl (ATARAX) 25 mg, Oral, 2 times daily PRN ibuprofen 800 mg, Oral, Every 6 hours PRN Insulin Pen Needle (pen needle 05/29 ) 31G x 5 mm [facility] [place]cutaneous, As needed, Use as instructed lamoTRIgine (LaMICtal) 200 MG tablet 1 tablet, Oral, Daily Lantus SoloStar 10 Units, Subcutaneous, Nightly losartan (COZAAR) 25 mg, Oral, Every morning metFORMIN XR (GLUCOPHAGE-XR) 1,000 mg, Oral, 2 times daily before meals metoprolol tartrate (LOPRESSOR) 25 mg, Oral, 2 times daily Mounjaro 12.5 mg, Subcutaneous, Every 7 days omeprazole (PRILOSEC) 20 mg, Oral, Daily before breakfast oxyCODONE-acetaminophen (Percocet) 5-325 MG tablet 1 tablet, Oral, Every 6 hours PRN traZODone (Desyrel) 50 MG tablet TAKE 1 OR 2 TABLETS AT BEDTIME NEEDED venlafaxine (Effexor) 100 MG tablet TAKE 1 TABLET BY MOUTH EVERY DAY IN THE EVENING WITH FOOD ORALLY ONCE A DAY 30 DAY(S) venlafaxine (Effexor) 50 MG tablet TAKE 1 TABLET BY MOUTH EVERY DAY IN THE EVENING WITH FOOD ALLERGIES: Allergies Allergen Reactions Hydrocodone-Acetaminophen GI intolerance Penicillin G Hives and Nausea And Vomiting Tramadol Hives and Nausea And Vomiting REVIEW OF SYMPTOMS: Review of Systems Constitutional: Negative for appetite change, chills and fever. HENT: Negative for congestion, ear pain and sore throat. Eyes: Negative for pain, discharge, redness and visual disturbance. Respiratory: Negative for cough, shortness of breath and wheezing. Cardiovascular: Positive for chest pain. Negative for palpitations and leg swelling. Gastrointestinal: Positive for abdominal pain and nausea. Negative for blood in stool, constipation, diarrhea and vomiting. Genitourinary: Negative for difficulty urinating, dysuria and frequency. Musculoskeletal: Negative for arthralgias, back pain, joint swelling and myalgias. Skin: Negative for rash and wound. Neurological: Negative for dizziness, tremors, seizures, syncope and headaches. Psychiatric/Behavioral: Negative for behavioral problems, self-injury and suicidal ideas. The patient is nervous/anxious. Hematological: Does not bruise/bleed easily. Depression Endocrine: Negative for polydipsia, polyphagia and polyuria. Allergic/Immunologic: Negative for environmental allergies and food allergies. PAST MEDICAL HISTORY Past Medical History: Diagnosis Date Anxiety and depression ([facility]) 05/25/2023 Candidiasis 05/25/2023 Chronic maxillary sinusitis 05/25/2023 COVID-19 12/2020 Cyst of left ovary 05/25/2023 Diabetes mellitus type 2, insulin dependent ([facility]) 05/19/2023 Diabetic neuropathy, painful ([facility]) 05/25/2023 Discharge from left nipple 05/25/2023 Drug abuse ([facility]) 05/25/2023 Prescription abuse Dyspareunia, female 05/25/2023 Fatty liver 05/25/2023 Generalized anxiety disorder with panic attacks ([facility]) 05/25/2023 GERD (gastroesophageal reflux disease) Hot flashes due to surgical menopause 05/25/2023 Hyperlipidemia ([facility]) 03/17/2023 Hypertension ([facility]) 05/25/2023 Insomnia 05/25/2023 Internal hemorrhoid 05/25/2023 VT (myocardial infarction) ([facility]) 05/25/2023 Obstructive sleep apnea, adult 05/25/2023 Paresthesia [...] in her mother. OBJECTIVE: Visit Vitals BP 90/60 (BP Location: Right arm, Patient Position: Sitting, BP Cuff Size: Large adult) Pulse 68 Resp 20 Ht 5' 4.5 Wt 229 lb 6.4 oz BMI 38.77 kg/m OB Status Hysterectomy Smoking Status Every Day BSA 2.18 m Physical Exam Vitals and nursing note reviewed. Constitutional: General: She is not in acute distress. Appearance: Normal appearance. HENT: Head: Normocephalic and atraumatic. Right Ear: External ear normal. Left Ear: External ear normal. Nose: Nose normal. Mouth/Throat: Mouth: Mucous membranes are moist. Eyes: Extraocular Movements: Extraocular movements intact. Conjunctiva/sclera: Conjunctivae normal. Cardiovascular: Rate and Rhythm: Normal rate and regular rhythm. Pulses: Normal pulses. Heart sounds: Normal heart sounds. Pulmonary: Effort: Pulmonary effort is normal. Breath sounds: Normal breath sounds. No wheezing, rhonchi or rales. Abdominal: General: Bowel sounds are normal. There is no distension. Palpations: Abdomen is soft. There is no mass. Tenderness: There is abdominal tenderness. Hernia: A hernia (2 large ventral hernias) is present. Musculoskeletal: General: Normal range of motion. Cervical [...] Content: Thought content normal. Judgment: Judgment normal. Comments: crying ASSESSMENT AND PLAN: No follow-ups on file. Problem List Items Addressed This Visit Type 2 diabetes mellitus with diabetic polyneuropathy, with long-term current use of insulin (CMS/HCC) Cont gabapentin at 800mg TID OARRS reviewed Relevant Medications gabapentin (Neurontin) 800 MG tablet Primary hypertension (CMS/HCC) No med dose changes Check chem 8 GERD (gastroesophageal reflux disease) Continue PPI Coronary artery disease (CMS/HCC) Cont current meds Reports does get chest pain, she has the number to her [employer], it is recommend that she call them to make an appt Differentials: angina, ?anxiety, ?GERD Diabetes mellitus type 2, insulin dependent (CMS/HCC) - Primary Doing well on current meds Check A1c [...] and simple sugars. Fu in 3 months Relevant Orders Basic metabolic panel Hemoglobin A1c Tobacco use disorder Generalized anxiety disorder with panic attacks (CMS/HCC) Continue with psych Obesity (BMI 30-39.9) Ventral hernia without obstruction or gangrene Will refer to General Surgery at [facility] Edward lindsey Reviewed s/s incarceration, go to ER if needed No lifting great than [address] abdomen pelvis w IV contrast Ambulatory referral to General Surgery * Yanet Junior NP - 12/30/2023 7:13 AM EDTAssociated Problem(s): Major depressive disorder, recurrent, moderate (CMS/HCC) Continue with mental health provider [id number] Discharge instructions Patient Education 10/29/2023 23:14:51 How to Take a Sitz Bath How to Take a Sitz Bath A sitz bath is a warm water bath that may be used to care for your rectum, genital area, or the area between your rectum and genitals (perineum). In a sitz bath, the water only comes up to your hips and covers your buttocks. A sitz bath may be done in a bathtub or with a portable sitz bath that fits over the toilet. Your health care provider may recommend a sitz bath to help: Relieve pain and discomfort after delivering a baby. Relieve pain and itching from hemorrhoids or anal fissures. Relieve pain after certain surgeries. Relax muscles that are sore or tight. How to take a sitz bath Take 2 4 sitz baths a day, or as many as told by your health care provider. Bathtub sitz bath To take a sitz bath in a bathtub: 1.Partially fill a bathtub with warm water. The water should be deep enough to cover your hips and buttocks when you are sitting in the bathtub. 2.Follow your health care provider's instructions if you are told to put medicine in the water. 3.Sit in the water. Open the bathtub drain a little, and leave it open during your bath. 4.Turn on the warm water again, enough to replace the water that is draining out. Keep the water running throughout your bath. This helps keep the water at the right level and temperature. 5.Soak in the water for 15 20 minutes, or as long as told by your health care provider. 6.When you are done, be careful when you stand up. You may feel dizzy. 7.After the sitz bath, pat yourself dry. Do not rub your skin to dry it. Ttdm-swk-ldaqhw sitz bath To take a sitz bath with an pamj-wet-rwnvfv basin: 1.Follow the stock sheets cleaner inspector's instructions. 2.Fill the basin with warm water. 3.Follow your health care provider's instructions if you were told to put medicine in the water. 4.Sit on the seat. Make sure the water covers your buttocks and perineum. 5.Soak in the water for 15 20 minutes, or as long as told by your health care provider. 6.After the sitz bath, pat yourself dry. Do not rub your skin to dry it. 7.Clean and dry the basin between uses. 8.Discard the basin if it cracks, or according to the stock sheets cleaner inspector's instructions. Contact a health care provider if: Your pain or itching gets worse. Stop doing sitz baths if your symptoms get worse. You have new symptoms. Stop doing sitz baths until you talk with your health care provider. Summary A sitz bath is a warm water bath in which the water only comes up to your hips and covers your buttocks. Your health care provider may recommend a sitz bath to help relieve pain and discomfort after delivering a baby, relieve pain and itching from hemorrhoids or anal fissures, relieve pain after certainsurgeries, or help to relax muscles that are sore or tight. Take 2 4 sitz baths a day, or as many as told by your health care provider. Soak in the water for 15 20 minutes. Stop doing sitz baths if your symptoms get worse. This information is not intended to replace advice given to you by your health care provider. Make sure you discuss any questions you have with your health care provider. Document Revised: 06/03/2022 Document Reviewed: 06/03/2022 [employer] Patient Education 2022 [employer]. 10/29/2023 23:14:51 Bartholin's Cyst Bartholin's Cyst A Bartholin's cyst is a fluid-filled sac that forms as a result of a blockage along the tube (duct)of the Bartholin's gland. Bartholin's glands are small [...] your cyst and whether it is infected. Infectioncauses symptoms to get more severe. How is [...] care provider who specializes in women's health (automatic print developer) for diagnosis and treatment. How is this [...] Follow these instructions at home: Medicines Take gheg-agg-amlwgqh and prescription medicines only as told by your health care provider. If you were prescribed an antibiotic medicine, take it as told by your health care provider. Do notstop taking the antibiotic even if your condition [...] cyst from returning and to prevent other Bartholin'scysts from developing: ?Take a bath or shower [...] of a blockage along the duct of theBartholin's gland. If your cyst is small, not [...] provider. Document Revised: 07/30/2020 Document Reviewed: 07/30/2020 [employer] Patient Education 2022 [employer]. Follow Up Care 10/29/2023 21:46:58 With:Vanita Richardson Address: [address] [address]- Business (1) When:11/01/2023 [facility] 08-15-2024 NoteED Patient Education Note Obstetrics and Gynecology How to Take a Sitz Bath A sitz bath is a warm water bath that may be used to care for your rectum, genital area, or the area between your rectum and genitals (perineum). In a sitz bath, the water only comes up to your hips and covers your buttocks. A sitz bath may be done in a bathtub or with a portable sitz bath that fits over the toilet. Your health care provider may recommend a sitz bath to help: ? Relieve pain and discomfort after delivering a baby. ? Relieve pain and itching from hemorrhoids or anal fissures. ? Relieve pain after certain surgeries. ? Relax muscles that are sore or tight. How to take a sitz bath Take 2?4 sitz baths a day, or as many as told by your health care provider. Bathtub sitz bath To take a sitz bath in a bathtub: 1. Partially fill a bathtub with warm water. The water should be deep enough to cover your hips andbuttocks when you are sitting in the bathtub. 2. Follow your health care provider's instructions if you are told to put medicine in the water. 3. Sit in the water. Open the bathtub drain a little, and leave it open during your bath. 4. Turn on the warm water again, enough to replace the water that is draining out. Keep the water running throughout your bath. This helps keep the water at the right level and temperature. 5. Soak in the water for 15?20 minutes, or as long as told by your health care provider. 6. When you are done, be careful when you stand up. You may feel dizzy. 7. After the sitz bath, pat yourself dry. Do not rub your skin to dry it. Lsan-xrz-rdpbla sitz bath To take a sitz bath with an pfse-kkg-ejwhtw basin: 1. Follow the stock sheets cleaner inspector's instructions. 2. Fill the basin with warm water. 3. Follow your health care provider's instructions if you were told to put medicine in the water. 4. Sit on the seat. Make sure the water covers your buttocks and perineum. 5. Soak in the water for 15?20 minutes, or as long as told by your health care provider. 6. After the sitz bath, pat yourself dry. Do not rub your skin to dry it. 7. Clean and dry the basin between uses. 8. Discard the basin if it cracks, or according to the stock sheets cleaner inspector's instructions. Contact a health care provider if: ? Your pain or itching gets worse. Stop doing sitz baths if your symptoms get worse. ? You have new symptoms. Stop doing sitz baths until you talk with your health care provider. Summary ? A sitz bath is a warm water bath in which the water only comes up to your hips and covers your buttocks. ? Your health care provider may recommend a sitz bath to help relieve pain and discomfort after delivering a baby, relieve pain and itching from hemorrhoids or anal fissures, relieve pain after certain surgeries, or help to relax muscles that are sore or tight. ? Take 2?4 sitz baths a day, or as many as told by your health care provider. Soak in the water for15?20 minutes. ? Stop doing sitz baths if your symptoms get worse. This information is not intended to replace advice given to you by your health care provider. Make sure you discuss any questions you have with your health care provider. Document Revised: 06/03/2022 Document Reviewed: 06/03/2022 [employer] Patient Education ? 2022 [employer] Bartholin's Cyst A Bartholin's cyst is a fluid-filled sac that forms as a result of a blockage along the tube (duct)of the Bartholin's gland. Bartholin's glands are small [...] your cyst and whether it is infected. Infectioncauses symptoms to get more severe. How is this diagnosed? This condition may be diagnosed based on: ? Your symptoms and medical history. ? A physical exam to check for swelling in your vaginal area. You may lie on your back on an exam table and have your feet placed into footrests for the exam. ? Blood tests to check for infections. ? Remova (more content not included)...[facility]07-30-2024 NoteProgress Note-Physician Patient: TISH VARGAS Age: 42 years Sex: Female : 1980 Associated Diagnoses: None Author: Hieu Mosley Jr, DO Preoperative Information Anesthesia Preop Info: Time patient last ate or drank 10/10/2023 00:00:00. Anesthesia history: Patient history: None. Family history+: None. Informed consent: Signed by patient. Re-evaluation prior to induction: Initial evaluation reviewed: No significant change. Review of Systems Eye: Negative except as documented in history of present illness. Ear/Nose/Mouth/Throat: Negative except as documented in history of present illness. Respiratory: Negative except as documented in history of present illness. Cardiovascular: Negative except as documented in history of present illness. Musculoskeletal: Negative except as documented in history of present illness. Neurologic: Negative except as documented in history of present illness. Health Status Allergies: Allergic Reactions (Selected) Severity Not Documented Penicillin- Hives and nausea and vomiting. Ultram- Hives and nausea and vomiting. Vicodin- Vomit. Problem list: All Problems Presence of stent in coronary artery / SNOMED CT 1947185055 / Confirmed Fatty liver / SNOMED CT 342927900 / Confirmed Smoker / SNOMED CT 650281761 / Confirmed Added secondary to documentation in Social History. Narcotic abuse / SNOMED CT 167271530 / Confirmed PCOS (polycystic ovarian syndrome) / SNOMED CT 418910262 / Confirmed TRUONG on CPAP / SNOMED CT 836969659 / Confirmed Insomnia / SNOMED CT 472927956 / Confirmed Hypertension / SNOMED CT 2496733052 / Confirmed HTN (hypertension) / SNOMED CT 9996269315 / Confirmed Hyperlipidemia / SNOMED CT 72987754 / Confirmed History of VT (myocardial infarction) / SNOMED CT 9286910317 / Confirmed Hemorrhoids / SNOMED CT 736297516 / Confirmed GERD (gastroesophageal reflux disease) / SNOMED CT 918494552 / Confirmed Diabetic neuropathy / SNOMED CT 147518115 / Confirmed Diabetes / SNOMED CT 051440970 / Confirmed Depression / SNOMED CT 38083191 / Confirmed Left ovarian cyst / SNOMED CT 610690459 / Confirmed Coronary artery disease / SNOMED CT 03128105 / Confirmed Anxiety / SNOMED CT 10821663 / Confirmed Abnormal uterine bleeding / SNOMED CT 3975099235 / Confirmed Resolved: Uterine fibroid / SNOMED CT 770691726 Resolved: DM type 2, goal HbA1c < 7% / SNOMED CT 189986699 Resolved: Smoker 15-SEP-2013 12:37:00<$> / SNOMED CT [id number] Added secondary to documentation in Social History. Resolved: PCOS - Polycystic ovarian syndrome / SNOMED CT 647341801 Resolved: Myocardial infarction / SNOMED CT 05205429 Resolved: renal calculi / SNOMED CT 890581897 Resolved: Nicotine abuse / SNOMED CT 2083453439 Resolved: CAD - Coronary artery disease / SNOMED CT 9792557915 Canceled: NONE / SNOMED CT 443283729 Canceled: Diabetes mellitus / SNOMED CT 653966952 Histories Procedure history: Abdominal hysterectomy (012733718) in 2019 at 38 Years. Appendectomy (606457681) in 2019 at 38 Years. PCI on 08/20/2018 at 37 Years. Comments: 09/03/2018 13:55 Estuardo Velazquez RN Drug eluting stent to the Medial LAD Hernia repair x5. Comments: 10/08/2018 7:53 Za Sands [id number] x2. Comments: 10/08/2018 7:53 Za Sands [id number] lithotripsy. kidney stone removal. Cardiac Stent. Incision AND drainage (578452287). Comments: 01/02/2021 11:14 Dalia Ocampo LPN multiple abscess Dilation and curettage (15824207). Bilateral salpingo-oophorectomy (32857884). Cardiac catheterization (55041234). Hysterectomy (857769264). Social History Social & Psychosocial Habits Alcohol 09/25/2023 Risk Assessment: Denies Alcohol Use Comment: denies. - 06/25/2017 13:59 - Tmaiko Escamilla RN 09/25/2023 Use: Past 09/25/2023 Use: Past Comment: denies. - 01/09/2019 09:08 - Tamiko Escamilla RN Comment: pt denies - 09/05/2019 20:22 - Matt Davis RN Comment: denies - 09/12/2019 05:44 - Bharat Wu RN Comment: pt denies - 09/18/2019 21:48 - Matt Davis RN 09/25/2023 Use: Current Comment: denies - 11/23/2019 02:31 - Cheyenne Ann RN Comment: denies - 11/26/2019 09:50 - Rocio Sarabia RN Comment: Denies. - 04/01/2020 18:24 - Anusha Pereira RN 09/25/2023 Use: Current Frequency: 1-2 times per year 09/25/2023 Use: Current Comment: denies - 12/16/2020 11:51 - Jossy Strickland Substance Abuse 09/25/2023 Use: Current Type: Marijuana Frequency: 1-2 times per month IV drug use: No Has drug use interfered with your work or home life? No Ready to change: No Concerns about substance abuse in household: No Comment: couple times per month. - 06/25/2017 13:59 - Tamiko Escamilla RN 09/25/2023 Use: Current Type: Marijuana Frequency: 1-2 times per week Previous treatment: None IV drug use: No Has drug use interfere (more content not included)...[facility] Comment on above:Result Comment: Electronically Signed By: Hieu Mosley Jr, DO\.br\Date and Time Signed: 10/13/23 07:38 [id number] NoteProgress Note-Physician Patient: TISH VARGAS Age: 42 years Sex: Female : 1980 Associated Diagnoses: None Author: Hieu Mosley Jr, DO Postoperative Information Postoperative disposition: Postoperative disposition: To PACU. Optimetrix number: Optimetrix number [id number]. Anesthetic utilized: General. Health Status Allergies: Allergic Reactions (Selected) Severity Not Documented Penicillin- Hives and nausea and vomiting. Ultram- Hives and nausea and vomiting. Vicodin- Vomit. Physical Examination Vital Signs 10/10/2023 9:33 EDT Temperature Temporal Artery 36.5 DegC Heart Rate Monitored 78 bpm Respiratory Rate Monitored 10 br/min Systolic Blood Pressure 115 mmHg Diastolic Blood Pressure 70 mmHg Mean Arterial Pressure, Cuff 85 mmHg SpO2 95 % 10/10/2023 9:30 EDT Heart Rate Monitored 73 bpm Respiratory Rate Monitored 8 br/min Systolic Blood Pressure 115 mmHg Diastolic Blood Pressure 70 mmHg Mean Arterial Pressure, Cuff 85 mmHg SpO2 97 % 10/10/2023 9:20 EDT Heart Rate Monitored 71 bpm Respiratory Rate Monitored 6 br/min Systolic Blood Pressure 114 mmHg Diastolic Blood Pressure 67 mmHg Mean Arterial Pressure, Cuff 83 mmHg SpO2 97 % 10/10/2023 9:15 EDT Heart Rate Monitored 70 bpm Respiratory Rate Monitored 6 br/min Systolic Blood Pressure 99 mmHg Diastolic Blood Pressure 61 mmHg Mean Arterial Pressure, Cuff 74 mmHg SpO2 96 % 10/10/2023 9:10 EDT Heart Rate Monitored 67 bpm Respiratory Rate Monitored 5 br/min Systolic Blood Pressure 95 mmHg Diastolic Blood Pressure 61 mmHg Mean Arterial Pressure, Cuff 72 mmHg SpO2 96 % 10/10/2023 9:08 EDT Temperature Temporal Artery 36.2 DegC LOW Heart Rate Monitored 63 bpm Respiratory Rate Monitored 6 br/min Systolic Blood Pressure 92 mmHg Diastolic Blood Pressure 57 mmHg LOW Mean Arterial Pressure, Cuff 69 mmHg SpO2 96 % Pain Assessment: Controlled. General: Awake, Alert, Appropriate. Respiratory: Adequate air exchange. Cardiovascular: Stable, Normal peripheral perfusion. Neurological: Normal sensory function, Normal motor function. Assessment Anesthetic outcome No anesthetic complications noted. Adequate pain relief. able to void without difficulty, able to ambulate with assist, tolerating PO intake, no N/V. Review / Management Condition: Stable. Plan Transfer/Discharge: Transfer/Discharge Discharge when meets criteria ( From PACU to floor ).[facility] Comment: Electronically Signed By: Hieu Mosley Jr, DO\.br\Date and Time Signed: 10/13/23 07:38 [id number] Hospital Discharge instructions Additional Instructions Take 1 oxycodone every 4-6 hours for severe pain Follow-up with your SERVICE LINE COORDINATOR this week Return to the ER for more severe pain especially with fever vomiting redness swelling warmth or any other [facility] Work Phone: [phone] Hospital Discharge instructions Patient Education 10/11/2023 01:07:56 Bartholin's Cyst Incision and Drainage, Care After Bartholin's Cyst Incision and Drainage, Care After After Bartholin's cyst incision and drainage, it is common to have light vaginal discharge. It may contain blood. It is also common to have: Mild pain. Discomfort. Follow these instructions at home: The instructions below may help you care for yourself at home. Your health care provider may give you more instructions. If you have questions, ask your health care provider. Medicines Take gphr-iah-cjksush and prescription medicines only as told by your health care provider. If you were prescribed antibiotics, take them as told by your health care provider. Do not stop taking them even if you start to feel better. Bathing Take sitz baths as told by your health care provider. You may be told to start these 1 2 days afteryour procedure. Take them once or twice each day. Incision care Follow instructions from your health care provider about: ?Signs of infection. ?How to take care of your incision. Make sure you: ?Wash your hands with soap and water for at least 20 seconds before and after you change your bandage. If you cannot use soap and water, use hand head of transport logistics. ?Change your bandage. ?Leave stitches or skin glue in place for at least 2 weeks. ?Leave tape strips alone unless you are told to take them off. You may trim the edges of the tape strips if they curl up. General instructions Return to your normal activities when your health care provider says that it is safe. Do not have vaginal sex or insert anything in your vagina until your health care provider says it is safe. Wear an absorbent pad if you have any discharge. Keep all follow-up visits. This is important. If you have a catheter, return to your health care provider to have it removed. Contact a health care provider if: You have chills or a fever. You have pain even after taking medicine. Your incision has signs of infection. Your catheter comes out. Summary After your procedure, it is common to have mild pain and light discharge. Start taking sitz baths as told by your health care provider. Do not have vaginal sex or insert anything in your vagina until your health care provider says it is safe. Contact your health care provider if your incision has signs of infection. If you have a catheter, return to your health care provider to have it removed. This information is not intended to replace advice given to you by your health care provider. Make sure you discuss any questions you have with your health care provider. Document Revised: 07/04/2022 Document Reviewed: 07/04/2022 [employer] Patient Education 2022 [employer]. Follow Up Care 10/10/2023 22:42:30 With:Vanita Richardson Address: [address] [address] [facility] (1) When:10/14/2023 Comments:Please follow-up with OB for further evaluation and management. you can use the pain medication as prescribed as needed for pain. With:YANET JUNIOR Address: [address] [facility] [place] [phone] Business (1) When:10/14/2023 [facility] 07-28-2024 NoteED Patient Education Note Obstetrics and Gynecology Bartholin's Cyst Incision and Drainage, Care After After Bartholin's cyst incision and drainage, it is common to have light vaginal discharge. It may contain blood. It is also common to have: ? Mild pain. ? Discomfort. Follow these instructions at home: The instructions below may help you care for yourself at home. Your health care provider may give you more instructions. If you have questions, ask your health care provider. Medicines ? Take iqsx-trx-fmfyzpz and prescription medicines only as told by your health care provider. ? If you were prescribed antibiotics, take them as told by your health care provider. Do not stop taking them even if you start to feel better. Bathing ? Take sitz baths as told by your health care provider. You may be told to start these 1?2 days after your procedure. Take them once or twice each day. Incision care ? Follow instructions from your health care provider about: ? Signs of infection. ? How to take care of your incision. Make sure you: ? Wash your hands with soap and water for at least 20 seconds before and after you change your bandage. If you cannot use soap and water, use hand head of transport logistics. ? Change your bandage. ? Leave stitches or skin glue in place for at least 2 weeks. ? Leave tape strips alone unless you are told to take them off. You may trim the edges of the tape strips if they curl up. General instructions ? Return to your normal activities when your health care provider says that it is safe. ? Do not have vaginal sex or insert anything in your vagina until your health care provider says itis safe. ? Wear an absorbent pad if you have any discharge. ? Keep all follow-up visits. This is important. If you have a catheter, return to your health care provider to have it removed. Contact a health care provider if: ? You have chills or a fever. ? You have pain even after taking medicine. ? Your incision has signs of infection. ? Your catheter comes out. Summary ? After your procedure, it is common to have mild pain and light discharge. ? Start taking sitz baths as told by your health care provider. ? Do not have vaginal sex or insert anything in your vagina until your health care provider says itis safe. ? Contact your health care provider if your incision has signs of infection. ? If you have a catheter, return to your health care provider to have it removed. This information is not intended to replace advice given to you by your health care provider. Make sure you discuss any questions you have with your health care provider. Document Revised: 07/04/2022 Document Reviewed: 07/04/2022 [employer] Patient Education ? 2022 [employer].[facility] 10-10-2023 Evaluation + Plan noteExtracted from: Title:Discharge Note Author:Vanita Richardson DO Date:10/10/23 Discharge To, Anticipated II - Home with responsible caregiver Discharged to - Home with family care Discharge Diet(s): Regular (10/10/23 12:29:00) Prescriptions acetaminophen-oxycodone 325 mg-5 mg Tab, 1 tab(s), Oral, q6hr albuterol HFA 90 mcg/inh MDI, 2 puff(s), Inhalation, QID, PRN atorvastatin 80 mg Tab, 80 mg= 1 tab(s), Oral, Daily naproxen 500 mg Tab, 500 mg= 1 tab(s), Oral, BID, Not taking nitroglycerin 0.4% rectal ointment, See Instructions Percocet 5 mg-325 mg oral tablet, 1 tab(s), Oral, q6hr Zofran ODT 4 mg Tab-Dis, 4 mg= 1 tab(s), Oral, q8hr, PRN, Still taking, not as prescribed: patient prn medications Home Albuterol (Eqv-Ventolin HFA) 90 mcg/inh inhalation aerosol, 2 puff(s), Inhalation, q6hr aspirin 81 mg Chew Tab, 81 mg= 1 tab(s), Chewed, Daily Effexor XR 150 mg Cap-ER, 150 mg= 1 cap(s), Oral, Daily gabapentin 300 mg Cap, 300 mg= 1 cap(s), Oral, TID Jardiance 25 mg oral tablet, 25 mg= 1 tab(s), Oral, qAM losartan 25 mg Tab, 25 mg= 1 tab(s), Oral, Bedtime MetFORMIN (Eqv-Glucophage XR) 500 mg oral tablet, extended release, 1000 mg= 2 tab(s), Oral, BID Metoprolol tartrate 25 mg Tab, 25 mg= 1 tab(s), Oral, BID Nicoderm C-Q 7 mg/24 hr Patch-ER, 1 patch(es), Topical, Daily nitrofurantoin macrocrystals-monohydrate 100 mg Cap, 100 mg= 1 cap(s), Oral, BID Plavix 75 mg Tab, 75 mg= 1 tab(s), Oral, Daily Xanax 1 mg Tab, 1 mg= 1 tab(s), Oral, BID, PRN With When Contact Information Vanita Richardson Within [address] [place], [place] [id number] [facility] (1) Additional Instructions: Please call to schedule your follow up Extracted from: Title:Progress/SOAP Note Author:Gena Elizabeth DO Date:10/09/23 42-year-old female admitted for labial abscess having failed outpatient therapy. She has multiple comorbidities including type 2 diabetes with neuropathy, hypertension, hyperlipidemia, CAD status post VT x 2 with 2 stents 2019, untreated sleep apnea, PCOS, anxiety, fatty liver disease and previous history of tobacco abuse. 1. Labial abscess (N76.4: Abscess of vulva) Maintain vancomycin and Unasyn Pain control as needed Tylenol for mild pain, Percocet for moderate pain and Dilaudid for severe pain Plan for excision tomorrow October 09 Ordered: Initial Hospital Care/Day Moderate 55 Minutes [id number] 2. CAD (coronary artery disease) (I25.10: Atherosclerotic heart disease of creek coronary artery without angina pectoris) Continue aspirin, atorvastatin, Setia, losartan and metoprolol that she takes from home Held her Plavix in preparation for surgical intervention and she is currently on subcu heparin for DVT prophylaxis Ordered: Initial Hospital Care/Day Moderate 55 Minutes [id number] 3. Type II diabetes mellitus (E11.9: Type 2 diabetes mellitus without complications) Sliding-scale insulin coverage for diabetes Ordered: Initial Hospital Care/Day Moderate 55 Minutes [id number] 4. Obesity, morbid (E66.01: Morbid (severe) obesity due to excess calories) Therapeutic lifestyle modifications in the outpatient setting Ordered: Initial Hospital Care/Day Moderate 55 Minutes [id number] Orders: acetaminophen-oxycodone, 2 tab(s), Tab, Oral, q4hr PRN Pain 4-7, Routine, Start date 10/09/23 9:24:00 EDT acetaminophen-oxycodone, 1 tab(s), Tab, Oral, Once, Stop date 10/09/23 9:27:00 EDT, Routine, Start date 10/09/23 9:27:00 EDT alprazolam, 1 mg = 1 tab(s), Tab, Oral, BID PRN Anxiety, Routine, Start date 10/08/23 18:46:00 EDT aspirin, 81 mg = 1 tab(s), Tab-Chew, Chewed, Daily, Routine, Start date 10/09/23 9:00:00 EDT, 10/08/23 18:46:00 EDT atorvastatin, 80 mg = 2 tab(s), Tab, Oral, Daily, Routine, Start date 10/09/23 9:00:00 EDT ezetimibe, 10 mg = 1 tab(s), Tab, Oral, Bedtime, Routine, Start date 10/08/23 21:00:00 EDT glucose, 50 mL, Soln-IV, IV Push, Once PRN Blood glucose, Routine, Start date 10/08/23 18:54:00 EDT heparin, 5,000 unit(s) = 1 mL, Injection, SubCutaneous, q8hr for 30 day(s), Stop date 11/07/23 23:59:00 EDT, Routine, Start date 10/09/23 0:00:00 EDT insulin lispro, 0-10 unit(s), Injection-Insulin, SubCutaneous, QIDACHS, Routine, Start date 10/08/23 21:00:00 EDT losartan, 25 mg = 0.5 tab(s), Tab, Oral, Bedtime, Routine, Start date 10/08/23 21:00:00 EDT metoprolol, 25 mg = 1 tab(s), Tab, Oral, BID, Routine, Start date 10/08/23 21:00:00 EDT, 10/08/23 18:46:00 EDT ondansetron, 4 mg = 2 mL, Injection, IV Push, q6hr PRN Nausea/Vomiting, Routine, Start date 10/09/23 13:49:00 EDT venlafaxine, 150 mg = 1 cap(s), Cap-ER, Oral, Daily, Routine, Start date 10/09/23 9:00:00 EDT Basic Metabolic Panel CBC w/ Auto Diff Comprehensive Metabolic Panel eGFR Hypoglycemia Protocol Responsive Patient Hypoglycemia Protocol Unresponsive Patient Routine Capillary Glucose POC PLAN: 1. Continue IV vancomycin and Zosyn 2. Check BMP in a.m. given the fact that she is on vancomycin 3. Maintain aspirin, atorvastatin, Zetia, losartan and metoprolol given her CAD history 4. She is also on Effexor and gabapentin 5. Pain control as needed 6. DVT prophylaxis with subcu heparin Extracted from: Title:Admission H & P Author:Ana Richardson DO Date:10/09/23 1. Labial abscess (N76.4: Ab scess of vulva) Continue IV antibiotics and NPO at midnight Exam under anesthesia, left vulvar mass/lump excision/removal tomorrow at 8am Informed consent signed 2. CAD (coronary artery disease) (I25.10: Atherosclerotic heart disease of creek coronary artery without angina pectoris) 3. Type II diabetes mellitus (E11.9: Type 2 diabetes mellitus without complications) Management as per Hospitalist. Appreciate the recommendation 4. Obesity, morbid (E66.01: Morbid (severe) obesity due to excess calories) Orders: ampicillin-sulbactam + Sodium Chloride 0.9% intravenous solution 100 mL, 3 gram = 1 EA, Injection, IV Piggyback, q6hrFT, Routine, Start date 10/08/23 18:00:00 EDT, 200 mL/hr, Infuse over 30 minute(s) fluconazole, 100 mg = 1 tab(s), Tab, Oral, Once, Stop date 10/08/23 22:00:00 EDT, Routine, Start date 10/08/23 22:00:00 EDT, 10/08/23 21:29:00 EDT promethazine 25 mg + Sodium Chloride 0.9% intravenous solution 50 mL, Injection, IV Piggyback, Once, Stop date 10/09/23 2:19:00 EDT, Routine, Start date 10/09/23 2:19:00 EDT, 153 mL/hr, Infuse over 20 minute(s) Sodium Chloride 0.9% intravenous solution 1,000 mL, 1,000 mL, IV, 125 mL/hr, Routine, Start date 10/08/23 15:57:00 EDT, 8 hour(s), Total volume (mL): 1,000, 106.2 kg, 2.17, m2 vancomycin, PHARMACY TO DOSE, Injection, IV, As Directed, Routine, Start date 10/08/23 15:49:00 EDT vancomycin + Generic Diluent 300 mL, 1,500 mg = 300 mL, Soln-IV, IV Piggyback, q12hr, Start date 10/08/23 17:00:00 EDT, 200 mL/hr, Infuse over 90 minute(s) C-Reactive Protein Capillary Glucose POC CBC w/ Auto Diff Comprehensive Metabolic Panel Consult to Hospitalist eGFR Place in Status Regular Diet Vancomycin Level Peak Vancomycin Level Trough Extracted from: Title:Consult Note Author:Uriel Elizabeth DO Date:10/08/23 42-year-old female admitted for labial abscess having failed outpatient therapy. She has multiple comorbidities including type 2 diabetes with neuropathy, hypertension, hyperlipidemia, CAD status post VT x 2 with 2 stents 2019, untreated sleep apnea, PCOS, anxiety, fatty liver disease and previous history of tobacco abuse. 1. Labial abscess (N76.4: Abscess of vulva) Agree with vancomycin and Unasyn Pain control as needed with Tylenol for mild pain, Percocet for moderate pain and Dilaudid for severe pain 2. CAD (coronary artery disease) (I25.10: Atherosclerotic heart disease of creek coronary artery without angina pectoris) I was going to resume her Plavix but will put her on heparin; there may be intervention this weekend and SAW OPERATOR reevaluates so I chose heparin and the patient says every time she is admitted they put her on heparin instead of Plavix I resumed her metoprolol as an aspirin as well as well as her Lipitor 3. Type II diabetes mellitus (E11.9: Type 2 diabetes mellitus without complications) I will put her on sliding scale insulin for coverage for her diabetes 4. Obesity, morbid (E66.01: Morbid (severe) obesity due to excess calories) Therapeutic lifestyle modification in the outpatient setting Orders: acetaminophen-oxycodone, 1 tab(s), Tab, Oral, q6hr PRN Pain 4-7, Routine, Start date 10/08/23 18:45:00 EDT alprazolam, 1 mg = 1 tab(s), Tab, Oral, BID PRN Anxiety, Routine, Start date 10/08/23 18:46:00 EDT aspirin, 81 mg = 1 tab(s), Tab-Chew, Chewed, Daily, Routine, Start date 10/09/23 9:00:00 EDT, 10/08/23 18:46:00 EDT atorvastatin, 80 mg = 2 tab(s), Tab, Oral, Daily, Routine, Start date 10/09/23 9:00:00 EDT gabapentin, 300 mg = 1 cap(s), Cap, Oral, TID, Routine, Start date 10/08/23 22:00:00 EDT, 10/08/23 18:46:00 EDT glucose, 50 mL, Soln-IV, IV Push, Once PRN Blood glucose, Routine, Start date 10/08/23 18:54:00 EDT heparin, 5,000 unit(s) = 1 mL, Injection, SubCutaneous, q8hr for 30 day(s), Stop date 11/07/23 23:59:00 EDT, Routine, Start date 10/09/23 0:00:00 EDT insulin lispro, 0-10 unit(s), Injection-Insulin, SubCutaneous, QIDACHS, Routine, Start date 10/08/23 21:00:00 EDT losartan, 25 mg = 0.5 tab(s), Tab, Oral, Bedtime, Routine, Start date 10/08/23 21:00:00 EDT metoprolol, 25 mg = 1 tab(s), Tab, Oral, BID, Routine, Start date 10/08/23 21:00:00 EDT, 10/08/23 18:46:00 EDT venlafaxine, 150 mg = 1 cap(s), Cap-ER, Oral, Daily, Routine, Start date 10/09/23 9:00:00 EDT CBC w/ Auto Diff Comprehensive Metabolic Panel Hypoglycemia Protocol Responsive Patient Hypoglycemia Protocol Unresponsive Patient Routine Capillary Glucose POC PLAN: 1. Agree with IV antibiotics 2. I will order labs for a.m. 3. I added sliding scale insulin coverage for her diabetes 4. I resumed her aspirin, atorvastatin, losartan and metoprolol given her cardiac history 5. Pain control as needed with Tylenol for mild pain, Percocet for moderate pain and Dilaudid for severe pain 6. DVT prophylaxis with subcu heparin 7. I held her Plavix in case there was some surgical intervention 8. I resumed her other meds including her fracture or gabapentin Thank you for consultation. Will follow with you. Future Appointments Appointment Date:12/02/2023 10:00:00 AM Scheduled Provider:Semaj QUINTERSO MD Location:[facility] Appointment Type:URO New Patient Future Scheduled Tests Radiology* XR Abdomen 1 View 08/06/23 [facility] 07-27-2024 Evaluation + Plan noteExtracted from: Title:ED Note Author:Janes Bowles DO Date :10/10/23 Bartholin's cyst (N75.0: Cys t of Bartholin's gland) Orders: acetaminophen-oxycodone, 1 EA, Tab, Oral, Once, Stop date 10/11/23 0:29:00 EDT, STAT, Start date 10/11/23 0:29:00 EDT acetaminophen-oxycodone, 1 tab(s), Oral, q6hr for 3 day(s), 7 tab(s), Refill(s) 0, [facility], 160, cm, 10/10/23 22:52:00 EDT, Height/Length Dosing, 117.9, kg, 10/10/23 23:03:00 EDT, Weight Dosing HYDROmorphone, 1 mg = 1 mL, Injection, IntraMuscular, Once, Stop date 10/10/23 23:05:00 EDT, STAT, Start date 10/10/23 23:05:00 EDT, 10/10/23 23:05:00 EDT naproxen, 500 mg = 1 tab(s), Oral, BID, PRN for pain, # 20 tab(s), Refills(s) 0, Pharmacy: [facility], 160, cm, 10/10/23 22:52:00 EDT, Height/Length Dosing, 117.9, kg, 10/10/23 23:03:00 EDT, Weight Dosing Future Appointments Appointment Date:12/02/2023 10:00:00 AM Scheduled Provider:Semaj QUINTEROS MD Location:[facility] Appointment Type:URO New Patient Future Scheduled Tests Radiology* XR Abdomen 1 View 08/06/23 [facility] [id number] NoteDischarge Instructions Given Worsening The following Patient Education Materials have been given to the patient: ~~ [facility]Material[facility] NoteDischarge Summary Admission and Discharge Information Admit Date/Time:10/08/2023 15:04 Admitting Physician - Vanita Richardson DO Admitting Diagnoses: Discharge Order Date Discharge Patient - Ordered -- 10/10/23 12:29:00 EDT Discharge Diagnoses 1. Labial abscess, 10/08/2023 2. CAD (coronary artery disease), 10/08/2023 3. Type II diabetes mellitus, 10/08/2023 4. Obesity, morbid, 10/08/2023 Vulvar mass, 10/10/2023 Vulvar pain, 10/10/2023 Procedure History PCI (08/20/2018), Abdominal hysterectomy (2018), Appendectomy (2018), Bilateral salpingo-oophorectomy, x2, Cardiac catheterization, Cardiac Stent, Dilation and curettage, Hernia repair x5, Hysterectomy, Incision AND drainage, kidney stone removal, lithotripsy. Hospital Course Significant Findings Persistent and enlarging left vulvar mass, vulvar pain despite multiple evaluation/treatments Procedures and Treatment Provided IV antibiotics administration. Left vulvar mass excision 24 hour IV Vacomycin and IV Unasyn administered. Patient reports left vulvar mass and pain is unchanged this morning. Exam under anesthesia and excision of left vulvar mass discussed. Excision of left vulvar mass performed and vulvar mass submitted for pathology evaluation. Patient recovering without any issues. Tolerating regular diet and ambulation without difficulty. Voiding spontaneously without difficulty. Minimal bleeding noted. Services Consulted Consult to Hospitalist - Ordered -- 10/08/23 17:38:00 EDT, comorbid conditions/diabetes, Consult and Co-manage Physical Exam Vitals & Measurements T: 36.8 ?C(Oral) TMIN: 36.2 ?C(Temporal Artery) TMAX: 36.9 ?C(Oral) HR: 89(Apical) RR: 18 BP: 131/89 SpO2: 97% HT: 160 cm WT: 105.6 kg Alert and Oriented x3 CV RRR Lungs CTAB Abd Soft, obese Ext No edema, no calf tenderness bilaterally 1x1.5cm in diameter firm left vulvar mass removed and submitted for pathology examination Tests Performed Pathology Tissue Exam -- Results Pending -- Please visit your patient portal for your results or contact your primary care physician. Discharge Plan Discharge Disposition Discharge To, Anticipated II - Home with responsible caregiver Discharged to - Home with family care Discharge Diet Discharge Diet(s): Regular (10/10/23 12:29:00) Discharge Medication List Prescriptions acetaminophen-oxycodone 325 mg-5 mg Tab, 1 tab(s), Oral, q6hr albuterol HFA 90 mcg/inh MDI, 2 puff(s), Inhalation, QID, PRN atorvastatin 80 mg Tab, 80 mg= 1 tab(s), Oral, Daily naproxen 500 mg Tab, 500 mg= 1 tab(s), Oral, BID, Not taking nitroglycerin 0.4% rectal ointment, See Instructions Percocet 5 mg-325 mg oral tablet, 1 tab(s), Oral, q6hr Zofran ODT 4 mg Tab-Dis, 4 mg= 1 tab(s), Oral, q8hr, PRN, Still taking, not as prescribed: patient prn medications Home Albuterol (Eqv-Ventolin HFA) 90 mcg/inh inhalation aerosol, 2 puff(s), Inhalation, q6hr aspirin 81 mg Chew Tab, 81 mg= 1 tab(s), Chewed, Daily Effexor XR 150 mg Cap-ER, 150 mg= 1 cap(s), Oral, Daily gabapentin 300 mg Cap, 300 mg= 1 cap(s), Oral, TID Jardiance 25 mg oral tablet, 25 mg= 1 tab(s), Oral, qAM losartan 25 mg Tab, 25 mg= 1 tab(s), Oral, Bedtime MetFORMIN (Eqv-Glucophage XR) 500 mg oral tablet, extended release, 1000 mg= 2 tab(s), Oral, BID Metoprolol tartrate 25 mg Tab, 25 mg= 1 tab(s), Oral, BID Nicoderm C-Q 7 mg/24 hr Patch-ER, 1 patch(es), Topical, Daily nitrofurantoin macrocrystals-monohydrate 100 mg Cap, 100 mg= 1 cap(s), Oral, BID Plavix 75 mg Tab, 75 mg= 1 tab(s), Oral, Daily Xanax 1 mg Tab, 1 mg= 1 tab(s), Oral, BID, PRN Follow-up With When Contact Information Vanita Richardson Within 4 [facility] [address] [address] Business (1) Additional Instructions: Please call to schedule your follow upGalion HospitalComment on above:Result Comment: Electronically Signed By: Vanita Richardson DO\.br\Date and Time Signed: 10/10/23 13:08 [id number] NoteProgress Note - Pharmacy Vancomycin Pharmacy to Dose Consult Note 1. Vanco Status: Vancomycin therapy has been discontinued. Vancomycin level(s) have been discontinued: Pharmacy vancomycin dosing service will sign off. Thank you for allowing us to participate in this patient's care. Please contact pharmacy if there are questions.[facility]07-[facility]-2024 Hospital Discharge instructions Follow Up Care 10/08/2023 14:57:06 With:Vanita Richardson Address: [address] [address] Business (1) When:4 weeks Comments:Please call to schedule your follow upCall for any problems.Call for fever > 100.5 FCall for severe abdominal painCall physician for heavy vaginal bleeding [facility] [phone] NoteProgress Note - Pharmacy Vancomycin Pharmacy to Dose Consult Note Indication: Skin and Skin Structure Infection Goal Range: AUC/CASSIUS: 400 - 600 RECOMMENDATIONS/ PLAN: Pharmacy consulted for vancomycin dosing for TISH VARGAS, a 42 Years old, Female who is being treated with vancomycin for labial abscess. 1. Vancomycin therapy is still active, today is day 1 of treatment. Patient is receiving [id number] mg IV 12hr. 2. No Vancomycin level has been drawn for this dosing regimen. 3. Initial Vancomycin Dosing Regimen: Vancomycin 1500 mg IV Q12hr 4. The next paired levels are scheduled. Peak at 0800 on 10/10/23 and Trough at 1600 on 10/10/23. We will follow patient renal function, vancomycin levels and doses with you during the course of therapy. Additional recommendations will appear in follow up notes. If you have any questions, please contact the pharmacy at [phone]. Age: 42 Years Allergies: Vicodin Weight:Last Documented Weight and Type of Scale Used Last Documented Weight Weight Measured: 106.2 kg (10/02/23 21:39:00) Type of Scale Used Weight Measured Type of Scale: Bed Scale (digital) (10/02/23 21:39:00) Height: Last Documented Height/Length Last Documented Height/Length Height/Length Measured: 160 cm (10/02/23 21:39:00) CrCl: >120 mL/min Labs: No qualifying data available.[facility]07-[facility]24 Miscellaneous Notes* Telephone Encounter - Jayne Todd - 10/07/2023 2:29 AM EDT ABIDA Juarez RN looking for Physician notes and D/C Summary . [facility]. , . * Telephone Encounter - Uyen Graf - 10/07/2023 2:29 AM EDT Request completed, sent recent notes and summaries [facility] encounter Note* Telephone Encounter - Jayne Todd - 10/07/2023 2:29 AM EDT ABIDA Juarez RN looking for Physician notes and D/C Summary . [facility]. , . [facility]07-[facility] Telephone encounter Note* Telephone Encounter - Uyen Graf - 10/07/2023 2:29 AM EDT Request completed, sent recent notes and summaries [facility]07-20-2024 Hospital Discharge instructions Patient Education 10/03/2023 00:40:25 Bartholin's Cyst Bartholin's Cyst A Bartholin's cyst is a fluid-filled sac that forms as a result of a blockage along the tube (duct)of the Bartholin's gland. Bartholin's glands are small [...] your cyst and whether it is infected. Infectioncauses symptoms to get more severe. How is [...] care provider who specializes in women's health (automatic print developer) for diagnosis and treatment. How is this [...] Follow these instructions at home: Medicines Take xgzs-bft-[id number] and prescription medicines only as told by your health care provider. If you were prescribed an antibiotic medicine, take it as told by your health care provider. Do notstop taking the antibiotic even if your condition [...] cyst from returning and to prevent other Bartholin'scysts from developing: ?Take a bath or shower [...] of a blockage along the duct of theBartholin's gland. If your cyst is small, not [...] provider. Document Revised: 07/30/2020 Document Reviewed: 07/30/2020 [employer] Patient Education 2022 [employer]. Follow Up Care 10/02/2023 21:36:31 With:Hieu Parish Address: [address] [address]- Business (1) When:10/06/2023 With:YANET JUNIOR Address: [address] [place] [phone] Business (1) When:10/06/2023 [facility]07-20-2024 NoteED Patient Education Note Obstetrics and Gynecology Bartholin's Cyst A Bartholin's cyst is a fluid-filled sac that forms as a result of a blockage along the tube (duct)of the Bartholin's gland. Bartholin's glands are small [...] your cyst and whether it is infected. Infectioncauses symptoms to get more severe. How is [...] care provider who specializes in women's health (automatic print developer) for diagnosis and treatment. How is this [...] these instructions at home: Medicines ? Take cufa-mal-cjoujcu and prescription medicines only as told by [...] You may take sitz baths several times aday. ? Apply heat to the affected area [...] getting burned. Do not fall asleep with theheating pad in place. General instructions ? If your cyst or abscess was drained, follow instructions from your health care provider about howto take care of your wound. Use feminine [...] cyst. ? You h (more content not included)...[facility]07-19-2024 Hospital Discharge instructions Patient Education 10/02/2023 13:34:25 Bartholin's Cyst, Mecg-wk-Focx Bartholin's Cyst A Bartholin's cyst is a [...] Follow these instructions at home: Medicines Take ycbf-std-vdrjvqg and prescription medicines only as told by [...] about how to prevent STIs and which formsof control to use. Keep all follow-up visits. [...] provider. Document Revised: 07/30/2020 Document Reviewed: 07/30/2020 [employer] Patient Education 2022 Datactics. Follow Up Care 10/02/2023 12:30:34 With:Hieu Parish Address: [address], [facility] [address] [place] [address]- Business (1) When:10/05/2023 13:33:45 Comments:Call to schedule a follow up appointment with an SERVICE LINE COORDINATOR for further management of care. Take the antibiotic in entirerty. With:YANET JUNIOR Address: [address] [place] [address] [phone] Business (1) When:Within 3 Day(s) [facility]07-19-2024 Evaluation + Plan noteExtracted from: Title:ED Note Author:Avila GUZMAN, Fito Castillo [...] day(s), # 20 tab(s), Refills(s) 0, Pharmacy: [facility]/pharmacy #[id number], 160, cm, 10/02/23 21:46:00 EDT, Height/Length Dosing, 106.2, kg, 10/02/23 21:46:00 EDT, Weight Dosing ondansetron, 4 mg = 1 tab(s), Tab-Dis, Oral, Once, Stop date 10/02/23 22:16:00 EDT, STAT, Start date 10/02/23 22:16:00 EDT, 10/02/23 22:16:00 EDT ondansetron, 4 mg = 1 tab(s), Oral, q6hr, # 12 tab(s), Refills(s) 0, Pharmacy: [facility]/pharmacy #[id number], 160, cm, 10/02/23 21:46:00 EDT, Height/Length Dosing, 106.2, kg, 10/02/23 21:46:00 EDT, Weight Dosing Future Appointments Appointment Date:12/02/2023 10:00:00 AM Scheduled Provider:Semaj QUINTEROS MD Location:[facility] Appointment Type:URO New Patient Future Scheduled Tests Radiology* XR Abdomen 1 View 08/06/23 [facility]07-19-2024 NoteED Patient Education Note Obstetrics and Gynecology [...] these instructions at home: Medicines ? Take jjwu-lgy-vqwrfat and prescription medicines only as told by [...] provider. Document Revised: 07/30/2020 Document Reviewed: 07/30/2020 [employer] Patient Education ? 2022 Datactics.[facility] 09-25-2023 Evaluation + Plan noteExtracted from: Title:ED Note Author:Gunnar Rangel DO Date:09/13 05/09 Gastritis (K29.70: Gastritis , unspecified, without bleeding) Ordered: promethazine, 25 mg = 1 tab(s), Oral, q4hr, X 3 day(s), # 18 tab(s), Refills(s) 0, Pharmacy: [facility]/pharmacy #[id number], 160, cm, 09/25/23 6:39:00 EDT, [...] Date:12/02/2023 10:00:00 AM Scheduled Provider:Semaj QUINTEROS MD Location:[facility] Appointment Type:URO New Patient Future Scheduled Tests Radiology* XR Abdomen 1 View 08/06/23 [facility]07-12-2024 Hospital Discharge instructions Follow Up Care 09/25/2023 06:34:35 With:YANET JUNIOR Address: [address] [place] [phone] Business (1) When:Within 3 Day(s) [facility]05-28-2024 Hospital Discharge instructions Patient Education 08/10/2023 22:15:29 Nonspecific Chest Pain, Adult, Shrq-yv-Qzek Nonspecific Chest Pain Chest pain can be [...] Follow these instructions at home: Medicines Take uvvd-awg-madqqzt and prescription medicines only as told by [...] ?Eating a heart-healthy diet. A diet and medical staff specialist (dietitian) can help you to learn [...] provider. Document Revised: 05/16/2021 Document Reviewed: 05/16/2021 [employer] Patient Education 2022 Datactics. Follow Up Care 08/10/2023 19:05:46 With:Koko Vasquez Address: [address] [place] [address]- Business (1) When:08/13/2023 21:40:29 Comments:Call for diagnosis based follow up With:AYNET JUNIOR Address: [address] [place] [phone] Business (1) When:08/13/2023 21:40:21 Comments:Call for diagnosis based follow up [facility]05-27-2024 Evaluation + Plan noteExtracted from: Title:ED Note [...] Date:12/02/2023 10:00:00 AM Scheduled Provider:Semaj QUINTEROS MD Location:[facility] Appointment Type:URO New Patient Future Scheduled Tests Radiology* XR Abdomen 1 View 08/06/23 [facility]05-23-2024 Hospital Discharge instructions Follow Up Care 08/06/2023 13:34:41 With:Semja QUINTEROS MD, URL Address: [address] [place] [address]- When: Unknown [facility] 05-23-2024 Evaluation + Plan note Future Scheduled Tests Radiology* XR Abdomen 1 View 08/06/[address] [facility] 05-16-2024 Evaluation + Plan noteExtracted from: Title:ED Note [...] day(s), # 15 cap(s), Refills(s) 0, Pharmacy: [facility]/pharmacy #[id number], 160, cm, 07/29/23 21:34:00 EDT, Height/Length Dosing, [...] q8hr, # 12 tab(s), Refills(s) 0, Pharmacy: [facility]/pharmacy #[id number], 160, cm, 07/29/23 21:34:00 EDT, [...] day(s), # 9 tab(s), Refills(s) 0, Pharmacy: [facility]/pharmacy #[id number], 160, cm, 07/29/23 21:34:00 EDT, [...] Diagnostic Tests Pending * Urine Culture 07/29/23 [facility]05-16-2024 Hospital Discharge instructions Patient Education 07/30/2023 02:22:55 Urinary Tract Infection, Adult, Tcsc-kz-Fenm Urinary Tract Infection, Adult A urinary tract [...] Follow these instructions at home: Medicines Take snlx-ouq-azbrscj and prescription medicines only as told by [...] provider. Document Revised: 10/12/2020 Document Reviewed: 10/12/2020 [employer] Patient Education 2022 Datactics. 07/30/2023 02:22:55 Flank Pain, Adult, Rsmi-fu-Fxeo Flank Pain, Adult Flank pain is pain [...] Rest as told by your doctor. Take vsgj-hun-arfxroq and prescription medicines only as told by [...] provider. Document Revised: 05/13/2021 Document Reviewed: 05/13/2021 [employer] Patient Education 2022 Datactics. Follow Up Care 07/29/2023 21:13:40 With:YANET JUNIOR Address: [address] [place] [address] [phone] Business (1) When:08/02/2023 Comments:Take the antibiotics as prescribed you have completed the course. Use the Pyridium, Zofran as prescribed as needed for nausea and burning. Please follow-up with your primary care doctor for further evaluation management. [facility]03-14-2024 Hospital Discharge instructions Patient Education 05/28/2023 15:54:36 [...] discomfort that you are feeling: Medicines Take kbjg-glg-cqepqei and prescription medicines only as told by [...] caused by passing a kidney stone. Take shji-mbq-mncdzvg and prescription medicines only as told by [...] provider. Document Revised: 11/04/2021 Document Reviewed: 11/04/2021 [employer] Patient Education 2022 Datactics. Follow Up Care 05/28/2023 12:58:24 With:YANET JUNIOR Address: [address] [place] [phone] Business (1) When:05/31/2023 15:22:50 [facility]03-14-2024 Evaluation + Plan noteExtracted from: Title:ED Note Author:Mireille THORNE StudentErik Date:05/28/23 Renal colic (N23: Unspecifie d renal colic) Ordered: acetaminophen-oxycodone, 1 tab(s), Oral, q6hr as needed for pain for 3 day(s), 15 tab(s), Refill(s) 0, [facility]/pharmacy #[id number], 160, cm, 05/28/23 13:08:00 EDT, [...] Daily, # 10 cap(s), Refills(s) 0, Pharmacy: [facility]/pharmacy #[id number], 160, cm, 05/28/23 13:08:00 EDT, Height/Length Dosing, 115, kg, 05/28/23 13:08:00 EDT, Weight Dosing CT Abdomen/Pelvis w/o Contrast UA With Cult Reflex [facility]08-15-2023 Hospital Discharge instructions Patient Education 10/28/2022 18:55:13 [...] including vitamins, herbs, eye drops, creams, and iiuv-nio-nggznnj medicines. Any problems you or family members [...] provider tells you to take them. Taking uftv-enr-orgmqxb medicines, vitamins, herbs, and supplements. Tests You [...] provider. Document Revised: 01/27/2022 Document Reviewed: 11/04/2021 [employer] Patient Education 2022 Datactics. 10/28/2022 18:55:13 Laser Therapy for Kidney Stones, [...] Follow these instructions at home: Medicines Take haqq-ygk-wjuedox and prescription medicines only as told by [...] prevent or treat constipation, such as: ?Take ejhn-wqr-sevrnhw or prescription medicines. ?Eat foods that are [...] amounts of blood in your urine. Take lhiv-isv-tkqhilz and prescription medicines only as told by [...] provider. Document Revised: 11/04/2021 Document Reviewed: 11/04/2021 [employer] Patient Education 2022 Datactics. 10/28/2022 18:55:13 Kidney Stones, Hpyf-ti-Upbw Kidney Stones Kidney stones are rock-like masses [...] Follow these instructions at home: Medicines Take lngq-wzi-yydfasg and prescription medicines only as told by [...] Kidney Foundation (NKF): www.kidney.org [facility] (F): www.urologyhealth.org Contact a doctor if: You have [...] provider. Document Revised: 11/04/2021 Document Reviewed: 11/04/2021 [employer] Patient Education 2022 Datactics. 10/28/2022 18:55:13 Flank Pain, Adult, Xoxk-ul-Ujjl Flank Pain, Adult Flank pain is pain [...] Rest as told by your doctor. Take hxhg-jid-kjcjyyi and prescription medicines only as told by [...] provider. Document Revised: 05/13/2021 Document Reviewed: 05/13/2021 [employer] Patient Education 2022 Datactics. Follow Up Care 10/28/2022 15:05:36 With:Dallas MIRANDA Address: [facility] [address] [place] [address]- Business (1) When:10/31/2022 18:38:02 With:YANET JUNIOR Address: [address] [place] [phone] Business (1) When:Within 3 Day(s) [facility]08-12-2023 Hospital Discharge instructions Patient Education 10/25/2022 12:11:07 [...] Follow these instructions at home: Medicines Take exss-bls-dvidhzc and prescription medicines only as told by [...] provider. Document Revised: 11/20/2021 Document Reviewed: 11/04/2021 [employer] Patient Education 2022 Datactics. 10/25/2022 12:11:07 Nonspecific Chest Pain, Adult, Iwax-ke-Ohha Nonspecific Chest Pain Chest pain can be [...] Follow these instructions at home: Medicines Take gkjx-ygp-mwkasjf and prescription medicines only as told by [...] ?Eating a heart-healthy diet. A diet and medical staff specialist (dietitian) can help you to learn [...] provider. Document Revised: 05/16/2021 Document Reviewed: 05/16/2021 [email or web address] Patient Education 2022 Datactics. Follow Up Care 10/25/2022 09:30:56 With:Koko Vasquez Address: [address] [place] [address]- Business (1) When:10/28/2022 11:22:14 With:Dallas MIRANDA Address: [facility] [address] [place] [address]- Business (1) When:10/28/2022 11:22:13 With:YANET JUNIOR Address: [address] [place] [address] [phone] Business (1) When:10/28/2022 11:22:02 Comments:Follow-up with your primary care provider in 3 to 5 days. If symptoms worsen, do not improve, or new symptoms arise please report back to emergency department for further evaluation. [facility]08-12-2023 Evaluation + Plan note Diagnostic Tests Pending * HgbA1c 10/25/22 [facility]12-20-2022 Hospital Discharge instructions Patient Education 03/04/2022 20:32:49 [...] Follow these instructions at home: Medicines Take yaxs-xin-ynpnvqa and prescription medicines only as told by [...] 12/10/2005 Document Revised: 09/02/2018 Document Reviewed: 09/02/2018 [employer] Patient Education 2020 Datactics. Follow Up Care 03/04/2022 18:23:11 With:YANET JUNIOR Address: [address] [place] [phone] Business (1) When:03/06/2022 20:05:36 [facility]12-20-2022 Evaluation + Plan noteExtracted from: Title:ED Note [...] date 03/04/22 19:33:00 EST, 03/04/22 19:33:00 EST [facility]10-14-2022 Evaluation + Plan noteExtracted from: Title:ED Note [...] pain, # 20 tab(s), Refills(s) 0, Pharmacy: [facility]/pharmacy #[id number], 162, cm, 12/27/21 2:03:00 EDT, Height/Length Dosing, 118, kg, 12/27/21 2:03:00 EDT, Weight Dosing ondansetron, 4 mg = 1 tab(s), Oral, q8hr, PRN Nausea/Vomiting, # 12 tab(s), Refills(s) 0, Pharmacy: [facility]/pharmacy #[id number], 162, cm, 12/27/21 2:03:00 EDT, [...] Tests Radiology* CT Maxillofacial w/o Contrast 01/01/22 [facility]10-14-2022 Hospital Discharge instructions Patient Education 12/27/2021 03:52:01 Abdominal Pain, Adult, Wtsq-qv-Care Abdominal Pain, Adult Many things can cause belly (abdominal) pain. Most times, belly pain is not dangerous. Many cases of belly pain can be watched and treated at home. Sometimes, though, belly pain is serious. Your doctor will try to find the cause of your belly pain. Follow these instructions at home: Medicines Take vryf-qrr-exbwguo and prescription medicines only as told by [...] your belly pain for any changes. Take cncv-rgb-zmvwlqu and prescription medicines only as told by [...] 08/18/2008 Document Revised: 07/11/2019 Document Reviewed: 07/11/2019 [employer] Patient Education 2020 Datactics. Follow Up Care 12/27/2021 01:56:39 With:YANET JUNIOR Address: [address] [place] [address] [phone] Business (1) When:12/30/2021 Comments:You can use the naproxen every 12 hours and the Zofran every 6 hours as needed for nausea and vomiting. Please follow-up with your primary care doctor in the next 2 to 3 days. Please return the ED for any new or worsening symptoms. 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 Diabetes (E11.9: Type 2 diabetes mellitus without complications) 5. HTN (hypertension) (I10: Essential (primary) hypertension) 6. History of VT (myocardial infarction) (I25.2: Old myocardial infarction) 7. [...] smoker with history of coronary artery disease, VT, status post stent x2, obstructive sleep apnea, [...] artery disease (I25.10: Atherosclerotic heart disease of creek coronary artery without angina pectoris) Status post stents x2. Continue on aspirin, Plavix, metoprolol and Lipitor. Ordered: Observation Care Discharge Day 4. Diabetes (E11.9: Type 2 diabetes mellitus without complications) Continue on insulin and metformin. Ordered: 5. HTN (hypertension) (I10: Essential (primary) hypertension) On metoprolol and losartan. 6. History of VT (myocardial infarction) (I25.2: Old myocardial infarction) Historical. [...] from: Title:Admission H & P Author:TERRI HERRERA, Yohanafo Date:10/09/21 40-year-old morbidly obese C aucasian female cigarette smoker with history of coronary artery disease, VT, status post stent x2, obstructive sleep apnea, [...] wall Initial Observation Care/Day Moderate 50 min [id number] 2. Anxiety (F41.9: Anxiety disorder, unspecified) May be contributing to above. Continue on Xanax as needed. Ordered: Initial Observation Care/Day Moderate 50 min [address]34 3. Coronary artery disease (I25.10: Atherosclerotic heart disease of creek coronary artery without angina pectoris) Status post VT status post stents x2. Continue on aspirin, Plavix, Lipitor and metoprolol. Ordered: Initial Observation Care/Day Moderate 50 min 46748 4. Diabetes (E11.9: Type 2 diabetes mellitus without complications) Continue on Lantus and metformin. Started patient on sliding scale insulin. Ordered: Initial Observation Care/Day Moderate 50 min [address]7215 5. HTN (hypertension) (I10: Essential (primary) hypertension) Continue on metoprolol, losartan. 6. History of VT (myocardial infarction) (I25.2: Old myocardial infarction) Historical. [...] artery disease (I25.10: Atherosclerotic heart disease of creek coronary artery without angina pectoris) 4. Diabetes (E11.9: Type 2 diabetes mellitus without complications) 5. HTN (hypertension) (I10: Essential (primary) hypertension) 6. History of VT (myocardial infarction) (I25.2: Old myocardial infarction) 7. [...] Level PT & PTT Rapid COVID Antigen ([facility]) Saline Lock Insert Troponin 0 Hr. Troponin 3 Hr. Troponin 6 Hr. Troponin 9 Hr. XR Chest Single View Future Appointments Appointment Date:10/22/2021 11:00:00 AM Scheduled Provider:Dorothy ALMANZAR CNP Location:[facility] Appointment Type:Cardiology Inpatient Follow Up (FT) [facility]07-28-2022 Hospital Discharge instructions Patient Education 10/10/2021 10:33:41 Chest Wall Pain, Nqdf-jx-Mwjr Chest Wall Pain Chest wall pain is [...] are safe for you. General instructions Take cwwf-hyf-rswrtxl and prescription medicines only as told by [...] 08/18/2008 Document Revised: 09/02/2018 Document Reviewed: 09/02/2018 [employer] Patient Education 2020 Datactics. Follow Up Care 10/09/2021 14:07:15 With:YANET JUNIOR Address: [address] [place] [phone] Business (1) When:10/21/2021 20:00:00 With:Koko Vasquez Address: [address] [place] [address]- Business (1) When:10/22/2021 11:00:00 Comments:Appointment with Dorothy Almanzar CNP [facility]06-08-2022 NotePROCEDURE: XR ANKLE LT MIN 3 V, [...] by: ERUM DE LA CRUZ Date: 2021-08-21 17:19[facility]06-08-2022 NotePROCEDURE: XR ANKLE LT MIN [...] by: ERUM DE LA CRUZ Date: 2021-08-21 17:19[facility]03-25-2022 Hospital Discharge instructions Patient Education 06/07/2021 20:49:54 Blepharitis, Nfcw-jj-Volb Blepharitis Blepharitis is swelling of the eyelids. [...] 12/09/2008 Document Revised: 08/30/2018 Document Reviewed: 08/30/2018 [employer] Patient Education 2020 Dat[employer]ics. Follow Up Care 06/07/2021 20:31:14 With:YANET JUNIOR CNP Address:Unknown When:06/10/2021 [facility]03-25-2022 Evaluation + Plan noteExtracted from: Title:ED Note Author:Phoebe Dubon PA-C Date :06/07/21 1. Unspecified blepharitis l eft upper eyelid (H01.004: Unspecified blepharitis left upper eyelid) Ordered: erythromycin ophthalmic, 0.5 in, OPTH, QID for 7 day(s), 3.5 gm, Refill(s) 0, [id number], 165, cm, 06/07/21 20:41:00 EDT, Height/Length Dosing, 121, kg, 06/07/21 20:41:00 EDT, Weight Dosing [facility] App[facility]ments Appointment Date:12/02/2023 10:00:00 AM Scheduled Provider:Semaj QUINTEROS MD Location:[facility] Appointment Type:URO New Patient Future Scheduled Tests Radiology* XR Abdomen 1 View 08/06/23 [facility] Future Appointments Appointment Date:01/13/2024 07:00:00 AM Scheduled Provider: Location:.[facility] Appointment Type:CT Abdomen/Pelvis Combo (FT) Appointment Date:01/15/2024 01:30:00 PM Scheduled Provider: Location:.[facility] Appointment Type:MA Screen (FT) Appointment Date:01/18/2024 01:20:00 PM Scheduled Provider:Gunnar Clement MD Location:[facility] Appointment Type: Future Scheduled Tests Radiology* XR Abdomen 1 View 08/06/23 * CT Abdomen/Pelvis w/ Contrast 01/13/24 * MA Mamm Screen w/CAD if perf and 3D Naveed 01/15/24 [facility] Evaluation + Plan note Future Appointments Appointment Date:01/15/2024 01:30:00 PM Scheduled Provider: Location:.[facility] Appointment Type:MA Screen (FT) Appointment Date:01/18/2024 01:20:00 PM Scheduled Provider:Gunnar Clement MD Location:[facility] Appointment Type:GS Future Scheduled Tests Radiology* XR Abdomen 1 View 08/06/23 * MA Mamm Screen w/CAD if perf and 3D Naveed 01/15/24 [facility] Evaluation + Plan note Future Appointments Appointment Date:01/26/2024 11:20:00 AM Scheduled Provider:Gunnar Clement MD Location:[facility] Appointment Type: Appointment Date:01/29/2024 03:00:00 PM Scheduled Provider: Location:.[facility] Appointment Type:MA Screen (FT) Future Scheduled Tests Radiology* XR Abdomen 1 View 08/06/23 * MA Mamm Screen w/CAD if perf and 3D Naveed 01/29/24 [facility] Wall Evaluation + Plan note Future Appointments Appointment Date:02/22/2024 02:40:00 PM Scheduled Provider:Gunnar Clement MD Location:[facility] Appointment Type:[place] [id number] Future Scheduled Tests Radiology* XR Abdomen 1 View 08/06/23 [facility] Evaluation note* Diagnosis Gastroesophageal reflux disease, unspecified whether esophagitis present- Primary Gastro-esophageal reflux disease without esophagitis Esophageal reflux documented in this encounter [facility] HealthcareEvaluation noteNo assessment information availableFayette County [facility] Work Phone: Evaluation note* Diagnosis Type 2 diabetes mellitus with diabetic polyneuropathy, with long-term current use of insulin (CMS/HCC)- Primary Primary hypertension (CMS/HCC) Unspecified essential hypertension Diabetes mellitus type 2, insulin dependent (CMS/HCC)- Primary Type 2 diabetes mellitus with diabetic polyneuropathy, with long-term current use of insulin (CMS/HCC) Primary hypertension (CMS/HCC) Unspecified essential hypertension Coronary artery disease involving creek coronary artery of creek heart without angina pectoris (CMS/HCC) Tobacco use disorder Class 3 severe obesity due to excess calories without serious comorbidity with body mass index (BMI) of 40.0 to 44.9 in adult (CMS/HCC) Pulmonary emphysema, unspecified emphysema type (CMS/HCC) Wheezing Diabetes mellitus type 2, insulin dependent (CMS/HCC)- Primary Yeast infection Bilateral nephrolithiasis Primary hypertension (CMS/HCC) Unspecified essential hypertension Coronary artery disease involving creek coronary artery of creek heart without angina pectoris (CMS/HCC) Obesity (BMI 30-39.9) Ventral hernia without obstruction or gangrene- Primary Unspecified ventral hernia without mention of obstruction or gangrene Diabetes mellitus type 2, insulin dependent (CMS/HCC) Type 2 diabetes mellitus with diabetic polyneuropathy, with long-term current use of insulin (CMS/HCC) Primary hypertension (CMS/HCC) Unspecified essential hypertension Coronary artery disease involving creek coronary artery of creek heart without angina pectoris (CMS/HCC) Gastroesophageal reflux disease, unspecified whether esophagitis present Obesity (BMI 30-39.9) Tobacco use disorder Generalized anxiety disorder with panic attacks (CMS/HCC) documented in this encounter [facility] HealthcareEvaluation note* Diagnosis Type 2 diabetes mellitus with diabetic polyneuropathy, with long-term current use of insulin ([facility])- Primary Primary hypertension (CMS/HCC) Unspecified essential hypertension Diabetes mellitus type 2, insulin dependent ([facility]/HCC)- Primary Type 2 diabetes mellitus with diabetic polyneuropathy, with long-term current use of insulin (CMS/HCC) Primary hypertension (CMS/HCC) Unspecified essential hypertension Coronary artery disease involving creek coronary artery of creek heart without angina pectoris ([facility]) Tobacco use disorder Class 3 severe obesity due to excess calories without serious comorbidity with body mass index (BMI) of 40.0 to 44.9 in adult ([facility]) Pulmonary emphysema, unspecified emphysema type (CMS/HCC) Wheezing Diabetes mellitus type 2, insulin dependent ([facility])- Primary Yeast infection Bilateral nephrolithiasis Primary hypertension ([facility]) Unspecified essential hypertension Coronary artery disease involving creek coronary artery of creek heart without angina pectoris ([facility]) Obesity (BMI 30-39.9) Ventral hernia without obstruction or gangrene- Primary Unspecified ventral hernia without mention of obstruction or gangrene Diabetes mellitus type 2, insulin dependent ([facility] [facility] Type 2 diabetes mellitus with diabetic polyneuropathy, with long-term current use of insulin ([facility]) Primary hypertension ([facility]) Unspecified essential hypertension Coronary artery disease involving creek coronary artery of creek heart without angina pectoris ([facility]) Gastroesophageal reflux disease, unspecified whether esophagitis present Obesity (BMI 30-39.9) Tobacco use disorder Generalized anxiety disorder with panic attacks ([facility]) Diabetes mellitus type 2, insulin dependent ([facility])- Primary documented in this encounter [facility] HealthcareEvaluation note* Diagnosis Type 2 diabetes mellitus with diabetic polyneuropathy, with long-term current use of insulin ([facility])- Primary Primary hypertension ([facility]/HCC) Unspecified essential hypertension Diabetes mellitus type 2, insulin dependent ([facility])- Primary Type 2 diabetes mellitus with diabetic polyneuropathy, with long-term current use of insulin ([facility]) Primary hypertension ([facility]) Unspecified essential hypertension Coronary artery disease involving creek coronary artery of creek heart without angina pectoris ([facility]) Tobacco use disorder Class 3 severe obesity due to excess calories without serious comorbidity with body mass index (BMI) of 40.0 to 44.9 in adult ([facility]) Pulmonary emphysema, unspecified emphysema type (CMS/HCC) Wheezing Diabetes mellitus type 2, insulin dependent ([facility]/HCC)- Primary Yeast infection Bilateral nephrolithiasis Primary hypertension ([facility]/HCC) Unspecified essential hypertension Coronary artery disease involving creek coronary artery of creek heart without angina pectoris (CMS/HCC) Obesity (BMI 30-39.9) Ventral hernia without obstruction or gangrene- Primary Unspecified ventral hernia without mention of obstruction or gangrene Diabetes mellitus type 2, insulin dependent ([facility]) Type 2 diabetes mellitus with diabetic polyneuropathy, with long-term current use of insulin ([facility]) Primary hypertension ([facility]/HCC) Unspecified essential hypertension Coronary artery disease involving creek coronary artery of creek heart without angina pectoris ([facility]) Gastroesophageal reflux disease, unspecified whether esophagitis present Obesity (BMI 30-39.9) Tobacco use disorder Generalized anxiety disorder with panic attacks ([facility]) Nausea- Primary Nausea alone documented in this encounter [facility] HealthcareEvaluation note* Diagnosis Type 2 diabetes mellitus with diabetic polyneuropathy, with long-term current use of insulin ([facility])- Primary Primary hypertension ([facility]/HCC) Unspecified essential hypertension Diabetes mellitus type 2, insulin dependent ([facility])- Primary Type 2 diabetes mellitus with diabetic polyneuropathy, with long-term current use of insulin ([facility]) Primary hypertension ([facility]) Unspecified essential hypertension Coronary artery disease involving creek coronary artery of creek heart without angina pectoris ([facility]) Tobacco use disorder Class 3 severe obesity due to excess calories without serious comorbidity with body mass index (BMI) of 40.0 to 44.9 in adult ([facility]) Pulmonary emphysema, unspecified emphysema type (CMS/HCC) Wheezing Diabetes mellitus type 2, insulin dependent ([facility])- Primary Yeast infection Bilateral nephrolithiasis Primary hypertension ([facility]) Unspecified essential hypertension Coronary artery disease involving creek coronary artery of creek heart without angina pectoris ([facility]/HCC) Obesity (BMI 30-39.9) Ventral hernia without obstruction or gangrene- Primary Unspecified ventral hernia without mention of obstruction or gangrene Diabetes mellitus type 2, insulin dependent ([facility]) Type 2 diabetes mellitus with diabetic polyneuropathy, with long-term current use of insulin ([facility]) Primary hypertension ([facility]/HCC) Unspecified essential hypertension Coronary artery disease involving creek coronary artery of creek heart without angina pectoris ([facility]/HCC) Gastroesophageal reflux disease, unspecified whether esophagitis present Obesity (BMI 30-39.9) Tobacco use disorder Generalized anxiety disorder with panic attacks ([facility]) Tobacco use disorder- Primary documented in this encounter [facility] HealthcareEvaluation note* Diagnosis Type 2 diabetes mellitus with diabetic polyneuropathy, with long-term current use of insulin ([facility])- Primary Primary hypertension ([facility]) Unspecified essential hypertension Diabetes mellitus type 2, insulin dependent ([facility])- Primary Type 2 diabetes mellitus with diabetic polyneuropathy, with long-term current use of insulin ([facility]) Primary hypertension ([facility]) Unspecified essential hypertension Coronary artery disease involving creek coronary artery of creek heart without angina pectoris ([facility]) Tobacco use disorder Class 3 severe obesity due to excess calories without serious comorbidity with body mass index (BMI) of 40.0 to 44.9 in adult ([facility]) Pulmonary emphysema, unspecified emphysema type ([facility]) Wheezing Diabetes mellitus type 2, insulin dependent ([facility])- Primary Yeast infection Bilateral nephrolithiasis Primary hypertension ([facility]) Unspecified essential hypertension Coronary artery disease involving creek coronary artery of creek heart without angina pectoris ([facility]) Obesity (BMI 30-39.9) Ventral hernia without obstruction or gangrene- Primary Unspecified ventral hernia without mention of obstruction or gangrene Diabetes mellitus type 2, insulin dependent ([facility]) Type 2 diabetes mellitus with diabetic polyneuropathy, with long-term current use of insulin ([facility]) Primary hypertension ([facility]) Unspecified essential hypertension Coronary artery disease involving creek coronary artery of creek heart without angina pectoris ([facility]) Gastroesophageal reflux disease, unspecified whether esophagitis present Obesity (BMI 30-39.9) Tobacco use disorder Generalized anxiety disorder with panic attacks ([facility]) Yeast infection- Primary documented in this encounter [facility] HealthcareEvaluation note* Diagnosis Type 2 diabetes mellitus with diabetic polyneuropathy, with long-term current use of insulin ([facility])- Primary Primary hypertension ([facility]) Unspecified essential hypertension Diabetes mellitus type 2, insulin dependent ([facility])- Primary Type 2 diabetes mellitus with diabetic polyneuropathy, with long-term current use of insulin ([facility]) Primary hypertension ([facility]) Unspecified essential hypertension Coronary artery disease involving creek coronary artery of creek heart without angina pectoris ([facility]) Tobacco use disorder Class 3 severe obesity due to excess calories without serious comorbidity with body mass index (BMI) of 40.0 to 44.9 in adult ([facility]) Pulmonary emphysema, unspecified emphysema type ([facility]/HCC) Wheezing Diabetes mellitus type 2, insulin dependent ([facility])- Primary Yeast infection Bilateral nephrolithiasis Primary hypertension ([facility]) Unspecified essential hypertension Coronary artery disease involving creek coronary artery of creek heart without angina pectoris ([facility]) Obesity (BMI 30-39.9) Ventral hernia without obstruction or gangrene- Primary Unspecified ventral hernia without mention of obstruction or gangrene Diabetes mellitus type 2, insulin dependent ([facility]) Type 2 diabetes mellitus with diabetic polyneuropathy, with long-term current use of insulin ([facility]) Primary hypertension ([facility]) Unspecified essential hypertension Coronary artery disease involving creek coronary artery of creek heart without angina pectoris ([facility]) Gastroesophageal reflux disease, unspecified whether esophagitis present Obesity (BMI 30-39.9) Tobacco use disorder Generalized anxiety disorder with panic attacks ([facility]) Type 2 diabetes mellitus with diabetic polyneuropathy, with long-term current use of insulin ([facility])- Primary documented in this encounter [facility] HealthcareEvaluation note* Diagnosis Type 2 diabetes mellitus with diabetic polyneuropathy, with long-term current use of insulin ([facility])- Primary Primary hypertension ([facility]) Unspecified essential hypertension Diabetes mellitus type 2, insulin dependent ([facility])- Primary Type 2 diabetes mellitus with diabetic polyneuropathy, with long-term current use of insulin ([facility]) Primary hypertension ([facility]) Unspecified essential hypertension Coronary artery disease involving creek coronary artery of creek heart without angina pectoris ([facility]) Tobacco use disorder Class 3 severe obesity due to excess calories without serious comorbidity with body mass index (BMI) of 40.0 to 44.9 in adult ([facility]) Pulmonary emphysema, unspecified emphysema type ([facility]/HCC) Wheezing Diabetes mellitus type 2, insulin dependent ([facility])- Primary Yeast infection Bilateral nephrolithiasis Primary hypertension ([facility]) Unspecified essential hypertension Coronary artery disease involving creek coronary artery of creek heart without angina pectoris ([facility]) Obesity (BMI 30-39.9) Ventral hernia without obstruction or gangrene- Primary Unspecified ventral hernia without mention of obstruction or gangrene Diabetes mellitus type 2, insulin dependent ([facility]) Type 2 diabetes mellitus with diabetic polyneuropathy, with long-term current use of insulin ([facility]) Primary hypertension ([facility]) Unspecified essential hypertension Coronary artery disease involving creek coronary artery of creek heart without angina pectoris ([facility]) Gastroesophageal reflux disease, unspecified whether esophagitis present Obesity (BMI 30-39.9) Tobacco use disorder Generalized anxiety disorder with panic attacks ([facility]) Diabetes mellitus type 2, insulin dependent ([facility])- Primary documented in this encounter [facility] HealthcareEvaluation note* Diagnosis Type 2 diabetes mellitus with diabetic polyneuropathy, with long-term current use of insulin ([facility])- Primary Primary hypertension ([facility]) Unspecified essential hypertension Diabetes mellitus type 2, insulin dependent ([facility])- Primary Type 2 diabetes mellitus with diabetic polyneuropathy, with long-term current use of insulin ([facility]) Primary hypertension ([facility]) Unspecified essential hypertension Coronary artery disease involving creek coronary artery of creek heart without angina pectoris ([facility]) Tobacco use disorder Class 3 severe obesity due to excess calories without serious comorbidity with body mass index (BMI) of 40.0 to 44.9 in adult ([facility]) Pulmonary emphysema, unspecified emphysema type ([facility]) Wheezing Diabetes mellitus type 2, insulin dependent ([facility])- Primary Yeast infection Bilateral nephrolithiasis Primary hypertension ([facility]) Unspecified essential hypertension Coronary artery disease involving creek coronary artery of creek heart without angina pectoris ([facility]) Obesity (BMI 30-39.9) Ventral hernia without obstruction or gangrene- Primary Unspecified ventral hernia without mention of obstruction or gangrene Diabetes mellitus type 2, insulin dependent ([facility]) Type 2 diabetes mellitus with diabetic polyneuropathy, with long-term current use of insulin ([facility]) Primary hypertension ([facility]) Unspecified essential hypertension Coronary artery disease involving creek coronary artery of creek heart without angina pectoris ([facility]) Gastroesophageal reflux disease, unspecified whether esophagitis present Obesity (BMI 30-39.9) Tobacco use disorder Generalized anxiety disorder with panic attacks ([facility]) Internal hemorrhoid- Primary Internal hemorrhoids without mention of complication documented in this encounter [facility] HealthcareEvaluation note* Diagnosis Type 2 diabetes mellitus with diabetic polyneuropathy, with long-term current use of insulin ([facility])- Primary Primary hypertension ([facility]) Unspecified essential hypertension Diabetes mellitus type 2, insulin dependent ([facility])- Primary Type 2 diabetes mellitus with diabetic polyneuropathy, with long-term current use of insulin ([facility]) Primary hypertension ([facility]) Unspecified essential hypertension Coronary artery disease involving creek coronary artery of creek heart without angina pectoris ([facility]) Tobacco use disorder Class 3 severe obesity due to excess calories without serious comorbidity with body mass index (BMI) of 40.0 to 44.9 in adult ([facility]) Pulmonary emphysema, unspecified emphysema type ([facility]) Wheezing Diabetes mellitus type 2, insulin dependent ([facility])- Primary Yeast infection Bilateral nephrolithiasis Primary hypertension ([facility]) Unspecified essential hypertension Coronary artery disease involving creek coronary artery of creek heart without angina pectoris ([facility]) Obesity (BMI 30-39.9) Ventral hernia without obstruction or gangrene- Primary Unspecified ventral hernia without mention of obstruction or gangrene Diabetes mellitus type 2, insulin dependent ([facility]) Type 2 diabetes mellitus with diabetic polyneuropathy, with long-term current use of insulin ([facility]) Primary hypertension ([facility]) Unspecified essential hypertension Coronary artery disease involving creek coronary artery of creek heart without angina pectoris ([facility]) Gastroesophageal reflux disease, unspecified whether esophagitis present Obesity (BMI 30-39.9) Tobacco use disorder Generalized anxiety disorder with panic attacks ([facility]) Wheezing documented in this encounter [facility]Evaluation [facility]* Diagnosis Wheezing Pulmonary emphysema, unspecified emphysema type ([facility]) documented in this encounter [facility]Evaluation note* Diagnosis Coronary artery disease involving creek coronary artery of creek heart without angina pectoris ([facility])- Primary Nausea Nausea alone documented in this encounter [facility]Evaluation note* Diagnosis Type 2 diabetes mellitus without complications ([facility]) documented in this encounter [facility]* Diagnosis Nausea- Primary Nausea alone Diabetes mellitus type 2, insulin dependent ([facility]) Yeast infection documented in this encounter [facility]* Diagnosis Type 2 diabetes mellitus without complications ([facility]) documented in this encounter [facility]* Diagnosis Type 2 diabetes mellitus with diabetic polyneuropathy, with long-term current use of insulin ([facility])- Primary Primary hypertension ([facility]) Unspecified essential hypertension Diabetes mellitus type 2, insulin dependent ([facility])- Primary Type 2 diabetes mellitus with diabetic polyneuropathy, with long-term current use of insulin ([facility]) Primary hypertension ([facility]) Unspecified essential hypertension Coronary artery disease involving creek coronary artery of creek heart without angina pectoris ([facility]) Tobacco use disorder Class 3 severe obesity due to excess calories without serious comorbidity with body mass index (BMI) of 40.0 to 44.9 in adult ([facility]) Pulmonary emphysema, unspecified emphysema type ([facility]) Wheezing Diabetes mellitus type 2, insulin dependent ([facility])- Primary Yeast infection Bilateral nephrolithiasis Primary hypertension ([facility]) Unspecified essential hypertension Coronary artery disease involving creek coronary artery of creek heart without angina pectoris ([facility]) Obesity (BMI 30-39.9) Ventral hernia without obstruction or gangrene- Primary Unspecified ventral hernia without mention of obstruction or gangrene Diabetes mellitus type 2, insulin dependent ([facility]) Type 2 diabetes mellitus with diabetic polyneuropathy, with long-term current use of insulin ([facility]) Primary hypertension ([facility] Unspecified essential hypertension Coronary artery disease involving creek coronary artery of creek heart without angina pectoris ([facility]) Gastroesophageal reflux disease, unspecified whether esophagitis present Obesity (BMI 30-39.9) Tobacco use disorder Generalized anxiety disorder with panic attacks ([facility]) Type 2 diabetes mellitus with diabetic polyneuropathy, with long-term current use of insulin ([facility])- Primary Major depressive disorder, recurrent, moderate ([facility]) Major depressive disorder, recurrent episode, moderate TRUONG on CPAP Obstructive sleep apnea, adult Coronary artery disease involving creek coronary artery of creek heart without angina pectoris ([facility]) Primary hypertension ([facility]) Unspecified essential hypertension Gastroesophageal reflux disease, unspecified whether esophagitis present Ventral hernia without obstruction or gangrene Unspecified ventral hernia without mention of obstruction or gangrene Diabetes mellitus type 2, insulin dependent ([facility]) Class 2 severe obesity due to excess calories with serious comorbidity in adult, unspecified BMI ([facility]) Anxiety and depression ([facility]) Generalized anxiety disorder with panic attacks ([facility]) Tobacco use disorder Mixed hyperlipidemia ([facility]) Mixed hyperlipidemia Type 2 diabetes mellitus without complications ([facility]) Encounter for screening mammogram for malignant neoplasm of breast Diabetic neuropathy, painful ([facility]/HCC) Type II or unspecified type diabetes mellitus with neurological manifestations, not stated as uncontrolled Vitamin deficiency Unspecified vitamin deficiency Easy bruising Other symptoms involving skin and integumentary tissues Atherosclerotic heart disease of creek coronary artery without angina pectoris ([facility]) Pulmonary emphysema, unspecified emphysema type (CMS/HCC) Type 2 diabetes mellitus with diabetic neuropathy, unspecified (CMS/HCC) documented in this encounter [facility] HealthcareEvaluation note* Diagnosis Type 2 diabetes mellitus with diabetic polyneuropathy, with long-term current use of insulin ([facility])- Primary Primary hypertension (CMS/HCC) Unspecified essential hypertension Diabetes mellitus type 2, insulin dependent ([facility])- Primary Type 2 diabetes mellitus with diabetic polyneuropathy, with long-term current use of insulin ([facility]) Primary hypertension ([facility] Unspecified essential hypertension Coronary artery disease involving creek coronary artery of creek heart without angina pectoris ([facility]) Tobacco use disorder Class 3 severe obesity due to excess calories without serious comorbidity with body mass index (BMI) of 40.0 to 44.9 in adult ([facility]) Pulmonary emphysema, unspecified emphysema type (CMS/HCC) Wheezing Diabetes mellitus type 2, insulin dependent ([facility])- Primary Yeast infection Bilateral nephrolithiasis Primary hypertension ([facility]) Unspecified essential hypertension Coronary artery disease involving creek coronary artery of creek heart without angina pectoris ([facility]) Obesity (BMI 30-39.9) Ventral hernia without obstruction or gangrene- Primary Unspecified ventral hernia without mention of obstruction or gangrene Diabetes mellitus type 2, insulin dependent ([facility]) Type 2 diabetes mellitus with diabetic polyneuropathy, with long-term current use of insulin ([facility]) Primary hypertension ([facility]) Unspecified essential hypertension Coronary artery disease involving creek coronary artery of creek heart without angina pectoris ([facility]) Gastroesophageal reflux disease, unspecified whether esophagitis present Obesity (BMI 30-39.9) Tobacco use disorder Generalized anxiety disorder with panic attacks ([facility]) Type 2 diabetes mellitus with diabetic polyneuropathy, with long-term current use of insulin ([facility])- Primary Major depressive disorder, recurrent, moderate ([facility]) Major depressive disorder, recurrent episode, moderate TRUONG on CPAP Obstructive sleep apnea, adult Coronary artery disease involving creek coronary artery of creek heart without angina pectoris ([facility]) Primary hypertension ([facility]) Unspecified essential hypertension Gastroesophageal reflux disease, unspecified whether esophagitis present Ventral hernia without obstruction or gangrene Unspecified ventral hernia without mention of obstruction or gangrene Diabetes mellitus type 2, insulin dependent ([facility]) Class 2 severe obesity due to excess calories with serious comorbidity in adult, unspecified BMI ([facility]) Anxiety and depression ([facility]) Generalized anxiety disorder with panic attacks ([facility] Tobacco use disorder Mixed hyperlipidemia ([facility]) Mixed hyperlipidemia Type 2 diabetes mellitus without complications ([facility]) Encounter for screening mammogram for malignant neoplasm of breast Diabetic neuropathy, painful ([facility]) Type II or unspecified type diabetes mellitus with neurological manifestations, not stated as uncontrolled Vitamin deficiency Unspecified vitamin deficiency Easy bruising Other symptoms involving skin and integumentary tissues Atherosclerotic heart disease of creek coronary artery without angina pectoris ([facility]) Pulmonary emphysema, unspecified emphysema type ([facility]) Type 2 diabetes mellitus with diabetic neuropathy, unspecified ([facility]) Nausea- Primary Nausea alone documented in this encounter [facility] HealthcareEvaluation note* Diagnosis Type 2 diabetes mellitus with diabetic polyneuropathy, with long-term current use of insulin ([facility])- Primary Primary hypertension ([facility]) Unspecified essential hypertension Diabetes mellitus type 2, insulin dependent ([facility])- Primary Type 2 diabetes mellitus with diabetic polyneuropathy, with long-term current use of insulin ([facility]) Primary hypertension ([facility]) Unspecified essential hypertension Coronary artery disease involving creek coronary artery of creek heart without angina pectoris ([facility]) Tobacco use disorder Class 3 severe obesity due to excess calories without serious comorbidity with body mass index (BMI) of 40.0 to 44.9 in adult ([facility]) Pulmonary emphysema, unspecified emphysema type ([facility]) Wheezing Diabetes mellitus type 2, insulin dependent ([facility])- Primary Yeast infection Bilateral nephrolithiasis Primary hypertension ([facility]) Unspecified essential hypertension Coronary artery disease involving creek coronary artery of creek heart without angina pectoris ([facility]) Obesity (BMI 30-39.9) Ventral hernia without obstruction or gangrene- Primary Unspecified ventral hernia without mention of obstruction or gangrene Diabetes mellitus type 2, insulin dependent ([facility]) Type 2 diabetes mellitus with diabetic polyneuropathy, with long-term current use of insulin ([facility]) Primary hypertension ([facility]) Unspecified essential hypertension Coronary artery disease involving creek coronary artery of creek heart without angina pectoris ([facility]) Gastroesophageal reflux disease, unspecified whether esophagitis present Obesity (BMI 30-39.9) Tobacco use disorder Generalized anxiety disorder with panic attacks ([facility]) Type 2 diabetes mellitus with diabetic polyneuropathy, with long-term current use of insulin ([facility])- Primary Major depressive disorder, recurrent, moderate ([facility]) Major depressive disorder, recurrent episode, moderate TRUONG on CPAP Obstructive sleep apnea, adult Coronary artery disease involving creek coronary artery of creek heart without angina pectoris ([facility]) Primary hypertension ([facility]) Unspecified essential hypertension Gastroesophageal reflux disease, unspecified whether esophagitis present Ventral hernia without obstruction or gangrene Unspecified ventral hernia without mention of obstruction or gangrene Diabetes mellitus type 2, insulin dependent ([facility]) Class 2 severe obesity due to excess calories with serious comorbidity in adult, unspecified BMI ([facility]) Anxiety and depression ([facility]) Generalized anxiety disorder with panic attacks ([facility]) Tobacco use disorder Mixed hyperlipidemia ([facility]) Mixed hyperlipidemia Type 2 diabetes mellitus without complications ([facility]) Encounter for screening mammogram for malignant neoplasm of breast Diabetic neuropathy, painful ([facility]) Type II or unspecified type diabetes mellitus with neurological manifestations, not stated as uncontrolled Vitamin deficiency Unspecified vitamin deficiency Easy bruising Other symptoms involving skin and integumentary tissues Atherosclerotic heart disease of creek coronary artery without angina pectoris ([facility]) Pulmonary emphysema, unspecified emphysema type ([facility]) Type 2 diabetes mellitus with diabetic neuropathy, unspecified ([facility]) Yeast infection- Primary documented in this encounter [facility] HealthcareEvaluation note* Diagnosis Type 2 diabetes mellitus with diabetic polyneuropathy, with long-term current use of insulin ([facility])- Primary Primary hypertension ([facility]) Unspecified essential hypertension Diabetes mellitus type 2, insulin dependent ([facility])- Primary Type 2 diabetes mellitus with diabetic polyneuropathy, with long-term current use of insulin ([facility]) Primary hypertension ([facility]) Unspecified essential hypertension Coronary artery disease involving creek coronary artery of creek heart without angina pectoris ([facility]) Tobacco use disorder Class 3 severe obesity due to excess calories without serious comorbidity with body mass index (BMI) of 40.0 to 44.9 in adult ([facility]) Pulmonary emphysema, unspecified emphysema type ([facility]) Wheezing Diabetes mellitus type 2, insulin dependent ([facility])- Primary Yeast infection Bilateral nephrolithiasis Primary hypertension ([facility]) Unspecified essential hypertension Coronary artery disease involving creek coronary artery of creek heart without angina pectoris ([facility]) Obesity (BMI 30-39.9) Ventral hernia without obstruction or gangrene- Primary Unspecified ventral hernia without mention of obstruction or gangrene Diabetes mellitus type 2, insulin dependent ([facility]) Type 2 diabetes mellitus with diabetic polyneuropathy, with long-term current use of insulin ([facility]) Primary hypertension ([facility]) Unspecified essential hypertension Coronary artery disease involving creek coronary artery of creek heart without angina pectoris ([facility]) Gastroesophageal reflux disease, unspecified whether esophagitis present Obesity (BMI 30-39.9) Tobacco use disorder Generalized anxiety disorder with panic attacks ([facility]) Type 2 diabetes mellitus with diabetic polyneuropathy, with long-term current use of insulin ([facility])- Primary Major depressive disorder, recurrent, moderate ([facility]) Major depressive disorder, recurrent episode, moderate TRUONG on CPAP Obstructive sleep apnea, adult Coronary artery disease involving creek coronary artery of creek heart without angina pectoris ([facility]) Primary hypertension ([facility]) Unspecified essential hypertension Gastroesophageal reflux disease, unspecified whether esophagitis present Ventral hernia without obstruction or gangrene Unspecified ventral hernia without mention of obstruction or gangrene Diabetes mellitus type 2, insulin dependent ([facility]) Class 2 severe obesity due to excess calories with serious comorbidity in adult, unspecified BMI ([facility]) Anxiety and depression ([facility]) Generalized anxiety disorder with panic attacks ([facility] Tobacco use disorder Mixed hyperlipidemia ([facility]) Mixed hyperlipidemia Type 2 diabetes mellitus without complications ([facility]) Encounter for screening mammogram for malignant neoplasm of breast Diabetic neuropathy, painful ([facility]) Type II or unspecified type diabetes mellitus with neurological manifestations, not stated as uncontrolled Vitamin deficiency Unspecified vitamin deficiency Easy bruising Other symptoms involving skin and integumentary tissues Atherosclerotic heart disease of creek coronary artery without angina pectoris ([facility]) Pulmonary emphysema, unspecified emphysema type ([facility]) Type 2 diabetes mellitus with diabetic neuropathy, unspecified ([facility]) Vitamin D deficiency- Primary documented in this encounter [facility] HealthcareEvaluation note* Diagnosis Type 2 diabetes mellitus with diabetic polyneuropathy, with long-term current use of insulin ([facility])- Primary Primary hypertension ([facility]) Unspecified essential hypertension Diabetes mellitus type 2, insulin dependent ([facility])- Primary Type 2 diabetes mellitus with diabetic polyneuropathy, with long-term current use of insulin ([facility]) Primary hypertension ([facility]) Unspecified essential hypertension Coronary artery disease involving creek coronary artery of creek heart without angina pectoris ([facility]) Tobacco use disorder Class 3 severe obesity due to excess calories without serious comorbidity with body mass index (BMI) of 40.0 to 44.9 in adult ([facility]) Pulmonary emphysema, unspecified emphysema type ([facility]) Wheezing Diabetes mellitus type 2, insulin dependent ([facility])- Primary Yeast infection Bilateral nephrolithiasis Primary hypertension ([facility]) Unspecified essential hypertension Coronary artery disease involving creek coronary artery of creek heart without angina pectoris ([facility]) Obesity (BMI 30-39.9) Ventral hernia without obstruction or gangrene- Primary Unspecified ventral hernia without mention of obstruction or gangrene Diabetes mellitus type 2, insulin dependent ([facility]) Type 2 diabetes mellitus with diabetic polyneuropathy, with long-term current use of insulin ([facility]) Primary hypertension ([facility]) Unspecified essential hypertension Coronary artery disease involving creek coronary artery of creek heart without angina pectoris ([facility]) Gastroesophageal reflux disease, unspecified whether esophagitis present Obesity (BMI 30-39.9) Tobacco use disorder Generalized anxiety disorder with panic attacks ([facility]) Type 2 diabetes mellitus with diabetic polyneuropathy, with long-term current use of insulin ([facility])- Primary Major depressive disorder, recurrent, moderate ([facility]) Major depressive disorder, recurrent episode, moderate TRUONG on CPAP Obstructive sleep apnea, adult Coronary artery disease involving creek coronary artery of creek heart without angina pectoris ([facility]) Primary hypertension ([facility]) Unspecified essential hypertension Gastroesophageal reflux disease, unspecified whether esophagitis present Ventral hernia without obstruction or gangrene Unspecified ventral hernia without mention of obstruction or gangrene Diabetes mellitus type 2, insulin dependent ([facility]) Class 2 severe obesity due to excess calories with serious comorbidity in adult, unspecified BMI ([facility]) Anxiety and depression ([facility]) Generalized anxiety disorder with panic attacks ([facility] Tobacco use disorder Mixed hyperlipidemia ([facility]) Mixed hyperlipidemia Type 2 diabetes mellitus without complications ([facility]) Encounter for screening mammogram for malignant neoplasm of breast Diabetic neuropathy, painful ([facility]) Type II or unspecified type diabetes mellitus with neurological manifestations, not stated as uncontrolled Vitamin deficiency Unspecified vitamin deficiency Easy bruising Other symptoms involving skin and integumentary tissues Atherosclerotic heart disease of creek coronary artery without angina pectoris ([facility]) Pulmonary emphysema, unspecified emphysema type ([facility]) Type 2 diabetes mellitus with diabetic neuropathy, unspecified ([facility]) Gastro-esophageal reflux disease without esophagitis documented in this encounter [facility] HealthcareEvaluation note* Diagnosis Type 2 diabetes mellitus with diabetic polyneuropathy, with long-term current use of insulin ([facility])- Primary Primary hypertension ([facility]) Unspecified essential hypertension Diabetes mellitus type 2, insulin dependent ([facility])- Primary Type 2 diabetes mellitus with diabetic polyneuropathy, with long-term current use of insulin ([facility]) Primary hypertension ([facility]) Unspecified essential hypertension Coronary artery disease involving creek coronary artery of creek heart without angina pectoris ([facility]) Tobacco use disorder Class 3 severe obesity due to excess calories without serious comorbidity with body mass index (BMI) of 40.0 to 44.9 in adult ([facility]) Pulmonary emphysema, unspecified emphysema type ([facility]) Wheezing Diabetes mellitus type 2, insulin dependent ([facility])- Primary Yeast infection Bilateral nephrolithiasis Primary hypertension ([facility]) Unspecified essential hypertension Coronary artery disease involving creek coronary artery of creek heart without angina pectoris ([facility]) Obesity (BMI 30-39.9) Ventral hernia without obstruction or gangrene- Primary Unspecified ventral hernia without mention of obstruction or gangrene Diabetes mellitus type 2, insulin dependent ([facility]) Type 2 diabetes mellitus with diabetic polyneuropathy, with long-term current use of insulin ([facility]) Primary hypertension ([facility]) Unspecified essential hypertension Coronary artery disease involving creek coronary artery of creek heart without angina pectoris ([facility]) Gastroesophageal reflux disease, unspecified whether esophagitis present Obesity (BMI 30-39.9) Tobacco use disorder Generalized anxiety disorder with panic attacks ([facility]) Type 2 diabetes mellitus with diabetic polyneuropathy, with long-term current use of insulin ([facility])- Primary Major depressive disorder, recurrent, moderate ([facility]) Major depressive disorder, recurrent episode, moderate TRUONG on CPAP Obstructive sleep apnea, adult Coronary artery disease involving creek coronary artery of creek heart without angina pectoris ([facility]) Primary hypertension ([facility]) Unspecified essential hypertension Gastroesophageal reflux disease, unspecified whether esophagitis present Ventral hernia without obstruction or gangrene Unspecified ventral hernia without mention of obstruction or gangrene Diabetes mellitus type 2, insulin dependent ([facility]) Class 2 severe obesity due to excess calories with serious comorbidity in adult, unspecified BMI ([facility]) Anxiety and depression ([facility]) Generalized anxiety disorder with panic attacks ([facility] Tobacco use disorder Mixed hyperlipidemia ([facility]) Mixed hyperlipidemia Type 2 diabetes mellitus without complications ([facility]) Encounter for screening mammogram for malignant neoplasm of breast Diabetic neuropathy, painful ([facility]) Type II or unspecified type diabetes mellitus with neurological manifestations, not stated as uncontrolled Vitamin deficiency Unspecified vitamin deficiency Easy bruising Other symptoms involving skin and integumentary tissues Atherosclerotic heart disease of creek coronary artery without angina pectoris ([facility]) Pulmonary emphysema, unspecified emphysema type ([facility]) Type 2 diabetes mellitus with diabetic neuropathy, unspecified ([facility]) Wheezing documented in this encounter [facility] HealthcareEvaluation [facility]* Diagnosis Type 2 diabetes mellitus with diabetic polyneuropathy, with long-term current use of insulin ([facility])- Primary Primary hypertension ([facility]) Unspecified essential hypertension Diabetes mellitus type 2, insulin dependent ([facility])- Primary Type 2 diabetes mellitus with diabetic polyneuropathy, with long-term current use of insulin ([facility]) Primary hypertension ([facility]) Unspecified essential hypertension Coronary artery disease involving creek coronary artery of creek heart without angina pectoris ([facility]) Tobacco use disorder Class 3 severe obesity due to excess calories without serious comorbidity with body mass index (BMI) of 40.0 to 44.9 in adult ([facility]) Pulmonary emphysema, unspecified emphysema type ([facility]) Wheezing Diabetes mellitus type 2, insulin dependent ([facility])- Primary Yeast infection Bilateral nephrolithiasis Primary hypertension ([facility]) Unspecified essential hypertension Coronary artery disease involving creek coronary artery of creek heart without angina pectoris ([facility] [facility] Obesity (BMI 30-39.9) Ventral hernia without obstruction or gangrene- Primary Unspecified ventral hernia without mention of obstruction or gangrene Diabetes mellitus type 2, insulin dependent ([facility]) Type 2 diabetes mellitus with diabetic polyneuropathy, with long-term current use of insulin ([facility]) Primary hypertension ([facility]) Unspecified essential hypertension Coronary artery disease involving creek coronary artery of creek heart without angina pectoris ([facility]) Gastroesophageal reflux disease, unspecified whether esophagitis present Obesity (BMI 30-39.9) Tobacco use disorder Generalized anxiety disorder with panic attacks ([facility]) Type 2 diabetes mellitus with diabetic polyneuropathy, with long-term current use of insulin ([facility])- Primary Major depressive disorder, recurrent, moderate ([facility]) Major depressive disorder, recurrent episode, moderate TRUONG on CPAP Obstructive sleep apnea, adult Coronary artery disease involving creek coronary artery of creek heart without angina pectoris ([facility]) Primary hypertension ([facility]) Unspecified essential hypertension Gastroesophageal reflux disease, unspecified whether esophagitis present Ventral hernia without obstruction or gangrene Unspecified ventral hernia without mention of obstruction or gangrene Diabetes mellitus type 2, insulin dependent ([facility]) Class 2 severe obesity due to excess calories with serious comorbidity in adult, unspecified BMI ([facility]) Anxiety and depression ([facility]) Generalized anxiety disorder with panic attacks ([facility]) Tobacco use disorder Mixed hyperlipidemia ([facility]) Mixed hyperlipidemia Type 2 diabetes mellitus without complications ([facility]) Encounter for screening mammogram for malignant neoplasm of breast Diabetic neuropathy, painful ([facility]) Type II or unspecified type diabetes mellitus with neurological manifestations, not stated as uncontrolled Vitamin deficiency Unspecified vitamin deficiency Easy bruising Other symptoms involving skin and integumentary tissues Atherosclerotic heart disease of creek coronary artery without angina pectoris ([facility]) Pulmonary emphysema, unspecified emphysema type ([facility]) Type 2 diabetes mellitus with diabetic neuropathy, unspecified ([facility]) Atherosclerotic heart disease of creek coronary artery without angina pectoris ([facility]) documented in this encounter [facility] HealthcareEvaluation note* Diagnosis Type 2 diabetes mellitus with diabetic polyneuropathy, with long-term current use of insulin ([facility])- Primary Primary hypertension ([facility]) Unspecified essential hypertension Diabetes mellitus type 2, insulin dependent ([facility])- Primary Type 2 diabetes mellitus with diabetic polyneuropathy, with long-term current use of insulin ([facility]) Primary hypertension ([facility]) Unspecified essential hypertension Coronary artery disease involving creek coronary artery of creek heart without angina pectoris ([facility]) Tobacco use disorder Class 3 severe obesity due to excess calories without serious comorbidity with body mass index (BMI) of 40.0 to 44.9 in adult ([facility]) Pulmonary emphysema, unspecified emphysema type ([facility]) Wheezing Diabetes mellitus type 2, insulin dependent ([facility])- Primary Yeast infection Bilateral nephrolithiasis Primary hypertension ([facility]) Unspecified essential hypertension Coronary artery disease involving creek coronary artery of creek heart without angina pectoris ([facility]) Obesity (BMI 30-39.9) Ventral hernia without obstruction or gangrene- Primary Unspecified ventral hernia without mention of obstruction or gangrene Diabetes mellitus type 2, insulin dependent ([facility]) Type 2 diabetes mellitus with diabetic polyneuropathy, with long-term current use of insulin ([facility]) Primary hypertension ([facility]) Unspecified essential hypertension Coronary artery disease involving creek coronary artery of creek heart without angina pectoris ([facility]) Gastroesophageal reflux disease, unspecified whether esophagitis present Obesity (BMI 30-39.9) Tobacco use disorder Generalized anxiety disorder with panic attacks ([facility]) Type 2 diabetes mellitus with diabetic polyneuropathy, with long-term current use of insulin ([facility])- Primary Major depressive disorder, recurrent, moderate ([facility]) Major depressive disorder, recurrent episode, moderate TRUONG on CPAP Obstructive sleep apnea, adult Coronary artery disease involving creek coronary artery of creek heart without angina pectoris ([facility]) Primary hypertension ([facility]) Unspecified essential hypertension Gastroesophageal reflux disease, unspecified whether esophagitis present Ventral hernia without obstruction or gangrene Unspecified ventral hernia without mention of obstruction or gangrene Diabetes mellitus type 2, insulin dependent ([facility]) Class 2 severe obesity due to excess calories with serious comorbidity in adult, unspecified BMI ([facility]) Anxiety and depression ([facility]) Generalized anxiety disorder with panic attacks ([facility] Tobacco use disorder Mixed hyperlipidemia ([facility]) Mixed hyperlipidemia Type 2 diabetes mellitus without complications ([facility]) Encounter for screening mammogram for malignant neoplasm of breast Diabetic neuropathy, painful ([facility]) Type II or unspecified type diabetes mellitus with neurological manifestations, not stated as uncontrolled Vitamin deficiency Unspecified vitamin deficiency Easy bruising Other symptoms involving skin and integumentary tissues Atherosclerotic heart disease of creek coronary artery without angina pectoris ([facility]) Pulmonary emphysema, unspecified emphysema type ([facility]) Type 2 diabetes mellitus with diabetic neuropathy, unspecified ([facility]) Numbness and tingling- Primary Disturbance of skin sensation documented in this encounter [facility] HealthcareEvaluation note* Diagnosis Type 2 diabetes mellitus with diabetic polyneuropathy, with long-term current use of insulin ([facility])- Primary Primary hypertension ([facility]) Unspecified essential hypertension Diabetes mellitus type 2, insulin dependent ([facility])- Primary Type 2 diabetes mellitus with diabetic polyneuropathy, with long-term current use of insulin ([facility]) Primary hypertension ([facility]) Unspecified essential hypertension Coronary artery disease involving creek coronary artery of creek heart without angina pectoris ([facility]) Tobacco use disorder Class 3 severe obesity due to excess calories without serious comorbidity with body mass index (BMI) of 40.0 to 44.9 in adult ([facility]) Pulmonary emphysema, unspecified emphysema type ([facility]) Wheezing Diabetes mellitus type 2, insulin dependent ([facility])- Primary Yeast infection Bilateral nephrolithiasis Primary hypertension ([facility]) Unspecified essential hypertension Coronary artery disease involving creek coronary artery of creek heart without angina pectoris ([facility]) Obesity (BMI 30-39.9) Ventral hernia without obstruction or gangrene- Primary Unspecified ventral hernia without mention of obstruction or gangrene Diabetes mellitus type 2, insulin dependent ([facility]) Type 2 diabetes mellitus with diabetic polyneuropathy, with long-term current use of insulin ([facility]) Primary hypertension ([facility]) Unspecified essential hypertension Coronary artery disease involving creek coronary artery of creek heart without angina pectoris ([facility]) Gastroesophageal reflux disease, unspecified whether esophagitis present Obesity (BMI 30-39.9) Tobacco use disorder Generalized anxiety disorder with panic attacks ([facility]) Type 2 diabetes mellitus with diabetic polyneuropathy, with long-term current use of insulin ([facility])- Primary Major depressive disorder, recurrent, moderate ([facility]) Major depressive disorder, recurrent episode, moderate TRUONG on CPAP Obstructive sleep apnea, adult Coronary artery disease involving creek coronary artery of creek heart without angina pectoris ([facility]) Primary hypertension ([facility]) Unspecified essential hypertension Gastroesophageal reflux disease, unspecified whether esophagitis present Ventral hernia without obstruction or gangrene Unspecified ventral hernia without mention of obstruction or gangrene Diabetes mellitus type 2, insulin dependent ([facility]) Class 2 severe obesity due to excess calories with serious comorbidity in adult, unspecified BMI ([facility]) Anxiety and depression ([facility]) Generalized anxiety disorder with panic attacks ([facility] Tobacco use disorder Mixed hyperlipidemia ([facility]) Mixed hyperlipidemia Type 2 diabetes mellitus without complications ([facility]) Encounter for screening mammogram for malignant neoplasm of breast Diabetic neuropathy, painful ([facility]) Type II or unspecified type diabetes mellitus with neurological manifestations, not stated as uncontrolled Vitamin deficiency Unspecified vitamin deficiency Easy bruising Other symptoms involving skin and integumentary tissues Atherosclerotic heart disease of creek coronary artery without angina pectoris ([facility]) Pulmonary emphysema, unspecified emphysema type ([facility]) Type 2 diabetes mellitus with diabetic neuropathy, unspecified ([facility]) Type 2 diabetes mellitus without complication, with long-term current use of insulin ([facility])- Primary documented in this encounter [facility] HealthcareEvaluation note* Diagnosis Type 2 diabetes mellitus with diabetic polyneuropathy, with long-term current use of insulin ([facility])- Primary Primary hypertension ([facility]) Unspecified essential hypertension Diabetes mellitus type 2, insulin dependent ([facility])- Primary Type 2 diabetes mellitus with diabetic polyneuropathy, with long-term current use of insulin ([facility]) Primary hypertension ([facility]) Unspecified essential hypertension Coronary artery disease involving creek coronary artery of creek heart without angina pectoris ([facility]) Tobacco use disorder Class 3 severe obesity due to excess calories without serious comorbidity with body mass index (BMI) of 40.0 to 44.9 in adult Pulmonary emphysema, unspecified emphysema type ([facility]) Wheezing Diabetes mellitus type 2, insulin dependent ([facility])- Primary Yeast infection Bilateral nephrolithiasis Primary hypertension ([facility]) Unspecified essential hypertension Coronary artery disease involving creek coronary artery of creek heart without angina pectoris ([facility]) Obesity (BMI 30-39.9) Ventral hernia without obstruction or gangrene- Primary Unspecified ventral hernia without mention of obstruction or gangrene Diabetes mellitus type 2, insulin dependent ([facility]) Type 2 diabetes mellitus with diabetic polyneuropathy, with long-term current use of insulin ([facility]) Primary hypertension ([facility]) Unspecified essential hypertension Coronary artery disease involving creek coronary artery of creek heart without angina pectoris ([facility]) Gastroesophageal reflux disease, unspecified whether esophagitis present Obesity (BMI 30-39.9) Tobacco use disorder Generalized anxiety disorder with panic attacks ([facility]) Type 2 diabetes mellitus with diabetic polyneuropathy, with long-term current use of insulin ([facility])- Primary Major depressive disorder, recurrent, moderate ([facility]) Major depressive disorder, recurrent episode, moderate TRUONG on CPAP Obstructive sleep apnea, adult Coronary artery disease involving creek coronary artery of creek heart without angina pectoris ([facility]) Primary hypertension ([facility]) Unspecified essential hypertension Gastroesophageal reflux disease, unspecified whether esophagitis present Ventral hernia without obstruction or gangrene Unspecified ventral hernia without mention of obstruction or gangrene Diabetes mellitus type 2, insulin dependent ([facility]) Class 2 severe obesity due to excess calories with serious comorbidity in adult, unspecified BMI ([facility]) Anxiety and depression ([facility]) Generalized anxiety disorder with panic attacks ([facility]) Tobacco use disorder Mixed hyperlipidemia ([facility]) Mixed hyperlipidemia Type 2 diabetes mellitus without complications Encounter for screening mammogram for malignant neoplasm of breast Diabetic neuropathy, painful ([facility]) Type II or unspecified type diabetes mellitus with neurological manifestations, not stated as uncontrolled Vitamin deficiency Unspecified vitamin deficiency Easy bruising Other symptoms involving skin and integumentary tissues Atherosclerotic heart disease of creek coronary artery without angina pectoris ([facility]) Pulmonary emphysema, unspecified emphysema type ([facility]) Type 2 diabetes mellitus with diabetic neuropathy, unspecified ([facility]) Nausea- Primary Nausea alone documented in this encounter [facility] HealthcareEvaluation note* Diagnosis Type 2 diabetes mellitus with diabetic polyneuropathy, with long-term current use of insulin ([facility])- Primary Primary hypertension ([facility]) Unspecified essential hypertension Diabetes mellitus type 2, insulin dependent ([facility])- Primary Type 2 diabetes mellitus with diabetic polyneuropathy, with long-term current use of insulin ([facility]) Primary hypertension ([facility]) Unspecified essential hypertension Coronary artery disease involving creek coronary artery of creek heart without angina pectoris ([facility]) Tobacco use disorder Class 3 severe obesity due to excess calories without serious comorbidity with body mass index (BMI) of 40.0 to 44.9 in adult Pulmonary emphysema, unspecified emphysema type (CMS/HCC) Wheezing Diabetes mellitus type 2, insulin dependent ([facility])- Primary Yeast infection Bilateral nephrolithiasis Primary hypertension ([facility]) Unspecified essential hypertension Coronary artery disease involving creek coronary artery of creek heart without angina pectoris ([facility]) Obesity (BMI 30-39.9) Ventral hernia without obstruction or gangrene- Primary Unspecified ventral hernia without mention of obstruction or gangrene Diabetes mellitus type 2, insulin dependent ([facility]) Type 2 diabetes mellitus with diabetic polyneuropathy, with long-term current use of insulin ([facility]) Primary hypertension ([facility]) Unspecified essential hypertension Coronary artery disease involving creek coronary artery of creek heart without angina pectoris ([facility]) Gastroesophageal reflux disease, unspecified whether esophagitis present Obesity (BMI 30-39.9) Tobacco use disorder Generalized anxiety disorder with panic attacks ([facility]) Type 2 diabetes mellitus with diabetic polyneuropathy, with long-term current use of insulin ([facility])- Primary Major depressive disorder, recurrent, moderate ([facility]) Major depressive disorder, recurrent episode, moderate TRUONG on CPAP Obstructive sleep apnea, adult Coronary artery disease involving creek coronary artery of creek heart without angina pectoris ([facility]) Primary hypertension ([facility]) Unspecified essential hypertension Gastroesophageal reflux disease, unspecified whether esophagitis present Ventral hernia without obstruction or gangrene Unspecified ventral hernia without mention of obstruction or gangrene Diabetes mellitus type 2, insulin dependent ([facility]) Class 2 severe obesity due to excess calories with serious comorbidity in adult, unspecified BMI ([facility]) Anxiety and depression ([facility]) Generalized anxiety disorder with panic attacks ([facility]) Tobacco use disorder Mixed hyperlipidemia ([facility]) Mixed hyperlipidemia Type 2 diabetes mellitus without complications Encounter for screening mammogram for malignant neoplasm of breast Diabetic neuropathy, painful ([facility]) Type II or unspecified type diabetes mellitus with neurological manifestations, not stated as uncontrolled Vitamin deficiency Unspecified vitamin deficiency Easy bruising Other symptoms involving skin and integumentary tissues Atherosclerotic heart disease of creek coronary artery without angina pectoris ([facility]) Pulmonary emphysema, unspecified emphysema type ([facility]) Type 2 diabetes mellitus with diabetic neuropathy, unspecified ([facility]) Type 2 diabetes mellitus without complication, with long-term current use of insulin- Primary documented in this encounter [facility] HealthcareEvaluation note* Diagnosis Type 2 diabetes mellitus with diabetic polyneuropathy, with long-term current use of insulin ([facility])- Primary Primary hypertension ([facility]) Unspecified essential hypertension Diabetes mellitus type 2, insulin dependent ([facility])- Primary Type 2 diabetes mellitus with diabetic polyneuropathy, with long-term current use of insulin ([facility]) Primary hypertension ([facility]) Unspecified essential hypertension Coronary artery disease involving creek coronary artery of creek heart without angina pectoris ([facility]) Tobacco use disorder Class 3 severe obesity due to excess calories without serious comorbidity with body mass index (BMI) of 40.0 to 44.9 in adult Pulmonary emphysema, unspecified emphysema type ([facility]) Wheezing Diabetes mellitus type 2, insulin dependent ([facility])- Primary Yeast infection Bilateral nephrolithiasis Primary hypertension ([facility]) Unspecified essential hypertension Coronary artery disease involving creek coronary artery of creek heart without angina pectoris ([facility]) Obesity (BMI 30-39.9) Ventral hernia without obstruction or gangrene- Primary Unspecified ventral hernia without mention of obstruction or gangrene Diabetes mellitus type 2, insulin dependent ([facility]) Type 2 diabetes mellitus with diabetic polyneuropathy, with long-term current use of insulin ([facility]) Primary hypertension ([facility]) Unspecified essential hypertension Coronary artery disease involving creek coronary artery of creek heart without angina pectoris ([facility]) Gastroesophageal reflux disease, unspecified whether esophagitis present Obesity (BMI 30-39.9) Tobacco use disorder Generalized anxiety disorder with panic attacks ([facility]) Type 2 diabetes mellitus with diabetic polyneuropathy, with long-term current use of insulin ([facility])- Primary Major depressive disorder, recurrent, moderate ([facility]) Major depressive disorder, recurrent episode, moderate TRUONG on CPAP Obstructive sleep apnea, adult Coronary artery disease involving creek coronary artery of creek heart without angina pectoris ([facility]) Primary hypertension ([facility]) Unspecified essential hypertension Gastroesophageal reflux disease, unspecified whether esophagitis present Ventral hernia without obstruction or gangrene Unspecified ventral hernia without mention of obstruction or gangrene Diabetes mellitus type 2, insulin dependent ([facility]) Class 2 severe obesity due to excess calories with serious comorbidity in adult, unspecified BMI ([facility]) Anxiety and depression ([facility]) Generalized anxiety disorder with panic attacks ([facility]) Tobacco use disorder Mixed hyperlipidemia ([facility]) Mixed hyperlipidemia Type 2 diabetes mellitus without complications Encounter for screening mammogram for malignant neoplasm of breast Diabetic neuropathy, painful ([facility]) Type II or unspecified type diabetes mellitus with neurological manifestations, not stated as uncontrolled Vitamin deficiency Unspecified vitamin deficiency Easy bruising Other symptoms involving skin and integumentary tissues Atherosclerotic heart disease of creek coronary artery without angina pectoris ([facility]) Pulmonary emphysema, unspecified emphysema type (CMS/HCC) Type 2 diabetes mellitus with diabetic neuropathy, unspecified ([facility]) Nausea Nausea alone documented in this encounter [facility] HealthcareEvaluation note* Diagnosis Type 2 diabetes mellitus with diabetic polyneuropathy, with long-term current use of insulin ([facility])- Primary Primary hypertension ([facility]) Unspecified essential hypertension Diabetes mellitus type 2, insulin dependent ([facility])- Primary Type 2 diabetes mellitus with diabetic polyneuropathy, with long-term current use of insulin ([facility]) Primary hypertension ([facility]) Unspecified essential hypertension Coronary artery disease involving creek coronary artery of creek heart without angina pectoris ([facility]) Tobacco use disorder Class 3 severe obesity due to excess calories without serious comorbidity with body mass index (BMI) of 40.0 to 44.9 in adult Pulmonary emphysema, unspecified emphysema type (CMS/HCC) Wheezing Diabetes mellitus type 2, insulin dependent ([facility])- Primary Yeast infection Bilateral nephrolithiasis Primary hypertension ([facility]) Unspecified essential hypertension Coronary artery disease involving creek coronary artery of creek heart without angina pectoris ([facility]) Obesity (BMI 30-39.9) Ventral hernia without obstruction or gangrene- Primary Unspecified ventral hernia without mention of obstruction or gangrene Diabetes mellitus type 2, insulin dependent ([facility]) Type 2 diabetes mellitus with diabetic polyneuropathy, with long-term current use of insulin ([facility]) Primary hypertension ([facility]) Unspecified essential hypertension Coronary artery disease involving creek coronary artery of creek heart without angina pectoris ([facility]) Gastroesophageal reflux disease, unspecified whether esophagitis present Obesity (BMI 30-39.9) Tobacco use disorder Generalized anxiety disorder with panic attacks ([facility]) Type 2 diabetes mellitus with diabetic polyneuropathy, with long-term current use of insulin ([facility])- Primary Major depressive disorder, recurrent, moderate ([facility]) Major depressive disorder, recurrent episode, moderate TRUONG on CPAP Obstructive sleep apnea, adult Coronary artery disease involving creek coronary artery of creek heart without angina pectoris (CMS/HCC) Primary hypertension (CMS/HCC) Unspecified essential hypertension Gastroesophageal reflux disease, unspecified whether esophagitis present Ventral hernia without obstruction or gangrene Unspecified ventral hernia without mention of obstruction or gangrene Diabetes mellitus type 2, insulin dependent ([facility]) Class 2 severe obesity due to excess calories with serious comorbidity in adult, unspecified BMI (CMS/HCC) Anxiety and depression (CMS/HCC) Generalized anxiety disorder with panic attacks ([facility]) Tobacco use disorder Mixed hyperlipidemia ([facility]) Mixed hyperlipidemia Type 2 diabetes mellitus without complications Encounter for screening mammogram for malignant neoplasm of breast Diabetic neuropathy, painful ([facility]) Type II or unspecified type diabetes mellitus with neurological manifestations, not stated as uncontrolled Vitamin deficiency Unspecified vitamin deficiency Easy bruising Other symptoms involving skin and integumentary tissues Atherosclerotic heart disease of creek coronary artery without angina pectoris ([facility]) Pulmonary emphysema, unspecified emphysema type (CMS/HCC) Type 2 diabetes mellitus with diabetic neuropathy, unspecified ([facility]) Diabetes mellitus type 2, insulin dependent ([facility]) Mixed hyperlipidemia ([facility]) Mixed hyperlipidemia Atherosclerotic heart disease of creek coronary artery without angina pectoris ([facility]) documented in this encounter [facility] HealthcareEvaluation note* Diagnosis Type 2 diabetes mellitus with diabetic polyneuropathy, with long-term current use of insulin ([facility])- Primary Primary hypertension (CMS/HCC) Unspecified essential hypertension Diabetes mellitus type 2, insulin dependent ([facility])- Primary Type 2 diabetes mellitus with diabetic polyneuropathy, with long-term current use of insulin ([facility]) Primary hypertension ([facility]) Unspecified essential hypertension Coronary artery disease involving creek coronary artery of creek heart without angina pectoris ([facility]) Tobacco use disorder Class 3 severe obesity due to excess calories without serious comorbidity with body mass index (BMI) of 40.0 to 44.9 in adult Pulmonary emphysema, unspecified emphysema type (CMS/HCC) Wheezing Diabetes mellitus type 2, insulin dependent ([facility])- Primary Yeast infection Bilateral nephrolithiasis Primary hypertension ([facility]) Unspecified essential hypertension Coronary artery disease involving creek coronary artery of creek heart without angina pectoris (CMS/HCC) Obesity (BMI 30-39.9) Ventral hernia without obstruction or gangrene- Primary Unspecified ventral hernia without mention of obstruction or gangrene Diabetes mellitus type 2, insulin dependent ([facility]) Type 2 diabetes mellitus with diabetic polyneuropathy, with long-term current use of insulin ([facility]) Primary hypertension ([facility]) Unspecified essential hypertension Coronary artery disease involving creek coronary artery of creek heart without angina pectoris ([facility]) Gastroesophageal reflux disease, unspecified whether esophagitis present Obesity (BMI 30-39.9) Tobacco use disorder Generalized anxiety disorder with panic attacks ([facility]) Type 2 diabetes mellitus with diabetic polyneuropathy, with long-term current use of insulin ([facility])- Primary Major depressive disorder, recurrent, moderate ([facility]) Major depressive disorder, recurrent episode, moderate TRUONG on CPAP Obstructive sleep apnea, adult Coronary artery disease involving creek coronary artery of creek heart without angina pectoris ([facility]) Primary hypertension ([facility]) Unspecified essential hypertension Gastroesophageal reflux disease, unspecified whether esophagitis present Ventral hernia without obstruction or gangrene Unspecified ventral hernia without mention of obstruction or gangrene Diabetes mellitus type 2, insulin dependent ([facility]) Class 2 severe obesity due to excess calories with serious comorbidity in adult, unspecified BMI ([facility]) Anxiety and depression ([facility]) Generalized anxiety disorder with panic attacks ([facility]) Tobacco use disorder Mixed hyperlipidemia ([facility]) Mixed hyperlipidemia Type 2 diabetes mellitus without complications Encounter for screening mammogram for malignant neoplasm of breast Diabetic neuropathy, painful ([facility]) Type II or unspecified type diabetes mellitus with neurological manifestations, not stated as uncontrolled Vitamin deficiency Unspecified vitamin deficiency Easy bruising Other symptoms involving skin and integumentary tissues Atherosclerotic heart disease of creek coronary artery without angina pectoris ([facility]) Pulmonary emphysema, unspecified emphysema type ([facility]) Type 2 diabetes mellitus with diabetic neuropathy, unspecified ([facility]) Wheezing documented in this encounter [facility] HealthcareEvaluation note* Diagnosis Type 2 diabetes mellitus with diabetic polyneuropathy, with long-term current use of insulin ([facility])- Primary Primary hypertension ([facility]) Unspecified essential hypertension Diabetes mellitus type 2, insulin dependent ([facility])- Primary Type 2 diabetes mellitus with diabetic polyneuropathy, with long-term current use of insulin ([facility]) Primary hypertension ([facility]) Unspecified essential hypertension Coronary artery disease involving creek coronary artery of creek heart without angina pectoris ([facility]) Tobacco use disorder Class 3 severe obesity due to excess calories without serious comorbidity with body mass index (BMI) of 40.0 to 44.9 in adult Pulmonary emphysema, unspecified emphysema type ([facility]/HCC) Wheezing Diabetes mellitus type 2, insulin dependent ([facility])- Primary Yeast infection Bilateral nephrolithiasis Primary hypertension ([facility]) Unspecified essential hypertension Coronary artery disease involving creek coronary artery of creek heart without angina pectoris ([facility]) Obesity (BMI 30-39.9) Ventral hernia without obstruction or gangrene- Primary Unspecified ventral hernia without mention of obstruction or gangrene Diabetes mellitus type 2, insulin dependent ([facility]) Type 2 diabetes mellitus with diabetic polyneuropathy, with long-term current use of insulin ([facility]) Primary hypertension ([facility]) Unspecified essential hypertension Coronary artery disease involving creek coronary artery of creek heart without angina pectoris ([facility]) Gastroesophageal reflux disease, unspecified whether esophagitis present Obesity (BMI 30-39.9) Tobacco use disorder Generalized anxiety disorder with panic attacks ([facility]) Type 2 diabetes mellitus with diabetic polyneuropathy, with long-term current use of insulin ([facility])- Primary Major depressive disorder, recurrent, moderate ([facility]) Major depressive disorder, recurrent episode, moderate TRUONG on CPAP Obstructive sleep apnea, adult Coronary artery disease involving creek coronary artery of creek heart without angina pectoris ([facility]) Primary hypertension ([facility]) Unspecified essential hypertension Gastroesophageal reflux disease, unspecified whether esophagitis present Ventral hernia without obstruction or gangrene Unspecified ventral hernia without mention of obstruction or gangrene Diabetes mellitus type 2, insulin dependent ([facility]) Class 2 severe obesity due to excess calories with serious comorbidity in adult, unspecified BMI ([facility]) Anxiety and depression ([facility]) Generalized anxiety disorder with panic attacks ([facility]) Tobacco use disorder Mixed hyperlipidemia ([facility]) Mixed hyperlipidemia Type 2 diabetes mellitus without complications Encounter for screening mammogram for malignant neoplasm of breast Diabetic neuropathy, painful ([facility]) Type II or unspecified type diabetes mellitus with neurological manifestations, not stated as uncontrolled Vitamin deficiency Unspecified vitamin deficiency Easy bruising Other symptoms involving skin and integumentary tissues Atherosclerotic heart disease of creek coronary artery without angina pectoris ([facility]) Pulmonary emphysema, unspecified emphysema type ([facility]/HCC) Type 2 diabetes mellitus with diabetic neuropathy, unspecified ([facility]) Other hemorrhoids- Primary documented in this encounter [facility] HealthcareEvaluation note* Diagnosis Type 2 diabetes mellitus with diabetic polyneuropathy, with long-term current use of insulin (HCC)- Primary Primary hypertension Unspecified essential hypertension Diabetes mellitus type 2, insulin dependent (HCC)- Primary Type 2 diabetes mellitus with diabetic polyneuropathy, with long-term current use of insulin (HCC) Primary hypertension Unspecified essential hypertension Coronary artery disease involving creek coronary artery of creek heart without angina pectoris Tobacco use disorder Class 3 severe obesity due to excess calories without serious comorbidity with body mass index (BMI) of 40.0 to 44.9 in adult ([facility]) Pulmonary emphysema, unspecified emphysema type ([facility]) Wheezing Diabetes mellitus type 2, insulin dependent ([facility])- Primary Yeast infection Bilateral nephrolithiasis Primary hypertension Unspecified essential hypertension Coronary artery disease involving creek coronary artery of creek heart without angina pectoris Obesity (BMI 30-39.9) Ventral hernia without obstruction or gangrene- Primary Unspecified ventral hernia without mention of obstruction or gangrene Diabetes mellitus type 2, insulin dependent (HCC) Type 2 diabetes mellitus with diabetic polyneuropathy, with long-term current use of insulin ([facility]) Primary hypertension Unspecified essential hypertension Coronary artery disease involving creek coronary artery of creek heart without angina pectoris Gastroesophageal reflux disease, unspecified whether esophagitis present Obesity (BMI 30-39.9) Tobacco use disorder Generalized anxiety disorder with panic attacks Type 2 diabetes mellitus with diabetic polyneuropathy, with long-term current use of insulin ([facility])- Primary Major depressive disorder, recurrent, moderate ([facility]) Major depressive disorder, recurrent episode, moderate TRUONG on CPAP Obstructive sleep apnea, adult Coronary artery disease involving creek coronary artery of creek heart without angina pectoris Primary hypertension Unspecified essential hypertension Gastroesophageal reflux disease, unspecified whether esophagitis present Ventral hernia without obstruction or gangrene Unspecified ventral hernia without mention of obstruction or gangrene Diabetes mellitus type 2, insulin dependent ([facility]) Class 2 severe obesity due to excess calories with serious comorbidity in adult, unspecified BMI ([facility]) Anxiety and depression Generalized anxiety disorder with panic attacks Tobacco use disorder Mixed hyperlipidemia Mixed hyperlipidemia Type 2 diabetes mellitus without complications ([facility]) Encounter for screening mammogram for malignant neoplasm of breast Diabetic neuropathy, painful ([facility]) Type II or unspecified type diabetes mellitus with neurological manifestations, not stated as uncontrolled Vitamin deficiency Unspecified vitamin deficiency Easy bruising Other symptoms involving skin and integumentary tissues Atherosclerotic heart disease of creek coronary artery without angina pectoris Pulmonary emphysema, unspecified emphysema type (HCC) Type 2 diabetes mellitus with diabetic neuropathy, unspecified (HCC) Type 2 diabetes mellitus with diabetic polyneuropathy, with long-term current use of insulin ([facility]) Wheezing documented in this encounter [facility] HealthcareEvaluation note* Diagnosis Type 2 diabetes mellitus with diabetic polyneuropathy, with long-term current use of insulin (HCC)- Primary Primary hypertension Unspecified essential hypertension Diabetes mellitus type 2, insulin dependent (HCC)- Primary Type 2 diabetes mellitus with diabetic polyneuropathy, with long-term current use of insulin (HCC) Primary hypertension Unspecified essential hypertension Coronary artery disease involving creek coronary artery of creek heart without angina pectoris Tobacco use disorder Class 3 severe obesity due to excess calories without serious comorbidity with body mass index (BMI) of 40.0 to 44.9 in adult ([facility]) Pulmonary emphysema, unspecified emphysema type (HCC) Wheezing Diabetes mellitus type 2, insulin dependent (HCC)- Primary Yeast infection Bilateral nephrolithiasis Primary hypertension Unspecified essential hypertension Coronary artery disease involving creek coronary artery of creek heart without angina pectoris Obesity (BMI 30-39.9) Ventral hernia without obstruction or gangrene- Primary Unspecified ventral hernia without mention of obstruction or gangrene Diabetes mellitus type 2, insulin dependent (HCC) Type 2 diabetes mellitus with diabetic polyneuropathy, with long-term current use of insulin (HCC) Primary hypertension Unspecified essential hypertension Coronary artery disease involving creek coronary artery of creek heart without angina pectoris Gastroesophageal reflux disease, unspecified whether esophagitis present Obesity (BMI 30-39.9) Tobacco use disorder Generalized anxiety disorder with panic attacks Type 2 diabetes mellitus with diabetic polyneuropathy, with long-term current use of insulin (HCC)- Primary Major depressive disorder, recurrent, moderate (HCC) Major depressive disorder, recurrent episode, moderate TRUONG on CPAP Obstructive sleep apnea, adult Coronary artery disease involving creek coronary artery of creek heart without angina pectoris Primary hypertension Unspecified essential hypertension Gastroesophageal reflux disease, unspecified whether esophagitis present Ventral hernia without obstruction or gangrene Unspecified ventral hernia without mention of obstruction or gangrene Diabetes mellitus type 2, insulin dependent (HCC) Class 2 severe obesity due to excess calories with serious comorbidity in adult, unspecified BMI ([facility]) Anxiety and depression Generalized anxiety disorder with panic attacks Tobacco use disorder Mixed hyperlipidemia Mixed hyperlipidemia Type 2 diabetes mellitus without complications ([facility]) Encounter for screening mammogram for malignant neoplasm of breast Diabetic neuropathy, painful ([facility]) Type II or unspecified type diabetes mellitus with neurological manifestations, not stated as uncontrolled Vitamin deficiency Unspecified vitamin deficiency Easy bruising Other symptoms involving skin and integumentary tissues Atherosclerotic heart disease of creek coronary artery without angina pectoris Pulmonary emphysema, unspecified emphysema type (HCC) Type 2 diabetes mellitus with diabetic neuropathy, unspecified ([facility]) Vitamin D deficiency- Primary Vitamin deficiency Unspecified vitamin deficiency Type 2 diabetes mellitus without complication, with long-term current use of insulin ([facility]) documented in this encounter [facility] HealthcareEvaluation note* Diagnosis Type 2 diabetes mellitus with diabetic polyneuropathy, with long-term current use of insulin ([facility])- Primary Primary hypertension Unspecified essential hypertension Diabetes mellitus type 2, insulin dependent ([facility])- Primary Type 2 diabetes mellitus with diabetic polyneuropathy, with long-term current use of insulin ([facility]) Primary hypertension Unspecified essential hypertension Coronary artery disease involving creek coronary artery of creek heart without angina pectoris Tobacco use disorder Class 3 severe obesity due to excess calories without serious comorbidity with body mass index (BMI) of 40.0 to 44.9 in adult ([facility]) Pulmonary emphysema, unspecified emphysema type ([facility]) Wheezing Diabetes mellitus type 2, insulin dependent ([facility])- Primary Yeast infection Bilateral nephrolithiasis Primary hypertension Unspecified essential hypertension Coronary artery disease involving creek coronary artery of creek heart without angina pectoris Obesity (BMI 30-39.9) Ventral hernia without obstruction or gangrene- Primary Unspecified ventral hernia without mention of obstruction or gangrene Diabetes mellitus type 2, insulin dependent ([facility]) Type 2 diabetes mellitus with diabetic polyneuropathy, with long-term current use of insulin ([facility]) Primary hypertension Unspecified essential hypertension Coronary artery disease involving creek coronary artery of creek heart without angina pectoris Gastroesophageal reflux disease, unspecified whether esophagitis present Obesity (BMI 30-39.9) Tobacco use disorder Generalized anxiety disorder with panic attacks Type 2 diabetes mellitus with diabetic polyneuropathy, with long-term current use of insulin ([facility])- Primary Major depressive disorder, recurrent, moderate ([facility]) Major depressive disorder, recurrent episode, moderate TRUONG on CPAP Obstructive sleep apnea, adult Coronary artery disease involving creek coronary artery of creek heart without angina pectoris Primary hypertension Unspecified essential hypertension Gastroesophageal reflux disease, unspecified whether esophagitis present Ventral hernia without obstruction or gangrene Unspecified ventral hernia without mention of obstruction or gangrene Diabetes mellitus type 2, insulin dependent (HCC) Class 2 severe obesity due to excess calories with serious comorbidity in adult, unspecified BMI ([facility]) Anxiety and depression Generalized anxiety disorder with panic attacks Tobacco use disorder Mixed hyperlipidemia Mixed hyperlipidemia Type 2 diabetes mellitus without complications (HCC) Encounter for screening mammogram for malignant neoplasm of breast Diabetic neuropathy, painful ([facility]) Type II or unspecified type diabetes mellitus with neurological manifestations, not stated as uncontrolled Vitamin deficiency Unspecified vitamin deficiency Easy bruising Other symptoms involving skin and integumentary tissues Atherosclerotic heart disease of creek coronary artery without angina pectoris Pulmonary emphysema, unspecified emphysema type (HCC) Type 2 diabetes mellitus with diabetic neuropathy, unspecified ([facility]) Other hemorrhoids- Primary documented in this encounter [facility] HealthcareEvaluation note* Diagnosis Type 2 diabetes mellitus with diabetic polyneuropathy, with long-term current use of insulin ([facility])- Primary Primary hypertension Unspecified essential hypertension Diabetes mellitus type 2, insulin dependent (HCC)- Primary Type 2 diabetes mellitus with diabetic polyneuropathy, with long-term current use of insulin ([facility]) Primary hypertension Unspecified essential hypertension Coronary artery disease involving creek coronary artery of creek heart without angina pectoris Tobacco use disorder Class 3 severe obesity due to excess calories without serious comorbidity with body mass index (BMI) of 40.0 to 44.9 in adult ([facility]) Pulmonary emphysema, unspecified emphysema type (HCC) Wheezing Diabetes mellitus type 2, insulin dependent (HCC)- Primary Yeast infection Bilateral nephrolithiasis Primary hypertension Unspecified essential hypertension Coronary artery disease involving creek coronary artery of creek heart without angina pectoris Obesity (BMI 30-39.9) Ventral hernia without obstruction or gangrene- Primary Unspecified ventral hernia without mention of obstruction or gangrene Diabetes mellitus type 2, insulin dependent (HCC) Type 2 diabetes mellitus with diabetic polyneuropathy, with long-term current use of insulin (HCC) Primary hypertension Unspecified essential hypertension Coronary artery disease involving creek coronary artery of creek heart without angina pectoris Gastroesophageal reflux disease, unspecified whether esophagitis present Obesity (BMI 30-39.9) Tobacco use disorder Generalized anxiety disorder with panic attacks Type 2 diabetes mellitus with diabetic polyneuropathy, with long-term current use of insulin ([facility])- Primary Major depressive disorder, recurrent, moderate ([facility]) Major depressive disorder, recurrent episode, moderate TRUONG on CPAP Obstructive sleep apnea, adult Coronary artery disease involving creek coronary artery of creek heart without angina pectoris Primary hypertension Unspecified essential hypertension Gastroesophageal reflux disease, unspecified whether esophagitis present Ventral hernia without obstruction or gangrene Unspecified ventral hernia without mention of obstruction or gangrene Diabetes mellitus type 2, insulin dependent ([facility]) Class 2 severe obesity due to excess calories with serious comorbidity in adult, unspecified BMI ([facility]) Anxiety and depression Generalized anxiety disorder with panic attacks Tobacco use disorder Mixed hyperlipidemia Mixed hyperlipidemia Type 2 diabetes mellitus without complications ([facility]) Encounter for screening mammogram for malignant neoplasm of breast Diabetic neuropathy, painful ([facility]) Type II or unspecified type diabetes mellitus with neurological manifestations, not stated as uncontrolled Vitamin deficiency Unspecified vitamin deficiency Easy bruising Other symptoms involving skin and integumentary tissues Atherosclerotic heart disease of creek coronary artery without angina pectoris Pulmonary emphysema, unspecified emphysema type (HCC) Type 2 diabetes mellitus with diabetic neuropathy, unspecified (HCC) Type 2 diabetes mellitus without complication, with long-term current use of insulin ([facility]) documented in this encounter [facility] HealthcareEvaluation note* Diagnosis Type 2 diabetes mellitus with diabetic polyneuropathy, with long-term current use of insulin ([facility])- Primary Primary hypertension Unspecified essential hypertension Diabetes mellitus type 2, insulin dependent (HCC)- Primary Type 2 diabetes mellitus with diabetic polyneuropathy, with long-term current use of insulin ([facility]) Primary hypertension Unspecified essential hypertension Coronary artery disease involving creek coronary artery of creek heart without angina pectoris Tobacco use disorder Class 3 severe obesity due to excess calories without serious comorbidity with body mass index (BMI) of 40.0 to 44.9 in adult ([facility]) Pulmonary emphysema, unspecified emphysema type (HCC) Wheezing Diabetes mellitus type 2, insulin dependent (HCC)- Primary Yeast infection Bilateral nephrolithiasis Primary hypertension Unspecified essential hypertension Coronary artery disease involving creek coronary artery of creek heart without angina pectoris Obesity (BMI 30-39.9) Ventral hernia without obstruction or gangrene- Primary Unspecified ventral hernia without mention of obstruction or gangrene Diabetes mellitus type 2, insulin dependent (HCC) Type 2 diabetes mellitus with diabetic polyneuropathy, with long-term current use of insulin ([facility]) Primary hypertension Unspecified essential hypertension Coronary artery disease involving creek coronary artery of creek heart without angina pectoris Gastroesophageal reflux disease, unspecified whether esophagitis present Obesity (BMI 30-39.9) Tobacco use disorder Generalized anxiety disorder with panic attacks Type 2 diabetes mellitus with diabetic polyneuropathy, with long-term current use of insulin (HCC)- Primary Major depressive disorder, recurrent, moderate (HCC) Major depressive disorder, recurrent episode, moderate TRUONG on CPAP Obstructive sleep apnea, adult Coronary artery disease involving creek coronary artery of creek heart without angina pectoris Primary hypertension Unspecified essential hypertension Gastroesophageal reflux disease, unspecified whether esophagitis present Ventral hernia without obstruction or gangrene Unspecified ventral hernia without mention of obstruction or gangrene Diabetes mellitus type 2, insulin dependent ([facility]) Class 2 severe obesity due to excess calories with serious comorbidity in adult, unspecified BMI ([facility]) Anxiety and depression Generalized anxiety disorder with panic attacks Tobacco use disorder Mixed hyperlipidemia Mixed hyperlipidemia Type 2 diabetes mellitus without complications ([facility]) Encounter for screening mammogram for malignant neoplasm of breast Diabetic neuropathy, painful ([facility]) Type II or unspecified type diabetes mellitus with neurological manifestations, not stated as uncontrolled Vitamin deficiency Unspecified vitamin deficiency Easy bruising Other symptoms involving skin and integumentary tissues Atherosclerotic heart disease of creek coronary artery without angina pectoris Pulmonary emphysema, unspecified emphysema type (HCC) Type 2 diabetes mellitus with diabetic neuropathy, unspecified ([facility]) Type 2 diabetes mellitus without complication, with long-term current use of insulin ([facility]) Type 2 diabetes mellitus with diabetic polyneuropathy, with long-term current use of insulin ([facility]) documented in this encounter [facility] HealthcareEvaluation note* Diagnosis Type 2 diabetes mellitus with diabetic polyneuropathy, with long-term current use of insulin ([facility])- Primary Primary hypertension Unspecified essential hypertension Diabetes mellitus type 2, insulin dependent (HCC)- Primary Type 2 diabetes mellitus with diabetic polyneuropathy, with long-term current use of insulin ([facility]) Primary hypertension Unspecified essential hypertension Coronary artery disease involving creek coronary artery of creek heart without angina pectoris Tobacco use disorder Class 3 severe obesity due to excess calories without serious comorbidity with body mass index (BMI) of 40.0 to 44.9 in adult ([facility]) Pulmonary emphysema, unspecified emphysema type ([facility]) Wheezing Diabetes mellitus type 2, insulin dependent (HCC)- Primary Yeast infection Bilateral nephrolithiasis Primary hypertension Unspecified essential hypertension Coronary artery disease involving creek coronary artery of creek heart without angina pectoris Obesity (BMI 30-39.9) Ventral hernia without obstruction or gangrene- Primary Unspecified ventral hernia without mention of obstruction or gangrene Diabetes mellitus type 2, insulin dependent (HCC) Type 2 diabetes mellitus with diabetic polyneuropathy, with long-term current use of insulin (HCC) Primary hypertension Unspecified essential hypertension Coronary artery disease involving creek coronary artery of creek heart without angina pectoris Gastroesophageal reflux disease, unspecified whether esophagitis present Obesity (BMI 30-39.9) Tobacco use disorder Generalized anxiety disorder with panic attacks Type 2 diabetes mellitus with diabetic polyneuropathy, with long-term current use of insulin (HCC)- Primary Major depressive disorder, recurrent, moderate (HCC) Major depressive disorder, recurrent episode, moderate TRUONG on CPAP Obstructive sleep apnea, adult Coronary artery disease involving creek coronary artery of creek heart without angina pectoris Primary hypertension Unspecified essential hypertension Gastroesophageal reflux disease, unspecified whether esophagitis present Ventral hernia without obstruction or gangrene Unspecified ventral hernia without mention of obstruction or gangrene Diabetes mellitus type 2, insulin dependent ([facility]) Class 2 severe obesity due to excess calories with serious comorbidity in adult, unspecified BMI ([facility]) Anxiety and depression Generalized anxiety disorder with panic attacks Tobacco use disorder Mixed hyperlipidemia Mixed hyperlipidemia Type 2 diabetes mellitus without complications ([facility]) Encounter for screening mammogram for malignant neoplasm of breast Diabetic neuropathy, painful ([facility]) Type II or unspecified type diabetes mellitus with neurological manifestations, not stated as uncontrolled Vitamin deficiency Unspecified vitamin deficiency Easy bruising Other symptoms involving skin and integumentary tissues Atherosclerotic heart disease of creek coronary artery without angina pectoris Pulmonary emphysema, unspecified emphysema type (HCC) Type 2 diabetes mellitus with diabetic neuropathy, unspecified (HCC) Coronary atherosclerosis Coronary atherosclerosis of unspecified type of vessel, creek or graft Wheezing Other hemorrhoids documented in this encounter [facility] HealthcareEvaluation note* Diagnosis Type 2 diabetes mellitus with diabetic polyneuropathy, with long-term current use of insulin (HCC)- Primary Primary hypertension Unspecified essential hypertension Diabetes mellitus type 2, insulin dependent (HCC)- Primary Type 2 diabetes mellitus with diabetic polyneuropathy, with long-term current use of insulin (HCC) Primary hypertension Unspecified essential hypertension Coronary artery disease involving creek coronary artery of creek heart without angina pectoris Tobacco use disorder Class 3 severe obesity due to excess calories without serious comorbidity with body mass index (BMI) of 40.0 to 44.9 in adult ([facility]) Pulmonary emphysema, unspecified emphysema type (HCC) Wheezing Diabetes mellitus type 2, insulin dependent (HCC)- Primary Yeast infection Bilateral nephrolithiasis Primary hypertension Unspecified essential hypertension Coronary artery disease involving creek coronary artery of creek heart without angina pectoris Obesity (BMI 30-39.9) Ventral hernia without obstruction or gangrene- Primary Unspecified ventral hernia without mention of obstruction or gangrene Diabetes mellitus type 2, insulin dependent (HCC) Type 2 diabetes mellitus with diabetic polyneuropathy, with long-term current use of insulin (HCC) Primary hypertension Unspecified essential hypertension Coronary artery disease involving creek coronary artery of creek heart without angina pectoris Gastroesophageal reflux disease, unspecified whether esophagitis present Obesity (BMI 30-39.9) Tobacco use disorder Generalized anxiety disorder with panic attacks Type 2 diabetes mellitus with diabetic polyneuropathy, with long-term current use of insulin (HCC)- Primary Major depressive disorder, recurrent, moderate ([facility]) Major depressive disorder, recurrent episode, moderate TRUONG on CPAP Obstructive sleep apnea, adult Coronary artery disease involving creek coronary artery of creek heart without angina pectoris Primary hypertension Unspecified essential hypertension Gastroesophageal reflux disease, unspecified whether esophagitis present Ventral hernia without obstruction or gangrene Unspecified ventral hernia without mention of obstruction or gangrene Diabetes mellitus type 2, insulin dependent ([facility]) Class 2 severe obesity due to excess calories with serious comorbidity in adult, unspecified BMI ([facility]) Anxiety and depression Generalized anxiety disorder with panic attacks Tobacco use disorder Mixed hyperlipidemia Mixed hyperlipidemia Type 2 diabetes mellitus without complications ([facility]) Encounter for screening mammogram for malignant neoplasm of breast Diabetic neuropathy, painful ([facility]) Type II or unspecified type diabetes mellitus with neurological manifestations, not stated as uncontrolled Vitamin deficiency Unspecified vitamin deficiency Easy bruising Other symptoms involving skin and integumentary tissues Atherosclerotic heart disease of creek coronary artery without angina pectoris Pulmonary emphysema, unspecified emphysema type (HCC) Type 2 diabetes mellitus with diabetic neuropathy, unspecified ([facility]) Vitamin B12 deficiency- Primary Other B-complex deficiencies Vitamin D deficiency documented in this encounter [facility] HealthcareEvaluation note* Diagnosis Type 2 diabetes mellitus with diabetic polyneuropathy, with long-term current use of insulin (HCC)- Primary Primary hypertension Unspecified essential hypertension Diabetes mellitus type 2, insulin dependent (HCC)- Primary Type 2 diabetes mellitus with diabetic polyneuropathy, with long-term current use of insulin ([facility]) Primary hypertension Unspecified essential hypertension Coronary artery disease involving creek coronary artery of creek heart without angina pectoris Tobacco use disorder Class 3 severe obesity due to excess calories without serious comorbidity with body mass index (BMI) of 40.0 to 44.9 in adult ([facility]) Pulmonary emphysema, unspecified emphysema type (HCC) Wheezing Diabetes mellitus type 2, insulin dependent ([facility])- Primary Yeast infection Bilateral nephrolithiasis Primary hypertension Unspecified essential hypertension Coronary artery disease involving creek coronary artery of creek heart without angina pectoris Obesity (BMI 30-39.9) Ventral hernia without obstruction or gangrene- Primary Unspecified ventral hernia without mention of obstruction or gangrene Diabetes mellitus type 2, insulin dependent (HCC) Type 2 diabetes mellitus with diabetic polyneuropathy, with long-term current use of insulin ([facility]) Primary hypertension Unspecified essential hypertension Coronary artery disease involving creek coronary artery of creek heart without angina pectoris Gastroesophageal reflux disease, unspecified whether esophagitis present Obesity (BMI 30-39.9) Tobacco use disorder Generalized anxiety disorder with panic attacks Type 2 diabetes mellitus with diabetic polyneuropathy, with long-term current use of insulin ([facility])- Primary Major depressive disorder, recurrent, moderate ([facility]) Major depressive disorder, recurrent episode, moderate TRUONG on CPAP Obstructive sleep apnea, adult Coronary artery disease involving creek coronary artery of creek heart without angina pectoris Primary hypertension Unspecified essential hypertension Gastroesophageal reflux disease, unspecified whether esophagitis present Ventral hernia without obstruction or gangrene Unspecified ventral hernia without mention of obstruction or gangrene Diabetes mellitus type 2, insulin dependent ([facility]) Class 2 severe obesity due to excess calories with serious comorbidity in adult, unspecified BMI ([facility]) Anxiety and depression Generalized anxiety disorder with panic attacks Tobacco use disorder Mixed hyperlipidemia Mixed hyperlipidemia Type 2 diabetes mellitus without complications ([facility]) Encounter for screening mammogram for malignant neoplasm of breast Diabetic neuropathy, painful ([facility]) Type II or unspecified type diabetes mellitus with neurological manifestations, not stated as uncontrolled Vitamin deficiency Unspecified vitamin deficiency Easy bruising Other symptoms involving skin and integumentary tissues Atherosclerotic heart disease of creek coronary artery without angina pectoris Pulmonary emphysema, unspecified emphysema type (HCC) Type 2 diabetes mellitus with diabetic neuropathy, unspecified ([facility]) Abdominal pain, unspecified abdominal location- Primary Gastroesophageal reflux disease, unspecified whether esophagitis present Hemorrhoids, unspecified hemorrhoid type Atherosclerotic heart disease of creek coronary artery without angina pectoris Pulmonary emphysema, unspecified emphysema type (HCC) Vitamin D deficiency Diabetes mellitus type 2, insulin dependent (HCC) Mixed hyperlipidemia Mixed hyperlipidemia Type 2 diabetes mellitus without complications (HCC) Gastro-esophageal reflux disease without esophagitis Type 2 diabetes mellitus without complication, with long-term current use of insulin ([facility]) documented in this encounter [facility] HealthcareEvaluation note* Diagnosis Type 2 diabetes mellitus with diabetic polyneuropathy, with long-term current use of insulin (HCC)- Primary Primary hypertension Unspecified essential hypertension Diabetes mellitus type 2, insulin dependent (HCC)- Primary Type 2 diabetes mellitus with diabetic polyneuropathy, with long-term current use of insulin (HCC) Primary hypertension Unspecified essential hypertension Coronary artery disease involving creek coronary artery of creek heart without angina pectoris Tobacco use disorder Class 3 severe obesity due to excess calories without serious comorbidity with body mass index (BMI) of 40.0 to 44.9 in adult ([facility]) Pulmonary emphysema, unspecified emphysema type ([facility]) Wheezing Diabetes mellitus type 2, insulin dependent ([facility])- Primary Yeast infection Bilateral nephrolithiasis Primary hypertension Unspecified essential hypertension Coronary artery disease involving creek coronary artery of creek heart without angina pectoris Obesity (BMI 30-39.9) Ventral hernia without obstruction or gangrene- Primary Unspecified ventral hernia without mention of obstruction or gangrene Diabetes mellitus type 2, insulin dependent (HCC) Type 2 diabetes mellitus with diabetic polyneuropathy, with long-term current use of insulin ([facility]) Primary hypertension Unspecified essential hypertension Coronary artery disease involving creek coronary artery of creek heart without angina pectoris Gastroesophageal reflux disease, unspecified whether esophagitis present Obesity (BMI 30-39.9) Tobacco use disorder Generalized anxiety disorder with panic attacks Type 2 diabetes mellitus with diabetic polyneuropathy, with long-term current use of insulin ([facility])- Primary Major depressive disorder, recurrent, moderate ([facility]) Major depressive disorder, recurrent episode, moderate TRUONG on CPAP Obstructive sleep apnea, adult Coronary artery disease involving creek coronary artery of creek heart without angina pectoris Primary hypertension Unspecified essential hypertension Gastroesophageal reflux disease, unspecified whether esophagitis present Ventral hernia without obstruction or gangrene Unspecified ventral hernia without mention of obstruction or gangrene Diabetes mellitus type 2, insulin dependent ([facility]) Class 2 severe obesity due to excess calories with serious comorbidity in adult, unspecified BMI ([facility]) Anxiety and depression Generalized anxiety disorder with panic attacks Tobacco use disorder Mixed hyperlipidemia Mixed hyperlipidemia Type 2 diabetes mellitus without complications ([facility]) Encounter for screening mammogram for malignant neoplasm of breast Diabetic neuropathy, painful ([facility]) Type II or unspecified type diabetes mellitus with neurological manifestations, not stated as uncontrolled Vitamin deficiency Unspecified vitamin deficiency Easy bruising Other symptoms involving skin and integumentary tissues Atherosclerotic heart disease of creek coronary artery without angina pectoris Pulmonary emphysema, unspecified emphysema type (HCC) Type 2 diabetes mellitus with diabetic neuropathy, unspecified (HCC) Abdominal pain, unspecified abdominal location- Primary Gastroesophageal reflux disease, unspecified whether esophagitis present Hemorrhoids, unspecified hemorrhoid type Atherosclerotic heart disease of creek coronary artery without angina pectoris Pulmonary emphysema, unspecified emphysema type (HCC) Vitamin D deficiency Diabetes mellitus type 2, insulin dependent (HCC) Mixed hyperlipidemia Mixed hyperlipidemia Type 2 diabetes mellitus without complications (HCC) Gastro-esophageal reflux disease without esophagitis Type 2 diabetes mellitus without complication, with long-term current use of insulin (HCC) Type 2 diabetes mellitus with diabetic polyneuropathy, with long-term current use of insulin ([facility]) Wheezing documented in this encounter [facility] HealthcareHospital course Narrative No data available for this section [facility] Discharge instructions No data available for this section [facility]ructionsNot on filedocumented in this encounter [facility] No data available for this section [facility] for [facility] Narrative* Other Medical (Routine) - Closed Specialty Diagnoses / Procedures Referred By Rica t Referred To Contact Neurology Diagnoses Type 2 diabetes mellitus with diabetic polyneuropathy (CMS/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 ([facility]) Procedures IN NEEDLE EMG EA EXTREMTY W/PARASPINL AREA COMPLETE IN NERVE CONDUCTION STUDIES 9-10 STUDIES Yanet Junior NP [address] [place] [address] Phone: tel: fax: Mathew Deleon MD [address] [place] [address] Phone: tel: fax: Referral ID Status Reason Start Date Expiration Date V isits Requested Visits Authorized [id number] Closed Perform Procedure 05/04/2024 10/31/2024 1 1 [facility] Healthcare Summary Purpose Family History Relationship Condition Age at Onset Recorded Date/T dee Not Specified No pertinent family history Unknown Advance Directives Advance Directive Response Recorded Date/ Time Advance Directives No September 17 0 7:58am Date Activated Date Inactivated Comments 10/09/2019 8:05 PM 10/11/2019 10:59 PM Date Activated Date Inactivated Comments 09/30/2019 12:33 AM 09/30/2019 6:08 PM Date Activated Date Inactivated Comments 09/06/2019 11:57 PM 09/11/2019 4:54 PM Chief Complaint and Reason for Visit Chief Complaint abscess Reason for Referral Specialty Diagnoses / Procedures Referred By Contac t Referred To Contact Diagnoses Diabetes mellitus type 2, insulin dependent ([facility]) Yanet Junior, FADUMO [address] [place] [address] Referral ID Status Reason Start Date Expiration Date V isits Requested Visits Authorized [id number] Pending Review 12/03/2023 05/31/2024 1 1 Additional Source Comments INFORMATION SOURCE (unrecogn ized section and content) DATE CREATED AUTHOR 08/24/2021 [facility] DATE CREATED AUTHOR AUTHOR'S ORGANIZ ATION 08/01/2023 [facility] DATE CREATED AUTHOR AUTHOR'S ORGANIZ ATION 08/10/2023 [facility] DATE CREATED AUTHOR AUTHOR'S ORGANIZ ATION 09/20/2023 [facility] DATE CREATED AUTHOR AUTHOR'S ORGANIZ ATION 10/01/2023 [facility] DATE CREATED AUTHOR AUTHOR'S ORGANIZ ATION 10/09/2023 [facility] DATE CREATED AUTHOR AUTHOR'S ORGANIZ ATION 10/09/2023 [facility] DATE CREATED AUTHOR AUTHOR'S ORGANIZ ATION 10/10/2023 [facility] DATE CREATED AUTHOR AUTHOR'S ORGANIZ ATION 2023 [facility] DATE CREATED AUTHOR AUTHOR'S ORGANIZ ATION 10/27/2023 [facility] DATE CREATED AUTHOR AUTHOR'S ORGANIZ ATION 12/05/2023 [facility] DATE CREATED AUTHOR AUTHOR'S ORGANIZ ATION 01/04/2024 [facility] DATE CREATED AUTHOR AUTHOR'S ORGANIZ ATION 01/20/2024 [facility] DATE CREATED AUTHOR AUTHOR'S ORGANIZ ATION 04/22/2024 [facility] DATE CREATED AUTHOR AUTHOR'S ORGANIZ ATION 05/23/2024 [facility] DATE CREATED AUTHOR AUTHOR'S ORGANIZ ATION 07/10/2024 [facility] DATE CREATED AUTHOR AUTHOR'S ORGANIZ ATION 10/04/2024 [facility] DATE CREATED AUTHOR AUTHOR'S ORGANIZ ATION 10/13/2024 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- Emergency Provider Active Start: October 11, 2023 End: October 11, 2023 Director Women Relationship Specialty Start Date End Date Unallocated, Noms Iris, [address] [place] [address] PCP - General Family Medicine 12/30/23 Yanet Junior NP [address] [place] [address] Nurse Practitioner Family Medicine 12/10/23 Director Women Relationship Specialty Start Date End Date Tate Martinez MD [address] [place] [address] PCP - General Family Medicine 04/03/23 Yanet Junior NP [address] [place] [address] Nurse Practitioner Family Medicine 12/10/23 Director Women Relationship Specialty Start Date End Date Unallocated, Noms MD Iris [address] [place] [address] PCP - General Family Medicine 12/30/23 Yanet Junior NP [address] [place] [address] Nurse Practitioner Family Medicine 12/10/23 Director Women Relationship Specialty Start Date End Date Unallocated, Noms MD Iris [address] [place] [address] PCP - General Family Medicine 12/30/23 Yanet Junior NP [address] [place] [address] Nurse Practitioner Family Medicine 12/10/23 Director Women Relationship Specialty Start Date End Date Unallocated, Noms MD Iris [address] [place] [address] PCP - General Family Medicine 12/30/23 Yanet Junior NP [address] [place] [address] Nurse Practitioner Family Medicine 12/10/23 Director Women Relationship Specialty Start Date End Date Tate Martinez MD [address] [place] [address] PCP - General Family Medicine 01/14/24 Yanet Junior NP [address] [place] [address] Nurse Practitioner Family Medicine 12/10/23 Director Women Relationship Specialty Start Date End Date Tate Martinez MD [address] [place] [address] PCP - General Family Medicine 01/14/24 Yanet Junior NP [address] [place] [address] Nurse Practitioner Family Medicine 12/10/23 Director Women Relationship Specialty Start Date End Date Tate Martinez MD [address] [place] [address] PCP - General Family Medicine 01/14/24 Yanet Junior NP [address] [place] [address] Nurse Practitioner Family Medicine 12/10/23 Director Women Relationship Specialty Start Date End Date Tate Martinez MD [address] [place] [address] PCP - General Family Medicine 01/14/24 Yanet Junior NP [address] [place] [address] Nurse Practitioner Family Medicine 12/10/23 Director Women Relationship Specialty Start Date End Date Tate Martinez MD [address] [place] [address] PCP - General Family Medicine 01/14/24 Yanet Junior NP [address] [place] [address] Nurse Practitioner Family Medicine 12/10/23 Director Women Relationship Specialty Start Date End Date Tate Martinez MD [address] [place] [address] PCP - General Family Medicine 01/14/24 Yanet Junior NP [address] [place] [address] Nurse Practitioner Family Medicine 12/10/23 Director Women Relationship Specialty Start Date End Date Tate Martinez MD [address] [place] [address] PCP - General Family Medicine 01/14/24 Yanet Junior NP [address] [place] [address] Nurse Practitioner Family Medicine 12/10/23 Director Women Relationship Specialty Start Date End Date Tate Martinez MD [address] [place] [address] PCP - General Family Medicine 04/03/23 Director Women Relationship Specialty Start Date End Date Tate Martinez MD [address] [place] [address] PCP - General Family Medicine 04/03/23 Director Women Relationship Specialty Start Date End Date Tate Martinez MD [address] [place] [address] PCP - General Family Medicine 04/03/23 Director Women Relationship Specialty Start Date End Date Tate Martinez MD [address] [place] [address] PCP - General Family Medicine 04/03/23 Director Women Relationship Specialty Start Date End Date Tate Martinez MD [address] [place] [address] PCP - General Family Medicine 04/03/23 Director Women Relationship Specialty Start Date End Date Tate Martinez MD [address] [place] [address] PCP - General Family Medicine 04/03/23 Director Women Relationship Specialty Start Date End Date Tate Martinez MD [address] [place] [address] PCP - General Family Medicine 01/14/24 Yanet Junior NP [address] [place] [address] Nurse Practitioner Family Medicine 12/10/23 Director Women Relationship Specialty Start Date End Date Tate Martinez MD [address] [place] [address] PCP - General Family Medicine 01/14/24 Yanet Junior NP [address] [place] [address] Nurse Practitioner Family Medicine 12/10/23 Director Women Relationship Specialty Start Date End Date Tate Martinez MD [address] [place] [address] PCP - General Family Medicine 01/14/24 Yanet Junior NP [address] [place] [address] Nurse Practitioner Family Medicine 12/10/23 Director Women Relationship Specialty Start Date End Date Tate Martinez MD [address] [place] [address] PCP - General Family Medicine 01/14/24 Yanet Junior NP [address] [place] [address] Nurse Practitioner Family Medicine 12/10/23 Director Women Relationship Specialty Start Date End Date Tate Martinez MD [address] [place] [address] PCP - General Family Medicine 01/14/24 Yanet Junior NP [address] [place] [address] Nurse Practitioner Family Medicine 12/10/23 Director Women Relationship Specialty Start Date End Date Tate Martinez MD [address] [place] [address] PCP - General Family Medicine 01/14/24 Yanet Junior NP [address] [place] [address] Nurse Practitioner Family Medicine 12/10/23 Director Women Relationship Specialty Start Date End Date Tate Martinez MD [address] [place] [address] PCP - General [facility] 01/14/24 Yanet Junior NP [address] [place] [address] Nurse Practitioner Family Medicine 12/10/23 Director Women Relationship Specialty Start Date End Date Tate Martinez MD [address] [place] [address] PCP - General [facility] 01/14/24 Yanet Junior NP [address] [place] [address] PCP - [facility] 03/16/24 Yanet Junior NP [address] [place] [address] Nurse Practitioner Family [facility] 12/10/23 Director Women Relationship Specialty Start Date End Date Tate Martinez MD [address] [place] [address] PCP - General Family [facility] 01/14/24 Yanet Junior NP [address] [place] [address] PCP [facility] 03/16/24 Yanet Junior NP [address] [place] [address] Nurse Practitioner Family Medicine 12/10/23 Director Women Relationship Specialty Start Date End Date Tate Martinez MD [address] [place] [address] PCP - General Family [facility] 01/14/24 Yanet Junior NP [address] [place] [address] PCP - [facility] 03/16/24 Yanet Junior NP [address] [place] [address] Nurse Practitioner Family [facility] 12/10/23 Juhi Orellana DO [address] [place] [address] Referring Physician Neurology 05/16/24 Director Women Relationship Specialty Start Date End Date Tate Martinez MD [address] [place] [address] PCP - General [facility] 01/14/24 Yanet Junior NP [address] [place] [address] PCP - [facility] 03/16/24 Yanet Junior NP [address] [place] [address] Nurse Practitioner Family Medicine 12/10/23 Juhi Orellana DO [address] [place] [address] Referring Physician Neurology 05/16/24 Director Women Relationship Specialty Start Date End Date Tate Martinez MD [address] [place] [address] PCP - General Family [facility] 01/14/24 Yanet Junior NP [address] [place] [address] PCP - [facility] 03/16/24 Yanet Junior NP [address] [place] [address] Nurse Practitioner Family Medicine 12/10/23 Juhi Orellana DO [address] [place] [address] Referring Physician Neurology 05/16/24 Director Women Relationship Specialty Start Date End Date Tate Martinez MD [address] [place] [address] PCP - General [facility] 01/14/24 Yanet Junior NP [address] [place] [address] PCP - [facility] 03/16/24 Yanet Junior NP [address] [place] [address] Nurse Practitioner Family Medicine 12/10/23 Juhi Orellana DO [address] [place] [address] Referring Physician Neurology 05/16/24 Director Women Relationship Specialty Start Date End Date Tate Martinez MD [address] [place] [address] PCP - General Family [facility] 01/14/24 Yanet Junior, FADUMO [address] [place] [address] PCP - [facility] 03/16/24 Yanet Junior NP [address] [place] [address] Nurse Practitioner Family [facility] 12/10/23 Juhi Orellana DO [address] [place] [address] Referring Physician Neurology 05/16/24 Director Women Relationship Specialty Start Date End Date Tate Martinez MD [address] [place] [address] PCP - General [facility] 01/14/24 Yanet Junior NP [address] [place] [address] PCP - [facility] 03/16/24 Yanet Junior NP [address] [place] [address] Nurse Practitioner Family Medicine 12/10/23 Juhi Orellana DO [address] [place] [address] Referring Physician Neurology 05/16/24 Director Women Relationship Specialty Start Date End Date Tate Martinez MD [address] [place] [address] PCP - General [facility] 01/14/24 Yanet Junior, FADUMO [address] [place] [address] PCP - [facility] 03/16/24 Yanet Junior NP [address] [place] [address] Nurse Practitioner Family [facility] 12/10/23 Juhi Orellana DO [address] [place] [address] Referring Physician Neurology 05/16/24 Director Women Relationship Specialty Start Date End Date Tate Martinez MD [address] [place] [address] PCP - [facility] 01/14/24 Yanet Junior NP [address] [place] [address] PCP - [facility] 03/16/24 Yanet Junior NP [address] [place] [address] Nurse Practitioner Family Medicine 12/10/23 Juhi Orellana DO [address] [place] [address] Referring Physician Neurology 05/16/24 Director Women Relationship Specialty Start Date End Date Tate Martinez MD [address] [place] [address] PCP - General Family [facility] 01/14/24 Yanet Junior NP [address] [place] [address] PCP - [facility] 03/16/24 Yanet Junior NP [address] [place] [address] Nurse Practitioner Family [facility] 12/10/23 Juhi Orellana DO [address] [place] [address] Referring Physician Neurology 05/16/24 Director Women Relationship Specialty Start Date End Date Tate Martinez MD [address] [place] [address] PCP - [facility] 01/14/24 Yanet Junior NP [address] [place] [address] PCP - [facility] 03/16/24 Yanet Junior NP [address] [place] [address] Nurse Practitioner Family Medicine 12/10/23 Jhui Orellana DO [address] [place] [address] Referring Physician Neurology 05/16/24 Director Women Relationship Specialty Start Date End Date Tate Martinez MD [address] [place] [address] PCP - General [facility] 01/14/24 Yanet Junior NP [address] [place] [address] PCP - [facility] 03/16/24 Yanet Junior, FADUMO [address] [place] [address] Nurse Practitioner Family [facility] 12/10/23 Juhi Orellana DO [address] [place] [address] Referring Physician Neurology 05/16/24 Director Women Relationship Specialty Start Date End Date Tate Martinez MD [address] [place] [address] PCP - [facility] 01/14/24 Yanet Junior NP [address] [place] [address] PCP - [facility] 03/16/24 Yanet Junior NP [address] [place] [address] Nurse Practitioner Family Medicine 12/10/23 Juhi Orellana DO [address] [place] [address] Referring Physician Neurology 05/16/24 Director Women Relationship Specialty Start Date End Date Tate Martinez MD [address] [place] [address] PCP - General [facility] 01/14/24 Yanet Junior, FADUMO [address] [place] [address] PCP - [facility] 03/16/24 Yanet Junior, FADUMO [address] [place] [address] Nurse Practitioner Family [facility] 12/10/23 Juhi Orellana DO [address] [place] [address] Referring Physician Neurology 05/16/24 Director Women Relationship Specialty Start Date End Date Tate Martinez MD [address] [place] [address] PCP - [facility] 01/14/24 Yanet Junior NP [address] [place] [address] PCP - [facility] 03/16/24 Yanet Junior, FADUMO [address] [place] [address] Nurse Practitioner Family Medicine 12/10/23 Juhi Orellana DO [address] [place] [address] Referring Physician Neurology 05/16/24 Director Women Relationship Specialty Start Date End Date Tate Martinez MD [address] [place] [address] PCP - General Family [facility] 01/14/24 Yanet Junior NP [address] [place] [address] PCP - [facility] 03/16/24 Yanet Junior NP [address] [place] [address] Nurse Practitioner Family Medicine 12/10/23 Juhi Orellana DO [address] [place] [address] Referring Physician Neurology 05/16/24 Reason for Visit (unrecogniz ed section and content) Reason Comments Med Refill Reason Onset Date Comments Med Refill 01/15/2024 Reason Onset Date Comments Med Refill 11/26/2023 Reason Onset Date Comments Med Refill 12/09/2023 Reason Onset Date Comments HIM 10/07/2023 HIM Reason Onset Date Comments Med Refill 05/01/2024 Reason Onset Date Comments Med Refill 06/28/2024 Reason Onset Date Comments Med Refill 07/08/2024 Reason Onset Date Comments Med Refill 07/18/2024 Reason Onset Date Comments Med Refill 08/31/2024 Reason Onset Date Comments Med Refill 09/15/2024 Reason Onset Date Comments Med Refill 09/18/2024 Reason Onset Date Comments Med Refill 09/29/2024 Reason Comments Diabetes Reason Onset Date Comments Med Refill 10/19/2024 Goals (unrecognized section and content) Goals may be documented in a n alternate section FOR RECORDS PERTAINING TO PATIENTS WHO ARE [...] BE BASED ON THE PRIMARY CLINICAL RECORDS. [facility]. provides no warranty or guarantee of the accuracy or completeness of information in this document.
[2024-10-22 09:12] LABS: Hematocrit 44.9 % (36.0-48.0); Hemoglobin 14.3 g/dL (12.0-16.0); Immature Granulocytes Abs Auto 0.02 10^3/uL (0.00-0.03); Immature Granulocytes Pct Auto 0.3 % (0.0-0.5); Lymphocytes Absolute Auto 1.6 10^3/uL (1.2-3.8); Mean Corpuscular HGB Conc 31.8 g/dL (29.9-35.2); Mean Corpuscular Hemoglobin 30.2 pg (26.7-34.0); Mean Corpuscular Volume 94.9 fL (81.0-99.0); Platelet Count 239 10^3/uL (150-450); Red Blood Count 4.73 10^6/uL (4.20-5.40); White Blood Count 7.0 10^3/uL (4.0-11.0)
[2024-10-22 09:14] LABS: Glucose Urine UA >=1000 mg/dL (NEGATIVE)
[2024-10-22 09:17] LABS: HCG Qualitative Urine* NEGATIVE (NEGATIVE)
[2024-10-22 09:25] LABS: Alanine Aminotransferase 22 U/L (14-59); Albumin Globulin Ratio 1.1; Albumin Level 4.1 g/dL (3.4-5.0); Alkaline Phosphatase 138 U/L (46-116); Anion Gap 12.3; Aspartate Amino Transferase 25 U/L (15-37); Blood Urea Nitrogen 20.0 mg/dL (7.0-18.0); Calcium 9.8 mg/dL (8.5-10.1); Carbon Dioxide 28.8 mmol/L (21.0-32.0); Chloride 105 mmol/L (98-107); Estimated GFR (African America >60 (>=60 mL/min/1.73m^2); Estimated GFR (Non-African Ame >60 (>=60 mL/min/1.73m^2); Globulin 3.6 g/dL; Glucose 92 mg/dL (74-106); Potassium 4.1 mmol/L (3.5-5.1); Sodium 142 mmol/L (136-145); Total Protein 7.7 g/dL (6.4-8.2)
[2024-10-22 09:25] LABS: Cast Seen? NONE SEEN #/LPF (NONE SEEN); Crystals Seen? None Seen #/HPF (None Seen); Urine Culture Indicated NO
--- NOTE | 2024-10-22 09:26 | ED.ABDPAIN1 ---
HPI - Abdominal Pain General Chief Complaint: Abdominal Pain Stated Complaint: WEAKNESS BLOOD IN STOOLS Time Seen by Provider: 10/22/24 08:44 Source: patient Mode of arrival: Wheelchair Limitations: no limitations History of Present Illness HPI narrative: The patient is a 44-year-old female is coming to the ER with suprapubic discomfort and rectal pain, initially mentioned that she have some flank pain and blood in urine, I did ask the patient if she was evaluated before and she said that she was just evaluated in [facility] yesterday when she was evaluated with a CAT scan and blood work , the patient said that she does not know the result of those because she had morphine for pain The patient did request to get morphine today for pain as well she mentioned that she has been having some blood in stool The patient denies any nausea vomiting but she have no appetite, she already was taking MiraLAX for constipation The patient supposed to see her underwear finisher on Thursday morning for colonoscopy Related Data Home Medications ?Medication ?Instructions ?Recorded ?Confirmed alprazolam 1 mg tablet (Xanax) 0.5 mg PO TID 08/25/22 10/22/24 aspirin 81 mg tablet,delayed 81 mg PO DAILY 08/25/22 10/07/23 release atorvastatin 80 mg tablet 80 mg PO QPM 08/25/22 10/22/24 clopidogrel 75 mg tablet (Plavix) 75 mg PO DAILY 08/25/22 10/22/24 empagliflozin 25 mg tablet 25 mg PO DAILY 08/25/22 10/22/24 (Jardiance) ezetimibe 10 mg tablet 10 mg PO DAILY 08/25/22 10/22/24 hydroxyzine pamoate 25 mg capsule 25 mg PO BID PRN anxiety 08/25/22 10/07/23 losartan 25 mg tablet 25 mg PO DAILY 08/25/22 10/22/24 metformin 1,000 mg tablet 1,000 mg PO BID 08/25/22 10/07/23 metoprolol succinate 25 mg 25 mg PO BID 08/25/22 10/07/23 tablet,extended release 24 hr mounjaro 12.5 mg IM .weekly 08/25/22 10/07/23 omeprazole 20 mg capsule,delayed 20 mg PO DAILY PRN stomach upset 08/25/22 10/22/24 release gabapentin 400 mg capsule 800 mg PO TID 08/26/22 10/07/23 promethazine 25 mg tablet 25 mg PO TID PRN nausea and 10/03/23 10/07/23 vomiting Previous Rx's ?Medication ?Instructions ?Recorded oxycodone-acetaminophen 5 mg-325 1 tab PO Q6H PRN pain #6 tabs 10/02/22 mg tablet (Percocet) oxycodone-acetaminophen 5 mg-325 1 tab PO Q6H PRN pain 3 days #15 10/07/23 mg tablet (Percocet) tabs hydrocortisone acetate 25 mg 25 mg OK BID PRN hemorrhoids #24 ea 10/22/24 rectal suppository (Anucort-HC) lidocaine 5 % topical cream 1 applic topical TID PRN pain #15 10/22/24 (RectiCare) grams Allergies Allergy/AdvReac Type Severity Reaction Status Date / Time penicillin G AdvReac Intermediate Abdominal Verified 10/07/23 16:10 Pain tramadol (From Ultram) AdvReac Intermediate Abdominal Verified 10/07/23 16:10 Pain acetaminophen (From Vicodin) AdvReac Nausea Verified 10/07/23 16:10 hydrocodone (From Vicodin) AdvReac Nausea Verified 10/07/23 16:10 Review of Systems ROS Status of ROS 10 or more systems reviewed and unremarkable except as noted in history and below [facility] Medical History (Updated 10/22/24 @ 09:27 by Kristen Cisneros MD) Kidney stones ?N20.0 - Calculus of kidney (ICD-10) Neuropathy ?G62.9 - Polyneuropathy, unspecified (ICD-10) Myocardial infarction ?I21.9 - Acute myocardial infarction, unspecified (ICD-10) JARAD (generalized anxiety disorder) ?F41.1 - Generalized anxiety disorder (ICD-10) HLD (hyperlipidemia) ?E78.5 - Hyperlipidemia, unspecified (ICD-10) HTN (hypertension) ?I10 - Essential (primary) hypertension (ICD-10) CAD (coronary artery disease) ?I25.10 - Atherosclerotic heart disease of [place] coronary artery without angina pectoris (ICD-10) Diabetes ?E11.9 - Type 2 diabetes mellitus without complications (ICD-10) Surgical History History of heart artery stent ?Z95.5 - Presence of coronary angioplasty implant and graft (ICD-10) Family History Mother Family history of CHF (congestive heart failure) Father Family history of hypertension Family/Other Family history of hypertension Social History Within the past year, how often did you have a drink containing alcohol: never Score interpretation: A score less than 3 is consistent with normal alcohol consumption. Smoking status: Former smoker Non-prescribed substance use: denies use Previous occupational history: none Highest level of school completed/degree received: Associate degree: academic program Are you now , , , , never or living with a partner: In a typical week, how many times do you talk on the telephone with family, friends, or neighbors: 3 or more times per week How often do you get together with friends or relatives: 3 or more times per week How often do you attend buddhist or hinduism services: never Little interest or pleasure in doing things: not at all Feeling down, depressed, or hopeless: not at all Feel stressed/tense/nervous/anxious/difficulty sleeping: not at all Do you think of yourself as: straight/heterosexual Gender Identity: female Exam Narrative Exam Narrative: Nurses notes and vital signs reviewed and patient is not hypoxic. General: Well-appearing and in no apparent distress. Skin: Warm, dry, no pallor noted. No rash. Head: Normocephalic, atraumatic. Neck: Supple, non-tender. Eye: Pupils are equal, round and EOMI. No scleral icterus. Ears, Nose, Mouth, and Throat: TM are clear, no nasal mucosal hypertrophy. Oral mucosa is moist, no posterior oropharynx erythema, uvula is mid-line Cardiovascular: Regular Rate and Rhythm without murmur, gallop or rub. Respiratory: No accessory muscle use or respiratory distress. Lungs are clear to auscultation, no wheezing, rales or rhonchi Chest Wall: no tenderness Back: No midline thoracic or lumbar vertebral tenderness. No CVA tenderness Musculoskeletal: normal ROM, no calf or popliteal tenderness, no lower extremity edema/swelling GI: Abdomen is soft, non-distended. Normal bowel sounds. No masses appreciated. No tenderness to palpation. No rebound, guarding, or rigidity noted. Neurological: A&O x4. No cranial nerve dysfunction observed. No truncal ataxia. Moves all extremities. Sensation intact. Psychiatric: Cooperative and interactive. Normal mood and affect. Rectal exam: The patient have a small anal fissure at 12:00 and the small external hemorrhoid that is not bleeding, no induration no abscess Constitutional Vital Signs, click to edit/add: Last Vital Signs Temp 98.1 F 10/22/24 08:36 Pulse 89 10/22/24 08:36 Resp 20 10/22/24 08:36 BP 106/67 10/22/24 08:36 Pulse Ox 95 10/22/24 08:36 O2 Del Method Room Air 10/22/24 08:36 Course Vital Signs Vital signs: Vital Signs Temperature 98.1 F 10/22/24 08:36 Pulse Rate 89 10/22/24 08:36 Respiratory Rate 20 10/22/24 08:36 Blood Pressure 106/67 10/22/24 08:36 Pulse Oximetry 95 10/22/24 08:36 Oxygen Delivery Method Room Air 10/22/24 08:36 Temperature 98.1 F 10/22/24 08:36 Pulse Rate 89 10/22/24 08:36 Respiratory Rate 20 10/22/24 08:36 Blood Pressure 106/67 10/22/24 08:36 Pulse Oximetry 95 10/22/24 08:36 Oxygen Delivery Method Room Air 10/22/24 08:36 MDM - Abdominal Pain MDM Narrative Medical decision making narrative: Obtain the workup that was done for the patient from [facility] and the CBC chemistry and CAT scan did not show any acute pathology The patient was evaluated in the ER for possible anal fissure and that does not require morphine for pain management as per my assessment The patient requested morphine multiple times and I did explain to her that with her history of constipation morphine will make her constipation worse and with the pain similar to morphine she will need to take other pain medication including local lidocaine as well The patient provided with local lidocaine as well as Anusol with warm sitz bath instructed The patient is to follow up with primary care physician in next 2-3 days or to return to the emergency department should any of the signs or symptoms worsen or new symptoms develop. The patient agrees with the following Diagnosis and Treatment plan and the patient will be discharged home. Lab Data Labs: Lab Results 10/22/24 10/22/24 Range/Units 08:50 09:00 WBC 7.0 (4.0-11.0) 10^3/uL RBC 4.73 (4.20-5.40) 10^6/uL Hgb 14.3 (12.0-16.0) g/dL Hct 44.9 (36.0-48.0) % MCV 94.9 (81.0-99.0) fL MCH 30.2 (26.7-34.0) pg MCHC 31.8 (29.9-35.2) g/dL RDW 13.3 (11.0-15.0) % Plt Count 239 (150-450) 10^3/uL MPV 10.5 (9.5-13.5) fL Neut % (Auto) 65.3 (43.0-75.0) % Lymph % (Auto) 23.5 (20.5-60.0) % [place] % (Auto) 6.3 (1.7-12.0) % Eos % (Auto) 3.6 (0.9-7.0) % Baso % (Auto) 1.0 (0.2-2.0) % Neut # (Auto) 4.6 (1.4-6.5) 10^3/uL Lymph # (Auto) 1.6 (1.2-3.8) 10^3/uL [place] # (Auto) 0.4 (0.3-0.8) 10^3/uL Eos # (Auto) 0.3 (0.0-0.7) 10^3/uL Baso # (Auto) 0.1 (0.0-0.1) 10^3/uL Abs Immat Gran (auto) 0.02 (0.00-0.03) 10^3/uL Imm/Tot Granulo (auto) 0.3 (0.0-0.5) % Sodium 142 (136-145) mmol/L Potassium 4.1 (3.5-5.1) mmol/L Chloride 105 (98-107) mmol/L Carbon Dioxide 28.8 (21.0-32.0) mmol/L Anion Gap 12.3 BUN 20.0 H (7.0-18.0) mg/dL Creatinine 0.91 (0.55-1.02) mg/dL Est GFR ( Amer) >60 (>=60 mL/min/1.73m^2) Est GFR (Non-Af Amer) >60 (>=60 mL/min/1.73m^2) BUN/Creatinine Ratio 22.0 Glucose 92 (74-106) mg/dL Calcium 9.8 (8.5-10.1) mg/dL Total Bilirubin 0.4 (0.2-1.0) mg/dL AST 25 (15-37) U/L ALT 22 (14-59) U/L Alkaline Phosphatase 138 H (46-116) U/L Total Protein 7.7 (6.4-8.2) g/dL Albumin 4.1 (3.4-5.0) g/dL Globulin 3.6 g/dL Albumin/Globulin Ratio 1.1 Urine Color Yellow (YELLOW) Urine Clarity Sl cloudy (CLEAR) Urine pH 5.5 (5.0-9.0) Ur Specific [place] 1.015 (1.005-1.025) Urine Protein Negative (NEG/TRACE) mg/dL Urine Glucose (UA) >=1000 A (NEGATIVE) mg/dL Urine Ketones Negative (NEGATIVE) mg/dL Urine Occult Blood Large A (NEGATIVE) Urine Nitrite Negative (NEGATIVE) Urine Bilirubin Negative (NEGATIVE) Urine Urobilinogen 0.2 (0.2-1.0) EU/dL Ur Leukocyte Esterase Negative (NEGATIVE) Urine RBC 75-100 A (0-2) #/HPF Urine WBC 0-2 A (NONE SEEN) #/HPF Ur Squamous Epith Cells Few A (NONE/RARE) #/LPF Urine Crystals None seen (None Seen) #/HPF Urine Bacteria Trace A (NONE SEEN) #/HPF Urine Casts None seen (NONE SEEN) #/LPF Urine Mucus None seen (NONE SEEN) Ur Culture Indicated? No Urine HCG, Qual Negative (NEGATIVE) Discharge Plan Discharge Chief Complaint: Abdominal Pain Clinical Impression: Anal fissure Patient Disposition: Home, Self-Care Time of Disposition Decision: 09:27 Condition: Good Prescriptions / Home Meds: New hydrocortisone acetate [Anucort-HC] 25 mg suppository 25 mg OK BID PRN (Reason: hemorrhoids) Qty: 24 0RF lidocaine [RectiCare] 5 % cream 1 applic topical TID PRN (Reason: pain) Qty: 15 0RF No Action promethazine 25 mg tablet 25 mg PO TID PRN (Reason: nausea and vomiting) oxycodone-acetaminophen [Percocet] 5-325 mg tablet 1 tab PO Q6H PRN (Reason: pain) 3 Days Qty: 15 0RF metoprolol succinate 25 mg tablet extended release 24 hr 25 mg PO BID mounjaro 12.5 mg IM .weekly ezetimibe 10 mg tablet 10 mg PO DAILY clopidogrel [Plavix] 75 mg tablet 75 mg PO DAILY aspirin 81 mg tablet,delayed release (DR/EC) 81 mg PO DAILY atorvastatin 80 mg tablet 80 mg PO QPM Jardiance 25 mg tablet 25 mg PO DAILY alprazolam [Xanax] 1 mg tablet 0.5 mg PO TID losartan 25 mg tablet 25 mg PO DAILY hydroxyzine pamoate 25 mg capsule 25 mg PO BID PRN (Reason: anxiety) omeprazole 20 mg capsule,delayed release(DR/EC) 20 mg PO DAILY PRN (Reason: stomach upset) metformin 1,000 mg tablet 1,000 mg PO BID gabapentin 400 mg capsule 800 mg PO TID oxycodone-acetaminophen [Percocet] 5-325 mg tablet 1 tab PO Q6H PRN (Reason: pain) Qty: 6 0RF Rx Instructions: DX. R10.9 Print Language: Luxembourgish Instructions: Anal Fissure (ED), Sitz Bath (DC) Referrals: Yanet Junior FURNA[facility] RELINER [Primary Care Provider, Family Practice] - 1 week Discharge Date/Time: 10/22/24 09:59
[2024-10-22] MEDS: LIDOCAINE 2% JELLY 10 ML UR (09:40)
== END 2024-10-22 09:59 | disposition home or self-care (01) ==
PROVIDERS: Emergency Provider Emergency Medicine; PCP Nurse Practitioner
DX: K60.2 Anal fissure, unspecified (principal); R10.2 Pelvic and perineal pain; K62.89 Other specified diseases of anus and rectum
CPT/HCPCS: 36415; 80053; 81001; 84703; 85025; 99284